=== PATIENT | male | born 1960 | race Caucasian/White ===

== ENCOUNTER 2023-06-02 08:55 | Outpatient (OUT) | payer SELFPAY ==
[2023-06-02 09:45] LABS: Hematocrit 50.1 % (42.0-54.0); Hemoglobin 16.5 g/dL (14.0-18.0)
[2023-06-02 14:01] LABS: Prostate Specific Antigen Scrn 1.27 ng/mL (<=4.00)
[2023-06-03 09:10] LABS: Testosterone 333 ng/dL (264-916)
== END 2023-06-02 08:56 | disposition home or self-care (01) ==
PROVIDERS: PCP Family Medicine; Visit Provider Urology
DX: E29.1 Testicular hypofunction (principal); Z12.5 Encounter for screening for malignant neoplasm of prostate
CPT/HCPCS: 36415; 84403; 85014; 85018; G0103

== ENCOUNTER 2023-08-06 10:27 | Outpatient (OUT) | payer OTHER, SELFPAY ==
[2023-08-06 11:34] LABS: Estimated Average Glucose 243 mg/dL; Glycohemoglobin A1C 10.1 % (4.5-6.2)
== END 2023-08-06 10:28 | disposition home or self-care (01) ==
LOC: LAB 10:29
PROVIDERS: PCP Family Medicine; Visit Provider Family Medicine
DX: E11.65 Type 2 diabetes mellitus with hyperglycemia (principal)
CPT/HCPCS: 36415; 83036

== ENCOUNTER 2023-12-01 06:28 | Outpatient (OUT) | payer OTHER, SELFPAY ==
--- OUTSIDE RECORDS SUMMARY | 2023-12-01 06:32 | XMS_ITS | CCD ---
Author Organization [facility] Care Team Providers Care Softball Coach Name Role Phone UNKNOWN, PROVIDER Unavailable Unavailable DASIA JEFFREY Unavailable Unavailable DASIA JEFFREY Primary Care Physician Unavailable Unavailable Dasia Jeffrey Unavailable Dasia Jeffrey Unavailable DR DASIA JEFFREY Admitting Unavailable JEFFREY, DR DASIA Yost Attending Unavailable JEFFREY, DR DASIA Yost Consulting Unavailable WOJCIECH, DR DASIA Yost Primary Care Unavailable JEFFREY, DR DASIA Yost Admitting Unavailable JEFFREY, DR DASIA Yost Attending Unavailable JEFFREY, DR DASIA Yost Consulting Unavailable JEFFREY, DR DASIA Yost Primary Care Unavailable JEFFREY, DR DASIA Yost Primary Care Unavailable LUE .LETY Admitting Unavailable LUE .LETY Attending Unavailable LUE .LETY Consulting Unavailable WOJCIECH, DR DASIA Yost Primary Care Unavailable LUE .LETY Admitting Unavailable LUE .LETY Attending Unavailable LUE .LETY Consulting Unavailable WOJCIECH, DR DASIA Yost Admitting Unavailable JEFFREY, DR DASIA Yost Attending Unavailable JEFFREY, DR DASIA Yost Consulting Unavailable WOJCIECH, DR DASIA Yost Primary Care Unavailable MARKER ., DR EDDY Admitting Unavailable MARKER ., DR EDDY Attending Unavailable MARKER ., DR EDDY Consulting Unavailable WOJCIECH, DR DASIA Yost Primary Care Unavailable CARLY PRESCOTT Consulting Unavailable GILDARDO .DR WILLIAMSON Consulting Unavailable WOJCIECH, DR DASIA Yost Primary Care Unavailable SHAIKH Aden BRICEÑO Admitting Unavailable SHAIKH Aden BRICEÑO Attending Unavailable CORINNE .QUENTIN Consulting UnavailTEVIN Vigil Consulting Unavailable SHAIKH Aden BRICEÑO Consulting Unavailable NAM CANO Admitting Unavailable WOJCIECH, DR DASIA Yost Primary Care Unavailable NAM CANO Attending Unavailable Gabino Deluca Attending Unavailable Gabino Deluca Attending Unavailable Gabino Deluca Referring Unavailable Dr. Dasia Jeffrey Primary Care Unav ailable Lue, Lety M. Attending Unavailable JIMMY, HARRY E Attending Unavailable JIMMY, HARRY E Attending Unavailable Lue, Lety M. Attending Unavailable Lue, Lety M. Attending Unavailable Lue, Lety M. Attending Unavailable Lue, Lety M. Attending Unavailable Lue, Lety M. Attending Unavailable Lue, Lety M. Attending Unavailable Lue, Lety M. Attending Unavailable Lue, Lety M. Attending Unavailable Lue, Lety M. Attending Unavailable Lue, Lety M. Attending Unavailable Lue, Lety M. Attending Unavailable Lue, Lety M. Attending Unavailable Lue, Lety M. Attending Unavailable Lue, Lety M. Attending Unavailable Lue, Lety M. Attending Unavailable Lue, Lety M. Attending Unavailable Lue, Lety M. Attending Unavailable Lue, Lety M. Admitting Unavailable Lue, Lety M. Attending Unavailable Lue, Lety M. Admitting Unavailable Lue, Lety M. Attending Unavailable Lue, Lety M. Attending Unavailable Lue, Lety M. Attending Unavailable Lue, Lety M. Attending Unavailable Lue, Lety M. Attending Unavailable JIMMY, HARRY E Attending Unavailable Lue, Lety M. Attending Unavailable Lue, Lety M. Attending Unavailable JIMMY, HARRY E Attending Unavailable Lue, Lety M. Attending Unavailable Lue, Lety M. Attending Unavailable Allergies Allergy Classification Reported Allergen(s) Allergy Type Date of Onset Reaction(s) Facility (20 sources) metFORMIN; Translations: [metformin] Drug Allergy 5 Stomach cramps (finding), Diarrhea (finding) [facility] (9 sources) Vancomycin Drug Allergy 4 Unknown, Unknown Reaction [facility] (1 source) metFORMIN Drug Allergy [facility] (1 source) Vancomycin Drug Allergy 8 [facility] (5 sources) Allergies Reconciled Propensity to adverse reactions 1 Unknown [facility] Other (5 sources) patient allergy list reviewed by nurse or physicia Propensity to adverse reactions 9 Comment:Done [facility] Other Medications Current Medications Medication Drug Class(es) Dates Sig (Normalized) Sig (Original) amLODIPine 5 mg oral tablet (20 sources) Dihydropyridine Calcium Channel Donovan Start: 05-15-2019 take 1 mg by mouth once daily amLODIPine 5 mg Tab mg tab(s), Oral, Daily, Refills(s) 0 Start Date: 07/03/21 Status: Ordered ascorbic acid 250 mg oral tablet (3 sources) Vitamin C Start: 07-03-2021 take 1 mg by mouth once daily Vitamin C 250 mg oral tablet mg tab(s), Oral, Daily, Refills(s) 0 Start Date: 07/03/21 Status: Ordered aspirin 162 mg oral tablet (10 sources) Platelet Aggregation Inhibitor, Nonsteroidal Anti-inflammatory Drug Start: 05-13-2019 take 162 mg by mouth once daily Aspirin Active 162 MG PO Daily May 13, 2019 12:00am take 2 tablets by [facility] every twenty-four hours Aspirin 81 MG 2 tablets Orally Once a day Active take 2 tablets by mouth once louise ly Aspirin EC Low Dose 81 MG Oral Tablet Delayed Release TAKE 2 TABLET Daily Quantity: 90 Refills: 3 Ordered: 22-Dec-2022 Gabino Deluca DO Active atorvastatin 10 mg oral tablet (20 sources) HMG-CoA Reductase Inhibitor Start: 07-03-2021 take 1 mg by mouth once daily atorvastatin 10 mg Tab mg tab(s), Oral, Daily, Refills(s) 0 Start Date: 07/03/21 Status: Ordered biotin 1 mg oral tablet (20 sources) Start: 07-03-2021 take 1 tablet by mouth once daily biotin 1000 mcg oral tablet 1,000 mcg = 1 tab(s), Oral, Daily, # 30 tab(s), Refills(s) 0 Start Date: 07/03/21 Status: Ordered carvedilol 12.5 mg oral tablet (20 sources) alpha-Adrenergic Donovan, beta-Adrenergic Donovan Start: 05-13-2019 take 1 mg by mouth twice daily carvedilol 12.5 mg Tab mg tab(s), Oral, BID, Refills(s) 0 Start Date: 07/03/21 Status: Ordered Citalopram (20 sources) Serotonin Reuptake Inhibitor Start: 07-03-2021 citalopram Oral, Daily, Refills(s) 0 Start Date: 07/03/21 Status: Ordered Start: 05-13-2019 take 1 tablet by jazmín th at bedtime Citalopram Active 1 TAB PO Bedtime May 13, 2019 12:00am take 1 tablet by jazmín th once daily Citalopram Hydrobromide 40 MG TAKE 1 TABLET BY MOUTH EVERY DAY for 90 Active empagliflozin 25 mg oral tablet (18 sources) Sodium-Glucose Cotransporter 2 Inhibitor Start: 04-01-2023 Jardiance 25 mg oral tablet Refills(s) 0 Start Date: 06/09/23 Status: Ordered ertugliflozin 15 mg oral tablet (20 sources) Start: 07-03-2021 take 1 mg by mouth once daily in the morning Steglatro 15 mg oral tablet mg tab(s), Oral, qAM, Refills(s) 0 Start Date: 07/03/21 Status: Ordered glipiZIDE (20 sources) Sulfonylurea Start: 11-05-2023 take 1 tablet by mouth once daily Glipizide Active 0 .ROUTE .COMPLEX 90 November 05, 2023 4:00pm TAKE 1 TABLET BY MOUTH EVERY DAY Start: 07-03-2021 take 1 mg by mouth once daily glipiZIDE 5 mg Tab mg tab(s), Oral, Daily, Refills(s) 0 Start Date: 07/03/21 Status: Ordered Start: 05-13-2019 End: 11-05-2023 take 1 tablet by mouth once daily Glipizide Discontinued 1 TAB PO Daily May 13, 2019 12:00am November 05, 2023 4:00pm take 1 tablet by jazmín th once daily glipiZIDE ER 10 MG TAKE 1 TABLET BY MOUTH EVERY DAY for 90 Active 12 hr hyoscyamine sulfate 0.375 mg extended release oral tablet (9 sources) Start: 12-03-2020 take 1 tablet by mouth every twelve hours Hyoscyamine Sulfate ER 0.375 MG 1 tablet Orally every 12 hrs for 30 day(s) Nov, Active lisinopril 5 mg oral tablet (20 sources) Angiotensin Converting Enzyme Inhibitor Start: 07-03-2021 take 1 mg by mouth once daily lisinopril 5 mg Tab mg tab(s), Oral, Daily, Refills(s) 0 Start Date: 07/03/21 Status: Ordered Start: 05-13-2019 End: 10-20-2023 take 5 mg by mouth twice daily Lisinopril Active 5 MG PO Twice daily 180 October 20, 2023 10:49am omeprazole 40 mg delayed release oral capsule (20 sources) Proton Pump Inhibitor Start: 11-26-2023 End: 11-30-2023 take 1 capsule by mouth once daily before mealtime Omeprazole Active 0 .ROUTE .COMPLEX 30 November 30, 2023 9:17am TAKE 1 CAPSULE BY MOUTH EVERY DAY BEFORE A MEAL Start: 07-03-2021 End: 11-26-2023 take 40 mg by mouth once daily Omeprazole Discontinued 40 MG PO Daily November 25, 2023 12:00am November 26, 2023 12:09pm omeprazole 40 mg Cap-DR (3 sources) Start: 07-03-2021 take 1 mg by mouth once daily omeprazole 40 mg Cap-DR mg cap(s), Oral, Daily, Refills(s) 0 Start Date: 07/03/21 Status: Ordered One Touch Glucometer (8 sources) Start: 11-25-2022 One Touch Glucometer use as directed Nov, Active pioglitazone 15 mg oral tablet (9 sources) Peroxisome Proliferator Receptor alpha Agonist, Peroxisome Proliferator Receptor gamma Agonist, Thiazolidinedione Start: 12-09-2022 take 1 tablet by mouth every twenty-four hours Actos 15 MG 1 tablet Orally Once a day for 30 days Dec, Active take 1 tablet by jazmín th every twenty-four hours Pioglitazone HCl 30 MG 1 tablet Orally Once a day for 30 days Active testosterone cypionate 200 mg/ml injectable solution (13 sources) Androgen Start: 06-09-2023 inject 200 mg by intramuscular injection every other week Depo-Testosterone 200 mg/mL intramuscular solution 200 mg, IntraMuscular, q2wk, # 10 mL, Refills(s) 5, Pharmacy: [facility]/pharmacy #[id number], 174, cm, 06/09/23 7:58:00 EDT, Height/Length Dosing, 143, kg, 06/09/23 7:58:00 EDT, Weight Dosing Start Date: 06/09/23 Status: Ordered testosterone cypionate 200 mg/mL IM Erin (15 sources) Start: 03-30-2023 inject 150 mg by intramuscular injection every other week testosterone cypionate 200 mg/mL IM Erin 150 mg, IntraMuscular, q2wk, # 10 mL, Refills(s) 0, Pharmacy: [facility]/pharmacy #[id number], 175, cm, 03/03/23 9:34:00 EDT, Height/Length Dosing, 144.7, kg, 03/03/23 9:34:00 EDT, Weight Dosing Start Date: 03/30/23 Status: Ordered Start: 11-25-2022 inject 150 mg by int ramuscular injection every other week testosterone cypionate 200 mg/mL IM Erin 150 mg, IntraMuscular, q2wk, # 10 mL, Refills(s) 0 Start Date: 11/25/22 Status: Ordered testosterone cypionate 200 mg/mL intramuscular solution (11 sources) Start: 05-27-2022 inject 200 mg by intramuscular injection every other week testosterone cypionate 200 mg/mL intramuscular solution 200 mg = 1 mL, IntraMuscular, q2wk, # 1 mL, Refills(s) 5, Pharmacy: [facility]/pharmacy #[id number], 175, cm, 05/27/22 8:55:00 EDT, Height/Length Dosing, 142.9, kg, 05/27/22 8:55:00 EDT, Weight Dosing Start Date: 05/27/22 Status: Ordered Start: 01-05-2022 testosterone c ypionate 200 mg/mL intramuscular solution 200 mg = 1 mL, IntraMuscular, q4wk, # 1 mL, Refills(s) 5, Pharmacy: [facility]/pharmacy #[id number], 175, cm, 11/11/21 8:23:00 EST, Height/Length Dosing, 142.9, kg, 11/11/21 8:23:00 EST, Weight Dosing Start Date: 01/05/22 Status: Ordered Start: 07-07-2021 testosterone c ypionate 200 mg/mL intramuscular solution 200 mg = 1 mL, IntraMuscular, q4wk, # 1 mL, Refills(s) 5, Pharmacy: [facility]/pharmacy #[id number], 175, cm, 07/03/21 9:23:00 EDT, Height/Length Dosing, 136.5, kg, 07/03/21 9:23:00 EDT, Weight Dosing Start Date: 07/07/21 Status: Ordered Testosterone Cypionate 200 mg/mL intramuscular solution (8 sources) Start: 09-23-2022 inject 100 mg by intramuscular injection every other week Testosterone Cypionate 200 mg/mL intramuscular solution 100 mg, IntraMuscular, q2wk, # 10 mL, Refills(s) 0, Pharmacy: [facility]/pharmacy #[id number], 175, megan, 09/09/22 10:01:00 EST, Height/Length Dosing, 139, kg, 09/09/22 10:01:00 EST, Weight Dosing Start Date: 09/23/22 Status: Ordered Vitamin B12 1000 mcg Tab (20 sources) Start: 07-03-2021 take 1 ug by mouth once daily Vitamin B12 1000 mcg Tab mcg tab(s), Oral, Daily, Refills(s) 0 Start Date: 07/03/21 Status: Ordered Vitamin C 250 mg oral tablet (20 sources) Start: 07-03-2021 take 1 mg by mouth once daily Vitamin C 250 mg oral tablet mg tab(s), Oral, Daily, Refills(s) 0 Start Date: 07/03/21 Status: Ordered Completed/Discontinued Medications Medication Drug Class(es) Dates Sig (Normalized) Sig (Original) sildenafil 100 mg oral tablet (7 sources) Phosphodiesterase 5 Inhibitor Start: 03-17-2023 take 1 tablet by mouth every twenty-four hours as needed Viagra 100 mg Tab 100 mg = 1 tab(s), Oral, As Directed, PRN for erectile dysfunction, 1 hour before sexual activity. Start with 1/2 tablet. Not to exceed 1 tab (100 mg) in 24 hours, # 30 tab(s), Refills(s) 5, Pharmacy: [facility] #[id number], 175, cm, 03/03/23 9:34... Start Date: 03/17/23 Status: Ordered Start: 03-03-2023 take 1 tablet by jazmín th every twenty-four hours as needed Viagra 100 mg Tab 100 mg = 1 tab(s), Oral, As Directed, PRN for erectile dysfunction, 1 hour before sexual activity. Start with 1/2 tablet. Not to exceed 1 tab (100 mg) in 24 hours, # 30 tab(s), Refills(s) 5, Pharmacy: [facility]/pharmacy #[id number], 175, cm, 03/03/23 9:34:00 EDT,... Start Date: 03/03/23 Status: Ordered tadalafil 20 mg oral tablet (13 sources) Phosphodiesterase 5 Inhibitor Start: 09-15-2023 take 1 tablet by mouth every hour as needed, then take 1 tablet by mouth every twenty-four hours as needed Cialis 20 mg Tab 20 mg = 1 tab(s), Oral, As Directed, PRN for erectile dysfunction, Take 1 tab 1 hour prior to intercourse. Do not exceed 20mg within 24 hours., # 30 tab(s), Refills(s) 3, Pharmacy: [facility] #[id number], 174, cm, 09/15/23 8:08:00 EST, Height/Length Dosing, 143, kg, 09/15/23 8:08:00 EST, Weight Dosing Start Date: 09/15/23 Status: Ordered Start: 06-09-2023 Cialis 20 mg T ab 20 mg = 1 tab(s), Oral, As Directed, PRN for erectile dysfunction, Do not exceed 20mg within 24 hours., # 30 tab(s), Refills(s) 3, Pharmacy: [facility]/pharmacy #[id number], 174, cm, 06/09/23 7:58:00 EDT, Height/Length Dosing, 143, kg, 06/09/23 7:58:00 EDT, Weight Dosing Start Date: 06/09/23 Status: Ordered Problems Active Problems Problem Classification Problem Date Documented Date Episodic/Chronic Abdominal pain (20 sources) Lower abdominal pain; Translations: [Lower abdominal pain, unspecified] Onset: 08-04-2022 Episodic Acquired foot deformities (5 sources) Acquired deformity of toe of right foot; Translations: [Other deformities of toe(s) (acquired), right foot] Episodic Cardiac dysrhythmias (5 sources) Cardiac arrhythmia; Translations: [Cardiac arrhythmia, unspecified] Chronic Chronic kidney disease (5 sources) Chronic kidney disease stage 3; Translations: [Chronic kidney disease, stage 3 unspecified] Onset: 04-20-2018 Chronic Chronic obstructive pulmonary disease and bronchiectasis (5 sources) Bronchitis; Translations: [Bronchitis, not specified as acute or chronic] Episodic Chronic ulcer of skin (20 sources) Chronic ulcer of foot; Translations: [Non-pressure chronic ulcer of other part of unspecified foot with unspecified severity] Onset: 03-08-2018 Chronic Congestive heart failure; nonhypertensive (9 sources) Heart failure, unspecified; Translations: [Heart failure] Onset: 04-15-2022 Chronic Coronary atherosclerosis and other heart disease (20 sources) Atherosclerotic heart disease of grayling coronary artery without angina pectoris; Translations: [Double coronary vessel disease] Onset: 12-12-2014 05-13-2019 Chronic Coronary atherosclerosis and other heart disease (1 source) Coronary atherosclerosis and other heart disease Onset: 07-14-2018 Diabetes mellitus with complications (20 sources) Type 2 diabetes mellitus with ulcer; Translations: [Type 2 diabetes mellitus with foot ulcer] Onset: 04-20-2018 Chronic Diabetes mellitus without complication (20 sources) Diabetes mellitus; Translations: [Diabetes mellitus without mention of complication, type II or unspecified type, not stated as uncontrolled] Onset: 03-08-2018 05-13-2019 Chronic Disorders of lipid metabolism (15 sources) Hyperlipidemia; Translations: [Other and unspecified hyperlipidemia] Onset: 01-26-2022 Chronic Esophageal disorders (7 sources) Gastroesophageal reflux disease without esophagitis; Translations: [Gastro-esophageal reflux disease without esophagitis] 11-30-2023 Chronic Essential hypertension (20 sources) Essential hypertension; Translations: [Unspecified essential hypertension] Onset: 07-13-2014 Chronic Essential hypertension (1 source) Essential hypertension Onset: 07-14-2018 Genitourinary symptoms and ill-defined conditions (20 sources) Nocturia; Translations: [Asymptomatic microscopic hematuria] Onset: 08-03-2022 07-03-2021 Episodic Hyperplasia of prostate (20 sources) Benign prostatic hypertrophy with outflow obstruction; Translations: [Benign prostatic hyperplasia with lower urinary tract symptoms] Onset: 08-19-2022 Chronic Malaise and fatigue (10 sources) Fatigue; Translations: [Other fatigue] Onset: 09-15-2018 Episodic Mood disorders (14 sources) Depression; Translations: [Major depressive disorder, single episode, unspecified] Onset: 05-01-2022 Chronic Nonspecific chest pain (1 source) Chest discomfort; Translations: [Other chest pain] 05-13-2019 Episodic Osteoarthritis (5 sources) Localized, primary osteoarthritis of the ankle and/or foot; Translations: [Primary osteoarthritis, right ankle and foot] Chronic Other circulatory disease (5 sources) Elevated blood-pressure reading without diagnosis of hypertension; Translations: [Elevated blood-pressure reading, without diagnosis of hypertension] Episodic Other connective tissue disease (5 sources) Disorder of musculoskeletal system; Translations: [Other symptoms and signs involving the musculoskeletal system] Episodic Other connective tissue disease (5 sources) Pain in left arm; Translations: [Pain in left arm] Episodic Other connective tissue disease (5 sources) Pain in right foot; Translations: [Pain in right foot] Episodic Other diseases of veins and lymphatics (1 source) Lymphedema, not elsewhere classified; Translations: [LYMPHEDEMA NOT ELSEWHERE CLASSIFIED] Onset: 01-26-2022 Chronic Other diseases of veins and lymphatics (13 sources) Peripheral venous insufficiency; Translations: [Venous insufficiency (chronic) (peripheral)] Onset: 04-20-2018 Episodic Other diseases of veins and lymphatics (2 sources) Venous insufficiency (chronic) (peripheral); Translations: [VENOUS INSUFF CHRONIC PERIPHERAL] Onset: 05-01-2022 Episodic Other endocrine disorders (20 sources) Testicular hypofunction; Translations: [Testicular hypofunction] Onset: 01-06-2022 Chronic Other endocrine disorders (20 sources) Male hypogonadism 09-02-2022 Chronic Other endocrine disorders (5 sources) Disorder of endocrine system; Translations: [Endocrine disorder, unspecified] Episodic Other injuries and conditions due to external causes (5 sources) History of fall; Translations: [History of falling] Episodic Other male genital disorders (20 sources) Male erectile dysfunction, unspecified; Translations: [Erectile dysfunction] Onset: 08-19-2022 Chronic Other nutritional; endocrine; and metabolic disorders (16 sources) Body mass index 40+ - severely obese; Translations: [Body Mass Index 40.0-44.9, adult] Onset: 04-20-2018 Chronic Other nutritional; endocrine; and metabolic disorders (11 sources) Morbid obesity; Translations: [Morbid obesity] 05-14-2019 Chronic Other nutritional; endocrine; and metabolic disorders (1 source) Morbid (severe) obesity due to excess calories; Translations: [MORBID SEVERE OBES D/T EXCESS DAVID] Onset: 08-07-2022 Chronic Other nutritional; endocrine; and metabolic disorders (1 source) Body mass index (BMI) 45.0-49.9, adult; Translations: [BODY MASS INDEX BMI 45.0-49.9 ADULT] Onset: 08-07-2022 Chronic Other nutritional; endocrine; and metabolic disorders (5 sources) Obesity; Translations: [Obesity, unspecified] Onset: 07-13-2014 Chronic Other screening for suspected conditions (not mental disorders or infectious disease) (20 sources) Decreased testosterone level ; Translations: [Blood chemistry abnormal] Onset: 03-03-2022 07-03-2021 Episodic Other skin disorders (5 sources) Callosity; Translations: [Corns and callosities] Episodic Residual codes; unclassified (5 sources) Obstructive sleep apnea syndrome; Translations: [Obstructive sleep apnea] Onset: 03-08-2018 Chronic Residual codes; unclassified (1 source) Sleep apnea; Translations: [Sleep apnea, unspecified] 05-14-2019 Chronic Residual codes; unclassified (8 sources) Edema; Translations: [Localized edema] Episodic Residual codes; unclassified (6 sources) Localized edema; Translations: [Localized edema] Onset: 02-24-2022 Episodic Residual codes; unclassified (5 sources) Tobacco user; Translations: [Tobacco use] Episodic Screening and history of mental health and substance abuse codes (20 sources) Ex-smoker; Translations: [Personal history of tobacco use] Onset: 04-20-2018 07-03-2021 Episodic Comment on above: quit 2012 1ppd; Spondylosis; intervertebral disc disorders; other back problems (5 sources) Neck pain; Translations: [Cervicalgia] Episodic Superficial injury; contusion (5 sources) Superficial foreign body, right foot, initial encounter; Translations: [Superficial foreign body, right foot, initial encounter] Episodic Unclassified (2 sources) Athscl heart disease of grayling coronary artery w/o ang pctrs / I25.10(ICD-9) Onset: 07-14-2018 Unclassified (20 sources) Asymptomatic microscopic hematuria 11-11-2021 Unclassified (1 source) CONTACT W/AND (SUSP) EXPOS COVID-19; Translations: [CONTACT W/AND (SUSP) EXPOS COVID-19] Onset: 05-01-2022 Varicose veins of lower extremity (5 sources) Pain co-occurrent and due to varicose veins of bilateral legs; Translations: [Varicose veins of bilateral lower extremities with pain] Episodic Viral infection (1 source) COVID-19; Translations: [COVID-19] Onset: 08-07-2022 Past or Other Problems Problem Classification Problem Date Documented Da te Episodic/Chronic Acute and unspecified renal failure (6 sources) Acute kidney failure, unspecified; Translations: [Acute renal failure syndrome] Onset: 03-15-2018 Episodic Bacterial infection; unspecified site (5 sources) Bacterial infectious disease; Translations: [Bacterial infection, unspecified, in conditions classified elsewhere and of unspecified site] Onset: 04-20-2018 Episodic Conditions associated with dizziness or vertigo (5 sources) Dizziness and giddiness; Translations: [Dizziness and giddiness] Onset: 04-24-2019 Episodic Coronary atherosclerosis and other heart disease (1 source) Presence of coronary angioplasty implant and graft; Translations: [PRESENCE COR ANGPLSTY IMPLANT AND GRAFT] Onset: 08-07-2022 Episodic Fluid and electrolyte disorders (1 source) Dehydration; Translations: [DEHYDRATION] Onset: 08-07-2022 Episodic Heart valve disorders (5 sources) O/E - cardiac murmur; Translations: [Cardiac murmur, unspecified] Onset: 09-15-2018 Episodic Nausea and vomiting (1 source) Nausea with vomiting, unspecified; Translations: [NAUSEA WITH VOMITING UNSPECIFIED] Onset: 08-07-2022 Episodic Nonmalignant breast conditions (5 sources) Breast lump; Translations: [Unspecified lump in unspecified breast] Onset: 12-12-2014 Episodic Other aftercare (1 source) alf (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; Translations: [DETENTION CURRENT USE OF ASPIRIN] Onset: 08-07-2022 Episodic Other aftercare (1 source) 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 drugs; Translations: [PARTS ANALYST USE ORAL HYPOGLYCEMIC DX] Onset: 08-07-2022 Episodic Other aftercare (1 source) Other senior living (current) drug therapy; Translations: [OTH DETENTION CURRENT DRUG THERAPY] Onset: 05-01-2022 Episodic Other gastrointestinal disorders (1 source) Diarrhea, unspecified; Translations: [DIARRHEA UNSPECIFIED] Onset: 08-07-2022 Episodic Other gastrointestinal disorders (5 sources) Diarrhea; Translations: [Diarrhea, unspecified] Onset: 01-04-2014 Episodic Other lower respiratory disease (1 source) Personal history of pneumonia (recurrent); Translations: [PERSONAL HX OF PNEUMONIA RECURRENT] Onset: 08-07-2022 Episodic Other skin disorders (1 source) Nail dystrophy; Translations: [NAIL DYSTROPHY] Onset: 01-26-2022 Episodic Other skin disorders (1 source) Corns and callosities; Translations: [CORNS AND CALLOSITIES] Onset: 01-26-2022 Episodic Other skin disorders (1 source) Xerosis cutis; Translations: [XEROSIS CUTIS] Onset: 01-26-2022 Episodic Other skin disorders (5 sources) Hypertrophic condition of skin; Translations: [Other hypertrophic disorders of the skin] Onset: 10-26-2013 Episodic Septicemia (except in labor) (2 sources) Sepsis, unspecified organism; Translations: [Severe sepsis without septic shock] Onset: 05-01-2022 Episodic Skin and subcutaneous tissue infections (14 sources) Cellulitis of right lower limb; Translations: [Cellulitis and abscess of buttock] Onset: 10-02-2014 Episodic Results Test Name Value Interpretation Reference Range Facil ity Ambulatory Visit Summaryon 0 11-30-2023 Ambulatory Visit Summary JOHNATHAN AMBROSIO :1960 Visit Date:11/30/2023 Ambulatory Visit Instructions Your Diagnosis Hypogonadism male Your Care Team Attending Physician - JIMMY GRIFFITH, HARRY Yost Primary Care Physician - DASIA JEFFREY MD This Is Your Medications List amlodipine (amLODIPine 5 mg Tab) ascorbic acid (Vitamin C 250 mg oral tablet) atorvastatin (atorvastatin 10 mg Tab) biotin (biotin 1000 mcg oral tablet) carvedilol (carvedilol 12.5 mg Tab) citalopram cyanocobalamin (Vitamin B12 1000 mcg Tab) empagliflozin (Jardiance 25 mg oral tablet) ertugliflozin (Steglatro 15 mg oral tablet) glipiZIDE (glipiZIDE 5 mg Tab) lisinopril (lisinopril 5 mg Tab) omeprazole (omeprazole 40 mg Cap-DR) tadalafil (Cialis 20 mg Tab) testosterone (Depo-Testosterone 200 mg/mL intramuscular solution) Procedures Performed Aortic stent, Big toe, Tonsillectomy. What to do next Scheduled Follow-Up Appointments Wednesday 8:30 AM EDT With: Where: [facility] [address] [place] [address]- \.br\ Medications\.br\ What How Much When Why Instructions\.br\ Unchanged amlodipine (amLODIPine 5 mg Tab) By Mouth Every day\.br\ Unchanged ascorbic acid (Vitamin C 250 mg oral tablet) By Mouth Every day\.br\ Unchanged atorvastatin (atorvastatin 10 mg Tab) By Mouth Every day\.br\ Unchanged biotin (biotin 1000 mcg oral tablet) 1 Tablets By Mouth Every day\.br\ Unchanged carvedilol (carvedilol 12.5 mg Tab) By Mouth 2 times a day\.br\ Unchanged citalopram By Mouth Every day\.br\ Unchanged cyanocobalamin (Vitamin B12 1000 mcg Tab) By Mouth Every day\.br\ Unchanged empagliflozin (Jardiance 25 mg oral tablet)\.br\ Unchanged ertugliflozin (Steglatro 15 mg oral tablet) By Mouth Once a day (in the morning)\.br\ Unchanged glipiZIDE (glipiZIDE 5 mg Tab) By Mouth Every day\.br\ Unchanged lisinopril (lisinopril 5 mg Tab) By Mouth Every day\.br\ Unchanged omeprazole (omeprazole 40 mg Cap-DR) By Mouth Every day\.br\ Unchanged tadalafil (Cialis 20 mg Tab) 1 Tablets By Mouth As Directed as needed for for erectile dysfunction Take 1 tab 1 hour prior to intercourse. Do not exceed 20mg within 24 hours. \.br\ Unchanged testosterone (Depo-Testosteron e 200 mg/ mL intramuscular solution) 200 Milligram Intramuscular Every other week Hypogonadism male ED (erectile dysfunction)\.br\ Medications and Immunizations Administered\.br\ Given\.br\ Depo-Testosterone 200 mg/mL intramuscular solution, 200 mg, IntraMuscular. For: Hypogonadism male\.br\ Allergies\.br\ metFORMIN (Stomach cramps, Diarrhea)\.br\ Problems\.br\ Ongoing - Any problem that you are currently receiving treatment for.\.br\ Asymptomatic microscopic hematuria\.br\ BPH without urinary obstruction\.br\ ED (erectile dysfunction)\.br\ Former smoker\.br\ Groin pain\.br\ Hypogonadism male\.br\ Low testosterone\.br\ Nocturia\.br\ Patient Survey\.br\ You may receive a survey via text or e-mail asking about your office visit. Please share your experience with us by completing your survey. We appreciate your feedback and thank you for choosing us for your care.\.br\ \.br\ [facility] Ambulatory Visit Summaryon 0 11-16-2023 Ambulatory Visit Summary JOHNATHAN AMBROSIO :1960 Visit Date:11/16/2023 Ambulatory Visit Instructions Your Diagnosis Hypogonadism male Your Care Team Attending Physician - Carlos LIZAMA, Lety Scott Primary Care Physician - WOJCIECH LIZAMA, DASIA This Is Your Medications List amlodipine (amLODIPine 5 mg Tab) ascorbic acid (Vitamin C 250 mg oral tablet) atorvastatin (atorvastatin 10 mg Tab) biotin (biotin 1000 mcg oral tablet) carvedilol (carvedilol 12.5 mg Tab) citalopram cyanocobalamin (Vitamin B12 1000 mcg Tab) empagliflozin (Jardiance 25 mg oral tablet) ertugliflozin (Steglatro 15 mg oral tablet) glipiZIDE (glipiZIDE 5 mg Tab) lisinopril (lisinopril 5 mg Tab) omeprazole (omeprazole 40 mg Cap-DR) tadalafil (Cialis 20 mg Tab) testosterone (Depo-Testosterone 200 mg/mL intramuscular solution) Procedures Performed Aortic stent, Big toe, Tonsillectomy. What to do next Scheduled Follow-Up Appointments Wednesday 8:00 AM EDT With: Where: [facility] [address] [place] [id number] \.br\ Medications\.br\ What How Much When Why Instructions\.br\ Unchanged amlodipine (amLODIPine 5 mg Tab) By Mouth Every day\.br\ Unchanged ascorbic acid (Vitamin C 250 mg oral tablet) By Mouth Every day\.br\ Unchanged atorvastatin (atorvastatin 10 mg Tab) By Mouth Every day\.br\ Unchanged biotin (biotin 1000 mcg oral tablet) 1 Tablets By Mouth Every day\.br\ Unchanged carvedilol (carvedilol 12.5 mg Tab) By Mouth 2 times a day\.br\ Unchanged citalopram By Mouth Every day\.br\ Unchanged cyanocobalamin (Vitamin B12 1000 mcg Tab) By Mouth Every day\.br\ Unchanged empagliflozin (Jardiance 25 mg oral tablet)\.br\ Unchanged ertugliflozin (Steglatro 15 mg oral tablet) By Mouth Once a day (in the morning)\.br\ Unchanged glipiZIDE (glipiZIDE 5 mg Tab) By Mouth Every day\.br\ Unchanged lisinopril (lisinopril 5 mg Tab) By Mouth Every day\.br\ Unchanged omeprazole (omeprazole 40 mg Cap-DR) By Mouth Every day\.br\ Unchanged tadalafil (Cialis 20 mg Tab) 1 Tablets By Mouth As Directed as needed for for erectile dysfunction Take 1 tab 1 hour prior to intercourse. Do not exceed 20mg within 24 hours. \.br\ Unchanged testosterone (Depo-Testosteron e 200 mg/ mL intramuscular solution) 200 Milligram Intramuscular Every other week Hypogonadism male ED (erectile dysfunction)\.br\ Medications and Immunizations Administered\.br\ Given\.br\ Depo-Testosterone 200 mg/mL intramuscular solution, 200 mg, IntraMuscular. For: Hypogonadism male\.br\ Allergies\.br\ metFORMIN (Stomach cramps, Diarrhea)\.br\ Problems\.br\ Ongoing - Any problem that you are currently receiving treatment for.\.br\ Asymptomatic microscopic hematuria\.br\ BPH without urinary obstruction\.br\ ED (erectile dysfunction)\.br\ Former smoker\.br\ Groin pain\.br\ Hypogonadism male\.br\ Low testosterone\.br\ Nocturia\.br\ Patient Survey\.br\ You may receive a survey via text or e-mail asking about your office visit. Please share your experience with us by completing your survey. We appreciate your feedback and thank you for choosing us for your care.\.br\ \.br\ [facility] Ambulatory Visit Summaryon 0 10-20-2023 Ambulatory Visit Summary JOHNATHAN AMBROSIO :1960 Visit Date:10/20/2023 Ambulatory Visit Instructions Your Diagnosis Hypogonadism male Your Care Team Attending Physician - Carlos LIZAMA, Lety Scott Primary Care Physician - DASIA JEFFREY MD This Is Your Medications List amlodipine (amLODIPine 5 mg Tab) ascorbic acid (Vitamin C 250 mg oral tablet) atorvastatin (atorvastatin 10 mg Tab) biotin (biotin 1000 mcg oral tablet) carvedilol (carvedilol 12.5 mg Tab) citalopram cyanocobalamin (Vitamin B12 1000 mcg Tab) empagliflozin (Jardiance 25 mg oral tablet) ertugliflozin (Steglatro 15 mg oral tablet) glipiZIDE (glipiZIDE 5 mg Tab) lisinopril (lisinopril 5 mg Tab) omeprazole (omeprazole 40 mg Cap-DR) tadalafil (Cialis 20 mg Tab) testosterone (Depo-Testosterone 200 mg/mL intramuscular solution) Procedures Performed Aortic stent, Big toe, Tonsillectomy. What to do next Scheduled Follow-Up Appointments Wednesday 8:00 AM EST With: Where: [facility] [address] [facility] [place] [address] \.br\ Medications\.br\ What How Much When Why Instructions\.br\ Unchanged amlodipine (amLODIPine 5 mg Tab) By Mouth Every day\.br\ Unchanged ascorbic acid (Vitamin C 250 mg oral tablet) By Mouth Every day\.br\ Unchanged atorvastatin (atorvastatin 10 mg Tab) By Mouth Every day\.br\ Unchanged biotin (biotin 1000 mcg oral tablet) 1 Tablets By Mouth Every day\.br\ Unchanged carvedilol (carvedilol 12.5 mg Tab) By Mouth 2 times a day\.br\ Unchanged citalopram By Mouth Every day\.br\ Unchanged cyanocobalamin (Vitamin B12 1000 mcg Tab) By Mouth Every day\.br\ Unchanged empagliflozin (Jardiance 25 mg oral tablet)\.br\ Unchanged ertugliflozin (Steglatro 15 mg oral tablet) By Mouth Once a day (in the morning)\.br\ Unchanged glipiZIDE (glipiZIDE 5 mg Tab) By Mouth Every day\.br\ Unchanged lisinopril (lisinopril 5 mg Tab) By Mouth Every day\.br\ Unchanged omeprazole (omeprazole 40 mg Cap-DR) By Mouth Every day\.br\ Unchanged tadalafil (Cialis 20 mg Tab) 1 Tablets By Mouth As Directed as needed for for erectile dysfunction Take 1 tab 1 hour prior to intercourse. Do not exceed 20mg within 24 hours. \.br\ Unchanged testosterone (Depo-Testosteron e 200 mg/ mL intramuscular solution) 200 Milligram Intramuscular Every other week Hypogonadism male ED (erectile dysfunction)\.br\ Medications and Immunizations Administered\.br\ Given\.br\ Depo-Testosterone 200 mg/mL intramuscular solution, 200 mg, IntraMuscular. For: Hypogonadism male\.br\ Allergies\.br\ metFORMIN (Stomach cramps, Diarrhea)\.br\ Problems\.br\ Ongoing - Any problem that you are currently receiving treatment for.\.br\ Asymptomatic microscopic hematuria\.br\ BPH without urinary obstruction\.br\ ED (erectile dysfunction)\.br\ Former smoker\.br\ Groin pain\.br\ Hypogonadism male\.br\ Low testosterone\.br\ Nocturia\.br\ Patient Survey\.br\ You may receive a survey via text or e-mail asking about your office visit. Please share your experience with us by completing your survey. We appreciate your feedback and thank you for choosing us for your care.\.br\ \.br\ [facility] Ambulatory Visit Summaryon 0 09-29-2023 Ambulatory Visit Summary HEBERT JOHNATHAN Valentino :1960 Visit Date:09/29/2023 Ambulatory Visit Instructions Your Diagnosis ED (erectile dysfunction) Your Care Team Attending Physician - Carlos LIZAMA, Lety Scott Primary Care Physician - WOJCIECH LIZAMA, DASIA This Is Your Medications List amlodipine (amLODIPine 5 mg Tab) ascorbic acid (Vitamin C 250 mg oral tablet) atorvastatin (atorvastatin 10 mg Tab) biotin (biotin 1000 mcg oral tablet) carvedilol (carvedilol 12.5 mg Tab) citalopram cyanocobalamin (Vitamin B12 1000 mcg Tab) empagliflozin (Jardiance 25 mg oral tablet) ertugliflozin (Steglatro 15 mg oral tablet) glipiZIDE (glipiZIDE 5 mg Tab) lisinopril (lisinopril 5 mg Tab) omeprazole (omeprazole 40 mg Cap-DR) tadalafil (Cialis 20 mg Tab) testosterone (Depo-Testosterone 200 mg/mL intramuscular solution) Procedures Performed Aortic stent, Big toe, Tonsillectomy. What to do next Scheduled Follow-Up Appointments Wednesday 10:00 AM EDT With: Lety Gonzalez MD Where: [facility] Ambulatory Visit Summaryon 0 09-15-2023 Ambulatory Visit Summary JOHNATHAN AMBROSIO :1960 Visit Date:09/15/2023 Ambulatory Visit Instructions Your Diagnosis Hypogonadism male ED (erectile dysfunction) BPH without urinary obstruction Tests Performed Urnls Dip Stick Auto w/o Microscopy POC 94844 Your Care Team Attending Physician - Lety Gonzalez MD Primary Care Physician - DASIA JEFFREY MD This Is Your Medications List tadalafil (Cialis 20 mg Tab) Contact prescribing physician if questions or concerns amlodipine (amLODIPine 5 mg Tab) ascorbic acid (Vitamin C 250 mg oral tablet) atorvastatin (atorvastatin 10 mg Tab) biotin (biotin 1000 mcg oral tablet) carvedilol (carvedilol 12.5 mg Tab) citalopram cyanocobalamin (Vitamin B12 1000 mcg Tab) empagliflozin (Jardiance 25 mg oral tablet) ertugliflozin (Steglatro 15 mg oral tablet) glipiZIDE (glipiZIDE 5 mg Tab) lisinopril (lisinopril 5 mg Tab) omeprazole (omeprazole 40 mg Cap-DR) testosterone (Depo-Testosterone 200 mg/mL intramuscular solution) Procedures Performed Aortic stent, Big toe, Tonsillectomy. Discharge Vitals Heart Rate (Peripheral) 75 Blood Pressure 118/77 Height 174 cm Height 69 in Weight 143 kg Weight 314.6 lb BMI 47.23 What to do next Scheduled Follow-Up Appointments Wednesday 8:00 AM EST With: Where: [facility] [address] [place] [address] [place] [address]- \.br\ You Need to Schedule the Following Appointments\.br\ Follow Up with Carlos LIZAMA, Lety Scott, URL, URO When: \.br\ Comments:\.br\ 3 mos w/ PSA, T level, and HCT\.br\ Where:\.br\ [address]br\ [place] [address]-\.br\ [id number]\.br\ You Need to Complete the Following\.br\ Hematocrit, Blood, Routine collect, 09/15/23, Order for future visit, Lab Collect, Hypogonadism male, Print Label By Order Location\.br\ PSA Screen, Total, Blood, Routine collect, *Est. 12/15/23 +/- 21 day(s), Order for future visit, Lab Collect, BPH without urinary obstruction, Print Label By Order Location\.br\ Testosterone Level Total, Blood, Routine collect, *Est. 12/15/23 +/- 21 day(s), Order for future visit, Lab Collect, Hypogonadism male, Print Label By Order Location\.br\ Medications\.br\ What How Much When Why Instructions\.br\ Changed tadalafil (Cialis 20 mg Tab) 1 Tablets By Mouth As Directed as needed for for erectile dysfunction Take 1 tab 1 hour prior to intercourse. Do not exceed 20mg within 24 hours. Pickup at [facility]\.br\ Unchanged amlodipine (amLODIPine 5 mg Tab) By Mouth Every day Contact prescribing physician if questions or concerns \.br\ Unchanged ascorbic acid (Vitamin C 250 mg oral tablet) By Mouth Every day Contact prescribing physician if questions or concerns \.br\ Unchanged atorvastatin (atorvastatin 10 mg Tab) By Mouth Every day Contact prescribing physician if questions or concerns \.br\ Unchanged biotin (biotin 1000 mcg oral tablet) 1 Tablets By Mouth Every day Contact prescribing physician if questions or concerns \.br\ Unchanged carvedilol (carvedilol 12.5 mg Tab) By Mouth 2 times a day Contact prescribing physician if questions or concerns \.br\ Unchanged citalopram By Mouth Every day Contact prescribing physician if questions or concerns \.br\ Unchanged cyanocobalamin (Vitamin B12 1000 mcg Tab) By Mouth Every day Contact prescribing physician if questions or concerns \.br\ Unchanged empagliflozin (Jardiance 25 mg oral tablet) Contact prescribing physician if questions or concerns \.br\ Unchanged ertugliflozin (Steglatro 15 mg oral tablet) By Mouth Once a day (in the morning) Contact prescribing physician if questions or concerns \.br\ Unchanged glipiZIDE (glipiZIDE 5 mg Tab) By Mouth Every day Contact prescribing physician if questions or concerns \.br\ Unchanged lisinopril (lisinopril 5 mg Tab) By Mouth Every day Contact prescribing physician if questions or concerns \.br\ Unchanged omeprazole (omeprazole 40 mg Cap-DR) By Mouth Every day Contact prescribing physician if questions or concerns \.br\ Unchanged testosterone (Depo-Testosteron e 200 mg/ mL intramuscular solution) 200 Milligram Intramuscular Every other week Hypogonadism male ED (erectile dysfunction) Contact prescribing physician if questions or concerns \.br\ Pharmacy Information\.br\ [facility]: [id number], [place] [id number] [phone]\.br\ Test Results\.br\ Urnls Dip Stick Auto w/o Microscopy POC 36352 (09/15/2023)\.br\ Bilirubin Urine Dipstick - Negative\.br\ Blood Urine Dipstick - Trace-intact\.br\ Glucose Urine Dipstick - 3+ 1000 mg/dl\.br\ Ketones Urine Dipstick - Negative\.br\ Leukocytes Urine Dipstick - Negative\.br\ Nitrite Urine Dipstick - Negative\.br\ Protein Urine Dipstick - Negative\.br\ Specific Melbeta Urine Dipstick - 1.015\.br\ Urine Appearance Urine Dipstick - Clear\.br\ Urine Color Urine Dipstick - Yellow\.br\ Urobilinogen Urine Dipstick - Normal 0.2-1 EU/dl\.br\ pH Urine Dipstick - 5.5\.br\ Medications and Immunizations Administered\.br\ Given\.br\ Depo-Testosterone 200 mg/mL intramuscular solution, 200 mg, IntraMuscular. For: Hypogonadism male\.br\ Not Given\.br\ influenza virus vaccine, inactivated, Patient Refuses\.br\ Allergies\.br\ metFORMIN (Stomach cramps, Diarrhea)\.br\ Problems\.br\ Ongoing - Any problem that you are currently receiving treatment for.\.br\ Asymptomatic microscopic hematuria\.br\ BPH without urinary obstruction\.br\ ED (erectile dysfunction)\.br\ Former smoker\.br\ Groin pain\.br\ Hypogonadism male\.br\ Low testosterone\.br\ Nocturia\.br\ Patient Survey\.br\ You may receive a survey via text or e-mail asking about your office visit. Please share your experience with us by completing your survey. We appreciate your feedback and thank you for choosing us for your care.\.br\ Education Materials\.br\ Erectile Dysfunction\.br\ Erectile dysfunction (ED) is the inability to get or keep an erection in order to have sexual intercourse. ED is considered a symptom of an underlying disorder and is not considered a disease. ED may include:\.br\ ? \.br\ Inability to get an erection.\.br\ ? \.br\ Lack of enough hardness of the erection to allow penetration.\.br\ ? \.br\ Loss of erection before sex is finished.\.br\ What are the causes?\.br\ This condition may be caused by:\.br\ ? \.br\ Physical causes, such as:\.br\ ? \.br\ Artery problems. This may include heart disease, high blood pressure, atherosclerosis, and diabetes.\.br\ ? \.br\ Hormonal problems, such as low testosterone.\.br \ ? \.br\ Obesity.\.br\ ? \.br\ Nerve problems. This may include back or pelvic injuries, multiple sclerosis, Parkinson's disease, spinal cord injury, and stroke.\.br\ ? \.br\ Certain medicines, such as:\.br\ ? \.br\ Pain relievers.\.br\ ? \.br\ Antidepressants.\ .br\ ? \.br\ Blood pressure medicines and water pills (diuretics).\.br\ ? \.br\ Cancer medicines.\.br\ ? \.br\ Antihistamines.\. br\ ? \.br\ Muscle relaxants.\.br\ ? \.br\ Lifestyle factors, such as:\.br\ ? \.br\ Use of drugs such as marijuana, cocaine, or opioids.\.br\ ? \.br\ Excessive use of alcohol.\.br\ ? \.br\ Smoking.\.br\ ? \.br\ Lack of physical activity or exercise.\.br\ ? \.br\ Psychological causes, such as:\.br\ ? \.br\ Anxiety or stress.\.br\ ? \.br\ Sadness or depression.\.br\ ? \.br\ Exhaustion.\.br\ ? \.br\ Fear about sexual performance.\.br\ ? \.br\ Guilt.\.br\ What are the signs or symptoms?\.br\ Symptoms of this condition include:\.br\ ? \.br\ Inability to get an erection.\.br\ ? \.br\ Lack of enough hardness of the erection to allow penetration.\.br\ ? \.br\ Loss of the erection before sex is finished.\.br\ ? \.br\ Sometimes having normal erections, but with frequent unsatisfactory episodes.\.br\ ? \.br\ Low sexual satisfaction in either partner due to erection problems.\.br\ ? \.br\ A curved penis occurring with erection. The curve may cause pain, or the penis may be too curved to allow for intercourse.\.br\ ? \.br\ Never having nighttime or morning erections.\.br\ How is this diagnosed?\.br\ This condition is often diagnosed by:\.br\ ? \.br\ Performing a physical exam to find other diseases or specific problems with the penis.\.br\ ? \.br\ Asking you detailed questions about the problem.\.br\ ? \.br\ Doing tests, such as:\.br\ ? \.br\ Blood tests to check for diabetes mellitus or high cholesterol, or to measure hormone levels.\.br\ ? \.br\ Other tests to check for underlying health conditions.\.br\ ? \.br\ An ultrasound exam to check for scarring.\.br\ ? \.br\ A test to check blood flow to the penis.\.br\ ? \.br\ Doing a sleep study at home to [facility] Patient Educationon 09-15-19 24 Patient Education Urology Erectile Dysfunction Erectile dysfunction (ED) is the inability to get or keep an erection in order to have sexual intercourse. ED is considered a symptom of an underlying disorder and is not considered a disease. ED may include: ? Inability to get an erection. ? Lack of enough hardness of the erection to allow penetration. ? Loss of erection before sex is finished. What are the causes? This condition may be caused by: ? Physical causes, such as: ? Artery problems. This may include heart disease, high blood pressure, atherosclerosis, and diabetes. ? Hormonal problems, such as low testosterone. ? Obesity. ? Nerve problems. This may include back or pelvic injuries, multiple sclerosis, Parkinson's disease, spinal cord injury, and stroke. ? Certain medicines, such as: ? Pain relievers. ? Antidepressants. ? Blood pressure medicines and water pills (diuretics). ? Cancer medicines. ? Antihistamines. ? Muscle relaxants. ? Lifestyle factors, such as: ? Use of drugs such as marijuana, cocaine, or opioids. ? Excessive use of alcohol. ? Smoking. ? Lack of physical activity or exercise. ? Psychological causes, such as: ? Anxiety or stress. ? Sadness or depression. ? Exhaustion. ? Fear about sexual performance. ? Guilt. What are the signs or symptoms? Symptoms of this condition include: ? Inability to get an erection. ? Lack of enough hardness of the erection to allow penetration. ? Loss of the erection before sex is finished. ? Sometimes having normal erections, but with frequent unsatisfactory episodes. ? Low sexual satisfaction in either partner due to erection problems. ? A curved penis occurring with erection. The curve may cause pain, or the penis may be too curved to allow for intercourse. ? Never having nighttime or morning erections. How is this diagnosed? This condition is often diagnosed by: ? Performing a physical exam to find other diseases or specific problems with the penis. ? Asking you detailed questions about the problem. ? Doing tests, such as: ? Blood tests to check for diabetes mellitus or high cholesterol, or to measure hormone levels. ? Other tests to check for underlying health conditions. ? An ultrasound exam to check for scarring. ? A test to check blood flow to the penis. ? Doing a sleep study at home to measure nighttime erections. How is this treated? This condition may be treated by: ? Medicines, such as: ? Medicine taken by mouth to help you achieve an erection (oral medicine). ? Hormone replacement therapy to replace low testosterone levels. ? Medicine that is injected into the penis. Your health care provider may instruct you how to give yourself these injections at home. ? Medicine that is delivered with a short applicator tube. The tube is inserted into the opening at the tip of the penis, which is the opening of the urethra. A tiny pellet of medicine is put in the urethra. The pellet dissolves and enhances erectile function. This is also called MUSE (medicated urethral system for erections) therapy. ? Vacuum pump. This is a pump with a ring on it. The pump and ring are placed on the penis and used to create pressure that helps the penis become erect. ? Penile implant surgery. In this procedure, you may receive: ? An inflatable implant. This consists of cylinders, a pump, and a reservoir. The cylinders can be inflated with a fluid that helps to create an erection, and they can be deflated after intercourse. ? A semi-rigid implant. This consists of two silicone rubber rods. The rods provide some rigidity. They are also flexible, so the penis can both curve downward in its normal position and become straight for sexual intercourse. ? Blood vessel surgery to improve blood flow to the penis. During this procedure, a blood vessel from a different part of the body is placed into the penis to allow blood to flow around (bypass) damaged or blocked blood vessels. ? Lifestyle changes, such as exercising more, losing weight, and quitting smoking. Follow these instructions at home: Medicines ? Take [id number] and prescription medicines only as told by your health care provider. Do not increase the dosage without first discussing it with your health care provider. ? If you are using self-injections, do injections as directed by your health care provider. Make sure you avoid any veins that are on the surface of the penis. After giving an injection, apply pressure to the injection site for 5 minutes. ? Talk to your health care provider about how to prevent headaches while taking ED medicines. These medicines may cause a sudden headache due to the increase in blood flow in your body. General instructions ? Exercise regularly, as directed by your health care provider. Work with your health care provider to lose weight, if needed. ? Do not use any products that contain nicotine or tobacco. These products include cig (more content not included)... [facility] Reminderson 09-15-2023 Reminders - From: Amelia Winslow To: PAO Gonzalez; Sent: 09/15/2023 08:41:01 EST Show up: 02/14/2024 09:40:00 EDT Subject: PSA, Hct, and T level Reminder Message Please Remember to:_have pt get PSA, T level, and Hct done prior to appt. Internal lab orders in place. [facility] Urology Office/Clinic Noteon 09-15-2023 Urology Office/Clinic Note Chief Complaint 3 month follow up HPI Staff Due to Linnette Samaniego lab draw error. No HCT drawn. 3m Testosterone. T level 478 09/08/22, previous T level 390 02/24/23 DX: Hypogonadism, BPH & ED Testosterone Injections were increased from 150mg to 200mg IM q2wks at time of last encounter. Pt was also switched from Viagra to Cialis at time of last encounter. Dysuria: denies pain or burning Incomplete bladder emptying: denies Hematuria: denies visible blood Frequency: denies Urgency: denies Nocturia: denies Stream: denies hesitancy, denies weak stream Leaking: denies Post void dripping: denies Wearing pads/ Depends: denies Urge incontinence: denies Stress incontinence: denies Incontinence without Sensory Awareness: denies Abdominal pain: denies Flank pain: denies Sexual complaints: denies History of Present Illness Tests reviewed: reviewed UA, T level I have reviewed the previous health record information and history for this patient from Dr. Gonzalez. I have reviewed and verified the staff HPI to be accurate for this encounter. Review of Systems PHQ Score Initial Depression Screen Score: 0 SCORE ROS - Provider Constitutional: denies weight loss, denies hot flashes. Eyes: denies eye problems. Gastrointestinal: denies nausea, denies vomiting. Cardiovascular: denies chest pain or angina. Integumentary: no dryness Musculoskeletal: denies musculoskeletal symptoms. ENMT: denies otolaryngeal symptoms. Respiratory: no shortness of breath. Heme/Lymph: denies easy bleeding tendency, denies easy bruising tendency. Psychiatric: no confusion, no anxiety. Genitourinary: See HPI. Physical Exam Vitals & Measurements HR: 75(Peripheral) BP: 118/77 HT: 69 in HT: 174 cm WT: 143 kg WT: 314.6 lb BMI: 47.23 General Appearance: alert, no distress, well nourished, well developed male. Genitourinary: Flank Pain: none. Bladder: nonpalpable. Assessment/Plan 62 yo male here for follow up of hypogonadism and ED. 1. Hypogonadism male (E29.1: Testicular hypofunction) Testosterone: 05/13/22 - 323 11/23/22 - 830, on 200mg q2w 11/18/22 - 234, on 100mg q2wk 02/24/23 - 390, on 150mg q2wk 06/02/23 - 333, on 150mg q2wk 09/08/23 - 478, on 200mg q2wks HGB 06/02/23 - 16.5 HCT 06/02/23 - 50.1 Receiving Testosterone IM 200mg q2wks. Most recent given 09/01/23. Discussed labs with pt, normal. States he feels he is doing well on the 200mg q2wks vs 150mg. Would like to continue current dose. Denies side effects -Testosterone 200mg inj given today without issue -Diet and exercise -Nurse visit q2wk for injections at 200 mg IM -HCT, PSA and T level in 6 mos (nurse visit 1 week prior to appt) 2. ED (erectile dysfunction) (N52.9: Male erectile dysfunction, unspecified) Tried Viagra 100mg prn but did not have any effect. Recommended to start Cialis 20mg prn at prior OV. States he never got the pills. Declines other tx options at this time -TRT as above -Start Cialis. Rx sent again to [facility] in [place]. Risks/benefits discussed. -Diet and exercise 3. BPH without urinary obstruction (N40.0: Benign prostatic hyperplasia without lower urinary tract symptoms) PSA 10/21/21 - 0.7 & 41% 02/24/23 - 3.6 06/02/23 - 1.27 IPSS (4). Not currently taking any BPH meds. Denies any bothersome urinary habits. UA today negative for infection. -PSA in 6 mos due to TRT (nurse visit prior to appt) Follow-up With When Contact Information Carlos LIZAMA, Lety Scott, URL, URO [address] [place] [address]- [phone] Additional Instructions: 3 mos w/ PSA, T level, and HCT Patient Education Erectile Dysfunction IAmelia, personally scribed for Dr. Gonzalez on 09/15/2023 08:37:11. . Documentation recorded by the scribeAmelia, accurately reflects the services(s) I performed and decisions made by me. Authenticated by Dr. Gonzalez on 09/15/2023 08:40:39. Problem List/Past Medical History Ongoing Asymptomatic microscopic hematuria BPH without urinary obstruction ED (erectile dysfunction) Former smoker Groin pain Hypogonadism male Low testosterone Nocturia Historical No qualifying data Procedure/Surgical History Aortic stent, Big toe, Tonsillectomy. Medications amLODIPine 5 mg Tab, Oral, Daily atorvastatin 10 mg Tab, Oral, Daily biotin 1000 mcg oral tablet, 1000 mcg= 1 tab(s), Oral, Daily carvedilol 12.5 mg Tab, Oral, BID Cialis 20 mg Tab, 20 mg= 1 tab(s), Oral, As Directed, PRN, 3 refills citalopram, Oral, Daily Depo-Testosterone 200 mg/mL intramuscular solution, 200 mg= 1 mL, IntraMuscular, Once Depo-Testosterone 200 mg/mL intramuscular solution, 200 mg, IntraMuscular, q2wk Depo-Testosterone 200 mg/mL intramuscular solution, 200 mg, IntraMuscular, q2wk, 5 refills glipiZIDE 5 mg Tab, Oral, Daily Jardiance 25 mg oral tablet lisinopril 5 mg Tab, Oral, Daily omeprazole 40 mg Cap-DR, Oral, Daily Steglatro 15 mg oral ta (more content not included)... Normal [facility] Comment on above: Result Comment: Elec tronically Signed By: Lety Gonzalez MD\.br\Date and Time Signed: 09/15/23 08:41 EST\.br\Electronically Co-Signed By: Amelia Winslow\.br\Date and Time Co-Signed: 09/15/23 08:37 EST Testost Totalon 09-10-2023 Testosterone [Mass/Vol] 478 ng/dL Invalid Interpretation Code [id number] [facility] Comment on above: Result Comment: Adul t male reference interval is based on a population of healthy nonobese males (BMI <30) between 19 and 39 years old. irina Lester.al. JCEM 2017,102;[id number]. PMID: [id number]. Performed at: [facility] [id number] PhD Arianne Fonseca Performed By: #### [id number] ####[facility] [address] [place] [address] Ambulatory Visit Summaryon 0 09-09-2023 Ambulatory Visit Summary JOHNATHAN AMBROSIO :1960 Visit Date:09/08/2023 Ambulatory Visit Instructions Your Diagnosis Low testosterone Your Care Team Attending Physician - Carlos LIZAMA, Lety Scott Primary Care Physician - DASIA JEFFREY MD This Is Your Medications List amlodipine (amLODIPine 5 mg Tab) ascorbic acid (Vitamin C 250 mg oral tablet) atorvastatin (atorvastatin 10 mg Tab) biotin (biotin 1000 mcg oral tablet) carvedilol (carvedilol 12.5 mg Tab) citalopram cyanocobalamin (Vitamin B12 1000 mcg Tab) empagliflozin (Jardiance 25 mg oral tablet) ertugliflozin (Steglatro 15 mg oral tablet) glipiZIDE (glipiZIDE 5 mg Tab) lisinopril (lisinopril 5 mg Tab) omeprazole (omeprazole 40 mg Cap-DR) tadalafil (Cialis 20 mg Tab) testosterone (Depo-Testosterone 200 mg/mL intramuscular solution) Procedures Performed Aortic stent, Big toe, Tonsillectomy. What to do next Scheduled Follow-Up Appointments Wednesday 8:00 AM EST With: Lety Gonzalez MD Where: [facility] Ambulatory Visit Summaryon 1 11-02-2022 Ambulatory Visit Summary JOHNATHAN AMBROSIO :1960 Visit Date:09/01/2023 Ambulatory Visit Instructions Your Diagnosis Hypogonadism male Your Care Team Attending Physician - Lety Gonzalez MD Primary Care Physician - DASIA JEFFREY MD This Is Your Medications List amlodipine (amLODIPine 5 mg Tab) ascorbic acid (Vitamin C 250 mg oral tablet) atorvastatin (atorvastatin 10 mg Tab) biotin (biotin 1000 mcg oral tablet) carvedilol (carvedilol 12.5 mg Tab) citalopram cyanocobalamin (Vitamin B12 1000 mcg Tab) empagliflozin (Jardiance 25 mg oral tablet) ertugliflozin (Steglatro 15 mg oral tablet) glipiZIDE (glipiZIDE 5 mg Tab) lisinopril (lisinopril 5 mg Tab) omeprazole (omeprazole 40 mg Cap-DR) tadalafil (Cialis 20 mg Tab) testosterone (Depo-Testosterone 200 mg/mL intramuscular solution) Procedures Performed Aortic stent, Big toe, Tonsillectomy. What to do next Scheduled Follow-Up Appointments Wednesday 8:00 AM EST With: Carlos LIZAMA, Lety Scott Where: [facility] Ambulatory Visit Summaryon 1 10-04-2022 Ambulatory Visit Summary JOHNATHAN AMBROSIO :1960 Visit Date:08/04/2023 Ambulatory Visit Instructions Your Diagnosis Hypogonadism male Your Care Team Attending Physician - Lety Gonzalez MD Primary Care Physician - DASIA JEFFREY MD This Is Your Medications List amlodipine (amLODIPine 5 mg Tab) ascorbic acid (Vitamin C 250 mg oral tablet) atorvastatin (atorvastatin 10 mg Tab) biotin (biotin 1000 mcg oral tablet) carvedilol (carvedilol 12.5 mg Tab) citalopram cyanocobalamin (Vitamin B12 1000 mcg Tab) empagliflozin (Jardiance 25 mg oral tablet) ertugliflozin (Steglatro 15 mg oral tablet) glipiZIDE (glipiZIDE 5 mg Tab) lisinopril (lisinopril 5 mg Tab) omeprazole (omeprazole 40 mg Cap-DR) tadalafil (Cialis 20 mg Tab) testosterone (Depo-Testosterone 200 mg/mL intramuscular solution) Procedures Performed Aortic stent, Big toe, Tonsillectomy. What to do next Scheduled Follow-Up Appointments Wednesday 8:00 AM EST With: Where: [facility] Normal [address] [place] [address]- \.br\ Medications\.br\ What How Much When Why Instructions\.br\ Unchanged amlodipine (amLODIPine 5 mg Tab) By Mouth Every day\.br\ Unchanged ascorbic acid (Vitamin C 250 mg oral tablet) By Mouth Every day\.br\ Unchanged atorvastatin (atorvastatin 10 mg Tab) By Mouth Every day\.br\ Unchanged biotin (biotin 1000 mcg oral tablet) 1 Tablets By Mouth Every day\.br\ Unchanged carvedilol (carvedilol 12.5 mg Tab) By Mouth 2 times a day\.br\ Unchanged citalopram By Mouth Every day\.br\ Unchanged cyanocobalamin (Vitamin B12 1000 mcg Tab) By Mouth Every day\.br\ Unchanged empagliflozin (Jardiance 25 mg oral tablet)\.br\ Unchanged ertugliflozin (Steglatro 15 mg oral tablet) By Mouth Once a day (in the morning)\.br\ Unchanged glipiZIDE (glipiZIDE 5 mg Tab) By Mouth Every day\.br\ Unchanged lisinopril (lisinopril 5 mg Tab) By Mouth Every day\.br\ Unchanged omeprazole (omeprazole 40 mg Cap-DR) By Mouth Every day\.br\ Unchanged tadalafil (Cialis 20 mg Tab) 1 Tablets By Mouth As Directed as needed for for erectile dysfunction Do not exceed 20mg within 24 hours. \.br\ Unchanged testosterone (Depo-Testosteron e 200 mg/ mL intramuscular solution) 200 Milligram Intramuscular Every other week Hypogonadism male ED (erectile dysfunction)\.br\ Allergies\.br\ metFORMIN (Stomach cramps, Diarrhea)\.br\ Problems\.br\ Ongoing - Any problem that you are currently receiving treatment for.\.br\ Asymptomatic microscopic hematuria\.br\ BPH without urinary obstruction\.br\ ED (erectile dysfunction)\.br\ Former smoker\.br\ Groin pain\.br\ Hypogonadism male\.br\ Low testosterone\.br\ Nocturia\.br\ Patient Survey\.br\ You may receive a survey via text or e-mail asking about your office visit. Please share your experience with us by completing your survey. We appreciate your feedback and thank you for choosing us for your care.\.br\ \.br\ [facility] Ambulatory Visit Summaryon 1 09-20-2022 Ambulatory Visit Summary JOHNATHAN AMBROSIO :1960 Visit Date:07/21/2023 Ambulatory Visit Instructions Your Diagnosis ED (erectile dysfunction) Your Care Team Attending Physician - Lety Gonzalez MD Primary Care Physician - DASIA JEFFREY MD This Is Your Medications List amlodipine (amLODIPine 5 mg Tab) ascorbic acid (Vitamin C 250 mg oral tablet) atorvastatin (atorvastatin 10 mg Tab) biotin (biotin 1000 mcg oral tablet) carvedilol (carvedilol 12.5 mg Tab) citalopram cyanocobalamin (Vitamin B12 1000 mcg Tab) empagliflozin (Jardiance 25 mg oral tablet) ertugliflozin (Steglatro 15 mg oral tablet) glipiZIDE (glipiZIDE 5 mg Tab) lisinopril (lisinopril 5 mg Tab) omeprazole (omeprazole 40 mg Cap-DR) tadalafil (Cialis 20 mg Tab) testosterone (Depo-Testosterone 200 mg/mL intramuscular solution) Procedures Performed Aortic stent, Big toe, Tonsillectomy. What to do next Scheduled Follow-Up Appointments Wednesday 8:00 AM EST With: Where: [facility] Invalid Interpretation Code [address] [place] [address]- \.br\ Wednesday 8:00 AM EST \.br\ With: Lety Gonzalez MD\.br\ Where: [facility] Ambulatory Visit Summaryon 1 09-06-2022 Ambulatory Visit Summary JOHNATHAN AMBROSIO :1960 Visit Date:07/07/2023 Ambulatory Visit Instructions Your Diagnosis Hypogonadism male Your Care Team Attending Physician - Lety Gonzalez MD Primary Care Physician - DASIA JEFFREY MD This Is Your Medications List amlodipine (amLODIPine 5 mg Tab) ascorbic acid (Vitamin C 250 mg oral tablet) atorvastatin (atorvastatin 10 mg Tab) biotin (biotin 1000 mcg oral tablet) carvedilol (carvedilol 12.5 mg Tab) citalopram cyanocobalamin (Vitamin B12 1000 mcg Tab) empagliflozin (Jardiance 25 mg oral tablet) ertugliflozin (Steglatro 15 mg oral tablet) glipiZIDE (glipiZIDE 5 mg Tab) lisinopril (lisinopril 5 mg Tab) omeprazole (omeprazole 40 mg Cap-DR) tadalafil (Cialis 20 mg Tab) testosterone (Depo-Testosterone 200 mg/mL intramuscular solution) Procedures Performed Aortic stent, Big toe, Tonsillectomy. What to do next Scheduled Follow-Up Appointments Wednesday 8:00 AM EST With: Where: [facility] Invalid Interpretation Code [address] [place] [address]- \.br\ Wednesday 8:00 AM EST \.br\ With:\.br\ Where: [facility] Ambulatory Visit Summaryon 1 Ambulatory Visit Summary JOHNATHAN AMBROSIO :1960 Visit Date:06/23/2023 Ambulatory Visit Instructions Your Diagnosis ED (erectile dysfunction) Your Care Team Attending Physician - Carlos LIZAMA, Lety Scott Primary Care Physician - WOJCIECH LIZAMA, DASIA This Is Your Medications List amlodipine (amLODIPine 5 mg Tab) ascorbic acid (Vitamin C 250 mg oral tablet) atorvastatin (atorvastatin 10 mg Tab) biotin (biotin 1000 mcg oral tablet) carvedilol (carvedilol 12.5 mg Tab) citalopram cyanocobalamin (Vitamin B12 1000 mcg Tab) empagliflozin (Jardiance 25 mg oral tablet) ertugliflozin (Steglatro 15 mg oral tablet) glipiZIDE (glipiZIDE 5 mg Tab) lisinopril (lisinopril 5 mg Tab) omeprazole (omeprazole 40 mg Cap-DR) tadalafil (Cialis 20 mg Tab) testosterone (Depo-Testosterone 200 mg/mL intramuscular solution) Procedures Performed Aortic stent, Big toe, Tonsillectomy. What to do next Scheduled Follow-Up Appointments Wednesday 8:00 AM EDT With: Where: [facility] Invalid Interpretation Code [address] [place] [address]- \.br\ Wednesday 8:00 AM EST \.br\ With:\.br\ Where: [facility] Ambulatory Visit Summaryon 1 Ambulatory Visit Summary JOHNATHAN AMBROSIO :1960 Visit Date:06/09/2023 Ambulatory Visit Instructions Your Diagnosis Hypogonadism male BPH without urinary obstruction ED (erectile dysfunction) Tests Performed Urnls Dip Stick Auto w/o Microscopy POC 69189 Your Care Team Attending Physician - Carlos LIZAMA, Lety Scott Primary Care Physician - DASIA JEFFREY MD This Is Your Medications List tadalafil (Cialis 20 mg Tab) testosterone (Depo-Testosterone 200 mg/mL intramuscular solution) Contact prescribing physician if questions or concerns amlodipine (amLODIPine 5 mg Tab) ascorbic acid (Vitamin C 250 mg oral tablet) atorvastatin (atorvastatin 10 mg Tab) biotin (biotin 1000 mcg oral tablet) carvedilol (carvedilol 12.5 mg Tab) citalopram cyanocobalamin (Vitamin B12 1000 mcg Tab) empagliflozin (Jardiance 25 mg oral tablet) ertugliflozin (Steglatro 15 mg oral tablet) glipiZIDE (glipiZIDE 5 mg Tab) lisinopril (lisinopril 5 mg Tab) omeprazole (omeprazole 40 mg Cap-DR) [Image Removed: STOP]Stop taking these medications sildenafil (Viagra 100 mg Tab) Procedures Performed Aortic stent, Big toe, Tonsillectomy. Discharge Vitals Heart Rate (Peripheral) 68 Respiratory Rate 16 Blood Pressure 130/74 Height 174 cm Height 69 in Weight 143 kg Weight 314.6 lb BMI 47.23 What to do next Scheduled Follow-Up Appointments Wednesday 8:00 AM EDT With: Where: [facility] Normal [address] [place] [address]- \.br\ You Need to Schedule the Following Appointments\.br\ Follow Up with Carlos LIZAMA, Lety Scott, URL, URO When: In 3 months\.br\ Comments:\.br\ w/ T Level, HCT, and PSA\.br\ Where:\.br\ Medications\.br\ What How Much When Why Instructions\.br\ New tadalafil (Cialis 20 mg Tab) 1 Tablets By Mouth As Directed as needed for for erectile dysfunction Refills: 3 Do not exceed 20mg within 24 hours. Pickup at [facility]/pharmacy #[id number]\.br\ Changed testosterone (Depo-Testosteron e 200 mg/ mL intramuscular solution) 200 Milligram Intramuscular Every other week Hypogonadism male ED (erectile dysfunction) Pickup at [facility]/pharmacy #[id number]\.br\ Unchanged amlodipine (amLODIPine 5 mg Tab) By Mouth Every day Contact prescribing physician if questions or concerns \.br\ Unchanged ascorbic acid (Vitamin C 250 mg oral tablet) By Mouth Every day Contact prescribing physician if questions or concerns \.br\ Unchanged atorvastatin (atorvastatin 10 mg Tab) By Mouth Every day Contact prescribing physician if questions or concerns \.br\ Unchanged biotin (biotin 1000 mcg oral tablet) 1 Tablets By Mouth Every day Contact prescribing physician if questions or concerns \.br\ Unchanged carvedilol (carvedilol 12.5 mg Tab) By Mouth 2 times a day Contact prescribing physician if questions or concerns \.br\ Unchanged citalopram By Mouth Every day Contact prescribing physician if questions or concerns \.br\ Unchanged cyanocobalamin (Vitamin B12 1000 mcg Tab) By Mouth Every day Contact prescribing physician if questions or concerns \.br\ Unchanged empagliflozin (Jardiance 25 mg oral tablet) Contact prescribing physician if questions or concerns \.br\ Unchanged ertugliflozin (Steglatro 15 mg oral tablet) By Mouth Once a day (in the morning) Contact prescribing physician if questions or concerns \.br\ Unchanged glipiZIDE (glipiZIDE 5 mg Tab) By Mouth Every day Contact prescribing physician if questions or concerns \.br\ Unchanged lisinopril (lisinopril 5 mg Tab) By Mouth Every day Contact prescribing physician if questions or concerns \.br\ Unchanged omeprazole (omeprazole 40 mg Cap-DR) By Mouth Every day Contact prescribing physician if questions or concerns \.br\ Pharmacy Information\.br\ [facility]/pharmacy #[id number]: [address], [place] [phone]\.br\ \.br\ What How Much When Comments\.br\ Stop Taking sildenafil (Viagra 100 mg Tab) 1 Tablets By Mouth As Directed as needed for for erectile dysfunction 1 hour before sexual activity. Start with 1/ 2 tablet. Not to exceed 1 tab (100 mg) in 24 hours \.br\ Test Results\.br\ Urnls Dip Stick Auto w/o Microscopy POC 98668 (06/09/2023)\.br\ Bilirubin Urine Dipstick - Negative\.br\ Blood Urine Dipstick - Negative\.br\ Glucose Urine Dipstick - 3+ 1000 mg/dl\.br\ Ketones Urine Dipstick - Negative\.br\ Leukocytes Urine Dipstick - Negative\.br\ Nitrite Urine Dipstick - Negative\.br\ Protein Urine Dipstick - Negative\.br\ Specific Melbeta Urine Dipstick - 1.010\.br\ Urine Appearance Urine Dipstick - Clear\.br\ Urine Color Urine Dipstick - Yellow\.br\ Urobilinogen Urine Dipstick - Normal 0.2-1 EU/dl\.br\ pH Urine Dipstick - 5\.br\ Medications and Immunizations Administered\.br\ Given\.br\ Depo-Testosterone 200 mg/mL intramuscular solution, 50 mg, IntraMuscular. For: Hypogonadism male\.br\ Allergies\.br\ metFORMIN (Stomach cramps, Diarrhea)\.br\ Problems\.br\ Ongoing - Any problem that you are currently receiving treatment for.\.br\ Asymptomatic microscopic hematuria\.br\ BPH without urinary obstruction\.br\ ED (erectile dysfunction)\.br\ Former smoker\.br\ Groin pain\.br\ Hypogonadism male\.br\ Low testosterone\.br\ Nocturia\.br\ Education Materials\.br\ Hypogonadism, Male\.br\ \.br\ Male hypogonadism is a condition of having a level of testosterone that is lower than normal. Testosterone is a chemical, or hormone, that is made mainly in the testicles.\.br\ In boys, testosterone is responsible for the development of male characteristics during puberty. These include:\.br\ ? \.br\ Making the penis bigger.\.br\ ? \.br\ Growing and building the muscles.\.br\ ? \.br\ Growing facial hair.\.br\ ? \.br\ Deepening the voice.\.br\ In adult men, testosterone is responsible for maintaining:\.br\ ? \.br\ An interest in sex and the ability to have sex.\.br\ ? \.br\ Muscle mass.\.br\ ? \.br\ Sperm production.\.br\ ? \.br\ Red blood cell production.\.br\ ? \.br\ Bone strength.\.br\ Testosterone also gives men energy and a sense of well-being.\.br\ Testosterone normally decreases as men age and the testicles make less testosterone. Testosterone levels can vary from man to man. Not all men will have signs and symptoms of low testosterone. Weight, alcohol use, medicines, and certain medical conditions can affect a man's testosterone level.\.br\ What are the causes?\.br\ This condition is caused by:\.br\ ? \.br\ A natural decrease in testosterone that occurs as a man grows older. This is the main cause of this condition.\.br\ ? \.br\ Use of medicines, such as antidepressants, steroids, and opioids.\.br\ ? \.br\ Diseases and conditions that affect the testicles or the making of testosterone. These include:\.br\ ? \.br\ Injury or damage to the testicles from trauma, cancer, cancer treatment, or infection.\.br\ ? \.br\ Diabetes.\.br\ ? \.br\ Sleep apnea.\.br\ ? \.br\ Genetic conditions that men are born with.\.br\ ? \.br\ Disease of the pituitary gland. This gland is in the brain. It produces hormones.\.br\ ? \.br\ Obesity.\.br\ ? \.br\ Metabolic syndrome. This is a group of diseases that affect blood pressure, blood sugar, cholesterol, and belly fat.\.br\ ? \.br\ HIV or AIDS.\.br\ ? \.br\ Alcohol abuse.\.br\ ? \.br\ Kidney failure.\.br\ ? \.br\ Other long-term or chronic diseases.\.br\ What are the signs or symptoms?\.br\ Common symptoms of this condition include:\.br\ ? \.br\ Loss of interest in sex (low sex drive).\.br\ ? \.br\ Inability to have or maintain an erection (erectile dysfunction).\.br \ ? \.br\ Feeling tired (fatigue).\.br\ ? \.br\ Mood changes, like irritability or depression.\.br\ ? \.br\ Loss of muscle and body hair.\.br\ ? \.br\ Infertility.\.br\ ? \.br\ Large breasts.\.br\ ? \.br\ Weight gain (obesity).\.br\ How is this diagnosed?\.br\ Your health care provider can diagnose hypogonadism based on:\.br\ ? \.br\ Your signs and symptoms.\.br\ ? \.br\ A physical exam to check your testosterone levels. This includes blood tests. Testosterone levels can change throughout the day. Levels are highest in the morning. You may need to have repeat blood tests before getting a diagnosis of hypogonadism.\.br \ Depending on your medical history and test results, your health care provider may also do other tests to find the cause of low testosterone.\.br \ How is this treated?\.br\ This condition is treated with testosterone replacement therapy. Testosterone can be given by:\.br\ ? \.br\ Injection or through pellets inserted under the skin.\.br\ ? \.br\ Gels or patches placed on the skin or in the mouth.\.br\ Testosterone therapy is not for everyone. It has risks and side effects. Your health care provider will consider your medical history, your risk for prostate cancer, your age, and your symptoms before putting you on testosterone repla [facility] Patient Educationon 06-09-20 Patient Education Urology Hypogonadism, Male Male hypogonadism is a condition of having a level of testosterone that is lower than normal. Testosterone is a chemical, or hormone, that is made mainly in the testicles. In boys, testosterone is responsible for the development of male characteristics during puberty. These include: ? Making the penis bigger. ? Growing and building the muscles. ? Growing facial hair. ? Deepening the voice. In adult men, testosterone is responsible for maintaining: ? An interest in sex and the ability to have sex. ? Muscle mass. ? Sperm production. ? Red blood cell production. ? Bone strength. Testosterone also gives men energy and a sense of well-being. Testosterone normally decreases as men age and the testicles make less testosterone. Testosterone levels can vary from man to man. Not all men will have signs and symptoms of low testosterone. Weight, alcohol use, medicines, and certain medical conditions can affect a man's testosterone level. What are the causes? This condition is caused by: ? A natural decrease in testosterone that occurs as a man grows older. This is the main cause of this condition. ? Use of medicines, such as antidepressants, steroids, and opioids. ? Diseases and conditions that affect the testicles or the making of testosterone. These include: ? Injury or damage to the testicles from trauma, cancer, cancer treatment, or infection. ? Diabetes. ? Sleep apnea. ? Genetic conditions that men are born with. ? Disease of the pituitary gland. This gland is in the brain. It produces hormones. ? Obesity. ? Metabolic syndrome. This is a group of diseases that affect blood pressure, blood sugar, cholesterol, and belly fat. ? HIV or AIDS. ? Alcohol abuse. ? Kidney failure. ? Other long-term or chronic diseases. What are the signs or symptoms? Common symptoms of this condition include: ? Loss of interest in sex (low sex drive). ? Inability to have or maintain an erection (erectile dysfunction). ? Feeling tired (fatigue). ? Mood changes, like irritability or depression. ? Loss of muscle and body hair. ? Infertility. ? Large breasts. ? Weight gain (obesity). How is this diagnosed? Your health care provider can diagnose hypogonadism based on: ? Your signs and symptoms. ? A physical exam to check your testosterone levels. This includes blood tests. Testosterone levels can change throughout the day. Levels are highest in the morning. You may need to have repeat blood tests before getting a diagnosis of hypogonadism. Depending on your medical history and test results, your health care provider may also do other tests to find the cause of low testosterone. How is this treated? This condition is treated with testosterone replacement therapy. Testosterone can be given by: ? Injection or through pellets inserted under the skin. ? Gels or patches placed on the skin or in the mouth. Testosterone therapy is not for everyone. It has risks and side effects. Your health care provider will consider your medical history, your risk for prostate cancer, your age, and your symptoms before putting you on testosterone replacement therapy. Follow these instructions at home: ? Take [id number] and prescription medicines only as told by your health care provider. ? Eat foods that are high in fiber, such as beans, whole grains, and fresh fruits and vegetables. Limit foods that are high in fat and processed sugars, such as fried or sweet foods. ? If you drink alcohol: ? Limit how much you have to 0?2 drinks a day. ? Know how much alcohol is in your drink. In the [place] one drink equals one 12 oz bottle of beer (355 mL), one 5 oz glass of wine (148 mL), or one 1? oz glass of hard liquor (44 mL). ? Return to your normal activities as told by your health care provider. Ask your health care provider what activities are safe for you. ? Keep all follow-up visits. This is important. Contact a health care provider if: ? You have any of the signs or symptoms of low testosterone. ? You have any side effects from testosterone therapy. Summary ? Male hypogonadism is a condition of having a level of testosterone that is lower than normal. ? The natural drop in testosterone production that occurs with age is the most common cause of this condition. ? Low testosterone can also be caused by many diseases and conditions that affect the testicles and the making of testosterone. ? This condition is treated with testosterone replacement therapy. ? There are risks and side effects of testosterone therapy. Your health care provider will consider your age, medical history, symptoms, and risks for prostate cancer before putting you on testosterone therapy. This information is not intended to replace advice given to you by your health care provider. Make sure you discuss any questions you have with your health care provider. Document Revised: 04/24/2021 Document (more content not included)... Normal [facility] Screenson 06-09-2023 Screens [id number] #1.00CD:127 Normal [facility] Screens [id number] #1.00CD:127 [facility] Urology Office/Clinic Noteon 06-09-2023 Urology Office/Clinic Note Chief Complaint 4m w/labs HPI Staff 6m Testosterone, PSA & HCT & HGB Previous DX; BPH, ED, Hypogonadism male *pt gets Testosterone Inj 150mg IM q2wks. Also taking Viagra 100mg PRN- pt states no longer taking Viagra due to it not helping. Has not tried any other ED meds in the past. Testosterone 06/02/23- 333 HGB 06/02/23- 16.5 HCT 06/02/23- 50.1 PSA 06/02/23- 1.27 Previous PSA 02/24/23- 3.6 Per last encounter pt was to get repeat PSA F/T in April. Possible MRI based on those results. Pt did NOT get a PSA in April. Denies urinary complaints. IPSS 4 SHANTA 0 Denies all concerns at this time. History of Present Illness Tests reviewed: reviewed UA and labs I have reviewed the previous health record information and history for this patient from . I have reviewed and verified the staff HPI to be accurate for this encounter. There have been no associated fever, chills, flank pain, or blood in the urine. Denies any urinary infections since last encounter. Review of Systems PHQ Score Initial Depression Screen Score: 0 ROS - Provider Constitutional: denies weight loss, denies hot flashes. Eyes: denies eye problems. Gastrointestinal: denies nausea, denies vomiting. Cardiovascular: denies chest pain or angina. Integumentary: no dryness Musculoskeletal: denies musculoskeletal symptoms. ENMT: denies otolaryngeal symptoms. Respiratory: no shortness of breath. Heme/Lymph: denies easy bleeding tendency, denies easy bruising tendency. Psychiatric: no confusion, no anxiety. Genitourinary: See HPI. Physical Exam Vitals & Measurements HR: 68(Peripheral) RR: 16 BP: 130/74 HT: 69 in HT: 174 cm WT: 143 kg WT: 314.6 lb BMI: 47.23 General Appearance: alert, no distress, well nourished, well developed male. Assessment/Plan 62 yo male here for follow up of hypogonadism and ED 1. Hypogonadism male (E29.1: Testicular hypofunction) Testosterone: 05/13/22 - 323 07/29/22 - 830, on 200mg q2w 11/18/22 - 234, on 100mg q2wk 02/24/23 - 390, on 150mg q2wk 06/02/23 - 333, on 150mg q2wk HGB 06/02/23- 16.5 HCT 06/02/23- 50.1 Discussed labs with pt, normal. Pt states that the current dose of the T injections does not feel different, cannot tell a difference between the previous doses compared to the current dose. Discussed trying the 200mg injections and will get T level done to monitor levels. Pt states he prefers continuing the injections, 200mg q2wks. Follow up in 3 mos w/ Labs. All questions/concerns were discussed. Pt to call the office if he encounters any issues prior. Pt acknowledges understanding. -Start nurse visit q2wk for injections at 200 mg IM q2w. Risks/benefits discussed. -Diet and exercise -Will order T level and HCT in 3 months 2. BPH without urinary obstruction (N40.0: Benign prostatic hyperplasia without lower urinary tract symptoms) PSA 10/2021 - 0.7, 41% free 02/24/23 - 3.6 06/02/23 - 1.27 UA today shows GLU >=1000 mg/dL. IPSS 4(2). Not taking any BPH meds. No urinary complaints. Discussed PSA results with pt, decreased from previous. Will continue to monitor closely while on TRT -Will order PSA in 6 mths 3. ED (erectile dysfunction) (N52.9: Male erectile dysfunction, unspecified) Viagra 100mg PRN. Pt feels this didn't help, tried half a tab and then a full tab. Pt states that he has tried to do more activity. Discussed risks/benefits of alternative meds, KARELY, ICI, IPP. Pt would like to proceed with alternative meds. -Will send Cialis 20mg PRN. Discussed the medication side effects, and the patient will monitor closely for these, as well as for symptom improvement. If severe side effects occur, the medication should be stopped and the office notified. -D/c Viagra. -TRT as above I spent 30 minutes today with the patient: reviewing tests in preparation to see and discuss them with the patient, documenting clinical information in the electronic health records, and care coordination. Time was spent performing a medical exam and evaluation, counseling and educating the patient and ordering medications, tests in caring for the patient. Follow-up With When Contact Information Carlos LIZAMA, Lety Scott, URL, URO In 3 months Additional Instructions: w/ T Level, HCT, and PSA Patient Education Hypogonadism, Male I, Judith Bell, personally scribed for Dr. Gonzalez on 06/09/2023 08:22:33. . Documentation recorded by the cristhianibJudith yost, accurately reflects the services(s) I performed and decisions made by me. Authenticated by Dr. Gonzalez on 06/09/2023 14:46:51. Problem List/Past Medical History Ongoing Asymptomatic microscopic hematuria BPH without urinary obstruction ED (erectile dysfunction) Former smoker Groin pain Hypogonadism male Low testosterone Nocturia Historical No qualifying data Procedure/Surgical History Aortic stent, Big toe, Tonsillectomy. Medications amLODIPine 5 mg Tab, O (more content not included)... Normal [facility] Comment on above: Result Comment: Elec tronically Signed By: Carlos LIZAMA, Lety Scott\.br\Date and Time Signed: 06/09/23 14:47 EDT\.br\Electronically Co-Signed By: Judith Bell\.br\Date and Time Co-Signed: 06/09/23 08:22 EDT Lab Reportson 06-04-2023 Lab Reports [id number] #1.00CD:127 Normal [facility] Lab Reports [id number]# 1.00CD:127 [facility] Ambulatory Visit Summaryon 0 06-02-2023 Ambulatory Visit Summary JOHNATHAN AMBROSIO :1960 Visit Date:06/02/2023 Ambulatory Visit Instructions Your Care Team Attending Physician - Carlos LIZAMA, Lety Scott Primary Care Physician - DASIA JEFFREY MD This Is Your Medications List amlodipine (amLODIPine 5 mg Tab) ascorbic acid (Vitamin C 250 mg oral tablet) atorvastatin (atorvastatin 10 mg Tab) biotin (biotin 1000 mcg oral tablet) carvedilol (carvedilol 12.5 mg Tab) citalopram cyanocobalamin (Vitamin B12 1000 mcg Tab) ertugliflozin (Steglatro 15 mg oral tablet) glipiZIDE (glipiZIDE 5 mg Tab) lisinopril (lisinopril 5 mg Tab) omeprazole (omeprazole 40 mg Cap-DR) sildenafil (Viagra 100 mg Tab) testosterone (testosterone cypionate 200 mg/mL IM Erin) Procedures Performed Big toe, Tonsillectomy. What to do next Scheduled Follow-Up Appointments Wednesday 8:45 AM EDT With: Lety Gonzalez MD Where: [facility] Normal [facility] Lab Reportson 06-02-2023 Lab Reports [id number] #1.00CD:127 Normal [facility] Ambulatory Visit Summaryon 0 05-12-2023 Ambulatory Visit Summary JOHNATHAN AMBROSIO :1960 Visit Date:05/12/2023 Ambulatory Visit Instructions Your Diagnosis ED (erectile dysfunction) Your Care Team Attending Physician - Lety Gonzalez MD Primary Care Physician - DASIA JEFFREY MD This Is Your Medications List amlodipine (amLODIPine 5 mg Tab) ascorbic acid (Vitamin C 250 mg oral tablet) atorvastatin (atorvastatin 10 mg Tab) biotin (biotin 1000 mcg oral tablet) carvedilol (carvedilol 12.5 mg Tab) citalopram cyanocobalamin (Vitamin B12 1000 mcg Tab) ertugliflozin (Steglatro 15 mg oral tablet) glipiZIDE (glipiZIDE 5 mg Tab) lisinopril (lisinopril 5 mg Tab) omeprazole (omeprazole 40 mg Cap-DR) sildenafil (Viagra 100 mg Tab) testosterone (testosterone cypionate 200 mg/mL IM Erin) Procedures Performed Big toe, Tonsillectomy. What to do next Scheduled Follow-Up Appointments Wednesday 8:00 AM EDT With: Where: [facility] Invalid Interpretation Code [address] [place] [address]- \.br\ Wednesday 8:45 AM EDT \.br\ With: Lety Gonzalez MD\.br\ Where: [facility] Ambulatory Visit Summaryon 0 04-28-2023 Ambulatory Visit Summary JOHNATHAN AMBROSIO :1960 Visit Date:04/28/2023 Ambulatory Visit Instructions Your Diagnosis Hypogonadism male Your Care Team Attending Physician - Carlos LIZAMA, Lety Scott Primary Care Physician - DASIA JEFFREY MD This Is Your Medications List amlodipine (amLODIPine 5 mg Tab) ascorbic acid (Vitamin C 250 mg oral tablet) atorvastatin (atorvastatin 10 mg Tab) biotin (biotin 1000 mcg oral tablet) carvedilol (carvedilol 12.5 mg Tab) citalopram cyanocobalamin (Vitamin B12 1000 mcg Tab) ertugliflozin (Steglatro 15 mg oral tablet) glipiZIDE (glipiZIDE 5 mg Tab) lisinopril (lisinopril 5 mg Tab) omeprazole (omeprazole 40 mg Cap-DR) sildenafil (Viagra 100 mg Tab) testosterone (testosterone cypionate 200 mg/mL IM Erin) Procedures Performed Big toe, Tonsillectomy. What to do next Scheduled Follow-Up Appointments Wednesday 8:00 AM EDT With: Where: [facility] Invalid Interpretation Code [address] [place] [address]- \.br\ Wednesday 8:45 AM EDT \.br\ With: Carlos LIZAMA, Lety Scott\.br\ Where: [facility] Ambulatory Visit Summaryon 0 04-14-2023 Ambulatory Visit Summary JOHNATHAN AMBROSIO :1960 Visit Date:04/14/2023 Ambulatory Visit Instructions Your Diagnosis Hypogonadism male Your Care Team Attending Physician - Carlos LIZAMA, Lety Scott Primary Care Physician - DASIA JEFFREY MD This Is Your Medications List amlodipine (amLODIPine 5 mg Tab) ascorbic acid (Vitamin C 250 mg oral tablet) atorvastatin (atorvastatin 10 mg Tab) biotin (biotin 1000 mcg oral tablet) carvedilol (carvedilol 12.5 mg Tab) citalopram cyanocobalamin (Vitamin B12 1000 mcg Tab) ertugliflozin (Steglatro 15 mg oral tablet) glipiZIDE (glipiZIDE 5 mg Tab) lisinopril (lisinopril 5 mg Tab) omeprazole (omeprazole 40 mg Cap-DR) sildenafil (Viagra 100 mg Tab) testosterone (testosterone cypionate 200 mg/mL IM Erin) Procedures Performed Big toe, Tonsillectomy. What to do next Scheduled Follow-Up Appointments Wednesday 8:30 AM EDT With: Where: [facility] Invalid Interpretation Code [address] [place] [address]- \.br\ Wednesday 8:00 AM EDT \.br\ With:\.br\ Where: [facility] Ambulatory Visit Summaryon 0 03-17-2023 Ambulatory Visit Summary JOHNATHAN AMBROSIO :1960 Visit Date:03/17/2023 Ambulatory Visit Instructions Your Diagnosis Hypogonadism male Your Care Team Attending Physician - Carlos LIZAMA, Lety Scott Primary Care Physician - WOJCIECH LIZAMA, DASIA This Is Your Medications List amlodipine (amLODIPine 5 mg Tab) ascorbic acid (Vitamin C 250 mg oral tablet) atorvastatin (atorvastatin 10 mg Tab) biotin (biotin 1000 mcg oral tablet) carvedilol (carvedilol 12.5 mg Tab) citalopram cyanocobalamin (Vitamin B12 1000 mcg Tab) ertugliflozin (Steglatro 15 mg oral tablet) glipiZIDE (glipiZIDE 5 mg Tab) lisinopril (lisinopril 5 mg Tab) omeprazole (omeprazole 40 mg Cap-DR) sildenafil (Viagra 100 mg Tab) testosterone (testosterone cypionate 200 mg/mL IM Erin) Procedures Performed Big toe, Tonsillectomy. What to do next Scheduled Follow-Up Appointments Wednesday 8:00 AM EDT With: Where: [facility] Normal [address] [place] [address]- \.br\ You Need to Schedule the Following Appointments\.br\ Follow Up with Carlos LIZAMA, SHAYY Hernandes, URO When: In 2 weeks\.br\ Comments:\.br\ Will return in 2wks for next injection.\.br\ Will see Dr Gonzalez end may with PSA T & HCT & HGB.\.br\ Where:\.br\ [address]\.br\ [place] [address]\.br\ Medications\.br\ What How Much When Instructions\.br\ Unchanged amlodipine (amLODIPine 5 mg Tab) By Mouth Every day\.br\ Unchanged ascorbic acid (Vitamin C 250 mg oral tablet) By Mouth Every day\.br\ Unchanged atorvastatin (atorvastatin 10 mg Tab) By Mouth Every day\.br\ Unchanged biotin (biotin 1000 mcg oral tablet) 1 Tablets By Mouth Every day\.br\ Unchanged carvedilol (carvedilol 12.5 mg Tab) By Mouth 2 times a day\.br\ Unchanged citalopram By Mouth Every day\.br\ Unchanged cyanocobalamin (Vitamin B12 1000 mcg Tab) By Mouth Every day\.br\ Unchanged ertugliflozin (Steglatro 15 mg oral tablet) By Mouth Once a day (in the morning)\.br\ Unchanged glipiZIDE (glipiZIDE 5 mg Tab) By Mouth Every day\.br\ Unchanged lisinopril (lisinopril 5 mg Tab) By Mouth Every day\.br\ Unchanged omeprazole (omeprazole 40 mg Cap-DR) By Mouth Every day\.br\ Unchanged sildenafil (Viagra 100 mg Tab) 1 Tablets By Mouth As Directed as needed for for erectile dysfunction 1 hour before sexual activity. Start with 1/ 2 tablet. Not to exceed 1 tab (100 mg) in 24 hours \.br\ Unchanged testosterone (testosterone cypionate 200 mg/ mL IM Erin) 150 Milligram Intramuscular Every other week\.br\ Medications and Immunizations Administered\.br\ Given\.br\ Depo-Testosterone 200 mg/mL intramuscular solution, 150 mg, IntraMuscular. For: Hypogonadism male\.br\ Allergies\.br\ metFORMIN (Stomach cramps, Diarrhea)\.br\ Problems\.br\ Ongoing - Any problem that you are currently receiving treatment for.\.br\ Asymptomatic microscopic hematuria\.br\ BPH without urinary obstruction\.br\ ED (erectile dysfunction)\.br\ Former smoker\.br\ Groin pain\.br\ Hypogonadism male\.br\ Low testosterone\.br\ Nocturia\.br\ \.br\ [facility] Nurse Consultation Noteon Nurse Consultation Note Reason for Visit Testosterone Injection Assessment/Plan 1. Hypogonadism male (E29.1: Testicular hypofunction) 150mg/ 0.75ml Tesosterone IM Injection given in Rt Deltoid. Pt tolerated well. Will return in 2wks for next injection. Will see Dr Gonzalez end may with PSA T & HCT & HGB. Medications amLODIPine 5 mg Tab, Oral, Daily atorvastatin 10 mg Tab, Oral, Daily biotin 1000 mcg oral tablet, 1000 mcg= 1 tab(s), Oral, Daily carvedilol 12.5 mg Tab, Oral, BID citalopram, Oral, Daily glipiZIDE 5 mg Tab, Oral, Daily lisinopril 5 mg Tab, Oral, Daily omeprazole 40 mg Cap-DR, Oral, Daily Steglatro 15 mg oral tablet, Oral, qAM testosterone cypionate 200 mg/mL IM Erin, 150 mg, IntraMuscular, q2wk Viagra 100 mg Tab, 100 mg= 1 tab(s), Oral, As Directed, PRN, 5 refills Vitamin B12 1000 mcg Tab, Oral, Daily Vitamin C 250 mg oral tablet, Oral, Daily Allergies metFORMIN (Stomach cramps, Diarrhea) Normal [facility] Ambulatory Visit Summaryon 0 03-03-2023 Ambulatory Visit Summary JOHNATHAN AMBROSIO :1960 Visit Date:03/03/2023 Ambulatory Visit Instructions Your Diagnosis Hypogonadism male BPH without urinary obstruction ED (erectile dysfunction) Tests Performed Urnls Dip Stick Auto w/o Microscopy POC [id number] Your Care Team Attending Physician - Carlos LIZAMA, Lety Scott Primary Care Physician - DASIA JEFFREY MD This Is Your Medications List sildenafil (Viagra 100 mg Tab) Contact prescribing physician if questions or concerns amlodipine (amLODIPine 5 mg Tab) ascorbic acid (Vitamin C 250 mg oral tablet) atorvastatin (atorvastatin 10 mg Tab) biotin (biotin 1000 mcg oral tablet) carvedilol (carvedilol 12.5 mg Tab) citalopram cyanocobalamin (Vitamin B12 1000 mcg Tab) ertugliflozin (Steglatro 15 mg oral tablet) glipiZIDE (glipiZIDE 5 mg Tab) lisinopril (lisinopril 5 mg Tab) omeprazole (omeprazole 40 mg Cap-DR) testosterone (testosterone cypionate 200 mg/mL IM Erin) Procedures Performed Big toe, Tonsillectomy. Discharge Vitals Heart Rate (Peripheral) 74 Respiratory Rate 16 Blood Pressure 139/96 Height 175 cm Height 69 in Weight 144.69 kg Weight 318.318 lb BMI 47.25 What to do next Scheduled Follow-Up Appointments Wednesday 8:00 AM EDT With: Where: [facility] Normal [address] [place] [address]- \.br\ You Need to Schedule the Following Appointments\.br\ Follow Up with Carlos LIZAMA, Lety Scott, SHAYY, URO When: \.br\ Where:\.br\ Medications\.br\ What How Much When Instructions\.br\ New sildenafil (Viagra 100 mg Tab) 1 Tablets By Mouth As Directed as needed for for erectile dysfunction Refills: 5 1 hour before sexual activity. Start with 1/ 2 tablet. Not to exceed 1 tab (100 mg) in 24 hours Pickup at [facility]/pharmacy #[id number]\.br\ Unchanged amlodipine (amLODIPine 5 mg Tab) By Mouth Every day Contact prescribing physician if questions or concerns \.br\ Unchanged ascorbic acid (Vitamin C 250 mg oral tablet) By Mouth Every day Contact prescribing physician if questions or concerns \.br\ Unchanged atorvastatin (atorvastatin 10 mg Tab) By Mouth Every day Contact prescribing physician if questions or concerns \.br\ Unchanged biotin (biotin 1000 mcg oral tablet) 1 Tablets By Mouth Every day Contact prescribing physician if questions or concerns \.br\ Unchanged carvedilol (carvedilol 12.5 mg Tab) By Mouth 2 times a day Contact prescribing physician if questions or concerns \.br\ Unchanged citalopram By Mouth Every day Contact prescribing physician if questions or concerns \.br\ Unchanged cyanocobalamin (Vitamin B12 1000 mcg Tab) By Mouth Every day Contact prescribing physician if questions or concerns \.br\ Unchanged ertugliflozin (Steglatro 15 mg oral tablet) By Mouth Once a day (in the morning) Contact prescribing physician if questions or concerns \.br\ Unchanged glipiZIDE (glipiZIDE 5 mg Tab) By Mouth Every day Contact prescribing physician if questions or concerns \.br\ Unchanged lisinopril (lisinopril 5 mg Tab) By Mouth Every day Contact prescribing physician if questions or concerns \.br\ Unchanged omeprazole (omeprazole 40 mg Cap-DR) By Mouth Every day Contact prescribing physician if questions or concerns \.br\ Unchanged testosterone (testosterone cypionate 200 mg/ mL IM Erin) 150 Milligram Intramuscular Every other week Contact prescribing physician if questions or concerns \.br\ Pharmacy Information\.br\ [facility]/pharmacy #[id number]: [address], [place] [id number] [phone]\.br\ Test Results\.br\ Urnls Dip Stick Auto w/o Microscopy POC [id number] (03/03/2023)\.br\ Bilirubin Urine Dipstick - Negative\.br\ Blood Urine Dipstick - Negative\.br\ Glucose Urine Dipstick - 3+ 1000 mg/dl\.br\ Ketones Urine Dipstick - Negative\.br\ Leukocytes Urine Dipstick - Negative\.br\ Nitrite Urine Dipstick - Negative\.br\ Protein Urine Dipstick - Negative\.br\ Specific Melbeta Urine Dipstick - 1.010\.br\ Urine Appearance Urine Dipstick - Clear\.br\ Urine Color Urine Dipstick - Yellow\.br\ Urobilinogen Urine Dipstick - Normal 0.2-1 EU/dl\.br\ pH Urine Dipstick - 5.5\.br\ Allergies\.br\ metFORMIN (Stomach cramps, Diarrhea)\.br\ Problems\.br\ Ongoing - Any problem that you are currently receiving treatment for.\.br\ Asymptomatic microscopic hematuria\.br\ BPH without urinary obstruction\.br\ ED (erectile dysfunction)\.br\ Former smoker\.br\ Groin pain\.br\ Hypogonadism male\.br\ Low testosterone\.br\ Nocturia\.br\ Education Materials\.br\ Erectile Dysfunction\.br\ Erectile dysfunction (ED) is the inability to get or keep an erection in order to have sexual intercourse. ED is considered a symptom of an underlying disorder and is not considered a disease. ED may include:\.br\ ? \.br\ Inability to get an erection.\.br\ ? \.br\ Lack of enough hardness of the erection to allow penetration.\.br\ ? \.br\ Loss of erection before sex is finished.\.br\ What are the causes?\.br\ This condition may be caused by:\.br\ ? \.br\ Physical causes, such as:\.br\ ? \.br\ Artery problems. This may include heart disease, high blood pressure, atherosclerosis, and diabetes.\.br\ ? \.br\ Hormonal problems, such as low testosterone.\.br \ ? \.br\ Obesity.\.br\ ? \.br\ Nerve problems. This may include back or pelvic injuries, multiple sclerosis, Parkinson's disease, spinal cord injury, and stroke.\.br\ ? \.br\ Certain medicines, such as:\.br\ ? \.br\ Pain relievers.\.br\ ? \.br\ Antidepressants.\ .br\ ? \.br\ Blood pressure medicines and water pills (diuretics).\.br\ ? \.br\ Cancer medicines.\.br\ ? \.br\ Antihistamines.\. br\ ? \.br\ Muscle relaxants.\.br\ ? \.br\ Lifestyle factors, such as:\.br\ ? \.br\ Use of drugs such as marijuana, cocaine, or opioids.\.br\ ? \.br\ Excessive use of alcohol.\.br\ ? \.br\ Smoking.\.br\ ? \.br\ Lack of physical activity or exercise.\.br\ ? \.br\ Psychological causes, such as:\.br\ ? \.br\ Anxiety or stress.\.br\ ? \.br\ Sadness or depression.\.br\ ? \.br\ Exhaustion.\.br\ ? \.br\ Fear about sexual performance.\.br\ ? \.br\ Guilt.\.br\ What are the signs or symptoms?\.br\ Symptoms of this condition include:\.br\ ? \.br\ Inability to get an erection.\.br\ ? \.br\ Lack of enough hardness of the erection to allow penetration.\.br\ ? \.br\ Loss of the erection before sex is finished.\.br\ ? \.br\ Sometimes having normal erections, but with frequent unsatisfactory episodes.\.br\ ? \.br\ Low sexual satisfaction in either partner due to erection problems.\.br\ ? \.br\ A curved penis occurring with erection. The curve may cause pain, or the penis may be too curved to allow for intercourse.\.br\ ? \.br\ Never having nighttime or morning erections.\.br\ How is this diagnosed?\.br\ This condition is often diagnosed by:\.br\ ? \.br\ Performing a physical exam to find other diseases or specific problems with the penis.\.br\ ? \.br\ Asking you detailed questions about the problem.\.br\ ? \.br\ Doing tests, such as:\.br\ ? \.br\ Blood tests to check for diabetes mellitus or high cholesterol, or to measure hormone levels.\.br\ ? \.br\ Other tests to check for underlying health conditions.\.br\ ? \.br\ An ultrasound exam to check for scarring.\.br\ ? \.br\ A test to check blood flow to the penis.\.br\ ? \.br\ Doing a sleep study at home to measure nighttime erections.\.br\ How is this treated?\.br\ This condition may be treated by:\.br\ ? \.br\ Medicines, such as:\.br\ ? \.br\ Medicine taken by mouth to help you achieve an erection (oral medicine).\.br\ ? \.br\ Hormone replacement therapy to replace low testosterone levels.\.br\ ? \.br\ Medicine that is injected into the penis. Your health care provider may instruct you how to give yourself these injections at home.\.br\ ? \.br\ Medicine that is delivered with a short applicator tube. The tube is inserted into the opening at the tip of the penis, which is the opening of the urethra. A tiny pellet of medicine is put in the urethra. The pellet dissolves and enhances erectile function. This is also called MUSE (medicated urethral system for erections) therapy.\.br\ ? \.br\ Vacuum pump. This is a pump with a ring on it. The pump and ring are placed on the penis and used to create pressure that helps the penis become erect.\.br\ ? \.br\ Penile implant surgery. In this procedure, you may receive:\.br\ ? \.br\ An inflatable implant. This consists of cylinders, a pump, and a reservoir. The cylinders can be inflated with a fluid that helps to create an erection, and they can be deflated after intercourse.\.br\ ? \.br\ A semi-rigid implant [facility] Patient Educationon 03-03-20 23 Patient Education Urology Erectile Dysfunction Erectile dysfunction (ED) is the inability to get or keep an erection in order to have sexual intercourse. ED is considered a symptom of an underlying disorder and is not considered a disease. ED may include: ? Inability to get an erection. ? Lack of enough hardness of the erection to allow penetration. ? Loss of erection before sex is finished. What are the causes? This condition may be caused by: ? Physical causes, such as: ? Artery problems. This may include heart disease, high blood pressure, atherosclerosis, and diabetes. ? Hormonal problems, such as low testosterone. ? Obesity. ? Nerve problems. This may include back or pelvic injuries, multiple sclerosis, Parkinson's disease, spinal cord injury, and stroke. ? Certain medicines, such as: ? Pain relievers. ? Antidepressants. ? Blood pressure medicines and water pills (diuretics). ? Cancer medicines. ? Antihistamines. ? Muscle relaxants. ? Lifestyle factors, such as: ? Use of drugs such as marijuana, cocaine, or opioids. ? Excessive use of alcohol. ? Smoking. ? Lack of physical activity or exercise. ? Psychological causes, such as: ? Anxiety or stress. ? Sadness or depression. ? Exhaustion. ? Fear about sexual performance. ? Guilt. What are the signs or symptoms? Symptoms of this condition include: ? Inability to get an erection. ? Lack of enough hardness of the erection to allow penetration. ? Loss of the erection before sex is finished. ? Sometimes having normal erections, but with frequent unsatisfactory episodes. ? Low sexual satisfaction in either partner due to erection problems. ? A curved penis occurring with erection. The curve may cause pain, or the penis may be too curved to allow for intercourse. ? Never having nighttime or morning erections. How is this diagnosed? This condition is often diagnosed by: ? Performing a physical exam to find other diseases or specific problems with the penis. ? Asking you detailed questions about the problem. ? Doing tests, such as: ? Blood tests to check for diabetes mellitus or high cholesterol, or to measure hormone levels. ? Other tests to check for underlying health conditions. ? An ultrasound exam to check for scarring. ? A test to check blood flow to the penis. ? Doing a sleep study at home to measure nighttime erections. How is this treated? This condition may be treated by: ? Medicines, such as: ? Medicine taken by mouth to help you achieve an erection (oral medicine). ? Hormone replacement therapy to replace low testosterone levels. ? Medicine that is injected into the penis. Your health care provider may instruct you how to give yourself these injections at home. ? Medicine that is delivered with a short applicator tube. The tube is inserted into the opening at the tip of the penis, which is the opening of the urethra. A tiny pellet of medicine is put in the urethra. The pellet dissolves and enhances erectile function. This is also called MUSE (medicated urethral system for erections) therapy. ? Vacuum pump. This is a pump with a ring on it. The pump and ring are placed on the penis and used to create pressure that helps the penis become erect. ? Penile implant surgery. In this procedure, you may receive: ? An inflatable implant. This consists of cylinders, a pump, and a reservoir. The cylinders can be inflated with a fluid that helps to create an erection, and they can be deflated after intercourse. ? A semi-rigid implant. This consists of two silicone rubber rods. The rods provide some rigidity. They are also flexible, so the penis can both curve downward in its normal position and become straight for sexual intercourse. ? Blood vessel surgery to improve blood flow to the penis. During this procedure, a blood vessel from a different part of the body is placed into the penis to allow blood to flow around (bypass) damaged or blocked blood vessels. ? Lifestyle changes, such as exercising more, losing weight, and quitting smoking. Follow these instructions at home: Medicines ? Take rowf-imr-ajmnafw and prescription medicines only as told by your health care provider. Do not increase the dosage without first discussing it with your health care provider. ? If you are using self-injections, do injections as directed by your health care provider. Make sure you avoid any veins that are on the surface of the penis. After giving an injection, apply pressure to the injection site for 5 minutes. ? Talk to your health care provider about how to prevent headaches while taking ED medicines. These medicines may cause a sudden headache due to the increase in blood flow in your body. General instructions ? Exercise regularly, as directed by your health care provider. Work with your health care provider to lose weight, if needed. ? Do not use any products that contain nicotine or tobacco. These products include cig (more content not included)... Normal [facility] Urology Office/Clinic Noteon 03-03-2023 Urology Office/Clinic Note Chief Complaint 3m follow up HPI Staff 3m follow up to review labs. Pt receives 150mg Testosterone Injections q2wks for Tx of Hypogonadism. Dosage was increased at end of November. Additional DX: BPH & Groin Pain *No additional Urology Medications. PSA 02/24/23-- 3.6 HCT 02/24/23- 46.7 HGB 02/24/23- 15.6 T 02/24/23- 390 ([id number]) patient denies any past or current urinary complaints at this time Painful urination: no Blood in urine: no urinary frequency: no urinary urgency: no incomplete emptying: no nocturia: no weak stream: no post void dribbling: no urinary incontinence: no History of Present Illness Tests reviewed: reviewed UA, Labs I have reviewed the previous health record information and history for this patient from Dr. Gonzalez. I have reviewed and verified the staff HPI to be accurate for this encounter. There have been no associated fever, chills, flank pain, or blood in the urine. Denies any urinary infections since last encounter. Review of Systems ROS - Provider Constitutional: denies weight loss, denies hot flashes. Eyes: denies eye problems. Gastrointestinal: denies nausea, denies vomiting. Cardiovascular: denies chest pain or angina. Integumentary: no dryness Musculoskeletal: denies musculoskeletal symptoms. ENMT: denies otolaryngeal symptoms. Respiratory: no shortness of breath. Heme/Lymph: denies easy bleeding tendency, denies easy bruising tendency. Psychiatric: no confusion, no anxiety. Genitourinary: See HPI. Physical Exam Vitals & Measurements HR: 74(Peripheral) RR: 16 BP: 139/96 HT: 69 in HT: 175 cm WT: 144.69 kg WT: 318.318 lb BMI: 47.25 General Appearance: alert, no distress, well nourished, well developed male. Genitourinary: Prostate: mild to moderately enlarged prostate, no hard nodule observed. Assessment/Plan 1. Hypogonadism male (E29.1: Testicular hypofunction) Testosterone: 05/13/22 - 323 07/29/22 - 830, on 200 mg q2w 11/18/22 - 234, on 100 mg q2wk 02/24/23 - 390, on 150 mg q2wk Hct wnl No change in sx with high or low dose, some improvement overall since starting therapy. Discussed starting a testosterone gel if pt was not satisfied with the injections. Pt states he prefers continuing the injections. -Cont nurse visit q2wk for injections at 150 mg IM q2w. Risks/benefits discussed. -Repeat PSA and if still elevated, will discuss d/c TRT and proceeding with malignancy workup given significant increase -Diet and exercise 2. BPH without urinary obstruction (N40.0: Benign prostatic hyperplasia without lower urinary tract symptoms) PSA 10/2021 - 0.7, 41% free 02/24/23 - 3.6 Advised pt to not do any prostate stimulating activity before test. UA today shows GLU >=1000 mg/dL. IPSS (2). Not taking any BPH meds. No urinary complaints. EVERARDO benign Counseled on importance of PSA monitoring, was not obtained when ordered for last visit. -Follow up with PSA F/T in 2 mos. If still elevated, will proceed with MRI prostate +/- biopsy. Pt understands and agrees with plan. 3. ED (erectile dysfunction) (N52.9: Male erectile dysfunction, unspecified) Pt states he is not able to get an erection at all. Discussed etiologies including obesity, DM2, metabolic syndrome, hypogonadism, CAD. Discussed options for ED, including oral medications, erection pumps, MUSE intraurethral pellet, intracorporal injection therapy, and surgical options. -Will start Viagra 100mg PRN to pharmacy on file. Discussed the medication side effects, and the patient will monitor closely for these, as well as for symptom improvement. If severe side effects occur, the medication should be stopped and the office notified. Advised pt to start with half a tab an hour before sexual disfunction and see how he tolerates it. Follow-up With When Contact Information Carlos LIZAMA, Lety Scott, URL, URO Additional Instructions: w/ PSA Patient Education Erectile Dysfunction I, Judith Bell, personally scribed for Dr. Gonzalez on 03/03/2023 10:41:20. . Documentation recorded by the scribe, Judith Bell, accurately reflects the services(s) I performed and decisions made by me. Authenticated by Dr. Gonzalez on 03/03/2023 21:55:58. Problem List/Past Medical History Ongoing Asymptomatic microscopic hematuria BPH without urinary obstruction ED (erectile dysfunction) Former smoker Groin pain Hypogonadism male Low testosterone Nocturia Historical No qualifying data Procedure/Surgical History Big toe, Tonsillectomy. Medications amLODIPine 5 mg Tab, Oral, Daily atorvastatin 10 mg Tab, Oral, Daily biotin 1000 mcg oral tablet, 1000 mcg= 1 tab(s), Oral, Daily carvedilol 12.5 mg Tab, Oral, BID citalopram, Oral, Daily glipiZIDE 5 mg Tab, Oral, Daily lisinopril 5 mg Tab, Oral, Daily omeprazole 40 mg Cap-DR, Oral, Daily Steglatro 15 mg oral tablet, Oral, qAM testosterone cypionate 200 mg/mL IM Erin, 150 mg, (more content not included)... Normal [facility] Comment on above: Result Comment: Elec tronically Signed By: Carlos LIZAMA, Lety Scott\.br\Date and Time Signed: 03/03/23 21:57 EDT\.br\Electronically Co-Signed By: Judith Bell\.br\Date and Time Co-Signed: 03/03/23 10:41 EDT Testost Totalon 02-26-2023 Testosterone [Mass/Vol] 390 ng/dL Invalid Interpretation Code [id number] [facility] Comment on above: Result Comment: Adul t male reference interval is based on a population of healthy nonobese males (BMI <30) between 19 and 39 years old. irina Lester.al. JCEM 2017,102;[id number]. PMID: [id number]. Performed at: [facility] [id number] PhD Arianne Fonseca Performed By: #### 2 [id number] ####[facility] [address] [place] [address] Ambulatory Visit Summaryon 0 02-24-2023 Ambulatory Visit Summary JOHNATHAN AMBROSIO :1960 Visit Date:02/24/2023 Ambulatory Visit Instructions Your Diagnosis Hypogonadism male Your Care Team Attending Physician - Carlos LIZAMA, Lety Scott Primary Care Physician - DASIA JEFFREY MD This Is Your Medications List amlodipine (amLODIPine 5 mg Tab) ascorbic acid (Vitamin C 250 mg oral tablet) atorvastatin (atorvastatin 10 mg Tab) biotin (biotin 1000 mcg oral tablet) carvedilol (carvedilol 12.5 mg Tab) citalopram cyanocobalamin (Vitamin B12 1000 mcg Tab) ertugliflozin (Steglatro 15 mg oral tablet) glipiZIDE (glipiZIDE 5 mg Tab) lisinopril (lisinopril 5 mg Tab) omeprazole (omeprazole 40 mg Cap-DR) testosterone (testosterone cypionate 200 mg/mL IM Erin) Procedures Performed Big toe, Tonsillectomy. What to do next Scheduled Follow-Up Appointments Wednesday 9:45 AM EDT With: Lety Gonzalez MD Where: [facility] [place] Normal [facility] CHEMISTRYOrdered By: SYSTEM SYSTEM on 02-24-2023 Prostate specific Ag [Mass/Vol] 3.6 ng/mL High 0.1 - 3.5 ng/mL FT Remisol HEMATOLOGYOrdered By: Emily Churchill on 02-24-2023 Hematocrit (Bld) [Volume fraction] 46.7 % Normal 37.7 - 49.0 % FT HemeAutoSS Hemoglobin (Bld) [Mass/Vol] 15.6 g/dL Normal 13.5 - 17.5 gm/dL [facility] HemeAutoSS Hematocriton 02-24-2023 Hematocrit (Bld) [Volume fraction] 46.7 % Normal 37.7-49.0 [facility] Comment on above: Performed By: #### 2 [id number] ####[facility] [address] [place] [address] Hemoglobinon 02-24-2023 Hemoglobin (Bld) [Mass/Vol] 15.6 g/dL Normal 13.5-17.5 [facility] Comment on above: Performed By: #### 2 [id number], [id number] ####[facility] [address] [place] [address] PSA Totalon 02-24-2023 Prostate specific Ag [Mass/Vol] 3.6 ng/mL High 0.1-3.5 [facility] Comment on above: Result Comment: The concentration of PSA determined by different manufacturers can vary due to differences in assay methods and reagent specificity. Values obtained from different assay methods cannot be used interchangeably. The methodology used for this result was chemiluminescence using [employer]'s Access Hybritech PSA reagent. Performed By: #### 2 [id number], [id number] ####[facility] [address] [place] [address] Ambulatory Visit Summaryon 0 02-03-2023 Ambulatory Visit Summary JOHNATHAN AMBROSIO :1960 Visit Date:02/03/2023 Ambulatory Visit Instructions Your Diagnosis Hypogonadism male Your Care Team Attending Physician - HARRY MARQUEZ PA-C Primary Care Physician - DASIA JEFFREY MD This Is Your Medications List amlodipine (amLODIPine 5 mg Tab) ascorbic acid (Vitamin C 250 mg oral tablet) atorvastatin (atorvastatin 10 mg Tab) biotin (biotin 1000 mcg oral tablet) carvedilol (carvedilol 12.5 mg Tab) citalopram cyanocobalamin (Vitamin B12 1000 mcg Tab) ertugliflozin (Steglatro 15 mg oral tablet) glipiZIDE (glipiZIDE 5 mg Tab) lisinopril (lisinopril 5 mg Tab) omeprazole (omeprazole 40 mg Cap-DR) testosterone (testosterone cypionate 200 mg/mL IM Erin) Procedures Performed Big toe, Tonsillectomy. What to do next Scheduled Follow-Up Appointments Wednesday 8:00 AM EDT With: Where: [facility] Normal [address] [place] [address] [place] [address]- \.br\ Medications\.br\ What How Much When Instructions\.br\ Unchanged amlodipine (amLODIPine 5 mg Tab) By Mouth Every day\.br\ Unchanged ascorbic acid (Vitamin C 250 mg oral tablet) By Mouth Every day\.br\ Unchanged atorvastatin (atorvastatin 10 mg Tab) By Mouth Every day\.br\ Unchanged biotin (biotin 1000 mcg oral tablet) 1 Tablets By Mouth Every day\.br\ Unchanged carvedilol (carvedilol 12.5 mg Tab) By Mouth 2 times a day\.br\ Unchanged citalopram By Mouth Every day\.br\ Unchanged cyanocobalamin (Vitamin B12 1000 mcg Tab) By Mouth Every day\.br\ Unchanged ertugliflozin (Steglatro 15 mg oral tablet) By Mouth Once a day (in the morning)\.br\ Unchanged glipiZIDE (glipiZIDE 5 mg Tab) By Mouth Every day\.br\ Unchanged lisinopril (lisinopril 5 mg Tab) By Mouth Every day\.br\ Unchanged omeprazole (omeprazole 40 mg Cap-DR) By Mouth Every day\.br\ Unchanged testosterone (testosterone cypionate 200 mg/ mL IM Erin) 150 Milligram Intramuscular Every other week\.br\ Medications and Immunizations Administered\.br\ Given\.br\ Depo-Testosterone 200 mg/mL intramuscular solution, 150 mg, IntraMuscular. For: Hypogonadism male\.br\ Allergies\.br\ metFORMIN (Stomach cramps, Diarrhea)\.br\ Problems\.br\ Ongoing - Any problem that you are currently receiving treatment for.\.br\ Asymptomatic microscopic hematuria\.br\ BPH without urinary obstruction\.br\ ED (erectile dysfunction)\.br\ Former smoker\.br\ Groin pain\.br\ Hypogonadism male\.br\ Low testosterone\.br\ Nocturia\.br\ \.br\ [facility] Ambulatory Visit Summaryon 0 01-19-2023 Ambulatory Visit Summary JOHNATHAN AMBROSIO :1960 Visit Date:01/19/2023 Ambulatory Visit Instructions Your Care Team Attending Physician - Carlos LIZAMA, Lety Scott Primary Care Physician - DASIA JEFFREY MD This Is Your Medications List amlodipine (amLODIPine 5 mg Tab) ascorbic acid (Vitamin C 250 mg oral tablet) atorvastatin (atorvastatin 10 mg Tab) biotin (biotin 1000 mcg oral tablet) carvedilol (carvedilol 12.5 mg Tab) citalopram cyanocobalamin (Vitamin B12 1000 mcg Tab) ertugliflozin (Steglatro 15 mg oral tablet) glipiZIDE (glipiZIDE 5 mg Tab) lisinopril (lisinopril 5 mg Tab) omeprazole (omeprazole 40 mg Cap-DR) testosterone (testosterone cypionate 200 mg/mL IM Erin) Procedures Performed Big toe, Tonsillectomy. What to do next Scheduled Follow-Up Appointments Wednesday 8:00 AM EDT With: Where: [facility] Invalid Interpretation Code [address] [place] [address] [place] [address]- \.br\ Wednesday 9:45 AM EDT \.br\ With: Carlos LIZAMA, Lety Scott\.br\ Where: [facility] Falls Screening (Age 18+)on 12-22-2022 Fall risk assessment c) Not medically indicated [facility] [employer] [place] [address] DO Work Phone: Tobacco use status [facility]PH[facility] b) No [facility] [place] [address] DO Work Phone: Falls Screening (Age 18+) Yes [facility] [employer] [place] [address] DO Work Phone: CBC AUTO DIFFon 04-13-2023 BASO # 0.1 103/ul Normal 0.0-0.1 [facility] Comment on above: Performed By: #### C VDTBH #### [facility] [address] [place] [address] Dr. Talia Plascencia Basophils/100 WBC (Bld) 0.6 % Normal 0.2-2.0 [facility] Comment on above: Performed By: #### C VDTBH #### [facility] [address] [place] [address] Dr. Talia Plascencia EO # 0.5 103/ul Normal 0.0-0.7 [facility] Comment on above: Performed By: #### C VDTBH #### [facility] [address] [place] [address] Dr. Talia Plascencia Eosinophils/100 WBC (Bld) 5.4 % Normal 0.9-7.0 [facility] Comment on above: Performed By: #### C VDTBH #### [facility] [address] [place] [address] Dr. Talia Plascencia Erythrocyte distribution width (RBC) [Ratio] 15.6 % Critically high 11.0-15.0 [facility] Comment on above: Performed By: #### C VDTBH #### [facility] [address] [place] [address] Dr. Talia Plascencia Hematocrit (Bld) [Volume fraction] 45.6 % Normal 42.0-54.0 [facility] Comment on above: Performed By: #### C VDTBH #### [facility] [address] [place] [address] Dr. Talia Plascencia Hemoglobin (Bld) [Mass/Vol] 15.8 g/dL Normal 14.0-18.0 [facility] Comment on above: Performed By: #### C VDTBH #### [facility] [address] [place] [address] Dr. Talia Plascencia IG # 0.02 10e3/ul Normal 0.00-0.03 [facility] Comment on above: Performed By: #### C VDTBH #### [facility] [address] [place] [address] Dr. Talia Plascencia IG % 0.2 % Normal 0.0-0.5 [facility] Comment on above: Performed By: #### C VDTBH #### [facility] [address] [place] [address] Dr. Talia Plascencia LYMPH # 1.8 103/ul Normal 1.2-3.8 [facility] Comment on above: Performed By: #### C VDTBH #### [facility] [address] [place] [address] Dr. Talia Plascencia Lymphocytes/100 WBC (Bld) 22.0 % Normal 20.5-60.0 [facility] Comment on above: Performed By: #### C VDTBH #### [facility] [address] [place] [address] Dr. Talia Plascencia MANUAL DIFF REQ NO Normal [facility] Comment on above: Performed By: #### C VDTBH #### [facility] [address] [place] [address] Dr. Talia Plascencia MCH (RBC) [Entitic mass] 27.4 pg Normal 25.9-34.0 [facility] Comment on above: Performed By: #### C VDTBH #### [facility] [address] [place] [address] Dr. Talia Plascencia MCHC (RBC) [Mass/Vol] 34.6 g/dL Normal 29.9-35.2 [facility] Comment on above: Performed By: #### C VDTBH #### [facility] [address] [place] [address] Dr. Talia Plascencia MCV (RBC) [Entitic vol] 79.2 fL Critically low 80.0-94.0 [facility] Comment on above: Performed By: #### C VDTBH #### [facility] [address] [place] [address] Dr. Talia Plascencia MONO # 0.7 103/ul Normal 0.3-0.8 [facility] Comment on above: Performed By: #### C VDTBH #### [facility] [address] [place] [address] Dr. Talia Plascencia Monocytes/100 WBC (Bld) 7.9 % Normal 1.7-12.0 [facility] Comment on above: Performed By: #### C VDTBH #### [facility] [address] [place] [address] Dr. Talia Plascencia NEUT # 5.3 103/ul Normal 1.4-6.5 [facility] Comment on above: Performed By: #### C VDTBH #### [facility] [address] [place] [address] Dr. Talia Plascencia Neutrophils/100 WBC (Bld) 63.9 % Normal 43.0-75.0 [facility] Comment on above: Performed By: #### C VDTBH #### [facility] [address] [place] [address] Dr. Talia Plascencia Platelet mean volume (Bld) [Entitic vol] 10.8 fL Normal 9.5-13.5 [facility] Comment on above: Performed By: #### C VDTBH #### [facility] [address] [place] [address] Dr. Talia Plascencia PLT 218 103/ul Normal 150-450 [facility] Comment on above: Performed By: #### C VDTBH #### [facility] [address] [place] [address] Dr. Talia Plascencia RBC 5.76 106/ul Normal 4.70-6.10 [facility] Comment on above: Performed By: #### C VDTBH #### [facility] [address] [place] [address] Dr. Talia Plascencia WBC 8.3 103/ul Normal 4.0-11.0 [facility] Comment on above: Performed By: #### C VDTBH #### [facility] [address] [place] [address] Dr. Talia Plascencia GLYCOHEMOGLOBIN A1Con 2022 ADA RECOMMENDATION SEE BELOW Normal [facility] Comment on above: Result Comment: ADA RECOMMENDED LIMIT 4.0 - 6.0 ADA THERAPEUTIC TARGET < 7.0 ACTION SUGGESTED > 7.0 Performed By: #### I NFLUAB #### [facility] [address] [address] [address] Talia Plascencia Glucose [Mass/Vol] 203 mg/dL Normal [facility] Comment on above: Performed By: #### I NFLUAB #### [facility] [address] [address] [address] Talia Plascencia HbA1c (Bld) [Mass fraction] 8.7 % Critically high 4.5-6.2 [facility] Comment on above: Performed By: #### I NFLUAB #### [facility] [address] [address] [address] Talia Plascencia LIPID PROFILEon 12-17-2022 CHOL-HDL RATIO NORM SEE BELOW Normal [facility] Comment on above: Result Comment: 3.3 - 4.4 LOW RISK 4.4 - 7.1 AVERAGE RISK 7.1 - 11.0 MODERATE RISK >11.0 HIGH RISK Performed By: #### P OCGLUC #### [facility] [address] [place] [address] Dr. Talia Plascencia Cholesterol [Mass/Vol] 120 mg/dL Normal <=200 [facility] Comment on above: Performed By: #### P OCGLUC #### [facility] [address] [address] [address] Talia Plascencia Cholesterol in HDL [Mass/Vol] 28 mg/dL Critically low 40-60 [facility] Comment on above: Performed By: #### P OCGLUC #### [facility] [address] [address] [address] Talia Plascencia Cholesterol in LDL [Mass/Vol] 67.6 mg/dL Normal [facility] Comment on above: Performed By: #### P OCGLUC #### [facility] [address] [address] [address] Talia Plascencia Cholesterol.total/Ch olesterol in HDL [Mass ratio] 4.3 {ratio} Normal [facility] Comment on above: Performed By: #### P OCGLUC #### [facility] [address] [address] [address] Talia Plascencia HDL NORMAL > or = 60 mg/dl - LOW CARDIOVASCULAR RISK <40 mg/dl - HIGH CARDIOVASCULAR RISK Normal [facility] Comment on above: Performed By: #### P OCGLUC #### [facility] [address] [address] [address] Tlaia Plascencia LDL CALC NORMAL SEE BELOW Normal [facility] Comment on above: Result Comment: <100 mg/dl OPTIMAL 100 - 129 mg/dl NEAR OR ABOVE OPTIMAL 130 - 159 mg/dl BORDERLINE HIGH 160 - 189 mg/dl HIGH >190 mg/dl VERY HIGH Performed By: #### P OCGLUC #### [facility] [address] [address] [address] Talia Plascencia Triglyceride [Mass/Vol] 122 mg/dL Normal <=150 [facility] Comment on above: Performed By: #### P OCGLUC #### [facility] [address] [address] [address] Talia Plascencia VLDL CALC 24.4 mg/dL Normal [facility] Comment on above: Performed By: #### P OCGLUC #### [facility] [address] [address] [address] Talia Plascencia PROF 14(COMP METB)on 023 Albumin [Mass/Vol] 3.8 g/dL Normal 3.4-5.0 [facility] Comment on above: Performed By: #### P OCGLUC #### [facility] [address] [address] [address] Talia Plascencia Albumin/Globulin [Mass ratio] 1.0 {ratio} Normal [facility] Comment on above: Performed By: #### P OCGLUC #### [facility] [address] [address] [address] Talia Plascencia ALP [Catalytic activity/Vol] 73 U/L Normal 46-116 [facility] Comment on above: Performed By: #### P OCGLUC #### [facility] [address] [address] [address] Talia Plascencia ALT [Catalytic activity/Vol] 22 U/L Normal 16-63 [facility] Comment on above: Performed By: #### P OCGLUC #### [facility] [address] [address] [address] Talia Plascencia Anion gap [Moles/Vol] 10.7 mmol/L Normal [facility] Comment on above: Performed By: #### P OCGLUC #### [facility] [address] [address] [address] Talia Plascencia AST [Catalytic activity/Vol] 31 U/L Normal 15-37 [facility] Comment on above: Performed By: #### P OCGLUC #### [facility] [address] [address] [address] Talia Plascencia Bilirubin [Mass/Vol] 0.6 mg/dL Normal 0.2-1.0 [facility] Comment on above: Performed By: #### P OCGLUC #### [facility] [address] [address] [address] Talia Plascencia Calcium [Mass/Vol] 9.5 mg/dL Normal 8.5-10.1 [facility] Comment on above: Performed By: #### P OCGLUC #### [facility] [address] [address] [address] Talia Plascencia Chloride [Moles/Vol] 102 mmol/L Normal 98-107 [facility] Comment on above: Performed By: #### P OCGLUC #### [facility] [address] [address] [address] Talia Plascencia CO2 [Moles/Vol] 28.9 mmol/L Normal 21.0-32.0 [facility] Comment on above: Performed By: #### P OCGLUC #### [facility] [address] [address] [address] Talia Plascencia Creatinine [Mass/Vol] 1.27 mg/dL Normal 0.70-1.30 [facility] Comment on above: Performed By: #### P OCGLUC #### [facility] [address] [address] [address] Talia Plascencia EGFR-AF BAHRAINI >60 Normal >=60 [facility] Comment on above: Performed By: #### P OCGLUC #### [facility] [address] [address] [address] Talia Plascencia EGFR-NON AF BAHRAINI 57 mL/min/1.73m2 Critically low >=60 [facility] Comment on above: Performed By: #### P OCGLUC #### [facility] [address] [address] [address] Talia Plascencia Globulin (S) [Mass/Vol] 3.9 g/dL Normal [facility] Comment on above: Performed By: #### P OCGLUC #### [facility] [address] [address] [address] Talia Plascencia Glucose [Mass/Vol] 209 mg/dL Critically high 74-106 [facility] Comment on above: Performed By: #### P OCGLUC #### [facility] [address] [address] [address] Talia Plascencia Potassium [Moles/Vol] 4.6 mmol/L Normal 3.5-5.1 [facility] Comment on above: Performed By: #### P OCGLUC #### [facility] [address] [address] [address] Talia Plascencia Protein [Mass/Vol] 7.7 g/dL Normal 6.4-8.2 [facility] Comment on above: Performed By: #### P OCGLUC #### [facility] [address] [address] [address] Talia Plascencia Sodium [Moles/Vol] 137 mmol/L Normal 136-145 [facility] Comment on above: Performed By: #### P OCGLUC #### [facility] [address] [address] [address] Talia Plascencia Urea nitrogen [Mass/Vol] 22.0 mg/dL Critically high 7.0-18.0 [facility] Comment on above: Performed By: #### P OCGLUC #### [facility] [address] [address] [address] Talia Plascencia Urea nitrogen/Creatinine [Mass ratio] 17.3 mg/mg Normal [facility] Comment on above: Performed By: #### P OCGLUC #### [facility] [address] [place] [address] Dr. Talia Plascencia Ambulatory Visit Summaryon 0 12-09-2022 Ambulatory Visit Summary JOHNATHAN AMBROSIO :1960 Visit Date:12/09/2022 Ambulatory Visit Instructions Your Diagnosis Hypogonadism male Your Care Team Attending Physician - Carlos LIZAMA, Lety Scott Primary Care Physician - WOJCIECH LIZAMA, DASIA This Is Your Medications List amlodipine (amLODIPine 5 mg Tab) ascorbic acid (Vitamin C 250 mg oral tablet) atorvastatin (atorvastatin 10 mg Tab) biotin (biotin 1000 mcg oral tablet) carvedilol (carvedilol 12.5 mg Tab) citalopram cyanocobalamin (Vitamin B12 1000 mcg Tab) ertugliflozin (Steglatro 15 mg oral tablet) glipiZIDE (glipiZIDE 5 mg Tab) lisinopril (lisinopril 5 mg Tab) omeprazole (omeprazole 40 mg Cap-DR) testosterone (testosterone cypionate 200 mg/mL IM Erin) Procedures Performed Big toe, Tonsillectomy. What to do next Scheduled Follow-Up Appointments Wednesday 8:00 AM EDT With: Where: [facility] Normal [address] [id number] [phone].br\ Medications\.br\ What How Much When Instructions\.br\ Unchanged amlodipine (amLODIPine 5 mg Tab) By Mouth Every day\.br\ Unchanged ascorbic acid (Vitamin C 250 mg oral tablet) By Mouth Every day\.br\ Unchanged atorvastatin (atorvastatin 10 mg Tab) By Mouth Every day\.br\ Unchanged biotin (biotin 1000 mcg oral tablet) 1 Tablets By Mouth Every day\.br\ Unchanged carvedilol (carvedilol 12.5 mg Tab) By Mouth 2 times a day\.br\ Unchanged citalopram By Mouth Every day\.br\ Unchanged cyanocobalamin (Vitamin B12 1000 mcg Tab) By Mouth Every day\.br\ Unchanged ertugliflozin (Steglatro 15 mg oral tablet) By Mouth Once a day (in the morning)\.br\ Unchanged glipiZIDE (glipiZIDE 5 mg Tab) By Mouth Every day\.br\ Unchanged lisinopril (lisinopril 5 mg Tab) By Mouth Every day\.br\ Unchanged omeprazole (omeprazole 40 mg Cap-DR) By Mouth Every day\.br\ Unchanged testosterone (testosterone cypionate 200 mg/ mL IM Erin) 150 Milligram Intramuscular Every other week\.br\ Medications and Immunizations Administered\.br\ Given\.br\ Depo-Testosterone 200 mg/mL intramuscular solution, 150 mg, IntraMuscular. For: Hypogonadism male\.br\ Allergies\.br\ metFORMIN (Stomach cramps, Diarrhea)\.br\ Problems\.br\ Ongoing - Any problem that you are currently receiving treatment for.\.br\ Asymptomatic microscopic hematuria\.br\ BPH without urinary obstruction\.br\ ED (erectile dysfunction)\.br\ Former smoker\.br\ Groin pain\.br\ Hypogonadism male\.br\ Low testosterone\.br\ Nocturia\.br\ \.br\ [facility] HEMATOLOGYOrdered By: SYSTEM SYSTEM on 11-20-2022 Basophils/100 WBC (Bld) 0.8 % Normal 0.0 - 2.0 % [facility] Basophils/Leukocytes Auto (Bld) [Pure # fraction] 0.1 E9/L Normal 0.0 - 0.2 E9/L [facility] Eosinophils/100 WBC (Bld) 4.9 % Normal 0.0 - 8.0 % [facility] Eosinophils/Leukocyt es Auto (Bld) [Pure # fraction] 0.4 E9/L Normal 0.0 - 0.5 E9/L [facility] Lymphocytes/100 WBC (Bld) 15.6 % Normal 14.0 - 50.0 % [facility] Lymphocytes/Leukocyt es Auto (Bld) [Pure # fraction] 1.4 E9/L Normal 1.0 - 4.0 E9/L [facility] Monocytes/100 WBC (Bld) 7.1 % Normal 4.0 - 14.0 % [facility] Monocytes/Leukocytes Auto (Bld) [Pure # fraction] 0.6 E9/L Normal 0.2 - 1.0 E9/L [facility] Neutrophils/100 WBC (Bld) 71.6 % Normal 36.0 - 75.0 % [facility] Neutrophils/Leukocyt es Auto (Bld) [Pure # fraction] 6.4 E9/L Normal 2.0 - 7.5 E9/L [facility] HEMATOLOGYOrdered By: Lexii Kelly on 11-20-2022 Erythrocyte distribution width (RBC) [Ratio] 16.1 % High 10.9 - 14.2 % [facility] Hematocrit (Bld) [Volume fraction] 48.8 % Normal 37.7 - 49.0 % [facility] Hemoglobin (Bld) [Mass/Vol] 15.9 g/dL Normal 13.5 - 17.5 gm/dL [facility] MCH (RBC) [Entitic mass] 26.6 pg Low 27.0 - 34.0 pg [facility] MCHC (RBC) [Mass/Vol] 32.5 g/dL Normal 31.4 - 36.0 gm/dL [facility] MCV (RBC) [Entitic vol] 81.9 fL Normal 80.0 - 100.0 fL [facility] Platelet mean volume (Bld) [Entitic vol] 9.5 fL Normal 6.4 - 10.8 fL [facility] Platelets (Bld) [#/Vol] 205.0 E9/L Normal 150.0 - 500.0 E9/L [facility] RBC (Bld) [#/Vol] 6.0 E12/L High 4.3 - 5.9 E12/L [facility] WBC corrected for nucl RBC Auto (Bld) [#/Vol] 8.9 E9/L Normal 4.0 - 11.0 E9/L [facility] XR ABD FLAT UP_PA Rahat 08-05 XR ABD FLAT UP_PA CH ACUTE ABDOMINAL SERIES HISTORY: Vomiting and diarrhea for 2 days TECHNIQUE: A single view of the chest and 5 views of the abdomen and pelvis are submitted for review. COMPARISON: 09/21/2020 chest x-ray FINDINGS: Chest x-ray: The lungs are adequately expanded. Mild prominence of interstitial lung markings. There is no acute infiltrate. There is no evidence for effusion. The cardiomediastinal silhouette measures within normal limits. Pulmonary vascularity is upper limits of normal. Osseous structures are within normal limits for age.. Abdomen: There is no evidence of free air.. Air filled bowel with prominent small bowel folds measures outside limits of normal measuring up to 6.8 cm. There are no abnormal calcifications. Osseous structures are within normal limits. IMPRESSION: Chest x-ray: Mild prominence of interstitial markings which can be seen in cases of edema, viral pneumonia, chronic changes and/or combination of the above. Please correlate clinically. Abdomen: 1. Air-filled bowel with prominent small bowel folds measuring outside limits of normal. Please correlate for SBO versus ileus. 2. No significant retention of stool. Electronically authenticated by: CARLY PRESCOTT Date: 2022-08-04 23:39 Normal [facility] ACETONE SERUMon 08-04-2022 ACETONE SMALL Abnormal NEGATIVE [facility] Comment on above: Performed By: #### C BCMAN #### [facility] [address] [place] [address] Dr. Talia Plascencia CBC AUTO DIFFon 08-04-2022 BASO # 0.1 103/ul Normal 0.0-0.1 [facility] Comment on above: Performed By: #### C VDTB #### [facility] [address] [place] [address] Dr. Talia Plascencia Basophils/100 WBC (Bld) 0.5 % Normal 0.2-2.0 [facility] Comment on above: Performed By: #### C VDTB #### [facility] [address] [place] [address] Dr. Talia Plascencia EO # 0.1 103/ul Normal 0.0-0.7 [facility] Comment on above: Performed By: #### C VDTBH #### [facility] [address] [place] [address] Dr. Talia Plascencia Eosinophils/100 WBC (Bld) 1.1 % Normal 0.9-7.0 [facility] Comment on above: Performed By: #### C VDTBH #### [facility] [address] [place] [address] Dr. Talia Plascencia Erythrocyte distribution width (RBC) [Ratio] 15.7 % Critically high 11.0-15.0 [facility] Comment on above: Performed By: #### C VDTBH #### [facility] [address] [place] [address] Dr. Talia Plascencia Hematocrit (Bld) [Volume fraction] 50.2 % Normal 42.0-54.0 [facility] Comment on above: Performed By: #### C VDTBH #### [facility] [address] [place] [address] Dr. Talia Plascencia Hemoglobin (Bld) [Mass/Vol] 17.3 g/dL Normal 14.0-18.0 [facility] Comment on above: Performed By: #### C VDTBH #### [facility] [address] [place] [address] Dr. Talia Plascencia IG # 0.03 10e3/ul Normal 0.00-0.03 [facility] Comment on above: Performed By: #### C VDTBH #### [facility] [address] [place] [address] Dr. Talia Plascencia IG % 0.3 % Normal 0.0-0.5 [facility] Comment on above: Performed By: #### C VDTBH #### [facility] [address] [place] [address] Dr. Talia Plascencia LYMPH # 0.7 103/ul Critically low 1.2-3.8 [facility] Comment on above: Performed By: #### C VDTBH #### [facility] [address] [place] [address] Dr. Talia Plascencia Lymphocytes/100 WBC (Bld) 7.0 % Critically low 20.5-60.0 [facility] Comment on above: Performed By: #### C VDTBH #### [facility] [address] [place] [address] Dr. Talia Plascencia MANUAL DIFF REQ NO Normal [facility] Comment on above: Performed By: #### C VDTBH #### [facility] [address] [place] [address] Dr. Talia Plascencia MCH (RBC) [Entitic mass] 26.3 pg Normal 25.9-34.0 [facility] Comment on above: Performed By: #### C VDTBH #### [facility] [address] [address] [address] Talia Plascencia MCHC (RBC) [Mass/Vol] 34.5 g/dL Normal 29.9-35.2 [facility] Comment on above: Performed By: #### C VDTBH #### [facility] [address] [place] [address] Dr. Talia Plascencia MCV (RBC) [Entitic vol] 76.2 fL Critically low 80.0-94.0 [facility] Comment on above: Performed By: #### C VDTBH #### [facility] [address] [place] [address] Dr. Talia Plascencia MONO # 1.0 103/ul Critically high 0.3-0.8 [facility] Comment on above: Performed By: #### C VDTBH #### [facility] [address] [place] [address] Dr. Talia Plascencia Monocytes/100 WBC (Bld) 9.9 % Normal 1.7-12.0 [facility] Comment on above: Performed By: #### C VDTBH #### [facility] [address] [place] [address] Dr. Talia Plascencia NEUT # 8.5 103/ul Critically high 1.4-6.5 [facility] Comment on above: Performed By: #### C VDTBH #### [facility] [address] [place] [address] Dr. Talia Plascencia Neutrophils/100 WBC (Bld) 81.2 % Critically high 43.0-75.0 [facility] Comment on above: Performed By: #### C VDTBH #### [facility] [address] [place] [address] Dr. Talia Plascencia Platelet mean volume (Bld) [Entitic vol] 10.5 fL Normal 9.5-13.5 [facility] Comment on above: Performed By: #### C VDTBH #### [facility] [address] [place] [address] Dr. Talia Plascencia PLT 212 103/ul Normal 150-450 [facility] Comment on above: Performed By: #### C VDTBH #### [facility] [address] [address] [address] Talia Plascencia RBC 6.59 106/ul Critically high 4.70-6.10 [facility] Comment on above: Performed By: #### C VDTBH #### [facility] [address] [address] [address] Talia Plascencia WBC 10.4 103/ul Normal 4.0-11.0 [facility] Comment on above: Performed By: #### C VDTBH #### [facility] [address] [address] [address] Talia Plascencia Covid-19 PCR ([facility])on 07-08 SARS-CoV-2 (COVID-19) RNA REKHA+probe Ql (Unsp spec) Detected Critically abnormal NOT DETECTED [facility] Comment on above: Result Comment: This test is not yet approved or cleared by the [place] FDA. When there are no FDA-approved or cleared tests available, and other criteria are met, FDA can make tests available under an emergency access mechanism called an Emergency Use Authorization (EUA). The EUA for this test is supported by the [employer] Load[employer] Operator of Health and Human Service's declaration that circumstances exist to justify the emergency use of in vitro diagnostics for the detection and/or diagnosis of the virus that causes COVID-19. This EUA will remain in effect for the duration of the COVID-19 declaration justifying emergency of IVDs, unless it is terminated or revoked by the FDA (after which the test may no longer be used). Performed By: #### C VDTBH #### [facility] [address] [id number] Talia Plascencia INFLUENZA A AND B AGon 08-04 INFLUENZA A AG Negative Normal NEGATIVE SEE COMMENT [facility] Comment on above: Performed By: #### I NFLUAB #### [facility] [address] [address] [address] Talia Plascencia INFLUENZA B AG Negative Normal NEGATIVE SEE COMMENT [facility] Comment on above: Performed By: #### I NFLUAB #### [facility] [address] [place] [address] Dr. Talia Plascencia INTERNAL CONTROLS Within Normal Limits Normal Wi thin Normal Limits [facility] Comment on above: Performed By: #### I NFLUAB #### [facility] [address] [place] [address] Dr. Talia Plascencia LACTATE/LACTIC ACIDon 2021 Lactate [Moles/Vol] 2.1 mmol/L Critically high 0.4-1.9 [facility] Comment on above: Performed By: #### C BCMAN #### [facility] [address] [place] [address] Dr. Talia Plascencia LIPASEon 08-04-2022 Lipase [Catalytic activity/Vol] 135.0 U/L Normal 73.0-393.0 [facility] Comment on above: Performed By: #### I NFLUAB #### [facility] [address] [place] [address] Dr. Talia Plascencia PROF 14(COMP METB)on 022 Albumin [Mass/Vol] 4.3 g/dL Normal 3.4-5.0 [facility] Comment on above: Performed By: #### I NFLUAB #### [facility] [address] [place] [address] Dr. Talia Plascencia Albumin/Globulin [Mass ratio] 1.0 {ratio} Normal [facility] Comment on above: Performed By: #### I NFLUAB #### [facility] [address] [place] [address] Dr. Talia Plascencia ALP [Catalytic activity/Vol] 77 U/L Normal 46-116 [facility] Comment on above: Performed By: #### I NFLUAB #### [facility] [address] [place] [address] Dr. Talia Plascencia ALT [Catalytic activity/Vol] 28 U/L Normal 16-63 [facility] Comment on above: Performed By: #### I NFLUAB #### [facility] [address] [place] [address] Dr. Talia Plascencia Anion gap [Moles/Vol] 20.3 mmol/L Normal [facility] Comment on above: Performed By: #### I NFLUAB #### [facility] [address] [address] [address] Talia Plascencia AST [Catalytic activity/Vol] 35 U/L Normal 15-37 [facility] Comment on above: Performed By: #### I NFLUAB #### [facility] [address] [place] [address] Dr. Talia Plascencia Bilirubin [Mass/Vol] 1.1 mg/dL Critically high 0.2-1.0 [facility] Comment on above: Performed By: #### I NFLUAB #### [facility] [address] [place] [address] Dr. Talia Plascencia Calcium [Mass/Vol] 10.1 mg/dL Normal 8.5-10.1 [facility] Comment on above: Performed By: #### I NFLUAB #### [facility] [address] [place] [address] Dr. Talia Plascencia Chloride [Moles/Vol] 95 mmol/L Critically low 98-107 [facility] Comment on above: Performed By: #### I NFLUAB #### [facility] [address] [place] [address] Dr. Talia Plascencia CO2 [Moles/Vol] 22.5 mmol/L Normal 21.0-32.0 [facility] Comment on above: Performed By: #### I NFLUAB #### [facility] [address] [place] [address] Dr. Talia Plascencia Creatinine [Mass/Vol] 1.36 mg/dL Critically high 0.70-1.30 [facility] Comment on above: Performed By: #### I NFLUAB #### [facility] [address] [place] [address] Dr. Talia Plascencia EGFR-AF BAHRAINI >60 Normal >=60 [facility] Comment on above: Performed By: #### I NFLUAB #### [facility] [address] [place] [address] Dr. Talia Plascencia EGFR-NON AF BAHRAINI 53 mL/min/1.73m2 Critically low >=60 [facility] Comment on above: Performed By: #### I NFLUAB #### [facility] [address] [place] [address] Dr. Talia Plascencia Globulin (S) [Mass/Vol] 4.4 g/dL Normal [facility] Comment on above: Performed By: #### I NFLUAB #### [facility] [address] [place] [address] Dr. Talia Plascencia Glucose [Mass/Vol] 220 mg/dL Critically high 74-106 [facility] Comment on above: Performed By: #### I NFLUAB #### [facility] [address] [place] [address] Dr. Talia Plascencia Potassium [Moles/Vol] 4.8 mmol/L Normal 3.5-5.1 [facility] Comment on above: Performed By: #### I NFLUAB #### [facility] [address] [place] [address] Dr. Talia Plascencia Protein [Mass/Vol] 8.7 g/dL Critically high 6.4-8.2 [facility] Comment on above: Performed By: #### I NFLUAB #### [facility] [address] [place] [address] Dr. Talia Plascencia Sodium [Moles/Vol] 133 mmol/L Critically low 136-145 [facility] Comment on above: Performed By: #### I NFLUAB #### [facility] [address] [place] [address] Dr. Talia Plascencia Urea nitrogen [Mass/Vol] 28.0 mg/dL Critically high 7.0-18.0 [facility] Comment on above: Performed By: #### I NFLUAB #### [facility] [address] [place] [address] Dr. Talia Plascencia Urea nitrogen/Creatinine [Mass ratio] 20.6 mg/mg Normal [facility] Comment on above: Performed By: #### I NFLUAB #### [facility] [address] [place] [address] Dr. Talia Plascencia TESTOSTERONE, TOTALon 2021 Testosterone [Mass/Vol] 830 ng/dL Normal 264-916 [facility] Comment on above: Result Comment: Adul t male reference interval is based on a population of healthy nonobese males (BMI <30) between 19 and 39 years old. irina Lester.al. JCEM 2017,102;5925-4375. PMID: [id number]. Performed By: #### C BC #### [facility] [address] [place] [address] Dr. Talia Plascencia CBC AUTO DIFFon 07-29-2022 BASO # 0.1 103/ul Normal 0.0-0.1 [facility] Comment on above: Performed By: #### P OCGLUC #### [facility] [address] [place] [address] Dr. Talia Plascencia Basophils/100 WBC (Bld) 0.7 % Normal 0.2-2.0 [facility] Comment on above: Performed By: #### P OCGLUC #### [facility] [address] [place] [address] Dr. Talia Plascencia EO # 0.5 103/ul Normal 0.0-0.7 [facility] Comment on above: Performed By: #### P OCGLUC #### [facility] [address] [place] [address] Dr. Talia Plascencia Eosinophils/100 WBC (Bld) 5.8 % Normal 0.9-7.0 [facility] Comment on above: Performed By: #### P OCGLUC #### [facility] [address] [place] [address] Dr. Talia Plascencia Erythrocyte distribution width (RBC) [Ratio] 15.0 % Normal 11.0-15.0 [facility] Comment on above: Performed By: #### P OCGLUC #### [facility] [address] [place] [address] Dr. Talia Plascencia Hematocrit (Bld) [Volume fraction] 45.9 % Normal 42.0-54.0 [facility] Comment on above: Performed By: #### P OCGLUC #### [facility] [address] [address] [address] Talia Plascencia Hemoglobin (Bld) [Mass/Vol] 15.8 g/dL Normal 14.0-18.0 [facility] Comment on above: Performed By: #### P OCGLUC #### [facility] [address] [place] [address] Dr. Talia Plascencia IG # 0.03 10e3/ul Normal 0.00-0.03 [facility] Comment on above: Performed By: #### P OCGLUC #### [facility] [address] [place] [address] Dr. Talia Plascencia IG % 0.4 % Normal 0.0-0.5 [facility] Comment on above: Performed By: #### P OCGLUC #### [facility] [address] [place] [address] Dr. Talia Plascencia LYMPH # 1.4 103/ul Normal 1.2-3.8 [facility] Comment on above: Performed By: #### P OCGLUC #### [facility] [address] [place] [address] Dr. Talia Plascencia Lymphocytes/100 WBC (Bld) 17.3 % Critically low 20.5-60.0 [facility] Comment on above: Performed By: #### P OCGLUC #### [facility] [address] [place] [address] Dr. Talia Plascencia MANUAL DIFF REQ NO Normal [facility] Comment on above: Performed By: #### P OCGLUC #### [facility] [address] [place] [address] Dr. Talia Plascencia MCH (RBC) [Entitic mass] 27.4 pg Normal 25.9-34.0 [facility] Comment on above: Performed By: #### P OCGLUC #### [facility] [address] [place] [address] Dr. Talia Plascencia MCHC (RBC) [Mass/Vol] 34.4 g/dL Normal 29.9-35.2 [facility] Comment on above: Performed By: #### P OCGLUC #### [facility] [address] [place] [address] Dr. Talia Plascencia MCV (RBC) [Entitic vol] 79.5 fL Critically low 80.0-94.0 [facility] Comment on above: Performed By: #### P OCGLUC #### [facility] [address] [place] [address] Dr. Talia Plascencia MONO # 0.5 103/ul Normal 0.3-0.8 [facility] Comment on above: Performed By: #### P OCGLUC #### [facility] [address] [place] [address] Dr. Talia Plascencia Monocytes/100 WBC (Bld) 6.6 % Normal 1.7-12.0 [facility] Comment on above: Performed By: #### P OCGLUC #### [facility] [address] [place] [address] Dr. Talia Plascencia NEUT # 5.6 103/ul Normal 1.4-6.5 [facility] Comment on above: Performed By: #### P OCGLUC #### [facility] [address] [place] [address] Dr. Talia Plascencia Neutrophils/100 WBC (Bld) 69.2 % Normal 43.0-75.0 [facility] Comment on above: Performed By: #### P OCGLUC #### [facility] [address] [place] [address] Dr. Talia Plascencia Platelet mean volume (Bld) [Entitic vol] 10.5 fL Normal 9.5-13.5 [facility] Comment on above: Performed By: #### P OCGLUC #### [facility] [address] [place] [address] Dr. Talia Plascencia PLT 216 103/ul Normal 150-450 [facility] Comment on above: Performed By: #### P OCGLUC #### [facility] [address] [place] [address] Dr. Talia Plascencia RBC 5.77 106/ul Normal 4.70-6.10 [facility] Comment on above: Performed By: #### P OCGLUC #### [facility] [address] [place] [address] Dr. Talia Plascencia WBC 8.2 103/ul Normal 4.0-11.0 [facility] Comment on above: Performed By: #### P OCGLUC #### [facility] [address] [place] [address] Dr. Talia Plascencia TESTOSTERONE, TOTALon 2021 Testosterone [Mass/Vol] 323 ng/dL Normal 264-916 [facility] Comment on above: Result Comment: Adul t male reference interval is based on a population of healthy nonobese males (BMI <30) between 19 and 39 years old. irina Lester.al. JCEM 2017,102;2785-2147. PMID: [id number]. Performed By: #### T ESTTOT #### [facility] [address] [place] [address] Dr. Talia Plascencia CBC AUTO DIFFon 05-13-2022 BASO # 0.1 103/ul Normal 0.0-0.1 [facility] Comment on above: Performed By: #### C BCMAN #### [facility] [address] [place] [address] Dr. Talia Plascencia Basophils/100 WBC (Bld) 0.9 % Normal 0.2-2.0 [facility] Comment on above: Performed By: #### C BCMAN #### [facility] [address] [place] [address] Dr. Talia Plascencia EO # 0.3 103/ul Normal 0.0-0.7 [facility] Comment on above: Performed By: #### C BCMAN #### [facility] [address] [place] [address] Dr. Talia Plascencia Eosinophils/100 WBC (Bld) 4.0 % Normal 0.9-7.0 [facility] Comment on above: Performed By: #### C BCMAN #### [facility] [address] [place] [address] Dr. Talia Plascencia Erythrocyte distribution width (RBC) [Ratio] 15.6 % Critically high 11.0-15.0 [facility] Comment on above: Performed By: #### C BCMAN #### [facility] [address] [place] [address] Dr. Talia Plascencia Hematocrit (Bld) [Volume fraction] 43.9 % Normal 42.0-54.0 [facility] Comment on above: Performed By: #### C SOLITARIO #### [facility] [address] [place] [address] Dr. Talia Plascencia Hemoglobin (Bld) [Mass/Vol] 14.5 g/dL Normal 14.0-18.0 [facility] Comment on above: Performed By: #### C SOLITARIO #### [facility] [address] [place] [address] Dr. Talia Plascencia IG # 0.02 10e3/ul Normal 0.00-0.03 [facility] Comment on above: Performed By: #### C SOLITARIO #### [facility] [address] [place] [address] Dr. Talia Plascencia IG % 0.3 % Normal 0.0-0.5 [facility] Comment on above: Performed By: #### C SOLITARIO #### [facility] [address] [place] [address] Dr. Talia Plascencia LYMPH # 1.6 103/ul Normal 1.2-3.8 [facility] Comment on above: Performed By: #### C SOLITARIO #### [facility] [address] [place] [address] Dr. Talia Plascencia Lymphocytes/100 WBC (Bld) 23.5 % Normal 20.5-60.0 [facility] Comment on above: Performed By: #### C SOLITARIO #### [facility] [address] [place] [address] Dr. Talia Plascencia MANUAL DIFF REQ NO Normal [facility] Comment on above: Performed By: #### Bee JEREZ #### [facility] [address] [place] [address] Dr. Talia Plascencia MCH (RBC) [Entitic mass] 26.1 pg Normal 25.9-34.0 [facility] Comment on above: Performed By: #### Bee JREEZ #### [facility] [address] [place] [address] Dr. Talia Plascencia MCHC (RBC) [Mass/Vol] 33.0 g/dL Normal 29.9-35.2 [facility] Comment on above: Performed By: #### Bee JEREZ #### [facility] [address] [place] [address] Dr. Talia Plascencia MCV (RBC) [Entitic vol] 79.0 fL Critically low 80.0-94.0 [facility] Comment on above: Performed By: #### Bee JEREZ #### [facility] [address] [place] [address] Dr. Talia Plascencia MONO # 0.6 103/ul Normal 0.3-0.8 [facility] Comment on above: Performed By: #### Bee JEREZ #### [facility] [address] [place] [address] Dr. Talia Plascencia Monocytes/100 WBC (Bld) 8.2 % Normal 1.7-12.0 [facility] Comment on above: Performed By: #### Bee JEREZ #### [facility] [address] [place] [address] Dr. Talia Plascencia NEUT # 4.4 103/ul Normal 1.4-6.5 [facility] Comment on above: Performed By: #### Bee JEREZ #### [facility] [address] [place] [address] Dr. Talia Plascencia Neutrophils/100 WBC (Bld) 63.1 % Normal 43.0-75.0 [facility] Comment on above: Performed By: #### Bee JEREZ #### [facility] [address] [place] [address] Dr. Talia Plascencia Platelet mean volume (Bld) [Entitic vol] 11.6 fL Normal 9.5-13.5 [facility] Comment on above: Performed By: #### Bee JEREZ #### [facility] [address] [place] [address] Dr. Talia Plascencia PLT 247 103/ul Normal 150-450 [facility] Comment on above: Performed By: #### Bee JEREZ #### [facility] [address] [place] [address] Dr. Talia Plascencia RBC 5.56 106/ul Normal 4.70-6.10 [facility] Comment on above: Performed By: #### C BCMAN #### [facility] [address] [place] [address] Dr. Talia Plascencia WBC 6.9 103/ul Normal 4.0-11.0 [facility] Comment on above: Performed By: #### C BCMAN #### [facility] [address] [place] [address] Dr. Talia Plascencia CBC AUTO DIFFon 04-26-2022 BASO # 0.0 103/ul Normal 0.0-0.1 [facility] Comment on above: Performed By: #### C BC #### [facility] [address] [place] [address] Dr. Talia Plascencia Basophils/100 WBC (Bld) 0.4 % Normal 0.2-2.0 [facility] Comment on above: Performed By: #### C BC #### [facility] [address] [place] [address] Dr. Talia Plascencia EO # 0.3 103/ul Normal 0.0-0.7 [facility] Comment on above: Performed By: #### C BC #### [facility] [address] [place] [address] Dr. Talia Plascencia Eosinophils/100 WBC (Bld) 4.4 % Normal 0.9-7.0 [facility] Comment on above: Performed By: #### C BC #### [facility] [address] [place] [address] Dr. Talia Plascencia Erythrocyte distribution width (RBC) [Ratio] 15.1 % Critically high 11.0-15.0 [facility] Comment on above: Performed By: #### C BC #### [facility] [address] [place] [address] Dr. Talia Plascencia Hematocrit (Bld) [Volume fraction] 42.0 % Normal 42.0-54.0 [facility] Comment on above: Performed By: #### C BC #### [facility] [address] [place] [address] Dr. Talia Plascencia Hemoglobin (Bld) [Mass/Vol] 14.2 g/dL Normal 14.0-18.0 [facility] Comment on above: Performed By: #### C BC #### [facility] [address] [place] [address] Dr. Talia Plascencia IG # 0.02 10e3/ul Normal 0.00-0.03 [facility] Comment on above: Performed By: #### C BC #### [facility] [address] [place] [address] Dr. Talia Plascencia IG % 0.3 % Normal 0.0-0.5 [facility] Comment on above: Performed By: #### C BC #### [facility] [address] [place] [address] Dr. Talia Plascencia LYMPH # 1.1 103/ul Critically low 1.2-3.8 [facility] Comment on above: Performed By: #### C BC #### [facility] [address] [place] [address] Dr. Talia Plascencia Lymphocytes/100 WBC (Bld) 14.5 % Critically low 20.5-60.0 [facility] Comment on above: Performed By: #### C BC #### [facility] [address] [place] [address] Dr. Talia Plascencia MANUAL DIFF REQ NO Normal [facility] Comment on above: Performed By: #### C BC #### [facility] [address] [place] [address] Dr. Talia Plascencia MCH (RBC) [Entitic mass] 26.4 pg Normal 25.9-34.0 [facility] Comment on above: Performed By: #### C BC #### [facility] [address] [place] [address] Dr. Talia Plascencia MCHC (RBC) [Mass/Vol] 33.8 g/dL Normal 29.9-35.2 [facility] Comment on above: Performed By: #### C BC #### [facility] [address] [place] [address] Dr. Talia Plascencia MCV (RBC) [Entitic vol] 78.2 fL Critically low 80.0-94.0 [facility] Comment on above: Performed By: #### C BC #### [facility] [address] [place] [address] Dr. Talia Plascencia MONO # 0.5 103/ul Normal 0.3-0.8 [facility] Comment on above: Performed By: #### C BC #### [facility] [address] [place] [address] Dr. Talia Plascencia Monocytes/100 WBC (Bld) 6.8 % Normal 1.7-12.0 [facility] Comment on above: Performed By: #### C BC #### [facility] [address] [place] [address] Dr. Talia Plascencia NEUT # 5.6 103/ul Normal 1.4-6.5 [facility] Comment on above: Performed By: #### C BC #### [facility] [address] [place] [address] Dr. Talia Plascencia Neutrophils/100 WBC (Bld) 73.6 % Normal 43.0-75.0 [facility] Comment on above: Performed By: #### C BC #### [facility] [address] [place] [address] Dr. Talia Plascencia Platelet mean volume (Bld) [Entitic vol] 10.7 fL Normal 9.5-13.5 [facility] Comment on above: Performed By: #### C BC #### [facility] [address] [place] [address] Dr. Talia Plascencia PLT 182 103/ul Normal 150-450 [facility] Comment on above: Performed By: #### C BC #### [facility] [address] [place] [address] Dr. Talia Plascencia RBC 5.37 106/ul Normal 4.70-6.10 [facility] Comment on above: Performed By: #### C BC #### [facility] [address] [place] [address] Dr. Talai Plascencia WBC 7.7 103/ul Normal 4.0-11.0 [facility] Comment on above: Performed By: #### C BC #### [facility] [address] [address] [address] Talia Plascencia CRPon 04-26-2022 CRP 11.2 mg/dL Critically high <=1.0 [facility] Comment on above: Performed By: #### C BCMAN #### [facility] [address] [place] [address] Dr. Talia Plascencia POINT OF CARE GLUCOSEon 04-07 Glucose [Mass/Vol] 135 mg/dL Critically high 74-106 [facility] Comment on above: Performed By: #### P OCGLUC #### [facility] [address] [place] [address] Dr. Talia Plascencia PROF 14(COMP METB)on 022 Albumin [Mass/Vol] 3.2 g/dL Critically low 3.4-5.0 [facility] Comment on above: Performed By: #### I NFLUAB #### [facility] [address] [place] [address] Dr. Talia Plascencia Albumin/Globulin [Mass ratio] 0.8 {ratio} Normal [facility] Comment on above: Performed By: #### I NFLUAB #### [facility] [address] [place] [address] Dr. Talia Plascencia ALP [Catalytic activity/Vol] 61 U/L Normal 46-116 [facility] Comment on above: Performed By: #### I NFLUAB #### [facility] [address] [place] [address] Dr. Talia Plascencia ALT [Catalytic activity/Vol] 25 U/L Normal 16-63 [facility] Comment on above: Performed By: #### I NFLUAB #### [facility] [address] [place] [address] Dr. Talia Plascencia Anion gap [Moles/Vol] 15.6 mmol/L Normal [facility] Comment on above: Performed By: #### I NFLUAB #### [facility] [address] [place] [address] Dr. Talia Plascencia AST [Catalytic activity/Vol] 31 U/L Normal 15-37 [facility] Comment on above: Performed By: #### I NFLUAB #### [facility] [address] [place] [address] Dr. Talia Plascencia Bilirubin [Mass/Vol] 0.6 mg/dL Normal 0.2-1.0 [facility] Comment on above: Performed By: #### I NFLUAB #### [facility] [address] [place] [address] Dr. Talia Plascencia Calcium [Mass/Vol] 8.7 mg/dL Normal 8.5-10.1 [facility] Comment on above: Performed By: #### I NFLUAB #### [facility] [address] [place] [address] Dr. Talia Plascencia Chloride [Moles/Vol] 99 mmol/L Normal 98-107 [facility] Comment on above: Performed By: #### I NFLUAB #### [facility] [address] [place] [address] Dr. Talia Plascencia CO2 [Moles/Vol] 22.6 mmol/L Normal 21.0-32.0 [facility] Comment on above: Performed By: #### I NFLUAB #### [facility] [address] [place] [address] Dr. Talia Plascencia Creatinine [Mass/Vol] 1.06 mg/dL Normal 0.70-1.30 [facility] Comment on above: Performed By: #### I NFLUAB #### [facility] [address] [place] [address] Dr. Talia Plascencia EGFR-AF BAHRAINI >60 Normal >=60 [facility] Comment on above: Performed By: #### I NFLUAB #### [facility] [address] [place] [address] Dr. Talia Plascencia EGFR-NON AF BAHRAINI >60 Normal >=60 [facility] Comment on above: Performed By: #### I NFLUAB #### [facility] [address] [place] [address] Dr. Talia Plascencia Globulin (S) [Mass/Vol] 3.8 g/dL Normal [facility] Comment on above: Performed By: #### I NFLUAB #### [facility] [address] [place] [address] Dr. Talia Plascencia Glucose [Mass/Vol] 136 mg/dL Critically high 74-106 T [facility] Comment on above: Performed By: #### I NFLUAB #### [facility] [address] [place] [address] Dr. Talia Plascencia Potassium [Moles/Vol] 4.2 mmol/L Normal 3.5-5.1 [facility] Comment on above: Performed By: #### I NFLUAB #### [facility] [address] [place] [address] Dr. Talia Plascencia Protein [Mass/Vol] 7.0 g/dL Normal 6.4-8.2 [facility] Comment on above: Performed By: #### I NFLUAB #### [facility] [address] [place] [address] Dr. Talia Plascencia Sodium [Moles/Vol] 133 mmol/L Critically low 136-145 Th [facility] Comment on above: Performed By: #### I NFLUAB #### [facility] [address] [place] [address] Dr. Talia Plascencia Urea nitrogen [Mass/Vol] 15.0 mg/dL Normal 7.0-18.0 [facility] Comment on above: Performed By: #### I NFLUAB #### [facility] [address] [place] [address] Dr. Talia Plascencia Urea nitrogen/Creatinine [Mass ratio] 14.2 mg/mg Normal [facility] Comment on above: Performed By: #### I NFLUAB #### [facility] [address] [place] [address] Dr. Talia Plascencia C. DIFF PCRon 04-25-2022 C. DIFFICILE PCR Negative Normal NEGATIVE [facility] Comment on above: Performed By: #### P OCGLUC #### [facility] [address] [place] [address] Dr. Talia Plascencia CBC AUTO DIFFon 04-25-2022 BASO # 0.0 103/ul Normal 0.0-0.1 [facility] Comment on above: Performed By: #### P OCGLUC #### [facility] [address] [address] [address] Talia Plascencia Basophils/100 WBC (Bld) 0.3 % Normal 0.2-2.0 [facility] Comment on above: Performed By: #### P OCGLUC #### [facility] [address] [address] [address] Talia Plascencia EO # 0.2 103/ul Normal 0.0-0.7 [facility] Comment on above: Performed By: #### P OCGLUC #### [facility] [address] [address] [address] Talia Plascencia Eosinophils/100 WBC (Bld) 2.9 % Normal 0.9-7.0 [facility] Comment on above: Performed By: #### P OCGLUC #### [facility] [address] [address] [address] Talia Plascencia Erythrocyte distribution width (RBC) [Ratio] 14.8 % Normal 11.0-15.0 [facility] Comment on above: Performed By: #### P OCGLUC #### [facility] [address] [address] [address] Talia Plascencia Hematocrit (Bld) [Volume fraction] 40.0 % Critically low 42.0-54.0 [facility] Comment on above: Performed By: #### P OCGLUC #### [facility] [address] [address] [address] Talia Plascencia Hemoglobin (Bld) [Mass/Vol] 13.5 g/dL Critically low 14.0-18.0 [facility] Comment on above: Performed By: #### P OCGLUC #### [facility] [address] [address] [address] Talia Plascencia IG # 0.02 10e3/ul Normal 0.00-0.03 [facility] Comment on above: Performed By: #### P OCGLUC #### [facility] [address] [address] [address] Talia Plascencia IG % 0.3 % Normal 0.0-0.5 [facility] Comment on above: Performed By: #### P OCGLUC #### [facility] [address] [address] [address] Talia Plascencia LYMPH # 0.8 103/ul Critically low 1.2-3.8 [facility] Comment on above: Performed By: #### P OCGLUC #### [facility] [address] [address] [address] Talia Plascencia Lymphocytes/100 WBC (Bld) 11.5 % Critically low 20.5-60.0 [facility] Comment on above: Performed By: #### P OCGLUC #### [facility] [address] [place] [address] Dr. Talia Plascencia MANUAL DIFF REQ NO Normal [facility] Comment on above: Performed By: #### P OCGLUC #### [facility] [address] [address] [address] Talia Plascencia MCH (RBC) [Entitic mass] 26.3 pg Normal 25.9-34.0 [facility] Comment on above: Performed By: #### P OCGLUC #### [facility] [address] [place] [address] Dr. Talia Plascencia MCHC (RBC) [Mass/Vol] 33.8 g/dL Normal 29.9-35.2 [facility] Comment on above: Performed By: #### P OCGLUC #### [facility] [address] [place] [address] Dr. Talia Plascencia MCV (RBC) [Entitic vol] 78.0 fL Critically low 80.0-94.0 [facility] Comment on above: Performed By: #### P OCGLUC #### [facility] [address] [place] [address] Dr. Talia Plascencia MONO # 0.6 103/ul Normal 0.3-0.8 [facility] Comment on above: Performed By: #### P OCGLUC #### [facility] [address] [address] [address] Talia Plascencia Monocytes/100 WBC (Bld) 9.1 % Normal 1.7-12.0 [facility] Comment on above: Performed By: #### P OCGLUC #### [facility] [address] [address] [address] Talia Plascencia NEUT # 5.2 103/ul Normal 1.4-6.5 [facility] Comment on above: Performed By: #### P OCGLUC #### [facility] [address] [place] [address] Dr. Talia Plascencia Neutrophils/100 WBC (Bld) 75.9 % Critically high 43.0-75.0 [facility] Comment on above: Performed By: #### P OCGLUC #### [facility] [address] [place] [address] Dr. Talia Plascencia Platelet mean volume (Bld) [Entitic vol] 10.7 fL Normal 9.5-13.5 [facility] Comment on above: Performed By: #### P OCGLUC #### [facility] [address] [address] [address] Talia Plascencia PLT 149 103/ul Critically low 150-450 [facility] Comment on above: Performed By: #### P OCGLUC #### [facility] [address] [place] [address] Dr. Talia Plascencia RBC 5.13 106/ul Normal 4.70-6.10 [facility] Comment on above: Performed By: #### P OCGLUC #### [facility] [address] [place] [address] Dr. Talia Plascencia WBC 6.8 103/ul Normal 4.0-11.0 [facility] Comment on above: Performed By: #### P OCGLUC #### [facility] [address] [place] [address] Dr. Talia Plascencia CRPon 04-25-2022 CRP 28.2 mg/dL Critically high <=1.0 [facility] Comment on above: Performed By: #### I NFLUAB #### [facility] [address] [address] [address] Talia ARREDONDO URINE PROFILEon 2 Bilirubin Ql (U) Negative Normal NEGATIVE [facility] Comment on above: Performed By: #### U MICRO, ERUR #### [facility] [address] [place] [address] Dr. Talia Plascencia Clarity (U) CLEAR Normal CLEAR [facility] Comment on above: Performed By: #### U MICRO, ERUR #### [facility] [address] [place] [address] Dr. Talia Plascencia Color (U) YELLOW Normal YELLOW [facility] Comment on above: Performed By: #### U MICRO, ERUR #### [facility] [address] [place] [address] Dr. Talia AGUIRRE A micrscopic examination will be performed if indicated. Normal [facility] Comment on above: Performed By: #### U MICRO, ERUR #### [facility] [address] [place] [address] Dr. Talia Plascencia Glucose Ql (U) >1000 Abnormal NEGATIVE [facility] Comment on above: Performed By: #### U MICRO, ERUR #### [facility] [address] [place] [address] Dr. Talia Plascencia Hemoglobin Ql (U) TRACE-INTACT Abnormal NEGATIVE [facility] Comment on above: Performed By: #### U MICRO, ERUR #### [facility] [address] [place] [address] Dr. Talia Plascencia Ketones Ql (U) TRACE Abnormal NEGATIVE [facility] Comment on above: Performed By: #### U MICRO, ERUR #### [facility] [address] [place] [address] Dr. Talia Plascencia LEUKOCYTES Negative Normal NEGATIVE [facility] Comment on above: Performed By: #### U MICRO, ERUR #### [facility] [address] [place] [address] Dr. Talia Plascencia Nitrite Ql (U) Negative Normal NEGATIVE [facility] Comment on above: Performed By: #### U MICRO, ERUR #### [facility] [address] [address] [address] Talia Plascencia pH (U) 6.0 [pH] Normal 5-9 [facility] Comment on above: Performed By: #### U MICRO, ERUR #### [facility] [address] [place] [address] Dr. Talia Plascencia SPEC GRAVITY 1.015 Normal 1.005-<=1.025 [facility] Comment on above: Performed By: #### U MICRO, ERUR #### [facility] [address] [place] [address] Dr. Talia Plascencia UA PROTEIN Negative Normal NEGATIVE/ TRACE [facility] Comment on above: Performed By: #### U MICRO, ERUR #### [facility] [address] [place] [address] Dr. Talia Plascencia UR MICRO IND INDICATED Normal [facility] Comment on above: Performed By: #### U MICRO, ERUR #### [facility] [address] [place] [address] Dr. Talia Plascencia Urobilinogen Qn (U) 1.0 {Suellen'U}/dL Normal 0.2 - 1. 0 [facility] Comment on above: Performed By: #### U MICRO, ERUR #### [facility] [address] [place] [address] Dr. Talia Plascencia POINT OF CARE GLUCOSEon 04-07 Glucose [Mass/Vol] 148 mg/dL Critically high 74-106 [facility] Comment on above: Performed By: #### I NFLUAB #### [facility] [address] [place] [address] Dr. Talia Plascencia Glucose [Mass/Vol] 199 mg/dL Critically high 74-106 [facility] Comment on above: Performed By: #### C BC #### [facility] [address] [place] [address] Dr. Talia Plascencia Glucose [Mass/Vol] 176 mg/dL Critically high 74-106 [facility] Comment on above: Performed By: #### I NFLUAB #### [facility] [address] [address] [address] aTlia Plascencia PROF 14(COMP METB)on 022 Albumin [Mass/Vol] 2.9 g/dL Critically low 3.4-5.0 [facility] Comment on above: Performed By: #### I NFLUAB #### [facility] [address] [place] [address] Dr. Talia Plascencia Albumin/Globulin [Mass ratio] 0.8 {ratio} Normal [facility] Comment on above: Performed By: #### I NFLUAB #### [facility] [address] [place] [address] Dr. Talia Plascencia ALP [Catalytic activity/Vol] 58 U/L Normal 46-116 [facility] Comment on above: Performed By: #### I NFLUAB #### [facility] [address] [place] [address] Dr. Talia Plascencia ALT [Catalytic activity/Vol] 20 U/L Normal 16-63 [facility] Comment on above: Performed By: #### I NFLUAB #### [facility] [address] [place] [address] Dr. Talia Plascencia Anion gap [Moles/Vol] 12.7 mmol/L Normal [facility] Comment on above: Performed By: #### I NFLUAB #### [facility] [address] [place] [address] Dr. Talia Plascencia AST [Catalytic activity/Vol] 25 U/L Normal 15-37 [facility] Comment on above: Performed By: #### I NFLUAB #### [facility] [address] [place] [address] Dr. Talia Plascencia Bilirubin [Mass/Vol] 0.7 mg/dL Normal 0.2-1.0 [facility] Comment on above: Performed By: #### I NFLUAB #### [facility] [address] [place] [address] Dr. Talia Plascencia Calcium [Mass/Vol] 8.1 mg/dL Critically low 8.5-10.1 [facility] Comment on above: Performed By: #### I NFLUAB #### [facility] [address] [address] [address] Talia Plascencia Chloride [Moles/Vol] 101 mmol/L Normal 98-107 [facility] Comment on above: Performed By: #### I NFLUAB #### [facility] [address] [address] [address] Talia Plascencia CO2 [Moles/Vol] 22.3 mmol/L Normal 21.0-32.0 [facility] Comment on above: Performed By: #### I NFLUAB #### [facility] [address] [address] [address] Talia Plascencia Creatinine [Mass/Vol] 1.13 mg/dL Normal 0.70-1.30 [facility] Comment on above: Performed By: #### I NFLUAB #### [facility] [address] [place] [address] Dr. Talia Plascencia EGFR-AF BAHRAINI >60 Normal >=60 [facility] Comment on above: Performed By: #### I NFLUAB #### [facility] [address] [address] [address] Talia Plascencia EGFR-NON AF BAHRAINI >60 Normal >=60 [facility] Comment on above: Performed By: #### I NFLUAB #### [facility] [address] [address] [address] Talia Plascencia Globulin (S) [Mass/Vol] 3.6 g/dL Normal [facility] Comment on above: Performed By: #### I NFLUAB #### [facility] [address] [address] [address] Talia Plascencia Glucose [Mass/Vol] 148 mg/dL Critically high 74-106 [facility] Comment on above: Performed By: #### I NFLUAB #### [facility] [address] [address] [address] Talia Plascencia Potassium [Moles/Vol] 4.0 mmol/L Normal 3.5-5.1 [facility] Comment on above: Performed By: #### I NFLUAB #### [facility] [address] [place] [address] Dr. Talia Plascencia Protein [Mass/Vol] 6.5 g/dL Normal 6.4-8.2 [facility] Comment on above: Performed By: #### I NFLUAB #### [facility] [address] [place] [address] Dr. Talia Plascencia Sodium [Moles/Vol] 132 mmol/L Critically low 136-145 Th [facility] Comment on above: Performed By: #### I NFLUAB #### [facility] [address] [place] [address] Dr. Talia Plascencia Urea nitrogen [Mass/Vol] 19.0 mg/dL Critically high 7.0-18.0 [facility] Comment on above: Performed By: #### I NFLUAB #### [facility] [address] [place] [address] Dr. Talia Plascencia Urea nitrogen/Creatinine [Mass ratio] 16.8 mg/mg Normal [facility] Comment on above: Performed By: #### I NFLUAB #### [facility] [address] [place] [address] Dr. Talia Plascencia URINE MICROSCOPIC ONLYon BACTERIA NONE SEEN Normal NONE SEEN [facility] Comment on above: Performed By: #### C VDTBH #### [facility] [address] [place] [address] Dr. Talia Plascencia Bacteria identified Cx Nom (U) NOT INDICATED Normal [facility] Comment on above: Performed By: #### C VDTBH #### [facility] [address] [place] [address] Dr. Talia Plascencia CAST NONE SEEN Normal NONE SEEN [facility] Comment on above: Performed By: #### C VDTBH #### [facility] [address] [place] [address] Dr. Talia Plascencia Crystals LM Nom (Urine sed) SEEN Abnormal NONE SEEN [facility] Comment on above: Performed By: #### C VDTBH #### [facility] [address] [place] [address] Dr. Talia Plascencia Epithelial cells LM Ql (Urine sed) NONE SEEN Normal NONE SEEN /RARE [facility] Comment on above: Performed By: #### C VDTBH #### [facility] [address] [place] [address] Dr. Talia Plascencia MUCOUS NONE SEEN Normal NONE SEEN [facility] Comment on above: Performed By: #### C VDTBH #### [facility] [address] [place] [address] Dr. Talia Plascencia RBC NONE SEEN Abnormal 0-2 [facility] Comment on above: Performed By: #### C VDTBH #### [facility] [address] [place] [address] Dr. Talia Plascencia URIC ACID CRYSTALS FEW Normal [facility] Comment on above: Performed By: #### C VDTBH #### [facility] [address] [place] [address] Dr. Talia Plascencia WBC NONE SEEN Normal NONE SEEN [facility] Comment on above: Performed By: #### C VDTBH #### [facility] [address] [place] [address] Dr. Talia Plascencia CBC W MANUAL DIFFon 04-24-20 22 ATYPICAL LYMPH # Normal [facility] Comment on above: Performed By: #### C VDTBH #### [facility] [address] [place] [address] Dr. Talia Plascencia ATYPICAL LYMPH % Normal [facility] Comment on above: Performed By: #### C VDTBH #### [facility] [address] [place] [address] Dr. Talia Plascencia BAND # 0.2 103/ul Normal 0.0-0.3 [facility] Comment on above: Performed By: #### C VDTBH #### [facility] [address] [place] [address] Dr. Talia Plascencia BAND % 2 % Normal 0-5 [facility] Comment on above: Performed By: #### C VDTBH #### [facility] [address] [place] [address] Dr. Talia Plascencia BASOM # 0.00 103/ul Normal 0.00-0.10 [facility] Comment on above: Performed By: #### C VDTBH #### [facility] [address] [place] [address] Dr. Talia Plascencia BASOM % 0.0 % Critically low 0.2-2.0 [facility] Comment on above: Performed By: #### C VDTBH #### [facility] [address] [place] [address] Dr. Talia Plascencia BLAST # Normal [facility] Comment on above: Performed By: #### C VDTBH #### [facility] [address] [place] [address] Dr. Talia Plascencia BLAST % Normal [facility] Comment on above: Performed By: #### C VDTBH #### [facility] [address] [place] [address] Dr. Talia Plascencia CORRECTED WBC Normal 4.0-11.0 [facility] Comment on above: Performed By: #### C VDTBH #### [facility] [address] [place] [address] Dr. Talia Plascencia EOS # 0.00 103/ul Normal 0.00-0.70 [facility] Comment on above: Performed By: #### C VDTBH #### [facility] [address] [place] [address] Dr. Talia Plascencia EOS% 0.0 % Critically low 0.9-7.0 [facility] Comment on above: Performed By: #### C VDTBH #### [facility] [address] [place] [address] Dr. Talia Plascencia HCT 40.0 % Critically low 42.0-54.0 [facility] Comment on above: Performed By: #### C VDTBH #### [facility] [address] [place] [address] Dr. Talia Plascencia HGB 13.6 g/dl Critically low 14.0-18.0 [facility] Comment on above: Performed By: #### C VDTBH #### [facility] [address] [place] [address] Dr. Talia Plascencia LYMPHM # 0.61 103/ul Critically low 1.20-3.80 [facility] Comment on above: Performed By: #### C VDTBH #### [facility] [address] [place] [address] Dr. Talia Plascencia LYMPHM% 6.0 % Critically low 20.5-60.0 [facility] Comment on above: Performed By: #### C VDTBH #### [facility] [address] [place] [address] Dr. Talia Plascencia MCH 26.5 pg Normal 25.9-34.0 [facility] Comment on above: Performed By: #### C VDTBH #### [facility] [address] [place] [address] Dr. Talia Plascencia MCHC 34.0 g/dl Normal 29.9-35.2 [facility] Comment on above: Performed By: #### C VDTBH #### [facility] [address] [place] [address] Dr. Talia Plascencia MCV 78.0 fL Critically low 80.0-94.0 [facility] Comment on above: Performed By: #### C VDTBH #### [facility] [address] [place] [address] Dr. Talia Plascencia METAMYELOCYTE # Normal [facility] Comment on above: Performed By: #### C VDTBH #### [facility] [address] [place] [address] Dr. Talia Plascencia METAMYELOCYTE % Normal [facility] Comment on above: Performed By: #### C VDTBH #### [facility] [address] [place] [address] Dr. Talia Plascencia MONOM# 0.71 103/ul Normal 0.30-0.80 [facility] Comment on above: Performed By: #### C VDTBH #### [facility] [address] [place] [address] Dr. Talia Plascencia MONOM% 7.0 % Normal 1.7-12.0 [facility] Comment on above: Performed By: #### C VDTBH #### [facility] [address] [address] [address] Talia Plascencia MPV 10.2 fL Normal 9.5-13.5 [facility] Comment on above: Performed By: #### C VDTBH #### [facility] [address] [address] [address] Talia Plascencia MYELOCYTE # Normal [facility] Comment on above: Performed By: #### C VDTBH #### [facility] [address] [address] [address] Talia Plascencia MYELOCYTE % Normal [facility] Comment on above: Performed By: #### C VDTBH #### [facility] [address] [place] [address] Dr. Talia Plascencia NRBC Normal [facility] Comment on above: Performed By: #### C VDTBH #### [facility] [address] [place] [address] Dr. Talia Plascencia PLT 141 103/ul Critically low 150-450 [facility] Comment on above: Performed By: #### C VDTBH #### [facility] [address] [address] [address] Talia Plascencia RBC 5.13 106/ul Normal 4.70-6.10 [facility] Comment on above: Performed By: #### C VDTBH #### [facility] [address] [place] [address] Dr. Talia Plascencia RDW 14.7 % Normal 11.0-15.0 [facility] Comment on above: Performed By: #### C VDTBH #### [facility] [address] [place] [address] Dr. Talia Plascencia SEG # 8.67 103/ul Critically high 1.40-6.50 [facility] Comment on above: Performed By: #### C VDTBH #### [facility] [address] [place] [address] Dr. Talia Plascencia SEG % 85.0 % Critically high 43.0-75.0 [facility] Comment on above: Performed By: #### C VDTBH #### [facility] [address] [address] [address] Talia Plascencia WBC 10.2 103/ul Normal 4.0-11.0 [facility] Comment on above: Performed By: #### C VDTBH #### [facility] [address] [address] [address] Talia Plascencia CRPon 04-24-2022 CRP [Mass/Vol] mg/L Critically high <=1.0 [facility] Comment on above: Performed By: #### C VDTBH #### [facility] [address] [place] [address] Dr. Talia Plascencia POINT OF CARE GLUCOSEon 04-06 Glucose [Mass/Vol] 144 mg/dL Critically high [address] [place] [address] Comment on above: Performed By: #### C BCMAN #### [facility] [address] [place] [address] Dr. Talia Plascencia Glucose [Mass/Vol] 123 mg/dL Critically high [address] [place] [address] Comment on above: Performed By: #### I NFLUAB #### [facility] [address] [place] [address] Dr. Talia Plascencia Glucose [Mass/Vol] 222 mg/dL Critically high [address] [place] [address] Comment on above: Performed By: #### P OCGLUC #### [facility] [address] [place] [address] Dr. Talia Plascencia Glucose [Mass/Vol] 174 mg/dL Critically high [address] [place] [address] Comment on above: Performed By: #### C BC #### [facility] [address] [place] [address] Dr. Talia Plascencia PROF 14(COMP METB)on 022 Albumin [Mass/Vol] 2.9 g/dL Critically low 3.4-5.0 [facility] Comment on above: Performed By: #### C BCMAN #### [facility] [address] [place] [address] Dr. aTlia Plascencia Albumin/Globulin [Mass ratio] 0.9 {ratio} Normal [facility] Comment on above: Performed By: #### C BCANALI #### [facility] [address] [address] [address] Talia Plascencia ALP [Catalytic activity/Vol] 55 U/L Normal 46-116 [facility] Comment on above: Performed By: #### C BCANALI #### [facility] [address] [address] [address] Talia Plascencia ALT [Catalytic activity/Vol] 19 U/L Normal 16-63 [facility] Comment on above: Performed By: #### C SOLITARIO #### [facility] [address] [address] [address] Talia Plascencia Anion gap [Moles/Vol] 16.2 mmol/L Normal [facility] Comment on above: Performed By: #### C SOLITARIO #### [facility] [address] [address] [address] Talia Plascencia AST [Catalytic activity/Vol] 32 U/L Normal 15-37 [facility] Comment on above: Performed By: #### C SOLITARIO #### [facility] [address] [address] [address] Talia Plascencia Bilirubin [Mass/Vol] 1.3 mg/dL Critically high 0.2-1.0 [facility] Comment on above: Performed By: #### C SOLITARIO #### [facility] [address] [address] [address] Talia Plascencia Calcium [Mass/Vol] 7.8 mg/dL Critically low 8.5-10.1 [facility] Comment on above: Performed By: #### C SOLITARIO #### [facility] [address] [address] [address] Talia Plascencia Chloride [Moles/Vol] 99 mmol/L Normal 98-107 [facility] Comment on above: Performed By: #### C SOLITARIO #### [facility] [address] [address] [address] Talia Plascencia CO2 [Moles/Vol] 20.2 mmol/L Critically low 21.0-32.0 [facility] Comment on above: Performed By: #### C BCMAN #### [facility] [address] [address] [address] Talia Plascencia Creatinine [Mass/Vol] 1.34 mg/dL Critically high 0.70-1.30 [facility] Comment on above: Performed By: #### C BCMAN #### [facility] [address] [address] [address] Talia Plascencia EGFR-AF BAHRAINI >60 Normal >=60 [facility] Comment on above: Performed By: #### C BCMAN #### [facility] [address] [address] [address] Talia Plascencia EGFR-NON AF BAHRAINI 54 mL/min/1.73m2 Critically low >=60 [facility] Comment on above: Performed By: #### C BCMAN #### [facility] [address] [address] [address] Talia Plascencia Globulin (S) [Mass/Vol] 3.4 g/dL Normal [facility] Comment on above: Performed By: #### C BCMAN #### [facility] [address] [address] [address] Talia lPascencia Glucose [Mass/Vol] 179 mg/dL Critically high 74-106 T [facility] Comment on above: Performed By: #### C BCMAN #### [facility] [address] [address] [address] Talia Plascencia Potassium [Moles/Vol] 4.4 mmol/L Normal 3.5-5.1 [facility] Comment on above: Performed By: #### C BCMAN #### [facility] [address] [address] [address] Talia Plascencia Protein [Mass/Vol] 6.3 g/dL Critically low 6.4-8.2 Th [facility] Comment on above: Performed By: #### C BCMAN #### [facility] [address] [address] [address] Talia Plascencia Sodium [Moles/Vol] 131 mmol/L Critically low 136-145 Th [facility] Comment on above: Performed By: #### C SOLITARIO #### [facility] [address] [place] [address] Dr. Talia Plascencia Urea nitrogen [Mass/Vol] 25.0 mg/dL Critically high 7.0-18.0 [facility] Comment on above: Performed By: #### C SOLITARIO #### [facility] [address] [place] [address] Dr. Talia Plascencia Urea nitrogen/Creatinine [Mass ratio] 18.7 mg/mg Normal [facility] Comment on above: Performed By: #### C SOLITARIO #### [facility] [address] [place] [address] Dr. Talia Plascencia BNPon 04-23-2022 Natriuretic peptide B (Bld) [Mass/Vol] 346.0 pg/mL Normal <=900.0 [facility] Comment on above: Performed By: #### C SOLITARIO #### [facility] [address] [place] [address] Dr. Talia Plascencia CBC W MANUAL DIFFon 04-23-20 ATYPICAL LYMPH # Normal [facility] Comment on above: Performed By: #### C SOLITARIO #### [facility] [address] [place] [address] Dr. Talia Plascencia ATYPICAL LYMPH % Normal [facility] Comment on above: Performed By: #### C SOLITARIO #### [facility] [address] [place] [address] Dr. Talia Plascencia BAND # Normal 0.0-0.3 [facility] Comment on above: Performed By: #### C SOLITARIO #### [facility] [address] [place] [address] Dr. Talia Plascencia BAND % Normal 0-5 [facility] Comment on above: Performed By: #### C SOLITARIO #### [facility] [address] [place] [address] Dr. Talia Plascencia BASOM # 0.00 103/ul Normal 0.00-0.10 [facility] Comment on above: Performed By: #### C SOLITARIO #### [facility] [address] [address] [address] Talia Plascencia BASOM % 0.0 % Critically low 0.2-2.0 The [facility] Comment on above: Performed By: #### C BCMAN #### [facility] [address] [place] [address] Dr. Talia Plascencia BLAST # Normal [facility] Comment on above: Performed By: #### C BCANALI #### [facility] [address] [place] [address] Dr. Talia Plascencia BLAST % Normal [facility] Comment on above: Performed By: #### C BCANALI #### [facility] [address] [place] [address] Dr. Talia Plascencia CORRECTED WBC Normal 4.0-11.0 [facility] Comment on above: Performed By: #### C BCANALI #### [facility] [address] [place] [address] Dr. Talia Plascencia EOS # 0.00 103/ul Normal 0.00-0.70 [facility] Comment on above: Performed By: #### C SOLITARIO #### [facility] [address] [place] [address] Dr. Talia Plascencia EOS% 0.0 % Critically low 0.9-7.0 [facility] Comment on above: Performed By: #### C SOLITARIO #### [facility] [address] [place] [address] Dr. Talia Plascencia HCT 45.5 % Normal 42.0-54.0 [facility] Comment on above: Performed By: #### C BCANALI #### [facility] [address] [place] [address] Dr. Talia Plascencia HGB 15.5 g/dl Normal 14.0-18.0 [facility] Comment on above: Performed By: #### C BCANALI #### [facility] [address] [place] [address] Dr. Talia Plascencia LYMPHM # 0.33 103/ul Critically low 1.20-3.80 [facility] Comment on above: Performed By: #### C BCANALI #### [facility] [address] [place] [address] Dr. Talia Plascencia LYMPHM% 2.0 % Critically low 20.5-60.0 [facility] Comment on above: Performed By: #### C SOLITARIO #### [facility] [address] [place] [address] Dr. Talia Plascencia MCH 26.3 pg Normal 25.9-34.0 [facility] Comment on above: Performed By: #### C SOLITARIO #### [facility] [address] [place] [address] Dr. Talia Plascencia MCHC 34.1 g/dl Normal 29.9-35.2 [facility] Comment on above: Performed By: #### C SOLITARIO #### [facility] [address] [place] [address] Dr. Talia Plascencia MCV 77.1 fL Critically low 80.0-94.0 [facility] Comment on above: Performed By: #### C SOLITARIO #### [facility] [address] [place] [address] Dr. Talia Plascencia METAMYELOCYTE # Normal [facility] Comment on above: Performed By: #### C SOLITARIO #### [facility] [address] [place] [address] Dr. Talia Plascencia METAMYELOCYTE % Normal [facility] Comment on above: Performed By: #### C SOLITARIO #### [facility] [address] [place] [address] Dr. Talia Plascencia MONOM# 1.00 103/ul Critically high 0.30-0.80 [facility] Comment on above: Performed By: #### C SOLITARIO #### [facility] [address] [place] [address] Dr. Talia Plascencia MONOM% 6.0 % Normal 1.7-12.0 [facility] Comment on above: Performed By: #### C SOLITARIO #### [facility] [address] [place] [address] Dr. Talia Plascencia MPV 10.9 fL Normal 9.5-13.5 [facility] Comment on above: Performed By: #### C BCMAN #### [facility] [address] [address] [address] Talia Plascencia MYELOCYTE # Normal [facility] Comment on above: Performed By: #### C BCMAN #### [facility] [address] [address] [address] Talia Plascencia MYELOCYTE % Normal [facility] Comment on above: Performed By: #### C BCMAN #### [facility] [address] [address] [address] Talia Plascencia NRBC Normal [facility] Comment on above: Performed By: #### C BCANALI #### [facility] [address] [address] [address] Talia Plascencia PLT 177 103/ul Normal 150-450 [facility] Comment on above: Performed By: #### C BCANALI #### [facility] [address] [address] [address] Talia Plascencia RBC 5.90 106/ul Normal 4.70-6.10 [facility] Comment on above: Performed By: #### C BCMAN #### [facility] [address] [address] [address] Talia Plascencia RDW 14.6 % Normal 11.0-15.0 [facility] Comment on above: Performed By: #### C BCANALI #### [facility] [address] [address] [address] Talia Plascencia SEG # 15.27 103/ul Critically high 1.40-6.50 [facility] Comment on above: Performed By: #### C BCMAN #### [facility] [address] [address] [address] Talia Plascencia SEG % 92.0 % Critically high 43.0-75.0 [facility] Comment on above: Performed By: #### C BCMAN #### [facility] [address] [address] [address] Talia Plascencia WBC 16.6 103/ul Critically high 4.0-11.0 [facility] Comment on above: Performed By: #### C BCMAN #### [facility] [address] [place] [address] Dr. Talia Plascencia CULTURE BLOODon 04-23-2022 Microscopic examination of blood, culture Culture Observations: NO GROWTH AT 5 DAYS. Normal [facility] Comment on above: Performed By: #### C VDTBH #### [facility] [address] [place] [address] Dr. Talia Plascencia Covid-19 PCR ([facility])on 04-06 SARS-CoV-2 (COVID-19) RNA REKHA+probe Ql (Unsp spec) Not detected Normal NOT DETECTED [facility] Comment on above: Result Comment: When diagnostic testing is negative, the possibility of a false negative should be considered in the context of a patient's recent exposures and the presence of clinical signs and symptoms consistent with SARS-CoV-2. This test is not yet approved or cleared by the [place] FDA. When there are no FDA-approved or cleared tests available, and other criteria are met, FDA can make tests available under an emergency access mechanism called an Emergency Use Authorization (EUA). The EUA for this test is supported by the [employer] Operator of Health and Human Service's declaration that circumstances exist to justify the emergency use of in vitro diagnostics for the detection and/or diagnosis of the virus that causes COVID-19. This EUA will remain in effect for the duration of the COVID-19 declaration justifying emergency of IVDs, unless it is terminated or revoked by the FDA (after which the test may no longer be used). Performed By: #### C SOLITARIO #### [facility] [address] [place] [address] Dr. Talia Plascencia LACTATE/LACTIC ACIDon 2021 Lactate [Moles/Vol] 1.2 mmol/L Normal 0.4-1.9 [facility] Comment on above: Performed By: #### I NFLUAB #### [facility] [address] [place] [address] Dr. Talia Plascencia Performed By: #### P OCGLUC #### [facility] [address] [place] [address] Dr. Talia Plascencia PH VENOUS BLOODon 04-23-2022 PCO2 VENOUS 35.1 mmHg Critically low 40.0-52.0 [facility] Comment on above: Performed By: #### P OCGLUC #### [facility] [address] [place] [address] Dr. Talia Plascencia pH VENOUS 7.419 Normal 7.330-7.430 [facility] Comment on above: Performed By: #### P OCGLUC #### [facility] [address] [place] [address] Dr. Talia Plascencia POINT OF CARE GLUCOSEon 04-06 Glucose [Mass/Vol] 154 mg/dL Critically high 74-106 [facility] Comment on above: Performed By: #### P OCGLUC #### [facility] [address] [place] [address] Dr. Talia Plascencia PROF 14(COMP METB)on 022 Albumin [Mass/Vol] 3.7 g/dL Normal 3.4-5.0 [facility] Comment on above: Performed By: #### C BCMAN #### [facility] [address] [place] [address] Dr. Talia Plascencia Albumin/Globulin [Mass ratio] 0.9 {ratio} Normal [facility] Comment on above: Performed By: #### C BCMAN #### [facility] [address] [place] [address] Dr. Talia Plascencia ALP [Catalytic activity/Vol] 72 U/L Normal 46-116 [facility] Comment on above: Performed By: #### C BCMAN #### [facility] [address] [place] [address] Dr. Talia Plascencia ALT [Catalytic activity/Vol] 20 U/L Normal 16-63 [facility] Comment on above: Performed By: #### C BCMAN #### [facility] [address] [place] [address] Dr. Talia Plascencia Anion gap [Moles/Vol] 16.0 mmol/L Normal [facility] Comment on above: Performed By: #### C BCMAN #### [facility] [address] [place] [address] Dr. Talia Plascencia AST [Catalytic activity/Vol] 29 U/L Normal 15-37 [facility] Comment on above: Performed By: #### C SOLITARIO #### [facility] [address] [address] [address] Talia Plascencia Bilirubin [Mass/Vol] 1.5 mg/dL Critically high 0.2-1.0 [facility] Comment on above: Performed By: #### C SOLITARIO #### [facility] [address] [address] [address] Talia Plascencia Calcium [Mass/Vol] 8.7 mg/dL Normal 8.5-10.1 [facility] Comment on above: Performed By: #### C SOLITARIO #### [facility] [address] [place] [address] Dr. Talia Plascencia Chloride [Moles/Vol] 93 mmol/L Critically low 98-107 [facility] Comment on above: Performed By: #### C SOLITARIO #### [facility] [address] [place] [address] Dr. Talia Plascencia CO2 [Moles/Vol] 21.4 mmol/L Normal 21.0-32.0 [facility] Comment on above: Performed By: #### C SOLITARIO #### [facility] [address] [place] [address] Dr. Talia Plascencia Creatinine [Mass/Vol] 1.61 mg/dL Critically high 0.70-1.30 [facility] Comment on above: Performed By: #### C SOLITARIO #### [facility] [address] [place] [address] Dr. Talia Plascencia EGFR-AF BAHRAINI 53 mL/min/1.73m2 Critically low >=60 [facility] Comment on above: Performed By: #### C SOLITARIO #### [facility] [address] [place] [address] Dr. Talia Plascencia EGFR-NON AF BAHRAINI 44 mL/min/1.73m2 Critically low >=60 [facility] Comment on above: Performed By: #### C SOLITARIO #### [facility] Laboratory [address] [address] [address] Talia Plascencia Globulin (S) [Mass/Vol] 3.9 g/dL Normal [facility] Comment on above: Performed By: #### C SOLITARIO #### [facility] Laboratory [address] [place] [address] Dr. Talia Plascencia Glucose [Mass/Vol] 182 mg/dL Critically high 74-106 T [facility] Comment on above: Performed By: #### C SOLITARIO #### [facility] Laboratory [address] [place] [address] Dr. Talia Plascencia Potassium [Moles/Vol] 4.4 mmol/L Normal 3.5-5.1 [facility] Comment on above: Performed By: #### C SOLITARIO #### [facility] Laboratory [address] [place] [address] Dr. Talia Plascencia Protein [Mass/Vol] 7.6 g/dL Normal 6.4-8.2 [facility] Comment on above: Performed By: #### C SOLITARIO #### [facility] Laboratory [address] [place] [address] Dr. Talia Plascencia Sodium [Moles/Vol] 126 mmol/L Critically low 136-145 Th [facility] Comment on above: Performed By: #### C SOLITARIO #### [facility] Laboratory [address] [place] [address] Dr. Talia Plascencia Urea nitrogen [Mass/Vol] 30.0 mg/dL Critically high 7.0-18.0 [facility] Comment on above: Performed By: #### C SOLITARIO #### [facility] Laboratory [address] [place] [address] Dr. Talia Plascencia Urea nitrogen/Creatinine [Mass ratio] 18.6 mg/mg Normal [facility] Comment on above: Performed By: #### C SOLITARIO #### [facility] Laboratory [address] [place] [address] Dr. Talia Plascencia PROTIMEon 04-23-2022 INR Coag (PPP) [Relative time] 1.08 {INR} Normal [facility] Comment on above: Performed By: #### C VDTB #### [facility] Laboratory [address] [address] [address] Talia Plascencia INR GUIDELINES SEE BELOW Normal [facility] Comment on above: Result Comment: WENDY RED INR: 2.0 - 3.0 CONDITIONS NOT LISTED BELOW 2.5 - 3.5 FOR PROSTHETIC HEART VALVE REPLACEMENT 2.5 - 3.5 RECURRENT THROMBOSIS Performed By: #### C VDTBH #### [facility] Laboratory [address] [address] [address] Talia Plascencia PT Coag (PPP) [Time] 11.6 s Normal 9.0-11.6 [facility] Comment on above: Performed By: #### C VDTBH #### [facility] Laboratory [address] [place] [address] Dr. Talia Plascencia PTTon 04-23-2022 aPTT Coag (Bld) [Time] 32.2 s Normal 22.3-36.2 [facility] Comment on above: Performed By: #### C VDTB #### [facility] Laboratory [address] [address] [address] Talia Plascencia TROPONIN, HIGH SENSITIVITYon 04-23-2022 HSTROP 9.1 pg/mL Normal 4.0-76.1 [facility] Comment on above: Result Comment: CUT- OFF POINTS HAVE BEEN ESTABLISHED BASED ON THE FOURTH UNIVERSAL DEFINITIONS OF MYOCARDIAL INFARCTION. THE UPPER REFERENCE LIMIT (URL) OF TROPONIN, DEFINED THE 99TH PERCENTILE OF cTnI DISTRIBUTION IN A REFERENCE POPULATION, HAS BEEN CONFIRMED THE DECISION THRESHOLD FOR AK DIAGNOSIS. Performed By: #### C BCTHOMASVILLE #### [facility] Laboratory [address] [place] [address] Dr. Talia Plascencia US SARAH DOP LEG RTon 04-23-20 22 US SARAH DOP LEG RT EXAM: US SARAH DOP LEG RT HISTORY: Deep venous thrombosis COMPARISON: None. TECHNIQUE: Ultrasonography of the right lower extremity is performed from the groin to the calf. FINDINGS: The deep venous structures demonstrate normal compressibility. There is no intraluminal thrombus. Normal color Doppler images with spectral waveforms. There appears to be some subcutaneous edema along the calf. IMPRESSION: No evidence for deep venous thrombosis. Calf edema. Electronically authenticated by: TEVIN NAYAK Date: 2022-04-23 17:00 Normal [facility] ECHOCARDIO M/2D COMPLETEon 0 04-15-2022 ECHOCARDIO M/2D COMPLETE Patient: JOHNATHAN AMBROSIO Exam Date: 04/15/2022 : 1960 Gender:M Ordering : DR DASIA JEFFREY M.D. Admission #: [id number] Family : Order #: [id number] CLICK HERE TO VIEW EXAM ECHOCARDIOGRAM REPORT PROCEDURE: CARDIO PULMONARY ECHOCARDIO M/2D COMP INDICATIONS: Acute CHF COMPARISON: None. DESCRIPTION: COMPLETE ECHOCARDIOGRAM Real-time transthoracic echocardiography with 2D, M-mode, spectral and color flow Doppler performed. QUALITY: Technical quality was good. LEFT VENTRICLE: Normal chamber size. Moderate concentric left ventricular hypertrophy. Global left ventricular systolic function is normal. LV EF: Visual estimation of left ventricular ejection fraction is 60% DIASTOLIC: Normal diastolic function. ATRIAL SEPTUM: LEFT ATRIUM: Mild dilatation. RIGHT ATRIUM: Mild dilatation. RIGHT VENTRICLE: Normal chamber size. Normal right ventricular systolic function. TRICUSPID VALVE: Normal mobility and thickness. No stenosis with trivial regurgitation. No evidence of pulmonary hypertension. RVSP 17mmHg MITRAL VALVE: Normal mobility and thickness. No mitral valve prolapse. No evidence of mitral valve stenosis. There is no mitral annular calcification. Trivial mitral regurgitation. AORTIC VALVE: Normal trileaflet appearance. No visible sclerosis. Normal leaflet mobility. No evidence of aortic valve stenosis. No aortic regurgitation. AORTIC ROOT: Normal diameter and appearance. PULMONIC VALVE: Normal thickness and mobility. No stenosis. No regurgitation. PERICARDIUM: No evidence of pericardial effusion. IVC: Collapses with inspirations. Normal size. PLEURA: CONCLUSION: 1. Normal ventricular systolic function. LVEF is 60%. 2. Normal diastolic function. 3. No significant valvular dysfunction. 4. Normal right-sided pressures. 5. No pericardial effusion. Dictated by: Zhao Galan M.D. on 04/15/2022 at 19:30 Approved by: Zhao Galan M.D. on 04/15/2022 at 19:32 Normal [facility] BNPon 02-20-2022 Natriuretic peptide B (Bld) [Mass/Vol] 43.0 pg/mL Normal <=900.0 [facility] Comment on above: Performed By: #### B BRANCH ASSOCIATE, CMP #### [facility] Laboratory [address] [place] [address] Dr. Talia Plascencia GLYCOHEMOGLOBIN A1Con 2021 ADA RECOMMENDATION SEE BELOW Normal [facility] Comment on above: Result Comment: ADA RECOMMENDED LIMIT 4.0 - 6.0 ADA THERAPEUTIC TARGET < 7.0 ACTION SUGGESTED > 7.0 Performed By: #### A 1C #### [facility] Laboratory [address] [place] [address] Dr. Talia Plascencia Glucose [Mass/Vol] 203 mg/dL Normal [facility] Comment on above: Performed By: #### A 1C #### [facility] Laboratory [address] [place] [address] Dr. Talia Plascencia HbA1c (Bld) [Mass fraction] 8.7 % Critically high 4.5-6.2 [facility] Comment on above: Performed By: #### A 1C #### [facility] Laboratory [address] [place] [address] Dr. Taila Plascencia PROF 14(COMP METB)on 022 Albumin [Mass/Vol] 3.9 g/dL Normal 3.4-5.0 [facility] Comment on above: Performed By: #### B BRANCH ASSOCIATE, CMP #### [facility] Laboratory [address] [place] [address] Dr. Talia Plascencia Albumin/Globulin [Mass ratio] 1.1 {ratio} Normal [facility] Comment on above: Performed By: #### B BRANCH ASSOCIATE, CMP #### [facility] Laboratory [address] [place] [address] Dr. Talia Plascencia ALP [Catalytic activity/Vol] 74 U/L Normal 46-116 [facility] Comment on above: Performed By: #### B BRANCH ASSOCIATE, CMP #### [facility] Laboratory [address] [place] [address] Dr. Talia Plascencia ALT [Catalytic activity/Vol] 30 U/L Normal 16-63 [facility] Comment on above: Performed By: #### B BRANCH ASSOCIATE, CMP #### [facility] Laboratory [address] [place] [address] Dr. Talia Plascencia Anion gap [Moles/Vol] 12.2 mmol/L Normal [facility] Comment on above: Performed By: #### B BRANCH ASSOCIATE, CMP #### [facility] Laboratory [address] [address] [address] Talia Plascencia AST [Catalytic activity/Vol] 32 U/L Normal 15-37 [facility] Comment on above: Performed By: #### B BRANCH ASSOCIATE, CMP #### [facility] Laboratory [address] [address] [address] Talia Plascencia Bilirubin [Mass/Vol] 0.8 mg/dL Normal 0.2-1.0 [facility] Comment on above: Performed By: #### B BRANCH ASSOCIATE, CMP #### [facility] Laboratory [address] [address] [address] Talia Plascencia Calcium [Mass/Vol] 8.7 mg/dL Normal 8.5-10.1 [facility] Comment on above: Performed By: #### B BRANCH ASSOCIATE, CMP #### [facility] Laboratory [address] [address] [address] Talia Plascencia Chloride [Moles/Vol] 98 mmol/L Normal 98-107 [facility] Comment on above: Performed By: #### B BRANCH ASSOCIATE, CMP #### [facility] Laboratory [address] [address] [address] Talia Plascencia CO2 [Moles/Vol] 27.5 mmol/L Normal 21.0-32.0 [facility] Comment on above: Performed By: #### B BRANCH ASSOCIATE, CMP #### [facility] Laboratory [address] [address] [address] Talia Plascencia Creatinine [Mass/Vol] 1.33 mg/dL Critically high 0.70-1.30 [facility] Comment on above: Performed By: #### B BRANCH ASSOCIATE, CMP #### [facility] Laboratory [address] [address] [address] Talia Plascencia EGFR-AF BAHRAINI >60 Normal >=60 [facility] Comment on above: Performed By: #### B BRANCH ASSOCIATE, CMP #### [facility] Laboratory [address] [address] [address] Talia Plascencia EGFR-NON AF BAHRAINI 55 mL/min/1.73m2 Critically low >=60 [facility] Comment on above: Performed By: #### B BRANCH ASSOCIATE, CMP #### [facility] Laboratory [address] [address] [address] Talia Plascencia Globulin (S) [Mass/Vol] 3.6 g/dL Normal [facility] Comment on above: Performed By: #### B BRANCH ASSOCIATE, CMP #### [facility] Laboratory [address] [address] [address] Talia Plascencia Glucose [Mass/Vol] 233 mg/dL Critically high 74-106 T [facility] Comment on above: Performed By: #### B BRANCH ASSOCIATE, CMP #### [facility] Laboratory [address] [address] [address] Talia Plascencia Potassium [Moles/Vol] 4.7 mmol/L Normal 3.5-5.1 [facility] Comment on above: Performed By: #### B BRANCH ASSOCIATE, CMP #### [facility] Laboratory [address] [place] [address] Dr. Talia Plascencia Protein [Mass/Vol] 7.5 g/dL Normal 6.4-8.2 [facility] Comment on above: Performed By: #### B BRANCH ASSOCIATE, CMP #### [facility] Laboratory [address] [place] [address] Dr. Talia Plascencia Sodium [Moles/Vol] 133 mmol/L Critically low 136-145 Th [facility] Comment on above: Performed By: #### B BRANCH ASSOCIATE, CMP #### [facility] Laboratory [address] [place] [address] Dr. Talia Plascencia Urea nitrogen [Mass/Vol] 22.0 mg/dL Critically high 7.0-18.0 [facility] Comment on above: Performed By: #### B BRANCH ASSOCIATE, CMP #### [facility] Laboratory [address] [place] [address] Dr. Talia Plascencia Urea nitrogen/Creatinine [Mass ratio] 16.5 mg/mg Normal [facility] Comment on above: Performed By: #### B BRANCH ASSOCIATE, CMP #### [facility] Laboratory [address] [place] [address] Dr. Talia Plascencia ALT (SGPT)on 07-14-2018 ALT enzyme act/vol 15 U/L Normal 10-52 [facility] Comment on above: Performed By: #### 1 [id number] ####[facility] [address] [place] [address] AST (SGOT)on 07-14-2018 AST enzyme act/vol 23 U/L Normal 13-39 [facility] Comment on above: Performed By: #### 1 [id number] ####[facility] [address] [place] [address] Creatinineon 07-14-2018 Creatinine mass conc 1.07 mg/dL Normal 0.50-1.30 [facility] Comment on above: Performed By: #### 1 [id number] ####[facility] [address] [place] [address] GFR/1.73 sq M.predicted MDRD vol rate/area mL/min/{1.73_m2} Normal [facility] Comment on above: Result Comment: Inte rpretation for Chronic Kidney Disease:Stages 1&2 >60 Healthy or potential kidney damage.Mild decrease of GFR.Stage 3 30-59 Moderate decrease of GFR.Stage 4 15-29 Severe decrease of GFR.Stage 5 <15 Kidney failure or on dialysis. Performed By: #### 1 [id number] ####[facility] [address] [place] [address] Electrolyte Panelon 07-14-20 18 Anion gap 3 molar conc 10 mmol/L Normal 10-20 [facility] Comment on above: Performed By: #### 1 [id number] ####[facility] [address] [place] [address] Chloride molar conc 99 mmol/L Normal 98-107 [facility] Comment on above: Performed By: #### 1 [id number] ####[facility] [address] [place] [address] HCO3 molar conc (Bld) 32 mmol/L Normal 21-32 [facility] Comment on above: Performed By: #### 1 [id number] ####[facility] [address] [place] [address] Potassium molar conc 4.5 mmol/L Normal 3.5-5.1 [facility] Comment on above: Performed By: #### 1 [id number] ####[facility] [address] [facility] [place] [address] Sodium molar conc 136 mmol/L Normal 136-145 [facility] Comment on above: Performed By: #### 1 [id number] ####[facility] [address] [facility] [place] [address] Lipid Panelon 07-14-2018 Cholesterol in HDL mass conc 34 mg/dL Abnormal [facility] Comment on above: Result Comment: Norm al Mod Risk High Risk5-9 >48 42-48 <4210- 14 >45 40-45 <4015-19 >38 34-38 <34Adult >39 Performed By: #### 1 [id number] ####[facility] [address] [place] [address] Cholesterol in LDL mass conc 98 mg/dL Normal <130 [facility] Comment on above: Performed By: #### 1 [id number] ####[facility] [address] [facility] [place] [address] Cholesterol in VLDL mass conc 21 mg/dL Normal <30 [facility] Comment on above: Performed By: #### 1 [id number] ####[facility] [address] [facility] [place] [address] Cholesterol mass conc 153 mg/dL Normal <200 [facility] Comment on above: Performed By: #### 1 [id number] ####[facility] [address] [facility] [place] [address] Cholesterol.total/Ch olesterol in HDL mass ratio 4.5 {ratio} Normal [facility] Comment on above: Performed By: #### 1 [id number] ####[facility] [address] [facility] [place] [address] Triglyceride mass conc 104 mg/dL Normal <150 [facility] Comment on above: Result Comment: 150- 199 Borderline [id number] High>500 Very High Performed By: #### 1 [id number] ####[facility] [address] [place] [address] Urea Nitrogenon 07-14-2018 Urea nitrogen mass conc 16 mg/dL Normal 6-23 [facility] Comment on above: Performed By: #### 1 [id number] ####[facility] [address] [place] [address] Vital Signs Date Time Vital Sign Value Performing Clinician Facility 11-30-2023 08:52-0400 Body height 171.45 cm [facility] 11-30-2023 08:52-0400 Body mass index (BMI) [Ratio] 50.1 kg/m2 [facility] 11-30-2023 08:52-0400 Body weight 147.41 kg [facility] 11-30-2023 08:52-0400 Diastolic blood pressure 74 mm[Hg] [facility] 11-30-2023 08:52-0400 Heart rate 76 /min [facility] 11-30-2023 08:52-0400 Systolic blood pressure 110 mm[Hg] [facility] 09-15-2023 08:05-0500 Blood Pressure Location Lety Lue [facility] 09-15-2023 08:05-0500 Diastolic blood pressure 77 mm[Hg] Lety Lue [facility] 09-15-2023 08:05-0500 Heart rate 75 /min Lety Lue [facility] 09-15-2023 08:05-0500 Systolic blood pressure 118 mm[Hg] Lety Lue [facility] 08-06-2023 09:45-0500 Body height 171.45 cm Dasia Jeffrey Other [facility] Other 08-06-2023 09:45-0500 Body mass index (BMI) [Ratio] 48.51 kg/m2 Dasia Jeffrey Other [facility] Other 08-06-2023 09:45-0500 Body weight 142.61 kg Dasia Jeffrey Other [facility] [employer] Other 08-06-2023 09:45-0500 Diastolic blood pressure 79 mm[Hg] Dasia Jeffrey Other [facility] [employer] Other 08-06-2023 09:45-0500 Systolic blood pressure 112 mm[Hg] Dasia Jeffrey Other [facility] [employer] Other 03-03-2023 09:30-0400 Blood Pressure Location Lety Lue [facility] 03-03-2023 09:30-0400 Diastolic blood pressure 96 mm[Hg] Lety Lue [facility] 03-03-2023 09:30-0400 Heart rate 74 /min Lety Lue [facility] 03-03-2023 09:30-0400 Respiratory rate 16 /min Lety Lue [facility] 03-03-2023 09:30-0400 Systolic blood pressure 139 mm[Hg] Lety Lue [facility] 12-22-2022 09:53-0400 Body height 173.99 cm Dasia Jeffrey Work Phone: [facility] [employer] 250 DO Work Phone: 12-22-2022 09:53-0400 Body mass index (BMI) [Ratio] 46.9 kg/m2 Dasia Jeffrey Work Phone: [facility] [employer] 250 DO Work Phone: 12-22-2022 09:53-0400 Body surface area Derived from formula 2.49 m2 Dasia Jeffrey Work Phone: [facility] [employer] 250 DO Work Phone: 12-22-2022 09:53-0400 Body weight 141.98 kg Dasia Jeffrey Work Phone: [facility] [employer] 250 DO Work Phone: 12-22-2022 09:53-0400 Diastolic blood pressure 64 mm[Hg] Dasia Jeffrey Work Phone: [facility] [employer] 250 DO Work Phone: 12-22-2022 09:53-0400 Heart rate 74 /min Dasia Jeffrey Work Phone: [facility] [employer] 250 DO Work Phone: 12-22-2022 09:53-0400 Systolic blood pressure 120 mm[Hg] Dasia Jeffrey Work Phone: [facility] [employer] DO Work Phone: 12-09-2022 09:45-0400 Body height 171.45 cm Dasia Jeffrey Other [facility] Other 12-09-2022 09:45-0400 Body mass index (BMI) [Ratio] 47.52 kg/m2 Dasia Jeffrey Other [facility] Other 12-09-2022 09:45-0400 Body weight 139.71 kg Dasia Jeffrey Other [facility] Other 12-09-2022 09:45-0400 Diastolic blood pressure 80 mm[Hg] Dasia Jeffrey Other [facility] Other 12-09-2022 09:45-0400 SaO2% (BldA) [Mass fraction] 97 % Dasia Jeffrey Other [employer] Other 12-09-2022 09:45-0400 Systolic blood pressure 122 mm[Hg] Dasia Wojciech Other [facility] Other 11-25-2022 10:15-0400 Blood Pressure Location Lety Lue [facility] 11-25-2022 10:15-0400 Diastolic blood pressure 79 mm[Hg] Lety Lue [facility] 11-25-2022 10:15-0400 Heart rate 76 /min Lety Lue [facility] 11-25-2022 10:15-0400 Respiratory rate 16 /min Lety Lue [facility] 11-25-2022 10:15-0400 Systolic blood pressure 129 mm[Hg] Lety Lue [facility] 08-19-2022 07:54-0500 Blood Pressure Location Lety Lue [facility] 08-19-2022 07:54-0500 Diastolic blood pressure 90 mm[Hg] Lety Lue [facility] 08-19-2022 07:54-0500 Heart rate 82 /min Lety Lue [facility] 08-19-2022 07:54-0500 Systolic blood pressure 128 mm[Hg] [facility] Encounters Encounter Date Encounter Type Care Provider Facility Start: 11-30-2023 End: 12-01-2023 ambulatory HARRY MARQUEZ Facility:[facility] Start: 11-30-2023 End: 11-30-[address] [facility] Work Phone: Start: 11-30-2023 End: 11-30-2023 Patient encounter procedure [facility] Work Phone: Start: 11-25-2023 Non-patient / Non-visit [facility] [employer] Work Phone: Start: 11-16-2023 End: 11-17-2023 ambulatory Lety M. Lue Facility:[facility] Start: 11-16-2023 End: 11-16-2023 Patient encounter [facility] Start: 11-03-2023 End: 11-04-2023 ambulatory Lety M. Lue Facility:[facility] Start: 11-03-2023 End: 11-03-2023 Patient encounter procedure [facility] Start: 10-20-2023 End: 10-21-2023 ambulatory Lety M. Lue Facility:[facility] Start: 10-20-2023 End: 10-20-2023 Patient encounter [facility] Start: 09-29-2023 End: 09-30-2023 ambulatory Lety M. Lue Facility: Start: 09-29-2023 End: 09-29-2023 Patient encounter procedure Lety M. Lue [facility] Start: 09-15-2023 End: 09-16-2023 ambulatory Lety M. Lue Facility:[facility] Start: 09-15-2023 End: 09-15-2023 Patient encounter procedure Lety Vitale [facility] Start: 09-08-2023 End: 09-09-2023 ambulatory Lety M. Lue Facility:[facility] Start: 09-08-2023 End: 09-08-2023 Lab Drop off Lety Borja. Zahraae [facility] Start: 09-08-2023 End: 09-08-2023 Patient encounter procedure Lety Borja. Zahraae [facility] Start: 09-01-2023 End: 09-02-2023 ambulatory Lety M. Lue Facility:[facility] Start: 09-01-2023 End: 09-01-2023 Patient encounter procedure Lety Vitale [facility] Start: 08-26-2023 End: 08-26-2023 ambulatory Dasia Jeffrey Other [facility] Other Start: 08-26-2023 Telephone encounter Dasia Jeffrey [facility] Start: 08-09-2023 End: 08-09-2023 ambulatory Dasia Jeffrey Other [facility] Other Start: 08-09-2023 Telephone encounter [address]asia Jeffrey [facility] Start: 08-06-2023 End: 08-06-2023 ambulatory Dasia Jeffrey Other [facility] Other Start: 08-06-2023 Office outpatient vi sit [address] [facility] Start: 08-04-2023 End: 08-05-2023 ambulatory Lety M. Lue Facility:[email or web address] Start: 08-04-2023 End: 08-04-2023 Patient encounter [facility] Start: 07-21-2023 End: 07-22-2023 ambulatory Lety M. Lue Facility:[email or web address] Start: 07-21-2023 End: 07-21-2023 Patient encounter procedure [facility] Start: 07-07-2023 End: 07-08-2023 ambulatory Lety M. Lue Facility:[email or web address] Start: 07-07-2023 End: 07-07-2023 Patient encounter procedure Lety M. Lue [facility] [employer] Start: 06-23-2023 End: 06-24-2023 ambulatory Lety M. Lue Facility:[email or web address] Start: 06-23-2023 End: 06-23-2023 Patient encounter procedure [facility] Start: 06-09-2023 End: 06-10-2023 ambulatory Lety M. Lue Facility:[email or web address] Start: 06-02-2023 End: 06-03-2023 ambulatory Lety M. Lue Facility:[facility] Start: 05-26-2023 End: 05-27-2023 ambulatory Lety M. Lue Facility:[facility] Start: 05-26-2023 End: 05-26-2023 Patient encounter procedure [facility] Start: 05-12-2023 End: 05-13-2023 ambulatory Lety M. Lue Facility:[facility] Start: 05-12-2023 End: 05-12-2023 Patient encounter procedure Lety M. Lue [facility] Start: 04-28-2023 End: 04-29-2023 ambulatory Lety M. Lue [facility] Start: 04-28-2023 End: 04-28-2023 Patient encounter procedure Lety M. Lue [facility] Start: 04-14-2023 End: 04-15-2023 ambulatory Lety M. Lue Facility:[facility] Start: 04-14-2023 End: 04-14-2023 Patient encounter procedure Lety M. Lue [facility] Start: 03-31-2023 End: 04-01-2023 ambulatory Lety M. Lue [facility] Start: 03-31-2023 End: 03-31-2023 Patient encounter procedure Lety M. Lue [facility] Start: 03-29-2023 End: 03-29-2023 ambulatory Dasia Jeffrey Other [facility] Other Start: 03-29-2023 Telephone [address] Jeffrey [facility] Start: 03-17-2023 Telephone encounter Dasia Jeffrey [facility] Start: 03-17-2023 End: 03-18-2023 ambulatory Lety M. Lue [facility] Other Start: 03-17-2023 End: 03-17-2023 Patient encounter procedure Lety M. Lue [facility] Start: 03-03-2023 End: 03-04-2023 ambulatory Lety Jonh. Lue Facility:[facility] Start: 03-03-2023 End: 03-03-2023 Patient encounter procedure Lety Borja. Zahraae [facility] Start: 02-24-2023 End: 02-25-2023 ambulatory Lety Jonh. Lue Facility:[facility] Start: 02-24-2023 End: 02-24-2023 Lab Drop off Lety Borja. Zahraae [facility] Start: 02-24-2023 End: 02-24-2023 Patient encounter procedure Lety JonhAbhinav Vitalritika [facility] Start: 02-22-2023 End: 02-22-2023 ambulatory Dasia Jeffrey Other [facility] Other Start: 02-22-2023 Telephone encounter Dasia Jeffrey [facility] Start: 02-17-2023 End: 02-18-2023 ambulatory HARRY MARQUEZ Facility:[facility] Start: 02-17-2023 End: 02-17-2023 Patient encounter procedure HARRY Ritika JIMMY [facility] Start: 02-03-2023 End: 02-04-2023 ambulatory HARRY Ritika JIMMY Facility:[facility] Start: 02-03-2023 End: 02-03-2023 Patient encounter procedure HARRY E JIMMY [facility] Start: 01-19-2023 End: 01-20-2023 ambulatory Lety M. Lue Facility:[facility] Start: 01-07-2023 End: 01-07-2023 ambulatory Dasia Jeffrey Other [facility] Other Start: 01-07-2023 Telephone encounter Dasia Jeffrey [facility] Start: 01-06-2023 End: 01-07-2023 ambulatory Lety JnohAbhinav Gonzalez Facility:[facility] Start: 01-06-2023 End: 01-06-2023 Patient encounter procedure Lety MAbhinav Gonzalez [facility] Start: 12-23-2022 End: 12-24-2022 ambulatory Lety JonhAbhinav Gonzalez Facility:[facility] Start: 12-23-2022 End: 12-23-2022 Patient encounter procedure Lety MAbhinav Vitalritika [facility] Start: 12-22-2022 Office outpatient vi sit 15 minutes Dasia Jeffrey Work Phone: [facility] 250 DO Work Phone: Start: 12-22-2022 ambulatory Gabino Mccormick y: Start: 12-17-2022 End: 12-18-[address] DASIA JEFFREY Facility:[facility] Start: 12-09-2022 Office outpatient vi sit [address] [facility] Start: 12-09-2022 End: 12-10-2022 ambulatory Lety Gonzalez [facility] Other Start: 12-09-2022 End: 12-09-2022 Patient encounter procedure Lety M. aZhraae [facility] Start: 11-25-2022 End: 11-25-2022 Patient encounter procedure Lety MAbhinav Vitalritika [facility] Start: 11-20-2022 End: 11-20-2022 Lab Drop off Gurwinder SILVEIRA [facility] Start: 11-20-2022 End: 11-20-2022 Patient encounter procedure Lety JonhAbhinav Gonzalez [facility] Start: 11-18-2022 End: 11-18-2022 Lab Drop off Lety BorjaAbhinav Gonzalez [facility] Start: 11-18-2022 End: 11-18-2022 Patient encounter procedure Lety MAbhinav Vitalritika [facility] Start: 11-11-2022 End: 11-11-2022 Patient encounter procedure Lety MAbhinav Vitalritika [facility] Start: 10-28-2022 End: 10-28-2022 Patient encounter procedure HARRY MARQUEZ [facility] Start: 10-20-2022 [facility] Gabino Mccormick [id number] Start: 10-13-2022 End: 10-13-2022 Patient encounter procedure HARRY MARQUEZ [facility] Start: 09-29-2022 End: 09-29-2022 Patient encounter procedure HRARY MARQUEZ [facility] Start: 09-16-2022 End: 09-16-2022 Patient encounter procedure Lety Gonzalez [facility] Start: 09-09-2022 End: 09-09-2022 Patient encounter procedure Lety Gonzalez [facility] Start: 09-02-2022 End: 09-02-2022 Patient encounter procedure Lety Gonzalez [facility] Start: 08-19-2022 End: 08-19-2022 Patient encounter procedure Lety Gonzalez [facility] Start: 08-11-2022 Rx Renewal Gabino skelton DO Work Phone: [facility] 250 DO Work Phone: Start: 08-04-2022 End: 08-05-[address] SURJIT LOPEZ . Facility:[facility] Start: 08-04-2022 Adult health examination Dasia Jeffrey Other [facility] Other Start: 08-04-2022 Problem, abnormal examination Dasia Jeffrey Other [facility] Other Start: 07-29-2022 End: 07-30-[address] DASIA JEFFREY Facility:[facility] Start: 07-08-2022 End: 07-08-2022 Patient encounter procedure HARRY MARQUEZ [facility] Start: 06-15-2022 Rx Renewal Gabino skelotn DO Work Phone: [facility] 250 DO Work Phone: Start: 06-10-2022 End: 06-10-2022 Patient encounter procedure Lety Gonzalez [facility] Start: 05-22-2022 Rx Renewal Gabino Rosa M n DO Work Phone: [facility] 250 DO Work Phone: Start: 05-13-2022 End: 05-14-[address] DASIA JEFFREY Facility:[facility] Start: 05-12-2022 Rx Renewal Jacqueline Tinoco Smi th [employer] Work Phone: [facility] 250 DO Work Phone: Start: 04-23-2022 End: 04-26-[address] CLAY EWING . Facility:[facility] Start: 04-15-2022 End: 04-16-[address] DASIA JEFFREY Facility:[facility] Start: 03-31-2022 End: 03-31-2022 Patient encounter procedure Venkat Proctor Jr. [facility] Start: 03-03-2022 End: 03-03-2022 Patient encounter procedure Venkat Proctor Jr. [facility] Start: 02-20-2022 End: 02-21-[address] DASIA JEFFREY Facility:[facility] Start: 02-03-2022 End: 02-03-2022 Patient encounter procedure Venkat Proctor Jr. [facility] Start: 01-12-2022 End: 01-13-2022 ambulatory NAM CANO Facility:[facility] Start: 01-06-2022 End: 01-06-2022 Patient encounter procedure Venkat Proctor Jr. [facility] Start: 12-09-2021 End: 12-09-2021 Patient encounter procedure Venkat Proctor Jr. [facility] Start: 07-14-2018 Patient encounter procedure PROVIDER UNKNOWN Facility:[id number] Procedures Date Procedure Procedure Detail Performing Clinician Start: 05-25-2017 Screening for malign ant neoplasm of prostate Dasia Jeffrey Other Start: 08-14-2013 General examination of patient Dasia Jeffrey Other Aortic stent (physic al object) Lety Carlos Colonoscopy Gabino Deluca DO Work Phone: Depression screening Dasia Wojciech Other Great toe structure (body structure) Venkat Proctor Jr. History of percutane ous transluminal coronary angioplasty History of PTCA Gabino Deluca DO Work Phone: Hyperlipidemia screening Ana Rosa Jeffrey Other Incision and drainag e of cyst Gabino Deluca DO Work Phone: Comment on above: of skin abcess hip o n the right; Operative procedure on foot Gabino Deluca DO Work Phone: Tonsillectomy Venkat carranza Tonsillectomy and adenoidectomy Gabino Deluca DO Work Phone: Plan of Treatment Date Care Activity Detail Author Start: 03-01-2024 ambulatory Ambulatory Facility:[facility] Start: 12-22-2023 [facility], Provider: Jacqueline Ku, Status: Pen, Time: 10:00 AM [facility], Provider: Jacqueline Ku, Status: Pen, Time: 10:00 AM [facility] 250 DO Work Phone: Start: 12-14-2023 ambulatory Ambulatory Facility:[facility] Start: 11-30-2023 Patient referral [facility] Work Phone: Start: 10-20-2022 FUV, Provider: Gabino Deluca, Status: Pen, Time: 9:30 AM [facility], Provider: Gabino Deluca, Status: Pen, Time: 9:30 AM [facility] 250 DO Work Phone: Start: 08-05-2022 FUV, Provider: Gabino Deluca, Status: Pen, Time: 10:30 AM [facility], Provider: Gabino Deluca, Status: Pen, Time: 10:30 AM [facility] 250 DO Work Phone: Comprehensive metabo lic 2000 panel - Serum or Plasma [facility] Patient referral [facility] Work Phone: [facility] Immunizations Immunization Date Immunization Notes Care Provider Fa saskia 07-04-2021 Pfizer-BioNTech COVID-19 Vacc 30 MCG/0.3ML Intramuscular Suspension Gabino Deluca DO Work Phone: [facility] Comment on above: Result Comment: 2021: TPV60 12-01-2020 Pfizer-BioNTech COVID-19 Vacc 30 MCG/0.3ML Intramuscular Suspension Gabino Deluca DO Work Phone: [facility] Comment on above: Result Comment: 2021: TPV60 11-12-2020 Pfizer-BioNTech COVID-19 Vacc 30 MCG/0.3ML Intramuscular Suspension Gabino Deluca DO Work Phone: [facility] Comment on above: Result Comment: 2021: TPV60 NEGATED: Highlighted row has not occurred!09-15-2023 influenza virus vaccine, unspecified formulation Lety Gonzalez [facility] Payers Date Payer Category Payer Unknown [id number] 1960 Unknown [id number] 2.16.840.1.188412.3.579.2.355 1960 Unknown [id number] 2.16.840.1.223398.3.579.2.593 1960 Unknown [id number] 2.16.840.1.582473.3.579.2.593 1960 Unknown [id number] 2.16.840.1.572374.3.579.2.593 1960 Unknown [id number] 2.16.840.1.792521.3.579.2.593 1960 Unknown [id number] 2.16.840.1.979089.3.579.2.593 1960 Unknown [id number] 2.16.840.1.352019.3.579.2.593 1960 Unknown [id number] 2.16.840.1.137875.3.579.2.593 1960 Unknown [id number] 2.16.840.1.178423.3.579.2.593 1960 Unknown [id number] 2.16.840.1.574889.3.579.2.356 1960 Unknown [id number] 2.16.840.1.446004.3.579.2.356 1960 Unknown [id number] 2.16.840.1.688379.3.579.2.727 1960 Unknown [id number] 2.16.840.1.253558.3.579.2.727 1960 Unknown [id number] 2.16.840.1.068408.3.579.2.727 1960 Unknown [id number] 2.16.840.1.103478.3.579.2.727 1960 Unknown [id number] 2.16.840.1.698229.3.579.2. 1960 Unknown [id number] 2.16.840.1.420510.3.579.2. 1960 Unknown [id number] 2.16.840.1.515628.3.579.2 1960 Unknown [id number] 2.16.840.1.531907.3.579.2. 1960 Unknown [id number] 2.16.840.1.490139.3.579.2 1960 Unknown [id number] 2.16.840.1.952112.3.579.2 1960 Unknown [id number] 2.16.840.1.262386.3.579.2 1960 Unknown [id number] 2.16.840.1.971565.3.579.2 1960 Unknown [id number] 2.16.840.1.786890.3.579.2 1960 Unknown [id number] 2.16.840.1.631949.3.579.2 1960 Unknown [id number] 2.16.840.1.643120.3.579.2 1960 Unknown [id number] 2.16.840.1.943493.3.579.2 1960 Unknown [id number] 2.16.840.1.259741.3.579.2 1960 Unknown [id number] 2.16.840.1.647803.3.579.2 1960 Unknown [id number] 2.16.840.1.291411.3.579.2 1960 Unknown [id number] 2.16.840.1.225975.3.579.2.727 1960 Unknown [id number] 2.16.840.1.914804.3.579.2.727 1960 Unknown [id number] 2.16.840.1.431822.3.579.2.727 1960 Unknown [id number] 2.16.840.1.648688.3.579.2.727 1960 Unknown [id number] 2.16.840.1.418772.3.579.2.727 1960 Unknown [id number] 2.16.840.1.393961.3.579.2.7 1960 Unknown [id number] 2.16.840.1.482296.3.579.2.727 1960 Unknown [id number] 2.16.840.1.415096.3.579.2.727 1960 Unknown [id number] 2.16.840.1.430970.3.579.2.727 1960 Unknown [id number] 2.16.840.1.732892.3.579.2.727 1960 Unknown [id number] 2.16.840.1.523404.3.579.2.7 1960 Unknown [id number] 2.16.840.1.376586.3.579.2.727 1960 Unknown [id number] 2.16.840.1.800918.3.579.2.727 1959 Unknown [id number] Self-pay Self Pay [id number] Unknown COMMERCIAL Unknown [employer] [id number] Social History Date Type Detail Facility Start: 07-03-2021 End: 09-15-2023 Tobacco smoking status Ex-smoker (finding) [facility] Sex Assigned At Male [facility] Caffeine use Caffeine use [facility] 250 DO Work Phone: Comment on above: coffee all day long; quit 2012 1ppd; Tobacco smoking status Never [facility] Start: 1960 Sex Assigned At Male F [facility] Medical Equipment Procedure Code Equipment Code Equipment Origin al Text Equipment Identifier Dates Start: 11-25-2022 Lancets (Freesty le Lancets) 28 gauge misc Start: 11-16-2023 Lancets (Freesty le Lancets) 28 gauge misc Start: 11-16-2023 End: 11-16-2023 Functional Status Date Assessment Result Facility 09-15-2023 Functional Status N/A [facility] 03-03-2023 Functional Status No [facility] 11-25-2022 Functional Status N/A [facility] 09-09-2022 Functional Status N/A [facility] 08-19-2022 Functional Status N/A [facility] Clinical Notes 05-27-2022 to 09-15-2023 Note Date & Type Note Facility 09-15-2023 Hospital Discharg e instructions Patient Education 09/15/2023 08:36:20 Erectile Dysfunction Erectile Dysfunction Erectile dysfunction (ED) is the inability to get or keep an erection in order to have sexual intercourse. ED is considered a symptom of an underlying disorder and is not considered a disease. ED may include: Inability to get an erection. Lack of enough hardness of the erection to allow penetration. Loss of erection before sex is finished. What are the causes? This condition may be caused by: Physical causes, such as: ?Artery problems. This may include heart disease, high blood pressure, atherosclerosis, and diabetes. ?Hormonal problems, such as low testosterone. ?Obesity. ?Nerve problems. This may include back or pelvic injuries, multiple sclerosis, Parkinson's disease, spinal cord injury, and stroke. Certain medicines, such as: ?Pain relievers. ?Antidepressants. ?Blood pressure medicines and water pills (diuretics). ?Cancer medicines. ?Antihistamines. ?Muscle relaxants. Lifestyle factors, such as: ?Use of drugs such as marijuana, cocaine, or opioids. ?Excessive use of alcohol. ?Smoking. ?Lack of physical activity or exercise. Psychological causes, such as: ?Anxiety or stress. ?Sadness or depression. ?Exhaustion. ?Fear about sexual performance. ?Guilt. What are the signs or symptoms? Symptoms of this condition include: Inability to get an erection. Lack of enough hardness of the erection to allow penetration. Loss of the erection before sex is finished. Sometimes having normal erections, but with frequent unsatisfactory episodes. Low sexual satisfaction in either partner due to erection problems. A curved penis occurring with erection. The curve may cause pain, or the penis may be too curved to allow for intercourse. Never having nighttime or morning erections. How is this diagnosed? This condition is often diagnosed by: Performing a physical exam to find other diseases or specific problems with the penis. Asking you detailed questions about the problem. Doing tests, such as: ?Blood tests to check for diabetes mellitus or high cholesterol, or to measure hormone levels. ?Other tests to check for underlying health conditions. ?An ultrasound exam to check for scarring. ?A test to check blood flow to the penis. Doing a sleep study at home to measure nighttime erections. How is this treated? This condition may be treated by: Medicines, such as: ?Medicine taken by mouth to help you achieve an erection (oral medicine). ?Hormone replacement therapy to replace low testosterone levels. ?Medicine that is injected into the penis. Your health care provider may instruct you how to give yourself these injections at home. ?Medicine that is delivered with a short applicator tube. The tube is inserted into the opening at the tip of the penis, which is the opening of the urethra. A tiny pellet of medicine is put in the urethra. The pellet dissolves and enhances erectile function. This is also called MUSE (medicated urethral system for erections) therapy. Vacuum pump. This is a pump with a ring on it. The pump and ring are placed on the penis and used to create pressure that helps the penis become erect. Penile implant surgery. In this procedure, you may receive: ?An inflatable implant. This consists of cylinders, a pump, and a reservoir. The cylinders can be inflated with a fluid that helps to create an erection, and they can be deflated after intercourse. ?A semi-rigid implant. This consists of two silicone rubber rods. The rods provide some rigidity. They are also flexible, so the penis can both curve downward in its normal position and become straight for sexual intercourse. Blood vessel surgery to improve blood flow to the penis. During this procedure, a blood vessel from a different part of the body is placed into the penis to allow blood to flow around (bypass) damaged or blocked blood vessels. Lifestyle changes, such as exercising more, losing weight, and quitting smoking. Follow these instructions at home: Medicines Take ilyf-pbs-vblhiym and prescription medicines only as told by your health care provider. Do not increase the dosage without first discussing it with your health care provider. If you are using self-injections, do injections as directed by your health care provider. Make sure you avoid any veins that are on the surface of the penis. After giving an injection, apply pressure to the injection site for 5 minutes. Talk to your health care provider about how to prevent headaches while taking ED medicines. These medicines may cause a sudden headache due to the increase in blood flow in your body. General instructions Exercise regularly, as directed by your health care provider. Work with your health care provider to lose weight, if needed. Do not use any products that contain nicotine or tobacco. These products include cigarettes, chewing tobacco, and vaping devices, such as e-cigarettes. If you need help quitting, ask your health care provider. Before using a vacuum pump, read the instructions that come with the pump and discuss any questions with your health care provider. Keep all follow-up visits. This is important. Contact a health care provider if: You feel nauseous. You are vomiting. You get sudden headaches while taking ED medicines. You have any concerns about your sexual health. Get help right away if: You are taking oral or injectable medicines and you have an erection that lasts longer than 4 hours. If your health care provider is unavailable, go to the nearest emergency room for evaluation. An erection that lasts much longer than 4 hours can result in permanent damage to your penis. You have severe pain in your groin or abdomen. You develop redness or severe swelling of your penis. You have redness spreading at your groin or lower abdomen. You are unable to urinate. You experience chest pain or a rapid heartbeat (palpitations) after taking oral medicines. These symptoms may represent a serious problem that is an emergency. Do not wait to see if the symptoms will go away. Get medical help right away. Call your local emergency services (911 in the [place] Do not drive yourself to the hospital. Summary Erectile dysfunction (ED) is the inability to get or keep an erection during sexual intercourse. This condition is diagnosed based on a physical exam, your symptoms, and tests to determine the cause. Treatment varies depending on the cause and may include medicines, hormone therapy, surgery, or a vacuum pump. You may need follow-up visits to make sure that you are using your medicines or devices correctly. Get help right away if you are taking or injecting medicines and you have an erection that lasts longer than 4 hours. This information is not intended to replace advice given to you by your health care provider. Make sure you discuss any questions you have with your health care provider. Document Revised: 11/19/2021 Document Reviewed: 11/19/2021 [employer] Patient Education 2022 [employer]. Follow Up Care 06/09/2023 08:31:20 With:Carlos LIZAMA, SHAYY Hernandes, URO Address: [address] [place] [address] Dannielle, [place] [address]- [phone] When: Unknown Comments:3 mos w/ PSA, T level, and HCT [facility] 08-06-2023 Evaluation note Encounter Date Diagnosis Assessment Notes Aug, Type 2 diabetes mellitus with hyperglycemia, without long-term current use of insulin (ICD-10 - E11.65) Pt will get A1C in next few days. Consider seeing specialist for this problem. He has had issues with formulary with medications. Continue other present meds. Aug, Hyperlipidemia, unspecified (ICD-10 - E78.5) Patient to continue to watch diet and increase exercise routine. Remain active as tolerated and we will continue to monitor with routine blood work. Patient is to continue with above medication as directed. Aug, Essential (primary) hypertension (ICD-10 - I10) Blood pressure remains well controlled at this time. Denies cardiac symptoms. Shows no signs or symptoms or poor control. Patient to continue with above medication and we will continue to monitor. Advised to pay attention to body and symptoms. Any developing patterns. Stay well hydrated. Aug, Chronic venous insufficiency (ICD-10 - I87.2) continue to encourage exercise and elevate legs prn [facility] Other 07-12-2023 Evaluation note* Encounter Date Diagnosis Assessment Notes Treatment Notes Treatment Clinical Notes Mar, Abdominal pain (ICD-10 - R10.9) [facility] Other 06-28-2023 Hospital Discharge instructions Follow Up Care 03/03/2023 10:42:41 With:Carlos LIZAMA, Lety Scott, URMalaika, URO Address: [address] [place] [phone] When:Within 2 Week(s) Comments:Will return in 2wks for next injection.Will see Dr Gonzalez end of May with PSA T & HCT & HGB. [facility] 06-28-2023 Hospital Discharge instructions Patient Education 03/03/2023 10:40:06 Erectile Dysfunction Erectile Dysfunction Erectile dysfunction (ED) is the inability to get or keep an erection in order to have sexual intercourse. ED is considered a symptom of an underlying disorder and is not considered a disease. ED mayinclude: Inability to get an erection. Lack of enough hardness of the erection to allow penetration. Loss of erection before sex is finished. What are the causes? This condition may be caused by: Physical causes, such as: ?Artery problems. This may include heart disease, high blood pressure, atherosclerosis, and diabetes. ?Hormonal problems, such as low testosterone. ?Obesity. ?Nerve problems. This may include back or pelvic injuries, multiple sclerosis, Parkinson's disease,spinal cord injury, and stroke. Certain medicines, such as: ?Pain relievers. ?Antidepressants. ?Blood pressure medicines and water pills (diuretics). ?Cancer medicines. ?Antihistamines. ?Muscle relaxants. Lifestyle factors, such as: ?Use of drugs such as marijuana, cocaine, or opioids. ?Excessive use of alcohol. ?Smoking. ?Lack of physical activity or exercise. Psychological causes, such as: ?Anxiety or stress. ?Sadness or depression. ?Exhaustion. ?Fear about sexual performance. ?Guilt. What are the signs or symptoms? Symptoms of this condition include: Inability to get an erection. Lack of enough hardness of the erection to allow penetration. Loss of the erection before sex is finished. Sometimes having normal erections, but with frequent unsatisfactory episodes. Low sexual satisfaction in either partner due to erection problems. A curved penis occurring with erection. The curve may cause pain, or the penis may be too curved toallow for intercourse. Never having nighttime or morning erections. How is this diagnosed? This condition is often diagnosed by: Performing a physical exam to find other diseases or specific problems with the penis. Asking you detailed questions about the problem. Doing tests, such as: ?Blood tests to check for diabetes mellitus or high cholesterol, or to measure hormone levels. ?Other tests to check for underlying health conditions. ?An ultrasound exam to check for scarring. ?A test to check blood flow to the penis. Doing a sleep study at home to measure nighttime erections. How is this treated? This condition may be treated by: Medicines, such as: ?Medicine taken by mouth to help you achieve an erection (oral medicine). ?Hormone replacement therapy to replace low testosterone levels. ?Medicine that is injected into the penis. Your health care provider may instruct you how to give yourself these injections at home. ?Medicine that is delivered with a short applicator tube. The tube is inserted into the opening at the tip of the penis, which is the opening of the urethra. A tiny pellet of medicine is put in the urethra. The pellet dissolves and enhances erectile function. This is also called MUSE (medicated urethral system for erections) therapy. Vacuum pump. This is a pump with a ring on it. The pump and ring are placed on the penis and used to create pressure that helps the penis become erect. Penile implant surgery. In this procedure, you may receive: ?An inflatable implant. This consists of cylinders, a pump, and a reservoir. The cylinders can be inflated with a fluid that helps to create an erection, and they can be deflated after intercourse. ?A semi-rigid implant. This consists of two silicone rubber rods. The rods provide some rigidity. They are also flexible, so the penis can both curve downward in its normal position and become straight for sexual intercourse. Blood vessel surgery to improve blood flow to the penis. During this procedure, a blood vessel froma different part of the body is placed into the penis to allow blood to flow around (bypass) damaged or blocked blood vessels. Lifestyle changes, such as exercising more, losing weight, and quitting smoking. Follow these instructions at home: Medicines Take urey-orl-pouwwzg and prescription medicines only as told by your health care provider. Do not increase the dosage without first discussing it with your health care provider. If you are using self-injections, do injections as directed by your health care provider. Make sureyou avoid any veins that are on the surface of the penis. After giving an injection, apply pressureto the injection site for 5 minutes. Talk to your health care provider about how to prevent headaches while taking ED medicines. These medicines may cause a sudden headache due to the increase in blood flow in your body. General instructions Exercise regularly, as directed by your health care provider. Work with your health care provider to lose weight, if needed. Do not use any products that contain nicotine or tobacco. These products include cigarettes, chewing tobacco, and vaping devices, such as e-cigarettes. If you need help quitting, ask your health careprovider. Before using a vacuum pump, read the instructions that come with the pump and discuss any questionswith your health care provider. Keep all follow-up visits. This is important. Contact a health care provider if: You feel nauseous. You are vomiting. You get sudden headaches while taking ED medicines. You have any concerns about your sexual health. Get help right away if: You are taking oral or injectable medicines and you have an erection that lasts longer than 4 hours. If your health care provider is unavailable, go to the nearest emergency room for evaluation. An erection that lasts much longer than 4 hours can result in permanent damage to your penis. You have severe pain in your groin or abdomen. You develop redness or severe swelling of your penis. You have redness spreading at your groin or lower abdomen. You are unable to urinate. You experience chest pain or a rapid heartbeat (palpitations) after taking oral medicines. These symptoms may represent a serious problem that is an emergency. Do not wait to see if the symptoms will go away. Get medical help right away. Call your local emergency services (911 in the [place] Do not drive yourself to the hospital. Summary Erectile dysfunction (ED) is the inability to get or keep an erection during sexual intercourse. This condition is diagnosed based on a physical exam, your symptoms, and tests to determine the cause. Treatment varies depending on the cause and may include medicines, hormone therapy, surgery, or a vacuum pump. You may need follow-up visits to make sure that you are using your medicines or devices correctly. Get help right away if you are taking or injecting medicines and you have an erection that lasts longer than 4 hours. This information is not intended to replace advice given to you by your health care provider. Make sure you discuss any questions you have with your health care provider. Document Revised: 11/19/2021 Document Reviewed: 11/19/2021 [employer] Patient Education 2022 [employer]. Follow Up Care 11/25/2022 10:57:18 With:Carlos LIZAMA, SHAYY Hernandes, URO Address: When: Unknown [facility] 04-05-2023 Evaluation note* Encounter Date Diagnosis Assessment Notes Treatment Notes Treatment Clinical Notes Dec, Essential (primary) hypertension (ICD-10 - I10) chronic problem - has followup w cardio in January. Dec, Type 2 diabetes mellitus with hyperglycemia, without long-term current use of insulin (ICD-10 - E11.65) states average glucose is 150-180. will add actose and check cost. [facility] Other 03-22-2023 Hospital Discharge instructions Patient Education 11/25/2022 10:50:26 Testicular Self-Exam Testicular Self-Exam A self-examination of your testicles (testicular self-exam) involves looking at and feeling your testicles for abnormal lumps or swelling. Several things can cause swelling, lumps, or pain in your testicles. Some of these causes are: Injuries. Inflammation. Infection. Buildup of fluids around your testicle (hydrocele). Twisted testicles (testicular torsion). Testicular cancer. Why is it important to do a testicular self-exam? Self-examination of the testicles and the left and right groin areas may be recommended if you are at risk for testicular cancer. Your groin is where your lower abdomen meets your upper thighs. You may be at risk for testicular cancer if you have: An undescended testicle (cryptorchidism). A history of previous testicular cancer. A family history of testicular cancer. How to do a testicular self-exam The testicles are easiest to examine after a warm bath or shower. They are more difficult to examine when you are cold. This is because the muscles attached to the testicles retract and pull them up higher or into the abdomen. A normal testicle is egg-shaped and feels firm. It is smooth and not tender. The spermatic cord canbe felt as a firm, spaghetti-like cord at the back of your testicle. Look and feel for changes Stand and hold your penis away from your body. Look at each testicle to check for lumps or swelling. Roll each testicle between your thumb and forefinger, feeling the entire testicle. Feel for: ?Lumps. ?Swelling. ?Discomfort. Check the groin area between your abdomen and upper thighs on both sides of your body. Look and feel for any swelling or bumps that are tender. These could be enlarged lymph nodes. Contact a health care provider if: You find any bumps or lumps, such as a small, hard, pea-sized lump. You find swelling, pain, or soreness. You see or feel any other changes in your testicles. Summary A self-examination of your testicles (testicular self-exam) involves looking at and feeling your testicles for any changes. Self-examination of the testicles and the left and right groin areas may be recommended if you are at risk for testicular cancer. You should check each of your testicles for lumps, swelling, or discomfort. You should check for swelling or tender bumps in your groin area between your lower abdomen and upper thighs. This information is not intended to replace advice given to you by your health care provider. Make sure you discuss any questions you have with your health care provider. Document Released: 11/29/2001 Document Revised: 12/14/2019 Document Reviewed: 07/19/2017 [employer] Patient Education 2020 [employer]. Follow Up Care 10/13/2022 08:47:51 With:Carlos LIZAMA, SHAYY Hernandes, URO Address: When: Unknown [facility] 01-04-2023 Hospital Discharge instructions Patient Education 09/09/2022 10:39:38 Erectile Dysfunction Erectile Dysfunction Erectile dysfunction (ED) is the inability to get or keep an erection in order to have sexual intercourse. Erectile dysfunction may include: Inability to get an erection. Lack of enough hardness of the erection to allow penetration. Loss of the erection before sex is finished. What are the causes? This condition may be caused by: Certain medicines, such as: ?Pain relievers. ?Antihistamines. ?Antidepressants. ?Blood pressure medicines. ?Water pills (diuretics). ?Ulcer medicines. ?Muscle relaxants. ?Drugs. Excessive drinking. Psychological causes, such as: ?Anxiety. ?Depression. ?Sadness. ?Exhaustion. ?Performance fear. ?Stress. Physical causes, such as: ?Artery problems. This may include diabetes, smoking, liver disease, or atherosclerosis. ?High blood pressure. ?Hormonal problems, such as low testosterone. ?Obesity. ?Nerve problems. This may include back or pelvic injuries, diabetes mellitus, multiple sclerosis, or Parkinson disease. What are the signs or symptoms? Symptoms of this condition include: Inability to get an erection. Lack of enough hardness of the erection to allow penetration. Loss of the erection before sex is finished. Normal erections at some times, but with frequent unsatisfactory episodes. Low sexual satisfaction in either partner due to erection problems. A curved penis occurring with erection. The curve may cause pain or the penis may be too curved to allow for intercourse. Never having nighttime erections. How is this diagnosed? This condition is often diagnosed by: Performing a physical exam to find other diseases or specific problems with the penis. Asking you detailed questions about the problem. Performing blood tests to check for diabetes mellitus or to measure hormone levels. Performing other tests to check for underlying health conditions. Performing an ultrasound exam to check for scarring. Performing a test to check blood flow to the penis. Doing a sleep study at home to measure nighttime erections. How is this treated? This condition may be treated by: Medicine taken by mouth to help you achieve an erection (oral medicine). Hormone replacement therapy to replace low testosterone levels. Medicine that is injected into the penis. Your health care provider may instruct you how to give yourself these injections at home. Vacuum pump. This is a pump with a ring on it. The pump and ring are placed on the penis and used to create pressure that helps the penis become erect. Penile implant surgery. In this procedure, you may receive: ?An inflatable implant. This consists of cylinders, a pump, and a reservoir. The cylinders can be inflated with a fluid that helps to create an erection, and they can be deflated after intercourse. ?A semi-rigid implant. This consists of two silicone rubber rods. The rods provide some rigidity. They are also flexible, so the penis can both curve downward in its normal position and become straight for sexual intercourse. Blood vessel surgery, to improve blood flow to the penis. During this procedure, a blood vessel from a different part of the body is placed into the penis to allow blood to flow around (bypass) damaged or blocked blood vessels. Lifestyle changes, such as exercising more, losing weight, and quitting smoking. Follow these instructions at home: Medicines Take mklm-ofp-axlsehu and prescription medicines only as told by your health care provider. Do not increase the dosage without first discussing it with your health care provider. If you are using self-injections, perform injections as directed by your health care provider. Makesure to avoid any veins that are on the surface of the penis. After giving an injection, apply pressure to the injection site for 5 minutes. General instructions Exercise regularly, as directed by your health care provider. Work with your health care provider to lose weight, if needed. Do not use any products that contain nicotine or tobacco, such as cigarettes and e-cigarettes. If you need help quitting, ask your health care provider. Before using a vacuum pump, read the instructions that come with the pump and discuss any questionswith your health care provider. Keep all follow-up visits as told by your health care provider. This is important. Contact a health care provider if: You feel nauseous. You vomit. Get help right away if: You are taking oral or injectable medicines and you have an erection that lasts longer than 4 hours. If your health care provider is unavailable, go to the nearest emergency room for evaluation. An erection that lasts much longer than 4 hours can result in permanent damage to your penis. You have severe pain in your groin or abdomen. You develop redness or severe swelling of your penis. You have redness spreading up into your groin or lower abdomen. You are unable to urinate. You experience chest pain or a rapid heart beat (palpitations) after taking oral medicines. Summary Erectile dysfunction (ED) is the inability to get or keep an erection during sexual intercourse. This problem can usually be treated successfully. This condition is diagnosed based on a physical exam, your symptoms, and tests to determine the cause. Treatment varies depending on the cause, and may include medicines, hormone therapy, surgery, orvacuum pump. You may need follow-up visits to make sure that you are using your medicines or devices correctly. Get help right away if you are taking or injecting medicines and you have an erection that lasts longer than 4 hours. This information is not intended to replace advice given to you by your health care provider. Make sure you discuss any questions you have with your health care provider. Document Released: 08/20/2001 Document Revised: 08/05/2018 Document Reviewed: 09/08/2017 [employer] Patient Education 2019 [employer]. [facility] 12-14-2022 Hospital Discharge instructions Patient Education 08/19/2022 08:27:16 Erectile Dysfunction Erectile Dysfunction Erectile dysfunction (ED) is the inability to get or keep an erection in order to have sexual intercourse. Erectile dysfunction may include: Inability to get an erection. Lack of enough hardness of the erection to allow penetration. Loss of the erection before sex is finished. What are the causes? This condition may be caused by: Certain medicines, such as: ?Pain relievers. ?Antihistamines. ?Antidepressants. ?Blood pressure medicines. ?Water pills (diuretics). ?Ulcer medicines. ?Muscle relaxants. ?Drugs. Excessive drinking. Psychological causes, such as: ?Anxiety. ?Depression. ?Sadness. ?Exhaustion. ?Performance fear. ?Stress. Physical causes, such as: ?Artery problems. This may include diabetes, smoking, liver disease, or atherosclerosis. ?High blood pressure. ?Hormonal problems, such as low testosterone. ?Obesity. ?Nerve problems. This may include back or pelvic injuries, diabetes mellitus, multiple sclerosis, or Parkinson disease. What are the signs or symptoms? Symptoms of this condition include: Inability to get an erection. Lack of enough hardness of the erection to allow penetration. Loss of the erection before sex is finished. Normal erections at some times, but with frequent unsatisfactory episodes. Low sexual satisfaction in either partner due to erection problems. A curved penis occurring with erection. The curve may cause pain or the penis may be too curved to allow for intercourse. Never having nighttime erections. How is this diagnosed? This condition is often diagnosed by: Performing a physical exam to find other diseases or specific problems with the penis. Asking you detailed questions about the problem. Performing blood tests to check for diabetes mellitus or to measure hormone levels. Performing other tests to check for underlying health conditions. Performing an ultrasound exam to check for scarring. Performing a test to check blood flow to the penis. Doing a sleep study at home to measure nighttime erections. How is this treated? This condition may be treated by: Medicine taken by mouth to help you achieve an erection (oral medicine). Hormone replacement therapy to replace low testosterone levels. Medicine that is injected into the penis. Your health care provider may instruct you how to give yourself these injections at home. Vacuum pump. This is a pump with a ring on it. The pump and ring are placed on the penis and used to create pressure that helps the penis become erect. Penile implant surgery. In this procedure, you may receive: ?An inflatable implant. This consists of cylinders, a pump, and a reservoir. The cylinders can be inflated with a fluid that helps to create an erection, and they can be deflated after intercourse. ?A semi-rigid implant. This consists of two silicone rubber rods. The rods provide some rigidity. They are also flexible, so the penis can both curve downward in its normal position and become straight for sexual intercourse. Blood vessel surgery, to improve blood flow to the penis. During this procedure, a blood vessel from a different part of the body is placed into the penis to allow blood to flow around (bypass) damaged or blocked blood vessels. Lifestyle changes, such as exercising more, losing weight, and quitting smoking. Follow these instructions at home: Medicines Take vjbn-jqd-inbbnzb and prescription medicines only as told by your health care provider. Do not increase the dosage without first discussing it with your health care provider. If you are using self-injections, perform injections as directed by your health care provider. Makesure to avoid any veins that are on the surface of the penis. After giving an injection, apply pressure to the injection site for 5 minutes. General instructions Exercise regularly, as directed by your health care provider. Work with your health care provider to lose weight, if needed. Do not use any products that contain nicotine or tobacco, such as cigarettes and e-cigarettes. If you need help quitting, ask your health care provider. Before using a vacuum pump, read the instructions that come with the pump and discuss any questionswith your health care provider. Keep all follow-up visits as told by your health care provider. This is important. Contact a health care provider if: You feel nauseous. You vomit. Get help right away if: You are taking oral or injectable medicines and you have an erection that lasts longer than 4 hours. If your health care provider is unavailable, go to the nearest emergency room for evaluation. An erection that lasts much longer than 4 hours can result in permanent damage to your penis. You have severe pain in your groin or abdomen. You develop redness or severe swelling of your penis. You have redness spreading up into your groin or lower abdomen. You are unable to urinate. You experience chest pain or a rapid heart beat (palpitations) after taking oral medicines. Summary Erectile dysfunction (ED) is the inability to get or keep an erection during sexual intercourse. This problem can usually be treated successfully. This condition is diagnosed based on a physical exam, your symptoms, and tests to determine the cause. Treatment varies depending on the cause, and may include medicines, hormone therapy, surgery, orvacuum pump. You may need follow-up visits to make sure that you are using your medicines or devices correctly. Get help right away if you are taking or injecting medicines and you have an erection that lasts longer than 4 hours. This information is not intended to replace advice given to you by your health care provider. Make sure you discuss any questions you have with your health care provider. Document Released: 08/20/2001 Document Revised: 08/05/2018 Document Reviewed: 09/08/2017 [employer] Patient Education 2020 [employer]. Follow Up Care 08/10/2022 15:26:30 With:Carlos LIZAMA, Lety Scott URMalaika, URO Address: When:3 months Comments:W/ PSA/testosterone/ & hemaglobin [facility] 09-21-2022 Hospital Discharge instructions Follow Up Care 05/27/2022 09:36:06 With:Carlos LIZAMA, SHAYY Hernandes, URO Address: When: Unknown [facility] evaluation + Plan note Future Appointments Appointment Date:01/06/2022 08:00:00 AM Scheduled Provider: Location:[facility] Appointment Type:URO Nurse Visit Appointment Date:05/12/2022 08:45:00 AM Scheduled Provider:Venkat Proctor Jr., MD Location:[facility] Appointment Type:URO Office Visit [facility] evaluation + Plan note Future Appointments Appointment Date:02/03/2022 08:30:00 AM Scheduled Provider: Location:[facility] Appointment Type:URO Nurse Visit Appointment Date:05/12/2022 08:45:00 AM Scheduled Provider:Venkat Proctor Jr., MD Location:[facility] Appointment Type:URO Office Visit [facility] evaluation + Plan note Future Appointments Appointment Date:03/03/2022 08:00:00 AM Scheduled Provider: Location:[facility] Appointment Type:URO Nurse Visit Appointment Date:05/12/2022 08:45:00 AM Scheduled Provider:Venkat Proctor Jr., MD Location:[facility] Appointment Type:URO Office Visit [facility] evaluation + Plan note Future Appointments Appointment Date:03/31/2022 08:00:00 AM Scheduled Provider: Location:[facility] Appointment Type:URO Nurse Visit Appointment Date:04/28/2022 08:00:00 AM Scheduled Provider: Location:[facility] Appointment Type:URO Nurse Visit Appointment Date:05/26/2022 08:15:00 AM Scheduled Provider:Venkat Proctro Jr., MD Location:[facility] Appointment Type:URO Office Visit [facility] evaluation + Plan note Future Appointments Appointment Date:04/28/2022 08:00:00 AM Scheduled Provider: Location:[facility] Appointment Type:URO Nurse Visit Appointment Date:05/26/2022 08:15:00 AM Scheduled Provider:Venkat Proctor Jr., MD Location:[facility] Appointment Type:URO Office Visit [facility] evaluation + Plan note Future Appointments Appointment Date:06/24/2022 08:00:00 AM Scheduled Provider: Location:[facility] Appointment Type:URO Nurse Visit Appointment Date:07/29/2022 08:00:00 AM Scheduled Provider:Lety Gonzalez MD Location:[facility] Appointment Type:URO Office Visit [facility] evaluation + Plan note Future Appointments Appointment Date:07/22/2022 08:00:00 AM Scheduled Provider: Location:[facility] Appointment Type:URO Nurse Visit Appointment Date:08/05/2022 08:00:00 AM Scheduled Provider:Lety Gonzalez MD Location:[facility] Appointment Type:URO Office Visit [facility] evaluation + Plan note Future Appointments Appointment Date:09/02/2022 08:30:00 AM Scheduled Provider: Location:[facility] Appointment Type:URO Nurse Visit Diagnostic Tests Pending * PSA Total 08/19/22 * Testosterone Level Total 08/19/22 [facility] evaluation + Plan note Future Appointments Appointment Date:09/16/2022 08:15:00 AM Scheduled Provider: Location:[facility] Appointment Type:URO Nurse Visit [facility] evaluation + Plan note Future Appointments Appointment Date:09/30/2022 08:00:00 AM Scheduled Provider: Location:[facility] Appointment Type:URO Nurse Visit [facility] evaluation + Plan note Future Appointments Appointment Date:10/13/2022 08:30:00 AM Scheduled Provider: Location:[facility] Appointment Type:URO Nurse Visit Appointment Date:10/28/2022 08:00:00 AM Scheduled Provider: Location:[facility] Appointment Type:URO Nurse Visit [facility] evaluation + Plan note Future Appointments Appointment Date:10/28/2022 08:00:00 AM Scheduled Provider: Location:[facility] Appointment Type:URO Nurse Visit Appointment Date:11/11/2022 08:00:00 AM Scheduled Provider: Location:[facility] Appointment Type:URO Nurse Visit Appointment Date:11/25/2022 10:15:00 AM Scheduled Provider:Lety Gonzalez MD Location:[facility] Appointment Type:URO Office Visit [facility] evaluation + Plan note Future Appointments Appointment Date:11/11/2022 08:00:00 AM Scheduled Provider: Location:[facility] Appointment Type:URO Nurse Visit Appointment Date:11/25/2022 10:15:00 AM Scheduled Provider:Lety Gonzalez MD Location:[facility] Appointment Type:URO Office Visit [facility] evaluation + Plan note Future Appointments Appointment Date:11/18/2022 08:00:00 AM Scheduled Provider: Location:[facility] Appointment Type:URO Nurse Visit Appointment Date:11/25/2022 10:15:00 AM Scheduled Provider:Lety Gonzalez MD Location:[facility] Appointment Type:URO Office Visit Diagnostic Tests Pending * CBC w/ Auto Diff 11/11/22 * Testosterone Level Total 11/11/22 [facility] evaluation + Plan note Future Appointments Appointment Date:11/25/2022 10:15:00 AM Scheduled Provider:Lety Gonzalez MD Location:[facility] Appointment Type:URO Office Visit [facility] evaluation + Plan note Future Appointments Appointment Date:11/25/2022 10:15:00 AM Scheduled Provider:Lety Gonzalez MD Location:[facility] Appointment Type:URO Office Visit Diagnostic Tests Pending * Testosterone Level Total [facility] Appointment Date:12/09/2022 08:00:00 AM Scheduled Provider: Location:[facility] Appointment Type:URO Nurse Visit Appointment Date:03/03/2023 09:45:00 AM Scheduled Provider:Lety Gonzalez MD Location:[facility] Appointment Type:URO Office Visit Diagnostic Tests Pending * Testosterone Level Total 11/25/22 * PSA Total 11/25/22 * Hemoglobin 11/25/22 [facility] evaluation + Plan note Future Appointments Appointment Date:12/23/2022 08:00:00 AM Scheduled Provider: Location:[facility] Appointment Type:URO Nurse Visit Appointment Date:03/03/2023 09:45:00 AM Scheduled Provider:Lety Gonzalez MD Location:[facility] Appointment Type:URO Office Visit [facility] evaluation + Plan note Future Appointments Appointment Date:01/06/2023 08:00:00 AM Scheduled Provider: Location:[facility] Appointment Type:URO Nurse Visit Appointment Date:03/03/2023 09:45:00 AM Scheduled Provider:Lety Gonzalez MD Location:[facility] Appointment Type:URO Office Visit [facility] Evaluation + Plan note Future Appointments Appointment Date:01/19/2023 08:30:00 AM Scheduled Provider: Location:[facility] Appointment Type:URO Nurse Visit Appointment Date:03/03/2023 09:45:00 AM Scheduled Provider:Lety Gonzalez MD Location:[facility] Appointment Type:URO Office Visit [facility] evaluation + Plan note Future Appointments Appointment Date:02/17/2023 08:00:00 AM Scheduled Provider: Location:[facility] Appointment Type:URO Nurse Visit Appointment Date:03/03/2023 09:45:00 AM Scheduled Provider:Lety Gonzalez MD Location:[facility] Appointment Type:URO Office Visit [facility] evaluation + Plan note Future Appointments Appointment Date:02/24/2023 08:00:00 AM Scheduled Provider: Location:[facility] Appointment Type:URO Nurse Visit Appointment Date:03/03/2023 09:45:00 AM Scheduled Provider:Lety Gonzalez MD Location:[facility] Appointment Type:URO Office Visit [facility] evaluation + Plan note Future Appointments Appointment Date:03/03/2023 09:45:00 AM Scheduled Provider:Lety Gonzalez MD Location:[facility] Appointment Type:URO Office Visit [facility] evaluation + Plan note Future Appointments Appointment Date:03/03/2023 09:45:00 AM Scheduled Provider:Lety Gonzalez MD Location:[facility] Appointment Type:URO Office Visit Diagnostic Tests Pending * Testosterone Level Total 02[facility]24[facility]23 [facility] App[facility]ments Appointment Date:03/17/2023 08:00:00 AM Scheduled Provider: Location:[facility] Appointment Type:URO Nurse Visit Appointment Date:06/09/2023 08:45:00 AM Scheduled Provider:Lety Gonzalez MD Location:[facility] Appointment Type:URO Office Visit Diagnostic Tests Pending * PSA Free & Total 03/03/23 [facility] evaluation + Plan note Future Appointments Appointment Date:03/31/2023 08:00:00 AM Scheduled Provider: Location:[facility] Appointment Type:URO Nurse Visit Appointment Date:06/09/2023 08:45:00 AM Scheduled Provider:Lety Gonzalez MD Location:[facility] Appointment Type:URO Office Visit [facility] evaluation + Plan note Future Appointments Appointment Date:04/14/2023 08:00:00 AM Scheduled Provider: Location:[facility] Appointment Type:URO Nurse Visit Appointment Date:06/09/2023 08:45:00 AM Scheduled Provider:Lety Gonzalez MD Location:[facility] Appointment Type:URO Office Visit [facility] evaluation + Plan note Future Appointments Appointment Date:04/28/2023 08:30:00 AM Scheduled Provider: Location:[facility] Appointment Type:URO Nurse Visit Appointment Date:05/12/2023 08:00:00 AM Scheduled Provider: Location:[facility] Appointment Type:URO Nurse Visit Appointment Date:05/26/2023 08:00:00 AM Scheduled Provider: Location:[facility] Appointment Type:URO Nurse Visit Appointment Date:06/09/2023 08:45:00 AM Scheduled Provider:Lety Gonzalez MD Location:[facility] Appointment Type:URO Office Visit [facility] evaluation + Plan note Future Appointments Appointment Date:05/12/2023 08:00:00 AM Scheduled Provider: Location:[facility] Appointment Type:URO Nurse Visit Appointment Date:05/26/2023 08:00:00 AM Scheduled Provider: Location:[facility] Appointment Type:URO Nurse Visit Appointment Date:06/09/2023 08:45:00 AM Scheduled Provider:Lety Gonzalez MD Location:[facility] Appointment Type:URO Office Visit Diagnostic Tests Pending * Hemoglobin and Hematocrit 04/28/23 * PSA Free & Total 04/28/23 * Testosterone Level Total 04/28/23 [facility] evaluation + Plan note Future Appointments Appointment Date:05/26/2023 08:00:00 AM Scheduled Provider: Location:[facility] Appointment Type:URO Nurse Visit Appointment Date:06/02/2023 08:00:00 AM Scheduled Provider: Location:[facility] Appointment Type:URO Nurse Visit Appointment Date:06/09/2023 08:45:00 AM Scheduled Provider:Lety Gonzalez MD Location:[facility] Appointment Type:URO Office Visit [facility] evaluation + Plan note Future Appointments Appointment Date:06/02/2023 08:00:00 AM Scheduled Provider: Location:[facility] Appointment Type:URO Nurse Visit Appointment Date:06/09/2023 08:45:00 AM Scheduled Provider:Lety Gonzalez MD Location:[facility] Appointment Type:URO Office Visit [facility] evaluation + Plan note Future Appointments Appointment Date:07/07/2023 08:00:00 AM Scheduled Provider: Location:[facility] Appointment Type:URO Nurse Visit Appointment Date:07/21/2023 08:00:00 AM Scheduled Provider: Location:[facility] Appointment Type:URO Nurse Visit Appointment Date:08/04/2023 08:00:00 AM Scheduled Provider: Location:[facility] Appointment Type:URO Nurse Visit Appointment Date:09/01/2023 08:00:00 AM Scheduled Provider: Location:[facility] Appointment Type:URO Nurse Visit Appointment Date:09/15/2023 08:00:00 AM Scheduled Provider:Lety Gonzalez MD Location:[facility] Appointment Type:URO Office Visit [facility] evaluation + Plan note Future Appointments Appointment Date:07/21/2023 08:00:00 AM Scheduled Provider: Location:[facility] Appointment Type:URO Nurse Visit Appointment Date:08/04/2023 08:00:00 AM Scheduled Provider: Location:[facility] Appointment Type:URO Nurse Visit Appointment Date:09/01/2023 08:00:00 AM Scheduled Provider: Location:[facility] Appointment Type:URO Nurse Visit Appointment Date:09/15/2023 08:00:00 AM Scheduled Provider:Lety Gonzalez MD Location:[facility] Appointment Type:URO Office Visit [facility] evaluation + Plan note Future Appointments Appointment Date:08/04/2023 08:00:00 AM Scheduled Provider: Location:[facility] Appointment Type:URO Nurse Visit Appointment Date:09/01/2023 08:00:00 AM Scheduled Provider: Location:[facility] Appointment Type:URO Nurse Visit Appointment Date:09/15/2023 08:00:00 AM Scheduled Provider:Lety Gonzalez MD Location:[facility] Appointment Type:URO Office Visit [facility] evaluation + Plan note Future Appointments Appointment Date:09/01/2023 08:00:00 AM Scheduled Provider: Location:[facility] Appointment Type:URO Nurse Visit Appointment Date:09/15/2023 08:00:00 AM Scheduled Provider:Lety Gonzalez MD Location:[facility] Appointment Type:URO Office Visit [facility] evaluation + Plan note Future Appointments Appointment Date:09/15/2023 08:00:00 AM Scheduled Provider:Lety Gonzalez MD Location:[facility] Appointment Type:URO Office Visit [facility] evaluation + Plan note Future Appointments Appointment Date:09/15/2023 08:00:00 AM Scheduled Provider:Lety Gonzalez MD Location:[facility] Appointment Type:URO Office Visit Diagnostic Tests Pending * Testosterone Level Total 09[facility]08[facility]23 [facility] App[facility]ments Appointment Date:09/29/2023 08:00:00 AM Scheduled Provider: Location:[facility] Appointment Type:URO Nurse Visit Appointment Date:03/01/2024 10:00:00 AM Scheduled Provider:Lety Gonzalez MD Location:[facility] Appointment Type:URO Office Visit Future Scheduled Tests Laboratory* PSA Screen, Total 12/15/23 * Hematocrit 09/15/23 * Testosterone Level Total 12/15/23 [facility] evaluation + Plan note Future Appointments Appointment Date:03/01/2024 10:00:00 AM Scheduled Provider:Lety Gonzalez MD Location:[facility] Appointment Type:URO Office Visit Future Scheduled Tests Laboratory* PSA Screen, Total 12/15/23 * Hematocrit 09/15/23 * Testosterone Level Total 12/15/23 [facility] evaluation + Plan note Future Appointments Appointment Date:11/03/2023 08:00:00 AM Scheduled Provider: Location:[facility] Appointment Type:URO Nurse Visit Appointment Date:03/01/2024 10:00:00 AM Scheduled Provider:Lety Gonzalez MD Location:[facility] Appointment Type:URO Office Visit Future Scheduled Tests Laboratory* PSA Screen, Total 12/15/23 * Hematocrit 09/15/23 * Testosterone Level Total 12/15/23 [facility] evaluation + Plan note Future Appointments Appointment Date:11/16/2023 09:00:00 AM Scheduled Provider: Location:[facility] Appointment Type:URO Nurse Visit Appointment Date:03/01/2024 10:00:00 AM Scheduled Provider:Lety Gonzalez MD Location:[facility] Appointment Type:URO Office Visit Future Scheduled Tests Laboratory* PSA Screen, Total 12/15/23 * Hematocrit 09/15/23 * Testosterone Level Total 12/15/23 [facility] evaluation + Plan note Future Appointments Appointment Date:12/24/2023 08:00:00 AM Scheduled Provider: Location:[facility] Appointment Type:URO Nurse Visit Appointment Date:03/01/2024 10:00:00 AM Scheduled Provider:Lety Gonzalez MD Location:[facility] Appointment Type:URO Office Visit Future Scheduled Tests Laboratory* PSA Screen, Total 12/15/23 * Hematocrit 09/15/23 * Testosterone Level Total 12/15/23 [facility] evaluation + Plan note Future Appointments Appointment Date:12/14/2023 08:30:00 AM Scheduled Provider: Location:[facility] Appointment Type:URO Nurse Visit Appointment Date:03/01/2024 10:00:00 AM Scheduled Provider:Lety Gonzalez MD Location:[facility] Appointment Type:URO Office Visit Future Scheduled Tests Laboratory* PSA Screen, Total 12/15/23 * Hematocrit 09/15/23 * Testosterone Level Total 12/15/23 [facility] evaluation noteNo [facility] Other Evaluation note* Diagnosis Onset Date Resolution Status CAD (coronary artery disease) acute Diabetes acute GERD (gastroesophageal reflux disease) acute Hypertension acute Screening for colon cancer a cute Screening PSA (prostate specific antigen) acute [facility] Work Phone: History general Narrative - Reported* Type Description Date Medical History 2nd opinion for vein surgery Medical History HTN Medical History DM Medical History CAD with prior [place] Medical History CVI Medical History Depression Medical History Edema leg Medical History Diabetic polyneuropa thy associated with other specified diabetes mellitus Surgical History toe surgery/ right foot great t oe Surgical History tonsillectomy Surgical History heart stent 2 Hospitalization History tonsillectomy Hospitalization History pneumonia [facility] Other Hospital course Narrative No data available for this section [facility] Hospital Discharge instructions No data available for this section [facility] Hospital Discharge instructionsAmbulatory Orders* Referral to Gastroenterology Time Frame: 11/30/23, Location: None [facility] Work Phone: Progress note No data available for this section [facility] Summary Purpose Family History No Family History Records FoundUnknown Family Member Name Dates Details Family history of acute myoc ardial infarction: Father(V17.3, Z82.49) Status:Active No pertinent family history: Mother, Sister, Brother(V49.89, Z78.9) Status:Active Unknown Family Member Name Dates Details Family history of acute myoc ardial infarction: Father(V17.3, Z82.49) Status:Active No pertinent family history: Mother, Sister, Brother(V49.89, Z78.9) Status:Active Unknown Family Member Name Dates Details Family history of acute myoc ardial infarction: Father(V17.3, Z82.49) Status:Active No pertinent family history: Mother, Sister, Brother(V49.89, Z78.9) Status:Active Unknown Family Member Name Dates Details No pertinent family history: Mother, Sister, Brother(V49.89, Z78.9) Status:Active Family history of acute myoc ardial infarction: Father(V17.3, Z82.49) Status:Active Unknown Family Member Name Dates Details Family history of acute myoc ardial infarction: Father(V17.3, Z82.49) Status:Active No pertinent family history: Mother, Sister, Brother(V49.89, Z78.9) Status:Active Relationship Condition Age at Onset Recorded Date/T evangelina Not Specified No pertinent family history Unknown father Unknown Heart disease Unknown Advance Directives No Advanced Directives Records Found Advance Directive Response Recorded Date/ Time Advance Directives No May 10:55am Chief Complaint * JOHNATHAN AMBROSIO is being seen for an annual follow-up of overdue. * 62-year-old gentleman who returns for follow-up and is doing well from a cardiovascular standpoint.We have not seen him for approximately year and a half. He has history of known ASHD currently asymptomatic, with remote PCI's of the circumflex and diagonal branch last imaged in [address] Nagy, details of his angiogram are reviewed; with preserved LV function * He has underlying diabetes, hyperlipidemia, morbid obesity and remains on appropriate tolerable guideline directed medical therapies * We counseled him on dietary discretion, weight loss and exercise, abstention from carbohydrates, hecan follow-up again in 1 year with nurse practitioner. Chief Complaint and Reason for Visit Chief Complaint Amb Documentation Check Up Reason for Visit CAD (coronary artery disease) Diabetes GERD (gastroesophageal reflux disease) Hypertension Screening for colon cancer Screening PSA (prostate specific antigen) Additional Source Comments (unrecognized sect ion and content) No Status Records FoundNo Status Records FoundNo Status Records FoundNo Status Records Found INFORMATION SOURCE (unrecogn ized section and content) DATE CREATED AUTHOR 08/14/2018 [facility] DATE CREATED AUTHOR AUTHOR'S ORGANIZ ATION 12/24/2022 [facility] DATE CREATED AUTHOR AUTHOR'S ORGANIZ ATION 06/30/2023 [facility] DATE CREATED AUTHOR AUTHOR'S ORGANIZ ATION 12/01/2023 [facility] Care Team (unrecognized sect ion and content) Team Status: Active Member Role Status Dates Dasia Jeffrey MD Primary Care Provider Active Team Status: Active Member Role Status Dates Dasia Jeffrey MD Primary Care Provider Active Start: November 25, 2023 [facility] [place] Attending Provider Active Start : November 25, 2023 Team Status: Inactive Member Role Status Dates Dasia Jeffrey MD Primary Care Provide r, Attending Provider Active Start: November 30, 2023 End: November 30, 2023 REASON FOR VISIT (unrecogniz ed section and content) medication discussion- insur ance won't covermessagerefillsSteglatro?BS concerns/medication [id number] Goals (unrecognized section and content) Goals may be documented in a n alternate section FOR RECORDS PERTAINING TO PATIENTS WHO ARE OR HAVE BEEN ENROLLED IN A CHEMICAL DEPENDENCY/SUBSTANCEABUSE PROGRAM, SOME INFORMATION MAY BE OMITTED. This clinical summary was aggregated from multiple sources. Caution should be exercised in using it in the provision of clinical care. This summary normalizes information from multiple sources, and as a consequence, information in this document may materially change the coding, format and clinical context of patient data. In addition, data may be omitted in some cases. CLINICAL DECISIONS SHOULD BE BASED ON THE PRIMARY CLINICAL RECORDS. [facility] [employer] [facility]. provides no warranty or guarantee of the accuracy or completeness of information in this document.
[2023-12-01 07:10] LABS: Basophils Absolute Auto 0.1 10^3/uL (0.0-0.1); Basophils Percent Auto 0.8 % (0.2-2.0); Eosinophils Absolute Auto 0.5 10^3/uL (0.0-0.7); Eosinophils Percent Auto 5.6 % (0.9-7.0); Hematocrit 47.7 % (42.0-54.0); Hemoglobin 15.7 g/dL (14.0-18.0); Immature Granulocytes Abs Auto 0.02 10^3/uL (0.00-0.03); Immature Granulocytes Pct Auto 0.2 % (0.0-0.5); Lymphocytes Absolute Auto 1.6 10^3/uL (1.2-3.8); Lymphocytes Percent Auto 19.2 % (20.5-60.0); Mean Corpuscular HGB Conc 32.9 g/dL (29.9-35.2); Mean Corpuscular Hemoglobin 26.2 pg (25.9-34.0); Mean Corpuscular Volume 79.6 fL (80.0-94.0); Mean Platelet Volume 11.1 fL (9.5-13.5); Monocytes Absolute Auto 0.7 10^3/uL (0.3-0.8); Monocytes Percent Auto 7.6 % (1.7-12.0); Neutrophils Absolute Auto 5.7 10^3/uL (1.4-6.5); Neutrophils Percent Auto 66.6 % (43.0-75.0); Platelet Count 216 10^3/uL (150-450); Red Blood Count 5.99 10^6/uL (4.70-6.10); Red Cell Distribution Width 15.8 % (11.0-15.0); White Blood Count 8.5 10^3/uL (4.0-11.0)
[2023-12-01 07:31] LABS: Alanine Aminotransferase 24 U/L (16-63); Albumin Globulin Ratio 1.1; Albumin Level 3.7 g/dL (3.4-5.0); Alkaline Phosphatase 67 U/L (46-116); Anion Gap 12.6; Aspartate Amino Transferase 28 U/L (15-37); BUN Creatinine Ratio 19.3; Bilirubin Total 0.9 mg/dL (0.2-1.0); Calcium 8.7 mg/dL (8.5-10.1); Carbon Dioxide 28.9 mmol/L (21.0-32.0); Chloride 101 mmol/L (98-107); Chol HDL Ratio 3.3; Cholesterol 120 mg/dL (<=200); Estimated GFR (African America >60 (>=60); Estimated GFR (Non-African Ame >60 (>=60); Globulin 3.5 g/dL; Glucose 152 mg/dL (74-106); HDL Cholesterol 36 mg/dL (40-60); Potassium 4.5 mmol/L (3.5-5.1); Sodium 138 mmol/L (136-145); Total Protein 7.2 g/dL (6.4-8.2); Triglycerides 76 mg/dL (<=150); VLDL CHOLESTEROL 15.2 mg/dL
[2023-12-01 09:22] LABS: Prostate Specific Antigen Scrn 1.21 ng/mL (<=4.00)
[2023-12-01 09:27] LABS: Estimated Average Glucose 209 mg/dL; Glycohemoglobin A1C 8.9 % (4.5-6.2)
== END 2023-12-01 06:29 | disposition home or self-care (01) ==
LOC: LAB 06:29
PROVIDERS: PCP Family Medicine; Visit Provider Family Medicine
DX: E11.9 Type 2 diabetes mellitus without complications (principal); I25.10 Atherosclerotic heart disease of native coronary artery without angina pectoris; I10 Essential (primary) hypertension; Z12.5 Encounter for screening for malignant neoplasm of prostate
CPT/HCPCS: 36415; 80053; 80061; 83036; 85025; G0103

== ENCOUNTER 2024-05-17 08:27 | Outpatient (OUT) | payer OTHER, SELFPAY ==
--- NOTE | 2024-05-17 08:32 | VEIN_ITS ---
[facility] [place] [id number] Patient Name: JOHNATHAN AMBROSIO MRN: [id number] date: 1960 Sex: M Assigned Patient Location: Current Patient Location: Accession/Order Number: [id number] Exam Date: 05/17/2024 08:33 Report Date: 05/17/2024 11:02 At the request of: GEORGE CANCINO Procedure: VC SEGMENTAL PRESSURES EXAM: VC SEGMENTAL PRESSURES HISTORY: I73.9 PVD Indication: COMPARISON: None. FINDINGS: Segmental pressures presented as follows (right, left) in mmHg. Brachial: 135, 134 Upper thigh: 160, 200 Lower thigh: 34, 150 Calf: 135, 129 DPA: 97, 107 [employer]CHANT: 102, 115 1st Toe: 113, 123 DUSTIN: 0.76, 0.85 TBI: 0.84, 0.91 The ABIs suggest mild bilateral arterial occlusive disease The TBI's are normal PVR waveforms: Right leg: Thigh: Normal Above knee: Normal Below knee: Normal Right ankle: Mild peripheral arterial disease Metatarsal: Mild peripheral arterial disease Left leg: Thigh: Normal Above knee: Normal Below knee: Normal Right ankle: Mild peripheral arterial disease Metatarsal: Mild peripheral arterial disease VEIN/VC SEGMENTAL PRESSURES IMPRESSION: 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
== END 2024-05-17 08:28 | disposition home or self-care (01) ==
LOC: VC 08:27
PROVIDERS: PCP Family Medicine
DX: I73.9 Peripheral vascular disease, unspecified (principal)
CPT/HCPCS: 93923

== ENCOUNTER 2024-07-23 18:20 | Emergency (ER) | payer OTHER, SELFPAY ==
[2024-07-23] VITALS (48 sets, daily range): BP systolic 141–175; BP diastolic 94–115; PULSE 74–211; TEMP 36.4; O2SAT 83–99; BMI 49.3
--- OUTSIDE RECORDS SUMMARY | 2024-07-23 18:29 | XMS_ITS | CCD ---
Author Organization [facility] Care Team Providers Care Instructional Support Assistant Name Role Phone UNKNOWN, PROVIDER Unavailable Unavailable LUIS JEFFREY Unavailable Unavailable LUIS JEFFREY Primary Care Physician Unavailable Unavailable Luis Jeffrey Unavailable Luis Jeffrey Unavailable DR LUIS JEFFREY Admitting Unavailable WOJCIECH, DR LUSI Blakely Attending Unavailable WOJCIECH, DR LUIS Blakely Consulting Unavailable WOJCIECH, DR LUIS Blakely Primary Care Unavailable JEFFREY, DR LUIS Blakely Admitting Unavailable JEFFREY, DR LUIS Blakely Attending Unavailable JEFFREY, DR LUIS Blakely Consulting Unavailable JEFFREY, DR LUIS Blakely Primary Care Unavailable JEFFREY, DR LUIS Blakely Primary Care Unavailable LUE .LETY Admitting Unavailable LUE ., LETY Borja Attending Unavailable LUE .LETY Consulting Unavailable WOJCIECH, DR LUIS Blakely Primary Care Unavailable LUE ., LETY Borja Admitting Unavailable LUE ., LETY Borja Attending Unavailable LUE .LETY Consulting Unavailable WOJCIECH, DR LUIS Blakely Admitting Unavailable JEFFREY, DR LUIS Blakely Attending Unavailable JEFFREY, DR LUIS Blakely Consulting Unavailable JEFFREY, DR LUIS Blakely Primary Care Unavailable MARKER ., DR EDDY Admitting Unavailable MARKER ., DR EDDY Attending Unavailable MARKER ., DR EDDY Consulting Unavailable WOJCIECH, DR LUIS Blakely Primary Care Unavailable CARLY PRESCOTT Consulting Unavailable GILDARDO .DR WILLIAMSON Consulting Unavailable WOJCIECH, DR LUIS Blakely Primary Care Unavailable SHAIKH Aden BRICEÑO Admitting Unavailable SHAIKH Aden BRICEÑO Attending Unavailable CORINNE .QUENTIN Consulting UnavailTEVIN Vigil Consulting Unavailable SHAIKH Aden BRICEÑO Consulting Unavailable NAM CANO Admitting Unavailable WOJCIECH, DR LUIS Blakely Primary Care Unavailable NAM CANO Attending Unavailable Gabino Deluca Attending Unavailable Gabino Deluca Attending Unavailable Gabino Deluca Referring Unavailable Dr. Luis Jeffrey Primary Care Unav ailable WOJCIECH, LUIS Attending Unavailable LUIS JEFFREY Admitting Unavailable Lue, Lety M. Attending Unavailable Lue, Lety M. Admitting Unavailable JIMMY, GLADIS Blakely Attending Unavailab le Lue, Lety M. Attending Unavailable Lue, Lety M. Attending Unavailable Lue, Lety M. Attending Unavailable Lue, Lety M. Attending Unavailable Lue, Lety M. Attending Unavailable Lue, Lety M. Attending Unavailable Lue, Lety M. Attending Unavailable Lue, Lety M. Attending Unavailable Lue, Lety M. Attending Unavailable Lue, Lety M. Attending Unavailable Lue, Lety M. Attending Unavailable JIMMY, GLADIS Blakely Attending Unavailab le JIMMY, GLADIS Blakely Attending Unavailab le JIMMY, GLADIS Blakely Attending Unavailab le JIMMY, GLADIS Blakely Attending Unavailab le Lue, Lety M. Attending Unavailable Lue, Lety M. Attending Unavailable Lue, Lety M. Attending Unavailable Lue, Lety M. Attending Unavailable Lue, Lety M. Admitting Unavailable LUIS JEFFREY Admitting Unavailable LUIS JEFFREY Attending Unavailable Lue, Lety M. Attending Unavailable Lue, Lety M. Admitting Unavailable Lue, Lety M. Attending Unavailable JIMMY, GLADIS Blakely Attending Unavailab le Lue, Lety M. Attending Unavailable Lue, Lety M. Attending Unavailable Lue, Lety M. Attending Unavailable Lue, Lety M. Attending Unavailable Lue, Lety M. Attending Unavailable Lue, Elty M. Attending Unavailable Lue, Lety M. Attending Unavailable Luis Jeffrey MD Primary Care Provider Lue, Lety M. Attending Unavailable Lue, Lety M. Attending Unavailable Lue, Lety M. Attending Unavailable Lue, Lety M. Attending Unavailable Lue, Lety M. Attending Unavailable Lue, Ltey M. Attending Unavailable Lue, Lety M. Attending Unavailable Lue, Lety M. Attending Unavailable Lue, Lety M. Attending Unavailable Lue, Lety M. Attending Unavailable Lue, Lety M. Attending Unavailable Lue, Lety M. Attending Unavailable Lety Gonzalez Attending Unavailable Lety Gonzalez Attending Unavailable Lety Gonzalez Attending Unavailable RASHID SCHMIDTS Krzysztof Attending Unavailable JANETTE SCHMIDTOLAS Krzysztof Attending Unavailable BROWNJANETTEGRAY A Attending Unavailable BROWN, GRAY A Attending Unavailable BROWN, GRAY A Attending Unavailable BROWN, GRAY A Attending Unavailable BROWN, GRAY A Attending Unavailable BROWN, GRAY A Attending Unavailable BROWN, GRAY A Attending Unavailable BROWN GRAY A Attending Unavailable Allergies Allergy Classification Reported Allergen(s) Allergy Type Date of Onset Reaction(s) Facility [facility] (3 sources) metFORMIN; Translations: [metformin] Drug Allergy Stomach cramps (finding), Diarrhea (finding) [facility] (20 sources) metFORMIN; Translations: [metformin] Drug Allergy 5 Stomach cramps (finding), Diarrhea (finding), Diarrhea, GI intolerance [facility] (20 sources) Vancomycin Drug Allergy 4 [facility] (1 source) metFORMIN Drug Allergy [facility] (1 source) Vancomycin Drug Allergy 8 [facility] (5 sources) Allergies Reconciled Propensity to adverse reactions 1 Unknown [employer] Other (5 sources) patient allergy list reviewed by nurse or physicia Propensity to adverse reactions 9 Comment:Done [employer] Other Medications Current Medications Medication Drug Class(es) Dates Sig (Normalized) Sig (Original) amLODIPine 5 mg oral tablet (20 sources) Dihydropyridine Calcium Channel Donovan Start: 05-15-2019 End: 02-24-2024 amLODIPine (Norvasc) 5 MG tablet Daily 02/24/2024 Active ascorbic acid 250 mg oral tablet (3 sources) Vitamin C Start: 07-03-2021 take 1 mg by mouth once daily Vitamin C 250 mg oral tablet mg tab(s), Oral, Daily, Refills(s) 0 Start Date: 07/03/21 Status: Ordered aspirin 81 mg chewable tablet (20 sources) Platelet Aggregation Inhibitor, Nonsteroidal Anti-inflammatory Drug Start: 02-24-2024 take 162 mg by mouth once daily Aspirin Active 162 MG PO Daily 180 February 24, 2024 4:26pm Start: 02-24-2024 aspirin 81 MG chewable tablet Daily 02/24/2024 Active Start: 05-13-2019 End: 02-24-2024 take 162 mg by mouth once daily Aspirin Discontinued 1 62 MG PO Daily May 13, 2019 12:00am February 24, 2024 4:28pm take 2 tablets by [facility] every twenty-four hours Aspirin 81 MG 2 tablets Orally Once a day Active take 2 tablets by [facility] once daily Aspirin EC Low Dose 81 MG Oral Tablet Delayed Release TAKE 2 TABLET Daily Quantity: 90 Refills: 3 Ordered: 22-Dec-2022 Gbaino Deluca DO Active atorvastatin (20 sources) HMG-CoA Reductase Inhibitor Start: 06-09-2024 take 1 tablet by mouth once daily Atorvastatin Active 0 .ROUTE .COMPLEX 90 June 09, 2024 8:34am TAKE ONE TABLET BY MOUTH DAILY Start: 02-25-2024 End: 06-09-2024 atorvastatin (Lipitor) 20 MG tablet Daily 02/25/2024 Active Start: 07-03-2021 take 1 mg by mouth once daily atorvastatin 10 mg Tab mg tab(s), Oral, Daily, Refills(s) 0 Start Date: 07/03/21 Status: Ordered biotin 1 mg oral tablet (20 sources) Start: 07-03-2021 take 1 tablet by mouth once daily biotin 1000 mcg oral tablet 1,000 mcg = 1 tab(s), Oral, Daily, # 30 tab(s), Refills(s) 0 Start Date: 07/03/21 Status: Ordered Blood Sugar Diagnostic (7 sources) Start: 02-24-2024 Blood Sugar Di agnostic Active 0 .Route 100 February 24, 2024 12:00am to test blood sugar once daily Start: 02-23-2024 Blood Sugar Di agnostic Active 0 .Route February 23, 2024 12:00am As directed carvedilol 12.5 mg oral tablet (20 sources) alpha-Adrenergic Donovan, beta-Adrenergic Donovan Start: 06-09-2024 take 1 tablet by mouth twice daily Carvedilol Active 0 .ROUTE .COMPLEX 180 June 09, 2024 8:34am TAKE ONE TABLET BY MOUTH TWICE A DAY Start: 05-13-2019 End: 06-09-2024 carvedilol (Coreg) 12.5 MG t ablet Twice daily 02/24/2024 Active citalopram 40 mg oral tablet (20 sources) Serotonin Reuptake Inhibitor Start: 02-24-2024 citalopram (CeleXA) 40 MG tablet .COMPLEX 02/24/2024 Active Start: 02-08-2024 End: 02-24-2024 take 1 tablet by mouth once daily Citalopram Active 0 .ROUTE .COMPLEX February 24, 2024 4:27pm TAKE 1 TABLET BY MOUTH EVERY DAY Start: 02-08-2024 End: 02-08-2024 take 40 mg by mouth once daily Citalopram Discontinued 40 MG PO Daily February 08, 2024 12:00am February 08, 2024 3:33pm Start: 07-03-2021 citalopram Ora l, Daily, Refills(s) 0 Start Date: 07/03/21 Status: Ordered Start: 05-13-2019 End: 02-08-2024 take 1 tablet by mouth at bedtime Citalopram Discontinued 1 TAB PO Bedtime May 13, 2019 12:00am February 08, 2024 3:21pm take 1 tablet by jazmín th once daily Citalopram Hydrobromide 40 MG TAKE 1 TABLET BY MOUTH EVERY DAY for 90 Active empagliflozin 25 mg oral tablet (20 sources) Sodium-Glucose Cotransporter 2 Inhibitor Start: 04-01-2023 Jardiance 25 mg oral tablet Refills(s) 0 Start Date: 06/09/23 Status: Ordered ertugliflozin 15 mg oral tablet (20 sources) Start: 07-03-2021 take 1 mg by mouth once daily in the morning Steglatro 15 mg oral tablet mg tab(s), Oral, qAM, Refills(s) 0 Start Date: 07/03/21 Status: Ordered glipiZIDE er 10 mg 24 hr extended release oral tablet (20 sources) Sulfonylurea Start: 02-24-2024 glipiZIDE XL (Glucotrol XL) 10 MG 24 hr tablet .COMPLEX 02/24/2024 Active Start: 02-21-2024 End: 02-24-2024 take 1 tablet by mouth once daily Glipizide Active 0 .ROUTE .COMPLEX February 24, 2024 4:27pm TAKE 1 TABLET BY MOUTH EVERY DAY Start: 11-05-2023 End: 02-21-2024 take 1 tablet by mouth once daily Glipizide Discontinued 0 .ROUTE .COMPLEX November 05, 2023 4:00pm February 21, 2024 8:33am TAKE 1 TABLET BY MOUTH EVERY DAY Start: 11-05-2023 take 1 tablet by jazmín th once daily Glipizide Active 0 .ROUTE .COMPLEX November 05, 2023 4:00pm TAKE 1 TABLET [...] sulfate 0.375 mg extended release oral tablet (20 sources) Start: 04-17-2024 End: 04-17-2024 take 0.375 mg by mouth twice daily Hyoscyamine Sulfate Active 0.375 MG PO Twice daily 60 April 17, 2024 11:34am Start: 03-22-2024 End: 04-17-2024 take 1 tablet by mouth once daily Hyoscyamine Sulfate (Levsin) 0.125 mg tablet Discontinued 0.125 MG PO Daily March 22, 2024 12:00am April 17, 2024 11:02am Start: 02-18-2024 End: 03-22-2024 take 0.375 mg by mouth every twelve hours Hyoscyamine Sulfate Discontinued 0.375 MG PO Every 12 hours February 18, 2024 12:00am March 22, 2024 11:05am Start: 12-03-2020 take 1 tablet by jazmín th every twelve hours Hyoscyamine Sulfate ER 0.375 MG 1 tablet Orally every 12 hrs for 30 day(s) Nov, Active take 1 tablet by jazmín th every twelve hours in the morning hyoscyamine ER (Levbid) 0.375 MG 12 hr tablet Take 375 mcg by mouth in the morning and 375 mcg before bedtime. Active lisinopril 5 mg oral tablet (20 sources) Angiotensin Converting Enzyme Inhibitor Start: 07-03-2021 take 1 mg by mouth once daily lisinopril 5 mg Tab mg tab(s), Oral, Daily, Refills(s) 0 Start Date: 07/03/21 Status: Ordered Start: 05-13-2019 End: 10-20-2023 lisinopril 5 MG tablet Twice daily 10/20/2023 Active omeprazole 40 mg delayed release oral capsule (20 sources) Proton Pump Inhibitor Start: 02-24-2024 omeprazo le (PriLOSEC) [address] capsule .COMPLEX 02/24/2024 Active Start: 11-26-2023 End: 02-24-2024 take 1 capsule by mouth once daily before mealtime Omeprazole Discontinued 0 .ROUTE .COMPLEX November 30, 2023 9:17am February 24, 2024 4:28pm TAKE 1 CAPSULE BY MOUTH EVERY DAY BEFORE A MEAL Start: 07-03-2021 End: 11-26-2023 omeprazole (PriLOSEC) [address] capsule .COMPLEX 02/24/2024 Active omeprazole 40 mg Cap-DR (3 sources) Start: 07-03-2021 take 1 mg by mouth once daily omeprazole 40 mg Cap-DR mg cap(s), Oral, Daily, Refills(s) 0 Start Date: 07/03/21 Status: Ordered One Touch Glucometer (8 sources) Start: 11-25-2022 One Touch Glucometer use as directed Nov, Active pioglitazone 30 mg oral tablet (20 sources) Peroxisome Proliferator Receptor alpha Agonist, Peroxisome Proliferator Receptor gamma Agonist, Thiazolidinedione Start: 03-08-2024 take 1 tablet by mouth once daily pioglitazone 30 mg Tab TAKE 1 TABLET BY MOUTH EVERY DAY FOR 30 DAYS Start Date: 03/08/24 Status: Ordered Start: 12-06-2023 End: 04-17-2024 take 1 tablet by mouth once daily Pioglitazone Discontinued 0 .ROUTE .COMPLEX 90 February 24, 2024 4:27pm April 17, 2024 9:17am TAKE 1 TABLET BY MOUTH EVERY DAY FOR 30 DAYS Start: 12-06-2023 End: 12-06-2023 take 30 mg by mouth once daily Pioglitazone Discontinu ed 30 MG PO Daily December 06, 2023 12:00am December 06, 2023 11:55am Start: 12-09-2022 take 1 tablet by jazmín th every twenty-four hours Actos 15 MG 1 tablet Orally Once a day for 30 days Dec, Active take 1 tablet by jazmín th every twenty-four hours Pioglitazone HCl 30 MG 1 tablet Orally Once a day for 30 days Active Testosterone (20 sources) Androgen Start: 06-14-2024 inject 200 mg by intramuscular injection every other week Testosterone Cypionate Active 200 MG IM EVERY 2 WEEKS June 14, 2024 12:00am Start: 01-25-2024 inject 200 mg by int ramuscular injection every other week Depo-Testosterone 200 mg/mL intramuscular solution 200 mg, IntraMuscular, q2wk, # 10 mL, Refills(s) 5, Pharmacy: [facility]/pharmacy #[id number], 174, cm, 09/15/23 8:08:00 EST, Height/Length Dosing, 143, kg, 09/15/23 8:08:00 EST, Weight Dosing Start Date: 01/25/24 Status: Ordered Start: 06-09-2023 inject 200 mg by int ramuscular injection every other week Depo-Testosterone 200 mg/mL intramuscular solution 200 mg, IntraMuscular, q2wk, # 10 mL, Refills(s) 5, Pharmacy: [facility]/pharmacy #[id number], 174, cm, 06/09/23 7:58:00 EDT, Height/Length Dosing, 143, kg, 06/09/23 7:58:00 EDT, Weight Dosing Start Date: 06/09/23 Status: Ordered testosterone cypionate 200 mg/mL IM Erin (15 sources) Start: 03-30-2023 inject 150 mg by intramuscular injection every other week testosterone cypionate 200 mg/mL IM Erin 150 mg, IntraMuscular, q2wk, # 10 mL, Refills(s) 0, Pharmacy: [facility]/pharmacy #[id number], 175, cm, 03/03/23 9:34:00 EDT, Height/Length [...] q2wk, # 1 mL, Refills(s) 5, Pharmacy: [facility]/pharmacy #[id number], 175, cm, 05/27/22 8:55:00 EDT, Height/Length Dosing, 142.9, kg, 05/27/22 8:55:00 EDT, Weight Dosing Start Date: 05/27/22 Status: Ordered Start: 01-05-2022 testosterone c ypionate 200 mg/mL intramuscular solution 200 mg = 1 mL, IntraMuscular, q4wk, # 1 mL, Refills(s) 5, Pharmacy: [facility]/pharmacy #[id number], 175, cm, 11/11/21 8:23:00 EST, Height/Length Dosing, 142.9, kg, 11/11/21 8:23:00 EST, Weight Dosing Start Date: 01/05/22 Status: Ordered Start: 07-07-2021 testosterone c ypionate 200 mg/mL intramuscular solution 200 mg = 1 mL, IntraMuscular, q4wk, # 1 mL, Refills(s) 5, Pharmacy: [facility]/pharmacy #[id number], 175, cm, 07/03/21 9:23:00 EDT, Height/Length Dosing, 136.5, kg, 07/03/21 9:23:00 EDT, Weight Dosing Start Date: 07/07/21 Status: Ordered Testosterone Cypionate 200 mg/mL intramuscular solution (8 sources) Start: 09-23-2022 inject 100 mg by intramuscular injection every other week Testosterone Cypionate 200 mg/mL intramuscular solution 100 mg, IntraMuscular, q2wk, # 10 mL, Refills(s) 0, Pharmacy: [facility]/pharmacy #[id number], 175, cm, 09/09/22 10:01:00 EST, Height/Length Dosing, 139, kg, 09/09/22 10:01:00 EST, Weight Dosing Start Date: 09/23/22 Status: Ordered Tirzepatide (2 sources) Start: 05-01-2024 Tirzepatide (Jonh marin) 5 mg/0.5 mL pen injector Active 5 MG SUBCUT every week 2 May 01, 2024 12:00am to follow 2.5 mg (voucher) Vitamin B12 1000 mcg Tab (20 sources) [...] hours, # 30 tab(s), Refills(s) 5, Pharmacy: [id number], 175, cm, 03/03/23 9:34... Start Date: [...] hours, # 30 tab(s), Refills(s) 5, Pharmacy: [facility]/pharmacy #[id number], 175, cm, 03/03/23 9:34:00 EDT,... Start Date: 03/03/23 Status: Ordered sulfamethoxazole 800 mg / trimethoprim 160 mg oral tablet (4 sources) Dihydrofolate Reductase Inhibitor Antibacterial, Sulfonamide Antimicrobial Start: 02-23-2024 End: 04-17-2024 take 1 tablet by mouth twice daily Sulfamethoxazole-Trimethoprim Discontinued 1 TAB PO Twice daily February 23, 2024 12:00am April 17, 2024 9:16am tadalafil 20 mg oral tablet (20 sources) Phosphodiesterase 5 Inhibitor Start: 09-15-2023 take 1 tablet by mouth every hour as needed, then take 1 tablet by mouth every twenty- four hours as needed Cialis 20 mg Tab 20 mg = 1 tab(s), Oral, As Directed, PRN for erectile dysfunction, Take 1 tab 1 hour prior to intercourse. Do not exceed 20mg within 24 hours., # 30 tab(s), Refills(s) 3, Pharmacy: [facility] #[id number], 174, cm, 09/15/23 8:08:00 EST, Height/Length Dosing, 143, kg, 09/15/23 8:08:00 EST, Weight Dosing Start Date: 09/15/23 Status: Ordered Start: 06-09-2023 Cialis 20 mg T ab 20 mg = 1 tab(s), Oral, As Directed, PRN for erectile dysfunction, Do not exceed 20mg within 24 hours., # 30 tab(s), Refills(s) 3, Pharmacy: [facility]/pharmacy #[id number], 174, cm, 06/09/23 7:58:00 EDT, Height/Length Dosing, 143, kg, 06/09/23 7:58:00 EDT, Weight Dosing Start Date: 06/09/23 Status: Ordered Tirzepatide (2 sources) Start: 05-01-2024 End: 06-14-2024 Tirzepatide (Mounjaro) 2.5 m g/0.5 mL pen injector Discontinued 2.5 MG SUBCUT every week 2 May 01, 2024 12:00am June 14, 2024 9:33am patient will have voucher Start: 05-01-2024 Tirzepatide (M ounjaro) 2.5 mg/0.5 mL pen injector Active 2.5 MG SUBCUT every week 2 May 01, 2024 12:00am patient will have voucher Problems Active Problems Problem Classification Problem Date [...] unspecified foot with unspecified severity] Onset: 03-08-2018 06-08-2024 Chronic Congestive heart failure; nonhypertensive (9 sources) Heart failure, unspecified; Translations: [Heart failure] Onset: 04-15-2022 Chronic Coronary atherosclerosis and other heart disease (20 sources) Atherosclerotic heart disease of hoopa coronary artery without angina pectoris; Translations: [Double [...] 03-08-2018 05-13-2019 Chronic Disorders of lipid metabolism (20 sources) Hyperlipidemia; Translations: [Other and unspecified hyperlipidemia] Onset: 01-26-2022 Chronic Esophageal disorders (13 sources) Gastroesophageal reflux disease without esophagitis; Translations: [...] symptoms] Onset: 08-19-2022 Chronic Malaise and fatigue (17 sources) Fatigue; Translations: [Other fatigue] Onset: 09-15-2018 02-23-2024 Episodic Mood disorders (14 sources) Depression; Translations: [Major depressive disorder, single episode, unspecified] Onset: 05-01-2022 Chronic Nonspecific chest pain (5 sources) Chest discomfort; Translations: [Other chest pain] 05-13-2019 Episodic Open wounds of extremities (5 sources) Injury of foot; Translations: [Unspecified open wound, unspecified foot, initial encounter] 04-17-2024 Episodic Osteoarthritis (5 sources) Localized, primary osteoarthritis [...] Chronic Other nutritional; endocrine; and metabolic disorders (15 sources) Morbid obesity; Translations: [Morbid obesity] 05-14-2019 Chronic Other nutritional; endocrine; and metabolic disorders (1 source) Morbid (severe) obesity due to excess calories; Translations: [MORBID SEVERE OBES D/T EXCESS DAVID] Onset: 08-07-2022 Chronic Other nutritional; endocrine; and metabolic disorders (1 source) Body mass index (BMI) 45.0-49.9, adult; Translations: [BODY MASS INDEX BMI 45.0-49.9 ADULT] Onset: 08-07-2022 Chronic Other nutritional; endocrine; and metabolic disorders (8 sources) Obesity; Translations: [Obesity, unspecified] Onset: 07-13-2014 04-17-2024 Chronic Other nutritional; endocrine; and metabolic disorders (3 sources) Obesity, unspecified; Translations: [Obesity, unspecified] 04-17-2024 Chronic Other screening for suspected conditions (not mental disorders or infectious disease) (20 sources) Decreased testosterone level ; Translations: [Blood chemistry abnormal] Onset: 03-03-2022 07-03-2021 Episodic Other skin disorders (5 sources) Callosity; Translations: [Corns and callosities] Episodic Other skin disorders (3 sources) Hemosiderin pigmentation of lower limb due to varicose veins of lower limb; Translations: [Other specified disorders of pigmentation] 04-17-2024 Episodic Other skin disorders (3 sources) Other specified disorders of pigmentation; Translations: [Dyschromia, unspecified] 04-17-2024 Episodic Peripheral and visceral atherosclerosis (7 sources) Intermittent claudication; Translations: [Peripheral vascular disease, unspecified] 03-01-2024 Chronic Residual codes; unclassified (5 sources) Obstructive sleep apnea syndrome; Translations: [Obstructive sleep apnea] Onset: 03-08-2018 Chronic Residual codes; unclassified (5 sources) Sleep apnea; Translations: [Sleep apnea, unspecified] 05-14-2019 Chronic Residual codes; unclassified (8 sources) Edema; Translations: [Localized edema] Episodic Residual codes; unclassified (8 sources) Localized edema; Translations: [Localized edema] Onset: 02-24-2022 04-17-2024 Episodic Residual codes; unclassified (5 sources) Tobacco user; Translations: [Tobacco use] Episodic Residual codes; unclassified (3 sources) Bilateral lower limb edema; Translations: [Localized edema] 04-17-2024 Episodic Screening and history of mental health [...] Unclassified (2 sources) Athscl heart disease of hoopa coronary artery w/o ang pctrs / I25.10(ICD-9) Onset: 07-14-2018 Unclassified (20 sources) Asymptomatic microscopic hematuria 11-11-2021 Unclassified (1 source) CONTACT W/AND (SUSP) EXPOS COVID-19; Translations: [CONTACT W/AND (SUSP) EXPOS COVID-19] Onset: 05-01-2022 Varicose veins of lower extremity (10 sources) Pain co-occurrent and due to varicose veins of bilateral legs; Translations: [Varicose veins of bilateral lower extremities with pain] 04-17-2024 Episodic Viral infection (1 source) COVID-19; Translations: [...] Onset: 12-12-2014 Episodic Other aftercare (1 source) assisted (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; Translations: [CURRICULUM DEVELOPMENT MANAGER CURRENT USE OF ASPIRIN] Onset: 08-07-2022 Episodic Other aftercare (1 source) assisted (current) use of oral hypoglycemic drugs; Translations: [CURRICULUM DEVELOPMENT MANAGER USE ORAL HYPOGLYCEMIC DX] Onset: 08-07-2022 Episodic Other aftercare (1 source) Other detention (current) drug therapy; Translations: [OTH CURRICULUM DEVELOPMENT MANAGER CURRENT DRUG THERAPY] Onset: 05-01-2022 Episodic Other [...] Reference Range Facil ity Ambulatory Visit Summaryon 1 Ambulatory Visit Summary Ambulatory Visit Summary JOHNATHAN AMBROSIO :1960 Visit Date:06/14/2024 Ambulatory Visit Instructions Your Diagnosis Hypogonadism male Your Care Team Attending Physician - Carlos LIZAMA, Lety Scott Primary Care Physician - WOJCIECH LIZAMA, LUIS This Is Your Medications List amlodipine (amLODIPine 5 mg Tab) atorvastatin (atorvastatin 10 mg Tab) carvedilol (carvedilol 12.5 mg Tab) citalopram ertugliflozin (Steglatro 15 mg oral tablet) glipiZIDE (glipiZIDE 5 mg Tab) lisinopril (lisinopril 5 mg Tab) omeprazole (omeprazole 40 mg Cap-DR) pioglitazone (pioglitazone 30 mg Tab) tadalafil (Cialis 20 mg Tab) testosterone (Depo-Testosterone 200 mg/mL intramuscular solution) Procedures Performed Aortic stent, Big toe, Tonsillectomy. What to do next Scheduled Follow-Up Appointments Wednesday 8:00 AM EDT With: Where: [facility] [address] [place] [address]- Wednesday 8:00 AM EST With: Where: [facility] [address] [facility] [place] [address]- Wednesday 8:00 AM EST With: Where: [facility] [address] [place] [facility] [place] [address]- Wednesday 8:00 AM EST With: Where: [facility] [address] [place] [facility] [place] [address]- Wednesday 10:00 AM EST With: Lety Gonzalez MD Where: [facility] [address] [place] [address]- Wednesday 9:45 AM EST With: Lety Gonzalez MD Where: [facility] [address] [place] [address]- Medications What How Much When Why Instructions Unchanged amlodipine (amLODIPine 5 mg Tab) By Mouth Every day Unchanged atorvastatin (atorvastatin 10 mg Tab) By Mouth Every day Unchanged carvedilol (carvedilol 12.5 mg Tab) By Mouth 2 times a day Unchanged citalopram By Mouth Every day Unchanged ertugliflozin (Steglatro 15 mg oral tablet) By Mouth Once a day (in the morning) Unchanged glipiZIDE (glipiZIDE 5 mg Tab) By Mouth Every day Unchanged lisinopril (lisinopril 5 mg Tab) By Mouth Every day Unchanged omeprazole (omeprazole 40 mg Cap-DR) By Mouth Every day Unchanged pioglitazone (pioglitazone 30 mg Tab) TAKE 1 TABLET BY MOUTH EVERY DAY FOR 30 DAYS Unchanged tadalafil (Cialis 20 mg Tab) 1 Tablets By Mouth As Directed as needed for for erectile dysfunction Take 1 tab 1 hour prior to intercourse. Do not exceed 20mg within 24 hours. Unchanged testosterone (Depo-Testosterone 200 mg/ mL intramuscular solution) 200 Milligram Intramuscular Every other week Hypogonadism male ED (erectile dysfunction) Medications and Immunizations Administered Given Depo-Testosterone 200 mg/mL intramuscular solution, 200 mg, IntraMuscular. For: Hypogonadism male Allergies metFORMIN (Stomach cramps, Diarrhea) Problems Ongoing - Any problem that you are currently receiving treatment for. Asymptomatic microscopic hematuria BPH without urinary obstruction Diabetes mellitus ED (erectile dysfunction) Essential hypertension Former smoker Groin pain Hyperlipidemia Hypogonadism male Low testosterone Nocturia Patient Survey You may receive a survey via text or e-mail asking about your office visit. Please share your experience with us by completing your survey. We appreciate your feedback and thank you for choosing us for your care. Normal [facility] Ambulatory Visit Summaryon 0 05-31-2024 Ambulatory Visit Summary Ambulatory Visit Summary JOHNATHAN AMBROSIO :1960 Visit Date:05/31/2024 Ambulatory Visit Instructions Your Care Team Attending Physician - Carlos LIZAMA, Lety Scott Primary Care Physician - LUIS JEFFREY MD This Is Your Medications List amlodipine (amLODIPine 5 mg Tab) atorvastatin (atorvastatin 10 mg Tab) carvedilol (carvedilol 12.5 mg Tab) citalopram ertugliflozin (Steglatro 15 mg oral tablet) glipiZIDE (glipiZIDE 5 mg Tab) lisinopril (lisinopril 5 mg Tab) omeprazole (omeprazole 40 mg Cap-DR) pioglitazone (pioglitazone 30 mg Tab) tadalafil (Cialis 20 mg Tab) testosterone (Depo-Testosterone 200 mg/mL intramuscular solution) Procedures Performed Aortic stent, Big toe, Tonsillectomy. What to do next Scheduled Follow-Up Appointments Wednesday 8:00 AM EDT With: Where: [facility] [address] [address]- Wednesday 8:00 AM EDT With: Where: [facility] [address] [address]- Wednesday 8:00 AM EST With: Where: [facility] [address] [address]- Wednesday 10:00 AM EST With: Carlos LIZAMA, Lety Scott Where: [facility] [address] [place] [address]- Medications What How Much When Why Instructions Unchanged amlodipine (amLODIPine 5 mg Tab) By Mouth Every day Unchanged atorvastatin (atorvastatin 10 mg Tab) By Mouth Every day Unchanged carvedilol (carvedilol 12.5 mg Tab) By Mouth 2 times a day Unchanged citalopram By Mouth Every day Unchanged ertugliflozin (Steglatro 15 mg oral tablet) By Mouth Once a day (in the morning) Unchanged glipiZIDE (glipiZIDE 5 mg Tab) By Mouth Every day Unchanged lisinopril (lisinopril 5 mg Tab) By Mouth Every day Unchanged omeprazole (omeprazole 40 mg Cap-DR) By Mouth Every day Unchanged pioglitazone (pioglitazone 30 mg Tab) TAKE 1 TABLET BY MOUTH EVERY DAY FOR 30 DAYS Unchanged tadalafil (Cialis 20 mg Tab) 1 Tablets By Mouth As Directed as needed for for erectile dysfunction Take 1 tab 1 hour prior to intercourse. Do not exceed 20mg within 24 hours. Unchanged testosterone (Depo-Testosterone 200 mg/ mL intramuscular solution) 200 Milligram Intramuscular Every other week Hypogonadism male ED (erectile dysfunction) Allergies metFORMIN (Stomach cramps, Diarrhea) Problems Ongoing - Any problem that you are currently receiving treatment for. Asymptomatic microscopic hematuria BPH without urinary obstruction Diabetes mellitus ED (erectile dysfunction) Essential hypertension Former smoker Groin pain Hyperlipidemia Hypogonadism male Low testosterone Nocturia Patient Survey You may receive a survey via text or e-mail asking about your office visit. Please share your experience with us by completing your survey. We appreciate your feedback and thank you for choosing us for your care. [facility] Ambulatory Visit Summaryon 0 05-02-2024 Ambulatory Visit Summary Ambulatory Visit Summary HEBERTJOHNATHAN :1960 Visit Date:05/02/2024 Ambulatory Visit Instructions Your Diagnosis Low testosterone Your Care Team Attending Physician - Carlos LIZAMA, Lety cSott Primary Care Physician - LUIS JEFFREY MD This Is Your Medications List amlodipine (amLODIPine 5 mg Tab) atorvastatin (atorvastatin 10 mg Tab) carvedilol (carvedilol 12.5 mg Tab) citalopram ertugliflozin (Steglatro 15 mg oral tablet) glipiZIDE (glipiZIDE 5 mg Tab) lisinopril (lisinopril 5 mg Tab) omeprazole (omeprazole 40 mg Cap-DR) pioglitazone (pioglitazone 30 mg Tab) tadalafil (Cialis 20 mg Tab) testosterone (Depo-Testosterone 200 mg/mL intramuscular solution) Procedures Performed Aortic stent, Big toe, Tonsillectomy. What to do next Scheduled Follow-Up Appointments Wednesday 8:00 AM EDT With: Where: [facility] [address] [place] [address]- Wednesday 10:00 AM EST With: Lety Gonzalez MD Where: [facility] [address] [place] [address]- Medications What How Much When Why Instructions Unchanged amlodipine (amLODIPine 5 mg Tab) By Mouth Every day Unchanged atorvastatin (atorvastatin 10 mg Tab) By Mouth Every day Unchanged carvedilol (carvedilol 12.5 mg Tab) By Mouth 2 times a day Unchanged citalopram By Mouth Every day Unchanged ertugliflozin (Steglatro 15 mg oral tablet) By Mouth Once a day (in the morning) Unchanged glipiZIDE (glipiZIDE 5 mg Tab) By Mouth Every day Unchanged lisinopril (lisinopril 5 mg Tab) By Mouth Every day Unchanged omeprazole (omeprazole 40 mg Cap-DR) By Mouth Every day Unchanged pioglitazone (pioglitazone 30 mg Tab) TAKE 1 TABLET BY MOUTH EVERY DAY FOR 30 DAYS Unchanged tadalafil (Cialis 20 mg Tab) 1 Tablets By Mouth As Directed as needed for for erectile dysfunction Take 1 tab 1 hour prior to intercourse. Do not exceed 20mg within 24 hours. Unchanged testosterone (Depo-Testosterone 200 mg/ mL intramuscular solution) 200 Milligram Intramuscular Every other week Hypogonadism male ED (erectile dysfunction) Medications and Immunizations Administered Given Depo-Testosterone 200 mg/mL intramuscular solution, 200 mg, IntraMuscular. For: Low testosterone Allergies metFORMIN (Stomach cramps, Diarrhea) Problems Ongoing - Any problem that you are currently receiving treatment for. Asymptomatic microscopic hematuria BPH without urinary obstruction ED (erectile dysfunction) Former smoker Groin pain Hypogonadism male Low testosterone Nocturia Patient Survey You may receive a survey via text or e-mail asking about your office visit. Please share your experience with us by completing your survey. We appreciate your feedback and thank you for choosing us for your care. Normal [facility] No Panel Informationon 05-01 Bedside Glucose 236 [facility] Ambulatory Visit Summaryon 0 04-05-2024 Ambulatory Visit Summary Ambulatory Visit Summary JOHNATHAN AMBROSIO :1960 Visit Date:04/05/2024 Ambulatory Visit Instructions Your Diagnosis Hypogonadism male Your Care Team Attending Physician - Carlos LIZAMA, Lety Borja. Primary Care Physician - LUIS JEFFREY MD This Is Your Medications List amlodipine (amLODIPine 5 mg Tab) atorvastatin (atorvastatin 10 mg Tab) carvedilol (carvedilol 12.5 mg Tab) citalopram ertugliflozin (Steglatro 15 mg oral tablet) glipiZIDE (glipiZIDE 5 mg Tab) lisinopril (lisinopril 5 mg Tab) omeprazole (omeprazole 40 mg Cap-DR) pioglitazone (pioglitazone 30 mg Tab) tadalafil (Cialis 20 mg Tab) testosterone (Depo-Testosterone 200 mg/mL intramuscular solution) Procedures Performed Aortic stent, Big toe, Tonsillectomy. What to do next Scheduled Follow-Up Appointments Wednesday 8:00 AM EDT With: Where: [facility] [place] [address] [place] [address]- Wednesday 10:00 AM EST With: Carlos LIZAMA, Lety Scott Where: [facility] [address] [place] [address]- Medications What How Much When Why Instructions Unchanged amlodipine (amLODIPine 5 mg Tab) By Mouth Every day Unchanged atorvastatin (atorvastatin 10 mg Tab) By Mouth Every day Unchanged carvedilol (carvedilol 12.5 mg Tab) By Mouth 2 times a day Unchanged citalopram By Mouth Every day Unchanged ertugliflozin (Steglatro 15 mg oral tablet) By Mouth Once a day (in the morning) Unchanged glipiZIDE (glipiZIDE 5 mg Tab) By Mouth Every day Unchanged lisinopril (lisinopril 5 mg Tab) By Mouth Every day Unchanged omeprazole (omeprazole 40 mg Cap-DR) By Mouth Every day Unchanged pioglitazone (pioglitazone 30 mg Tab) TAKE 1 TABLET BY MOUTH EVERY DAY FOR 30 DAYS Unchanged tadalafil (Cialis 20 mg Tab) 1 Tablets By Mouth As Directed as needed for for erectile dysfunction Take 1 tab 1 hour prior to intercourse. Do not exceed 20mg within 24 hours. Unchanged testosterone (Depo-Testosterone 200 mg/ mL intramuscular solution) 200 Milligram Intramuscular Every other week Hypogonadism male ED (erectile dysfunction) Medications and Immunizations Administered Given Depo-Testosterone 200 mg/mL intramuscular solution, 200 mg, IntraMuscular. For: Hypogonadism male Allergies metFORMIN (Stomach cramps, Diarrhea) Problems Ongoing - Any problem that you are currently receiving treatment for. Asymptomatic microscopic hematuria BPH without urinary obstruction ED (erectile dysfunction) Former smoker Groin pain Hypogonadism male Low testosterone Nocturia Patient Survey You may receive a survey via text or e-mail asking about your office visit. Please share your experience with us by completing your survey. We appreciate your feedback and thank you for choosing us for your care. [facility] Ambulatory Visit Summaryon 0 03-08-2024 Ambulatory Visit Summary Ambulatory Visit Summary JOHNATHAN AMBROSIO :1960 Visit Date:03/08/2024 Ambulatory Visit Instructions Your Diagnosis Hypogonadism male ED (erectile dysfunction) BPH without urinary obstruction Your Care Team Attending Physician - Carlos LIZAMA, Lety Scott Primary Care Physician - LUIS JEFFREY MD This Is Your Medications List Contact prescribing physician if questions or concerns amlodipine (amLODIPine 5 mg Tab) atorvastatin (atorvastatin 10 mg Tab) carvedilol (carvedilol 12.5 mg Tab) citalopram ertugliflozin (Steglatro 15 mg oral tablet) glipiZIDE (glipiZIDE 5 mg Tab) lisinopril (lisinopril 5 mg Tab) omeprazole (omeprazole 40 mg Cap-DR) pioglitazone (pioglitazone 30 mg Tab) tadalafil (Cialis 20 mg Tab) testosterone (Depo-Testosterone 200 mg/mL intramuscular solution) Procedures Performed Aortic stent, Big toe, Tonsillectomy. Discharge Vitals Heart Rate (Peripheral) 70 Respiratory Rate 16 Blood Pressure 126/85 Height 174 cm Height 69 in Weight 147 kg Weight 323.4 lb BMI 48.55 What to do next Scheduled Follow-Up Appointments Wednesday 8:30 AM EDT With: Where: [facility] Invalid Interpretation Code [address] [place] [address] [place] [address]- \.br\ Wednesday 10:00 AM EST \.br\ With: Lety Gonzalez MD\.br\ Where: [facility] Ambulatory Visit Summary Ambulatory Visit Summary JOHNATHAN AMBROSIO :1960 Visit Date:03/08/2024 Ambulatory Visit Instructions Your Diagnosis Hypogonadism male ED (erectile dysfunction) BPH without urinary obstruction Your Care Team Attending Physician - Carlos LIZAMA, Lety Scott Primary Care Physician - LUIS JEFFREY MD This Is Your Medications List Contact prescribing physician if questions or concerns amlodipine (amLODIPine 5 mg Tab) atorvastatin (atorvastatin 10 mg Tab) carvedilol (carvedilol 12.5 mg Tab) citalopram ertugliflozin (Steglatro 15 mg oral tablet) glipiZIDE (glipiZIDE 5 mg Tab) lisinopril (lisinopril 5 mg Tab) omeprazole (omeprazole 40 mg Cap-DR) pioglitazone (pioglitazone 30 mg Tab) tadalafil (Cialis 20 mg Tab) testosterone (Depo-Testosterone 200 mg/mL intramuscular solution) Procedures Performed Aortic stent, Big toe, Tonsillectomy. Discharge Vitals Heart Rate (Peripheral) 70 Respiratory Rate 16 Blood Pressure 126/85 Height 174 cm Height 69 in Weight 147 kg Weight 323.4 lb BMI 48.55 What to do next Scheduled Follow-Up Appointments Wednesday 8:30 AM EDT With: Where: [facility] Invalid Interpretation Code [address] [place] [address]- \.br\ Wednesday 10:00 AM EST \.br\ With: Lety Gonzalez MD\.br\ Where: [facility] Reminderson 03-08-2024 Reminders Reminders - From: Amelia Winslow To: [facility] - Recalls Carlos; Sent: 09/15/2023 08:41:01 EST Show up: 02/14/2024 09:40:00 EDT Subject: PSA, Hct, and T level Reminder Message Please Remember to:_have pt get PSA, T level, and Hct done prior to appt. Internal lab orders in place. Pt seen 03/08/24 w/ new labs. Normal [facility] Urology Office/Clinic Noteon 03-08-2024 Urology Office/Clinic Note Urology Office/Clinic Note Chief Complaint 6m T Level HPI Staff 6m w/labs DX: Hypogonadism, ED & BPH *Testosterone 200mg IM q2wk therapy. Started on Cialis at time of last encounter PSA Scrn Tot.: 0.8 ng/mL (03/01/24 12:00:00) Testosterone 03/01/24- 547 HCT 03/01/24- 48.4% Denies all urinary sx. Did try Cialis, didn't work. Does not take anymore. Failed Sildenafil in the past as well. Is interested in other options. History of Present Illness Tests reviewed: reviewed UA, PSA, T level, Hct I have reviewed the previous health record [...] HPI. Physical Exam Vitals & Measurements HR: 70(Peripheral) RR: 16 BP: 126/85 HT: 69 in HT: 174 cm WT: 147 kg WT: 323.4 lb BMI: 48.55 General Appearance: alert, no distress, well nourished, well developed male. Assessment/Plan 63 year old male prior DLS pt here for follow up of hypogonadism 1. Hypogonadism male (E29.1: Testicular hypofunction) Testosterone: 05/13/22 - 323 07/29/22 - 830, on 200mg q2w 11/18/22 - 234, on 100mg q2wk 02/24/23 - 390, on 150mg q2wk 06/02/23 - 333, on 150mg q2wk 09/08/23 - 478, on 200mg q2wks 03/01/24 - 547, on 200mg q2wks Labs: 06/02/23 - HGB 16.5. HCT 50.1. 03/01/24 - HGB 16.1. HCT 48.4. Receiving Testosterone IM 200mg q2wks. Most recent given 02/23/24. Reviewed recent labs, wnl. Feels he is doing well with injections. Discussed alternative treatments. Declines changes at this time -Testosterone 200mg inj given today without issue -Diet and exercise -Nurse visit q2wk for injections at 200 mg IM -T level in 6 mos (nurse visit 1 week prior to appt). If stable, can move to annual monitoring 2. ED (erectile dysfunction) (N52.9: Male erectile dysfunction, unspecified) Tried Viagra 100mg prn but did not have any effect. [1] SHANTA 1 (0). Started pt on Cialis 20mg prn at prior OV. Did not have any sx improvement. Discussed alternative options for ED, including erection pumps in addition to medication, intracorporal injection therapy, and surgical options. Pt declines treatment at this time. -TRT as above -D/c Cialis -Diet and exercise 3. BPH without urinary obstruction (N40.0: Benign prostatic hyperplasia without lower urinary tract symptoms) PSA 10/21/21 - 0.7 & 41% 02/24/23 - 3.6 06/02/23 - 1.27 03/01/24 - 0.8 IPSS 2 (4). UA today negative for blood and infection. Not currently taking any BPH meds. Not voicing any urinary habit complaints. PSA has decreased. -Cont sx monitoring Follow-up With When Contact Information Carlos LIZAMA, Lety Scott, URL, [facility] [address], [place] [address]- [phone] Additional Instructions: 6 mos w/ T level Patient Education Hypogonadism, Male I, Amelia Winslow, personally scribed for Dr. Gonzalez on 03/08/2024 08:46:25. . Documentation recorded by the scribe, Amelia Winslow, accurately reflects the services(s) I performed and decisions made by me. Authenticated by Dr. Gonzalez on 03/08/2024 09:15:09. Problem List/Past Medical History Ongoing Asymptomatic microscopic hematuria BPH without urinary obstruction ED (erectile dysfunction) Former smoker Groin pain Hypogonadism male Low testosterone Nocturia Historical No qualifying data Procedure/Surgical History Aortic stent, Big toe, Tonsillectomy. Medications amLODIPine 5 mg Tab, Oral, Daily atorvastatin 10 mg Tab, Oral, Daily carvedilol 12.5 mg Tab, Oral, BID Cialis 20 mg Tab, 20 mg= 1 tab(s), Oral, As Directed, PRN, 3 refills, Not taking citalopram, Oral, Daily Depo-Testosterone 200 mg/mL intramuscular solution, 200 mg= 1 mL, IntraMuscular, Once Depo-Testosterone 200 mg/mL intramuscular solution, 200 mg, IntraMuscular, q2wk Depo-Testosterone 200 mg/mL intramuscular solution, 200 mg, IntraMuscular, q2wk, 5 refills Depo-Testosterone 200 mg/mL intramuscular solution, 200 mg= 1 mL, IntraMuscular, Once glipiZIDE 5 mg Tab, Oral, Daily lisinopril 5 mg Tab, Oral, Daily omeprazole 40 mg Cap-DR, Oral, Daily pioglitazone 30 mg Tab Steglatro 15 mg oral tablet, Oral, qAM Allergies metFORMIN (Stomach cramps, Diarrhea) Social History Tobacco Former smoker, quit more than 30 days ago Tobacco Use:. Never Smokeless Tobacco Use:. Cigarettes, Household tobacco concerns: No. Yes, (more content not included)... Normal [facility] Comment on above: Result Comment: Elec tronically Signed By: Lety Gonzalez MD\.br\Date and Time Signed: 03/08/24 09:15 EDT\.br\Electronically Co-Signed By: Amelia Winslow.br\Date and Time Co-Signed: 03/08/24 08:46 EDT Testost Totalon 03-03-2024 Testosterone [Mass/Vol] 547 ng/dL Invalid Interpretation Code [id number] [facility] Comment on above: Result Comment: Adul t male reference interval is based on a population of healthy nonobese males (BMI <30) between 19 and 39 years old. irina Lester.al. JCEM 2017,102;6545-9116. PMID: [id number]. Performed at: [facility] [id number] PhD Arianne Fonseca Performed By: #### 2 [id number] #### [facility] [address] [place] [address] [id number] 03-02-2024 HbA1c (Bld) [Mass fraction] 8.5 % High <=5.9 [facility] Comment on above: Performed By: #### 7 [id number] #### [facility] [address] [place] [address] TSH With T4fr Reflexon 03-02 TSH Qn 1.67 m[IU]/L Normal 0.34-5.60 [facility] Comment on above: Performed By: #### 1 [id number] #### [facility] [address] [place] [address] BMPOrdered By: SYSTEM SYSTEM on 03-01-2024 Anion gap [Moles/Vol] 11 mmol/L 6-16 [facility] Comment on above: Performed By: #### 2 [id number] #### [facility] [address] [place] [address] Calcium [Mass/Vol] 9.3 mg/dL 8.9-11.1 [facility] Comment on above: Performed By: #### 2 [id number] #### [facility] [address] [place] [address] Chloride [Moles/Vol] 95 mmol/L Low 101-111 Errol [facility]in [facility] Comment on above: Performed By: #### 2 [id number] #### [facility] [address] [place] [address] CO2 [Moles/Vol] 29 mmol/L 21-31 [facility] Comment on above: Performed By: #### 2 [id number] #### [facility] [address] [place] [address] Creatinine [Mass/Vol] 1.3 mg/dL 0.5-1.3 [facility] Comment on above: Performed By: #### 2 [id number] #### [facility] [address] [place] [address] Glucose [Mass/Vol] 229 mg/dL High 55-199 [facility] Comment on above: Performed By: #### 2 [id number] #### [facility] [address] [place] [address] Potassium [Moles/Vol] 5.3 mmol/L 3.5-5.3 [facility] Comment on above: Performed By: #### 2 [id number] #### [facility] [address] [place] [address] Sodium [Moles/Vol] 130 mmol/L Low 135-145 [facility] Comment on above: Performed By: #### 2 [id number] #### [facility] [address] [place] [address] Urea nitrogen [Mass/Vol] 20 mg/dL 5-21 [facility] Comment on above: Performed By: #### 2 [id number] #### [facility] [address] [place] [address] BMPon 03-01-2024 Urea nitrogen/Creatinine [Mass ratio] 15 No Units Normal 10-20 [facility] Comment on above: Performed By: #### 2 [id number] #### [facility] [address] [place] [address] CBC w/ Auto DiffOrdered By: SYSTEM SYSTEM on 03-01-2024 Basophils/100 WBC (Bld) 0.7 % Normal 0.0-2.0 [facility] Comment on above: Performed By: #### 2 [id number] #### [facility] [address] [place] [address] Basophils/Leukocytes Auto (Bld) [Pure # fraction] 0.1 E9/L Normal 0.0-0.2 [facility] Comment on above: Performed By: #### 2 [id number] #### [facility] [address] [place] [address] Eosinophils (Bld) [#/Vol] 0.3 E9/L Normal 0.0-0.5 [facility] Comment on above: Performed By: #### 2 [id number] #### [facility] [address] [place] [address] Eosinophils/100 WBC (Bld) 3.7 % Normal 0.0-8.0 [facility] Comment on above: Performed By: #### 2 [id number] #### [facility] [address] [place] [address] Erythrocyte distribution width (RBC) [Ratio] 16.7 % High 10.9-14.2 [facility] Comment on above: Performed By: #### 2 [id number] #### [facility] [address] [place] [address] Hematocrit (Bld) [Volume fraction] 48.4 % Normal 37.7-49.0 [facility] Comment on above: Performed By: #### 2 [id number] #### [facility] [address] [place] [address] Hemoglobin (Bld) [Mass/Vol] 16.1 g/dL Normal 13.5-17.5 [facility] Comment on above: Performed By: #### 2 [id number] #### [facility] [address] [place] [address] Lymphocytes (Bld) [#/Vol] 1.3 E9/L Normal 1.0-4.0 [facility] Comment on above: Performed By: #### 2 [id number] #### [facility] [address] [place] [address] Lymphocytes/100 WBC (Bld) 15.4 % Normal 14.0-50.0 [facility] Comment on above: Performed By: #### 2 [id number] #### [facility] [address] [place] [address] MCH (RBC) [Entitic mass] 26.6 pg Low 27.0-34.0 [facility] Comment on above: Performed By: #### 2 329394 #### [facility] [address] [place] [address] MCHC (RBC) [Mass/Vol] 33.3 g/dL Normal 31.4-36.0 [facility] Comment on above: Performed By: #### 2 134653 #### [facility] [address] [place] [address] MCV (RBC) [Entitic vol] 79.9 fL Low 80.0-100.0 [facility] Comment on above: Performed By: #### 2 [id number] #### [facility] [address] [place] [address] Monocytes (Bld) [#/Vol] 0.6 E9/L Normal 0.2-1.0 [facility] Comment on above: Performed By: #### 2 629444 #### [facility] [address] [place] [address] Neutrophils (Bld) [#/Vol] 6.3 E9/L Normal 2.0-7.5 [facility] Comment on above: Performed By: #### 2 455189 #### [facility] [address] [place] [address] Neutrophils/100 WBC (Bld) 73.2 % Normal 36.0-75.0 [facility] Comment on above: Performed By: #### 2 147627 #### [facility] [address] [place] [address] Platelet mean volume (Bld) [Entitic vol] 10.0 fL Normal 6.4-10.8 [facility] Comment on above: Performed By: #### 2 [id number] #### [facility] [address] [place] [address] Platelets (Bld) [#/Vol] 201.0 E9/L Normal 150.0-500.0 [facility] Comment on above: Performed By: #### 2 817164 #### [facility] [address] [place] [address] RBC (Bld) [#/Vol] 6.1 E12/L High 4.3-5.9 [facility] Comment on above: Performed By: #### 2 [id number] #### [facility] [facility] [address] [place] [address] WBC corrected for nucl RBC Auto (Bld) [#/Vol] 8.6 E9/L Normal 4.0-11.0 [facility] Heme Comment on above: Performed By: #### 2 [id number] #### [facility] [address] [place] [address] CHEMISTRYOrdered By: SYSTEM SYSTEM on 03-01-2024 Urea nitrogen/Creatinine [Mass ratio] 15 mg/mg Normal 10 - 20 [facility] Chem Estimated glomerular filtrat ion rate (GFR) non- Americanon 03-01-2024 GFR/1.73 sq M.predicted among non-blacks MDRD (S/P/Bld) [Vol rate/Area] 62 mL/min/1.73 m2 >=59 [facility] HEMATOLOGYOrdered By: SYSTEM SYSTEM on 03-01-2024 Monocytes/100 WBC (Bld) 7.0 % Normal 4.0 - 14.0 % [facility] Laboratory - Chemistry and C hemistry - challengeon 03-01-2024 TSH Qn 1.67 m[IU]/L 0.34-5.60 [facility] - Hematology and Cell countson 03-01-2024 HbA1c (Bld) [Mass fraction] 8.5 % High <=5.9 [facility] No Panel Informationon 03-01 BUN/Creatinine Ratio 15 No Units 10-20 [facility] PSA Screen, TotalOrdered By: SYSTEM SYSTEM on 03-01-2024 Prostate specific Ag [Mass/Vol] 0.8 ng/mL Normal 0.1-3.5 [facility] Chem Comment on above: Interpretive Data: T he concentration of PSA determined by different manufacturers can vary due to differences in assay methods and reagent specificity. Values obtained from different assay methods cannot be used interchangeably. The methodology used for this result was chemiluminescence using [employer] Access Hybritech PSA reagent. Result Comment: The concentration of PSA determined by different manufacturers can vary due to differences in assay methods and reagent specificity. Values obtained from different assay methods cannot be used interchangeably. The methodology used for this result was chemiluminescence using [employer] Access Hybritech PSA reagent. Performed By: #### 1 [id number] #### [facility] [address] [place] [address] Physician Orderon 03-01-2024 Physician Order [id number] 2#1.00TIFF Normal [facility] eGFROrdered By: SYSTEM [employer] on 03-01-2024 eGFR 62 mL/min/1.73 m2 Normal >=59 [facility] Chem Comment on above: Order Comment: Order added by Discern Expert. Performed By: #### 1 [id number] #### [facility] [address] [place] [address] Ambulatory Visit Summaryon 0 02-09-2024 Ambulatory Visit Summary JOHNATHAN AMBROSIO :1960 Visit Date:02/09/2024 Ambulatory Visit Instructions Your Diagnosis Hypogonadism male Your Care Team Attending Physician - HARRY MARQUEZ PA-C Primary Care Physician - LUIS JEFFREY MD This Is Your Medications List [...] AM EDT With: Where: [facility] Normal [address] [place] [address]- \.br\ Medications\.br\ What How Much When Why [...] for choosing us for your care.\.br\ \.br\ [facility] Ambulatory Visit Summaryon 0 01-25-2024 Ambulatory Visit Summary JOHNATHAN AMBROSIO :1960 Visit Date:01/25/2024 Ambulatory Visit Instructions Your Diagnosis ED (erectile dysfunction) Hypogonadism male Your Care Team Attending Physician - HARRY MARQUEZ PA-C Primary Care Physician - LUIS JEFFREY MD This Is Your Medications List [...] AM EDT With: Where: [facility] Normal [address] [place] [address]- \.br\ Medications\.br\ What How Much When Why [...] Hypogonadism male ED (erectile dysfunction) Pickup at [facility]/pharmacy #[id number]\.br\ Pharmacy Information\.br\ [facility]/pharmacy #[id number]: [address], [place] [id number] [phone]\.br\ Medications and Immunizations Administered\.br\ Given\.br\ Depo-Testosterone 200 mg/mL intramuscular solution, 100 mg, IntraMuscular\.br \ Allergies\.br\ metFORMIN (Stomach cramps, Diarrhea)\.br\ Problems\.br\ Ongoing [...] for choosing us for your care.\.br\ \.br\ [facility] Ambulatory Visit Summaryon 0 01-11-2024 Ambulatory Visit Summary JOHNATHAN AMBROSIO :1960 Visit Date:01/11/2024 Ambulatory Visit Instructions Your Diagnosis Hypogonadism male Your Care Team Attending Physician - JIMMY GRIFFITH, HARRY Blakely Primary Care Physician - LUIS JEFFREY MD This Is Your Medications List [...] What to do next Scheduled Follow-Up Appointments Wednesday. 2023 8:45 AM EDT With: Where: [facility] Normal [address] [place] [address] \.br\ Medications\.br\ What How Much When Why [...] for choosing us for your care.\.br\ \.br\ [facility] Ambulatory Visit Summaryon 0 12-28-2023 Ambulatory Visit Summary JOHNATHAN AMBROSIO :1960 Visit Date:12/28/2023 Ambulatory Visit Instructions Your Diagnosis Hypogonadism male Your Care Team Attending Physician - HARRY MARQUEZ PA-C Primary Care Physician - LUIS JEFFREY MD This Is Your Medications List [...] What to do next Scheduled Follow-Up Appointments Wednesday. 2023 8:30 AM EDT With: Where: [facility] Normal [address] [place] [address] [place] [address]- \.br\ Medications\.br\ What How Much When Why [...] for choosing us for your care.\.br\ \.br\ [facility] Ambulatory Visit Summaryon 0 12-14-2023 Ambulatory Visit Summary HOSEA AMBROSIOFRANCISCA Valentino :1960 Visit Date:12/14/2023 Ambulatory Visit Instructions Your Diagnosis Hypogonadism male Your Care Team Attending Physician - HARRY MARQUEZ PA-C Primary Care Physician - LUIS JEFFREY MD This Is Your Medications List [...] Follow-Up Appointments Wednesday 10:00 AM EDT With: Where: [facility] Normal [address] [place] [address]- \.br\ Medications\.br\ What How Much When Why [...] for choosing us for your care.\.br\ \.br\ [facility] Basophils Auto (Bld) [#/Vol] on 12-01-2023 Basophils (Bld) [#/Vol] 0.1 10 3/uL 0.0-0.1 [facility] Basophils/100 WBC Auto (Bld) on 12-01-2023 Basophils/100 WBC (Bld) 0.8 % 0.2-2.0 [facility] Cholesterol in LDL Calc [Mas s/Vol]on 12-01-2023 Cholesterol in LDL [Mass/Vol] 69.0 mg/dL [facility] Comment on above: <100 mg/dl [id number] 0-129 mg/dl NEAR OR ABOVE [id number] mg/dl BORDERLINE [id number] mg/dl HIGH>190 mg/dl VERY HIGH Cholesterol in VLDL Calc [Ma ss/Vol]on 12-01-2023 Cholesterol in VLDL [Mass/Vol] 15.2 mg/dL [facility] Eosinophils/100 WBC Auto (Bl d)on 12-01-2023 Eosinophils/100 WBC (Bld) 5.6 % 0.9-7.0 [facility] Erythrocyte distribution wid th Auto (RBC) [Ratio]on 12-01-2023 Erythrocyte distribution width (RBC) [Ratio] 15.8 % 11.0-15.0 [facility] Estimated glomerular filtrat ion rate (GFR) non- Americanon 12-01-2023 GFR/1.73 sq M.predicted among non-blacks MDRD (S/P/Bld) [Vol rate/Area] mL/min/{1.73_m2} >=60 [facility] Globulin Calc (S) [Mass/Vol] on 12-01-2023 Globulin (S) [Mass/Vol] 3.5 g/dL [facility] Glucose mean value [Mass/vol ume] in Blood Estimated from glycated hemoglobinon 12-01-2023 Average glucose Estimated from glycated hemoglobin (Bld) [Mass/Vol] 209 mg/dL [facility] Hematocrit Auto (Bld) [Volum e fraction]on 12-01-2023 Hematocrit (Bld) [Volume fraction] 47.7 % 42.0-54.0 [facility] Hemoglobin [Mass/volume] in Bloodon 12-01-2023 Hemoglobin (Bld) [Mass/Vol] 15.7 g/dL 14.0-18.0 [facility] Laboratory - Chemistry and C hemistry - challengeon 12-01-2023 Albumin [Mass/Vol] 3.7 g/dL 3.4-5.0 [facility] ALP [Catalytic activity/Vol] 67 U/L 46-116 [facility] ALT [Catalytic activity/Vol] 24 U/L 16-63 [facility] AST [Catalytic activity/Vol] 28 U/L 15-37 [facility] Bilirubin [Mass/Vol] 0.9 mg/dL 0.2-1.0 [facility] Calcium [Mass/Vol] 8.7 mg/dL 8.5-10.1 [facility] Chloride [Moles/Vol] 101 mmol/L 98-107 [facility] Cholesterol [Mass/Vol] 120 mg/dL <=200 [facility] Cholesterol in HDL [Mass/Vol] 36 mg/dL 40-60 [facility] Comment on above: > or =60 mg/dl - LOW CARDIOVASCULAR RISK<40 mg/dl - HIGH CARDIOVASCULAR RISK CO2 [Moles/Vol] 28.9 mmol/L 21.0-32.0 [facility] Creatinine [Mass/Vol] 1.19 mg/dL 0.70-1.30 [facility] GFR/1.73 sq M.predicted MDRD (S/P/Bld) [Vol rate/Area] mL/min/{1.73_m2} >=60 [facility] Glucose [Mass/Vol] 152 mg/dL 74-106 [facility] Potassium [Moles/Vol] 4.5 mmol/L 3.5-5.1 [facility] Protein [Mass/Vol] 7.2 g/dL 6.4-8.2 [facility] Sodium [Moles/Vol] 138 mmol/L 136-145 [facility] Triglyceride [Mass/Vol] 76 mg/dL <=150 [facility] Urea nitrogen [Mass/Vol] 23.0 mg/dL 7.0-18.0 [facility] Urea nitrogen/Creatinine [Mass ratio] 19.3 mg/mg [facility] Laboratory - Hematology and Cell countson 12-01-2023 HbA1c (Bld) [Mass fraction] 8.9 % 4.5-6.2 [facility] Comment on above: ADA RECOMMENDED LIMI T 4.0 - 6.0ADA THERAPEUTIC TARGET < 7.0ACTION SUGGESTED> 7.0 Immature granulocytes/100 WBC (Bld) 0.2 % 0.0-0.5 [facility] Leukocytes [#/volume] correc rosalinda for nucleated erythrocytes in Blood by Automated counon 12-01-2023 WBC corrected for nucl RBC Auto (Bld) [#/Vol] 8.5 10 3/uL 4.0-11.0 [facility] Lymphocytes Auto (Bld) [#/Vo l]on 12-01-2023 Lymphocytes (Bld) [#/Vol] 1.6 10 3/uL 1.2-3.8 [facility] Lymphocytes/100 WBC Auto (Bl d)on 12-01-2023 Lymphocytes/100 WBC (Bld) 19.2 % 20.5-60.0 [facility] MCH Auto (RBC) [Entitic mass ]on 12-01-2023 MCH (RBC) [Entitic mass] 26.2 pg 25.9-34.0 [facility] MCHC Auto (RBC) [Mass/Vol]on 12-01-2023 MCHC (RBC) [Mass/Vol] 32.9 g/dL 29.9-35.2 [facility] MCV Auto (RBC) [Entitic vol] on 12-01-2023 MCV (RBC) [Entitic vol] 79.6 fL 80.0-94.0 [facility] Monocytes Auto (Bld) [#/Vol] on 12-01-2023 Monocytes (Bld) [#/Vol] 0.7 10 3/uL 0.3-0.8 [facility] Monocytes/100 WBC Auto (Bld) on 12-01-2023 Monocytes/100 WBC (Bld) 7.6 % 1.7-12.0 [facility] Neutrophils Auto (Bld) [#/Vo l]on 12-01-2023 Neutrophils (Bld) [#/Vol] 5.7 10 3/uL 1.4-6.5 [facility] Neutrophils/100 WBC Auto (Bl d)on 12-01-2023 Neutrophils/100 WBC (Bld) 66.6 % 43.0-75.0 [facility] No Panel Informationon 11-30 Eosinophils # (Auto) 0.5 10 3/uL 0.0-0.7 [facility] Immature Granulocyte # (Auto) 0.02 10 3/uL 0.00-0.03 [facility] Prostate Specific Antigen Screen 1.21 ng/mL <=4.00 [facility] Platelet mean volume Auto (B ld) [Entitic vol]on 12-01-2023 Platelet mean volume (Bld) [Entitic vol] 11.1 fL 9.5-13.5 [facility] Platelets Auto (Bld) [#/Vol] on 12-01-2023 Platelets (Bld) [#/Vol] 216 10 3/uL 150-450 [facility] RBC Auto (Bld) [#/Vol]on RBC (Bld) [#/Vol] 5.99 10 6/uL 4.70-6.10 [facility] Serum or plasma albumin/glob ulin mass ratioon 12-01-2023 Albumin/Globulin [Mass ratio] 1.1 {ratio} [facility] Serum or plasma anion gap de terminationon 12-01-2023 Anion gap [Moles/Vol] 12.6 mmol/L [facility] Serum or plasma total choles terol/high density lipoprotein (HDL) cholesterol mass aydin 12-01-2023 Cholesterol.total/Ch olesterol in HDL [Mass ratio] 3.3 {ratio} [facility] Comment on above: 3.3 - 4.4 LOW RISK4. 4 - 7.1 AVERAGE RISK7.1 - 11.0 MODERATE RISK>11.0 HIGH RISK Ambulatory Visit Summaryon 0 11-30-2023 Ambulatory Visit Summary JOHNATHAN AMBROSIO :1960 Visit Date:11/30/2023 Ambulatory Visit Instructions Your Diagnosis Hypogonadism male Your Care Team Attending Physician - JIMMY GRIFFITH, HARRY Blakely Primary Care Physician - LUIS JEFFREY MD This Is Your Medications List [...] AM EDT With: Where: [facility] Normal [address] [place] [address]- \.br\ Medications\.br\ What How Much When Why [...] for choosing us for your care.\.br\ \.br\ [facility] Ambulatory Visit Summaryon 0 11-16-2023 Ambulatory Visit Summary JOHNATHAN AMBROSIO :1960 Visit Date:11/16/2023 Ambulatory Visit Instructions Your Diagnosis Hypogonadism male Your Care Team Attending Physician - Carlos LIZAMA, Lety Scott Primary Care Physician - LUIS JEFFREY MD This Is Your Medications List [...] AM EDT With: Where: [facility] Normal [address] [place] [address]- \.br\ Medications\.br\ What How Much When Why [...] for choosing us for your care.\.br\ \.br\ [facility] Ambulatory Visit Summaryon 0 10-20-2023 Ambulatory Visit Summary JOHNATHAN AMBROSIO :1960 Visit Date:10/20/2023 Ambulatory Visit Instructions Your Diagnosis Hypogonadism male Your Care Team Attending Physician - Carlos LIZAMA, Lety Scott Primary Care Physician - WOJCIECH LIZAMA, LUIS This Is Your Medications List amlodipine (amLODIPine [...] AM EST With: Where: [facility] Normal [address] [place] [address]- \.br\ Medications\.br\ What How Much When Why [...] for choosing us for your care.\.br\ \.br\ [facility] Ambulatory Visit Summaryon 0 09-29-2023 Ambulatory Visit Summary JOHNATHAN AMBROSIO :1960 Visit Date:09/29/2023 Ambulatory Visit Instructions Your Diagnosis ED (erectile dysfunction) Your Care Team Attending Physician - Carlos LIZAMA, Lety Scott Primary Care Physician - LUIS JEFFREY MD This Is Your Medications List [...] Follow-Up Appointments Wednesday 10:00 AM EDT With: Carlos LIZAMA, Lety Scott Where: [facility] Ambulatory Visit Summaryon 0 09-15-2023 Ambulatory Visit Summary JOHNATHAN AMBROSIO :1960 Visit Date:09/15/2023 Ambulatory Visit Instructions Your Diagnosis Hypogonadism male ED (erectile dysfunction) BPH without urinary obstruction Tests Performed Urnls Dip Stick Auto w/o Microscopy POC 19088 Your Care Team Attending Physician - Carlos LIZAMA, Lety Scott Primary Care Physician - LUIS JEFFREY MD This Is Your Medications List [...] AM EST With: Where: [facility] Normal [address] [place] [address]- \.br\ You Need to Schedule the Following Appointments\.br\ Follow Up with Carlos LIZAMA, Lety Scott, URL, URO When: \.br\ Comments:\.br\ 3 mos w/ PSA, T level, and HCT\.br\ Where:\.br\ [address]br\ [place] [address].br\ [phone]\.br\ You Need to Complete the Following\.br\ Hematocrit, [...] exceed 20mg within 24 hours. Pickup at [facility]\.br\ Unchanged amlodipine (amLODIPine 5 mg Tab) [...] if questions or concerns \.br\ Pharmacy Information\.br\ [facility]: [address], [place] [id number] [phone]\.br\ Test Results\.br\ Urnls Dip Stick Auto w/o Microscopy POC 88778 (09/15/2023)\.br\ Bilirubin Urine Dipstick - Negative\.br\ Blood Urine Dipstick - Trace-intact\.br\ Glucose Urine Dipstick - 3+ 1000 mg/dl\.br\ Ketones Urine Dipstick - Negative\.br\ Leukocytes Urine Dipstick - Negative\.br\ Nitrite Urine Dipstick - Negative\.br\ Protein Urine Dipstick - Negative\.br\ Specific [place] Urine Dipstick - 1.015\.br\ Urine Appearance Urine [...] Doing a sleep study at home to [facility] Patient Educationon 09-15-19 Patient Education Urology Erectile Dysfunction Erectile dysfunction [...] these instructions at home: Medicines ? Take ejxg-jdl-kthdnpk and prescription medicines only as told by [...] include cig (more content not included)... Normal [facility] Urology Office/Clinic Noteon 09-15-2023 Urology [...] Cialis. Rx sent again to [facility] in [place]. Risks/benefits discussed. -Diet and exercise 3. BPH [...] to appt) Follow-up With When Contact Information Lety Gonzalez MD, URL, URO [address], [place] [phone] Additional Instructions: 3 mos w/ PSA, T level, and HCT Patient Education Erectile Dysfunction I, Amelia Winslow, personally scribed for Dr. Gonzalez on 09/15/2023 08:37:11. . Documentation recorded by the scribe, Amelia Winslow, accurately reflects the services(s) I performed and [...] oral ta (more content not included)... Normal [facility] Comment on above: Result Comment: Elec tronically Signed By: Lety Gonzalez MD\.br\Date and Time Signed: 09/15/23 08:41 EST\.br\Electronically Co-Signed By: Amelia Winslow\.br\Date and Time Co-Signed: 09/15/23 08:37 EST Testost Totalon 09-10-2023 Testosterone [Mass/Vol] 478 ng/dL Invalid Interpretation Code [id number] [facility] Comment on above: Result Comment: Adul t male reference interval is based on a population of healthy nonobese males (BMI <30) between 19 and 39 years old. irina Lester.al. JCEM 2017,102;8754-3186. PMID: [id number]. Performed at: [address] [id number] PhD Arianne Fonseca Performed By: #### [id number] ####[facility] [address] [place] [address] Ambulatory Visit Summaryon 0 09-09-2023 Ambulatory Visit Summary JOHNATHAN AMBROSIO :1960 Visit Date:09/08/2023 Ambulatory Visit Instructions Your Diagnosis Low testosterone Your Care Team Attending Physician - Lety Gonzalez MD Primary Care Physician - LUIS JEFFREY MD This Is Your Medications List [...] Lety Gonzalez MD Where: [facility] [place] Normal [facility] Ambulatory Visit Summaryon 1 11-02-2022 Ambulatory Visit Summary JOHNATHAN AMBROSIO :1960 Visit Date:09/01/2023 Ambulatory Visit Instructions Your Diagnosis Hypogonadism male Your Care Team Attending Physician - Lety Gonzalez MD Primary Care Physician - LUIS JEFFREY MD This Is Your Medications List [...] Lety Gonzalez MD Where: [facility] Ambulatory Visit Summaryon 10-04-2022 Ambulatory Visit Summary JOHNATHAN AMBROSIO :1960 Visit Date:08/04/2023 Ambulatory Visit Instructions Your Diagnosis Hypogonadism male Your Care Team Attending Physician - Lety Gonzalez MD Primary Care Physician - LUIS JEFFREY MD This Is Your Medications List [...] AM EST With: [facility]: [facility] Normal [address] [place] [address] \.br\ Medications\.br\ What How Much When Why [...] for choosing us for your care.\.br\ \.br\ [facility] Ambulatory Visit Summaryon 09-20-2022 Ambulatory Visit Summary JOHNATHAN AMBROSIO :1960 Visit Date:07/21/2023 Ambulatory Visit Instructions Your Diagnosis ED (erectile dysfunction) Your Care Team Attending Physician - Carlos LIZAMA, Lety Scott Primary Care Physician - LUIS JEFFREY MD This Is Your Medications List [...] AM EST With: Where: [facility] Invalid Interpretation Code [address] [place] [address]- \.br\ Wednesday 8:00 AM EST \.br\ With: Carlos LIZAMA, Lety Scott\.br\ Where: [facility] Ambulatory Visit Summaryon 09-06-2022 Ambulatory Visit Summary JOHNATHAN AMBROSIO :1960 Visit Date:07/07/2023 Ambulatory Visit Instructions Your Diagnosis Hypogonadism male Your Care Team Attending Physician - Carlos LIZAMA, Lety Scott Primary Care Physician - LUIS JEFFREY MD This Is Your Medications List [...] AM EST With: Where: [facility] Invalid Interpretation Code [address] [place] [address]- \.br\ Wednesday 8:00 AM EST \.br\ With:\.br\ Where: [facility] Ambulatory Visit Summaryon 1 Ambulatory Visit Summary JOHNATHAN AMBROSIO :1960 Visit Date:06/23/2023 Ambulatory Visit Instructions Your Diagnosis ED (erectile dysfunction) Your Care Team Attending Physician - Carlos LIZAMA, Lety Scott Primary Care Physician - LUIS JEFFREY MD This Is Your Medications List [...] AM EDT With: Where: [facility] Invalid Interpretation Code [address] [place] [address] [place] [address]- \.br\ Wednesday 8:00 AM EST \.br\ With:\.br\ Where: [facility] Ambulatory Visit Summaryon Ambulatory Visit Summary HEBERT, JOHNATHAN Chelsy :1960 Visit Date:06/09/2023 Ambulatory Visit Instructions Your Diagnosis Hypogonadism male BPH without urinary obstruction ED (erectile dysfunction) Tests Performed Urnls Dip Stick Auto w/o Microscopy POC 66106 Your Care Team Attending Physician - Carlos LIZAMA, Lety Scott Primary Care Physician - LUIS JEFFREY MD This Is Your Medications List [...] AM EDT With: Where: [facility] Normal [address] [place] [address] \.br\ You Need to Schedule the Following [...] exceed 20mg within 24 hours. Pickup at [facility]/pharmacy #[id number]\.br\ Changed testosterone (Depo-Testosteron e 200 mg/ mL intramuscular solution) 200 Milligram Intramuscular Every other week Hypogonadism male ED (erectile dysfunction) Pickup at [facility]/pharmacy #[id number]\.br\ Unchanged amlodipine (amLODIPine 5 mg Tab) By [...] if questions or concerns \.br\ Pharmacy Information\.br\ [facility]/pharmacy #[id number]: [address], [place] [phone] [phone]\.br\ \.br\ What How Much When Comments\.br\ Stop Taking sildenafil (Viagra 100 mg Tab) 1 Tablets By Mouth As Directed as needed for for erectile dysfunction 1 hour before sexual activity. Start with 1/ 2 tablet. Not to exceed 1 tab (100 mg) in 24 hours \.br\ Test Results\.br\ Urnls Dip Stick Auto w/o Microscopy POC 28303 (06/09/2023)\.br\ Bilirubin Urine Dipstick - Negative\.br\ Blood Urine Dipstick - Negative\.br\ Glucose Urine Dipstick - 3+ 1000 mg/dl\.br\ Ketones Urine Dipstick - Negative\.br\ Leukocytes Urine Dipstick - Negative\.br\ Nitrite Urine Dipstick - Negative\.br\ Protein Urine Dipstick - Negative\.br\ Specific [place] Urine Dipstick - 1.010\.br\ Urine Appearance Urine [...] symptoms before putting you on testosterone repla [facility] Patient Educationon 06-09-20 Patient Education Urology Hypogonadism, [...] Follow these instructions at home: ? Take dulz-cli-qkdpwbn and prescription medicines only as told by [...] 04/24/2021 Document (more content not included)... Normal [facility] Screenson 06-09-2023 Screens [id number] #1.00CD:127 Normal [facility] Screens [id number] #1.00CD:127 Normal [facility] Urology Office/Clinic Noteon 06-09-2023 Urology Office/Clinic Note [...] 06/09/2023 08:22:33. . Documentation recorded by the scribe, Judith [...] Tab, O (more content not included)... Normal [facility] Comment on above: Result Comment: Elec tronically Signed By: Lety Gonzalez MD\.br\Date and Time Signed: 06/09/23 14:47 EDT\.br\Electronically Co-Signed By: Judith Bell\.br\Date and Time Co-Signed: 06/09/23 08:22 EDT Lab [facility] 06-04-2023 Lab Reports [id number] #1.00CD:127 Normal [facility] Lab Reports [id number]# 1.00CD:127 [facility] Ambulatory Visit Summaryon 0 06-02-2023 Ambulatory Visit Summary JOHNATHAN AMBROSIO :1960 Visit Date:06/02/2023 Ambulatory Visit Instructions Your Care Team Attending Physician - Lety Gonzalez MD Primary Care Physician - LUIS JEFFREY MD This Is Your Medications List [...] Follow-Up Appointments Wednesday 8:45 AM EDT With: Carlos LIZAMA, Lety Scott Where: [facility] Lab Reportson 06-02-2023 Lab Reports [id number] #1.00CD:127 [facility] Ambulatory Visit Summaryon 0 05-12-2023 Ambulatory Visit Summary JOHNATHAN AMBROSIO :1960 Visit Date:05/12/2023 Ambulatory Visit Instructions Your Diagnosis ED (erectile dysfunction) Your Care Team Attending Physician - Lety Gonzalez MD Primary Care Physician - LUIS JEFFREY MD This Is Your Medications List [...] AM EDT With: Where: [facility] Invalid Interpretation Code [address] [place] [address]- \.br\ Wednesday 8:45 AM EDT \.br\ With: Lety Gonzalez MD\.br\ Where: [facility] Ambulatory Visit Summaryon 0 04-28-2023 Ambulatory Visit Summary JOHNATHAN AMBROSIO :1960 Visit Date:04/28/2023 Ambulatory Visit Instructions Your Diagnosis Hypogonadism male Your Care Team Attending Physician - Carlos LIZAMA, Lety Scott Primary Care Physician - LUIS JEFFREY MD This Is Your Medications List [...] 8:00 AM EDT With: Where: [facility] Invalid Interpretation Code [address] [place] [address]- \.br\ Wednesday 8:45 AM EDT \.br\ With: Lety Gonzalez MD\.br\ Where: [facility] Ambulatory Visit Summaryon 0 04-14-2023 Ambulatory Visit Summary JOHNATHAN AMBROSIO :1960 Visit Date:04/14/2023 Ambulatory Visit Instructions Your Diagnosis Hypogonadism male Your Care Team Attending Physician - Carlos LIZAMA, Lety Scott Primary Care Physician - LUIS JEFFREY MD This Is Your Medications List [...] AM EDT With: Where: [facility] Invalid Interpretation Code [address] [place] [address]- \.br\ Wednesday 8:00 AM EDT \.br\ With:\.br\ Where: [facility] Ambulatory Visit Summaryon 0 03-17-2023 Ambulatory Visit Summary JOHNATHAN AMBROSIO :1960 Visit Date:03/17/2023 Ambulatory Visit Instructions Your Diagnosis Hypogonadism male Your Care Team Attending Physician - Carlos LIZAMA, Lety Scott Primary Care Physician - LUIS JEFFREY MD This Is Your Medications List [...] AM EDT With: Where: [facility] Normal [address] [place] [address] [place] [address]- \.br\ You Need to Schedule the Following Appointments\.br\ Follow Up with Carlos LIZAMA, Lety Scott, SHAYY, URO When: In 2 weeks\.br\ Comments:\.br\ Will return in 2wks for next injection.\.br\ Will see Dr Gonzalez end may with PSA T & HCT & HGB.\.br\ Where:\.br\ [address]\.br\ [place] [address]\.br\ Medications\.br\ What How Much When Instructions\.br\ Unchanged [...] pain\.br\ Hypogonadism male\.br\ Low testosterone\.br\ Nocturia\.br\ \.br\ [facility] Nurse Consultation Noteon Nurse Consultation Note Reason for Visit Testosterone Injection Assessment/Plan 1. Hypogonadism male (E29.1: Testicular hypofunction) 150mg/ 0.75ml Tesosterone IM Injection given in Rt Deltoid. Pt tolerated well. Will return in 2wks for next injection. Will see Dr Gonzalez end of May with [...] Daily Allergies metFORMIN (Stomach cramps, Diarrhea) Normal [facility] CHEMISTRYOrdered By: SYSTEM SYSTEM on 02-24-2023 Prostate specific Ag [Mass/Vol] 3.6 ng/mL High 0.1 - 3.5 ng/mL [facility] Remisol HEMATOLOGYOrdered By: Emily Churchill on 02-24-2023 Hematocrit (Bld) [Volume fraction] 46.7 % Normal 37.7 - 49.0 % [facility] HemeAutoSS Hemoglobin (Bld) [Mass/Vol] 15.6 g/dL Normal 13.5 - 17.5 gm/dL [facility] HemeAutoSS Falls Screening (Age 18+)on 12-22-2022 Fall risk assessment c) Not medically indicated -[facility] [address] DO Work Phone: Tobacco use status CPHS b) No -[facility] [address] DO Work Phone: Falls Screening (Age 18+) Yes [facility] [address] DO Work Phone: CBC AUTO DIFFon 12-17-2022 BASO # 0.1 103/ul Normal 0.0-0.1 [facility] Comment on above: Performed By: #### C VDTBH #### [facility] [address] [address] [address] Talia Plascencia Basophils/100 WBC (Bld) 0.6 % Normal 0.2-2.0 [facility] Comment on above: Performed By: #### C VDTBH #### [facility] [address] [place] [address] Dr. Talia Plascencia EO # 0.5 103/ul Normal 0.0-0.7 [facility] Comment on above: Performed By: #### C VDTBH #### [facility] [address] [address] [address] Talia Plascencia Eosinophils/100 WBC (Bld) 5.4 % Normal 0.9-7.0 [facility] Comment on above: Performed By: #### C VDTBH #### [facility] [address] [place] [address] Dr. Talia Plascencia Erythrocyte distribution width (RBC) [Ratio] 15.6 % Critically high 11.0-15.0 [facility] Comment on above: Performed By: #### C VDTBH #### [facility] [address] [address] [address] Talia Plascencia Hematocrit (Bld) [Volume fraction] 45.6 % Normal 42.0-54.0 [facility] Comment on above: Performed By: #### C VDTBH #### [facility] [address] [place] [address] Dr. Talia Plascencia Hemoglobin (Bld) [Mass/Vol] 15.8 g/dL Normal 14.0-18.0 [facility] Comment on above: Performed By: #### C VDTBH #### [facility] [address] [place] [address] Dr. Talia Plascencia IG # 0.02 10e3/ul Normal 0.00-0.03 [facility] Comment on above: Performed By: #### C VDTBH #### [facility] [address] [place] [address] Dr. Talia Plascencia IG % 0.2 % Normal 0.0-0.5 [facility] Comment on above: Performed By: #### C VDTBH #### [facility] [address] [place] [address] Dr. Talia Plascencia LYMPH # 1.8 103/ul Normal 1.2-3.8 [facility] Comment on above: Performed By: #### C VDTBH #### [facility] [address] [place] [address] Dr. Talia Plascencia Lymphocytes/100 WBC (Bld) 22.0 % Normal 20.5-60.0 [facility] Comment on above: Performed By: #### C VDTBH #### [facility] [address] [place] [address] Dr. Talia Plascencia MANUAL DIFF REQ NO Normal [facility] Comment on above: Performed By: #### C VDTBH #### [facility] [address] [place] [address] Dr. Talia Plascencia MCH (RBC) [Entitic mass] 27.4 pg Normal 25.9-34.0 [facility] Comment on above: Performed By: #### C VDTBH #### [facility] [address] [place] [address] Dr. Talia Plascencia MCHC (RBC) [Mass/Vol] 34.6 g/dL Normal 29.9-35.2 [facility] Comment on above: Performed By: #### C VDTBH #### [facility] [address] [place] [address] Dr. Talia Plascencia MCV (RBC) [Entitic vol] 79.2 fL Critically low 80.0-94.0 [facility] Comment on above: Performed By: #### C VDTBH #### [facility] [address] [place] [address] Dr. Talia Plascencia MONO # 0.7 103/ul Normal 0.3-0.8 [facility] Comment on above: Performed By: #### C VDTBH #### [facility] [address] [place] [address] Dr. Talia Plascencia Monocytes/100 WBC (Bld) 7.9 % Normal 1.7-12.0 [facility] Comment on above: Performed By: #### C VDTBH #### [facility] [address] [place] [address] Dr. Talia Plascencia NEUT # 5.3 103/ul Normal 1.4-6.5 [facility] Comment on above: Performed By: #### C VDTBH #### [facility] [address] [place] [address] Dr. Talia Plascencia Neutrophils/100 WBC (Bld) 63.9 % Normal 43.0-75.0 [facility] Comment on above: Performed By: #### C VDTBH #### [facility] [address] [place] [address] Dr. Talia Plascencia Platelet mean volume (Bld) [Entitic vol] 10.8 fL Normal 9.5-13.5 [facility] Comment on above: Performed By: #### C VDTBH #### [facility] [address] [place] [address] Dr. Talia Plascencia PLT 218 103/ul Normal 150-450 [facility] Comment on above: Performed By: #### C VDTBH #### [facility] [address] [address] [address] Talia Plascencia RBC 5.76 106/ul Normal 4.70-6.10 [facility] Comment on above: Performed By: #### C VDTBH #### [facility] [address] [address] [address] Talia Plascencia WBC 8.3 103/ul Normal 4.0-11.0 [facility] Comment on above: Performed By: #### C VDTBH #### [facility] [address] [address] [address] Talia Plascencia GLYCOHEMOGLOBIN A1Con 2022 ADA RECOMMENDATION SEE BELOW Normal [facility] Comment on above: Result Comment: ADA RECOMMENDED LIMIT 4.0 - 6.0 ADA THERAPEUTIC TARGET < 7.0 ACTION SUGGESTED > 7.0 Performed By: #### I NFLUAB #### [facility] [address] [place] [address] Dr. Talia Plascencia Glucose [Mass/Vol] 203 mg/dL Normal [facility] Comment on above: Performed By: #### I NFLUAB #### [facility] [address] [place] [address] Dr. Talia Plascencia HbA1c (Bld) [Mass fraction] 8.7 % Critically high 4.5-6.2 [facility] Comment on above: Performed By: #### I NFLUAB #### [facility] [address] [place] [address] Dr. Talia Plascencia LIPID PROFILEon 12-17-2022 CHOL-HDL RATIO NORM SEE BELOW Normal [facility] Comment on above: Result Comment: 3.3 - 4.4 LOW RISK 4.4 - 7.1 AVERAGE RISK 7.1 - 11.0 MODERATE RISK >11.0 HIGH RISK Performed By: #### P OCGLUC #### [facility] [address] [place] [address] Dr. Talia Plascencia Cholesterol [Mass/Vol] 120 mg/dL Normal <=200 [facility] Comment on above: Performed By: #### P OCGLUC #### [facility] [address] [address] [address] Talia Plascencia Cholesterol in HDL [Mass/Vol] 28 mg/dL Critically low 40-60 [facility] Comment on above: Performed By: #### P OCGLUC #### [facility] [address] [address] [address] Talia Plascencia Cholesterol in LDL [Mass/Vol] 67.6 mg/dL Normal [facility] Comment on above: Performed By: #### P OCGLUC #### [facility] [address] [address] [address] Talia Plascencia Cholesterol.total/Ch olesterol in HDL [Mass ratio] 4.3 {ratio} Normal [facility] Comment on above: Performed By: #### P OCGLUC #### [facility] [address] [address] [address] Talia Plascencia HDL NORMAL > or = 60 mg/dl - LOW CARDIOVASCULAR RISK <40 mg/dl - HIGH CARDIOVASCULAR RISK Normal [facility] Comment on above: Performed By: #### P OCGLUC #### [facility] [address] [address] [address] Talia Plascencia LDL CALC NORMAL SEE BELOW Normal [facility] Comment on above: Result Comment: <100 mg/dl OPTIMAL 100 - 129 mg/dl NEAR OR ABOVE OPTIMAL 130 - 159 mg/dl BORDERLINE HIGH 160 - 189 mg/dl HIGH >190 mg/dl VERY HIGH Performed By: #### P OCGLUC #### [facility] [address] [address] [address] Talia Plascencia Triglyceride [Mass/Vol] 122 mg/dL Normal <=150 [facility] Comment on above: Performed By: #### P OCGLUC #### [facility] [address] [address] [address] Talia Plascencia VLDL CALC 24.4 mg/dL Normal [facility] Comment on above: Performed By: #### P OCGLUC #### [facility] [address] [address] [address] Talia Plascencia PROF 14(COMP METB)on 023 Albumin [Mass/Vol] 3.8 g/dL Normal 3.4-5.0 [facility] Comment on above: Performed By: #### P OCGLUC #### [facility] [address] [place] [address] Dr. Talia Plascencia Albumin/Globulin [Mass ratio] 1.0 {ratio} Normal [facility] Comment on above: Performed By: #### P OCGLUC #### [facility] [address] [address] [address] Talia Plascencia ALP [Catalytic activity/Vol] 73 U/L Normal 46-116 [facility] Comment on above: Performed By: #### P OCGLUC #### [facility] [address] [place] [address] Dr. Talia Plascencia ALT [Catalytic activity/Vol] 22 U/L Normal 16-63 [facility] Comment on above: Performed By: #### P OCGLUC #### [facility] [address] [place] [address] Dr. Talia Plascencia Anion gap [Moles/Vol] 10.7 mmol/L Normal [facility] Comment on above: Performed By: #### P OCGLUC #### [facility] [address] [place] [address] Dr. Talia Plascencia AST [Catalytic activity/Vol] 31 U/L Normal 15-37 [facility] Comment on above: Performed By: #### P OCGLUC #### [facility] [address] [place] [address] Dr. Talia Plascencia Bilirubin [Mass/Vol] 0.6 mg/dL Normal 0.2-1.0 [facility] Comment on above: Performed By: #### P OCGLUC #### [facility] [address] [place] [address] Dr. Talia Plascencia Calcium [Mass/Vol] 9.5 mg/dL Normal 8.5-10.1 [facility] Comment on above: Performed By: #### P OCGLUC #### [facility] [address] [place] [address] Dr. Talia Plascencia Chloride [Moles/Vol] 102 mmol/L Normal 98-107 [facility] Comment on above: Performed By: #### P OCGLUC #### [facility] [address] [address] [address] Talia Plascencia CO2 [Moles/Vol] 28.9 mmol/L Normal 21.0-32.0 [facility] Comment on above: Performed By: #### P OCGLUC #### [facility] [address] [address] [address] Talia Plascencia Creatinine [Mass/Vol] 1.27 mg/dL Normal 0.70-1.30 [facility] Comment on above: Performed By: #### P OCGLUC #### [facility] [address] [address] [address] Talia Plascencia EGFR-AF KOSOVAN >60 Normal >=60 [facility] Comment on above: Performed By: #### P OCGLUC #### [facility] [address] [address] [address] Talia Plascencia EGFR-NON AF KOSOVAN 57 mL/min/1.73m2 Critically low >=60 [facility] Comment on above: Performed By: #### P OCGLUC #### [facility] [address] [address] [address] Talia Plascencia Globulin (S) [Mass/Vol] 3.9 g/dL Normal [facility] Comment on above: Performed By: #### P OCGLUC #### [facility] [address] [address] [address] Talia Plascencia Glucose [Mass/Vol] 209 mg/dL Critically high 74-106 [facility] Comment on above: Performed By: #### P OCGLUC #### [facility] [address] [address] [address] Talia Plascencia Potassium [Moles/Vol] 4.6 mmol/L Normal 3.5-5.1 [facility] Comment on above: Performed By: #### P OCGLUC #### [facility] [address] [address] [address] Talia Plascencia Protein [Mass/Vol] 7.7 g/dL Normal 6.4-8.2 [facility] Comment on above: Performed By: #### P OCGLUC #### [facility] [address] [address] [address] Talia Plascencia Sodium [Moles/Vol] 137 mmol/L Normal 136-145 [facility] Comment on above: Performed By: #### P OCGLUC #### [facility] [address] [address] [address] Talia Plascencia Urea nitrogen [Mass/Vol] 22.0 mg/dL Critically high 7.0-18.0 [facility] Comment on above: Performed By: #### P OCGLUC #### [facility] [address] [address] [address] Talia Plascencia Urea nitrogen/Creatinine [Mass ratio] 17.3 mg/mg Normal [facility] Comment on above: Performed By: #### P OCGLUC #### [facility] [address] [address] [address] Talia Plascencia HEMATOLOGYOrdered By: SYSTEM SYSTEM on 11-20-2022 Basophils/100 [...] 71.6 % Normal 36.0 - 75.0 % [facility] HemeAutoSS Neutrophils/Leukocyt es Auto (Bld) [Pure # fraction] 6.4 E9/L Normal 2.0 - 7.5 E9/L [facility] HemeAutoSS HEMATOLOGYOrdered By: Lexii Kelly on 11-20-2022 Erythrocyte distribution width (RBC) [Ratio] 16.1 % High 10.9 - 14.2 % [facility] HemeAutoSS Hematocrit (Bld) [Volume fraction] 48.8 % Normal 37.7 - 49.0 % [facility] HemeAutoSS Hemoglobin (Bld) [Mass/Vol] 15.9 g/dL Normal 13.5 - 17.5 gm/dL [facility] HemeAutoSS MCH (RBC) [Entitic mass] 26.6 pg Low 27.0 - 34.0 pg [facility] HemeAutoSS MCHC (RBC) [Mass/Vol] 32.5 g/dL Normal 31.4 - 36.0 gm/dL [facility] HemeAutoSS MCV (RBC) [Entitic vol] 81.9 fL Normal 80.0 - 100.0 fL [facility] HemeAutoSS Platelet mean volume (Bld) [Entitic vol] 9.5 fL Normal 6.4 - 10.8 fL [facility] HemeAutoSS Platelets (Bld) [#/Vol] 205.0 E9/L Normal 150.0 - 500.0 E9/L [facility] HemeAutoSS RBC (Bld) [#/Vol] 6.0 E12/L High 4.3 - 5.9 E12/L [facility] HemeAuto[facility] WBC corrected for nucl RBC Auto (Bld) [#/Vol] 8.9 E9/L Normal 4.0 - 11.0 E9/L [facility] HemeAutoSS XR ABD FLAT UP_PA Rahat 08-05 [...] CARLY PRESCOTT Date: 2022-08-04 23:39 Normal [facility] ACETONE SERUMon 08-04-2022 ACETONE SMALL Abnormal NEGATIVE [facility] Comment on above: Performed By: #### C BCMAN #### [facility] [address] [place] [address] Dr. Talia Plascencia CBC AUTO DIFFon 08-04-2022 BASO # 0.1 103/ul Normal 0.0-0.1 [facility] Comment on above: Performed By: #### C VDTBH #### [facility] [address] [address] [address] Talia Plascencia Basophils/100 WBC (Bld) 0.5 % Normal 0.2-2.0 [facility] Comment on above: Performed By: #### C VDTBH #### [facility] [address] [place] [address] Dr. Talia Plascencia EO # 0.1 103/ul Normal 0.0-0.7 [facility] Comment on above: Performed By: #### C VDTBH #### [facility] [address] [address] [address] Talia Plascencia Eosinophils/100 WBC (Bld) 1.1 % Normal 0.9-7.0 [facility] Comment on above: Performed By: #### C VDTBH #### [facility] [address] [place] [address] Dr. Talia Plascencia Erythrocyte distribution width (RBC) [Ratio] 15.7 % Critically high 11.0-15.0 [facility] Comment on above: Performed By: #### C VDTBH #### [facility] [address] [place] [address] Dr. Talia Plascencia Hematocrit (Bld) [Volume fraction] 50.2 % Normal 42.0-54.0 [facility] Comment on above: Performed By: #### C VDTBH #### [facility] [address] [place] [address] Dr. Talia Plascencia Hemoglobin (Bld) [Mass/Vol] 17.3 g/dL Normal 14.0-18.0 [facility] Comment on above: Performed By: #### C VDTBH #### [facility] [address] [place] [address] Dr. Talia Plascencia IG # 0.03 10e3/ul Normal 0.00-0.03 [facility] Comment on above: Performed By: #### C VDTBH #### [facility] [address] [place] [address] Dr. Talia Plascencia IG % 0.3 % Normal 0.0-0.5 [facility] Comment on above: Performed By: #### C VDTBH #### [facility] [address] [place] [address] Dr. Talia Plascencia LYMPH # 0.7 103/ul Critically low 1.2-3.[address] [facility] Comment on above: Performed By: #### C VDTBH #### [facility] [address] [place] [address] Dr. Talia Plascencia Lymphocytes/100 WBC (Bld) 7.0 % Critically low 20.5-60.0 [facility] Comment on above: Performed By: #### C VDTBH #### [facility] [address] [place] [address] Dr. Talia Plascencia MANUAL DIFF REQ NO Normal [facility] Comment on above: Performed By: #### C VDTBH #### [facility] [address] [place] [address] Dr. Talia Plascencia MCH (RBC) [Entitic mass] 26.3 pg Normal 25.9-34.0 [facility] Comment on above: Performed By: #### C VDTBH #### [facility] [address] [place] [address] Dr. Talia Plascencia MCHC (RBC) [Mass/Vol] 34.5 g/dL Normal 29.9-35.2 [facility] Comment on above: Performed By: #### C VDTBH #### [facility] [address] [place] [address] Dr. Talia Plascencia MCV (RBC) [Entitic vol] 76.2 fL Critically low 80.0-94.0 [facility] Comment on above: Performed By: #### C VDTBH #### [facility] [address] [place] [address] Dr. Talia Plascencia MONO # 1.0 103/ul Critically high 0.3-0.8 [facility] Comment on above: Performed By: #### C VDTBH #### [facility] [address] [place] [address] Dr. Talia Plascencia Monocytes/100 WBC (Bld) 9.9 % Normal 1.7-12.0 [facility] Comment on above: Performed By: #### C VDTBH #### [facility] [address] [place] [address] Dr. Talia Plascencia NEUT # 8.5 103/ul Critically high 1.4-6.5 [facility] Comment on above: Performed By: #### C VDTBH #### [facility] [address] [place] [address] Dr. Talia Plascencia Neutrophils/100 WBC (Bld) 81.2 % Critically high 43.0-75.0 [facility] Comment on above: Performed By: #### C VDTBH #### [facility] [address] [place] [address] Dr. Talia Plascencia Platelet mean volume (Bld) [Entitic vol] 10.5 fL Normal 9.5-13.5 [facility] Comment on above: Performed By: #### C VDTBH #### [facility] [address] [place], [place] [id number] Dr. Talia Plascencia PLT 212 103/ul Normal 150-450 [facility] Comment on above: Performed By: #### C VDTBH #### [facility] [address] [place] [address] Dr. Talia Plascencia RBC 6.59 106/ul Critically high 4.70-6.10 [facility] Comment on above: Performed By: #### C VDTBH #### [facility] [address] [place] [address] Dr. Talia Plascencia WBC 10.4 103/ul Normal 4.0-11.0 [facility] Comment on above: Performed By: #### C VDTBH #### [facility] [address] [place] [address] Dr. Talia Plascencia Covid-19 PCR ([facility])on 07-08 SARS-CoV-2 (COVID-19) RNA REKHA+probe Ql (Unsp spec) Detected Critically abnormal NOT DETECTED [facility] Comment on above: Result Comment: This test is not yet approved or cleared by the [place] FDA. When there are no FDA-approved or cleared tests available, and other criteria are met, FDA can make tests available under an emergency access mechanism called an Emergency Use Authorization (EUA). The EUA for this test is supported by the Agent Producer of Health and Human Service's declaration that [...] used). Performed By: #### C VDTBH #### [facility] [address] [place] [address] Dr. Talia Plascencia INFLUENZA A AND B AGon 08-04 INFLUENZA A AG Negative Normal NEGATIVE SEE COMMENT [facility] Comment on above: Performed By: #### I NFLUAB #### [facility] [address] [place] [address] Dr. Talia Plascencia INFLUENZA B AG Negative Normal NEGATIVE SEE COMMENT [facility] Comment on above: Performed By: #### I NFLUAB #### [facility] [address] [place] [address] Dr. Talia Plascencia INTERNAL CONTROLS Within Normal Limits Normal Wi thin Normal Limits [facility] Comment on above: Performed By: #### I NFLUAB #### [facility] [address] [place] [address] Dr. Talia Plascencia LACTATE/LACTIC ACIDon 2021 Lactate [Moles/Vol] 2.1 mmol/L Critically high 0.4-1.9 [facility] Comment on above: Performed By: #### C BCMAN #### [facility] [address] [place] [address] Dr. Talia Plascencia LIPASEon 08-04-2022 Lipase [Catalytic activity/Vol] 135.0 U/L Normal 73.0-393.0 [facility] Comment on above: Performed By: #### I NFLUAB #### [facility] [address] [place] [address] Dr. Talia Plascencia PROF 14(COMP METB)on 022 Albumin [Mass/Vol] 4.3 g/dL Normal 3.4-5.0 [facility] Comment on above: Performed By: #### I NFLUAB #### [facility] [address] [place] [address] Dr. Talia Plascencia Albumin/Globulin [Mass ratio] 1.0 {ratio} Normal [facility] Comment on above: Performed By: #### I NFLUAB #### [facility] [address] [place] [address] Dr. Talia Plascencia ALP [Catalytic activity/Vol] 77 U/L Normal 46-116 [facility] Comment on above: Performed By: #### I NFLUAB #### [facility] [address] [place] [address] Dr. Talia Plascencia ALT [Catalytic activity/Vol] 28 U/L Normal 16-63 [facility] Comment on above: Performed By: #### I NFLUAB #### [facility] [address] [place] [address] Dr. Talia Plascencia Anion gap [Moles/Vol] 20.3 mmol/L Normal [facility] Comment on above: Performed By: #### I NFLUAB #### [facility] [address] [place] [address] Dr. Talia Plascencia AST [Catalytic activity/Vol] 35 U/L Normal 15-37 [facility] Comment on above: Performed By: #### I NFLUAB #### [facility] [address] [place] [address] Dr. Talia Plascencia Bilirubin [Mass/Vol] 1.1 mg/dL Critically high 0.2-1.0 [facility] Comment on above: Performed By: #### I NFLUAB #### [facility] [address] [place] [address] Dr. Talia Plascencia Calcium [Mass/Vol] 10.1 mg/dL Normal 8.5-10.1 [facility] Comment on above: Performed By: #### I NFLUAB #### [facility] [address] [place] [address] Dr. Talia Plascencia Chloride [Moles/Vol] 95 mmol/L Critically low 98-107 [facility] Comment on above: Performed By: #### I NFLUAB #### [facility] [address] [place] [address] Dr. Talia Plascencia CO2 [Moles/Vol] 22.5 mmol/L Normal 21.0-32.0 [facility] Comment on above: Performed By: #### I NFLUAB #### [facility] [address] [place] [address] Dr. Talia Plascencia Creatinine [Mass/Vol] 1.36 mg/dL Critically high 0.70-1.30 [facility] Comment on above: Performed By: #### I NFLUAB #### [facility] [address] [place] [address] Dr. Talia Plascencia EGFR-AF KOSOVAN >60 Normal >=60 [facility] Comment on above: Performed By: #### I NFLUAB #### [facility] [address] [place] [address] Dr. Talia Plascencia EGFR-NON AF KOSOVAN 53 mL/min/1.73m2 Critically low >=60 [facility] Comment on above: Performed By: #### I NFLUAB #### [facility] [address] [address] [address] Talia Plascencia Globulin (S) [Mass/Vol] 4.4 g/dL Normal [facility] Comment on above: Performed By: #### I NFLUAB #### [facility] [address] [address] [address] Talia Plascencia Glucose [Mass/Vol] 220 mg/dL Critically high 74-106 [facility] Comment on above: Performed By: #### I NFLUAB #### [facility] [address] [place] [address] Dr. Talia Plascencia Potassium [Moles/Vol] 4.8 mmol/L Normal 3.5-5.1 [facility] Comment on above: Performed By: #### I NFLUAB #### [facility] [address] [place] [address] Dr. Talia Plascencia Protein [Mass/Vol] 8.7 g/dL Critically high 6.4-8.2 [facility] Comment on above: Performed By: #### I NFLUAB #### [facility] [address] [place] [address] Dr. Talia Plascencia Sodium [Moles/Vol] 133 mmol/L Critically low 136-145 [facility] Comment on above: Performed By: #### I NFLUAB #### [facility] [address] [place] [address] Dr. Talia Plascencia Urea nitrogen [Mass/Vol] 28.0 mg/dL Critically high 7.0-18.0 [facility] Comment on above: Performed By: #### I NFLUAB #### [facility] [address] [place] [address] Dr. Talia Plascencia Urea nitrogen/Creatinine [Mass ratio] 20.6 mg/mg Normal [facility] Comment on above: Performed By: #### I NFLUAB #### [facility] [address] [place] [address] Dr. Talia Plascencia TESTOSTERONE, TOTALon 2021 Testosterone [Mass/Vol] 830 ng/dL Normal 264-916 [facility] Comment on above: Result Comment: Adul t male reference interval is based on a population of healthy nonobese males (BMI <30) between 19 and 39 years old. Tayler et.al. JCEM 2017,102;3019-8321. PMID: [id number]. Performed By: #### C BC #### [facility] [address] [place] [address] Dr. Talia Plascencia CBC AUTO DIFFon 07-29-2022 BASO # 0.1 103/ul Normal 0.0-0.1 [facility] Comment on above: Performed By: #### P OCGLUC #### [facility] [address] [place] [address] Dr. Talia Plascencia Basophils/100 WBC (Bld) 0.7 % Normal 0.2-2.0 [facility] Comment on above: Performed By: #### P OCGLUC #### [facility] [address] [place] [address] Dr. Talia Plascencia EO # 0.5 103/ul Normal 0.0-0.7 [facility] Comment on above: Performed By: #### P OCGLUC #### [facility] [address] [place] [address] Dr. Talia Plascencia Eosinophils/100 WBC (Bld) 5.8 % Normal 0.9-7.0 [facility] Comment on above: Performed By: #### P OCGLUC #### [facility] [address] [place] [address] Dr. Talia Plascencia Erythrocyte distribution width (RBC) [Ratio] 15.0 % Normal 11.0-15.0 [facility] Comment on above: Performed By: #### P OCGLUC #### [facility] [address] [place] [address] Dr. Talia Plascencia Hematocrit (Bld) [Volume fraction] 45.9 % Normal 42.0-54.0 [facility] Comment on above: Performed By: #### P OCGLUC #### [facility] [address] [address] [address] Talia Plascencia Hemoglobin (Bld) [Mass/Vol] 15.8 g/dL Normal 14.0-18.0 [facility] Comment on above: Performed By: #### P OCGLUC #### [facility] [address] [place] [address] Dr. Talia Plascencia IG # 0.03 10e3/ul Normal 0.00-0.03 [facility] Comment on above: Performed By: #### P OCGLUC #### [facility] [address] [place] [address] Dr. Talia Plascencia IG % 0.4 % Normal 0.0-0.5 [facility] Comment on above: Performed By: #### P OCGLUC #### [facility] [address] [place] [address] Dr. Talia Plascencia LYMPH # 1.4 103/ul Normal 1.2-3.8 [facility] Comment on above: Performed By: #### P OCGLUC #### [facility] [address] [place] [address] Dr. Talia Plascencia Lymphocytes/100 WBC (Bld) 17.3 % Critically low 20.5-60.0 [facility] Comment on above: Performed By: #### P OCGLUC #### [facility] [address] [place] [address] Dr. Talia Plascencia MANUAL DIFF REQ NO Normal [facility] Comment on above: Performed By: #### P OCGLUC #### [facility] [address] [place] [address] Dr. Talia Plascencia MCH (RBC) [Entitic mass] 27.4 pg Normal 25.9-34.0 [facility] Comment on above: Performed By: #### P OCGLUC #### [facility] [address] [place] [address] Dr. Talia Plascencia MCHC (RBC) [Mass/Vol] 34.4 g/dL Normal 29.9-35.2 [facility] Comment on above: Performed By: #### P OCGLUC #### [facility] [address] [address] [address] Talia Plascencia MCV (RBC) [Entitic vol] 79.5 fL Critically low 80.0-94.0 [facility] Comment on above: Performed By: #### P OCGLUC #### [facility] [address] [address] [address] Talia Plascencia MONO # 0.5 103/ul Normal 0.3-0.8 [facility] Comment on above: Performed By: #### P OCGLUC #### [facility] [address] [address] [address] Talia Plascencia Monocytes/100 WBC (Bld) 6.6 % Normal 1.7-12.0 [facility] Comment on above: Performed By: #### P OCGLUC #### [facility] [address] [place] [address] Dr. Talia Plascencia NEUT # 5.6 103/ul Normal 1.4-6.5 [facility] Comment on above: Performed By: #### P OCGLUC #### [facility] [address] [place] [address] Dr. Talia Plascencia Neutrophils/100 WBC (Bld) 69.2 % Normal 43.0-75.0 [facility] Comment on above: Performed By: #### P OCGLUC #### [facility] [address] [place] [address] Dr. Talia Plascencia Platelet mean volume (Bld) [Entitic vol] 10.5 fL Normal 9.5-13.5 [facility] Comment on above: Performed By: #### P OCGLUC #### [facility] [address] [place] [address] Dr. Talia Plascencia PLT 216 103/ul Normal 150-450 [facility] Comment on above: Performed By: #### P OCGLUC #### [facility] [address] [place] [address] Dr. Talia Plascencia RBC 5.77 106/ul Normal 4.70-6.10 [facility] Comment on above: Performed By: #### P OCGLUC #### [facility] [address] [place] [address] Dr. Talia Plascencia WBC 8.2 103/ul Normal 4.0-11.0 [facility] Comment on above: Performed By: #### P OCGLUC #### [facility] [address] [place] [address] Dr. Talia Plascencia TESTOSTERONE, TOTALon 2021 Testosterone [Mass/Vol] 323 ng/dL Normal 264-916 [facility] Comment on above: Result Comment: Adul t male reference interval is based on a population of healthy nonobese males (BMI <30) between 19 and 39 years old. Tayler, et.al. JCEM 2017,102;2572-5194. PMID: [id number]. Performed By: #### T ESTTOT #### [facility] [address] [place] [address] Dr. Talia Plascencia CBC AUTO DIFFon 05-13-2022 BASO # 0.1 103/ul Normal 0.0-0.1 [facility] Comment on above: Performed By: #### C BCMAN #### [facility] [address] [place] [address] Dr. Talia Plascencia Basophils/100 WBC (Bld) 0.9 % Normal 0.2-2.0 [facility] Comment on above: Performed By: #### C BCMAN #### [facility] [address] [place] [address] Dr. Talia Plascencia EO # 0.3 103/ul Normal 0.0-0.7 [facility] Comment on above: Performed By: #### C BCMAN #### [facility] [address] [place] [address] Dr. Talia Plascencia Eosinophils/100 WBC (Bld) 4.0 % Normal 0.9-7.0 [facility] Comment on above: Performed By: #### C BCMAN #### [facility] [address] [place] [address] Dr. Talia Plascencia Erythrocyte distribution width (RBC) [Ratio] 15.6 % Critically high 11.0-15.0 [facility] Comment on above: Performed By: #### C SOLITARIO #### [facility] [address] [place] [address] Dr. Talia Plascencia Hematocrit (Bld) [Volume fraction] 43.9 % Normal 42.0-54.0 [facility] Comment on above: Performed By: #### C SOLITARIO #### [facility] [address] [place] [address] Dr. Talia Plascencia Hemoglobin (Bld) [Mass/Vol] 14.5 g/dL Normal 14.0-18.0 [facility] Comment on above: Performed By: #### C SOLITARIO #### [facility] [address] [place] [address] Dr. Talia Plascencia IG # 0.02 10e3/ul Normal 0.00-0.03 [facility] Comment on above: Performed By: #### C SOLITARIO #### [facility] [address] [place] [address] Dr. Talia Plascencia IG % 0.3 % Normal 0.0-0.5 [facility] Comment on above: Performed By: #### C SOLITARIO #### [facility] [address] [place] [address] Dr. Talia Plascencia LYMPH # 1.6 103/ul Normal 1.2-3.8 [facility] Comment on above: Performed By: #### C SOLITARIO #### [facility] [address] [place] [address] Dr. Talia Plascencia Lymphocytes/100 WBC (Bld) 23.5 % Normal 20.5-60.0 [facility] Comment on above: Performed By: #### C SOLITARIO #### [facility] [address] [place] [address] Dr. Talia Plascencia MANUAL DIFF REQ NO Normal [facility] Comment on above: Performed By: #### C SOLITARIO #### [facility] [address] [place] [address] Dr. Talia Plascencia MCH (RBC) [Entitic mass] 26.1 pg Normal 25.9-34.0 [facility] Comment on above: Performed By: #### C SOLITARIO #### [facility] [address] [address] [address] Talia Plascencia MCHC (RBC) [Mass/Vol] 33.0 g/dL Normal 29.9-35.2 [facility] Comment on above: Performed By: #### C SOLITARIO #### [facility] [address] [address] [address] Talia Plascencia MCV (RBC) [Entitic vol] 79.0 fL Critically low 80.0-94.0 [facility] Comment on above: Performed By: #### C SOLITARIO #### [facility] [address] [place] [address] Dr. Talia Plascencia MONO # 0.6 103/ul Normal 0.3-0.8 [facility] Comment on above: Performed By: #### C SOLITARIO #### [facility] [address] [place] [address] Dr. Talia Plascencia Monocytes/100 WBC (Bld) 8.2 % Normal 1.7-12.0 [facility] Comment on above: Performed By: #### C SOLITARIO #### [facility] [address] [place] [address] Dr. Talia Plascencia NEUT # 4.4 103/ul Normal 1.4-6.5 [facility] Comment on above: Performed By: #### C SOLITARIO #### [facility] [address] [place] [address] Dr. Talia Plascencia Neutrophils/100 WBC (Bld) 63.1 % Normal 43.0-75.0 [facility] Comment on above: Performed By: #### C SOLITARIO #### [facility] [address] [place] [address] Dr. Talia Plascencia Platelet mean volume (Bld) [Entitic vol] 11.6 fL Normal 9.5-13.5 [facility] Comment on above: Performed By: #### C SOLITARIO #### [facility] [address] [place] [address] Dr. Talia Plascencia PLT 247 103/ul Normal 150-450 [facility] Comment on above: Performed By: #### C SOLITARIO #### [facility] [address] [place] [address] Dr. Talia Plascencia RBC 5.56 106/ul Normal 4.70-6.10 [facility] Comment on above: Performed By: #### C BCMAN #### [facility] [address] [place] [address] Dr. Talia Plascencia WBC 6.9 103/ul Normal 4.0-11.0 [facility] Comment on above: Performed By: #### C BCMAN #### [facility] [address] [place] [address] Dr. Talia Plascencia CBC AUTO DIFFon 04-26-2022 BASO # 0.0 103/ul Normal 0.0-0.1 [facility] Comment on above: Performed By: #### C BC #### [facility] [address] [place] [address] Dr. Talia Plascencia Basophils/100 WBC (Bld) 0.4 % Normal 0.2-2.0 [facility] Comment on above: Performed By: #### C BC #### [facility] [address] [place] [address] Dr. Talia Plascencia EO # 0.3 103/ul Normal 0.0-0.7 [facility] Comment on above: Performed By: #### C BC #### [facility] [address] [place] [address] Dr. Talia Plascencia Eosinophils/100 WBC (Bld) 4.4 % Normal 0.9-7.0 [facility] Comment on above: Performed By: #### C BC #### [facility] [address] [place] [address] Dr. Talia Plascencia Erythrocyte distribution width (RBC) [Ratio] 15.1 % Critically high 11.0-15.0 [facility] Comment on above: Performed By: #### C BC #### [facility] [address] [place] [address] Dr. Talia Plascencia Hematocrit (Bld) [Volume fraction] 42.0 % Normal 42.0-54.0 [facility] Comment on above: Performed By: #### C BC #### [facility] [address] [place] [address] Dr. Talia Plascencia Hemoglobin (Bld) [Mass/Vol] 14.2 g/dL Normal 14.0-18.0 [facility] Comment on above: Performed By: #### C BC #### [facility] [address] [place] [address] Dr. Talia Plascencia IG # 0.02 10e3/ul Normal 0.00-0.03 [facility] Comment on above: Performed By: #### C BC #### [facility] [address] [place] [address] Dr. Talia Plascencia IG % 0.3 % Normal 0.0-0.5 [facility] Comment on above: Performed By: #### C BC #### [facility] [address] [place] [address] Dr. Talia Plascencia LYMPH # 1.1 103/ul Critically low 1.2-3.[address] [facility] Comment on above: Performed By: #### C BC #### [facility] [address] [place] [address] Dr. Talia Plascencia Lymphocytes/100 WBC (Bld) 14.5 % Critically low 20.5-60.0 [facility] Comment on above: Performed By: #### C BC #### [facility] [address] [place] [address] Dr. Talia Plascencia MANUAL DIFF REQ NO Normal [facility] Comment on above: Performed By: #### C BC #### [facility] [address] [place] [address] Dr. Talia Plascencia MCH (RBC) [Entitic mass] 26.4 pg Normal 25.9-34.0 [facility] Comment on above: Performed By: #### C BC #### [facility] [address] [place] [address] Dr. Talia Plascencia MCHC (RBC) [Mass/Vol] 33.8 g/dL Normal 29.9-35.2 [facility] Comment on above: Performed By: #### C BC #### [facility] [id number] Talia Plascencia MCV (RBC) [Entitic vol] 78.2 fL Critically low 80.0-94.0 [facility] Comment on above: Performed By: #### C BC #### [facility] [address] [address] [address] Talia Plascencia MONO # 0.5 103/ul Normal 0.3-0.8 [facility] Comment on above: Performed By: #### C BC #### [facility] [address] [address] [address] Talia Plascencia Monocytes/100 WBC (Bld) 6.8 % Normal 1.7-12.0 [facility] Comment on above: Performed By: #### C BC #### [facility] [address] [place] [address] Dr. Talia Plascencia NEUT # 5.6 103/ul Normal 1.4-6.5 [facility] Comment on above: Performed By: #### C BC #### [facility] [address] [place] [address] Dr. Talia Plascencia Neutrophils/100 WBC (Bld) 73.6 % Normal 43.0-75.0 [facility] Comment on above: Performed By: #### C BC #### [facility] [address] [place] [address] Dr. Talia Plascencia Platelet mean volume (Bld) [Entitic vol] 10.7 fL Normal 9.5-13.5 [facility] Comment on above: Performed By: #### C BC #### [facility] [address] [place] [address] Dr. Talia Plascencia PLT 182 103/ul Normal 150-450 [facility] Comment on above: Performed By: #### C BC #### [facility] [address] [place] [address] Dr. Talia Plascencia RBC 5.37 106/ul Normal 4.70-6.10 [facility] Comment on above: Performed By: #### C BC #### [facility] [address] [place] [address] Dr. Talia Plascencia WBC 7.7 103/ul Normal 4.0-11.0 [facility] Comment on above: Performed By: #### C BC #### [facility] [address] [address] [address] Talia Plascencia CRPon 04-26-2022 CRP 11.2 mg/dL Critically high <=1.0 [facility] Comment on above: Performed By: #### C BCMAN #### [facility] [address] [address] [address] Talia Plascencia POINT OF CARE GLUCOSEon 04-07 Glucose [Mass/Vol] 135 mg/dL Critically high 74-106 [facility] Comment on above: Performed By: #### P OCGLUC #### [facility] [address] [place] [address] Dr. Talia Plascencia PROF 14(COMP METB)on 022 Albumin [Mass/Vol] 3.2 g/dL Critically low 3.4-5.0 [facility] Comment on above: Performed By: #### I NFLUAB #### [facility] [address] [place] [address] Dr. Talia Plascencia Albumin/Globulin [Mass ratio] 0.8 {ratio} [facility] Comment on above: Performed By: #### I NFLUAB #### [facility] [address] [place] [address] Dr. Talia Plascencia ALP [Catalytic activity/Vol] 61 U/L Normal 46-116 [facility] Comment on above: Performed By: #### I NFLUAB #### [facility] [address] [place] [address] Dr. Talia Plascencia ALT [Catalytic activity/Vol] 25 U/L Normal 16-63 [facility] Comment on above: Performed By: #### I NFLUAB #### [facility] [address] [place] [address] Dr. Talia Plascencia Anion gap [Moles/Vol] 15.6 mmol/L Normal [facility] Comment on above: Performed By: #### I NFLUAB #### [facility] [address] [address] [address] Talia Plascencia AST [Catalytic activity/Vol] 31 U/L Normal 15-37 [facility] Comment on above: Performed By: #### I NFLUAB #### [facility] [address] [address] [address] Talia Plascencia Bilirubin [Mass/Vol] 0.6 mg/dL Normal 0.2-1.0 [facility] Comment on above: Performed By: #### I NFLUAB #### [facility] [address] [address] [address] Talia Plascencia Calcium [Mass/Vol] 8.7 mg/dL Normal 8.5-10.1 [facility] Comment on above: Performed By: #### I NFLUAB #### [facility] [address] [place] [address] Dr. Talia Plascencia Chloride [Moles/Vol] 99 mmol/L Normal 98-107 [facility] Comment on above: Performed By: #### I NFLUAB #### [facility] [address] [address] [address] Talia Plascencia CO2 [Moles/Vol] 22.6 mmol/L Normal 21.0-32.0 [facility] Comment on above: Performed By: #### I NFLUAB #### [facility] [address] [place] [address] Dr. Talia Plascencia Creatinine [Mass/Vol] 1.06 mg/dL Normal 0.70-1.30 [facility] Comment on above: Performed By: #### I NFLUAB #### [facility] [address] [place] [address] Dr. Talia Plascencia EGFR-AF KOSOVAN >60 Normal >=60 [facility] Comment on above: Performed By: #### I NFLUAB #### [facility] [address] [place] [address] Dr. Talia Plascencia EGFR-NON AF KOSOVAN >60 Normal >=60 [facility] Comment on above: Performed By: #### I NFLUAB #### [facility] [address] [address] [address] Talia Plascencia Globulin (S) [Mass/Vol] 3.8 g/dL Normal [facility] Comment on above: Performed By: #### I NFLUAB #### [facility] [address] [address] [address] Talia Plascencia Glucose [Mass/Vol] 136 mg/dL Critically high 74-106 [facility] Comment on above: Performed By: #### I NFLUAB #### [facility] Laboratory [address] [place] [address] Dr. Talia Plascencia Potassium [Moles/Vol] 4.2 mmol/L Normal 3.5-5.1 [facility] Comment on above: Performed By: #### I NFLUAB #### [facility] [address] [place] [address] Dr. Talia Plascencia Protein [Mass/Vol] 7.0 g/dL Normal 6.4-8.2 [facility] Comment on above: Performed By: #### I NFLUAB #### [facility] [address] [place] [address] Dr. Talia Plascencia Sodium [Moles/Vol] 133 mmol/L Critically low 136-145 [facility] Comment on above: Performed By: #### I NFLUAB #### [facility] [address] [place] [address] Dr. Talia Plascencia Urea nitrogen [Mass/Vol] 15.0 mg/dL Normal 7.0-18.0 [facility] Comment on above: Performed By: #### I NFLUAB #### [facility] [address] [place] [address] Dr. Talia Plascencia Urea nitrogen/Creatinine [Mass ratio] 14.2 mg/mg Normal [facility] Comment on above: Performed By: #### I NFLUAB #### [facility] [address] [place] [address] Dr. Talia Plascencia C. DIFF PCRon 04-25-2022 C. DIFFICILE PCR Negative Normal NEGATIVE [facility] Comment on above: Performed By: #### P OCGLUC #### [facility] [address] [address] [address] Talia Plascencia CBC AUTO DIFFon 04-25-2022 BASO # 0.0 103/ul Normal 0.0-0.1 [facility] Comment on above: Performed By: #### P OCGLUC #### [facility] [address] [place] [address] Dr. Talia Plascencia Basophils/100 WBC (Bld) 0.3 % Normal 0.2-2.0 [facility] Comment on above: Performed By: #### P OCGLUC #### [facility] [address] [place] [address] Dr. Talia Plascencia EO # 0.2 103/ul Normal 0.0-0.7 [facility] Comment on above: Performed By: #### P OCGLUC #### [facility] [address] [place] [address] Dr. Talia Plascencia Eosinophils/100 WBC (Bld) 2.9 % Normal 0.9-7.0 [facility] Comment on above: Performed By: #### P OCGLUC #### [facility] [address] [place] [address] Dr. Talia Plascencia Erythrocyte distribution width (RBC) [Ratio] 14.8 % Normal 11.0-15.0 [facility] Comment on above: Performed By: #### P OCGLUC #### [facility] [address] [place] [address] Dr. Talia Plascencia Hematocrit (Bld) [Volume fraction] 40.0 % Critically low 42.0-54.0 [facility] Comment on above: Performed By: #### P OCGLUC #### [facility] [address] [place] [address] Dr. Talia Plascencia Hemoglobin (Bld) [Mass/Vol] 13.5 g/dL Critically low 14.0-18.0 [facility] Comment on above: Performed By: #### P OCGLUC #### [facility] [address] [place] [address] Dr. Talia Plascencia IG # 0.02 10e3/ul Normal 0.00-0.03 [facility] Comment on above: Performed By: #### P OCGLUC #### [facility] [address] [address] [address] Talia Plascencia IG % 0.3 % Normal 0.0-0.5 [facility] Comment on above: Performed By: #### P OCGLUC #### [facility] [address] [address] [address] Talia Plascencia LYMPH # 0.8 103/ul Critically low 1.2-3.[address] [facility] Comment on above: Performed By: #### P OCGLUC #### [facility] [address] [address] [address] Talia Plascencia Lymphocytes/100 WBC (Bld) 11.5 % Critically low 20.5-60.0 [facility] Comment on above: Performed By: #### P OCGLUC #### [facility] [address] [address] [address] Talia Plascencia MANUAL DIFF REQ NO Normal [facility] Comment on above: Performed By: #### P OCGLUC #### [facility] [address] [address] [address] Talia Plascencia MCH (RBC) [Entitic mass] 26.3 pg Normal 25.9-34.0 [facility] Comment on above: Performed By: #### P OCGLUC #### [facility] [address] [address] [address] Talia Plascencia MCHC (RBC) [Mass/Vol] 33.8 g/dL Normal 29.9-35.2 [facility] Comment on above: Performed By: #### P OCGLUC #### [facility] [address] [address] [address] Talia Plascencia MCV (RBC) [Entitic vol] 78.0 fL Critically low 80.0-94.0 [facility] Comment on above: Performed By: #### P OCGLUC #### [facility] [address] [address] [address] Talia Plascencia MONO # 0.6 103/ul Normal 0.3-0.8 [facility] Comment on above: Performed By: #### P OCGLUC #### [facility] [address] [address] [address] Talia Plascencia Monocytes/100 WBC (Bld) 9.1 % Normal 1.7-12.0 [facility] Comment on above: Performed By: #### P OCGLUC #### [facility] [address] [address] [address] Talia Plascencia NEUT # 5.2 103/ul Normal 1.4-6.5 [facility] Comment on above: Performed By: #### P OCGLUC #### [facility] [address] [address] [address] Talia Plascencia Neutrophils/100 WBC (Bld) 75.9 % Critically high 43.0-75.0 [facility] Comment on above: Performed By: #### P OCGLUC #### [facility] [address] [place] [address] Dr. Talia Plascencia Platelet mean volume (Bld) [Entitic vol] 10.7 fL Normal 9.5-13.5 [facility] Comment on above: Performed By: #### P OCGLUC #### [facility] [address] [address] [address] Talia Plascencia PLT 149 103/ul Critically low 150-[address] [facility] Comment on above: Performed By: #### P OCGLUC #### [facility] [address] [address] [address] Talia Plascencia RBC 5.13 106/ul Normal 4.70-6.10 [facility] Comment on above: Performed By: #### P OCGLUC #### [facility] [address] [address] [address] Talia Plascencia WBC 6.8 103/ul Normal 4.0-11.0 [facility] Comment on above: Performed By: #### P OCGLUC #### [facility] [address] [address] [address] Talia Plascencia CRPon 04-25-2022 CRP 28.2 mg/dL Critically high <=1.0 [facility] Comment on above: Performed By: #### I NFLUAB #### [facility] [address] [place] [address] Dr. Talia ARREDONDO URINE PROFILEon 2 Bilirubin Ql (U) Negative Normal NEGATIVE [facility] Comment on above: Performed By: #### U MICRO, ERUR #### [facility] [address] [place] [address] Dr. Talia Plascencia Clarity (U) CLEAR Normal CLEAR [facility] Comment on above: Performed By: #### U MICRO, ERUR #### [facility] [address] [place] [address] Dr. Talia Plascencia Color (U) YELLOW Normal YELLOW [facility] Comment on above: Performed By: #### U MICRO, ERUR #### [facility] [address] [place] [address] Dr. Talia AGUIRRE A micrscopic examination will be performed if indicated. Normal [facility] Comment on above: Performed By: #### U MICRO, ERUR #### [facility] [address] [place] [address] Dr. Talia Plascencia Glucose Ql (U) >[address] [facility] Comment on above: Performed By: #### U MICRO, ERUR #### [facility] [address] [place] [address] Dr. Talia Plascencia Hemoglobin Ql (U) TRACE-INTACT Abnormal NEGATIVE [facility] Comment on above: Performed By: #### U MICRO, ERUR #### [facility] [address] [address] [address] Talia Plascencia Ketones Ql (U) TRACE Abnormal NEGATIVE [facility] Comment on above: Performed By: #### U MICRO, ERUR #### [facility] [address] [place] [address] Dr. Talia Plascencia LEUKOCYTES Negative Normal NEGATIVE [facility] Comment on above: Performed By: #### U MICRO, ERUR #### [facility] [address] [place] [address] Dr. Talia Plascencia Nitrite Ql (U) Negative Normal NEGATIVE [facility] Comment on above: Performed By: #### U MICRO, ERUR #### [facility] [address] [address] [address] Talia Plascencia pH (U) 6.0 [pH] Normal 5-9 [facility] Comment on above: Performed By: #### U MICRO, ERUR #### [facility] [address] [place] [address] Dr. Talia Plascencia SPEC GRAVITY 1.015 Normal 1.005-<=1.025 [facility] Comment on above: Performed By: #### U MICRO, ERUR #### [facility] [address] [place] [address] Dr. Talia Plascencia UA PROTEIN Negative Normal NEGATIVE/ TRACE [facility] Comment on above: Performed By: #### U MICRO, ERUR #### [facility] [address] [place] [address] Dr. Talia Plascencia UR MICRO IND INDICATED Normal [facility] Comment on above: Performed By: #### U MICRO, ERUR #### [facility] [address] [place] [address] Dr. Talia Plascencia Urobilinogen Qn (U) 1.0 {Suellen'U}/dL Normal 0.2 - 1. 0 [facility] Comment on above: Performed By: #### U MICRO, ERUR #### [facility] [address] [place] [address] Dr. Talia Plascencia POINT OF CARE GLUCOSEon 04-07 Glucose [Mass/Vol] 148 mg/dL Critically high 74-106 [facility] Comment on above: Performed By: #### I NFLUAB #### [facility] [address] [place] [address] Dr. Talia Plascencia Glucose [Mass/Vol] 199 mg/dL Critically high -106 [facility] Comment on above: Performed By: #### C BC #### [facility] [address] [place] [address] Dr. Talia Plascencia Glucose [Mass/Vol] 176 mg/dL Critically high -106 [facility] Comment on above: Performed By: #### I NFLUAB #### [facility] [address] [address] [address] Talia Plascencia PROF 14(COMP METB)on 022 Albumin [Mass/Vol] 2.9 g/dL Critically low 3.4-5.0 [facility] Comment on above: Performed By: #### I NFLUAB #### [facility] [address] [address] [address] Talia Plascencia Albumin/Globulin [Mass ratio] 0.8 {ratio} Normal [facility] Comment on above: Performed By: #### I NFLUAB #### [facility] [address] [place] [address] Dr. Talia Plascencia ALP [Catalytic activity/Vol] 58 U/L Normal 46-116 [facility] Comment on above: Performed By: #### I NFLUAB #### [facility] [address] [place] [address] Dr. Talia Plascencia ALT [Catalytic activity/Vol] 20 U/L Normal 16-63 [facility] Comment on above: Performed By: #### I NFLUAB #### [facility] [address] [place] [address] Dr. Talia Plascencia Anion gap [Moles/Vol] 12.7 mmol/L Normal [facility] Comment on above: Performed By: #### I NFLUAB #### [facility] [address] [place] [address] Dr. Talia Plascencia AST [Catalytic activity/Vol] 25 U/L Normal 15-37 [facility] Comment on above: Performed By: #### I NFLUAB #### [facility] [address] [place] [address] Dr. Talia Plascencia Bilirubin [Mass/Vol] 0.7 mg/dL Normal 0.2-1.0 [facility] Comment on above: Performed By: #### I NFLUAB #### [facility] [address] [place] [address] Dr. Talia Plascencia Calcium [Mass/Vol] 8.1 mg/dL Critically low 8.5-10.1 [facility] Comment on above: Performed By: #### I NFLUAB #### [facility] [address] [address] [address] Talia Plascencia Chloride [Moles/Vol] 101 mmol/L Normal 98-107 [facility] Comment on above: Performed By: #### I NFLUAB #### [facility] [address] [address] [address] Talia Plascencia CO2 [Moles/Vol] 22.3 mmol/L Normal 21.0-32.0 [facility] Comment on above: Performed By: #### I NFLUAB #### [facility] [address] [address] [address] Talia Plascencia Creatinine [Mass/Vol] 1.13 mg/dL Normal 0.70-1.30 [facility] Comment on above: Performed By: #### I NFLUAB #### [facility] [address] [address] [address] Talia Plascencia EGFR-AF KOSOVAN >60 Normal >=60 [facility] Comment on above: Performed By: #### I NFLUAB #### [facility] [address] [address] [address] Talia Plascencia EGFR-NON AF KOSOVAN >60 Normal >=60 [facility] Comment on above: Performed By: #### I NFLUAB #### [facility] [address] [address] [address] Talia Plascencia Globulin (S) [Mass/Vol] 3.6 g/dL Normal [facility] Comment on above: Performed By: #### I NFLUAB #### [facility] [address] [address] [address] Talia Plascencia Glucose [Mass/Vol] 148 mg/dL Critically high 74-106 [facility] Comment on above: Performed By: #### I NFLUAB #### [facility] [address] [address] [address] Talia Plascencia Potassium [Moles/Vol] 4.0 mmol/L Normal 3.5-5.1 [facility] Comment on above: Performed By: #### I NFLUAB #### [facility] [address] [place] [address] Dr. Talia Plascencia Protein [Mass/Vol] 6.5 g/dL Normal 6.4-8.2 [facility] Comment on above: Performed By: #### I NFLUAB #### [facility] [address] [place] [address] Dr. Talia Plascencia Sodium [Moles/Vol] 132 mmol/L Critically low 136-145 [facility] Comment on above: Performed By: #### I NFLUAB #### [facility] [address] [place] [address] Dr. Talia Plascencia Urea nitrogen [Mass/Vol] 19.0 mg/dL Critically high 7.0-18.0 [facility] Comment on above: Performed By: #### I NFLUAB #### [facility] [address] [place] [address] Dr. Talia Plascencia Urea nitrogen/Creatinine [Mass ratio] 16.8 mg/mg Normal [facility] Comment on above: Performed By: #### I NFLUAB #### [facility] [address] [place] [address] Dr. Talia Plascencia URINE MICROSCOPIC ONLYon BACTERIA NONE SEEN Normal NONE SEEN [facility] Comment on above: Performed By: #### C VDTBH #### [facility] [address] [place] [address] Dr. Talia Plascencia Bacteria identified Cx Nom (U) NOT INDICATED Normal [facility] Comment on above: Performed By: #### C VDTBH #### [facility] [address] [place] [address] Dr. Talia Plascencia CAST NONE SEEN Normal NONE SEEN [facility] Comment on above: Performed By: #### C VDTBH #### [facility] [address] [place] [address] Dr. Talia Plascencia Crystals LM Nom (Urine sed) SEEN Abnormal NONE SEEN [facility] Comment on above: Performed By: #### C VDTBH #### [facility] [address] [place], [place] [id number] Dr. Talia Plascnecia Epithelial cells LM Ql (Urine sed) NONE SEEN Normal NONE SEEN /RARE [facility] Comment on above: Performed By: #### C VDTBH #### [facility] [address] [place] [address] Dr. Talia Plascencia MUCOUS NONE SEEN Normal NONE SEEN [facility] Comment on above: Performed By: #### C VDTBH #### [facility] [address] [place] [address] Dr. Talia Plascencia RBC NONE SEEN Abnormal 0-2 [facility] Comment on above: Performed By: #### C VDTBH #### [facility] [address] [place] [address] Dr. Talia Plascencia URIC ACID CRYSTALS FEW Normal [facility] Comment on above: Performed By: #### C VDTBH #### [facility] [address] [place] [address] Dr. Talia Plascencia WBC NONE SEEN Normal NONE SEEN [facility] Comment on above: Performed By: #### C VDTBH #### [facility] [address] [place] [address] Dr. Talia Plascencia CBC W MANUAL DIFFon 04-24-20 22 ATYPICAL LYMPH # Normal [facility] Comment on above: Performed By: #### C VDTBH #### [facility] [address] [place] [address] Dr. Talia Plascencia ATYPICAL LYMPH % Normal [facility] Comment on above: Performed By: #### C VDTBH #### [facility] [address] [place] [address] Dr. Talia Plascencia BAND # 0.2 103/ul Normal 0.0-0.3 [facility] Comment on above: Performed By: #### C VDTBH #### [facility] [address] [place] [address] Dr. Talia Plascencia BAND % 2 % Normal 0-5 [facility] Comment on above: Performed By: #### C VDTBH #### [facility] [address] [place] [address] Dr. Talia Plascencia BASOM # 0.00 103/ul Normal 0.00-0.10 [facility] Comment on above: Performed By: #### C VDTBH #### [facility] [address] [place] [address] Dr. Talia Plascencia BASOM % 0.0 % Critically low 0.2-2.[address] [facility] Comment on above: Performed By: #### C VDTBH #### [facility] [address] [place] [address] Dr. Talia Plascencia BLAST # Normal [facility] Comment on above: Performed By: #### C VDTBH #### [facility] [address] [place] [address] Dr. Talia Plascencia BLAST % Normal [facility] Comment on above: Performed By: #### C VDTBH #### [facility] [address] [place] [address] Dr. Talia Plascencia CORRECTED WBC Normal 4.0-11.0 [facility] Comment on above: Performed By: #### C VDTBH #### [facility] [address] [place] [address] Dr. Talia Plascencia EOS # 0.00 103/ul Normal 0.00-0.70 [facility] Comment on above: Performed By: #### C VDTBH #### [facility] [address] [place] [address] Dr. Talia Plascencia EOS% 0.0 % Critically low 0.9-7.[address] [facility] Comment on above: Performed By: #### C VDTBH #### [facility] [address] [place] [address] Dr. Talia Plascencia HCT 40.0 % Critically low 42.0-54.[address] [facility] Comment on above: Performed By: #### C VDTBH #### [facility] [address] [place] [address] Dr. Talia Plascencia HGB 13.6 g/dl Critically low 14.0-18.[address] [facility] Comment on above: Performed By: #### C VDTBH #### [facility] [address] [address] [address] Talia Plascencia LYMPHM # 0.61 103/ul Critically low 1.20-3.80 [facility] Comment on above: Performed By: #### C VDTBH #### [facility] [address] [address] [address] Talia Plascencia LYMPHM% 6.0 % Critically low 20.5-60.[address] [facility] Comment on above: Performed By: #### C VDTBH #### [facility] [address] [place] [address] Dr. Talia Plascencia MCH 26.5 pg Normal 25.9-34.0 [facility] Comment on above: Performed By: #### C VDTBH #### [facility] [address] [place] [address] Dr. Talia Plascencia MCHC 34.0 g/dl Normal 29.9-35.2 [facility] Comment on above: Performed By: #### C VDTBH #### [facility] [address] [place] [address] Dr. Talia Plascencia MCV 78.0 fL Critically low 80.0-94.[address] [facility] Comment on above: Performed By: #### C VDTBH #### [facility] [address] [place] [address] Dr. Talia Plascencia METAMYELOCYTE # Normal [facility] Comment on above: Performed By: #### C VDTBH #### [facility] [address] [place] [address] Dr. Talia Plascencia METAMYELOCYTE % Normal [facility] Comment on above: Performed By: #### C VDTBH #### [facility] [address] [place] [address] Dr. Talia Plascencia MONOM# 0.71 103/ul Normal 0.30-0.80 [facility] Comment on above: Performed By: #### C VDTBH #### [facility] [address] [place] [address] Dr. Talia Plascencia MONOM% 7.0 % Normal 1.7-12.0 [facility] Comment on above: Performed By: #### C VDTBH #### [facility] [address] [address] [address] Talia Plascencia MPV 10.2 fL Normal 9.5-13.5 [facility] Comment on above: Performed By: #### C VDTBH #### [facility] [address] [place] [address] Dr. Talia Plascencia MYELOCYTE # Normal [facility] Comment on above: Performed By: #### C VDTBH #### [facility] [address] [place] [address] Dr. Talia Plascencia MYELOCYTE % Normal [facility] Comment on above: Performed By: #### C VDTBH #### [facility] [address] [place] [address] Dr. Talia Plascencia NRBC Normal [facility] Comment on above: Performed By: #### C VDTBH #### [facility] [address] [place] [address] Dr. Talia Plascencia PLT 141 103/ul Critically low 150-[address] [facility] Comment on above: Performed By: #### C VDTBH #### [facility] [address] [place] [address] Dr. Talia Plascencia RBC 5.13 106/ul Normal 4.70-6.10 [facility] Comment on above: Performed By: #### C VDTBH #### [facility] [address] [place] [address] Dr. Talia Plascencia RDW 14.7 % Normal 11.0-15.0 [facility] Comment on above: Performed By: #### C VDTBH #### [facility] [address] [place] [address] Dr. Talia Plascencia SEG # 8.67 103/ul Critically high 1.40-6.50 [facility] Comment on above: Performed By: #### C VDTBH #### [facility] [address] [place] [address] Dr. Talia Plascencia SEG % 85.0 % Critically high 43.0-75.0 [facility] Comment on above: Performed By: #### C VDTBH #### [facility] [address] [address] [address] Talia Plascencia WBC 10.2 103/ul Normal 4.0-11.0 [facility] Comment on above: Performed By: #### C VDTBH #### [facility] [address] [address] [address] Talia Plascencia CRPon 04-24-2022 CRP [Mass/Vol] mg/L Critically high <=1.0 [facility] Comment on above: Performed By: #### C VDTBH #### [facility] [address] [place] [address] Dr. Talia Plascencia POINT OF CARE GLUCOSEon 04-06 Glucose [Mass/Vol] 144 mg/dL Critically high 74-106 [facility] Comment on above: Performed By: #### C BCMAN #### [facility] [address] [place] [address] Dr. Talia Plascencia Glucose [Mass/Vol] 123 mg/dL Critically high 74-106 [facility] Comment on above: Performed By: #### I NFLUAB #### [facility] [address] [place] [address] Dr. Talia Plascencia Glucose [Mass/Vol] 222 mg/dL Critically high -106 [facility] Comment on above: Performed By: #### P OCGLUC #### [facility] [address] [place] [address] Dr. Talia Plascencia Glucose [Mass/Vol] 174 mg/dL Critically high 74-106 [facility] Comment on above: Performed By: #### C BC #### [facility] [address] [place] [address] Dr. Talia Plascencia PROF 14(COMP METB)on 022 Albumin [Mass/Vol] 2.9 g/dL Critically low 3.4-5.0 [facility] Comment on above: Performed By: #### C BCMAN #### [facility] [address] [place] [address] Dr. Talia Plascencia Albumin/Globulin [Mass ratio] 0.9 {ratio} Normal [facility] Comment on above: Performed By: #### C SOLITARIO #### [facility] [address] [place] [address] Dr. Talia Plascencia ALP [Catalytic activity/Vol] 55 U/L Normal 46-116 [facility] Comment on above: Performed By: #### C SOLITARIO #### [facility] [address] [place] [address] Dr. Talia Plascencia ALT [Catalytic activity/Vol] 19 U/L Normal 16-63 [facility] Comment on above: Performed By: #### C SOLITARIO #### [facility] [address] [place] [address] Dr. Talia Plascencia Anion gap [Moles/Vol] 16.2 mmol/L Normal [facility] Comment on above: Performed By: #### C SOLITARIO #### [facility] [address] [place] [address] Dr. Talia Plascencia AST [Catalytic activity/Vol] 32 U/L Normal 15-37 [facility] Comment on above: Performed By: #### C SOLITARIO #### [facility] [address] [place] [address] Dr. Talia Plascencia Bilirubin [Mass/Vol] 1.3 mg/dL Critically high 0.2-1.0 [facility] Comment on above: Performed By: #### C SOLITARIO #### [facility] [address] [place] [address] Dr. Talia Plascencia Calcium [Mass/Vol] 7.8 mg/dL Critically low 8.5-10.1 [facility] Comment on above: Performed By: #### C SOLITARIO #### [facility] [address] [place] [address] Dr. Talia Plascencia Chloride [Moles/Vol] 99 mmol/L Normal 98-107 [facility] Comment on above: Performed By: #### C SOLITARIO #### [facility] [address] [place] [address] Dr. Talia Plascencia CO2 [Moles/Vol] 20.2 mmol/L Critically low 21.0-32.0 [facility] Comment on above: Performed By: #### C BCANALI #### [facility] [address] [address] [address] Talia Plascencia Creatinine [Mass/Vol] 1.34 mg/dL Critically high 0.70-1.30 [facility] Comment on above: Performed By: #### C BCMAN #### [facility] [address] [address] [address] Talia Plascencia EGFR-AF KOSOVAN >60 Normal >=60 [facility] Comment on above: Performed By: #### C SOLITARIO #### [facility] [address] [place] [address] Dr. Talia Plascencia EGFR-NON AF KOSOVAN 54 mL/min/1.73m2 Critically low >=60 [facility] Comment on above: Performed By: #### C SOLITARIO #### [facility] [address] [address] [address] Talia Plascencia Globulin (S) [Mass/Vol] 3.4 g/dL Normal [facility] Comment on above: Performed By: #### C BCANALI #### [facility] [address] [place] [address] Dr. Talia Plascencia Glucose [Mass/Vol] 179 mg/dL Critically high 74-106 [facility] Comment on above: Performed By: #### C SOLITARIO #### [facility] [address] [place] [address] Dr. Talia Plascencia Potassium [Moles/Vol] 4.4 mmol/L Normal 3.5-5.1 [facility] Comment on above: Performed By: #### C BCANALI #### [facility] [address] [place] [address] Dr. Talia Plascencia Protein [Mass/Vol] 6.3 g/dL Critically low 6.4-8.2 Th [facility] Comment on above: Performed By: #### C BCANALI #### [facility] [address] [place] [address] Dr. Talia Plascencia Sodium [Moles/Vol] 131 mmol/L Critically low 136-145 Th [facility] Comment on above: Performed By: #### C SOLITARIO #### [facility] [address] [place] [address] Dr. Talia Plascencia Urea nitrogen [Mass/Vol] 25.0 mg/dL Critically high 7.0-18.0 [facility] Comment on above: Performed By: #### C SOLITARIO #### [facility] [address] [place] [address] Dr. Talia Plascencia Urea nitrogen/Creatinine [Mass ratio] 18.7 mg/mg Normal [facility] Comment on above: Performed By: #### C SOLITARIO #### [facility] [address] [place] [address] Dr. Talia Plascencia BNPon 04-23-2022 Natriuretic peptide B (Bld) [Mass/Vol] 346.0 pg/mL Normal <=900.0 [facility] Comment on above: Performed By: #### Bee JEREZ #### [facility] [address] [place] [address] Dr. Talia Plascencia CBC W MANUAL DIFFon 04-23-20 ATYPICAL LYMPH # Normal [facility] Comment on above: Performed By: #### Bee JEREZ #### [facility] [address] [place] [address] Dr. Talia Plascencia ATYPICAL LYMPH % Normal [facility] Comment on above: Performed By: #### Bee JEREZ #### [facility] [address] [place] [address] Dr. Talia Plascencia BAND # Normal 0.0-0.3 [facility] Comment on above: Performed By: #### C SOLITARIO #### [facility] [address] [place] [address] Dr. Talia Plascencia BAND % Normal 0-5 [facility] Comment on above: Performed By: #### C SOLITARIO #### [facility] [address] [place] [address] Dr. Talia Plascencia BASOM # 0.00 103/ul Normal 0.00-0.10 [facility] Comment on above: Performed By: #### C CONSTANTNIEANALI #### [facility] [address] [place] [address] Dr. Talia Plascencia BASOM % 0.0 % Critically low 0.2-2.[address] [facility] Comment on above: Performed By: #### C BCMAN #### [facility] [address] [place] [address] Dr. Talia Plascencia BLAST # Normal [facility] Comment on above: Performed By: #### C BCANALI #### [facility] [address] [place] [address] Dr. Talia Plascencia BLAST % Normal [facility] Comment on above: Performed By: #### C BCANALI #### [facility] [address] [place] [address] Dr. Talia Plascencia CORRECTED WBC Normal 4.0-11.0 [facility] Comment on above: Performed By: #### C SOLITARIO #### [facility] [address] [place] [address] Dr. Talia Plascencia EOS # 0.00 103/ul Normal 0.00-0.70 [facility] Comment on above: Performed By: #### C SOLITARIO #### [facility] [address] [place] [address] Dr. Talia Plascencia EOS% 0.0 % Critically low 0.9-7.[address] [facility] Comment on above: Performed By: #### C SOLITARIO #### [facility] [address] [place] [address] Dr. Talia Plascencia HCT 45.5 % Normal 42.0-54.0 [facility] Comment on above: Performed By: #### C BCANALI #### [facility] [address] [place] [address] Dr. Talia Plascencia HGB 15.5 g/dl Normal 14.0-18.0 [facility] Comment on above: Performed By: #### C BCANALI #### [facility] [address] [place] [address] Dr. Talia Plascencia LYMPHM # 0.33 103/ul Critically low 1.20-3.80 [facility] Comment on above: Performed By: #### C SOLITARIO #### [facility] [address] [address] [address] Talia Plascencia LYMPHM% 2.0 % Critically low 20.5-60.[address] [facility] Comment on above: Performed By: #### C SOLITARIO #### [facility] [address] [place] [address] Dr. Talia Plascencia MCH 26.3 pg Normal 25.9-34.0 [facility] Comment on above: Performed By: #### C SOLITARIO #### [facility] [address] [place] [address] Dr. Talia Plascencia MCHC 34.1 g/dl Normal 29.9-35.2 [facility] Comment on above: Performed By: #### C SOLITARIO #### [facility] [address] [place] [address] Dr. Talia Plascencia MCV 77.1 fL Critically low 80.0-94.[address] [facility] Comment on above: Performed By: #### C SOLITARIO #### [facility] [address] [place] [address] Dr. Talia Plascencia METAMYELOCYTE # Normal [facility] Comment on above: Performed By: #### C SOLITARIO #### [facility] [address] [place] [address] Dr. Talia Plascencia METAMYELOCYTE % Normal [facility] Comment on above: Performed By: #### C SOLITARIO #### [facility] [address] [place] [address] Dr. Talia Plascencia MONOM# 1.00 103/ul Critically high 0.30-0.80 [facility] Comment on above: Performed By: #### C SOLITARIO #### [facility] [address] [place] [address] Dr. Talia Plascencia MONOM% 6.0 % Normal 1.7-12.0 [facility] Comment on above: Performed By: #### C SOLITARIO #### [facility] [address] [place] [address] Dr. Talia Plascencia MPV 10.9 fL Normal 9.5-13.5 [facility] Comment on above: Performed By: #### C BCMAN #### [facility] [address] [place] [address] Dr. Talia Plascencia MYELOCYTE # Normal [facility] Comment on above: Performed By: #### C SOLITARIO #### [facility] [address] [address] [address] Talia Plascencia MYELOCYTE % Normal [facility] Comment on above: Performed By: #### C BCANALI #### [facility] [address] [address] [address] Talia Plascencia NRBC Normal [facility] Comment on above: Performed By: #### C SOLITARIO #### [facility] [address] [place] [address] Dr. Talia Plascencia PLT 177 103/ul Normal 150-450 [facility] Comment on above: Performed By: #### C SOLITARIO #### [facility] [address] [place] [address] Dr. Talia Plascencia RBC 5.90 106/ul Normal 4.70-6.10 [facility] Comment on above: Performed By: #### C SOLITARIO #### [facility] [address] [place] [address] Dr. Talia Plascencia RDW 14.6 % Normal 11.0-15.0 [facility] Comment on above: Performed By: #### C SOLITARIO #### [facility] [address] [address] [address] Talia Plascencia SEG # 15.27 103/ul Critically high 1.40-6.50 [facility] Comment on above: Performed By: #### C BCANALI #### [facility] [address] [place] [address] Dr. Talia Plascencia SEG % 92.0 % Critically high 43.0-75.0 [facility] Comment on above: Performed By: #### C SOLITARIO #### [facility] [address] [address] [address] Talia Plascencia WBC 16.6 103/ul Critically high 4.0-11.0 [facility] Comment on above: Performed By: #### C BCMAN #### [facility] [address] [place] [address] Dr. Talia Plascencia CULTURE BLOODon 04-23-2022 Microscopic examination of blood, culture Culture Observations: NO GROWTH AT 5 DAYS. Normal [facility] Comment on above: Performed By: #### C VDTBH #### [facility] [address] [place] [address] Dr. Talia Plascencia Covid-19 PCR ([facility])on 04-06 SARS-CoV-2 (COVID-19) RNA REKHA+probe Ql (Unsp spec) Not detected Normal NOT DETECTED [facility] Comment on above: Result Comment: When diagnostic [...] for this test is supported by the [place] of Health and Human Service's declaration that [...] longer be used). Performed By: #### C BCMAN #### [facility] [address] [place] [address] Dr. Talia Plascencia LACTATE/LACTIC ACIDon 2021 Lactate [Moles/Vol] 1.2 mmol/L Normal 0.4-1.9 [facility] Comment on above: Performed By: #### I NFLUAB #### [facility] [address] [place] [address] Dr. Talia Plascencia Performed By: #### P OCGLUC #### [facility] [address] [address] [address] Talia Plascencia PH VENOUS BLOODon 04-23-2022 PCO2 VENOUS 35.1 mmHg Critically low 40.0-52.0 [facility] Comment on above: Performed By: #### P OCGLUC #### [facility] [address] [place] [address] Dr. Talia Plascencia pH VENOUS 7.419 Normal 7.330-7.430 [facility] Comment on above: Performed By: #### P OCGLUC #### [facility] [address] [place] [address] Dr. Talia Plascencia POINT OF CARE GLUCOSEon 04-06 Glucose [Mass/Vol] 154 mg/dL Critically high 74-106 [facility] Comment on above: Performed By: #### P OCGLUC #### [facility] [address] [place] [address] Dr. Talia Plascencia PROF 14(COMP METB)on 022 Albumin [Mass/Vol] 3.7 g/dL Normal 3.4-5.0 [facility] Comment on above: Performed By: #### C BCMAN #### [facility] [address] [place] [address] Dr. Talia Plascencia Albumin/Globulin [Mass ratio] 0.9 {ratio} [facility] Comment on above: Performed By: #### C BCMAN #### [facility] [address] [place] [address] Dr. Talia Plascencia ALP [Catalytic activity/Vol] 72 U/L Normal 46-116 [facility] Comment on above: Performed By: #### C BCMAN #### [facility] [address] [place] [address] Dr. Talia Plascencia ALT [Catalytic activity/Vol] 20 U/L Normal 16-63 [facility] Comment on above: Performed By: #### C BCMAN #### [facility] [address] [place] [address] Dr. Talia Plascencia Anion gap [Moles/Vol] 16.0 mmol/L Normal [facility] Comment on above: Performed By: #### C BCMAN #### [facility] [address] [address] [address] Talia Plascencia AST [Catalytic activity/Vol] 29 U/L Normal 15-37 [facility] Comment on above: Performed By: #### C BCMAN #### [facility] [address] [address] [address] Talia Plascencia Bilirubin [Mass/Vol] 1.5 mg/dL Critically high 0.2-1.0 [facility] Comment on above: Performed By: #### C BCMAN #### [facility] [address] [address] [address] Talia Plascencia Calcium [Mass/Vol] 8.7 mg/dL Normal 8.5-10.1 [facility] Comment on above: Performed By: #### C BCMAN #### [facility] [address] [address] [address] Talia Plascencia Chloride [Moles/Vol] 93 mmol/L Critically low 98-107 [facility] Comment on above: Performed By: #### C BCMAN #### [facility] [address] [address] [address] Talia Plascencia CO2 [Moles/Vol] 21.4 mmol/L Normal 21.0-32.0 [facility] Comment on above: Performed By: #### C BCANALI #### [facility] [address] [address] [address] Talia Plascencia Creatinine [Mass/Vol] 1.61 mg/dL Critically high 0.70-1.30 [facility] Comment on above: Performed By: #### C BCMAN #### [facility] [address] [address] [address] Talia Plascencia EGFR-AF KOSOVAN 53 mL/min/1.73m2 Critically low >=60 [facility] Comment on above: Performed By: #### C BCMAN #### [facility] [address] [address] [address] Talia Plascencia EGFR-NON AF KOSOVAN 44 mL/min/1.73m2 Critically low >=60 [facility] Comment on above: Performed By: #### C BCANALI #### [facility] [address] [address] [address] Talia Plascencia Globulin (S) [Mass/Vol] 3.9 g/dL Normal [facility] Comment on above: Performed By: #### C SOLITARIO #### [facility] [address] [address] [address] Talia Plascencia Glucose [Mass/Vol] 182 mg/dL Critically high 74-106 [facility] Comment on above: Performed By: #### C SOLITARIO #### [facility] [address] [address] [address] Talia Plascencia Potassium [Moles/Vol] 4.4 mmol/L Normal 3.5-5.1 [facility] Comment on above: Performed By: #### C SOLITARIO #### [facility] [address] [place] [address] Dr. Talia Plascencia Protein [Mass/Vol] 7.6 g/dL Normal 6.4-8.2 [facility] Comment on above: Performed By: #### C SOLITARIO #### [facility] [address] [address] [address] Talia Plascencia Sodium [Moles/Vol] 126 mmol/L Critically low 136-145 [facility] Comment on above: Performed By: #### C SOLITARIO #### [facility] [address] [place] [address] Dr. Talia Plascencia Urea nitrogen [Mass/Vol] 30.0 mg/dL Critically high 7.0-18.0 [facility] Comment on above: Performed By: #### C SOLITARIO #### [facility] [address] [address] [address] Talia Plascencia Urea nitrogen/Creatinine [Mass ratio] 18.6 mg/mg Normal [facility] Comment on above: Performed By: #### C SOLITARIO #### [facility] [address] [address] [address] Talia Plascencia PROTIMEon 04-23-2022 INR Coag (PPP) [Relative time] 1.08 {INR} Normal [facility] Comment on above: Performed By: #### C VDTBH #### [facility] [address] [place] [address] Dr. Talia Plascencia INR GUIDELINES SEE BELOW Normal [facility] Comment on above: Result Comment: WENDY RED INR: 2.0 - 3.0 CONDITIONS NOT LISTED BELOW 2.5 - 3.5 FOR PROSTHETIC HEART VALVE REPLACEMENT 2.5 - 3.5 RECURRENT THROMBOSIS Performed By: #### C VDTBH #### [facility] [address] [place] [address] Dr. Talia Plascencia PT Coag (PPP) [Time] 11.6 s Normal 9.0-11.6 [facility] Comment on above: Performed By: #### C VDTBH #### [facility] [address] [place] [address] Dr. Talia Plascencia PTTon 04-23-2022 aPTT Coag (Bld) [Time] 32.2 s Normal 22.3-36.2 [facility] Comment on above: Performed By: #### C VDTBH #### [facility] [address] [place] [address] Dr. Talia Plascencia TROPONIN, HIGH SENSITIVITYon 04-23-2022 HSTROP 9.1 pg/mL Normal 4.0-76.1 [facility] Comment on above: Result Comment: CUT- OFF POINTS HAVE BEEN ESTABLISHED BASED ON THE FOURTH UNIVERSAL DEFINITIONS OF MYOCARDIAL INFARCTION. THE UPPER REFERENCE LIMIT (URL) OF TROPONIN, DEFINED THE 99TH PERCENTILE OF cTnI DISTRIBUTION IN A REFERENCE POPULATION, HAS BEEN CONFIRMED THE DECISION THRESHOLD FOR SD DIAGNOSIS. Performed By: #### C BCMENDOTA #### [facility] [address] [place] [address] Dr. Talia Plascencia US SARAH DOP LEG RTon 04-23-20 US SARAH DOP LEG RT EXAM: US [...] by: TEVIN NAYAK Date: 2022-04-23 17:00 Normal [facility] ECHOCARDIO M/2D COMPLETEon 0 04-15-2022 ECHOCARDIO M/2D COMPLETE Patient: JOHNATHAN AMBROSIO Exam Date: 04/15/2022 : 1960 Gender:M Ordering : DR LUIS JEFFREY M.D. Admission #: [id number] Family : Order #: [id number] CLICK HERE TO VIEW EXAM ECHOCARDIOGRAM REPORT [...] Galan M.D. on 04/15/2022 at 19:32 Normal [facility] BNPon 02-20-2022 Natriuretic peptide B (Bld) [Mass/Vol] 43.0 pg/mL Normal <=900.0 [facility] Comment on above: Performed By: #### B FACE CLEANER, CMP #### [facility] [address] [place] [address] Dr. Talia Plascencia GLYCOHEMOGLOBIN A1Con 2021 ADA RECOMMENDATION SEE BELOW Normal [facility] Comment on above: Result Comment: ADA RECOMMENDED LIMIT 4.0 - 6.0 ADA THERAPEUTIC TARGET < 7.0 ACTION SUGGESTED > 7.0 Performed By: #### A 1C #### [facility] [address] [place] [address] Dr. Talia Plascencia Glucose [Mass/Vol] 203 mg/dL Normal [facility] Comment on above: Performed By: #### A 1C #### [facility] [address] [place] [address] Dr. Talia Plascencia HbA1c (Bld) [Mass fraction] 8.7 % Critically high 4.5-6.2 [facility] Comment on above: Performed By: #### A 1C #### [facility] [address] [place] [address] Dr. Talia Plascencia PROF 14(COMP METB)on 022 Albumin [Mass/Vol] 3.9 g/dL Normal 3.4-5.0 [facility] Comment on above: Performed By: #### B FACE CLEANER, CMP #### [facility] [address] [place] [address] Dr. Talia Plascencia Albumin/Globulin [Mass ratio] 1.1 {ratio} Normal [facility] Comment on above: Performed By: #### B FACE CLEANER, CMP #### [facility] [address] [place] [address] Dr. Talia Plascencia ALP [Catalytic activity/Vol] 74 U/L Normal 46-116 [facility] Comment on above: Performed By: #### B FACE CLEANER, CMP #### [facility] [address] [place] [address] Dr. Talia Plascencia ALT [Catalytic activity/Vol] 30 U/L Normal 16-63 [facility] Comment on above: Performed By: #### B FACE CLEANER, CMP #### [facility] [address] [place] [address] Dr. Talia Plascencia Anion gap [Moles/Vol] 12.2 mmol/L Normal [facility] Comment on above: Performed By: #### B FACE CLEANER, CMP #### [facility] [address] [place] [address] Dr. Talia Plascencia AST [Catalytic activity/Vol] 32 U/L Normal 15-37 [facility] Comment on above: Performed By: #### B FACE CLEANER, CMP #### [facility] [address] [place] [address] Dr. Talia Plascencia Bilirubin [Mass/Vol] 0.8 mg/dL Normal 0.2-1.0 [facility] Comment on above: Performed By: #### B FACE CLEANER, CMP #### [facility] [address] [place] [address] Dr. Talia Plascencia Calcium [Mass/Vol] 8.7 mg/dL Normal 8.5-10.1 [facility] Comment on above: Performed By: #### B FACE CLEANER, CMP #### [facility] [address] [place] [address] Dr. Talia Plascencia Chloride [Moles/Vol] 98 mmol/L Normal 98-107 [facility] Comment on above: Performed By: #### B FACE CLEANER, CMP #### [facility] [address] [place] [address] Dr. Talia Plascencia CO2 [Moles/Vol] 27.5 mmol/L Normal 21.0-32.0 [facility] Comment on above: Performed By: #### B FACE CLEANER, CMP #### [facility] [address] [place] [address] Dr. Talia Plascencia Creatinine [Mass/Vol] 1.33 mg/dL Critically high 0.70-1.30 [facility] Comment on above: Performed By: #### B FACE CLEANER, CMP #### [facility] [address] [place] [address] Dr. Talia Plascencia EGFR-AF KOSOVAN >60 Normal >=60 [facility] Comment on above: Performed By: #### B FACE CLEANER, CMP #### [facility] [address] [place] [address] Dr. Talia Plascencia EGFR-NON AF KOSOVAN 55 mL/min/1.73m2 Critically low >=60 [facility] Comment on above: Performed By: #### B FACE CLEANER, CMP #### [facility] [address] [place] [address] Dr. Talia Plascencia Globulin (S) [Mass/Vol] 3.6 g/dL Normal [facility] Comment on above: Performed By: #### B FACE CLEANER, CMP #### [facility] [address] [place] [address] Dr. Talia Plascencia Glucose [Mass/Vol] 233 mg/dL Critically high 74-106 [facility] Comment on above: Performed By: #### B FACE CLEANER, CMP #### [facility] [address] [place] [address] Dr. Talia Plascencia Potassium [Moles/Vol] 4.7 mmol/L Normal 3.5-5.1 [facility] Comment on above: Performed By: #### B FACE CLEANER, CMP #### [facility] [address] [place] [address] Dr. Talia Plascencia Protein [Mass/Vol] 7.5 g/dL Normal 6.4-8.2 [facility] Comment on above: Performed By: #### B FACE CLEANER, CMP #### [facility] [address] [place] [address] Dr. Talia Plascencia Sodium [Moles/Vol] 133 mmol/L Critically low 136-145 [facility] Comment on above: Performed By: #### B FACE CLEANER, CMP #### [facility] [address] [place] [address] Dr. Talia Plascencia Urea nitrogen [Mass/Vol] 22.0 mg/dL Critically high 7.0-18.0 [facility] Comment on above: Performed By: #### B FACE CLEANER, CMP #### [facility] [address] [place] [address] Dr. Talia Plascencia Urea nitrogen/Creatinine [Mass ratio] 16.5 mg/mg Normal [facility] Comment on above: Performed By: #### B FACE CLEANER, CMP #### [facility] [address] [place] [address] Dr. Talia Plascencia ALT (SGPT)on 07-14-2018 ALT enzyme act/vol 15 U/L Normal 10-52 [facility] Comment on above: Performed By: #### 1 [id number] ####[facility] [address] [place] [address] AST (SGOT)on 07-14-2018 AST enzyme act/vol 23 U/L Normal 13-39 [facility] Comment on above: Performed By: #### 1 [id number] ####[facility] [address] [place] [address] Creatinineon 07-14-2018 Creatinine mass conc 1.07 mg/dL Normal 0.50-1.30 [facility] Comment on above: Performed By: #### 1 [id number] ####[facility] [address] [place] [address] GFR/1.73 sq M.predicted MDRD vol rate/area mL/min/{1.73_m2} Normal [facility] Comment on above: Result Comment: Inte rpretation for Chronic Kidney Disease:Stages 1&2 >60 Healthy or potential kidney damage.Mild decrease of GFR.Stage 3 30-59 Moderate decrease of GFR.Stage 4 15-29 Severe decrease of GFR.Stage 5 <15 Kidney failure or on dialysis. Performed By: #### 1 [id number] ####[facility] [address] [place] [address] Electrolyte Panelon 07-14-20 18 Anion gap 3 molar conc 10 mmol/L Normal 10-20 [facility] Comment on above: Performed By: #### 1 [id number] ####[facility] [address] [place] [address] Chloride molar conc 99 mmol/L Normal 98-107 [facility] Comment on above: Performed By: #### 1 [id number] ####[facility] [address] [place] [address] HCO3 molar conc (Bld) 32 mmol/L Normal 21-32 [facility] Comment on above: Performed By: #### 1 [id number] ####[facility] [address] [place] [address] Potassium molar conc 4.5 mmol/L Normal 3.5-5.1 [facility] Comment on above: Performed By: #### 1 [id number] ####[facility] [address] [place] [address] Sodium molar conc 136 mmol/L Normal 136-145 [facility] Comment on above: Performed By: #### 1 [id number] ####[facility] [address] [place] [address] Lipid Panelon 07-14-2018 Cholesterol in HDL mass conc 34 mg/dL Abnormal [facility] Comment on above: Result Comment: Norm al Mod Risk High Risk5-9 >48 42-48 <4210- 14 >45 40-45 <4015-19 >38 34-38 <34Adult >39 Performed By: #### 1 [id number] ####[facility] [address] [place] [address] Cholesterol in LDL mass conc 98 mg/dL Normal <130 [facility] Comment on above: Performed By: #### 1 [id number] ####[facility] [address] [place] [address] Cholesterol in VLDL mass conc 21 mg/dL Normal <30 [facility] Comment on above: Performed By: #### 1 [id number] ####[facility] [address] [place] [address] Cholesterol mass conc 153 mg/dL Normal <200 [facility] Comment on above: Performed By: #### 1 [id number] ####[facility] [address] [place] [address] Cholesterol.total/Ch olesterol in HDL mass ratio 4.5 {ratio} Normal [facility] Comment on above: Performed By: #### 1 [id number] ####[facility] [address] [place] [address] Triglyceride mass conc 104 mg/dL Normal <150 [facility] Comment on above: Result Comment: 150- 199 Borderline [id number] High>500 Very High Performed By: #### 1 [id number] ####[facility] [address] [place] [address] Urea Nitrogenon 07-14-2018 Urea nitrogen mass conc 16 mg/dL Normal 6-23 [facility] Comment on above: Performed By: #### 1 [id number] ####[facility] [address] [place] [address] Vital Signs Date Time Vital Sign Value Performing Clinician Facility 07-13-2024 10:59-0500 Body height 170.2 cm Gray Schmidt DPM Work Phone: [facility] 07-13-2024 10:59-0500 Body mass index (BMI) [Ratio] 51.69 kg/m2 Gray Schmidt DPM Work Phone: [facility] 07-13-2024 10:59-0500 Body weight 149.69 kg Gray Schmidt DPM Work Phone: [facility] 07-13-2024 10:59-0500 Diastolic blood pressure 82 mm[Hg] Gray Schmidt DPM Work Phone: [facility] 07-13-2024 10:59-0500 Heart rate 86 /min Gray Schmidt DPM Work Phone: [facility] 07-13-2024 10:59-0500 Systolic blood pressure 133 mm[Hg] Gray Schmidt DPM Work Phone: [facility] 07-06-2024 11:16-0400 Body height 170.2 cm Gray Schmidt DPM Work Phone: [facility] 07-06-2024 11:16-0400 Body mass index (BMI) [Ratio] 51.69 kg/m2 Gray Schmidt DPM Work Phone: [facility] 07-06-2024 11:16-0400 Body weight 149.69 kg Gray Schmidt DPM Work Phone: [facility] 07-06-2024 11:16-0400 Diastolic blood pressure 80 mm[Hg] Gray Schmidt DPM Work Phone: [facility] 07-06-2024 11:16-0400 Heart rate 82 /min Gray Schmidt DPM Work Phone: [facility] 07-06-2024 11:16-0400 Systolic blood pressure 126 mm[Hg] Gray Schmidt DPM Work Phone: [facility] 06-29-2024 10:52-0400 Body height 170.2 cm Gray Schmidt DPM Work Phone: [facility] 06-29-2024 10:52-0400 Body mass index (BMI) [Ratio] 51.69 kg/m2 Gray Brown DPM Work Phone: [facility] 06-29-2024 10:52-0400 Body weight 149.69 kg Gray Brown DPM Work Phone: [facility] 06-29-2024 10:52-0400 Diastolic blood pressure 80 mm[Hg] Gray Schmidt DPM Work Phone: [facility] 06-29-2024 10:52-0400 Heart rate 88 /min Gray Schmidt DPM Work Phone: [facility] 06-29-2024 10:52-0400 Systolic blood pressure 130 mm[Hg] Gray Schmidt DPM Work Phone: [facility] 06-15-2024 13:46-0400 Body height 170.2 cm Graydena Schmidt DPM Work Phone: [facility] 06-15-2024 13:46-0400 Body mass index (BMI) [Ratio] 51.69 kg/m2 Gray Brown DPM Work Phone: [facility] 06-15-2024 13:46-0400 Body weight 149.69 kg Gray Brown DPM Work Phone: [facility] 06-15-2024 13:46-0400 Respiratory rate 18 /min Gray Brown DPM Work Phone: [facility] 06-14-2024 07:52-0400 Body height 171.45 cm [facility] 06-14-2024 07:52-0400 Body mass index (BMI) [Ratio] 49.6 kg/m2 [facility] 06-14-2024 07:52-0400 Body weight 145.77 kg [facility] 06-14-2024 07:52-0400 Diastolic blood pressure 88 mm[Hg] [facility] 06-14-2024 07:52-0400 Heart rate 85 /min [facility] 06-14-2024 07:52-0400 Respiratory rate 18 /min [facility] 06-14-2024 07:52-0400 SaO2% (BldA) [Mass fraction] 96 % [facility] 06-14-2024 07:52-0400 Systolic blood pressure 142 mm[Hg] [facility] 06-08-2024 08:34-0400 Body height 170.2 cm Gray Schmidt DPM Work Phone: [facility] 06-08-2024 08:34-0400 Body mass index (BMI) [Ratio] 51.69 kg/m2 Gray Schmidt DPM Work Phone: [facility] 06-08-2024 08:34-0400 Body weight 149.69 kg Gray Schmidt DPM Work Phone: [facility] 06-08-2024 08:34-0400 Diastolic blood pressure 80 mm[Hg] Gray Schmidt DPM Work Phone: [facility] 06-08-2024 08:34-0400 Heart rate 74 /min Gray Schmidt DPM Work Phone: [facility] 06-08-2024 08:34-0400 Respiratory rate 18 /min Gray Schmidt DPM Work Phone: [facility] 06-08-2024 08:34-0400 Systolic blood pressure 126 mm[Hg] Gray Brown DPM Work Phone: [facility] 05-01-2024 11:15-0400 Body height 171.45 cm [facility] 05-01-2024 11:15-0400 Body mass index (BMI) [Ratio] 51.4 kg/m2 [facility] 05-01-2024 11:15-0400 Body weight 151.07 kg [facility] 05-01-2024 11:15-0400 Diastolic blood pressure 74 mm[Hg] [facility] 05-01-2024 11:15-0400 Heart rate 77 /min [facility] 05-01-2024 11:15-0400 Respiratory rate 18 /min [facility] 05-01-2024 11:15-0400 SaO2% (BldA) [Mass fraction] 95 % [facility] 05-01-2024 11:15-0400 Systolic blood pressure 118 mm[Hg] [facility] 03-08-2024 08:08-0400 Blood Pressure Location Lety Lue [facility] 03-08-2024 08:08-0400 Diastolic blood pressure 85 mm[Hg] Lety Lue [facility] 03-08-2024 08:08-0400 Heart rate 70 /min Lety Lue [facility] 03-08-2024 08:08-0400 Respiratory rate 16 /min Lety Lue [facility] 03-08-2024 08:08-0400 Systolic blood pressure 126 mm[Hg] Lety Lue [facility] 02-23-2024 11:41-0400 Body height 171.45 cm [facility] 02-23-2024 11:41-0400 Body mass index (BMI) [Ratio] 50.1 kg/m2 [facility] 02-23-2024 11:41-0400 Body weight 147.41 kg [facility] 02-23-2024 11:41-0400 Diastolic blood pressure 72 mm[Hg] [facility] 02-23-2024 11:41-0400 Heart rate 75 /min [facility] 02-23-2024 11:41-0400 Systolic blood pressure 116 mm[Hg] [facility] 11-30-2023 08:52-0400 Body height 171.45 cm [facility] 11-30-2023 08:52-0400 Body mass index (BMI) [Ratio] 50.1 kg/m2 [facility] 11-30-2023 08:52-0400 Body weight 147.41 kg [facility] 11-30-2023 08:52-0400 Diastolic blood pressure 74 mm[Hg] [facility] 11-30-2023 08:52-0400 Heart rate 76 /min [facility] 11-30-2023 08:52-0400 Systolic blood pressure 110 mm[Hg] [facility] 09-15-2023 08:05-0500 Blood Pressure Location Lety Lue [facility] 09-15-2023 08:05-0500 Diastolic blood pressure 77 mm[Hg] Lety Lue [facility] 09-15-2023 08:05-0500 Heart rate 75 /min Lety Lue [facility] 09-15-2023 08:05-0500 Systolic blood pressure 118 mm[Hg] Lety Lue [facility] 08-06-2023 09:45-0500 Body height 171.45 cm Luis Jeffrey Other [employer] Other 08-06-2023 09:45-0500 Body mass index (BMI) [Ratio] 48.51 kg/m2 Luis Jeffrey Other [employer] Other 08-06-2023 09:45-0500 Body weight 142.61 kg Luis Jeffrey Other [facility] [employer] Other 08-06-2023 09:45-0500 Diastolic blood pressure 79 mm[Hg] Luis Jeffrey Other [facility] [employer] Other 08-06-2023 09:45-0500 Systolic blood pressure 112 mm[Hg] Luis Jeffrey Other [facility] [employer] Other 03-03-2023 09:30-0400 Blood Pressure Location Lety Lue [facility] 03-03-2023 09:30-0400 Diastolic blood pressure 96 mm[Hg] Lety Lue [facility] 03-03-2023 09:30-0400 Heart rate 74 /min Lety Lue [facility] 03-03-2023 09:30-0400 Respiratory rate 16 /min Lety Lue [facility] 03-03-2023 09:30-0400 Systolic blood pressure 139 mm[Hg] Lety Lue [facility] 12-22-2022 09:53-0400 Body height 173.99 cm Luis Jeffrey Work Phone: [facility] [employer] DO Work Phone: 12-22-2022 09:53-0400 Body mass index (BMI) [Ratio] 46.9 kg/m2 Luis Jeffrey Work Phone: [facility] [employer] DO Work Phone: 12-22-2022 09:53-0400 Body surface area Derived from formula 2.49 m2 Luis Jeffrey Work Phone: [facility] [employer] DO Work Phone: 12-22-2022 09:53-0400 Body weight 141.98 kg Luis Jeffrey Work Phone: [facility] [employer] DO Work Phone: 12-22-2022 09:53-0400 Diastolic blood pressure 64 mm[Hg] Luis Jeffrey Work Phone: [facility] [employer] DO Work Phone: 12-22-2022 09:53-0400 Heart rate 74 /min Luis Jeffrey Work Phone: [facility] [employer] DO Work Phone: 12-22-2022 09:53-0400 Systolic blood pressure 120 mm[Hg] Luis Jeffrey Work Phone: [facility] [employer] DO Work Phone: 12-09-2022 09:45-0400 Body height 171.45 cm Luis Jeffrey Other [employer] Other 12-09-2022 09:45-0400 Body mass index (BMI) [Ratio] 47.52 kg/m2 Luis Jeffrey Other [employer] Other 12-09-2022 09:45-0400 Body weight 139.71 kg Luis Jeffrey Other [employer] Other 12-09-2022 09:45-0400 Diastolic blood pressure 80 mm[Hg] Luis Jeffrey Other [employer] Other 12-09-2022 09:45-0400 SaO2% (BldA) [Mass fraction] 97 % Luis Jeffrey Other [employer] Other 12-09-2022 09:45-0400 Systolic blood pressure 122 mm[Hg] Luis Wojciech Other [employer] Other 11-25-2022 10:15-0400 Blood Pressure Location Lety Lue [facility] 11-25-2022 10:15-0400 Diastolic blood pressure 79 mm[Hg] Lety Lue [facility] 11-25-2022 10:15-0400 Heart rate 76 /min Lety Lue [facility] 11-25-2022 10:15-0400 Respiratory rate 16 /min Lety Lue [facility] 11-25-2022 10:15-0400 Systolic blood pressure 129 mm[Hg] Lety Lue [facility] 08-19-2022 07:54-0500 Blood Pressure Location Lety Lue [facility] 08-19-2022 07:54-0500 Diastolic blood pressure 90 mm[Hg] Lety Lue [facility] 08-19-2022 07:54-0500 Heart rate 82 /min Lety Lue [facility] 08-19-2022 07:54-0500 Systolic blood pressure 128 mm[Hg] Lety Lue [facility] Encounters Encounter Date Encounter Type Care Provider Facility Start: 09-20-2024 ambulatory Lety M. Lue Facility:[facility] Start: 09-13-2024 ambulatory Lety Gonzalez Facility:[facility] Start: 08-29-2024 ambulatory Lety M. Carlos Facility:[facility] Start: 08-23-2024 ambulatory Lety Gonzalez Facility:[facility] Start: 08-09-2024 ambulatory Lety Gonzalez Facility:[facility] Start: 07-26-2024 ambulatory Lety Gonzalez Facility:[facility] Start: 07-13-2024 End: 07-13-2024 Bamboo flowsheet Gray Schmidt DPM Work Phone: [facility] Start: 07-13-2024 End: 07-13-2024 Bamboo flowsheet Gray Schmidt DPM Work Phone: [facility] Start: 07-13-2024 End: 07-13-2024 Postop follow up visit related to original px Gray Schmidt DPM Work Phone: [facility] Comment on above: 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, unspecified whether detention insulin use (CMS/HCC) (Primary Dx); Foot ulcer, right, with fat layer exposed (CMS/HCC); Foot ulcer, left, with fat layer exposed (CMS/HCC) Start: 07-13-2024 End: 07-13-2024 ambulatory GRAY SCHMIDT Not Available Start: 07-12-2024 End: 07-12-2024 ambulatory Lety Gonzalez Facility:[facility] Start: 07-12-2024 End: 07-12-2024 Patient encounter procedure Lety Gonzalez [facility] Start: 07-06-2024 End: 07-06-2024 Bamboo flowsheet Gray Schmidt DPM Work Phone: [facility] Start: 07-06-2024 End: 07-06-2024 Bamboo flowsheet Gray Schmidt DPM Work Phone: [facility] Start: 07-06-2024 End: 07-06-2024 Patient encounter procedure Gray Schmidt DPM Work Phone: [facility] Comment on above: 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, unspecified whether long term care pharmacist insulin use (CMS/HCC) (Primary Dx); Foot ulcer, right, with fat layer exposed (CMS/HCC) Start: 07-06-2024 End: 07-06-2024 ambulatory GRAY SCHMIDT Not Available Start: 06-29-2024 End: 06-29-2024 Bamboo flowsheet Gray Schmidt DPM Work Phone: [facility] Start: 06-29-2024 End: 06-29-2024 Bamboo flowsheet Gray Schmidt DPM Work Phone: [facility] Start: 06-29-2024 End: 06-29-2024 Patient encounter procedure Gray Schmidt DPM Work Phone: [facility] Comment on above: 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, unspecified whether detention insulin use (CMS/HCC) (Primary Dx); Foot ulcer, right, with fat layer exposed (CMS/HCC) Start: 06-29-2024 End: 06-29-2024 ambulatory GRAY SCHMIDT Not Available Start: 06-28-2024 End: 06-28-2024 ambulatory Lety Gonzalez Facility:[facility] Start: 06-28-2024 End: 06-28-2024 Patient encounter procedure Lety Gonzalez [facility] Start: 06-15-2024 End: 06-15-2024 Bamboo flowsheet Gray Schmidt DPM Work Phone: [facility] Start: 06-15-2024 End: 06-15-2024 Bamboo flowsheet Gray Schmidt DPM Work Phone: [facility] Start: 06-15-2024 End: 06-15-2024 Office outpatient visit 25 minutes Gray Schmidt DPM Work Phone: [facility] Comment on above: 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, unspecified whether detention insulin use (CMS/HCC) (Primary Dx); Foot ulcer, right, with fat layer exposed (CMS/HCC); Foot ulcer, left, with fat layer exposed (CMS/HCC); PVD (peripheral vascular disease) (CMS/HCC) Start: 06-15-2024 End: 06-15-2024 ambulatory GRAY SCHMIDT Not Available Start: 06-14-2024 End: 06-14-2024 ambulatory Lety Gonzalez [facility] Work Phone: Start: 06-14-2024 End: 06-14-2024 [facility]: Start: 06-08-2024 End: 06-08-2024 Bamboo flowsheet Gray Schmidt DPM Work Phone: [facility] Start: 06-08-2024 End: 06-08-2024 Bamboo flowsheet Gray Schmidt DPM Work Phone: [facility] Start: 06-08-2024 End: 06-08-2024 Office outpatient visit 15 minutes Gray Schmidt DPM Work Phone: [facility] Comment on above: Foot ulcer, left, wi th fat layer exposed (CMS/HCC) (Primary Dx); Diabetes 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 polyneuropathy, unspecified whether long term care pharmacist insulin use (CMS/HCC); Foot ulcer, right, with fat layer exposed (CMS/HCC) Start: 06-08-2024 End: 06-08-2024 ambulatory GRAY SCHMIDT Not Available Start: 06-01-2024 End: 06-01-2024 ambulatory GRAY A BROWN Not Available Start: 05-31-2024 End: 05-31-2024 ambulatory Lety Tyler Zahraareddy Facility:[facility] Start: 05-31-2024 End: 05-31-2024 Patient encounter procedure Lety Gonzalez [facility] Start: 05-25-2024 End: 05-25-2024 ambulatory GRAY A BROWN Not Available Start: 05-18-2024 End: 05-18-2024 ambulatory GRAY A BROWN Not Available Start: 05-17-2024 End: 05-17-2024 ambulatory Lety Tyler Zahraareddy Facility:[facility] Start: 05-17-2024 End: 05-17-2024 Patient encounter procedure Letychandan Gonzalez [facility] Start: 05-11-2024 End: 05-11-2024 ambulatory GRAY A BROWN Not Available Start: 05-04-2024 End: 05-04-2024 ambulatory GRAY A BROWN Not Available Start: 05-02-2024 End: 05-02-2024 ambulatory Lety JonhAbhinav Carlos Facility:[facility] Start: 05-02-2024 End: 05-02-2024 Patient encounter procedure Lety Gonzalez [facility] Start: 05-01-2024 End: 05-01-2024 ambulatory [facility] Work Phone: Start: 05-01-2024 End: 05-01-2024 Patient encounter procedure [facility] Work Phone: Start: 04-19-2024 End: 04-19-2024 ambulatory Lety JonhAbhinav Vitalreddy Facility:[facility] Start: 04-19-2024 End: 04-19-2024 Patient encounter procedure Letychandan Gonzalez [facility] Start: 04-17-2024 End: 04-17-2024 ambulatory [facility] Work Phone: Start: 04-17-2024 End: 04-17-2024 Patient encounter procedure [facility] Work Phone: Start: 04-05-2024 End: 04-05-2024 ambulatory Lety M. Lue Facility:[facility] Start: 04-05-2024 End: 04-05-2024 Patient encounter procedure [facility] Start: 03-22-2024 End: 03-22-2024 ambulatory Lety M. Lue [facility] Start: 03-22-2024 End: 03-22-2024 Patient encounter procedure [facility] M. Lue [facility] Start: 03-08-2024 End: 03-08-2024 ambulatory Lety M. Lue Facility:[facility] Start: 03-08-2024 End: 03-08-2024 Patient encounter procedure Lety M. Lue [facility] Start: 03-01-2024 End: 03-01-2024 Lab Drop off LUIS JEFFREY [facility] Start: 03-01-2024 Non-patient / Non-visit [facility] Work Phone: Start: 03-01-2024 End: 03-01-2024 Lab Drop off Lety M. Lue [facility] Start: 03-01-2024 End: 03-01-2024 ambulatory LUIS JEFFREY Facility:[facility] Start: 03-01-2024 End: 03-01-2024 Patient encounter procedure Lety Gonzalez [facility] Start: 02-23-2024 End: 02-23-2024 ambulatory [facility] Work Phone: Start: 02-23-2024 End: 02-23-2024 Patient encounter procedure [facility] Work Phone: Start: 02-23-2024 End: 02-23-2024 ambulatory [facility] Start: 02-23-2024 End: 02-23-2024 Patient encounter procedure Lety Gonzalez [facility] Start: 02-09-2024 End: 02-09-2024 ambulatory PA-C HARRY MARQUEZ Facility:[facility] Start: 02-09-2024 End: 02-09-2024 Patient encounter procedure HARRY MARQUEZ [facility] Start: 01-25-2024 End: 01-25-2024 ambulatory PA-C HARRY MARQUEZ Facility:[facility] Start: 01-25-2024 End: 01-25-2024 Patient encounter procedure HARRY MARQUEZ [facility] Start: 01-11-2024 End: 01-11-2024 ambulatory PA-C HARRY Blakely JIMMY Facility:[facility] Start: 01-11-2024 End: 01-11-2024 Patient encounter procedure HARRY MARQUEZ [facility] Start: 12-28-2023 End: 12-28-2023 ambulatory PA-C HARRY MARQUEZ Facility:[facility] Start: 12-28-2023 End: 12-28-2023 Patient encounter procedure HARRY MARQUEZ [facility] Start: 12-14-2023 End: 12-14-2023 ambulatory PA-C HARRY MARQUEZ Facility:[facility] Start: 12-14-2023 End: 12-14-2023 Patient encounter procedure HARRY MARQUEZ [facility] Start: 12-01-2023 Non-patient / Non-visit [facility] Work Phone: Start: 11-30-2023 End: 11-30-2023 ambulatory PA-C HARRY MARQUEZ [facility] Work Phone: Start: 11-30-2023 End: 11-30-2023 Patient encounter procedure [facility] Work Phone: Start: 11-25-2023 Non-patient / Non-visit [facility] Work Phone: Start: 11-16-2023 End: 11-16-2023 ambulatory Lety M. Lue Facility:[facility] Start: 11-16-2023 End: 11-16-2023 Patient encounter procedure Lety MAbhinav Gonzalez [facility] [place] Start: 11-03-2023 End: 11-03-2023 ambulatory Lety M. Lue Facility:[facility] Start: 11-03-2023 End: 11-03-2023 Patient encounter procedure Lety M. Lue [facility] Start: 10-20-2023 End: 10-20-2023 ambulatory Lety M. Lue Facility:[facility] [place] Start: 10-20-2023 End: 10-20-2023 Patient encounter procedure [facility] Lue [facility] Start: 09-29-2023 End: 09-29-2023 ambulatory Lety M. Lue Facility:[employer] Start: 09-29-2023 End: 09-29-2023 Patient encounter procedure Lety M. Lue [facility] Start: 09-15-2023 End: 09-15-2023 ambulatory Lety M. Lue Facility:[employer] Start: 09-15-2023 End: 09-15-2023 Patient encounter procedure [facility] M. Lue [facility] Start: 09-08-2023 End: 09-08-2023 Lab Drop off Lety M. Lue [facility] Start: 09-08-2023 End: 09-08-2023 ambulatory Lety M. Lue Facility:[facility] Start: 09-08-2023 End: 09-08-2023 Patient encounter procedure Lety M. Lue [facility] Start: 09-01-2023 End: 09-01-2023 ambulatory Lety M. Lue Facility:[employer] Start: 09-01-2023 End: 09-01-2023 Patient encounter procedure Lety M. Lue [facility] Start: 08-26-2023 End: 08-26-2023 ambulatory Luis Wojciech Other [employer] Other Start: 08-26-2023 Telephone encounter Luis Jeffrey [facility] Start: 08-09-2023 End: 08-09-2023 ambulatory Luis Wojciech Other [employer] Other Start: 08-09-2023 Telephone encounter Luis Wojciech [facility] Start: 08-06-2023 End: 08-06-2023 ambulatory Luis Wojciech Other [employer] Other Start: 08-06-2023 Office outpatient vi sit 25 minutes Luis Jeffrey [facility] Start: 08-04-2023 End: 08-04-2023 ambulatory Lety M. Lue Facility:[facility] [place] Start: 08-04-2023 End: 08-04-2023 Patient encounter procedure Lety M. Lue [facility] Start: 07-21-2023 End: 07-21-2023 ambulatory Lety M. Lue Facility:[facility] [place] Start: 07-21-2023 End: 07-21-2023 Patient encounter procedure Lety M. Lue [facility] Start: 07-07-2023 End: 07-07-2023 ambulatory Lety M. Lue Facility:[facility] Start: 07-07-2023 End: 07-07-2023 Patient encounter procedure Lety M. Lue [facility] Start: 06-23-2023 End: 06-23-2023 ambulatory Lety M. Lue Facility:[employer] Start: 06-23-2023 End: 06-23-2023 Patient encounter procedure Lety M. Lue [facility] [place] Start: 06-09-2023 End: 06-09-2023 ambulatory Lety M. Lue Facility:[employer] Start: 06-02-2023 End: 06-02-2023 ambulatory Lety M. Lue Facility:[employer] Start: 05-26-2023 End: 05-26-2023 ambulatory Lety M. Lue Facility:[employer] Start: 05-26-2023 End: 05-26-2023 Patient encounter procedure Lety M. Lue [facility] [place] Start: 05-12-2023 End: 05-12-2023 ambulatory Lety M. Lue Facility:[employer] Start: 05-12-2023 End: 05-12-2023 Patient encounter procedure [facility]. Lue [facility] Start: 04-28-2023 End: 04-28-2023 ambulatory Lety M. Lue Facility:[employer] Start: 04-28-2023 End: 04-28-2023 Patient encounter procedure Lety M. Lue [facility] [place] Start: 04-14-2023 End: 04-14-2023 ambulatory Lety M. Lue Facility:[employer] Start: 04-14-2023 End: 04-14-2023 Patient encounter procedure Lety M. Lue [facility] [place] Start: 03-31-2023 End: 03-31-2023 ambulatory Lety Gonzalez [facility] Start: 03-31-2023 End: 03-31-2023 Patient encounter procedure Lety Gonzalez [facility] Start: 03-29-2023 End: 03-29-2023 ambulatory Luis Jeffrey Other [employer] Other Start: 03-29-2023 Telephone encounter Luis Jeffrey [facility] Start: 03-17-2023 Telephone encounter Luis Jeffrey [facility] Start: 03-17-2023 End: 03-17-2023 ambulatory Lety Gonzalez [facility] [employer] Other Start: 03-17-2023 End: 03-17-2023 Patient encounter procedure Lety Gonzalez [facility] Start: 03-03-2023 End: 03-03-2023 Patient encounter procedure Lety Gonzalez [facility] Start: 02-24-2023 End: 02-24-2023 Lab Drop off Lety Borja. Zahraae [facility] Start: 02-24-2023 End: 02-24-2023 Patient encounter procedure Lety Borja. Zahraae [facility] Start: 02-22-2023 End: 02-22-2023 ambulatory Luis Jeffrey Other [employer] Other Start: 02-22-2023 Telephone encounter Luis Jeffrey [facility] Start: 02-17-2023 End: 02-17-2023 Patient encounter procedure HARRY MARQUEZ [facility] Start: 02-03-2023 End: 02-03-2023 Patient encounter procedure HARRY MARQUEZ [facility] Start: 01-07-2023 End: 01-07-2023 ambulatory Luis Jeffrey Other [employer] Other Start: 01-07-2023 Telephone encounter Luis Jeffrey [facility] Start: 01-06-2023 End: 01-06-2023 Patient encounter procedure Lety Gonzalez [facility] Start: 12-23-2022 End: 12-23-2022 Patient encounter procedure Lety Gonzalez [facility] Start: 12-22-2022 Office outpatient vi sit 15 minutes Luis Jeffrey Work Phone: [facility] 250 DO Work Phone: Start: 12-22-2022 ambulatory Gabino Mccormick y: Start: 12-17-2022 End: 12-18-[address] LUIS JEFFREY Facility:[facility] Start: 12-09-2022 End: 12-09-2022 ambulatory Luis Jeffrey Other [employer] Other Start: 12-09-2022 Office outpatient vi sit 15 minutes Luis Jeffrey [facility] Start: 12-09-2022 End: 12-09-2022 Patient encounter procedure Leyt Gonzalez [facility] Start: 11-25-2022 End: 11-25-2022 Patient encounter procedure Lety Gonzalez [facility] Start: 11-20-2022 End: 11-20-2022 Lab Drop off Gurwinder Sanchez SILVEIRA [facility] Start: 11-20-2022 End: 11-20-2022 Patient encounter procedure Lety Scott Zahraareddy [facility] Start: 11-18-2022 End: 11-18-2022 Lab Drop off Lety Gonzalez [facility] Start: 11-18-2022 End: 11-18-2022 Patient encounter procedure Lety Gonzalez [facility] Start: 11-11-2022 End: 11-11-2022 Patient encounter procedure Lety Gonzalez [facility] Start: 10-28-2022 End: 10-28-2022 Patient encounter procedure HARRY MARQUEZ [facility] Start: 10-20-2022 migel Mccormick y: Start: 10-13-2022 End: 10-13-2022 Patient encounter procedure HARRY MARQUEZ [facility] Start: 09-29-2022 End: 09-29-2022 Patient encounter procedure HARRY MARQUEZ [facility] Start: 09-16-2022 End: 09-16-2022 Patient encounter procedure Lety Gonzalez [facility] Start: 09-09-2022 End: 09-09-2022 Patient encounter procedure Lety Gonzalez [facility] [place] Start: 09-02-2022 End: 09-02-2022 Patient encounter procedure Lety Gonzalez [facility] Start: 08-19-2022 End: 08-19-2022 Patient encounter procedure Lety Gonzalez [facility] [place] Start: 08-11-2022 Rx Renewal Gabino Mederos n DO Work Phone: [facility] 250 DO Work Phone: Start: 08-04-2022 End: 08-05-[address] SURJIT LOPEZ . Facility:[facility] Start: 08-04-2022 Adult health examination Luis Jeffrey Other [employer] Other Start: 08-04-2022 Problem, abnormal examination Luis Jeffrey Other [employer] Other Start: 07-29-2022 End: 07-30-[address] LUIS JEFFREY Facility:[facility] Start: 07-08-2022 End: 07-08-2022 Patient encounter procedure HARRY MARQUEZ [facility] Start: 06-15-2022 Rx Renewal Gabino Mederos n DO Work Phone: [facility] 250 DO Work Phone: Start: 06-10-2022 End: 06-10-2022 Patient encounter procedure Lety Gonzalez [facility] Start: 05-22-2022 Rx Renewal Gabino Mederos n DO Work Phone: [facility] 250 DO Work Phone: Start: 05-13-2022 End: 05-14-[address] LUIS JEFFREY Facility:[facility] Start: 05-12-2022 Rx Renewal Jacqueline Tin[facility] [employer] Work Phone: [facility] 250 DO Work Phone: Start: 04-23-2022 End: 04-26-[address] CLAY EWING . Facility:[facility] Start: 04-15-2022 End: 04-16-[address] LUIS JEFFREY Facility:[facility] Start: 03-31-2022 End: 03-31-2022 Patient encounter procedure Venkat Proctor Jr. [facility] Start: 03-03-2022 End: 03-03-2022 Patient encounter procedure Venkat Proctor Jr. [facility] Start: 02-20-2022 End: 02-21-[address] LUIS JEFFREY Facility:[facility] Start: 02-03-2022 End: 02-03-2022 Patient encounter procedure Venkat Proctor Jr. [facility] Start: 01-12-2022 End: 01-13-2022 ambulatory NAM CANO Facility:[facility] Start: 01-06-2022 End: 01-06-2022 Patient encounter procedure Venkat Proctor Jr. [facility] Start: 12-09-2021 End: 12-09-2021 Patient encounter procedure Venkat Proctor Jr. [facility] Start: 07-14-2018 Patient encounter procedure PROVIDER UNKNOWN Facility:[id number] Procedures Date Procedure Procedure Detail Performing Clinician Start: 05-25-2017 Screening for malign ant neoplasm of prostate Luis Wojciech Other Start: 08-14-2013 General examination of patient Luis Wojciech Other Aortic stent (physic al object) Lety Carlos Colonoscopy Gabino Deluca DO Work Phone: Depression screening Luis Wojciech Other Great toe structure (body structure) [...] Treatment Date Care Activity Detail Author Start: 07-13-2024 End: 07-13-2024 Patient encounter procedure [facility] Comment on above: 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, unspecified whether long term care pharmacist insulin use (CMS/HCC) (Primary Dx); Foot ulcer, right, with fat layer exposed (CMS/HCC); Foot ulcer, left, with fat layer exposed (CMS/HCC) Start: 07-06-2024 End: 07-06-2024 Patient encounter procedure [facility] Comment on above: 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, unspecified whether long term care pharmacist insulin use (CMS/HCC) (Primary Dx); Foot ulcer, right, with fat layer exposed (CMS/HCC) Start: 06-29-2024 End: 06-29-2024 Patient encounter procedure 06/29/2024 11:20 AM EDT Office Visit [facility] [address] [facility] [address] [place] [phone] Gray Schmidt DPM [address] [address] Diabetes 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 polyneuropathy, unspecified whether long term care pharmacist insulin use (CMS/HCC) (Primary Dx); Foot ulcer, right, with fat layer exposed (CMS/HCC); Foot ulcer, left, with fat layer exposed (CMS/HCC) [facility] Comment on above: 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, unspecified whether long term care pharmacist insulin use (CMS/HCC) (Primary Dx); Foot ulcer, right, with fat layer exposed (CMS/HCC); Foot ulcer, left, with fat layer exposed (CMS/HCC) Start: 06-15-2024 End: 06-15-2024 Patient encounter procedure 06/15/2024 1:50 PM EDT Office Visit [facility] [address] [facility] [address] [place] [phone] Gray Schmidt DPM [address] [address] Diabetes 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 polyneuropathy, unspecified whether long term care pharmacist insulin use (CMS/HCC) (Primary Dx); Foot ulcer, right, with fat layer exposed (CMS/HCC); Foot ulcer, left, with fat layer exposed ([facility]/HCC); PVD (peripheral vascular disease) ([facility]) [facility] Comment on above: 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, unspecified whether detention insulin use ([facility]) (Primary Dx); Foot ulcer, right, with fat layer exposed ([facility]/HCC); Foot ulcer, left, with fat layer exposed ([facility]/HCC); PVD (peripheral vascular disease) ([facility]) Start: 06-15-2024 End: 06-15-2024 Patient encounter procedure 06/15/2024 8:50 AM EDT Office Visit [facility] [address] [phone] Gray Schmidt, JAIME [address] [address] [facility] Start: 06-08-2024 End: 06-08-2024 Patient encounter procedure 06/08/2024 8:50 AM EDT Office Visit [facility] [address] [phone] Gray Schmidt DPM [address] [address] Diabetes 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 polyneuropathy, unspecified whether detention insulin use ([facility]) (Primary Dx); Foot ulcer, right, with fat layer exposed ([facility]) [facility] Comment on above: 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, unspecified whether long term care pharmacist insulin use ([facility]) (Primary Dx); Foot ulcer, right, with fat layer exposed ([facility]) Start: 05-07-2024 Influenza vaccination Influenza Vacc ine (#1) [facility] Start: 04-17-2024 Patient referral [facility] Work Phone: Start: 03-01-2024 Patient referral [facility] Work Phone: Start: 12-22-2023 FUV, Provider: Jacqueline Ku, Status: Pen, Time: 10:00 AM [facility]UV, Provider: Jacqueline Ku, Status: Pen, Time: 10:00 AM [facility] 250 DO Work Phone: Start: 11-30-2023 Patient referral [facility] Work Phone: Start: 10-20-2022 FUV, Provider: Gabino Deluca, Status: Pen, Time: 9:30 AM [facility]UV, Provider: Gabino Deluca, Status: Pen, Time: 9:30 AM [facility] 250 DO Work Phone: Start: 08-05-2022 FUV, Provider: Gabino Deluca, Status: Pen, Time: 10:30 AM [facility], Provider: Gabino Deluca, Status: Pen, Time: 10:30 AM [facility] 250 DO Work Phone: Start: 1960 Screening for malign ant neoplasm of colon [facility] Ankle brachial press ure index [facility] Comprehensive metabo lic 2000 panel - Serum or Plasma [facility] Patient referral [facility] Work Phone: Lower extremity v ein - bilateral [facility] Immunizations Immunization Date Immunization Notes Care Provider Kari kruger 07-04-2021 Pfizer-BioNTech COVID-19 Vacc 30 MCG/0.3ML Intramuscular Suspension Gabino Deluca DO Work Phone: [facility] Comment on above: Result Comment: 2021: TPV60 12-01-2020 Pfizer-BioNTech COVID-19 Vacc 30 MCG/0.3ML Intramuscular Suspension Gabino Deluca DO Work Phone: [facility] Comment on above: Result Comment: 2021: TPV60 11-12-2020 Pfizer-BioNTech COVID-19 Vacc 30 MCG/0.3ML Intramuscular Suspension Gabino Deluca Work Phone: [facility] Comment on above: Result Comment: 2021: TPV60 NEGATED: Highlighted row has not occurred!09-15-2023 influenza virus vaccine, unspecified formulation Lety Gonzalez [facility] Payers Date Payer Category Payer Private Health Insurance [id number] 2024 Private Health Insurance [id number] 2023 Self-pay [id number] 2022 Unknown [id number] 1960 Unknown [id number] 2.16.840.1.784816.3.579.2.3 55 1960 Unknown [id number] 2.16.840.1.234816.3.579.2.5 93 1960 Unknown [id number] 2.16.840.1.356138.3.579.2.5 93 1960 Unknown [id number] 2.16.840.1.200307.3.579.2.5 93 1960 Unknown [id number] 2.16.840.1.457576.3.579.2.5 93 1960 Unknown [id number] 2.16.840.1.524927.3.579.2.5 93 1960 Unknown [id number] 2.16.840.1.292881.3.579.2.5 93 1960 Unknown [id number] 2.16.840.1.620494.3.579.2.5 93 1960 Unknown [id number] 2.16.840.1.571503.3.579.2.5 93 1960 Unknown [id number] 2.16.840.1.825012.3.579.2.3 56 1960 Unknown [id number] 2.16.840.1.445871.3.579.2.3 56 1960 Unknown [id number] 2.16.840.1.665069.3.579.2.7 27 1960 Unknown [id number] 2.16.840.1.640044.3.579.2.7 27 1960 Unknown [id number] 2.16.840.1.990381.3.579.2.7 27 1960 Unknown [id number] 2.16.840.1.982688.3.579.2.7 27 1960 Unknown [id number] 2.16.840.1.296656.3.579.2.7 27 1960 Unknown [id number] 2.16.840.1.846752.3.579.2.7 27 1960 Unknown [id number] 2.16.840.1.069561.3.579.2.7 27 1960 Unknown [id number] 2.16.840.1.456463.3.579.2.7 27 1960 Unknown [id number] 2.16.840.1.752140.3.579.2.7 27 1960 Unknown [id number] 2.16.840.1.693908.3.579.2.7 27 1960 Unknown [id number] 2.16.840.1.175644.3.579.2.7 27 1960 Unknown [id number] 2.16.840.1.591171.3.579.2.7 27 1960 Unknown [id number] 2.16.840.1.956166.3.579.2.7 27 1960 Unknown [id number] 2.16.840.1.055454.3.579.2.7 27 1960 Unknown [id number] 2.16.840.1.245257.3.579.2.7 27 1960 Unknown [id number] 2.16.840.1.637770.3.579.2.7 27 1960 Unknown [id number] 2.16.840.1.923886.3.579.2.7 27 1960 Unknown [id number] 2.16.840.1.753107.3.579.2.7 27 1960 Unknown [id number] 2.16.840.1.167383.3.579.2.7 27 1960 Unknown [id number] 2.16.840.1.988020.3.579.2.7 27 1960 Unknown [id number] 2.16.840.1.129043.3.579.2.7 27 1960 Unknown [id number] 2.16.840.1.623328.3.579.2.7 27 1960 Unknown [id number] 2.16.840.1.449003.3.579.2.7 27 1960 Unknown [id number] 2.16.840.1.038842.3.579.2.7 27 1960 Unknown [id number] 2.16.840.1.626647.3.579.2.7 27 1960 Unknown [id number] 2.16.840.1.420428.3.579.2.7 27 1960 Unknown [id number] 2.16.840.1.657459.3.579.2.7 27 1960 Unknown [id number] 2.16.840.1.078113.3.579.2.7 27 1960 Unknown [id number] 2.16.840.1.032261.3.579.2.7 27 1960 Unknown [id number] 2.16.840.1.030526.3.579.2.7 27 1960 Unknown [id number] 2.16.840.1.173306.3.579.2.7 27 1960 Unknown [id number] 2.16.840.1.988425.3.579.2.7 27 1960 Unknown [id number] 2.16.840.1.528214.3.579.2.7 27 1960 Unknown [id number] 2.16.840.1.857279.3.579.2.7 27 1960 Unknown [id number] 2.16.840.1.047506.3.579.2.7 27 1960 Unknown [id number] 2.16.840.1.565208.3.579.2.7 27 1960 Unknown [id number] 2.16.840.1.701996.3.579.2.7 1960 Unknown [id number] 2.16.840.1.377665.3.579.2.7 27 1960 Unknown [id number] 2.16.840.1.014921.3.579.2.7 1960 Unknown [id number] 2.16.840.1.815304.3.579.2.7 27 1960 Unknown [id number] 2.16.840.1.195320.3.579.2.7 27 1960 Unknown [id number] 2.16.840.1.247121.3.579.2.7 27 1960 Unknown [id number] 2.16.840.1.024281.3.579.2.7 27 1960 Unknown [id number] 2.16.840.1.626277.3.579.2.7 27 1960 Unknown [id number] 2.16.840.1.582709.3.579.2.7 27 1960 Unknown [id number] 2.16.840.1.393968.3.579.2.7 27 1960 Unknown [id number] 2.16.840.1.304559.3.579.2.1 259 1960 Unknown [id number] 2.16.840.1.642912.3.579.2.1 259 1960 Unknown [id number] 2.16.840.1.629656.3.579.2.1 259 1960 Unknown [id number] 2.16.840.1.971974.3.579.2.1 259 1960 Unknown [id number] 2.16.840.1.904626.3.579.2.1 259 1960 Unknown [id number] 2.16.840.1.329715.3.579.2.1 259 1960 Unknown [id number] 2.16.840.1.005782.3.579.2.1 259 1960 Unknown [id number] 2.16.840.1.808100.3.579.2.1 259 1960 Unknown [id number] 2.16.840.1.948950.3.579.2.1 259 1960 Unknown [id number] 2.16.840.1.958477.3.579.2.1 259 1959 Unknown [id number] Private Health Insurance [facility] BETTY [id number] Unknown COMMERCIAL Unknown [employer] [id number] Social History Date Type Detail Facility Start: 07-03-2021 End: 05-04-2024 Tobacco smoking status Ex-smoker (finding) [facility] Start: 06-01-2024 End: 07-06-2024 Sex Assigned At Male [facility] [place] Start: 05-04-2024 End: 07-06-2024 Caffeine use Caffeine use [facility] 250 DO Work Phone: Comment on above: coffee all day long; quit 2012 1ppd; Tobacco smoking status Never [facility] Start: 1960 Sex Assigned At Male F [facility] Start: 05-04-2004 History of tobacco use Current smoke r [facility] Start: 05-04-2004 History of tobacco use Cigarette Smo ker [facility] Start: 05-04-2024 Tobacco use and exposure Smokeless tobacco non-user [facility] Start: 06-01-2024 End: 07-13-2024 Alcoholic beverage intake Defer [facility] Start: 1960 Sex assigned at Not on file [facility] Medical Equipment Procedure Code Equipment Code Equipment Origin al Text Equipment Identifier Dates Start: 11-25-2022 Lancets (Freesty le Lancets) 28 gauge misc Start: 11-16-2023 Lancets (Freesty le Lancets) 28 gauge misc Start: 11-16-2023 End: 11-16-2023 Lancets ([employer]esty le Lancets) 28 gauge misc Start: 11-16-2023 Lancets ([employer]esty le Lancets) 28 gauge misc Start: 11-16-2023 End: 11-16-2023 Lancets ([employer]esty le Lancets) 28 gauge misc Start: 11-16-2023 Lancets ([employer]esty le Lancets) 28 gauge misc Start: 11-16-2023 End: 11-16-2023 Lancets ([employer]esty le Lancets) 28 gauge misc Start: 11-16-2023 Lancets ([employer]esty le Lancets) 28 gauge misc Start: 11-16-2023 End: 11-16-2023 Lancets (Freesty le Lancets) 28 gauge misc Start: 11-16-2023 Lancets ([employer] Lancets) 28 gauge misc Start: 11-16-2023 End: 11-16-2023 Functional Status Date Assessment Result Facility 03-08-2024 Functional Status N/A [facility] 09-15-2023 Functional Status N/A [facility] 03-03-2023 Functional Status No [facility] 11-25-2022 Functional Status N/A [facility] 09-09-2022 Functional Status N/A [facility] 08-19-2022 Functional Status N/A [facility] Clinical Notes 05-27-2022 to 07-13-2024 Gray Schmidt DPM - 07/13/2024 11:00 AM Kia Schmidt DPM - 07/06/2024 11:10 AM EDRaj Schmidt DPM - 06/29/2024 11:20 AM EDRaj Schmidt DPM - 06/15/2024 8:50 AM EDT Note Date & Type Note Facility 07-13-2024 History of Present illness Narrative Patient: Johnathan Chelsy Ambrosio : 1960 PCP: Luis Jeffrey MD SUBJECTIVE This is a 63 y.o. male that presents today for a follow up of right great toe ulceration with recent epidermal skin graft to right and left foot ulcerations with epidermal skin graft Patient denies n/f/v/c. Patient states he has been keeping dressing dry and intact Patient is 22 days post right and left foot epidermal skin grafts. He present today for follow up of ulceration to right foot. Pt denies any n/f/v/c. Patient states that they have been using the following treatments for the ulcer of mediney every other day. Pt is a DM2. Allergies: Allergies Allergen Reactions Metformin Diarrhea and GI intolerance Other Reaction(s): Abdominal Pain, diarrhea, Stomach cramps Vancomycin Rash Past Medical History: Past Medical History: Diagnosis Date Diabetes ([facility]) Hypertension ([facility]) Medications: Current Outpatient Medications: amLODIPine (Norvasc) 5 MG tablet, Daily, Disp: , Rfl: aspirin 81 MG chewable tablet, Daily, Disp: , Rfl: atorvastatin (Lipitor) 20 MG tablet, Daily, Disp: , Rfl: carvedilol (Coreg) 12.5 MG tablet, Twice daily, Disp: , Rfl: citalopram (CeleXA) 40 MG tablet, .COMPLEX, Disp: , Rfl: glipiZIDE XL (Glucotrol XL) 10 MG 24 hr tablet, .COMPLEX, Disp: , Rfl: hyoscyamine ER (Levbid) 0.375 MG 12 hr tablet, Take 375 mcg by mouth in the morning and 375 mcg before bedtime., Disp: , Rfl: lisinopril 5 MG tablet, Twice daily, Disp: , Rfl: omeprazole (PriLOSEC) [address] capsule, .COMPLEX, Disp: , Rfl: Social History: Social History Socioeconomic History Marital status: Spouse name: Not on file Number of children: Not on file Years of education: Not on file Highest education level: Not on file Occupational History Not on file Tobacco Use Smoking status: Former Current packs/day: 1.00 Average packs/day: 1 pack/day for 20.2 years (20.2 ttl pk-yrs) Types: Cigarettes Start date: 05/04/2004 Smokeless tobacco: Never Vaping Use Vaping status: Unknown Substance and Sexual Activity Alcohol use: Defer Drug use: Defer Sexual activity: Defer Other Topics Concern Not on file Social History Narrative Not on file Social Drivers of Health Financial Resource Strain: Not on file Food Insecurity: Not on file Transportation Needs: Not on file Physical Activity: Not on file Stress: Not on file Social Connections: Not on file Intimate Partner Violence: Unknown (10/28/2023) Received from [facility] Safety & Environment Fear of Current or Ex-Partner: Not on file Emotionally Abused: Not on file Physically Abused: Not on file Sexually Abused: Not on file Physically or Sexually Abused: Not on file Housing Stability: Not on file ROS: General: denies fever, chills, fatigue, malaise GI: denies abdominal pain or ulcerations with anti-inflammatory medication Cardiovascular: denies CP, palpitations, irregular rhythms. Old history of SD and cardiac stents OBJECTIVE LE EXAM: DERM: negative hair growth to b/l feet with thin skin noted Ulceration and graft present to the plantar aspect of the right great toe that has healed with negative erythema or drainage Left medial foot has a healed ulceration with skin present with negative erythema or drainage Plantar right left heel has area of slightly diminished hyperkeratotic tissue with deep fissures with negative drainage and positive dry and scaly skin noted to bilateral feet VASC: Non Palpable pedal pulsed b/l with warm to cool tibia to toes b/l NEURO: 5.[address] monofilament test intact to digits and forefoot bilaterally 125Hz tuning fork diminished to 1st MPJ bilaterally ORTHO: +5/5 DF/PF/IN/EV right, +5/5 DF/PF/IN/EV left. 20 degrees inversion and 10 degrees eversion STJ b/l. Ankle ROM less than 10 degrees b/l. Negative pain on palpation to right hallux ulcer and left foot ulcerations DUSTIN PVR: [place] report reviewed today with findings of mild PVD right-sided DUSTIN TBI of 0.85 0.91 and TBI of right side 0.91 and left 0.84. 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 Diabetes 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 polyneuropathy, unspecified whether long term care pharmacist insulin use ([facility]) 2. Foot ulcer, right, with fat layer exposed ([facility]) 3. Foot ulcer, left, with fat layer exposed ([facility]) PLAN Patient observe for any changes to his foot and if has any issues to contact Podiatry but otherwise he is leaving for 5 weeks to the [facility] and will contact Podiatry if any further issues Advised patient to wear shoe gear that is appropriate for the area Patient educated today on proper diabetic foot care including monitoring feet daily for any signs of infection openings in the skin or irregularities to both feet. Patient had a diabetic neurological exam today to both their feet and discussed proper shoe gear. Gray Schmidt DPM documented in this encounter [facility] 07-06-2024 History of Present illness Narrative Patient: Johnathan Ambrosio : 1960 PCP: Luis Jeffrey MD SUBJECTIVE This is a 63 y.o. male that presents today for a follow up of right great toe ulceration with recent epidermal skin graft to right and left foot ulcerations with epidermal skin graft Patient denies n/f/v/c. Patient states he has been keeping dressing dry and intact Patient is 15 days post right and left foot epidermal skin grafts. He present today for follow up of ulceration to right foot. Pt denies any n/f/v/c. Patient states that they have been using the following treatments for the ulcer of [facility] every other day. Pt is a DM2. Allergies: Allergies Allergen Reactions Metformin Diarrhea and GI intolerance Other Reaction(s): Abdominal Pain, diarrhea, Stomach cramps Vancomycin Rash Past Medical History: Past Medical History: Diagnosis Date Diabetes ([facility]) Hypertension ([facility]) Medications: Current Outpatient Medications: amLODIPine (Norvasc) 5 MG tablet, Daily, Disp: , Rfl: aspirin 81 MG chewable tablet, Daily, Disp: , Rfl: atorvastatin (Lipitor) 20 MG tablet, Daily, Disp: , Rfl: carvedilol (Coreg) 12.5 MG tablet, Twice daily, Disp: , Rfl: citalopram (CeleXA) 40 MG tablet, .COMPLEX, Disp: , Rfl: glipiZIDE XL (Glucotrol XL) 10 MG 24 hr tablet, .COMPLEX, Disp: , Rfl: hyoscyamine ER (Levbid) 0.375 MG 12 hr tablet, Take 375 mcg by mouth in the morning and 375 mcg before bedtime., Disp: , Rfl: lisinopril 5 MG tablet, Twice daily, Disp: , Rfl: omeprazole (PriLOSEC) [address] capsule, .COMPLEX, Disp: , Rfl: Social History: Social History Socioeconomic History Marital status: Spouse name: Not on file Number of children: Not on file Years of education: Not on file Highest education level: Not on file Occupational History Not on file Tobacco Use Smoking status: Former Current packs/day: 1.00 Average packs/day: 1 pack/day for 20.2 years (20.2 ttl pk-yrs) Types: Cigarettes Start date: 05/04/2004 Smokeless tobacco: Never Vaping Use Vaping status: Unknown Substance and Sexual Activity Alcohol use: Defer Drug use: Defer Sexual activity: Defer Other Topics Concern Not on file Social History Narrative Not on file Social Drivers of Health Financial Resource Strain: Not on file Food Insecurity: Not on file Transportation Needs: Not on file Physical Activity: Not on file Stress: Not on file Social Connections: Not on file Intimate Partner Violence: Unknown (10/28/2023) Received from [facility] Safety & Environment Fear of Current or Ex-Partner: Not on file Emotionally Abused: Not on file Physically Abused: Not on file Sexually Abused: Not on file Physically or Sexually Abused: Not on file Housing Stability: Not on file ROS: General: denies fever, chills, fatigue, malaise GI: denies abdominal pain or ulcerations with anti-inflammatory medication Cardiovascular: denies CP, palpitations, irregular rhythms. Old history of SD and cardiac stents OBJECTIVE LE EXAM: DERM: negative hair growth to b/l feet with thin skin noted Ulceration and graft present to the plantar aspect of the right great toe that measures 0.1 cm x 0.1 cm x 0.2 cm subcutaneous thickness depth with negative erythema negative probe to bone and slight fibrous slough with minimal serous drainage Left medial foot has a healed ulceration with skin present with negative erythema or drainage Plantar right left heel has area of slightly diminished hyperkeratotic tissue with deep fissures with negative drainage and positive dry and scaly skin noted to bilateral feet VASC: Non Palpable pedal pulsed b/l with warm to cool tibia to toes b/l NEURO: 5.[address] monofilament test intact to digits and forefoot bilaterally 125Hz tuning fork diminished to 1st MPJ bilaterally ORTHO: +5/5 DF/PF/IN/EV right, +5/5 DF/PF/IN/EV left. 20 degrees inversion and 10 degrees eversion STJ b/l. Ankle ROM less than 10 degrees b/l. Negative pain on palpation to right hallux ulcer and left foot ulcerations DUSTIN PVR: [place] report reviewed today with findings of mild PVD right-sided DUSTIN TBI of 0.85 0.91 and TBI of right side 0.91 and left 0.84. TBI are normal with DUSTIN suggest mild bilateral arterial occlusive disease ASSESSMENT 15 days postop right and left foot epidermal skin graft 2 ulcerations 1. Diabetes 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 polyneuropathy, unspecified whether detention insulin use ([facility]) 2. Foot ulcer, right, with fat layer exposed ([facility]) PLAN Sharp debridement with 15 blade of subcutaneous ulceration to right and foot with active bleeding noted and removal and excision of fibrotic and necrotic tissue to wound and DSD applied with neosporin. Pt to continue with Medihoney every other day. Today's procedure is a staged procedure and patient may need further procedures in the future. Gray Schmidt DPM documented in this encounter [facility] 06-29-2024 History of Present illness Narrative Patient: Johnathan Ambrosio : 1960 PCP: Luis Jeffrey MD SUBJECTIVE This is a 63 y.o. male that presents today for a follow up of right great toe ulceration with recent epidermal skin graft and left foot ulceration with epidermal skin graft Patient denies n/f/v/c. Patient states he has been keeping dressing dry and intact Patient is 8 days post right and left foot epidermal skin grafts. Allergies: Allergies Allergen Reactions Metformin Diarrhea and GI intolerance Other Reaction(s): Abdominal Pain, diarrhea, Stomach cramps Vancomycin Rash Past Medical History: Past Medical History: Diagnosis Date Diabetes ([facility]) Hypertension ([facility]) Medications: Current Outpatient Medications: amLODIPine (Norvasc) 5 MG tablet, Daily, Disp: , Rfl: aspirin 81 MG chewable tablet, Daily, Disp: , Rfl: atorvastatin (Lipitor) 20 MG tablet, Daily, Disp: , Rfl: carvedilol (Coreg) 12.5 MG tablet, Twice daily, Disp: , Rfl: citalopram (CeleXA) 40 MG tablet, .COMPLEX, Disp: , Rfl: glipiZIDE XL (Glucotrol XL) 10 MG 24 hr tablet, .COMPLEX, Disp: , Rfl: hyoscyamine ER (Levbid) 0.375 MG 12 hr tablet, Take 375 mcg by mouth in the morning and 375 mcg before bedtime., Disp: , Rfl: lisinopril 5 MG tablet, Twice daily, Disp: , Rfl: omeprazole (PriLOSEC) 40 MG [facility] [place], Disp: , Rfl: Social History: Social History Socioeconomic History Marital status: Spouse name: Not on file Number of children: Not on file Years of education: Not on file Highest education level: Not on file Occupational History Not on file Tobacco Use Smoking status: Former Current packs/day: 1.00 Average packs/day: 1 pack/day for 20.1 years (20.1 ttl pk-yrs) Types: Cigarettes Start date: 05/04/2004 Smokeless tobacco: Never Vaping Use Vaping status: Unknown Substance and Sexual Activity Alcohol use: Defer Drug use: Defer Sexual activity: Defer Other Topics Concern Not on file Social History Narrative Not on file Social Drivers of Health Financial Resource Strain: Not on file Food Insecurity: Not on file Transportation Needs: Not on file Physical Activity: Not on file Stress: Not on file Social Connections: Not on file Intimate Partner Violence: Unknown (10/28/2023) Received from [facility] [place] Safety & Environment Fear of Current or Ex-Partner: Not on file Emotionally Abused: Not on file Physically Abused: Not on file Sexually Abused: Not on file Physically or Sexually Abused: Not on file Housing Stability: Not on file ROS: General: denies fever, chills, fatigue, malaise GI: denies abdominal pain or ulcerations with anti-inflammatory medication Cardiovascular: denies CP, palpitations, irregular rhythms. Old history of SD and cardiac stents OBJECTIVE LE EXAM: DERM: negative hair growth to b/l feet with thin skin noted Ulceration and graft present to the plantar aspect of the right great toe that measures 0.2 cm x 0.3 cm x 0.2 cm subcutaneous thickness depth with negative erythema negative probe to bone and slight fibrous slough with minimal serous drainage Left medial foot has a healed ulceration with skin present with negative erythema or drainage Plantar right left heel has area of slightly diminished hyperkeratotic tissue with deep fissures with negative drainage and positive dry and scaly skin noted to bilateral feet VASC: Non Palpable pedal pulsed b/l with warm to cool tibia to toes b/l NEURO: 5.[address] monofilament test intact to digits and forefoot bilaterally 125Hz tuning fork diminished to 1st MPJ bilaterally ORTHO: +5/5 DF/PF/IN/EV right, +5/5 DF/PF/IN/EV left. 20 degrees inversion and 10 degrees eversion STJ b/l. Ankle ROM less than 10 degrees b/l. Negative pain on palpation to right hallux ulcer and left foot ulcerations DUSTIN PVR: [place] report reviewed today with findings of mild PVD right-sided DUSTIN TBI of 0.85 0.91 and TBI of right side 0.91 and left 0.84. TBI are normal with DUSTIN suggest mild bilateral arterial occlusive disease ASSESSMENT Eight days postop right and left foot epidermal skin graft 2 ulcerations 1. Diabetes 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 polyneuropathy, unspecified whether long term care pharmacist insulin use ([facility]) 2. Foot ulcer, right, with fat layer exposed ([facility]) PLAN Sharp debridement with 15 blade of subcutaneous ulceration to right and foot with active bleeding noted and removal and excision of fibrotic and necrotic tissue to wound and DSD applied with neosporin. Pt to continue with Medihoney every other day. Today's procedure is a staged procedure and patient may need further procedures in the future. Gray Schmidt DPM documented in this encounter [facility] 06-15-2024 History of Present illness Narrative Patient: Johnathan Ambrosio : 1960 PCP: Luis Jeffrey MD SUBJECTIVE This is a 63 y.o. male that presents today for a chief complaint of ulceration of the right great toe which he has been applying Betadine to. Patient states ulceration present for the past 8 weeks . Denies nausea vomiting chills . Pt also presents today with secondary complaints of dry scaly skin to feet. Pt states that they have been using urea cream and states some improvement and relief.. Patient is type 2 diabetic with uncontrolled sugars Patient had DUSTIN PVRs at local hospital With notable mild PVD He presents today for preoperative evaluation for right and left epidermal skin grafts in the near future. Patient also has issues to the left foot with ulceration to the medial aspect and place Betadine daily and denies redness or fevers vomiting chills Allergies: Allergies Allergen Reactions Metformin Diarrhea and GI intolerance Other Reaction(s): Abdominal Pain, diarrhea, Stomach cramps Vancomycin Rash Past Medical History: Past Medical History: Diagnosis Date Diabetes ([facility]) Hypertension ([facility]) Medications: Current Outpatient Medications: amLODIPine (Norvasc) 5 MG tablet, Daily, Disp: , Rfl: aspirin 81 MG chewable tablet, Daily, Disp: , Rfl: atorvastatin (Lipitor) 20 MG tablet, Daily, Disp: , Rfl: carvedilol (Coreg) 12.5 MG tablet, Twice daily, Disp: , Rfl: citalopram (CeleXA) 40 MG tablet, .COMPLEX, Disp: , Rfl: glipiZIDE XL (Glucotrol XL) 10 MG 24 hr tablet, .COMPLEX, Disp: , Rfl: hyoscyamine ER (Levbid) 0.375 MG 12 hr tablet, Take 375 mcg by mouth in the morning and 375 mcg before bedtime., Disp: , Rfl: lisinopril 5 MG tablet, Twice daily, Disp: , Rfl: omeprazole (PriLOSEC) [address] capsule, .COMPLEX, Disp: , Rfl: Social History: Social History Socioeconomic History Marital status: Spouse name: Not on file Number of children: Not on file Years of education: Not on file Highest education level: Not on file Occupational History Not on file Tobacco Use Smoking status: Former Current packs/day: 1.00 Average packs/day: 1 pack/day for 20.1 years (20.1 ttl pk-yrs) Types: Cigarettes Start date: 05/04/2004 Smokeless tobacco: Never Vaping Use Vaping status: Unknown Substance and Sexual Activity Alcohol use: Defer Drug use: Defer Sexual activity: Defer Other Topics Concern Not on file Social History Narrative Not on file Social Determinants of Health Financial Resource Strain: Not on file Food Insecurity: Not on file Transportation Needs: Not on file Physical Activity: Not on file Stress: Not on file Social Connections: Not on file Intimate Partner Violence: Unknown (10/28/2023) Received from [facility] [place] Safety & Environment Fear of Current or Ex-Partner: Not on file Emotionally Abused: Not on file Physically Abused: Not on file Sexually Abused: Not on file Physically or Sexually Abused: Not on file Housing Stability: Not on file ROS: General: denies fever, chills, fatigue, malaise GI: denies abdominal pain or ulcerations with anti-inflammatory medication Cardiovascular: denies CP, palpitations, irregular rhythms. Old history of SD and cardiac stents OBJECTIVE LE EXAM: DERM: negative hair growth to b/l feet with thin skin noted Ulceration present to the plantar aspect of the right great toe that measures 0.4 cm x 0.3 cm x 0.2 cm subcutaneous thickness depth with negative erythema negative probe to bone and positive fibrous slough with slight serous drainage Left medial foot has 1.5 x 0.5 x 0.2 subcutaneous thickness depth ulceration with slight fibrous slough with negative erythema and slight maceration of the tissue with negative probe to bone Plantar right left heel has area of slightly diminished hyperkeratotic tissue with deep fissures with negative drainage and positive dry and scaly skin noted to bilateral feet VASC: Non Palpable pedal pulsed b/l with warm to cool tibia to toes b/l NEURO: 5.[address] monofilament test intact to digits and forefoot bilaterally 125Hz tuning fork diminished to 1st MPJ bilaterally ORTHO: +5/5 DF/PF/IN/EV right, +5/5 DF/PF/IN/EV left. 20 degrees inversion and 10 degrees eversion STJ b/l. Ankle ROM less than 10 degrees b/l. Negative pain on palpation to right hallux ulcer DUSTIN PVR: [place] report reviewed today with findings of mild PVD right-sided DUSTIN TBI of 0.85 0.91 and TBI of right side 0.91 and left 0.84. TBI are normal with DUSTIN suggest mild bilateral arterial occlusive disease ASSESSMENT 1. Diabetes 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 polyneuropathy, unspecified whether detention insulin use ([facility]) 2. Foot ulcer, right, with fat layer exposed ([facility]) 3. Foot ulcer, left, with fat layer exposed ([facility]) 4. PVD (peripheral vascular disease) ([facility]) PLAN Decision for surgery today and patient medically cleared from a podiatric standpoint for surgery and to proceed with surgery. Pt scheduled for right and left foot preparation of ulcerations for skin grafting with application of EDSG from thigh to b/l ulcerations. Discussed with the patient the nature of condition and operative vs nonoperative care. The surgical plans, risks, alternatives, benefits, post op complications and long term care pharmacist expectations were discussed including but not limited to: infection,bone infection,wound dehiscence hardware failure and irritation,wound dehiscence,delay union/mal union/non union of bone. RSDS,neuroma,duty limitations,DVT/PE, SD,nerve damage, scar, loss of sensation, swelling. Pt understands the proposed sx in detail and has agreed with proposed surgery. No guarantees were given or implied. Pt willingly consents to procedure and to have surgical procedure. Pt also understands risks including COVID-19 current risk in a surgical setting. Pt is a low acceptable risk for outpatient surgery from a podiatric standpoint with an ASA of a 2. Gray Schmidt DPM, FACFAS June 15, 2024 H&P up to date and current (date) Gray Schmidt DPM documented in this encounter [facility] 06-08-2024 History of Present illness Narrative Patient: Johnathan Ambrosio : 1960 PCP: Luis Jeffrey MD SUBJECTIVE This is a 63 y.o. male that presents today for a chief complaint of ulceration of the right great toe which he has been applying Amerigel to. Patient states ulceration present for the past 7 weeks . Denies nausea vomiting chills . Pt also presents today with secondary complaints of dry scaly skin to feet. Pt states that they have been using urea cream and states some improvement and relief.. Patient is type 2 diabetic with uncontrolled sugars Patient had [place]USTIN PVRs at local hospital With notable mild PVD Patient also has issues to the right foot with ulceration to the medial aspect and place Betadine daily and denies redness or fevers vomiting chills Allergies: Allergies Allergen Reactions Metformin Diarrhea and GI intolerance Other Reaction(s): Abdominal Pain, diarrhea, Stomach cramps Vancomycin Rash Past Medical History: Past Medical History: Diagnosis Date Diabetes ([facility]) Hypertension ([facility]) Medications: Current Outpatient Medications: amLODIPine (Norvasc) 5 MG tablet, Daily, Disp: , Rfl: aspirin 81 MG chewable tablet, Daily, Disp: , Rfl: atorvastatin (Lipitor) 20 MG tablet, Daily, Disp: , Rfl: carvedilol (Coreg) 12.5 MG tablet, Twice daily, Disp: , Rfl: citalopram (CeleXA) 40 MG tablet, .COMPLEX, Disp: , Rfl: glipiZIDE XL (Glucotrol XL) 10 MG 24 hr tablet, .COMPLEX, Disp: , Rfl: hyoscyamine ER (Levbid) 0.375 MG 12 hr tablet, Take 375 mcg by mouth in the morning and 375 mcg before bedtime., Disp: , Rfl: lisinopril 5 MG tablet, Twice daily, Disp: , Rfl: omeprazole (PriLOSEC) [address] capsule, .COMPLEX, Disp: , Rfl: Social History: Social History Socioeconomic History Marital status: Spouse name: Not on file Number of children: Not on file Years of education: Not on file Highest education level: Not on file Occupational History Not on file Tobacco Use Smoking status: Former Current packs/day: 1.00 Average packs/day: 1 pack/day for 20.1 years (20.1 ttl pk-yrs) Types: Cigarettes Start date: 05/04/2004 Smokeless tobacco: Never Vaping Use Vaping status: Unknown Substance and Sexual Activity Alcohol use: Defer Drug use: Defer Sexual activity: Defer Other Topics Concern Not on file Social History Narrative Not on file Social Determinants of Health Financial Resource Strain: Not on file Food Insecurity: Not on file Transportation Needs: Not on file Physical Activity: Not on file Stress: Not on file Social Connections: Not on file Intimate Partner Violence: Unknown (10/28/2023) Received from [facility] [place] Safety & Environment Fear of Current or Ex-Partner: Not on file Emotionally Abused: Not on file Physically Abused: Not on file Sexually Abused: Not on file Physically or Sexually Abused: Not on file Housing Stability: Not on file ROS: General: denies fever, chills, fatigue, malaise GI: denies abdominal pain or ulcerations with anti-inflammatory medication Cardiovascular: denies CP, palpitations, irregular rhythms. Old history of SD and cardiac stents OBJECTIVE LE EXAM: DERM: negative hair growth to b/l feet with thin skin noted Ulceration present to the plantar aspect of the right great toe that measures 0.4 cm x 0.3 cm x 0.2 cm subcutaneous thickness depth with negative erythema negative probe to bone and positive fibrous slough with slight serous drainage Left medial foot has 1.5 x 0.5 x 0.2 subcutaneous thickness depth ulceration with slight fibrous slough with negative erythema and slight maceration of the tissue with negative probe to bone Plantar right left heel has area of slightly diminished hyperkeratotic tissue with deep fissures with negative drainage and positive dry and scaly skin noted to bilateral feet VASC: Non Palpable pedal pulsed b/l with warm to cool tibia to toes b/l NEURO: 5.[address] monofilament test intact to digits and forefoot bilaterally 125Hz tuning fork diminished to 1st MPJ bilaterally ORTHO: +5/5 DF/PF/IN/EV right, +5/5 DF/PF/IN/EV left. 20 degrees inversion and 10 degrees eversion STJ b/l. Ankle ROM less than 10 degrees b/l. Negative pain on palpation to right hallux ulcer DUSTIN PVR: [place] report reviewed today with findings of mild PVD right-sided DUSTIN TBI of 0.85 0.91 and TBI of right side 0.91 and left 0.84. TBI are normal with DUSTIN suggest mild bilateral arterial occlusive disease ASSESSMENT 1. Diabetes 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 polyneuropathy, unspecified whether long term care pharmacist insulin use ([facility]) 2. Foot ulcer, right, with fat layer exposed ([facility]/HCC) 3. Foot ulcer, left, with fat layer exposed ([facility]/HCC) PLAN Patient education on condition and treatment of condition. Continues urea cream daily to the right heel fissure and dry skin to feet bilaterally. Reviewed DUSTIN PVRs from [facility] with findings of mild PVD and most likely no intervention at this time Sharp debridement with 15 blade of subcutaneous ulceration to right foot with active bleeding noted and removal and excision of fibrotic and necrotic tissue to wound and DSD applied with neosporin. Pt to continue with Betadine daily Patient also apply Betadine daily with dry sterile dressing to left foot ulcer Patient most likely have epidermal skin graft near future follow up in 1 week for most likely preop Gray Schmidt DPM documented in this encounter [facility] 03-08-2024 Hospital Discharge instructions Patient Education 03/08/2024 08:44:04 Hypogonadism, Male Hypogonadism, Male Male hypogonadism is a condition of having a level of testosterone that is lower than normal. Testosterone is a chemical, or hormone, that is made mainly in the testicles. In boys, testosterone is responsible for the development of male characteristics during puberty. These include: Making the penis bigger. Growing and building the muscles. Growing facial hair. Deepening the voice. In adult men, testosterone is responsible for maintaining: An interest in sex and the ability to have sex. Muscle mass. Sperm production. Red blood cell production. Bone strength. Testosterone also gives men energy [...] the causes? This condition is caused by: A natural decrease in testosterone that occurs as a man grows older. This is the main cause of this condition. Use of medicines, such as antidepressants, steroids, and opioids. Diseases and conditions that affect the testicles or the making of testosterone. These include: ?Injury or damage to the testicles from trauma, cancer, cancer treatment, or infection. ?Diabetes. ?Sleep apnea. ?Genetic conditions that men are born with. ?Disease of the pituitary gland. This gland is in the brain. It produces hormones. ?Obesity. ?Metabolic syndrome. This is a group of diseases that affect blood pressure, blood sugar, cholesterol, and belly fat. ?HIV or AIDS. ?Alcohol abuse. ?Kidney failure. ?Other long-term or chronic diseases. What are the signs or symptoms? Common symptoms of this condition include: Loss of interest in sex (low sex drive). Inability to have or maintain an erection (erectile dysfunction). Feeling tired (fatigue). Mood changes, like irritability or depression. Loss of muscle and body hair. Infertility. Large breasts. Weight gain (obesity). How is this diagnosed? Your health care provider can diagnose hypogonadism based on: Your signs and symptoms. A physical exam to check your testosterone [...] replacement therapy. Testosterone can be given by: Injection or through pellets inserted under the skin. Gels or patches placed on the skin or in the mouth. Testosterone therapy is not for everyone. It has risks and side effects. Your health care provider will consider your medical history, your risk for prostate cancer, your age, and your symptoms before putting you on testosterone replacement therapy. Follow these instructions at home: Take dohx-xgx-unaapzq and prescription medicines only as told by your health care provider. Eat foods that are high in fiber, such as beans, whole grains, and fresh fruits and vegetables. Limit foods that are high in fat and processed sugars, such as fried or sweet foods. If you drink alcohol: ?Limit how much you have to 0 2 drinks a day. ?Know how much alcohol is in your drink. In the [place] one drink equals one 12 oz bottle of beer (355 mL), one 5 oz glass of wine (148 mL), or one 1 oz glass of hard liquor (44 mL). Return to your normal activities as told by your health care provider. Ask your health care provider what activities are safe for you. Keep all follow-up visits. This is important. Contact a health care provider if: You have any of the signs or symptoms of low testosterone. You have any side effects from testosterone therapy. Summary Male hypogonadism is a condition of having a level of testosterone that is lower than normal. The natural drop in testosterone production that occurs with age is the most common cause of this condition. Low testosterone can also be caused by many diseases and conditions that affect the testicles and the making of testosterone. This condition is treated with testosterone replacement therapy. There are risks and side effects of [...] health care provider. Document Revised: 04/24/2021 Document Reviewed: 04/24/2021 Elsevier Patient Education 2022 [email or web address]. Follow Up Care 09/15/2023 08:45:51 With:Carlos LIZAMA, SHAYY Hernandes, URO Address: [address] [place] [address]- [phone] When: Unknown [facility] 03-08-2024 Note Patient Education Urology Hypogonadism, Male Male hypogonadism [...] Follow these instructions at home: ? Take ayzb-yys-daihuwo and prescription medicines only as told by [...] with your health care provider. Document Revised: (more content not included)... [facility] 09-15-2023 Hospital Discharge instructions Patient Education 09/15/2023 08:36:20 Erectile Dysfunction [...] Follow these instructions at home: Medicines Take untk-dpz-bgphgig and prescription medicines only as told by [...] provider. Document Revised: 11/19/2021 Document Reviewed: 11/19/2021 [employer] Patient Education 2022 [email or web address]. Follow Up Care 06/09/2023 08:31:20 With:Carlos LIZAMA, SHAYY Hernandes, URO Address: [address], [place] [phone] When: Unknown Comments:3 mos w/ PSA, T level, and HCT [facility] 08-06-2023 Evaluation note Encounter Date Diagnosis Assessment [...] to encourage exercise and elevate legs prn [employer] Other 07-12-2023 Evaluation note* Encounter Date Diagnosis Assessment Notes Treatment Notes Treatment Clinical Notes Mar, Abdominal pain (ICD-10 - R10.9) [employer] Other 06-28-2023 Hospital Discharge instructions Follow Up Care 03/03/2023 10:42:41 With:Carlos LIZAMA, Lety Scott, SHAYY, URO Address: [address] [place] [phone] When:Within 2 Week(s) Comments:Will return in 2wks for next injection.Will see Dr Gonzalez end of May with PSA T & HCT & HGB. [facility] 06-28-2023 Hospital Discharge instructions Patient Education 03/03/2023 [...] Follow these instructions at home: Medicines Take mtvy-awa-qpuicbc and prescription medicines only as told by [...] provider. Document Revised: 11/19/2021 Document Reviewed: 11/19/2021 [employer] Patient Education 2022 [email or web address]. Follow Up Care 11/25/2022 10:57:18 With:Carlos LIZAMA, SHAYY Hernandes, URO Address: When: Unknown [facility] 04-05-2023 Evaluation note* Encounter Date Diagnosis Assessment Notes Treatment Notes Treatment Clinical Notes Dec, Essential (primary) hypertension (ICD-10 - I10) chronic problem - has followup w cardio in January. Dec, Type 2 diabetes mellitus with hyperglycemia, without long-term current use of insulin (ICD-10 - E11.65) states average glucose is 150-180. will add actose and check cost. [employer] Other 03-22-2023 Hospital Discharge instructions Patient Education [...] 11/29/2001 Document Revised: 12/14/2019 Document Reviewed: 07/19/2017 [employer] Patient Education 2020 [email or web address]. Follow Up Care 10/13/2022 08:47:51 With:Carlos LIZAMA, SHAYY Hernandes, URO Address: When: Unknown [facility] 01-04-2023 Hospital Discharge instructions Patient Education 09/09/2022 [...] Follow these instructions at home: Medicines Take uxjg-uzv-ikkgfkk and prescription medicines only as told by [...] 08/20/2001 Document Revised: 08/05/2018 Document Reviewed: 09/08/2017 [employer] Patient Education 2019 [email or web address]. [facility] 12-14-2022 Hospital Discharge instructions Patient Education 08/19/2022 [...] Follow these instructions at home: Medicines Take xmxl-xtp-ajhdqpv and prescription medicines only as told by [...] 08/20/2001 Document Revised: 08/05/2018 Document Reviewed: 09/08/2017 [employer] Patient Education 2020 [email or web address] Follow Up Care 08/10/2022 15:26:30 With:Lety Gonzalez MD, SHAYY, URO Address: When:3 months Comments:W/ PSA/testosterone/ & hemaglobin [facility] 09-21-2022 Hospital Discharge instructions Follow Up Care 05/27/2022 09:36:06 With:Lety Gonzalez MD, SHAYY, URO Address: When: Unknown [facility] chinc complaint+Reason for visit Narrative* Chief Complaint follow up Referred by Dr. Jeffrey for PVD Referral Dr. Jeffrey / no meter Reason for Visit Claudication Fatigue Hypertension Type II diabetes mellitus Bilateral lower extremity edema Hemosiderin pigmentation of lower extremity due to varicose veins Obesity Symptomatic varicose veins of both lower extremities Wound of foot [facility] Work Phone: Chief complaint+Reason for visit Narrative* Chief Complaint Referred by Dr. Abigail skelton for PVD Referral Dr. Jeffrey / no meter Check Up Reason for Visit Bilateral lower extr emity edema Hemosiderin pigmentation of lower extremity due to varicose veins Obesity Symptomatic varicose veins of both lower extremities Wound of foot CAD (coronary artery disease) Diabetic foot ulcer GERD (gastroesophageal reflux disease) Hemosiderin pigmentation of lower extremity due to varicose veins Hypertension Obesity Type II diabetes mellitus [facility] Work Phone: Evaluation + Plan note Future Appointments Appointment Date:01/06/2022 08:00:00 AM Scheduled Provider: Location:[facility] Appointment Type:URO Nurse Visit Appointment Date:05/12/2022 08:45:00 AM Scheduled Provider:Venkat Proctor Jr., MD Location:[facility] Appointment Type:URO Office Visit [facility] evaluation + Plan note Future Appointments Appointment Date:02/03/2022 08:30:00 AM Scheduled Provider: Location:[facility] Appointment Type:URO Nurse Visit Appointment Date:05/12/2022 08:45:00 AM Scheduled Provider:Venkat Proctor Jr., MD Location:[facility] Appointment Type:URO Office Visit [facility] evaluation + Plan note Future Appointments Appointment Date:03/03/2022 08:00:00 AM Scheduled Provider: Location:[facility] Appointment Type:URO Nurse Visit Appointment Date:05/12/2022 08:45:00 AM Scheduled Provider:Venkat Proctor Jr., MD Location:[facility] Appointment Type:URO Office Visit [facility] evaluation + Plan note Future Appointments Appointment Date:03/31/2022 08:00:00 AM Scheduled Provider: Location:[facility] [place] Appointment Type:URO Nurse Visit Appointment Date:04/28/2022 08:00:00 AM Scheduled Provider: Location:[facility] Appointment Type:URO Nurse Visit Appointment Date:05/26/2022 08:15:00 AM Scheduled Provider:Venkat Proctor Jr., MD Location:[facility] Appointment Type:URO Office Visit [facility] evaluation + Plan note Future Appointments Appointment Date:04/28/2022 08:00:00 AM Scheduled Provider: Location:[facility] [place] Appointment Type:URO Nurse Visit Appointment Date:05/26/2022 08:15:00 AM Scheduled Provider:Venkat Proctor Jr., MD [facility] Type[facility] Office Visit [facility] evaluation + Plan note Future Appointments Appointment Date:06/24/2022 08:00:00 AM Scheduled Provider: Location:[facility] Appointment Type:URO Nurse Visit Appointment Date:07/29/2022 08:00:00 AM Scheduled Provider:Lety Gonzalez MD Location:[facility] Appointment Type:URO Office Visit [facility] evaluation + Plan note Future Appointments Appointment Date:07/22/2022 08:00:00 AM Scheduled Provider: Location:[facility] Appointment Type:URO Nurse Visit Appointment Date:08/05/2022 08:00:00 AM Scheduled Provider:Lety Gonzalez MD Location:[facility] Appointment Type:URO Office Visit [facility] evaluation + Plan note Future Appointments Appointment Date:09/02/2022 08:30:00 AM Scheduled Provider: Location:[facility] Appointment Type:URO Nurse Visit Diagnostic Tests Pending * PSA Total 08/19/22 * Testosterone Level Total 08/19/22 [facility] evaluation + Plan note Future Appointments Appointment Date:09/16/2022 08:15:00 AM Scheduled Provider: Location:[facility] Appointment Type:URO Nurse Visit [facility] evaluation + Plan note Future Appointments Appointment Date:09/30/2022 08:00:00 AM Scheduled Provider: Location:[facility] Appointment Type:URO Nurse Visit [facility] evaluation + Plan note Future Appointments Appointment Date:10/13/2022 08:30:00 AM Scheduled Provider: Location:[facility] Appointment Type:URO Nurse Visit Appointment Date:10/28/2022 08:00:00 AM Scheduled Provider: Location:[facility] Appointment Type:URO Nurse Visit [facility] evaluation + Plan note Future Appointments Appointment Date:10/28/2022 08:00:00 AM Scheduled Provider: Location:[facility] Appointment Type:URO Nurse Visit Appointment Date:11/11/2022 08:00:00 AM Scheduled Provider: Location:[facility] Appointment Type:URO Nurse Visit Appointment Date:11/25/2022 10:15:00 AM Scheduled Provider:Lety Gonzalez MD Location:[facility] Appointment Type:URO Office Visit [facility] evaluation + Plan note Future Appointments Appointment Date:11/11/2022 08:00:00 AM Scheduled Provider: Location:[facility] Appointment Type:URO Nurse Visit Appointment Date:11/25/2022 10:15:00 AM Scheduled Provider:Lety Gonzalez MD Location:[facility] Appointment Type:URO Office Visit [facility] evaluation + Plan note Future Appointments Appointment Date:11/18/2022 08:00:00 AM Scheduled Provider: Location:[facility] Appointment Type:URO Nurse Visit Appointment Date:11/25/2022 10:15:00 AM Scheduled Provider:Lety Gonzalez MD Location:[facility] Appointment Type:URO Office Visit Diagnostic Tests Pending * CBC w/ Auto Diff 11/11/22 * Testosterone Level Total 11/11/22 [facility] evaluation + Plan note Future Appointments Appointment Date:11/25/2022 10:15:00 AM Scheduled Provider:Lety Gonzalez MD Location:[facility] Appointment Type:URO Office Visit [facility] evaluation + Plan note Future Appointments Appointment Date:11/25/2022 10:15:00 AM Scheduled Provider:Lety Gonzalez MD Location:[facility] Appointment Type:URO Office Visit Diagnostic Tests Pending * [facility] Appointment Date:12/09/2022 08:00:00 AM Scheduled Provider: Location:[facility] Appointment Type:URO Nurse Visit Appointment Date:03/03/2023 09:45:00 AM Scheduled Provider:[facility] Office Visit Diagnostic Tests Pending * Testosterone Level Total 11/25/22 * PSA Total 11/25/22 * Hemoglobin 11/25/22 [facility] evaluation + Plan note Future Appointments Appointment Date:12/23/2022 08:00:00 AM Scheduled Provider: Location:[facility] Appointment Type:URO Nurse Visit Appointment Date:03/03/2023 09:45:00 AM Scheduled Provider:Leyt Gonzalez MD Location:[facility] Appointment Type:URO Office Visit [facility] evaluation + Plan note Future Appointments Appointment Date:01/06/2023 08:00:00 AM Scheduled Provider: Location:[facility] Appointment Type:URO Nurse Visit Appointment Date:03/03/2023 09:45:00 AM Scheduled Provider:Lety Gonzalez MD Location:[facility] Appointment Type:URO Office Visit [facility] evaluation + Plan note Future Appointments Appointment Date:01/19/2023 08:30:00 AM Scheduled Provider: Location:[facility] Appointment Type:URO Nurse Visit Appointment Date:03/03/2023 09:45:00 AM Scheduled Provider:Lety Gonzalez MD Location:[facility] Appointment Type:URO Office Visit [facility] evaluation + Plan note Future Appointments Appointment Date:02/17/2023 08:00:00 AM Scheduled [facility] Nurse Visit Appointment Date:03/03/2023 09:45:00 AM Scheduled Provider:Lety Gonzalez MD Location:[facility] Appointment Type:URO Office Visit [facility] evaluation + Plan note Future Appointments Appointment Date:02/24/2023 08:00:00 AM Scheduled Provider: Location:[facility] Appointment Type:URO Nurse Visit Appointment Date:03/03/2023 09:45:00 AM Scheduled Provider:Lety Gonzalez MD Location:[facility] Appointment Type:URO Office Visit [facility] evaluation + Plan note Future Appointments Appointment Date:03/03/2023 09:45:00 AM Scheduled Provider:Lety Gonzalez MD Location:[facility] Appointment Type:URO Office Visit [facility] evaluation + Plan note Future Appointments Appointment Date:03/03/2023 09:45:00 AM Scheduled Provider:Lety Gonzalez MD Location:[facility] Appointment Type:URO Office Visit Diagnostic Tests Pending * Testosterone Level Total [facility] App[facility]ments Appointment Date:03/17/2023 08:00:00 AM Scheduled Provider: Location:[facility] Appointment Type:URO Nurse Visit Appointment Date:06/09/2023 08:45:00 AM Scheduled Provider:Lety Gonzalez MD Location:[facility] Appointment Type:URO Office Visit Diagnostic Tests Pending * PSA Free & Total 03/03/23 [facility] evaluation + Plan note Future Appointments Appointment Date:03/31/2023 08:00:00 AM Scheduled Provider: Location:[facility] Appointment Type:URO Nurse Visit Appointment Date:06/09/2023 08:45:00 AM Scheduled Provider:Lety Gonzalez MD Location:[facility] Appointment Type:URO Office Visit [facility] evaluation + Plan note Future Appointments Appointment Date:04/14/2023 08:00:00 AM Scheduled Provider: Location:[facility] [place] Appointment Type:URO Nurse Visit Appointment Date:06/09/2023 08:45:00 AM Scheduled Provider:Let[facility] Gonzalez MD [facility] Office Visit [facility] evaluation + Plan note Future Appointments Appointment Date:04/28/2023 08:30:00 AM Scheduled Provider: Location:[facility] [place] Appointment Type:URO Nurse Visit Appointment Date:05/12/2023 08:00:00 AM Scheduled Provider: [facility] Type:[facility] Nurse Visit Appointment Date:05/26/2023 08:00:00 AM Scheduled Provider: Location:[facility] [place] Appointment Type:URO Nurse Visit Appointment Date:06/09/2023 08:45:00 AM Scheduled Provider:Lety Gonzalez MD [facility] Type:[facility] Office Visit [facility] evaluation + Plan note Future Appointments Appointment Date:05/12/2023 08:00:00 AM Scheduled Provider: Location:[facility] [place] Appointment Type:URO Nurse Visit Appointment Date:05/26/2023 08:00:00 AM Scheduled Provider: [facility] Type:[facility] Nurse Visit Appointment Date:06/09/2023 08:45:00 AM Scheduled Provider:Lety Gonzalez MD [facility] Type:[facility] Office Visit Diagnostic Tests Pending * Hemoglobin and Hematocrit 04/28/23 * PSA Free & Total 04/28/23 * Testosterone Level Total 04/28/23 [facility] evaluation + Plan note Future Appointments Appointment Date:05/26/2023 08:00:00 AM Scheduled Provider: [facility] Type:[facility] Nurse Visit Appointment Date:06/02/2023 08:00:00 AM Scheduled Provider: Location:[facility] [place] Appointment Type:URO Nurse Visit Appointment Date:06/09/2023 08:45:00 AM Scheduled Provider:Lety Gonzalez [facility] App[facility] Type:URO Office Visit [facility] evaluation + Plan note Future Appointments Appointment Date:06/02/2023 08:00:00 AM Scheduled Provider: Location:[facility] Appointment Type:URO Nurse Visit Appointment Date:06/09/2023 08:45:00 AM Scheduled Provider:Lety Gonzalez MD [facility] Type:URO Office Visit [facility] evaluation + Plan note Future Appointments Appointment Date:07/07/2023 08:00:00 AM Scheduled Provider: Location:[facility] Appointment Type:URO Nurse Visit Appointment Date:07/21/2023 08:00:00 AM Scheduled Provider: Location:[facility] Appointment Type:URO Nurse Visit Appointment Date:08/04/2023 08:00:00 AM Scheduled Provider: Location:[facility] Appointment Type:URO Nurse Visit Appointment Date:09/01/2023 08:00:00 AM Scheduled Provider: Location:[facility] Appointment Type:URO Nurse Visit Appointment Date:09/15/2023 08:00:00 AM Scheduled Provider:[facility] evaluation + Plan note Future Appointments Appointment Date:07/21/2023 08:00:00 AM Scheduled Provider: Location:[facility] Appointment Type:URO Nurse Visit Appointment Date:08/04/2023 08:00:00 AM Scheduled Provider: Location:[facility] Appointment Type:URO Nurse Visit Appointment Date:09/01/2023 08:00:00 AM Scheduled Provider: Location:[facility] Appointment Type:URO Nurse Visit Appointment Date:09/15/2023 08:00:00 AM Scheduled Provider:Lety Gonzalez MD Location:[facility] Appointment Type:URO Office Visit [facility] evaluation + Plan note Future Appointments Appointment Date:08/04/2023 08:00:00 AM Scheduled Provider: Location:[facility] Appointment Type:URO Nurse Visit Appointment Date:09/01/2023 08:00:00 AM Scheduled Provider: Location:[facility] Appointment Type:URO Nurse Visit Appointment Date:09/15/2023 08:00:00 AM Scheduled Provider:Lety Gonzalez MD Location:[facility] Appointment Type:URO Office Visit [facility] evaluation + Plan note Future Appointments Appointment Date:09/01/2023 08:00:00 AM Scheduled Provider: Location:[facility] Appointment Type:URO Nurse Visit Appointment Date:09/15/2023 08:00:00 AM Scheduled Provider:Lety Gonzalez MD Location:[facility] Appointment Type:URO Office Visit [facility] evaluation + Plan note Future Appointments Appointment Date:09/15/2023 08:00:00 AM Scheduled Provider:Lety Gonzalez MD Location:[facility] Appointment Type:URO Office Visit [facility] evaluation + Plan note Future Appointments Appointment Date:09/15/2023 08:00:00 AM Scheduled Provider:Lety Gonzalez MD Location:[facility] Appointment Type:URO Office Visit Diagnostic Tests Pending * [facility] Appointment Date:09/29/2023 08:00:00 AM Scheduled Provider: Location:[facility] Appointment Type:URO Nurse Visit Appointment Date:03/01/2024 10:00:00 AM Scheduled Provider:Lety Gonzalez MD Location:[facility] Appointment Type:URO Office Visit Future Scheduled Tests Laboratory* PSA Screen, Total 12/15/23 * Hematocrit 09/15/23 * Testosterone Level Total 12/15/23 [facility] evaluation + Plan note Future Appointments Appointment Date:03/01/2024 10:00:00 AM Scheduled Provider:Lety Gonzalez MD Location:[facility] Appointment Type:URO Office Visit Future Scheduled Tests Laboratory* PSA Screen, Total 12/15/23 * Hematocrit 09/15/23 * Testosterone Level Total 12/15/23 [facility] evaluation + Plan note Future Appointments Appointment Date:11/03/2023 08:00:00 AM Scheduled Provider: Location:[facility] Appointment Type:URO Nurse Visit Appointment Date:03/01/2024 10:00:00 AM Scheduled Provider:Lety Gonzalez MD Location:[facility] Appointment Type:URO Office Visit Future Scheduled Tests Laboratory* PSA Screen, Total 12/15/23 * Hematocrit 09/15/23 * Testosterone Level Total 12/15/23 [facility] evaluation + Plan note Future Appointments Appointment Date:11/16/2023 09:00:00 AM Scheduled Provider: Location:[facility] Appointment Type:URO Nurse Visit Appointment Date:03/01/2024 10:00:00 AM Scheduled Provider:Lety Gonzalez MD Location:[facility] Appointment Type:URO Office Visit Future Scheduled Tests Laboratory* PSA Screen, Total 12/15/23 * Hematocrit 09/15/23 * Testosterone Level Total 12/15/23 [facility] evaluation + Plan note Future Appointments Appointment Date:12/24/2023 08:00:00 AM Scheduled Provider: Location:[facility] Appointment Type:URO Nurse Visit Appointment Date:03/01/2024 10:00:00 AM Scheduled Provider:Lety Gonzalez MD Location:[facility] Appointment Type:URO Office Visit Future Scheduled Tests Laboratory* PSA Screen, Total 12/15/23 * Hematocrit 09/15/23 * Testosterone Level Total 12/15/23 [facility] evaluation + Plan note Future Appointments Appointment Date:12/14/2023 08:30:00 AM Scheduled Provider: Location:[facility] Appointment Type:URO Nurse Visit Appointment Date:03/01/2024 10:00:00 AM Scheduled Provider:Lety Gonzalez MD Location:[facility] Appointment Type:URO Office Visit Future Scheduled Tests Laboratory* PSA Screen, Total 12/15/23 * Hematocrit 09/15/23 * Testosterone Level Total 12/15/23 [facility] evaluation + Plan note Future Appointments Appointment Date:12/28/2023 10:00:00 AM Scheduled Provider: Location:[facility] Appointment Type:URO Nurse Visit Appointment Date:03/01/2024 10:00:00 AM Scheduled Provider:Lety Gonzalez MD Location:[facility] Appointment Type:URO Office Visit Future Scheduled Tests Laboratory* PSA Screen, Total 12/15/23 * Hematocrit 09/15/23 * Testosterone Level Total 12/15/23 [facility] evaluation + Plan note Future Appointments Appointment Date:01/11/2024 08:30:00 AM Scheduled Provider: Location:[facility] Appointment Type:URO Nurse Visit Appointment Date:03/01/2024 10:00:00 AM Scheduled Provider:Lety Gonzalez MD Location:[facility] Appointment Type:URO Office Visit Future Scheduled Tests Laboratory* PSA Screen, Total 12/15/23 * Hematocrit 09/15/23 * Testosterone Level Total 12/15/23 [facility] evaluation + Plan note Future Appointments Appointment Date:01/25/2024 08:45:00 AM Scheduled Provider: Location:[facility] Appointment Type:URO Nurse Visit Appointment Date:03/01/2024 10:00:00 AM Scheduled Provider:Lety Gonzalez MD Location:[facility] Appointment Type:URO Office Visit Future Scheduled Tests Laboratory* PSA Screen, Total 12/15/23 * Hematocrit 09/15/23 * Testosterone Level Total 12/15/23 [facility] evalSymvato + Plan note Future Appointments Appointment Date:02/09/2024 08:00:00 AM Scheduled Provider: Location:[facility] Appointment Type:URO Nurse Visit Appointment Date:03/01/2024 10:00:00 AM Scheduled Provider:Lety Gonzalez MD Location:[facility] Appointment Type:URO Office Visit Future Scheduled Tests Laboratory* PSA Screen, Total 12/15/23 * Hematocrit 09/15/23 * Testosterone Level Total 12/15/23 [facility] evaluation + Plan note Future Appointments Appointment Date:02/23/2024 08:00:00 AM Scheduled Provider: Location:[facility] Appointment Type:URO Nurse Visit Appointment Date:03/08/2024 08:15:00 AM Scheduled Provider:Lety Gonzalez MD Location:[facility] Appointment Type:URO Office Visit Future Scheduled Tests Laboratory* PSA Screen, Total 12/15/23 * Hematocrit 09/15/23 * Testosterone Level Total 12/15/23 [facility] evalSymvato + Plan note Future Appointments Appointment Date:03/01/2024 08:00:00 AM Scheduled Provider: Location:[facility] Appointment Type:URO Nurse Visit Appointment Date:03/08/2024 08:15:00 AM Scheduled Provider:Lety Gonzalez MD Location:[facility] Appointment Type:URO Office Visit Future Scheduled Tests Laboratory* PSA Screen, Total 12/15/23 * Hematocrit 09/15/23 * Testosterone Level Total 12/15/23 [facility] evaluation + Plan note Future Appointments Appointment Date:03/08/2024 08:15:00 AM Scheduled Provider:Lety Gonzalez MD Location:[facility] Appointment Type:URO Office Visit [facility] evaluation + Plan note Future Appointments Appointment Date:03/08/2024 08:15:00 AM Scheduled Provider:Lety Gonzalez MD Location:[facility] Appointment Type:URO Office Visit Diagnostic Tests Pending * Testosterone Level Total [facility]01/[facility] Future App[facility]ments Appointment Date:03/08/2024 08:15:00 AM Scheduled Provider:Lety Gonzalez MD Location:[facility] Appointment Type:URO Office Visit Diagnostic Tests Pending * HgbA1c 03[facility]01/[facility] Future Appointments Appointment Date:03/22/2024 08:30:00 AM Scheduled Provider: Location:[facility] Appointment Type:URO Nurse Visit Appointment Date:04/05/2024 08:00:00 AM Scheduled Provider: Location:[facility] Appointment Type:URO Nurse Visit Appointment Date:08/23/2024 10:00:00 AM Scheduled Provider:Lety Gonzalez MD Location:[facility] Appointment Type:URO Office Visit Future Scheduled Tests Laboratory* Testosterone Level Total 09/08/24 [facility] evaluation + Plan note Future Appointments Appointment Date:04/05/2024 08:00:00 AM Scheduled Provider: Location:[facility] Appointment Type:URO Nurse Visit Appointment Date:08/23/2024 10:00:00 AM Scheduled Provider:Lety Gonzalez MD Location:[facility] Appointment Type:URO Office Visit Future Scheduled Tests Laboratory* Testosterone Level Total 09/08/24 [facility] evaluation + Plan note Future Appointments Appointment Date:04/19/2024 08:00:00 AM Scheduled Provider: Location:[facility] Appointment Type:URO Nurse Visit Appointment Date:08/23/2024 10:00:00 AM Scheduled Provider:Lety Gonzalez MD Location:[facility] Appointment Type:URO Office Visit Future Scheduled Tests Laboratory* Testosterone Level Total 09/08/24 [facility] evaluation + Plan note Future Appointments Appointment Date:05/03/2024 09:00:00 AM Scheduled Provider: Location:[facility] Appointment Type:URO Nurse Visit Appointment Date:08/23/2024 10:00:00 AM Scheduled Provider:Lety Gonzalez MD Location:[facility] Appointment Type:URO Office Visit Future Scheduled Tests Laboratory* Testosterone Level Total 09/08/24 [facility] evaluation + Plan note Future Appointments Appointment Date:05/17/2024 08:00:00 AM Scheduled Provider: Location:[facility] Appointment Type:URO Nurse Visit Appointment Date:08/23/2024 10:00:00 AM Scheduled Provider:Lety Gonzalez MD Location:[facility] Appointment Type:URO Office Visit Future Scheduled Tests Laboratory* Testosterone Level Total 09/08/24 [facility] evaluation + Plan note Future Appointments Appointment Date:05/31/2024 08:00:00 AM Scheduled Provider: Location:[facility] Appointment Type:URO Nurse Visit Appointment Date:08/23/2024 10:00:00 AM Scheduled Provider:Lety Gonzalez MD Location:[facility] Appointment Type:URO Office Visit Future Scheduled Tests Laboratory* Testosterone Level Total 09/08/24 [facility] evaluation + Plan note Future Appointments Appointment Date:06/14/2024 08:00:00 AM Scheduled Provider: Location:[facility] Appointment Type:URO Nurse Visit Appointment Date:06/28/2024 08:00:00 AM Scheduled Provider: Location:[facility] Appointment Type:URO Nurse Visit Appointment Date:07/12/2024 08:00:00 AM Scheduled Provider: Location:[facility] Appointment Type:URO Nurse Visit Appointment Date:07/26/2024 08:00:00 AM Scheduled Provider: Location:[facility] Appointment Type:URO Nurse Visit Appointment Date:08/09/2024 08:00:00 AM Scheduled Provider: Location:[facility] Appointment Type:URO Nurse Visit Appointment Date:08/23/2024 10:00:00 AM Scheduled Provider:Lety Gonzalez MD Location:[facility] Appointment Type:URO Office Visit Future Scheduled Tests Laboratory* Testosterone Level Total 09/08/24 [facility] evaluation + Plan note Future Appointments Appointment Date:06/28/2024 08:00:00 AM Scheduled Provider: Location:[facility] Appointment Type:URO Nurse Visit Appointment Date:07/12/2024 08:00:00 AM Scheduled Provider: Location:[facility] Appointment Type:URO Nurse Visit Appointment Date:07/26/2024 08:00:00 AM Scheduled Provider: Location:[facility] Appointment Type:URO Nurse Visit Appointment Date:08/09/2024 08:00:00 AM Scheduled Provider: Location:[facility] Appointment Type:URO Nurse Visit Appointment Date:08/23/2024 10:00:00 AM Scheduled Provider:Lety Gonzalez MD Location:[facility] Appointment Type:URO Office Visit Appointment Date:08/29/2024 09:00:00 AM Scheduled Provider: Location:[facility] Appointment Type:URO Nurse Visit Appointment Date:09/20/2024 09:45:00 AM Scheduled Provider:Lety Gonzalez MD Location:[facility] Appointment Type:URO Office Visit Future Scheduled Tests Laboratory* Testosterone Level Total 09/08/24 [facility] evaluation + Plan note Future Appointments Appointment Date:07/12/2024 08:00:00 AM Scheduled Provider: Location:[facility] Appointment Type:URO Nurse Visit Appointment Date:07/26/2024 08:00:00 AM Scheduled Provider: Location:[facility] Appointment Type:URO Nurse Visit Appointment Date:08/09/2024 08:00:00 AM Scheduled Provider: Location:[facility] Appointment Type:URO Nurse Visit Appointment Date:08/23/2024 10:00:00 AM Scheduled Provider:Lety Gonzalez MD Location:[facility] Appointment Type:URO Office Visit Appointment Date:08/29/2024 09:00:00 AM Scheduled Provider: Location:[facility] Appointment Type:URO Nurse Visit Appointment Date:09/20/2024 09:45:00 AM Scheduled Provider:Lety Gonzalez MD Location:[facility] Appointment Type:URO Office Visit Future Scheduled Tests Laboratory* Testosterone Level Total 09/08/24 [facility] evaluation + Plan note Future Appointments Appointment Date:08/29/2024 09:00:00 AM Scheduled Provider: Location:[facility] Appointment Type:URO Nurse Visit Appointment Date:09/20/2024 09:45:00 AM Scheduled Provider:Lety Gonzalez MD Location:[facility] Appointment Type:URO Office Visit Future Scheduled Tests Laboratory* Testosterone Level Total 09/08/24 [facility] evaluation noteNo [facility] [employer] Other evaluation note* Diagnosis Onset Date Resolution Status CAD (coronary artery disease) acute Diabetes acute GERD (gastroesophageal reflux disease) acute Hypertension acute Screening for colon cancer a cute Screening PSA (prostate specific antigen) acute [facility] Work Phone: evaluation note* Diagnosis Onset Date Resolution Status CAD (coronary artery disease) acute Diabetes acute GERD (gastroesophageal reflux disease) acute Hypertension acute Screening for colon cancer a cute Screening PSA (prostate specific antigen) acute Fatigue acute Hypertension acute Type II diabetes mellitus [facility] Work Phone: evaluation note* Diagnosis Onset Date Resolution Status Claudication acute Fatigue acute Hypertension acute Type II diabetes mellitus [facility] Work Phone: evaluation note* Diagnosis Onset Date Resolution Status Claudication acute Fatigue acute Hypertension acute Type II diabetes mellitus [facility] [place] Bilateral lower extremity edema acute Hemosiderin pigmentation of lower extremity due to varicose veins acute Obesity acute Symptomatic varicose veins of both lower extremities acute Wound of foot acute [facility] Work Phone: Evaluation note* Diagnosis Foot ulcer, left, with fat layer exposed (CMS/HCC)- Primary Diabetes 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 polyneuropathy, unspecified whether detention insulin use (CMS/HCC) Foot ulcer, right, with fat layer exposed (CMS/HCC) documented in this encounter [facility] HealthcareEvaluation note* Diagnosis Onset Date Resolution Status Bilateral lower extremity edema acute Hemosiderin pigmentation of lower extremity due to varicose veins acute Obesity acute Symptomatic varicose veins of both lower extremities acute Wound of foot acute CAD (coronary artery disease) acute Diabetic foot ulcer acute GERD (gastroesophageal reflux disease) acute Hemosiderin pigmentation of lower extremity due to varicose veins acute Hypertension acute Obesity acute Type II diabetes mellitus [facility] Work Phone: Evaluation note* Diagnosis Diabetes 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 polyneuropathy, unspecified whether detention insulin use (CMS/HCC)- Primary Foot ulcer, right, with fat layer exposed (CMS/HCC) Foot ulcer, left, with fat layer exposed (CMS/HCC) PVD (peripheral vascular disease) (CMS/HCC) Unspecified peripheral vascular disease documented in this encounter [facility] HealthcareEvaluation note* Diagnosis Diabetes 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 polyneuropathy, unspecified whether detention insulin use (CMS/HCC)- Primary Foot ulcer, right, with fat layer exposed (CMS/HCC) documented in this encounter [facility] HealthcareEvaluation note* Diagnosis Diabetes 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 polyneuropathy, unspecified whether long term care pharmacist insulin use (CMS/HCC)- Primary Foot ulcer, right, with fat layer exposed (CMS/HCC) Foot ulcer, left, with fat layer exposed (CMS/HCC) documented in this encounter [facility] HealthcareHistory general Narrative - Reported* Type Description Date Medical History 2nd opinion for vein surgery Medical History HTN Medical History DM Medical History CAD with prior SD Medical History CVI Medical History Depression Medical History Edema leg Medical History Diabetic polyneuropa thy associated with other specified diabetes mellitus Surgical History toe surgery/ right foot great t oe Surgical History tonsillectomy Surgical History heart stent 2 Hospitalization History tonsillectomy Hospitalization History pneumonia [employer] Other Hospital course Narrative No data available for this section [facility] Discharge instructions No data available for this section [facility] Discharge instructionsAmbulatory Orders* Referral to Gastroenterology Time Frame: 11/30/23, Location: None [facility] Work Phone: Progress note No data available for this section [facility] Summary Purpose Family History No Family History [...] colon cancer Screening PSA (prostate specific antigen) Chief Complaint Amb Documentation Check Up follow up Reason for Visit CAD (coronary artery disease) Diabetes GERD (gastroesophageal reflux disease) Hypertension Screening for colon cancer Screening PSA (prostate specific antigen) Fatigue Hypertension Type II diabetes mellitus Chief Complaint follow up Referred by Dr. Jeffrey for PVD Reason for Visit Claudication Fatigue Hypertension Type II diabetes mellitus Additional Source Comments (unrecognized sect ion and content) No Status Records FoundNo Status Records FoundNo Status Records FoundNo Status Records FoundNo Status Records FoundNo Status Records FoundNo Status Records FoundNo Status Records FoundNo Status Records FoundNo Status Records FoundNo Status Records FoundNo Status Records Found INFORMATION SOURCE (unrecogn ized section and content) DATE CREATED AUTHOR 08/14/2018 [facility] DATE CREATED AUTHOR AUTHOR'S ORGANIZ ATION 12/24/2022 [facility] DATE CREATED AUTHOR AUTHOR'S ORGANIZ ATION 06/30/2023 [facility] DATE CREATED AUTHOR AUTHOR'S ORGANIZ ATION 03/03/2024 [facility] DATE CREATED AUTHOR AUTHOR'S ORGANIZ ATION 03/04/2024 [facility] DATE CREATED AUTHOR AUTHOR'S ORGANIZ ATION 03/09/2024 [facility] DATE CREATED AUTHOR AUTHOR'S ORGANIZ ATION 03/10/2024 [facility] DATE CREATED AUTHOR AUTHOR'S ORGANIZ ATION 07/14/2024 [facility] DATE CREATED AUTHOR AUTHOR'S ORGANIZ ATION 07/15/2024 [facility] Care Team (unrecognized sect ion and content) Team Status: Active Member Role Status Dates Luis Jeffrey MD Primary Care Provider Active Team Status: Inactive Member Role Status Dates Luis Jeffrey MD Primary Care Provide r, Attending Provider Active Start: February 23, 2024 End: February 23, 2024 Team Status: Active Member Role Status Dates Luis Jeffrey MD Primary Care Provide r, Attending Provider Active Start: March 01, 2024 Team Status: Inactive Member Role Status Dates Luis Jeffrey MD Primary Care Provide r, Referring Provider Active Start: April 17, 2024 End: April 17, 2024 Nathaniel Ryan MD Attending Provider Active S tart: April 17, 2024 End: April 17, 2024 Team Status: Active Member Role Status Dates Luis Jeffrey MD Primary Care Provider Active Start: November 25, 2023 [facility] Attending Provider Active Start : November 25, 2023 Team Status: Inactive Member Role Status Dates Luis Jeffrey MD Primary Care Provide r, Attending Provider Active Start: November 30, 2023 End: November 30, 2023 Team Status: Active Member Role Status Dates Luis Jeffrey MD Primary Care Provide r, Attending Provider Active Start: December 01, 2023 Team Status: Inactive Member Role Status Dates Luis Jeffrey MD Primary Care Provider Active Start: May 01, 2024 End: May 01, 2024 Ayala Diaz APRN Attending Provider Active Start: May 01, 2024 End: May 01, 2024 Instructional Support Assistant Relationship Specialty Start Date End Date Luis Jeffrey MD [address] [place] [id number] PCP - General Family Medicine 05/04/24 Instructional Support Assistant Relationship Specialty Start Date End Date Luis Jeffrey MD [address] [place] [address] PCP - General Family Medicine 05/04/24 Team Status: Inactive Member Role Status Dates Luis Jeffrey MD Primary Care Provide r, Attending Provider Active Start: June 14, 2024 End: June 14, 2024 Instructional Support Assistant Relationship Specialty Start Date End Date Luis Jeffrey MD [address] [place] [phone] PCP - [facility] 05/04/24 Instructional Support Assistant Relationship Specialty Start Date End Date Luis Jeffrey MD [address] [place] [phone] PCP - [facility] 05/04/24 Instructional Support Assistant Relationship Specialty Start Date End Date Luis Jeffrey MD [address] [place] [phone] PCP - General Family Medicine 05/04/24 REASON FOR VISIT (unrecogniz ed section and content) Reason Comments Follow-up Bl ulcer check Reason Comments Follow-up lesions Reason Comments Post-op 1st post op, B/L gra ft Reason Comments Foot Ulcer Rt ft ulcer Reason Comments Foot Ulcer Rt GT toe ulcer Goals (unrecognized section and content) Goals may [...] BE BASED ON THE PRIMARY CLINICAL RECORDS. [facility] [employer] [facility] provides no warranty or guarantee of the accuracy or completeness of information in this document.
--- NOTE | 2024-07-23 18:52 | XR_ITS ---
The [address] [address] Patient Name: JOHNATHAN AMBROSIO MRN: [id number] date: 1960 Sex: M Assigned Patient Location: ER Current Patient Location: ER Accession/Order Number: [id number] Exam Date: 07/23/2024 19:06 Report Date: 07/23/2024 20:51 At the request of: RU LAWTON Procedure: XR chest 1V EXAM: XR chest 1V , 07/23/2024 HISTORY: cp COMPARISON: Previous chest x-ray from 2020. TECHNIQUE: X-ray of the chest, portable upright AP view. FINDINGS: Low lung volumes. Cardiac silhouette within normal limits. No hilar or mediastinal enlargement. The lungs and costophrenic angles are clear. No acute osseous findings. No significant interval change. XR/XR chest 1V IMPRESSION: No acute cardiopulmonary findings. Electronically authenticated by: JAYME REED Date: 07/23/2024 20:51
--- NOTE | 2024-07-23 18:52 | ECG_ITS ---
The [facility] Test Date: 2024-07-23 Pat Name: JOHNATHAN AMBROSIO Department: Room: - Gender: Male Student Counselor: : 1960 Requested By: LUIS JEFFREY Order Number: [id number] Reading MD: WINNIE MCKINNEY Measurements Intervals [place] Rate: 74 P: 30 [place]: 198 QRS: -21 QRSD: 100 T: 77 QT: 378 QTc: 405 Interpretive Statements 1100 Sinus rhythm 3234 Anteroseptal myocardial infarction, age undetermined 8102 Low QRS voltage in chest leads 9150 abnormal ECG Electronically Signed On 07-24-2024 6:52:13 EST by WINNIE MCKINNEY
[2024-07-23 19:07] LABS: Glucometer 172 mg/dL (74-106)
--- NOTE | 2024-07-23 19:16 | ECG_ITS ---
The [facility] Test Date: 2024-07-23 Pat Name: JOHNATHAN AMBROSIO Department: Room: - Gender: Male Skoog Operator: : 1960 Requested By: LUIS JEFFREY Order Number: [id number] Reading MD: WINNIE MCKINNEY Measurements Intervals [place] Rate: 92 P: 43 [place]: 200 QRS: -51 QRSD: 110 T: 43 QT: 372 QTc: 422 Interpretive Statements 1100 Sinus rhythm 2630 Left anterior fascicular block 3234 Anteroseptal myocardial infarction, age undetermined 9150 abnormal ECG Compared to ECG 07/23/2024 19:16:36 Left anterior fascicular block now present Myocardial infarct finding still present Electronically Signed On 07-24-2024 6:52:58 EST by WINNIE MCKINNEY
--- NOTE | 2024-07-23 19:20 | CT_ITS ---
The [address] [address] Patient Name: JOHNATHAN AMBROSIO MRN: [id number] date: 1960 Sex: M Assigned Patient Location: ER Current Patient Location: ER Accession/Order Number: [id number] Exam Date: 07/23/2024 20:31 Report Date: 07/23/2024 22:14 At the request of: EVERETT DIANE Procedure: CT abdomen pelvis w con EXAM: CT abdomen pelvis w con HISTORY: Mid abdominal pain with diarrhea. History of hypertension. COMPARISON: CT abdomen pelvis, 08/21/2020. TECHNIQUE: IV contrast enhanced CT imaging the abdomen and pelvis was performed using 100 mL of Omnipaque 350 intravenous contrast. Sagittal and coronal reconstructions are provided. Dose reduction techniques were achieved by using automated exposure control and/or adjustment of mA and/or kV according to patient size and/or use of iterative reconstruction technique. FINDINGS: CT ABDOMEN: The lung bases are clear. The heart is top-normal in size. Moderate coronary arterial calcifications are noted. There is a trace pericardial effusion. There is a nonspecific 3 cm slightly hypodense lesion near the dome of the right hepatic lobe measuring 58 Hounsfield units on image 21 of series 3. This does not meet CT criteria for cyst. It is nonspecific but unchanged and was previously described as a stable hemangioma. The liver is otherwise unremarkable. Punctate stones are seen in the dependent gallbladder. There is no cholecystitis or biliary ductal dilatation. The pancreas, spleen, and left adrenal gland are unremarkable. There is a 3.3 cm right adrenal myelolipoma on image 36 of series 3, unchanged. There is a 1.1 cm cortical cyst in the medial right kidney on image 60. The kidneys are otherwise unremarkable. There is moderate distention of the stomach with multiple prominently distended fluid and gas-filled small bowel loops measuring over 5 cm in diameter on image 68. The appear to show gradual tapering to normal caliber distally, with normal caliber distal loops and no transition point identified. Mild adjacent mesenteric edema is noted. There is no free air. There are moderate aortic and iliac arterial calcifications without aneurysm. The IVC appears normal. CT PELVIS: The appendix and urinary bladder are unremarkable. The prostate is enlarged. There is a normal volume of stool and gas in the colon. There is a large wide-neck fat-containing umbilical hernia, unchanged. Moderate degenerative disc disease is seen at L4-L5 with mild to moderate bilateral neural foraminal stenosis. No acute osseous abnormality or suspicious bony lesion is seen. CT/CT abdomen pelvis w con IMPRESSION: 1. Prominent gas and fluid-filled distended small bowel loops appear to show gradual tapering to normal caliber distally, with no transition point identified, favoring severe small bowel ileus over partial distal small bowel obstruction. However, the degree of small bowel distention is concerning for potential partial distal bowel obstruction at an age-indeterminate level. Follow-up is recommended as clinically indicated. Mild free fluid is reactive. No free air is seen. No additional acute findings are seen in the abdomen or pelvis. 2. Stable right hepatic lobe hypodense lesion previously described as a benign hemangioma. 3. Cholelithiasis. 4. Benign right adrenal myelolipoma, unchanged. 5. Large wide-necked fat-containing umbilical hernia, unchanged. 6. Mild prostatomegaly. Electronically authenticated by: CATIA ALVARENGA Date: 07/23/2024 22:14
--- NOTE | 2024-07-23 19:21 | ED_ITS ---
HPI - Abdominal Pain General Chief Complaint: Abdominal Pain Stated Complaint: ABD PAIN Time Seen by Provider: 07/23/24 18:51 Source: patient Mode of arrival: walk-in History of Present Illness HPI narrative: past history of diabetes and CAD. Presents complaining of abdominal pain and nausea that started around 3PM and has worsened. has not vomited yet but admits to dry heaving. No chest pain or dyspnea. no diarrhea. Denies past abdominal surgery Related Data Allergies Allergy/AdvReac Type Severity Reaction Status Date / Time metformin Allergy Severe Diarrhea Verified 07/23/24 18:44 Review of Systems ROS Status of ROS 10 or more systems reviewed and unremark able except as noted in history and below Exam Constitutional Vital Signs, click to edit/add: Last Vital Signs Temp 97.5 F L 07/23/24 18:37 Pulse 107 H 07/24/24 01:10 Resp 20 07/24/24 01:10 BP 147/114 H 07/24/24 01:01 Pulse Ox 94 L 07/24/24 01:10 O2 Del Method Room Air 07/23/24 18:37 Common normals: oriented x3, healthy appearing, alert and well nourished General appearance: in distress (sweaty) Respiratory Common normals: normal respiratory effort, no retractions, no use of accessory muscles and clear to auscultation bilaterally Cardio Common normals: regular rate, regular rhythm, S1 normal heart sound and S2 normal heart sound GI Other: distended with gen. nonspecific tenderness. No guarding Extremity Common normals: normal to inspection and full ROM Neuro Common normals: oriented x3, CN's II-XII intact bilaterally, moves all extremities and no focal motor deficits Psych Appearance: grossly normal Course Vital Signs Vital signs: Vital Signs Temperature 97.5 F L 07/23/24 18:37 Pulse Rate 78 07/23/24 18:37 Respiratory Rate 26 H 07/23/24 18:37 Blood Pressure 150/96 H 07/23/24 18:37 Pulse Oximetry 98 07/23/24 18:37 Oxygen Delivery Method Room Air 07/23/24 18:37 Temperature 97.5 F L 07/23/24 18:37 Pulse Rate 107 H 07/24/24 01:10 Respiratory Rate 20 07/24/24 01:10 Blood Pressure 147/114 H 07/24/24 01:01 Pulse Oximetry 94 L 07/24/24 01:10 Oxygen Delivery Method Room Air 07/23/24 18:37 MDM - Abdominal Pain MDM Narrative Medical decision making narrative: patient last BM yesterday AM. Presents with acute onset of abdominal pain and dry heaves/nausea that started around 3PM . Pain is generalized and 10/10. No diarrhea or fever. WBC mildly elevated at 13.4. creat 1.38. lipase and lactic acid are normal. CT with findings of likely SBO . Patient informed we do not have surgery collision technician at this hospital and he will need to be transferred. He is requesting to go to [facility] in [place]. Surgeon paged . Dr Dukes at [facility] called back and states he will not be able to accept the patient at this time. Patient informed and [facility] paged spoke to Surgeon Dr Ferrara at [facility]. Unfortunately they have no beds at this time . They state that [facility] does have beds. Hospitalist paged at [facility] Lab Data Labs: Lab Results 07/23/24 07/23/24 Range/Units 18:50 19:03 WBC 13.4 H (4.0-11.0) 10^3/uL RBC 6.55 H (4.70-6.10) 10^6/uL Hgb 17.6 (14.0-18.0) g/dL Hct 50.4 (42.0-54.0) % MCV 76.9 L (80.0-94.0) fL MCH 26.9 (25.9-34.0) pg MCHC 34.9 (29.9-35.2) g/dL RDW 17.2 H (11.0-15.0) % Plt Count 190 (150-450) 10^3/uL MPV 12.0 (9.5-13.5) fL Neut % (Auto) 80.0 H (43.0-75.0) % Lymph % (Auto) 10.0 L (20.5-60.0) % Gregory % (Auto) 6.6 (1.7-12.0) % Eos % (Auto) 2.6 (0.9-7.0) % Baso % (Auto) 0.4 (0.2-2.0) % Neut # (Auto) 10.7 H (1.4-6.5) 10^3/uL Lymph # (Auto) 1.3 (1.2-3.8) 10^3/uL Gregory # (Auto) 0.9 H (0.3-0.8) 10^3/uL Eos # (Auto) 0.4 (0.0-0.7) 10^3/uL Baso # (Auto) 0.1 (0.0-0.1) 10^3/uL Abs Immat Gran (auto) 0.06 H (0.00-0.03) 10^3/uL Imm/Tot Granulo (auto) 0.4 (0.0-0.5) % PT 10.7 (9.0-11.6) sec INR 1.01 Sodium 137 (136-145) mmol/L Potassium 4.0 (3.5-5.1) mmol/L Chloride 102 (98-107) mmol/L Carbon Dioxide 20.1 L (21.0-32.0) mmol/L Anion Gap 18.9 BUN 20.0 H (7.0-18.0) mg/dL Creatinine 1.38 H (0.70-1.30) mg/dL Est GFR ( Amer) >60 (>=60 mL/min/1.73m^2) Est GFR (Non-Af Amer) 52 L (>=60 mL/min/1.73m^2) BUN/Creatinine Ratio 14.5 Glucose 170 H (74-106) mg/dL Lactate 1.4 (0.4-2.0) mmol/L Calcium 9.5 (8.5-10.1) mg/dL Total Bilirubin 1.4 H (0.2-1.0) mg/dL AST 32 (15-37) U/L ALT 21 (16-63) U/L Alkaline Phosphatase 68 (46-116) U/L Troponin I High Sens 9.2 (4.0-76.1) pg/mL Total Protein 7.7 (6.4-8.2) g/dL Albumin 3.8 (3.4-5.0) g/dL Globulin 3.9 g/dL Albumin/Globulin Ratio 1.0 Lipase 37.0 (16.0-77.0) U/L POC Glucose 172 H (74-106) mg/dL Imaging Data Abdominal x-ray: Radiologist's impression: ITS Impressions Chest X-Ray 07/23/24 18:52 IMPRESSION: No acute cardiopulmonary findings. Electronically authenticated by: JAYME REED Date: 07/23/2024 20:51 Abdomen/Pelvis CT 07/23/24 19:20 IMPRESSION: 1. Prominent gas and fluid-filled distended small bowel loops appear to show gradual tapering to normal caliber distally, with no transition point identified, favoring severe small bowel ileus over partial distal small bowel obstruction. However, the degree of small bowel distention is concerning for potential partial distal bowel obstruction at an age-indeterminate level. Follow-up is recommended as clinically indicated. Mild free fluid is reactive. No free air is seen. No additional acute findings are seen in the abdomen or pelvis. 2. Stable right hepatic lobe hypodense lesion previously described as a benign hemangioma. 3. Cholelithiasis. 4. Benign right adrenal myelolipoma, unchanged. 5. Large wide-necked fat-containing umbilical hernia, unchanged. 6. Mild prostatomegaly. Electronically authenticated by: CATIA ALVARENGA Date: 07/23/2024 22:14 Chest X-Ray 07/24/24 00:19 IMPRESSION: Nasogastric tube is seen in place with distal tip projecting over the expected location of the gastric fundus and side port projecting over the expected location of the gastric body. No obvious pneumothorax is seen. Electronically authenticated by: THEO MARTINO Date: 07/24/2024 01:01 Discharge Plan Discharge Chief Complaint: Abdominal Pain Clinical Impression: Partial small bowel obstruction Patient Disposition: [facility]
[2024-07-23] MEDS: FENTANYL CITRATE/PF 100 MCG/2 ML VIAL IV (19:32)
[2024-07-23] MEDS: ONDANSETRON PF 4 MG/2 ML VIAL IV (19:32)
[2024-07-23 20:00] LABS: Basophils Absolute Auto 0.1 10^3/uL (0.0-0.1); Basophils Percent Auto 0.4 % (0.2-2.0); Eosinophils Absolute Auto 0.4 10^3/uL (0.0-0.7); Eosinophils Percent Auto 2.6 % (0.9-7.0); Hematocrit 50.4 % (42.0-54.0); Hemoglobin 17.6 g/dL (14.0-18.0); Immature Granulocytes Abs Auto 0.06 10^3/uL (0.00-0.03); Immature Granulocytes Pct Auto 0.4 % (0.0-0.5); Lymphocytes Absolute Auto 1.3 10^3/uL (1.2-3.8); Mean Corpuscular HGB Conc 34.9 g/dL (29.9-35.2); Mean Corpuscular Hemoglobin 26.9 pg (25.9-34.0); Mean Corpuscular Volume 76.9 fL (80.0-94.0); Monocytes Absolute Auto 0.9 10^3/uL (0.3-0.8); Monocytes Percent Auto 6.6 % (1.7-12.0); Neutrophils Absolute Auto 10.7 10^3/uL (1.4-6.5); Platelet Count 190 10^3/uL (150-450); Red Blood Count 6.55 10^6/uL (4.70-6.10); Red Cell Distribution Width 17.2 % (11.0-15.0); White Blood Count 13.4 10^3/uL (4.0-11.0)
[2024-07-23 20:09] LABS: INR 1.01; Prothrombin Time 10.7 sec (9.0-11.6)
[2024-07-23 20:15] LABS: Alanine Aminotransferase 21 U/L (16-63); Albumin Level 3.8 g/dL (3.4-5.0); Alkaline Phosphatase 68 U/L (46-116); Anion Gap 18.9; Aspartate Amino Transferase 32 U/L (15-37); BUN Creatinine Ratio 14.5; Bilirubin Total 1.4 mg/dL (0.2-1.0); Calcium 9.5 mg/dL (8.5-10.1); Carbon Dioxide 20.1 mmol/L (21.0-32.0); Chloride 102 mmol/L (98-107); Estimated GFR (African America >60 (>=60 mL/min/1.73m^2); Estimated GFR (Non-African Ame 52 (>=60 mL/min/1.73m^2); Globulin 3.9 g/dL; Glucose 170 mg/dL (74-106); Sodium 137 mmol/L (136-145); Total Protein 7.7 g/dL (6.4-8.2); Troponin I High Sensitivity 9.2 pg/mL (4.0-76.1)
[2024-07-23] MEDS: PROMETHAZINE HCL 25 MG in 0.9 % SODIUM CHLORIDE 50 ML 204 MG IV ×2 (20:50→23:03)
[2024-07-23] MEDS: HYDROMORPHONE HCL 1 MG/ML CARTRIDGE IV (20:50)
--- NOTE | 2024-07-23 21:12 | ECG_ITS ---
The [facility] Test Date: 2024-07-23 Pat Name: JOHNATHAN AMBROSIO Department: Room: - Gender: Male Oreman: : 1960 Requested By: LUIS JEFFREY Order Number: [id number] Reading MD: WINNIE MCKINNEY Measurements Intervals [place] Rate: 75 P: 34 [place]: 208 QRS: 45 QRSD: 98 T: 61 QT: 372 QTc: 401 Interpretive Statements 1100 Sinus rhythm 3434 Septal myocardial infarction, age undetermined 9150 abnormal ECG Compared to ECG 07/23/2024 18:49:28 No significant changes Electronically Signed On 07-24-2024 6:52:40 EST by WINNIE MCKINNEY
[2024-07-23] MEDS: 0.9 % SODIUM CHLORIDE 1,000 ML 999 ML IV (21:29)
[2024-07-23 21:36] LABS: Lactate/Lactic Acid 1.4 mmol/L (0.4-2.0)
[2024-07-24] VITALS (13 sets, daily range): BP systolic 147–173; BP diastolic 109–117; PULSE 102–107; O2SAT 82–96
--- NOTE | 2024-07-24 00:19 | XR_ITS ---
The [address] [address] Patient Name: JOHNATHAN AMBROSIO MRN: [id number] date: 1960 Sex: M Assigned Patient Location: ER Current Patient Location: ER Accession/Order Number: [id number] Exam Date: 07/24/2024 00:30 Report Date: 07/24/2024 01:01 At the request of: EVERETT DIANE Procedure: XR chest 1V EXAMINATION: XR chest 1V, , 07/24/2024 12:30 AM EST INDICATION: NG tube placement HISTORY: Ordering Provider Reason for Exam: NG tube placement Technologist Note: Additional: COMPARISON: None. TECHNIQUE: Chest x-ray: One view. FINDINGS: Nasogastric tube is seen in place with distal tip projecting over the expected location of the gastric fundus and side port projecting over the expected location of the gastric body. No obvious pneumothorax is seen. However, the right lung apex is obscured by patient's flexed neck. The heart size is normal. Mild bibasilar atelectasis is likely seen. XR/XR chest 1V IMPRESSION: Nasogastric tube is seen in place with distal tip projecting over the expected location of the gastric fundus and side port projecting over the expected location of the gastric body. No obvious pneumothorax is seen. Electronically authenticated by: THEO MARTINO Date: 07/24/2024 01:01
[2024-07-24] MEDS: LIDOCAINE 2% JELLY 10 ML UR (00:25)
[2024-07-24] MEDS: BENZOCAINE 20% SPRAY 57 GM SPRAY CAN TOPICAL (00:51)
--- NOTE | 2024-07-24 00:53 | PC.NURSE ---
NG repositioned to 64 at right nare
--- NOTE | 2024-07-24 02:22 | PC.NURSE ---
Report to Dasia at [facility]
== END 2024-07-24 01:45 | disposition short-term general hospital (02) ==
PROVIDERS: Emergency Medicine; Emergency Provider Internal Medicine; PCP Family Medicine
DX: K56.600 Partial intestinal obstruction, unspecified as to cause (principal); E11.9 Type 2 diabetes mellitus without complications; I25.10 Atherosclerotic heart disease of native coronary artery without angina pectoris
CPT/HCPCS: 36415; 71045; 74177; 80053; 83605; 83690; 84484; 85025; 85610; 93005; 96365; 96375; 99285; J1171; J2250; J2405; J3010; Q9967

== ENCOUNTER 2024-12-13 06:54 | Outpatient (OUT) | payer BC, SELFPAY ==
--- OUTSIDE RECORDS SUMMARY | 2024-12-13 07:03 | XMS_ITS | CCD ---
Author Organization [facility] CliniSyvt Care Team Providers Care Cannery Worker Name Role Phone UNKNOWN, PROVIDER Unavailable Unavailable LUIS JEFFREY Unavailable Unavailable LUIS JEFFREY Primary Care Physician Unavailable Unavailable Luis Jeffrey Unavailable Luis Jeffrey Unavailable DR LUIS JEFFREY Admitting Unavailable JEFFREY, DR LUIS Blakely Attending Unavailable WOJCIECH, DR LUIS Blakely Consulting Unavailable WOJCIECH, DR LUIS Blakely Primary Care Unavailable JEFFREY, DR LUIS Blakely Admitting Unavailable JEFFREY, DR LUIS Blakely Attending Unavailable JEFFREY, DR LUIS Blakely Consulting Unavailable JEFFREY, DR LUIS Blakely Primary Care Unavailable JEFFREY, DR LUIS Blakely Primary Care Unavailable LUReddy .LETY Admitting Unavailable LUE ., LETY Borja Attending Unavailable LUE .LETY Consulting Unavailable JEFFREY, DR LUIS Blakely Primary Care Unavailable LUE ., LETY Borja Admitting Unavailable LUE ., LETY Borja Attending Unavailable LUE ., LETY Borja Consulting Unavailable JEFFREY, DR LUIS Blakely Admitting Unavailable JEFFREY, DR LUIS Blakely Attending Unavailable JEFFREY, DR LUIS Blakely Consulting Unavailable JEFFREY, DR LUIS Blakely Primary Care Unavailable MARKER ., DR EDDY Admitting Unavailable MARKER ., DR EDDY Attending Unavailable MARKER ., DR EDDY Consulting Unavailable JEFFREY, DR LUIS Blakely Primary Care Unavailable CARLY PRESCOTT Consulting Unavailable EUGENIEY ., DR WILLIAMSON Consulting Unavailable WOJCIECH, DR LUIS Blakely Primary Care Unavailable SHAIKH Aden BRICEÑO Admitting Unavailable SHAIKH Aden BRICEÑO Attending Unavailable CORINNE .QUENTIN Consulting UnavailTEVIN Vigil Consulting Unavailable SHAIKH Aden BRICEÑO Consulting Unavailable NAM CANO Admitting Unavailable WOJCIECH, DR LUIS Blakely Primary Care Unavailable NAM CANO Attending Unavailable Gabino Deluca Attending Unavailable Gabino Deluca Attending Unavailable Gabino Deluca Referring Unavailable Jeffrey, Dr. Luis Madrid Primary Care Unav ailable LUIS JEFFREY Attending Unavailable WOJCIECH, LUIS Admitting Unavailable Lue, Lety M. Attending Unavailable [...] GLADIS Blakely Attending Unavailab le JIMMY, GLADIS MCDONALD E Attending Unavailab le JIMMY, GLADIS JEMIMA E Attending Unavailab le JIMMY, GLADIS JEMIMA E Attending Unavailab le Lue, Lety M. Attending Unavailable Lue, Lety M. Attending Unavailable Lue, Lety M. Attending Unavailable Lue, Lety M. Attending Unavailable Lue, Lety M. Admitting Unavailable JEFFREY, LUIS Admitting Unavailable JEFFREY, LUIS Attending Unavailable Lue, Lety M. Attending Unavailable Lue, Lety M. Admitting Unavailable Lue, Lety M. Attending Unavailable JIMMY, GLADIS Blakely Attending Unavailab le Lue, Lety M. Attending Unavailable Lue, Lety M. Attending Unavailable Lue, Lety M. Attending Unavailable Lue, Lety M. Attending Unavailable Lue, Lety M. Attending Unavailable Lue, Lety M. Attending Unavailable Lue, Lety M. Attending Unavailable Jeffrey Luis LIZAMA Primary Care Provider GRAY CANCINO Attending Unavailable GRAY CANCINO Attending Unavailable GRAY CANCINO Attending Unavailable GRAY CANCINO Attending Unavailable GRAY CANCINO Attending Unavailable GRAY CANCINO Attending Unavailable GRAY CANCINO Attending Unavailable GRAY CANCINO Attending Unavailable GRAY CANCINO Attending Unavailable GRAY CANCINO Attending Unavailable LUIS JEFFREY Referring Unavailable LUIS JEFFREY Primary Care Unavailable JEFFREY, LUIS E Referring Unavailable JEFFREY, LUIS E Primary Care Unavailable JEFFREY, LUIS E Referring Unavailable JEFFREY, LUIS E Primary Care Unavailable JEFFREY, LUIS E Referring Unavailable JEFFREY, LUIS E Primary Care Unavailable Lue, Lety M. Attending Unavailable Lue, [...] Attending Unavailable Lue, Lety M. Attending Unavailable Unavailable Primary Care Provider Unavailabl e Lue, Lety M. Attending Unavailable Lue, Lety M. Attending Unavailable Lue, Lety M. Attending Unavailable Lue, Lety M. Admitting Unavailable Lue, Lety M. Attending Unavailable Lue, Lety M. Attending Unavailable Lue, Lety M. Attending Unavailable Lue, Lety M. Attending Unavailable Lue, Lety M. Attending Unavailable Lue, Lety M. Attending Unavailable MarleeDo Attending Unavailable Lue, Lety M. Attending Unavailable Lue, Lety M. Attending Unavailable Allergies Allergy Classification Reported Allergen(s) Allergy Type Date of Onset Reaction(s) Facility metFOR[facility] (3 sources) metFORMIN; Translations: [metformin] Drug Allergy Stomach cramps (finding), Diarrhea (finding) [facility] (20 sources) metFORMIN; Translations: [metformin] Drug Allergy 5 Stomach cramps (finding), Diarrhea (finding), Diarrhea, GI intolerance, Anaphylaxis [facility] (20 sources) Vancomycin Drug Allergy 4 [facility] (1 source) metFORMIN Drug Allergy [facility] (1 source) Vancomycin Drug Allergy 8 [facility] (5 sources) Allergies Reconciled Propensity to adverse reactions 1 Unknown [facility] Other (5 sources) patient allergy list reviewed by nurse or physicia Propensity to adverse reactions 9 Comment:Done [employer] Other Medications Current Medications Medication Drug Class(es) Dates Sig (Normalized) Sig (Original) amLODIPine 5 mg oral tablet (20 sources) Dihydropyridine Calcium Channel Donovan Start: 05-15-2019 End: 08-28-2024 take 1 tablet by mouth once daily Amlodipine 5 mg tablet Active 5 MG PO Daily 90 90 August 28, 2024 10:38pm ascorbic acid 250 mg oral tablet (3 sources) Vitamin C Start: 07-03-2021 take 1 mg by mouth once daily Vitamin C 250 mg oral tablet mg tab(s), Oral, Daily, Refills(s) 0 Start Date: 07/03/21 Status: Ordered aspirin 81 mg chewable tablet (20 sources) Platelet Aggregation Inhibitor, Nonsteroidal Anti-inflammatory Drug Start: 02-24-2024 take 2 tablets by mouth once daily Aspirin 81 mg tablet,chewable Active 162 MG PO Daily 180 February 24, 2024 4:26pm Start: 02-24-2024 take 162 mg by mouth once frankie y Aspirin Active 162 MG PO Daily 180 February 24, 2024 4:26pm Start: 02-24-2024 aspirin 81 MG chewable tablet Daily 02/24/2024 Active Start: 05-13-2019 End: 02-24-2024 take 2 tablets by mouth once daily Aspirin 81 mg Tablet,Chewable Discontinued 162 MG PO Daily May 13, 2019 12:00am February 24, 2024 4:28pm Start: 05-13-2019 End: 02-24-2024 take 162 mg by mouth once daily Aspirin Discontinued 1 62 MG PO Daily May 13, 2019 12:00am February 24, 2024 4:28pm take 2 tablets by [facility] every twenty-four hours Aspirin 81 MG 2 tablets Orally Once a day Active take 2 tablets by [facility] once daily Aspirin EC Low Dose 81 MG Oral Tablet Delayed Release TAKE 2 TABLET Daily Quantity: 90 Refills: 3 Ordered: 22-Dec-2022 Gabino Deluca DO Active biotin 1 mg oral tablet (20 sources) [...] 1 tablet by mouth twice daily Carvedilol 12.5 mg tablet Active 0 .ROUTE .COMPLEX 180 June 09, 2024 8:34am TAKE ONE TABLET BY MOUTH TWICE A DAY Start: 05-13-2019 End: 07-28-2024 take 1 tablet by mouth twice daily Carvedilol 12.5 mg tablet Discontinued 12.5 MG PO Twice daily 180 February 24, 2024 4:27pm June 09, 2024 8:34am citalopram 40 mg oral tablet (20 sources) Serotonin Reuptake Inhibitor Start: 07-26-2024 End: 07-28-2024 take 40 mg by mouth once daily 40 mg, oral, Daily, First dose on Wed07/26/24 at 0930, Look-alike/sound-alike medication - verify indication for use. Start: 02-24-2024 citalopram (Ce Mir) 40 MG tablet .COMPLEX 02/24/2024 Active Start: 02-08-2024 End: 08-28-2024 take 1 tablet by mouth once daily Citalopram 40 mg tablet Active 0 .ROUTE .COMPLEX 90 August 28, 2024 10:38pm TAKE 1 TABLET BY MOUTH EVERY DAY Start: 02-08-2024 End: 02-08-2024 take 1 tablet by mouth once daily Citalopram 40 mg tablet Discontinued 40 MG PO Daily February 08, 2024 12:00am February 08, 2024 3:33pm Start: 07-03-2021 citalopram Ora l, Daily, Refills(s) 0 Start Date: 07/03/21 Status: Ordered Start: 05-13-2019 End: 02-08-2024 take 1 tablet by mouth at bedtime Citalopram 10 mg tablet Discontinued 1 TAB PO Bedtime May 13, 2019 12:00am February 08, 2024 3:21pm Start: 05-13-2019 End: 02-08-2024 take 1 tablet by mouth at bedtime Citalopram Discontinued 1 TAB PO Bedtime May 13, 2019 12:00am February 08, 2024 3:21pm empagliflozin 25 mg oral tablet (20 sources) [...] 24 hr tablet .COMPLEX 02/24/2024 Active Start: 11-05-2023 End: 10-12-2024 take 1 tablet by mouth once daily Glipizide 10 mg tablet extended release 24hr Active 0 .ROUTE .COMPLEX October 12, 2024 1:44pm TAKE 1 TABLET BY MOUTH EVERY DAY [...] 1 tablet by mouth once daily Glipizide 10 mg tablet Discontinued 1 TAB PO Daily May 13, 2019 12:00am November 05, 2023 4:00pm take 1 tablet by jazmín th once daily glipiZIDE ER 10 MG TAKE 1 TABLET BY MOUTH EVERY DAY for 90 Active 12 hr hyoscyamine sulfate 0.375 mg extended release oral tablet (20 sources) Start: 06-23-2024 End: 10-12-2024 take 1 tablet by mouth twice daily Hyoscyamine Sulfate 0.375 mg tablet extended release 12 hr Active 0 .ROUTE .COMPLEX October 12, 2024 1:44pm TAKE ONE TABLET BY MOUTH TWICE A DAY Start: 04-17-2024 End: 06-23-2024 take 1 tablet by mouth twice daily Hyoscyamine Sulfate 0.375 mg tablet extended release 12 hr Discontinued 0.375 MG PO Twice daily 60 April 17, 2024 11:34am June 23, 2024 8:19am Start: 03-22-2024 End: 04-17-2024 take 1 tablet by mouth once daily as needed Hyoscyamine Sulfate (Levsin) 0.125 mg tablet Discontinued 0.125 MG PO Daily as needed for dyspepsia March 22, 2024 12:00am April 17, 2024 11:02am Start: 12-03-2020 End: 03-22-2024 take 1 tablet by mouth every twelve hours Hyoscyamine Sulfate 0.375 mg tablet extended release 12 hr Discontinued 0.375 MG PO Every 12 hours February 18, 2024 12:00am March 22, 2024 11:05am take 1 tablet by jazmín th every twelve hours in the morning hyoscyamine ER (Levbid) 0.375 MG 12 hr tablet Take 375 mcg by mouth in the morning and 375 mcg before bedtime. Active lisinopril 5 mg oral tablet (20 sources) Angiotensin Converting Enzyme Inhibitor Start: 07-03-2021 End: 07-28-2024 take 1 mg by mouth once daily lisinopril 5 mg Tab mg tab(s), Oral, Daily, Refills(s) 0 Start Date: 07/03/21 Status: Ordered Start: 05-13-2019 End: 07-18-2024 take 1 tablet by mouth twice daily Lisinopril 5 mg tablet Active 5 MG PO Twice daily 180 July 18, 2024 2:57pm omeprazole 40 mg delayed release oral capsule (20 sources) Proton Pump Inhibitor Start: 11-26-2023 End: 08-28-2024 take 1 capsule by mouth once daily before mealtime Omeprazole 40 mg capsule,delayed release(DR/EC) Active 0 .ROUTE .COMPLEX 90 August 28, 2024 10:38pm TAKE 1 CAPSULE BY MOUTH EVERY DAY BEFORE A MEAL Start: 07-03-2021 End: 11-26-2023 take 1 capsule by mouth once daily Omeprazole 40 mg capsule,delayed release(DR/EC) Discontinued 40 MG PO Daily November 25, 2023 12:00am November 26, 2023 12:09pm omeprazole 40 mg Cap-DR (3 sources) Start: 07-03-2021 take 1 mg by mouth once daily omeprazole 40 mg Cap-DR mg cap(s), Oral, Daily, Refills(s) 0 Start Date: 07/03/21 Status: Ordered One Touch Glucometer (8 sources) Start: 11-25-2022 One Touch Glucometer use as directed Nov, Active Testosterone (20 sources) Androgen Start: 06-14-2024 inject 200 mg by intramuscular injection every other week Testosterone Cypionate Active 200 MG IM EVERY 2 WEEKS June 14, 2024 12:00am Start: 01-25-2024 inject 200 mg by int ramuscular injection every other week Depo-Testosterone 200 mg/mL intramuscular solution 200 mg, IntraMuscular, q2wk, # 10 mL, Refills(s) 5, Pharmacy: [facility]/pharmacy #[id number], 174, cm, 09/15/23 8:08:00 EST, Height/Length Dosing, 143, kg, 09/15/23 8:08:00 EST, Weight Dosing Start Date: 01/25/24 Status: Ordered Start: 06-09-2023 inject 200 mg by int ramuscular injection every other week Depo-Testosterone 200 mg/mL intramuscular solution 200 mg, IntraMuscular, q2wk, # 10 mL, Refills(s) 5, Pharmacy: [facility]/pharmacy #[id number], 174, cm, 06/09/23 7:58:00 EDT, Height/Length Dosing, 143, kg, 06/09/23 7:58:00 EDT, Weight Dosing Start Date: 06/09/23 Status: Ordered testosterone cypionate 200 mg/mL IM Erin (18 sources) Start: 11-08-2024 inject 150 mg by intramuscular injection every other week testosterone cypionate 200 mg/mL IM Erin 150 mg, IntraMuscular, q2wk, # 10 mL, Refills(s) 3, Pharmacy: [facility]/pharmacy #[id number], 174, cm, 10/26/24 9:18:00 EST, Height/Length Dosing, 147, kg, 10/26/24 9:18:00 EST, Weight Dosing Start Date: 11/08/24 Status: Ordered Start: 10-26-2024 inject 150 mg by int ramuscular injection every other week testosterone cypionate 200 mg/mL IM Erin 150 mg, IntraMuscular, q2wk, # 10 mL, Refills(s) 3, other reason (Rx) Start Date: 10/26/24 Status: Ordered Start: 03-30-2023 inject 150 mg by int ramuscular injection every other week testosterone cypionate 200 mg/mL IM Erin 150 mg, IntraMuscular, q2wk, # 10 mL, Refills(s) 0, Pharmacy: [facility]/pharmacy #[id number], 175, cm, 03/03/23 9:34:00 EDT, Height/Length [...] q2wk, # 1 mL, Refills(s) 5, Pharmacy: [facility]/pharmacy #[id number], 175, cm, 05/27/22 8:55:00 EDT, Height/Length Dosing, 142.9, kg, 05/27/22 8:55:00 EDT, Weight Dosing Start Date: 05/27/22 Status: Ordered Start: 01-05-2022 testosterone c ypionate 200 mg/mL intramuscular solution 200 mg = 1 mL, IntraMuscular, q4wk, # 1 mL, Refills(s) 5, Pharmacy: [facility]/pharmacy #[id number], 175, cm, 11/11/21 8:23:00 EST, Height/Length Dosing, 142.9, kg, 11/11/21 8:23:00 EST, Weight Dosing Start Date: 01/05/22 Status: Ordered Start: 07-07-2021 testosterone c ypionate 200 mg/mL intramuscular solution 200 mg = 1 mL, IntraMuscular, q4wk, # 1 mL, Refills(s) 5, Pharmacy: [facility]/pharmacy #[id number], 175, cm, 07/03/21 9:23:00 EDT, Height/Length Dosing, 136.5, kg, 07/03/21 9:23:00 EDT, Weight Dosing Start Date: 07/07/21 Status: Ordered Testosterone Cypionate 200 mg/mL intramuscular solution (8 sources) Start: 09-23-2022 inject 100 mg by intramuscular injection every other week Testosterone Cypionate 200 mg/mL intramuscular solution 100 mg, IntraMuscular, q2wk, # 10 mL, Refills(s) 0, [id number], cm, 09/09/22 10:01:00 EST, Height/Length Dosing, 139, kg, 09/09/22 10:01:00 EST, Weight Dosing Start Date: 09/23/22 Status: Ordered Testosterone Cypionate 200 mg/mL oil (1 source) Start: 06-14-2024 inject 200 mg by intramuscular injection every other week Testosterone Cypionate 200 mg/mL oil Active 200 MG IM EVERY 2 WEEKS June 14, 2024 12:00am urea 400 mg/ml topical cream (12 sources) Start: 05-04-2024 End: 06-03-2024 urea (Carmol) 40 % cream Indications: Xerosis cutis Apply 1 application topically in the morning and 1 application before bedtime. 85 g 1 05/04/2024 06/03/2024 Active Vitamin B12 1000 mcg Tab (20 sources) [...] Drug Class(es) Dates Sig (Normalized) Sig (Original) acetaminophen 500 mg oral tablet (1 source) Start: 07-24-2024 End: 07-28-2024 take 1 tablet by mouth every six hours as needed for pain and headache and fever 500 mg, oral, Every 6 hours PRN, mild pain - pain scale 1-3, headaches, temperature greater than 38 C, Starting on Wed07/24/24 at 0407, [Warning: Total Acetaminophen not to exceed more than 4 grams (4000 mg) in 24 hours] atorvastatin 20 mg oral tablet (20 sources) HMG-CoA Reductase Inhibitor Start: 07-26-2024 End: 07-28-2024 take 20 mg by mouth once daily 20 mg, oral, Daily, First dose on Wed07/26/24 at 0930, Look-alike/sound-al cee medication - verify indication for use. Start: 06-09-2024 take 1 tablet by jazmín th once daily Atorvastatin 20 mg tablet Active 0 .ROUTE .COMPLEX June 09, 2024 8:34am TAKE ONE TABLET BY MOUTH DAILY Start: 06-09-2024 take 1 tablet by jazmín once daily Atorvastatin Active 0 .ROUTE .COMPLEX June 09, 2024 8:34am TAKE ONE TABLET BY MOUTH DAILY Start: 02-25-2024 End: 06-09-2024 take 1 tablet by mouth once daily Atorvastatin 20 mg tablet Discontinued 20 MG PO Daily February 25, 2024 12:00am June 09, 2024 8:34am Start: 07-03-2021 take 1 mg by mouth once daily atorvastatin 10 mg Tab mg tab(s), Oral, Daily, Refills(s) 0 Start Date: 07/03/21 Status: Ordered calcium chloride 0.0014 meq/ ml / potassium chloride 0.004 meq/ml / sodium chloride 0.103 meq/ml / sodium lactate 0.028 meq/ml injectable solution (3 sources) Start: 07-25-2024 End: 07-25-2024 500 mL, intravenous, at 492 mL/hr, Administer over 61 Minutes, Once, On Wed07/25/24 at 0930, For 1 dose Start: 07-24-2024 End: 07-26-2024 take 125 mL intravenously every hour 125 mL/hr, intravenous, Continuous, Starting on Wed07/25/24 at 0845, For 1 day glucagon (rdna) 1 mg injection (1 source) Antihypoglycemic Agent Start: 07-24-2024 End: 07-28-2024 1 mg, intramuscular, As needed, low blood sugar, blood glucose less than 70 mg/dL and unconscious or NPO without IV access., Starting on Wed07/24/24 at 0407, If conscious and not NPO, immediately follow with meal tray or high protein (7Grams) snack if tray not available. If NPO, initiate IV 5% Dextrose/Water at 100 mL/hr and contact prescriber for additional orders. If blood glucose is not greater than 70 mg/dL after initial treatment, repeat treatment. 150 ml glucose 50 mg/ml injection (3 sources) Start: 07-24-2024 End: 07-28-2024 take 70 mg intravenously every hour 100 mL/hr, intravenous, Continuous PRN, blood glucose less than 70 mg/dL, Starting on Wed07/24/24 at 0407, Use immediately following dextrose 50% or glucagon treatment for patients who are unconscious or NPO. Contact prescriber for additional orders. If blood glucose is not greater than 70 mg/dL after initial treatment, repeat treatment. Start: 07-24-2024 End: 07-28-2024 25 mL, intravenous, As neede d, low blood sugar, blood glucose less than 70 mg/dL and unconscious or NPO with IV access, Starting on Wed07/24/24 at 0407, Push over 1-3 minutes STAT. If conscious and not NPO, immediately follow with meal tray or high protein (7 grams) snack if tray not available. If NPO, initiate 5% dextrose in water at 100 mL/hr and contact prescriber for additional orders. If blood glucose is not greater than 70 mg/dL after initial treatment, repeat treatment. VESICANT (RED) Warning: HYPERTONIC solution. Start: 07-24-2024 End: 07-28-2024 15 g, oral, As needed, low b lood sugar, blood glucose less than 70 mg/dL, Starting on Wed07/24/24 at 0407, If patient conscious and taking PO. If blood glucose is not greater than 70 mg/dL after initial treatment, repeat treatment. 3 ml insulin lispro 100 unt/ml pen injector (2 sources) Insulin Analog Start: 07-26-2024 End: 07-28-2024 inject 400 mg by subcutaneous injection four times daily at mealtime, then inject 2 [IU] by subcutaneous injection 15 minutes after mealtime 2-10 Units, subcutaneous, 4 times daily with meals and nightly, First dose (after last modification) on Wed07/26/24 at 1700, For blood glucose 151-200 mg/dL, give 2 units. For blood glucose 201-250 mg/dL, give 4 units. For blood glucose 251-300 mg/dL, give 6 units. For blood glucose 301-350 mg/dL, give 8 units. For blood glucose 351-400 mg/dL, give 10 units. Notify prescriber if blood glucose greater than 400 mg/dL. Look-alike/sound-alike medication - verify indication for use. Prime with 2 units of insulin prior to administration. Prandial/supplemental Insulin. Pre-filled pens stable 28 days at room temperature. Insulin lispro should be administered within 15 minutes before or immediately after a meal. Start: 07-24-2024 End: 07-26-2024 inject 2-10 [IU] by subcutaneous injection every six hours 2-10 Units, subcutaneous, Every 6 hours, First dose on Wed07/24/24 at 1000, For blood glucose 151-200 mg/dL, give 2 units. For blood glucose 201-250 mg/dL, give 4 units. For blood glucose 251-300 mg/dL, give 6 units. For blood glucose 301-350 mg/dL, give 8 units. For blood glucose 351-400 mg/dL, give 10 units. Notify prescriber if blood glucose greater than 400 mg/dL. Look-alike/sound-alike medication - verify indication for use. Prime with 2 units of insulin prior to administration. Prandial/supplemental Insulin. Pre-filled pens stable 28 days at room temperature. Insulin lispro should be administered within 15 minutes before or immediately after a meal. 50 ml magnesium sulfate 40 mg/ml injection (2 sources) Start: 07-24-2024 End: 11-22-2024 2,000 mg, intravenous, at 25 mL/hr, Administer over 120 Minutes, As needed, Magnesium level 1.7 to 1.9 mg/dL, or Ionized Magnesium level 0.45 to 0.5 mmol/L., Starting on Wed07/24/24 at 1016, Recheck magnesium level 4 hours after infusion complete. With each magnesium result continue the replacement orders as needed. Start: 07-24-2024 End: 07-28-2024 4,000 mg, intravenous, at 25 mL/hr, Administer over 240 Minutes, As needed, Magnesium level 1.6 mg/dL or less, or Ionized Magnesium level 0.44 mmol/L or less, Starting on Wed07/24/24 at 1016, Recheck magnesium level 4 hours after infusion complete. With each magnesium result continue the replacement orders as needed. 5 ml metoprolol tartrate 1 mg/ml injection (1 source) beta-Adrenergic Donovan Start: 07-25-2024 End: 07-26-2024 5 mg, intravenous, Every 6 hours scheduled, First dose (after last modification) on Wed07/25/24 at 0900, Hold for HR pantoprazole 40 mg delayed release oral tablet (2 sources) Proton Pump Inhibitor Start: 07-28-2024 End: 07-28-2024 40 mg, oral, Every morning before breakfast, First dose on Wed07/28/24 at 0700, Look-alike/sound-juvenal e medication - verify indication for use. If patient is receiving enteral feeding, consider alternative PPI or continue IV pantoprazole until the delayed-release tablet can be taken orally, Indication: GERD Start: 07-25-2024 End: 07-27-2024 40 mg, intravenous, Every 24 hours scheduled, First dose on Wed07/25/24 at 1515, GERD Look-alike/sound-alike medication - verify indication for use., Indication: Other (JEFFERSON) pioglitazone 30 mg oral tablet (20 sources) Peroxisome Proliferator Receptor alpha Agonist, Peroxisome Proliferator Receptor gamma Agonist, Thiazolidinedione Start: 03-08-2024 End: 09-04-2024 take 1 tablet by mouth once daily Pioglitazone 30 mg tablet Discontinued 30 MG PO Daily September 04, 2024 1:00am September 04, 2024 1:37pm Start: 12-06-2023 End: 04-17-2024 take 1 tablet by mouth once daily Pioglitazone 30 mg tablet Discontinued 0 .ROUTE .COMPLEX 90 February 24, 2024 4:27pm April 17, 2024 9:17am TAKE 1 TABLET BY MOUTH EVERY DAY FOR 30 DAYS Start: 12-06-2023 End: 12-06-2023 take 1 tablet by mouth once daily Pioglitazone 30 mg tablet Discontinued 30 MG PO Daily December 06, 2023 12:00am December 06, 2023 11:55am Start: 12-09-2022 take 1 tablet by jazmín th every twenty-four hours Actos 15 MG 1 tablet Orally Once a day for 30 days Dec, Active Potassium Chloride (1 source) Start: 07-24-2024 End: 07-28-2024 potassium chloride (K-TAB,KLOR-CON) CR tablet 30-40 mEq prochlorperazine 5 mg/ml injectable solution (1 source) Phenothiazine Start: 07-24-2024 End: 07-28-2024 take 5 mg intravenously every six hours as needed for nausea and vomiting 5 mg, intravenous, Every 6 hours PRN, nausea, vomiting, Starting on Wed07/24/24 at 0355, When administered via IV Push, do not exceed 5 mg per minute sildenafil 100 mg oral tablet (7 sources) Phosphodiesterase 5 Inhibitor Start: 03-17-2023 take 1 tablet by mouth every twenty-four hours as needed Viagra 100 mg Tab 100 mg = 1 tab(s), Oral, As Directed, PRN for erectile dysfunction, 1 hour before sexual activity. Start with 1/2 tablet. Not to exceed 1 tab (100 mg) in 24 hours, # 30 tab(s), Refills(s) 5, Pharmacy: [id number], 175, cm, 03/03/23 9:34... Start Date: [...] hours, # 30 tab(s), Refills(s) 5, Pharmacy: [facility]/pharmacy #[id number], 175, cm, 03/03/23 9:34:00 EDT,... Start Date: 03/03/23 Status: Ordered 125 ml sodium chloride 9 mg/ ml prefilled syringe (2 sources) Start: 07-24-2024 End: 07-28-2024 3 mL, intravenous, Every 12 hours scheduled, First dose on Wed07/24/24 at 0900 Start: 07-24-2024 End: 07-28-2024 3 mL, intravenous, As needed , line care, before and after each intermittent use, Starting on Wed07/24/24 at 0407 sulfamethoxazole 800 mg / trimethoprim 160 mg oral tablet (5 sources) Dihydrofolate Reductase Inhibitor Antibacterial, Sulfonamide Antimicrobial Start: 02-23-2024 End: 04-17-2024 take 1 tablet by mouth twice daily Sulfamethoxazole-Trimethoprim 800-160 mg tablet Discontinued 1 TAB PO Twice daily February [...] hours., # 30 tab(s), Refills(s) 3, Pharmacy: [id number], 174, cm, 09/15/23 8:08:00 EST, Height/Length Dosing, 143, kg, 09/15/23 8:08:00 EST, Weight Dosing Start Date: 09/15/23 Status: Ordered Start: 06-09-2023 Cialis 20 mg T ab 20 mg = 1 tab(s), Oral, As Directed, PRN for erectile dysfunction, Do not exceed 20mg within 24 hours., # 30 tab(s), Refills(s) 3, Pharmacy: [facility]/pharmacy #[id number], 174, cm, 06/09/23 7:58:00 EDT, Height/Length Dosing, 143, kg, 06/09/23 7:58:00 EDT, Weight Dosing Start Date: 06/09/23 Status: Ordered Tirzepatide (3 sources) Start: 05-01-2024 End: 06-14-2024 Tirzepatide (Mounjaro) 2.5 m g/0.5 mL pen injector Discontinued 2.5 MG SUBCUT every week 11 03May 01, 2024 12:00am June 14, 2024 9:33am patient will have voucher Start: 05-01-2024 Tirzepatide (M ounjaro) 2.5 mg/0.5 mL pen injector Active 2.5 MG SUBCUT every week 11 03May 01, 2024 12:00am patient will have voucher Tirzepatide (3 sources) Start: 05-01-2024 End: 08-07-2024 Tirzepatide (Mounjaro) 5 mg/ 0.5 mL pen injector Discontinued 5 MG SUBCUT every week May 01, 2024 12:00am August 07, 2024 10:18am to follow 2.5 mg (voucher) Start: 05-01-2024 Tirzepatide (M ounjaro) 5 mg/0.5 mL pen injector Active 5 MG SUBCUT every week May 01, 2024 12:00am to follow 2.5 mg (voucher) tirzepatide (MOUNJARO) 5 mg/ 0.5 mL pen injector (1 source) End: 07-28-2024 tirzepatide (MOUNJARO) 5 mg/ 0.5 mL pen injector Inject 5 mg under the skin every 7 days. 07/28/2024 Discontinued (Stop Taking at Discharge) Problems Active Problems Problem Classification Problem Date [...] disease (20 sources) Atherosclerotic heart disease of [place] coronary artery without angina pectoris; Translations: [Double [...] unspecified hyperlipidemia] Onset: 01-26-2022 Chronic Esophageal disorders (14 sources) Gastroesophageal reflux disease without esophagitis; Translations: [...] lower urinary tract symptoms] Onset: 08-19-2022 Chronic Intestinal obstruction without hernia (6 sources) Small bowel obstruction; Translations: [Unspecified intestinal obstruction, unspecified as to partial versus complete obstruction] Onset: 07-24-2024 07-24-2024 Episodic Malaise and fatigue (18 sources) Fatigue; Translations: [Other fatigue] Onset: 09-15-2018 02-23-2024 Episodic Mood disorders (14 sources) Depression; Translations: [Major depressive disorder, single episode, unspecified] Onset: 05-01-2022 Chronic Nonspecific chest pain (6 sources) Chest discomfort; Translations: [Other chest pain] 05-13-2019 Episodic Open wounds of extremities (6 sources) Injury of foot; Translations: [Unspecified open wound, unspecified foot, initial encounter] 04-17-2024 Episodic Comment on above: Bilateral foot wound s Osteoarthritis (5 sources) Localized, primary osteoarthritis of [...] Chronic Other endocrine disorders (20 sources) Male hypogonadism; Translations: [Testicular hypofunction] 09-02-2022 Chronic Other endocrine disorders (5 sources) [...] nutritional; endocrine; and metabolic disorders (16 sources) Morbid obesity; Translations: [Morbid obesity] 05-14-2019 Chronic Other nutritional; endocrine; and metabolic disorders (1 source) Morbid (severe) obesity due to excess calories; Translations: [MORBID SEVERE OBES D/T EXCESS DAVID] Onset: 08-07-2022 Chronic Other nutritional; endocrine; and metabolic disorders (1 source) Body mass index (BMI) 45.0-49.9, adult; Translations: [BODY MASS INDEX BMI 45.0-49.9 ADULT] Onset: 08-07-2022 Chronic Other nutritional; endocrine; and metabolic disorders (9 sources) Obesity; Translations: [Obesity, unspecified] Onset: 07-13-2014 04-17-2024 Chronic Other nutritional; endocrine; and metabolic disorders (3 sources) Obesity, unspecified; Translations: [Obesity, unspecified] 04-17-2024 Chronic Other screening for suspected conditions (not mental disorders or infectious disease) (20 sources) Decreased testosterone level ; Translations: [Blood chemistry abnormal] Onset: 03-03-2022 07-03-2021 Episodic Other skin disorders (5 sources) Callosity; Translations: [Corns and callosities] Episodic Other skin disorders (4 sources) Hemosiderin pigmentation of lower limb due to varicose veins of lower limb; Translations: [Other specified disorders of pigmentation] 04-17-2024 Episodic Other skin disorders (3 sources) Other specified disorders of pigmentation; Translations: [Dyschromia, unspecified] 04-17-2024 Episodic Other skin disorders (8 sources) Asteatosis cutis; Translations: [Xerosis cutis] 05-14-2024 Episodic Other skin disorders (6 sources) Fissure in skin; Translations: [Changes in skin texture] 05-14-2024 Episodic Peripheral and visceral atherosclerosis (18 sources) Intermittent claudication; Translations: [Peripheral vascular disease, unspecified] 03-01-2024 Chronic Residual codes; unclassified (10 sources) Obstructive sleep apnea syndrome; Translations: [Obstructive sleep apnea] Onset: 03-08-2018 07-28-2024 Chronic Residual codes; unclassified (6 sources) Sleep apnea; Translations: [Sleep apnea, unspecified] 05-14-2019 Chronic Residual codes; unclassified (8 sources) Edema; Translations: [Localized edema] Episodic Residual codes; unclassified (8 sources) Localized edema; Translations: [Localized edema] Onset: 02-24-2022 04-17-2024 Episodic Residual codes; unclassified (5 sources) Tobacco user; Translations: [Tobacco use] Episodic Residual codes; unclassified (4 sources) Bilateral lower limb edema; Translations: [Localized edema] 04-17-2024 Episodic Residual codes; unclassified (1 source) Pain, unspecified; Translations: [Pain, unspecified] Onset: 07-23-2024 Episodic Screening and history of mental health [...] Unclassified (2 sources) Athscl heart disease of [place] coronary artery w/o ang pctrs / I25.10(ICD-9) Onset: 07-14-2018 Unclassified (20 sources) Asymptomatic microscopic hematuria 11-11-2021 Unclassified (1 source) CONTACT W/AND (SUSP) EXPOS COVID-19; Translations: [CONTACT W/AND (SUSP) EXPOS COVID-19] Onset: 05-01-2022 Varicose veins of lower extremity (11 sources) Pain co-occurrent and due to varicose [...] Onset: 12-12-2014 Episodic Other aftercare (1 source) jail (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; Translations: [PRISON CURRENT USE OF ASPIRIN] Onset: 08-07-2022 Episodic Other aftercare (1 source) jail (current) use of oral hypoglycemic drugs; Translations: [MANAGER OF SELECTION AND ASSESSMENT USE ORAL HYPOGLYCEMIC DX] Onset: 08-07-2022 Episodic Other aftercare (1 source) Other jail (current) drug therapy; Translations: [OTH MANAGER OF SELECTION AND ASSESSMENT CURRENT DRUG THERAPY] Onset: 05-01-2022 Episodic Other [...] source) Xerosis cutis; Translations: [XEROSIS CUTIS] Onset: 05-23-2022 Episodic Other skin disorders (5 sources) Hypertrophic [...] Range Facil ity Ambulatory Visit Summaryon 0 10-26-2024 Ambulatory Visit Summary Ambulatory Visit Summary JOHNATHAN CORREA :1960 Visit Date:10/26/2024 Ambulatory Visit Instructions Your Diagnosis Hypogonadism male BPH without urinary obstruction ED (erectile dysfunction) Your Care Team Attending [...] mg Cap-DR) pioglitazone (pioglitazone 30 mg Tab) Procedures Performed Aortic stent, Big toe, Tonsillectomy. Discharge Vitals Heart Rate (Peripheral) 74 Blood Pressure 127/73 Height 174 cm Height 69 in Weight 147 kg Weight 324.079 lb BMI 48.55 What to do next Scheduled Follow-Up Appointments Wednesday 8:30 AM EST With: Where: [facility] [address] [place] [address]- Wednesday 8:00 AM EDT With: Where: [facility] [address] [facility] [place] [place] [address]- Wednesday 8:45 AM EDT With: Carlos LIZAMA, Lety Scott Where: [facility] [address] [place] [address]- You Need to Schedule the Following Appointments Follow Up with Carlos LIZAMA, Lety Scott, URL, URO When: Where: You Need to Complete the Following Testosterone Level Total, Blood, Routine collect, 04/06/25, Order for future visit, Lab Collect, Hypogonadism male, Print Label By Order Location Medications What How Much When Why Instructions Unchanged tadalafil (Cialis 20 mg Tab) 1 Tablets By Mouth As Directed as needed for for erectile dysfunction Take 1 tab 1 hour prior to intercourse. Do not exceed 20mg within 24 hours. Unchanged testosterone (Depo-Testosterone 200 mg/ mL intramuscular solution) 200 Milligram Intramuscular Every other week Hypogonadism male ED (erectile dysfunction) Unchanged amlodipine (amLODIPine 5 mg Tab) By Mouth Every day Contact prescribing physician if questions or concerns Unchanged atorvastatin (atorvastatin 10 mg Tab) By Mouth Every day Contact prescribing physician if questions or concerns Unchanged carvedilol (carvedilol 12.5 mg Tab) By Mouth 2 times a day Contact prescribing physician if questions or concerns Unchanged citalopram By Mouth Every day Contact prescribing physician if questions or concerns Unchanged ertugliflozin (Steglatro 15 mg oral tablet) By Mouth Once a day (in the morning) Contact prescribing physician if questions or concerns Unchanged glipiZIDE (glipiZIDE 5 mg Tab) By Mouth Every day Contact prescribing physician if questions or concerns Unchanged lisinopril (lisinopril 5 mg Tab) By Mouth Every day Contact prescribing physician if questions or concerns Unchanged omeprazole (omeprazole 40 mg Cap-DR) By Mouth Every day Contact prescribing physician if questions or concerns Unchanged pioglitazone (pioglitazone 30 mg Tab) TAKE 1 TABLET BY MOUTH EVERY DAY FOR 30 DAYS Contact prescribing physician if questions or concerns Medications and Immunizations Administered Given Depo-Testosterone 200 mg/mL intramuscular solution, 150 mg, IntraMuscular. For: Hypogonadism male Allergies metFORMIN [...] you for choosing us for your care. Education Materials Hypogonadism, Male Male hypogonadism is a condition of having a level of testosterone that is lower than normal. Testosterone is a chemical, or hormone, that is made mainly in the testicles. In boys, testosterone is responsible for the development of male characteristics during puberty. These include: ??? Making the penis bigger. ??? Growing and building the muscles. ??? Growing facial hair. ??? Deepening the voice. In adult men, testosterone is responsible for maintaining: ??? An interest in sex and the ability to have sex. ??? Muscle mass. ??? Sperm production. ??? Red blood cell production. ??? Bone strength. Testosterone also gives men (more content not included)... [facility] Urology Office/Clinic Noteon 10-26-2024 Urology Office/Clinic Note Urology Office/Clinic Note Chief Complaint follow up HPI Staff 64 year old male here for 6 month follow up with testosterone level Previous Dx: hypogonadism, ED, bph with luts *testosterone 200mg/1ml q2wks* Last injection 10/11 Testosterone 10/18/23- 732 Patient denies any dysuria or gross hematuria. Nocturia 1x. Denies any flank or abdomen pain. History of Present Illness Tests reviewed: reviewed UA, testosterone, A1c. I have reviewed the previous health record information and history for this patient from Dr. Gonzalez I have reviewed and verified the staff [...] Physical Exam Vitals & Measurements HR: 74(Peripheral) BP: 127/73 HT: 69 in HT: 174 cm WT: 147 kg WT: 324.079 lb BMI: 48.55 General Appearance: alert, no distress, well nourished, well developed male. Assessment/Plan 64 yo male here for TRT f/up. Most recent hgbA1c 03/01/24 - 8.5. Encouraged dm control. 1. Hypogonadism male (E29.1: Testicular hypofunction) Testosterone 05/13/22 - 323 07/29/22 - 830, on 200mg q2w 11/18/22 - 234, on 100mg q2wk 02/24/23 - 390, on 150mg q2wk 06/02/23 - 333, on 150mg q2wk 09/08/23 - 478, on 200mg q2wks 03/01/24 - 547, on 200mg q2wks 09/13/24 - 630 10/18/24 - 732 Other labs 06/02/23 - HGB 16.5. HCT 50.1. 03/01/24 - HGB 16.1. HCT 48.4. Receiving Testosterone IM 200mg q2wks. Last injection administered 10/11/24. Discussed decreasing to 150mg q2wks due to rising testosterone level. Pt agrees. Pt states he is very pleased since starting TRT a few years ago, I got my strength back . Overall no huge sx changes from 400s to 700s -Decrease testosterone IM to 150mg q2wks -Repeat testosterone level, Hct, PSA in 6 months -If pt having sx, can recheck T earlier to see if adjustment needed Follow up in 6 months with testosterone level. 2. BPH without urinary obstruction (N40.0: Benign prostatic hyperplasia without lower urinary tract symptoms) PSA 10/21/21 - 0.7 & 41% 02/24/23 - 3.6 06/02/23 - 1.27 03/01/24 - 0.8 UA today negative for blood and infection. IPSS 3 (4) Not currently taking any BPH meds. Not voicing any urinary habit complaints. PSA has decreased. -Cont symptomatic monitoring -Cont prostate cancer screening 3. ED (erectile dysfunction) (N52.9: Male erectile dysfunction, unspecified) Tried Viagra 100mg prn but did not have any effect. [1] SHANTA 1 (1) Failed Cialis 20mg prn. Discussed options. Not interested in other treatment options. -Consider alternative treatment options Follow-up With When Contact Information Carlos LIZAMA, Lety Scott, URL, URO Additional Instructions: 6 mos w/ testosterone level Patient Education Hypogonadism, Male I, Felicia Elmore, personally scribed for Dr. Gonzalez on 10/26/2024 09:59:48. . Documentation recorded by the scribe, Felicia Elmore, accurately reflects the services(s) I performed and decisions made by me. Authenticated by Dr. Gonzalez on 10/26/2024 15:14:53. Problem List/Past Medical History Ongoing Asymptomatic microscopic hematuria BPH without urinary obstruction Diabetes mellitus ED (erectile dysfunction) Essential hypertension Former smoker Groin pain Hyperlipidemia Hypogonadism male Low testosterone Nocturia Historical No qualifying data Procedure/Surgical History Aortic stent, Big toe, Tonsillectomy. Medications amLODIPine 5 mg Tab, Oral, Daily atorvastatin 10 mg Tab, Oral, Daily carvedilol 12.5 mg Tab, Oral, BID Cialis 20 mg Tab, 20 mg= 1 tab(s), Oral, As Directed, PRN, 3 refills, Not taking citalopram, Oral, Daily Depo-Testosterone 200 mg/mL intramuscular solution, 200 mg, IntraMuscular, q2wk, 5 refills Depo-Testosterone 200 mg/mL intramuscular solution, 200 mg, IntraMuscular, q2wk Depo-Testosterone 200 mg/mL intramuscular solution, 200 mg= [...] Use:. Never Smokeless Tobacco Use:. Cigarettes, Household tob (more content not included)... [facility] Comment on above: Result Comment: Elec tronically Signed By: Lue MD, Lety M.\.br\Date and Time Signed: 10/26/24 15:15 EST\.br\Electronically Co-Signed By: Felicia Elmore\.br\Date and Time Co-Signed: 10/26/24 09:59 EST Testost Totalon 10-20-2024 Testosterone [Mass/Vol] 732 ng/dL Invalid Interpretation Code [id number] [facility] Comment on above: Result Comment: Adul t male reference interval is based on a population of healthy nonobese males (BMI <30) between 19 and 39 years old. Tayler, et.al. JCEM 2017,102;1846-3882. PMID: 85335008. Performed at: [address] [id number] PhD Arianne Fonseca Performed By: #### [id number] #### [facility] [address] [place] [id number] Testost Totalon 09-15-2024 Testosterone [Mass/Vol] 630 ng/dL Invalid Interpretation Code [id number] [facility] Comment on above: Result Comment: Adul t male reference interval is based on a population of healthy nonobese males (BMI <30) between 19 and 39 years old. Travestephania, et.al. EM 2017,102;8932-7137. PMID: 07009099. Performed at: [address] [id number] PhD Arianne Fonseca Performed By: #### [id number] #### [facility] [address] [id number] CBC auto differentialon 07-08 Basophils (Bld) [#/Vol] 0 10*3/uL [facility] Basophils/100 WBC (Bld) 0.5 % [facility] Eosinophils (Bld) [#/Vol] 0.3 10*3/uL [facility] Eosinophils/100 WBC (Bld) 3.4 % [facility] Erythrocyte distribution width (RBC) [Ratio] 16.2 % High 11.5 - 15.0 % [facility] Hematocrit (Bld) [Volume fraction] 43.7 % 39 - 49 % [facility] Hemoglobin (Bld) [Mass/Vol] 15 g/dL 13.0 - 17.0 g/dL [facility] Interpretation and review of laboratory results Abnormal [facility] Lymphocytes (Bld) [#/Vol] 1.3 10*3/uL [facility] Lymphocytes/100 WBC (Bld) 14.2 % [facility] MCH (RBC) [Entitic mass] 26.7 pg Low 27 - 34 pg [facility] MCHC (RBC) [Mass/Vol] 34.3 g/dL 32 - 36 g/dL [facility] MCV (RBC) [Entitic vol] 78 fL Low 80 - 100 fL [facility] Monocytes (Bld) [#/Vol] 0.6 10*3/uL [facility] Monocytes/100 WBC (Bld) 6.6 % [facility] Neutrophils (Bld) [#/Vol] 7 10*3/uL High [facility] Neutrophils/100 WBC (Bld) 75.3 % [facility] Platelet mean volume (Bld) [Entitic vol] 9 fL 7 - 12 fL [facility] Platelets (Bld) [#/Vol] 161 10*3/uL [facility] RBC (Bld) [#/Vol] 5.61 10*6/uL [facility] WBC corrected for nucl RBC Auto (Bld) [#/Vol] 9.2 [facility] Comprehensive metabolic pane rhoda 07-28-2024 Albumin [Mass/Vol] 3.3 g/dL 3.2 - 5.3 g/dL Pr [facility] ALP [Catalytic activity/Vol] 64 U/L 39 - 130 U/L [facility] ALT No additional P-5'-P [Catalytic activity/Vol] 15 U/L 0 - 40 U/L [facility] Anion gap [Moles/Vol] 8 mmol/L 5 - 15 mmol/L [facility] AST [Catalytic activity/Vol] 21 U/L 0 - 41 U/L [facility] Bilirubin [Mass/Vol] 1.1 mg/dL 0.3 - 1.2 mg/dL [facility] Calcium [Mass/Vol] 8.2 mg/dL Low 8.5 - 10.5 mg/dL [facility] Chloride [Moles/Vol] 101 mmol/L 98 - 109 mmol/L [facility] CO2 [Moles/Vol] 26 mmol/L 22 - 32 mmol/L [facility] Creatinine [Mass/Vol] 0.82 mg/dL 0.60 - 1.30 mg/dL [facility] Comment on above: METHOD TRACEABLE TO [facility] STANDARD eGFR (CKD-EPI)non-race dependent - PINF [facility] Comment on above: Reported eGFR is based on the CKD-EPI 2020 equation that does not use a race coefficient. Glucose [Mass/Vol] 132 mg/dL High 65 - 99 mg/dL [facility] Interpretation and review of laboratory results Abnormal [facility] Potassium [Moles/Vol] 3.4 mmol/L Low 3.5 - 5.0 mmol/L [facility] Protein [Mass/Vol] 5.9 g/dL Low 6.0 - 8.0 g/dL [facility] Sodium [Moles/Vol] 135 mmol/L 134 - 146 mmol/L [facility] Urea nitrogen [Mass/Vol] 10 mg/dL 5 - 27 mg/dL [facility] Glucose Glucometer (BldC) [M ass/Vol]on 07-28-2024 Glucose [Mass/Vol] 149 mg/dL High 65 - 99 mg/dL [facility] Interpretation and review of laboratory results Abnormal [facility] Glucose [Mass/Vol] 231 mg/dL High 65 - 99 mg/dL [facility] Interpretation and review of laboratory results Abnormal [facility] Magnesiumon 07-28-2024 Magnesium [Mass/Vol] 1.9 mg/dL 1.8 - 2.6 mg/dL [facility] Magnesium [Mass/Vol] 2 mg/dL 1.8 - 2.6 mg/dL [facility] Magnesium [Mass/Vol]on 07-28 [facility] No Panel Informationon 07-28 [facility] CBC auto differentialon 07-08 Basophils (Bld) [#/Vol] 0.1 10*3/uL [facility] Basophils/100 WBC (Bld) 0.6 % [facility] Eosinophils (Bld) [#/Vol] 0.2 10*3/uL [facility] Eosinophils/100 WBC (Bld) 2.5 % [facility] Erythrocyte distribution width (RBC) [Ratio] 16.4 % High 11.5 - 15.0 % [facility] Hematocrit (Bld) [Volume fraction] 45.6 % 39 - 49 % [facility] Hemoglobin (Bld) [Mass/Vol] 15.6 g/dL 13.0 - 17.0 g/dL [facility] Interpretation and review of laboratory results Abnormal [facility] Lymphocytes (Bld) [#/Vol] 1.1 10*3/uL [facility] Lymphocytes/100 WBC (Bld) 10.8 % [facility] MCH (RBC) [Entitic mass] 26.8 pg Low 27 - [address] [facility] MCHC (RBC) [Mass/Vol] 34.3 g/dL 32 - 36 g/dL [facility] MCV (RBC) [Entitic vol] 78 fL Low 80 - [address] [facility] Monocytes (Bld) [#/Vol] 0.6 10*3/uL [facility] Monocytes/100 WBC (Bld) 6.5 % [facility] Neutrophils (Bld) [#/Vol] 7.9 10*3/uL [facility] Neutrophils/100 WBC (Bld) 79.6 % [facility] Platelet mean volume (Bld) [Entitic vol] 8.7 fL 7 - [address] [facility] Platelets (Bld) [#/Vol] 162 10*3/uL [facility] RBC (Bld) [#/Vol] 5.83 10*6/uL High [facility] WBC corrected for nucl RBC Auto (Bld) [#/Vol] 9.9 [facility] Cobalamin (Vitamin B12) [Mas s/Vol]on 07-27-2024 [facility] Comprehensive metabolic pane rhoda 07-27-2024 Albumin [Mass/Vol] 3.6 g/dL 3.2 - 5.3 g/dL Pr [facility] ALP [Catalytic activity/Vol] 66 U/L 39 - 130 U/L [facility] ALT No additional P-5'-P [Catalytic activity/Vol] 15 U/L 0 - 40 U/L [facility] Anion gap [Moles/Vol] 8 mmol/L 5 - 15 mmol/L [facility] AST [Catalytic activity/Vol] 22 U/L 0 - 41 U/L [facility] Bilirubin [Mass/Vol] 1.3 mg/dL High 0.3 - 1.2 mg/dL [facility] Calcium [Mass/Vol] 8.6 mg/dL 8.5 - 10.5 mg/dL [facility] Chloride [Moles/Vol] 99 mmol/L 98 - 109 mmol/L [facility] CO2 [Moles/Vol] 30 mmol/L 22 - 32 mmol/L [facility] Creatinine [Mass/Vol] 0.91 mg/dL 0.60 - 1.30 mg/dL [facility] Comment on above: METHOD TRACEABLE TO [facility] STANDARD eGFR (CKD-EPI)non-race dependent - PINF [facility] Comment on above: Reported eGFR is based on the CKD-EPI 2020 equation that does not use a race coefficient. Glucose [Mass/Vol] 136 mg/dL High 65 - 99 mg/dL [facility] Potassium [Moles/Vol] 3.9 mmol/L 3.5 - 5.0 mmol/L [facility] Protein [Mass/Vol] 6.7 g/dL 6.0 - 8.0 g/dL Pr [facility] Sodium [Moles/Vol] 137 mmol/L 134 - 146 mmol/L [facility] Urea nitrogen [Mass/Vol] 11 mg/dL 5 - 27 mg/dL [facility] Ferritinon 07-27-2024 Ferritin [Mass/Vol] 96 ng/mL 24 - 336 ng/mL [facility] Ferritin [Mass/Vol]on 2023 [facility] Folateon 07-27-2024 Folate [Mass/Vol] 8.4 ng/mL 5.8 - PINF ng/mL [facility] Comment on above: NEW REFERENCE RANGE Folate [Mass/Vol]on 07-27-20 [facility] Glucose Glucometer (BldC) [M ass/Vol]on 07-27-2024 Glucose [Mass/Vol] 203 mg/dL High 65 - 99 mg/dL [facility] Interpretation and review of laboratory results Abnormal [facility] Glucose [Mass/Vol] 190 mg/dL High 65 - 99 mg/dL [facility] Interpretation and review of laboratory results Abnormal [facility] Glucose [Mass/Vol] 130 mg/dL High 65 - 99 mg/dL [facility] Interpretation and review of laboratory results Abnormal [facility] Iron and TIBCon 07-27-2024 Interpretation and review of laboratory results Abnormal [facility] Iron [Mass/Vol] 34 ug/dL Low 50 - 212 ug/dL [facility] Iron binding capacity [Mass/Vol] 283 ug/dL 250 - 425 ug/dL [facility] Iron saturation [Mass fraction] 12 Low [facility] Magnesiumon 07-27-2024 Magnesium [Mass/Vol] 1.7 mg/dL Low 1.8 - 2.6 mg/dL [facility] No Panel Informationon 07-27 Interpretation and review of laboratory results Abnormal [facility] Vitamin B12on 07-27-2024 Cobalamin (Vitamin B12) [Mass/Vol] 268 pg/mL 180 - 914 pg/mL [facility] CBC auto differentialon 07-08 Basophils (Bld) [#/Vol] 0.1 10*3/uL [facility] Basophils/100 WBC (Bld) 0.5 % [facility] Eosinophils (Bld) [#/Vol] 0.1 10*3/uL [facility] Eosinophils/100 WBC (Bld) 0.9 % [facility] Erythrocyte distribution width (RBC) [Ratio] 16.8 % High 11.5 - 15.0 % [facility] Hematocrit (Bld) [Volume fraction] 46 % 39 - 49 % [facility] Hemoglobin (Bld) [Mass/Vol] 15.5 g/dL 13.0 - 17.0 g/dL [facility] Interpretation and review of laboratory results Abnormal [facility] Lymphocytes (Bld) [#/Vol] 1.3 10*3/uL [facility] Lymphocytes/100 WBC (Bld) 8 % [facility] MCH (RBC) [Entitic mass] 26.5 pg Low 27 - [address] [facility] MCHC (RBC) [Mass/Vol] 33.8 g/dL 32 - 36 g/dL [facility] MCV (RBC) [Entitic vol] 78 fL Low 80 - [address] [facility] Monocytes (Bld) [#/Vol] 1.2 10*3/uL High [facility] Monocytes/100 WBC (Bld) 7.5 % [facility] Neutrophils (Bld) [#/Vol] 13.3 10*3/uL High [facility] Neutrophils/100 WBC (Bld) 83.1 % [facility] Platelet mean volume (Bld) [Entitic vol] 9.3 fL 7 - [address] [facility] Platelets (Bld) [#/Vol] 130 10*3/uL Low [facility] RBC (Bld) [#/Vol] 5.87 10*6/uL High [facility] WBC corrected for nucl RBC Auto (Bld) [#/Vol] 15.9 High [facility] Comprehensive metabolic pane rhoda 07-26-2024 Albumin [Mass/Vol] 3.5 g/dL 3.2 - 5.3 g/dL Pr [facility] ALP [Catalytic activity/Vol] 69 U/L 39 - 130 U/L [facility] ALT No additional P-5'-P [Catalytic activity/Vol] 11 U/L 0 - 40 U/L [facility] Anion gap [Moles/Vol] 9 mmol/L 5 - 15 mmol/L [facility] AST [Catalytic activity/Vol] 17 U/L 0 - 41 U/L [facility] Bilirubin [Mass/Vol] 1.3 mg/dL High 0.3 - 1.2 mg/dL [facility] Calcium [Mass/Vol] 8.4 mg/dL Low 8.5 - 10.5 mg/dL [facility] Chloride [Moles/Vol] 101 mmol/L 98 - 109 mmol/L [facility] CO2 [Moles/Vol] 30 mmol/L 22 - 32 mmol/L [facility] Creatinine [Mass/Vol] 0.93 mg/dL 0.60 - 1.30 mg/dL [facility] Comment on above: METHOD TRACEABLE TO [facility] STANDARD eGFR (CKD-EPI)non-race dependent - PINF [facility] Comment on above: Reported eGFR is based on the CKD-EPI 2020 equation that does not use a race coefficient. Glucose [Mass/Vol] 134 mg/dL High 65 - 99 mg/dL [facility] Interpretation and review of laboratory results Abnormal [facility] Potassium [Moles/Vol] 3.9 mmol/L 3.5 - 5.0 mmol/L [facility] Protein [Mass/Vol] 6.3 g/dL 6.0 - 8.0 g/dL Pr [facility] Sodium [Moles/Vol] 140 mmol/L 134 - 146 mmol/L [facility] Urea nitrogen [Mass/Vol] 16 mg/dL 5 - 27 mg/dL [facility] Glucose Glucometer (BldC) [M ass/Vol]on 07-26-2024 Glucose [Mass/Vol] 143 mg/dL High 65 - 99 mg/dL [facility] Interpretation and review of laboratory results Abnormal [facility] Glucose [Mass/Vol] 143 mg/dL High 65 - 99 mg/dL [facility] Interpretation and review of laboratory results Abnormal [facility] Glucose [Mass/Vol] 177 mg/dL High 65 - 99 mg/dL [facility] Interpretation and review of laboratory results Abnormal [facility] Glucose [Mass/Vol] 141 mg/dL High 65 - 99 mg/dL [facility] Interpretation and review of laboratory results Abnormal [facility] Glucose [Mass/Vol] 143 mg/dL High 65 - 99 mg/dL [facility] Interpretation and review of laboratory results Abnormal [facility] Lactate (P yoan) [Moles/Vol]o n 07-26-2024 [facility] Lactate w/ Reflexon 07-26-20 Lactate (P yoan) [Moles/Vol] 1.4 mmol/L 0.4 - 2.0 mmol/L [facility] Comment on above: Result did not trigger repeat Lactate, re-order if needed. Magnesiumon 07-26-2024 Magnesium [Mass/Vol] 2 mg/dL 1.8 - 2.6 mg/dL [facility] No Panel Informationon 07-26 [facility] Urinalysison 07-26-2024 Bilirubin Ql (U) SMALL Abnormal Negative^Ne gativ e [facility] Comment on above: Not confirmed, inter pret positive results with caution. Color (U) YELLOW YELLOW^YELLOW [facility] Glucose (U) [Mass/Vol] 100 mg/dL Abnormal Negative^Negativ e [facility] Hemoglobin Auto test strip Ql (U) Negative Negative^Negativ e [facility] Interpretation and review of laboratory results Abnormal [facility] Ketones (U) [Mass/Vol] Negative Negative^Negativ e mg/dL [facility] Leukocyte esterase Auto test strip Ql (U) Negative Negative^Negativ e [facility] Nitrite Auto test strip Ql (U) Negative Negative^Negativ e [facility] pH (U) 6.5 [pH] 5.0 - 8.5 [facility] Protein (U) [Mass/Vol] Trace Abnormal Negative^Negativ e mg/dL [facility] RBC Auto (Urine sed) [#/Area] 2 [facility] Specific gravity Refractometry automated (U) [Rel density] 1.025 1.003 - 1.035 [facility] Turbidity Ql (U) CLEAR CLEAR^CLEAR [facility] Urobilinogen Qn (U) 4 High NINF [facility] WBC Auto (Urine sed) [#/Area] 2 [facility] CBC auto differentialon 07-07 Basophils (Bld) [#/Vol] 0 10*3/uL [facility] Basophils/100 WBC (Bld) 0.3 % [facility] Eosinophils (Bld) [#/Vol] 0 10*3/uL [facility] Eosinophils/100 WBC (Bld) 0.2 % [facility] Erythrocyte distribution width (RBC) [Ratio] 16.9 % High 11.5 - 15.0 % [facility] Hematocrit (Bld) [Volume fraction] 51.3 % High 39 - 49 % [facility] Hemoglobin (Bld) [Mass/Vol] 17.2 g/dL High 13.0 - 17.0 g/dL [facility] Interpretation and review of laboratory results Abnormal [facility] Lymphocytes (Bld) [#/Vol] 1 10*3/uL [facility] Lymphocytes/100 WBC (Bld) 5.8 % [facility] MCH (RBC) [Entitic mass] 26.4 pg Low 27 - [address] [facility] MCHC (RBC) [Mass/Vol] 33.5 g/dL 32 - 36 g/dL [facility] MCV (RBC) [Entitic vol] 79 fL Low 80 - [address] [facility] Monocytes (Bld) [#/Vol] 1.2 10*3/uL High [facility] Monocytes/100 WBC (Bld) 6.6 % [facility] Neutrophils (Bld) [#/Vol] 15.2 10*3/uL High [facility] Neutrophils/100 WBC (Bld) 87.1 % [facility] Platelet mean volume (Bld) [Entitic vol] 9.4 fL 7 - [address] [facility] Platelets (Bld) [#/Vol] 153 10*3/uL [facility] RBC (Bld) [#/Vol] 6.51 10*6/uL High [facility] WBC corrected for nucl RBC Auto (Bld) [#/Vol] 17.5 High [facility] Comprehensive metabolic pane rhoda 07-25-2024 Albumin [Mass/Vol] 3.8 g/dL 3.2 - 5.3 g/dL Pr [facility] ALP [Catalytic activity/Vol] 57 U/L 39 - 130 U/L [facility] ALT No additional P-5'-P [Catalytic activity/Vol] 12 U/L 0 - 40 U/L [facility] Anion gap [Moles/Vol] 9 mmol/L 5 - 15 mmol/L [facility] AST [Catalytic activity/Vol] 20 U/L 0 - 41 U/L [facility] Bilirubin [Mass/Vol] 1.3 mg/dL High 0.3 - 1.2 mg/dL [facility] Calcium [Mass/Vol] 8.4 mg/dL Low 8.5 - 10.5 mg/dL [facility] Chloride [Moles/Vol] 102 mmol/L 98 - 109 mmol/L [facility] CO2 [Moles/Vol] 28 mmol/L 22 - 32 mmol/L [facility] Creatinine [Mass/Vol] 0.98 mg/dL 0.60 - 1.30 mg/dL [facility] Comment on above: METHOD TRACEABLE TO [facility] STANDARD eGFR (CKD-EPI)non-race dependent 87 - PINF [facility] Comment on above: Reported eGFR is based on the CKD-EPI 2020 equation that does not use a race coefficient. Glucose [Mass/Vol] 179 mg/dL High 65 - 99 mg/dL [facility] Interpretation and review of laboratory results Abnormal [facility] Potassium [Moles/Vol] 4.1 mmol/L 3.5 - 5.0 mmol/L [facility] Protein [Mass/Vol] 6.7 g/dL 6.0 - 8.0 g/dL Pr [facility] Sodium [Moles/Vol] 139 mmol/L 134 - 146 mmol/L [facility] Urea nitrogen [Mass/Vol] 21 mg/dL 5 - 27 mg/dL [facility] Glucose Glucometer (BldC) [M ass/Vol]on 07-25-2024 Glucose [Mass/Vol] 178 mg/dL High 65 - 99 mg/dL [facility] Interpretation and review of laboratory results Abnormal [facility] Glucose [Mass/Vol] 167 mg/dL High 65 - 99 mg/dL [facility] Interpretation and review of laboratory results Abnormal [facility] Magnesiumon 07-25-2024 Magnesium [Mass/Vol] 2.2 mg/dL 1.8 - 2.6 mg/dL [facility] No Panel Informationon 07-25 [facility] XR Abdomen APon 07-25-2024 EXAM: XR ABDOMEN AP 1 VW CLINICAL INFORMATION: follow up small bowel distension. COMPARISON: 07/24/2024 FINDINGS: There remains air-filled dilated small bowel loops, though improved since 07/24/2024. There is no evidence of pneumatosis or free air. The tip of the gastric tube is in the stomach. IMPRESSION: 1. Persistent air-filled dilated small bowel loops, though improved since 07/24/2024. There is no evidence of pneumatosis or free air. 2. The tip of the gastric tube is in the stomach. 6 Finalized by Segundo Fontanez MD on 07/25/2024 3:27 PM Segundo Ramon MD - 07/25/2024 EXAM: XR ABDOMEN AP 1 VW CLINICAL INFORMATION: follow up small bowel distension. COMPARISON: 07/24/2024 FINDINGS: There remains air-filled dilated small bowel loops, though improved since 07/24/2024. There is no evidence of pneumatosis or free air. The tip of the gastric tube is in the stomach. IMPRESSION: 1. Persistent air-filled dilated small bowel loops, though improved since 07/24/2024. There is no evidence of pneumatosis or free air. 2. The tip of the gastric tube is in the stomach. 6 Finalized by Segundo Fontanez MD on 07/25/2024 3:27 PM [facility] Radiology Study observation (narrative) [facility] XR Abdomen APOrdered By: Segundo Fontanez on 07-25-2024 [facility] Work Phone: Basic Metabolic Panelon 07-07 Anion gap [Moles/Vol] 9 mmol/L 5 - 15 mmol/L [facility] Calcium [Mass/Vol] 8.4 mg/dL Low 8.5 - 10.5 mg/dL [facility] Chloride [Moles/Vol] 104 mmol/L 98 - 109 mmol/L [facility] CO2 [Moles/Vol] 22 mmol/L 22 - 32 mmol/L [facility] Creatinine [Mass/Vol] 0.9 mg/dL 0.60 - 1.30 mg/dL [facility] Comment on above: METHOD TRACEABLE TO [facility] STANDARD eGFR (CKD-EPI)non-race dependent - PINF [facility] Comment on above: Reported eGFR is based on the CKD-EPI 2020 equation that does not use a race coefficient. Glucose [Mass/Vol] 218 mg/dL High 65 - 99 mg/dL [facility] Potassium [Moles/Vol] 4.2 mmol/L 3.5 - 5.0 mmol/L [facility] Sodium [Moles/Vol] 135 mmol/L 134 - 146 mmol/L [facility] Urea nitrogen [Mass/Vol] 24 mg/dL 5 - 27 mg/dL [facility] CBC without diffon Erythrocyte distribution width (RBC) [Ratio] 16.9 % High 11.5 - 15.0 % [facility] Hematocrit (Bld) [Volume fraction] 52.1 % High 39 - 49 % [facility] Hemoglobin (Bld) [Mass/Vol] 17.5 g/dL High 13.0 - 17.0 g/dL [facility] Interpretation and review of laboratory results Abnormal [facility] MCH (RBC) [Entitic mass] 26.4 pg Low 27 - 34 pg [facility] MCHC (RBC) [Mass/Vol] 33.6 g/dL 32 - 36 g/dL [facility] MCV (RBC) [Entitic vol] 79 fL Low 80 - 100 fL [facility] Platelet mean volume (Bld) [Entitic vol] 8.9 fL 7 - 12 fL [facility] Platelets (Bld) [#/Vol] 158 10*3/uL [facility] RBC (Bld) [#/Vol] 6.62 10*6/uL High [facility] WBC corrected for nucl RBC Auto (Bld) [#/Vol] 16.3 High [facility] ECG 12 leadon 07-24-2024 TRACEMASTERVUE [facility] Glucose Glucometer (BldC) [M ass/Vol]on 07-24-2024 Glucose [Mass/Vol] 151 mg/dL High 65 - 99 mg/dL [facility] Interpretation and review of laboratory results Abnormal [facility] Glucose [Mass/Vol] 202 mg/dL High 65 - 99 mg/dL [facility] Interpretation and review of laboratory results Abnormal [facility] Lipaseon 07-24-2024 Lipase [Catalytic activity/Vol] 10 U/L Low 11 - 82 U/L [facility] Liver panelon 07-24-2024 Albumin [Mass/Vol] 3.8 g/dL 3.2 - 5.3 g/dL Pr [facility] ALP [Catalytic activity/Vol] 51 U/L 39 - 130 U/L [facility] ALT No additional P-5'-P [Catalytic activity/Vol] 14 U/L 0 - 40 U/L [facility] AST [Catalytic activity/Vol] 26 U/L 0 - 41 U/L [facility] Bilirubin [Mass/Vol] 1.2 mg/dL 0.3 - 1.2 mg/dL [facility] Bilirubin.direct [Mass/Vol] 0.2 mg/dL 0.0 - 0.4 mg/dL [facility] Protein [Mass/Vol] 6.6 g/dL 6.0 - 8.0 g/dL Pr [facility] Magnesiumon 07-24-2024 Magnesium [Mass/Vol] 2.3 mg/dL 1.8 - 2.6 mg/dL [facility] Magnesium [Mass/Vol] 1.6 mg/dL Low 1.8 - 2.6 mg/dL [facility] Magnesium [Mass/Vol]on 07-24 [facility] No Panel Informationon 07-24 Interpretation and review of laboratory results Abnormal [facility] Phosphoruson 07-24-2024 Phosphate [Mass/Vol] 3 mg/dL 2.4 - 4.9 mg/dL [facility] XR Abdomen APon 07-24-2024 Abdomen single view Clinical history:SBO abdominal pain bowel obstruction Comparison: None. Findings: AP supine view of the abdomen. Gas-filled dilated bowel loops are seen suggestive of evolving small bowel obstruction. Enteric catheter tip in the region of the gastric fundus. Residual contrast in the urinary bladder. Impression: Gas-filled dilated small bowel loops concerning for evolving small bowel obstruction. 7 Finalized by Mayito Gonzalez MD on 07/24/2024 2:21 PM Mayito Morgan MD - 07/24/2024 Abdomen single view Clinical history:SBO abdominal pain bowel obstruction Comparison: None. Findings: AP supine view of the abdomen. Gas-filled dilated bowel loops are seen suggestive of evolving small bowel obstruction. Enteric catheter tip in the region of the gastric fundus. Residual contrast in the urinary bladder. Impression: Gas-filled dilated small bowel loops concerning for evolving small bowel obstruction. 7 Finalized by Mayito Gonzalez MD on 07/24/2024 2:21 PM [facility] Radiology Study observation (narrative) [facility] XR Abdomen APOrdered By: Nadir Gonzalez on 07-24-2024 [employer] Work Phone: Ambulatory Visit Summaryon 1 Ambulatory Visit Summary Ambulatory Visit Summary SUNNYJOHNATHAN CLAY Chelsy :1960 Visit Date:06/14/2024 Ambulatory Visit Instructions Your [...] AM EDT With: Where: [facility] [place] [id number]- Wednesday 8:00 AM EST With: Where: [facility] [address] [place] [address]- Wednesday 8:00 AM EST With: Where: [facility] [address] [place] [address]- Wednesday 8:00 AM EST With: Where: [facility] [address] [place] [address]- Wednesday 10:00 AM EST With: Lety Gonzalez MD Where: [facility] [address] [place] [address]- Wednesday 9:45 AM EST With: Lety Gonzalez MD Where: [facility] [address] [place] [address]- Medications What How Much When Why Instructions [...] for choosing us for your care. Normal [facility] Ambulatory Visit Summaryon 0 05-31-2024 Ambulatory Visit Summary Ambulatory Visit Summary JOHNATHAN CORREA :1960 Visit Date:05/31/2024 Ambulatory Visit Instructions Your [...] AM EDT With: Where: [facility] [address] [place] [address]- Wednesday 8:00 AM EDT With: Where: [facility] [address] [place] [address]- Wednesday 8:00 AM EST With: Where: [facility] [address] [address]- Wednesday 10:00 AM EST With: Carlos LIZAMA, Lety Scott Where: [facility] [address] [address]- Medications What How Much When Why Instructions [...] for choosing us for your care. Normal [facility] Ambulatory Visit Summaryon 0 05-02-2024 Ambulatory Visit Summary Ambulatory Visit Summary JOHNATHAN CORREA :1960 Visit Date:05/02/2024 Ambulatory Visit Instructions Your [...] AM EDT With: Where: [facility] [address] [place] [address]- Wednesday 10:00 AM EST With: Carlos LIZAMA, Lety Scott Where: [facility] [address] [place] [address]- Medications What How Much When Why Instructions [...] for choosing us for your care. Normal [facility] No Panel Informationon 05-01 Bedside Glucose 236 [facility] Ambulatory Visit Summaryon 0 04-05-2024 Ambulatory Visit Summary Ambulatory Visit Summary JOHNATHAN CORREA :1960 Visit Date:04/05/2024 Ambulatory Visit Instructions Your [...] AM EDT With: Where: [facility] [address] [address]- Wednesday 10:00 AM EST With: Lety Gonzalez MD Where: [facility] [address] [address]- Medications What How Much When Why Instructions [...] you for choosing us for your care. [facility] Ambulatory Visit Summaryon 0 03-08-2024 Ambulatory Visit Summary Ambulatory Visit Summary JOHNATHAN CORREA :1960 Visit Date:03/08/2024 Ambulatory Visit Instructions Your [...] AM EDT With: Where: [facility] Invalid Interpretation Code [address] [place] [address]- \.br\ Wednesday 10:00 AM EST \.br\ With: Carlos LIZAMA, Lety Scott\.br\ Where: [facility] Ambulatory Visit Summary Ambulatory Visit Summary JOHNATHAN CORREA :1960 Visit Date:03/08/2024 Ambulatory Visit Instructions Your [...] AM EDT With: Where: [facility] Invalid Interpretation Code [address] [place] [address]- \.br\ Wednesday 10:00 AM EST \.br\ With: Lety Gonzalez MD\.br\ Where: [facility] Reminderson 03-08-2024 Reminders Reminders -- From: Amelia Winslow To: PAO - Juan Gonzalez; Sent: 09/15/2023 08:41:01 EST Show up: 02/14/2024 09:40:00 EDT Subject: PSA, Hct, and T level Reminder Message Please Remember to:_have pt get PSA, T level, and Hct done prior to appt. Internal lab orders in place. Pt seen 03/08/24 w/ new labs. Normal [facility] Urology Office/Clinic Noteon 03-08-2024 Urology Office/Clinic [...] Information Carlos LIZAMA, Lety Scott, URL, [facility] [address], [place] [address]- [phone] Additional Instructions: 6 mos w/ T level [...] No. Yes, (more content not included)... [facility] Comment on above: Result Comment: Elec tronically Signed By: Carlos ILZAMA, Lety Scott\.br\Date and Time Signed: 03/08/24 09:15 EDT\.br\Electronically Co-Signed By: Amelia Winslow\.br\Date and Time Co-Signed: 03/08/24 08:46 EDT Testost Totalon 03-03-2024 Testosterone [Mass/Vol] 547 ng/dL Invalid Interpretation Code [id number] [facility] Comment on above: Result Comment: Adul t male reference interval is based on a population of healthy nonobese males (BMI <30) between 19 and 39 years old. irina Lester.al. JCEM 2017,102;7187-2815. PMID: [id number]. Performed at: [facility] [address] [id number] PhD Arianne Fonseca Performed By: #### 2 [id number] #### [facility] [address] [place] [address] [id number] 03-02-2024 HbA1c (Bld) [Mass fraction] 8.5 % High <=5.9 [facility] Comment on above: Performed By: #### 7 [id number] #### [facility] [address] [place] [id number] TSH With T4fr Reflexon 03-02 TSH Qn 1.67 m[IU]/L Normal 0.34-5.60 [facility] Comment on above: Performed By: #### 1 [id number] #### [facility] [address] [place] [address] BMPOrdered By: SYSTEM SYSTEM on 03-01-2024 Anion gap [Moles/Vol] 11 mmol/L 6-16 [facility] Comment on above: Performed By: #### 2 [id number] #### [facility] [address] [place] [address] Calcium [Mass/Vol] 9.3 mg/dL 8.9-11.1 [facility] Comment on above: Performed By: #### 2 [id number] #### [facility] [address] [place] [address] Chloride [Moles/Vol] 95 mmol/L Low 101-111 [facility] Comment on above: Performed By: #### 2 [id number] #### [facility] [address] [place] [address] CO2 [Moles/Vol] 29 mmol/L 21-31 [facility] Comment on above: Performed By: #### 2 [id number] #### [facility] [address] [place] [address] Creatinine [Mass/Vol] 1.3 mg/dL 0.5-1.3 [facility] Comment on above: Performed By: #### 2 [id number] #### [facility] [address] [place] [address] Glucose [Mass/Vol] 229 mg/dL High 55-199 [facility] Comment on above: Performed By: #### 2 [id number] #### [facility] [address] [place] [address] Potassium [Moles/Vol] 5.3 mmol/L 3.5-5.3 [facility] Comment on above: Performed By: #### 2 [id number] #### [facility] [address] [place] [address] Sodium [Moles/Vol] 130 mmol/L Low 135-145 [facility] Comment on above: Performed By: #### 2 [id number] #### [facility] [address] [place] [address] Urea nitrogen [Mass/Vol] 20 mg/dL 5-21 [facility] Comment on above: Performed By: #### 2 [id number] #### [facility] [address] [place] [address] BMPon 03-01-2024 Urea nitrogen/Creatinine [Mass ratio] 15 No Units Normal 10-20 [facility] Comment on above: Performed By: #### 2 [id number] #### [facility] [address] [place] [address] CBC w/ Auto DiffOrdered By: SYSTEM SYSTEM on 03-01-2024 Basophils/100 WBC (Bld) 0.7 % Normal 0.0-2.0 [facility] Comment on above: Performed By: #### 2 [id number] #### [facility] [address] [place] [address] Basophils/Leukocyte s Auto (Bld) [Pure # fraction] 0.1 E9/L Normal 0.0-0.2 [facility] Comment on above: Performed By: #### 2 [id number] #### [facility] [address] [place] [address] Eosinophils (Bld) [#/Vol] 0.3 E9/L Normal 0.0-0.5 [facility] Comment on above: Performed By: #### 2 [id number] #### [facility] [address] [place] [address] Eosinophils/100 WBC (Bld) 3.7 % Normal 0.0-8.0 [facility] Comment on above: Performed By: #### 2 [id number] #### [facility] [address] [place] [address] Erythrocyte distribution width (RBC) [Ratio] 16.7 % High 10.9-14.2 [facility] Comment on above: Performed By: #### 2 [id number] #### [facility] [address] [place] [address] Hematocrit (Bld) [Volume fraction] 48.4 % Normal 37.7-49.0 [facility] Comment on above: Performed By: #### 2 [id number] #### [facility] [address] [place] [address] Hemoglobin (Bld) [Mass/Vol] 16.1 g/dL Normal 13.5-17.5 [facility] Comment on above: Performed By: #### 2 [id number] #### [facility] [address] [place] [address] Lymphocytes (Bld) [#/Vol] 1.3 E9/L Normal 1.0-4.0 [facility] Comment on above: Performed By: #### 2 [id number] #### [facility] [address] [place] [address] Lymphocytes/100 WBC (Bld) 15.4 % Normal 14.0-50.0 [facility] Comment on above: Performed By: #### 2 [id number] #### [facility] [address] [place] [address] MCH (RBC) [Entitic mass] 26.6 pg Low 27.0-34.0 [facility] Comment on above: Performed By: #### 2 [id number] #### [facility] [address] [place] [address] MCHC (RBC) [Mass/Vol] 33.3 g/dL Normal 31.4-36.0 [facility] Comment on above: Performed By: #### 2 [id number] #### [facility] [address] [place] [address] MCV (RBC) [Entitic vol] 79.9 fL Low 80.0-100.0 [facility] Comment on above: Performed By: #### 2 [id number] #### [facility] [address] [place] [address] Monocytes (Bld) [#/Vol] 0.6 E9/L Normal 0.2-1.0 [facility] Comment on above: Performed By: #### 2 [id number] #### [facility] [address] [place] [address] Neutrophils (Bld) [#/Vol] 6.3 E9/L Normal 2.0-7.5 [facility] Comment on above: Performed By: #### 2 [id number] #### [facility] [address] [place] [address] Neutrophils/100 WBC (Bld) 73.2 % Normal 36.0-75.0 [facility] Comment on above: Performed By: #### 2 [id number] #### [facility] [address] [place] [address] Platelet mean volume (Bld) [Entitic vol] 10.0 fL Normal 6.4-10.8 [facility] Comment on above: Performed By: #### 2 [id number] #### [facility] [address] [place] [address] Platelets (Bld) [#/Vol] 201.0 E9/L Normal 150.0-500.0 [facility] Comment on above: Performed By: #### 2 [id number] #### [facility] [address] [place] [address] RBC (Bld) [#/Vol] 6.1 E12/L High 4.3-5.9 [facility] Comment on above: Performed By: #### 2 [id number] #### [facility] [address] [place] [address] WBC corrected for nucl RBC Auto (Bld) [#/Vol] 8.6 E9/L Normal 4.0-11.0 [facility] Comment on above: Performed By: #### 2 [id number] #### [facility] [address] [place] [address] CHEMISTRYOrdered By: SYSTEM SYSTEM on 03-01-2024 Urea nitrogen/Creatinine [Mass ratio] 15 mg/mg Normal 10 - 20 [facility] Estimated glomerular filtrat ion rate (GFR) non- Americanon 03-01-2024 GFR/1.73 sq M.predicted among non-blacks MDRD (S/P/Bld) [Vol rate/Area] 62 mL/min/1.73 m2 >=59 [facility] HEMATOLOGYOrdered By: SYSTEM SYSTEM on 03-01-2024 Monocytes/100 WBC (Bld) 7.0 % Normal 4.0 - 14.0 % [facility] - Chemistry and C hemistry - challengeon 03-01-2024 TSH Qn 1.67 m[IU]/L 0.34-5.60 [facility] - Hematology and Cell countson 03-01-2024 HbA1c (Bld) [Mass fraction] 8.5 % High <=5.9 [facility] No Panel Informationon 03-01 BUN/Creatinine Ratio 15 No Units 10-20 [facility] PSA Screen, TotalOrdered By: SYSTEM SYSTEM on 03-01-2024 Prostate specific Ag [Mass/Vol] 0.8 ng/mL Normal 0.1-3.5 [facility] Comment on above: Interpretive Data: T he concentration of PSA determined by different manufacturers can vary due to differences in assay methods and reagent specificity. Values obtained from different assay methods cannot be used interchangeably. The methodology used for this result was chemiluminescence using [employer]'s Access Hybritech PSA reagent. Result Comment: The concentration of PSA determined by different manufacturers can vary due to differences in assay methods and reagent specificity. Values obtained from different assay methods cannot be used interchangeably. The methodology used for this result was chemiluminescence using [employer]'s Access Hybritech PSA reagent. Performed By: #### 1 [id number] #### [facility] [address] [place] [address] Physician Orderon 03-01-2024 Physician Order [id number] Normal [facility] eGFROrdered By: SYSTEM Gravie on 03-01-2024 eGFR 62 mL/min/1.73 m2 Normal >=59 [facility] Comment on above: Order Comment: Order added by Discern Expert. Performed By: #### 1 [id number] #### [facility] [address] [place] [address] Ambulatory Visit Summaryon 0 02-09-2024 Ambulatory Visit Summary JOHNATHAN CORREA :1960 Visit Date:02/09/2024 Ambulatory Visit Instructions Your Diagnosis Hypogonadism male Your Care Team Attending Physician - JEMIMA MARQUEZ PA-C Primary Care Physician - LUIS [...] AM EDT With: Where: [facility] Normal [address] [place] [address] [place] [address]- \.br\ Medications\.br\ What How Much When Why Instructions\.br \ Unchanged amlodipine (amLODIPine 5 mg Tab) By [...] 20mg within 24 hours. \.br\ Unchanged testosterone (Depo-Testostero ne 200 mg/ mL intramuscular solution) 200 Milligram Intramuscular Every other week Hypogonadism male ED (erectile dysfunction)\.br \ Medications and Immunizations Administered\.br \ Given\.br\ Depo-Testosteron e 200 mg/mL intramuscular solution, 200 mg, IntraMuscular. For: Hypogonadism male\.br\ Allergies\.br\ metFORMIN (Stomach cramps, Diarrhea)\.br\ Problems\.br\ Ongoing - Any problem that you are currently receiving treatment for.\.br\ Asymptomatic microscopic hematuria\.br\ BPH without urinary obstruction\.br\ ED (erectile dysfunction)\.br \ Former smoker\.br\ Groin pain\.br\ Hypogonadism male\.br\ Low testosterone\.br \ Nocturia\.br\ Patient Survey\.br\ You may receive a survey via text or e-mail asking about your office visit. Please share your experience with us by completing your survey. We appreciate your feedback and thank you for choosing us for your care.\.br\ \.br\ [facility] Ambulatory Visit Summaryon 0 01-25-2024 Ambulatory Visit Summary JOHNATHAN CORREA :1960 Visit Date:01/25/2024 Ambulatory Visit Instructions Your Diagnosis ED (erectile dysfunction) Hypogonadism male Your Care Team Attending Physician - JEMIMA MARQUEZ PA-C Primary Care Physician - LUIS [...] AM EDT With: Where: [facility] Normal [address] [place] [address]- \.br\ Medications\.br\ What How Much When Why Instructions\.br \ Unchanged amlodipine (amLODIPine 5 mg Tab) By [...] 20mg within 24 hours. \.br\ Unchanged testosterone (Depo-Testostero ne 200 mg/ mL intramuscular solution) 200 Milligram Intramuscular Every other week Hypogonadism male ED (erectile dysfunction) Pickup at [facility] #[id number]\.br\ Pharmacy Information\.br\ [facility]/pharmacy #[id number]: [address] [place], [place] [id number] [phone]\.br\ Medications and Immunizations Administered\.br \ Given\.br\ Depo-Testosteron e 200 mg/mL intramuscular solution, 100 mg, IntraMuscular\.b r\ Allergies\.br\ metFORMIN (Stomach cramps, Diarrhea)\.br\ Problems\.br\ Ongoing - Any problem that you are currently receiving treatment for.\.br\ Asymptomatic microscopic hematuria\.br\ BPH without urinary obstruction\.br\ ED (erectile dysfunction)\.br \ Former smoker\.br\ Groin pain\.br\ Hypogonadism male\.br\ Low testosterone\.br \ Nocturia\.br\ Patient Survey\.br\ You may receive a survey via text or e-mail asking about your office visit. Please share your experience with us by completing your survey. We appreciate your feedback and thank you for choosing us for your care.\.br\ \.br\ [facility] Ambulatory Visit Summaryon 0 01-11-2024 Ambulatory Visit Summary JOHNATHAN CORREA :1960 Visit Date:01/11/2024 Ambulatory Visit Instructions Your Diagnosis Hypogonadism male Your Care Team Attending Physician - JIMMY GRIFFITH, JEMIMA Blakely Primary Care Physician - LUIS JEFFREY [...] AM EDT With: Where: [facility] Normal [address] [facility] [place] [address]- \.br\ Medications\.br\ What How Much When Why Instructions\.br \ Unchanged amlodipine (amLODIPine 5 mg Tab) By [...] 20mg within 24 hours. \.br\ Unchanged testosterone (Depo-Testostero ne 200 mg/ mL intramuscular solution) 200 Milligram Intramuscular Every other week Hypogonadism male ED (erectile dysfunction)\.br \ Medications and Immunizations Administered\.br \ Given\.br\ Depo-Testosteron e 200 mg/mL intramuscular solution, 200 mg, IntraMuscular. For: Hypogonadism male\.br\ Allergies\.br\ metFORMIN (Stomach cramps, Diarrhea)\.br\ Problems\.br\ Ongoing - Any problem that you are currently receiving treatment for.\.br\ Asymptomatic microscopic hematuria\.br\ BPH without urinary obstruction\.br\ ED (erectile dysfunction)\.br \ Former smoker\.br\ Groin pain\.br\ Hypogonadism male\.br\ Low testosterone\.br \ Nocturia\.br\ Patient Survey\.br\ You may receive a survey via text or e-mail asking about your office visit. Please share your experience with us by completing your survey. We appreciate your feedback and thank you for choosing us for your care.\.br\ \.br\ [facility] Ambulatory Visit Summaryon 0 12-28-2023 Ambulatory Visit Summary JOHNATHAN CORREA :1960 Visit Date:12/28/2023 Ambulatory Visit Instructions Your Diagnosis Hypogonadism male Your Care Team Attending Physician - JIMMY GRIFFITH, JEMIMA Blakely Primary Care Physician - LUIS JEFFREY [...] AM EDT With: Where: [facility] [address] [place] [id number] \.br\ Medications\.br\ What How Much When Why Instructions\.br \ Unchanged amlodipine (amLODIPine 5 mg Tab) By [...] 20mg within 24 hours. \.br\ Unchanged testosterone (Depo-Testostero ne 200 mg/ mL intramuscular solution) 200 Milligram Intramuscular Every other week Hypogonadism male ED (erectile dysfunction)\.br \ Allergies\.br\ metFORMIN (Stomach cramps, Diarrhea)\.br\ Problems\.br\ Ongoing - Any problem that you are currently receiving treatment for.\.br\ Asymptomatic microscopic hematuria\.br\ BPH without urinary obstruction\.br\ ED (erectile dysfunction)\.br \ Former smoker\.br\ Groin pain\.br\ Hypogonadism male\.br\ Low testosterone\.br \ Nocturia\.br\ Patient Survey\.br\ You may receive a survey via text or e-mail asking about your office visit. Please share your experience with us by completing your survey. We appreciate your feedback and thank you for choosing us for your care.\.br\ \.br\ [facility] Ambulatory Visit Summaryon 0 12-14-2023 Ambulatory Visit Summary JOHNATHAN CORREA :1960 Visit Date:12/14/2023 Ambulatory Visit Instructions Your Diagnosis Hypogonadism male Your Care Team Attending Physician - JEMIMA MARQUEZ PA-C Primary Care Physician - LUIS [...] AM EDT With: Where: [facility] Normal [address] [place] [address] [place] [address]- \.br\ Medications\.br\ What How Much When Why Instructions\.br \ Unchanged amlodipine (amLODIPine 5 mg Tab) By [...] 20mg within 24 hours. \.br\ Unchanged testosterone (Depo-Testostero ne 200 mg/ mL intramuscular solution) 200 Milligram Intramuscular Every other week Hypogonadism male ED (erectile dysfunction)\.br \ Medications and Immunizations Administered\.br \ Given\.br\ Depo-Testosteron e 200 mg/mL intramuscular solution, 200 mg, IntraMuscular. For: Hypogonadism male\.br\ Allergies\.br\ metFORMIN (Stomach cramps, Diarrhea)\.br\ Problems\.br\ Ongoing - Any problem that you are currently receiving treatment for.\.br\ Asymptomatic microscopic hematuria\.br\ BPH without urinary obstruction\.br\ ED (erectile dysfunction)\.br \ Former smoker\.br\ Groin pain\.br\ Hypogonadism male\.br\ Low testosterone\.br \ Nocturia\.br\ Patient Survey\.br\ You may receive a survey via text or e-mail asking about your office visit. Please share your experience with us by completing your survey. We appreciate your feedback and thank you for choosing us for your care.\.br\ \.br\ [facility] Basophils Auto (Bld) [#/Vol] on 12-01-2023 Basophils (Bld) [#/Vol] 0.1 10 3/uL 0.0-0.1 [facility] Basophils/100 WBC Auto (Bld) on 12-01-2023 Basophils/100 WBC (Bld) 0.8 % 0.2-2.0 [facility] Cholesterol in LDL Calc [Mas s/Vol]on 12-01-2023 Cholesterol in LDL [Mass/Vol] 69.0 mg/dL [facility] Comment on above: <100 mg/dl [id number] 0-129 mg/dl NEAR OR ABOVE [id number] mg/dl BORDERLINE [id number] mg/dl HIGH>190 mg/dl VERY HIGH Cholesterol in VLDL Calc [Ma ss/Vol]on 12-01-2023 Cholesterol in VLDL [Mass/Vol] 15.2 mg/dL [facility] Eosinophils/100 WBC Auto (Bl d)on 12-01-2023 Eosinophils/100 WBC (Bld) 5.6 % 0.9-7.0 [facility] Erythrocyte distribution wid th Auto (RBC) [Ratio]on 12-01-2023 Erythrocyte distribution width (RBC) [Ratio] 15.8 % 11.0-15.0 [facility] Estimated glomerular filtrat ion rate (GFR) non- Americanon 12-01-2023 GFR/1.73 sq M.predicted among non-blacks MDRD (S/P/Bld) [Vol rate/Area] mL/min/{1.73_m2} >=60 [facility] Globulin Calc (S) [Mass/Vol] on 12-01-2023 Globulin (S) [Mass/Vol] 3.5 g/dL [facility] Glucose mean value [Mass/vol ume] in Blood Estimated from glycated hemoglobinon 12-01-2023 Average glucose Estimated from glycated hemoglobin (Bld) [Mass/Vol] 209 mg/dL [facility] Hematocrit Auto (Bld) [Volum e fraction]on 12-01-2023 Hematocrit (Bld) [Volume fraction] 47.7 % 42.0-54.0 [facility] Hemoglobin [Mass/volume] in Bloodon 12-01-2023 Hemoglobin (Bld) [Mass/Vol] 15.7 g/dL 14.0-18.0 [facility] Laboratory - Chemistry and C hemistry - challengeon 12-01-2023 Albumin [Mass/Vol] 3.7 g/dL 3.4-5.0 [facility] ALP [Catalytic activity/Vol] 67 U/L 46-116 [facility] ALT [Catalytic activity/Vol] 24 U/L 16-63 [facility] AST [Catalytic activity/Vol] 28 U/L 15-37 [facility] Bilirubin [Mass/Vol] 0.9 mg/dL 0.2-1.0 [facility] Calcium [Mass/Vol] 8.7 mg/dL 8.5-10.1 [facility] Chloride [Moles/Vol] 101 mmol/L 98-107 [facility] Cholesterol [Mass/Vol] 120 mg/dL <=200 [facility] Cholesterol in HDL [Mass/Vol] 36 mg/dL 40-60 [facility] Comment on above: > or =60 mg/dl - LOW CARDIOVASCULAR RISK<40 mg/dl - HIGH CARDIOVASCULAR RISK CO2 [Moles/Vol] 28.9 mmol/L 21.0-32.0 [facility] Creatinine [Mass/Vol] 1.19 mg/dL 0.70-1.30 [facility] GFR/1.73 sq M.predicted MDRD (S/P/Bld) [Vol rate/Area] mL/min/{1.73_m2} >=60 [facility] Glucose [Mass/Vol] 152 mg/dL 74-106 [facility] Potassium [Moles/Vol] 4.5 mmol/L 3.5-5.1 [facility] Protein [Mass/Vol] 7.2 g/dL 6.4-8.2 [facility] Sodium [Moles/Vol] 138 mmol/L 136-145 [facility] Triglyceride [Mass/Vol] 76 mg/dL <=150 [facility] Urea nitrogen [Mass/Vol] 23.0 mg/dL 7.0-18.0 [facility] Urea nitrogen/Creatinine [Mass ratio] 19.3 mg/mg [facility] Laboratory - Hematology and Cell countson 12-01-2023 HbA1c (Bld) [Mass fraction] 8.9 % 4.5-6.2 [facility] Comment on above: ADA RECOMMENDED LIMI T 4.0 - 6.0ADA THERAPEUTIC TARGET < 7.0ACTION SUGGESTED> 7.0 Immature granulocytes/100 WBC (Bld) 0.2 % 0.0-0.5 [facility] Leukocytes [#/volume] correc rosalinda for nucleated erythrocytes in Blood by Automated counon 12-01-2023 WBC corrected for nucl RBC Auto (Bld) [#/Vol] 8.5 10 3/uL 4.0-11.0 [facility] Lymphocytes Auto (Bld) [#/Vo l]on 12-01-2023 Lymphocytes (Bld) [#/Vol] 1.6 10 3/uL 1.2-3.8 [facility] Lymphocytes/100 WBC Auto (Bl d)on 12-01-2023 Lymphocytes/100 WBC (Bld) 19.2 % 20.5-60.0 [facility] MCH Auto (RBC) [Entitic mass ]on 12-01-2023 MCH (RBC) [Entitic mass] 26.2 pg 25.9-34.0 [facility] MCHC Auto (RBC) [Mass/Vol]on 12-01-2023 MCHC (RBC) [Mass/Vol] 32.9 g/dL 29.9-35.2 [facility] MCV Auto (RBC) [Entitic vol] on 12-01-2023 MCV (RBC) [Entitic vol] 79.6 fL 80.0-94.0 [facility] Monocytes Auto (Bld) [#/Vol] on 12-01-2023 Monocytes (Bld) [#/Vol] 0.7 10 3/uL 0.3-0.8 [facility] Monocytes/100 WBC Auto (Bld) on 12-01-2023 Monocytes/100 WBC (Bld) 7.6 % 1.7-12.0 [facility] Neutrophils Auto (Bld) [#/Vo l]on 12-01-2023 Neutrophils (Bld) [#/Vol] 5.7 10 3/uL 1.4-6.5 [facility] Neutrophils/100 WBC Auto (Bl d)on 12-01-2023 Neutrophils/100 WBC (Bld) 66.6 % 43.0-75.0 [facility] No Panel Informationon 11-30 Eosinophils # (Auto) 0.5 10 3/uL 0.0-0.7 [facility] Immature Granulocyte # (Auto) 0.02 10 3/uL 0.00-0.03 [facility] Prostate Specific Antigen Screen 1.21 ng/mL <=4.00 [facility] Platelet mean volume Auto (B ld) [Entitic vol]on 12-01-2023 Platelet mean volume (Bld) [Entitic vol] 11.1 fL 9.5-13.5 [facility] Platelets Auto (Bld) [#/Vol] on 12-01-2023 Platelets (Bld) [#/Vol] 216 10 3/uL 150-450 [facility] RBC Auto (Bld) [#/Vol]on RBC (Bld) [#/Vol] 5.99 10 6/uL 4.70-6.10 [facility] Serum or plasma albumin/glob ulin mass ratioon 12-01-2023 Albumin/Globulin [Mass ratio] 1.1 {ratio} [facility] Serum or plasma anion gap de terminationon 12-01-2023 Anion gap [Moles/Vol] 12.6 mmol/L [facility] Serum or plasma total choles terol/high density lipoprotein (HDL) cholesterol mass aydin 12-01-2023 Cholesterol.total/C holesterol in HDL [Mass ratio] 3.3 {ratio} [facility] Comment on above: 3.3 - 4.4 LOW RISK4. 4 - 7.1 AVERAGE RISK7.1 - 11.0 MODERATE RISK>11.0 HIGH RISK Ambulatory Visit Summaryon 0 11-30-2023 Ambulatory Visit Summary JOHNATHAN CORREA :1960 Visit Date:11/30/2023 Ambulatory Visit Instructions Your Diagnosis Hypogonadism male Your Care Team Attending Physician - JIMMY GRIFFITH, JEMIMA Blakely Primary Care Physician - LUIS JEFFREY [...] AM EDT With: Where: [facility] Normal [address] [place] [address]- \.br\ Medications\.br\ What How Much When Why Instructions\.br \ Unchanged amlodipine (amLODIPine 5 mg Tab) By [...] 20mg within 24 hours. \.br\ Unchanged testosterone (Depo-Testostero ne 200 mg/ mL intramuscular solution) 200 Milligram Intramuscular Every other week Hypogonadism male ED (erectile dysfunction)\.br \ Medications and Immunizations Administered\.br \ Given\.br\ Depo-Testosteron e 200 mg/mL intramuscular solution, 200 mg, IntraMuscular. For: Hypogonadism male\.br\ Allergies\.br\ metFORMIN (Stomach cramps, Diarrhea)\.br\ Problems\.br\ Ongoing - Any problem that you are currently receiving treatment for.\.br\ Asymptomatic microscopic hematuria\.br\ BPH without urinary obstruction\.br\ ED (erectile dysfunction)\.br \ Former smoker\.br\ Groin pain\.br\ Hypogonadism male\.br\ Low testosterone\.br \ Nocturia\.br\ Patient Survey\.br\ You may receive a survey via text or e-mail asking about your office visit. Please share your experience with us by completing your survey. We appreciate your feedback and thank you for choosing us for your care.\.br\ \.br\ [facility] Ambulatory Visit Summaryon 0 11-16-2023 Ambulatory Visit Summary JOHNATHAN CORREA :1960 Visit Date:11/16/2023 Ambulatory Visit Instructions Your [...] AM EDT With: Where: [facility] Normal [address] [place] [address] [place] [address]- \.br\ Medications\.br\ What How Much When Why Instructions\.br \ Unchanged amlodipine (amLODIPine 5 mg Tab) By [...] 20mg within 24 hours. \.br\ Unchanged testosterone (Depo-Testostero ne 200 mg/ mL intramuscular solution) 200 Milligram Intramuscular Every other week Hypogonadism male ED (erectile dysfunction)\.br \ Medications and Immunizations Administered\.br \ Given\.br\ Depo-Testosteron e 200 mg/mL intramuscular solution, 200 mg, IntraMuscular. For: Hypogonadism male\.br\ Allergies\.br\ metFORMIN (Stomach cramps, Diarrhea)\.br\ Problems\.br\ Ongoing - Any problem that you are currently receiving treatment for.\.br\ Asymptomatic microscopic hematuria\.br\ BPH without urinary obstruction\.br\ ED (erectile dysfunction)\.br \ Former smoker\.br\ Groin pain\.br\ Hypogonadism male\.br\ Low testosterone\.br \ Nocturia\.br\ Patient Survey\.br\ You may receive a survey via text or e-mail asking about your office visit. Please share your experience with us by completing your survey. We appreciate your feedback and thank you for choosing us for your care.\.br\ \.br\ [facility] Ambulatory Visit Summaryon 0 10-20-2023 Ambulatory Visit Summary JOHNATHAN CORREA :1960 Visit Date:10/20/2023 Ambulatory Visit Instructions Your [...] AM EST With: Where: [facility] Normal [address] [place] [address] [place] [address]- \.br\ Medications\.br\ What How Much When Why Instructions\.br \ Unchanged amlodipine (amLODIPine 5 mg Tab) By [...] 20mg within 24 hours. \.br\ Unchanged testosterone (Depo-Testostero ne 200 mg/ mL intramuscular solution) 200 Milligram Intramuscular Every other week Hypogonadism male ED (erectile dysfunction)\.br \ Medications and Immunizations Administered\.br \ Given\.br\ Depo-Testosteron e 200 mg/mL intramuscular solution, 200 mg, IntraMuscular. For: Hypogonadism male\.br\ Allergies\.br\ metFORMIN (Stomach cramps, Diarrhea)\.br\ Problems\.br\ Ongoing - Any problem that you are currently receiving treatment for.\.br\ Asymptomatic microscopic hematuria\.br\ BPH without urinary obstruction\.br\ ED (erectile dysfunction)\.br \ Former smoker\.br\ Groin pain\.br\ Hypogonadism male\.br\ Low testosterone\.br \ Nocturia\.br\ Patient Survey\.br\ You may receive a survey via text or e-mail asking about your office visit. Please share your experience with us by completing your survey. We appreciate your feedback and thank you for choosing us for your care.\.br\ \.br\ [facility] Ambulatory Visit Summaryon 0 09-29-2023 Ambulatory Visit Summary JOHNATHAN CORREA :1960 Visit Date:09/29/2023 Ambulatory Visit Instructions Your [...] LIZAMA, Lety Scott Where: [facility] Ambulatory Visit Summaryon 0 09-15-2023 Ambulatory Visit Summary JOHNATHAN CORREA :1960 Visit Date:09/15/2023 Ambulatory Visit Instructions Your Diagnosis Hypogonadism male ED (erectile dysfunction) BPH without urinary obstruction Tests Performed Urnls Dip Stick Auto w/o Microscopy POC [id number] Your Care Team Attending Physician - Carlos [...] AM EST With: Where: [facility] Normal [address] [place] [address] [place] [address]- \.br\ You Need to Schedule the Following Appointments\.br \ Follow Up with Carlos LIZAMA, Lety Scott, URL, URO When: \.br\ Comments:\.br\ 3 mos w/ PSA, T level, and HCT\.br\ Where:\.br\ [address]br\ [place] [address].br\ [phone]\.br\ You Need to Complete the Following\.br\ Hematocrit, [...] Location\.br\ Medications\.br\ What How Much When Why Instructions\.br \ Changed tadalafil (Cialis 20 mg Tab) 1 Tablets By Mouth As Directed as needed for for erectile dysfunction Take 1 tab 1 hour prior to intercourse. Do not exceed 20mg within 24 hours. Pickup at [facility]\.br\ Unchanged amlodipine (amLODIPine 5 mg Tab) [...] if questions or concerns \.br\ Unchanged testosterone (Depo-Testostero ne 200 mg/ mL intramuscular solution) 200 Milligram Intramuscular Every other week Hypogonadism male ED (erectile dysfunction) Contact prescribing physician if questions or concerns \.br\ Pharmacy Information\.br\ [facility]: [address] [place], [place] [id number] [phone]\.br\ Test Results\.br\ Urnls Dip Stick Auto w/o Microscopy POC 34424 (09/15/2023)\.br \ Bilirubin Urine Dipstick - Negative\.br\ Blood Urine Dipstick - Trace-intact\.br \ Glucose Urine Dipstick - 3+ 1000 mg/dl\.br\ Ketones Urine Dipstick - Negative\.br\ Leukocytes Urine Dipstick - Negative\.br\ Nitrite Urine Dipstick - Negative\.br\ Protein Urine Dipstick - Negative\.br\ Specific Elizabeth Urine Dipstick - 1.015\.br\ Urine Appearance Urine Dipstick - Clear\.br\ Urine Color Urine Dipstick - Yellow\.br\ Urobilinogen Urine Dipstick - Normal 0.2-1 EU/dl\.br\ pH Urine Dipstick - 5.5\.br\ Medications and Immunizations Administered\.br \ Given\.br\ Depo-Testosteron e 200 mg/mL intramuscular solution, 200 mg, IntraMuscular. For: Hypogonadism male\.br\ Not Given\.br\ influenza virus vaccine, inactivated, Patient Refuses\.br\ Allergies\.br\ metFORMIN (Stomach cramps, Diarrhea)\.br\ Problems\.br\ Ongoing - Any problem that you are currently receiving treatment for.\.br\ Asymptomatic microscopic hematuria\.br\ BPH without urinary obstruction\.br\ ED (erectile dysfunction)\.br \ Former smoker\.br\ Groin pain\.br\ Hypogonadism male\.br\ Low testosterone\.br \ Nocturia\.br\ Patient Survey\.br\ You may receive a [...] enough hardness of the erection to allow penetration.\.br \ ? \.br\ Loss of erection before sex is finished.\.br\ What are the causes?\.br\ This condition may be caused by:\.br\ ? \.br\ Physical causes, such as:\.br\ ? \.br\ Artery problems. This may include heart disease, high blood pressure, atherosclerosis, and diabetes.\.br\ ? \.br\ Hormonal problems, such as low testosterone.\.b r\ ? \.br\ Obesity.\.br\ ? \.br\ Nerve problems. This may include back or pelvic injuries, multiple sclerosis, Parkinson's disease, spinal cord injury, and stroke.\.br\ ? \.br\ Certain medicines, such as:\.br\ ? \.br\ Pain relievers.\.br\ ? \.br\ Antidepressants. \.br\ ? \.br\ Blood pressure medicines and water pills (diuretics).\.br \ ? \.br\ Cancer medicines.\.br\ ? \.br\ Antihistamines.\ .br\ ? \.br\ Muscle relaxants.\.br\ ? \.br\ Lifestyle factors, such as:\.br\ ? \.br\ Use of drugs such as marijuana, cocaine, or opioids.\.br\ ? \.br\ Excessive use of alcohol.\.br\ ? \.br\ Smoking.\.br\ ? \.br\ Lack of physical activity or exercise.\.br\ ? \.br\ Psychological causes, such as:\.br\ ? \.br\ Anxiety or stress.\.br\ ? \.br\ Sadness or depression.\.br\ ? \.br\ Exhaustion.\.br\ ? \.br\ Fear about sexual performance.\.br \ ? \.br\ Guilt.\.br\ What are the signs or symptoms?\.br\ Symptoms of this condition include:\.br\ ? \.br\ Inability to get an erection.\.br\ ? \.br\ Lack of enough hardness of the erection to allow penetration.\.br \ ? \.br\ Loss of the erection before sex is finished.\.br\ ? \.br\ Sometimes having normal erections, but with frequent unsatisfactory episodes.\.br\ ? \.br\ Low sexual satisfaction in either partner due to erection problems.\.br\ ? \.br\ A curved penis occurring with erection. The curve may cause pain, or the penis may be too curved to allow for intercourse.\.br \ ? \.br\ Never having nighttime or morning [...] Doing a sleep study at home to [facility] Patient Educationon 09-15-19 Patient Education Urology [...] these instructions at home: Medicines ? Take otao-fwa-lkpxwqb and prescription medicines only as told by [...] include cig (more content not included)... Normal [facility] Urology Office/Clinic Noteon 09-15-2023 Urology Office/Clinic Note [...] Cialis. Rx sent again to [facility] in [place]. Risks/benefits discussed. -Diet and exercise 3. BPH [...] Information Carlos LIZAMA, Lety Scott, URL, URO [address] [place] [phone] Additional Instructions: 3 mos w/ PSA, T [...] oral ta (more content not included)... Normal [facility] Comment on above: Result Comment: Elec tronically Signed By: Carlos LIZAMA, Lety Scott\.br\Date and Time Signed: 09/15/23 08:41 EST\.br\Electronically Co-Signed By: Amelia Winslow\.br\Date and Time Co-Signed: 09/15/23 08:37 EST Testost Totalon 09-10-2023 Testosterone [Mass/Vol] 478 ng/dL Invalid Interpretation Code [id number] [facility] Comment on above: Result Comment: Adul t male reference interval is based on a population of healthy nonobese males (BMI <30) between 19 and 39 years old. Talyer et.al. JCEM 2017,102;9720-7096. PMID: 95267039. Performed at: [facility] [id number] PhD Arianne Fonseca Performed By: #### [id number] ####[facility] [address] [place] [address] Ambulatory Visit Summaryon 0 09-09-2023 Ambulatory Visit Summary JOHNATHAN CORREA :1960 Visit Date:09/08/2023 Ambulatory Visit Instructions Your [...] Lety Gonzalez MD Where: [facility] Ambulatory Visit Summaryon 1 11-02-2022 Ambulatory Visit Summary JOHNATHAN CORREA :1960 Visit Date:09/01/2023 Ambulatory Visit Instructions Your [...] Lety Gonzalez MD Where: [facility] Ambulatory Visit Summaryon 10-04-2022 Ambulatory Visit Summary JOHNATHAN CORREA :1960 Visit Date:08/04/2023 Ambulatory Visit Instructions Your Diagnosis Hypogonadism male Your Care Team Attending Physician - Carlos LIZAMA, Lety Scott Primary Care Physician - WOJCIECH LIZAMA, LUSI This Is Your Medications List amlodipine (amLODIPine [...] AM EST With: Where: [facility] Normal [address] [place] [address]- \.br\ Medications\.br\ What How Much When Why Instructions\.br \ Unchanged amlodipine (amLODIPine 5 mg Tab) By [...] 20mg within 24 hours. \.br\ Unchanged testosterone (Depo-Testostero ne 200 mg/ mL intramuscular solution) 200 Milligram Intramuscular Every other week Hypogonadism male ED (erectile dysfunction)\.br \ Allergies\.br\ metFORMIN (Stomach cramps, Diarrhea)\.br\ Problems\.br\ Ongoing - Any problem that you are currently receiving treatment for.\.br\ Asymptomatic microscopic hematuria\.br\ BPH without urinary obstruction\.br\ ED (erectile dysfunction)\.br \ Former smoker\.br\ Groin pain\.br\ Hypogonadism male\.br\ Low testosterone\.br \ Nocturia\.br\ Patient Survey\.br\ You may receive a survey via text or e-mail asking about your office visit. Please share your experience with us by completing your survey. We appreciate your feedback and thank you for choosing us for your care.\.br\ \.br\ [facility] Ambulatory Visit Summaryon 1 09-20-2022 Ambulatory Visit Summary JOHNATHAN CORREA :1960 Visit Date:07/21/2023 Ambulatory Visit Instructions Your [...] AM EST With: Where: [facility] Invalid Interpretation Code [address] [place] [address] \.br\ Wednesday 8:00 AM EST \.br\ With: Carlos LIZAMA, Lety Scott\.br\ Where: [facility] Ambulatory Visit Summaryon 1 09-06-2022 Ambulatory Visit Summary SUNNY, JOHNATHAN Valentino :1960 Visit Date:07/07/2023 Ambulatory Visit Instructions Your [...] 8:00 AM EST With: Where: [facility] Invalid Interpretation Code [address] [place] [address]- \.br\ Wednesday 8:00 AM EST \.br\ With:\.br\ Where: [facility] Ambulatory Visit Summaryon 1 Ambulatory Visit Summary SUNNY JOHNATHAN Valentino :1960 Visit Date:06/23/2023 Ambulatory Visit Instructions Your [...] AM EDT With: Where: [facility] Invalid Interpretation Code [address] [place] [address]- \.br\ Wednesday 8:00 AM EST \.br\ With:\.br\ Where: [facility] Ambulatory Visit Summaryon 1 Ambulatory Visit Summary JOHNAHTAN CORREA :1960 Visit Date:06/09/2023 Ambulatory Visit Instructions Your Diagnosis Hypogonadism male BPH without urinary obstruction ED (erectile dysfunction) Tests Performed Urnls Dip Stick Auto w/o Microscopy POC 39282 Your Care Team Attending Physician - Lety [...] AM EDT With: Where: [facility] Normal [address] [place] [address]- \.br\ You Need to Schedule the Following Appointments\.br \ Follow Up with Carlos LIZAMA, SHAYY Hernandes, URO When: In 3 months\.br\ Comments:\.br\ w/ T Level, HCT, and PSA\.br\ Where:\.br\ Medications\.br\ What How Much When Why Instructions\.br \ New tadalafil (Cialis 20 mg Tab) 1 Tablets By Mouth As Directed as needed for for erectile dysfunction Refills: 3 Do not exceed 20mg within 24 hours. Pickup at [facility]/pharmacy #[id number]\.br\ Changed testosterone (Depo-Testostero ne 200 mg/ mL intramuscular solution) 200 Milligram Intramuscular Every other week Hypogonadism male ED (erectile dysfunction) Pickup at [facility]/pharmacy #[id number]\.br\ Unchanged amlodipine (amLODIPine 5 mg Tab) By [...] if questions or concerns \.br\ Pharmacy Information\.br\ [facility]/pharmacy #[id number]: [address] [place], [place] [id number] [phone]\.br\ \.br\ What How Much When Comments\.br\ Stop Taking sildenafil (Viagra 100 mg Tab) 1 Tablets By Mouth As Directed as needed for for erectile dysfunction 1 hour before sexual activity. Start with 1/ 2 tablet. Not to exceed 1 tab (100 mg) in 24 hours \.br\ Test Results\.br\ Urnls Dip Stick Auto w/o Microscopy POC 87841 (06/09/2023)\.br \ Bilirubin Urine Dipstick - Negative\.br\ Blood Urine Dipstick - Negative\.br\ Glucose Urine Dipstick - 3+ 1000 mg/dl\.br\ Ketones Urine Dipstick - Negative\.br\ Leukocytes Urine Dipstick - Negative\.br\ Nitrite Urine Dipstick - Negative\.br\ Protein Urine Dipstick - Negative\.br\ Specific Elizabeth Urine Dipstick - 1.010\.br\ Urine Appearance Urine Dipstick - Clear\.br\ Urine Color Urine Dipstick - Yellow\.br\ Urobilinogen Urine Dipstick - Normal 0.2-1 EU/dl\.br\ pH Urine Dipstick - 5\.br\ Medications and Immunizations Administered\.br \ Given\.br\ Depo-Testosteron e 200 mg/mL intramuscular solution, 50 mg, IntraMuscular. For: Hypogonadism male\.br\ Allergies\.br\ metFORMIN (Stomach cramps, Diarrhea)\.br\ Problems\.br\ Ongoing - Any problem that you are currently receiving treatment for.\.br\ Asymptomatic microscopic hematuria\.br\ BPH without urinary obstruction\.br\ ED (erectile dysfunction)\.br \ Former smoker\.br\ Groin pain\.br\ Hypogonadism male\.br\ Low testosterone\.br \ Nocturia\.br\ Education Materials\.br\ Hypogonadism, Male\.br\ \.br\ Male [...] In adult men, testosterone is responsible for maintaining:\.br \ ? \.br\ An interest in sex and [...] to have or maintain an erection (erectile dysfunction).\.b r\ ? \.br\ Feeling tired (fatigue).\.br\ ? \.br\ Mood changes, like irritability or depression.\.br\ ? \.br\ Loss of muscle and body hair.\.br\ ? \.br\ Infertility.\.br \ ? \.br\ Large breasts.\.br\ ? \.br\ Weight [...] blood tests before getting a diagnosis of hypogonadism.\.b r\ Depending on your medical history and test results, your health care provider may also do other tests to find the cause of low testosterone.\.b r\ How is this treated?\.br\ This condition is [...] symptoms before putting you on testosterone repla [facility] Patient Educationon 06-09-20 Patient Education Urology [...] Follow these instructions at home: ? Take mrqt-cal-sogjgqx and prescription medicines only as told by [...] 04/24/2021 Document (more content not included)... Normal [facility] Screenson 06-09-2023 Screens [id number] 54#1.00CD:127 [facility] Screens [id number] 5D#1.00CD:127 [facility] Urology Office/Clinic Noteon 06-09-2023 Urology Office/Clinic Note [...] When Contact Information Carlos LIZAMA, Lety Scott, URMalaika, URO In 3 months Additional Instructions: w/ T Level, HCT, and PSA Patient Education Hypogonadism, Male I, Judith Bell, personally scribed for Dr. Gonzalez on 06/09/2023 08:22:33. . Documentation recorded by the scribJudith blakely, accurately reflects the services(s) I performed and [...] Tab, O (more content not included)... Normal [facility] Comment on above: Result Comment: Elec tronically Signed By: Lety Gonzalez MD\.br\Date and Time Signed: 06/09/23 14:47 EDT\.br\Electronically Co-Signed By: Judith Bell\.br\Date and Time Co-Signed: 06/09/23 08:22 EDT [facility] 06-04-2023 Lab Reports [id number] B7#1.00CD:127 [facility] Lab Reports [id number] 8#1.00CD:127 [facility] Ambulatory Visit Summaryon 0 06-02-2023 Ambulatory Visit Summary JOHNATHAN CORREA :1960 Visit Date:06/02/2023 Ambulatory Visit Instructions Your [...] Lety Gonzalez MD Where: [facility] 06-02-2023 Lab Reports [id number] 0B#[id number]:127 Normal [facility] Ambulatory Visit Summaryon 0 05-12-2023 Ambulatory Visit Summary JOHNATHAN CORREA :1960 Visit Date:05/12/2023 Ambulatory Visit Instructions Your [...] AM EDT With: Where: [facility] Invalid Interpretation Code [address] [place] [address]- \.br\ Wednesday 8:45 AM EDT \.br\ With: Lety Gonzalez MD\.br\ Where: [facility] Ambulatory Visit Summaryon 0 04-28-2023 Ambulatory Visit Summary SUNNY JOHNATHAN Valentino :1960 Visit Date:04/28/2023 Ambulatory Visit Instructions Your [...] AM EDT With: Where: [facility] Invalid Interpretation Code [address] [facility] [place] [address] \.br\ Wednesday 8:45 AM EDT \.br\ With: Carlos LIZAMA, Lety Scott\.br\ Where: [facility] Ambulatory Visit Summaryon 0 04-14-2023 Ambulatory Visit Summary JOHNATHAN CORREA :1960 Visit Date:04/14/2023 Ambulatory Visit Instructions Your [...] 8:30 AM EDT With: Where: [facility] Invalid Interpretation Code [address] [facility] [place] [address] \.br\ Wednesday 8:00 AM EDT \.br\ With:\.br\ Where: [facility] Ambulatory Visit Summaryon 0 03-17-2023 Ambulatory Visit Summary JOHNATHAN CORREA :1960 Visit Date:03/17/2023 Ambulatory Visit Instructions Your [...] 5 mg Tab) omeprazole (omeprazole 40 mg Benigno-) sildenafil (Viagra 100 mg Tab) testosterone (testosterone cypionate 200 mg/mL IM Rein) Procedures Performed Big toe, Tonsillectomy. What to do next Scheduled Follow-Up Appointments Wednesday 8:00 AM EDT With: Where: [facility] Normal [address] [address]- \.br\ You Need to Schedule the Following Appointments\.br \ Follow Up with Carlos LIZAMA, Lety Scott, URL, URO When: In 2 weeks\.br\ Comments:\.br\ Will return in 2wks for next injection.\.br\ Will see Dr Gonzalez end may with PSA T & HCT & HGB.\.br\ Where:\.br\ [address]\.br\ [place] [address]\.br\ Medications\.br\ What How Much When Instructions\.br \ Unchanged amlodipine (amLODIPine 5 mg Tab) By [...] Intramuscular Every other week\.br\ Medications and Immunizations Administered\.br \ Given\.br\ Depo-Testosteron e 200 mg/mL intramuscular solution, 150 mg, IntraMuscular. For: Hypogonadism male\.br\ Allergies\.br\ metFORMIN (Stomach cramps, Diarrhea)\.br\ Problems\.br\ Ongoing - Any problem that you are currently receiving treatment for.\.br\ Asymptomatic microscopic hematuria\.br\ BPH without urinary obstruction\.br\ ED (erectile dysfunction)\.br \ Former smoker\.br\ Groin pain\.br\ Hypogonadism male\.br\ Low testosterone\.br \ Nocturia\.br\ \.br\ [facility] Nurse Consultation Noteon Nurse Consultation Note [...] Daily Allergies metFORMIN (Stomach cramps, Diarrhea) Normal [facility] CHEMISTRYOrdered By: SYSTEM SYSTEM on 02-24-2023 Prostate specific Ag [Mass/Vol] 3.6 ng/mL High 0.1 - 3.5 ng/mL [facility] Remisol HEMATOLOGYOrdered By: Emily Churchill on 02-24-2023 Hematocrit (Bld) [Volume fraction] 46.7 % Normal 37.7 - 49.0 % [facility] HemeAutoS S Hemoglobin (Bld) [Mass/Vol] 15.6 g/dL Normal 13.5 - 17.5 gm/dL [facility] HemeAutoSS Falls Screening (Age 18+)on 12-22-2022 Fall risk assessment c) Not medically indicated [facility] [employer] DO Work Phone: Tobacco use status [facility] b) No [facility] [email or web address] 250 DO Work Phone: Falls Screening (Age 18+) Yes [facility] DO Work Phone: CBC AUTO DIFFon 12-17-2022 BASO # 0.1 103/ul Normal 0.0-0.1 [facility] Comment on above: Performed By: #### C [facility] #### [facility] [address] [address] [address] Talia Plascencia Basophils/100 WBC (Bld) 0.6 % Normal 0.2-2.0 [facility] Comment on above: Performed By: #### C VDTBH #### [facility] [address] [place] [address] Dr. Talia Plascencia EO # 0.5 103/ul Normal 0.0-0.7 [facility] Comment on above: Performed By: #### C VDTBH #### [facility] [address] [place] [address] Dr. Talia Plascencia Eosinophils/100 WBC (Bld) 5.4 % Normal 0.9-7.0 [facility] Comment on above: Performed By: #### C VDTBH #### [facility] [address] [place] [address] Dr. Talia Plascencia Erythrocyte distribution width (RBC) [Ratio] 15.6 % Critically high 11.0-15.0 [facility] Comment on above: Performed By: #### C VDTBH #### [facility] [address] [place] [address] Dr. Talia Plascencia Hematocrit (Bld) [Volume fraction] 45.6 % Normal 42.0-54.0 [facility] Comment on above: Performed By: #### C VDTBH #### [facility] [address] [place] [address] Dr. Talia Plascencia Hemoglobin (Bld) [Mass/Vol] 15.8 g/dL Normal 14.0-18.[address] [facility] Comment on above: Performed By: #### C VDTBH #### [facility] [address] [place] [address] Dr. Talia Plascencia IG # 0.02 10e3/ul Normal 0.00-0.[address] [facility] Comment on above: Performed By: #### C VDTBH #### [facility] [address] [place] [address] Dr. Talia Plascencia IG % 0.2 % Normal 0.0-0.[address] [facility] Comment on above: Performed By: #### C VDTBH #### [facility] [address] [place] [address] Dr. Talia Plascencia LYMPH # 1.8 103/ul Normal 1.2-3.8 [facility] Comment on above: Performed By: #### C VDTBH #### [facility] [address] [place] [address] Dr. Talia Plascencia Lymphocytes/100 WBC (Bld) 22.0 % Normal 20.5-60.0 [facility] Comment on above: Performed By: #### C VDTBH #### [facility] [address] [place] [address] Dr. Talia Plascencia MANUAL DIFF REQ NO Normal [facility] Comment on above: Performed By: #### C VDTBH #### [facility] [address] [place] [address] Dr. Talia Plascencia MCH (RBC) [Entitic mass] 27.4 pg Normal 25.9-34.0 [facility] Comment on above: Performed By: #### C VDTBH #### [facility] [address] [place] [address] Dr. Talia Plascencia MCHC (RBC) [Mass/Vol] 34.6 g/dL Normal 29.9-35.2 [facility] Comment on above: Performed By: #### C VDTBH #### [facility] [address] [place] [address] Dr. Talia Plascencia MCV (RBC) [Entitic vol] 79.2 fL Critically low 80.0-94.0 [facility] Comment on above: Performed By: #### C VDTBH #### [facility] [address] [place] [address] Dr. Talia Plascencia MONO # 0.7 103/ul Normal 0.3-0.8 [facility] Comment on above: Performed By: #### C VDTBH #### [facility] [address] [place] [address] Dr. Talia Plascencia Monocytes/100 WBC (Bld) 7.9 % Normal 1.7-12.0 [facility] Comment on above: Performed By: #### C VDTBH #### [facility] [address] [place] [address] Dr. Talia Plascencia NEUT # 5.3 103/ul Normal 1.4-6.5 [facility] Comment on above: Performed By: #### C VDTBH #### [facility] [address] [address] [address] Talia Plascencia Neutrophils/100 WBC (Bld) 63.9 % Normal 43.0-75.0 [facility] Comment on above: Performed By: #### C VDTBH #### [facility] [address] [address] [address] Talia Plascencia Platelet mean volume (Bld) [Entitic vol] 10.8 fL Normal 9.5-13.[address] [facility] Comment on above: Performed By: #### C VDTBH #### [facility] [address] [place] [address] Dr. Talia Plascencia PLT 218 103/ul Normal 150-450 [facility] Comment on above: Performed By: #### C VDTBH #### [facility] [address] [place] [address] Dr. Talia Plascencia RBC 5.76 106/ul Normal 4.70-6.[address] [facility] Comment on above: Performed By: #### C VDTBH #### [facility] [address] [place] [address] Dr. Talia Plascencia WBC 8.3 103/ul Normal 4.0-11.0 [facility] Comment on above: Performed By: #### C VDTBH #### [facility] [address] [place] [address] Dr. Talia Plascencia GLYCOHEMOGLOBIN A1Con 2022 ADA RECOMMENDATION SEE BELOW Normal [facility] Comment on above: Result Comment: ADA RECOMMENDED LIMIT 4.0 - 6.0 ADA THERAPEUTIC TARGET < 7.0 ACTION SUGGESTED > 7.0 Performed By: #### I NFLUAB #### [facility] [address] [place] [address] Dr. Talia Plascencia Glucose [Mass/Vol] 203 mg/dL Normal [facility] Comment on above: Performed By: #### I NFLUAB #### [facility] [address] [address] [address] Talia Plascencia HbA1c (Bld) [Mass fraction] 8.7 % Critically high 4.5-6.2 [facility] Comment on above: Performed By: #### I NFLUAB #### [facility] [address] [address] [address] Talia Plascencia LIPID PROFILEon 12-17-2022 CHOL-HDL RATIO NORM SEE BELOW Normal [facility] Comment on above: Result Comment: 3.3 - 4.4 LOW RISK 4.4 - 7.1 AVERAGE RISK 7.1 - 11.0 MODERATE RISK >11.0 HIGH RISK Performed By: #### P OCGLUC #### [facility] [address] [place] [address] Dr. Talia Plascencia Cholesterol [Mass/Vol] 120 mg/dL Normal <=200 [facility] Comment on above: Performed By: #### P OCGLUC #### [facility] [address] [place] [address] Dr. Talia Plascencia Cholesterol in HDL [Mass/Vol] 28 mg/dL Critically low 40-60 [facility] Comment on above: Performed By: #### P OCGLUC #### [facility] [address] [place] [address] Dr. Talia Plascencia Cholesterol in LDL [Mass/Vol] 67.6 mg/dL Normal [facility] Comment on above: Performed By: #### P OCGLUC #### [facility] [address] [place] [address] Dr. Talia Plascencia Cholesterol.total/C holesterol in HDL [Mass ratio] 4.3 {ratio} Normal [facility] Comment on above: Performed By: #### P OCGLUC #### [facility] [address] [place] [address] Dr. Talia Plascencia HDL NORMAL > or = 60 mg/dl - LOW CARDIOVASCULAR RISK <40 mg/dl - HIGH CARDIOVASCULAR RISK Normal [facility] Comment on above: Performed By: #### P OCGLUC #### [facility] [address] [place] [address] Dr. Talia Plascencia LDL CALC NORMAL SEE BELOW Normal [facility] Comment on above: Result Comment: <100 mg/dl OPTIMAL 100 - 129 mg/dl NEAR OR ABOVE OPTIMAL 130 - 159 mg/dl BORDERLINE HIGH 160 - 189 mg/dl HIGH >190 mg/dl VERY HIGH Performed By: #### P OCGLUC #### [facility] [address] [address] [address] Talia Plascencia Triglyceride [Mass/Vol] 122 mg/dL Normal <=150 [facility] Comment on above: Performed By: #### P OCGLUC #### [facility] [address] [address] [address] Talia Plascencia VLDL CALC 24.4 mg/dL Normal [facility] Comment on above: Performed By: #### P OCGLUC #### [facility] [address] [address] [address] Talia Plascencia PROF 14(COMP METB)on 023 Albumin [Mass/Vol] 3.8 g/dL Normal 3.4-5.0 [facility] Comment on above: Performed By: #### P OCGLUC #### [facility] [address] [address] [address] Talia Plascencia Albumin/Globulin [Mass ratio] 1.0 {ratio} Normal [facility] Comment on above: Performed By: #### P OCGLUC #### [facility] [address] [address] [address] Talia Plascencia ALP [Catalytic activity/Vol] 73 U/L Normal 46-[address] [facility] Comment on above: Performed By: #### P OCGLUC #### [facility] [address] [address] [address] Talia Plascencia ALT [Catalytic activity/Vol] 22 U/L Normal 16-63 [facility] Comment on above: Performed By: #### P OCGLUC #### [facility] [address] [address] [address] Talia Plascencia Anion gap [Moles/Vol] 10.7 mmol/L Normal [facility] Comment on above: Performed By: #### P OCGLUC #### [facility] [address] [address] [address] Talia Plascencia AST [Catalytic activity/Vol] 31 U/L Normal 15-37 [facility] Comment on above: Performed By: #### P OCGLUC #### [facility] [address] [address] [address] Talia Plascencia Bilirubin [Mass/Vol] 0.6 mg/dL Normal 0.2-1.0 [facility] Comment on above: Performed By: #### P OCGLUC #### [facility] [address] [address] [address] Talia Plascencia Calcium [Mass/Vol] 9.5 mg/dL Normal 8.5-10.1 [facility] Comment on above: Performed By: #### P OCGLUC #### [facility] [address] [place] [address] Dr. Talia Plascencia Chloride [Moles/Vol] 102 mmol/L Normal 98-107 [facility] Comment on above: Performed By: #### P OCGLUC #### [facility] [address] [address] [address] Talia Plascencia CO2 [Moles/Vol] 28.9 mmol/L Normal 21.0-32.0 [facility] Comment on above: Performed By: #### P OCGLUC #### [facility] [address] [place] [address] Dr. Talia Plascencia Creatinine [Mass/Vol] 1.27 mg/dL Normal 0.70-1.30 [facility] Comment on above: Performed By: #### P OCGLUC #### [facility] [address] [place] [address] Dr. Talia Plascencia EGFR-AF NEPALESE >60 Normal >=60 [facility] Comment on above: Performed By: #### P OCGLUC #### [facility] [address] [address] [address] Talia Plascencia EGFR-NON AF NEPALESE 57 mL/min/1.73m2 Critically low >=60 [facility] Comment on above: Performed By: #### P OCGLUC #### [facility] [address] [address] [address] Talia Plascencia Globulin (S) [Mass/Vol] 3.9 g/dL Normal [facility] Comment on above: Performed By: #### P OCGLUC #### [facility] [address] [address] [address] Talia Plascencia Glucose [Mass/Vol] 209 mg/dL Critically high 74-106 [facility] Comment on above: Performed By: #### P OCGLUC #### [facility] [address] [address] [address] Talia Plascencia Potassium [Moles/Vol] 4.6 mmol/L Normal 3.5-5.1 [facility] Comment on above: Performed By: #### P OCGLUC #### [facility] [address] [place] [address] Dr. Talia Plascencia Protein [Mass/Vol] 7.7 g/dL Normal 6.4-8.2 [facility] Comment on above: Performed By: #### P OCGLUC #### [facility] [address] [place] [address] Dr. Talia Plascencia Sodium [Moles/Vol] 137 mmol/L Normal 136-145 [facility] Comment on above: Performed By: #### P OCGLUC #### [facility] [address] [place] [address] Dr. Talia Plascencia Urea nitrogen [Mass/Vol] 22.0 mg/dL Critically high 7.0-18.0 [facility] Comment on above: Performed By: #### P OCGLUC #### [facility] [address] [place] [address] Dr. Talia Plascencia Urea nitrogen/Creatinine [Mass ratio] 17.3 mg/mg Normal [facility] Comment on above: Performed By: #### P OCGLUC #### [facility] [address] [place] [address] Dr. Talia Plascencia HEMATOLOGYOrdered By: SYSTEM SYSTEM on 11-20-2022 Basophils/100 WBC (Bld) 0.8 % Normal 0.0 - 2.0 % [facility] [place] [facility] Basophils/Leukocyte s Auto (Bld) [Pure # fraction] 0.1 E9/L Normal 0.0 - 0.2 E9/L [facility] Eosinophils/100 WBC (Bld) 4.9 % Normal 0.0 - 8.0 % [facility] Eosinophils/Leukocy jimbo Auto (Bld) [Pure # fraction] 0.4 E9/L Normal 0.0 - 0.5 E9/L [facility]eAutoS S Lymphocytes/100 WBC (Bld) 15.6 % Normal 14.0 - 50.0 % [facility] Lymphocytes/Leukocy jimbo Auto (Bld) [Pure # fraction] 1.4 E9/L Normal 1.0 - 4.0 E9/L [facility]eAuto[facility] S Monocytes/100 WBC (Bld) 7.1 % Normal 4.0 - 14.0 % [facility] Monocytes/Leukocyte s Auto (Bld) [Pure # fraction] 0.6 E9/L Normal 0.2 - 1.0 E9/L [facility] Neutrophils/100 WBC (Bld) 71.6 % Normal 36.0 - 75.0 % [facility] Neutrophils/Leukocy jimbo Auto (Bld) [Pure # fraction] 6.4 E9/L Normal 2.0 - 7.5 E9/L [facility] HemeAutoS S HEMATOLOGYOrdered By: Lexii Kelly on 11-20-2022 Erythrocyte distribution width (RBC) [Ratio] 16.1 % High 10.9 - 14.2 % [facility] Hematocrit (Bld) [Volume fraction] 48.8 % Normal 37.7 - 49.0 % [facility] S Hemoglobin (Bld) [Mass/Vol] 15.9 g/dL Normal 13.5 - 17.5 gm/dL [facility] MCH (RBC) [Entitic mass] 26.6 pg Low 27.0 - 34.0 pg [facility] MCHC (RBC) [Mass/Vol] 32.5 g/dL Normal 31.4 - 36.0 gm/dL [facility] MCV (RBC) [Entitic vol] 81.9 fL Normal 80.0 - 100.0 fL [facility] Platelet mean volume (Bld) [Entitic vol] 9.5 fL Normal 6.4 - 10.8 fL [facility] Platelets (Bld) [#/Vol] 205.0 E9/L Normal 150.0 - 500.0 E9/L [facility] [facility] RBC (Bld) [#/Vol] 6.0 E12/L High 4.3 - 5.9 E12/L [facility] WBC corrected for nucl RBC Auto (Bld) [#/Vol] 8.9 E9/L Normal 4.0 - 11.0 E9/L [facility] [facility] XR ABD FLAT UP_PA Rahat 08-05 [...] CARLY PRESCOTT Date: 2022-08-04 23:[address] [facility] ACETONE SERUMon 08-04-2022 ACETONE SMALL Abnormal NEGATIVE [facility] Comment on above: Performed By: #### C BCMAN #### [facility] [address] [address] [address] Talia Plascencia CBC AUTO DIFFon 08-04-2022 BASO # 0.1 103/ul Normal 0.0-0.1 [facility] Comment on above: Performed By: #### C VDTBH #### [facility] [address] [address] [address] Talia Plascencia Basophils/100 WBC (Bld) 0.5 % Normal 0.2-2.0 [facility] Comment on above: Performed By: #### C VDTBH #### [facility] [address] [place] [address] Dr. Talia Plascencia EO # 0.1 103/ul Normal 0.0-0.[address] [facility] Comment on above: Performed By: #### C VDTBH #### [facility] [address] [place] [address] Dr. Talia Plascencia Eosinophils/100 WBC (Bld) 1.1 % Normal 0.9-7.0 [facility] Comment on above: Performed By: #### C VDTBH #### [facility] [address] [place] [address] Dr. Talia Plascencia Erythrocyte distribution width (RBC) [Ratio] 15.7 % Critically high 11.0-15.0 [facility] Comment on above: Performed By: #### C VDTBH #### [facility] [address] [place] [address] Dr. Talia Plascencia Hematocrit (Bld) [Volume fraction] 50.2 % Normal 42.0-54.0 [facility] Comment on above: Performed By: #### C VDTBH #### [facility] [address] [place] [address] Dr. Talia Placsencia Hemoglobin (Bld) [Mass/Vol] 17.3 g/dL Normal 14.0-18.[address] [facility] Comment on above: Performed By: #### C VDTBH #### [facility] [address] [place] [address] Dr. Talia Plascencia IG # 0.03 10e3/ul Normal 0.00-0.[address] [facility] Comment on above: Performed By: #### C VDTBH #### [facility] [address] [place] [address] Dr. Talia Plascencia IG % 0.3 % Normal 0.0-0.[address] [facility] Comment on above: Performed By: #### C VDTBH #### [facility] [address] [place] [address] Dr. Talia Plascencia LYMPH # 0.7 103/ul Critically low 1.2-3.8 [facility] Comment on above: Performed By: #### C VDTBH #### [facility] [address] [place] [address] Dr. Talia Plascencia Lymphocytes/100 WBC (Bld) 7.0 % Critically low 20.5-60.0 [facility] Comment on above: Performed By: #### C VDTBH #### [facility] [address] [place] [address] Dr. Talia Plascencia MANUAL DIFF REQ NO Normal [facility] Comment on above: Performed By: #### C VDTBH #### [facility] [address] [place] [address] Dr. Talia Plascencia MCH (RBC) [Entitic mass] 26.3 pg Normal 25.9-34.0 [facility] Comment on above: Performed By: #### C VDTBH #### [facility] [address] [place] [address] Dr. Talia Plascencia MCHC (RBC) [Mass/Vol] 34.5 g/dL Normal 29.9-35.[address] [facility] Comment on above: Performed By: #### C VDTBH #### [facility] [address] [place] [address] Dr. Talia Plascencia MCV (RBC) [Entitic vol] 76.2 fL Critically low 80.0-94.[address] [facility] Comment on above: Performed By: #### C VDTBH #### [facility] [address] [place] [address] Dr. Talia Plascencia MONO # 1.0 103/ul Critically high 0.3-0.8 [facility] Comment on above: Performed By: #### C VDTBH #### [facility] [address] [place] [address] Dr. Talia Plascencia Monocytes/100 WBC (Bld) 9.9 % Normal 1.7-12.0 [facility] Comment on above: Performed By: #### C VDTBH #### [facility] [address] [address] [address] Talia Plascencia NEUT # 8.5 103/ul Critically high 1.4-6.5 [facility] Comment on above: Performed By: #### C VDTBH #### [facility] [address] [address] [address] Talia Plascencia Neutrophils/100 WBC (Bld) 81.2 % Critically high 43.0-75.[address] [facility] Comment on above: Performed By: #### C VDTBH #### [facility] [address] [address] [address] Talia Plascencia Platelet mean volume (Bld) [Entitic vol] 10.5 fL Normal 9.5-13.5 [facility] Comment on above: Performed By: #### C VDTBH #### [facility] [address] [place] [address] Dr. Talia Plascencia PLT 212 103/ul Normal 150-[address] [facility] Comment on above: Performed By: #### C VDTBH #### [facility] [address] [address] [address] Talia Plascencia RBC 6.59 106/ul Critically high 4.70-6.10 [facility] Comment on above: Performed By: #### C VDTBH #### [facility] [address] [place] [address] Dr. Talia Plascencia WBC 10.4 103/ul Normal 4.0-11.[address] [facility] Comment on above: Performed By: #### C VDTBH #### [facility] [address] [place] [address] Dr. Talia Plascencia [facility] SARS-CoV-2 (COVID-19) RNA REKHA+probe Ql (Unsp spec) Detected Critically abnormal NOT DETECTED [facility] Comment on above: Result Comment: This test is not yet approved or cleared by the [place] FDA. When there are no FDA-approved or cleared tests available, and other criteria are met, FDA can make tests available under an emergency access mechanism called an Emergency Use Authorization (EUA). The EUA for this test is supported by the Plant Technical Specialist of Health and Human Service's declaration that [...] longer be used). Performed By: #### C VDTB #### [facility] [address] [place] [address] Dr. Talia Plascencia INFLUENZA A AND B AGon 08-04 INFLUENZA A AG Negative Normal NEGATIVE SEE COMMENT [facility] Comment on above: Performed By: #### I NFLUAB #### [facility] [address] [place] [address] Dr. Talia Plascencia INFLUENZA B AG Negative Normal NEGATIVE SEE COMMENT [facility] Comment on above: Performed By: #### I NFLUAB #### [facility] [address] [place] [address] Dr. Talia Plascencia INTERNAL CONTROLS Within Normal Limits Normal Within Normal Limits [facility] Comment on above: Performed By: #### I NFLUAB #### [facility] [address] [place] [address] Dr. Talia Plascencia LACTATE/LACTIC ACIDon 2021 Lactate [Moles/Vol] 2.1 mmol/L Critically high 0.4-1.[address] [facility] Comment on above: Performed By: #### C BCMAN #### [facility] [address] [place] [address] Dr. Talia Plascencia LIPASEon 08-04-2022 Lipase [Catalytic activity/Vol] 135.0 U/L Normal 73.0-393.[address] [facility] Comment on above: Performed By: #### I NFLUAB #### [facility] [address] [place] [address] Dr. Talia Plascencia PROF 14(COMP METB)on 022 Albumin [Mass/Vol] 4.3 g/dL Normal 3.4-5.0 [facility] Comment on above: Performed By: #### I NFLUAB #### [facility] [address] [address] [address] Talia Plascencia Albumin/Globulin [Mass ratio] 1.0 {ratio} Normal [facility] Comment on above: Performed By: #### I NFLUAB #### [facility] [address] [address] [address] Talia Plascencia ALP [Catalytic activity/Vol] 77 U/L Normal 46-116 [facility] Comment on above: Performed By: #### I NFLUAB #### [facility] [address] [address] [address] Talia Plascencia ALT [Catalytic activity/Vol] 28 U/L Normal 16-63 [facility] Comment on above: Performed By: #### I NFLUAB #### [facility] [address] [place] [address] Dr. Talia Plascencia Anion gap [Moles/Vol] 20.3 mmol/L Normal [facility] Comment on above: Performed By: #### I NFLUAB #### [facility] [address] [place] [address] Dr. Talia Plascencia AST [Catalytic activity/Vol] 35 U/L Normal 15-37 [facility] Comment on above: Performed By: #### I NFLUAB #### [facility] [address] [place] [address] Dr. Talia Plascencia Bilirubin [Mass/Vol] 1.1 mg/dL Critically high 0.2-1.0 [facility] Comment on above: Performed By: #### I NFLUAB #### [facility] [address] [address] [address] Talia Plascencia Calcium [Mass/Vol] 10.1 mg/dL Normal 8.5-10.1 [facility] Comment on above: Performed By: #### I NFLUAB #### [facility] [address] [address] [address] Talia Plascencia Chloride [Moles/Vol] 95 mmol/L Critically low 98-107 [facility] Comment on above: Performed By: #### I NFLUAB #### [facility] [address] [address] [address] Talia Plascencia CO2 [Moles/Vol] 22.5 mmol/L Normal 21.0-32.0 [facility] Comment on above: Performed By: #### I NFLUAB #### [facility] [address] [address] [address] Talia Plascencia Creatinine [Mass/Vol] 1.36 mg/dL Critically high 0.70-1.30 [facility] Comment on above: Performed By: #### I NFLUAB #### [facility] [address] [address] [address] Talia Plascencia EGFR-AF NEPALESE >60 Normal >=60 [facility] Comment on above: Performed By: #### I NFLUAB #### [facility] [address] [address] [address] Talia Plascencia EGFR-NON AF NEPALESE 53 mL/min/1.73m2 Critically low >=60 [facility] Comment on above: Performed By: #### I NFLUAB #### [facility] [address] [address] [address] Talia Plascencia Globulin (S) [Mass/Vol] 4.4 g/dL Normal [facility] Comment on above: Performed By: #### I NFLUAB #### [facility] [address] [address] [address] Talia Plascencia Glucose [Mass/Vol] 220 mg/dL Critically high 74-106 [facility] Comment on above: Performed By: #### I NFLUAB #### [facility] [address] [address] [address] Talia Plascencia Potassium [Moles/Vol] 4.8 mmol/L Normal 3.5-5.1 [facility] Comment on above: Performed By: #### I NFLUAB #### [facility] [address] [address] [address] Talia Plascencia Protein [Mass/Vol] 8.7 g/dL Critically high 6.4-8.2 [facility] Comment on above: Performed By: #### I NFLUAB #### [facility] [address] [address] [address] Talia Plascencia Sodium [Moles/Vol] 133 mmol/L Critically low 136-145 [facility] Comment on above: Performed By: #### I NFLUAB #### [facility] [address] [address] [address] Talia Plascencia Urea nitrogen [Mass/Vol] 28.0 mg/dL Critically high 7.0-18.0 [facility] Comment on above: Performed By: #### I NFLUAB #### [facility] [address] [address] [address] Talia Plascencia Urea nitrogen/Creatinine [Mass ratio] 20.6 mg/mg Normal [facility] Comment on above: Performed By: #### I NFLUAB #### [facility] [address] [place] [address] Dr. Talia Plascencia TESTOSTERONE, TOTALon 2021 Testosterone [Mass/Vol] 830 ng/dL Normal 264-916 [facility] Comment on above: Result Comment: Adul t male reference interval is based on a population of healthy nonobese males (BMI <30) between 19 and 39 years old. Tayler et.al. JCEM 2017,102;2569-5734. PMID: [id number]. Performed By: #### C BC #### [facility] [address] [place] [address] Dr. Talia Plascencia CBC AUTO DIFFon 07-29-2022 BASO # 0.1 103/ul Normal 0.0-0.1 [facility] Comment on above: Performed By: #### P OCGLUC #### [facility] [address] [place] [address] Dr. Talia Plascencia Basophils/100 WBC (Bld) 0.7 % Normal 0.2-2.0 [facility] Comment on above: Performed By: #### P OCGLUC #### [facility] [address] [place] [address] Dr. Talia Plascencia EO # 0.5 103/ul Normal 0.0-0.7 [facility] Comment on above: Performed By: #### P OCGLUC #### [facility] [address] [place] [address] Dr. Talia Plascencia Eosinophils/100 WBC (Bld) 5.8 % Normal 0.9-7.0 [facility] Comment on above: Performed By: #### P OCGLUC #### [facility] [address] [place] [address] Dr. Talia Plascencia Erythrocyte distribution width (RBC) [Ratio] 15.0 % Normal 11.0-15.0 [facility] Comment on above: Performed By: #### P OCGLUC #### [facility] [address] [place] [address] Dr. Talia Plascencia Hematocrit (Bld) [Volume fraction] 45.9 % Normal 42.0-54.0 [facility] Comment on above: Performed By: #### P OCGLUC #### [facility] [address] [place] [address] Dr. Talia Plascencia Hemoglobin (Bld) [Mass/Vol] 15.8 g/dL Normal 14.0-18.0 [facility] Comment on above: Performed By: #### P OCGLUC #### [facility] [address] [place] [address] Dr. Talia Plascencia IG # 0.03 10e3/ul Normal 0.00-0.03 [facility] Comment on above: Performed By: #### P OCGLUC #### [facility] [address] [place] [address] Dr. Talia Plascencia IG % 0.4 % Normal 0.0-0.[address] [facility] Comment on above: Performed By: #### P OCGLUC #### [facility] [address] [place] [address] Dr. Talia Plascencia LYMPH # 1.4 103/ul Normal 1.2-3.[address] [facility] Comment on above: Performed By: #### P OCGLUC #### [facility] [address] [place] [address] Dr. Talia Plascencia Lymphocytes/100 WBC (Bld) 17.3 % Critically low 20.5-60.0 [facility] Comment on above: Performed By: #### P OCGLUC #### [facility] [address] [place] [address] Dr. Talia Plascencia MANUAL DIFF REQ NO Normal [facility] Comment on above: Performed By: #### P OCGLUC #### [facility] [address] [place] [address] Dr. Talia Plascencia MCH (RBC) [Entitic mass] 27.4 pg Normal 25.9-34.0 [facility] Comment on above: Performed By: #### P OCGLUC #### [facility] [address] [place] [address] Dr. Talia Plascencia MCHC (RBC) [Mass/Vol] 34.4 g/dL Normal 29.9-35.2 [facility] Comment on above: Performed By: #### P OCGLUC #### [facility] [address] [place] [address] Dr. Talia Plascencia MCV (RBC) [Entitic vol] 79.5 fL Critically low 80.0-94.0 [facility] Comment on above: Performed By: #### P OCGLUC #### [facility] [address] [place] [address] Dr. Talia Plascencia MONO # 0.5 103/ul Normal 0.3-0.8 [facility] Comment on above: Performed By: #### P OCGLUC #### [facility] [address] [place] [address] Dr. Talia lPascencia Monocytes/100 WBC (Bld) 6.6 % Normal 1.7-12.0 [facility] Comment on above: Performed By: #### P OCGLUC #### [facility] [address] [place] [address] Dr. Talia Plascencia NEUT # 5.6 103/ul Normal 1.4-6.5 [facility] Comment on above: Performed By: #### P OCGLUC #### [facility] [address] [place] [address] Dr. Talia Plascencia Neutrophils/100 WBC (Bld) 69.2 % Normal 43.0-75.0 [facility] Comment on above: Performed By: #### P OCGLUC #### [facility] [address] [address] [address] Talia Plascencia Platelet mean volume (Bld) [Entitic vol] 10.5 fL Normal 9.5-13.5 [facility] Comment on above: Performed By: #### P OCGLUC #### [facility] [address] [address] [address] Talia Plascencia PLT 216 103/ul Normal 150-450 [facility] Comment on above: Performed By: #### P OCGLUC #### [facility] [address] [address] [address] Talia Plascencia RBC 5.77 106/ul Normal 4.70-6.10 [facility] Comment on above: Performed By: #### P OCGLUC #### [facility] [address] [place] [address] Dr. Talia Plascencia WBC 8.2 103/ul Normal 4.0-11.0 [facility] Comment on above: Performed By: #### P OCGLUC #### [facility] [address] [place] [address] Dr. Talia Plascencia TESTOSTERONE, TOTALon 2021 Testosterone [Mass/Vol] 323 ng/dL Normal 264-916 [facility] Comment on above: Result Comment: Adul t male reference interval is based on a population of healthy nonobese males (BMI <30) between 19 and 39 years old. Tayler et.al. JCEM 2017,102;[id number]. PMID: [id number]. Performed By: #### T ESTTOT #### [facility] [address] [place] [address] Dr. Talia Plascencia CBC AUTO DIFFon 05-13-2022 BASO # 0.1 103/ul Normal 0.0-0.1 [facility] Comment on above: Performed By: #### C BCMAN #### [facility] [address] [place] [address] Dr. Talia Plascencia Basophils/100 WBC (Bld) 0.9 % Normal 0.2-2.0 [facility] Comment on above: Performed By: #### C SOLITARIO #### [facility] [address] [place] [address] Dr. Talia Plascencia EO # 0.3 103/ul Normal 0.0-0.7 [facility] Comment on above: Performed By: #### C SOLITARIO #### [facility] [address] [place] [address] Dr. Talia Plascencia Eosinophils/100 WBC (Bld) 4.0 % Normal 0.9-7.0 [facility] Comment on above: Performed By: #### C SOLITARIO #### [facility] [address] [place] [address] Dr. Talia Plascencia Erythrocyte distribution width (RBC) [Ratio] 15.6 % Critically high 11.0-15.0 [facility] Comment on above: Performed By: #### Bee JEREZ #### [facility] [address] [place] [address] Dr. Talia Plascencia Hematocrit (Bld) [Volume fraction] 43.9 % Normal 42.0-54.0 [facility] Comment on above: Performed By: #### C SOLITARIO #### [facility] [address] [place] [address] Dr. Talia Plascencia Hemoglobin (Bld) [Mass/Vol] 14.5 g/dL Normal 14.0-18.0 [facility] Comment on above: Performed By: #### Bee JEREZ #### [facility] [address] [place] [address] Dr. Talia Plascencia IG # 0.02 10e3/ul Normal 0.00-0.[address] [facility] Comment on above: Performed By: #### C SOLITARIO #### [facility] [address] [place] [address] Dr. Talia Plascencia IG % 0.3 % Normal 0.0-0.[address] [facility] Comment on above: Performed By: #### C SOLITARIO #### [facility] [address] [place] [address] Dr. Talia Plascencia LYMPH # 1.6 103/ul Normal 1.2-3.8 [facility] Comment on above: Performed By: #### C SOLITARIO #### [facility] [address] [place] [address] Dr. Talia Plascencia Lymphocytes/100 WBC (Bld) 23.5 % Normal 20.5-60.0 [facility] Comment on above: Performed By: #### C SOLITARIO #### [facility] [address] [place] [address] Dr. Talia Plascencia MANUAL DIFF REQ NO Normal [facility] Comment on above: Performed By: #### C SOLITARIO #### [facility] [address] [place] [address] Dr. Talia Plascencia MCH (RBC) [Entitic mass] 26.1 pg Normal 25.9-34.0 [facility] Comment on above: Performed By: #### C SOLITARIO #### [facility] [address] [place] [address] Dr. Talia Plascencia MCHC (RBC) [Mass/Vol] 33.0 g/dL Normal 29.9-35.2 [facility] Comment on above: Performed By: #### C SOLITARIO #### [facility] [address] [place] [address] Dr. Talia Plascencia MCV (RBC) [Entitic vol] 79.0 fL Critically low 80.0-94.0 [facility] Comment on above: Performed By: #### C SOLITARIO #### [facility] [address] [place] [address] Dr. Talia Plascencia MONO # 0.6 103/ul Normal 0.3-0.8 [facility] Comment on above: Performed By: #### C SOLITARIO #### [facility] [address] [place] [address] Dr. Talia Plascencia Monocytes/100 WBC (Bld) 8.2 % Normal 1.7-12.0 [facility] Comment on above: Performed By: #### C SOLITARIO #### [facility] [address] [place] [address] Dr. Talia Plascencia NEUT # 4.4 103/ul Normal 1.4-6.5 [facility] Comment on above: Performed By: #### C SOLITARIO #### [facility] [address] [place] [address] Dr. Talia Plascencia Neutrophils/100 WBC (Bld) 63.1 % Normal 43.0-75.0 [facility] Comment on above: Performed By: #### C SOLITARIO #### [facility] [address] [place] [address] Dr. Talia Plascencia Platelet mean volume (Bld) [Entitic vol] 11.6 fL Normal 9.5-13.5 [facility] Comment on above: Performed By: #### C SOLITARIO #### [facility] [address] [place] [address] Dr. Talia Plascencia PLT 247 103/ul Normal 150-450 [facility] Comment on above: Performed By: #### C SOLITARIO #### [facility] [address] [place] [address] Dr. Talia Plascencia RBC 5.56 106/ul Normal 4.70-6.10 [facility] Comment on above: Performed By: #### C SOLITARIO #### [facility] [address] [place] [address] Dr. Talia Plascencia WBC 6.9 103/ul Normal 4.0-11.0 [facility] Comment on above: Performed By: #### C SOLITARIO #### [facility] [address] [place] [address] Dr. Talia Plascencia CBC AUTO DIFFon 04-26-2022 BASO # 0.0 103/ul Normal 0.0-0.1 [facility] Comment on above: Performed By: #### C BC #### [facility] [address] [place] [address] Dr. Talia Plascencia Basophils/100 WBC (Bld) 0.4 % Normal 0.2-2.[address] [facility] Comment on above: Performed By: #### C BC #### [facility] [address] [place] [address] Dr. Talia Plascencia EO # 0.3 103/ul Normal 0.0-0.7 [facility] Comment on above: Performed By: #### C BC #### [facility] [address] [place] [address] Dr. Talia Plascencia Eosinophils/100 WBC (Bld) 4.4 % Normal 0.9-7.0 [facility] Comment on above: Performed By: #### C BC #### [facility] [address] [place] [address] Dr. Talia Plascencia Erythrocyte distribution width (RBC) [Ratio] 15.1 % Critically high 11.0-15.0 [facility] Comment on above: Performed By: #### C BC #### [facility] [address] [place] [address] Dr. Talia Plascencia Hematocrit (Bld) [Volume fraction] 42.0 % Normal 42.0-54.0 [facility] Comment on above: Performed By: #### C BC #### [facility] [address] [place] [address] Dr. Talia Plascencia Hemoglobin (Bld) [Mass/Vol] 14.2 g/dL Normal 14.0-18.0 [facility] Comment on above: Performed By: #### C BC #### [facility] [address] [place] [address] Dr. Talia Plascencia IG # 0.02 10e3/ul Normal 0.00-0.03 [facility] Comment on above: Performed By: #### C BC #### [facility] [address] [place] [address] Dr. Talia Plascencia IG % 0.3 % Normal 0.0-0.5 [facility] Comment on above: Performed By: #### C BC #### [facility] [address] [place] [address] Dr. Talia Plascencia LYMPH # 1.1 103/ul Critically low 1.2-3.8 [facility] Comment on above: Performed By: #### C BC #### [facility] [address] [place] [address] Dr. Talia Plascencia Lymphocytes/100 WBC (Bld) 14.5 % Critically low 20.5-60.0 [facility] Comment on above: Performed By: #### C BC #### [facility] [address] [place] [address] Dr. Talia Plascencia MANUAL DIFF REQ NO Normal [facility] Comment on above: Performed By: #### C BC #### [facility] [address] [place] [address] Dr. Talia Plascencia MCH (RBC) [Entitic mass] 26.4 pg Normal 25.9-34.0 [facility] Comment on above: Performed By: #### C BC #### [facility] [address] [place] [address] Dr. Talia Plascencia MCHC (RBC) [Mass/Vol] 33.8 g/dL Normal 29.9-35.2 [facility] Comment on above: Performed By: #### C BC #### [facility] [address] [place] [address] Dr. Talia Plascencia MCV (RBC) [Entitic vol] 78.2 fL Critically low 80.0-94.0 [facility] Comment on above: Performed By: #### C BC #### [facility] [address] [place] [address] Dr. Talia Plascencia MONO # 0.5 103/ul Normal 0.3-0.8 [facility] Comment on above: Performed By: #### C BC #### [facility] [address] [place] [address] Dr. Talia Plascencia Monocytes/100 WBC (Bld) 6.8 % Normal 1.7-12.0 [facility] Comment on above: Performed By: #### C BC #### [facility] [address] [place] [address] Dr. Talia Plascencia NEUT # 5.6 103/ul Normal 1.4-6.[address] [facility] Comment on above: Performed By: #### C BC #### [facility] [address] [place] [address] Dr. Talia Plascencia Neutrophils/100 WBC (Bld) 73.6 % Normal 43.0-75.[address] [facility] Comment on above: Performed By: #### C BC #### [facility] [address] [address] [address] Talia Plascencia Platelet mean volume (Bld) [Entitic vol] 10.7 fL Normal 9.5-13.5 [facility] Comment on above: Performed By: #### C BC #### [facility] [address] [address] [address] Talia Plascencia PLT 182 103/ul Normal 150-450 [facility] Comment on above: Performed By: #### C BC #### [facility] [address] [address] [address] Talia Plascencia RBC 5.37 106/ul Normal 4.70-6.10 [facility] Comment on above: Performed By: #### C BC #### [facility] [address] [place] [address] Dr. Talia Plascencia WBC 7.7 103/ul Normal 4.0-11.0 [facility] Comment on above: Performed By: #### C BC #### [facility] [address] [address] [address] Talia Plascencia CRPon 04-26-2022 CRP 11.2 mg/dL Critically high <=1.0 [facility] Comment on above: Performed By: #### C BCMAN #### [facility] [address] [place] [address] Dr. Talia Plascencia POINT OF CARE GLUCOSEon 04-07 Glucose [Mass/Vol] 135 mg/dL Critically high 74-106 [facility] Comment on above: Performed By: #### P OCGLUC #### [facility] [address] [address] [address] Talia Plascencia PROF 14(COMP METB)on 022 Albumin [Mass/Vol] 3.2 g/dL Critically low 3.4-5.0 [facility] Comment on above: Performed By: #### I NFLUAB #### [facility] [address] [place] [address] Dr. Talia Plascencia Albumin/Globulin [Mass ratio] 0.8 {ratio} Normal [facility] Comment on above: Performed By: #### I NFLUAB #### [facility] [address] [place] [address] Dr. Talia Plascencia ALP [Catalytic activity/Vol] 61 U/L Normal 46-116 [facility] Comment on above: Performed By: #### I NFLUAB #### [facility] [address] [address] [address] Talia Plascencia ALT [Catalytic activity/Vol] 25 U/L Normal 16-63 [facility] Comment on above: Performed By: #### I NFLUAB #### [facility] [address] [place] [address] Dr. Talia Plascencia Anion gap [Moles/Vol] 15.6 mmol/L Normal [facility] Comment on above: Performed By: #### I NFLUAB #### [facility] [address] [place] [address] Dr. Talia Plascencia AST [Catalytic activity/Vol] 31 U/L Normal 15-37 [facility] Comment on above: Performed By: #### I NFLUAB #### [facility] [address] [place] [address] Dr. Talia Plascencia Bilirubin [Mass/Vol] 0.6 mg/dL Normal 0.2-1.0 [facility] Comment on above: Performed By: #### I NFLUAB #### [facility] [address] [place] [address] Dr. Talia Plascencia Calcium [Mass/Vol] 8.7 mg/dL Normal 8.5-10.1 [facility] Comment on above: Performed By: #### I NFLUAB #### [facility] [address] [place] [address] Dr. Talia Plascencia Chloride [Moles/Vol] 99 mmol/L Normal 98-107 [facility] Comment on above: Performed By: #### I NFLUAB #### [facility] [address] [place] [address] Dr. Tlaia Plascencia CO2 [Moles/Vol] 22.6 mmol/L Normal 21.0-32.0 [facility] Comment on above: Performed By: #### I NFLUAB #### [facility] [address] [address] [address] Talia Plascencia Creatinine [Mass/Vol] 1.06 mg/dL Normal 0.70-1.30 [facility] Comment on above: Performed By: #### I NFLUAB #### [facility] [address] [address] [address] Talia Plascencia EGFR-AF NEPALESE >60 Normal >=60 [facility] Comment on above: Performed By: #### I NFLUAB #### [facility] [address] [address] [address] Talia Plascencia EGFR-NON AF NEPALESE >60 Normal >=60 [facility] Comment on above: Performed By: #### I NFLUAB #### [facility] [address] [address] [address] Talia Plascencia Globulin (S) [Mass/Vol] 3.8 g/dL Normal [facility] Comment on above: Performed By: #### I NFLUAB #### [facility] [address] [address] [address] Talia Plascencia Glucose [Mass/Vol] 136 mg/dL Critically high 74-106 [facility] Comment on above: Performed By: #### I NFLUAB #### [facility] [address] [address] [address] Talia Plascencia Potassium [Moles/Vol] 4.2 mmol/L Normal 3.5-5.1 [facility] Comment on above: Performed By: #### I NFLUAB #### [facility] [address] [address] [address] Talia Plascencia Protein [Mass/Vol] 7.0 g/dL Normal 6.4-8.2 [facility] Comment on above: Performed By: #### I NFLUAB #### [facility] [address] [address] [address] Talia Plascencia Sodium [Moles/Vol] 133 mmol/L Critically low 136-145 [facility] Comment on above: Performed By: #### I NFLUAB #### [facility] [address] [place] [address] Dr. Talia Plascencia Urea nitrogen [Mass/Vol] 15.0 mg/dL Normal 7.0-18.0 [facility] Comment on above: Performed By: #### I NFLUAB #### [facility] [address] [place] [address] Dr. Taila Plascencia Urea nitrogen/Creatinine [Mass ratio] 14.2 mg/mg Normal [facility] Comment on above: Performed By: #### I NFLUAB #### [facility] [address] [place] [address] Dr. Talia Plascencia C. DIFF PCRon 04-25-2022 C. DIFFICILE PCR Negative Normal NEGATIVE [facility] Comment on above: Performed By: #### P OCGLUC #### [facility] [address] [place] [address] Dr. Talia Plascencia CBC AUTO DIFFon 04-25-2022 BASO # 0.0 103/ul Normal 0.0-0.1 [facility] Comment on above: Performed By: #### P OCGLUC #### [facility] [address] [place] [address] Dr. Talia Plascencia Basophils/100 WBC (Bld) 0.3 % Normal 0.2-2.0 [facility] Comment on above: Performed By: #### P OCGLUC #### [facility] [address] [place] [address] Dr. Talia Plascencia EO # 0.2 103/ul Normal 0.0-0.7 [facility] Comment on above: Performed By: #### P OCGLUC #### [facility] [address] [place] [address] Dr. Talia Plascencia Eosinophils/100 WBC (Bld) 2.9 % Normal 0.9-7.0 [facility] Comment on above: Performed By: #### P OCGLUC #### [facility] [address] [place] [address] Dr. Talia Plascencia Erythrocyte distribution width (RBC) [Ratio] 14.8 % Normal 11.0-15.0 [facility] Comment on above: Performed By: #### P OCGLUC #### [facility] [address] [place] [address] Dr. Talia Plascencia Hematocrit (Bld) [Volume fraction] 40.0 % Critically low 42.0-54.0 [facility] Comment on above: Performed By: #### P OCGLUC #### [facility] [address] [place] [address] Dr. Talia Plascencia Hemoglobin (Bld) [Mass/Vol] 13.5 g/dL Critically low 14.0-18.0 [facility] Comment on above: Performed By: #### P OCGLUC #### [facility] [address] [place] [address] Dr. Talia Plascencia IG # 0.02 10e3/ul Normal 0.00-0.03 [facility] Comment on above: Performed By: #### P OCGLUC #### [facility] [address] [place] [address] Dr. Talia Plascencia IG % 0.3 % Normal 0.0-0.5 [facility] Comment on above: Performed By: #### P OCGLUC #### [facility] [address] [place] [address] Dr. Taila Plascencia LYMPH # 0.8 103/ul Critically low 1.2-3.8 [facility] Comment on above: Performed By: #### P OCGLUC #### [facility] [address] [place] [address] Dr. Talia Plascencia Lymphocytes/100 WBC (Bld) 11.5 % Critically low 20.5-60.0 [facility] Comment on above: Performed By: #### P OCGLUC #### [facility] [address] [place] [address] Dr. Talia Plascencia MANUAL DIFF REQ NO Normal [facility] Comment on above: Performed By: #### P OCGLUC #### [facility] [address] [place] [address] Dr. Talia Plascencia MCH (RBC) [Entitic mass] 26.3 pg Normal 25.9-34.0 [facility] Comment on above: Performed By: #### P OCGLUC #### [facility] [address] [place] [address] Dr. Talia Plascencia MCHC (RBC) [Mass/Vol] 33.8 g/dL Normal 29.9-35.2 [facility] Comment on above: Performed By: #### P OCGLUC #### [facility] [address] [place] [address] Dr. Talia Plascencia MCV (RBC) [Entitic vol] 78.0 fL Critically low 80.0-94.0 [facility] Comment on above: Performed By: #### P OCGLUC #### [facility] [address] [place] [address] Dr. Talia Plascencia MONO # 0.6 103/ul Normal 0.3-0.8 [facility] Comment on above: Performed By: #### P OCGLUC #### [facility] [address] [place] [address] Dr. Talia Plascencia Monocytes/100 WBC (Bld) 9.1 % Normal 1.7-12.0 [facility] Comment on above: Performed By: #### P OCGLUC #### [facility] [address] [place] [address] Dr. Talia Plascencia NEUT # 5.2 103/ul Normal 1.4-6.5 [facility] Comment on above: Performed By: #### P OCGLUC #### [facility] [address] [place] [address] Dr. Talia Plascencia Neutrophils/100 WBC (Bld) 75.9 % Critically high 43.0-75.0 [facility] Comment on above: Performed By: #### P OCGLUC #### [facility] [address] [place] [address] Dr. Talia Plascencia Platelet mean volume (Bld) [Entitic vol] 10.7 fL Normal 9.5-13.5 [facility] Comment on above: Performed By: #### P OCGLUC #### [facility] [address] [place] [address] Dr. Talia Plascencia PLT 149 103/ul Critically low 150-450 [facility] Comment on above: Performed By: #### P OCGLUC #### [facility] [address] [place] [address] Dr. Talia Plascencia RBC 5.13 106/ul Normal 4.70-6.10 [facility] Comment on above: Performed By: #### P OCGLUC #### [facility] [address] [place] [address] Dr. Talia Plascencia WBC 6.8 103/ul Normal 4.0-11.0 [facility] Comment on above: Performed By: #### P OCGLUC #### [facility] [address] [place] [address] Dr. Talia Plascencia CRPon 04-25-2022 CRP 28.2 mg/dL Critically high <=1.0 [facility] Comment on above: Performed By: #### I NFLUAB #### [facility] [address] [place] [address] Dr. Talia Plascencia ER URINE PROFILEon Bilirubin Ql (U) Negative Normal NEGATIVE [facility] Comment on above: Performed By: #### U MICRO, ERUR #### [facility] [address] [place] [address] Dr. Talia Plascencia Clarity (U) CLEAR Normal CLEAR [facility] Comment on above: Performed By: #### U MICRO, ERUR #### [facility] [address] [place] [address] Dr. Talia Plascencia Color (U) YELLOW Normal YELLOW [facility] Comment on above: Performed By: #### U MICRO, ERUR #### [facility] [address] [place] [address] Dr. Talia Plascencia ERUAHD A micrscopic examination will be performed if indicated. Normal [facility] Comment on above: Performed By: #### U MICRO, ERUR #### [facility] [address] [place] [address] Dr. Talia Plascencia Glucose Ql (U) >1000 Abnormal NEGATIVE [facility] Comment on above: Performed By: #### U MICRO, ERUR #### [facility] [address] [address] [address] Talia Plascencia Hemoglobin Ql (U) TRACE-INTACT Abnormal NEGATIVE [facility] Comment on above: Performed By: #### U MICRO, ERUR #### [facility] [address] [address] [address] Talia Plascencia Ketones Ql (U) TRACE Abnormal NEGATIVE [facility] Comment on above: Performed By: #### U MICRO, ERUR #### [facility] [address] [place] [address] Dr. Talia Plascencia LEUKOCYTES Negative Normal NEGATIVE [facility] Comment on above: Performed By: #### U MICRO, ERUR #### [facility] [address] [place] [address] Dr. Talia Plascencia Nitrite Ql (U) Negative Normal NEGATIVE [facility] Comment on above: Performed By: #### U MICRO, ERUR #### [facility] [address] [place] [address] Dr. Talia Plascencia pH (U) 6.0 [pH] Normal 5-9 [facility] Comment on above: Performed By: #### U MICRO, ERUR #### [facility] [address] [place] [address] Dr. Talia Plascencia SPEC GRAVITY 1.015 Normal 1.005-<=1.025 [facility] Comment on above: Performed By: #### U MICRO, ERUR #### [facility] [address] [place] [address] Dr. Talia Plascencia UA PROTEIN Negative Normal NEGATIVE/ TRACE [facility] Comment on above: Performed By: #### U MICRO, ERUR #### [facility] [address] [place] [address] Dr. Talia Plascencia UR MICRO IND INDICATED Normal [facility] Comment on above: Performed By: #### U MICRO, ERUR #### [facility] [address] [place] [address] Dr. Talia Plascencia Urobilinogen Qn (U) 1.0 {Suellen'U}/dL Normal 0.2 - 1. 0 [facility] Comment on above: Performed By: #### U MICRO, ERUR #### [facility] [address] [place] [address] Dr. Talia Plascencia POINT OF CARE GLUCOSEon 04-07 Glucose [Mass/Vol] 148 mg/dL Critically high 74-106 [facility] [facility] Comment on above: Performed By: #### I NFLUAB #### [facility] [address] [place] [address] Dr. Talia Plascencia Glucose [Mass/Vol] 199 mg/dL Critically high 74-106 [facility] Comment on above: Performed By: #### C BC #### [facility] [address] [place] [address] Dr. Talia Plascencia Glucose [Mass/Vol] 176 mg/dL Critically high 74-106 [facility] Comment on above: Performed By: #### I NFLUAB #### [facility] [address] [place] [address] Dr. Talia Plascencia PROF 14(COMP METB)on 022 Albumin [Mass/Vol] 2.9 g/dL Critically low 3.4-5.0 [facility] Comment on above: Performed By: #### I NFLUAB #### [facility] [address] [place] [address] Dr. Talia Plascencia Albumin/Globulin [Mass ratio] 0.8 {ratio} Normal [facility] Comment on above: Performed By: #### I NFLUAB #### [facility] [address] [place] [address] Dr. Talia Plascencia ALP [Catalytic activity/Vol] 58 U/L Normal 46-116 [facility] Comment on above: Performed By: #### I NFLUAB #### [facility] [address] [place] [address] Dr. Talia Plascencia ALT [Catalytic activity/Vol] 20 U/L Normal 16-63 [facility] Comment on above: Performed By: #### I NFLUAB #### [facility] [address] [place] [address] Dr. Talia Plascencia Anion gap [Moles/Vol] 12.7 mmol/L Normal [facility] Comment on above: Performed By: #### I NFLUAB #### [facility] [address] [place] [address] Dr. Talia Plascencia AST [Catalytic activity/Vol] 25 U/L Normal 15-37 [facility] Comment on above: Performed By: #### I NFLUAB #### [facility] [address] [place] [address] Dr. Talia Plascencia Bilirubin [Mass/Vol] 0.7 mg/dL Normal 0.2-1.0 [facility] Comment on above: Performed By: #### I NFLUAB #### [facility] [address] [place] [address] Dr. Talia Plascencia Calcium [Mass/Vol] 8.1 mg/dL Critically low 8.5-10.1 [facility] Comment on above: Performed By: #### I NFLUAB #### [facility] [address] [place] [address] Dr. Talia Plascencia Chloride [Moles/Vol] 101 mmol/L Normal 98-107 [facility] Comment on above: Performed By: #### I NFLUAB #### [facility] [address] [place] [address] Dr. Talia Plascencia CO2 [Moles/Vol] 22.3 mmol/L Normal 21.0-32.0 [facility] Comment on above: Performed By: #### I NFLUAB #### [facility] [address] [place] [address] Dr. Talia Plascencia Creatinine [Mass/Vol] 1.13 mg/dL Normal 0.70-1.[address] [facility] Comment on above: Performed By: #### I NFLUAB #### [facility] [address] [place] [address] Dr. Talia Plascencia EGFR-AF NEPALESE >60 Normal >=60 [facility] Comment on above: Performed By: #### I NFLUAB #### [facility] [address] [place] [address] Dr. Talia Plascencia EGFR-NON AF NEPALESE >60 Normal >=60 [facility] Comment on above: Performed By: #### I NFLUAB #### [facility] [address] [place] [address] Dr. Talia Plascencia Globulin (S) [Mass/Vol] 3.6 g/dL Normal [facility] Comment on above: Performed By: #### I NFLUAB #### [facility] [address] [place] [address] Dr. Talia Plascencia Glucose [Mass/Vol] 148 mg/dL Critically high 74-106 [facility] Comment on above: Performed By: #### I NFLUAB #### [facility] [address] [place] [address] Dr. Talia Plascencia Potassium [Moles/Vol] 4.0 mmol/L Normal 3.5-5.1 [facility] Comment on above: Performed By: #### I NFLUAB #### [facility] [address] [place] [address] Dr. Talia Plascencia Protein [Mass/Vol] 6.5 g/dL Normal 6.4-8.2 [facility] Comment on above: Performed By: #### I NFLUAB #### [facility] [address] [place] [address] Dr. Talia Plascencia Sodium [Moles/Vol] 132 mmol/L Critically low 136-145 [facility] Comment on above: Performed By: #### I NFLUAB #### [facility] [address] [place] [address] Dr. Talia Plascencia Urea nitrogen [Mass/Vol] 19.0 mg/dL Critically high 7.0-18.0 [facility] Comment on above: Performed By: #### I NFLUAB #### [facility] [address] [place] [address] Dr. Taila Plascencia Urea nitrogen/Creatinine [Mass ratio] 16.8 mg/mg Normal [facility] Comment on above: Performed By: #### I NFLUAB #### [facility] [address] [place] [address] Dr. Talia Plascencia URINE MICROSCOPIC ONLYon BACTERIA NONE SEEN Normal NONE SEEN [facility] Comment on above: Performed By: #### C VDTBH #### [facility] [address] [place] [address] Dr. Talia Plascencia Bacteria identified Cx Nom (U) NOT INDICATED Normal [facility] Comment on above: Performed By: #### C VDTBH #### [facility] [address] [place] [address] Dr. Talia Plascencia CAST NONE SEEN Normal NONE SEEN [facility] Comment on above: Performed By: #### C VDTBH #### [facility] [address] [place] [address] Dr. Talia Plascencia Crystals LM Nom (Urine sed) SEEN Abnormal NONE SEEN [facility] Comment on above: Performed By: #### C VDTBH #### [facility] [address] [place] [address] Dr. Talia Plascencia Epithelial cells LM Ql (Urine sed) NONE SEEN Normal NONE SEEN /RARE [facility] Comment on above: Performed By: #### C VDTBH #### [facility] [address] [place] [address] Dr. Talia Plascencia MUCOUS NONE SEEN Normal NONE SEEN [facility] Comment on above: Performed By: #### C VDTBH #### [facility] [address] [place] [address] Dr. Talia Plascencia RBC NONE SEEN Abnormal 0-[address] [facility] Comment on above: Performed By: #### C VDTBH #### [facility] [address] [place] [address] Dr. Talia Plascencia URIC ACID CRYSTALS FEW Normal [facility] Comment on above: Performed By: #### C VDTBH #### [facility] [address] [place] [address] Dr. Talia Plascencia WBC NONE SEEN Normal NONE SEEN [facility] Comment on above: Performed By: #### C VDTBH #### [facility] [address] [place] [address] Dr. Talia Plascencia CBC W MANUAL DIFFon 08-19-20 22 ATYPICAL LYMPH # Normal [facility] Comment on above: Performed By: #### C VDTBH #### [facility] [address] [place] [address] Dr. Talia Plascencia ATYPICAL LYMPH % Normal [facility] Comment on above: Performed By: #### C VDTBH #### [facility] [address] [place] [address] Dr. Talia Plascencia BAND # 0.2 103/ul Normal 0.0-0.3 [facility] Comment on above: Performed By: #### C VDTBH #### [facility] [address] [place] [address] Dr. Talia Plascencia BAND % 2 % Normal 0-5 [facility] Comment on above: Performed By: #### C VDTBH #### [facility] [address] [place] [address] Dr. Talia Plascencia BASOM # 0.00 103/ul Normal 0.00-0.10 [facility] Comment on above: Performed By: #### C VDTBH #### [facility] [address] [place] [address] Dr. Talia Plascencia BASOM % 0.0 % Critically low 0.2-2.0 [facility] Comment on above: Performed By: #### C VDTBH #### [facility] [address] [place] [address] Dr. Talia Plascencia BLAST # Normal [facility] Comment on above: Performed By: #### C VDTBH #### [facility] [address] [place] [address] Dr. Talia Plascencia BLAST % Normal [facility] Comment on above: Performed By: #### C VDTBH #### [facility] [address] [place] [address] Dr. Talia Plascencia CORRECTED WBC Normal 4.0-11.0 [facility] Comment on above: Performed By: #### C VDTBH #### [facility] [address] [place] [address] Dr. Talia Plascencia EOS # 0.00 103/ul Normal 0.00-0.70 [facility] Comment on above: Performed By: #### C VDTBH #### [facility] [address] [address] [address] Talia Plascencia EOS% 0.0 % Critically low 0.9-7.0 [facility] Comment on above: Performed By: #### C VDTBH #### [facility] [address] [address] [address] Talia Plascencia HCT 40.0 % Critically low 42.0-54.0 [facility] Comment on above: Performed By: #### C VDTBH #### [facility] [address] [address] [address] Talia Plascencia HGB 13.6 g/dl Critically low 14.0-18.0 [facility] Comment on above: Performed By: #### C VDTBH #### [facility] [address] [place] [address] Dr. Talia Plascencia LYMPHM # 0.61 103/ul Critically low 1.20-3.80 [facility] Comment on above: Performed By: #### C VDTBH #### [facility] [address] [address] [address] Talia Plascencia LYMPHM% 6.0 % Critically low 20.5-60.0 [facility] Comment on above: Performed By: #### C VDTBH #### [facility] [address] [address] [address] Talia Plascencia MCH 26.5 pg Normal 25.9-34.0 [facility] Comment on above: Performed By: #### C VDTBH #### [facility] [address] [address] [address] Talia Plascencia MCHC 34.0 g/dl Normal 29.9-35.2 [facility] Comment on above: Performed By: #### C VDTBH #### [facility] [address] [place] [address] Dr. Talia Plascencia MCV 78.0 fL Critically low 80.0-94.0 [facility] Comment on above: Performed By: #### C VDTBH #### [facility] [address] [address] [address] Talia Plascencia METAMYELOCYTE # Normal [facility] Comment on above: Performed By: #### C VDTBH #### [facility] [address] [address] [address] Talia Plascencia METAMYELOCYTE % Normal [facility] Comment on above: Performed By: #### C VDTBH #### [facility] [address] [place] [address] Dr. Talia Plascencia MONOM# 0.71 103/ul Normal 0.30-0.80 [facility] Comment on above: Performed By: #### C VDTBH #### [facility] [address] [place] [address] Dr. Talia Plascencia MONOM% 7.0 % Normal 1.7-12.0 [facility] Comment on above: Performed By: #### C VDTBH #### [facility] [address] [place] [address] Dr. Talia Plascencia MPV 10.2 fL Normal 9.5-13.5 [facility] Comment on above: Performed By: #### C VDTBH #### [facility] [address] [place] [address] Dr. Talia Plascencia MYELOCYTE # Normal [facility] Comment on above: Performed By: #### C VDTBH #### [facility] [address] [place] [address] Dr. Talia Plascencia MYELOCYTE % Normal [facility] Comment on above: Performed By: #### C VDTBH #### [facility] [address] [place] [address] Dr. Talia Plascencia NRBC Normal [facility] Comment on above: Performed By: #### C VDTBH #### [facility] [address] [place] [address] Dr. Talia Plascencia PLT 141 103/ul Critically low 150-450 [facility] Comment on above: Performed By: #### C VDTBH #### [facility] [address] [address] [address] Talia Plascencia RBC 5.13 106/ul Normal 4.70-6.10 [facility] Comment on above: Performed By: #### C VDTBH #### [facility] [address] [address] [address] Talia Plascencia RDW 14.7 % Normal 11.0-15.0 [facility] Comment on above: Performed By: #### C VDTBH #### [facility] [address] [address] [address] Talia Plascencia SEG # 8.67 103/ul Critically high 1.40-6.50 [facility] Comment on above: Performed By: #### C VDTBH #### [facility] [address] [address] [address] Talia Plascencia SEG % 85.0 % Critically high 43.0-75.0 [facility] Comment on above: Performed By: #### C VDTBH #### [facility] [address] [address] [address] Talia Plascencia WBC 10.2 103/ul Normal 4.0-11.0 [facility] Comment on above: Performed By: #### C VDTBH #### [facility] [address] [address] [address] Talia Plascencia CRPon 04-24-2022 CRP [Mass/Vol] mg/L Critically high <=1.0 [facility] Comment on above: Performed By: #### C VDTBH #### [facility] [address] [address] [address] Talia Plascencia POINT OF CARE GLUCOSEon 04-06 Glucose [Mass/Vol] 144 mg/dL Critically high 74-106 [facility] Comment on above: Performed By: #### C BCANALI #### [facility] [address] [address] [address] Talia Plascencia Glucose [Mass/Vol] 123 mg/dL Critically high 74-106 [facility] Comment on above: Performed By: #### I NFLUAB #### [facility] [address] [address] [address] Talia Plascencia Glucose [Mass/Vol] 222 mg/dL Critically high 74-106 [facility] Comment on above: Performed By: #### P OCGLUC #### [facility] [address] [address] [address] Talia Plascencia Glucose [Mass/Vol] 174 mg/dL Critically high 74-106 [facility] Comment on above: Performed By: #### C BC #### [facility] [address] [place] [address] Dr. Talia Plascencia PROF 14(COMP METB)on 022 Albumin [Mass/Vol] 2.9 g/dL Critically low 3.4-5.0 [facility] Comment on above: Performed By: #### C BCMAN #### [facility] [address] [place] [address] Dr. Talia Plascencia Albumin/Globulin [Mass ratio] 0.9 {ratio} [facility] Comment on above: Performed By: #### C CONSTANTINEMAN #### [facility] [address] [place] [address] Dr. Talia Plascencia ALP [Catalytic activity/Vol] 55 U/L Normal 46-116 [facility] Comment on above: Performed By: #### C CONSTANTINEMAN #### [facility] [address] [place] [address] Dr. Talia Plascencia ALT [Catalytic activity/Vol] 19 U/L Normal 16-63 [facility] Comment on above: Performed By: #### C BCMAN #### [facility] [address] [place] [address] Dr. Talia Plascencia Anion gap [Moles/Vol] 16.2 mmol/L Normal [facility] Comment on above: Performed By: #### C CONSTANTINEMAN #### [facility] [address] [place] [address] Dr. Talia Plascencia AST [Catalytic activity/Vol] 32 U/L Normal 15-37 [facility] Comment on above: Performed By: #### C CONSTANTINEMAN #### [facility] [address] [address] [address] Talia Plascencia Bilirubin [Mass/Vol] 1.3 mg/dL Critically high 0.2-1.0 [facility] Comment on above: Performed By: #### C BCMAN #### [facility] [address] [address] [address] Talia Plascencia Calcium [Mass/Vol] 7.8 mg/dL Critically low 8.5-10.1 [facility] Comment on above: Performed By: #### C BCMAN #### [facility] [address] [address] [address] Talia Plascencia Chloride [Moles/Vol] 99 mmol/L Normal 98-107 [facility] Comment on above: Performed By: #### C SOLITARIO #### [facility] [address] [place] [address] Dr. Talia Plascencia CO2 [Moles/Vol] 20.2 mmol/L Critically low 21.0-32.0 [facility] Comment on above: Performed By: #### C BCANALI #### [facility] [address] [address] [address] Talia Plascencia Creatinine [Mass/Vol] 1.34 mg/dL Critically high 0.70-1.30 [facility] Comment on above: Performed By: #### C SOLITARIO #### [facility] [address] [place] [address] Dr. Talia Plascecnia EGFR-AF NEPALESE >60 Normal >=60 [facility] Comment on above: Performed By: #### C BCMAN #### [facility] [address] [address] [address] Talia Plascencia EGFR-NON AF NEPALESE 54 mL/min/1.73m2 Critically low >=60 [facility] Comment on above: Performed By: #### C BCANALI #### [facility] [address] [address] [address] Talia Plascencia Globulin (S) [Mass/Vol] 3.4 g/dL Normal [facility] Comment on above: Performed By: #### C BCANALI #### [facility] [address] [address] [address] Talia Plascencia Glucose [Mass/Vol] 179 mg/dL Critically high 74-106 [facility] Comment on above: Performed By: #### C SOLITARIO #### [facility] [address] [place] [address] Dr. Talia Plascencia Potassium [Moles/Vol] 4.4 mmol/L Normal 3.5-5.1 [facility] Comment on above: Performed By: #### C SOLITARIO #### [facility] [address] [place] [address] Dr. Talia Plascencia Protein [Mass/Vol] 6.3 g/dL Critically low 6.4-8.2 [facility] Comment on above: Performed By: #### C SOLITARIO #### [facility] [address] [place] [address] Dr. Talia Plascencia Sodium [Moles/Vol] 131 mmol/L Critically low 136-145 [facility] Comment on above: Performed By: #### C SOLITARIO #### [facility] [address] [place] [address] Dr. Talia Plascencia Urea nitrogen [Mass/Vol] 25.0 mg/dL Critically high 7.0-18.0 [facility] Comment on above: Performed By: #### C SOLITARIO #### [facility] [address] [place] [address] Dr. Talia Plascencia Urea nitrogen/Creatinine [Mass ratio] 18.7 mg/mg Normal [facility] Comment on above: Performed By: #### C SOLITARIO #### [facility] [address] [place] [address] Dr. Talia Plascencia BNPon 04-23-2022 Natriuretic peptide B (Bld) [Mass/Vol] 346.0 pg/mL Normal <=900.0 [facility] Comment on above: Performed By: #### C SOLITARIO #### [facility] [address] [place] [address] Dr. Talia Plascencia CBC W MANUAL DIFFon 04-23-20 22 ATYPICAL LYMPH # Normal [facility] Comment on above: Performed By: #### C SOLITARIO #### [facility] [address] [place] [address] Dr. Talia Plascencia ATYPICAL LYMPH % Normal [facility] Comment on above: Performed By: #### C SOLITARIO #### [facility] [address] [place] [address] Dr. Talia Plascencia BAND # Normal 0.0-0.3 [facility] Comment on above: Performed By: #### C SOLITARIO #### [facility] [address] [place] [address] Dr. Talia Plascencia BAND % Normal 0-5 [facility] Comment on above: Performed By: #### C SOLITARIO #### [facility] [address] [place] [address] Dr. Talia Plascencia BASOM # 0.00 103/ul Normal 0.00-0.10 [facility] Comment on above: Performed By: #### C SOLITARIO #### [facility] [address] [place] [address] Dr. Talia Plascencia BASOM % 0.0 % Critically low 0.2-2.0 [facility] Comment on above: Performed By: #### C SOLITARIO #### [facility] [address] [place] [address] Dr. Talia Plascencia BLAST # Normal [facility] Comment on above: Performed By: #### C SOLITARIO #### [facility] [address] [place] [address] Dr. Talia Plascencia BLAST % Normal [facility] Comment on above: Performed By: #### C SOLITARIO #### [facility] [address] [place] [address] Dr. Talia Plascencia CORRECTED WBC Normal 4.0-11.0 [facility] Comment on above: Performed By: #### C SOLITARIO #### [facility] [address] [place] [address] Dr. Talia Plascencia EOS # 0.00 103/ul Normal 0.00-0.70 [facility] Comment on above: Performed By: #### C SOLITARIO #### [facility] [address] [address] [address] Talia Plascencia EOS% 0.0 % Critically low 0.9-7.0 [facility] Comment on above: Performed By: #### C SOLITARIO #### [facility] [address] [place] [address] Dr. Talia Plascencia HCT 45.5 % Normal 42.0-54.0 [facility] Comment on above: Performed By: #### C SOLITARIO #### [facility] [address] [place] [address] Dr. Talia Plascencia HGB 15.5 g/dl Normal 14.0-18.0 [facility] Comment on above: Performed By: #### C SOLITARIO #### [facility] [address] [place] [address] Dr. Talia Plascencia LYMPHM # 0.33 103/ul Critically low 1.20-3.80 [facility] Comment on above: Performed By: #### C SOLITARIO #### [facility] [address] [place] [address] Dr. Talia Plascencia LYMPHM% 2.0 % Critically low 20.5-60.0 [facility] Comment on above: Performed By: #### C SOLITARIO #### [facility] [address] [place] [address] Dr. Talia Plascencia MCH 26.3 pg Normal 25.9-34.0 [facility] Comment on above: Performed By: #### C SOLITARIO #### [facility] [address] [place] [address] Dr. Talia Plascencia MCHC 34.1 g/dl Normal 29.9-35.[address] [facility] Comment on above: Performed By: #### C SOLITARIO #### [facility] [address] [place] [address] Dr. Talia Plascencia MCV 77.1 fL Critically low 80.0-94.0 [facility] Comment on above: Performed By: #### C SOLITARIO #### [facility] [address] [place] [address] Dr. Talia Plascencia METAMYELOCYTE # Normal [facility] Comment on above: Performed By: #### C SOLITARIO #### [facility] [address] [address] [address] Talia Plascencia METAMYELOCYTE % Normal [facility] Comment on above: Performed By: #### C BCANALI #### [facility] [address] [address] [address] Talia Plascencia MONOM# 1.00 103/ul Critically high 0.30-0.80 [facility] Comment on above: Performed By: #### C SOLITARIO #### [facility] [address] [address] [address] Talia Plascencia MONOM% 6.0 % Normal 1.7-12.0 [facility] Comment on above: Performed By: #### C SOLITARIO #### [facility] [address] [place] [address] Dr. Talia Plascencia MPV 10.9 fL Normal 9.5-13.5 [facility] Comment on above: Performed By: #### C SOLITARIO #### [facility] [address] [address] [address] Talia Plascencia MYELOCYTE # Normal [facility] Comment on above: Performed By: #### C SOLITARIO #### [facility] [address] [place] [address] Dr. Talia Plascencia MYELOCYTE % Normal [facility] Comment on above: Performed By: #### C SOLITARIO #### [facility] [address] [place] [address] Dr. Talia Plascencia NRBC Normal [facility] Comment on above: Performed By: #### C SOLITARIO #### [facility] [address] [address] [address] Talia Plascencia PLT 177 103/ul Normal 150-[address] [facility] Comment on above: Performed By: #### C SOLITARIO #### [facility] [address] [address] [address] Talia Plascencia RBC 5.90 106/ul Normal 4.70-6.10 [facility] Comment on above: Performed By: #### C SOLITARIO #### [facility] [address] [place], [place] [address] Dr. Talia Plascencia RDW 14.6 % Normal 11.0-15.0 [facility] Comment on above: Performed By: #### C BCMAN #### [facility] [address] [place], [place] [address] Dr. Talia Plascencia SEG # 15.27 103/ul Critically high 1.40-6.50 [facility] Comment on above: Performed By: #### C BCMAN #### [facility] [address] [place], [place] [address] Dr. Talia Plascencia SEG % 92.0 % Critically high 43.0-75.0 [facility] Comment on above: Performed By: #### C BCMAN #### [facility] [id number] Talia Plascencia WBC 16.6 103/ul Critically high 4.0-11.0 [facility] Comment on above: Performed By: #### C CONSTANTINEMAN #### [facility] [id number] Talia Plascencia CULTURE BLOODon 04-23-2022 Microscopic examination of blood, culture Culture Observations: NO GROWTH AT 5 DAYS. [address] [facility] Comment on above: Performed By: #### C VDTBH #### [facility] [id number] Talia Plascencia Covid-19 PCR (CVDTB)on 04-06 SARS-CoV-2 (COVID-19) RNA REKHA+probe Ql (Unsp spec) Not detected Normal NOT DETECTED [facility] Comment on above: Result Comment: When [...] for this test is supported by the Plant Technical Specialist of Health and Human Service's declaration that [...] used). Performed By: #### C BCMAN #### [facility] [address] [place] [address] Dr. Talia Plascencia LACTATE/LACTIC ACIDon 2021 Lactate [Moles/Vol] 1.2 mmol/L Normal 0.4-1.9 [facility] Comment on above: Performed By: #### I NFLUAB #### [facility] [address] [place] [address] Dr. Talia Plascencia Performed By: #### P OCGLUC #### [facility] [address] [place] [address] Dr. Talia Plascencia PH VENOUS BLOODon 04-23-2022 PCO2 VENOUS 35.1 mmHg Critically low 40.0-52.0 [facility] Comment on above: Performed By: #### P OCGLUC #### [facility] [address] [place] [address] Dr. Talia Plascencia pH VENOUS 7.419 Normal 7.330-7.430 [facility] Comment on above: Performed By: #### P OCGLUC #### [facility] [address] [place] [address] Dr. Talia Plascencia POINT OF CARE GLUCOSEon 04-06 Glucose [Mass/Vol] 154 mg/dL Critically high 74-106 [facility] Comment on above: Performed By: #### P OCGLUC #### [facility] [address] [place] [address] Dr. Talia Plascencia PROF 14(COMP METB)on 022 Albumin [Mass/Vol] 3.7 g/dL Normal 3.4-5.0 [facility] Comment on above: Performed By: #### C BCMAN #### [facility] [address] [place] [address] Dr. Talia Plascencia Albumin/Globulin [Mass ratio] 0.9 {ratio} Normal [facility] Comment on above: Performed By: #### C SOLITARIO #### [facility] [address] [place] [address] Dr. Talia Plascencia ALP [Catalytic activity/Vol] 72 U/L Normal 46-116 [facility] Comment on above: Performed By: #### C SOLITARIO #### [facility] [address] [place] [address] Dr. Talia Plascencia ALT [Catalytic activity/Vol] 20 U/L Normal 16-63 [facility] Comment on above: Performed By: #### C SOLITARIO #### [facility] [address] [place] [address] Dr. Talia Plascencia Anion gap [Moles/Vol] 16.0 mmol/L Normal [facility] Comment on above: Performed By: #### C SOLITARIO #### [facility] [address] [place] [address] Dr. Talia Plascencia AST [Catalytic activity/Vol] 29 U/L Normal 15-37 [facility] Comment on above: Performed By: #### C SOLITARIO #### [facility] [address] [place] [address] Dr. Talia Plascencia Bilirubin [Mass/Vol] 1.5 mg/dL Critically high 0.2-1.0 [facility] Comment on above: Performed By: #### C SOLITARIO #### [facility] [address] [place] [address] Dr. Talia Plascencia Calcium [Mass/Vol] 8.7 mg/dL Normal 8.5-10.1 [facility] Comment on above: Performed By: #### C SOLITARIO #### [facility] [address] [place] [address] Dr. Talia Plascencia Chloride [Moles/Vol] 93 mmol/L Critically low 98-107 [facility] Comment on above: Performed By: #### C SOLITARIO #### [facility] [address] [place] [address] Dr. Talia Plascencia CO2 [Moles/Vol] 21.4 mmol/L Normal 21.0-32.0 [facility] Comment on above: Performed By: #### C BCMAN #### [facility] [address] [address] [address] Talia Plascencia Creatinine [Mass/Vol] 1.61 mg/dL Critically high 0.70-1.30 [facility] Comment on above: Performed By: #### C BCMAN #### [facility] [address] [address] [address] Talia Plascencia EGFR-AF NEPALESE 53 mL/min/1.73m2 Critically low >=60 [facility] Comment on above: Performed By: #### C BCANALI #### [facility] [address] [place] [address] Dr. Talia Plascencia EGFR-NON AF NEPALESE 44 mL/min/1.73m2 Critically low >=60 [facility] Comment on above: Performed By: #### C BCANALI #### [facility] [address] [place] [address] Dr. Talia Plascencia Globulin (S) [Mass/Vol] 3.9 g/dL Normal [facility] Comment on above: Performed By: #### C BCANALI #### [facility] [address] [place] [address] Dr. Talia Plascencia Glucose [Mass/Vol] 182 mg/dL Critically high 74-106 [facility] Comment on above: Performed By: #### C BCANALI #### [facility] [address] [place] [address] Dr. Talia Plascencia Potassium [Moles/Vol] 4.4 mmol/L Normal 3.5-5.1 [facility] Comment on above: Performed By: #### C BCMAN #### [facility] [address] [place] [address] Dr. Talia Plascencia Protein [Mass/Vol] 7.6 g/dL Normal 6.4-8.2 [facility] Comment on above: Performed By: #### C BCMAN #### [facility] [address] [address] [address] Talia Plascencia Sodium [Moles/Vol] 126 mmol/L Critically low 136-[address] [facility] Comment on above: Performed By: #### C SOLITARIO #### [facility] [address] [place] [address] Dr. Talia Plascencia Urea nitrogen [Mass/Vol] 30.0 mg/dL Critically high 7.0-18.0 [facility] Comment on above: Performed By: #### C SOLITARIO #### [facility] [address] [place] [address] Dr. Talia Plascencia Urea nitrogen/Creatinine [Mass ratio] 18.6 mg/mg Normal [facility] Comment on above: Performed By: #### C SOLITARIO #### [facility] [address] [place] [address] Dr. Talia Plascencia PROTIMEon 04-23-2022 INR Coag (PPP) [Relative time] 1.08 {INR} Normal [facility] Comment on above: Performed By: #### C SMILEY #### [facility] [address] [place] [address] Dr. Talia Plascencia INR GUIDELINES SEE BELOW Normal [facility] Comment on above: Result Comment: WENDY RED INR: 2.0 - 3.0 CONDITIONS NOT LISTED BELOW 2.5 - 3.5 FOR PROSTHETIC HEART VALVE REPLACEMENT 2.5 - 3.5 RECURRENT THROMBOSIS Performed By: #### C ERICTBH #### [facility] [address] [place] [address] Dr. Talia Plascencia PT Coag (PPP) [Time] 11.6 s Normal 9.0-11.6 [facility] Comment on above: Performed By: #### C VDTBH #### [facility] [address] [place] [address] Dr. Talia Plascencia PTTon 04-23-2022 aPTT Coag (Bld) [Time] 32.2 s Normal 22.3-36.2 [facility] Comment on above: Performed By: #### C VDTBH #### [facility] [address] [place] [address] Dr. Talia Plascencia TROPONIN, HIGH SENSITIVITYon 04-23-2022 HSTROP 9.1 pg/mL Normal 4.0-76.1 [facility] Comment on above: Result Comment: CUT- OFF POINTS HAVE BEEN ESTABLISHED BASED ON THE FOURTH UNIVERSAL DEFINITIONS OF MYOCARDIAL INFARCTION. THE UPPER REFERENCE LIMIT (URL) OF TROPONIN, DEFINED THE 99TH PERCENTILE OF cTnI DISTRIBUTION IN A REFERENCE POPULATION, HAS BEEN CONFIRMED THE DECISION THRESHOLD FOR [place] DIAGNOSIS. Performed By: #### C [facility] #### [facility] [address] [address] [address] Talia Plascencia US YOAN DOP LEG RTon 04-23-20 22 US YOAN DOP LEG RT EXAM: US YOAN DOP LEG RT HISTORY: Deep venous thrombosis [...] by: TEVIN NAYAK Date: 2022-04-23 17:00 Normal [facility] ECHOCARDIO M/2D COMPLETEon 0 04-15-2022 ECHOCARDIO M/2D COMPLETE Patient: JOHNATHAN CORREA Exam Date: 04/15/2022 : 1960 Gender:M Ordering : DR LUIS JEFFREY M.D. Admission #: [id number] Family : Order #: [id number] CLICK HERE TO VIEW EXAM ECHOCARDIOGRAM REPORT [...] Galan M.D. on 04/15/2022 at 19:32 Normal [facility] BNPon 02-20-2022 Natriuretic peptide B (Bld) [Mass/Vol] 43.0 pg/mL Normal <=900.0 [facility] Comment on above: Performed By: #### B FIRE BATTALION CHIEF, CMP #### [facility] [address] [place] [address] Dr. Talia Plascencia GLYCOHEMOGLOBIN A1Con 2021 ADA RECOMMENDATION SEE BELOW Normal [facility] Comment on above: Result Comment: ADA RECOMMENDED LIMIT 4.0 - 6.0 ADA THERAPEUTIC TARGET < 7.0 ACTION SUGGESTED > 7.0 Performed By: #### A 1C #### [facility] [address] [place] [address] Dr. Talia Plascencia Glucose [Mass/Vol] 203 mg/dL Normal [facility] Comment on above: Performed By: #### A 1C #### [facility] [address] [place] [address] Dr. Talia Plascencia HbA1c (Bld) [Mass fraction] 8.7 % Critically high 4.5-6.2 [facility] Comment on above: Performed By: #### A 1C #### [facility] [address] [place] [address] Dr. Talia Plascencia PROF 14(COMP METB)on 022 Albumin [Mass/Vol] 3.9 g/dL Normal 3.4-5.0 [facility] Comment on above: Performed By: #### B FIRE BATTALION CHIEF, CMP #### [facility] [address] [address] [address] Talia Plascencia Albumin/Globulin [Mass ratio] 1.1 {ratio} Normal [facility] Comment on above: Performed By: #### B FIRE BATTALION CHIEF, CMP #### [facility] [address] [address] [address] Talia Plascencia ALP [Catalytic activity/Vol] 74 U/L Normal 46-116 [facility] Comment on above: Performed By: #### B FIRE BATTALION CHIEF, CMP #### [facility] [address] [address] [address] Talia Plascencia ALT [Catalytic activity/Vol] 30 U/L Normal 16-63 [facility] Comment on above: Performed By: #### B FIRE BATTALION CHIEF, CMP #### [facility] [address] [place] [address] Dr. Talia Plascencia Anion gap [Moles/Vol] 12.2 mmol/L Normal [facility] Comment on above: Performed By: #### B FIRE BATTALION CHIEF, CMP #### [facility] [address] [place] [address] Dr. Talia Plascencia AST [Catalytic activity/Vol] 32 U/L Normal 15-37 [facility] Comment on above: Performed By: #### B FIRE BATTALION CHIEF, CMP #### [facility] [address] [place] [address] Dr. Talia Plascencia Bilirubin [Mass/Vol] 0.8 mg/dL Normal 0.2-1.0 [facility] Comment on above: Performed By: #### B FIRE BATTALION CHIEF, CMP #### [facility] [address] [place] [address] Dr. Talia Plascencia Calcium [Mass/Vol] 8.7 mg/dL Normal 8.5-10.1 [facility] Comment on above: Performed By: #### B FIRE BATTALION CHIEF, CMP #### [facility] [address] [address] [address] Talia Plascencia Chloride [Moles/Vol] 98 mmol/L Normal 98-107 [facility] Comment on above: Performed By: #### B FIRE BATTALION CHIEF, CMP #### [facility] [address] [address] [address] Talia Plascencia CO2 [Moles/Vol] 27.5 mmol/L Normal 21.0-32.0 [facility] Comment on above: Performed By: #### B FIRE BATTALION CHIEF, CMP #### [facility] [address] [address] [address] Talia Plascencia Creatinine [Mass/Vol] 1.33 mg/dL Critically high 0.70-1.30 [facility] Comment on above: Performed By: #### B FIRE BATTALION CHIEF, CMP #### [facility] [address] [address] [address] Talia Plascencia EGFR-AF NEPALESE >60 Normal >=60 [facility] Comment on above: Performed By: #### B FIRE BATTALION CHIEF, CMP #### [facility] [address] [address] [address] Talia Palscencia EGFR-NON AF NEPALESE 55 mL/min/1.73m2 Critically low >=60 [facility] Comment on above: Performed By: #### B FIRE BATTALION CHIEF, CMP #### [facility] [address] [address] [address] Talia Plascencia Globulin (S) [Mass/Vol] 3.6 g/dL Normal [facility] Comment on above: Performed By: #### B FIRE BATTALION CHIEF, CMP #### [facility] [address] [address] [address] Talia Plascencia Glucose [Mass/Vol] 233 mg/dL Critically high 74-106 [facility] Comment on above: Performed By: #### B FIRE BATTALION CHIEF, CMP #### [facility] [address] [address] [address] Talia Plascencia Potassium [Moles/Vol] 4.7 mmol/L Normal 3.5-5.1 [facility] Comment on above: Performed By: #### B FIRE BATTALION CHIEF, CMP #### [facility] [address] [address] [address] Talia Plascencia Protein [Mass/Vol] 7.5 g/dL Normal 6.4-8.2 [facility] Comment on above: Performed By: #### B FIRE BATTALION CHIEF, CMP #### [facility] [address] [address] [address] Talia Plascencia Sodium [Moles/Vol] 133 mmol/L Critically low 136-145 [facility] Comment on above: Performed By: #### B FIRE BATTALION CHIEF, CMP #### [facility] [address] [address] [address] Talia Plascencia Urea nitrogen [Mass/Vol] 22.0 mg/dL Critically high 7.0-18.0 [facility] Comment on above: Performed By: #### B FIRE BATTALION CHIEF, CMP #### [facility] [address] [address] [address] Talia Plascencia Urea nitrogen/Creatinine [Mass ratio] 16.5 mg/mg Normal [facility] Comment on above: Performed By: #### B FIRE BATTALION CHIEF, CMP #### [facility] [address] [address] [address] Talia Plascencia ALT (SGPT)on 07-14-2018 ALT enzyme act/vol 15 U/L Normal 10-52 [facility] Comment on above: Performed By: #### 1 [id number] ####[facility] [address] [place] [address] AST (SGOT)on 07-14-2018 AST enzyme act/vol 23 U/L Normal 13-39 [facility] Comment on above: Performed By: #### 1 [id number] ####[facility] [address] [place] [address] Creatinineon 07-14-2018 Creatinine mass conc 1.07 mg/dL Normal 0.50-1.30 [facility] Comment on above: Performed By: #### 1 [id number] ####[facility] [address] [place] [address] GFR/1.73 sq M.predicted MDRD vol rate/area mL/min/{1.73_m2} Normal [facility] Comment on above: Result Comment: Inte rpretation for Chronic Kidney Disease:Stages 1&2 >60 Healthy or potential kidney damage.Mild decrease of GFR.Stage 3 30-59 Moderate decrease of GFR.Stage 4 15-29 Severe decrease of GFR.Stage 5 <15 Kidney failure or on dialysis. Performed By: #### 1 [id number] ####[facility] [address] [place] [address] Electrolyte Panelon 07-14-20 18 Anion gap 3 molar conc 10 mmol/L Normal 10-20 [facility] Comment on above: Performed By: #### 1 [id number] ####[facility] [address] [place] [address] Chloride molar conc 99 mmol/L Normal 98-107 [facility] Comment on above: Performed By: #### 1 [id number] ####[facility] [address] [place] [address] HCO3 molar conc (Bld) 32 mmol/L Normal 21-32 [facility] Comment on above: Performed By: #### 1 [id number] ####[facility] [address] [facility] [place] [address] Potassium molar conc 4.5 mmol/L Normal 3.5-5.1 [facility] Comment on above: Performed By: #### 1 [id number] ####[facility] [address] [facility] [place] [address] Sodium molar conc 136 mmol/L Normal 136-145 [facility] Comment on above: Performed By: #### 1 [id number] ####[facility] [address] [employer] [place] [address] Lipid Panelon 07-14-2018 Cholesterol in HDL mass conc 34 mg/dL Abnormal [facility] Comment on above: Result Comment: Norm al Mod Risk High Risk5-9 >48 42-48 <4210- 14 >45 40-45 <4015-19 >38 34-38 <34Adult >39 Performed By: #### 1 [id number] ####[facility] [address] [place] [address] Cholesterol in LDL mass conc 98 mg/dL Normal <130 [facility] Comment on above: Performed By: #### 1 [id number] ####[facility] [address] [place] [address] Cholesterol in VLDL mass conc 21 mg/dL Normal <30 [facility] Comment on above: Performed By: #### 1 [id number] ####[facility] [address] [place] [address] Cholesterol mass conc 153 mg/dL Normal <200 [facility] Comment on above: Performed By: #### 1 [id number] ####[facility] [address] [place] [address] Cholesterol.total/C holesterol in HDL mass ratio 4.5 {ratio} Normal [facility] Comment on above: Performed By: #### 1 [id number] ####[facility] [address] [place] [address] Triglyceride mass conc 104 mg/dL Normal <150 [facility] Comment on above: Result Comment: 150- 199 Borderline [id number] High>500 Very High Performed By: #### 1 [id number] ####[facility] [address] [place] [address] Urea Nitrogenon 07-14-2018 Urea nitrogen mass conc 16 mg/dL Normal 6-23 [facility] Comment on above: Performed By: #### 1 [id number] ####[facility] [address] [place] [address] Vital Signs Date Time Vital Sign Value Performing Clinician Facility 11-20-2024 09:040 Body height 171.45 cm [facility] 11-20-2024 09:190400 Body mass index (BMI) [Ratio] 49.7 kg/m2 [facility] 11-20-2024 09:040 Body weight 146.17 kg [facility] 11-20-2024 09:19-0400 Diastolic blood pressure 86 mm[Hg] [facility] 11-20-2024 09:19-0400 Heart rate 69 /min [facility] 11-20-2024 09:0400 Respiratory rate 12 /min [facility] 11-20-2024 09:19-0400 SaO2% (BldA) [Mass fraction] 96 % [facility] 11-20-2024 09:19-0400 Systolic blood pressure 137 mm[Hg] [facility] 10-26-2024 09:15-0500 Blood Pressure Location Lety Lue [facility] 10-26-2024 09:15-0500 Diastolic blood pressure 73 mm[Hg] Lety Lue [facility] 10-26-2024 09:15-0500 Heart rate 74 /min Lety Lue [facility] 10-26-2024 09:15-0500 Systolic blood pressure 127 mm[Hg] Lety Lue [facility] 07-28-2024 11:26-0500 Body temperature 97.7 [degF] Vaibhav Slater MD Work Phone: [facility] 07-28-2024 11:26-0500 Diastolic blood pressure 74 mm[Hg] Vaibhav Slater MD Work Phone: [facility] [employer] [facility] 07-28-2024 11:26-0500 Heart rate 76 /min Vaibhav Slater MD Work Phone: [facility] [employer] [facility] 07-28-2024 11:26-0500 Respiratory rate 18 /min Vaibhav Slater MD Work Phone: [facility] 07-28-2024 11:26-0500 SaO2% (BldA) [Mass fraction] 94 % Vaibhav Slater MD Work Phone: [facility] 07-28-2024 11:26-0500 Systolic blood pressure 141 mm[Hg] Vaibhav Slater MD Work Phone: [facility] 07-26-2024 05:00-0500 Body mass index (BMI) [Ratio] 49.74 kg/m2 Vaibhav Slater MD Work Phone: [facility] 07-26-2024 05:00-0500 Body weight 144.06 kg Vaibhav Slater MD Work Phone: [facility] 07-24-2024 03:20-0500 Body height 170.2 cm Vaibhav Slater MD Work Phone: [facility] 07-13-2024 10:59-0500 Body height 170.2 cm Gray Brown DPM Work Phone: [facility] 07-13-2024 10:59-0500 Body mass index (BMI) [Ratio] 51.69 kg/m2 Gray Brown DPM Work Phone: [facility] 07-13-2024 10:59-0500 Body weight 149.69 kg Gray Brown DPM Work Phone: [facility] 07-13-2024 10:59-0500 Diastolic blood pressure 82 mm[Hg] Gray Brown DPM Work Phone: [facility] 07-13-2024 10:59-0500 Heart rate 86 /min Gray Brown DPM Work Phone: [facility] 07-13-2024 10:59-0500 Systolic blood pressure 133 mm[Hg] Gray Brown DPM Work Phone: [facility] 07-06-2024 11:16-0400 Body height 170.2 cm Gray Brown DPM Work Phone: [facility] 07-06-2024 11:16-0400 Body mass index (BMI) [Ratio] 51.69 kg/m2 Gray Brown DPM Work Phone: [facility] 07-06-2024 11:16-0400 Body weight 149.69 kg Gray Brown DPM Work Phone: [facility] 07-06-2024 11:16-0400 Diastolic blood pressure 80 mm[Hg] Gray Brown DPM Work Phone: [facility] 07-06-2024 11:16-0400 Heart rate 82 /min Gray Cancino DPM Work Phone: [facility] 07-06-2024 11:16-0400 Systolic blood pressure 126 mm[Hg] Gray Cancino DPM Work Phone: [facility] 06-29-2024 10:52-0400 Body height 170.2 cm Gray Cancino DPM Work Phone: [facility] 06-29-2024 10:52-0400 Body mass index (BMI) [Ratio] 51.69 kg/m2 Gray Cancino DPM Work Phone: [facility] 06-29-2024 10:52-0400 Body weight 149.69 kg Gray Cancino DPM Work Phone: [facility] 06-29-2024 10:52-0400 Diastolic blood pressure 80 mm[Hg] Gray Cancino DPM Work Phone: [facility] 06-29-2024 10:52-0400 Heart rate 88 /min Gray Cancino DPM Work Phone: [facility] 06-29-2024 10:52-0400 Systolic blood pressure 130 mm[Hg] Gray Brown DPM Work Phone: [facility] 06-15-2024 13:46-0400 Body height 170.2 cm Gray Cancino DPM Work Phone: [facility] 06-15-2024 13:46-0400 Body mass index (BMI) [Ratio] 51.69 kg/m2 Gray Brown DPM Work Phone: [facility] 06-15-2024 13:46-0400 Body weight 149.69 kg Gray Brown DPM Work Phone: [facility] 06-15-2024 13:46-0400 Respiratory rate 18 /min Gray Cancino DPM Work Phone: [facility] 06-14-2024 07:52-0400 Body height 171.45 cm [facility] 06-14-2024 07:52-0400 Body mass index (BMI) [Ratio] 49.6 kg/m2 [facility] 06-14-2024 07:52-0400 Body weight 145.77 kg [facility] 06-14-2024 07:52-0400 Diastolic blood pressure 88 mm[Hg] [facility] 06-14-2024 07:52-0400 Heart rate 85 /min [facility] 06-14-2024 07:52-0400 Respiratory rate 18 /min [facility] 06-14-2024 07:52-0400 SaO2% (BldA) [Mass fraction] 96 % [facility] 06-14-2024 07:52-0400 Systolic blood pressure 142 mm[Hg] [facility] 06-08-2024 08:34-0400 Body height 170.2 cm Gray Cancino DPM Work Phone: [facility] 06-08-2024 08:34-0400 Body mass index (BMI) [Ratio] 51.69 kg/m2 Gray Cancino DPM Work Phone: [facility] 06-08-2024 08:34-0400 Body weight 149.69 kg Gray Cancino DPM Work Phone: [facility] 06-08-2024 08:34-0400 Diastolic blood pressure 80 mm[Hg] Gray Cancino DPM Work Phone: [facility] 06-08-2024 08:34-0400 Heart rate 74 /min Gray Cancino DPM Work Phone: [facility] 06-08-2024 08:34-0400 Respiratory rate 18 /min Gray Cancino DPM Work Phone: [facility] 06-08-2024 08:34-0400 Systolic blood pressure 126 mm[Hg] Gray Cancino DPM Work Phone: [facility] 06-01-2024 08:44-0400 Body height 170.2 cm Gray Cancino DPM Work Phone: [facility] 06-01-2024 08:44-0400 Body mass index (BMI) [Ratio] 51.69 kg/m2 Gray Brown DPM Work Phone: [facility] 06-01-2024 08:44-0400 Body weight 149.69 kg Gray Brown DPM Work Phone: [facility] 06-01-2024 08:44-0400 Diastolic blood pressure 80 mm[Hg] Gray Brown DPM Work Phone: [facility] 06-01-2024 08:44-0400 Heart rate 75 /min Gray Brown DPM Work Phone: [facility] 06-01-2024 08:44-0400 Respiratory rate 18 /min Gray Brown DPM Work Phone: [facility] 06-01-2024 08:44-0400 Systolic blood pressure 126 mm[Hg] Gray Brown DPM Work Phone: [facility] 05-25-2024 11:05-0400 Body height 170.2 cm Gray Brown DPM Work Phone: [facility] 05-25-2024 11:05-0400 Body mass index (BMI) [Ratio] 51.69 kg/m2 Gray Brown DPM Work Phone: [facility] 05-25-2024 11:05-0400 Body weight 149.69 kg Gray Brown DPM Work Phone: [facility] 05-25-2024 11:05-0400 Diastolic blood pressure 80 mm[Hg] Gray Brown DPM Work Phone: [facility] 05-25-2024 11:05-0400 Heart rate 75 /min Gray Brown DPM Work Phone: [facility] 05-25-2024 11:05-0400 Respiratory rate 17 /min Gray Brown DPM Work Phone: [facility] 05-25-2024 11:05-0400 Systolic blood pressure 126 mm[Hg] Gray Brayan DPM Work Phone: [facility] 05-18-2024 10:03-0400 Body height 170.2 cm Gray Cancino DPM Work Phone: [facility] 05-18-2024 10:03-0400 Body mass index (BMI) [Ratio] 51.69 kg/m2 Gray Cancino DPM Work Phone: [facility] 05-18-2024 10:03-0400 Body weight 149.69 kg Gray Cancino DPM Work Phone: [facility] 05-18-2024 10:03-0400 Diastolic blood pressure 80 mm[Hg] Gray Brayan DPM Work Phone: [facility] 05-18-2024 10:03-0400 Heart rate 77 /min Gray Cancino DPM Work Phone: [facility] 05-18-2024 10:03-0400 Systolic blood pressure 126 mm[Hg] Gray Cancino DPM Work Phone: [facility] 05-11-2024 10:16-0400 Body height 170.2 cm Gray Cancino DPM Work Phone: [facility] 05-11-2024 10:16-0400 Body mass index (BMI) [Ratio] 51.69 kg/m2 Gray Cancino DPM Work Phone: [facility] 05-11-2024 10:16-0400 Body weight 149.69 kg Gray Cancino DPM Work Phone: [facility] 05-11-2024 10:16-0400 Diastolic blood pressure 85 mm[Hg] Gray Brown DPM Work Phone: [facility] 05-11-2024 10:16-0400 Heart rate 78 /min Gray Brown DPM Work Phone: [facility] 05-11-2024 10:16-0400 Respiratory rate 19 /min Gray Brayan DPM Work Phone: [facility] 05-11-2024 10:16-0400 Systolic blood pressure 130 mm[Hg] Gray Brayan DPM Work Phone: [facility] 05-04-2024 10:29-0400 Body height 170.2 cm Gray Cancino DPM Work Phone: [facility] 05-04-2024 10:29-0400 Body mass index (BMI) [Ratio] 51.69 kg/m2 Gray Brown DPM Work Phone: [facility] 05-04-2024 10:29-0400 Body weight 149.69 kg Gray Cancino DPM Work Phone: [facility] 05-04-2024 10:29-0400 Diastolic blood pressure 82 mm[Hg] Gray Brayan DPM Work Phone: [facility] 05-04-2024 10:29-0400 Heart rate 85 /min Gray Cancino DPM Work Phone: [facility] 05-04-2024 10:29-0400 Systolic blood pressure 130 mm[Hg] Gray Cancino DPM Work Phone: [facility] 05-01-2024 11:15-0400 Body height 171.45 cm [facility] 05-01-2024 11:15-0400 Body mass index (BMI) [Ratio] 51.4 kg/m2 [facility] 05-01-2024 11:15-0400 Body weight 151.07 kg [facility] 05-01-2024 11:15-0400 Diastolic blood pressure 74 mm[Hg] [facility] 05-01-2024 11:15-0400 Heart rate 77 /min [facility] 05-01-2024 11:15-0400 Respiratory rate 18 /min [facility] 05-01-2024 11:15-0400 SaO2% (BldA) [Mass fraction] 95 % [facility] 05-01-2024 11:15-0400 Systolic blood pressure 118 mm[Hg] [facility] 03-08-2024 08:08-0400 Blood Pressure Location Lety Lue [facility] 03-08-2024 08:08-0400 Diastolic blood pressure 85 mm[Hg] Lety Lue [facility] 03-08-2024 08:08-0400 Heart rate 70 /min Lety Lue [facility] 03-08-2024 08:08-0400 Respiratory rate 16 /min Lety Lue [facility] 03-08-2024 08:08-0400 Systolic blood pressure 126 mm[Hg] Lety Lue [facility] 02-23-2024 11:41-0400 Body height 171.45 cm [facility] 02-23-2024 11:41-0400 Body mass index (BMI) [Ratio] 50.1 kg/m2 [facility] 02-23-2024 11:41-0400 Body weight 147.41 kg [facility] 02-23-2024 11:41-0400 Diastolic blood pressure 72 mm[Hg] [facility] 02-23-2024 11:41-0400 Heart rate 75 /min [facility] 02-23-2024 11:41-0400 Systolic blood pressure 116 mm[Hg] [facility] 11-30-2023 08:52-0400 Body height 171.45 cm [facility] 11-30-2023 08:52-0400 Body mass index (BMI) [Ratio] 50.1 kg/m2 [facility] 11-30-2023 08:52-0400 Body weight 147.41 kg [facility] 11-30-2023 08:52-0400 Diastolic blood pressure 74 mm[Hg] [facility] 11-30-2023 08:52-0400 Heart rate 76 /min [facility] 11-30-2023 08:52-0400 Systolic blood pressure 110 mm[Hg] [facility] 09-15-2023 08:05-0500 Blood Pressure Location Lety Lue [facility] 09-15-2023 08:05-0500 Diastolic blood pressure 77 mm[Hg] Lety Lue [facility] 09-15-2023 08:05-0500 Heart rate 75 /min Lety Lue [facility] 09-15-2023 08:05-0500 Systolic blood pressure 118 mm[Hg] Lety Lue [facility] 08-06-2023 09:45-0500 Body height 171.45 cm Luis Jeffrey Other [facility] [employer] Other 08-06-2023 09:45-0500 Body mass index (BMI) [Ratio] 48.51 kg/m2 Luis Jeffrey Other [facility] [employer] Other 08-06-2023 09:45-0500 Body weight 142.61 kg Luis Jeffrey Other [facility] [employer] Other 08-06-2023 09:45-0500 Diastolic blood pressure 79 mm[Hg] Luis Jeffrey Other [facility] [employer] Other 08-06-2023 09:45-0500 Systolic blood pressure 112 mm[Hg] Luis Jeffrey Other [employer] Other 03-03-2023 09:30-0400 Blood Pressure Location Lety Lue [facility] 03-03-2023 09:30-0400 Diastolic blood pressure 96 mm[Hg] Lety Lue [facility] 03-03-2023 09:30-0400 Heart rate 74 /min Lety Lue [facility] 03-03-2023 09:30-0400 Respiratory rate 16 /min Lety Lue [facility] 03-03-2023 09:30-0400 Systolic blood pressure 139 mm[Hg] [facility]ue [facility] 12-22-2022 09:53-0400 Body height 173.99 cm Luis Jeffrey Work Phone: [facility] 250 DO Work Phone: 12-22-2022 09:53-0400 Body mass index (BMI) [Ratio] 46.9 kg/m2 Luis Jeffrey Work Phone: [facility] 250 DO Work Phone: 12-22-2022 09:53-0400 Body surface area Derived from formula 2.49 m2 Luis Jeffrey Work Phone: [facility] 250 DO Work Phone: 12-22-2022 09:53-0400 Body weight 141.98 kg Luis Jeffrey Work Phone: [facility] 250 DO Work Phone: 12-22-2022 09:53-0400 Diastolic blood pressure 64 mm[Hg] Luis Jeffrey Work Phone: [facility] 250 DO Work Phone: 12-22-2022 09:53-0400 Heart rate 74 /min Luis Jeffrey Work Phone: [facility] [employer] 250 DO Work Phone: 12-22-2022 09:53-0400 Systolic blood pressure 120 mm[Hg] Luis Jeffrey Work Phone: [facility] [employer] 250 DO Work Phone: 12-09-2022 09:45-0400 Body height 171.45 cm Luis Jeffrey Other [email or web address] [email or web address] Other 12-09-2022 09:45-0400 Body mass index (BMI) [Ratio] 47.52 kg/m2 Luis Jeffrey Other [email or web address] Other 12-09-2022 09:45-0400 Body weight 139.71 kg Luis Jeffrey Other [employer] Other 12-09-2022 09:45-0400 Diastolic blood pressure 80 mm[Hg] Luis Jeffrey Other [employer] Other 12-09-2022 09:45-0400 SaO2% (BldA) [Mass fraction] 97 % Luis Jeffrey Other [employer] Other 12-09-2022 09:45-0400 Systolic blood pressure 122 mm[Hg] Luis Jeffrey Other [email or web address] [email or web address] Other 11-25-2022 10:15-0400 Blood Pressure Location Lety Gonzalez [facility] 11-25-2022 10:15-0400 Diastolic blood pressure 79 mm[Hg] Lety Vitale [facility] 11-25-2022 10:15-0400 Heart rate 76 /min Lety Lue [facility] 11-25-2022 10:15-0400 Respiratory rate 16 /min Lety Lue [facility] 11-25-2022 10:15-0400 Systolic blood pressure 129 mm[Hg] Lety Lue [facility] 08-19-2022 07:54-0500 Blood Pressure Location Lety Lue [facility] 08-19-2022 07:54-0500 Diastolic blood pressure 90 mm[Hg] Lety Lue [facility] 08-19-2022 07:54-0500 Heart rate 82 /min Lety Lue [facility] 08-19-2022 07:54-0500 Systolic blood pressure 128 mm[Hg] Lety Lue [facility] Encounters Encounter Date Encounter Type Care Provider Facility Start: 05-02-2025 ambulatory Lety M. Lue Facility:[facility] [place] Start: 04-25-2025 ambulatory Lety M. Lue Facility:[facility] [place] Start: 12-21-2024 ambulatory Lety M. Lue Facility:[facility] [place] Start: 12-06-2024 End: 12-06-2024 ambulatory Do Marlee Facility:[facility] [place] Start: 11-22-2024 End: 11-22-2024 ambulatory Lety M. Lue Facility:[facility] [place] Start: 11-20-2024 End: 11-20-2024 ambulatory [place] Work Phone: Start: 11-20-2024 End: 11-20-2024 Patient encounter procedure [facility] Work Phone: Start: 11-08-2024 End: 11-08-2024 ambulatory Lety M. Lue Facility:[facility] Start: 11-08-2024 End: 11-08-2024 Patient encounter procedure Lety M. Lue [facility] [place] Start: 10-27-2024 End: 10-27-2024 ambulatory Elty M. Lue Facility:[facility] Start: 10-27-2024 End: 10-27-2024 Patient encounter procedure Lety M. Lue [facility] [place] Start: 10-26-2024 End: 10-26-2024 ambulatory Lety M. Lue Facility: [place] Start: 10-26-2024 End: 10-26-2024 Patient encounter procedure Lety M. Lue [facility] [place] Start: 10-18-2024 End: 10-18-2024 ambulatory Lety M. Lue [facility] Start: 10-18-2024 End: 10-18-2024 Lab Drop off Lety M. Lue [facility] Start: 10-18-2024 End: 10-18-2024 ambulatory Lety M. Lue Facility: [place] Start: 10-18-2024 End: 10-18-2024 Patient encounter procedure [facility] Start: 10-11-2024 End: 10-11-2024 ambulatory Lety M. Lue Facility:[facility] [place] Start: 10-11-2024 End: 10-11-2024 Patient encounter procedure Lety M. Lue [facility] [place] Start: 09-20-2024 End: 09-20-2024 ambulatory Lety M. Lue Facility:[facility] [place] Start: 09-20-2024 End: 09-20-2024 Patient encounter procedure [facility] M. Lue [facility] Start: 09-13-2024 End: 09-13-2024 Lab Drop off Lety M. Lue [facility] Start: 09-13-2024 End: 09-13-2024 ambulatory Lety M. Lue [facility] Start: 09-13-2024 End: 09-13-2024 Patient encounter procedure [facility] M. [facility]ue [facility] Start: 09-07-2024 End: 09-07-2024 ambulatory Lety M. Lue Facility:[facility] [place] Start: 09-07-2024 End: 09-07-2024 Patient encounter procedure [facility] M. Lue [facility] Start: 08-23-2024 End: 08-23-2024 ambulatory Lety M. Lue Facility:[facility] [place] Start: 08-23-2024 End: 08-23-2024 Patient encounter procedure [facility] M. Lue [facility] Start: 08-09-2024 ambulatory Lety M. Lue Facility:[facility] [place] Start: 07-26-2024 ambulatory Lety M. Lue Facility:[facility] [place] Start: 07-25-2024 ambulatory LUIS JEFFREY [facility] Start: 07-24-2024 End: 07-24-2024 Telephone encounter Junie Constance [facility] Call Johnny sanchez Comment on above: Consult (Small bowel obstruction) Start: 07-24-2024 End: 07-28-2024 Evaluation and management of inpatient Adrienne Rodriguez MD Work Phone: [facility] - 6 CARD Tele/Intermediate Comment on above: JAM (obstructive sle ep apnea) (Primary Dx); Small bowel obstruction (CMS-HCC); Primary hypertension Start: 07-24-2024 ambulatory LUIS Blakely JEFFREY [facility] Start: 07-23-2024 ambulatory LUIS Blakely JEFFREY [facility] Start: 07-13-2024 End: 07-13-2024 Bamboo flowsheet Gray Cancino DPM Work Phone: [facility] Start: 07-13-2024 End: 07-13-2024 Bamboo flowsheet Gray Cancino DPM Work Phone: [facility] Start: 07-13-2024 End: 07-13-2024 Postop follow up visit related to original px Gray Cancino DPM Work Phone: [facility] Comment on above: 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, unspecified whether jail insulin use (CMS/HCC) (Primary Dx); Foot ulcer, right, with fat layer exposed (CMS/HCC); Foot ulcer, left, with fat layer exposed (CMS/HCC) Start: 07-13-2024 End: 07-13-2024 ambulatory GRAY CANCINO Not Available Start: 07-12-2024 End: 07-12-2024 ambulatory Lety Gonzalez Facility:[facility] [place] Start: 07-12-2024 End: 07-12-2024 Patient encounter procedure Lety Gonzalez [facility] Start: 07-06-2024 End: 07-06-2024 Bamboo flowsheet Gray Cancino DPM Work Phone: [facility] Start: 07-06-2024 End: 07-06-2024 Bamboo flowsheet Gray Blankenship Brown DPM Work Phone: [facility] Start: 07-06-2024 End: 07-06-2024 Patient encounter procedure Gray Cancino DPM Work Phone: [facility] Comment on above: 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, unspecified whether intermission coordinator insulin use (CMS/HCC) (Primary Dx); Foot ulcer, right, with fat layer exposed (CMS/HCC) Start: 07-06-2024 End: 07-06-2024 ambulatory GRAY CANCINO Not Available Start: 06-29-2024 End: 06-29-2024 Bamboo flowsheet Gray Blankenship Brown DPM Work Phone: [facility] Start: 06-29-2024 End: 06-29-2024 Bamboo flowsheet Gray Krzysztof Brown DPM Work Phone: [facility] Start: 06-29-2024 End: 06-29-2024 Patient encounter procedure Gray Cancino DPM Work Phone: [facility] Comment on above: 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, unspecified whether jail insulin use (CMS/HCC) (Primary Dx); Foot ulcer, right, with fat layer exposed (CMS/HCC) Start: 06-29-2024 End: 06-29-2024 ambulatory GRAY CANCINO Not Available Start: 06-28-2024 End: 06-28-2024 ambulatory Lety Gonzalez Facility:[facility] Start: 06-28-2024 End: 06-28-2024 Patient encounter procedure Lety Gonzalez [facility] Start: 06-15-2024 End: 06-15-2024 Bamboo flowsheet Gray Cancino DPM Work Phone: [facility] Start: 06-15-2024 End: 06-15-2024 Bamboo flowsheet Gray Cancino DPM Work Phone: [facility] Start: 06-15-2024 End: 06-15-2024 Office outpatient visit 25 minutes Gray Cancino DPM Work Phone: [facility] Comment on above: 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, unspecified whether jail insulin use (CMS/HCC) (Primary Dx); Foot ulcer, right, with fat layer exposed (CMS/HCC); Foot ulcer, left, with fat layer exposed (CMS/HCC); PVD (peripheral vascular disease) (CMS/HCC) Start: 06-15-2024 End: 06-15-2024 ambulatory GRAY CANCINO Not Available Start: 06-14-2024 End: 06-14-2024 ambulatory Lety Gonzalez [place] Work Phone: Start: 06-14-2024 End: 06-14-2024 Patient encounter procedure [facility] Work Phone: Start: 06-08-2024 End: 06-08-2024 Bamboo flowsanderson Cancino DPM Work Phone: [facility] Start: 06-08-2024 End: 06-08-2024 Bamboo flowsheet Gray Cancino DPM Work Phone: [facility] Start: 06-08-2024 End: 06-08-2024 Office outpatient visit 15 minutes Gray Cancino DPM Work Phone: [facility] Comment on above: Foot ulcer, left, wi th fat layer exposed (CMS/HCC) (Primary Dx); Diabetes 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 polyneuropathy, unspecified whether jail insulin use (CMS/[facility]); Foot ulcer, right, with fat layer exposed ([facility]/HCC) Start: 06-08-2024 End: 06-08-2024 ambulatory GRAY CANCINO Not Available Start: 06-01-2024 End: 06-01-2024 Bamboo flowsheet Gray Cancino DPM Work Phone: [facility] Start: 06-01-2024 End: 06-01-2024 Bamboo flowsheet Gray Cancino DPM Work Phone: [facility] Start: 06-01-2024 End: 06-01-2024 Office outpatient visit 10 minutes Gray Cancino DPM Work Phone: [facility] Comment on above: 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, unspecified whether jail insulin use (CMS/[facility]) (Primary Dx); Foot ulcer, right, with fat layer exposed ([facility]); PVD (peripheral vascular disease) ([facility]); Xerosis cutis Start: 06-01-2024 End: 06-01-2024 ambulatory GRAY CANCINO Not Available Start: 05-31-2024 End: 05-31-2024 ambulatory Lety Gonzalez Facility:[facility] Start: 05-31-2024 End: 05-31-2024 Patient encounter procedure Lety Gonzalez [facility] Start: 05-25-2024 End: 05-25-2024 Bamboo flowsheet Gray Cancino DPM Work Phone: [facility] Start: 05-25-2024 End: 05-25-2024 Bamboo flowsheet Gray Cancino DPM Work Phone: [facility] Start: 05-25-2024 End: 05-25-2024 Patient encounter procedure Gray Cancino DPM Work Phone: 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 Comment on above: Xerosis cutis (Prima ry Dx); Skin fissure; Diabetes 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 polyneuropathy, unspecified whether intermission coordinator insulin use (CMS/HCC); Foot ulcer, right, with fat layer exposed (CMS/HCC); PVD (peripheral vascular disease) (CMS/HCC) Start: 05-18-2024 End: 05-18-2024 ambulatory GRAY CANCINO Not Available Start: 05-17-2024 End: 05-17-2024 ambulatory Lety Gonzalez Facility:[facility] Start: 05-17-2024 End: 05-17-2024 Patient encounter procedure Lety Gonzalez [facility] Start: 05-11-2024 End: 05-11-2024 Office outpatient visit 15 minutes Gray Cancino DPM Work Phone: [facility] Comment on above: Xerosis cutis (Prima ry Dx); Skin fissure; PVD (peripheral vascular disease) (CMS/HCC); Diabetes 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 polyneuropathy, unspecified whether jail insulin use (CMS/HCC); Foot ulcer, right, with fat layer exposed (CMS/HCC) Start: 05-11-2024 End: 05-11-2024 ambulatory GRAY CANCINO Not Available Start: 05-04-2024 End: 05-04-2024 Bamboo flowsheet Gray Cancino DPM Work Phone: [facility] Start: 05-04-2024 End: 05-04-2024 Bamboo flowsheet Gray Cancino DPM Work Phone: [facility] Start: 05-04-2024 End: 05-04-2024 Office outpatient new 30 minutes Gray Cancino DPM Work Phone: [facility] Comment on above: Foot ulcer, right, w ith fat layer exposed ([facility]) (Primary Dx); Xerosis cutis; Skin fissure; Diabetes 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 polyneuropathy, unspecified whether intermission coordinator insulin use ([facility]); PVD (peripheral vascular disease) ([facility]) Start: 05-04-2024 End: 05-04-2024 ambulatory GRAY CANCINO Not Available Start: 05-02-2024 End: 05-02-2024 ambulatory Lety Gonzalez Facility:[facility] Start: 05-02-2024 End: 05-02-2024 Patient encounter procedure Lety Gonzalez [facility] Start: 05-01-2024 End: 05-01-2024 ambulatory [place] Work Phone: Start: 05-01-2024 End: 05-01-2024 Patient encounter procedure [facility] Work Phone: Start: 04-19-2024 End: 04-19-2024 ambulatory Lety Gonzalez Facility:[facility] Start: 04-19-2024 End: 04-19-2024 Patient encounter procedure Lety Gonzalez [facility] Start: 04-17-2024 End: 04-17-2024 ambulatory [place] Work Phone: Start: 04-17-2024 End: 04-17-2024 Patient encounter procedure [facility] Work Phone: Start: 04-05-2024 End: 04-05-2024 ambulatory Lety M. Lue Facility:[facility] Start: 04-05-2024 End: 04-05-2024 Patient encounter procedure Lety M. Lue [facility] Start: 03-22-2024 End: 03-22-2024 ambulatory Lety M. Lue Facility:[facility] Start: 03-22-2024 End: 03-22-2024 Patient encounter procedure Leyt M. Lue [facility] Start: 03-08-2024 End: 03-08-2024 ambulatory Lety M. Lue Facility:[facility] Start: 03-08-2024 End: 03-08-2024 Patient encounter procedure Lety M. Lue [facility] Start: 03-01-2024 End: 03-01-2024 Lab Drop off LUIS JEFFREY [facility] Start: 03-01-2024 Non-patient / Non-visit [facility] Work Phone: Start: 03-01-2024 End: 03-01-2024 Lab Drop off Lety Borja. Lue [facility] Start: 03-01-2024 End: 03-01-2024 ambulatory LUIS JEFFREY [facility] Start: 03-01-2024 End: 03-01-2024 Patient encounter procedure Lety M. Lue [facility] [place] Start: 02-23-2024 End: 02-23-2024 ambulatory [place] Work Phone: Start: 02-23-2024 End: 02-23-2024 Patient encounter procedure [facility] Work Phone: Start: 02-23-2024 End: 02-23-2024 ambulatory Elty M. Lue Facility:[facility] [place] Start: 02-23-2024 End: 02-23-2024 Patient encounter procedure Lety MAbhinav Vitalreddy [facility] Start: 02-09-2024 End: 02-09-2024 ambulatory PA-C JEMIMA MARQUEZ Facility:[facility] [place] Start: 02-09-2024 End: 02-09-2024 Patient encounter procedure JEMIMA MARQUEZ [facility] [place] Start: 01-25-2024 End: 01-25-2024 ambulatory PA-C JEMIMA Blakely JIMMY Facility:[facility] [place] Start: 01-25-2024 End: 01-25-2024 Patient encounter procedure [facility]EMIMA MARQUEZ [facility] Start: 01-11-2024 End: 01-11-2024 ambulatory PA-C JEMIMA E JIMMY Facility:[facility] [place] Start: 01-11-2024 End: 01-11-2024 Patient encounter procedure JEMIMA MARQUEZ [facility] Start: 12-28-2023 End: 12-28-2023 ambulatory PA-C JEMIMA Reddy JIMMY Facility:[facility] [place] Start: 12-28-2023 End: 12-28-2023 Patient encounter procedure JEMIMA CALDERÓNRY [facility] [place] Start: 12-14-2023 End: 12-14-2023 ambulatory PA-C JEMIMA MARQUEZ Facility:[facility] [place] Start: 12-14-2023 End: 12-14-2023 Patient encounter procedure JEMIMA MARQUEZ [facility] Start: 12-01-2023 Non-patient / Non-visit [facility] Work Phone: Start: 11-30-2023 End: 11-30-2023 ambulatory PA-C JEMIMA MARQUEZ [facility] Work Phone: Start: 11-30-2023 End: 11-30-2023 Patient encounter procedure [facility] Work Phone: Start: 11-25-2023 Non-patient / Non-visit [facility] Work Phone: Start: 11-16-2023 End: 11-16-2023 ambulatory Lety M. Lue Facility:[facility] [place] Start: 11-16-2023 End: 11-16-2023 Patient encounter procedure Lety M. Lue [facility] Start: 11-03-2023 End: 11-03-2023 ambulatory Lety M. Lue Facility:[facility] [place] Start: 11-03-2023 End: 11-03-2023 Patient encounter procedure Lety M. Lue [facility] Start: 10-20-2023 End: 10-20-2023 ambulatory Lety M. Lue Facility:[facility] [place] Start: 10-20-2023 End: 10-20-2023 Patient encounter procedure Lety M. Lue [facility] Start: 09-29-2023 End: 09-29-2023 ambulatory Lety M. Lue [facility] Start: 09-29-2023 End: 09-29-2023 Patient encounter procedure Lety M. Lue [facility] Start: 09-15-2023 End: 09-15-2023 ambulatory [facility] Start: 09-15-2023 End: 09-15-2023 Patient encounter procedure Lety M. Lue [facility] Start: 09-08-2023 End: 09-08-2023 Lab Drop off Lety M. Lue [facility] Start: 09-08-2023 End: 09-08-2023 ambulatory Lety M. Lue [facility] Start: 09-08-2023 End: 09-08-2023 Patient encounter procedure Lety M. Lue [facility] Start: 09-01-2023 End: 09-01-2023 ambulatory [facility] Lue [facility] Start: 09-01-2023 End: 09-01-2023 Patient encounter procedure Lety M. Lue [facility] Start: 08-26-2023 End: 08-26-2023 ambulatory Luis Valladares [employer] Other Start: 08-26-2023 Telephone encounter Luis Jeffrey [facility] Start: 08-09-2023 End: 08-09-2023 ambulatory Luis Wojciech Other [employer] Other Start: 08-09-2023 Telephone encounter Luis Wojciech [facility] Start: 08-06-2023 End: 08-06-2023 ambulatory Luis Wojciech Other [employer] Other Start: 08-06-2023 Office outpatient vi sit 25 minutes Luis Jeffrey [facility] Start: 08-04-2023 End: 08-04-2023 ambulatory [facility] M. Lue [facility] Start: 08-04-2023 End: 08-04-2023 Patient encounter procedure Lety M. Lue [facility] [employer] Start: 07-21-2023 End: 07-21-2023 ambulatory Lety M. Lue Facility:[employer] Start: 07-21-2023 End: 07-21-2023 Patient encounter procedure Lety M. Lue [facility] [employer] Start: 07-07-2023 End: 07-07-2023 ambulatory Lety M. Lue Facility:[employer] Start: 07-07-2023 End: 07-07-2023 Patient encounter procedure Lety M. Lue [facility] [employer] Start: 06-23-2023 End: 06-23-2023 ambulatory Lety M. Lue Facility:[employer] Start: 06-23-2023 End: 06-23-2023 Patient encounter procedure [facility] M. Lue [facility] [employer] Start: 06-09-2023 End: 06-09-2023 ambulatory Lety M. Lue Facility:[facility] [place] Start: 06-02-2023 End: 06-02-2023 ambulatory Lety M. Lue Facility:[facility] [place] Start: 05-26-2023 End: 05-26-2023 ambulatory Lety M. Lue Facility:[employer] Start: 05-26-2023 End: 05-26-2023 Patient encounter procedure Lety M. Lue [facility] [employer] Start: 05-12-2023 End: 05-12-2023 ambulatory Lety M. Lue Facility:[employer] Start: 05-12-2023 End: 05-12-2023 Patient encounter procedure [facility] M. Lue [facility] Start: 04-28-2023 End: 04-28-2023 ambulatory Lety M. Lue Facility:[employer] Start: 04-28-2023 End: 04-28-2023 Patient encounter procedure Lety M. Lue [facility] [employer] Start: 04-14-2023 End: 04-14-2023 ambulatory Lety M. Lue Facility:[employer] Start: 04-14-2023 End: 04-14-2023 Patient encounter procedure [facility]. [facility]ue [facility] Start: 03-31-2023 End: 03-31-2023 ambulatory Lety M. Lue Facility:[employer] Start: 03-31-2023 End: 03-31-2023 Patient encounter procedure Lety M. Lue [facility] [employer] Start: 03-29-2023 End: 03-29-2023 ambulatory Luisgibson Jeffrey Other [employer] Other Start: 03-29-2023 Telephone encounter Luis Jeffrey [facility] Start: 03-17-2023 Telephone encounter Luis Jeffrey [facility] Start: 03-17-2023 End: 03-17-2023 ambulatory Lety JonhAbhinav Gonzalez [place] [email or web address] Other Start: 03-17-2023 End: 03-17-2023 Patient encounter procedure Lety BorjaAbhinav Vitalreddy [facility] [employer] Start: 03-03-2023 End: 03-03-2023 Patient encounter procedure Lety MAbhinav Vitalreddy [facility] [employer] Start: 02-24-2023 End: 02-24-2023 Lab Drop off Lety MAbhinav Vitalreddy [facility] Start: 02-24-2023 End: 02-24-2023 Patient encounter procedure Lety BorjaAbhinav Vitalreddy [facility] [employer] Start: 02-22-2023 End: 02-22-2023 ambulatory Luis Wojciech Other [employer] Other Start: 02-22-2023 Telephone encounter Luis Jeffrey [facility] Start: 02-17-2023 End: 02-17-2023 Patient encounter procedure JEMIMA MARQUEZ [facility] Start: 02-03-2023 End: 02-03-2023 Patient encounter procedure JEMIMA MARQUEZ [facility] [place] Start: 01-07-2023 End: 01-07-2023 ambulatory Luis Jeffrey Other [employer] Other Start: 01-07-2023 Telephone encounter Luis Jeffrey [facility] Start: 01-06-2023 End: 01-06-2023 Patient encounter procedure Lety Gonzalez [facility] Start: 12-23-2022 End: 12-23-2022 Patient encounter procedure Lety Gonzalez [facility] Start: 12-22-2022 Office outpatient vi sit 15 minutes Luis Jeffrey Work Phone: [facility] DO Work Phone: Start: 12-22-2022 ambulatory Gabino Mccormick y: Start: 12-17-2022 End: 12-18-[address] LUIS JEFFREY Facility: Start: 12-09-2022 End: 12-09-2022 ambulatory Luis Jeffrey Other [facility] [employer] Other Start: 12-09-2022 Office outpatient vi sit 15 minutes Luis Jeffrey [facility] Start: 12-09-2022 End: 12-09-2022 Patient encounter procedure Lety Gonzalez [facility] Start: 11-25-2022 End: 11-25-2022 Patient encounter procedure Lety Gonzalez [facility] Start: 11-20-2022 End: 11-20-2022 Lab Drop off Gurwinder Sanchez JORDA[facility] Start: 11-20-2022 End: 11-20-2022 Patient encounter procedure Lety Gonzalez [facility] [place] Start: 11-18-2022 End: 11-18-2022 Lab Drop off Lety Gonzalez [facility] Start: 11-18-2022 End: 11-18-2022 Patient encounter procedure Lety Gonzalez [facility] [place] Start: 11-11-2022 End: 11-11-2022 Patient encounter procedure Lety Gonzalez [facility] [place] Start: 10-28-2022 End: 10-28-2022 Patient encounter procedure JEMIMA MARQUEZ [facility] Start: 10-20-2022 [facility] Gabino Mccormick y: Start: 10-13-2022 End: 10-13-2022 Patient encounter procedure JEMIMA MARQUEZ [facility] [place] Start: 09-29-2022 End: 09-29-2022 Patient encounter procedure JEMIMA MARQUEZ [facility] [place] Start: 09-16-2022 End: 09-16-2022 Patient encounter procedure Lety Gonzalez [facility] [employer] Start: 09-09-2022 End: 09-09-2022 Patient encounter procedure Lety Gonzalez [facility] [place] [employer] Start: 09-02-2022 End: 09-02-2022 Patient encounter procedure Lety Gonzalez [facility] [employer] Start: 08-19-2022 End: 08-19-2022 Patient encounter procedure Lety Gonzalez [facility] [employer] Start: 08-11-2022 Rx Renewal Gabino Mederos n DO Work Phone: [facility] DO Work Phone: Start: 08-04-2022 End: 08-05-[address] SURJIT LOPEZ . Facility:[facility] Start: 08-04-2022 Adult health examination Luis Jeffrey Other [employer] Other Start: 08-04-2022 Problem, abnormal examination Luis Jeffrey Other [employer] Other Start: 07-29-2022 End: 07-30-[address] LUIS JEFFREY Facility:[facility] Start: 07-08-2022 End: 07-08-2022 Patient encounter procedure JEMIMA MARQUEZ [facility] Start: 06-15-2022 Rx Renewal Gabino Mederos n DO Work Phone: [facility] DO Work Phone: Start: 06-10-2022 End: 06-10-2022 Patient encounter procedure Lety BorjaAbhinav Vitalreddy [facility] Start: 05-22-2022 Rx Renewal Gabino Mederos n DO Work Phone: [facility] 250 DO Work Phone: Start: 05-13-2022 End: 05-14-[address] LUIS JEFFREY Facility:[facility] Start: 05-12-2022 Rx Renewal Jacqueline Tinoco [employer] Work Phone: [facility] 250 DO Work Phone: Start: 04-23-2022 End: 04-26-[address] CLAY EWING . Facility:[facility] Start: 04-15-2022 End: 04-16-[address] LUIS JEFFREY Facility:[facility] Start: 03-31-2022 End: 03-31-2022 Patient encounter procedure Venkat Proctor Jr. [facility] Start: 03-03-2022 End: 03-03-2022 Patient encounter procedure Venkat Proctor Jr. [facility] Start: 02-20-2022 End: 02-21-[address] LUIS JEFFREY Facility:[facility] Start: 02-03-2022 End: 02-03-2022 Patient encounter procedure Venkat Proctor Jr. [facility] Start: 01-12-2022 End: 01-13-2022 ambulatory NAM CANO Facility:[facility] Start: 01-06-2022 End: 01-06-2022 Patient encounter procedure Venkat Proctor Jr. [facility] Start: 12-09-2021 End: 12-09-2021 Patient encounter procedure Venkat Proctor Jr. [facility] Start: 07-14-2018 Patient encounter procedure PROVIDER UNKNOWN Facility:[id number] Procedures Date Procedure Procedure Detail Performing Clinician Start: 07-28-2024 Gluc bld gluc mntr d ev cleared fda spec home use Adrienne Rodriguez MD Work Phone: Start: 07-28-2024 End: 07-28-2024 Assay of magnesium Adrienne Rodriguez MD Work Phone: Start: 07-28-2024 Comprehensive metabo lic panel Emmett Sauer PA-C Work Phone: Start: 07-27-2024 Gluc bld gluc mntr d ev cleared fda spec home use Adrienne Rodriguez MD Work Phone: Start: 07-27-2024 Comprehensive metabo lic panel Emmett Sauer PA-C Work Phone: Start: 07-27-2024 Gluc bld gluc mntr d ev cleared fda spec home use Adrienne Rodriguez MD Work Phone: Start: 07-27-2024 Gluc bld gluc mntr d ev cleared fda spec home use Adrienne Rodriguez MD Work Phone: Start: 07-26-2024 Gluc bld gluc mntr d ev cleared fda spec home use Adrienne Rodriguez MD Work Phone: Start: 07-26-2024 Assay of lactate Adrienne Rodriguez MD Work Phone: Start: 07-26-2024 Gluc bld gluc mntr d ev cleared fda spec home use Adrienne Rodriguez MD Work Phone: Start: 07-26-2024 Urnls dip stick/tabl et rgnt auto w/o microscopy Stephanie Mayfield [employer] Work Phone: Start: 07-26-2024 Gluc bld gluc mntr d ev cleared fda spec home use Adrienne Rodriguez MD Work Phone: Start: 07-26-2024 End: 07-26-2024 Comprehensive metabolic panel Emmett Sauer PA-C Work Phone: Start: 07-26-2024 Gluc bld gluc mntr d ev cleared fda spec home use Adrienne Rodriguez MD Work Phone: Start: 07-25-2024 Radiologic exam abdo men 1 view Rona Gage MD Work Phone: Start: 07-25-2024 End: 07-25-2024 Comprehensive metabolic panel Emmett Sauer PA-C Work Phone: Start: 07-25-2024 Gluc bld gluc mntr d ev cleared fda spec home use Adrienne Rodriguez MD Work Phone: Start: 07-24-2024 Assay of magnesium Caity Rodriguez MD Work Phone: Start: 07-24-2024 Gluc bld gluc mntr d ev cleared fda spec home use Adrienne Rodriguez MD Work Phone: Start: 07-24-2024 Ecg routine ecg w/le ast 12 lds trcg only w/o i&r Stephanie [place] [employer] Work Phone: Start: 07-24-2024 Radiologic exam abdo men 1 view Analisa Ward DO Work Phone: Start: 07-24-2024 Gluc bld gluc mntr d ev cleared fda spec home use Adrienne Rodriguez MD Work Phone: Start: 07-24-2024 Basic metabolic pane l calcium total Analisa Ward DO Work Phone: Start: 07-24-2024 Hepatic function panel Analisa Ward DO Work Phone: Start: 05-25-2017 Screening for malign ant neoplasm of prostate Luis Jeffrey Other Start: 08-14-2013 General examination of patient Luis Jeffrey Other Aortic stent (physic al object) Lety Gonzalez Colonoscopy Gabino Deluca DO Work Phone: Depression screening Luis Jeffrey Other Great toe structure (body structure) Venkat [...] Treatment Date Care Activity Detail Author Start: 12-20-2024 ambulatory Ambulatory Facility:[facility] Start: 07-13-2024 End: 07-13-2024 Patient encounter procedure [facility] Comment on above: 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, unspecified whether jail insulin use (CMS/HCC) (Primary Dx); Foot ulcer, right, with fat layer exposed (CMS/HCC); Foot ulcer, left, with fat layer exposed (CMS/HCC) Start: 07-06-2024 End: 07-06-2024 Patient encounter procedure [facility] Comment on above: 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, unspecified whether jail insulin use (CMS/HCC) (Primary Dx); Foot ulcer, right, with fat layer exposed (CMS/HCC) Start: 06-29-2024 End: 06-29-2024 Patient encounter procedure 06/29/2024 11:20 AM EDT Office Visit [facility] [address] [phone] Gray Cancino, JAIME [address] [address] Diabetes 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 polyneuropathy, unspecified whether jail insulin use (CMS/HCC) (Primary Dx); Foot ulcer, right, with fat layer exposed (CMS/HCC); Foot ulcer, left, with fat layer exposed (CMS/HCC) [facility] Comment on above: 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, unspecified whether intermission coordinator insulin use (CMS/HCC) (Primary Dx); Foot ulcer, right, with fat layer exposed (CMS/HCC); Foot ulcer, left, with fat layer exposed (CMS/HCC) Start: 06-15-2024 End: 06-15-2024 Patient encounter procedure 06/15/2024 1:50 PM EDT Office Visit [facility] [address] [phone] Gray Cancino, JAIME [address] [address] Diabetes 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 polyneuropathy, unspecified whether jail insulin use (CMS/HCC) (Primary Dx); Foot ulcer, right, with fat layer exposed (CMS/HCC); Foot ulcer, left, with fat layer exposed (CMS/HCC); PVD (peripheral vascular disease) (CMS/HCC) [facility] Comment on above: 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, unspecified whether intermission coordinator insulin use (CMS/HCC) (Primary Dx); Foot ulcer, right, with fat layer exposed (CMS/HCC); Foot ulcer, left, with fat layer exposed (CMS/HCC); PVD (peripheral vascular disease) (CMS/HCC) Start: 06-15-2024 End: 06-15-2024 Patient encounter procedure 06/15/2024 8:50 AM EDT Office Visit [facility] [address] [phone] Gray Cancino DPM [address] [address] [facility] Start: 06-08-2024 End: 06-08-2024 Patient encounter procedure [facility] Comment on above: 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, unspecified whether intermission coordinator insulin use (CMS/HCC) (Primary Dx); Foot ulcer, right, with fat layer exposed (CMS/HCC) Start: 06-01-2024 End: 06-01-2024 Patient encounter procedure 06/01/2024 9:00 AM EDT Office Visit [facility] [address] [phone] Gray Cancino DPM [address] [address] Diabetes 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 polyneuropathy, unspecified whether jail insulin use (CMS/HCC) (Primary Dx); Foot ulcer, right, with fat layer exposed (CMS/HCC); PVD (peripheral vascular disease) (CMS/HCC) [facility] Comment on above: 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, unspecified whether jail insulin use (CMS/HCC) (Primary Dx); Foot ulcer, right, with fat layer exposed (CMS/HCC); PVD (peripheral vascular disease) (CMS/HCC) Start: 05-25-2024 End: 05-25-2024 Patient encounter procedure [facility] Comment on above: 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, unspecified whether intermission coordinator insulin use (CMS/HCC) (Primary Dx); Foot ulcer, right, with fat layer exposed (CMS/HCC); PVD (peripheral vascular disease) (CMS/HCC) Start: 05-18-2024 End: 05-18-2024 Patient encounter procedure 05/18/2024 10:00 AM EDT Office Visit [facility] [address] [facility] [address] [place] [address] Gray Cancino, DPM [address] [address] [facility] Start: 05-11-2024 End: 05-11-2024 Patient encounter procedure 05/11/2024 10:10 AM EDT Office Visit [facility] [address] [facility] [address] [place] [address] Gray Cancino DPM [address] [address] [facility] Start: 05-07-2024 Influenza vaccination Influenza Vacc ine (#1) [facility] Start: 05-04-2024 End: 05-04-2024 Patient encounter procedure 05/04/2024 10:20 AM EDT Office Visit [facility] [address] [phone] Gray Cancino, DPM [address] [address] Arrived [facility] Comment on above: Arrived Start: 04-17-2024 Patient referral [facility] Work Phone: Start: 03-01-2024 Patient referral [facility] Work Phone: Start: 12-22-2023 FUV, Provider: Jacqueline Ku, Status: Pen, Time: 10:00 AM [facility], Provider: Jacqueline Ku, Status: Pen, Time: 10:00 AM [facility] 250 DO Work Phone: Start: 11-30-2023 Patient referral [facility] Work Phone: Start: 10-20-2022 FUV, Provider: Gabino Deluca, Status: Pen, Time: 9:30 AM [facility], Provider: Gabino Deluca, Status: Pen, Time: 9:30 AM [facility] 250 DO Work Phone: Start: 08-05-2022 FUV, Provider: Gabino Deluca, Status: Pen, Time: 10:30 AM [facility]UV, Provider: Gabino Deluca, Status: Pen, Time: 10:30 AM [facility] DO Work Phone: Start: 1960 Screening for malign ant neoplasm of colon [facility] Ankle brachial press ure index [facility] Comprehensive metabo lic 1999 panel - Serum or Plasma [facility] Comprehensive metabo lic 1999 panel - Serum or Plasma [facility] Patient referral [facility] Work Phone: US Lower extremity v ein - bilateral [facility] US.doppler Lower extremity artery Vascular US lower extremity arterial Doppler complete Vascular Ultrasound Routine PVD (peripheral vascular disease) (CMS/HCC) Ordered: 05/04/2024 [facility] Work Phone: Comment on above: Ordered: 05/04/2024 [facility] Immunizations Immunization Date Immunization Notes Care Provider Fa saskia 07-04-2021 Pfizer-BioNTech COVID-19 Vacc 30 MCG/0.3ML Intramuscular Suspension Gabino Deluca DO Work Phone: [facility] Comment on above: Result Comment: 2021: [id number] 12-01-2020 Pfizer-BioNTech COVID-19 Vacc 30 MCG/0.3ML Intramuscular Suspension Gabino Deluca DO Work Phone: [facility] Comment on above: Result Comment: 2021: TPV60 11-12-2020 Pfizer-BioNTech COVID-19 Vacc 30 MCG/0.3ML Intramuscular Suspension Gabino Munozdon Work Phone: [facility] Comment on above: Result Comment: 2021: [id number] NEGATED: Highlighted row has not occurred!09-15-2023 influenza virus vaccine, unspecified formulation Lety Gonzalez [facility] Payers Date Payer Category Payer Unknown [id number] 2024 Private Health Insurance [id number] 2024 Private Health Insurance [id number] 2023 Self-pay [id number] 2022 Unknown [id number] 1960 Unknown [id number] 1960 Unknown [id number] 1960 Unknown [id number] 1960 Unknown [id number] 2.16.840.1.541683.3.579.2.5 93 1960 Unknown [id number] 2.16.840.1.107007.3.579.2.5 93 1960 Unknown [id number] 2.16.840.1.604425.3.579.2.5 93 1960 Unknown [id number] 2.16.840.1.594029.3.579.2.5 93 1960 Unknown [id number] 2.16.840.1.001903.3.579.2.5 93 1960 Unknown [id number] 2.16.840.1.696484.3.579.2.5 93 1960 Unknown [id number] 2.16.840.1.380571.3.579.2.3 56 1960 Unknown [id number] 2.16.840.1.187436.3.579.2.3 56 1960 Unknown [id number] 2.16.840.1.005146.3.579.2.7 27 1960 Unknown [id number] 2.16.840.1.138167.3.579.2.7 27 1960 Unknown [id number] 2.16.840.1.711522.3.579.2.7 27 1960 Unknown [id number] 2.16.840.1.508897.3.579.2.7 27 1960 Unknown [id number] 2.16.840.1.035601.3.579.2.7 27 1960 Unknown [id number] 2.16.840.1.129703.3.579.2.7 27 1960 Unknown [id number] 2.16.840.1.505952.3.579.2.7 27 1960 Unknown [id number] 2.16.840.1.745049.3.579.2.7 27 1960 Unknown [id number] 2.16.840.1.150422.3.579.2.7 27 1960 Unknown [id number] 2.16.840.1.477396.3.579.2.7 27 1960 Unknown [id number] 2.16.840.1.494153.3.579.2.7 27 1960 Unknown [id number] 2.16.840.1.526458.3.579.2.7 27 1960 Unknown [id number] 2.16.840.1.870445.3.579.2.7 27 1960 Unknown [id number] 2.16.840.1.376666.3.579.2.7 27 1960 Unknown [id number] 2.16.840.1.956072.3.579.2.7 27 1960 Unknown [id number] 2.16.840.1.388442.3.579.2.7 27 1960 Unknown [id number] 2.16.840.1.660469.3.579.2.7 27 1960 Unknown [id number] 2.16.840.1.254806.3.579.2.7 27 1960 Unknown [id number] 2.16.840.1.052683.3.579.2.7 27 1960 Unknown [id number] 2.16.840.1.080278.3.579.2.7 27 1960 Unknown [id number] 2.16.840.1.634696.3.579.2.7 27 1960 Unknown [id number] 2.16.840.1.405534.3.579.2.7 27 1960 Unknown [id number] 2.16.840.1.247721.3.579.2.7 27 1960 Unknown [id number] 2.16.840.1.059418.3.579.2.7 27 1960 Unknown [id number] 2.16.840.1.942969.3.579.2.7 27 1960 Unknown [id number] 2.16.840.1.786315.3.579.2.7 27 1960 Unknown [id number] 2.16.840.1.956551.3.579.2.7 27 1960 Unknown [id number] 2.16.840.1.136725.3.579.2.7 27 1960 Unknown [id number] 2.16.840.1.951073.3.579.2.7 27 1960 Unknown [id number] 2.16.840.1.091045.3.579.2.7 27 1960 Unknown [id number] 2.16.840.1.709962.3.579.2.7 27 1960 Unknown [id number] 2.16.840.1.056737.3.579.2.1 259 1960 Unknown [id number] 2.16.840.1.953046.3.579.2.1 259 1960 Unknown [id number] 2.16.840.1.096139.3.579.2.1 259 1960 Unknown [id number] 2.16.840.1.873049.3.579.2.1 259 1960 Unknown [id number] 2.16.840.1.216728.3.579.2.1 259 1960 Unknown [id number] 2.16.840.1.795830.3.579.2.1 259 1960 Unknown [id number] 2.16.840.1.084763.3.579.2.1 259 1960 Unknown [id number] 2.16.840.1.717948.3.579.2.1 259 1960 Unknown [id number] 2.16.840.1.293242.3.579.2.1 259 1960 Unknown [id number] 2.16.840.1.136752.3.579.2.1 259 1960 Unknown [id number] 2.16.840.1.860236.3.579.2.1 286 1960 Unknown [id number] 2.16.840.1.225707.3.579.2.1 286 1960 Unknown [id number] 2.16.840.1.227735.3.579.2.1 286 1960 Unknown [id number] 2.16.840.1.821783.3.579.2.1 286 1960 Unknown [id number] 2.16.840.1.733905.3.579.2.7 27 1960 Unknown [id number] 2.16.840.1.829140.3.579.2.7 27 1960 Unknown [id number] 2.16.840.1.036729.3.579.2.7 27 1960 Unknown [id number] 2.16.840.1.137881.3.579.2.7 27 1960 Unknown [id number] 2.16.840.1.404072.3.579.2.7 27 1960 Unknown [id number] 2.16.840.1.671123.3.579.2.7 27 1960 Unknown [id number] 2.16.840.1.283055.3.579.2.7 27 1960 Unknown [id number] 2.16.840.1.810432.3.579.2.7 27 1960 Unknown [id number] 2.16.840.1.274079.3.579.2.7 27 1960 Unknown [id number] 2.16.840.1.919326.3.579.2.7 27 1960 Unknown [id number] 2.16.840.1.908144.3.579.2.7 27 1960 Unknown [id number] 2.16.840.1.952142.3.579.2.7 27 1960 Unknown [id number] 2.16.840.1.566508.3.579.2.7 27 1960 Unknown [id number] 2.16.840.1.159444.3.579.2.7 27 1960 Unknown [id number] 2.16.840.1.465149.3.579.2.7 27 1960 Unknown [id number] 2.16.840.1.612822.3.579.2.7 27 1960 Unknown [id number] 2.16.840.1.619927.3.579.2.7 27 1960 Unknown [id number] 2.16.840.1.461285.3.579.2.7 27 1960 Unknown [id number] 2.16.840.1.662847.3.579.2.7 27 1960 Unknown [id number] 2.16.840.1.663197.3.579.2.7 1960 Unknown [id number] 2.16.840.1.803945.3.579.2.7 27 1960 Unknown [id number] 2.16.840.1.874616.3.579.2.7 1960 Unknown [id number] 2.16.840.1.698349.3.579.2.7 1960 Unknown [id number] 2.16.840.1.878946.3.579.2.7 1960 Unknown [id number] 2.16.840.1.469362.3.579.2.7 27 1960 Unknown [id number] 2.16.840.1.820418.3.579.2.7 27 1960 Unknown [id number] 2.16.840.1.080478.3.579.2.7 27 1960 Unknown [id number] 2.16.840.1.262553.3.579.2.7 27 1960 Unknown [id number] 2.16.840.1.806678.3.579.2.7 27 1960 Unknown [id number] 2.16.840.1.225965.3.579.2.7 1959 Unknown [id number] Private Health Insurance [facility] [id number] Unknown COMMERCIAL Unknown [employer] [id number] Unknown Ronda BC/BS [id number] Social History Date Type Detail Facility Start: 07-03-2021 End: 05-01-2024 Tobacco smoking status Ex-smoker (finding) [facility] Start: 06-01-2024 End: 07-24-2024 Sex Assigned At Male [facility] Start: 05-04-2024 End: 07-24-2024 Caffeine use Caffeine use -[facility] [employer] DO Work Phone: Comment on above: coffee all day long; quit 2012 1ppd; Tobacco smoking status Never [facility] Start: 1960 Sex Assigned At Male F [facility] Start: 05-04-2004 History of tobacco use Current smoke r [facility] Start: 05-04-2004 History of tobacco use Cigarette Smo ker [facility] Start: 05-04-2024 Tobacco use and exposure Smokeless tobacco non-user [facility] Start: 05-25-2024 End: 06-01-2024 Alcoholic beverage intake Def[facility] Start: 1960 Sex assigned at Not on file [facility] consumption unknown [facility] Has the [employer], [employer], [employer], or water company threatened to shut off services in your home in past 12Mo No [facility] Start: 07-23-2024 End: 11-20-2024 Sex Male (finding) [facility] Medical Equipment Procedure Code Equipment Code Equipment [...] 28 gauge misc Start: 11-16-2023 End: 11-16-2023 Blood Sugar Diagnostic strip Start: 02-24-2024 Blood Sugar Diagnostic strip Start: 02-23-2024 Lancets (Freesty le Lancets) 28 gauge misc Start: 11-16-2023 Lancets (Freesty le Lancets) 28 gauge misc Start: 11-16-2023 End: 11-16-2023 Functional Status Date Assessment Result Facility 10-26-2024 Functional Status N/A [facility] 03-08-2024 Functional Status N/A [facility] 09-15-2023 Functional Status N/A [facility] 03-03-2023 Functional Status No [facility] 11-25-2022 Functional Status N/A [facility] 09-09-2022 Functional Status N/A [facility] 08-19-2022 Functional Status N/A [facility] Clinical Notes 05-27-2022 to 10-26-2024 [facility] Francisca Mcfadden, ANTOINETTE - 07/28/2024 2:45 PM [facility] Francisca Coleapp, ANTOINETTE - 07/28/2024 2:45 PM [facility] - Erwin MarieSHARONDA tobin - 07/28/2024 12:02 AM EST Note Date & Type Note Facility 10-26-2024 Hospital Discharge instructions Patient Education 10/26/2024 09:58:58 Hypogonadism, Male Hypogonadism, Male Male hypogonadism is [...] therapy. Follow these instructions at home: Take ybsl-hdf-szyxsny and prescription medicines only as told by [...] provider. Document Revised: 04/24/2021 Document Reviewed: 04/24/2021 [employer] Patient Education 2023 [employer]. Follow Up Care 10/25/2024 12:29:07 With:Carlos LIZAMA, SHAYY Hernandes, URO Address: When: Unknown [facility] 10-26-2024 Note Patient Education Urology Hypogonadism, Male Male hypogonadism is a condition of having a level of testosterone that is lower than normal. Testosterone is a chemical, or hormone, that is made mainly in the testicles. In boys, testosterone is responsible for the development of male characteristics during puberty. These include: ??? Making the penis bigger. ??? Growing and building the muscles. ??? Growing facial hair. ??? Deepening the voice. In adult men, testosterone is responsible for maintaining: ??? An interest in sex and the ability to have sex. ??? Muscle mass. ??? Sperm production. ??? Red blood cell production. ??? Bone strength. Testosterone also gives men energy [...] the causes? This condition is caused by: ??? A natural decrease in testosterone that occurs as a man grows older. This is the main cause of this condition. ??? Use of medicines, such as antidepressants, steroids, and opioids. ??? Diseases and conditions that affect the testicles [...] symptoms? Common symptoms of this condition include: ??? Loss of interest in sex (low sex drive). ??? Inability to have or maintain an erection (erectile dysfunction). ??? Feeling tired (fatigue). ??? Mood changes, like irritability or depression. ??? Loss of muscle and body hair. ??? Infertility. ??? Large breasts. ??? Weight gain (obesity). How is this diagnosed? Your health care provider can diagnose hypogonadism based on: ??? Your signs and symptoms. ??? A physical exam to check your testosterone [...] replacement therapy. Testosterone can be given by: ??? Injection or through pellets inserted under the skin. ??? Gels or patches placed on the skin or in the mouth. Testosterone therapy is not for everyone. It has risks and side effects. Your health care provider will consider your medical history, your risk for prostate cancer, your age, and your symptoms before putting you on testosterone replacement therapy. Follow these instructions at home: ??? Take hxjd-ugy-vgnjncd and prescription medicines only as told by your health care provider. ??? Eat foods that are high in fiber, such as beans, whole grains, and fresh fruits and vegetables. Limit foods that are high in fat and processed sugars, such as fried or sweet foods. ??? If you drink alcohol: ? Limit how much you have to 0?2 drinks a day. ? Know how much alcohol is in your drink. In the [place] one drink equals one 12 oz bottle of beer (355 mL), one 5 oz glass of wine (148 mL), or one 1? oz glass of hard liquor (44 mL). ??? Return to your normal activities as told by your health care provider. Ask your health care provider what activities are safe for you. ??? Keep all follow-up visits. This is important. Contact a health care provider if: ??? You have any of the signs or symptoms of low testosterone. ??? You have any side effects from testosterone therapy. Summary ??? Male hypogonadism is a condition of having a level of testosterone that is lower than normal. ??? The natural drop in testosterone production that occurs with age is the most common cause of this condition. ??? Low testosterone can also be caused by many diseases and conditions that affect the testicles and the making of testosterone. ??? This condition is treated with testosterone replacement therapy. ??? There are risks and side effects of testosterone therapy. Your health care provider will consider your age, medical history, symptoms, and risks for prostate cancer before putting you on testosterone therapy. This information is not intended to replace advice given to you by your health care provider. Make sure you discuss any (more content not included)... [facility] 09-08-2024 Evaluation + Plan note Future Scheduled TestsTestosterone Level Total 09/08/24 [facility] 07-28-2024 Plan of care note Problem: Pain Goal: Patient goal is pain score less than 4, able to rest, and participant in treatment plan as appropriate Description: INTERVENTIONS: 1. Encourage patient or legal rental representative to report early pain and ask for pain medicine when needed 2. Assess pain using appropriate pain scale and include the scale used when documenting 3. Administer analgesics based on type and severity of pain and evaluate response within appropriate time frame 4. Implement non-pharmacological measures as appropriate and evaluate response 5. Consider cultural and social influences on pain and pain management 6. Notify LIP if interventions ineffective or patient reports new pain 7. Monitor vital signs including pulse ox, end-tidal CO2 based on pain intervention 8. Reassess pain per policy 9. Teach patient or legal rental representative interventions for comforting Outcome: Adequate for Discharge Problem: Safety Goal: Patient will be injury free during hospitalization Description: INTERVENTIONS: 1. Assess patient's risk for falls and implement fall prevention plan of care per policy 2. Provide and maintain a safe environment 3. Proper use of double Identifiers 4. Medication administration using the 5 rights 5. Hand hygiene 6. Specimens are labeled at the bedside 7. Instruct patient/ patient rental representative about use of safety devices 8. Include patient/ patient rental representative in decisions related to safety Outcome: Adequate for Discharge Problem: Infection Goal: Absence of infection during hospitalization Description: Interventions: 1. Assess and monitor for signs and symptoms of infection 2. Monitor lab/diagnostic results 3. Monitor all insertion sites i.e., indwelling lines, tubes and drains 4. Monitor endotracheal (as able) and nasal secretions for changes in amount and color 5. Administer medications as ordered 6. Instruct and encourage patient and family to use good hand hygiene technique 7. Identify and instruct patient/patient rental representative in use of appropriate isolation precautions for identified infection/symptoms 8. Provide and discuss with patient/patient rental representative on educational MDRO sheet 9. Encourage and monitor nutritional status daily and consult model maker scale if indicated 10. Implement neutropenic guidelines as needed 11. Review exposure to history of communicable disease and recent travel history on admission 12. Encourage annual influenza vaccine 13. Encourage pneumonia vaccine Outcome: Adequate for Discharge Problem: Knowledge Deficit Goal: Patient/patient rental representative demonstrates understanding of disease process, treatment plan, medications, and discharge instructions Description: INTERVENTIONS 1. Complete learning assessment and assess knowledge base 2. Provide teaching at level of understanding 3. Provide teaching via preferred learning method(s) Outcome: Adequate for Discharge Problem: Discharge Planning Goal: Discharge to post-acute care, other facility, or home with appropriate resources Description: Patient's goal is: INTERVENTIONS 1. Conduct assessment to determine patient/family and health care team treatment goals, and need for post-acute services based on payer coverage, community resources, and patient preferences, and barriers to discharge 2. Coordinate with Social work, Care Navigation, and Utilization Review to arrange appropriate level of services according to patient's needs based on patient preference and payer coverage in collaboration with the physician and health care team 3. Address psychosocial, clinical, and financial barriers to discharge as identified in assessment in conjunction with the patient/family and health care team 4. Consult appropriate ancillary services (i.e.. PT/OT/ST, etc) as needed 5. Communicate with and update the patient/family, physician, and health care team regarding progress on the discharge plan 6. Identify discharge learning needs (meds, wound care, etc). 7. Arrange for needed discharge transportation as appropriate Outcome: Adequate for Discharge Problem: Low Risk Fall Score Description: Pacheco Fall Score of 0 - 24 or indicated by [facility] Assessment Goal: Patient should be free from fall Description: Interventions: 1. [place] to environment 2. Hourly rounds addressing the 4 P's (Pain, Positioning, Possessions, Potty) 3. Clear area of hazards (spills, clutter, electrical cords, unnecessary equipment) 4. Place equipment (bed & TV controls, call light, phone, urinal) within reach 5. Encourage patient to wear glasses and hearing aides as appropriate 6. Maintain bed in lowest position 7. Lock wheels on bed/wheelchair 8. Provide adequate lighting, including night light 9. Assess need for additional bedding, food/fluids, pain med's prior to sleep/routinely 10. Provide gripper slippers or personal non-skid footwear 11. Teach patient and patient rental representative to maintain environment for safety and engage in all aspects of fall prevention program Outcome: Adequate for Discharge Problem: Potential for Compromised Skin Integrity Goal: Skin integrity is maintained or improved Description: Patient's goal is: INTERVENTIONS 1. Perform initial skin assessment on admission and as needed 2. Turn patient every 2 hours and PRN 3. Relieve pressure to bony prominences 4. Avoid shearing 5. Keep skin clean and dry 6. Alternate a full bath with partial baths for elderly 7. Apply lotion/moisturizer on skin 8. Monitor patient's hygiene practices 9. Float heels 10. Collaborate with interdisciplinary team and initiate plans and interventions as needed Outcome: Adequate for Discharge Goal: Patient's nutritional intake is adequate Description: Patient's goal is: INTERVENTIONS 1. Assess and monitor food intake and supplements, patient food preferences, nausea, vomiting, labs, oral cavity (gums, teeth, tongue, mucosa), proper denture fit, and cultural beliefs 2. Monitor for signs of hypoglycemia and hyperglycemia 3. Collaborate with interdisciplinary team and initiate plan and interventions as ordered 4. Monitor patient's weight 5. Assist patient with meals/food selection 6. Assist patient with eating 7. Allow adequate time for meals 8. Provide pleasant environment during mealtime 9. Increase social contact during mealtimes 10. Plan activities to conserve energy 11. Encourage/perform oral hygiene as appropriate 12. Encourage patient to take dietary supplement as ordered 13. Collaborate with clinical model maker scale 14. Include patient/ patient's rental representative in decisions related to nutrition Outcome: Adequate for Discharge Problem: Urinary Incontinence Goal: Perineal skin integrity is maintained or improved Description: INTERVENTIONS 1. Assess genitourinary system, perineal skin, labs (urinalysis), and history of incontinence to include past management, aggravating, and alleviating factors 2. Keep skin clean and dry 3. Apply skin protectant 4. Develop skin care regimen 5. Provide privacy when changing patients incontinence device to maintain their dignity 6. Consider placing an indwelling catheter 7. Collaborate with interdisciplinary team and initiate plans and interventions as needed Outcome: Adequate for Discharge Problem: Moderate - High Risk Fall Score Description: Pacheco Fall Score of =/> 25 or indicated by [facility] Assessment Goal: Patient should be free from fall Description: Interventions: 1. [place] to environment 2. Hourly rounds addressing the 4 P's (Pain, Positioning, Possessions, Potty) 3. Clear area of hazards (spills, clutter, electrical cords, unnecessary equipment) 4. Place equipment (bed & TV controls, call light, phone, urinal) within reach 5. Encourage patient to wear glasses and hearing aides as appropriate 6. Maintain bed in lowest position 7. Lock wheels on bed/wheelchair 8. Provide adequate lighting, including night light 9. Assess need for additional bedding, food/fluids, pain med's prior to sleep/routinely 10. Provide gripper slippers or personal non-skid footwear 11. Teach patient and patient rental representative to maintain environment for safety and engage in all aspects of fall prevention program 12. Remind patient to call for help before getting out of bed 13. Initiate bed/chair/exit alarms supportive devices as appropriate, (chair wedge, no-skid floor mat, raised edge mattress, hip protectors) 14. Locate patient bed assignment for optimal visualization 15. Evaluate and identify Safe Patient Handling Equipment needs 16. Provide supervision when out of bed or chair 17. Utilize gait belt as needed to assist with ambulation 18. Place adaptive equipment (cane, walker) within reach 19. Request patient rental representative bring adaptive equipment/mobility aids from home or obtain and provide as needed 20. Consult pharmacy regarding effects of med's affecting mobility, cognition, and alternatives 21. Obtain physician order for PT if risk factors associated with mobility are present 22. Obtain physician order for OT as appropriate 23. Utilize diversional activities 24. Educate patient and patient rental representative how to maintain a safe environment during visitation times (notify nurse prior to leaving bedside) 25. Consider appropriateness of medical or non-medical reimbursement manager 26. Set up voiding schedule as appropriate (every 2 hours) Outcome: Adequate for Discharge Problem: Glucose Imbalance Goal: Clinical indication of glucose balance is achieved Description: Patient's goal is: INTERVENTIONS 1. Monitor blood glucose levels as ordered 2. Administer medications as ordered 3. Notify physician of ineffective treatment plan Outcome: Adequate for Discharge Goal: Patient's discharge needs are met Description: Patient's goal is: INTERVENTIONS 1. Assess patient for self-management skills 2. Encourage participation in diabetes management 3. Identify potential discharge barriers on admission and throughout hospital stay 4. Involve patient/S.O. in discharge planning process 5. Communicate referral to agricultural extension educator as appropriate 6. Communicate referral to model maker scale as appropriate 7. Collaborate with case management/web content & social media manager for discharge needs Outcome: Adequate for Discharge [facility] 07-28-2024 Miscellaneous Notes Problem: Pain Goal: Patient goal is pain score less than 4, able to rest, and participant in treatment plan as appropriate Description: INTERVENTIONS: 1. Encourage patient or legal rental representative to report early pain and ask for pain medicine when needed 2. Assess pain using appropriate pain scale and include the scale used when documenting 3. Administer analgesics based on type and severity of pain and evaluate response within appropriate time frame 4. Implement non-pharmacological measures as appropriate and evaluate response 5. Consider cultural and social influences on pain and pain management 6. Notify LIP if interventions ineffective or patient reports new pain 7. Monitor vital signs including pulse ox, end-tidal CO2 based on pain intervention 8. Reassess pain per policy 9. Teach patient or legal rental representative interventions for comforting Outcome: Adequate for Discharge Problem: Safety Goal: Patient will be injury free during hospitalization Description: INTERVENTIONS: 1. Assess patient's risk for falls and implement fall prevention plan of care per policy 2. Provide and maintain a safe environment 3. Proper use of double Identifiers 4. Medication administration using the 5 rights 5. Hand hygiene 6. Specimens are labeled at the bedside 7. Instruct patient/ patient rental representative about use of safety devices 8. Include patient/ patient rental representative in decisions related to safety Outcome: Adequate for Discharge Problem: Infection Goal: Absence of infection during hospitalization Description: Interventions: 1. Assess and monitor for signs and symptoms of infection 2. Monitor lab/diagnostic results 3. Monitor all insertion sites i.e., indwelling lines, tubes and drains 4. Monitor endotracheal (as able) and nasal secretions for changes in amount and color 5. Administer medications as ordered 6. Instruct and encourage patient and family to use good hand hygiene technique 7. Identify and instruct patient/patient rental representative in use of appropriate isolation precautions for identified infection/symptoms 8. Provide and discuss with patient/patient rental representative on educational MDRO sheet 9. Encourage and monitor nutritional status daily and consult model maker scale if indicated 10. Implement neutropenic guidelines as needed 11. Review exposure to history of communicable disease and recent travel history on admission 12. Encourage annual influenza vaccine 13. Encourage pneumonia vaccine Outcome: Adequate for Discharge Problem: Knowledge Deficit Goal: Patient/patient rental representative demonstrates understanding of disease process, treatment plan, medications, and discharge instructions Description: INTERVENTIONS 1. Complete learning assessment and assess knowledge base 2. Provide teaching at level of understanding 3. Provide teaching via preferred learning method(s) Outcome: Adequate for Discharge Problem: Discharge Planning Goal: Discharge to post-acute care, other facility, or home with appropriate resources Description: Patient's goal is: INTERVENTIONS 1. Conduct assessment to determine patient/family and health care team treatment goals, and need for post-acute services based on payer coverage, community resources, and patient preferences, and barriers to discharge 2. Coordinate with Social work, Care Navigation, and Utilization Review to arrange appropriate level of services according to patient's needs based on patient preference and payer coverage in collaboration with the physician and health care team 3. Address psychosocial, clinical, and financial barriers to discharge as identified in assessment in conjunction with the patient/family and health care team 4. Consult appropriate ancillary services (i.e.. PT/OT/ST, etc) as needed 5. Communicate with and update the patient/family, physician, and health care team regarding progress on the discharge plan 6. Identify discharge learning needs (meds, wound care, etc). 7. Arrange for needed discharge transportation as appropriate Outcome: Adequate for Discharge Problem: Low Risk Fall Score Description: Pacheco Fall Score of 0 - 24 or indicated by [facility] Assessment Goal: Patient should be free from fall Description: Interventions: 1. [place] to environment 2. Hourly rounds addressing the 4 P's (Pain, Positioning, Possessions, Potty) 3. Clear area of hazards (spills, clutter, electrical cords, unnecessary equipment) 4. Place equipment (bed & TV controls, call light, phone, urinal) within reach 5. Encourage patient to wear glasses and hearing aides as appropriate 6. Maintain bed in lowest position 7. Lock wheels on bed/wheelchair 8. Provide adequate lighting, including night light 9. Assess need for additional bedding, food/fluids, pain med's prior to sleep/routinely 10. Provide gripper slippers or personal non-skid footwear 11. Teach patient and patient rental representative to maintain environment for safety and engage in all aspects of fall prevention program Outcome: Adequate for Discharge Problem: Potential for Compromised Skin Integrity Goal: Skin integrity is maintained or improved Description: Patient's goal is: INTERVENTIONS 1. Perform initial skin assessment on admission and as needed 2. Turn patient every 2 hours and PRN 3. Relieve pressure to bony prominences 4. Avoid shearing 5. Keep skin clean and dry 6. Alternate a full bath with partial baths for elderly 7. Apply lotion/moisturizer on skin 8. Monitor patient's hygiene practices 9. Float heels 10. Collaborate with interdisciplinary team and initiate plans and interventions as needed Outcome: Adequate for Discharge Goal: Patient's nutritional intake is adequate Description: Patient's goal is: INTERVENTIONS 1. Assess and monitor food intake and supplements, patient food preferences, nausea, vomiting, labs, oral cavity (gums, teeth, tongue, mucosa), proper denture fit, and cultural beliefs 2. Monitor for signs of hypoglycemia and hyperglycemia 3. Collaborate with interdisciplinary team and initiate plan and interventions as ordered 4. Monitor patient's weight 5. Assist patient with meals/food selection 6. Assist patient with eating 7. Allow adequate time for meals 8. Provide pleasant environment during mealtime 9. Increase social contact during mealtimes 10. Plan activities to conserve energy 11. Encourage/perform oral hygiene as appropriate 12. Encourage patient to take dietary supplement as ordered 13. Collaborate with clinical model maker scale 14. Include patient/ patient's rental representative in decisions related to nutrition Outcome: Adequate for Discharge Problem: Urinary Incontinence Goal: Perineal skin integrity is maintained or improved Description: INTERVENTIONS 1. Assess genitourinary system, perineal skin, labs (urinalysis), and history of incontinence to include past management, aggravating, and alleviating factors 2. Keep skin clean and dry 3. Apply skin protectant 4. Develop skin care regimen 5. Provide privacy when changing patients incontinence device to maintain their dignity 6. Consider placing an indwelling catheter 7. Collaborate with interdisciplinary team and initiate plans and interventions as needed Outcome: Adequate for Discharge Problem: Moderate - High Risk Fall Score Description: Pacheco Fall Score of =/> 25 [facility] Goal: Patient should be free from fall Description: Interventions: 1. [place] to environment 2. Hourly rounds addressing the 4 P's (Pain, Positioning, Possessions, Potty) 3. Clear area of hazards (spills, clutter, electrical cords, unnecessary equipment) 4. Place equipment (bed & TV controls, call light, phone, urinal) within reach 5. Encourage patient to wear glasses and hearing aides as appropriate 6. Maintain bed in lowest position 7. Lock wheels on bed/wheelchair 8. Provide adequate lighting, including night light 9. Assess need for additional bedding, food/fluids, pain med's prior to sleep/routinely 10. Provide gripper slippers or personal non-skid footwear 11. Teach patient and patient rental representative to maintain environment for safety and engage in all aspects of fall prevention program 12. Remind patient to call for help before getting out of bed 13. Initiate bed/chair/exit alarms supportive devices as appropriate, (chair wedge, no-skid floor mat, raised edge mattress, hip protectors) 14. Locate patient bed assignment for optimal visualization 15. Evaluate and identify Safe Patient Handling Equipment needs 16. Provide supervision when out of bed or chair 17. Utilize gait belt as needed to assist with ambulation 18. Place adaptive equipment (cane, walker) within reach 19. Request patient rental representative bring adaptive equipment/mobility aids from home or obtain and provide as needed 20. Consult pharmacy regarding effects of med's affecting mobility, cognition, and alternatives 21. Obtain physician order for PT if risk factors associated with mobility are present 22. Obtain physician order for OT as appropriate 23. Utilize diversional activities 24. Educate patient and patient rental representative how to maintain a safe environment during visitation times (notify nurse prior to leaving bedside) 25. Consider appropriateness of medical or non-medical reimbursement manager 26. Set up voiding schedule as appropriate (every 2 hours) Outcome: Adequate for Discharge Problem: Glucose Imbalance Goal: Clinical indication of glucose balance is achieved Description: Patient's goal is: INTERVENTIONS 1. Monitor blood glucose levels as ordered 2. Administer medications as ordered 3. Notify physician of ineffective treatment plan Outcome: Adequate for Discharge Goal: Patient's discharge needs are met Description: Patient's goal is: INTERVENTIONS 1. Assess patient for self-management skills 2. Encourage participation in diabetes management 3. Identify potential discharge barriers on admission and throughout hospital stay 4. Involve patient/S.O. in discharge planning process 5. Communicate referral to agricultural extension educator as appropriate 6. Communicate referral to model maker scale as appropriate 7. Collaborate with case management/web content & social media manager for discharge needs Outcome: Adequate for Discharge DISCHARGE PLANNING NOTE Sw reviewed pts chart and discharge is written. No needs for discharge. - SEMAJ Moss 07/28/24 2:23 PM Problem: Pain Goal: Patient goal is pain score less than 4, able to rest, and participant in treatment plan as appropriate Description: INTERVENTIONS: 1. Encourage patient or legal rental representative to report early pain and ask for pain medicine when needed 2. Assess pain using appropriate pain scale and include the scale used when documenting 3. Administer analgesics based on type and severity of pain and evaluate response within appropriate time frame 4. Implement non-pharmacological measures as appropriate and evaluate response 5. Consider cultural and social influences on pain and pain management 6. Notify LIP if interventions ineffective or patient reports new pain 7. Monitor vital signs including pulse ox, end-tidal CO2 based on pain intervention 8. Reassess pain per policy 9. Teach patient or legal rental representative interventions for comforting Outcome: Progressing Note: Evaluation of progress towards goal: Patient encouraged to report pain early. Problem: Safety Goal: Patient will be injury free during hospitalization Description: INTERVENTIONS: 1. Assess patient's risk for falls and implement fall prevention plan of care per policy 2. Provide and maintain a safe environment 3. Proper use of double Identifiers 4. Medication administration using the 5 rights 5. Hand hygiene 6. Specimens are labeled at the bedside 7. Instruct patient/ patient rental representative about use of safety devices 8. Include patient/ patient rental representative in decisions related to safety Outcome: Progressing Note: Evaluation of progress towards goal: call light within reach and bed in lowest position Query Response Note AUTOMATED QUERY TEXT: Type of Depression: Please provide further specificity, if known. Clinical indicators include: sleep disturbance, depression Options provided: -- Anxiety depression -- Major depression -- Bipolar disorder -- Situational depression -- Other - I will add my own diagnosis -- Dismiss - Not applicable / Not valid AUTOMATED QUERY RESPONSE TEXT: The patient has major depression. Electronically signed by: Stephanie FRANCISCO 07/27/2024 6:57 AM Problem: Pain Goal: Patient goal is pain score less than 4, able to rest, and participant in treatment plan as appropriate Description: INTERVENTIONS: 1. Encourage patient or legal rental representative to report early pain and ask for pain medicine when needed 2. Assess pain using appropriate pain scale and include the scale used when documenting 3. Administer analgesics based on type and severity of pain and evaluate response within appropriate time frame 4. Implement non-pharmacological measures as appropriate and evaluate response 5. Consider cultural and social influences on pain and pain management 6. Notify LIP if interventions ineffective or patient reports new pain 7. Monitor vital signs including pulse ox, end-tidal CO2 based on pain intervention 8. Reassess pain per policy 9. Teach patient or legal rental representative interventions for comforting Outcome: Progressing Note: Evaluation of progress towards goal: Patient denies pain at this time and is sleeping comfortably in bed. DISCHARGE PLANNING NOTE Chart reviewed and case discussed in daily transition rounds this AM. Pt currently holds a 11.4% readmission risk.Per RN, NG tube out and pt tolerating clear liq diet. Ant possible d/c tomorrow. No needs anticipated. CN will continue to follow and is available should any further needs arise. Problem: Infection Goal: Absence of infection during hospitalization Description: Interventions: 1. Assess and monitor for signs and symptoms of infection 2. Monitor lab/diagnostic results 3. Monitor all insertion sites i.e., indwelling lines, tubes and drains 4. Monitor endotracheal (as able) and nasal secretions for changes in amount and color 5. Administer medications as ordered 6. Instruct and encourage patient and family to use good hand hygiene technique 7. Identify and instruct patient/patient rental representative in use of appropriate isolation precautions for identified infection/symptoms 8. Provide and discuss with patient/patient rental representative on educational MDRO sheet 9. Encourage and monitor nutritional status daily and consult model maker scale if indicated 10. Implement neutropenic guidelines as needed 11. Review exposure to history of communicable disease and recent travel history on admission 12. Encourage annual influenza vaccine 13. Encourage pneumonia vaccine Outcome: Progressing Note: Evaluation of progress towards goal: vital signs and labs are monitored each shift Problem: Pain Goal: Patient goal is pain score less than 4, able to rest, and participant in treatment plan as appropriate Description: INTERVENTIONS: 1. Encourage patient or legal rental representative to report early pain and ask for pain medicine when needed 2. Assess pain using appropriate pain scale and include the scale used when documenting 3. Administer analgesics based on type and severity of pain and evaluate response within appropriate time frame 4. Implement non-pharmacological measures as appropriate and evaluate response 5. Consider cultural and social influences on pain and pain management 6. Notify LIP if interventions ineffective or patient reports new pain 7. Monitor vital signs including pulse ox, end-tidal CO2 based on pain intervention 8. Reassess pain per policy 9. Teach patient or legal rental representative interventions for comforting Outcome: Progressing Note: Evaluation of progress towards goal: Patient denies pain at this time. Problem: Safety Goal: Patient will be injury free during hospitalization Description: INTERVENTIONS: 1. Assess patient's risk for falls and implement fall prevention plan of care per policy 2. Provide and maintain a safe environment 3. Proper use of double Identifiers 4. Medication administration using the 5 rights 5. Hand hygiene 6. Specimens are labeled at the bedside 7. Instruct patient/ patient rental representative about use of safety devices 8. Include patient/ patient rental representative in decisions related to safety Outcome: Progressing Note: Evaluation of progress towards goal: Patient is independent and up with a steady gait. Problem: Discharge Planning Goal: Discharge to post-acute care, other facility, or home with appropriate resources Description: Patient's goal is: INTERVENTIONS 1. Conduct assessment to determine patient/family and health care team treatment goals, and need for post-acute services based on payer coverage, community resources, and patient preferences, and barriers to discharge 2. Coordinate with Social work, Care Navigation, and Utilization Review to arrange appropriate level of services according to patient's needs based on patient preference and payer coverage in collaboration with the physician and health care team 3. Address psychosocial, clinical, and financial barriers to discharge as identified in assessment in conjunction with the patient/family and health care team 4. Consult appropriate ancillary services (i.e.. PT/OT/ST, etc) as needed 5. Communicate with and update the patient/family, physician, and health care team regarding progress on the discharge plan 6. Identify discharge learning needs (meds, wound care, etc). 7. Arrange for needed discharge transportation as appropriate Outcome: Progressing Note: Evaluation of progress towards goal: Plan is for patient to go home with her . Problem: Discharge Planning Goal: Discharge to post-acute care, other facility, or home with appropriate resources Description: Patient's goal is: INTERVENTIONS 1. Conduct assessment to determine patient/family and health care team treatment goals, and need for post-acute services based on payer coverage, community resources, and patient preferences, and barriers to discharge 2. Coordinate with Social work, Care Navigation, and Utilization Review to arrange appropriate level of services according to patient's needs based on patient preference and payer coverage in collaboration with the physician and health care team 3. Address psychosocial, clinical, and financial barriers to discharge as identified in assessment in conjunction with the patient/family and health care team 4. Consult appropriate ancillary services (i.e.. PT/OT/ST, etc) as needed 5. Communicate with and update the patient/family, physician, and health care team regarding progress on the discharge plan 6. Identify discharge learning needs (meds, wound care, etc). 7. Arrange for needed discharge transportation as appropriate Outcome: Progressing Note: Evaluation of progress towards goal: pt will be d/c to SNF Problem: Pain Goal: Patient goal is pain score less than 4, able to rest, and participant in treatment plan as appropriate Description: INTERVENTIONS: 1. Encourage patient or legal rental representative to report early pain and ask for pain medicine when needed 2. Assess pain using appropriate pain scale and include the scale used when documenting 3. Administer analgesics based on type and severity of pain and evaluate response within appropriate time frame 4. Implement non-pharmacological measures as appropriate and evaluate response 5. Consider cultural and social influences on pain and pain management 6. Notify LIP if interventions ineffective or patient reports new pain 7. Monitor vital signs including pulse ox, end-tidal CO2 based on pain intervention 8. Reassess pain per policy 9. Teach patient or legal rental representative interventions for comforting Outcome: Progressing Note: Evaluation of progress towards goal: Patient denies pain at this time and NG hooked up to LIWS. Problem: Pain Goal: Patient goal is pain score less than 4, able to rest, and participant in treatment plan as appropriate Description: INTERVENTIONS: 1. Encourage patient or legal rental representative to report early pain and ask for pain medicine when needed 2. Assess pain using appropriate pain scale and include the scale used when documenting 3. Administer analgesics based on type and severity of pain and evaluate response within appropriate time frame 4. Implement non-pharmacological measures as appropriate and evaluate response 5. Consider cultural and social influences on pain and pain management 6. Notify LIP if interventions ineffective or patient reports new pain 7. Monitor vital signs including pulse ox, end-tidal CO2 based on pain intervention 8. Reassess pain per policy 9. Teach patient or legal rental representative interventions for comforting Outcome: Progressing Note: Evaluation of progress towards goal: Pain well managed with [facility]audid[facility]tist to [facility]. Problem: Safety Goal: Patient will be injury free during hospitalization Description: INTERVENTIONS: 1. Assess patient's risk for falls and implement fall prevention plan of care per policy 2. Provide and maintain a safe environment 3. Proper use of double Identifiers 4. Medication administration using the 5 rights 5. Hand hygiene 6. Specimens are labeled at the bedside 7. Instruct patient/ patient rental representative about use of safety devices 8. Include patient/ patient rental representative in decisions related to safety Outcome: Progressing Note: Evaluation of progress towards goal: No falls or injuries this shift. Problem: Infection Goal: Absence of infection during hospitalization Description: Interventions: 1. Assess and monitor for signs and symptoms of infection 2. Monitor lab/diagnostic results 3. Monitor all insertion sites i.e., indwelling lines, tubes and drains 4. Monitor endotracheal (as able) and nasal secretions for changes in amount and color 5. Administer medications as ordered 6. Instruct and encourage patient and family to use good hand hygiene technique 7. Identify and instruct patient/patient rental representative in use of appropriate isolation precautions for identified infection/symptoms 8. Provide and discuss with patient/patient rental representative on educational MDRO sheet 9. Encourage and monitor nutritional status daily and consult model maker scale if indicated 10. Implement neutropenic guidelines as needed 11. Review exposure to history of communicable disease and recent travel history on admission 12. Encourage annual influenza vaccine 13. Encourage pneumonia vaccine Outcome: Progressing Note: Evaluation of progress towards goal: WBC count elevated on admission. Afebrile this shift. Will continue to monitor. Problem: Knowledge Deficit Goal: Patient/patient rental representative demonstrates understanding of disease process, treatment plan, medications, and discharge instructions Description: INTERVENTIONS 1. Complete learning assessment and assess knowledge base 2. Provide teaching at level of understanding 3. Provide teaching via preferred learning method(s) Outcome: Progressing Note: Evaluation of progress towards goal: Plan for treatment continues to be in question. NGT continues. Problem: Discharge Planning Goal: Discharge to post-acute care, other facility, or home with appropriate resources Description: Patient's goal is: INTERVENTIONS 1. Conduct assessment to determine patient/family and health care team treatment goals, and need for post-acute services based on payer coverage, community resources, and patient preferences, and barriers to discharge 2. Coordinate with Social work, Care Navigation, and Utilization Review to arrange appropriate level of services according to patient's needs based on patient preference and payer coverage in collaboration with the physician and health care team 3. Address psychosocial, clinical, and financial barriers to discharge as identified in assessment in conjunction with the patient/family and health care team 4. Consult appropriate ancillary services (i.e.. PT/OT/ST, etc) as needed 5. Communicate with and update the patient/family, physician, and health care team regarding progress on the discharge plan 6. Identify discharge learning needs (meds, wound care, etc). 7. Arrange for needed discharge transportation as appropriate Outcome: Progressing Note: Evaluation of progress towards goal: Plan to return home at discharge with spouse. Physical Therapy PT Type of Visit: (Per RN, pt is independent with mobility & has no PT needs. Will discontinue PT order at this time.) Occupational Therapy OT Type of Visit: Discharge from Therapy (Per RN report, pt is indep with ADLs and functional mobility. No acute OT needs identified. Will discontinue OT order at this time.) DISCHARGE PLANNING NOTE Heddler met with patient, introduced self, and explained role. Patient educated on safe discharge plan. Pt admitted 07/24/2024 with Small bowel obstruction (CMS-HCC) [K56.609] Small bowel obstruction (CMS-HCC) [K56.609] per chart review. Pt is listed in [facility] as a 5% risk for re-admission. Pt reports that he is from the [facility]. Confirms that he does have health insurance. Consults: Surgery Discharge Barriers per Daily Transition Rounds and chart review: pt currently has NG, surgery consulted, pain and nausea control. Past Medical History: Diagnosis Date Former cigarette smoker 2012 quit 12 years ago Prior to admission patient was living with spouse/significant other and self care. Medical equipment patient used prior to admission includes: None. Patient denies need for transportation/ food/ prescription medication assistance resources. PCP: No primary care provider on file. [facility]acy: [facility] and pharmacy confirmed with patient. CN offered to assist with follow up appointment arrangements; patient declines. No primary care provider on file. added to Follow Up Providers for Summary of Care communication. Current discharge plan is: Pt to discharge home with self-care. Services Requested: Services Requested Patient expects to be discharged to:: Home Discharge Disposition: Home with self care Does the patient need discharge transportation arranged?: No Mobility issues discussed with transportation provider: No Financial Disclosure Provided for In-Network Referral: No Initial DC Assessment Completed: Yes DC Planning Complete Discharge Milestones: Yes Goals: Goals None Will continue to follow as plan of care develops. CN discussed benefits and importance of medication compliance and follow ups. Please feel free to reach out for any discharge planning questions. - Alaina Slaughter LCSW 07/24/24 9:19 AM Problem: Pain Goal: Patient goal is pain score less than 4, able to rest, and participant in treatment plan as appropriate Description: INTERVENTIONS: 1. Encourage patient or legal rental representative to report early pain and ask for pain medicine when needed 2. Assess pain using appropriate pain scale and include the scale used when documenting 3. Administer analgesics based on type and severity of pain and evaluate response within appropriate time frame 4. Implement non-pharmacological measures as appropriate and evaluate response 5. Consider cultural and social influences on pain and pain management 6. Notify LIP if interventions ineffective or patient reports new pain 7. Monitor vital signs including pulse ox, end-tidal CO2 based on pain intervention 8. Reassess pain per policy 9. Teach patient or legal rental representative interventions for comforting Outcome: Progressing Note: Evaluation of progress towards goal: Patient rates pain a 10/10. 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 Assess patient's risk for falls and implement fall prevention plan of care per policy 2. Provide and maintain a safe environment 3. Proper use of double Identifiers 4. Medication administration using the 5 rights 5. Hand hygiene 6. Specimens are labeled at the bedside 7. Instruct patient/ patient rental representative about use of safety devices 8. Include patient/ patient rental representative in decisions related to safety Outcome: Progressing Note: Evaluation of progress towards goal: Patient is independent, bed in low position, bed locked, call light within reach and patient educated on importance of calling for help to prevent falls Problem: Infection Goal: Absence of infection during hospitalization Description: Interventions: 1. Assess and monitor for signs and symptoms of infection 2. Monitor lab/diagnostic results 3. Monitor all insertion sites i.e., indwelling lines, tubes and drains 4. Monitor endotracheal (as able) and nasal secretions for changes in amount and color 5. Administer medications as ordered 6. Instruct and encourage patient and family to use good hand hygiene technique 7. Identify and instruct patient/patient rental representative in use of appropriate isolation precautions for identified infection/symptoms 8. Provide and discuss with patient/patient rental representative on educational MDRO sheet 9. Encourage and monitor nutritional status daily and consult model maker scale if indicated 10. Implement neutropenic guidelines as needed 11. Review exposure to history of communicable disease and recent travel history on admission 12. Encourage annual influenza vaccine 13. Encourage pneumonia vaccine Outcome: Progressing Note: Evaluation of progress towards goal: No signs or symptoms of infection at this time Problem: Discharge Planning Goal: Discharge to post-acute care, other facility, or home with appropriate resources Description: Patient's goal is: INTERVENTIONS 1. Conduct assessment to determine patient/family and health care team treatment goals, and need for post-acute services based on payer coverage, community resources, and patient preferences, and barriers to discharge 2. Coordinate with Social work, Care Navigation, and Utilization Review to arrange appropriate level of services according to patient's needs based on patient preference and payer coverage in collaboration with the physician and health care team 3. Address psychosocial, clinical, and financial barriers to discharge as identified in assessment in conjunction with the patient/family and health care team 4. Consult appropriate ancillary services (i.e.. PT/OT/ST, etc) as needed 5. Communicate with and update the patient/family, physician, and health care team regarding progress on the discharge plan 6. Identify discharge learning needs (meds, wound care, etc). 7. Arrange for needed discharge transportation as appropriate Outcome: Progressing Note: Evaluation of progress towards goal: Patient plans on being discharged home with his Problem: Low Risk Fall Score Description: Pacheco Fall Score of 0 - 24 or indicated by [facility] Assessment Goal: Patient should be free from fall Description: Interventions: 1. [place] to environment 2. Hourly rounds addressing the 4 P's (Pain, Positioning, Possessions, Potty) 3. Clear area of hazards (spills, clutter, electrical cords, unnecessary equipment) 4. Place equipment (bed & TV controls, call light, phone, urinal) within reach 5. Encourage patient to wear glasses and hearing aides as appropriate 6. Maintain bed in lowest position 7. Lock wheels on bed/wheelchair 8. Provide adequate lighting, including night light 9. Assess need for additional bedding, food/fluids, pain med's prior to sleep/routinely 10. Provide gripper slippers or personal non-skid footwear 11. Teach patient and patient rental representative to maintain environment for safety and engage in all aspects of fall prevention program Outcome: Progressing Note: Evaluation of progress towards goal: Patient is independent from home, steady gait with good balance. Low risk for falls, but still educated on importance of calling out for help to prevent falls. documented in this encounter [facility] 07-28-2024 Progress note Formatting of t his note might be different from the original. DISCHARGE PLANNING NOTE Sw reviewed pts chart and discharge is written. No needs for discharge. - SEMAJ Moss 07/28/24 2:23 PM [facility] 07-28-2024 Hospital course Narrative Images from the original note were not included. [facility] - 6 CARD TELE/INTERMEDIATE [address] [place] [address] Hospital Medicine Discharge Summary Patient: Johnathan Correa Date of : 1960 Room: 607/ Encounter date: 07/28/24 DATE OF ADMISSION: 07/24/2024 DATE OF DISCHARGE:07/28/2024 DISCHARGE DIAGNOSES Principal Problem: Small bowel obstruction (CMS-HCC) Active Problems: JAM (obstructive sleep apnea) Hypertension DM2 (diabetes mellitus, type 2) ([facility]) CAD (coronary artery disease) [facility] General Surgery PCP: No primary care provider on file. PROCEDURES None HOSPITAL COURSE SUMMARY Johnathan Stewart is a 63 y.o. male who presents with abdominal pain and nausea that started at 3:00 PM this afternoon. He reported a normal bowel movement the day prior and denied any history of abdominal surgery. He was seen at [place] ED, and work up was completed with labs overall unremarkable but creatinine 1.[address] abd/pelvis showed prominent gas and fluid filled distended small bowel loops appear to show gradual tapering to normal caliber distally, with no transition point identified, favoring severe small bowel ileus over partial distal small bowel obstruction. ED attending spoke with Dr. Ferrara regarding the patient who recommended patient be admitted to [facility] to see the surgery team here. An NG tube was placed after discussion with general surgery prior to transfer. On arrival to [facility], he is having 10/10 abdominal pain and nausea. Small Bowel Obstruction General Surgery consulted. No history of abdominal surgeries. Was taking Mounjaro. Afebrile. WBC peaked at 17.5, down to 9.2 at discharge. Reactive. NGT pulled 07/26. Diet advanced - tolerated. No N/V. Having BMs. Diabetes mellitus, type 2 ACHS checks + Sliding Scale Insulin while inpatient. PO antidiabetics resumed at discharge. Hold Mounjaro given admission for SBO. HgbA1C to be checked outpatient and need for additional diabetic therapy in place of Mounjaro to be determined by PCP. Hypertension / HLD / CAD - remote history of stents Carvedilol, lisinopril, amlodipine Obstructive sleep apnea Noncompliant with CPAP GERD Protonix Depression Celexa Discharge Day Progress Note 07/28/24 Patient was seen and examined at bedside today. No events reported overnight. Hemodynamically stable. Review of Systems Constitutional: Positive for appetite change (good appetite). Negative for activity change, chills, diaphoresis, fatigue and fever. Respiratory: Negative for cough, chest tightness, shortness of breath and wheezing. Cardiovascular: Negative for chest pain and palpitations. Gastrointestinal: Positive for diarrhea (loose BMs). Negative for abdominal distention, abdominal pain, constipation, nausea and vomiting. Passing gas, small loose BM Genitourinary: Negative for difficulty urinating. Musculoskeletal: Negative for arthralgias, gait problem and myalgias. Skin: Negative for color change, pallor, rash and wound. Neurological: Negative for dizziness, weakness, light-headedness and headaches. Psychiatric/Behavioral: Negative for dysphoric mood and sleep disturbance. The patient is not nervous/anxious. BP 141/74 Pulse 76 Temp 36.5 C (97.7 F) (Temporal) Resp 18 Ht 170.2 cm (5' 7 ) Wt (!) 144.1 kg (317 lb 9.6 oz) SpO2 94% BMI 49.74 kg/m Temp: [36.2 C (97.1 F)-36.7 C (98 F)] 36.5 C (97.7 F) Pulse: [75-81] 76 Resp: [14-21] 18 BP: (122-178)/(74-89) 141/74 SpO2: [94 %-96 %] 94 % O2 Device: None (Room air) No intake or output data in the 24 hours ending 07/28/24 1606 Physical Exam Vitals reviewed. Constitutional: General: He is not in acute distress. Appearance: He is morbidly obese. HENT: Head: Normocephalic and atraumatic. Mouth/Throat: Mouth: Mucous membranes are moist. Eyes: General: No scleral icterus. Extraocular Movements: Extraocular movements intact. Conjunctiva/sclera: Conjunctivae normal. Pupils: Pupils are equal, round, and reactive to light. Cardiovascular: Rate and Rhythm: Normal rate and regular rhythm. Pulses: Normal pulses. Pulmonary: Effort: Pulmonary effort is normal. No respiratory distress. Breath sounds: Normal breath sounds. Abdominal: General: Abdomen is protuberant. Bowel sounds are normal. There is no distension. Tenderness: There is no abdominal tenderness. There is no guarding or rebound. Musculoskeletal: General: No signs of injury. Cervical back: Normal range of motion and neck supple. No tenderness. Right lower leg: Edema present. Left lower leg: Edema present. Skin: General: Skin is warm and dry. Capillary Refill: Capillary refill takes less than 2 seconds. Coloration: Skin is not jaundiced. Neurological: General: No focal deficit present. Mental Status: He is alert and oriented to person, place, and time. Cranial Nerves: No cranial nerve deficit. Psychiatric: Mood and Affect: Mood normal. Behavior: Behavior normal. Thought Content: Thought content normal. Code Status: Full Code Labs Recent Results (from the past 48 hours) Urinalysis Collection Time: 07/26/24 4:10 PM Result Value Ref Range Color YELLOW YELLOW^YELLOW Turbidity CLEAR CLEAR^CLEAR Specific gravity 1.025 1.003 - 1.035 Nitrite Negative Negative^Negative Ph urine 6.5 5.0 - 8.5 Leukocyte esterase Negative Negative^Negative Protein Trace (A) Negative^Negative mg/dL Glucose, Ur 100 (A) Negative^Negative mg/dL Ketones urine Negative Negative^Negative mg/dL Urobilinogen 4.0 (H) <1.1 eu/dL Bilirubin, urine SMALL (A) Negative^Negative Hemoglobin Negative Negative^Negative WBC 2 0 - 5 /hpf RBC 2 0 - 5 /hpf Bedside Glucose *Place/Obtain serum glucose if >500(>600 MRH) per glucometer. Collection Time: 07/26/24 5:32 PM Result Value Ref Range Bedside glucose 143 (H) 65 - 99 mg/dL Lactate w/ Reflex Collection Time: 07/26/24 7:08 PM Result Value Ref Range Lactate w/ Reflex 1.4 0.4 - 2.0 mmol/L Bedside Glucose *Place/Obtain serum glucose if >500(>600 MRH) per glucometer. Collection Time: 07/26/24 8:53 PM Result Value Ref Range Bedside glucose 143 (H) 65 - 99 mg/dL Bedside Glucose *Place/Obtain serum glucose if >500(>600 MRH) per glucometer. Collection Time: 07/27/24 8:12 AM Result Value Ref Range Bedside glucose 130 (H) 65 - 99 mg/dL Bedside Glucose *Place/Obtain serum glucose if >500(>600 MRH) per glucometer. Collection Time: 07/27/24 1:03 PM Result Value Ref Range Bedside glucose 190 (H) 65 - 99 mg/dL Comprehensive metabolic panel Collection Time: 07/27/24 6:59 PM Result Value Ref Range Sodium 137 134 - 146 mmol/L Potassium, Bld 3.9 3.5 - 5.0 mmol/L Chloride 99 98 - 109 mmol/L CO2 30 22 - 32 mmol/L Anion gap 8 5 - 15 mmol/L BUN 11 5 - 27 mg/dL Creatinine 0.91 0.60 - 1.30 mg/dL Glucose 136 (H) 65 - 99 mg/dL Calcium 8.6 8.5 - 10.5 mg/dL Total Protein 6.7 6.0 - 8.0 g/dL Albumin 3.6 3.2 - 5.3 g/dL Alkaline Phosphatase 66 39 - 130 U/L AST 22 0 - 41 U/L ALT 15 0 - 40 U/L Total bilirubin 1.3 (H) 0.3 - 1.2 mg/dL eGFR (CKD-EPI)non-race dependent >90 >59 ml/min/1.73sq.m Magnesium Collection Time: 07/27/24 6:59 PM Result Value Ref Range Magnesium 1.7 (L) 1.8 - 2.6 mg/dL CBC auto differential Collection Time: 07/27/24 6:59 PM Result Value Ref Range White Blood Cells 9.9 4.0 - 11.0 X10E9/L RBC count 5.83 (H) 4.10 - 5.70 X10E12/L Hemoglobin 15.6 13.0 - 17.0 g/dL Hematocrit 45.6 39 - 49 % MCV 78 (L) 80 - 100 fL MCH 26.8 (L) 27 - 34 pg MCHC 34.3 32 - 36 g/dL RDW 16.4 (H) 11.5 - 15.0 % Platelets 162 150 - 450 X10E9/L MPV 8.7 7 - 12 fL % neutrophils 79.6 % % lymphocytes 10.8 % % monocytes 6.5 % % eosinophils 2.5 % % Basophils 0.6 % Neutrophils Absolute (A) 7.9 (H) 1.5 - 6.6 X10E9/L Lymphocytes Absolute 1.1 1.0 - 3.5 X10E9/L Monocytes Absolute 0.6 0 - 0.9 X10E9/L Eosinophils Absolute 0.2 0.0 - 0.4 X10E9/L Basophils Absolute 0.1 0.0 - 0.2 X10E9/L Vitamin B12 Collection Time: 07/27/24 6:59 PM Result Value Ref Range Vitamin B-12 268 180 - 914 pg/mL Iron and TIBC Collection Time: 07/27/24 6:59 PM Result Value Ref Range Iron 34 (L) 50 - 212 ug/dL Tibc-calc only do not order 283 250 - 425 ug/dL Iron Saturation 12 (L) 20 - 50 % SATURATION Ferritin Collection Time: 07/27/24 6:59 PM Result Value Ref Range Ferritin 96 24 - 336 ng/mL Folate Collection Time: 07/27/24 6:59 PM Result Value Ref Range Folate 8.4 >5.8 ng/mL Bedside Glucose *Place/Obtain serum glucose if >500(>600 MRH) per glucometer. Collection Time: 07/27/24 9:27 PM Result Value Ref Range Bedside glucose 203 (H) 65 - 99 mg/dL Comprehensive metabolic panel Collection Time: 07/28/24 5:04 AM Result Value Ref Range Sodium 135 134 - 146 mmol/L Potassium, Bld 3.4 (L) 3.5 - 5.0 mmol/L Chloride 101 98 - 109 mmol/L CO2 26 22 - 32 mmol/L Anion gap 8 5 - 15 mmol/L BUN 10 5 - 27 mg/dL Creatinine 0.82 0.60 - 1.30 mg/dL Glucose 132 (H) 65 - 99 mg/dL Calcium 8.2 (L) 8.5 - 10.5 mg/dL Total Protein 5.9 (L) 6.0 - 8.0 g/dL Albumin 3.3 3.2 - 5.3 g/dL Alkaline Phosphatase 64 39 - 130 U/L AST 21 0 - 41 U/L ALT 15 0 - 40 U/L Total bilirubin 1.1 0.3 - 1.2 mg/dL eGFR (CKD-EPI)non-race dependent >90 >59 ml/min/1.73sq.m Magnesium Collection Time: 07/28/24 5:04 AM Result Value Ref Range Magnesium 2.0 1.8 - 2.6 mg/dL CBC auto differential Collection Time: 07/28/24 5:04 AM Result Value Ref Range White Blood Cells 9.2 4.0 - 11.0 X10E9/L RBC count 5.61 4.10 - 5.70 X10E12/L Hemoglobin 15.0 13.0 - 17.0 g/dL Hematocrit 43.7 39 - 49 % MCV 78 (L) 80 - 100 fL MCH 26.7 (L) 27 - 34 pg MCHC 34.3 32 - 36 g/dL RDW 16.2 (H) 11.5 - 15.0 % Platelets 161 150 - 450 X10E9/L MPV 9.0 7 - 12 fL % neutrophils 75.3 % % lymphocytes 14.2 % % monocytes 6.6 % % eosinophils 3.4 % % Basophils 0.5 % Neutrophils Absolute (A) 7.0 (H) 1.5 - 6.6 X10E9/L Lymphocytes Absolute 1.3 1.0 - 3.5 X10E9/L Monocytes Absolute 0.6 0 - 0.9 X10E9/L Eosinophils Absolute 0.3 0.0 - 0.4 X10E9/L Basophils Absolute 0.0 0.0 - 0.2 X10E9/L Magnesium Collection Time: 07/28/24 8:44 AM Result Value Ref Range Magnesium 1.9 1.8 - 2.6 mg/dL Bedside Glucose *Place/Obtain serum glucose if >500(>600 MRH) per glucometer. Collection Time: 07/28/24 11:24 AM Result Value Ref Range Bedside glucose 231 (H) 65 - 99 mg/dL Radiology X-ray abdomen ap 1 view Result Date: 07/25/2024 Narrative: EXAM: XR ABDOMEN AP 1 VW CLINICAL INFORMATION: follow up small bowel distension. COMPARISON: 07/24/2024 FINDINGS: There remains air-filled dilated small bowel loops, though improved since 07/24/2024. There is no evidence of pneumatosis or free air. The tip of the gastric tube is in the stomach. IMPRESSION: 1. Persistent air-filled dilated small bowel loops, though improved since 07/24/2024. There is no evidence of pneumatosis or free air. 2. The tip of the gastric tube is in the stomach. Finalized by Segundo Fontanez MD on 07/25/2024 3:27 PM X-ray abdomen ap 1 view Result Date: 07/24/2024 Narrative: Abdomen single view Clinical history:SBO abdominal pain bowel obstruction Comparison: None. Findings: AP supine view of the abdomen. Gas-filled dilated bowel loops are seen suggestive of evolving small bowel obstruction. Enteric catheter tip in the region of the gastric fundus. Residual contrast in the urinary bladder. Impression: Gas-filled dilated small bowel loops concerning for evolving small bowel obstruction. Finalized by Mayito Gonzalez MD on 07/24/2024 2:21 PM DISCHARGE INSTRUCTION Discharge disposition: Home Condition:Stable Activity: activity as tolerated Diet: Adult diet Regular Texture Adult diet Follow up: PCP within 7-14 days. Discharge Medications: Medication List CONTINUE taking these medications Instructions Last Dose Given Next Dose Due amLODIPine 5 mg tablet Commonly known as: NORVASC Notes to patient: Blood pressure Take 1 tablet (5 mg total) by mouth in the morning. atorvastatin 20 mg tablet Commonly known as: LIPITOR Notes to patient: cholesterol Take 1 tablet (20 mg total) by mouth in the morning. carvediloL 12.5 mg tablet Commonly known as: COREG Notes to patient: Blood pressure and HR Take 1 tablet (12.5 mg total) by mouth in the morning and 1 tablet (12.5 mg total) in the evening. Take with meals. citalopram 40 mg tablet Commonly known as: CeleXA Notes to patient: anxiety Take 1 tablet (40 mg total) by mouth in the morning. glipiZIDE 10 mg 24 hr tablet Commonly known as: GLUCOTROL XL Notes to patient: Blood sugar Take 1 tablet (10 mg total) by mouth in the morning. hyoscyamine 0.375 mg 12 hr tablet Commonly known as: LEVBID Notes to patient: IBS Take 1 tablet (0.375 mg total) by mouth in the morning and at bedtime. lisinopriL 5 mg tablet Commonly known as: PRINIVIL,ZESTRIL Notes to patient: Blood pressure Take 1 tablet (5 mg total) by mouth in the morning. omeprazole 40 mg capsule Commonly known as: PriLOSEC Notes to patient: gerd Take 1 capsule (40 mg total) by mouth in the morning. pioglitazone 30 mg tablet Commonly known as: ACTOS Notes to patient: diabetes Take 1 tablet (30 mg total) by mouth in the morning. STOP taking these medications MOUNJARO 5 mg/0.5 mL pen injector Generic drug: tirzepatide >30 minutes were spent on discharging this patient. Stephanie Mayfield, DARCY-MICHAELLE, 07/28/2024 4:06 PM [facility] 7AM-7PM (all facilities): Miguelito or sean through [facility]. 7PM-7AM ([facility], [facility]): Miguelito or sean, [phone]. 7PM-7AM ([place], [place], [place], [place] and [facility]): EpicChat or page through [employer]. NOLAN Araiza 07/28/24 1606 Patient seen and examined Interviewed and any questions answered All labs , xrays reviewed Clinical assessment and decisions made by myself in entirety Discussed case with team Agree with above assessment and plan Electronically signed by: VAIBHAV SLATER MD, 07/28/2024 4:12 PM [facility] [address] [facility] [place] [address] (P): [phone] (F): [phone] documented in this encounter [employer] 07-28-2024 History of Present illness Narrative [facility] General Surgery Daily Progress Note Patient Name: Johnathan Correa Admit Date: 07/24/2024 Length of Stay: 4 Days Admitting Physician: Adrienne Rodriguez MD Subjective: The patient met resting in the chair this morning. No acute overnight events. Patient reports his abdominal pain and distention has continued to improved since yesterday. He tolerates a regular diet without difficulty or issues. He denies nausea, vomiting, fever, and chills. He continues to pass flatus and have regular bowel movements. Objective: Vitals: 07/28/24 0346 BP: 153/81 Pulse: 75 Resp: 14 Temp: 36.2 C (97.1 F) SpO2: 94% Temp: [36.2 C (97.1 F)-36.5 C (97.7 F)] 36.2 C (97.1 F) Pulse: [75-81] 75 Resp: [14-21] 14 BP: (152-178)/(81-89) 153/81 SpO2: [94 %-100 %] 94 % O2 Device: None (Room air) Allergies Allergen Reactions Metformin Anaphylaxis Intake/Output last 3 shifts: No intake/output data recorded. Intake/Output this shift: No intake/output data recorded. Dietary Orders (From admission, onward) Start Ordered 07/27/24 0756 Adult diet Regular Texture Diet effective now Question: Diet Type: Answer: Regular Texture 07/27/24 0755 Physical Exam General: Awake, alert, in no acute distress HENT: Head atraumatic, normocephalic Pulmonary: Regular, non-labored respirations, without use of accessory muscles Cardiovascular: Regular rate and rhythm Abdomen: Soft, non-tender, less distended, tympanic to percussion improved Neurological: Motor and sensation grossly intact Skin: Warm, dry, without jaundice Laboratory Data: Lab Results Component Value Date WBC 9.2 07/28/2024 HGB 15.0 07/28/2024 HCT 43.7 07/28/2024 MCV 78 (L) 07/28/2024 PLT 161 07/28/2024 Lab Results Component Value Date GLU 132 (H) 07/28/2024 CALCIUM 8.2 (L) 07/28/2024 K 3.4 (L) 07/28/2024 CO2 26 07/28/2024 CL 101 07/28/2024 BUN 10 07/28/2024 CREATININE 0.82 07/28/2024 No results found for: AMYLASE Lab Results Component Value Date LIPASE 10 (L) 07/24/2024 Lab Results Component Value Date ALT 15 07/28/2024 AST 21 07/28/2024 ALKPHOS 64 07/28/2024 No results found for: INR , PROTIME amLODIPine, 5 mg, oral, Daily atorvastatin, 20 mg, oral, Daily carvediloL, 12.5 mg, oral, BID with meals citalopram, 40 mg, oral, Daily insulin lispro, 2-10 Units, subcutaneous, With meals and nightly lisinopriL, 5 mg, oral, Daily pantoprazole, 40 mg, oral, QAM AC sodium chloride, 3 mL, intravenous, Q12H DONALD acetaminophen dextrose dextrose 5 % in water dextrose 50 % in water (D50W) glucagon (human recombinant) magnesium sulfate magnesium sulfate potassium chloride OR potassium chloride OR potassium chloride IV (Adult) prochlorperazine sodium chloride Imaging: X-ray abdomen ap 1 view EXAM: XR ABDOMEN AP 1 VW CLINICAL INFORMATION: follow up small bowel distension. COMPARISON: 07/24/2024 FINDINGS: There remains air-filled dilated small bowel loops, though improved since 07/24/2024. There is no evidence of pneumatosis or free air. The tip of the gastric tube is in the stomach. IMPRESSION: 1. Persistent air-filled dilated small bowel loops, though improved since 07/24/2024. There is no evidence of pneumatosis or free air. 2. The tip of the gastric tube is in the stomach. Finalized by Segundo Fontanez MD on 07/25/2024 3:27 PM Assessment: Johnathan Correa is a 63 y.o. male admitted due to abdominal pain with concerns for ileus vs SBO. He continues to have improving distention, tympany, and pain. He continues to have bowel function. Plan: Regular diet; potential discharge this afternoon Fluid and electrolyte replacement PRN Pain and nausea control PRN Rest of care per primary Analisa Ward DO General Surgery, PGY-1 07/28/24 8:45 AM 6a - 6p Pager: [phone] Cosigned by Francois Pate MD at 07/28/2024 4:13 PM EST Associated attestation - Francois Pate MD - 07/28/2024 4:13 PM EST I reviewed the resident's note and discussed the case with the resident. This specific service will not be billed. Images from the original note were not included. [facility] General Surgery Daily Progress Note Patient Name: Johnathan Correa Admit Date: 07/24/2024 Length of Stay: 3 Days Admitting Physician: Adrienne Rodriguez MD Subjective: No acute overnight events. Patient reports his abdominal pain has continued to improved since yesterday. He tolerated full liquid diet well and is eager to move to a regular diet. He denies nausea, vomiting, fever, and chills. He continues to pass flatus and have regular bowel movements. Objective: Vitals: 07/27/24 0358 BP: 147/88 Pulse: 71 Resp: 17 Temp: 36.4 C (97.5 F) SpO2: 96% Temp: [36.3 C (97.3 F)-36.8 C (98.3 F)] 36.4 C (97.5 F) Pulse: [71-82] 71 Resp: [11-22] 17 BP: (132-164)/(64-93) 147/88 SpO2: [95 %-96 %] 96 % O2 Device: None (Room air) Allergies Allergen Reactions Metformin Anaphylaxis Intake/Output last 3 shifts: I/O last 3 completed shifts: In: 1879. [I.V.:1879.] Out: - Intake/Output this shift: No intake/output data recorded. Dietary Orders (From admission, onward) Start Ordered 07/27/24 075 Adult diet Regular Texture Diet effective now Question: Diet Type: Answer: Regular Texture 07/27/24 0755 Physical Exam General: Awake, alert, in no acute distress HENT: Head atraumatic, normocephalic Pulmonary: Regular, non-labored respirations, without use of accessory muscles Cardiovascular: Regular rate and rhythm Abdomen: Soft, non-tender, distended, tympanic to percussion improved Neurological: Motor and sensation grossly intact Skin: Warm, dry, without jaundice Laboratory Data: Lab Results Component Value Date WBC 15.9 (H) 07/26/2024 HGB 15.5 07/26/2024 HCT 46.0 07/26/2024 MCV 78 (L) 07/26/2024 PLT 130 (L) 07/26/2024 Lab Results Component Value Date GLU 130 (H) 07/27/2024 CALCIUM 8.4 (L) 07/26/2024 K 3.9 07/26/2024 CO2 30 07/26/2024 CL 101 07/26/2024 BUN 16 07/26/2024 CREATININE 0.93 07/26/2024 No results found for: AMYLASE Lab Results Component Value Date LIPASE 10 (L) 07/24/2024 Lab Results Component Value Date ALT 11 07/26/2024 AST 17 07/26/2024 ALKPHOS 69 07/26/2024 No results found for: INR , PROTIME amLODIPine, 5 mg, oral, Daily atorvastatin, 20 mg, oral, Daily carvediloL, 12.5 mg, oral, BID with meals citalopram, 40 mg, oral, Daily insulin lispro, 2-10 Units, subcutaneous, With meals and nightly lisinopriL, 5 mg, oral, Daily pantoprazole, 40 mg, intravenous, Q24H DONALD sodium chloride, 3 mL, intravenous, Q12H DONALD acetaminophen dextrose dextrose 5 % in water dextrose 50 % in water (D50W) glucagon (human recombinant) HYDROcodone-acetaminophen magnesium sulfate magnesium sulfate potassium chloride OR potassium chloride OR potassium chloride IV (Adult) prochlorperazine sodium chloride Imaging: X-ray abdomen ap 1 view EXAM: XR ABDOMEN AP 1 VW CLINICAL INFORMATION: follow up small bowel distension. COMPARISON: 07/24/2024 FINDINGS: There remains air-filled dilated small bowel loops, though improved since 07/24/2024. There is no evidence of pneumatosis or free air. The tip of the gastric tube is in the stomach. IMPRESSION: 1. Persistent air-filled dilated small bowel loops, though improved since 07/24/2024. There is no evidence of pneumatosis or free air. 2. The tip of the gastric tube is in the stomach. Finalized by Segundo Fontanez MD on 07/25/2024 3:27 PM Assessment: Johnathan Correa is a 63 y.o. male admitted due to abdominal pain with concerns for ileus vs SBO. He is still distended and tympanic, though improved, and has significantly improved pain. He continues to have bowel function. Plan: Regular diet; potential discharge today or tomorrow depending on how diet goes Fluid and electrolyte replacement PRN Pain and nausea control PRN Rest of care per primary Dinorah Lundy, MS3 Rona Gage MD General Surgery Resident PGY-5 07/27/24 Cosigned by Francois Pate MD at 07/28/2024 9:56 AM EST Associated attestation - Francois Pate MD - 07/28/2024 9:56 AM EST I reviewed the resident's note and discussed the case with the resident. This specific service will not be billed. Images from the original note were not included. [facility] - 6 CARD TELE/INTERMEDIATE [address] [place] [address] Hospital Medicine Progress Note Patient: Johnathan Correa Date of : 1960 Room: [facility]/ PCP: No primary care provider on file. Admission date: 07/24/2024 3:05 AM Encounter date: 07/27/24 Hospital Day: 4 SUBJECTIVE Chief complaints: No chief complaint on file. Interval History: Status: stable. Patient seen and examined at bedside. Diet advanced to GI soft. No nausea or vomiting. Good bowel sounds. Phlebotomy unable to get blood - will recheck in AM. Review of Systems Constitutional: Positive for activity change, appetite change (good appetite) and fatigue. Negative for chills, diaphoresis and fever. Respiratory: Negative for cough, chest tightness, shortness of breath and wheezing. Cardiovascular: Positive for leg swelling. Negative for chest pain and palpitations. Gastrointestinal: Positive for abdominal pain (upper quadrant, mild, improving) and diarrhea (a few small loose BMs). Negative for abdominal distention, constipation, nausea and vomiting. Passing gas, small loose BM Genitourinary: Negative for difficulty urinating. Musculoskeletal: Negative for arthralgias, gait problem and myalgias. Skin: Negative for color change, pallor, rash and wound. Neurological: Negative for dizziness, weakness, light-headedness and headaches. Psychiatric/Behavioral: Negative for dysphoric mood and sleep disturbance. The patient is not nervous/anxious. OBJECTIVE BP 147/88 Pulse 71 Temp 36.4 C (97.5 F) (Temporal) Resp 17 Ht 170.2 cm (5' 7 ) Wt (!) 144.1 kg (317 lb 9.6 oz) SpO2 96% BMI 49.74 kg/m Temp: [36.3 C (97.3 F)-36.8 C (98.3 F)] 36.4 C (97.5 F) Pulse: [71-82] 71 Resp: [11-22] 17 BP: (132-164)/(64-93) 147/88 SpO2: [95 %-96 %] 96 % O2 Device: None (Room air) Intake/Output Summary (Last 24 hours) at 07/27/2024 0821 Last data filed at 07/26/2024 1050 Gross per 24 hour Intake 1880.54 ml Output -- Net 1880.54 ml Physical Exam Vitals reviewed. Constitutional: General: He is not in acute distress. Appearance: He is morbidly obese. HENT: Head: Normocephalic and atraumatic. Mouth/Throat: Mouth: Mucous membranes are moist. Eyes: General: No scleral icterus. Extraocular Movements: Extraocular movements intact. Conjunctiva/sclera: Conjunctivae normal. Pupils: Pupils are equal, round, and reactive to light. Cardiovascular: Rate and Rhythm: Normal rate and regular rhythm. Pulses: Normal pulses. Pulmonary: Effort: Pulmonary effort is normal. No respiratory distress. Breath sounds: Normal breath sounds. Abdominal: General: Abdomen is protuberant. Bowel sounds are normal. There is distension (less than day prior). Tenderness: There is generalized abdominal tenderness (upper quadrant, mild, less than day prior). There is no guarding or rebound. Musculoskeletal: General: No signs of injury. Cervical back: Normal range of motion and neck supple. No tenderness. Right lower leg: Edema present. Left lower leg: Edema present. Skin: General: Skin is warm and dry. Capillary Refill: Capillary refill takes less than 2 seconds. Coloration: Skin is not jaundiced. Neurological: General: No focal deficit present. Mental Status: He is alert and oriented to person, place, and time. Cranial Nerves: No cranial nerve deficit. Psychiatric: Mood and Affect: Mood normal. Behavior: Behavior normal. Thought Content: Thought content normal. Medications Scheduled: amLODIPine, 5 mg, oral, Daily atorvastatin, 20 mg, oral, Daily carvediloL, 12.5 mg, oral, BID with meals citalopram, 40 mg, oral, Daily insulin lispro, 2-10 Units, subcutaneous, With meals and nightly lisinopriL, 5 mg, oral, Daily pantoprazole, 40 mg, intravenous, Q24H DONALD sodium chloride, 3 mL, intravenous, Q12H DONALD Infusions: dextrose 5 % in water, 100 mL/hr As Needed: acetaminophen dextrose dextrose 5 % in water dextrose 50 % in water (D50W) glucagon (human recombinant) HYDROcodone-acetaminophen magnesium sulfate magnesium sulfate potassium chloride OR potassium chloride OR potassium chloride IV (Adult) prochlorperazine sodium chloride Allergies: Metformin Labs Recent Results (from the past 24 hours) Bedside Glucose *Place/Obtain serum glucose if >500(>600 MRH) per glucometer. Collection Time: 07/26/24 12:39 PM Result Value Ref Range Bedside glucose 177 (H) 65 - 99 mg/dL Urinalysis Collection Time: 07/26/24 4:10 PM Result Value Ref Range Color YELLOW YELLOW^YELLOW Turbidity CLEAR CLEAR^CLEAR Specific gravity 1.025 1.003 - 1.035 Nitrite Negative Negative^Negative Ph urine 6.5 5.0 - 8.5 Leukocyte esterase Negative Negative^Negative Protein Trace (A) Negative^Negative mg/dL Glucose, Ur 100 (A) Negative^Negative mg/dL Ketones urine Negative Negative^Negative mg/dL Urobilinogen 4.0 (H) <1.1 eu/dL Bilirubin, urine SMALL (A) Negative^Negative Hemoglobin Negative Negative^Negative WBC 2 0 - 5 /hpf RBC 2 0 - 5 /hpf Bedside Glucose *Place/Obtain serum glucose if >500(>600 MRH) per glucometer. Collection Time: 07/26/24 5:32 PM Result Value Ref Range Bedside glucose 143 (H) 65 - 99 mg/dL Lactate w/ Reflex Collection Time: 07/26/24 7:08 PM Result Value Ref Range Lactate w/ Reflex 1.4 0.4 - 2.0 mmol/L Bedside Glucose *Place/Obtain serum glucose if >500(>600 MRH) per glucometer. Collection Time: 07/26/24 8:53 PM Result Value Ref Range Bedside glucose 143 (H) 65 - 99 mg/dL Radiology X-ray abdomen ap 1 view Result Date: 07/24/2024 Narrative: Abdomen single view Clinical history:SBO abdominal pain bowel obstruction Comparison: None. Findings: AP supine view of the abdomen. Gas-filled dilated bowel loops are seen suggestive of evolving small bowel obstruction. Enteric catheter tip in the region of the gastric fundus. Residual contrast in the urinary bladder. Impression: Gas-filled dilated small bowel loops concerning for evolving small bowel obstruction. Finalized by Mayito Gonzalez MD on 07/24/2024 2:21 PM HOSPITAL PROBLEM LIST Principal Problem: Small bowel obstruction ([facility]) Active Problems: JAM (obstructive sleep apnea) Hypertension DM2 (diabetes mellitus, type 2) ([facility]) CAD (coronary artery disease) ASSESSMENT & PLAN Small Bowel Obstruction General Surgery consulted. Afebrile. WBC 16.3 > 17.5 > 15.9. Unable to get labs today. NGT pulled 07/26. Diet advanced to GI soft. No N/V. Minimal abdominal discomfort. Having BMs. Compazine PRN for nausea Diabetes mellitus, type 2 Takes a once weekly injection, cannot remember the name ACHS checks + Sliding Scale Insulin Hypertension / HLD / CAD - remote history of stents Carvedilol, lisinopril, amlodipine Obstructive sleep apnea Noncompliant with CPAP GERD Protonix Depression Celexa DC planning: Pending Clinical Course. Home tomorrow if WBC count improved and tolerating diet. NOLAN Araiza, 07/27/2024 8:21 AM [facility] Internal Medicine 7AM-7PM (all facilities): EpicChat or page through Dotflux. 7PM-7AM ([facility], [facility]): EpicChat or page, [phone]. 7PM-7AM ([place], [place], [place], [place] and [facility] Rehab): EpicChat or page through Dotflux. NOLAN Araiza 07/27/241850 NOLAN Araiza 07/27/241850 Physician Attestation I personally performed a face to face diagnostic evaluation on this patient on 07/27/24 I have repeated the ghosh portions of the history, review of systems,physical exam, reviewed relevant laboratory findings and imaging reports/films. I agree with the JENN findings and the plan . Adrienne Rodriguez MD Images from the original note were not included. [facility] - 6 CARD TELE/INTERMEDIATE [address] [place] [address] Hospital Medicine Progress Note Patient: Johnathan Correa Date of : 1960 Room: [facility]/ PCP: No primary care provider on file. Admission date: 07/24/2024 3:05 AM Encounter date: 07/26/24 Hospital Day: 3 SUBJECTIVE Chief complaints: No chief complaint on file. Interval History: Status: stable. Patient seen and examined at bedside. NGT pulled this morning. Denies N/V, but does admit to mild abdominal pain in bilateral upper quadrants. Otherwise tolerating CLD. WBC 16.3 > 17.5 > 15.9. Review of Systems Constitutional: Positive for activity change, appetite change (very thirsty) and fatigue. Negative for chills, diaphoresis and fever. Respiratory: Negative for cough, chest tightness, shortness of breath and wheezing. Cardiovascular: Positive for leg swelling. Negative for chest pain and palpitations. Gastrointestinal: Positive for abdominal distention, abdominal pain (upper quadrant, mild) and diarrhea (a few small loose BMs). Negative for constipation, nausea and vomiting. Passing gas, small loose BM Genitourinary: Negative for difficulty urinating. Musculoskeletal: Negative for arthralgias, gait problem and myalgias. Skin: Negative for color change, pallor, rash and wound. Neurological: Negative for dizziness, weakness, light-headedness and headaches. Psychiatric/Behavioral: Negative for dysphoric mood and sleep disturbance. The patient is not nervous/anxious. OBJECTIVE BP (!) 159/95 Pulse 86 Temp 36.5 C (97.7 F) (Oral) Resp 15 Ht 170.2 cm (5' 7 ) Wt (!) 144.1 kg (317 lb 9.6 oz) SpO2 98% BMI 49.74 kg/m Temp: [36.5 C (97.7 F)-36.7 C (98.1 F)] 36.5 C (97.7 F) Pulse: [86-96] 86 Resp: [12-21] 15 BP: (149-164)/(91-104) 159/95 SpO2: [95 %-98 %] 98 % O2 Device: None (Room air) O2 Flow Rate (L/min): [2 L/min] 2 L/min Intake/Output Summary (Last 24 hours) at 07/26/2024 0907 Last data filed at 07/25/2024 1430 Gross per 24 hour Intake -- Output 500 ml Net -500 ml Physical Exam Vitals reviewed. Constitutional: General: He is not in acute distress. Appearance: He is morbidly obese. HENT: Head: Normocephalic and atraumatic. Mouth/Throat: Mouth: Mucous membranes are moist. Eyes: General: No scleral icterus. Extraocular Movements: Extraocular movements intact. Conjunctiva/sclera: Conjunctivae normal. Pupils: Pupils are equal, round, and reactive to light. Cardiovascular: Rate and Rhythm: Normal rate and regular rhythm. Pulses: Normal pulses. Pulmonary: Effort: Pulmonary effort is normal. No respiratory distress. Breath sounds: Normal breath sounds. Abdominal: General: Abdomen is protuberant. Bowel sounds are decreased. There is distension (less than day prior). Tenderness: There is generalized abdominal tenderness (upper quadrant, mild). There is no guarding or rebound. Musculoskeletal: General: No signs of injury. Cervical back: Normal range of motion and neck supple. No tenderness. Right lower leg: Edema present. Left lower leg: Edema present. Skin: General: Skin is warm and dry. Capillary Refill: Capillary refill takes less than 2 seconds. Coloration: Skin is not jaundiced. Neurological: General: No focal deficit present. Mental Status: He is alert and oriented to person, place, and time. Cranial Nerves: No cranial nerve deficit. Psychiatric: Mood and Affect: Mood normal. Behavior: Behavior normal. Thought Content: Thought content normal. Medications Scheduled: insulin lispro, 2-10 Units, subcutaneous, Q6H metoprolol (LOPRESSOR) IV, 5 mg, intravenous, Q6H DONALD pantoprazole, 40 mg, intravenous, Q24H DONALD sodium chloride, 3 mL, intravenous, Q12H DONALD Infusions: dextrose 5 % in water, 100 mL/hr lactated ringer's, 125 mL/hr, Last Rate: 125 mL/hr (07/26/24 0320) As Needed: acetaminophen dextrose dextrose 5 % in water dextrose 50 % in water (D50W) glucagon (human recombinant) HYDROmorphone AND HYDROmorphone magnesium sulfate magnesium sulfate potassium chloride OR potassium chloride OR potassium chloride IV (Adult) prochlorperazine sodium chloride Allergies: Metformin Labs Recent Results (from the past 24 hours) Bedside Glucose *Place/Obtain serum glucose if >500(>600 MRH) per glucometer. Collection Time: 07/26/24 12:29 AM Result Value Ref Range Bedside glucose 143 (H) 65 - 99 mg/dL Comprehensive metabolic panel Collection Time: 07/26/24 5:14 AM Result Value Ref Range Sodium 140 134 - 146 mmol/L Potassium, Bld 3.9 3.5 - 5.0 mmol/L Chloride 101 98 - 109 mmol/L CO2 30 22 - 32 mmol/L Anion gap 9 5 - 15 mmol/L BUN 16 5 - 27 mg/dL Creatinine 0.93 0.60 - 1.30 mg/dL Glucose 134 (H) 65 - 99 mg/dL Calcium 8.4 (L) 8.5 - 10.5 mg/dL Total Protein 6.3 6.0 - 8.0 g/dL Albumin 3.5 3.2 - 5.3 g/dL Alkaline Phosphatase 69 39 - 130 U/L AST 17 0 - 41 U/L ALT 11 0 - 40 U/L Total bilirubin 1.3 (H) 0.3 - 1.2 mg/dL eGFR (CKD-EPI)non-race dependent >90 >59 ml/min/1.73sq.m Magnesium Collection Time: 07/26/24 5:14 AM Result Value Ref Range Magnesium 2.0 1.8 - 2.6 mg/dL CBC auto differential Collection Time: 07/26/24 5:14 AM Result Value Ref Range White Blood Cells 15.9 (H) 4.0 - 11.0 X10E9/L RBC count 5.87 (H) 4.10 - 5.70 X10E12/L Hemoglobin 15.5 13.0 - 17.0 g/dL Hematocrit 46.0 39 - 49 % MCV 78 (L) 80 - 100 fL MCH 26.5 (L) 27 - 34 pg MCHC 33.8 32 - 36 g/dL RDW 16.8 (H) 11.5 - 15.0 % Platelets 130 (L) 150 - 450 X10E9/L MPV 9.3 7 - 12 fL % neutrophils 83.1 % % lymphocytes 8.0 % % monocytes 7.5 % % eosinophils 0.9 % % Basophils 0.5 % Neutrophils Absolute (A) 13.3 (H) 1.5 - 6.6 X10E9/L Lymphocytes Absolute 1.3 1.0 - 3.5 X10E9/L Monocytes Absolute 1.2 (H) 0 - 0.9 X10E9/L Eosinophils Absolute 0.1 0.0 - 0.4 X10E9/L Basophils Absolute 0.1 0.0 - 0.2 X10E9/L Radiology X-ray abdomen ap 1 view Result Date: 07/24/2024 Narrative: Abdomen single view Clinical history:SBO abdominal pain bowel obstruction Comparison: None. Findings: AP supine view of the abdomen. Gas-filled dilated bowel loops are seen suggestive of evolving small bowel obstruction. Enteric catheter tip in the region of the gastric fundus. Residual contrast in the urinary bladder. Impression: Gas-filled dilated small bowel loops concerning for evolving small bowel obstruction. Finalized by Mayito Gonzalez MD on 07/24/2024 2:21 PM HOSPITAL PROBLEM LIST Principal Problem: Small bowel obstruction [place] Active Problems: JAM (obstructive sleep apnea) Hypertension DM2 (diabetes mellitus, type 2) ([facility]) CAD (coronary artery disease) ASSESSMENT & PLAN Small Bowel Obstruction General Surgery consulted. Passing gas and had small loose BM. Afebrile. WBC 16.3 > 17.5 > 15.9. NGT pulled this morning. Denies N/V, but does admit to mild abdominal pain in bilateral upper quadrants. Tolerating CLD. [place] PRN for pain and compazine PRN for nausea Diabetes mellitus, type 2 Takes a once weekly injection, cannot remember the name [facility] checks + Sliding Scale Insulin Hypertension / HLD / CAD - remote history of stents Carvedilol, lisinopril, amlodipine Obstructive sleep apnea Noncompliant with CPAP GERD Protonix Depression Celexa DC planning: Pending Clinical Course. NOLAN Araiza, 07/26/2024 9:07 AM [facility] 7AM-7PM (all facilities): EpicChat or page through Vocera. 7PM-7AM ([facility], [facility]): EpicChat or page, [phone]. 7PM-7AM ([place], [place], [place], [place] and [facility] Re[facility]): EpicChat or page through Vocera. NOLAN Araiza 07/26/24 1450 Physician Attestation I personally performed a face to face diagnostic evaluation on this patient on 07/26/24 I have repeated the ghosh portions of the history, review of systems,physical exam, reviewed relevant laboratory findings and imaging reports/films. I agree with the JENN findings and the plan . Adrienne Rodriguez MD Images from the original note were not included. [facility] General Surgery Daily Progress Note Patient Name: Johnathan Correa Admit Date: 07/24/2024 Length of Stay: 2 Days Admitting Physician: Adrienne Rodriguez MD Subjective: No acute events overnight. Patient reports abdominal pain is better than yesterday. He is less distended and less tympanic, but is eager to drink fluids. He denies nausea, vomiting, fever and chills. He reports passing gas and had a bowel movement this morning. WBC 15.9 (17.5), Hgb stable NGT clamped Objective: Vitals: 07/26/24 0700 BP: (!) 159/95 Pulse: Resp: Temp: 36.5 C (97.7 F) SpO2: Temp: [36.5 C (97.7 F)-36.7 C (98.1 F)] 36.5 C (97.7 F) Pulse: [86-96] 86 Resp: [12-21] 15 BP: (149-164)/(91-104) 159/95 SpO2: [95 %-98 %] 98 % O2 Device: None (Room air) O2 Flow Rate (L/min): [2 L/min] 2 L/min Allergies Allergen Reactions Metformin Anaphylaxis Intake/Output last 3 shifts: I/O last 3 completed shifts: In: 2852.9 [I.V.:2756.4; IV Piggyback:96.6] Out: 500 [Emesis/NG output:500] Intake/Output this shift: No intake/output data recorded. Dietary Orders (From admission, onward) Start Ordered 07/26/24632 Adult diet Clear Liquid Diet effective now Question: Diet Type: Answer: Clear Liquid 07/26/24631 Physical Exam General: Awake, alert, in no acute distress HENT: Head atraumatic, normocephalic, NGT in place Pulmonary: Regular, non-labored respirations, without use of accessory muscles Cardiovascular: Regular rate and rhythm Abdomen: nontender, soft, distended, tympanic to percussion Skin: Warm, dry, without jaundice Laboratory Data: Lab Results Component Value Date WBC 15.9 (H) 07/26/2024 HGB 15.5 07/26/2024 HCT 46.0 07/26/2024 MCV 78 (L) 07/26/2024 PLT 130 (L) 07/26/2024 Lab Results Component Value Date GLU 134 (H) 07/26/2024 CALCIUM 8.4 (L) 07/26/2024 K 3.9 07/26/2024 CO2 30 07/26/2024 CL 101 07/26/2024 BUN 16 07/26/2024 CREATININE 0.93 07/26/2024 No results found for: AMYLASE Lab Results Component Value Date LIPASE 10 (L) 07/24/2024 Lab Results Component Value Date ALT 11 07/26/2024 AST 17 07/26/2024 ALKPHOS 69 07/26/2024 No results found for: INR , PROTIME insulin lispro, 2-10 Units, subcutaneous, Q6H metoprolol (LOPRESSOR) IV, 5 mg, intravenous, Q6H DONALD pantoprazole, 40 mg, intravenous, Q24H DONALD sodium chloride, 3 mL, intravenous, Q12H DONALD acetaminophen dextrose dextrose 5 % in water dextrose 50 % in water (D50W) glucagon (human recombinant) HYDROmorphone AND HYDROmorphone magnesium sulfate magnesium sulfate potassium chloride OR potassium chloride OR potassium chloride IV (Adult) prochlorperazine sodium chloride Imaging: X-ray abdomen ap 1 view EXAM: XR ABDOMEN AP 1 VW CLINICAL INFORMATION: follow up small bowel distension. COMPARISON: 07/24/2024 FINDINGS: There remains air-filled dilated small bowel loops, though improved since 07/24/2024. There is no evidence of pneumatosis or free air. The tip of the gastric tube is in the stomach. IMPRESSION: 1. Persistent air-filled dilated small bowel loops, though improved since 07/24/2024. There is no evidence of pneumatosis or free air. 2. The tip of the gastric tube is in the stomach. Finalized by Segundo Fontanez MD on 07/25/2024 3:27 PM Assessment: Johnathan Correa is a 63 y.o. male admitted due to abdominal pain with concerns for ileus vs SBO. He is less distended and tympanic. He is having bowel function and no nausea with clamped NGT Plan: Ok for clears Remove NGT Fluid and electrolyte replacement PRN Pain and nausea control PRN Rest of care per primary Analisa Ward DO General Surgery, PGY-1 07/26/24 8:30 AM Cosigned by Álvaro Davis MD at 07/26/2024 5:36 PM EST Associated attestation - Álvaro Davis MD - 07/26/2024 5:36 PM EST Attending Attestation: I saw the patient. I performed the critical/ghosh portions of the service. I was directly involved in the management and treatment plan of the patient. I reviewed the resident's note. Additional Notes/Findings: Start CLD. Álvaro Davis MD, FACS General Surgery and Minimally Invasive Surgery [address], [address] [place], [place] [address] Office: Images from the original note were not included. [facility] [facility] - 6 CARD TELE/INTERMEDIATE [address] [facility] [id number] Hospital Medicine Progress Note Patient: Johnathan Correa Date of : 1960 Room: [facility] PCP: No primary care provider on file. Admission date: 07/24/2024 3:05 AM Encounter date: 07/25/24 Hospital Day: 2 SUBJECTIVE Chief complaints: No chief complaint on file. Interval History: Status: stable. Patient seen and examined at bedside. Passing gas and had small loose BM. WBC 16.3 > 17.5. NGT clamped. Abdominal pain and mild nausea persist. Remains NPO. Dry on exam. Bolus followed by continuous fluids. Review of Systems Constitutional: Positive for activity change, appetite change (very thirsty) and fatigue. Negative for chills, diaphoresis and fever. Respiratory: Negative for cough, chest tightness, shortness of breath and wheezing. Cardiovascular: Positive for leg swelling. Negative for chest pain and palpitations. Gastrointestinal: Positive for abdominal distention, abdominal pain and nausea. Negative for constipation, diarrhea and vomiting. Passing gas, small loose BM Genitourinary: Negative for difficulty urinating. Musculoskeletal: Negative for arthralgias, gait problem and myalgias. Skin: Negative for color change, pallor, rash and wound. Neurological: Negative for dizziness, weakness, light-headedness and headaches. Psychiatric/Behavioral: Negative for dysphoric mood and sleep disturbance. The patient is not nervous/anxious. OBJECTIVE BP (!) 149/93 Pulse 103 Temp 36.5 C (97.7 F) (Oral) Resp 19 Ht 170.2 cm (5' 7 ) Wt (!) 144.9 kg (319 lb 7.1 oz) Comment: actual weight on scale SpO2 92% BMI 50.03 kg/m Temp: [36 C (96.8 F)-36.8 C (98.2 F)] 36.5 C (97.7 F) Pulse: [99-108] 103 Resp: [17-22] 19 BP: (122-161)/(91-105) 149/93 FiO2 (%): [21 %] 21 % SpO2: [91 %-93 %] 92 % O2 Device: Nasal cannula O2 Flow Rate (L/min): [0 L/min-2 L/min] 2 L/min Intake/Output Summary (Last 24 hours) at 07/25/2024 0858 Last data filed at 07/25/2024 0609 Gross per 24 hour Intake 2852.94 ml Output -- Net 2852.94 ml Physical Exam Vitals reviewed. Constitutional: General: He is not in acute distress. Appearance: He is morbidly obese. HENT: Head: Normocephalic and atraumatic. Mouth/Throat: Mouth: Mucous membranes are dry. Eyes: General: No scleral icterus. Extraocular Movements: Extraocular movements intact. Conjunctiva/sclera: Conjunctivae normal. Pupils: Pupils are equal, round, and reactive to light. Cardiovascular: Rate and Rhythm: Regular rhythm. Tachycardia present. Pulses: Normal pulses. Pulmonary: Effort: Pulmonary effort is normal. No respiratory distress. Breath sounds: Normal breath sounds. Abdominal: General: Abdomen is protuberant. Bowel sounds are decreased. There is distension. Tenderness: There is generalized abdominal tenderness. There is no guarding or rebound. Musculoskeletal: General: No signs of injury. Cervical back: Normal range of motion and neck supple. No tenderness. Right lower leg: Edema present. Left lower leg: Edema present. Skin: General: Skin is warm and dry. Capillary Refill: Capillary refill takes less than 2 seconds. Coloration: Skin is not jaundiced. Neurological: General: No focal deficit present. Mental Status: He is alert and oriented to person, place, and time. Cranial Nerves: No cranial nerve deficit. Psychiatric: Mood and Affect: Mood normal. Behavior: Behavior normal. Thought Content: Thought content normal. Medications Scheduled: insulin lispro, 2-10 Units, subcutaneous, Q6H metoprolol (LOPRESSOR) IV, 5 mg, intravenous, Q6H DONALD pantoprazole, 40 mg, intravenous, Q24H DONALD sodium chloride, 3 mL, intravenous, Q12H DONALD Infusions: dextrose 5 % in water, 100 mL/hr lactated ringer's, 125 mL/hr As Needed: acetaminophen dextrose dextrose 5 % in water dextrose 50 % in water (D50W) glucagon (human recombinant) HYDROmorphone AND HYDROmorphone magnesium sulfate magnesium sulfate potassium chloride OR potassium chloride OR potassium chloride IV (Adult) prochlorperazine sodium chloride Allergies: Metformin Labs Recent Results (from the past 24 hours) CBC without diff Collection Time: 07/24/24 9:31 AM Result Value Ref Range White Blood Cells 16.3 (H) 4.0 - 11.0 X10E9/L RBC count 6.62 (H) 4.10 - 5.70 X10E12/L Hemoglobin 17.5 (H) 13.0 - 17.0 g/dL Hematocrit 52.1 (H) 39 - 49 % MCV 79 (L) 80 - 100 fL MCH 26.4 (L) 27 - 34 pg MCHC 33.6 32 - 36 g/dL RDW 16.9 (H) 11.5 - 15.0 % Platelets 158 150 - 450 X10E9/L MPV 8.9 7 - 12 fL Basic Metabolic Panel Collection Time: 07/24/24 9:31 AM Result Value Ref Range Sodium 135 134 - 146 mmol/L Potassium, Bld 4.2 3.5 - 5.0 mmol/L Chloride 104 98 - 109 mmol/L CO2 22 22 - 32 mmol/L Anion gap 9 5 - 15 mmol/L BUN 24 5 - 27 mg/dL Creatinine 0.90 0.60 - 1.30 mg/dL Glucose 218 (H) 65 - 99 mg/dL Calcium 8.4 (L) 8.5 - 10.5 mg/dL eGFR (CKD-EPI)non-race dependent >90 >59 ml/min/1.73sq.m Magnesium Collection Time: 07/24/24 9:31 AM Result Value Ref Range Magnesium 1.6 (L) 1.8 - 2.6 mg/dL Phosphorus Collection Time: 07/24/24 9:31 AM Result Value Ref Range Phosphorus 3.0 2.4 - 4.9 mg/dL Lipase Collection Time: 07/24/24 9:31 AM Result Value Ref Range Lipase 10 (L) 11 - 82 U/L Liver panel Collection Time: 07/24/24 9:31 AM Result Value Ref Range Alkaline phosphatase 51 39 - 130 U/L AST 26 0 - 41 U/L ALT 14 0 - 40 U/L Total Bilirubin 1.2 0.3 - 1.2 mg/dL Bilirubin, direct 0.2 0.0 - 0.4 mg/dL Albumin 3.8 3.2 - 5.3 g/dL Total Protein 6.6 6.0 - 8.0 g/dL Bedside Glucose *Place/Obtain serum glucose if >500(>600 MRH) per glucometer. Collection Time: 07/24/24 12:10 PM Result Value Ref Range Bedside glucose 202 (H) 65 - 99 mg/dL Bedside Glucose *Place/Obtain serum glucose if >500(>600 MRH) per glucometer. Collection Time: 07/24/24 6:31 PM Result Value Ref Range Bedside glucose 151 (H) 65 - 99 mg/dL Magnesium Collection Time: 07/24/24 8:47 PM Result Value Ref Range Magnesium 2.3 1.8 - 2.6 mg/dL Bedside Glucose *Place/Obtain serum glucose if >500(>600 MRH) per glucometer. Collection Time: 07/25/24 12:10 AM Result Value Ref Range Bedside glucose 167 (H) 65 - 99 mg/dL Comprehensive metabolic panel Collection Time: 07/25/24 5:23 AM Result Value Ref Range Sodium 139 134 - 146 mmol/L Potassium, Bld 4.1 3.5 - 5.0 mmol/L Chloride 102 98 - 109 mmol/L CO2 28 22 - 32 mmol/L Anion gap 9 5 - 15 mmol/L BUN 21 5 - 27 mg/dL Creatinine 0.98 0.60 - 1.30 mg/dL Glucose 179 (H) 65 - 99 mg/dL Calcium 8.4 (L) 8.5 - 10.5 mg/dL Total Protein 6.7 6.0 - 8.0 g/dL Albumin 3.8 3.2 - 5.3 g/dL Alkaline Phosphatase 57 39 - 130 U/L AST 20 0 - 41 U/L ALT 12 0 - 40 U/L Total bilirubin 1.3 (H) 0.3 - 1.2 mg/dL eGFR (CKD-EPI)non-race dependent 87 >59 ml/min/1.73sq.m Magnesium Collection Time: 07/25/24 5:23 AM Result Value Ref Range Magnesium 2.2 1.8 - 2.6 mg/dL CBC auto differential Collection Time: 07/25/24 5:23 AM Result Value Ref Range White Blood Cells 17.5 (H) 4.0 - 11.0 X10E9/L RBC count 6.51 (H) 4.10 - 5.70 X10E12/L Hemoglobin 17.2 (H) 13.0 - 17.0 g/dL Hematocrit 51.3 (H) 39 - 49 % MCV 79 (L) 80 - 100 fL MCH 26.4 (L) 27 - 34 pg MCHC 33.5 32 - 36 g/dL RDW 16.9 (H) 11.5 - 15.0 % Platelets 153 150 - 450 X10E9/L MPV 9.4 7 - 12 fL % neutrophils 87.1 % % lymphocytes 5.8 % % monocytes 6.6 % % eosinophils 0.2 % % Basophils 0.3 % Neutrophils Absolute (A) 15.2 (H) 1.5 - 6.6 X10E9/L Lymphocytes Absolute 1.0 1.0 - 3.5 X10E9/L Monocytes Absolute 1.2 (H) 0 - 0.9 X10E9/L Eosinophils Absolute 0.0 0.0 - 0.4 X10E9/L Basophils Absolute 0.0 0.0 - 0.2 X10E9/L Bedside Glucose *Place/Obtain serum glucose if >500(>600 MRH) per glucometer. Collection Time: 07/25/24 5:52 AM Result Value Ref Range Bedside glucose 178 (H) 65 - 99 mg/dL Radiology X-ray abdomen ap 1 view Result Date: 07/24/2024 Narrative: Abdomen single view Clinical history:SBO abdominal pain bowel obstruction Comparison: None. Findings: AP supine view of the abdomen. Gas-filled dilated bowel loops are seen suggestive of evolving small bowel obstruction. Enteric catheter tip in the region of the gastric fundus. Residual contrast in the urinary bladder. Impression: Gas-filled dilated small bowel loops concerning for evolving small bowel obstruction. Finalized by Mayito Gonzalez MD on 07/24/2024 2:21 PM HOSPITAL PROBLEM LIST Principal Problem: Small bowel obstruction (CMS-HCC) Active Problems: JAM (obstructive sleep apnea) Hypertension DM2 (diabetes mellitus, type 2) ([facility]) CAD (coronary artery disease) ASSESSMENT & PLAN Small Bowel Obstruction General Surgery consulted. Passing gas and had small loose BM. Afebrile. WBC 16.3 > 17.5. NGT clamped. Abdominal pain and mild nausea persist. Remains NPO. Dry on exam. Bolus followed by continuous fluids. Dilaudid PRN for pain and compazine PRN for nausea Diabetes mellitus, type 2 Takes a once weekly injection, cannot remember the name Q6 checks + Sliding Scale Insulin Hypertension Metoprolol IV Q6 Obstructive sleep apnea Noncompliant with CPAP CAD with remote history of stenting Follows with cardiology and takes aspirin GERD Protonix DC planning: Pending Clinical Course. NOLAN Araiza, 07/25/2024 8:58 AM [facility] Internal Medicine 7AM-7PM (all facilities): EpicChat or page through Dotflux. 7PM-7AM ([facility], [facility]): EpicChat or page, [phone]. 7PM-7AM ([place], [place], [place], [place] and [facility] Rehab): EpicChat or page through Dotflux. NOLAN Araiza 07/25/24 1704 Physician Attestation I personally performed a face to face diagnostic evaluation on this patient on 07/25/24 I have repeated the ghosh portions of the history, review of systems,physical exam, reviewed relevant laboratory findings and imaging reports/films. I agree with the JENN findings and the plan . Adrienne Rodriguez MD Images from the original note were not included. [facility] General Surgery Daily Progress Note Patient Name: Johnathan Correa Admit Date: 07/24/2024 Length of Stay: 1 Days Admitting Physician: Adrienne Rodriguez MD Subjective: No acute events overnight. Patient reports abdominal pain is slightly improved. He is still distended He is eager to drink fluids. He denies nausea, vomiting, fever and chills. He reports passing gas and had a bowel movement this morning. WBC 17.5 (16.3), Hgb stable NGT with minimal output Objective: Vitals: 07/25/24404 BP: (!) 161/92 Pulse: 103 Resp: 19 Temp: 36.7 C (98.1 F) SpO2: 92% Temp: [36 C (96.8 F)-36.8 C (98.2 F)] 36.7 C (98.1 F) Pulse: [99-108] 103 Resp: [17-22] 19 BP: (122-161)/(91-105) 161/92 FiO2 (%): [21 %] 21 % SpO2: [91 %-93 %] 92 % O2 Device: None (Room air) O2 Flow Rate (L/min): [0 L/min] 0 L/min Allergies Allergen Reactions Metformin Anaphylaxis Intake/Output last 3 shifts: No intake/output data recorded. Intake/Output this shift: I/O this shift: In: 2852.9 [I.V.:2756.4; IV Piggyback:96.6] Out: - Dietary Orders (From admission, onward) Start Ordered 07/24/24407 Adult diet NPO Diet effective now Question: Diet Type: Answer: NPO 07/24/24408 Physical Exam General: Awake, alert, in no acute distress HENT: Head atraumatic, normocephalic, NGT in place Pulmonary: Regular, non-labored respirations, without use of accessory muscles Cardiovascular: Regular rate and rhythm Abdomen: tenderness to palpation across the upper abdomen, distended, tympanic to percussion Skin: Warm, dry, without jaundice Laboratory Data: Lab Results Component Value Date WBC 17.5 (H) 07/25/2024 HGB 17.2 (H) 07/25/2024 HCT 51.3 (H) 07/25/2024 MCV 79 (L) 07/25/2024 PLT 153 07/25/2024 Lab Results Component Value Date GLU 178 (H) 07/25/2024 CALCIUM 8.4 (L) 07/25/2024 K 4.1 07/25/2024 CO2 28 07/25/2024 CL 102 07/25/2024 BUN 21 07/25/2024 CREATININE 0.98 07/25/2024 No results found for: AMYLASE Lab Results Component Value Date LIPASE 10 (L) 07/24/2024 Lab Results Component Value Date ALT 12 07/25/2024 AST 20 07/25/2024 ALKPHOS 57 07/25/2024 No results found for: INR , PROTIME insulin lispro, 2-10 Units, subcutaneous, Q6H sodium chloride, 3 mL, intravenous, Q12H DONALD acetaminophen dextrose dextrose 5 % in water dextrose 50 % in water (D50W) glucagon (human recombinant) HYDROmorphone AND HYDROmorphone magnesium sulfate magnesium sulfate metoprolol (LOPRESSOR) IV potassium chloride OR potassium chloride OR potassium chloride IV (Adult) prochlorperazine sodium chloride Imaging: X-ray abdomen ap 1 view Abdomen single view Clinical history:SBO abdominal pain bowel obstruction Comparison: None. Findings: AP supine view of the abdomen. Gas-filled dilated bowel loops are seen suggestive of evolving small bowel obstruction. Enteric catheter tip in the region of the gastric fundus. Residual contrast in the urinary bladder. Impression: Gas-filled dilated small bowel loops concerning for evolving small bowel obstruction. Finalized by Mayito Gonzalez MD on 07/24/2024 2:21 PM Assessment: Johnathan Correa is a 63 y.o. male admitted due to abdominal pain with concerns for ileus vs SBO. He remains distended and tympanic with tenderness and had an increase in his WBC, despite having bowel function and slightly improved KUB compared to initial CT. Plan: Repeat KUB today Clamp NGT Fluid and electrolyte replacement PRN Pain and nausea control PRN Rest of care per primary Dinorah Lundy, MS3 Rona Gage MD General Surgery Resident PGY-5 07/25/24 Cosigned by Francois Pate MD at 07/25/2024 9:05 AM EST Associated attestation - Francois Pate MD - 07/25/2024 9:05 AM EST The patient remains distended. He has been getting fluids at 125 mL/hour but this was stopped a few hours ago. He is profoundly thirsty. I believe he is intravascularly depleted. The patient is disabled based on his many health conditions. He is status post coronary artery stenting and takes baby aspirin. The patient is high-risk for surgery based on his coronary disease and morbid obesity and sleep apnea. I reviewed and read interpreted the CT images. They appeared to show small-bowel obstruction. His colon is collapsed. There was distal small bowel that has collapsed. Follow up plain films yesterday showed persistent gas-filled loops of small bowel. He is moving his bowels now. Plan fluid bolus 500 mL and restart intravenous fluids. Repeat abdominal x-rays today. Clamp NG tube. Attending Attestation: I saw the patient. I participated and was physically present during the critical/ghosh portions of the service. I was directly involved in the management and treatment plan of the patient. I reviewed the resident's note. Additional Notes/Findings: I have seen and evaluated the patient, and have reviewed the history above and agree. I have repeated the ghosh portions of the physical exam and concur with the resident's findings. I have reviewed all laboratory findings and imaging reports/films. I agree with the plan as noted above. documented in this encounter [facility] 07-28-2024 Nurse Note Plan of care reviewed with ANTOINETTE Tran. [facility] 07-28-2024 Nurse Note Plan of care reviewed with ANTOINETTE Tran. Plan of care reviewed with insecticide maker Pt tolerated reg diet eating 25% of his breakfast NG tube removed per order, Pt tolerated procedure well. No c/o pain of nausea. Pts diet has advanced to clear liquids Images from the original note were not included. Rapid Response Note While rounding on floor noticed that apnea alarm continues to alarm with sat in the 70's. Pt sleeping with shallow resp. Pt awakens easily and sats return to above 90%. Pt states he has JAM and is supposed to wear CPAP but does not wear his as ordered. Pt does not have a CPAP machine with him. Teresa Nguyen RN [id number] Rapid Response: [facility] Patient arrived at [address] [facility]. The patient arrived with an NG tube at 64 cm and was hooked to suction at the previous facility. Reached out to the FIRE BATTALION CHIEF digital solution architect for suction orders and was advised to reach out to General Surgery for suction orders. I paged Dr. Pate who was digital solution architect for general surgery and told him about the consult and the need for suction orders and he told me that I can not call at [phone] and ask for orders for a new consult he doesn't even know. I told him I was advised to reach out to him for the suction order and he advised me to reach back out to the FIRE BATTALION CHIEF digital solution architect as he was not doing it. Sent another secure messaged to the FIRE B[employer] CHIEF digital solution architect. Waiting for orders. Will continue to monitor. documented in this encounter [facility] 07-28-2024 Plan of care note Problem: Pain Goal: Patient goal is pain score less than 4, able to rest, and participant in treatment plan as appropriate Description: INTERVENTIONS: 1. Encourage patient or legal rental representative to report early pain and ask for pain medicine when needed 2. Assess pain using appropriate pain scale and include the scale used when documenting 3. Administer analgesics based on type and severity of pain and evaluate response within appropriate time frame 4. Implement non-pharmacological measures as appropriate and evaluate response 5. Consider cultural and social influences on pain and pain management 6. Notify LIP if interventions ineffective or patient reports new pain 7. Monitor vital signs including pulse ox, end-tidal CO2 based on pain intervention 8. Reassess pain per policy 9. Teach patient or legal rental representative interventions for comforting Outcome: Progressing Note: Evaluation of progress towards goal: Patient encouraged to report pain early. [facility] 07-27-2024 Plan of care note Problem: Safety Goal: Patient will be injury free during hospitalization Description: INTERVENTIONS: 1. Assess patient's risk for falls and implement fall prevention plan of care per policy 2. Provide and maintain a safe environment 3. Proper use of double Identifiers 4. Medication administration using the 5 rights 5. Hand hygiene 6. Specimens are labeled at the bedside 7. Instruct patient/ patient rental representative about use of safety devices 8. Include patient/ patient rental representative in decisions related to safety Outcome: Progressing Note: Evaluation of progress towards goal: call light within reach and bed in lowest position [facility] 07-27-2024 Nurse Note Plan of care reviewed with insecticide maker [facility] 07-27-2024 Nurse Note Pt tolerated reg diet eating 25% of his breakfast [facility] 07-27-2024 Progress note Formatting of t his note is different from the original. Query Response Note AUTOMATED QUERY TEXT: Type of Depression: Please provide further specificity, if known. Clinical indicators include: sleep disturbance, depression Options provided: -- Anxiety depression -- Major depression -- Bipolar disorder -- Situational depression -- Other - I will add my own diagnosis -- Dismiss - Not applicable / Not valid AUTOMATED QUERY RESPONSE TEXT: The patient has major depression. Electronically signed by: Stephanie FRANCISCO 07/27/2024 6:57 AM [facility] 07-27-2024 Plan of care note Problem: Pain Goal: Patient goal is pain score less than 4, able to rest, and participant in treatment plan as appropriate Description: INTERVENTIONS: 1. Encourage patient or legal rental representative to report early pain and ask for pain medicine when needed 2. Assess pain using appropriate pain scale and include the scale used when documenting 3. Administer analgesics based on type and severity of pain and evaluate response within appropriate time frame 4. Implement non-pharmacological measures as appropriate and evaluate response 5. Consider cultural and social influences on pain and pain management 6. Notify LIP if interventions ineffective or patient reports new pain 7. Monitor vital signs including pulse ox, end-tidal CO2 based on pain intervention 8. Reassess pain per policy 9. Teach patient or legal rental representative interventions for comforting Outcome: Progressing Note: Evaluation of progress towards goal: Patient denies pain at this time and is sleeping comfortably in bed. [facility] 07-26-2024 Progress note Formatting of t his note might be different from the original. DISCHARGE PLANNING NOTE Chart reviewed and case discussed in daily transition rounds this AM. Pt currently holds a 11.4% readmission risk.Per RN, NG tube out and pt tolerating clear liq diet. Ant possible d/c tomorrow. No needs anticipated. CN will continue to follow and is available should any further needs arise. [facility] 07-26-2024 Plan of care note Problem: Infection Goal: Absence of infection during hospitalization Description: Interventions: 1. Assess and monitor for signs and symptoms of infection 2. Monitor lab/diagnostic results 3. Monitor all insertion sites i.e., indwelling lines, tubes and drains 4. Monitor endotracheal (as able) and nasal secretions for changes in amount and color 5. Administer medications as ordered 6. Instruct and encourage patient and family to use good hand hygiene technique 7. Identify and instruct patient/patient rental representative in use of appropriate isolation precautions for identified infection/symptoms 8. Provide and discuss with patient/patient rental representative on educational MDRO sheet 9. Encourage and monitor nutritional status daily and consult model maker scale if indicated 10. Implement neutropenic guidelines as needed 11. Review exposure to history of communicable disease and recent travel history on admission 12. Encourage annual influenza vaccine 13. Encourage pneumonia vaccine Outcome: Progressing Note: Evaluation of progress towards goal: vital signs and labs are monitored each shift [facility] Nurse Note NG tube removed per order, Pt tolerated procedure well. No c/o pain of nausea. Pts diet has advanced to clear liquids [facility] Plan of care note Problem: Pain Goal: Patient goal is pain score less than 4, able to rest, and participant in treatment plan as appropriate Description: INTERVENTIONS: 1. Encourage patient or legal rental representative to report early pain and ask for pain medicine when needed 2. Assess pain using appropriate pain scale and include the scale used when documenting 3. Administer analgesics based on type and severity of pain and evaluate response within appropriate time frame 4. Implement non-pharmacological measures as appropriate and evaluate response 5. Consider cultural and social influences on pain and pain management 6. Notify LIP if interventions ineffective or patient reports new pain 7. Monitor vital signs including pulse ox, end-tidal CO2 based on pain intervention 8. Reassess pain per policy 9. Teach patient or legal rental representative interventions for comforting Outcome: Progressing Note: Evaluation of progress towards goal: Patient denies pain at this time. Problem: Safety Goal: Patient will be injury free during hospitalization Description: INTERVENTIONS: 1. Assess patient's risk for falls and implement fall prevention plan of care per policy 2. Provide and maintain a safe environment 3. Proper use of double Identifiers 4. Medication administration using the 5 rights 5. Hand hygiene 6. Specimens are labeled at the bedside 7. Instruct patient/ patient rental representative about use of safety devices 8. Include patient/ patient rental representative in decisions related to safety Outcome: Progressing Note: Evaluation of progress towards goal: Patient is independent and up with a steady gait. Problem: Discharge Planning Goal: Discharge to post-acute care, other facility, or home with appropriate resources Description: Patient's goal is: INTERVENTIONS 1. Conduct assessment to determine patient/family and health care team treatment goals, and need for post-acute services based on payer coverage, community resources, and patient preferences, and barriers to discharge 2. Coordinate with Social work, Care Navigation, and Utilization Review to arrange appropriate level of services according to patient's needs based on patient preference and payer coverage in collaboration with the physician and health care team 3. Address psychosocial, clinical, and financial barriers to discharge as identified in assessment in conjunction with the patient/family and health care team 4. Consult appropriate ancillary services (i.e.. PT/OT/ST, etc) as needed 5. Communicate with and update the patient/family, physician, and health care team regarding progress on the discharge plan 6. Identify discharge learning needs (meds, wound care, etc). 7. Arrange for needed discharge transportation as appropriate Outcome: Progressing Note: Evaluation of progress towards goal: Plan is for patient to go home with her . [facility] 07-25-2024 Plan of care note Problem: Discharge Planning Goal: Discharge to post-acute care, other facility, or home with appropriate resources Description: Patient's goal is: INTERVENTIONS 1. Conduct assessment to determine patient/family and health care team treatment goals, and need for post-acute services based on payer coverage, community resources, and patient preferences, and barriers to discharge 2. Coordinate with Social work, Care Navigation, and Utilization Review to arrange appropriate level of services according to patient's needs based on patient preference and payer coverage in collaboration with the physician and health care team 3. Address psychosocial, clinical, and financial barriers to discharge as identified in assessment in conjunction with the patient/family and health care team 4. Consult appropriate ancillary services (i.e.. PT/OT/ST, etc) as needed 5. Communicate with and update the patient/family, physician, and health care team regarding progress on the discharge plan 6. Identify discharge learning needs (meds, wound care, etc). 7. Arrange for needed discharge transportation as appropriate Outcome: Progressing Note: Evaluation of progress towards goal: [facility] 07-25-2024 Nurse Note Images from the original note were not included. Rapid Response Note While rounding on floor noticed that apnea alarm continues to alarm with sat in the 70's. Pt sleeping with shallow resp. Pt awakens easily and sats return to above 90%. Pt states he has JAM and is supposed to wear CPAP but does not wear his as ordered. Pt does not have a CPAP machine with him. Teresa Nguyen RN [id number] Rapid Response: [facility] 07-25-2024 Plan of care note Problem: Pain Goal: Patient goal is pain score less than 4, able to rest, and participant in treatment plan as appropriate Description: INTERVENTIONS: 1. Encourage patient or legal rental representative to report early pain and ask for pain medicine when needed 2. Assess pain using appropriate pain scale and include the scale used when documenting 3. Administer analgesics based on type and severity of pain and evaluate response within appropriate time frame 4. Implement non-pharmacological measures as appropriate and evaluate response 5. Consider cultural and social influences on pain and pain management 6. Notify LIP if interventions ineffective or patient reports new pain 7. Monitor vital signs including pulse ox, end-tidal CO2 based on pain intervention 8. Reassess pain per policy 9. Teach patient or legal rental representative interventions for comforting Outcome: Progressing Note: Evaluation of progress towards goal: Patient denies pain at this time and NG hooked up to LIWS. [facility] 07-24-2024 Plan of care note Problem: Pain Goal: Patient goal is pain score less than 4, able to rest, and participant in treatment plan as appropriate Description: INTERVENTIONS: 1. Encourage patient or legal rental representative to report early pain and ask for pain medicine when needed 2. Assess pain using appropriate pain scale and include the scale used when documenting 3. Administer analgesics based on type and severity of pain and evaluate response within appropriate time frame 4. Implement non-pharmacological measures as appropriate and evaluate response 5. Consider cultural and social influences on pain and pain management 6. Notify LIP if interventions ineffective or patient reports new pain 7. Monitor vital signs including pulse ox, end-tidal CO2 based on pain intervention 8. Reassess pain per policy 9. Teach patient or legal rental representative interventions for comforting Outcome: Progressing Note: Evaluation of progress towards goal: Pain well managed with karthikeyan ellison to [facility]. Problem: Safety Goal: Patient will be injury free during hospitalization Description: INTERVENTIONS: 1. Assess patient's risk for falls and implement fall prevention plan of care per policy 2. Provide and maintain a safe environment 3. Proper use of double Identifiers 4. Medication administration using the 5 rights 5. Hand hygiene 6. Specimens are labeled at the bedside 7. Instruct patient/ patient rental representative about use of safety devices 8. Include patient/ patient rental representative in decisions related to safety Outcome: Progressing Note: Evaluation of progress towards goal: No falls or injuries this shift. Problem: Infection Goal: Absence of infection during hospitalization Description: Interventions: 1. Assess and monitor for signs and symptoms of infection 2. Monitor lab/diagnostic results 3. Monitor all insertion sites i.e., indwelling lines, tubes and drains 4. Monitor endotracheal (as able) and nasal secretions for changes in amount and color 5. Administer medications as ordered 6. Instruct and encourage patient and family to use good hand hygiene technique 7. Identify and instruct patient/patient rental representative in use of appropriate isolation precautions for identified infection/symptoms 8. Provide and discuss with patient/patient rental representative on educational MDRO sheet 9. Encourage and monitor nutritional status daily and consult model maker scale if indicated 10. Implement neutropenic guidelines as needed 11. Review exposure to history of communicable disease and recent travel history on admission 12. Encourage annual influenza vaccine 13. Encourage pneumonia vaccine Outcome: Progressing Note: Evaluation of progress towards goal: WBC count elevated on admission. Afebrile this shift. Will continue to monitor. Problem: Knowledge Deficit Goal: Patient/patient rental representative demonstrates understanding of disease process, treatment plan, medications, and discharge instructions Description: INTERVENTIONS 1. Complete learning assessment and assess knowledge base 2. Provide teaching at level of understanding 3. Provide teaching via preferred learning method(s) Outcome: Progressing Note: Evaluation of progress towards goal: Plan for treatment continues to be in question. NGT continues. Problem: Discharge Planning Goal: Discharge to post-acute care, other facility, or home with appropriate resources Description: Patient's goal is: INTERVENTIONS 1. Conduct assessment to determine patient/family and health care team treatment goals, and need for post-acute services based on payer coverage, community resources, and patient preferences, and barriers to discharge 2. Coordinate with Social work, Care Navigation, and Utilization Review to arrange appropriate level of services according to patient's needs based on patient preference and payer coverage in collaboration with the physician and health care team 3. Address psychosocial, clinical, and financial barriers to discharge as identified in assessment in conjunction with the patient/family and health care team 4. Consult appropriate ancillary services (i.e.. PT/OT/ST, etc) as needed 5. Communicate with and update the patient/family, physician, and health care team regarding progress on the discharge plan 6. Identify discharge learning needs (meds, wound care, etc). 7. Arrange for needed discharge transportation as appropriate Outcome: Progressing Note: Evaluation of progress towards goal: Plan to return home at discharge with spouse. [facility] [employer] Work Phone: 07-24-2024 Progress note Formatting of t his note is different from the original. Physical Therapy PT Type of Visit: (Per RN, pt is independent with mobility & has no PT needs. Will discontinue PT order at this time.) [facility] [employer] 07-24-2024 Progress note Formatting of t his note is different from the original. Occupational Therapy OT Type of Visit: Discharge from Therapy (Per RN report, pt is indep with ADLs and functional mobility. No acute OT needs identified. Will discontinue OT order at this time.) [facility] [employer] 07-24-2024 Progress note Formatting of t his note is different from the original. DISCHARGE PLANNING NOTE Heddler met with patient, introduced self, and explained role. Patient educated on safe discharge plan. Pt admitted 07/24/2024 with Small bowel obstruction (CMS-HCC) [K56.609] Small bowel obstruction (CMS-HCC) [K56.609] per chart review. Pt is listed in [facility] as a 5% risk for re-admission. Pt reports that he is from the [facility]. Confirms that he does have health insurance. Consults: Surgery Discharge Barriers per Daily Transition Rounds and chart review: pt currently has NG, surgery consulted, pain and nausea control. Past Medical History: Diagnosis Date Former cigarette smoker 2012 quit 12 years ago Prior to admission patient was living with spouse/significant other and self care. Medical equipment patient used prior to admission includes: None. Patient denies need for transportation/ food/ prescription medication assistance resources. PCP: No primary care provider on file. Pharmacy: [facility] PCP and pharmacy confirmed with patient. CN offered to assist with follow up appointment arrangements; patient declines. No primary care provider on file. added to Follow Up Providers for Summary of Care communication. Current discharge plan is: Pt to discharge home with self-care. Services Requested: Services Requested Patient expects to be discharged to:: Home Discharge Disposition: Home with self care Does the patient need discharge transportation arranged?: No Mobility issues discussed with transportation provider: No Financial Disclosure Provided for In-Network Referral: No Initial DC Assessment Completed: Yes DC Planning Complete Discharge Milestones: Yes Goals: Goals None Will continue to follow as plan of care develops. CN discussed benefits and importance of medication compliance and follow ups. Please feel free to reach out for any discharge planning questions. - Alaina Slaughter LCSW 07/24/24 9:19 AM [facility] [employer] 07-24-2024 History and physical note Images from the original note were not included. [facility] - 6 CARD TELE/INTERMEDIATE [address] [place] [address] [facility] Medicine History & Physical Patient: Johnathan Stewart Date of : 1960 Room: [facility]/ PCP: No primary care provider on file. Admission date: 07/24/2024 3:05 AM Encounter date: 07/24/24 Hospital Day: 1 SUBJECTIVE Johnathan Stewart is a 63 y.o. male who presents with abdominal pain and nausea that started at 3:00 PM this afternoon. He reported a normal bowel movement the day prior and denied any history of abdominal surgery. He was seen at [place] ED, and work up was completed with labs overall unremarkable but creatinine 1.[address] abd/pelvis showed prominent gas and fluid filled distended small bowel loops appear to show gradual tapering to normal caliber distally, with no transition point identified, favoring severe small bowel ileus over partial distal small bowel obstruction. ED attending spoke with Dr. Ferrara regarding the patient who recommended patient be admitted to [facility] to see the surgery team here. An NG tube was placed after discussion with general surgery prior to transfer. On arrival to [facility], he is having 10/10 abdominal pain and nausea. Allergies: Metformin Prior to Admission medications Not on File Past Medical History: Patient has a past medical history of Former cigarette smoker (2011). Past Surgical History: Patient has no past surgical history on file. Family History: Patient's family history is not on file. Social History: Patient Review of Systems Constitutional: Negative for activity change, appetite change, chills, fatigue, fever and unexpected weight change. HENT: Negative for congestion, dental problem, hearing loss, rhinorrhea, sore throat, trouble swallowing and voice change. Eyes: Negative for visual disturbance. Respiratory: Negative for cough, sputum production, shortness of breath and wheezing. Cardiovascular: Negative for chest pain, palpitations and leg swelling. Gastrointestinal: Abdominal pain, nausea and vomiting. Genitourinary: Negative for difficulty urinating, dysuria, enuresis, frequency and hematuria. Musculoskeletal: Negative for arthralgias, joint swelling and myalgias. Skin: Negative for color change, rash and wound. Neurological: Negative for dizziness, seizures, syncope, speech difficulty, weakness, numbness and headaches. Psychiatric/Behavioral: Negative for dysphoric mood and sleep disturbance. The patient is not nervous/anxious. OBJECTIVE BP (!) 154/109 Pulse 99 Temp 36.9 C (98.4 F) (Oral) Resp 18 Ht 170.2 cm (5' 7 ) Wt (!) 144.9 kg (319 lb 7.1 oz) Comment: actual weight on scale BMI 50.03 kg/m Temp: [36.9 C (98.4 F)] 36.9 C (98.4 F) Pulse: [99] 99 Resp: [18] 18 BP: (154)/(109) 154/109 O2 Device: None (Room air) No intake or output data in the 24 hours ending 07/24/24 0411 Physical Exam Constitutional: General: Not in acute distress. Appearance: Normal appearance and is well-developed. HENT: Head: Normocephalic and atraumatic. Right Ear: External ear normal. Left Ear: External ear normal. Nose: Nose normal. Mouth/Throat: Lips: [place]. Mouth: Mucous membranes are dry. Pharynx: Oropharynx is clear. Eyes: General: No scleral icterus. Extraocular Movements: Extraocular movements intact. Pupils: Pupils are equal, round, and reactive to light. Cardiovascular: Rate and Rhythm: Normal rate and regular rhythm. Heart sounds: Normal heart sounds, S1 normal and S2 normal. No murmur heard. No friction rub. No gallop. Pulmonary: Effort: Pulmonary effort is normal. Breath sounds: Normal breath sounds. No decreased breath sounds, wheezing, rhonchi or rales. Abdominal: General: Bowel sounds are hypoactive. Tenderness: Abdominal tenderness, epigastric region. Distention. Musculoskeletal: Right lower leg: No edema. Left lower leg: No edema. Skin: General: Skin is warm and dry. Findings: BLE with dry flaking and discolored. Neurological: General: No focal deficit present. Mental Status: Alert and oriented to person, place, and time. Psychiatric: Attention and Perception: Attention normal. Mood and Affect: Mood and affect normal. Behavior: Behavior normal. Behavior is cooperative. Medications As Needed: acetaminophen dextrose dextrose 5 % in water dextrose 50 % in water (D50W) glucagon (human recombinant) HYDROmorphone AND HYDROmorphone prochlorperazine sodium chloride Allergies: Metformin Labs No results found for this or any previous visit (from the past 24 hours). Radiology No results found. HOSPITAL PROBLEM LIST Principal Problem: Small bowel obstruction (CMS-HCC) ASSESSMENT & PLAN Small bowel obstruction versus ileus CT abd/pelvis showed prominent gas and fluid filled distended small bowel loops appear to show gradual tapering to normal caliber distally, with no transition point identified, favoring severe small bowel ileus over partial distal small bowel obstruction. NPO ED physician spoke with Dr. Ferrara for surgery consult and placed NG tube - recommended transfer to [facility] to see surgery NG tube to low sunction Dilaudid PRN for pain and compazine PRN for nausea Diabetes mellitus, type 2 Takes a once weekly injection, cannot remember the name Cover with SSI while inpatient Obstructive sleep apnea Does not wear a CPAP at home CAD with remote history of stenting Follows with cardiology and takes aspirin Admission orders placed and home medications reconciled. DVT/VTE prophylaxis: SCD DC planning: pending clinical course. EMMETT SUAER PA-C 07/24/2024 4:11 AM [facility] Internal Medicine 7AM-7PM (all facilities): [employer] or page through [employer]. 7PM-7AM ([facility], [facility] Psychiatry and Inpatient Rehab): [employer] or page, [phone]. 7PM-7AM ([facility], [place], [place] and [facility] Rehab): [employer]Chat or page through [employer]. Emmett Sauer PA-C 07/24/24 0649 Physician Attestation I personally performed a face to face diagnostic evaluation on this patient on 07/24/24 I have repeated the ghosh portions of the history, review of systems,physical exam, reviewed relevant laboratory findings and imaging reports/films. I agree with the JENN findings and the plan . Patient indicates improved abdominal pain , NG in place. CT A/P done at outlying unavailable, being loaded into imaging per staff. G[facility]x consulted, pending eval . Discussed plan of care with patient. Adrienne Rodriguez MD [facility] [employer] 07-24-2024 History and physical note Images from the original note were not included. [facility] - 6 CARD TELE/INTERMEDIATE [address] [place] [address] Hospital Medicine History & Physical Patient: Johnathan Stewart Date of : 1960 Room: [facility] PCP: No primary care provider on file. Admission date: 07/24/2024 3:05 AM Encounter date: 07/24/24 Hospital Day: 1 SUBJECTIVE Johnathan Stewart is a 63 y.o. male who presents with abdominal pain and nausea that started at 3:00 PM this afternoon. He reported a normal bowel movement the day prior and denied any history of abdominal surgery. He was seen at [place] ED, and work up was completed with labs overall unremarkable but creatinine 1.[address] abd/pelvis showed prominent gas and fluid filled distended small bowel loops appear to show gradual tapering to normal caliber distally, with no transition point identified, favoring severe small bowel ileus over partial distal small bowel obstruction. ED attending spoke with Dr. Ferrara regarding the patient who recommended patient be admitted to [facility] to see the surgery team here. An NG tube was placed after discussion with general surgery prior to transfer. On arrival to [facility], he is having 10/10 abdominal pain and nausea. Allergies: Metformin Prior to Admission medications Not on File Past Medical History: Patient has a past medical history of Former cigarette smoker (2011). Past Surgical History: Patient has no past surgical history on file. Family History: Patient's family history is not on file. Social History: Patient Review of Systems Constitutional: Negative for activity change, appetite change, chills, fatigue, fever and unexpected weight change. HENT: Negative for congestion, dental problem, hearing loss, rhinorrhea, sore throat, trouble swallowing and voice change. Eyes: Negative for visual disturbance. Respiratory: Negative for cough, sputum production, shortness of breath and wheezing. Cardiovascular: Negative for chest pain, palpitations and leg swelling. Gastrointestinal: Abdominal pain, nausea and vomiting. Genitourinary: Negative for difficulty urinating, dysuria, enuresis, frequency and hematuria. Musculoskeletal: Negative for arthralgias, joint swelling and myalgias. Skin: Negative for color change, rash and wound. Neurological: Negative for dizziness, seizures, syncope, speech difficulty, weakness, numbness and headaches. Psychiatric/Behavioral: Negative for dysphoric mood and sleep disturbance. The patient is not nervous/anxious. OBJECTIVE BP (!) 154/109 Pulse 99 Temp 36.9 C (98.4 F) (Oral) Resp 18 Ht 170.2 cm (5' 7 ) Wt (!) 144.9 kg (319 lb 7.1 oz) Comment: actual weight on scale BMI 50.03 kg/m Temp: [36.9 C (98.4 F)] 36.9 C (98.4 F) Pulse: [99] 99 Resp: [18] 18 BP: (154)/(109) 154/109 O2 Device: None (Room air) No intake or output data in the 24 hours ending 07/24/24 0411 Physical Exam Constitutional: General: Not in acute distress. Appearance: Normal appearance and is well-developed. HENT: Head: Normocephalic and atraumatic. Right Ear: External ear normal. Left Ear: External ear normal. Nose: Nose normal. Mouth/Throat: Lips: [place]. Mouth: Mucous membranes are dry. Pharynx: Oropharynx is clear. Eyes: General: No scleral icterus. Extraocular Movements: Extraocular movements intact. Pupils: Pupils are equal, round, and reactive to light. Cardiovascular: Rate and Rhythm: Normal rate and regular rhythm. Heart sounds: Normal heart sounds, S1 normal and S2 normal. No murmur heard. No friction rub. No gallop. Pulmonary: Effort: Pulmonary effort is normal. Breath sounds: Normal breath sounds. No decreased breath sounds, wheezing, rhonchi or rales. Abdominal: General: Bowel sounds are hypoactive. Tenderness: Abdominal tenderness, epigastric region. Distention. Musculoskeletal: Right lower leg: No edema. Left lower leg: No edema. Skin: General: Skin is warm and dry. Findings: BLE with dry flaking and discolored. Neurological: General: No focal deficit present. Mental Status: Alert and oriented to person, place, and time. Psychiatric: Attention and Perception: Attention normal. Mood and Affect: Mood and affect normal. Behavior: Behavior normal. Behavior is cooperative. Medications As Needed: acetaminophen dextrose dextrose 5 % in water dextrose 50 % in water (D50W) glucagon (human recombinant) HYDROmorphone AND HYDROmorphone prochlorperazine sodium chloride Allergies: Metformin Labs No results found for this or any previous visit (from the past 24 hours). Radiology No results found. HOSPITAL PROBLEM LIST Principal Problem: Small bowel obstruction (CMS-HCC) ASSESSMENT & PLAN Small bowel obstruction versus ileus CT abd/pelvis showed prominent gas and fluid filled distended small bowel loops appear to show gradual tapering to normal caliber distally, with no transition point identified, favoring severe small bowel ileus over partial distal small bowel obstruction. NPO ED physician spoke with Dr. Ferrara for surgery consult and placed NG tube - recommended transfer to [facility] to see surgery NG tube to low sunction Dilaudid PRN for pain and compazine PRN for nausea Diabetes mellitus, type 2 Takes a once weekly injection, cannot remember the name Cover with SSI while inpatient Obstructive sleep apnea Does not wear a CPAP at home CAD with remote history of stenting Follows with cardiology and takes aspirin Admission orders placed and home medications reconciled. DVT/VTE prophylaxis: SCD DC planning: pending clinical course. EMMETT SAUER PA-C 07/24/2024 4:11 AM [facility] Internal Medicine 7AM-7PM (all facilities): [employer] or page through [employer]. 7PM-7AM ([facility], [facility] Psychiatry and Inpatient Rehab): EpicChat or page, [phone]. 7PM-7AM ([place], [place], [place], [place] and [facility] Rehab): EpicChat or page through [employer]. Emmett Sauer PA-C 07/24/24 3651 Physician Attestation I personally performed a face to face diagnostic evaluation on this patient on 07/24/24 I have repeated the ghosh portions of the history, review of systems,physical exam, reviewed relevant laboratory findings and imaging reports/films. I agree with the JENN findings and the plan . Patient indicates improved abdominal pain , NG in place. CT A/P done at outlying unavailable, being loaded into imaging per staff. Gensx consulted, pending eval . Discussed plan of care with patient. Adrienne Rodriguez MD documented in this encounter [facility] 07-24-2024 Nurse Note Patient arrived at [address] [facility]. The patient arrived with an NG tube at 64 cm and was hooked to suction at the previous facility. Reached out to the [employer] digital solution architect for suction orders and was advised to reach out to General Surgery for suction orders. I paged Dr. Pate who was digital solution architect for general surgery and told him about the consult and the need for suction orders and he told me that I can not call at 0400 and ask for orders for a new consult he doesn't even know. I told him I was advised to reach out to him for the suction order and he advised me to reach back out to the [employer] digital solution architect as he was not doing it. Sent another secure messaged to the [employer] digital solution architect. Waiting for orders. Will continue to monitor. [facility] 07-24-2024 Miscellaneous Notes Contract: bella Obrien calling for consult for small bowel obstruction. Room 607. Sent secure chat to Dr Pate. documented in this encounter [facility] 07-24-2024 Telephone encounter Note Contract: bella Obrien calling for consult for small bowel obstruction. Room 607. Sent secure chat to Dr Pate. [facility] 07-24-2024 Plan of care note Problem: Pain Goal: Patient goal is pain score less than 4, able to rest, and participant in treatment plan as appropriate Description: INTERVENTIONS: 1. Encourage patient or legal rental representative to report early pain and ask for pain medicine when needed 2. Assess pain using appropriate pain scale and include the scale used when documenting 3. Administer analgesics based on type and severity of pain and evaluate response within appropriate time frame 4. Implement non-pharmacological measures as appropriate and evaluate response 5. Consider cultural and social influences on pain and pain management 6. Notify LIP if interventions ineffective or patient reports new pain 7. Monitor vital signs including pulse ox, end-tidal CO2 based on pain intervention 8. Reassess pain per policy 9. Teach patient or legal rental representative interventions for comforting Outcome: Progressing Note: Evaluation of progress towards goal: Patient rates pain a 06/15. 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 Assess patient's risk for falls and implement fall prevention plan of care per policy 2. Provide and maintain a safe environment 3. Proper use of double Identifiers 4. Medication administration using the 5 rights 5. Hand hygiene 6. Specimens are labeled at the bedside 7. Instruct patient/ patient rental representative about use of safety devices 8. Include patient/ patient rental representative in decisions related to safety Outcome: Progressing Note: Evaluation of progress towards goal: Patient is independent, bed in low position, bed locked, call light within reach and patient educated on importance of calling for help to prevent falls Problem: Infection Goal: Absence of infection during hospitalization Description: Interventions: 1. Assess and monitor for signs and symptoms of infection 2. Monitor lab/diagnostic results 3. Monitor all insertion sites i.e., indwelling lines, tubes and drains 4. Monitor endotracheal (as able) and nasal secretions for changes in amount and color 5. Administer medications as ordered 6. Instruct and encourage patient and family to use good hand hygiene technique 7. Identify and instruct patient/patient rental representative in use of appropriate isolation precautions for identified infection/symptoms 8. Provide and discuss with patient/patient rental representative on educational MDRO sheet 9. Encourage and monitor nutritional status daily and consult model maker scale if indicated 10. Implement neutropenic guidelines as needed 11. Review exposure to history of communicable disease and recent travel history on admission 12. Encourage annual influenza vaccine 13. Encourage pneumonia vaccine Outcome: Progressing Note: Evaluation of progress towards goal: No signs or symptoms of infection at this time Problem: Discharge Planning Goal: Discharge to post-acute care, other facility, or home with appropriate resources Description: Patient's goal is: INTERVENTIONS 1. Conduct assessment to determine patient/family and health care team treatment goals, and need for post-acute services based on payer coverage, community resources, and patient preferences, and barriers to discharge 2. Coordinate with Social work, Care Navigation, and Utilization Review to arrange appropriate level of services according to patient's needs based on patient preference and payer coverage in collaboration with the physician and health care team 3. Address psychosocial, clinical, and financial barriers to discharge as identified in assessment in conjunction with the patient/family and health care team 4. Consult appropriate ancillary services (i.e.. PT/OT/ST, etc) as needed 5. Communicate with and update the patient/family, physician, and health care team regarding progress on the discharge plan 6. Identify discharge learning needs (meds, wound care, etc). 7. Arrange for needed discharge transportation as appropriate Outcome: Progressing Note: Evaluation of progress towards goal: Patient plans on being discharged home with his Problem: Low Risk Fall Score Description: [place]co Fall Score of 0 - 24 or indicated by [facility] Assessment Goal: Patient should be free from fall Description: Interventions: 1. [place] to environment 2. Hourly rounds addressing the 4 P's (Pain, Positioning, Possessions, Potty) 3. Clear area of hazards (spills, clutter, electrical cords, unnecessary equipment) 4. Place equipment (bed & TV controls, call light, phone, urinal) within reach 5. Encourage patient to wear glasses and hearing aides as appropriate 6. Maintain bed in lowest position 7. Lock wheels on bed/wheelchair 8. Provide adequate lighting, including night light 9. Assess need for additional bedding, food/fluids, pain med's prior to sleep/routinely 10. Provide gripper slippers or personal non-skid footwear 11. Teach patient and patient rental representative to maintain environment for safety and engage in all aspects of fall prevention program Outcome: Progressing Note: Evaluation of progress towards goal: Patient is independent from home, steady gait with good balance. Low risk for falls, but still educated on importance of calling out for help to prevent falls. [facility] [employer] 07-13-2024 History of Present illness Narrative Patient: Johnathan Correa : 1960 PCP: Luis Jeffrey MD SUBJECTIVE [...] History: Past Medical History: Diagnosis Date Diabetes ([facility]) Hypertension ([facility]) Medications: Current Outpatient Medications: amLODIPine (Norvasc) 5 [...] Partner Violence: Unknown (10/28/2023) Received from [facility] Safety & Environment Fear of Current or Ex-Partner: Not on file Emotionally Abused: Not on file Physically Abused: Not on file Sexually Abused: Not on file Physically or Sexually Abused: Not on file Housing Stability: Not on file ROS: General: denies fever, chills, fatigue, malaise GI: denies abdominal pain or ulcerations with anti-inflammatory medication Cardiovascular: denies CP, palpitations, irregular rhythms. Old history of [place] and cardiac stents OBJECTIVE LE EXAM: DERM: [...] cool tibia to toes b/l NEURO: 5.[address] monofilament test intact to digits and [...] underlying condition with diabetic polyneuropathy, unspecified whether intermission coordinator insulin use (CMS/HCC) 2. Foot ulcer, right, with fat layer exposed (CMS/HCC) 3. Foot ulcer, left, with fat layer exposed (CMS/HCC) PLAN Patient observe for any changes to his foot and if has any issues to contact Podiatry but otherwise he is leaving for 5 weeks to the [facility] and will contact Podiatry if [...] feet and discussed proper shoe gear. Gray Cancino DPM documented in this encounter [facility] 07-06-2024 History of Present illness Narrative Patient: Johnathan Correa : 1960 PCP: Luis Jeffrey MD SUBJECTIVE [...] the following treatments for the ulcer of [facility] every other day. Pt is a DM2. Allergies: Allergies Allergen Reactions Metformin Diarrhea and GI intolerance Other Reaction(s): Abdominal Pain, diarrhea, Stomach cramps Vancomycin Rash Past Medical History: Past Medical History: Diagnosis Date Diabetes ([facility]) Hypertension ([facility]) Medications: Current Outpatient Medications: amLODIPine (Norvasc) 5 [...] Partner Violence: Unknown (10/28/2023) Received from [facility] Safety & Environment Fear of Current or Ex-Partner: Not on file Emotionally Abused: Not on file Physically Abused: Not on file Sexually Abused: Not on file Physically or Sexually Abused: Not on file Housing Stability: Not on file ROS: General: denies fever, chills, fatigue, malaise GI: denies abdominal pain or ulcerations with anti-inflammatory medication Cardiovascular: denies CP, palpitations, irregular rhythms. Old history of [place] and cardiac stents OBJECTIVE LE EXAM: DERM: [...] cool tibia to toes b/l NEURO: 5.[address] monofilament test intact to digits and [...] underlying condition with diabetic polyneuropathy, unspecified whether intermission coordinator insulin use ([facility]) 2. Foot ulcer, right, with fat layer exposed ([facility]) PLAN Sharp debridement with 15 blade of subcutaneous ulceration to right and foot with active bleeding noted and removal and excision of fibrotic and necrotic tissue to wound and DSD applied with neosporin. [facility]. Today's procedure is a staged procedure and patient may need further procedures in the future. Gray Cancino DPM documented in this encounter [facility] 06-29-2024 History of Present illness Narrative Patient: Johnathan Correa : 1960 PCP: Luis Jeffrey MD SUBJECTIVE [...] History: Past Medical History: Diagnosis Date Diabetes ([facility]/HCC) Hypertension ([facility]) Medications: Current Outpatient Medications: amLODIPine (Norvasc) 5 [...] Partner Violence: Unknown (10/28/2023) Received from [facility] Safety & Environment Fear of Current [...] CP, palpitations, irregular rhythms. Old history of [place] and cardiac stents OBJECTIVE LE EXAM: DERM: [...] cool tibia to toes b/l NEURO: 5.[address] monofilament test intact to digits and forefoot bilaterally 125Hz tuning fork diminished to 1st MPJ bilaterally ORTHO: +5/5 DF/PF/IN/EV right, +5/5 DF/PF/IN/EV left. 20 degrees inversion and 10 degrees eversion STJ b/l. Ankle ROM less than 10 degrees b/l. Negative pain on palpation to right hallux ulcer and left foot ulcerations DUSTIN PVR: [place] report reviewed today with findings of mild PVD right-sided DUSTIN TBI of 0.85 0.91 and TBI of right side 0.91 and left 0.84. TBI are normal with DUSTIN suggest mild bilateral arterial occlusive disease ASSESSMENT Eight days postop right and left foot epidermal skin graft 2 ulcerations 1. Diabetes 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 polyneuropathy, unspecified whether jail insulin use (CMS/[facility]) 2. Foot ulcer, right, with fat layer exposed (CMS/HCC) PLAN Sharp debridement with 15 blade of subcutaneous ulceration to right and foot with active bleeding noted and removal and excision of fibrotic and necrotic tissue to wound and DSD applied with neosporin. Pt to continue with [facility] every other day. Today's procedure is a staged procedure and patient may need further procedures in the future. Gray Cancino DPM documented in this encounter [facility] 06-15-2024 History of Present illness Narrative Patient: Johnathan Correa : 1960 PCP: Luis Jeffrey MD SUBJECTIVE [...] History: Past Medical History: Diagnosis Date Diabetes ([facility]) Hypertension ([facility]) Medications: Current Outpatient Medications: amLODIPine (Norvasc) 5 [...] Partner Violence: Unknown (10/28/2023) Received from [facility] Safety & Environment Fear of Current or Ex-Partner: Not on file Emotionally Abused: Not on file Physically Abused: Not on file Sexually Abused: Not on file Physically or Sexually Abused: Not on file Housing Stability: Not on file ROS: General: denies fever, chills, fatigue, malaise GI: denies abdominal pain or ulcerations with anti-inflammatory medication Cardiovascular: denies CP, palpitations, irregular rhythms. Old history of [place] and cardiac stents OBJECTIVE LE EXAM: DERM: [...] cool tibia to toes b/l NEURO: 5.[address] monofilament test intact to digits and forefoot bilaterally 125Hz tuning fork diminished to 1st MPJ bilaterally ORTHO: +5/5 DF/PF/IN/EV right, +5/5 DF/PF/IN/EV left. 20 degrees inversion and 10 degrees eversion STJ b/l. Ankle ROM less than 10 degrees b/l. Negative pain on palpation to right hallux ulcer DUSTIN PVR: [place] report reviewed today with findings of mild PVD right-sided DUSTIN TBI of 0.85 0.91 and TBI of right side 0.91 and left 0.84. TBI are normal with DUSTIN suggest mild bilateral arterial occlusive disease ASSESSMENT 1. Diabetes 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 polyneuropathy, unspecified whether intermission coordinator insulin use ([facility]) 2. Foot ulcer, right, with fat layer exposed ([facility]) 3. Foot ulcer, left, with fat layer exposed ([facility]) 4. PVD (peripheral vascular disease) ([facility]) PLAN Decision for surgery today and patient [...] risks, alternatives, benefits, post op complications and jail expectations were discussed including but not limited to: infection,bone infection,wound dehiscence hardware failure and irritation,wound dehiscence,delay union/mal union/non union of bone. RSDS,neuroma,duty limitations,DVT/PE, [place],nerve damage, scar, loss of sensation, swelling. Pt [...] with an ASA of a 2. Gray Cancino DPM, FACFAS June 15, 2024 H&P up to date and current (date) Gray Cancino DPM documented in this encounter [facility] 06-08-2024 History of Present illness Narrative Patient: Johnathan Correa : 1960 PCP: Luis Jeffrey MD SUBJECTIVE [...] 2 diabetic with uncontrolled sugars Patient had DSUTIN PVRs at local hospital With notable mild PVD Patient also has issues to the right foot with ulceration to the medial aspect and place Betadine daily and denies redness or fevers vomiting chills Allergies: Allergies Allergen Reactions Metformin Diarrhea and GI intolerance Other Reaction(s): Abdominal Pain, diarrhea, Stomach cramps Vancomycin Rash Past Medical History: Past Medical History: Diagnosis Date Diabetes ([facility]/HCC) Hypertension ([facility]/HCC) Medications: Current Outpatient Medications: amLODIPine (Norvasc) 5 [...] Partner Violence: Unknown (10/28/2023) Received from [facility] Safety & Environment Fear of Current or Ex-Partner: Not on file Emotionally Abused: Not on file Physically Abused: Not on file Sexually Abused: Not on file Physically or Sexually Abused: Not on file Housing Stability: Not on file ROS: General: denies fever, chills, fatigue, malaise GI: denies abdominal pain or ulcerations with anti-inflammatory medication Cardiovascular: denies CP, palpitations, irregular rhythms. Old history of [place] and cardiac stents OBJECTIVE LE EXAM: DERM: [...] cool tibia to toes b/l NEURO: 5.[address] monofilament test intact to digits and forefoot bilaterally 125Hz tuning fork diminished to 1st MPJ bilaterally ORTHO: +5/5 DF/PF/IN/EV right, +5/5 DF/PF/IN/EV left. 20 degrees inversion and 10 degrees eversion STJ b/l. Ankle ROM less than 10 degrees b/l. Negative pain on palpation to right hallux ulcer DUSTIN PVR: [place] report reviewed today with findings of mild PVD right-sided DUSTIN TBI of 0.85 0.91 and TBI of right side 0.91 and left 0.84. TBI are normal with DUSTIN suggest mild bilateral arterial occlusive disease ASSESSMENT 1. Diabetes 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 polyneuropathy, unspecified whether jail insulin use ([facility]) 2. Foot ulcer, right, with fat layer exposed ([facility]) 3. Foot ulcer, left, with fat layer exposed ([facility]) PLAN Patient education on condition and treatment of condition. Continues urea cream daily to the right heel fissure and dry skin to feet bilaterally. Reviewed DUSTIN PVRs from [facility] with findings of mild PVD and [...] 1 week for most likely preop Gray Cancino DPM documented in this encounter [facility] 06-01-2024 History of Present illness Narrative Patient: Johnathan Correa : 1960 PCP: Luis Jeffrey MD SUBJECTIVE This is a 63 y.o. male that presents today for a chief complaint of ulceration of the right great toe which he has been applying Amerigel to. Patient states ulceration present for the past 6 weeks . Denies nausea vomiting chills . Pt also presents today with secondary complaints of dry scaly skin to feet. Pt states that they have been using urea cream and states some improvement and relief.. Patient is type 2 diabetic with uncontrolled sugars Patient had DUSTIN PVRs at local hospital With notable mild PVD Allergies: Allergies Allergen Reactions Metformin Diarrhea and GI intolerance Other Reaction(s): Abdominal Pain, diarrhea, Stomach cramps Vancomycin Rash Past Medical History: Past Medical History: Diagnosis Date Diabetes ([facility]) Hypertension ([facility]) Medications: Current Outpatient Medications: amLODIPine (Norvasc) 5 [...] MG DR capsule, .COMPLEX, Disp: , Rfl: urea (Carmol) 40 % cream, Apply 1 application topically in the morning and 1 application before bedtime., Disp: 85 g, Rfl: 1 Social History: Social History Socioeconomic History Marital [...] Partner Violence: Unknown (10/28/2023) Received from [facility] Safety & Environment Fear of Current or Ex-Partner: Not on file Emotionally Abused: Not on file Physically Abused: Not on file Sexually Abused: Not on file Physically or Sexually Abused: Not on file Housing Stability: Not on file ROS: General: denies fever, chills, fatigue, malaise GI: denies abdominal pain or ulcerations with anti-inflammatory medication Cardiovascular: denies CP, palpitations, irregular rhythms. Old history of [place] and cardiac stents OBJECTIVE LE EXAM: DERM: negative hair growth to b/l feet with thin skin noted Ulceration present to the plantar aspect of the right great toe that measures 0.5 cm x 0.3 cm x 0.2 cm subcutaneous thickness depth with negative erythema negative probe to bone and positive fibrous slough with slight serous drainage Left medial foot has area of excoriation with negative drainage and negative erythema Plantar right left heel has area of slightly diminished hyperkeratotic tissue with deep fissures with negative drainage and positive dry and scaly skin noted to bilateral feet VASC: Non Palpable pedal pulsed b/l with warm to cool tibia to toes b/l NEURO: 5.[address] monofilament test intact to digits and forefoot bilaterally 125Hz tuning fork diminished to 1st MPJ bilaterally ORTHO: +5/5 DF/PF/IN/EV right, +5/5 DF/PF/IN/EV left. 20 degrees inversion and 10 degrees eversion STJ b/l. Ankle ROM less than 10 degrees b/l. Negative pain on palpation to right hallux ulcer DUSTIN PVR: [place] report reviewed today with findings of mild PVD right-sided DUSTIN TBI of 0.850.91 and TBI of right side 0.91 and left 0.84. TBI are normal with DUSTIN suggest mild bilateral arterial occlusive disease ASSESSMENT 1. Diabetes 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 polyneuropathy, unspecified whether jail insulin use ([facility]) 2. Foot ulcer, right, with fat layer exposed ([facility]) 3. PVD (peripheral vascular disease) ([facility]) 4. Xerosis cutis PLAN Patient education on condition and treatment of condition. Continues urea cream daily to the right heel fissure and dry skin to feet bilaterally. Reviewed DUSTIN PVRs from [facility] with findings of mild PVD and most likely no intervention at this time Sharp debridement with 15 blade of subcutaneous ulceration to right foot with active bleeding noted and removal and excision of fibrotic and necrotic tissue to wound and DSD applied with neosporin. Pt to continue with Amerigel daily rGay Cancino DPM documented in this encounter [facility] 05-25-2024 History of Present illness Narrative Patient: Johnathan Valentino Sunny : 1960 PCP: Luis Jeffrey MD SUBJECTIVE This is a 63 y.o. male that presents today for a chief complaint of ulceration of the right great toe which he has been applying Amerigel to. Patient states ulceration present for the past 5 weeks . Denies nausea vomiting chills . Pt also presents today with secondary complaints of dry scaly skin to feet. Pt states that they have been using urea cream and states some improvement and relief.. Patient is type 2 diabetic with uncontrolled sugars Patient had DUSTIN PVRs at local hospital With notable mild PVD Allergies: Allergies Allergen Reactions Metformin Diarrhea and GI intolerance Other Reaction(s): Abdominal Pain, diarrhea, Stomach cramps Vancomycin Rash Past Medical History: Past Medical History: Diagnosis Date Diabetes ([facility]) Hypertension ([facility]) Medications: Current Outpatient Medications: amLODIPine (Norvasc) 5 [...] MG DR capsule, .COMPLEX, Disp: , Rfl: urea (Carmol) 40 % cream, Apply 1 application topically in the morning and 1 application before bedtime., Disp: 85 g, Rfl: 1 Social History: Social History Socioeconomic History Marital status: Spouse name: Not on file Number of children: Not on file Years of education: Not on file Highest education level: Not on file Occupational History Not on file Tobacco Use Smoking status: Former Current packs/day: 1.00 Average packs/day: 1 pack/day for 20.0 years (20.0 ttl pk-yrs) Types: Cigarettes Start date: 05/04/2004 [...] Partner Violence: Unknown (10/28/2023) Received from [facility] Safety & Environment Fear of Current or Ex-Partner: Not on file Emotionally Abused: Not on file Physically Abused: Not on file Sexually Abused: Not on file Physically or Sexually Abused: Not on file Housing Stability: Not on file ROS: General: denies fever, chills, fatigue, malaise GI: denies abdominal pain or ulcerations with anti-inflammatory medication Cardiovascular: denies CP, palpitations, irregular rhythms. Old history of [place] and cardiac stents OBJECTIVE LE EXAM: DERM: negative hair growth to b/l feet with thin skin noted Ulceration present to the plantar aspect of the right great toe that measures 0.5 cm x 0.8 cm x 0.2 cm subcutaneous thickness depth with negative erythema negative probe to bone and positive fibrous slough with slight serous drainage Left medial foot has area of excoriation with negative drainage and negative erythema Plantar right left heel has area of slightly diminished hyperkeratotic tissue with deep fissures with negative drainage and positive dry and scaly skin noted to bilateral feet VASC: Non Palpable pedal pulsed b/l with warm to cool tibia to toes b/l NEURO: 5.[address] monofilament test intact to digits and forefoot bilaterally 125Hz tuning fork diminished to 1st MPJ bilaterally ORTHO: +5/5 DF/PF/IN/EV right, +5/5 DF/PF/IN/EV left. 20 degrees inversion and 10 degrees eversion STJ b/l. Ankle ROM less than 10 degrees b/l. Negative pain on palpation to right hallux ulcer DUSTIN PVR: [place] report reviewed today with findings of mild PVD right-sided DUSTIN TBI of 0.850.91 and TBI of right side 0.91 and left 0.84. TBI are normal with DUSTIN suggest mild bilateral arterial occlusive disease ASSESSMENT 1. Diabetes 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 polyneuropathy, unspecified whether jail insulin use ([facility]) 2. Foot ulcer, right, with fat layer exposed ([facility]) 3. PVD (peripheral vascular disease) ([facility]) PLAN Patient education on condition and treatment of condition. Continues urea cream daily to the right heel fissure and dry skin to feet bilaterally. Reviewed DUSTIN PVRs from [facility] with findings of mild PVD and most likely no intervention at this time Sharp debridement with 15 blade of subcutaneous ulceration to right foot with active bleeding noted and removal and excision of fibrotic and necrotic tissue to wound and DSD applied with neosporin. Pt to continue with Medihoney daily Gray Cancino DPM documented in this encounter [facility] 05-18-2024 History of Present illness Narrative Patient: Johnathan Correa : 1960 PCP: Luis Jeffrey MD SUBJECTIVE This is a 63 y.o. male that presents today for a chief complaint of ulceration of the right great toe which he has been applying Amerigel to. Patient states ulceration present for the past 4 weeks . Denies nausea vomiting chills . Pt also presents today with secondary complaints of dry scaly skin to feet. Pt states that they have been using urea cream and states some improvement and relief.. Patient is type 2 diabetic with uncontrolled sugars Patient had DUSTIN PVRs at local hospital Allergies: Allergies Allergen Reactions Metformin Diarrhea and GI intolerance Other Reaction(s): Abdominal Pain, diarrhea, Stomach cramps Vancomycin Rash Past Medical History: Past Medical History: Diagnosis Date Diabetes ([facility]) Hypertension ([facility]) Medications: Current Outpatient Medications: amLODIPine (Norvasc) 5 [...] MG DR capsule, .COMPLEX, Disp: , Rfl: urea (Carmol) 40 % cream, Apply 1 application topically in the morning and 1 application before bedtime., Disp: 85 g, Rfl: 1 Social History: Social History Socioeconomic History Marital status: Spouse name: Not on file Number of children: Not on file Years of education: Not on file Highest education level: Not on file Occupational History Not on file Tobacco Use Smoking status: Former Current packs/day: 1.00 Average packs/day: 1 pack/day for 20.0 years (20.0 ttl pk-yrs) Types: Cigarettes Start date: 05/04/2004 [...] Partner Violence: Unknown (10/28/2023) Received from [facility] Safety & Environment Fear of Current or Ex-Partner: Not on file Emotionally Abused: Not on file Physically Abused: Not on file Sexually Abused: Not on file Physically or Sexually Abused: Not on file Housing Stability: Not on file ROS: General: denies fever, chills, fatigue, malaise GI: denies abdominal pain or ulcerations with anti-inflammatory medication Cardiovascular: denies CP, palpitations, irregular rhythms. Old history of [place] and cardiac stents OBJECTIVE LE EXAM: DERM: negative hair growth to b/l feet with thin skin noted Ulceration present to the plantar aspect of the right great toe that measures 0.8 cm x 0.8 cm x 0.2 cm subcutaneous thickness depth with negative erythema negative probe to bone and positive fibrous slough with slight serous drainage Left medial foot has area of excoriation with negative drainage and negative erythema Plantar right left heel has area of slightly diminished hyperkeratotic tissue with deep fissures with negative drainage and positive dry and scaly skin noted to bilateral feet VASC: Non Palpable pedal pulsed b/l with warm to cool tibia to toes b/l NEURO: 5[address] monofilament test intact to digits and forefoot bilaterally 125Hz tuning fork diminished to 1st MPJ bilaterally ORTHO: +5/5 DF/PF/IN/EV right, +5/5 DF/PF/IN/EV left. 20 degrees inversion and 10 degrees eversion STJ b/l. Ankle ROM less than 10 degrees b/l. Negative pain on palpation to right hallux ulcer DUSTIN PVR: [place] report reviewed today with findings of mild PVD right-sided DUSTIN TBI of 0.850.91 and TBI of right side 0.91 and left 0.84. TBI are normal with DUSTIN suggest mild bilateral arterial occlusive disease ASSESSMENT 1. Xerosis cutis 2. Skin fissure 3. Diabetes 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 polyneuropathy, unspecified whether intermission coordinator insulin use ([facility]) 4. Foot ulcer, right, with fat layer exposed ([facility]) 5. PVD (peripheral vascular disease) ([facility]) PLAN Patient education on condition and treatment of condition. Continues urea cream daily to the right heel fissure and dry skin to feet bilaterally. Reviewed DUSTIN PVRs from [facility] with findings of mild PVD and most likely no intervention at this time Sharp debridement with 15 blade of subcutaneous ulceration to right foot with active bleeding noted and removal and excision of fibrotic and necrotic tissue to wound and DSD applied with neosporin. Pt to continue with Medihoney daily Gray Cancino DPM documented in this encounter [facility] 05-11-2024 History of Present illness Narrative Patient: Johnathan Correa : 1960 PCP: Luis Jeffrey MD SUBJECTIVE This is a 63 y.o. male that presents today for a chief complaint of ulceration of the right great toe which he has been applying Amerigel to. Patient states ulceration present for the past 3 weeks and comes in with non-covered toe. Denies nausea vomiting chills and states he also Pt also presents today with secondary complaints of dry scaly skin to feet. Pt states that they have not been using OTC creams and lotions with minimal relief.. Patient is type 2 diabetic with uncontrolled sugars Patient awaits DUSTIN PVRs at local hospital Allergies: Allergies Allergen Reactions Metformin Diarrhea and GI intolerance Other Reaction(s): Abdominal Pain, diarrhea, Stomach cramps Vancomycin Rash Past Medical History: Past Medical History: Diagnosis Date Diabetes ([facility]) Hypertension ([facility]) Medications: Current Outpatient Medications: amLODIPine (Norvasc) 5 [...] MG DR capsule, .COMPLEX, Disp: , Rfl: urea (Carmol) 40 % cream, Apply 1 application topically in the morning and 1 application before bedtime., Disp: 85 g, Rfl: 1 Social History: Social History Socioeconomic History Marital status: Spouse name: Not on file Number of children: Not on file Years of education: Not on file Highest education level: Not on file Occupational History Not on file Tobacco Use Smoking status: Former Current packs/day: 1.00 Average packs/day: 1 pack/day for 20.0 years (20.0 ttl pk-yrs) Types: Cigarettes Start date: 05/04/2004 [...] Partner Violence: Unknown (10/28/2023) Received from [facility] Safety & Environment Fear of Current or Ex-Partner: Not on file Emotionally Abused: Not on file Physically Abused: Not on file Sexually Abused: Not on file Physically or Sexually Abused: Not on file Housing Stability: Not on file ROS: General: denies fever, chills, fatigue, malaise Gastrointestinal: denies abdominal pain, ulcers, or changes in appetite or bowel habits Musculoskeletal: Generalized arthritis, denies loss of strength, pain to hip, knees, back Cardiovascular: denies CP, palpitations, irregular rhythms. Old history of [place] and cardiac stents OBJECTIVE LE EXAM: DERM: negative hair growth to b/l feet with thin skin noted Ulceration present to the plantar aspect of the right great toe that measures 0.8 cm x 0.8 cm x 0.2 cm subcutaneous thickness depth with negative erythema negative probe to bone and positive fibrous slough with slight serous drainage Left medial foot has area of excoriation with negative drainage and negative erythema Plantar right left heel has area of hyperkeratotic tissue with deep fissures with negative drainage and positive dry and scaly skin noted to bilateral feet VASC: Non Palpable pedal pulsed b/l with warm to cool tibia to toes b/l NEURO: 5.[address] monofilament test intact to digits and forefoot bilaterally 125Hz tuning fork diminished to 1st MPJ bilaterally ORTHO: +5/5 DF/PF/IN/EV right, +5/5 DF/PF/IN/EV left. 20 degrees inversion and 10 degrees eversion STJ b/l. Ankle ROM less than 10 degrees b/l. Negative pain on palpation to right hallux ulcer DUSTIN PVR: ASSESSMENT 1. Xerosis cutis 2. Skin fissure 3. PVD (peripheral vascular disease) ([facility]) 4. Diabetes 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 polyneuropathy, unspecified whether jail insulin use ([facility]) 5. Foot ulcer, right, with fat layer exposed ([facility]) PLAN Patient education on condition and treatment of condition. Continues urea cream daily to the right heel fissure and dry skin to feet bilaterally. Pharmacy was unable to get the medication therefore recommend zsnn-ena-oadsyug cream today to apply twice daily Patient awaits DUSTIN PVRs from [facility] Sharp debridement with 15 blade of subcutaneous ulceration to right foot with active bleeding noted and removal and excision of fibrotic and necrotic tissue to wound and DSD applied with neosporin. Pt to continue with Amerigel daily Gray Cancino DPM documented in this encounter [facility] 05-04-2024 History of Present illness Narrative Patient: Johnathan Valentino Sunny : 1960 PCP: Luis Jeffrey MD SUBJECTIVE This is a 63 y.o. male that presents today for a chief complaint of ulceration of the right great toe which he has been applying Amerigel to. Patient states ulceration present for the past 3 weeks and comes in with non-covered toe. Denies nausea vomiting chills and states he also has area of excoriation to the right foot with negative drainage. Pt also presents today with secondary complaints of dry scaly skin to feet. Pt states that they have not been using OTC creams and lotions with minimal relief.. Patient is type 2 diabetic with uncontrolled sugars Allergies: Allergies Allergen Reactions Metformin Diarrhea and GI intolerance Other Reaction(s): Abdominal Pain, diarrhea, Stomach cramps Vancomycin Rash Past Medical History: Past Medical History: Diagnosis Date Diabetes ([facility]) Hypertension ([facility]) Medications: Current Outpatient Medications: amLODIPine (Norvasc) 5 [...] MG DR capsule, .COMPLEX, Disp: , Rfl: urea (Carmol) 40 % cream, Apply 1 application topically in the morning and 1 application before bedtime., Disp: 85 g, Rfl: 1 Social History: Social History Socioeconomic History Marital status: Spouse name: Not on file Number of children: Not on file Years of education: Not on file Highest education level: Not on file Occupational History Not on file Tobacco Use Smoking status: Former Current packs/day: 1.00 Average packs/day: 1 pack/day for 20.0 years (20.0 ttl pk-yrs) Types: Cigarettes Start date: 05/04/2004 [...] Partner Violence: Unknown (10/28/2023) Received from [facility] Safety & Environment Fear of Current or Ex-Partner: Not on file Emotionally Abused: Not on file Physically Abused: Not on file Sexually Abused: Not on file Physically or Sexually Abused: Not on file Housing Stability: Not on file ROS: General: denies fever, chills, fatigue, malaise Gastrointestinal: denies abdominal pain, ulcers, or changes in appetite or bowel habits Musculoskeletal: Generalized arthritis, denies loss of strength, pain to hip, knees, back Cardiovascular: denies CP, palpitations, irregular rhythms. Old history of [place] and cardiac stents OBJECTIVE LE EXAM: DERM: P negative hair growth to b/l feet with thin skin noted Ulceration present to the plantar aspect of the right great toe that measures 1 cm x 1 cm x 0.3 cm subcutaneous thickness depth with negative erythema negative probe to bone and positive fibrous slough with slight serous drainage Left medial foot has area of excoriation with negative drainage and negative erythema Plantar right left heel has area of hyperkeratotic tissue with deep fissures with negative drainage and dry and scaly skin noted to bilateral feet VASC: Non Palpable pedal pulsed b/l with warm to cool tibia to toes b/l NEURO: 5.[address] monofilament test intact to digits and forefoot bilaterally 125Hz tuning fork diminished to 1st MPJ bilaterally ORTHO: +5/5 DF/PF/IN/EV right, +5/5 DF/PF/IN/EV left. 20 degrees inversion and 10 degrees eversion STJ b/l. Ankle ROM less than 10 degrees b/l. Negative pain on palpation to right hallux ulcer ASSESSMENT 1. Foot ulcer, right, with fat layer exposed ([facility]) 2. Xerosis cutis 3. Skin fissure 4. Diabetes 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 polyneuropathy, unspecified whether jail insulin use ([facility]) 5. PVD (peripheral vascular disease) ([facility]) PLAN Patient education on condition and treatment of condition. Discussed application of hydrating cream to feet twice daily and to not place between toes and to apply prior to bed in evenings and to observe for any redness to feet or red streaks or drainage to feet. Patient to consider kwfh-hdq-jptnphx treatments for medication or use of urea cream and prescription today was offered for Lac-Hydrin cream. Patient has prescription for urea 40 percent cream to apply twice daily and discuss different shoe gear choices that may help Patient educated today on proper diabetic foot care including monitoring feet daily for any signs of infection openings in the skin or irregularities to both feet. Patient had a diabetic neurological exam today to both their feet and discussed proper shoe gear. Sharp debridement with 15 blade of subcutaneous ulceration to right foot with active bleeding noted and removal and excision of fibrotic and necrotic tissue to wound and DSD applied with neosporin. Pt to continue with Amerigel daily Patient may applied to left foot excoriation Betadine daily DUSTIN PVRs ordered at [facility] Gray Cancino DPM documented in this encounter [facility] 03-08-2024 Hospital Discharge instructions Patient Education 03/08/2024 [...] therapy. Follow these instructions at home: Take hmye-bev-ovfnhco and prescription medicines only as told by [...] provider. Document Revised: 04/24/2021 Document Reviewed: 04/24/2021 [employer] Patient Education 2022 [employer]. Follow Up Care 09/15/2023 08:45:51 With:Carlos LIZAMA, SHAYY Hernandes, URO Address: [address] [place] [address] [phone] When: Unknown [facility] [place] 03-08-2024 Note Patient Education Urology Hypogonadism, Male [...] Follow these instructions at home: ? Take grai-lvu-gytwwwo and prescription medicines only as told by [...] provider. Document Revised: (more content not included)... [facility] 09-15-2023 Hospital Discharge instructions Patient Education [...] Follow these instructions at home: Medicines Take nnsw-hyk-ziaedka and prescription medicines only as told by [...] provider. Document Revised: 11/19/2021 Document Reviewed: 11/19/2021 [employer] Patient Education 2022 [employer]. Follow Up Care 06/09/2023 08:31:20 With:Carlos LIZAMA, ABRAN HernandesL, URO Address: [address], [facility] [place] [address] [phone] When: Unknown Comments:3 mos w/ PSA, T level, and HCT [facility] 08-06-2023 Evaluation note Encounter Date Diagnosis Assessment [...] to encourage exercise and elevate legs prn [employer] Other 07-12-2023 Evaluation note* Encounter Date Diagnosis Assessment Notes Treatment Notes Treatment Clinical Notes Mar, Abdominal pain (ICD-10 - R10.9) [facility] 06-28-2023 Hospital Discharge instructions Follow Up Care 03/03/2023 10:42:41 With:Carlos LIZAMA, SHAYY Hernandes, URO Address: [address] [place] [address] When:Within 2 Week(s) Comments:Will return in 2wks for next injection.Will see Dr Gonzalez end may with PSA T & HCT & HGB. [facility] 06-28-2023 Hospital Discharge instructions Patient Education 03/03/2023 [...] Follow these instructions at home: Medicines Take byul-ukm-rmdwgjo and prescription medicines only as told by [...] provider. Document Revised: 11/19/2021 Document Reviewed: 11/19/2021 [employer] Patient Education 2022 [employer]. Follow Up Care 11/25/2022 10:57:18 With:Carlos LIZAMA, Lety Scott [employer]alaika, URO Address: When: Unknown [facility] 04-05-2023 Evaluation note* Encounter Date Diagnosis Assessment Notes Treatment Notes Treatment Clinical Notes Dec, Essential (primary) hypertension (ICD-10 - I10) chronic problem - has followup w cardio in January. Dec, Type 2 diabetes mellitus with hyperglycemia, without long-term current use of insulin (ICD-10 - E11.65) states average glucose is 150-180. will add actose and check cost. [employer] Other 03-22-2023 Hospital Discharge instructions Patient Education [...] 11/29/2001 Document Revised: 12/14/2019 Document Reviewed: 07/19/2017 [employer] Patient Education 2019 [employer]. Follow Up Care 10/13/2022 08:47:51 With:Carlos LIZAMA, SHAYY Hernandes, URO Address: When: Unknown [facility] 01-04-2023 Hospital Discharge instructions Patient Education 09/09/2022 [...] Follow these instructions at home: Medicines Take hjse-civ-rxsvrbf and prescription medicines only as told by [...] 08/20/2001 Document Revised: 08/05/2018 Document Reviewed: 09/08/2017 [employer] Patient Education 2020 [employer]. [facility] [place] 12-14-2022 Hospital Discharge instructions Patient Education 08/19/2022 [...] Follow these instructions at home: Medicines Take honp-klv-tgewcdc and prescription medicines only as told by [...] 08/20/2001 Document Revised: 08/05/2018 Document Reviewed: 09/08/2017 [employer] Patient Education To[employer]to. Follow Up Care 08/10/2022 15:26:30 With:Lety Gonzalez MD, URL, URO Address: When:3 months Comments:W/ PSA/testosterone/ & hemaglobin [facility] 09-21-2022 Hospital Discharge instructions Follow Up Care 05/27/2022 09:36:06 With:Lety Gonzalez MD, URL, URO Address: When: Unknown [facility] chiwy complaint+Reason for visit Narrative* Chief Complaint follow up Referred by Dr. Jeffrey for PVD Referral Dr. Jeffrey / no meter Reason for Visit Claudication Fatigue Hypertension Type II diabetes mellitus Bilateral lower extremity edema Hemosiderin pigmentation of lower extremity due to varicose veins Obesity Symptomatic varicose veins of both lower extremities Wound of foot [facility] Work Phone: Chiie complaint+Reason for visit Narrative* Chief Complaint Referred [...] veins Hypertension Obesity Type II diabetes mellitus [facility] Work Phone: Evaluation + Plan note Future Appointments Appointment Date:01/06/2022 08:00:00 AM Scheduled Provider: Location:[facility] Appointment Type:URO Nurse Visit Appointment Date:05/12/2022 08:45:00 AM Scheduled Provider:Venkat Procotr Jr., MD Location:[facility] Appointment Type:URO Office Visit [facility] evaluation + Plan note Future Appointments Appointment Date:02/03/2022 08:30:00 AM Scheduled Provider: Location:[facility] Appointment Type:URO Nurse Visit Appointment Date:05/12/2022 08:45:00 AM Scheduled Provider:Venkat Proctor Jr., MD Location:[facility] Appointment Type:URO Office Visit [facility] evaluation + Plan note Future Appointments Appointment Date:03/03/2022 08:00:00 AM Scheduled Provider: Location:[facility] Appointment Type:URO Nurse Visit Appointment Date:05/12/2022 08:45:00 AM Scheduled Provider:Venkat Proctor Jr., MD Location:[facility] Appointment Type:URO Office Visit [facility] evaluation + Plan note Future Appointments Appointment Date:03/31/2022 08:00:00 AM Scheduled Provider: Location:[facility] Appointment Type:URO Nurse Visit Appointment Date:04/28/2022 08:00:00 AM Scheduled Provider: Location:[facility] Appointment Type:URO Nurse Visit Appointment Date:05/26/2022 08:15:00 AM Scheduled Provider:Venkat Proctor Jr., MD Location:[facility] Appointment Type:URO Office Visit [facility] evaluation + Plan note Future Appointments Appointment Date:04/28/2022 08:00:00 AM Scheduled Provider: Location:[facility] Appointment Type:URO Nurse Visit Appointment Date:05/26/2022 08:15:00 AM Scheduled Provider:Venkat Proctor Jr., MD Location:[facility] Appointment Type:URO Office Visit [facility] evaluation + Plan note Future Appointments Appointment Date:06/24/2022 08:00:00 AM Scheduled Provider: Location:[facility] Appointment Type:URO Nurse Visit Appointment Date:07/29/2022 08:00:00 AM Scheduled Provider:Lety Gonzalez MD Location:[facility] Appointment Type:URO Office Visit [facility] evaluation + Plan note Future Appointments Appointment Date:07/22/2022 08:00:00 AM Scheduled Provider: Location:[facility] Appointment Type:URO Nurse Visit Appointment Date:08/05/2022 08:00:00 AM Scheduled Provider:Lety Gonzalez MD Location:[facility] Appointment Type:URO Office Visit [facility] evaluation + Plan note Future Appointments Appointment Date:09/02/2022 08:30:00 AM Scheduled Provider: Location:[facility] Appointment Type:URO Nurse Visit Diagnostic Tests Pending * PSA Total 08/19/22 * Testosterone Level Total 08/19/22 [facility] evaluation + Plan note Future Appointments Appointment Date:09/16/2022 08:15:00 AM Scheduled Provider: Location:[facility] [place] Appointment Type:URO Nurse Visit [facility] evaluation + Plan note Future Appointments Appointment Date:09/30/2022 08:00:00 AM Scheduled Provider: Location:[facility] [place] Appointment Type:URO Nurse Visit [facility] [facility] evaluation + Plan note Future Appointments Appointment Date:10/13/2022 08:30:00 AM Scheduled Provider: Location:[facility] [place] Appointment Type:URO Nurse Visit Appointment Date:10/28/2022 08:00:00 AM Scheduled Provider: Location:[facility] [place] Appointment Type:URO Nurse Visit [facility] evaluation + Plan note Future Appointments Appointment Date:10/28/2022 08:00:00 AM Scheduled Provider: Location:[facility] [place] Appointment Type:URO Nurse Visit Appointment Date:11/11/2022 08:00:00 AM Scheduled Provider: Location:[facility] [place] Appointment Type:URO Nurse Visit Appointment Date:11/25/2022 10:15:00 AM Scheduled Provider:Lety Gonzalez MD Location:[facility] Appointment Type:URO Office Visit [facility] evaluation + Plan note Future Appointments Appointment Date:11/11/2022 08:00:00 AM Scheduled Provider: Location:[facility] [place] Appointment Type:URO Nurse Visit Appointment Date:11/25/2022 10:15:00 AM Scheduled Provider:Lety Gonzalez MD Location:[facility] Appointment Type:URO Office Visit [facility] evaluation + Plan note Future Appointments Appointment Date:11/18/2022 08:00:00 AM Scheduled Provider: Location:[facility] [place] Appointment Type:URO Nurse Visit Appointment Date:11/25/2022 10:15:00 AM Scheduled Provider:Lety Gonzalez MD Location:[facility] Appointment Type:URO Office Visit Diagnostic Tests Pending * CBC w/ Auto Diff 11/11/22 * Testosterone Level Total 11/11/22 [facility] evaluation + Plan note Future Appointments Appointment Date:11/25/2022 10:15:00 AM Scheduled Provider:Lety Gonzalez MD Location:[facility] Appointment Type:URO Office Visit [facility] evaluation + Plan note Future Appointments Appointment Date:11/25/2022 10:15:00 AM Scheduled Provider:Lety Gonzalez MD Location:[facility] Appointment Type:URO Office Visit Diagnostic Tests Pending * [facility] Appointment Date:12/09/2022 08:00:00 AM Scheduled Provider: Location:[facility] Appointment Type:URO Nurse Visit Appointment Date:03/03/2023 09:45:00 AM Scheduled Provider:Lety Gonzalez MD Location:[facility] Appointment Type:URO Office Visit Diagnostic Tests Pending * Testosterone Level Total 11/25/22 * PSA Total 11/25/22 * Hemoglobin 11/25/22 [facility] evaluation + Plan note Future Appointments Appointment Date:12/23/2022 08:00:00 AM Scheduled Provider: Location:[facility] Appointment Type:URO Nurse Visit Appointment Date:03/03/2023 09:45:00 AM Scheduled Provider:Lety Gonzalez MD Location:[facility] Appointment Type:URO Office Visit [facility] evaluation + Plan note Future Appointments Appointment Date:01/06/2023 08:00:00 AM Scheduled Provider: Location:[facility] Appointment Type:URO Nurse Visit Appointment Date:03/03/2023 09:45:00 AM Scheduled Provider:Lety Gonzalez MD Location:[facility] Appointment Type:URO Office Visit [facility] evaluation + Plan note Future Appointments Appointment Date:01/19/2023 08:30:00 AM Scheduled Provider: Location:[facility] Appointment Type:URO Nurse Visit Appointment Date:03/03/2023 09:45:00 AM Scheduled Provider:Lety Gonzalez MD Location:[facility] Appointment Type:URO Office Visit [facility] evaluation + Plan note Future Appointments Appointment Date:02/17/2023 08:00:00 AM Scheduled Provider: Location:[facility] Appointment Type:URO Nurse Visit Appointment Date:03/03/2023 09:45:00 AM Scheduled Provider:Lety Gonzalez MD Location:[facility] Appointment Type:URO Office Visit [facility] evaluation + Plan note Future Appointments Appointment Date:02/24/2023 08:00:00 AM Scheduled Provider: Location:[facility] Appointment Type:URO Nurse Visit Appointment Date:03/03/2023 09:45:00 AM Scheduled Provider:Lety Gonzalez MD Location:[facility] Appointment Type:URO Office Visit [facility] evaluation + Plan note Future Appointments Appointment Date:03/03/2023 09:45:00 AM Scheduled Provider:Lety Gonzalez MD Location:[facility] Appointment Type:URO Office Visit [facility] evaluation + Plan note Future Appointments Appointment Date:03/03/2023 09:45:00 AM Scheduled Provider:Lety Gonzalez MD Location:[facility] Appointment Type:URO Office Visit Diagnostic Tests Pending * Testosterone [facility] Appointment Date:03/17/2023 08:00:00 AM Scheduled Provider: Location:[facility] Appointment Type:URO Nurse Visit Appointment Date:06/09/2023 08:45:00 AM Scheduled Provider:Lety Gonzalez MD Location[facility] Appointment Type:URO Office Visit Diagnostic Tests Pending * PSA Free & Total 03/03/23 [facility] evaluation + Plan note Future Appointments Appointment Date:03/31/2023 08:00:00 AM Scheduled Provider: Location:[facility] Appointment Type:URO Nurse Visit Appointment Date:06/09/2023 08:45:00 AM Scheduled Provider:Lety Gonzalez MD Location:[facility] Appointment Type:URO Office Visit [facility] evaluation + Plan note Future Appointments Appointment Date:04/14/2023 08:00:00 AM Scheduled Provider: Location:[facility] Appointment Type:URO Nurse Visit Appointment Date:06/09/2023 08:45:00 AM Scheduled Provider:Lety Gonzalez MD Location:[facility] Appointment Type:URO Office Visit [facility] evaluation + Plan note Future Appointments Appointment Date:04/28/2023 08:30:00 AM Scheduled Provider: Location:[facility] Appointment Type:URO Nurse Visit Appointment Date:05/12/2023 08:00:00 AM Scheduled Provider: Location:[facility] Appointment Type:URO Nurse Visit Appointment Date:05/26/2023 08:00:00 AM Scheduled Provider: Location:[facility] Appointment Type:URO Nurse Visit Appointment Date:06/09/2023 08:45:00 AM Scheduled Provider:Lety Gonzalez MD Location:[facility] Appointment Type:URO Office Visit [facility] evaluation + Plan note Future Appointments Appointment Date:05/12/2023 08:00:00 AM Scheduled Provider: Location:[facility] Appointment Type:URO Nurse Visit Appointment Date:05/26/2023 08:00:00 AM Scheduled Provider: Location:[facility] Appointment Type:URO Nurse Visit Appointment Date:06/09/2023 08:45:00 AM Scheduled Provider:Lety Gonzalez MD Location:[facility] Appointment Type:URO Office Visit Diagnostic Tests Pending * Hemoglobin and Hematocrit 04/28/23 * PSA Free & Total 04/28/23 * Testosterone Level Total 04/28/23 [facility] evaluation + Plan note Future Appointments Appointment Date:05/26/2023 08:00:00 AM Scheduled Provider: Location:[facility] Appointment Type:URO Nurse Visit Appointment Date:06/02/2023 08:00:00 AM Scheduled Provider: Location:[facility] Appointment Type:URO Nurse Visit Appointment Date:06/09/2023 08:45:00 AM Scheduled Provider:Lety Gonzalez MD Location:[facility] Appointment Type:URO Office Visit [facility] evaluation + Plan note Future Appointments Appointment Date:06/02/2023 08:00:00 AM Scheduled Provider: Location:[facility] Appointment Type:URO Nurse Visit Appointment Date:06/09/2023 08:45:00 AM Scheduled Provider:Lety Gonzalez MD Location[facility] Appointment Type:URO Office Visit [facility] evaluation + Plan note Future Appointments Appointment Date:07/07/2023 08:00:00 AM Scheduled Provider: Location:[facility] [place] Appointment Type:URO Nurse Visit Appointment Date:07/21/2023 08:00:00 AM Scheduled Provider: Location:[facility] Appointment Type:URO Nurse Visit Appointment Date:08/04/2023 08:00:00 AM Scheduled Provider: Location:[facility] Appointment Type:URO Nurse Visit Appointment Date:09/01/2023 08:00:00 AM Scheduled Provider: Location:[facility] [place] Appointment Type:URO Nurse Visit Appointment Date:09/15/2023 08:00:00 AM Scheduled Provider:Lety Gonzalez MD Location:[facility] Appointment Type:URO Office Visit [facility] evaluation + Plan note Future Appointments Appointment Date:07/21/2023 08:00:00 AM Scheduled Provider: Location:[facility] [place] Appointment Type:URO Nurse Visit Appointment Date:08/04/2023 08:00:00 AM Scheduled Provider: Location:[facility] Appointment Type:URO Nurse Visit Appointment Date:09/01/2023 08:00:00 AM Scheduled Provider: Location:[facility] Appointment Type:URO Nurse Visit Appointment Date:09/15/2023 08:00:00 AM Scheduled Provider:Lety Gonzalez MD Location:[facility] Appointment Type:URO Office Visit [facility] evaluation + Plan note Future Appointments Appointment Date:08/04/2023 08:00:00 AM Scheduled Provider: Location:[facility] [place] Appointment Type:URO Nurse Visit Appointment Date:09/01/2023 08:00:00 AM Scheduled Provider: Location:[facility] [place] Appointment Type:URO Nurse Visit Appointment Date:09/15/2023 08:00:00 AM Scheduled Provider:Lety Gonzalez MD Location:[facility] Appointment Type:URO Office Visit [facility] evaluation + Plan note Future Appointments Appointment Date:09/01/2023 08:00:00 AM Scheduled Provider: Location:[facility] [place] Appointment Type:URO Nurse Visit Appointment Date:09/15/2023 08:00:00 AM Scheduled Provider:Lety Gonzalez MD Location:[facility] Appointment Type:URO Office Visit [facility] evaluation + Plan note Future Appointments Appointment Date:09/15/2023 08:00:00 AM Scheduled Provider:Lety Gonzalez MD Location:[facility] Appointment Type:URO Office Visit [facility] evaluation + Plan note Future Appointments Appointment Date:09/15/2023 08:00:00 AM Scheduled Provider:Lety Gonzalez MD Location:[facility] Appointment Type:URO Office Visit Diagnostic Tests Pending * Testosterone [facility] Appointment Date:09/29/2023 08:00:00 AM Scheduled Provider: Location:[facility] Appointment Type:URO Nurse Visit Appointment Date:03/01/2024 10:00:00 AM Scheduled Provider:Lety Gonzalez MD Location:[facility] Appointment Type:URO Office Visit Future Scheduled Tests Laboratory* PSA Screen, Total 12/15/23 * Hematocrit 09/15/23 * Testosterone Level Total 12/15/23 [facility] evaluation + Plan note Future Appointments Appointment Date:03/01/2024 10:00:00 AM Scheduled Provider:Lety Gonzalez MD Location:[facility] Appointment Type:URO Office Visit Future Scheduled Tests Laboratory* PSA Screen, Total 12/15/23 * Hematocrit 09/15/23 * Testosterone Level Total 12/15/23 [facility] evaluation + Plan note Future Appointments Appointment Date:11/03/2023 08:00:00 AM Scheduled Provider: Location:[facility] Appointment Type:URO Nurse Visit Appointment Date:03/01/2024 10:00:00 AM Scheduled Provider:Lety Gonzalez MD Location:[facility] Appointment Type:URO Office Visit Future Scheduled Tests Laboratory* PSA Screen, Total 12/15/23 * Hematocrit 09/15/23 * Testosterone Level Total 12/15/23 [facility] evaluation + Plan note Future Appointments Appointment Date:11/16/2023 09:00:00 AM Scheduled Provider: Location:[facility] Appointment Type:URO Nurse Visit Appointment Date:03/01/2024 10:00:00 AM Scheduled Provider:Lety Gonzalez MD Location:[facility] Appointment Type:URO Office Visit Future Scheduled Tests Laboratory* PSA Screen, Total 12/15/23 * Hematocrit 09/15/23 * Testosterone Level Total 12/15/23 [facility] evaluation + Plan note Future Appointments Appointment Date:12/24/2023 08:00:00 AM Scheduled Provider: Location:[facility] Appointment Type:URO Nurse Visit Appointment Date:03/01/2024 10:00:00 AM Scheduled Provider:Lety Gonzalez MD Location:[facility] Appointment Type:URO Office Visit Future Scheduled Tests Laboratory* PSA Screen, Total 12/15/23 * Hematocrit 09/15/23 * Testosterone Level Total 12/15/23 [facility] evaluation + Plan note Future Appointments Appointment Date:12/14/2023 08:30:00 AM Scheduled Provider: Location:[facility] Appointment Type:URO Nurse Visit Appointment Date:03/01/2024 10:00:00 AM Scheduled Provider:Lety Gonzalez MD Location:[facility] Appointment Type:URO Office Visit Future Scheduled Tests Laboratory* PSA Screen, Total 12/15/23 * Hematocrit 09/15/23 * Testosterone Level Total 12/15/23 [facility] evaluation + Plan note Future Appointments Appointment Date:12/28/2023 10:00:00 AM Scheduled Provider: Location:[facility] Appointment Type:URO Nurse Visit Appointment Date:03/01/2024 10:00:00 AM Scheduled Provider:Lety Gonzalez MD Location:[facility] Appointment Type:URO Office Visit Future Scheduled Tests Laboratory* PSA Screen, Total 12/15/23 * Hematocrit 09/15/23 * Testosterone Level Total 12/15/23 [facility] evaluation + Plan note Future Appointments Appointment Date:01/11/2024 08:30:00 AM Scheduled Provider: Location:[facility] Appointment Type:URO Nurse Visit Appointment Date:03/01/2024 10:00:00 AM Scheduled Provider:Lety Gonzalez MD Location:[facility] Appointment Type:URO Office Visit Future Scheduled Tests Laboratory* PSA Screen, Total 12/15/23 * Hematocrit 09/15/23 * Testosterone Level Total 12/15/23 [facility] evaluation + Plan note Future Appointments Appointment Date:01/25/2024 08:45:00 AM Scheduled Provider: Location:[facility] Appointment Type:URO Nurse Visit Appointment Date:03/01/2024 10:00:00 AM Scheduled Provider:Lety Gonzalez MD Location:[facility] Appointment Type:URO Office Visit Future Scheduled Tests Laboratory* PSA Screen, Total 12/15/23 * Hematocrit 09/15/23 * Testosterone Level Total 12/15/23 [facility] evaluation + Plan note Future Appointments Appointment Date:02/09/2024 08:00:00 AM Scheduled Provider: Location:[facility] Appointment Type:URO Nurse Visit Appointment Date:03/01/2024 10:00:00 AM Scheduled Provider:Lety Gonzalez MD Location:[facility] Appointment Type:URO Office Visit Future Scheduled Tests Laboratory* PSA Screen, Total 12/15/23 * Hematocrit 09/15/23 * Testosterone Level Total 12/15/23 [facility] evaluation + Plan note Future Appointments Appointment Date:02/23/2024 08:00:00 AM Scheduled Provider: Location:[facility] Appointment Type:URO Nurse Visit Appointment Date:03/08/2024 08:15:00 AM Scheduled Provider:Lety Gonzalez MD Location:[facility] Appointment Type:URO Office Visit Future Scheduled Tests Laboratory* PSA Screen, Total 12/15/23 * Hematocrit 09/15/23 * Testosterone Level Total 12/15/23 [facility] evaluation + Plan note Future Appointments Appointment Date:03/01/2024 08:00:00 AM Scheduled Provider: Location:[facility] Appointment Type:URO Nurse Visit Appointment Date:03/08/2024 08:15:00 AM Scheduled Provider:Leyt Gonzalez MD Location:[facility] Appointment Type:URO Office Visit Future Scheduled Tests Laboratory* PSA Screen, Total 12/15/23 * Hematocrit 09/15/23 * Testosterone Level Total 12/15/23 [facility] evaluation + Plan note Future Appointments Appointment Date:03/08/2024 08:15:00 AM Scheduled Provider:Lety Gonzalez MD Location:[facility] Appointment Type:URO Office Visit [facility] evaluation + Plan note Future Appointments Appointment Date:03/08/2024 08:15:00 AM Scheduled Provider:Lety Gonzalez MD Location:[facility] Appointment Type:URO Office Visit Diagnostic Tests Pending * Testosterone Level Total [facility] Appointment Date:03/08/2024 08:15:00 AM Scheduled Provider:Lety Gonzalez MD Location:[facility] Appointment Type:URO Office Visit Diagnostic Tests Pending * HgbA1c [facility]ments Appointment Date:03/22/2024 08:30:00 AM Scheduled Provider: Location:[facility] Appointment Type:URO Nurse Visit Appointment Date:04/05/2024 08:00:00 AM Scheduled Provider: Location:[facility] Appointment Type:URO Nurse Visit Appointment Date:08/23/2024 10:00:00 AM Scheduled Provider:Lety Gonzalez MD Location:[facility] Appointment Type:URO Office Visit Future Scheduled Tests Laboratory* Testosterone Level Total 09/08/24 [facility] evaluation + Plan note Future Appointments Appointment Date:04/05/2024 08:00:00 AM Scheduled Provider: Location:[facility] Appointment Type:URO Nurse Visit Appointment Date:08/23/2024 10:00:00 AM Scheduled Provider:Lety Gonzalez MD Location:[facility] Appointment Type:URO Office Visit Future Scheduled Tests Laboratory* Testosterone Level Total 09/08/24 [facility] evaluation + Plan note Future Appointments Appointment Date:04/19/2024 08:00:00 AM Scheduled Provider: Location:[facility] Appointment Type:URO Nurse Visit Appointment Date:08/23/2024 10:00:00 AM Scheduled Provider:Lety Gonzalez MD Location:[facility] Appointment Type:URO Office Visit Future Scheduled Tests Laboratory* Testosterone Level Total 09/08/24 [facility] evaluation + Plan note Future Appointments Appointment Date:05/03/2024 09:00:00 AM Scheduled Provider: Location:[facility] Appointment Type:URO Nurse Visit Appointment Date:08/23/2024 10:00:00 AM Scheduled Provider:Lety Gonzalez MD Location:[facility] Appointment Type:URO Office Visit Future Scheduled Tests Laboratory* Testosterone Level Total 09/08/24 [facility] evaluation + Plan note Future Appointments Appointment Date:05/17/2024 08:00:00 AM Scheduled Provider: Location:[facility] Appointment Type:URO Nurse Visit Appointment Date:08/23/2024 10:00:00 AM Scheduled Provider:Lety Gonzalez MD Location:[facility] Appointment Type:URO Office Visit Future Scheduled Tests Laboratory* Testosterone Level Total 09/08/24 [facility] Evaluation + Plan note Future Appointments Appointment Date:05/31/2024 08:00:00 AM Scheduled Provider: Location:[facility] Appointment Type:URO Nurse Visit Appointment Date:08/23/2024 10:00:00 AM Scheduled Provider:Lety Gonzalez MD Location:[facility] Appointment Type:URO Office Visit Future Scheduled Tests Laboratory* Testosterone Level Total 09/08/24 [facility] evaluation + Plan note Future Appointments Appointment Date:06/14/2024 08:00:00 AM Scheduled Provider: Location:[facility] Appointment Type:URO Nurse Visit Appointment Date:06/28/2024 08:00:00 AM Scheduled Provider: Location:[facility] Appointment Type:URO Nurse Visit Appointment Date:07/12/2024 08:00:00 AM Scheduled Provider: Location:[facility] Appointment Type:URO Nurse Visit Appointment Date:07/26/2024 08:00:00 AM Scheduled Provider: Location:[facility] Appointment Type:URO Nurse Visit Appointment Date:08/09/2024 08:00:00 AM Scheduled Provider: Location:[facility] Appointment Type:URO Nurse Visit Appointment Date:08/23/2024 10:00:00 AM Scheduled Provider:Lety Gonzalez MD Location:[facility] Appointment Type:URO Office Visit Future Scheduled Tests Laboratory* Testosterone Level Total 09/08/24 [facility] evaluation + Plan note Future Appointments Appointment Date:06/28/2024 08:00:00 AM Scheduled Provider: Location:[facility] Appointment Type:URO Nurse Visit Appointment Date:07/12/2024 08:00:00 AM Scheduled Provider: Location:[facility] Appointment Type:URO Nurse Visit Appointment Date:07/26/2024 08:00:00 AM Scheduled Provider: Location:[facility] Appointment Type:URO Nurse Visit Appointment Date:08/09/2024 08:00:00 AM Scheduled Provider: Location:[facility] Appointment Type:URO Nurse Visit Appointment Date:08/23/2024 10:00:00 AM Scheduled Provider:Lety Gonzalez MD Location:[facility] Appointment Type:URO Office Visit Appointment Date:08/29/2024 09:00:00 AM Scheduled Provider: Location:[facility] Appointment Type:URO Nurse Visit Appointment Date:09/20/2024 09:45:00 AM Scheduled Provider:Lety Gonzalez MD Location:[facility] Appointment Type:URO Office Visit Future Scheduled Tests Laboratory* Testosterone Level Total 09/08/24 [facility] evaluation + Plan note Future Appointments Appointment Date:07/12/2024 08:00:00 AM Scheduled Provider: Location:[facility] Appointment Type:URO Nurse Visit Appointment Date:07/26/2024 08:00:00 AM Scheduled Provider: Location:[facility] Appointment Type:URO Nurse Visit Appointment Date:08/09/2024 08:00:00 AM Scheduled Provider: Location:[facility] Appointment Type:URO Nurse Visit Appointment Date:08/23/2024 10:00:00 AM Scheduled Provider:Lety Gonzalez MD Location:[facility] Appointment Type:URO Office Visit Appointment Date:08/29/2024 09:00:00 AM Scheduled Provider: Location:[facility] Appointment Type:URO Nurse Visit Appointment Date:09/20/2024 09:45:00 AM Scheduled Provider:Lety Gonzalez MD Location:[facility] Appointment Type:URO Office Visit Future Scheduled Tests Laboratory* Testosterone Level Total 09/08/24 [facility] evaluation + Plan note Future Appointments Appointment Date:08/29/2024 09:00:00 AM Scheduled Provider: [facility] Appointment Type:URO Nurse Visit Appointment Date:09/20/2024 09:45:00 AM Scheduled Provider:Lety Gonzalez MD [facility] App[facility] Type:URO Office Visit Future Scheduled Tests Laboratory* Testosterone Level Total 09/08/24 [facility] [place] evaluation + Plan note Future Appointments Appointment Date:09/07/2024 09:00:00 AM Scheduled Provider: Location:[facility] Appointment Type:URO Nurse Visit Appointment Date:09/13/2024 08:00:00 AM Scheduled Provider: Location:[facility] Appointment Type:URO Nurse Visit Appointment Date:09/20/2024 09:45:00 AM Scheduled Provider:Lety Gonzalez MD Location:[facility] Appointment Type:URO Office Visit Future Scheduled Tests Laboratory* Testosterone Level Total 09/08/24 [facility] evaluation + Plan note Future Appointments Appointment Date:09/13/2024 08:00:00 AM Scheduled Provider: Location:[facility] Appointment Type:URO Nurse Visit Appointment Date:09/20/2024 09:45:00 AM Scheduled Provider:Lety Gonzalez MD Location:[facility] Appointment Type:URO Office Visit Future Scheduled Tests Laboratory* Testosterone Level Total 09/08/24 [facility] evaluation + Plan note Future Appointments Appointment Date:09/20/2024 09:45:00 AM Scheduled Provider:Lety Gonzalez MD Location:[facility] Appointment Type:URO Office Visit Future Scheduled Tests Laboratory* Testosterone Level Total 09/08/24 [facility] evaluation + Plan note Future Appointments Appointment Date:09/20/2024 09:45:00 AM Scheduled Provider:Lety Gonzalez MD Location:[facility] Appointment Type:URO Office Visit Diagnostic Tests Pending * Testosterone Level Total 09/13/24 Future Scheduled Tests Laboratory* Testosterone Level Total 09/08/24 [facility] Evaluation + Plan note Future Appointments Appointment Date:10/18/2024 08:30:00 AM Scheduled Provider: Location:[facility] Appointment Type:URO Nurse Visit Appointment Date:10/27/2024 08:00:00 AM Scheduled Provider:Lety Gonzalez MD Location:[facility] Appointment Type:URO Office Visit Appointment Date:12/20/2024 09:45:00 AM Scheduled Provider:Lety Gonzalez MD Location:[facility] Appointment Type:URO Office Visit Future Scheduled Tests Laboratory* Testosterone Level Total 09/08/24 [facility] evaluation + Plan note Future Appointments Appointment Date:10/27/2024 08:00:00 AM Scheduled Provider:Lety Gonzalez MD Location:[facility] Appointment Type:URO Office Visit Appointment Date:12/20/2024 09:45:00 AM Scheduled Provider:Lety Gonzalez MD Location:[facility] Appointment Type:URO Office Visit Diagnostic Tests Pending * Testosterone Level Total 10/18/24 Future Scheduled Tests Laboratory* Testosterone Level Total 09/08/24 [facility] Evaluation + Plan note Future Appointments Appointment Date:10/27/2024 08:00:00 AM Scheduled Provider:Lety Gonzalez MD Location:[facility] Appointment Type:URO Office Visit Appointment Date:12/20/2024 09:45:00 AM Scheduled Provider:Lety Gonzalez MD Location:[facility] Appointment Type:URO Office Visit Future Scheduled Tests Laboratory* Testosterone Level Total 09/08/24 [facility] evaluation + Plan note Future Appointments Appointment Date:11/08/2024 08:30:00 AM Scheduled Provider: Location:[facility] Appointment Type:URO Nurse Visit Appointment Date:04/18/2025 08:00:00 AM Scheduled Provider: Location:[facility] Appointment Type:URO Nurse Visit Appointment Date:05/02/2025 08:45:00 AM Scheduled Provider:Lety Gonzalez MD Location:[facility] Appointment Type:URO Office Visit Future Scheduled Tests Laboratory* Testosterone Level Total 09/08/24 * Testosterone Level Total 04/06/25 [facility] [place] Evaluation + Plan note Future Appointments Appointment Date:11/22/2024 08:00:00 AM Scheduled Provider: Location:[facility] Appointment Type:URO Nurse Visit Appointment Date:12/06/2024 08:00:00 AM Scheduled Provider: Location:[facility] Appointment Type:URO Nurse Visit Appointment Date:04/25/2025 08:00:00 AM Scheduled Provider: Location:[facility] Appointment Type:URO Nurse Visit Appointment Date:05/02/2025 08:45:00 AM Scheduled Provider:Lety Gonzalez MD Location:[facility] Appointment Type:URO Office Visit Future Scheduled Tests Laboratory* Testosterone Level Total 09/08/24 * Testosterone Level Total 04/06/25 [facility] evaluation noteNo [employer] Other Evaluation note* Diagnosis Onset Date Resolution Status CAD (coronary artery disease) acute Diabetes acute GERD (gastroesophageal reflux disease) acute Hypertension acute Screening for colon cancer a cute Screening PSA (prostate specific antigen) acute [facility] Work Phone: evaluation note* Diagnosis Onset Date Resolution Status CAD (coronary artery disease) acute Diabetes acute GERD (gastroesophageal reflux disease) acute Hypertension acute Screening for colon cancer a cute Screening PSA (prostate specific antigen) acute Fatigue acute Hypertension acute Type II diabetes mellitus ac [facility] Work Phone: Evaluation note* Diagnosis Onset Date Resolution Status Claudication acute Fatigue acute Hypertension acute Type II diabetes mellitus ac [facility] Work Phone: Evaluation note* Diagnosis Onset Date Resolution Status Claudication acute Fatigue acute Hypertension acute Type II diabetes mellitus ac [place] Bilateral lower extremity edema acute Hemosiderin pigmentation of lower extremity due to varicose veins acute Obesity acute Symptomatic varicose veins of both lower extremities acute Wound of foot acute [facility] Work Phone: Evaluation note* Diagnosis Foot ulcer, left, with fat layer exposed (CMS/HCC)- Primary Diabetes 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 polyneuropathy, unspecified whether intermission coordinator insulin use (CMS/HCC) Foot ulcer, right, with fat layer exposed (CMS/HCC) documented in this encounter [facility] HealthcareEvaluation note* Diagnosis Onset Date Resolution Status [...] acute Obesity acute Type II diabetes mellitus [facility] Work Phone: Evaluation note* Diagnosis Diabetes 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 polyneuropathy, unspecified whether intermission coordinator insulin use (CMS/HCC)- Primary Foot ulcer, right, with fat layer exposed (CMS/HCC) Foot ulcer, left, with fat layer exposed (CMS/HCC) PVD (peripheral vascular disease) (CMS/HCC) Unspecified peripheral vascular disease documented in this encounter [facility] HealthcareEvaluation note* Diagnosis Diabetes 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 polyneuropathy, unspecified whether jail insulin use (CMS/HCC)- Primary Foot ulcer, right, with fat layer exposed (CMS/HCC) documented in this encounter [facility] HealthcareEvaluation note* Diagnosis Diabetes 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 polyneuropathy, unspecified whether intermission coordinator insulin use (CMS/HCC)- Primary Foot ulcer, right, with fat layer exposed (CMS/HCC) Foot ulcer, left, with fat layer exposed (CMS/HCC) documented in this encounter [facility] HealthcareEvaluation note* Diagnosis Xerosis cutis- Primary Other specified disease of sebaceous glands Skin fissure Other specified disorder of skin Diabetes 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 polyneuropathy, unspecified whether jail insulin use (CMS/HCC) Foot ulcer, right, with fat layer exposed (CMS/HCC) PVD (peripheral vascular disease) (CMS/HCC) Unspecified peripheral vascular disease documented in this encounter [facility] HealthcareEvaluation note* Diagnosis Foot ulcer, right, with fat layer exposed (CMS/HCC)- Primary Xerosis cutis Other specified disease of sebaceous glands Skin fissure Other specified disorder of skin Diabetes 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 polyneuropathy, unspecified whether intermission coordinator insulin use (CMS/[facility]) PVD (peripheral vascular disease) ([facility]) Unspecified peripheral vascular disease documented in this encounter [facility]* Diagnosis Xerosis cutis- Primary Other specified disease of sebaceous glands Skin fissure Other specified disorder of skin PVD (peripheral vascular disease) ([facility]) Unspecified peripheral vascular disease Diabetes 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 polyneuropathy, unspecified whether jail insulin use ([facility]) Foot ulcer, right, with fat layer exposed ([facility]) documented in this encounter [facility]* Diagnosis Diabetes 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 polyneuropathy, unspecified whether jail insulin use ([facility])- Primary Foot ulcer, right, with fat layer exposed ([facility]) PVD (peripheral vascular disease) [place] Unspecified peripheral vascular disease documented in this encounter [facility]* Diagnosis Diabetes 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 polyneuropathy, unspecified whether jail insulin use ([facility])- Primary Foot ulcer, right, with fat layer exposed ([facility]) PVD (peripheral vascular disease) ([facility]) Unspecified peripheral vascular disease Xerosis cutis Other specified disease of sebaceous glands documented in this encounter [facility]* Diagnosis Small bowel obstruction [place] Primary Unspecified intestinal obstruction JAM (obstructive sleep apnea) Obstructive sleep apnea (adult) (pediatric) Small bowel obstruction [place] Unspecified intestinal obstruction Primary hypertension Unspecified essential hypertension JAM (obstructive sleep apnea) Obstructive sleep apnea (adult) (pediatric) Hypertension Unspecified essential hypertension DM2 (diabetes mellitus, type 2) [place] CAD (coronary artery disease) Coronary atherosclerosis of unspecified type of vessel, [place] or graft [facility]* Diagnosis Onset Date Resolution Status Admit Date CAD (coronary artery disease) acute November 20, 2024 9:18am Hyperlipidemia acute November 9:18am Hypertension acute November 20, 2024 9:18am Type II diabetes mellitus acute November 20, 2024 9:18am [facility] Work Phone: History general Narrative - Reported* Type Description Date Medical History 2nd opinion for vein surgery Medical History HTN Medical History DM Medical History CAD with prior [place] Medical History CVI Medical History Depression Medical History Edema leg Medical History Diabetic polyneuropa thy associated with other specified diabetes mellitus Surgical History toe surgery/ right foot great t oe Surgical History tonsillectomy Surgical History heart stent 2 Hospitalization History tonsillectomy Hospitalization History pneumonia [employer] Other Hospital course Narrative No data available for this section [facility] Hospital Discharge instructions No data available for this section [facility] Hospital Discharge instructionsAmbulatory Orders* Referral to Gastroenterology Time Frame: 11/30/23, Location: None [facility] Work Phone: Hospital Discharge instructionsNot on filedocumented in this encounterProCl[facility] SystemInstructionsNot on filedocumented in this encounterProClinton [facility] SystemProgress note No data available for this section [facility] reason for visit Narrative* Auth/Cert (Routine) Specialty Diagnoses / Procedures Referred By Harmony montalvo Referred To Contact Diagnoses Small bowel obstruction (CMS-HCC) Arrhythmia Small bowel obstruction Adrienne Rodriguez MD [address] [address] Phone: tel: fax: Referral ID Status Reason Start Date Expiration Date Visits Re quested Visits Authorized [id number] [address] [facility] Summary Purpose Family History No Family History [...] Date/ Time Advance Directives No May 10:55am Date Activated Date Inactivated Comments 07/24/2024 4:09 AM 07/28/2024 6:17 PM Chief Complaint * JOHNATHAN CORREA is being seen for an annual follow-up of overdue. * 62-year-old gentleman who returns for follow-up and is doing well from a cardiovascular standpoint.We have not seen him for approximately year and a half. He has history of known ASHD currently asymptomatic, with remote PCI's of the circumflex and diagonal branch last imaged in [address] Nagy, details of his angiogram [...] Claudication Fatigue Hypertension Type II diabetes mellitus Chief Complaint Admit Date 3 month f/u-HIGH RISK November 20, 2024 9 :18am Reason for Visit Admit Date CAD (coronary artery disease) November 9:18am Hyperlipidemia November 20, 2024 9:1 8am Hypertension November 20, 2024 9:1 8am Type II diabetes mellitus November 20 9:18am Reason for Referral Specialty Diagnoses / Procedures Referred By Contac t Referred To Contact Radiology Diagnoses PVD (peripheral vascular disease) ([facility]) Procedures Vascular US lower extremity arterial Doppler complete Gray Cancino DPM [address] [address] Referral ID Status Reason Start Date Expiration Date Visits Requested Visits Authorized [id number] Pending Review Perform Procedure 05/04/2024 10/31/2024 1 1 Additional Source Comments (unrecognized sect ion and [...] section and content) DATE CREATED AUTHOR 08/14/2018 [facility] DATE CREATED AUTHOR AUTHOR'S ORGANIZ ATION 12/24/2022 [facility] [place] [facility] DATE CREATED AUTHOR AUTHOR'S ORGANIZ ATION 06/30/2023 [facility] DATE CREATED AUTHOR AUTHOR'S ORGANIZ ATION 03/03/2024 [place] [facility] DATE CREATED AUTHOR AUTHOR'S ORGANIZ ATION 03/04/2024 [place] [facility] DATE CREATED AUTHOR AUTHOR'S ORGANIZ ATION 03/09/2024 [place] [facility] DATE CREATED AUTHOR AUTHOR'S ORGANIZ ATION 03/10/2024 [facility] DATE CREATED AUTHOR AUTHOR'S ORGANIZ ATION 07/15/2024 [facility] DATE CREATED AUTHOR AUTHOR'S ORGANIZ ATION 08/04/2024 [facility] DATE CREATED AUTHOR AUTHOR'S ORGANIZ ATION 09/29/2024 [place] [facility] DATE CREATED AUTHOR AUTHOR'S ORGANIZ ATION 10/30/2024 [facility] DATE CREATED AUTHOR AUTHOR'S ORGANIZ ATION 12/09/2024 [facility] Care Team (unrecognized sect ion and content) [...] Team Status: Inactive Member Role Status Dates Lius Jeffrey MD Primary Care Provide r, Attending [...] May 01, 2024 End: May 01, 2024 Cannery Worker Relationship Specialty Start Date End Date Luis Jeffrey MD [address] [place] [phone] PCP - General Family Medicine 05/04/24 Cannery Worker Relationship Specialty Start Date End Date Luis Jeffrey MD [address] [place] [phone] PCP - General Family Medicine 05/04/24 Team Status: Inactive Member Role Status Dates Luis Jeffrey MD Primary Care Provide r, Attending Provider Active Start: June 14, 2024 End: June 14, 2024 Cannery Worker Relationship Specialty Start Date End Date Luis Jeffrey MD [address] [facility] [place] [phone] PCP - General Family Medicine 05/04/24 Cannery Worker Relationship Specialty Start Date End Date Luis Jeffrey MD [address] [facility] [place] [phone] PCP - General Family Medicine 05/04/24 Cannery Worker Relationship Specialty Start Date End Date Luis Jeffrey MD [address] [facility] [place] [phone] PCP - General Family Medicine 05/04/24 Cannery Worker Relationship Specialty Start Date End Date Luis Jeffrey MD [address] [facility] [place] [phone] PCP - General Family Medicine 05/04/24 Cannery Worker Relationship Specialty Start Date End Date Luis Jeffrey MD [address] [facility] [place] [phone] PCP - General Family Medicine 05/04/24 Cannery Worker Relationship Specialty Start Date End Date Luis Jeffrey MD [address] [facility] [place] [phone] PCP - General Family Medicine 05/04/24 Cannery Worker Relationship Specialty Start Date End Date Luis Jeffrey MD [address] [facility] [place] [phone] PCP - General Family Medicine 05/04/24 Team Status: Inactive Member Role Status Dates Luis Jfefrey MD Primary Care Provide r, Attending Provider Active Start: November 20, 2024 End: November 20, 2024 REASON FOR VISIT (unrecogniz ed section and content) Reason Comments Follow-up Bl ulcer check Reason Comments Follow-up lesions Reason Comments Post-op 1st post op, B/L gra ft Reason Comments Foot Ulcer Rt ft ulcer Reason Comments Foot Ulcer Rt GT toe ulcer Reason Comments Foot Ulcer 1wk ulcer F/U Reason Comments Foot Pain Reason Comments Follow-up Follow up bl ulcer Reason Comments Follow-up 1WK RT ULCER Reason Comments Follow-up 1wk ulcer Reason Onset Date Comments Consult 07/24/2024 Small bowel obst ruction Goals (unrecognized section and content) Goals may be documented in a n alternate section Scheduled Active and Recently Administ ered Medications (unrecognized section and content) Medication Order 07/26/2024 07/27/2024 07/28/2024 amLODIPine (NORVASC) tablet 5 mg 5 mg, oral, Daily, First dose on Wed07/26/24 at 1415, Look-alike/sound-alike medication - verify indication for use. Avoid grapefruit juice. 1538 (Given - Provider: Blaire Aldana LPN) 0938 (Given - Provider: Blaire Aldana LPN) 0904 (Given - Provider: Francisca Mcfadden LPN) atorvastatin (LIPITOR) tablet 20 mg 20 mg, oral, Daily, First dose on Wed07/26/24 at 0930, Look-alike/sound-alike medication - verify indication for use. 1033 (Given - Provider: Blaire Aldana LPN) 0938 (Given - Provider: Blaire Aldana LPN) 0904 (Given - Provider: Francisca Mcfadden LPN) carvediloL (COREG) tablet 12.5 mg 12.5 mg, oral, 2 times daily with meals, First dose on Wed07/26/24 at 0930, Give with meal or snack. Look-alike/sound-alike medication - verify indication for use. 1033 (Given - Provider: Blaire Aldana LPN)1728 (Given - Provider: Blaire Aldana LPN) 0938 (Given - Provider: Blaire Aldana LPN)1647 (Given - Provider: Blaire Aldana LPN) 0904 (Given - Provider: Francisca Mcfadden LPN) citalopram (CeleXA) tablet 40 mg 40 mg, oral, Daily, First dose on Wed07/26/24 at 0930, Look-alike/sound-alike medication - verify indication for use. 1033 (Given - Provider: Balire Aldana LPN) 0938 (Given - Provider: Blaire Aldana LPN) 0904 (Given - Provider: Francisca Mcfadden LPN) insulin lispro (HumaLOG) injection 2-10 Units (CANCELED) 2-10 Units, subcutaneous, Every 6 hours, First dose on Wed07/24/24 at 1000, For blood glucose 151-200 mg/dL, give 2 units. For blood glucose 201-250 mg/dL, give 4 units. For blood glucose 251-300 mg/dL, give 6 units. For blood glucose 301-350 mg/dL, give 8 units. For blood glucose 351-400 mg/dL, give 10 units. Notify prescriber if blood glucose greater than 400 mg/dL. Look-alike/sound-alike medication - verify indication for use. Prime with 2 units of insulin prior to administration. Prandial/supplemental Insulin. Pre-filled pens stable 28 days at room temperature. Insulin lispro should be administered within 15 minutes before or immediately after a meal. 0000 (Not Given - Provider: Luis Pope RN - Reason: Order parameters not met)0600 (Not Given - Provider: Luis Pope RN - Reason: Order parameters not met)1242 (Given - Provider: Blaire Aldana LPN) insulin lispro (HumaLOG) injection 2-10 Units 2-10 Units, subcutaneous, 4 times daily with meals and nightly, First dose (after last modification) on Wed07/26/24 at 1700, For blood glucose 151-200 mg/dL, give 2 units. For blood glucose 201-250 mg/dL, give 4 units. For blood glucose 251-300 mg/dL, give 6 units. For blood glucose 301-350 mg/dL, give 8 units. For blood glucose 351-400 mg/dL, give 10 units. Notify prescriber if blood glucose greater than 400 mg/dL. Look-alike/sound-alike medication - verify indication for use. Prime with 2 units of insulin prior to administration. Prandial/supplemental Insulin. Pre-filled pens stable 28 days at room temperature. Insulin lispro should be administered within 15 minutes before or immediately after a meal. 1700 (Not Given - Provider: Blaire Aldana LPN - Reason: Order parameters not met - Comment: 143 mg/dl)2200 (Not Given - Provider: Luis Pope RN - Reason: Order parameters not met) 0800 (Not Given - Provider: Blaire Aldana LPN - Reason: Order parameters not met)1306 (Given - Provider: Blaire Aldana LPN)1649 (Given - Provider: Blaire Aldana LPN)2233 (Given - Provider: Erwin Starkey RN) 0800 (Not Given - Provider: Francisca Mcfadden LPN - Reason: Order parameters not met - Comment: bs 149)1230 (Given - Provider: Francisca Mcfadden LPN) lisinopriL (PRINIVIL,ZESTRIL) tablet 5 mg 5 mg, oral, Daily, First dose on Wed07/26/24 at 1415, Look-alike/sound-alike medication - verify indication for use. 1538 (Given - Provider: Blaire Aldana LPN) 0938 (Given - Provider: Blaire Aldana LPN) 0904 (Given - Provider: Francisca Mcfadden LPN) metoprolol (LOPRESSOR) injection 5 mg (CANCELED) 5 mg, intravenous, Every 6 hours scheduled, First dose (after last modification) on Wed07/25/24 at 0900, Hold for HR <60 bpm or SBP <100 mmHg Look-alike/sound-alike medication - verify indication for use. 0052 (Given - Provider: Lius Pope RN)0505 (Given - Provider: Luis Pope RN) pantoprazole (PROTONIX) EC tablet 40 mg 40 mg, oral, Every morning before breakfast, First dose on Wed07/28/24 at 0700, Look-alike/sound-alike medication - verify indication for use. If patient is receiving enteral feeding, consider alternative PPI or continue IV pantoprazole until the delayed-release tablet can be taken orally, Indication: GERD 0600 (Given - Provider: Erwin Starkey RN) pantoprazole (PROTONIX) injection 40 mg (CANCELED) 40 mg, intravenous, Every 24 hours scheduled, First dose on Wed07/25/24 at 1515, GERD Look-alike/sound-alike medication - verify indication for use., Indication: Other ([place]) 0919 (Given - Provider: Arabella Rousseau RN) 0900 (Not Given - Provider: Blaire Aldana LPN - Reason: See Provider Order) sodium chloride 0.9 % flush 3 mL 3 mL, intravenous, Every 12 hours scheduled, First dose on Wed07/24/24 at 0900 0900 (Not Given - Provider: Blaire Aldana LPN - Reason: IV infusing)2053 (Given - Provider: Luis Pope RN) 0938 (Given - Provider: Blaire Aldana LPN)223 (Given - Provider: Erwin Starkey RN) 0908 (Given - Provider: Francisca Mcfadden LPN) Continuous Medication Order 07/26/2024 07/27/2024 07/28/2024 lactated ringers infusion 125 mL/hr, intravenous, Continuous, Starting on Wed07/24/24 at 0415, For 1 day lactated ringers infusion () 125 mL/hr, intravenous, Continuous, Starting on Wed07/25/24 at 0845, For 1 day 0320 (Stop Bag - Provider: Blaire Aldana LPN)0320 (New Bag - Provider: Luis Pope RN)0526 (Paused - Provider: Blaire Aldana LPN)0532 (Restarted - Provider: Blaire Aldana LPN)0801 (Paused - Provider: Blaire Aldana LPN)0808 (Restarted - Provider: Blaire Aldana LPN)0915 (Paused - Provider: Blaire Aldana LPN)0917 (Restarted - Provider: Blaire Aldana LPN)1039 (Stop Bag - Provider: Blaire Aldana LPN) PRN Medication Order 07/26/2024 07/27/2024 07/28/2024 acetaminophen (TYLENOL EXTRA STRENGTH) tablet 500 mg 500 mg, oral, Every 6 hours PRN, mild pain - pain scale 1-3, headaches, temperature greater than 38 C, Starting on Wed07/24/24 at 0407, [Warning: Total Acetaminophen not to exceed more than 4 grams (4000 mg) in 24 hours] 1736 (Given - Provider: Blaire Aldana LPN) dextrose (GLUTOSE) 40 % gel 15 g 15 g, oral, As needed, low blood sugar, blood glucose less than 70 mg/dL, Starting on Wed07/24/24 at 0407, If patient conscious and taking PO. If blood glucose is not greater than 70 mg/dL after initial treatment, repeat treatment. dextrose 5 % (D5W) infusion 100 mL/hr, intravenous, Continuous PRN, blood glucose less than 70 mg/dL, Starting on Wed07/24/24 at 0407, Use immediately following dextrose 50% or glucagon treatment for patients who are unconscious or NPO. Contact prescriber for additional orders. If blood glucose is not greater than 70 mg/dL after initial treatment, repeat treatment. dextrose 50 % in water (D50W) 50% solution 25 mL 25 mL, intravenous, As needed, low blood sugar, blood glucose less than 70 mg/dL and unconscious or NPO with IV access, Starting on Wed07/24/24 at 0407, Push over 1-3 minutes STAT. If conscious and not NPO, immediately follow with meal tray or high protein (7 grams) snack if tray not available. If NPO, initiate 5% dextrose in water at 100 mL/hr and contact prescriber for additional orders. If blood glucose is not greater than 70 mg/dL after initial treatment, repeat treatment. VESICANT (RED) Warning: HYPERTONIC solution. glucagon HCL injection 1 mg 1 mg, intramuscular, As needed, low blood sugar, blood glucose less than 70 mg/dL and unconscious or NPO without IV access., Starting on Wed07/24/24 at 0407, If conscious and not NPO, immediately follow with meal tray or high protein (7Grams) snack if tray not available. If NPO, initiate IV 5% Dextrose/Water at 100 mL/hr and contact prescriber for additional orders. If blood glucose is not greater than 70 mg/dL after initial treatment, repeat treatment. magnesium sulfate IVPB 2000 mg/50 mL in iso-osmotic water (40 mg/mL premix) 2,000 mg, intravenous, at 25 mL/hr, Administer over 120 Minutes, As needed, Magnesium level 1.7 to 1.9 mg/dL, or Ionized Magnesium level 0.45 to 0.5 mmol/L., Starting on Wed07/24/24 at 1016, Recheck magnesium level 4 hours after infusion complete. With each magnesium result continue the replacement orders as needed. 0240 (New Bag - Provider: Erwin Starkey RN)0440 (Stop Bag - Provider: Erwin Starkey RN) magnesium sulfate IVPB 4000 mg/100 mL in iso-osmotic water (40 mg/mL premix) 4,000 mg, intravenous, at 25 mL/hr, Administer over 240 Minutes, As needed, Magnesium level 1.6 mg/dL or less, or Ionized Magnesium level 0.44 mmol/L or less, Starting on Wed07/24/24 at 1016, Recheck magnesium level 4 hours after infusion complete. With each magnesium result continue the replacement orders as needed. potassium chloride (K-TAB,KLOR-CON) CR tablet 30-40 mEq(Linked Group 1) 30-40 mEq, oral, As needed, Potassium Supplementation, Starting on Wed07/24/24 at 1015, Progress to oral potassium replacement when patient tolerating oral intake. If dose administered, recheck potassium level 4 hours after last dose. For potassium level 3.4 to 3.8 mmol/L and GFR 30 mL/min or greater=30 mEq. For potassium level 3.1 to 3.3 mmol/L and GFR 30 mL/min or greater=40 mEq. For potassium level 3 mmol/L or less and GFR 30 mL/min or greater=50 mEq. Do not crush or chew. 0904 (Given - Provid er: Francisca Mcfadden LPN) potassium chloride (KAYCIEL) 20 mEq/15 mL solution 30-40 mEq(Linked Group 1) 30-40 mEq, oral, As needed, Potassium Supplementation, Starting on Wed07/24/24 at 1015, Progress to oral potassium replacement when patient tolerating oral intake. If dose administered, recheck potassium level 4 hours after last dose. For potassium level 3.4 to 3.8 mmol/L and GFR 30 mL/min or greater=30 mEq. For potassium level 3.1 to 3.3 mmol/L and GFR 30 mL/min or greater=40 mEq. For potassium level 3 mmol/L or less and GFR 30 mL/min or greater=50 mEq. Must dilute before use - Mix in 3-8 ounces of water or juice before administration When administering in feeding tube, flush before and after per policy and monitor potassium levels 903 (See Alternativ e - Provider: Francisca Mcfadden LPN) potassium chloride IVPB 10 mEq/100 mL in water (0.1 mEq/mL premix)(Linked Group 1) 10 mEq, intravenous, at 100 mL/hr, Administer over 60 Minutes, As needed, POTASSIUM REPLACEMENT, Starting on Wed07/24/24 at 1015, IV if unable to use oral/enteral with the current dosing strategies Potassium level 3 mmol/L or less administer Potassium Chloride 50 mEq Potassium level 3.1 to 3.3 mmol/L administer Potassium Chloride 40 mEq Potassium level 3.4 to 3.8 mmol/L administer Potassium Chloride 30 mEq Use central line when applicable. Recheck potassium level 1 hour after total IVPB infusion complete, With each potassium result continue the replacement orders as needed VESICANT (YELLOW) Infuse each 10 mEq over a minimum of 1 hour. 0904 (See Alternativ e - Provider: Francisca Mcfadden LPN) prochlorperazine (COMPAZINE) injection 5 mg 5 mg, intravenous, Every 6 hours PRN, nausea, vomiting, Starting on Wed07/24/24 at 0355, When administered via IV Push, do not exceed 5 mg per minute sodium chloride 0.9 % flush 3 mL 3 mL, intravenous, As needed, line care, before and after each intermittent use, Starting on Wed07/24/24 at 0407 Linked Groups Order Group 1: potassium chloride (K-TAB,KLOR-CON) CR tablet 30-40 mEqJump to med 30-40 mEq, oral, As needed, Potassium Supplementation, Starting on Wed07/24/24 at 1015, Progress to oral potassium replacement when patient tolerating oral intake. If dose administered, recheck potassium level 4 hours after last dose. For potassium level 3.4 to 3.8 mmol/L and GFR 30 mL/min or greater=30 mEq. For potassium level 3.1 to 3.3 mmol/L and GFR 30 mL/min or greater=40 mEq. For potassium level 3 mmol/L or less and GFR 30 mL/min or greater=50 mEq. Do not crush or chew. Or potassium chloride (KAYCIEL) 20 mEq/15 mL solution 30-40 mEqJump to med 30-40 mEq, oral, As needed, Potassium Supplementation, Starting on Wed07/24/24 at 1015, Progress to oral potassium replacement when patient tolerating oral intake. If dose administered, recheck potassium level 4 hours after last dose. For potassium level 3.4 to 3.8 mmol/L and GFR 30 mL/min or greater=30 mEq. For potassium level 3.1 to 3.3 mmol/L and GFR 30 mL/min or greater=40 mEq. For potassium level 3 mmol/L or less and GFR 30 mL/min or greater=50 mEq. Must dilute before use - Mix in 3-8 ounces of water or juice before administration When administering in feeding tube, flush before and after per policy and monitor potassium levels Or potassium chloride IVPB 10 mEq/100 mL in water (0.1 mEq/mL premix)Jump to med 10 mEq, intravenous, at 100 mL/hr, Administer over 60 Minutes, As needed, POTASSIUM REPLACEMENT, Starting on Wed07/24/24 at 1015, IV if unable to use oral/enteral with the current dosing strategies Potassium level 3 mmol/L or less administer Potassium Chloride 50 mEq Potassium level 3.1 to 3.3 mmol/L administer Potassium Chloride 40 mEq Potassium level 3.4 to 3.8 mmol/L administer Potassium Chloride 30 mEq Use central line when applicable. Recheck potassium level 1 hour after total IVPB infusion complete, With each potassium result continue the replacement orders as needed VESICANT (YELLOW) Infuse each 10 mEq over a minimum of 1 hour. FOR RECORDS PERTAINING TO PATIENTS WHO ARE [...] BE BASED ON THE PRIMARY CLINICAL RECORDS. [facility]. provides no warranty or guarantee of the accuracy or completeness of information in this document.
[2024-12-14 04:11] LABS: Testosterone 645 ng/dL (264-916)
== END 2024-12-13 06:55 | disposition home or self-care (01) ==
LOC: LAB 06:59
PROVIDERS: PCP Family Medicine; Visit Provider Urology
DX: N52.9 Male erectile dysfunction, unspecified (principal)
CPT/HCPCS: 36415; 84403

== ENCOUNTER 2025-07-04 06:25 | Outpatient (OUT) | payer BC, SELFPAY ==
--- OUTSIDE RECORDS SUMMARY | 2025-06-27 23:59 | XMS_ITS | Continuity of Care Document ---
Author Organization [facility] Address [address] [place] [address] Care Team Providers Care Bicycle Repairer Name Role Phone LUIS JEFFREY Primary Care Physician Encounter FT_AMBFIN [id number] Date(s): 06/27/25 - 06/27/25 [facility] [address] [address]- [place] Discharge Disposition: Home (Routine DC) Attending Physician: Lety Gonzalez MD Encounter Type: Clinic Allergies, Adverse Reactions, Alerts SubstanceCriticalitySeverityReactionReaction SeverityStatusmetFORMINStomach cramps Diarrhea Active Assessment and Plan Future Appointments Appointment Date:07/11/2025 08:00:00 AM Scheduled Provider: Location:[facility] Appointment Type:URO Nurse Visit Appointment Date:07/25/2025 08:00:00 AM Scheduled Provider: Location:[facility] Appointment Type:URO Nurse Visit Appointment Date:05/01/2026 08:00:00 AM Scheduled Provider:Lety Gonzalez MD Location:[facility] Appointment Type:URO Office Visit Future Scheduled Tests Laboratory* Testosterone Level Total 09/08/24 Immunizations Given and Recorded VaccineDateStatusRefusal [id number] (COVID-19) mRNA BNT-162b2 [id number]// [id number]-8 (COVID-19) mRNA BNT-162b2 vax23//52FmnylkqpEESB-IxI-4 (COVID-19) mRNA BNT-162b2 vax311/12/20Recorded Not Given VaccineDateStatusRefusal Reasoninfluenza virus vaccine, inactivated09/15/23Not GivenPatient Refuses 1Result Comment: 2022-05-27: [id number] 2Result Comment: 2022-05-27: TPV60 3Result Comment: 2022-05-27: TPV60 Medications amLODIPine 5 mg Tab mg tab(s), Oral, Daily, Refills(s) 0 Start Date: 07/03/21 Status: Ordered Repeat number: 1 atorvastatin 10 mg Tab mg tab(s), Oral, Daily, Refills(s) 0 Start Date: 07/03/21 Status: Ordered Repeat number: 1 carvedilol 12.5 mg Tab mg tab(s), Oral, BID, Refills(s) 0 Start Date: 07/03/21 Status: Ordered Repeat number: 1 citalopram Oral, Daily, Refills(s) 0 Start Date: 07/03/21 Status: Ordered Repeat number: 1 glipiZIDE 5 mg Tab mg tab(s), Oral, Daily, Refills(s) 0 Start Date: 07/03/21 Status: Ordered Repeat number: 1 lisinopril 5 mg Tab mg tab(s), Oral, Daily, Refills(s) 0 Start Date: 07/03/21 Status: Ordered Repeat number: 1 omeprazole 40 mg Cap-DR mg cap(s), Oral, Daily, Refills(s) 0 Start Date: 07/03/21 Status: Ordered Repeat number: 1 pioglitazone 30 mg Tab TAKE 1 TABLET BY MOUTH EVERY DAY FOR 30 DAYS Start Date: 03/08/24 Status: Ordered Repeat number: 1 Steglatro 15 mg oral tablet mg tab(s), Oral, qAM, Refills(s) 0 Start Date: 07/03/21 Status: Ordered Repeat number: 1 testosterone cypionate 200 mg/mL IM Erin 150 mg, IntraMuscular, q2wk, # 10 mL, Refills(s) 5, Pharmacy: [facility]/pharmacy #[id number], 174, cm, 05/02/2511:10:00 EDT, Height/Length Dosing, 154.4, kg, 05/02/25 11:10:00 EDT, Weight Dosing Start Date: 05/02/25 Status: Ordered Quantity: 10.0 Unit: mL Repeat number: 6 Indications: Testicular hypofunction; Problem List ConditionConfirmationCourseEffective DatesStatusHealth StatusInformantBPH without urinary obstructionConfirmedActiveDiabetes mellitusConfirmed10/14/23Active ED (erectile dysfunction)ConfirmedActiveEssential hypertensionConfirmed10/14/23 ActiveFormer smokerConfirmedActiveHyperlipidemiaConfirmed10/14/23Active Hypogonadism maleConfirmedActiveNocturiaConfirmedActive Procedures ProcedureDateRelated DiagnosisBody SiteStatusAortic stentCompletedBig toe CompletedTonsillectomyCompleted Social History Social History TypeResponseSmoking StatusFormer smoker, quit more than 30 days ago;Never; Type: Cigarettes; Concerns about tobacco use in household: No; Smoking Cessation Yes entered on: 03/08/24Birth SexMaleSex RepresentationMale (finding) Patient Care team information Care Team Personnel Name: LUIS JEFFREY MD Position: FT Physician Member Role: Primary Care Physician Address: [address] [place] [address] Telecom: Name: Eliane Andrade Member Role: [employer]: Claims Followup Rep (Andres) Care Team Related Persons Name: CLAUDIA AMBROSIO Name: CLAUDIA AMBROSIO Insurance Providers Guarantor name: JOHNATHAN AMBROSIO Health Plan Information #: 1 Payer: Ronda Payer Identifier: [id number] Member Number: [id number] Group Number: [id number] Subscriber Identifier: [id number] Relationship to Subscriber: self Coverage Type: NA Coverage Verification Date: 25 Telecom: NA Address: [facility] [address] [place] [address]
--- OUTSIDE RECORDS SUMMARY | 2025-07-03 06:01 | XMS_ITS | Continuity of Care Document ---
Author Organization [facility] Address [address] [place] [address] Phone Care Team Providers Care Shirt Ironer Name Role Phone Dasia Velez MD Primary Care Provider Dasia Velez MD Attending Provider [phone] Care Teams Patient Care Team Team Status: Active Member Role/Relationship Status Dates Dasia Velez MD Primary Care Provider Active Patient Care Team Team Status: Inactive Member Role/Relationship Status Dates Dasia Velez MD Primary Care Provider Active Start: July 03, 2025 End: July 03, 2025Dasia Velez MDAttending ProviderActiveStart: July 03, 2025 End: July 03, 2025 Chief Complaint and Reason for Visit Chief Complaint Admit Date BP Issues-HIGH RISK July 03, 2025 9 :15am Allergies, Adverse Reactions, Alerts Allergen Type Severity Reaction Last Updated Verified Status metformin Allergy Unknown Abdominal Pain, diarrhea July 03, 2025 9:30am Yes Active vancomycin Allergy Unknown Unknown Reaction July 03, 2025 9:30am Yes Active Social History Smoking Status Status Start Date End Date Date of Observa tion Ex-smoker (finding) May 01, 2024 11:25am Observation Status Observation Response Date of Response Legal Sex Male (finding) Sex Assigned At BirthMaleFebruary 1960 Family History Relationship Condition Age at Onset Recorded Date/T evangelina Not Specified No pertinent family history Unknown fatherDeceasedUnknownHeart diseaseUnknown Problems Active Problems Problem Diagnosis/Recorded Date Onset Date Status C omments BPH (benign prostatic hyperplasia) October 11, 2024 11:17am Unknown Active Hemosiderin pigmentation of lower extremity due to varicose veinsAugust 2023 9:50amUnknownActiveWound of footAugust 2023 9:49amUnknownActive Bilateral foot woundsBilateral lower extremity edemaAugust 2023 9:50am UnknownActiveOSA (obstructive sleep apnea)August 07, 2024 11:09amUnknown ActiveScreening PSA (prostate specific antigen)November 30, 2023 9:14amUnknown ActiveScreening for colon cancerMarch 2023 9:11amUnknownActiveSymptomatic varicose veins of both lower extremitiesAugust 2023 9:53amUnknownActive Type 2 diabetes mellitus with diabetic polyneuropathyMarch 2023 1:53pm April 20, 2018ActiveTesticular hypofunctionFebruary 2024 11:17amUnknown ActiveSleep apneaSeptember 2018 3:31pmUnknownActiveDiabetes 1.5, managed as type 2September 2018 4:33pmUnknownActiveFatigueJune 2023 11:57am UnknownActiveDiabetesSeptember 2018 3:32pmUnknownActiveMorbid obesity May 14, 2019 3:31pmUnknownActiveType II diabetes mellitusMarch 2023 1:54pmUnknownActiveCAD (coronary artery disease)May 13, 2019 4:32pm UnknownActiveDiabetic foot ulcerSeptember 2023 4:36pmUnknownActiveErectile disorderFebruary 2024 11:17amUnknownActiveAngina pectoris, crescendo May 14, 2019 3:31pmUnknownActiveClaudicationJune 2023 2:03pmUnknown ActiveHyperlipidemiaSeptember 2018 3:31pmUnknownActiveHypogonadism in male October 11, 2024 11:17amUnknownActiveChest pressureSeptember 2018 4:32pm UnknownActiveSmall bowel obstructionDecember 2023 11:09amUnknownActiveGERD (gastroesophageal reflux disease)November 30, 2023 9:10amUnknownActiveAbdominal painMay 2019 11:06amUnknownActiveHypertensionSeptember 2018 4:32pm UnknownActiveLow testosterone in maleFebruary 2024 11:17amUnknownActive ObesityAugust 2023 9:50amUnknownActive Medications Medication Status Dose Units Route Directions Qty Days Refills S tart Date Stop Date End Date Reason(s) Instructions Adherence Lisinopril 5 mg tablet Discontinued 5 MG PO Twic e daily 180 1February 2023 10:49amNovember 2023 2:57pmDiabetes mellitus Hypertension Type 2 diabetes mellitus without complications Essential (primary) hypertensionGlipizide 10 mg tablet extended release 24hr Discontinued0.ROUTE.PNELMJU141Gjcib 2023 4:00pmJune 2023 8:33amTAKE 1 TABLET BY MOUTH EVERY DAYLancets (Freestyle Lancets) 28 gauge miscDiscontinued0 .Tcrea2101Szhtj 2023 12:00amMarch 2023 12:22pmAs directedLancets (Freestyle Lancets) 28 gauge miscActive0.ROUTE.INCNCGT9058Skaph 2023 12:22pmUSE DIRECTED EVERY DAYOmeprazole 40 mg capsule,delayed release(DR/EC) Discontinued0.ROUTE.XFHISEY216Asthh 2023 12:09pmMarch 2023 9:18am TAKE 1 CAPSULE BY MOUTH EVERY DAY BEFORE A MEALPioglitazone 30 mg tablet Discontinued0.ROUTE.TPGJFNH736Mxwpw 2023 11:55amJune 2023 9:24amTAKE 1 TABLET BY MOUTH EVERY DAY FOR 30 DAYSCitalopram 40 mg tabletDiscontinued0.ROUTE .ZBIIJEW077Shra 4th, 2024 3:33pmJune 2023 4:28pmTAKE 1 TABLET BY MOUTH EVERY DAYPioglitazone 30 mg tabletDiscontinued0.ROUTE.RFJBHJA113Fcio 2023 9:24amJune 2023 4:28pmTAKE 1 TABLET BY MOUTH EVERY DAY FOR 30 DAYS Hyoscyamine Sulfate 0.375 mg tablet extended release 12 hrDiscontinued0.375MGPO Every 12 hoursJune 2023 12:00amJuly 2023 11:05amGlipizide 10 mg tablet extended release 32drFubsxiqbtywb1.ROUTE.DGFGGQQ063Kwbf 2023 8:33am February 24, 2024 4:28pmTAKE 1 TABLET BY MOUTH EVERY DAYBlood Sugar Diagnostic stripActive0.Vhyvl5378Ndct 20th, 2024 12:00amType 2 diabetes mellitus Type 2 diabetes mellitus without complicationsto test blood sugar once daily Atorvastatin 20 mg gprsteOzijebqjzhqn49UZBJGgffo042Jjqk 21st, 2024 12:00am June 09, 2024 8:34amHyoscyamine Sulfate (Levsin) 0.125 mg tabletDiscontinued 0.125MGPODaily as needed for vdrbabeov529Jkof 2023 12:00amAugu2023 11:02amHyoscyamine Sulfate 0.375 mg tablet extended release 12 hr Discontinued0.375MGPOTwice khcfh019Omrnnj2023 11:34amOctober 2023 8:19amAtorvastatin 20 mg tabletActive0.ROUTE.LQSDLTK704Cxlgzam 2023 8:34am TAKE ONE TABLET BY MOUTH DAILYComplies with drug therapyCarvedilol 12.5 mg tabletActive0.ROUTE.ARJNRPM0515Xzrcqsz 2023 8:34amTAKE ONE TABLET BY MOUTH TWICE A DAYComplies with drug therapyHyoscyamine Sulfate 0.375 mg tablet extended release 12 hrDiscontinued0.ROUTE.ZXRHTDK335Iggnrxm 2023 8:19am October 12, 2024 1:45pmTAKE ONE TABLET BY MOUTH TWICE A DAYLisinopril 5 mg cpeepsRqmzzcfumxza2RWJANzfrh avsyv0080Bgispqyh 12th, 2024 2:57pmJuly 2024 3:44pmDiabetes mellitus Hypertension Type 2 diabetes mellitus without complications Essential (primary) hypertensionGlipizide 10 mg tablet extended release 24hr Discontinued0.ROUTE.TBAPMUY024Aodxmcnc 2023 10:38pmFebruary 2024 1:45pmTAKE 1 TABLET BY MOUTH EVERY DAYOmeprazole 40 mg capsule,delayed release(DR/EC)Discontinued0.ROUTE.DKQHDRA09543Dkfgrgyu 2023 10:38pmMay 2024 2:25pmTAKE 1 CAPSULE BY MOUTH EVERY DAY BEFORE A MEALAmlodipine 5 mg ofpnggPhbvgkfrfqxp7ULSXRldvf51812Fshvbjmm 2023 10:38pmMay 2024 2:25pm Citalopram 40 mg tabletDiscontinued0.ROUTE.FUVYOJZ827Dbzflwrr 2023 10:38pm January 09, 2025 2:25pmTAKE 1 TABLET BY MOUTH EVERY DAYPioglitazone 30 mg tablet Mnjqzqprujwa16EPYDFetqo678Stifuwxe 2023 1:00amDecember 2023 1:37pm Pioglitazone 30 mg dgcufiWfdxtzxelymy04TMPAWwapd425Sclfpsjc 2023 1:37pmMay 2024 3:51pmGlipizide 10 mg tablet extended release 04bpJngmntbrskyc8.ROUTE .NRIAJOP072Bidpsgbi 2024 1:44pmMay 2024 3:51pmTAKE 1 TABLET BY MOUTH EVERY DAYHyoscyamine Sulfate 0.375 mg tablet extended release 12 hrDiscontinued0 .ROUTE.GSOWIMJ916Nkakaryy 2024 1:44pmApril 2024 9:01amTAKE ONE TABLET BY MOUTH TWICE A DAYHyoscyamine Sulfate 0.375 mg tablet extended release 12 hr Discontinued0.ROUTE.RVVGDZH319Chxjt 2024 9:01amJuly 2024 4:26pmTAKE ONE TABLET BY MOUTH TWICE A DAYOmeprazole 40 mg capsule,delayed release(DR/EC) Active0.ROUTE.CEPZKRG367Vzr2024 2:25pmTAKE 1 CAPSULE BY MOUTH EVERY DAY BEFORE MEALSComplies with drug therapyAmlodipine 5 mg tabletActive0.ROUTE .OVRUQQP659Pzh 6th, 2025 2:25pmTAKE 1 TABLET BY MOUTH EVERY DAYComplies with drug therapyCitalopram 40 mg tabletDiscontinued0.ROUTE.CBHJZRF940Kvc2024 2:25pmOctober 2024 12:09pmTAKE 1 TABLET BY MOUTH EVERY DAYPioglitazone 30 mg tabletDiscontinued0.ROUTE.ZGIHALA980Onx2024 3:51pmAugust 2024 9:33amTAKE 1 TABLET BY MOUTH EVERY DAYGlipizide 10 mg tablet extended release 79koGbouvkabmxgk3.ROUTE.HOIVGTV830Cwc 2024 3:51pmAugust 2024 9:33am TAKE 1 TABLET BY MOUTH EVERY DAYHyoscyamine Sulfate 0.375 mg tablet extended release 12 hrDiscontinued0.ROUTE.VMEFOZL620Mgee 2024 4:26pmOctober 2024 10:11amTAKE ONE TABLET BY MOUTH TWICE A DAYLisinopril 5 mg tlohavTipigk0RK POTwice bcnga9162Kbwp 2024 3:44pmDiabetes mellitus Hypertension Type 2 diabetes mellitus without complications Essential (primary) hypertensionComplies with drug therapyPioglitazone 30 mg tabletActive0.ROUTE.PILPFQN010Iksypf 11th, 2025 9:33amTAKE 1 TABLET BY MOUTH EVERY DAYComplies with drug therapyGlipizide 10 mg tablet extended release 24hr Active0.ROUTE.KZEBCZF622Zvdzgl 11th, 2025 9:33amTAKE 1 TABLET BY MOUTH EVERY DAY Complies with drug therapyCitalopram 20 mg tabletActive0.ROUTE.ZKNMIHK199Nnmvmsi 2024 12:09pmTAKE 1 TABLET BY MOUTH EVERY DAYComplies with drug therapy Hyoscyamine Sulfate 0.375 mg tablet extended release 12 hrActive0.ROUTE.COMPLEX 602October 2024 10:11amTAKE ONE TABLET BY MOUTH TWICE A DAYComplies with drug therapyCarvedilol 12.5 mg yrxyseNblbdkjexyyd4MFFZWBepkh dailySeptember 2018 12:002023 4:28pmCitalopram 10 mg eojlxoXxrdwdhdrghm3FOOWM BedtimeSept2018 12:00amFebruary 08, 2024 3:21pmGlipizide 10 mg tablet Znqihsgijyiu8MLPTOLkaciWfoutroge 7th, 2019 12:00amMarch 2023 4:00pm Lisinopril 5 mg pguajhSkdtbqffyqnd1OEZNWloox dailySept2018 12:00am October 20, 2023 10:50amAspirin 81 mg Tablet,ObcdladtPcvxzqzgobov643QZYRLkojv May 13, 2019 12:002023 4:28pmAmlodipine 5 mg Tablet Vialbfrdtkrm7HXLMZxjsi268899Engonsmuv 2018 12:00amJune 2023 4:28pm Testosterone Cypionate 200 mg/mL blpInajki548XJWUGPXUE 2 WEEKSOct2023 12:00amComplies with drug therapyOmeprazole 40 mg capsule,delayed release(DR/EC) Ojnmsxanaeya89EDPJVirupKvdqm 2023 12:00amMarch 2023 12:09pm Pioglitazone 30 mg clqesgVjkbrebbgcld09EOIAGcjzjAqrbt 2023 12:00amApril 2023 11:55amOmeprazole 40 mg capsule,delayed release(DR/EC)Discontinued0 .ROUTE.GRFYWDM07490Pbwnp 2023 9:17amJune 2023 4:28pmTAKE 1 CAPSULE BY MOUTH EVERY DAY BEFORE A MEALCitalopram 40 mg cjdkyoThehcgnwuwpg70GBWFWqxpl February 08, 2024 12:00amJun2023 3:33pmHyoscyamine Sulfate 0.375 mg tablet extended release 12 hrDiscontinued0.375MGPOTwice dailyAugust 2023 12:00am April 17, 2024 11:34amBlood Sugar Diagnostic stripActive0.RouteJun2023 12:00amAs directedSulfamethoxazole-Trimethoprim 800-160 mg tablet Qrfjrrocsfxs4LVRLMVcody ejeer888Gaon 2023 12:00amAugust 2023 9:16am Amlodipine 5 mg wtqnnfGdyyrjlgkozy3DFFIKqrvf15082Wgyn 20th, 2024 4:26pmDecember 2023 10:39pmAspirin 81 mg tablet,trskfoaqWkqahk267OKHDOmtid4452Gngu 20th, 2024 4:26pmComplies with drug therapyCarvedilol 12.5 mg jzymvjSurihwamjssv15.5MG POTwice ysfhe5102Fmpw2023 4:27pmOctober 2023 8:34amCitalopram 40 mg tabletDiscontinued0.ROUTE.QJXUVVB313WyuqFebruary 24, 2024 4:27pmDecember 2023 10:39pmTAKE 1 TABLET BY MOUTH EVERY DAYGlipizide 10 mg tablet extended release 94hsHxkhwksviruq8.ROUTE.IPZIZSF468Buxz 2023 4:27pmDecember 2023 10:39pmTAKE 1 TABLET BY MOUTH EVERY DAYOmeprazole 40 mg capsule,delayed release(DR/EC)Discontinued0.ROUTE.RMSKFUQ18346Ujcg 2023 4:27pmDecember 2023 10:39pmTAKE 1 CAPSULE BY MOUTH EVERY DAY BEFORE A MEALPioglitazone 30 mg tabletDiscontinued0.ROUTE.CWAQPVF246Axja 2023 4:27pmAugust 2023 9:17amTAKE 1 TABLET BY MOUTH EVERY DAY FOR 30 DAYSTirzepatide (Mounjaro) 2.5 mg/0.5 mL pen injectorDiscontinued2.5MGSUBCUTevery drbr3867Pxcxpu 26th, 2024 12:00amOctharrison [facility] 2023 9:33ampatient will have voucherTirzepatide (Mounjaro) 5 mg/0.5 mL pen orqqwwooBnfeiabpxdpp9SDWYCWUHuavlb kqoa25Pzmuof 26th, 2024 12:00am August 07, 2024 10:18amto follow 2.5 mg (voucher)Empagliflozin (Jardiance) 25 mg sgxmxxQgmwgn53KDKWDcfzg671Hwpizat 2024 12:00amComplies with drug therapy Immunizations Immunization Event Date Not Given Reason Dose Number Eeler Lot Number Reason(s) Given Vaccine Information Statement (VIS) Detail Administration Location COVID-19 mRNA, Comirnatpaulette ([employer]) November 12 COVID-19 mRNA, Comirnaty ([employer])December 01OVID-19 mRNA, Comirnaty ([employer])July 04, 2021 Vital Signs Vital Reading Result Reference Range Collection Date/Time Height 67.5 [in_i] July 03, 2025 9:35ytAqghtm042.67 kgOcth[facility] 2024 9:26amHeart Rate80 /gmh25-195Poechkl 2024 9:26amBP Ognozrne096 mm[Hg]100-140[facility] 2024 9:26amBP Whggfjbyu60 mm[Hg]60-100[facility] 2024 9:26amBMI (Body Mass Index)52.6 kg/l0Ubhzoxi2024 9:26am Advance Directives Advance Directive Response Recorded Date/ Time Advance Directives No May 10:55am Insurance Providers Guarantor Chu Correa Address [address] [address]Cqopnbb Info.Home Phone: Coverage Status Update:2024 Payer Group Member ID Coverage Type Subscriber Relationship to Subscriber Effective Date Expiration Date Ronda MEJIA [id number] J Salyer Id: [id number] [address] [address] Home Phone: Email: declined 11.4.19[facility] [place]: [id number] J Salyer Id: [id number] [address] [facility] [address] Home Phone: Email: declined 11.4.19Self Encounters Encounter Location(s) Arrival/Admit Date Discharge/Departure Date Discharge/Departure Disposition Provider(s) Departed Physician/ Provider Office Visit -[facility] July 03, 2025 9:15am July 03, 2025 10:00am Discharged to home care or self care (routine discharge) Dasia Velez MD
--- OUTSIDE RECORDS SUMMARY | 2025-07-04 06:33 | XMS_ITS | Clinical Summary ---
Author Organization [facility] Healthcare Address [address] [place] [place] [address] Care Team Providers Care Forensic Ballistics Expert Name Role Phone Dasia Velez MD Primary Care Provider [phone] Allergies Active AllergyReactionsCriticalityNoted DateCommentsMetforminDiarrhea,GI ehbtujqivws88/08/2024 Other Reaction(s): Abdominal Pain, diarrhea, Stomach cramps UpwobnadsrCzllCch78/26/2024 Medications MedicationSigDispense QuantityRefillsLast FilledStart DateEnd DateStatus amLODIPine (Norvasc) 5 MG tablet Daily02/24/2024ctive aspirin 81 MG chewable tablet Daily02/24/2024ctive atorvastatin (Lipitor) 20 MG tablet Daily02/25/2024ctive carvedilol (Coreg) 12.5 MG tablet Twice daily02/24/2024ctive citalopram (CeleXA) 40 MG tablet .VPMXIKC9002/24/2024ctive glipiZIDE XL (Glucotrol XL) 10 MG 24 hr tablet .HAOAJYS5202/24/2024ctive hyoscyamine ER (Levbid) 0.375 MG 12 hr tablet Take 375 mcg by mouth in the morning and 375 mcg before bedtime.Active lisinopril 5 MG tablet Twice daily10/20/2023ctive omeprazole (PriLOSEC) [address] capsule .YYLNFEH4702/24/2024ctive Active Problems No known active problems Social History Tobacco UseTypesPacks/DayYears UsedDateSmoking Tobacco: KmyypfMvknwuplfx969.2 Started: 05/04/2004Smokeless Tobacco: Never Tobacco Cessation:Counseling Given: Yes Alcohol UseStandard Drinks/WeekCommentsDefer0 (1 standard drink = 0.6 oz pure alcohol)Sex and Gender InformationValueDate RecordedSex Assigned at BirthNot on fileLegal RckCrzc1311/18/2022 6:38 PM EDTGender IdentityNot on fileSexual OrientationNot on file Last Filed Vital Signs Vital SignReadingTime TakenCommentsBlood Hzewvxky914/8211 10:59 AM EST Oketb4477 10:59 AM ESTTemperature--Respiratory Yune7145 1:46 PM EDTOxygen Saturation--Inhaled Oxygen Concentration--Ectdgu154 kg (330 lb) 07/13/2024 10:59 AM OQQYwfrnb857.2 cm (5' 7 )07/13/2024 10:59 AM ESTBody Mass Index51.6907/13/2024 10:59 AM EST Plan of Treatment Not on file Insurance Care Teams Team MemberRelationshipSpecialtyStart DateEnd Date Dasia Velez MD PCP - GeneralFamily Medicine05/04/24
--- OUTSIDE RECORDS SUMMARY | 2025-07-04 06:33 | XMS_ITS | Clinical Summary ---
Author Organization [facility] Address [address] [place] [address] Care Team Providers Care Parts Data Writer Name Role Phone Unavailable Primary Care Provider Unavailabl e Social History Tobacco UseTypesPacks/DayYears UsedDateSmoking Tobacco: Never AssessedUT Safety & EnvironmentAnswerDate RecordedFear of Current or Ex-PartnerNot on file 10/28/2023Emotionally AbusedNot on file10/28/2023hysically AbusedNot on file 10/28/2023Sexually AbusedNot on file10/28/2023hysically or Sexually AbusedNot on file10/28/2023Sex and Gender InformationValueDate RecordedSex Assigned at BirthNot on fileLegal MxtQwcw6603/04/2022 10:53 PM EDTGender IdentityNot on file Sexual OrientationNot on file Plan of Treatment Not on file
--- OUTSIDE RECORDS SUMMARY | 2025-07-04 06:33 | XMS_ITS | Clinical Summary ---
Author Organization [facility] Address [address] [place], [place] [address] Care Team Providers Care Detective Bowling Alley Name Role Phone Unavailable Primary Care Provider Unavailabl e Social History Tobacco UseTypesPacks/DayYears UsedDateSmoking Tobacco: Never AssessedSex and Gender InformationValueDate RecordedSex Assigned at BirthNot on fileLegal Sex Male08/07/2012 9:09 AM ESTGender IdentityNot on fileSexual OrientationNot on file Plan of Treatment Not on file
--- OUTSIDE RECORDS SUMMARY | 2025-07-04 06:33 | XMS_ITS | CCD ---
Author Organization [facility] Care Team Providers Care Crm Marketing Executive Name Role Phone UNKNOWN, PROVIDER Unavailable Unavailable LUIS JEFFREY Unavailable Unavailable LUIS JEFFREY Primary Care Physician [phone] Unavailable Unavailable Luis Jeffrey Unavailable Luis Jeffrey Unavailable DR LUIS JEFFREY Admitting Unavailable JEFFREY, DR LUIS Blakely Attending Unavailable JEFFREY, DR LUIS Blakely Consulting Unavailable WOJCIECH, DR [...] Unavailable NAM CANO Admitting Unavailable WOJCIECH, DR LIUS Blakely Primary Care Unavailable NAM CANO Attending Unavailable Gabino Deluca Attending Unavailable Gabino Deluca Attending Unavailable Gabino Deluca Referring Unavailable Jeffrey, Dr. Luis Kirbybeth Primary Care Unav ailable LUIS JEFFREY Attending Unavailable LUIS JEFFREY Admitting Unavailable Lue, Lety M. Attending Unavailable Lue, Lety M. Admitting Unavailable JIMMY, GLADIS MCDONALD E Attending Unavailab le Lue, Lety M. Attending Unavailable Lue, Lety M. Attending Unavailable Lue, Lety M. Attending Unavailable Lue, Lety M. Attending Unavailable Lue, Lety M. Attending Unavailable Lue, Lety M. Attending Unavailable Lue, Lety M. Attending Unavailable Lue, Lety M. Attending Unavailable Lue, Lety M. Attending Unavailable Lue, Lety M. Attending Unavailable Lue, Lety M. Attending Unavailable JIMMY, GLADIS MCDONALD E Attending Unavailab le JIMMY, GLADIS JEMIMA E Attending Unavailab le JIMMY, GLADIS JEMIMA E Attending Unavailab le JIMMY, GLADIS JEMIMA E Attending Unavailab le Lue, Lety M. Attending Unavailable Lue, Lety M. Attending Unavailable Lue, Lety M. Attending Unavailable Lue, Lety M. Attending Unavailable Lue, Lety M. Admitting Unavailable JEFFREY, LUIS Admitting Unavailable LUIS JEFFREY Attending Unavailable Lue, Lety M. Attending Unavailable Lue, Lety M. Admitting Unavailable Lue, Lety M. Attending Unavailable JIMMY, GLADIS MCDONALD E Attending Unavailab le Lue, Lety M. [...] Unavailable GRAY CANCINO Attending Unavailable GRAY CANCINO A Attending Unavailable GRAY CANCINO A Attending Unavailable GRAY CANCINO Attending Unavailable GRAY CANCINO A Attending Unavailable GRAY CANCINO Attending Unavailable LUIS JEFFREY Referring Unavailable LUIS JEFFREY Primary Care Unavailable LUIS JEFFREY Referring Unavailable JEFFREY, LUIS E Primary Care [...] Attending Unavailable Lue, Lety M. Attending Unavailable Marlee, Do Attending Unavailable Lue, Lety M. Attending Unavailable Lue, Lety M. Attending Unavailable Gurwinder SILVEIRA Attending Unavailable Marlee, Do Attending Unavailable Marlee, Do Attending Unavailable Marlee, Do Attending Unavailable Lue, Lety M. Attending Unavailable [...] Attending Unavailable Lue, Elty M. Attending Unavailable Marlee, Do Attending Unavailable Jeffrey MD Luis E Primary Care Provider [phone] Luis Jeffrey MD Attending Provider Allergies Allergy ClassificationReported Allergen(s)Allergy TypeDate of OnsetReaction(s) FacilitymetFORMIN (3 sources)metFORMIN; Translations: [metformin]Drug AllergyStomach cramps (finding), Diarrhea (finding)[facility] (20 sources)metFORMIN; Translations: [metformin]Drug [id number] cramps (finding), Diarrhea (finding), Diarrhea, GI intolerance, Anaphylaxis [facility] (20 sources)VancomycinDrug [id number]cksville [facility] (1 source)metFORMINDrug AllergyThe [facility] (1 source)VancomycinDrug [id number] [facility] (5 sources)Allergies ReconciledPropensity to adverse zruyshumu62-79-3174Qxehmbb [employer] [employer] Other (5 sources)patient allergy list reviewed by nurse or physiciaPropensity to adverse mzgnvqkys53-50-0887Prtmmiu:[facility] Other Medications Current Medications MedicationDrug Class(es)DatesSig (Normalized)Sig (Original)amLODIPine 5 mg oral tablet (20 sources)Dihydropyridine Calcium Channel BlockerStart: 85-77-1019pjvy 1 tablet by mouth once dailyAmlodipine 5 mg tablet Active 0 .ROUTE .COMPLEX 90 January 09, 2025 2:25pm TAKE 1 TABLET BY MOUTH EVERY DAY Complies with drug therapy Start: 05-15-2019 End: 31-81-1413rrjd 1 tablet by mouth once dailyAmlodipine 5 mg tablet Discontinued 5 MG PO Daily 90 90 February 24, 2024 4:26pm August 28, 2024 10:39pmascorbic acid 250 mg oral tablet (3 sources)Vitamin CStart: 53-11-6362gkxe 1 mg by mouth once dailyVitamin C 250 mg oral tablet mg tab(s), Oral, Daily, Refills(s) 0 Start Date: 07/03/21 Status: Orderedaspirin 81 mg chewable tablet (20 sources)Platelet Aggregation Inhibitor, Nonsteroidal Anti-inflammatory Drug Start: 02-09-5037mbma 2 tablets by mouth once dailyAspirin 81 mg tablet,chewable Active 162 MG PO Daily 180 0 February 24, 2024 4:26pm Complies with drug therapy Start: 40-59-1350dohs 162 mg by mouth once dailyAspirin Active 162 MG PO Daily 180 February 24, 2024 4:26pmStart: 99-02-6837crjzqzd 81 MG chewable tablet Daily 02/24/2024 ActiveStart: 05-13-2019 End: 86-98-1371efzh 2 tablets by mouth once dailyAspirin 81 mg Tablet,Chewable Discontinued 162 MG PO Daily May 13, 2019 12:00am February 24, 2024 4:28pm Start: 05-13-2019 End: 82-08-1431qqvq 162 mg by mouth once dailyAspirin Discontinued 162 MG PO Daily May 13, 2019 12:00am February 24, 2024 4:28pmtake 2 tablets by mouth every twenty-four hoursAspirin 81 MG 2 tablets Orally Once a day Activetake 2 tablets by mouth once dailyAspirin EC Low Dose 81 MG Oral Tablet Delayed Release TAKE 2 TABLET Daily Quantity: 90 Refills: 3 Ordered: 22-Dec-2022 Gabino Deluca DO Activebiotin 1 mg oral tablet (20 sources)Start: 09-24-7545byoi 1 tablet by mouth once dailybiotin 1000 mcg oral tablet 1,000 mcg = 1 tab(s), Oral, Daily, # 30 tab(s), Refills(s) 0 Start Date: 07/03/21 Status: OrderedBlood Sugar Diagnostic (7 sources)Start: 06-38-5681Auplp Sugar Diagnostic Active 0 .Route 100 February 24, 2024 12:00am to test blood sugar once dailyStart: 59-15-4811Okhxj Sugar Diagnostic Active 0 .Route February 23, 2024 12:00am As directedcarvedilol 12.5 mg oral tablet (20 sources)alpha-Adrenergic Donovan, beta-Adrenergic BlockerStart: 06-09-2024 take 1 tablet by mouth twice dailyCarvedilol 12.5 mg tablet Active 0 .ROUTE .COMPLEX 180 1 June 09, 2024 8:34am TAKE ONE TABLET BY MOUTH TWICE A DAY Complies with drug therapyStart: 05-13-2019 End: 49-51-2989esrb 1 tablet by mouth twice dailyCarvedilol 12.5 mg tablet Discontinued 12.5 MG PO Twice daily 180 0 February 24, 2024 4:27pm June 09, 2024 8:34amcitalopram 20 mg oral tablet (20 sources)Serotonin Reuptake InhibitorStart: 57-28-0924vxla 1 tablet by mouth once dailyCitalopram 20 mg tablet Active 0 .ROUTE .COMPLEX 90 3 June 06, 2025 12:09pm TAKE 1 TABLET BY MOUTH EVERY DAY Complies with drug therapyStart: 07-26-2024 End: 73-74-1710mpla 40 mg by mouth once daily40 mg, oral, Daily, First dose on Wed07/26/24 at 0930, Look-alike/sound-alike medication - verify indication for use.Start: 88-91-0987zwlzpiuqkg (CeleXA) 40 MG tablet .COMPLEX 02/24/2024 Active Start: 02-08-2024 End: 42-50-2504raow 1 tablet by mouth once dailyCitalopram 40 mg tablet Discontinued 0 .ROUTE .COMPLEX 90 1 February 24, 2024 4:27pm August 28, 2024 10:39pm TAKE 1 TABLET BY MOUTH EVERY DAYStart: 02-08-2024 End: 04-12-1611adzr 1 tablet by mouth once dailyCitalopram 40 mg tablet Discontinued 40 MG PO Daily February 08, 2024 12:00am February 08, 2024 3:33pmStart: 15-37-0822hkqxifiral Oral, Daily, Refills(s) 0 Start Date: 07/03/21 Status: Ordered Repeat number: 1Start: 11-32-3983qhykpigtxi Oral, Daily, Refills(s) 0 Start Date: 07/03/21 Status: OrderedStart: 05-13-2019 End: 23-65-2038usta 1 tablet by mouth at bedtimeCitalopram 10 mg tablet Discontinued 1 TAB PO Bedtime May 13, 2019 12:00am February 08, 2024 3:21pm Start: 05-13-2019 End: 02-87-7787vipl 1 tablet by mouth at bedtimeCitalopram Discontinued 1 TAB PO Bedtime May 13, 2019 12:00am February 08, 2024 3:21pmempagliflozin 25 mg oral tablet (20 sources)Sodium-Glucose Cotransporter 2 InhibitorStart: 91-28-9442mnxz 1 tablet by mouth once dailyEmpagliflozin (Jardiance) 25 mg tablet Active 25 MG PO Daily 30 2 July 03, 2025 12:00am Complies with drug therapyStart: 49-87-1651Gmymshesz 25 mg oral tablet Refills(s) 0 Start Date: 06/09/23 Status: Orderedertugliflozin 15 mg oral tablet (20 sources)Start: 02-97-0651vilz 1 mg by mouth once daily in the morning Steglatro 15 mg oral tablet mg tab(s), Oral, qAM, Refills(s) 0 Start Date: 07/03/21 Status: OrderedRepeat number: 112 hr hyoscyamine sulfate 0.375 mg extended release oral tablet (20 sources)Start: 06-23-2024 End: 22-29-6127aelk 1 tablet by mouth twice dailyHyoscyamine Sulfate 0.375 mg tablet extended release 12 hr Active 0 .ROUTE .COMPLEX 60 2 June 13, 2025 10:11am TAKE ONE TABLET BY MOUTH TWICE A DAY Complies with drug therapyStart: 04-17-2024 End: 72-38-1699nwsl 1 tablet by mouth twice dailyHyoscyamine Sulfate 0.375 mg tablet extended release 12 hr Discontinued 0.375 MG PO Twice daily 60 1 April 17, 2024 11:34am June 23, 2024 8:19amStart: 03-22-2024 End: 91-56-2912wipb 1 tablet by mouth once daily as neededHyoscyamine Sulfate (Levsin) 0.125 mg tablet Discontinued 0.125 MG PO Daily as needed for dyspepsia 30 0 March 22, 2024 12:00am April 17, 2024 11:02amStart: 12-03-2020 End: 50-24-0924oyjm 1 tablet by mouth every twelve hoursHyoscyamine Sulfate 0.375 mg tablet extended release 12 hr Discontinued 0.375 MG PO Every 12 hours [facility] 2023 12:00am March 22, 2024 11:05amtake 1 tablet by mouth every twelve hours in the morninghyoscyamine ER (Levbid) 0.375 MG 12 hr tablet Take 375 mcg by mouth in the morning and 375 mcg before bedtime. Activelisinopril 5 mg oral tablet (20 sources)Angiotensin Converting Enzyme InhibitorStart: 07-03-2021 End: 33-74-5658klxp 1 mg by mouth once dailylisinopril 5 mg Tab mg tab(s), Oral, Daily, Refills(s) 0 Start Date: 07/03/21 Status: Ordered Repeat number: 1Start: 05-13-2019 End: 17-80-8115qpqz 1 tablet by mouth twice dailyLisinopril 5 mg tablet Active 5 MG PO Twice daily 180 1 April 02, 2025 3:44pm Diabetes mellitus Hypertension Type 2 diabetes mellitus without complications Essential (primary) hypertension Complies with drug therapyomeprazole 40 mg Cap-DR (3 sources)Start: 64-17-2290emrq 1 mg by mouth once dailyomeprazole 40 mg Cap-DR mg cap(s), Oral, Daily, Refills(s) 0 Start Date: 07/03/21 Status: OrderedOne Touch Glucometer (8 sources)Start: 23-75-4687Cqe Touch Glucometer use as directed Nov, Activepioglitazone 30 mg oral tablet (20 sources)Peroxisome Proliferator Receptor alpha Agonist, Peroxisome Proliferator Receptor gamma Agonist, ThiazolidinedioneStart: 01-16-2025 End: 99-47-5898zxur 1 tablet by mouth once dailyPioglitazone 30 mg tablet Active 0 .ROUTE .COMPLEX 90 0 April 16, 2025 9:33am TAKE 1 TABLET BY MOUTH EVERY DAY Complies with drug therapyStart: 03-08-2024 End: 07-99-3937kger 1 tablet by mouth once dailyPioglitazone 30 mg tablet Discontinued 30 MG PO Daily 90 0 September 04, 2024 1:37pm January 16, 2025 3:51pmStart: 12-06-2023 End: 81-74-9494jzly 1 tablet by mouth once dailyPioglitazone 30 mg tablet Discontinued 0 .ROUTE .COMPLEX 90 1 February 24, 2024 4:27pm April 17, 2024 9:17am TAKE 1 TABLET BY MOUTH EVERY DAY FOR 30 DAYSStart: 12-06-2023 End: 07-89-2751zbfs 1 tablet by mouth once dailyPioglitazone 30 mg tablet Discontinued 30 MG PO Daily December 06, 2023 12:00am December 06, 2023 11:55am Start: 09-44-4645klkn 1 tablet by mouth every twenty-four hoursActos 15 MG 1 tablet Orally Once a day for 30 days Dec, Active1 ml testosterone cypionate 200 mg/ml injection (20 sources)AndrogenStart: 25-78-5388ozqneh 200 mg by intramuscular injection every other weekTestosterone Cypionate 200 mg/mL oil Active 200 MG IM EVERY 2 WEEKS June 14, 2024 12:00am Complies with drug therapyStart: 06-14-2024 inject 200 mg by intramuscular injection every other weekTestosterone Cypionate Active 200 MG IM EVERY 2 WEEKS June 14, 2024 12:00amStart: 49-91-0958autqri 200 mg by intramuscular injection every other weekDepo-Testosterone 200 mg/mL intramuscular solution 200 mg, IntraMuscular, q2wk, # 10 mL, Refills(s)5, Pharmacy: [facility]/pharmacy #[id number], 174, cm, 09/15/23 8:08:00 EST, Height/Length Dosing, 143, kg, 09/15/23 8:08:00 EST, Weight Dosing Start Date: 01/25/24 Status: OrderedStart: 51-25-1861nzkbwf 200 mg by intramuscular injection every other weekDepo-Testosterone 200 mg/mL intramuscular solution 200 mg, IntraMuscular, q2wk, # 10 mL, Refills(s)5, Pharmacy: [facility]/pharmacy #[id number], 174, cm, 06/09/23 7:58:00 EDT, Height/Length Dosing, 143, kg, 06/09/23 7:58:00 EDT, Weight Dosing Start Date: 06/09/23 Status: Orderedtestosterone cypionate 200 mg/mL IM Erin (20 sources)Start: 71-66-4051zkkaji 150 mg by intramuscular injection every other weektestosterone cypionate 200 mg/mL IM Erin 150 mg, IntraMuscular, q2wk, # 10 mL, Refills(s) 5, Pharmacy: [facility]/pharmacy #[id number], 174, cm, 05/02/25 11:10:00 EDT, Height/Length Dosing, 154.4, kg, 05/02/25 11:10:00 EDT, Weight Dosing Start Date: 05/02/25 Status: Ordered Quantity: 10.0 Unit: mL Repeat number: 6 Indications: Testicular hypofunction;Start: 80-77-7661uaobhv 150 mg by intramuscular injection every other weektestosterone cypionate 200 mg/mL IM Erin 150 mg, IntraMuscular, q2wk, # 10 mL, Refills(s) 3, Pharmacy: [facility]/pharmacy #[id number], 174, cm, 10/26/24 9:18:00 EST, Height/Length Dosing, 147, kg, 10/26/24 9:18:00 EST, Weight Dosing Start Date: 11/08/24 Status: Ordered Quantity: 10.0 Unit: mL Repeat number: 4 Indications: Testicular hypofunction;Start: 11-08-2024 inject 150 mg by intramuscular injection every other weektestosterone cypionate 200 mg/mL IM Erin 150 mg, IntraMuscular, q2wk, # 10 mL, Refills(s) 3, Pharmacy: [facility]/pharmacy #[id number], 174, cm, 10/26/24 9:18:00 EST, Height/Length Dosing, 147, kg, 10/26/24 9:18:00 EST, Weight Dosing Start Date: 11/08/24 Status: Ordered Quantity: 10.0 Unit: mL Repeat number: 4 Indication: Testicular hypofunction Start: 25-80-5529uzdizf 150 mg by intramuscular injection every other week testosterone cypionate 200 mg/mL IM Erin 150 mg, IntraMuscular, q2wk, # 10 mL, Refills(s) 3, Pharmacy: [facility]/pharmacy #[id number], 174, cm, 10/26/24 9:18:00 EST, Height/Length Dosing, 147, kg, 10/26/24 9:18:00 EST, Weight Dosing Start Date: 11/08/24 Status: OrderedStart: 78-02-5419kgsocv 150 mg by intramuscular injection every other weektestosterone cypionate 200 mg/mL IM Erin 150 mg, IntraMuscular, q2wk, # 10 mL, Refills(s) 3, other reason (Rx) Start Date: 10/26/24 Status: OrderedStart: 81-19-1874jsnzvr 150 mg by intramuscular injection every other weektestosterone cypionate 200 mg/mL IM Erin 150 mg, IntraMuscular, q2wk, # 10 mL, Refills(s) 0, Pharmacy: [facility]/pharmacy #[id number], 175, cm, 03/03/23 9:34:00 EDT, Height/Length Dosing, 144.7, kg, 03/03/23 9:34:00 EDT, Weight Dosing Start Date: 03/30/23 Status: OrderedStart: 29-85-7601pcwnla 150 mg by intramuscular injection every other weektestosterone cypionate 200 mg/mL IM Erin 150 mg, IntraMuscular, q2wk, # 10 mL, Refills(s) 0 Start Date: 11/25/22 Status: Ordered testosterone cypionate 200 mg/mL intramuscular solution (11 sources)Start: 39-44-1214cxvefk 200 mg by intramuscular injection every other weektestosterone cypionate 200 mg/mL intramuscular solution 200 mg = 1 mL, IntraMuscular, q2wk, # 1 mL,Refills(s) 5, Pharmacy: [facility]/pharmacy #[id number], 175, cm, 05/27/22 8:55:00 EDT, Height/Length Dosing, 142.9, kg, 05/27/22 8:55:00 EDT, Weight Dosing Start Date: 05/27/22 Status: OrderedStart: 65-27-3231goqozaytphbu cypionate 200 mg/mL intramuscular solution 200 mg = 1 mL, IntraMuscular, q4wk, # 1 mL,Refills(s) 5, Pharmacy: [facility]/pharmacy #[id number], 175, cm, 11/11/21 8:23:00 EST, Height/Length Dosing, 142.9, kg, 11/11/21 8:23:00 EST, Weight Dosing Start Date: 01/05/22 Status: OrderedStart: 91-90-0747rildadvlfkxu cypionate 200 mg/mL intramuscular solution 200 mg = 1 mL, IntraMuscular, q4wk, # 1 mL,Refills(s) 5, Pharmacy: [facility]/pharmacy #[id number], 175, cm, 07/03/21 9:23:00 EDT, Height/Length Dosing, 136.5, kg, 07/03/21 9:23:00 EDT, Weight Dosing Start Date: 07/07/21 Status: OrderedTestosterone Cypionate 200 mg/mL intramuscular solution (8 sources)Start: 55-31-1336xsnyrn 100 mg by intramuscular injection every other weekTestosterone Cypionate 200 mg/mL intramuscular solution 100 mg, IntraMuscular, q2wk, # 10 mL, Refills(s) 0, Pharmacy: [facility]/pharmacy #[id number], 175, cm, 09/09/22 10:01:00 EST, Height/Length Dosing, 139, kg, 09/09/22 10:01:00 EST, Weight Dosing Start Date: 09/23/22 Status: OrderedTestosterone Cypionate 200 mg/mL oil (1 source)Start: 51-45-1699fsxokp 200 mg by intramuscular injection every other weekTestosterone Cypionate 200 mg/mL oil Active 200 MG IM EVERY 2 WEEKS June 14, 2024 12:00amurea 400 mg/ml topical cream (12 sources)Start: 05-04-2024 End: 07-49-6119lpza (Carmol) 40 % cream Indications: Xerosis cutis Apply 1 application topically in the morning and 1 application before bedtime. 85 g 1 05/04/2024 06/03/2024 ActiveVitamin B12 1000 mcg Tab (20 sources)Start: 39-55-2961acvu 1 ug by mouth once dailyVitamin B12 1000 mcg Tab mcg tab(s), Oral, Daily, Refills(s) 0 Start Date: 07/03/21 Status: Ordered Vitamin C 250 mg oral tablet (20 sources)Start: 27-68-7061bbiv 1 mg by mouth once dailyVitamin C 250 mg oral tablet mg tab(s), Oral, Daily, Refills(s) 0 Start Date: 07/03/21 Status: Ordered Completed/Discontinued Medications MedicationDrug Class(es)DatesSig (Normalized)Sig (Original)acetaminophen 500 mg oral tablet (1 source)Start: 07-24-2024 End: 08-84-6096ynog 1 tablet by mouth every six hours as needed for pain and headache and mg, oral, Every 6 hours PRN, mild pain - pain scale 1-3, headaches, temperature greater than 38C, Starting on 07/24/24 at 0407, [Warning: Total Acetaminophen not to exceed more than 4 grams (4000 mg) in 24 hours]atorvastatin 20 mg oral tablet (20 sources)HMG-CoA Reductase InhibitorStart: 07-26-2024 End: 41-69-4895tpzm 20 mg by mouth once daily20 mg, oral, Daily, First dose on Wed07/26/24 at 0930, Look-alike/sound-alike medication - verify indication for use.Start: 08-44-9353ibsf 1 tablet by mouth once dailyAtorvastatin 20 mg tablet Active 0 .ROUTE .COMPLEX 90 June 09, 2024 8:34am TAKE ONE TABLET BYMOUTH DAILY Complies with drug therapyStart: 88-60-5159kqoz 1 tablet by mouth once dailyAtorvastatin Active 0 .ROUTE .COMPLEX June 09, 2024 8:34am TAKE ONE TABLET BY MOUTH DAILYStart: 02-25-2024 End: 35-48-3183tmhp 1 tablet by mouth once dailyAtorvastatin 20 mg tablet Discontinued 20 MG PO Daily 90 February 25, 2024 12:00am June 09, 2024 8:34amStart: 67-87-6450yzdg 1 mg by mouth once dailyatorvastatin 10 mg Tab mg tab(s), Oral, Daily, Refills(s) 0 Start Date: 07/03/21 Status: Ordered Repeat number: 1calcium chloride 0.0014 meq/ml / potassium chloride 0.004 meq/ml / sodium chloride 0.103 meq/ml / sodium lactate 0.028 meq/ml injectable solution (3 sources)Start: 07-25-2024 End: 20-84-0015938 mL, intravenous, at 492 mL/hr, Administer over 61 Minutes, Once, On Wed07/25/24 at 0930, For 1doseStart: 07-24-2024 End: 22-28-2202vmfk 125 mL intravenously every pxfh943 mL/hr, intravenous, Continuous, Starting on Wed07/25/24 at 0845, For 1 dayglipiZIDE er 10 mg 24 hr extended release oral tablet (20 sources)SulfonylureaStart: 66-94-6244dtkvfLXUL XL (Glucotrol XL) 10 MG 24 hr tablet .COMPLEX 02/24/2024 ActiveStart: 11-05-2023 End: 75-29-8705lmqq 1 tablet by mouth once dailyGlipizide 10 mg tablet extended release 24hr Discontinued 0 .ROUTE .COMPLEX 90 0 February 24, 2024 4:27pm August 28, 2024 10:39pm TAKE 1 TABLET BY MOUTH EVERY DAYStart: 11-05-2023 End: 70-48-5357vjey 1 tablet by mouth once dailyGlipizide Discontinued 0 .ROUTE .COMPLEX November 05, 2023 4:00pm February 21, 2024 8:33am TAKE 1 TABLET BY MOUTH EVERY DAYStart: 46-51-6421lmvq 1 tablet by mouth once dailyGlipizide Active 0 .ROUTE .COMPLEX 90 November 05, 2023 4:00pm TAKE 1 TABLET BY MOUTH EVERY DAYStart: 39-76-7146bpsj 1 mg by mouth once dailyglipiZIDE 5 mg Tab mg tab(s), Oral, Daily, Refills(s) 0 Start Date: 07/03/21 Status: Ordered Repeatnumber: 1Start: 05-13-2019 End: 51-92-3756pkgy 1 tablet by mouth once dailyGlipizide 10 mg tablet Discontinued 1 TAB PO Daily May 13, 2019 12:00am November 05, 2023 4:00pm take 1 tablet by mouth once dailyglipiZIDE ER 10 MG TAKE 1 TABLET BY MOUTH EVERY DAY for 90 Activeglucagon (rdna) 1 mg injection (1 source)Antihypoglycemic AgentStart: 07-24-2024 End: mg, intramuscular, As needed, low blood sugar, blood glucose less than 70 mg/dL and unconscious or NPO without IV access., Starting on Wed07/24/24 at 0407, If conscious and not NPO, immediately follow with meal tray or high protein (7Grams) snack if tray not available. If NPO, initiate IV 5% Dext geraldine/Water at 100 mL/hr and contact prescriber for additional orders. If blood glucose is not greater than 70 mg/dL after initial treatment, repeat treatment. 150 ml glucose 50 mg/ml injection (3 sources)Start: 07-24-2024 End: 44-67-7278asen 70 mg intravenously every [id number] mL/hr, intravenous, Continuous PRN, blood glucose less than 70 mg/dL, Starting on Wed07/24/24 at 0407, Use immediately following dextrose 50% or glucagon treatment for patients who are unconscious or NPO. Contact prescriber for additional orders. If blood glucose is not greater than 70 mg/dL after initial treatment, repeat treatment. Start: 07-24-2024 End: mL, intravenous, As needed, low blood sugar, blood glucose less than 70 mg/dL and unconscious orNPO with IV access, Starting on Wed07/24/24 at 0407, Push over 1-3 minutes STAT. If conscious and not NPO, immediately follow with meal tray or high protein (7 grams) snack if tray not available. IfNPO, initiate 5% dextrose in water at 100 mL/hr and contact prescriber for additional orders. If blood glucose is not greater than 70 mg/dL after initial treatment, repeat treatment. VESICANT (RED) Warning: HYPERTONIC solution.Start: 07-24-2024 End: g, oral, As needed, low blood sugar, blood glucose less than 70 mg/dL, Starting on Wed07/24/24 at 0407, If patient conscious and taking PO. If blood glucose is not greater than 70 mg/dL after initial treatment, repeat treatment.3 ml insulin lispro 100 unt/ml pen injector (2 sources)Insulin AnalogStart: 07-26-2024 End: 12-30-7393zoidyh 400 mg by subcutaneous injection four times [...] give 6 units. For blood glucose 301-350 mg/dL,give 8 units. For blood glucose 351-400 mg/dL, give 10 units. Notify prescriber if blood glucose greater than 400 mg/dL. Look-alike/sound-alike medication - verify indication for use. Prime with 2 units of insulin prior to administration. Prandial/supplemental Insulin. Pre-filled pens stable 28 days at room temperature. Insulin lispro should be administered within 15 minutes before or immediatelyafter a meal.Start: 07-24-2024 End: 27-11-4995zpjusr 2-10 [IU] by subcutaneous injection every six hours2-10 Units, subcutaneous, Every 6 hours, First dose on Wed07/24/24 at 1000, For blood glucose 151-200 mg/dL, give 2 units. For blood glucose 201-250 mg/dL, give 4 units. For blood glucose 251-300 mg/dL, give 6 units. For blood glucose 301- 350 mg/dL, give 8 units. For blood glucose 351-400 mg/dL, give 10 units. Notify prescriber if blood glucose greater than 400 mg/dL. Look-alike/sound-alike medic ation - verify indication for use. Prime with 2 units of insulin prior to administration. Prandial/supplemental Insulin. Pre-filled pens stable 28 days at room temperature. Insulin lispro should be administered within 15 minutes before or immediately after a meal.50 ml magnesium sulfate 40 mg/ml injection (2 sources)Start: 07-24-2024 End: ,000 mg, intravenous, at 25 mL/hr, Administer over 120 Minutes, As needed, Magnesium level 1.7 to 1.9 mg/dL, or Ionized Magnesium level 0.45 to 0.5 mmol/L., Starting on Wed07/24/24 at 1016, Recheckmagnesium level 4 hours after infusion complete. With each magnesium result continue the replacement orders as needed.Start: 07-24-2024 End: ,000 mg, intravenous, at 25 mL/hr, Administer over 240 Minutes, As needed, Magnesium level 1.6 mg/dL or less, or Ionized Magnesium level 0.44 mmol/L or less, Starting on Wed07/24/24 at 1016, Recheck magnesium level 4 hours after infusion complete. With each magnesium result continue the replacement orders as needed.5 ml metoprolol tartrate 1 mg/ml injection (1 source)beta-Adrenergic BlockerStart: 07-25-2024 End: mg, intravenous, Every 6 hours scheduled, First dose (after last modification) on Wed07/25/24 [id number], Hold for HRomeprazole 40 mg delayed release oral capsule (20 sources)Proton Pump InhibitorStart: 11-26-2023 End: 14-66-9129fxor 1 capsule by mouth once daily before mealtimeOmeprazole 40 mg capsule,delayed release(DR/EC) Discontinued 0 .ROUTE .COMPLEX 90 30 1 February 24, 2024 4:27pm August 28, 2024 10:39pm TAKE 1 CAPSULE BY MOUTH EVERY DAY BEFORE A MEALStart: 07-03-2021 End: 96-43-9051oskf 1 capsule by mouth once dailyOmeprazole 40 mg capsule,delayed release(DR/EC) Discontinued 40 MG PO Daily November 25, 2023 12:00am November 26, 2023 12:09pmpantoprazole 40 mg delayed release oral tablet (2 sources)Proton Pump InhibitorStart: 07-28-2024 End: 30-88-155359 mg, oral, Every morning before breakfast, First dose on Wed07/28/24 at 0700, Look-alike/sound-alike medication - verify indication for use. If patient is receiving enteral feeding, consider alternative PPI or continue IV pantoprazole until the delayed-release tablet can be taken orally, Indicati on: GERDStart: 07-25-2024 End: 95-98-820037 mg, intravenous, Every 24 hours scheduled, First dose on Wed07/25/24 at 1515, GERD Look-alike/sound-alike medication - verify indication for use., Indication: Other ([place]FFERSON)Potassium Chloride (1 source)Start: 07-24-2024 End: 73-25-3845wgichnsvv chloride (K-TAB,KLOR-CON) CR tablet 30-40 mEq prochlorperazine 5 mg/ml injectable solution (1 source)PhenothiazineStart: 07-24-2024 End: 67-75-7637ptsa 5 mg intravenously every six hours as needed for nausea and vomiting5 mg, intravenous, Every 6 hours PRN, nausea, vomiting, Starting on 07/24/24 at 0355, When administered via IV Push, do not exceed 5 mg per minute sildenafil 100 mg oral tablet (7 sources)Phosphodiesterase 5 InhibitorStart: 86-57-8342zicw 1 tablet by mouth every twenty-four hours as neededViagra 100 mg Tab 100 mg = 1 tab(s), Oral, As Directed, PRN for erectile dysfunction, 1 hour beforesexual activity. Start with 1/2 tablet. Not to exceed 1 tab (100 mg) in 24 hours, # 30 tab(s), Refills(s) 5, Pharmacy: [facility] #[id number], 040, cm, 03/03/23 9:34... Start Date: 03/17/23 Status: OrderedStart: 46-54-9352gjox 1 tablet by mouth every twenty-four hours as neededViagra 100 mg Tab 100 mg = 1 tab(s), Oral, As Directed, PRN for erectile dysfunction, 1 hour beforesexual activity. Start with 1/2 tablet. Not to exceed 1 tab (100 mg) in 24 hours, # 30 tab(s), Refills(s) 5, Pharmacy: [facility]/pharmacy #[id number], 175, cm, 03/03/23 9:34:00 EDT,... Start Date: 03/03/23 Status: Vxzpxms835 ml sodium chloride 9 mg/ml prefilled syringe (2 sources)Start: 07-24-2024 End: mL, intravenous, Every 12 hours scheduled, First dose on Wed07/24/24 at 0900Start: 07-24-2024 End: mL, intravenous, As needed, line care, before and after each intermittent use, Starting on Wed07/24/24 at 0407sulfamethoxazole 800 mg / trimethoprim 160 mg oral tablet (6 sources)Dihydrofolate Reductase Inhibitor Antibacterial, Sulfonamide AntimicrobialStart: 02-23-2024 End: 36-64-8154gsnd 1 tablet by mouth twice dailySulfamethoxazole-Trimethoprim 800-160 mg tablet Discontinued 1 TAB PO Twice daily 14 0 February 23, 2024 12:00am April 17, 2024 9:16amtadalafil 20 mg oral tablet (20 sources)Phosphodiesterase 5 InhibitorStart: 04-02-2883wzup 1 tablet by mouth every hour as needed, then take 1 tablet by mouth every twenty-four hours as neededCialis 20 mg Tab 20 mg = 1 tab(s), Oral, As Directed, PRN for erectile dysfunction, Take 1 tab 1 hour prior to intercourse. Do not exceed 20mg within 24 hours., # 30 tab(s), Refills(s) 3, Pharmacy: [facility] #[id number], 174, cm, 09/15/23 8:08:00 EST, Height/Length Dosing, 143, kg, 09/15/23 8:08:00 EST, Weight Dosing Start Date: 09/15/23 Status: OrderedStart: 00-59-3376Lqozyh 20 mg Tab 20 mg = 1 tab(s), Oral, As Directed, PRN for erectile dysfunction, Do not exceed 20mg within 24 hours., # 30 tab(s), Refills(s) 3, Pharmacy: [facility]/pharmacy #[id number], 174, cm, 06/09/23 7:58:00 EDT, Height/Length Dosing, 143, kg, 06/09/23 7:58:00 EDT, Weight Dosing Start Date: 06/09/23 Status: OrderedTirzepatide (4 sources)Start: 05-01-2024 End: 56-17-6170Udmwdksvyzb (Mounjaro) 2.5 mg/0.5 mL pen injector Discontinued 2.5 MG SUBCUT every week 2 May 01, 2024 12:00am June 14, 2024 9:33am patient will have voucherStart: 05-01-2024 End: 85-75-0338Iraqlgfvbru (Mounjaro) 2.5 mg/0.5 mL pen injector Discontinued 2.5 MG SUBCUT every week 2 2023 12:00am June 14, 2024 9:33am patient will have voucherStart: 37-44-3637Oseqcqmevyf (Mounjaro) 2.5 mg/0.5 mL pen injector Active 2.5 MG SUBCUT every week 2 April 12:00am patient will have voucherTirzepatide (4 sources)Start: 05-01-2024 End: 68-09-8946Bdpenzjlyoa (Mounjaro) 5 mg/0.5 mL pen injector Discontinued 5 MG SUBCUT every week 2 May 01, 2024 12:00am August 07, 2024 10:18am to follow 2.5 mg (voucher)Start: 05-01-2024 End: 97-18-7488Yflpqufclhb (Mounjaro) 5 mg/0.5 mL pen injector Discontinued 5 MG SUBCUT every week May 01, 2024 12:00am August 07, 2024 10:18am to follow 2.5 mg (voucher)Start: 24-12-0127Rjkuytncsrl (Mounjaro) 5 mg/0.5 mL pen injector Active 5 MG SUBCUT every week May 01, 2024 12:00am to follow 2.5 mg (voucher)tirzepatide (MOUNJARO) 5 mg/0.5 mL pen injector (1 source) End: 92-27-0500uwvkbpqkvxc (MOUNJARO) 5 mg/0.5 mL pen injector Inject 5 mg under the skin every 7 days. 4Discontinued (Stop Taking at Discharge) Problems Active Problems Problem ClassificationProblemDateDocumented DateEpisodic/ChronicAbdominal pain (20 sources)Lower abdominal pain; Translations: [Lower abdominal pain, unspecified]Onset: 03-12-3904DokfskhcLpchghmi foot deformities (5 sources)Acquired deformity of toe of right foot; Translations: [Other deformities of toe(s) (acquired), right foot]EpisodicCardiac dysrhythmias (5 sources)Cardiac arrhythmia; Translations: [Cardiac arrhythmia, unspecified] ChronicChronic kidney disease (5 sources)Chronic kidney disease stage 3; Translations: [Chronic kidney disease, stage 3 unspecified]Onset: 37-63-8281YcpdghcZotrujh obstructive pulmonary disease and bronchiectasis (5 sources)Bronchitis; Translations: [Bronchitis, not specified as acute or chronic]EpisodicChronic ulcer of skin (20 sources)Chronic ulcer of foot; Translations: [Non-pressure chronic ulcer of other part of unspecified foot with unspecified severity]Onset: 03-08-2018 39-66-9109WherebfAaugvycwff heart failure; nonhypertensive (9 sources)Heart failure, unspecified; Translations: [Heart failure]Onset: 83-97-9133ThksliuYmkzbtbm atherosclerosis and other heart disease (20 sources)Atherosclerotic heart disease of [place] coronary artery without angina pectoris; Translations: [Double coronary vessel disease]Onset: 12-12-2014 77-46-1028HfxlzliDdlcjmhq atherosclerosis and other heart disease (1 source)Coronary atherosclerosis and other heart diseaseOnset: 07-14-2018 Diabetes mellitus with complications (20 sources)Type 2 diabetes mellitus with ulcer; Translations: [Type 2 diabetes mellitus with foot ulcer]Onset: 51-28-7676QosqnvpYhozzexn mellitus without complication (20 sources)Diabetes mellitus; Translations: [Diabetes mellitus without mention of complication, type II or unspecified type, not stated as uncontrolled]Onset: 453744-87-2671IkwmamhQezkkfkl mellitus without complication (1 source)Glycosuria; Translations: [Glycosuria]Onset: 47-08-9682Tlbidmbi Disorders of lipid metabolism (20 sources)Hyperlipidemia; Translations: [Other and unspecified hyperlipidemia] Onset: 17-61-6658VyksbxvTblitfoofb disorders (15 sources)Gastroesophageal reflux disease without esophagitis; Translations: [Gastro-esophageal reflux disease without esophagitis]58-27-9444FzbjybvHpqoagkcd hypertension (20 sources)Essential hypertension; Translations: [Unspecified essential hypertension]Onset: 86-36-5506FijmxweUhnmphxyl hypertension (1 source)Essential hypertensionOnset: 87-95-7925Lvpfukszmisie symptoms and ill- defined conditions (20 sources)Nocturia; Translations: [Asymptomatic microscopic hematuria]Onset: 948070-04-5132TtzgewxyJxaijoacwky of prostate (20 sources)Benign prostatic hypertrophy with outflow obstruction; Translations: [Benign prostatic hyperplasia with lower urinary tract symptoms]Onset: 15-00-7693BofrjgmIfjngkwbze obstruction without hernia (7 sources)Small bowel obstruction; Translations: [Unspecified intestinal obstruction, unspecified as to partial versus complete obstruction]Onset: 984026-44-0195YlryinuaZjucihb and fatigue (19 sources)Fatigue; Translations: [Other fatigue]Onset: EpisodicMood disorders (14 sources)Depression; Translations: [Major depressive disorder, single episode, unspecified]Onset: 00-59-4868IffdhznUulqrmgsehm chest pain (7 sources)Chest discomfort; Translations: [Other chest pain]67-47-2066Dtwtvjti Open wounds of extremities (7 sources)Injury of foot; Translations: [Unspecified open wound, unspecified foot, initial encounter]31-65-2606XfyimnfjKmukgiq on above:Bilateral foot wounds Osteoarthritis (5 sources)Localized, primary osteoarthritis of the ankle and/or foot; Translations: [Primary osteoarthritis, right ankle and foot]ChronicOther circulatory disease (5 sources)Elevated blood-pressure reading without diagnosis of hypertension; Translations: [Elevated blood-pressure reading, without diagnosis of hypertension]EpisodicOther connective tissue disease (5 sources)Disorder of musculoskeletal system; Translations: [Other symptoms and signs involving the musculoskeletal system]EpisodicOther connective tissue disease (5 sources)Pain in left arm; Translations: [Pain in left arm]EpisodicOther connective tissue disease (5 sources)Pain in right foot; Translations: [Pain in right foot]EpisodicOther diseases of veins and lymphatics (1 source)Lymphedema, not elsewhere classified; Translations: [LYMPHEDEMA NOT ELSEWHERE CLASSIFIED]Onset: 63-93-4531GjvzhuvYezoe diseases of veins and lymphatics (13 sources)Peripheral venous insufficiency; Translations: [Venous insufficiency (chronic) (peripheral)]Onset: 94-23-4763VheidwmrJleya diseases of veins and lymphatics (2 sources)Venous insufficiency (chronic) (peripheral); Translations: [VENOUS INSUFF CHRONIC PERIPHERAL]Onset: 79-77-2837HqfoqkqwEjyxk endocrine disorders (20 sources)Testicular hypofunction; Translations: [Testicular hypofunction] Onset: 74-94-9192PnffznyLtvnu endocrine disorders (20 sources)Male hypogonadism; Translations: [Testicular hypofunction]09-02-2022 ChronicOther endocrine disorders (5 sources)Disorder of endocrine system; Translations: [Endocrine disorder, unspecified]EpisodicOther injuries and conditions due to external causes (5 sources)History of fall; Translations: [History of falling]EpisodicOther male genital disorders (20 sources)Male erectile dysfunction, unspecified; Translations: [Erectile dysfunction]Onset: 16-41-0832BrpdhtiGlpfo nutritional; endocrine; and metabolic disorders (16 sources)Body mass index 40+ - severely obese; Translations: [Body Mass Index 40.0-44.9, adult]Onset: 62-40-2981RjaixthPvfxm nutritional; endocrine; and metabolic disorders (17 sources)Morbid obesity; Translations: [Morbid obesity]93-51-3865PtjmmwqEzknd nutritional; endocrine; and metabolic disorders (1 source)Morbid (severe) obesity due to excess calories; Translations: [MORBID SEVERE OBES D/T EXCESS DAVID]Onset: 73-35-4536NhopqtqIdtzn nutritional; endocrine; and metabolic disorders (1 source)Body mass index (BMI) 45.0-49.9, adult; Translations: [BODY MASS INDEX BMI 45.0-49.9 ADULT]Onset: 95-52-7845YjhrilqPensn nutritional; endocrine; and metabolic disorders (10 sources)Obesity; Translations: [Obesity, unspecified]Onset: 07-13-2014 16-34-6139RqdrfbiEbhxz nutritional; endocrine; and metabolic disorders (3 sources)Obesity, unspecified; Translations: [Obesity, unspecified]04-17-2024 ChronicOther screening for suspected conditions (not mental disorders or infectious disease) (20 sources)Decreased testosterone level ; Translations: [Blood chemistry abnormal]Onset: 643330-43-0864OqfixaqfVldim skin disorders (5 sources)Callosity; Translations: [Corns and callosities]EpisodicOther skin disorders (5 sources)Hemosiderin pigmentation of lower limb due to varicose veins of lower limb; Translations: [Other specified disorders of pigmentation]04-17-2024 EpisodicOther skin disorders (3 sources)Other specified disorders of pigmentation; Translations: [Dyschromia, unspecified]71-36-0122DjrlrpuuWlcgl skin disorders (8 sources)Asteatosis cutis; Translations: [Xerosis cutis]26-36-9992Hrriqshm Other skin disorders (6 sources)Fissure in skin; Translations: [Changes in skin texture]05-14-2024 EpisodicPeripheral and visceral atherosclerosis (19 sources)Intermittent claudication; Translations: [Peripheral vascular disease, unspecified]10-02-2198IzsargySkrsfkcw codes; unclassified (11 sources)Obstructive sleep apnea syndrome; Translations: [Obstructive sleep apnea]Onset: 631129-23-4989XqrfebcLsbktqap codes; unclassified (7 sources)Sleep apnea; Translations: [Sleep apnea, unspecified]05-14-2019 ChronicResidual codes; unclassified (8 sources)Edema; Translations: [Localized edema]EpisodicResidual codes; unclassified (8 sources)Localized edema; Translations: [Localized edema]Onset: 02-24-2022 39-64-1247RdczpeojPyeujxrk codes; unclassified (5 sources)Tobacco user; Translations: [Tobacco use]EpisodicResidual codes; unclassified (5 sources)Bilateral lower limb edema; Translations: [Localized edema]04-17-2024 EpisodicResidual codes; unclassified (1 source)Pain, unspecified; Translations: [Pain, unspecified]Onset: 07-23-2024 EpisodicScreening and history of mental health and substance abuse codes (20 sources)Ex-smoker; Translations: [Personal history of tobacco use]Onset: 268682-54-3333MjvelwmeKculbyn on above:quit 2012 1ppd;Spondylosis; intervertebral disc disorders; other back problems (5 sources)Neck pain; Translations: [Cervicalgia]EpisodicSuperficial injury; contusion (5 sources)Superficial foreign body, right foot, initial encounter; Translations: [Superficial foreign body, right foot, initial encounter]Episodic Unclassified (2 sources)Athscl heart disease of [place] coronary artery w/o ang pctrs / I25.10(ICD-9)Onset: 93-24-3294Kefmtnqgxuso (20 sources)Asymptomatic microscopic gpyazahxt51-08-3427Ofbqfcbbthob (1 source)CONTACT W/AND (SUSP) EXPOS COVID-19; Translations: [CONTACT W/AND (SUSP) EXPOS COVID-19]Onset: 63-63-7746Sfbqdhoa veins of lower extremity (12 sources)Pain co-occurrent and due to varicose veins of bilateral legs; Translations: [Varicose veins of bilateral lower extremities with pain] 17-09-0261FwlvimuxGzcwi infection (1 source)COVID-19; Translations: [COVID-19]Onset: 08-07-2022 Past or Other Problems Problem ClassificationProblemDateDocumented DateEpisodic/ChronicAcute and unspecified renal failure (6 sources)Acute kidney failure, unspecified; Translations: [Acute renal failure syndrome]Onset: 21-30-7935RcojadcyQaqxmqnvx infection; unspecified site (5 sources)Bacterial infectious disease; Translations: [Bacterial infection, unspecified, in conditions classified elsewhere and of unspecified site]Onset: 66-72-6448RdsomkjqQvjlpdhgls associated with dizziness or vertigo (5 sources)Dizziness and giddiness; Translations: [Dizziness and giddiness] Onset: 85-77-1068OctgrowsYcnywnxt atherosclerosis and other heart disease (1 source)Presence of coronary angioplasty implant and graft; Translations: [PRESENCE COR ANGPLSTY IMPLANT AND GRAFT]Onset: 54-54-5331TvivtsgtHjxgj and electrolyte disorders (1 source)Dehydration; Translations: [DEHYDRATION]Onset: 07-31-3188YiapxiinNmowe valve disorders (5 sources)O/E - cardiac murmur; Translations: [Cardiac murmur, unspecified] Onset: 09-04-5394JvlexxviAveoye and vomiting (1 source)Nausea with vomiting, unspecified; Translations: [NAUSEA WITH VOMITING UNSPECIFIED]Onset: 06-44-4729KsjozglvIjbyuvqecosv breast conditions (5 sources)Breast lump; Translations: [Unspecified lump in unspecified breast] Onset: 79-59-4821UthrzpnlWsoor aftercare (1 source)long term care pharmacist (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; Translations: [MANAGER SKILLED CURRENT USE OF ASPIRIN]Onset: 94-15-6906WznjijklCdfbv aftercare (1 source)prison (current) use of oral hypoglycemic drugs; Translations: [[facility] USE ORAL HYPOGLYCEMIC DX]Onset: 83-32-1920LsbuhmzlSeazr aftercare (1 source)Other long-term (current) drug therapy; Translations: [OTH MANAGER SKILLED CURRENT DRUG THERAPY]Onset: 96-79-8556LrncyxvbJjabr gastrointestinal disorders (1 source)Diarrhea, unspecified; Translations: [DIARRHEA UNSPECIFIED]Onset: 97-17-6877SyqkaxriNyuhx gastrointestinal disorders (5 sources)Diarrhea; Translations: [Diarrhea, unspecified]Onset: 01-04-2014 EpisodicOther lower respiratory disease (1 source)Personal history of pneumonia (recurrent); Translations: [PERSONAL HX OF PNEUMONIA RECURRENT]Onset: 83-74-7340WkhrtggoEinrp skin disorders (1 source)Nail dystrophy; Translations: [NAIL DYSTROPHY]Onset: 01-26-2022 EpisodicOther skin disorders (1 source)Corns and callosities; Translations: [CORNS AND CALLOSITIES]Onset: 60-58-0060PxykellrAmget skin disorders (1 source)Xerosis cutis; Translations: [XEROSIS CUTIS]Onset: 25-81-3673Gbzyvaeg Other skin disorders (5 sources)Hypertrophic condition of skin; Translations: [Other hypertrophic disorders of the skin]Onset: 57-61-7592QyaayyqtZqzugapxpd (except in labor) (2 sources)Sepsis, unspecified organism; Translations: [Severe sepsis without septic shock]Onset: 65-63-0930AfwzwfvyJqtx and subcutaneous tissue infections (14 sources)Cellulitis of right lower limb; Translations: [Cellulitis and abscess of buttock]Onset: 24-28-7640Dhmvmgxr Results Test NameValueInterpretationReference RangeFacilityUrology Office/Clinic Noteon 18-83-2841Opizugc Office/Clinic NoteUrology Office/Clinic Note Chief Complaint f/u HPI Staff 64 year old male 6 months w/ T level Previous Dx: hypogonadism male, BPH w/o urinary obstruction, ED 04/25/25: HCT 47.0, PSA 0.8, Testosterone 515 Patient denies any dysuria or gross hematuria. Denies any flank or abdomen pain. no symptoms History of Present Illness Tests reviewed: UA, T level, HCT, PSA I have reviewed the previous health record [...] Physical Exam Vitals & Measurements HR: 70(Peripheral) BP: 133/82 HT: 69 in HT: 174 cm WT: 340.393 lb WT: 154.4 kg BMI: 51 General Appearance: alert, no distress, well nourished, well developed adult. Assessment/Plan 64 yo male here for TRT f/up. 1. Hypogonadism male (E29.1: Testicular hypofunction) Testosterone 05/13/22 - 323 07/29/22 - 830, on 200mg q2wk 11/18/22 - 234, on 100mg q2wk 02/24/23 - 390, on 150mg q2wk 06/02/23 - 333, on 150mg q2wk 09/08/23 - 478, on 200mg q2wk 03/01/24 - 547, on 200mg q2wk 09/13/24 - 630, on 200mg q2wk 10/18/24 - 732, on 200mg q2wk 04/25/25 - 515, on 150mg q2wk Other labs 06/02/23 - HGB 16.5. HCT 50.1. 03/01/24 - HGB 16.1. HCT 48.4. 04/25/25 - HCT 47.0. Decreased Testosterone IM q2wks to 150 mg at prior OV. T level and HCT both acceptable. Pt does notfeel worsening sx with decreased dose. Follow up 1 yr with T level (AM), HCT, and PSA or sooner if needed. Pt understands and agrees with plan. -Cont Testosterone IM 150 mg/0.75ml q2wks (received 0.5 ml today because that was all there was in the vials) -Cont nurse visit q2wks for injections 2. BPH without urinary obstruction (N40.0: Benign prostatic hyperplasia without lower urinary tractsymptoms) PSA: 10/21/21 - 0.7 & 41% 02/24/23 - 3.6 06/02/23 - 1.3 03/01/24 - 0.8 04/25/25 - 0.8 UA shows trace leuks. Asx. IPSS 2 (3). No BPH meds. PSA remains stable. Will cont to monitor. -Cont symptomatic monitoring -Cont PSA monitoring especially while on TRT 3. ED (erectile dysfunction) (N52.9: Male erectile dysfunction, unspecified) Failed Viagra 100 mg and Cialis 20 mg d/t lack of efficacy. SHANTA not completed? (1). Previously declined tx. -Pt to notify office if he desires tx 4. Glucosuria (R81: Glycosuria) UA shows 250 mg/dL. Reports sugar level has been bouncing around recently. He is unsure why. -Tight DM control Follow-up With When Contact Information Carlos LIZAMA, Lety Scott, URL, URO Additional Instructions: 1 yr with T level (AM), HCT, and PSA Patient Education Hypogonadism, Male I, Joycelyn Cardoso, personally scribed for Dr. Gonzalez on 05/02/2025 12:02:49. . Documentation recorded by the scribe, Joycelyn Cardoso, accurately reflects the services(s) I performed and decisions made by me. Authenticated by Dr. Gonzalez on 05/02/2025 12:28:30. Problem List/Past Medical History Ongoing BPH without urinary obstruction Diabetes mellitus ED (erectile dysfunction) Essential hypertension Former smoker Hyperlipidemia Hypogonadism male Morbid obesity with BMI of 50.0-59.9, adult Nocturia Historical No qualifying data Procedure/Surgical History Aortic stent, Big toe, Tonsillectomy. Medications amLODIPine 5 mg Tab, Oral, Daily atorvastatin 10 mg Tab, Oral, Daily carvedilol 12.5 mg Tab, Oral, BID citalopram, Oral, Daily Depo-Testosterone 200 mg/mL intramuscular solution, 150 mg= 0.75 mL, IntraMuscular, q2wk Depo-Testosterone 200 mg/mL intramuscular solution, 150 mg= 0.75 mL, IntraMuscular, q2wk Depo-Testosterone 200 mg/mL intramuscular solution, 150 mg= 0.75 mL, IntraMuscular, q2wk glipiZIDE 5 mg Tab, Oral, Daily lisinopril 5 mg Tab, Oral, Daily omeprazole 40 mg Cap-DR, Oral, Daily pioglitazone 30 mg Tab Steglatro 15 mg oral tablet, Oral, qAM testosterone cypionate 200 mg/mL IM Erin, 150 mg, IntraMuscular, q2wk, 5 refills Allergies metFORMIN (Stomach cramps, Diarrhea) Social History Tobacco Former smoker, quit more than 30 days ago Tobacco Use:. Never Smokeless Tobacco Use:. Cigarettes, Household tobacco concerns: No. Yes, 03/08/2024 Family History Hypertension: Mother. Immunizations Vaccine Date Status Comments influenza virus vaccine, inactivated - Not Given Patient Refuses SARS-CoV-2 (COVID-19) mRNA B (more content not included)...NormalCincinnati Children'S Hospital Medical CenterComment on above:Result Comment: Electronically Signed By: Lety Gonzalez MD\.br\Date and Time Signed: 05/02/25 12:28EDT\.br\Electronically Co- Signed By: Joycelyn Cardoso.br\Date and Time Co-Signed: 05/02/25 12:03 EDT Testost Totalon 05-76-3334Kcyvpthtf Yun280 ng/dLInvalid Interpretation Code 264-287C[facility] Children[facility] Hospital Medical CenterComment on above:Result Comment: Adult male reference interval is based on a population of healthy nonobese males (BMI <30) between 19 and 39 years old. Tayler et.al. JCEM 2017,102;6098-9420. PMID: 00420263. Performed at: [facility] [address] [id number] PhD Arianne FonsecaPerformed By: #### [id number] #### [facility] [address], [place] [address]Zeiqdkehsift 63-64-0002Vuygwwoocf (Bld) [Volume fraction]47.0 % Tpzlbu14.7-49.0C[facility] Hospital Medical CenterComment on above:Performed By: #### [id number] #### [facility] [address], [place] [address]RWM Screen, Totalon 21-47-0090EST Scrn Tot.0.8 ng/mLNormal 0.1-3.5FFayette County Memorial HospitalComment on above:Result Comment: The concentration of PSA determined by different manufacturers can vary due to diffe rences in assay methods and reagent specificity. Values obtained from different assay methods cannot be used interchangeably. The methodology used for this result was chemiluminescence using [employer] PSA reagent.Performed By: #### [id number] #### [facility] [address], [place] [address]Ijrbjlmddj Visit Summaryon 88-36-1267Uavwrdbusv Visit Summary Ambulatory Visit Summary JOHNATHAN CORREA :1960 Visit Date:03/21/2025 Ambulatory Visit Instructions Your Diagnosis Hypogonadism male [...] mg Cap-DR) pioglitazone (pioglitazone 30 mg Tab) testosterone (testosterone cypionate 200 mg/mL IM Erin) Procedures Performed Aortic stent, Big toe, Tonsillectomy. What to do next Scheduled Follow-Up Appointments Wednesday 8:00 AM EDT With: Where: [facility] [address] [address]- Wednesday 8:00 AM EDT With: Where: [facility] [address] [address]- Wednesday 11:00 AM EDT With: Carlos LIZAMA, Lety Scott Where: [facility] [address] [address]- Medications What How Much When Why Instructions [...] MOUTH EVERY DAY FOR 30 DAYS Unchanged testosterone (testosterone cypionate 200 mg/ mL IM Erin) 150 Milligram Intramuscular Everyother week Hypogonadism male Allergies metFORMIN (Stomach cramps, Diarrhea) [...] you for choosing us for your care. Patient Portal You may access all of your results and other medical record information on our secure patient portal. If you are not signed up for this yet, please contact [employer] Management at [phone] to get signed up today. Language Information Language assistance services are available as needed. [facility] CenterAmbulatory Visit Summaryon [id number] Visit SummaryAmbulatory Visit Summary JOHNATHAN CORREA :1960 Visit Date:02/21/2025 Ambulatory Visit Instructions Your Diagnosis Male hypogonadism Your Care Team Attending Physician - Carlos [...] mg Cap-DR) pioglitazone (pioglitazone 30 mg Tab) testosterone (testosterone cypionate 200 mg/mL IM Erin) Procedures Performed Aortic stent, Big toe, Tonsillectomy. What to do next Scheduled Follow-Up Appointments Wednesday 8:00 AM EDT With: Where: [facility] [address] [place] [address]- Wednesday 8:00 AM EDT With: Where: [facility] [address] [id number]- Wednesday 8:45 AM EDT With: Carlos LIZAAM, Lety Scott Where: [facility] [address] [place], [place] [id number]- Medications What How Much When Why Instructions [...] MOUTH EVERY DAY FOR 30 DAYS Unchanged testosterone (testosterone cypionate 200 mg/ mL IM Erin) 150 Milligram Intramuscular Everyother week Hypogonadism male Allergies metFORMIN (Stomach cramps, Diarrhea) [...] you for choosing us for your care. [facility] CenterAmbulatory Visit Summaryon [id number] Visit SummaryAmbulatory Visit Summary SUNNYJOHNATHAN :1960 Visit Date:01/31/2025 Ambulatory Visit Instructions Your Care Team Attending Physician - Do Whalen PA-C Primary Care Physician - LUIS JEFFREY MD This Is Your Medications List amlodipine (amLODIPine 5 mg Tab) atorvastatin (atorvastatin 10 mg Tab) carvedilol (carvedilol 12.5 mg Tab) citalopram ertugliflozin (Steglatro 15 mg oral tablet) glipiZIDE (glipiZIDE 5 mg Tab) lisinopril (lisinopril 5 mg Tab) omeprazole (omeprazole 40 mg Cap-DR) pioglitazone (pioglitazone 30 mg Tab) testosterone (testosterone cypionate 200 mg/mL IM Erin) Procedures Performed Aortic stent, Big toe, Tonsillectomy. What to do next Scheduled Follow-Up Appointments Wednesday 8:00 AM EDT With: Where: [facility] [address] [place] [address]- Wednesday 8:00 AM EDT With: Where: [facility] [address] [place] [address]- Wednesday 8:45 AM EDT With: Carlos LIZAMA, Lety Scott Where: [facility] [address] [place] [address]- Medications What How Much When Why Instructions [...] MOUTH EVERY DAY FOR 30 DAYS Unchanged testosterone (testosterone cypionate 200 mg/ mL IM Erin) 150 Milligram Intramuscular Everyother week Hypogonadism male Allergies metFORMIN (Stomach cramps, Diarrhea) [...] you for choosing us for your care. [facility] CenterAmbulatory Visit Summaryon [id number] Visit SummaryAmbulatory Visit Summary JOHNATHAN CORREA :1960 Visit Date:01/17/2025 Ambulatory Visit Instructions Your Care Team Attending Physician - Do Whalen PA-C Primary Care Physician - LUIS JEFFREY MD This Is Your Medications List amlodipine (amLODIPine 5 mg Tab) atorvastatin (atorvastatin 10 mg Tab) carvedilol (carvedilol 12.5 mg Tab) citalopram ertugliflozin (Steglatro 15 mg oral tablet) glipiZIDE (glipiZIDE 5 mg Tab) lisinopril (lisinopril 5 mg Tab) omeprazole (omeprazole 40 mg Cap-DR) pioglitazone (pioglitazone 30 mg Tab) testosterone (testosterone cypionate 200 mg/mL IM Erin) Procedures Performed Aortic stent, Big toe, Tonsillectomy. What to do next Scheduled Follow-Up Appointments Wednesday 8:30 AM EDT With: Where: [facility] [address] [address]- Wednesday 8:00 AM EDT With: Where: [facility] [address] [address]- Wednesday 8:45 AM EDT With: Carlos LIZAMA, Lety Scott Where: [facility] [address] [address]- Medications What How Much When Why Instructions [...] MOUTH EVERY DAY FOR 30 DAYS Unchanged testosterone (testosterone cypionate 200 mg/ mL IM Erin) 150 Milligram Intramuscular Everyother week Hypogonadism male Allergies metFORMIN (Stomach cramps, Diarrhea) [...] you for choosing us for your care. [facility] CenterAmbulatory Visit Summaryon [id number] Visit SummaryAmbulatory Visit Summary JOHNATHAN CORREA :1960 Visit Date:12/21/2024 Ambulatory Visit Instructions Your Diagnosis Hypogonadism male [...] mg Cap-DR) pioglitazone (pioglitazone 30 mg Tab) testosterone (testosterone cypionate 200 mg/mL IM Erin) Procedures Performed Aortic stent, Big toe, Tonsillectomy. What to do next Scheduled Follow-Up Appointments Wednesday 8:00 AM EDT With: Where: [facility] [address] [address]- Wednesday 8:45 AM EDT With: Carlos LIZAMA, Lety Scott Where: [facility] [address] [address]- Medications What How Much When Why Instructions [...] MOUTH EVERY DAY FOR 30 DAYS Unchanged testosterone (testosterone cypionate 200 mg/ mL IM Erin) 150 Milligram Intramuscular Everyother week Hypogonadism male Allergies metFORMIN (Stomach cramps, Diarrhea) [...] you for choosing us for your care. [facility] CenterAmbulatory Visit Summaryon [id number] Visit SummaryAmbulatory Visit Summary JOHNATHAN CORREA :1960 Visit Date:10/26/2024 [...] AM EST With: Where: [facility] [address] [place] [address]- Wednesday 8:00 AM EDT With: Where: [facility] [address] [place] [address]- Wednesday 8:45 AM EDT With: Carlos LIZAMA, Lety Scott Where: [facility] [address] [place] [address]- You Need to Schedule the Following Appointments [...] By Mouth Every day Contact prescribing physician ifquestions or concerns Unchanged carvedilol (carvedilol 12.5 mg [...] Testosterone also gives men (more content not included)...[facility] CenterUrology Office/Clinic Noteon [id number] Office/Clinic Note Urology Office/Clinic Note Chief Complaint [...] (N40.0: Benign prostatic hyperplasia without lower urinary tractsymptoms) PSA 10/21/21 - 0.7 & 41% 02/24/23 [...] Use:. Cigarettes, Household tob (more content not included)...[facility] CenterComment on above:Result Comment: Electronically Signed By: Lety Gonzalez MD\.br\Date and Time Signed: 10/26/24 15:15EST\.br\Electronically Co- Signed By: Felicia Elmore\.br\Date and Time Co-Signed: 10/26/24 09:59 EST Testost Totalon 92-75-0451Sbjduuwbctht [Mass/Vol]732 ng/dLInvalid Interpretation [id number] Children'S Hospital Medical CenterComment on above:Result Comment: Adult male reference interval is based on a population of healthy nonobese males (BMI <30) between 19 and 39 years old. Tayler et.al. JCEM 2017,102;6370-4637. PMID: [id number]. Performed at: [address] [id number] PhD Hernandezhigilbert Thorntonformed By: #### [id number] #### [facility] [address] [place], [place] [address]Vxailun Totalon 36-99-6500Gikwdcsklutv [Mass/Vol]630 ng/dL Invalid Interpretation [id number] Children'S Hospital Medical CenterComment on above: Result Comment: Adult male reference interval is based on a population of healthy nonobese males (BMI <30) between 19 and 39 years old. Tayler, et.al. [facility] 2017,102;9568-5266. PMID: [id number]. Performed at: [address] [id number] PhD Arianne Thorntonformed By: #### [id number] #### [facility] [address] [place], [place] [id number] auto differentialon 48-43-5379Fpyeymlnk (Bld) [#/Vol]0 10*3/[facility] HospitalBasophils/100 WBC (Bld)0.5 %[facility] CenterEosinophils (Bld) [#/Vol]0.3 10*3/uLOhioHealth Southeastern Medical CenterEosinophils/100 WBC (Bld)3.4 %[facility] CenterErythrocyte distribution width (RBC) [Ratio]16.2 %High11.5 - 15.0 %[facility] Medical CenterHematocrit (Bld) [Volume fraction]43.7 %39 - 49 %[facility] CenterHemoglobin (Bld) [Mass/Vol]15 g/dL13.0 - 17.0 g/dLOhioHealth Southeastern Medical CenterInterpretation and review of laboratory resultsAbnormWyandot Memorial HospitalLymphocytes (Bld) [#/Vol]1.3 10*3/[facility] HospitalLymphocytes/100 WBC (Bld)14.2 %[facility] Medical CenterMCH (RBC) [Entitic mass]26.7 pgLow27 - 34 [facility] HospitalMCHC (RBC) [Mass/Vol]34.3 g/dL32 - 36 g/dLOhioHealth Southeastern Medical CenterMCV (RBC) [Entitic vol]78 fLLow80 - 100 [facility] HealthcareMonocytes (Bld) [#/Vol]0.6 10*3/uL [facility] CenterMonocytes/100 WBC (Bld)6.6 %[facility] Neutrophils (Bld) [#/Vol]7 10*3/uLHighOhioHealth Southeastern Medical CenterNeutrophils/100 WBC (Bld)75.3 %[facility] CenterPlatelet mean volume (Bld) [Entitic vol]9 fL7 - 12 [facility] HealthcarePlatelets (Bld) [#/Vol]161 10*3/[facility] HospitalRBC (Bld) [#/Vol]5.61 10*6/[facility] HospitalWBC corrected for nucl RBC Auto (Bld) [#/Vol]9.2PJefferson Health Northeast Comprehensive metabolic panelon 36-75-5853Xqexxpy [Mass/Vol]3.3 g/dL3.2 - 5.3 g/dLOhioHealth Southeastern Medical CenterALP [Catalytic activity/Vol]64 U/L39 - 130 U/L [facility] CenterALT No additional P-5'-P [Catalytic activity/Vol]15 U/L0 - 40 U/LPrSt. John of God HospitalAnion gap [Moles/Vol]8 mmol/L5 - 15 mmol/L [facility] CenterAST [Catalytic activity/Vol]21 U/L0 - 41 U/[facility] CenterBilirubin [Mass/Vol]1.1 mg/dL0.3 - 1.2 mg/dLOhioHealth [facility] Calcium [Mass/Vol]8.2 mg/dLLow8.5 - 10.5 mg/dLOhioHealth Southeastern Medical CenterChloride [Moles/Vol]101 mmol/L98 - 109 mmol/[facility] SystemCO2 [Moles/Vol]26 mmol/L22 - 32 mmol/[facility] CenterCreatinine [Mass/Vol]0.82 mg/dL0.60 - 1.30 mg/dLOhioHealth Southeastern Medical CenterComment on above:METHOD TRACEABLE TO [facility] STANDARDeGFR (CKD-EPI)non-race dependent- [facility] University HospitalComment on above: Reported eGFR is based on the CKD-EPI 2020 equation that does not use a race coefficient. Glucose [Mass/Vol]132 mg/xGYabx62 - 99 mg/dLOhioHealth Southeastern Medical Center Interpretation and review of laboratory resultsAbnormalOhioHealth [facility]heastern Medical Center Potassium [Moles/Vol]3.4 mmol/LLow3.5 - 5.0 mmol/[facility] SystemProtein [Mass/Vol]5.9 g/dLLow6.0 - 8.0 g/dLAtrium Health Harrisburgodium [Moles/Vol]135 mmol/L134 - 146 mmol/[facility] CenterUrea nitrogen [Mass/Vol]10 mg/dL5 - 27 mg/dLOhioHealth Southeastern Medical CenterGlucose Glucometer (BldC) [Mass/Vol]on 13-87-8278Iilzytx [Mass/Vol]149 mg/eGUcuj36 - 99 mg/dLOhioHealth Southeastern Medical Center Interpretation and review of laboratory resultsAbnoMayo Clinic Health System– Chippewa ValleyGlucose [Mass/Vol]231 mg/gXHacl16 - 99 mg/dLOhioHealth Southeastern Medical CenterInterpretation and review of laboratory resultsAbnormWayne Memorial HospitalMagnesiumon 22-44-5988Ybnqfgzff [Mass/Vol] 1.9 mg/dL1.8 - 2.6 mg/dLOhioHealth Southeastern Medical CenterMagnesium [Mass/Vol]2 mg/dL1.8 - 2.6 mg/dLOhioHealth Southeastern Medical CenterMagnesium [Mass/Vol]on 09-90-5044AofSuazyzTriHealthNo Panel Informationon 81-12-4210AsoHpozpzTriHealthCBC auto differentialon 43-28-5465Xmfhgejlk (Bld) [#/Vol]0.1 10*3/[facility] HospitalBasophils/100 WBC (Bld)0.6 %[facility] Medical CenterEosinophils (Bld) [#/Vol]0.2 10*3/[facility] HospitalEosinophils/100 WBC (Bld)2.5 %[facility] Medical CenterErythrocyte distribution width (RBC) [Ratio]16.4 %High11.5 - 15.0 %[facility] Medical CenterHematocrit (Bld) [Volume fraction]45.6 %39 - 49 % [facility] Medical CenterHemoglobin (Bld) [Mass/Vol]15.6 g/dL13.0 - 17.0 g/dL [facility] CenterInterpretation and review of laboratory resultsAbnormal [facility] Medical CenterLymphocytes (Bld) [#/Vol]1.1 10*3/[facility] HospitalLymphocytes/100 WBC (Bld)10.8 %[facility] Medical CenterMCH (RBC) [Entitic mass]26.8 pgLow27 - 34 [facility] HospitalMCHC (RBC) [Mass/Vol]34.3 g/dL32 - 36 g/dLOhioHealth Southeastern Medical CenterMCV (RBC) [Entitic vol]78 fLLow80 - 100 fL [facility] CenterMonocytes (Bld) [#/Vol]0.6 10*3/[facility] Monocytes/100 WBC (Bld)6.5 %[facility] Medical CenterNeutrophils (Bld) [#/Vol]7.9 10*3/uLNaval Medical Center PortsmouthNeutrophils/100 WBC (Bld)79.6 %[facility] Medical CenterPlatelet mean volume (Bld) [Entitic vol]8.7 fL7 - 12 [facility] HealthcarePlatelets (Bld) [#/Vol]162 10*3/[facility] SystemRBC (Bld) [#/Vol]5.83 10*6/[facility] HospitalWBC corrected for nucl RBC Auto (Bld) [#/Vol]9.9Physicians Care Surgical HospitalCobalamin (Vitamin B12) [Mass/Vol]on 97-36-7035PnwFpvxfoTriHealthComprehensive metabolic panelon 58-41-9764Iwzdnnr [Mass/Vol]3.6 g/dL3.2 - 5.3 g/dLMercy Health SystemALP [Catalytic activity/Vol]66 U/L39 - 130 U/[facility] SystemALT No additional P-5'-P [Catalytic activity/Vol]15 U/L0 - 40 U/[facility] SystemAnion gap [Moles/Vol]8 mmol/L5 - 15 mmol/[facility] SystemAST [Catalytic activity/Vol]22 U/L0 - 41 U/[facility] SystemBilirubin [Mass/Vol]1.3 mg/dLHigh0.3 - 1.2 mg/dLMercy Health SystemCalcium [Mass/Vol] 8.6 mg/dL8.5 - 10.5 mg/dLOhioHealth Southeastern Medical CenterChloride [Moles/Vol]99 mmol/L98 - 109 mmol/[facility] SystemCO2 [Moles/Vol]30 mmol/L22 - 32 mmol/L [facility] CenterCreatinine [Mass/Vol]0.91 mg/dL0.60 - 1.30 mg/dLOhioHealth Southeastern Medical CenterComment on above:METHOD TRACEABLE TO IDMS STANDARDeGFR (CKD-EPI)non-race dependent- [facility] University HospitalComment on above: Reported eGFR is based on the CKD-EPI 2020 equation that does not use a race coefficient. Glucose [Mass/Vol]136 mg/jBGdgn70 - 99 mg/dLOhioHealth Southeastern Medical CenterPotassium [Moles/Vol]3.9 mmol/L3.5 - 5.0 mmol/LPrMelissa Memorial Hospital Health SystemProtein [Mass/Vol] 6.7 g/dL6.0 - 8.0 g/dLMercy Health SystemSodium [Moles/Vol]137 mmol/L134 - 146 mmol/[facility] SystemUrea nitrogen [Mass/Vol]11 mg/dL5 - 27 mg/dL [facility] Medical CenterFerritinon 77-83-6018Rijoalzs [Mass/Vol]96 ng/mL24 - 336 ng/mLOhioHealth Southeastern Medical CenterFerritin [Mass/Vol]on 29-01-0219OiuHuqxeyTriHealthFolateon 70-03-0311Jnvgoc [Mass/Vol]8.4 ng/mL5.8 - PINF ng/mLOhioHealth Southeastern Medical CenterComment on above:NEW REFERENCE RANGEFolate [Mass/Vol]on 07-27-2024 [facility] CenterGlucose Glucometer (BldC) [Mass/Vol]on 73-35-9958Eqaucms [Mass/Vol]203 mg/rSYctw02 - 99 mg/dLOhioHealth Southeastern Medical CenterInterpretation and review of laboratory resultsAbRoxbury Treatment CenterGlucose [Mass/Vol]190 mg/zECwnz85 - 99 mg/dLOhioHealth Southeastern Medical Center Interpretation and review of laboratory resultsAbnoMayo Clinic Health System– Chippewa ValleyGlucose [Mass/Vol]130 mg/wOKfwu81 - 99 mg/dLOhioHealth Southeastern Medical CenterInterpretation and review of laboratory resultsAbnormalPhysicians Care Surgical HospitalIron and TIBCon 57-86-0392Qrghqqdhphvwqn and review of laboratory resultsAbnormWyandot Memorial HospitalIron [Mass/Vol]34 ug/dLLow50 - 212 ug/dLOhioHealth Southeastern Medical CenterIron binding capacity [Mass/Vol]283 ug/dL250 - 425 ug/dLOhioHealth Southeastern Medical CenterIron saturation [Mass fraction]12Low [facility] Care Surgical HospitalMagnesiumon 31-13-1793Mvfxxtidx [Mass/Vol]1.7 mg/dLLow1.8 - 2.6 mg/dLOhioHealth Southeastern Medical CenterNo Panel Information on 09-21-7596Igueifjjvteouj and review of laboratory resultsAbnoConemaugh Meyersdale Medical CenterVitamin B12on 09-92-3647Fqsjmchnj (Vitamin B12) [Mass/Vol]268 pg/mL180 - 914 pg/mLOhioHealth Southeastern Medical CenterCBC auto differentialon 60-59-6846Lhnqqdwgg (Bld) [#/Vol]0.1 10*3/uLOhioHealth Southeastern Medical CenterBasophils/100 WBC (Bld)0.5 %[facility] Medical CenterEosinophils (Bld) [#/Vol]0.1 10*3/uLOhioHealth Southeastern Medical CenterEosinophils/100 WBC (Bld)0.9 %[facility] Medical CenterErythrocyte distribution width (RBC) [Ratio]16.8 %High11.5 - 15.0 %[facility] Medical CenterHematocrit (Bld) [Volume fraction]46 %39 - 49 %[facility] Medical CenterHemoglobin (Bld) [Mass/Vol]15.5 g/dL13.0 - 17.0 g/dLOhioHealth Southeastern Medical CenterInterpretation and review of laboratory resultsAbnoUNC Health RexLymphocytes (Bld) [#/Vol]1.3 10*3/[facility] Lymphocytes/100 WBC (Bld)8 %[facility] HospitalH (RBC) [Entitic mass]26.5 pgLow27 - 34 pgPTriHealthMCHC (RBC) [Mass/Vol]33.8 g/dL32 - 36 g/dL [facility] CenterMCV (RBC) [Entitic vol]78 fLLow80 - 100 [facility] HealthcareMonocytes (Bld) [#/Vol]1.2 10*3/uLNaval Medical Center Portsmouth Monocytes/100 WBC (Bld)7.5 %[facility] Medical CenterNeutrophils (Bld) [#/Vol]13.3 10*3/uLNaval Medical Center PortsmouthNeutrophils/100 WBC (Bld)83.1 %[facility] SystemPlatelet mean volume (Bld) [Entitic vol]9.3 fL7 - 12 [facility] SystemPlatelets (Bld) [#/Vol]130 10*3/uLLowMercy Health SystemRBC (Bld) [#/Vol]5.87 10*6/uLNaval Medical Center PortsmouthWBC corrected for nucl RBC Auto (Bld) [#/Vol]15.9HighPhysicians Care Surgical Hospital Comprehensive metabolic panelon 13-92-0035Lnoiafx [Mass/Vol]3.5 g/dL3.2 - 5.3 g/dLOhioHealth Southeastern Medical CenterALP [Catalytic activity/Vol]69 U/L39 - 130 U/L [facility] CenterALT No additional P-5'-P [Catalytic activity/Vol]11 U/L0 - 40 U/[facility] CenterAnion gap [Moles/Vol]9 mmol/L5 - 15 mmol/L [facility] CenterAST [Catalytic activity/Vol]17 U/L0 - 41 U/[facility] CenterBilirubin [Mass/Vol]1.3 mg/dLHigh0.3 - 1.2 mg/dLOhioHealth Southeastern Medical CenterCalcium [Mass/Vol]8.4 mg/dLLow8.5 - 10.5 mg/dLOhioHealth [facility]heastern Medical Center Chloride [Moles/Vol]101 mmol/L98 - 109 mmol/[facility] SystemCO2 [Moles/Vol]30 mmol/L22 - 32 mmol/[facility] CenterCreatinine [Mass/Vol] 0.93 mg/dL0.60 - 1.30 mg/dLOhioHealth Southeastern Medical CenterComment on above:METHOD TRACEABLE TO IDDE STANDARDeGFR (CKD-EPI)non-race dependent- [facility] HospitalComment on above: Reported eGFR is based on the CKD-EPI 2020 equation that does not use a race coefficient. Glucose [Mass/Vol]134 mg/nURyjw64 - 99 mg/dLOhioHealth Southeastern Medical Center Interpretation and review of laboratory resultsAbnoUNC Health Rex Potassium [Moles/Vol]3.9 mmol/L3.5 - 5.0 mmol/LProMedica Health SystemProtein [Mass/Vol]6.3 g/dL6.0 - 8.0 g/dLMercy Health SystemSodium [Moles/Vol]140 mmol/L134 - 146 mmol/LProMedica Health SystemUrea nitrogen [Mass/Vol]16 mg/dL5 - 27 mg/dLOhioHealth Southeastern Medical CenterGlucose Glucometer (BldC) [Mass/Vol]on 16-19-0484Weaxhfr [Mass/Vol]143 mg/vLNbnt34 - 99 mg/dLOhioHealth Southeastern Medical Center Interpretation and review of laboratory resultsAbnormalPenn State Health Holy Spirit Medical CenterGlucose [Mass/Vol]143 mg/hENaux09 - 99 mg/dLMercy Health SystemInterpretation and review of laboratory resultsAbnormalPhysicians Care Surgical HospitalGlucose [Mass/Vol]177 mg/vOEirr96 - 99 mg/dL [facility] CenterInterpretation and review of laboratory resultsAbnormal [facility] Surgical HospitalGlucose [Mass/Vol]141 mg/gFNsmt54 - 99 mg/dLOhioHealth Southeastern Medical CenterInterpretation and review of laboratory results AbnormalProBryn Mawr Rehabilitation HospitalGlucose [Mass/Vol]143 mg/dYIxcz48 - 99 mg/dLMercy Health SystemInterpretation and review of laboratory resultsAbnormalPhysicians Care Surgical HospitalLactate (P yoan) [Moles/Vol]on 11-26-7316CrhImgudtTriHealthLactate w/ Reflexon 18-70-2870Bstxuoa (P yona) [Moles/Vol]1.4 mmol/L0.4 - 2.0 mmol/[facility] SystemComment on above: Result did not trigger repeat Lactate, re-order if needed. Magnesiumon 42-10-1951Gqrnizjkq [Mass/Vol]2 mg/dL1.8 - 2.6 mg/dLOhioHealth Southeastern Medical CenterNo Panel Informationon 13-57-6180WfbTgdzxt Health SystemUrinalysison 13-19-5692Xuvwyuurc Ql (U)SMALLAbnormalNegative^NegativeOhioHealth Southeastern Medical Center Comment on above:Not confirmed, interpret positive results with caution.Color (U)YELLOWYELLOW^YELLOWOhioHealth Southeastern Medical CenterGlucose (U) [Mass/Vol]100 mg/dL AbnormalNegative^NegativeOhioHealth Southeastern Medical CenterHemoglobin Auto test strip Ql (U)NegativeNegative^NegativeOhioHealth Southeastern Medical CenterInterpretation and review of laboratory resultsAbnormWyandot Memorial HospitalKetones (U) [Mass/Vol]Negative Negative^Negative mg/dLOhioHealth Southeastern Medical CenterLeukocyte esterase Auto test strip Ql (U)NegativeNegative^NegativeOhioHealth Southeastern Medical CenterNitrite Auto test strip Ql (U)NegativeNegative^NegativeOhioHealth Southeastern Medical CenterpH (U)6.5 [pH]5.0 - 8.5 [facility] CenterProtein (U) [Mass/Vol]TraceAbnormalNegative^Negative mg/dLOhioHealth Southeastern Medical CenterRBC Auto (Urine sed) [#/Area]2PFormerly Albemarle Hospitalpecific gravity Refractometry automated (U) [Rel density]1.0251.003 - 1.035Ohio[facility] Medical CenterTurbidity Ql (U)CLEARCLEAR^CLEAROhioHealth Southeastern Medical CenterUrobilinogen Qn (U)4HighNINFOhioHealth Southeastern Medical CenterWBC Auto (Urine sed) [#/Area]2PJefferson Health NortheastCBC auto differentialon 77-31-2123Qyhwoxybl (Bld) [#/Vol]0 10*3/[facility] HospitalBasophils/100 WBC (Bld)0.3 %[facility] CenterEosinophils (Bld) [#/Vol]0 10*3/uLOhioHealth Southeastern Medical CenterEosinophils/100 WBC (Bld)0.2 %[facility] CenterErythrocyte distribution width (RBC) [Ratio]16.9 %High11.5 - 15.0 %[facility] Hematocrit (Bld) [Volume fraction]51.3 %High39 - 49 %[facility] Hemoglobin (Bld) [Mass/Vol]17.2 g/xXAlgn50.0 - 17.0 g/dLOhioHealth Southeastern Medical Center Interpretation and review of laboratory resultsAbCreedmoor Psychiatric Center Lymphocytes (Bld) [#/Vol]1 10*3/[facility] HospitalLymphocytes/100 WBC (Bld)5.8 %[facility] City HospitalH (RBC) [Entitic mass]26.4 pgLow27 - 34 pg [facility] CenterMCHC (RBC) [Mass/Vol]33.5 g/dL32 - 36 g/dLOhioHealth Southeastern Medical CenterMCV (RBC) [Entitic vol]79 fLLow80 - 100 [facility] Monocytes (Bld) [#/Vol]1.2 10*3/uLNaval Medical Center PortsmouthMonocytes/100 WBC (Bld)6.6 %[facility] Medical CenterNeutrophils (Bld) [#/Vol]15.2 10*3/uLHigh [facility] CenterNeutrophils/100 WBC (Bld)87.1 %[facility] Platelet mean volume (Bld) [Entitic vol]9.4 fL7 - 12 [facility] Platelets (Bld) [#/Vol]153 10*3/uLOhioHealth Southeastern Medical CenterRBC (Bld) [#/Vol]6.51 10*6/uLNaval Medical Center PortsmouthWBC corrected for nucl RBC Auto (Bld) [#/Vol] 17.5HLower Bucks HospitalComprehensive metabolic panelon 03-15-8585Pzilvyw [Mass/Vol]3.8 g/dL3.2 - 5.3 g/dLOhioHealth Southeastern Medical CenterALP [Catalytic activity/Vol]57 U/L39 - 130 U/[facility] Health SystemALT No additional P-5'-P [Catalytic activity/Vol]12 U/L0 - 40 U/[facility]evilleica Health SystemAnion gap [Moles/Vol]9 mmol/L5 - 15 mmol/[facility] UnionoMedica Health SystemAST [Catalytic activity/Vol]20 U/L0 - 41 U/[facility]evilleica Health SystemBilirubin [Mass/Vol]1.3 mg/dLHigh0.3 - 1.2 mg/dLOhioHealth Southeastern Medical CenterCalcium [Mass/Vol] 8.4 mg/dLLow8.5 - 10.5 mg/dLOhioHealth Southeastern Medical CenterChloride [Moles/Vol]102 mmol/L98 - 109 mmol/[facility]eville[facility] Health SystemCO2 [Moles/Vol]28 mmol/L22 - 32 mmol/[facility] CenterCreatinine [Mass/Vol]0.98 mg/dL0.60 - 1.30 mg/dL [facility] Medical CenterComment on above:METHOD TRACEABLE TO IDDE STANDARDeGFR (CKD-EPI)non-race jojptjhbz66- UV[facility] Health University HospitalComment on above: Reported eGFR is based on the CKD-EPI 2020 equation that does not use a race coefficient. Glucose [Mass/Vol]179 mg/iLPlml77 - 99 mg/dLOhioHealth Southeastern Medical Center Interpretation and review of laboratory resultsAbCreedmoor Psychiatric Center Potassium [Moles/Vol]4.1 mmol/L3.5 - 5.0 mmol/[facility] SystemProtein [Mass/Vol]6.7 g/dL6.0 - 8.0 g/dLAtrium Health Harrisburgodium [Moles/Vol]139 mmol/L134 - 146 mmol/[facility] Medical CenterUrea nitrogen [Mass/Vol]21 mg/dL5 - 27 mg/dLOhioHealth Southeastern Medical CenterGlucose Glucometer (BldC) [Mass/Vol]on 53-80-4716Ocjurlz [Mass/Vol]178 mg/sWUdrl14 - 99 mg/dLOhioHealth Southeastern Medical Center Interpretation and review of laboratory resultsAbMilwaukee Regional Medical Center - Wauwatosa[note 3]Glucose [Mass/Vol]167 mg/fGCxft27 - 99 mg/dLOhioHealth Southeastern Medical CenterInterpretation and review of laboratory resultsAbRoxbury Treatment CenterMagnesiumon 63-77-5087Nwkxvwhxc [Mass/Vol] 2.2 mg/dL1.8 - 2.6 mg/dLOhioHealth Southeastern Medical CenterNo Panel Informationon 07-25-2024 [facility] CenterXR Abdomen APon 01-52-9617PAWX: XR ABDOMEN AP 1 VW CLINICAL INFORMATION: [...] by Segundo Fontanez MD on 07/25/2024 3:27 PMSATRIUM HEALTH CABARRUSSegundo Moore MD - 07/25/2024 EXAM: XR ABDOMEN AP [...] Segundo Fontanez MD on 07/25/2024 3:27 PM [facility] Medical CenterRadiology Study observation (narrative)[facility] Medical CenterXR Abdomen APOrdered By: Segundo Fontanez on 87-40-7305QkzUcpostTriHealth Work Phone: basic Metabolic Panelon 47-43-5965Zcstq gap [Moles/Vol]9 mmol/L5 - 15 mmol/[facility]evilleica Health SystemCalcium [Mass/Vol]8.4 mg/dLLow8.5 - 10.5 mg/dLMercy Health SystemChloride [Moles/Vol]104 mmol/L98 - 109 mmol/LProMedica Health SystemCO2 [Moles/Vol]22 mmol/L22 - 32 mmol/L [facility] CenterCreatinine [Mass/Vol]0.9 mg/dL0.60 - 1.30 mg/dLOhioHealth Southeastern Medical CenterComment on above:METHOD TRACEABLE TO IDDE STANDARDeGFR (CKD-EPI)non-race dependent- [facility] University HospitalComment on above: Reported eGFR is based on the CKD-EPI 2020 equation that does not use a race coefficient. Glucose [Mass/Vol]218 mg/jOHxnn22 - 99 mg/dLMercy Health SystemPotassium [Moles/Vol]4.2 mmol/L3.5 - 5.0 mmol/LProMedica Health SystemSodium [Moles/Vol] 135 mmol/L134 - 146 mmol/LPrSt. John of God HospitalUrea nitrogen [Mass/Vol]24 mg/dL5 - 27 mg/dLOhioHealth Southeastern Medical CenterCBC without diffon 43-92-3299Jwlijdangki distribution width (RBC) [Ratio]16.9 %High11.5 - 15.0 %[facility] Hematocrit (Bld) [Volume fraction]52.1 %High39 - 49 %[facility] Hemoglobin (Bld) [Mass/Vol]17.5 g/oLSpmf82.0 - 17.0 g/dLOhioHealth Southeastern Medical Center Interpretation and review of laboratory resultsAbnoUNC Health Rex MCH (RBC) [Entitic mass]26.4 pgLow27 - 34 [facility] HospitalMCHC (RBC) [Mass/Vol]33.6 g/dL32 - 36 g/dLOhioHealth Southeastern Medical CenterMCV (RBC) [Entitic vol]79 fLLow80 - 100 [facility] HealthcarePlatelet mean volume (Bld) [Entitic vol] 8.9 fL7 - 12 [facility] HealthcarePlatelets (Bld) [#/Vol]158 10*3/uL [facility] Medical CenterRBC (Bld) [#/Vol]6.62 10*6/uLNaval Medical Center Portsmouth WBC corrected for nucl RBC Auto (Bld) [#/Vol]16.3HTomah Memorial HospitalECG 12 leadon 66-23-6077VDNPIXVIQQUESDIjqPwcvfb Health SystemGlucose Glucometer (BldC) [Mass/Vol]on 05-69-5166Txhaxfy [Mass/Vol]151 mg/lQIuak74 - 99 mg/dLOhioHealth Southeastern Medical CenterInterpretation and review of laboratory resultsAbnoConemaugh Meyersdale Medical CenterGlucose [Mass/Vol]202 mg/yWQays38 - 99 mg/dLOhioHealth Southeastern Medical CenterInterpretation and review of laboratory resultsAbRoxbury Treatment CenterLipaseon 39-92-4597Pveejv [Catalytic activity/Vol]10 U/LLow11 - 82 U/L [facility] CenterLiver panelon 57-05-1452Tegaqil [Mass/Vol]3.8 g/dL3.2 - 5.3 g/dLProGrant Hospital SystemALP [Catalytic activity/Vol]51 U/L39 - 130 U/L [facility] CenterALT No additional P-5'-P [Catalytic activity/Vol]14 U/L0 - 40 U/LProMedParkwood Hospital SystemAST [Catalytic activity/Vol]26 U/L0 - 41 U/L [facility] Medical CenterBilirubin [Mass/Vol]1.2 mg/dL0.3 - 1.2 mg/dLOhioHealth Southeastern Medical CenterBilirubin.direct [Mass/Vol]0.2 mg/dL0.0 - 0.4 mg/dLOhioHealth Southeastern Medical CenterProtein [Mass/Vol]6.6 g/dL6.0 - 8.0 g/dLOhioHealth Southeastern Medical CenterProGrant Hospital SystemMagnesiumon 14-76-7049Zqwipxpxh [Mass/Vol]2.3 mg/dL1.8 - 2.6 mg/dL [facility] Medical CenterMagnesium [Mass/Vol]1.6 mg/dLLow1.8 - 2.6 mg/dLOhioHealth Southeastern Medical CenterMagnesium [Mass/Vol]on 74-08-5760XmqXbwmfsTriHealthNo Panel Informationon 51-28-2658Qvanbvhonpwcvp and review of laboratory resultsAbnormal [facility] SystemPhosphoruson 65-83-1569Nccwglena [Mass/Vol]3 mg/dL2.4 - 4.9 mg/dLOhioHealth Southeastern Medical CenterXR Abdomen APon 37-16-2863Wfiqiyg single view Clinical history:SBO abdominal pain bowel obstruction Comparison: None. Findings: AP supine view of the abdomen. Gas-filled dilated bowel loops are seen suggestive of evolving smallbowel obstruction. Enteric catheter tip in the region of the gastric fundus. Residual contrast in the urinary bladder. Impression: Gas-filled dilated small bowel loops concerning for evolving small bowel obstruction. Finalized by Mayito Gonzalez MD on 07/24/2024 2:21 PMSMayito Moser MD - 07/24/2024 Abdomen single view Clinical history:SBO abdominal pain bowel obstruction Comparison: None. Findings: AP supine view of the abdomen. Gas-filled dilated bowel loops are seen suggestive of evolving smallbowel obstruction. Enteric catheter tip in the region of the gastric fundus. Residual contrast in the urinary bladder. Impression: Gas-filled dilated small bowel loops concerning for evolving small bowel obstruction. Finalized by Mayito Gonzalez MD on 07/24/2024 2:21 PM [employer] HospitalRadiology Study observation (narrative)OptinuityXR Abdomen APOrdered By: Mayito Gonzalez on 44-57-2850DyjIjeido Health System Work Phone: Ambulatory Visit Summaryon 18-48-6308Bkioqpiysr Visit SummaryAmbulatory Visit Summary JOHNATHAN CORREA :1960 Visit Date:06/14/2024 Ambulatory Visit Instructions Your [...] AM EDT With: Where: [facility] [address] [place] [address] [place] [address]- Wednesday 8:00 AM EST With: Where: [facility] [address] [place] [address] [place] [address]- Wednesday 8:00 AM EST With: Where: [facility] [address] [place] [address]- Wednesday 8:00 AM EST With: Where: [facility] of [address] [place] [address]- Wednesday 10:00 AM EST With: Lety Gonzalez MD Where: [facility] of [address] [place] [address]- Wednesday 9:45 AM EST With: Lety Gonzalez MD Where: [facility] of [address] [place] [address]- Medications What How Much When Why Instructions [...] you for choosing us for your care. [facility] CenterAmbulatory Visit Summaryon 53-45-1512Wvgrwuevcw Visit SummaryAmbulatory Visit Summary JOHNATHAN CORREA :1960 Visit Date:05/31/2024 [...] AM EDT With: Where: [facility] [address] [place] [address]- Wednesday 8:00 AM EDT With: Where: [facility] of [address] [address]- Wednesday 8:00 AM EST With: Where: [facility] of [address] [address]- Wednesday 10:00 AM EST With: Lety Gonzalez MD Where: [facility] [address] [place] [address]- Medications What How Much When Why Instructions [...] you for choosing us for your care. [facility] CenterAmbulatory Visit Summaryon 04-24-7975Nllapshayy Visit SummaryAmbulatory Visit Summary JOHNATHAN CORREA :1960 Visit Date:05/02/2024 [...] AM EDT With: Where: [facility] [address] [address]- Wednesday 10:00 AM EST With: Carlos LIZAMA, Lety Scott Where: [facility] [address] [address]- Medications What How Much When Why Instructions [...] you for choosing us for your care. [facility] CenterNo Panel Informationon 46-91-2889Lgcfmmn Buavwmm079JpkzppieeAdena Health SystemAmbulatory Visit Summaryon 53-92-0813Fqkwhmfcvh Visit SummaryAmbulatory Visit Summary JOHNATHAN CORREA :1960 Visit Date:04/05/2024 [...] AM EDT With: Where: [facility] [address] [id number]- Wednesday 10:00 AM EST With: Carlos LIZAMA, Lety Scott Where: [facility] [address] [address]- Medications What How Much When Why Instructions [...] you for choosing us for your care. [facility] CenterAmbulatory Visit Summaryon 90-25-0910Nlulzbwggy Visit SummaryAmbulatory Visit Summary JOHNATHAN CORREA :1960 Visit Date:03/08/2024 Ambulatory Visit Instructions Your Diagnosis Hypogonadism male ED (erectile dysfunction) BPH without urinary obstruction Your Care Team Attending Physician - Lety [...] 8:30 AM EDT With: Where: [facility] HospitalInvalid Interpretation [id number] [place] [address] [place] [address]- \.br\ Wednesday 10:00 AMEST \.br\ With: Carlos LIZAMA, Lety Scott\.br\ Where[facility]Amb[facility] Visit SummaryAmbulatory Visit Summary SUNNY, JOHNATHAN Valentino :1960 Visit Date:03/08/2024 Ambulatory Visit Instructions Your Diagnosis Hypogonadism male ED (erectile dysfunction) BPH without urinary obstruction Your Care Team Attending Physician - Lety [...] 8:30 AM EDT With: Where: [facility]id Interpretation [address] [place] [address]- \.br\ Wednesday 10:00 AMEST \.br\ With: Lety Gonzalez MD\.br\ Where: [facility] 10-18-7742AbrdchllzWcfprdnqc From: Amelia Winslow To: PAO Gonzalez; Sent: 09/15/2023 08:41:01 EST Show up: 02/14/2024 09:40:00 EDT Subject: PSA, Hct, and T level Reminder Message Please Remember to:_have pt get PSA, T level, and Hct done prior to appt. Internal lab orders in place. Pt seen 03/08/24 w/ new labs.[facility] CenterUrology Office/Clinic Noteon 16-00-2045Sgqhkgr Office/Clinic NoteUrology Office/Clinic Note Chief Complaint 6m T Level [...] (N40.0: Benign prostatic hyperplasia without lower urinary tractsymptoms) PSA 10/21/21 - 0.7 & 41% 02/24/23 - 3.6 09/27/23 - 1.27 03/01/24 - 0.8 IPSS 2 (4). UA today negative for blood and infection. Not currently taking any BPH meds. Not voicing any urinary habit complaints. PSA has decreased. -Cont sx monitoring Follow-up With When Contact Information Carlos LIZAMA, Lety Scott, URL, [facility] [address], [place] [address]- [phone] Additional Instructions: 6 mos w/ T level [...] tobacco concerns: No. Yes, (more content not included)...NormalCincinnati Children'S Hospital Medical CenterComment on above:Result Comment: Electronically Signed By: Lety Gonzalze MD\.br\Date and Time Signed: 03/08/24 09:15EDT\.br\Electronically Co-Signed By: Amelia Winslow\.br\Date and Time Co- Signed: 03/08/24 08:46 EDTTestost Totalon 12-02-5544Rpkiugbudlvu [Mass/Vol]547 ng/dLInvalid Interpretation Rziq308-319DigmrtCincinnati Children'S Hospital Medical CenterComment on above:Result Comment: Adult male reference interval is based on a population of healthy nonobese males (BMI <30) between 19 and 39 years old. irina Lester.al. JCEM 2017,102;0390-9178. PMID: [id number]. Performed at: [facility] [address] [id number] PhD Arianne FonsecaPerformed By: #### [id number] #### [facility] [address], [place] [address]KubM6iux 68-48-3788OvI5w (Bld) [Mass fraction]8.5 %High<=5.9 [facility] Medical CenterComment on above:Performed By: #### [id number] #### [facility] [address], [place] [address]YAE With T4fr Reflexon 83-96-6278BPS Qn1.67 m[IU]/LNormal 0.34-5.60[facility] Medical CenterComment on above:Performed By: #### [id number] #### [facility] [address], [place] [address]XJHLkplbsd By: SYSTEM SYSTEM on 95-17-6590Vsgcg gap [Moles/Vol] 11 mmol/L6-16Remisol ChemComment on above:Performed By: #### [id number] #### [facility] [address], [place] [address]Nztohku [Mass/Vol]9.3 mg/dL8.9-11.1Remisol ChemComment on above:Performed By: #### [id number] #### [facility] [address], [place] [address]Jcujqvqf [Moles/Vol]95 mmol/UZqz441-294Audmpwy ChemComment on above:Performed By: #### [id number] #### [facility] [address], [place] [address]OX0 [Moles/Vol]29 mmol/A78-31Bswfmfw ChemComment on above: Performed By: #### [id number] #### [facility] [address], [place] [address]Sdfgwuwwdu [Mass/Vol]1.3 mg/dL0.5-1.3Remisol ChemComment on above:Performed By: #### [id number] #### [facility] [address] [place] [address]Hxoybfa [Mass/Vol]229 mg/bFEdsm65-397Uoxcrad ChemComment on above:Performed By: #### [id number] #### [facility] [address] [place] [address]Vowmirrfi [Moles/Vol]5.3 mmol/L3.5-5.3Remisol ChemComment on above:Performed By: #### [id number] #### [facility] [address] [place] [address]Fwkqum [Moles/Vol]130 mmol/JXch261-796Qdryjfz ChemComment on above:Performed By: #### [id number] #### [facility] [address], [place] [address]Hcbl nitrogen [Mass/Vol]20 mg/dL5-21Remisol ChemComment on above:Performed By: #### [id number] #### [facility] [address] [place] [address]UEJbk 33-36-9039Qkhc nitrogen/Creatinine [Mass ratio]15 No GtzufFbrfhg90-59HbnkvfWestern Maryland Hospital CenterComment on above:Performed By: #### [id number] #### [facility] [address], [place] [address]RVH w/ Auto DiffOrdered By: SYSTEM SYSTEM on 03-01-2024 Basophils/100 WBC (Bld)0.7 %Normal0.0-2.0Remisol HemeComment on above:Performed By: #### [id number] #### [facility] [address] [place] [address]Blhecddit/Leukocytes Auto (Bld) [Pure # fraction]0.1 E9/LNormal 0.0-0.2Remisol HemeComment on above:Performed By: #### [id number] #### [facility] [address] [place] [address]Lrwkiurpdte (Bld) [#/Vol]0.3 E9/LNormal0.0-0.5Remisol Heme Comment on above:Performed By: #### [id number] #### [facility] [address] [place] [address]Apllgmrtatk/100 WBC (Bld)3.7 %Normal0.0-8.0Remisol HemeComment on above:Performed By: #### [id number] #### [facility] [address] [place] [address]Ktmbmyavwjv distribution width (RBC) [Ratio]16.7 %High10.9-14.2 Remisol HemeComment on above:Performed By: #### [id number] #### [facility] [address] [place] [address]Jujuhmiiyb (Bld) [Volume fraction]48.4 %Ytdhwz85.7-49.0Remisol HemeComment on above:Performed By: #### [id number] #### [facility] [address] [place] [address]Qvhidypsut (Bld) [Mass/Vol]16.1 g/oKPynkjh73.5-17.5Remisol Heme Comment on above:Performed By: #### [id number] #### [facility] [address] [place] [address]Kolckzwecni (Bld) [#/Vol]1.3 E9/LNormal1.0-4.0Remisol Heme Comment on above:Performed By: #### [id number] #### [facility] [address] [place] [address]Zqlhvjlzmbk/100 WBC (Bld)15.4 %Puonoh25.0-50.0Remisol Heme Comment on above:Performed By: #### [id number] #### [facility] [address] [place] [address]WQI (RBC) [Entitic mass]26.6 pgLow27.0-34.0Remisol HemeComment on above:Performed By: #### [id number] #### [facility] [address] [place] [address]ESVX (RBC) [Mass/Vol]33.3 g/eGVulkuj24.4-36.0Remisol Heme Comment on above:Performed By: #### [id number] #### [facility] [address] [place] [address]HBX (RBC) [Entitic vol]79.9 fLLow80.0-100.0Remisol HemeComment on above:Performed By: #### [id number] #### [facility] [address] [place] [address]Zcqcuwicn (Bld) [#/Vol]0.6 E9/LNormal0.2-1.0Remisol HemeComment on above:Performed By: #### [id number] #### [facility] [address], [place] [address]Fjpxblekhjl (Bld) [#/Vol]6.3 E9/LNormal2.0-7.5Remisol Heme Comment on above:Performed By: #### [id number] #### [facility] [address], [place] [address]Qltwahiuaca/100 WBC (Bld)73.2 %Qgnvrl85.0-75.0Remisol Heme Comment on above:Performed By: #### [id number] #### [facility] [address], [place] [address]Rtvuwytn mean volume (Bld) [Entitic vol]10.0 fLNormal6.4-10.8 Remisol HemeComment on above:Performed By: #### [id number] #### [facility] [address], [place] [address]Ltvkxrkvx (Bld) [#/Vol]201.0 E9/GAezkcl166.0-500.0Remisol Heme Comment on above:Performed By: #### [id number] #### [facility] [address], [place] [address]OXU (Bld) [#/Vol]6.1 E12/LHigh4.3-5.9Remisol HemeComment on above:Performed By: #### [id number] #### [facility] [address], [place] [address]XFO corrected for nucl RBC Auto (Bld) [#/Vol]8.6 E9/LNormal 4.0-11.0Remisol HemeComment on above:Performed By: #### [id number] #### [facility] [address], [place] [address]LNUUXONELEyzuqyt By: SYSTEM SYSTEM on 04-54-9917Vnyv nitrogen/Creatinine [Mass ratio]15 mg/dtQuerzh96 - 20Remisol ChemEstimated glomerular filtration rate (GFR) non- Americanon 18-30-5874LKN/1.73 sq M.predicted among non-blacks MDRD (S/P/Bld) [Vol rate/Area]62 mL/min/1.73 m2>=59 [facility] SystemHEMATOLOGYOrdered By: SYSTEM SYSTEM on 27-30-7679Ropmfhoxa/100 WBC (Bld)7.0 %Normal4.0 - 14.0 %Remisol HemeLaboratory - Chemistry and Chemistry - challengeon 06-11-1999FUN Qn1.67 m[IU]/L0.34-5.60 [facility] SystemLaboratory - Hematology and Cell countson 10-14-4845CcQ7x (Bld) [Mass fraction]8.5 %High<=5.9[facility]a Health SystemNo Panel Informationon 76-69-9964IRR/Creatinine Ratio15 No Njhsa65-76 [facility] SystemPSA Screen, TotalOrdered By: SYSTEM SYSTEM on 72-34-3635Diiuhemh specific Ag [Mass/Vol]0.8 ng/mLNormal0.1-3.5Remisol Chem Comment on above:Interpretive Data: The concentration of PSA determined by different manufacturers can vary due to differences in assay methods and reagent specificity. Values obtained from different assay methods cannot be used interchangeably. The methodology used for this result was chemiluminescence using [employer] PSA reagent.Result Comment: The concentration of PSA determined by different manufacturers can vary due to diffe rences in assay methods and reagent specificity. Values obtained from different assay methods cannot be used interchangeably. The methodology used for this result was chemiluminescence using [employer]brite[employer] PSA reagent.Performed By: #### [id number] #### [facility] [address], [place] [address]Alhexzzco Orderon 65-13-3355Kpqunjhvw Order [id number]#1.00TIFFNormalFisher Medstar Harbor HospitaleGFROrdered By: SYSTEM SYSTEM on 46-56-7179gNIC59 mL/min/1.73 b2Egupzw>=59 Remisol ChemComment on above:Order Comment: Order added by Discern Expert. Performed By: #### [id number] #### [facility] [address], [place] [address]Vmipyxkbkh Visit Summaryon 50-18-1953Asebyglcpp Visit Summary JOHNATHAN CORREA :1960 Visit Date:02/09/2024 [...] AM EDT With: Where: [facility] [address] [place] [address]- \.br\ Medications\.br\ What How Much When Why [...] 20mg within 24 hours. \.br\ Unchanged testosterone (Depo-Testosterone 200 mg/ mL intramuscular [...] you for choosing us for your care.\.br\ \.br\[facility] Medical CenterAmbulatory Visit Summaryon 26-98-3555Zabnyllacd Visit Summary JOHNATHAN CORREA :1960 Visit Date:01/25/2024 [...] AM EDT With: Where: [facility] [place] [address] [place] [address]- \.br\ Medications\.br\ What How Much When Why [...] 20mg within 24 hours. \.br\ Unchanged testosterone (Depo-Testosterone 200 mg/ mL intramuscular solution) 200 Milligram Intramuscular Every other week Hypogonadism male ED (erectile dysfunction) Pickup at [facility]/pharmacy #[id number]\.br\ Pharmacy Information\.br\ [facility]/pharmacy #[id number]: [address] [place], [place] [id number] [phone]\.br\ Medications and Immunizations Administered\.br\ Given\.br\ Depo- Testosterone 200 mg/mL intramuscular solution, 100 mg, IntraMuscular\.br\ Allergies\.br\ metFORMIN (Stomach cramps, Diarrhea)\.br\ Problems\.br\ Ongoing - Any problem that you are currently receiving treatment for.\.br\ Asymptomatic microscopic hematuria\.br\ BPH without urinary obstruction\.br\ ED (erectile dysfunction)\.br\ Former smoker\.br\ Groin pain\.br\Hypogonadism male\.br\ Low testosterone\.br\ Nocturia\.br\ Patient Survey\.br\ You may receive a survey via text or e-mail asking about your office visit. Please share your experience with us by completing your survey. We appreciate your feedback and thank you for choosing us for your care.\.br\ \.br\[facility] Ambulatory Visit Summaryon 12-72-8575Mcpxnmssaq Visit Summary JOHNATHAN CORREA :1960 Visit Date:01/11/2024 [...] AM EDT With: Where: [facility] [address] [place] [address]- \.br\ Medications\.br\ What How Much When Why [...] 20mg within 24 hours. \.br\ Unchanged testosterone (Depo-Testosterone 200 mg/ mL intramuscular [...] you for choosing us for your care.\.br\ \.br\[facility] Medical CenterAmbulatory Visit Summaryon 87-46-8187Fraiyzfchd Visit Summary JOHNATHAN CORREA :1960 Visit Date:12/28/2023 [...] AM EDT With: Where: [facility] [address] \.br\ Medications\.br\ What How Much When Why [...] 20mg within 24 hours. \.br\ Unchanged testosterone (Depo-Testosterone 200 mg/ mL intramuscular [...] you for choosing us for your care.\.br\ \.br\[facility] Medical CenterAmbulatory Visit Summaryon 61-52-5118Hroorqxhyv Visit Summary JOHNATHAN CORREA :1960 Visit Date:12/14/2023 [...] AM EDT With: Where: [facility] [place] [address] [place] [address]- \.br\ Medications\.br\ What How Much When Why [...] 20mg within 24 hours. \.br\ Unchanged testosterone (Depo-Testosterone 200 mg/ mL intramuscular [...] you for choosing us for your care.\.br\ \.br\[facility] Medical CenterBasophils Auto (Bld) [#/Vol]on 32-83-3457Qoevfgcqm (Bld) [#/Vol]0.1 10 3/uL0.0-0.1 [facility] SystemBasophils/100 WBC Auto (Bld)on 12-01-2023 Basophils/100 WBC (Bld)0.8 %0.2-2.0[facility] SystemCholesterol in LDL Calc [Mass/Vol]on 66-63-1860Qexssanxovw in LDL [Mass/Vol]69.0 mg/dL [facility] SystemComment on above:<100 mg/dl GTMYHWX275-284 mg/dl NEAR OR ABOVE QMMTCNX246-965 mg/dl BORDERLINE KFBX803-888 mg/dl HIGH>190 mg/dl VERY HIGHCholesterol in VLDL Calc [Mass/Vol]on 11-37-5379Tnlvbnxozrl in VLDL [Mass/Vol]15.2 mg/dLAdena Health SystemEosinophils/100 WBC Auto (Bld)on 35-36-8557Llhrwikhryd/100 WBC (Bld)5.6 %0.9-7.0[facility] SystemErythrocyte distribution width Auto (RBC) [Ratio]on 12-01-2023 Erythrocyte distribution width (RBC) [Ratio]15.8 %11.0-15.0[facility] SystemEstimated glomerular filtration rate (GFR) non- Americanon 89-97-0166DMC/1.73 sq M.predicted among non-blacks MDRD (S/P/Bld) [Vol rate/Area]mL/min/{1.73_m2}>=60[facility] SystemGlobulin Calc (S) [Mass/Vol]on 91-92-5925Rwofxftg (S) [Mass/Vol]3.5 g/dLAdena Health SystemGlucose mean value [Mass/volume] in Blood Estimated from glycated hemoglobinon 69-06-5643Yymzkjz glucose Estimated from glycated hemoglobin (Bld) [Mass/Vol]209 mg/dLAdena Health SystemHematocrit Auto (Bld) [Volume fraction]on 92-61-2957Ogehnsrauh (Bld) [Volume fraction]47.7 %42.0-54.0 [facility] SystemHemoglobin [Mass/volume] in Bloodon 12-01-2023 Hemoglobin (Bld) [Mass/Vol]15.7 g/dL14.0-18.0[facility] Laboratory - Chemistry and Chemistry - challengeon 05-09-8701Gjixeln [Mass/Vol] 3.7 g/dL3.4-5.0[facility] SystemALP [Catalytic activity/Vol]67 U/X14-530HqqzyraaxAdena Health SystemALT [Catalytic activity/Vol]24 U/L 16-63[facility] SystemAST [Catalytic activity/Vol]28 U/L15-37 [facility] SystemBilirubin [Mass/Vol]0.9 mg/dL0.2-1.0[facility] SystemCalcium [Mass/Vol]8.7 mg/dL8.5-10.1FFort Hamilton HospitalChloride [Moles/Vol]101 mmol/X81-972AkanquujfAdena Health SystemCholesterol [Mass/Vol]120 mg/dL<=200[facility] Cholesterol in HDL [Mass/Vol]36 mg/aJ27-08WnhprdfblAdena Health System Comment on above:> or =60 mg/dl - LOW CARDIOVASCULAR RISK<40 mg/dl - HIGH CARDIOVASCULAR RISKCO2 [Moles/Vol]28.9 mmol/L21.0-32.0[facility] SystemCreatinine [Mass/Vol]1.19 mg/dL0.70-1.30[facility] GFR/1.73 sq M.predicted MDRD (S/P/Bld) [Vol rate/Area]mL/min/{1.73_m2}>=60 [facility] SystemGlucose [Mass/Vol]152 mg/sB69-306RlcocquooAdena Health SystemPotassium [Moles/Vol]4.5 mmol/L3.5-5.1FFort Hamilton HospitalProtein [Mass/Vol]7.2 g/dL6.4-8.2FFort Hamilton Hospital Sodium [Moles/Vol]138 mmol/M231-182FhmlcjrtmAdena Health SystemTriglyceride [Mass/Vol]76 mg/dL<=150[facility] SystemUrea nitrogen [Mass/Vol]23.0 mg/dL7.0-18.0[facility] SystemUrea nitrogen/Creatinine [Mass ratio]19.3 mg/mgAdena Health System Laboratory - Hematology and Cell countson 25-01-1477BtJ3a (Bld) [Mass fraction] 8.9 %4.5-6.2FFort Hamilton HospitalComment on above:ADA RECOMMENDED LIMIT 4.0 - 6.0ADA THERAPEUTIC TARGET < 7.0ACTION SUGGESTED> 7.0Immature granulocytes/100 WBC (Bld)0.2 %0.0-0.5FFort Hamilton Hospital Leukocytes [#/volume] corrected for nucleated erythrocytes in Blood by Automated counon 98-32-7513ATJ corrected for nucl RBC Auto (Bld) [#/Vol]8.5 10 3/uL 4.0-11.0[facility] SystemLymphocytes Auto (Bld) [#/Vol]on 33-62-7864Rquzlmycotp (Bld) [#/Vol]1.6 10 3/uL1.2-3.8[facility] SystemLymphocytes/100 WBC Auto (Bld)on 90-95-9098Iovemwtmvdd/100 WBC (Bld)19.2 % 20.5-60.0[facility] SystemMCH Auto (RBC) [Entitic mass]on 58-28-7723JJR (RBC) [Entitic mass]26.2 pg25.9-34.0[facility] SystemMCHC Auto (RBC) [Mass/Vol]on 90-15-6781BFNG (RBC) [Mass/Vol]32.9 g/dL 29.9-35.2FFort Hamilton HospitalMCV Auto (RBC) [Entitic vol]on 01-22-8541CKL (RBC) [Entitic vol]79.6 fL80.0-94.0[facility] SystemMonocytes Auto (Bld) [#/Vol]on 70-62-7690Hagjamdmp (Bld) [#/Vol]0.7 10 3/uL0.3-0.8[facility] SystemMonocytes/100 WBC Auto (Bld)on 46-94-9402Tituvevpw/100 WBC (Bld)7.6 %1.7-12.0[facility] Neutrophils Auto (Bld) [#/Vol]on 22-93-1488Kyzyzybjvqm (Bld) [#/Vol]5.7 10 3/uL 1.4-6.5FFort Hamilton HospitalNeutrophils/100 WBC Auto (Bld)on 63-95-0590Burpxvwzena/100 WBC (Bld)66.6 %43.0-75.0[facility] SystemNo Panel Informationon 43-16-6420Nmedzqmuuor # (Auto)0.5 10 3/uL0.0-0.7 [facility] SystemImmature Granulocyte # (Auto)0.02 10 3/uL 0.00-0.03[facility] SystemProstate Specific Antigen Screen1.21 ng/mL<=4.00[facility] SystemPlatelet mean volume Auto (Bld) [Entitic vol]on 54-29-8173Vazxwyvt mean volume (Bld) [Entitic vol]11.1 fL 9.5-13.5FFort Hamilton HospitalPlatelets Auto (Bld) [#/Vol]on 34-62-3008Iiltrugux (Bld) [#/Vol]216 10 3/mB736-807LemvadktdAdena Health SystemRBC Auto (Bld) [#/Vol]on 71-05-0846FTY (Bld) [#/Vol]5.99 10 6/uL4.70-6.10 [facility] Medical Centererum or plasma albumin/globulin mass ratioon 74-89-4592Eschvyi/Globulin [Mass ratio]1.1 {ratio}[facility] Medical Centererum or plasma anion gap determinationon 87-62-9793Vhbyf gap [Moles/Vol] 12.6 mmol/LFParkwood Hospitalerum or plasma total cholesterol/high density lipoprotein (HDL) cholesterol mass aydin 12-01-2023 Cholesterol.total/Cholesterol in HDL [Mass ratio]3.3 {ratio}[facility] SystemComment on above:3.3 - 4.4 LOW RISK4.4 - 7.1 AVERAGE RISK7.1 - 11.0 MODERATE RISK>11.0 HIGH RISKAmbulatory Visit Summaryon 17-12-2491Byypntbfpp Visit Summary JOHNATHAN CORREA :1960 Visit Date:11/30/2023 [...] AM EDT With: Where: [facility] [place] [address] [place] [address]- \.br\ Medications\.br\ What How Much When Why [...] 20mg within 24 hours. \.br\ Unchanged testosterone (Depo-Testosterone 200 mg/ mL intramuscular [...] you for choosing us for your care.\.br\ \.br\[facility] CenterAmbulatory Visit Summaryon 55-57-2746Xykqxeanwi Visit Summary JOHNATHAN CORREA :1960 Visit Date:11/16/2023 [...] AM EDT With: Where: [facility] [place] [id number] \.br\ Medications\.br\ What How Much When Why [...] 20mg within 24 hours. \.br\ Unchanged testosterone (Depo-Testosterone 200 mg/ mL intramuscular [...] you for choosing us for your care.\.br\ \.br\[facility] CenterAmbulatory Visit Summaryon 21-11-6425Iwjuupeegt Visit Summary JOHNATHAN CORREA :1960 Visit Date:10/20/2023 [...] AM EST With: Where: [facility] [address] [place] [id number]- \.br\ Medications\.br\ What How Much When Why [...] 20mg within 24 hours. \.br\ Unchanged testosterone (Depo-Testosterone 200 mg/ mL intramuscular [...] you for choosing us for your care.\.br\ \.br\[facility] CenterAmbulatory Visit Summaryon 71-61-1910Cjptxkkqrg Visit Summary JOHNATHAN CORREA :1960 Visit Date:09/29/2023 [...] Lety Gonzalez MD [facility]Amb[facility] Visit Summaryon 44-89-7487Llfwdbarcn Visit Summary JOHNATHAN CORREA :1960 Visit Date:09/15/2023 Ambulatory Visit Instructions Your Diagnosis Hypogonadism male ED (erectile dysfunction) BPH without urinary obstruction Tests Performed Urnls Dip Stick Auto w/o Microscopy POC 00984 Your Care Team Attending Physician - Lety [...] AM EST With: Where: [facility] [address] [place] [address]- \.br\ You Need to Schedule the Following Appointments\.br\ Follow Up with Lety Gonzalez MD, URL, URO When: \.br\ Comments:\.br\ 3 mos w/ PSA, T level, and HCT\.br\ Where:\.br\ [address]br\ [place] [address].br\ [phone]\.br\ You Need to Complete the Following\.br\ Hematocrit, [...] exceed 20mg within 24 hours. Pickup at [facility]\.br\ Unchanged amlodipine (amLODIPine 5 mg Tab) By Mouth Every day Contact prescribing physician if questions or concerns \.br\ Unchanged ascorbic acid (Vitamin C 250 mg oral tablet) By Mouth Every day Contact prescribing physician if questions or concerns \.br\ Unchanged atorvastatin (esperanza rvastatin 10 mg Tab) By Mouth Every day [...] if questions or concerns \.br\ Unchanged testosterone (Depo-Testosterone 200 mg/ mL intramus cular solution) 200 Milligram Intramuscular Every other week Hypogonadism male ED (erectile dysfunction) Contact prescribing physician if questions or concerns \.br\ Pharmacy Information\.br\ [facility]: [address], [place] [id number] [phone]\.br\ Test Results\.br\ Urnls Dip Stick Auto w/o Microscopy POC 59682 (09/15/2023)\.br\ Bilirubin Urine Dipstick - Negative\.br\ Blood Urine Dipstick - Trace-intact\.br\ Glucose Urine Dipstick - 3+ 1000 mg/dl\.br\ Ketones Urine Dipstick - Negative\.br\ Leukocytes Urine Dipstick - Negative\.br\ Nitrite Urine Dipstick - Negative\.br\ Protein Urine Dipstick - Negative\.br\ Specific Tyro Urine Dipstick - 1.015\.br\ Urine Pino earance Urine Dipstick - Clear\.br\ Urine Color Urine Dipstick - Yellow\.br\ Urobilinogen Urine Dipstick - Normal 0.2-1 EU/dl\.br\ pH Urine Dipstick - 5.5\.br\ Medications and Immunizations Administered\.br\ Given\.br\ Depo- Testosterone 200 mg/mL intramuscular solution, 200 mg, IntraMuscular. For: H ypogonadism male\.br\ Not Given\.br\ influenza virus vaccine, inactivated, [...] a symptom of an underlying disorder and isnot considered a disease. ED may include:\.br\ ? \.br\ Inability to get an erection.\.br\ ? \.br\ Lack of enough hardness of the erection to allow penetration.\.br\ ? \.br\ Loss of erection before sex is finished.\.br\ What are the causes?\.br\ This condition may be caused by:\.br\ ? \.br\ Physicalcauses, such as:\.br\ ? \.br\ Artery problems. This may include heart disease, high blood pressure, atherosclerosis, and diabetes.\.br\ ? \.br\ Hormonal problems, such as low testosterone.\.br\ ? \.br\ Obesity.\.br\ ? \.br\ Nerve problems. This may include back or pelvic injuries, multiple sclerosis, Parkinson's disease, spinal cord injury, and stroke.\.br\ ? \.br\ Certain medicines, such as:\.br\ ? \.br\ Pain relievers.\.br\ ? \.br\ Antidepressants.\.br\ ? \.br\ Blood pressure medicines and water pills (diuretics).\.br\ ? \.br\ Cancer medicines.\.br\ ? \.br\ Antihistamines.\.br\ ? \.br\ Muscle relaxants.\.br\ ? \.br\ Lifestyle [...] physical exam to find other diseases or specificproblems with the penis.\.br\ ? \.br\ Asking you detailed questions about the problem.\.br\ ? \.br\Doing tests, such as:\.br\ ? \.br\ Blood tests to check for diabetes mellitus or high cholesterol, or to measure hormone levels.\.br\ ? \.br\ Other tests to check for underlying health conditions.\.br\ ? \.br\ An ultrasound exam to check for scarring.\.br\ ? \.br\ A test to check blood flow to the penis.\.br\ ? \.br\ Doing a sleep study at home [facility] Educationon 56-67-3056Koxndyz EducationUrology Erectile Dysfunction Erectile dysfunction (ED) is the inability to get or keep an erection in order to have sexual intercourse. ED is considered a symptom of an underlying disorder and is not considered a disease. ED mayinclude: ? Inability to get an erection. ? [...] The tube is inserted into the opening atthe tip of the penis, which is the opening of the urethra. A tiny pellet of medicine is put in the urethra. The pellet dissolves and enhances erectile function. This is also called MUSE (medicated urethral system for erections) therapy. ? Vacuum pump. This is a pump with a ring on it. The pump and ring are placed on the penis and usedto create pressure that helps the penis become [...] these instructions at home: Medicines ? Take rmit-wiy-kukutab and prescription medicines only as told by [...] to prevent headaches while taking ED medicines. Thesemedicines may cause a sudden headache due to the increase in blood flow in your body. General instructions ? Exercise regularly, as directed by your health care provider. Work with your health care providerto lose weight, if needed. ? Do not use any products that contain nicotine or tobacco. These products include cig (more content not included)...[facility] Urology Office/Clinic Noteon 29-79-7604Dhnovns Office/Clinic NoteChief Complaint 3 month follow up HPI Staff [...] well on the 200mg q2wks vs 150mg. Wouldlike to continue current dose. Denies side effects [...] Cialis. Rx sent again to [facility] in [place]. Risks/benefits discussed. -Diet and exercise 3. BPH without urinary obstruction (N40.0: Benign prostatic hyperplasia without lower urinary tractsymptoms) PSA 10/21/21 - 0.7 & 41% 02/24/23 - 3.6 06/02/23 - 1.27 IPSS (4). Not currently taking any BPH meds. Denies any bothersome urinary habits. UA today negative for infection. -PSA in 6 mos due to TRT (nurse visit prior to appt) Follow-up With When Contact Information Carlos LIZAMA, Lety Scott, URL, URO [address] [phone] Additional Instructions: 3 mos w/ PSA, T [...] 15 mg oral ta (more content not included)...NormalCincinnati Children'S Hospital Medical CenterComment on above:Result Comment: Electronically Signed By: Lety Gonzalez MD\.br\Date and Time Signed: 09/15/23 08:41EST\.br\Electronically Co-Signed By: Amelia Winslow\.br\Date and Time Co-Signed: 09/15/23 08:37 ESTTestost Totalon 71-96-5765Sueaycjqcpwk [Mass/Vol]478 ng/dLInvalid Interpretation [id number] [facility] Medical CenterComment on above:Result Comment: Adult male reference interval is based on a population of healthy nonobese males (BMI <30) between 19 and 39 years old. irina Lester.al. JCEM 2017,102;2070-8431. PMID: [id number]. Performed at: [facility] [address] [id number] PhD Arianne FonsecaPerformed By: #### [id number] ####[facility] [address] [place], [place] [address]Phmxurqnov Visit Summaryon 02-03-9630Qlrnftninr Visit Summary JOHNATHAN CORREA :1960 Visit Date:09/08/2023 [...] Lety Gonzalez MD [facility]Ambulatory Visit Summaryon 22-96-2261Rwfqxthscz Visit Summary SUNNY, JOHNATHAN Valentino :1960 Visit Date:09/01/2023 Ambulatory Visit Instructions Your Diagnosis Hypogonadism male Your Care Team Attending Physician - Lety Goznalez MD Primary Care Physician - LUIS JEFFREY [...] LIZAMA, Lety Scott [facility] CenterAmbulatory Visit Summaryon 15-15-7559Glkcrtudqy Visit Summary JOHNATHAN CORREA :1960 Visit Date:08/04/2023 [...] AM EST With: Where: [facility] [address] [place] [address]- \.br\ Medications\.br\ What How Much When Why [...] needed for for erectile dysfunction Do not cdtfol60ik within 24 hours. \.br\ Unchanged testosterone (Depo-Testosterone 200 mg/ mL intramuscular [...] you for choosing us for your care.\.br\ \.br\[facility] CenterAmbulatory Visit Summaryon 35-39-3914Mcrzhnasel Visit Summary JOHNATHAN CORREA :1960 Visit Date:07/21/2023 [...] AM EST With: Where: [facility] Interpretation [address] [facility] [place] [address] \.br\ Wednesday 8:00 AM EST \.br\ With: Carlos LIZAMA, Lety Scott\.br\ [facility] Visit Summaryon 14-71-1448Xxybdehrsy Visit Summary JOHNATHAN CORREA :1960 Visit Date:07/07/2023 Ambulatory Visit Instructions Your [...] 8:00 AM EST With: [facility] [address] [facility] [place] [address]- [phone]\.br\ Wednesday 8:00 AM EST \.br\ With:\.br\ Where: [facility] Ambulatory Visit Summaryon 46-56-6953Wjhrcfuezi Visit Summary JOHNATHAN CORREA :1960 Visit Date:06/23/2023 Ambulatory Visit Instructions Your [...] 8:00 AM EDT With: [facility] [address] [facility] [place] [address] \.br\ Wednesday 8:00 AM EST \.br\ With:\.br\ Where: [facility] Ambulatory Visit Summaryon 91-18-0169Tnoxqlmydv Visit Summary JOHNATHAN CORREA :1960 Visit Date:06/09/2023 Ambulatory Visit Instructions Your Diagnosis Hypogonadism male BPH without urinary obstruction ED (erectile dysfunction) Tests Performed Urnls Dip Stick Auto w/o Microscopy POC 45562 Your Care Team Attending Physician - Carlos [...] AM EDT With: Where: [facility] [place] [id number] \.br\ You Need to Schedule the Following Appointments\.br\ Follow Up with Carlos LIZAMA, Lety Scott, URL, URO When: In 3 months\.br\ Comments:\.br\w/ T Level, HCT, and PSA\.br\ Where:\.br\ Medications\.br\ What How Much When Why Instructions\.br\New tadalafil (Cialis 20 mg Tab) 1 Tablets By Mouth As Directed as needed for for erectile dysfunction Refills: 3 Do not exceed 20mg within 24 hours. Pickup at [facility]/pharmacy #[id number]\.br\ Changed testosterone (Depo-Testosterone 200 mg/ mL intramuscular solution) 200 Milligram Intramuscular Every other week Hypogonadism male ED (erectile dysfunction) Pickup at [facility]/pharmacy #[id number]\.br\ Unchanged amlodipine (amLODIPine 5 mg Tab) [...] physician if questions or concerns \.br\ Unchanged omeprazole(omeprazole 40 mg Cap-DR) By Mouth Every day Contact prescribing physician if questions or concerns\.br\ Pharmacy Information\.br\ [facility]/pharmacy #[id number]: [address] [place], [place] [phone] [phone]\.br\ \.br\ What How Much When Comments\.br\ Stop Taking sildenafil (Viagra 100 mg Tab) 1 Tablets By Mouth As Directed as needed for for erectile dysfunction 1 hour before sexual activity. Startwith 1/ 2 tablet. Not to exceed 1 tab (100 mg) in 24 hours \.br\ Test Results\.br\ Urnls Dip Stick Auto w/o Microscopy POC 41362 (06/09/2023)\.br\ Bilirubin Urine Dipstick - Negative\.br\ Blood Urine Dipstick - Negative\.br\ Glucose Urine Dipstick - 3+ 1000 mg/dl\.br\ Ketones Urine Dipstick - Negative\.br\ Leukocytes Urine Dipstick - Negative\.br\ Nitrite Urine Dipstick - Negative\.br\ Protein Urine Dipstick - Negative\.br\ Specific Tyro Urine Dipstick - 1.010\.br\ Urine Appearance Urine [...] having a level of testosterone that is lowerthan normal. Testosterone is a chemical, or hormone, [...] gives men energy and a sense of well- being.\.br\ Testosterone normally decreases as men age and the testicles make less testosterone. Testosterone levels can vary from man to man. Not all men will have signs and symptoms of low testosterone. Weight, alcohol use, med icines, and certain medical conditions can affect a [...] with.\.br\ ? \.br\ Disease of the pituitary gland.This gland is in the brain. It produces [...] sex (low sex drive).\.br\ ? \.br\ Inability tohave or maintain an erection (erectile dysfunction).\.br\ ? \.br\ Feeling tired (fatigue).\.br\ ? \.br\ [...] blood tests before getting a diagnosis of hypogonadism.\.br\ Depending on your medical history and test results, your health care provider may also do other tests to find the cause of low testosterone.\.br\ How is this treated?\.br\ This condition is treated with testosterone replacement therapy. Testosterone can be given by:\.br\ ? \.br\ Injection or through pellets inserted under the skin.\.br\ ? \.br\ Gels or patches placed on the skin or in the mouth.\.br\ Testosteronetherapy is not for everyone. It has risks and side effects. Your health care provider will consider your medical history, your risk for prostate cancer, your age, and your symptoms before putting youon testosterone replaFishWestern Maryland Hospital CenterPatient Educationon 68-20-8511Igmseuw EducationUrology Hypogonadism, Male Male hypogonadism is a condition [...] testosterone levels. This includes blood tests. Testosterone levelscan change throughout the day. Levels are highest in the morning. You may need to have repeat bloodtests before getting a diagnosis of hypogonadism. Depending [...] Follow these instructions at home: ? Take gjif-rfm-ifdedcp and prescription medicines only as told by [...] age is the most common cause of thiscondition. ? Low testosterone can also be caused by many diseases and conditions that affect the testicles andthe making of testosterone. ? This condition is treated with testosterone replacement therapy. ? There are risks and side effects of testosterone therapy. Your health care provider will consideryour age, medical history, symptoms, and risks for prostate cancer before putting you on testosterone therapy. This information is not intended to replace advice given to you by your health care provider. Make sure you discuss any questions you have with your health care provider. Document Revised: 04/24/2021 Document (more content not included)...NormalHugh Chatham Memorial Hospitaler [facility] and Hospitalcreenson 08-82-7212Dxswpck [id number]:127NormalHighland District [id number]#1.00CD:127NormSelect Medical Specialty Hospital - YoungstownUrology Office/Clinic Noteon 09-59-0509Zpnmzch Office/Clinic NoteChief Complaint 4m w/labs HPI Staff 6m Testosterone, [...] (N40.0: Benign prostatic hyperplasia without lower urinary tractsymptoms) PSA 10/2021 - 0.7, 41% free 02/24/23 [...] exam and evaluation, counseling and educating the patientand ordering medications, tests in caring for the patient. Follow-up With When Contact Information Carlos LIZAMA, Lety Scott URL, URO In 3 months Additional Instructions: w/ T Level, HCT, and PSA Patient Education Hypogonadism, Male I, Judith Bell, personally scribed for Dr. Gonzalez on 06/09/2023 08:22:33. . Documentation recorded by the scribeJudith, accurately reflects the services(s) I performed and decisions made by me. Authenticated by Dr. Gonzalez on 06/09/2023 14:46:51. Problem List/Past Medical History Ongoing Asymptomatic microscopic hematuria BPH without urinary obstruction ED (erectile dysfunction) Former smoker Groin pain Hypogonadism male Low testosterone Nocturia Historical No qualifying data Procedure/Surgical History Aortic stent, Big toe, Tonsillectomy. Medications amLODIPine 5 mg Tab, O (more content not included)...[facility] CenterComment on above:Result Comment: Electronically Signed By: Carlos LIZAMA, Lety Scott\.br\Date and Time Signed: 06/09/23 14:47EDT\.br\Electronically Co-Signed By: Judith Bell\.br\Date and Time Co-Signed: 06/09/23 08:22 EDTLab Reportson 08-96-1492Jnj [id number]:127NoBlanchard Valley Health System Bluffton HospitalLab Reports [id number]#1.00CD:127[facility] CenterAmbulatory Visit Summaryon 67-18-8161Voqlkrnizv Visit Summary JOHNATHAN CORREA :1960 Visit Date:06/02/2023 [...] Lety Gonzalez MD [facility] CenterLab Reportson 80-89-3331Ape Reports [id number]:127[facility] CenterAmbulatory Visit Summaryon 82-18-5238Cevvuesdjw Visit Summary JOHNATHAN CORREA :1960 Visit Date:05/12/2023 Ambulatory Visit Instructions Your Diagnosis ED (erectile dysfunction) Your Care Team Attending Physician - Lety Gonzalez MD Primary Care Physician - ULIS JEFFREY MD This Is Your Medications List [...] [facility] CincinnatiInvalid Interpretation [address] [place] [address] [phone]\.br\ Wednesday 8:45 AM EDT \.br\ With: Lety Gonzalez MD\.br\ [facility] Summaryon 83-28-0010Dsrwlcrcdj Visit Summary JOHNATHAN CORREA :1960 Visit Date:04/28/2023 Ambulatory Visit Instructions Your [...] AM EDT With: Where: [facility] Interpretation [address] [place] [address]- \.br\ Wednesday 8:45 AM EDT \.br\ With: Carlos LIZAMA, Lety Scott\.br\ Where: [facility] Visit Summaryon 89-39-2805Rpkqragfmy Visit Summary JOHNATHAN CORREA :1960 Visit Date:04/14/2023 [...] [facility] CincinnatiInvalid Interpretation [address] [place] [address]- \.br\ Wednesday 8:00 AM EDT \.br\ With:\.br\ Where: [facility] Ambulatory Visit Summaryon [id number] Visit Summary JOHNATHAN CORREA :1960 Visit Date:03/17/2023 [...] 8:00 AM EDT With: Where[facility] [place] [address]- \.br\ You Need to Schedule the Following Appointments\.br\ Follow Up with Carlos LIZAMA, SHAYY Hernandes, URO When: In 2 weeks\.br\ Comments:\.br\ Will return in 2wks for next injection.\.br\ Will see Dr Gonzalez end of May with PSA T & HCT & HGB.\.br\ Where:\.br\ [address] [facility]\.br\ [place] [address]\.br\ Medications\.br\ What How Much When Instructions\.br\ Unchanged [...] before sexual activity. Start with 1/ 2 tablet.Not to exceed 1 tab (100 mg) in 24 hours \.br\ Unchanged testosterone (testosterone cypionate 200 mg/ mL IM Erin) 150 Milligram Intramuscular Every other week\.br\ Medications and Immunizations Adminis tered\.br\ Given\.br\ Depo-Testosterone 200 mg/mL intramuscular solution, 150 mg, IntraMuscular. For: Hypogonadism male\.br\ Allergies\.br\ metFORMIN (Stomach cramps, Diarrhea)\.br\ Problems\.br\ Ongoing - Any problem that you are currently receiving treatment for.\.br\ Asymptomatic microscopic hematuria\.br\ BPH without urinary obstruction\.br\ ED (erectile dysfunction)\.br\ Former smoker\.br\ Groin pain\.br\ Hypogonadism male\.br\ Low testosterone\.br\ Nocturia\.br\ \.br\[facility] HospitalNurse Consultation Noteon [id number] Consultation NoteReason for Visit Testosterone Injection Assessment/Plan 1. Hypogonadism [...] tablet, Oral, Daily Allergies metFORMIN (Stomach cramps, Diarrhea)NormalFisher Medstar Harbor HospitalCHEMISTRY Ordered By: SYSTEM SYSTEM on 66-48-5850Pqyjampc specific Ag [Mass/Vol]3.6 ng/mL High0.1 - 3.5 ng/mLINSPIRE [facility] RemisolHEMATOLOGYOrdered By: Emily Churchill on 02-24-2023 Hematocrit (Bld) [Volume fraction]46.7 %Kuqscy89.7 - 49.0 %[facility] HemeAutoSS Hemoglobin (Bld) [Mass/Vol]15.6 g/dXChdyza54.5 - 17.5 gm/dLINSPIRE SPECIALTY HOSPITAL [facility] HemeAutoSSFalls Screening (Age 18+)on [id number] risk assessmentc) Not medically indicated [facility] [address] DO Work Phone: Tobacco use status CPHSb) NoMP-[facility] [place] 250 DO Work Phone: Falls Screening (Age 18+)YesMP-[facility] [place] 250 DO Work Phone: CBC AUTO DIFFon [id number] #0.1 103/ulNormal 0.0-0.1The [facility] HospitalComment on above:Performed By: #### CVDTBH #### [facility] [address] [place] [address] Dr. Talia PlascenciaBasophils/100 WBC (Bld)0.6 %Normal0.2-2.0The [facility] Comment on above:Performed By: #### CVDTBH #### [facility] [address] [place] [address] Dr. Talia Oliver #0.5 103/ulNormal0.0-0.7The [facility] HospitalComment on above: Performed By: #### CVDTBH #### [facility] [address] [place] [address] Dr. Talia Schwabosinophils/100 WBC (Bld)5.4 %Normal0.9-7.0[facility] Comment on above:Performed By: #### CVDTBH #### [facility] [address] [place] [address] Dr. Talia Schwabrythrocyte distribution width (RBC) [Ratio]15.6 %Critically high 11.0-15.0The [facility] HospitalComment on above:Performed By: #### CVDTBH #### [facility] [address] [place] [address] Dr. Talia Abdullahiatonat (Bld) [Volume fraction]45.6 %Nchbsf15.0-54.0The [facility] HospitalComment on above:Performed By: #### CVDTBH #### [facility] [address] [place] [address] Dr. Yilan ChangHemoglobin (Bld) [Mass/Vol]15.8 g/eQAzwcjr80.0-18.0The [facility] HospitalComment on above:Performed By: #### CVDTBH #### [facility] [address] [place] [address] Dr. Talia Capone #0.02 10e3/ulNormal0.00-0.03The [facility] HospitalComment on above:Performed By: #### CVDTBH #### [facility] [address] [place] [address] Dr. Talia Capone %0.2 %Normal0.0-0.5The [facility] HospitalComment on above: Performed By: #### CVDTBH #### [facility] [address] [place] [address] Dr. Talia Carbajal #1.8 103/ulNormal1.2-3.8The [facility] HospitalComment on above:Performed By: #### CVDTBH #### [facility] [address] [place] [address] Dr. Talia Morelhocytes/100 WBC (Bld)22.0 %Gfiprw30.5-60.0The [facility] HospitalComment on above:Performed By: #### CVDTBH #### [facility] [address] [place] [address] Dr. Talia DelucaUAL DIFF REQNONormalThe [facility] HospitalComment on above: Performed By: #### CVDTBH #### [facility] [address] [place] [address] Dr. Talia German (RBC) [Entitic mass]27.4 usQsmclt37.9-34.0The [facility] HospitalComment on above:Performed By: #### CVDTBH #### [facility] [address] [place] [address] Dr. Talia German (RBC) [Mass/Vol]34.6 g/pGRdzpgu27.9-35.2The [facility] HospitalComment on above:Performed By: #### CVDTBH #### [facility] [address] [place] [address] Dr. Talia GermanV (RBC) [Entitic vol]79.2 fLCritically low80.0-94.0The [facility] Daytonment on above:Performed By: #### CVDTBH #### [facility] [address] [place] [address] Dr. Talia Echols #0.7 103/ulNormal0.3-0.8The [facility] HospitalComment on above:Performed By: #### CVDTBH #### [facility] [address] [place] [address] Dr. Talia Moranocytes/100 WBC (Bld)7.9 %Normal1.7-12.0The [facility] on above:Performed By: #### CVDTBH #### [facility] [address] [place] [address] Dr. Talia Malagon #5.3 103/ulNormal1.4-6.5The [facility] HospitalComment on above:Performed By: #### CVDTBH #### [facility] [address] [place] [address] Dr. Talia Maddenutrophils/100 WBC (Bld)63.9 %Qdtdvl14.0-75.0The [facility] Daytonment on above:Performed By: #### CVDTBH #### [facility] [address] [place] [address] Dr. Talia Swartzlet mean volume (Bld) [Entitic vol]10.8 fLNormal9.5-13.5The [facility] HospitalComment on above:Performed By: #### CVDTBH #### [facility] [address] [place] [address] Dr. Talia PlascenciaPLT218 103/wqQtmjec212-560Gco [facility] HospitalComment on above: Performed By: #### CVDTBH #### [facility] [address] [place] [address] Dr. Talia PlascenciaRBC5.76 106/ulNormal4.70-6.10The [facility] HospitalComment on above:Performed By: #### CVDTBH #### [facility] [address] [address] [address] Talia PlascenciaWBC8.3 103/ulNormal4.0-11.0The [facility] HospitalCommclaren oakland on above: Performed By: #### CVDTBH #### [facility] [address] [address] [address] Talia PlascenciaGLYCOHEMOGLOBIN A1Con 72-30-7122TLU RECOMMENDATIONSEE BELOWNoSalem Regional Medical CenterComment on above:Result Comment: ADA RECOMMENDED LIMIT 4.0 - 6.0 ADA THERAPEUTIC TARGET < 7.0 ACTION SUGGESTED > 7.0Performed By: #### INFLUAB #### [facility] [address] [place] [address] Dr. Talia PlascenciaGlucose [Mass/Vol]203 mg/dLNormParkview Health Montpelier HospitalComment on above:Performed By: #### INFLUAB #### [facility] [address] [place] [address] Dr. Talia PlascenciaHbA1c (Bld) [Mass fraction]8.7 %Critically high4.5-6.2The [facility] HospitalComment on above:Performed By: #### INFLUAB #### [facility] [address] [place] [address] Dr. Talia PlascenciaLIPID PROFILEon 43-12-2113CTFI-HDL RATIO NORMSEE Corey HospitalComment on above:Result Comment: 3.3 - 4.4 LOW RISK 4.4 - 7.1 AVERAGE RISK 7.1 - 11.0 MODERATE RISK >11.0 HIGH RISKPerformed By: #### POCGLUC #### [facility] [address] [address] [address] Talia PlascenciaCholesterol [Mass/Vol]120 mg/dLNormal<=200[facility] Comment on above:Performed By: #### POCGLUC #### [facility] [address] [place] [address] Dr. Talia PlascenciaCholesterol in HDL [Mass/Vol]28 mg/dLCritically had17-83KftThe Christ HospitalComment on above:Performed By: #### POCGLUC #### [facility] [address] [address] [address] Talia Juarezesterol in LDL [Mass/Vol]67.6 mg/dLCleveland Clinic Lutheran HospitalComment on above:Performed By: #### POCGLUC #### [facility] [address] [address] [address] Talia Doyle.total/Cholesterol in HDL [Mass ratio]4.3 {ratio} NormalThe Christ HospitalComment on above:Performed By: #### POCGLUC #### [facility] [address] [place] [address] Dr. Talia Santana NORMAL> or = 60 mg/dl - LOW CARDIOVASCULAR RISK <40 mg/dl - HIGH CARDIOVASCULAR RISKCleveland Clinic Lutheran HospitalComment on above:Performed By: #### POCGLUC #### [facility] [address] [place] [address] Dr. Talia Thayer CALC NORMALSEE BELOWNoOhio State Health SystemComment on above:Result Comment: <100 mg/dl OPTIMAL 100 - 129 mg/dl NEAR OR ABOVE OPTIMAL 130 - 159 mg/dl BORDERLINE HIGH 160 - 189 mg/dl HIGH >190 mg/dl VERY HIGH Performed By: #### POCGLUC #### [facility] [address] [place] [address] Dr. Talia PlascenciaTriglyceride [Mass/Vol]122 mg/dLNormal<=150The [facility] Comment on above:Performed By: #### POCGLUC #### [facility] [address] [place] [address] Dr. Talia BhatiaLDL CALC24.4 mg/dLNoOhio State Health SystemComment on above: Performed By: #### POCGLUC #### [facility] [address] [place] [address] Dr. Talia PlascenciaPROIvan 14(COMP METB)on 49-94-2071Dedqhui [Mass/Vol]3.8 g/dLNormal 3.4-5.0The [facility] HospitalComment on above:Performed By: #### POCGLUC #### [facility] [address] [address] [address] Talia PlascenciaAlbumin/Globulin [Mass ratio]1.0 {ratio}NormalThe [facility] HospitalComment on above:Performed By: #### POCGLUC #### [facility] [address] [address] [address] Talia BenitezP [Catalytic activity/Vol]73 U/ABktyil08-427Xki [facility] HospitalComment on above:Performed By: #### POCGLUC #### [facility] [address] [address] [address] Talia BenitezT [Catalytic activity/Vol]22 U/SLdpimv14-61Nis [facility] HospitalComment on above:Performed By: #### POCGLUC #### [facility] [address] [address] [address] Talia Huizaron gap [Moles/Vol]10.7 mmol/LNormalThe [facility] Comment on above:Performed By: #### POCGLUC #### [facility] [address] [address] [address] Talia PlascenciaAST [Catalytic activity/Vol]31 U/LNdpvwz15-53Zvz [facility] on above:Performed By: #### POCGLUC #### [facility] [address] [address] [address] Talia PlascenciaBilirubin [Mass/Vol]0.6 mg/dLNormal0.2-1.0The [facility] Comment on above:Performed By: #### POCGLUC #### [facility] [address] [address] [address] Talia PlascenciaCalcium [Mass/Vol]9.5 mg/dLNormal8.5-10.1The [facility] Comment on above:Performed By: #### POCGLUC #### [facility] [address] [address] [address] Talia PlascenciaChloride [Moles/Vol]102 mmol/AMtpcdn42-912Fpx [facility] Comment on above:Performed By: #### POCGLUC #### [facility] [address] [address] [address] Talia PlascenciaCO2 [Moles/Vol]28.9 mmol/OAtdsgf99.0-32.0The [facility] Comment on above:Performed By: #### POCGLUC #### [facility] [address] [address] [address] Talia PlascenciaCreatinine [Mass/Vol]1.27 mg/dLNormal0.70-1.30The [facility] HospitalComment on above:Performed By: #### POCGLUC #### [facility] [address] [address] [address] Melgar ChangEGFR-AF [place]I>60Normal>=60The [facility] HospitalComment on above:Performed By: #### POCGLUC #### [facility] [address] [address] [address] Talia SchwabGFR-NON AF MGNTIRHD88 mL/min/1.46i6Vjaonetqak low>=60The [facility] HospitalComment on above:Performed By: #### POCGLUC #### [facility] [address] [address] [address] Talia PlascenciaGlobulin (S) [Mass/Vol]3.9 g/dLNormalThe [facility] HospitalComment on above:Performed By: #### POCGLUC #### [facility] [address] [address] [address] Talia PlascenciaGlucose [Mass/Vol]209 mg/dLCritically jhvl35-497Cin [facility] HospitalComment on above:Performed By: #### POCGLUC #### [facility] [address] [address] [address] Talia PlascenciaPotassium [Moles/Vol]4.6 mmol/LNormal3.5-5.1The [facility] Comment on above:Performed By: #### POCGLUC #### [facility] [address] [address] [address] Talia PlascenciaProtein [Mass/Vol]7.7 g/dLNormal6.4-8.2The [facility] Comment on above:Performed By: #### POCGLUC #### [facility] [address] [place], [place] [address] Dr. Talia PlascenciaSodium [Moles/Vol]137 mmol/QYjxqka565-926Vfl [facility] Comment on above:Performed By: #### POCGLUC #### [facility] [address] [place], [place] [address] Dr. Talia PlascenciaUrea nitrogen [Mass/Vol]22.0 mg/dLCritically high7.0-18.0The [facility] HospitalComment on above:Performed By: #### POCGLUC #### [facility] [address] [place], [place] [address] Dr. Talia PlascenciaUrea nitrogen/Creatinine [Mass ratio]17.3 mg/mgNormalThe [facility] HospitalComment on above:Performed By: #### POCGLUC #### [facility] [address] [address] [address] Talia PlascenciaHEMATOLOGYOrdered By: SYSTEM SYSTEM on 89-08-1518Ptrtamyhv/100 WBC (Bld)0.8 %Normal0.0 - 2.0 %[facility] HemeAutoSSBasophils/Leukocytes Auto (Bld) [Pure # fraction]0.1 E9/LNormal0.0 - 0.2 E9/LFTMC HemeAutoSSEosinophils/100 WBC (Bld)4.9 %Normal0.0 - 8.0 %[facility] HemeAutoSSEosinophils/Leukocytes Auto (Bld) [Pure # fraction]0.4 E9/LNormal0.0 - 0.5 E9/LFTMC HemeAutoSSLymphocytes/100 WBC (Bld)15.6 %Ptojkf49.0 - 50.0 %[facility] HemeAutoSSLymphocytes/Leukocytes Auto (Bld) [Pure # fraction]1.4 E9/LNormal1.0 - 4.0 E9/LFTMC HemeAutoSSMonocytes/100 WBC (Bld)7.1 %Normal4.0 - 14.0 %[facility] HemeAutoSSMonocytes/Leukocytes Auto (Bld) [Pure # fraction]0.6 E9/LNormal0.2 - 1.0 E9/LFTMC HemeAutoSSNeutrophils/100 WBC (Bld) 71.6 %Porghq52.0 - 75.0 %[facility] HemeAutoSSNeutrophils/Leukocytes Auto (Bld) [Pure # fraction]6.4 E9/LNormal2.0 - 7.5 E9/LFTMC HemeAutoSSHEMATOLOGYOrdered By: Lexii Kelly on 05-03-5665Gslnrtbrzav distribution width (RBC) [Ratio]16.1 % High10.9 - 14.2 %[facility] HemeAutoSSHematocrit (Bld) [Volume fraction]48.8 %Normal 37.7 - 49.0 %[facility] HemeAutoSSHemoglobin (Bld) [Mass/Vol]15.9 g/zZJhlgqj73.5 - 17.5 gm/dLFTMC HemeAutoSSMCH (RBC) [Entitic mass]26.6 pgLow27.0 - 34.0 pgFTMC HemeAutoSSMCHC (RBC) [Mass/Vol]32.5 g/sCIyrsjs35.4 - 36.0 gm/dLFTMC HemeAutoSS MCV (RBC) [Entitic vol]81.9 wGZxctjv10.0 - 100.0 fLFTMC HemeAutoSSPlatelet mean volume (Bld) [Entitic vol]9.5 fLNormal6.4 - 10.8 fLFTMC HemeAutoSSPlatelets (Bld) [#/Vol]205.0 E9/JEbvdrh137.0 - 500.0 E9/LFTMC HemeAutoSSRBC (Bld) [#/Vol] 6.0 E12/LHigh4.3 - 5.9 E12/LFTMC HemeAutoSSWBC corrected for nucl RBC Auto (Bld) [#/Vol]8.9 E9/LNormal4.0 - 11.0 E9/LFTMC HemeAutoSSXR ABD FLAT UP_PA Rahat 28-15-3978UB ABD FLAT UP_PA CHACUTE ABDOMINAL SERIES HISTORY: Vomiting and diarrhea for [...] Electronically authenticated by: CARLY PRESCOTT Date: 2022-08-04 23:39NormParkview Health Montpelier HospitalACETONE SERUMon [id number]RLPTNxk [facility] HospitalComment on above:Performed By: #### CBCMAN #### [facility] [address] [place] [address] Dr. Talia Cedillo AUTO DIFFon 92-09-1098FOKK #0.1 103/ulNormal0.0-0.1The [facility] HospitalComment on above:Performed By: #### CVDTBH #### [facility] [address] [place] [address] Dr. Talia PlascenciaBasophils/100 WBC (Bld)0.5 %Normal0.2-2.0[facility] Comment on above:Performed By: #### CVDTBH #### [facility] [address] [place] [address] Dr. Talia Oliver #0.1 103/ulNormal0.0-0.7The [facility] HospitalComment on above: Performed By: #### CVDTBH #### [facility] [address] [place] [address] Dr. Talia Schwabosinophils/100 WBC (Bld)1.1 %Normal0.9-7.0[facility] Comment on above:Performed By: #### CVDTBH #### [facility] [address] [address] [address] Talia Schwabrythrocyte distribution width (RBC) [Ratio]15.7 %Critically high 11.0-15.0The [facility] HospitalComment on above:Performed By: #### CVDTBH #### [facility] [address] [place] [address] Dr. Talia PlascenciaHematocrit (Bld) [Volume fraction]50.2 %Gcefab53.0-54.0The [facility] HospitalComment on above:Performed By: #### CVDTBH #### [facility] [address] [place] [address] Dr. Talia PlascenciaHemoglobin (Bld) [Mass/Vol]17.3 g/yQVzvqxj41.0-18.0The [facility] HospitalComment on above:Performed By: #### CVDTBH #### [facility] [address] [place] [address] Dr. Talia Capone #0.03 10e3/ulNormal0.00-0.03The [facility] HospitalComment on above:Performed By: #### CVDTBH #### [facility] [address] [place] [address] Dr. Talia Capone %0.3 %Normal0.0-0.5The [facility] HospitalComment on above: Performed By: #### CVDTBH #### [facility] [address] [place] [address] Dr. Talia MorelH #0.7 103/ulCritically low1.2-3.8The [facility] Comment on above:Performed By: #### CVDTBH #### [facility] [address] [place] [address] Dr. Talia Morelhocytes/100 WBC (Bld)7.0 %Critically low20.5-60.0The [facility] HospitalComment on above:Performed By: #### CVDTBH #### [facility] [address] [place] [address] Dr. Talia DelucaUAL DIFF REQNONormalThe [facility] HospitalComment on above: Performed By: #### CVDTBH #### [facility] [address] [place] [address] Dr. Talia GermanH (RBC) [Entitic mass]26.3 mjGuddpu12.9-34.0The [facility] HospitalComment on above:Performed By: #### CVDTBH #### [facility] [address] [place] [address] Dr. Talia German (RBC) [Mass/Vol]34.5 g/nRHzxezy66.9-35.2The [facility] HospitalComment on above:Performed By: #### CVDTBH #### [facility] [address] [place] [address] Dr. Talia Raymond (RBC) [Entitic vol]76.2 fLCritically low80.0-94.0The [facility] HospitalComment on above:Performed By: #### CVDTBH #### [facility] [address] [place] [address] Dr. Talia Echols #1.0 103/ulCritically high0.3-0.8ThMemorial Health [facility] Comment on above:Performed By: #### CVDTBH #### [facility] [address] [place] [address] Dr. Talia Moranocytes/100 WBC (Bld)9.9 %Normal1.7-12.0[facility] Comment on above:Performed By: #### CVDTBH #### [facility] [address] [place] [address] Dr. Talia Malagon #8.5 103/ulCritically high1.4-6.5ThMemorial Health System [facility] Comment on above:Performed By: #### CVDTBH #### [facility] [address] [place] [address] Dr. Talia Ricardoophils/100 WBC (Bld)81.2 %Critically high43.0-75.0The [facility] HospitalComment on above:Performed By: #### CVDTBH #### [facility] [address] [place] [address] Dr. Talia PlascenciaPlatelet mean volume (Bld) [Entitic vol]10.5 fLNormal9.5-13.5The [facility] HospitalComment on above:Performed By: #### CVDTBH #### [facility] [address] [address] [address] Talia PlascenciaPLT212 103/wsDkoxkg765-633Fbp [facility] HospitalComment on above: Performed By: #### CVDTBH #### [facility] [address] [address] [address] Talia PlascenciaRBC6.59 106/ulCritically high4.70-6.10The [facility] Comment on above:Performed By: #### CVDTBH #### [facility] [address] [place] [address] Dr. Talia PlascenciaWBC10.4 103/ulNormal4.0-11.0The [facility] HospitalComment on above:Performed By: #### CVDTBH #### [facility] [address] [place] [address] Dr. Talia PlascenciaCovid-19 PCR ([facility])on 10-83-7972WTOA-CoV-2 (COVID-19) RNA REKHA+probe Ql (Unsp spec)DetectedCritically abnormalNOT DETECTEDThe [facility] HospitalComment on above:Result Comment: This test is not yet approved or cleared by the [place] FDA. When there are no FDA-approved or cleared tests available, and other criteria are met, FDA can make tests available under an emergency access mechanism called an Emergency Use Authorization (EUA). The EUA for this test is supported by the [place] of Health and Human Service's declaration that circumstances exist to justify the emergency use of in vitro diagnostics for the detection and/or diagnosis of the virusthat causes COVID-19. This EUA will remain in effect for the duration of the COVID-19 declaration ju stifying emergency of IVDs, unless it is terminated or revoked by the FDA (after which the test mayno longer be used).Performed By: #### CVDTBH #### [facility] [address] [place] [address] Dr. Talia PlascenciaINFLUENZA A AND B AGon 61-31-2869YKKZUHMTE A AGNegativeNormal NEGATIVE SEE COMMENTThe [facility] HospitalComment on above:Performed By: #### INFLUAB #### [facility] [address] [place] [address] Dr. Talia Jacobo B AGNegativeNormalNEGATIVE SEE COMMENTThe [facility] HospitalComment on above:Performed By: #### INFLUAB #### [facility] [address] [place] [address] Dr. Talia PlascenciaINTERNAL CONTROLSWithin Normal LimitsNormalWithin Normal Limits The [facility] HospitalComment on above:Performed By: #### INFLUAB #### [facility] [address] [place] [address] Dr. Talia PlascenciaLACTATE/LACTIC ACIDon 28-33-2613Uyirpub [Moles/Vol]2.1 mmol/L Critically high0.4-1.9The [facility] HospitalComment on above:Performed By: #### CBCMAN #### [facility] [address] [place] [address] Dr. Talia PlascenciaLIPASEon 33-63-9833Nqyesr [Catalytic activity/Vol]135.0 U/LNormal 73.0-393.0The [facility] HospitalComment on above:Performed By: #### INFLUAB #### [facility] [address] [place] [address] Dr. Talia PlascenciaPROF 14(COMP METB)on 88-80-7697Jfakidn [Mass/Vol]4.3 g/dLNormal 3.4-5.0The [facility] HospitalComment on above:Performed By: #### INFLUAB #### [facility] [address] [place] [address] Dr. Talia PlascenciaAlbumin/Globulin [Mass ratio]1.0 {ratio}NormalThe [facility] HospitalComment on above:Performed By: #### INFLUAB #### Clinton [facility] [address] [place] [address] Dr. Talia PlascenciaALP [Catalytic activity/Vol]77 U/USkpvdt85-457Itg [facility] HospitalComment on above:Performed By: #### INFLUAB #### [facility] [address] [address] [address] Talia Cody [Catalytic activity/Vol]28 U/ARhyhau39-27Djq [facility]Comm[facility] [place] on above:Performed By: #### INFLUAB #### [facility] [address] [address] [address] Talia Huizaron gap [Moles/Vol]20.3 mmol/LNormalThe [facility] Comment on above:Performed By: #### INFLUAB #### [facility] [address] [address] [address] Talia PlascenciaAST [Catalytic activity/Vol]35 U/OVgtblw55-92Zlx [facility] on above:Performed By: #### INFLUAB #### [facility] [address] [place] [address] Dr. Talia PlascenciaBilirubin [Mass/Vol]1.1 mg/dLCritically high0.2-1.0The [facility] HospitalComment on above:Performed By: #### INFLUAB #### [facility] [address] [place] [address] Dr. Talia PlascenciaCalcium [Mass/Vol]10.1 mg/dLNormal8.5-10.1[facility] Comment on above:Performed By: #### INFLUAB #### [facility] [address] [place] [address] Dr. Talia PlascenciaChloride [Moles/Vol]95 mmol/LCritically znc72-388Aaj [facility] HospitalComment on above:Performed By: #### INFLUAB #### [facility] [address] [place] [address] Dr. Talia PlascenciaCO2 [Moles/Vol]22.5 mmol/XSmlsqt14.0-32.0The [facility] Comment on above:Performed By: #### INFLUAB #### [facility] [address] [place] [address] Dr. Talia PlascenciaCreatinine [Mass/Vol]1.36 mg/dLCritically high0.70-1.30The [facility] HospitalComment on above:Performed By: #### INFLUAB #### [facility] [address] [place] [address] Dr. Talia SchwabGFR-AF KUWAITI>60Normal>=60The [facility] HospitalComment on above:Performed By: #### INFLUAB #### [facility] [address] [address] [address] Talia SchwabGFR-NON AF [id number] mL/min/1.53m4Qmijxolmoz low>=60The [facility] HospitalComment on above:Performed By: #### INFLUAB #### [facility] [address] [place] [address] Dr. Talia PlascenciaGlobulin (S) [Mass/Vol]4.4 g/dLNormalThe [facility] HospitalComment on above:Performed By: #### INFLUAB #### [facility] [address] [place] [address] Dr. Talia PlascenciaGlucose [Mass/Vol]220 mg/dLCritically echr50-704Abb [facility] HospitalComment on above:Performed By: #### INFLUAB #### [facility] [address] [place] [address] Dr. Talia PlascenciaPotassium [Moles/Vol]4.8 mmol/LNormal3.5-5.1The [facility] Comment on above:Performed By: #### INFLUAB #### [facility] [address] [place] [address] Dr. Talia PlascenciaProtein [Mass/Vol]8.7 g/dLCritically high6.4-8.2The [facility] HospitalComment on above:Performed By: #### INFLUAB #### [facility] [address] [place] [address] Dr. Talia PlascenciaSodium [Moles/Vol]133 mmol/LCritically mwb772-448Czm [facility] HospitalComment on above:Performed By: #### INFLUAB #### [facility] [address] [place] [address] Dr. Talia PlascenciaUrea nitrogen [Mass/Vol]28.0 mg/dLCritically high7.0-18.0The [facility] HospitalComment on above:Performed By: #### INFLUAB #### [facility] [address] [place] [address] Dr. Talia Chambers nitrogen/Creatinine [Mass ratio]20.6 mg/mgNormalThMemorial Health System Selby [facility] HospitalComment on above:Performed By: #### INFLUAB #### [facility] [address] [place] [address] Dr. Talia PlascenciaTESTOSTERONE, TOTALon 83-43-7768Nmufrytivgmm [Mass/Vol]830 ng/dL Mrpoge654-711Tpi [facility] HospitalComment on above:Result Comment: Adult male reference interval is based on a population of healthy nonobese males (BMI <30) between 19 and 39 years old. irina Lester.al. JCEM 2017,102;9186-1847. PMID: [id number].Performed By: #### CBC #### [facility] [address] [place] [address] Dr. Talia AngelesC AUTO DIFFon [id number] #0.1 103/ulNormal0.0-0.1The [facility] HospitalComment on above:Performed By: #### POCGLUC #### [facility] [address] [place] [address] Dr. Talia PlascenciaBasophils/100 WBC (Bld)0.7 %Normal0.2-2.0The [facility] Comment on above:Performed By: #### POCGLUC #### [facility] [address] [place] [address] Dr. Talia SchwabO #0.5 103/ulNormal0.0-0.7The [facility] HospitalComment on above: Performed By: #### POCGLUC #### [facility] [address] [place] [address] Dr. Talia Schwabosinophils/100 WBC (Bld)5.8 %Normal0.9-7.0The [facility] Comment on above:Performed By: #### POCGLUC #### [facility] [address] [place] [address] Dr. Talia Schwabrythrocyte distribution width (RBC) [Ratio]15.0 %Sldnvy50.0-15.0 The [facility] HospitalComment on above:Performed By: #### POCGLUC #### [facility] [address] [place] [address] Dr. Talia PlascenciaHematocrit (Bld) [Volume fraction]45.9 %Gfwluu57.0-54.0The [facility] HospitalComment on above:Performed By: #### POCGLUC #### [facility] [address] [place] [address] Dr. Talia PlascenciaHemoglobin (Bld) [Mass/Vol]15.8 g/tRIbwnpg46.0-18.0The [facility] HospitalComment on above:Performed By: #### POCGLUC #### [facility] [address] [place] [address] Dr. Talia Capone #0.03 10e3/ulNormal0.00-0.03The [facility] HospitalComment on above:Performed By: #### POCGLUC #### [facility] [address] [place] [address] Dr. Talia Capone %0.4 %Normal0.0-0.5The [facility] HospitalComment on above: Performed By: #### POCGLUC #### [facility] [address] [place] [address] Dr. Talia MorelH #1.4 103/ulNormal1.2-3.8The [facility] HospitalComment on above:Performed By: #### POCGLUC #### [facility] [address] [place] [address] Dr. Talia Manleymphocytes/100 WBC (Bld)17.3 %Critically low20.5-60.0The [facility] HospitalComment on above:Performed By: #### POCGLUC #### [facility] [address] [place] [address] Dr. Talia PlascenciaMANUAL DIFF REQNONormalThe [facility] HospitalComment on above: Performed By: #### POCGLUC #### [facility] [address] [address] [address] Talia German (RBC) [Entitic mass]27.4 yrHmrzts34.9-34.0The [facility] HospitalComment on above:Performed By: #### POCGLUC #### [facility] [address] [address] [address] Talia German (RBC) [Mass/Vol]34.4 g/fUHhmvav64.9-35.2The [facility] HospitalComment on above:Performed By: #### POCGLUC #### [facility] [address] [address] [address] Talia German (RBC) [Entitic vol]79.5 fLCritically low80.0-94.0The [facility] HospitalComment on above:Performed By: #### POCGLUC #### [facility] [address] [place] [address] Dr. Talia Echols #0.5 103/ulNormal0.3-0.8The [facility] HospitalComment on above:Performed By: #### POCGLUC #### [facility] [address] [address] [address] Talia Moranocytes/100 WBC (Bld)6.6 %Normal1.7-12.0The [facility] Comment on above:Performed By: #### POCGLUC #### [facility] [address] [address] [address] Talia Malagon #5.6 103/ulNormal1.4-6.5The [facility] HospitalComment on above:Performed By: #### POCGLUC #### [facility] [address] [address] [address] Talia aMddenutrophils/100 WBC (Bld)69.2 %Jiooth02.0-75.0The [facility] HospitalComment on above:Performed By: #### POCGLUC #### [facility] [address] [address] [address] Talia Nobles mean volume (Bld) [Entitic vol]10.5 fLNormal9.5-13.5The [facility] HospitalComment on above:Performed By: #### POCGLUC #### [facility] [address] [place] [address] Dr. Talia PlascenciaPLT216 103/fhTfgtpw950-923Cge [facility] HospitalComment on above: Performed By: #### POCGLUC #### [facility] [address] [place] [address] Dr. Talia PlascenciaRBC5.77 106/ulNormal4.70-6.10The [facility] HospitalComment on above:Performed By: #### POCGLUC #### [facility] [address] [place] [address] Dr. Talia PlascenciaWBC8.2 103/ulNormal4.0-11.0The [facility] HospitalComment on above: Performed By: #### POCGLUC #### [facility] [address] [place] [address] Dr. Talia PlascenciaTESTOSTERONE, TOTALon 17-22-1272Hwfpumcvacti [Mass/Vol]323 ng/dL Ufmgff026-237Ayu [facility] HospitalComment on above:Result Comment: Adult male reference interval is based on a population of healthy nonobese males (BMI <30) between 19 and 39 years old. irina Lester.al. JCEM 2017,102;1225-4173. PMID: [id number].Performed By: #### TESTTOT #### [facility] [address] [place] [address] Dr. Talia Cedilol AUTO DIFFon 41-55-2387KDHM #0.1 103/ulNormal0.0-0.1The [facility] HospitalComment on above:Performed By: #### CBCMAN #### [facility] [address] [place] [address] Dr. Talia Beltransophils/100 WBC (Bld)0.9 %Normal0.2-2.0[facility] Comment on above:Performed By: #### CBCMAN #### [facility] [address] [place] [address] Dr. Talia Oliver #0.3 103/ulNormal0.0-0.7The [facility] HospitalComment on above: Performed By: #### LILIAM #### [facility] [address] [place] [address] Dr. Talia Schwabosinophils/100 WBC (Bld)4.0 %Normal0.9-7.0The [facility] Comment on above:Performed By: #### LILIAM #### [facility] [address] [place] [address] Dr. Talia Schwabrythrocyte distribution width (RBC) [Ratio]15.6 %Critically high 11.0-15.0The [facility] HospitalComment on above:Performed By: #### LILIAM #### [facility] [address] [place] [address] Dr. Talia PlascenciaHematocrit (Bld) [Volume fraction]43.9 %Rudhil09.0-54.0The [facility] HospitalComment on above:Performed By: #### LILIAM #### [facility] [address] [place] [address] Dr. Talia PlascenciaHemoglobin (Bld) [Mass/Vol]14.5 g/xKQpepje95.0-18.0The [facility] HospitalComment on above:Performed By: #### LILIAM #### [facility] [address] [place] [address] Dr. Talia Capone #0.02 10e3/ulNormal0.00-0.03The [facility] HospitalComment on above:Performed By: #### LILIAM #### [facility] [address] [place] [address] Dr. Talia Capone %0.3 %Normal0.0-0.5The [facility] HospitalComment on above: Performed By: #### LILIAM #### [facility] [address] [place] [address] Dr. Talia Carbajal #1.6 103/ulNormal1.2-3.8The [facility] HospitalComment on above:Performed By: #### LILIAM #### [facility] [address] [address] [address] Talia Manleymphocytes/100 WBC (Bld)23.5 %Uymtme83.5-60.0The [facility] HospitalComment on above:Performed By: #### LILIAM #### [facility] [address] [address] [address] Talia DelucaUAL DIFF REQNONormalThe [facility] HospitalComment on above: Performed By: #### LILIAM #### [facility] [address] [place] [address] Dr. Talia German (RBC) [Entitic mass]26.1 itVpsdbj75.9-34.0The [facility] HospitalComment on above:Performed By: #### LILIAM #### [facility] [address] [place] [address] Dr. Talia German (RBC) [Mass/Vol]33.0 g/jZToyuds48.9-35.2The [facility] HospitalComment on above:Performed By: #### LILIAM #### [facility] [address] [place] [address] Dr. Talia German (RBC) [Entitic vol]79.0 fLCritically low80.0-94.0The [facility] HospitalComment on above:Performed By: #### LILIAM #### [facility] [address] [place] [address] Dr. Talia Echols #0.6 103/ulNormal0.3-0.8The [facility] HospitalComment on above:Performed By: #### LILIAM #### [facility] [address] [place] [address] Dr. Talia Moranocytes/100 WBC (Bld)8.2 %Normal1.7-12.0The [facility] Comment on above:Performed By: #### LILIAM #### [facility] [address] [place] [address] Dr. Talia Malagon #4.4 103/ulNormal1.4-6.5The [facility] HospitalComment on above:Performed By: #### CBCMAN #### [facility] [address] [address] [address] Talia Maddenutrophils/100 WBC (Bld)63.1 %Uxizyw63.0-75.0The [facility] HospitalComment on above:Performed By: #### CBCMAN #### [facility] [address] [place] [address] Dr. Talia Swartzlet mean volume (Bld) [Entitic vol]11.6 fLNormal9.5-13.5The [facility] HospitalComment on above:Performed By: #### CBCMAN #### [facility] [address] [place] [address] Dr. Talia QuachT247 103/ofFijqes871-230Pfn [facility] HospitalComment on above: Performed By: #### CBCMAN #### [facility] [address] [place] [address] Dr. Talia PlascenciaRBC5.56 106/ulNormal4.70-6.10The [facility] HospitalComment on above:Performed By: #### CBCMAN #### [facility] [address] [place] [address] Dr. Talia PlascenciaWBC6.9 103/ulNormal4.0-11.0The [facility] Daytonment on above: Performed By: #### CBCMAN #### [facility] [address] [place] [address] Dr. Talia Cedillo AUTO DIFFon 64-45-3806HRNU #0.0 103/ulNormal0.0-0.1The [facility] HospitalComment on above:Performed By: #### CBC #### [facility] [address] [place] [address] Dr. Talai PlascenciaBasophils/100 WBC (Bld)0.4 %Normal0.2-2.0The [facility] on above:Performed By: #### CBC #### [facility] [address] [place] [address] Dr. Melgar ChangEBernabe #0.3 103/ulNormal0.0-0.7The [facility] HospitalComment on above: Performed By: #### CBC #### [facility] [address] [place] [address] Dr. Talia Schwabosinophils/100 WBC (Bld)4.4 %Normal0.9-7.0The [facility] Comment on above:Performed By: #### CBC #### [facility] [address] [place] [address] Dr. Talia Schwabrythrocyte distribution width (RBC) [Ratio]15.1 %Critically high 11.0-15.0The [facility] HospitalComment on above:Performed By: #### CBC #### [facility] [address] [place] [address] Dr. Talia PlascenciaHematocrit (Bld) [Volume fraction]42.0 %Pjkhoi49.0-54.0The [facility] HospitalComment on above:Performed By: #### CBC #### [facility] [address] [place] [address] Dr. Talia PlascenciaHemoglobin (Bld) [Mass/Vol]14.2 g/rSKtdknl35.0-18.0The [facility] HospitalComment on above:Performed By: #### CBC #### [facility] [address] [place] [address] Dr. Talia Capone #0.02 10e3/ulNormal0.00-0.03The [facility] HospitalComment on above:Performed By: #### CBC #### [facility] [address] [place] [address] Dr. Talia Capone %0.3 %Normal0.0-0.5The [facility] HospitalComment on above: Performed By: #### CBC #### [facility] [address] [place] [address] Dr. Talia Carbajal #1.1 103/ulCritically low1.2-3.8The [facility] Comment on above:Performed By: #### CBC #### [facility] [address] [place] [address] Dr. Yilan ChangLymphocytes/100 WBC (Bld)14.5 %Critically low20.5-60.0The [facility] HospitalComment on above:Performed By: #### CBC #### [facility] [address] [place] [address] Dr. Talia DelucaUAL DIFF REQNONormalThe [facility] HospitalComment on above: Performed By: #### CBC #### [facility] [address] [place] [address] Dr. Talia German (RBC) [Entitic mass]26.4 voLvpyeh40.9-34.0The [facility] HospitalComment on above:Performed By: #### CBC #### [facility] [address] [place] [address] Dr. Talia German (RBC) [Mass/Vol]33.8 g/xRZitcfq01.9-35.2The [facility] HospitalComment on above:Performed By: #### CBC #### [facility] [address] [place] [address] Dr. Talia German (RBC) [Entitic vol]78.2 fLCritically low80.0-94.0The [facility] HospitalComment on above:Performed By: #### CBC #### [facility] [address] [place] [address] Dr. Talia Echols #0.5 103/ulNormal0.3-0.8The [facility] HospitalComment on above:Performed By: #### CBC #### [facility] [address] [place] [address] Dr. Talia Moranocytes/100 WBC (Bld)6.8 %Normal1.7-12.0The [facility] Comment on above:Performed By: #### CBC #### [facility] [address] [place] [address] Dr. Talia Malagon #5.6 103/ulNormal1.4-6.5The [facility] HospitalComment on above:Performed By: #### CBC #### [facility] [address] [place] [address] Dr. Talia Maddenutrophils/100 WBC (Bld)73.6 %Oalnbw00.0-75.0The [facility] HospitalComment on above:Performed By: #### CBC #### [facility] [address] [place] [address] Dr. Talia Nobles mean volume (Bld) [Entitic vol]10.7 fLNormal9.5-13.5The [facility] HospitalComment on above:Performed By: #### CBC #### [facility] [address] [place] [address] Dr. Talia PlascenciaPLT182 103/zsXaskuz023-527Qeo [facility] HospitalComment on above: Performed By: #### CBC #### [facility] [address] [place] [address] Dr. Talia PlascenciaRBC5.37 106/ulNormal4.70-6.10The [facility] HospitalComment on above:Performed By: #### CBC #### [facility] [address] [place] [address] Dr. Talia PlascenciaWBC7.7 103/ulNormal4.0-11.0The [facility] HospitalComment on above: Performed By: #### CBC #### [facility] [address] [place] [address] Dr. Talia Win 33-22-1364HVL06.2 mg/dLCritically high<=1.0The [facility] HospitalComment on above:Performed By: #### CBCMAN #### [facility] [address] [place] [address] Dr. Talia PlascenciaPOINT OF CARE GLUCOSEon 15-67-8535Ohonmhv [Mass/Vol]135 mg/dL Critically wsmc05-573Uky [facility] HospitalComment on above:Performed By: #### POCGLUC #### [facility] [address] [place] [address] Dr. Talia PlascenciaPROIvan 14(COMP METB)on 35-87-1286Flzurct [Mass/Vol]3.2 g/dL Critically low3.4-5.0The [facility] HospitalComment on above:Performed By: #### INFLUAB #### [facility] [address] [address] [address] Talia PlascenciaAlbumin/Globulin [Mass ratio]0.8 {ratio}NormalThe [facility] HospitalComment on above:Performed By: #### INFLUAB #### [facility] [address] [address] [address] Talia BenitezP [Catalytic activity/Vol]61 U/ZQgnegs94-066Uvf [facility] HospitalComment on above:Performed By: #### INFLUAB #### [facility] [address] [place] [address] Dr. Talia BenitezT [Catalytic activity/Vol]25 U/OHmkvsw71-65Fev [facility] HospitalComment on above:Performed By: #### INFLUAB #### [facility] [address] [place] [address] Dr. Talia Huizaron gap [Moles/Vol]15.6 mmol/LNormalThe [facility] Comment on above:Performed By: #### INFLUAB #### [facility] [address] [place] [address] Dr. Talia PlascenciaAST [Catalytic activity/Vol]31 U/ZUkubeg31-26Hiy [facility] on above:Performed By: #### INFLUAB #### [facility] [address] [place] [address] Dr. Talia PlascenciaBilirubin [Mass/Vol]0.6 mg/dLNormal0.2-1.0The [facility] Comment on above:Performed By: #### INFLUAB #### [facility] [address] [place] [address] Dr. Talia PlascenciaCalcium [Mass/Vol]8.7 mg/dLNormal8.5-10.1The [facility] Comment on above:Performed By: #### INFLUAB #### [facility] [address] [place] [address] Dr. Talia PlascenciaChloride [Moles/Vol]99 mmol/RJaadqf59-289Mhe [facility] Comment on above:Performed By: #### INFLUAB #### [facility] [address] [address] [address] Talia PlascenciaCO2 [Moles/Vol]22.6 mmol/TTyscke96.0-32.0The [facility] Comment on above:Performed By: #### INFLUAB #### [facility] [address] [address] [address] Talia PlascenciaCreatinine [Mass/Vol]1.06 mg/dLNormal0.70-1.30The [facility] HospitalComment on above:Performed By: #### INFLUAB #### [facility] [address] [address] [address] Melgar ChangEGFR-AF KUWAITI>60Normal>=60The [facility] HospitalComment on above:Performed By: #### INFLUAB #### [facility] [address] [place] [address] Dr. Talia SchwabGFR-NON AF [place]I>60Normal>=60The [facility] HospitalComment on above:Performed By: #### INFLUAB #### [facility] [address] [address] [address] Talia PlascenciaGlobulin (S) [Mass/Vol]3.8 g/dLNormalThe [facility] HospitalComment on above:Performed By: #### INFLUAB #### [facility] [address] [place] [address] Dr. Talia PlascenciaGlucose [Mass/Vol]136 mg/dLCritically xtef64-171Reu [facility] HospitalComment on above:Performed By: #### INFLUAB #### [facility] [address] [address] [address] Talia PlascenciaPotassium [Moles/Vol]4.2 mmol/LNormal3.5-5.1The [facility] Comment on above:Performed By: #### INFLUAB #### [facility] [address] [address] [address] Talia PlasecnciaProtein [Mass/Vol]7.0 g/dLNormal6.4-8.2The [facility] Comment on above:Performed By: #### INFLUAB #### [facility] [address] [address] [address] Tlaia PlascenciaSodium [Moles/Vol]133 mmol/LCritically rwa823-819Kpo [facility] HospitalComment on above:Performed By: #### INFLUAB #### [facility] [address] [place] [address] Dr. Talia Chambers nitrogen [Mass/Vol]15.0 mg/dLNormal7.0-18.0The [facility] HospitalComment on above:Performed By: #### INFLUAB #### [facility] [address] [place] [address] Dr. Talia PlascenciaUrea nitrogen/Creatinine [Mass ratio]14.2 mg/mgNormalThe [facility] HospitalComment on above:Performed By: #### INFLUAB #### [facility] [address] [place] [address] Dr. Talia Marinelli. DIFF PCRon 2C. DIFFICILE PCRNegativeNormalNEGATIVEThe [facility] HospitalComment on above:Performed By: #### POCGLUC #### [facility] [address] [place] [address] Dr. Talia Cedillo AUTO DIFFon [id number] #0.0 103/ulNormal0.0-0.1The [facility] HospitalComment on above:Performed By: #### POCGLUC #### [facility] [address] [place] [address] Dr. Talia PlascenciaBasophils/100 WBC (Bld)0.3 %Normal0.2-2.0[facility] Comment on above:Performed By: #### POCGLUC #### [facility] [address] [place] [address] Dr. Talia Oliver #0.2 103/ulNormal0.0-0.7The [facility] HospitalComment on above: Performed By: #### POCGLUC #### [facility] [address] [place] [address] Dr. Talia Schwabosinophils/100 WBC (Bld)2.9 %Normal0.9-7.0[facility] Comment on above:Performed By: #### POCGLUC #### [facility] [address] [place] [address] Dr. Talia Schwabrythrocyte distribution width (RBC) [Ratio]14.8 %Ndnpfa69.0-15.0 The [facility] HospitalComment on above:Performed By: #### POCGLUC #### [facility] [address] [place] [address] Dr. Talia PlascenciaHematocrit (Bld) [Volume fraction]40.0 %Critically low42.0-54.0 The [facility] HospitalComment on above:Performed By: #### POCGLUC #### [facility] [address] [place] [address] Dr. Talia PlascenciaHemoglobin (Bld) [Mass/Vol]13.5 g/dLCritically low14.0-18.0The [facility] HospitalComment on above:Performed By: #### POCGLUC #### [facility] [address] [place] [address] Dr. Talia Capone #0.02 10e3/ulNormal0.00-0.03The [facility] HospitalComment on above:Performed By: #### POCGLUC #### [facility] [address] [place] [address] Dr. Talia Capone %0.3 %Normal0.0-0.5ThMemorial Health System Selby General HospitalComment on above: Performed By: #### POCGLUC #### [facility] [address] [place] [address] Dr. Talia MorelH #0.8 103/ulCritically low1.2-3.8The [facility] Comment on above:Performed By: #### POCGLUC #### [facility] [address] [place] [address] Dr. Talia Manleymphocytes/100 WBC (Bld)11.5 %Critically low20.5-60.0The [facility] HospitalComment on above:Performed By: #### POCGLUC #### [facility] [address] [place] [address] Dr. Talia Pascal DIFF REQNONormalThe [facility] HospitalComment on above: Performed By: #### POCGLUC #### [facility] [address] [place] [address] Dr. Talia German (RBC) [Entitic mass]26.3 iyYkoziy41.9-34.0The [facility] HospitalComment on above:Performed By: #### POCGLUC #### [facility] [address] [place] [address] Dr. Talia German (RBC) [Mass/Vol]33.8 g/xLTyqraa26.9-35.2The [facility] HospitalComment on above:Performed By: #### POCGLUC #### [facility] [address] [place] [address] Dr. Talia German (RBC) [Entitic vol]78.0 fLCritically low80.0-94.0The [facility] HospitalComment on above:Performed By: #### POCGLUC #### [facility] [address] [place] [address] Dr. Talia Echols #0.6 103/ulNormal0.3-0.8The [facility] HospitalComment on above:Performed By: #### POCGLUC #### [facility] [address] [place] [address] Dr. Talia Moranocytes/100 WBC (Bld)9.1 %Normal1.7-12.0The [facility] Comment on above:Performed By: #### POCGLUC #### [facility] [address] [place] [address] Dr. Talia Malagon #5.2 103/ulNormal1.4-6.5The [facility] HospitalComment on above:Performed By: #### POCGLUC #### [facility] [address] [place] [address] Dr. Talia Maddenutrophils/100 WBC (Bld)75.9 %Critically high43.0-75.0The [facility] HospitalComment on above:Performed By: #### POCGLUC #### [facility] [address] [address] [address] Talia Nobles mean volume (Bld) [Entitic vol]10.7 fLNormal9.5-13.5The [facility] on above:Performed By: #### POCGLUC #### [facility] [address] [place] [address] Dr. Talia QuachT149 103/ulCritically sbu295-700Joy [facility]Comm[facility] on above:Performed By: #### POCGLUC #### [facility] [address] [place] [address] Dr. Talia PlascenciaRBC5.13 106/ulNormal4.70-6.10The [facility]Commcl[facility] on above:Performed By: #### POCGLUC #### [facility] [address] [place] [address] Dr. Talia PlascenciaWBC6.8 103/ulNormal4.0-11.0The [facility] on above: Performed By: #### POCGLUC #### [facility] [address] [place] [address] Dr. Talia Win 47-75-1444UDS74.2 mg/dLCritically high<=1.0The [facility] on above:Performed By: #### INFLUAB #### [facility] [address] [place] [address] Dr. Talia Cordero URINE PROFILEon 23-08-9981Rduidgmhm Ql (U)NegativeNormal NEGATIVEThe [facility] HospitalCommclaren [facility] on above:Performed By: #### JACKLYN LOGANR #### [facility] [address] [place] [address] Dr. Talia Abraham (U)CLEARNormalCLEARThe [facility] HospitalCommclaren [place] on above: Performed By: #### DESMOND ERUR #### [facility] [address] [place] [address] Dr. Talia Go (U)YELLOWNormalYELLOWThe [facility] HospitalComment on above: Performed By: #### JACKLYN LOGANR #### [facility] [address] [address] [address] Talia Rosales micrscopic examination will be performed if indicated. NormalThe [facility] HospitalComment on above:Performed By: #### DESMOND ERUR #### [facility] [address] [address] [address] Talia PlascenciaGlucose Ql (U)>1000AbnormalNEGATIVEThe [facility] HospitalComment on above:Performed By: #### DESMOND ERUR #### [facility] [address] [address] [address] Talia PlascenciaHemoglobin Ql (U)TRACE-INTACTAbnormalNEGATIVEThe [facility] HospitalComment on above:Performed By: #### DESMOND ERUR #### [facility] [address] [place] [address] Dr. Talia PlascenciaKetones Ql (U)TRACEAbnormalNEGATIVEThe [facility] HospitalComment on above:Performed By: #### DESMOND ERUR #### [facility] [address] [place] [address] Dr. Talia PlascenciaLEUKOCYTESNegativeNormalNEGATIVEThe [facility] HospitalComment on above:Performed By: #### DESMOND ERUR #### [facility] [address] [place] [address] Dr. Talia PlascenciaNitrite Ql (U)NegativeNormalNEGATIVEThe [facility] HospitalComment on above:Performed By: #### DESMOND ERUR #### [facility] [address] [place] [address] Dr. Talia PlascenciapH (U)6.0 [pH]Normal5-9The [facility] HospitalComment on above: Performed By: #### DESMOND ERUR #### [facility] [address] [place] [address] Dr. Talia PlascenciaSPEC GRAVITY1.012Vvggka7.005-<=1.025The [facility] HospitalComment on above:Performed By: #### DESMOND ERUR #### [facility] [address] [address] [address] Talia Emmanuel PROTEINNegativeNormalNEGATIVE/ TRACEThe [facility] Comment on above:Performed By: #### CRESCENCIO LOGAN #### [facility] [address] [place] [address] Dr. Talia Jefferson MICRO INDINDICATEDNormalThe [facility] HospitalComment on above: Performed By: #### JACKLYN LOGANR #### [facility] [address] [address] [address] Talia Kelleybilinogen Qn (U)1.0 {Suellen'U}/dLNormal0.2 - 1.0The [facility] HospitalComment on above:Performed By: #### JACKLYN LOGANR #### [facility] [address] [place] [address] Dr. Talia PlascenciaMARK OF [facility] GLUCOSEon 04-13-0655Ccqkgso [Mass/Vol]148 mg/dL Critically xtbh81-562Ryd [facility] HospitalComment on above:Performed By: #### INFLUAB #### [facility] [address] [place] [address] Dr. Talia PlascenciaGlucose [Mass/Vol]199 mg/dLCritically rleo66-616WuaThe Christ HospitalComment on above:Performed By: #### CBC #### [facility] [address] [place] [address] Dr. Talia PlascenciaGlucose [Mass/Vol]176 mg/dLCritically obgc39-069Sdv [facility] HospitalComment on above:Performed By: #### INFLUAB #### [facility] [address] [place] [address] Dr. Talia PlascenciaPROF 14(COMP METB)on 63-93-2015Abqzwzh [Mass/Vol]2.9 g/dL Critically low3.4-5.0The [facility] HospitalComment on above:Performed By: #### INFLUAB #### [facility] [address] [place] [address] Dr. Talia PlascenciaAlbumin/Globulin [Mass ratio]0.8 {ratio}NormalThe [facility] HospitalComment on above:Performed By: #### INFLUAB #### [facility] [address] [address] [address] Talia Myers [Catalytic activity/Vol]58 U/HXlsvee28-593Zbb [facility] HospitalComment on above:Performed By: #### INFLUAB #### [facility] [address] [address] [address] Talia Cody [Catalytic activity/Vol]20 U/NCamnnk64-48Efl [facility] HospitalComment on above:Performed By: #### INFLUAB #### [facility] [address] [address] [address] Talia Pérez gap [Moles/Vol]12.7 mmol/LNormalThe [facility] Comment on above:Performed By: #### INFLUAB #### [facility] [address] [address] [address] Talia PlascenciaAST [Catalytic activity/Vol]25 U/MWzrtnw68-47Fan [facility] HospitalComment on above:Performed By: #### INFLUAB #### [facility] [address] [address] [address] Talia PlascenciaBilirubin [Mass/Vol]0.7 mg/dLNormal0.2-1.0The [facility] Comment on above:Performed By: #### INFLUAB #### [facility] [address] [address] [address] Talia PlascenciaCalcium [Mass/Vol]8.1 mg/dLCritically low8.5-10.1The [facility] HospitalComment on above:Performed By: #### INFLUAB #### [facility] [address] [address] [address] Talia PlascenciaChloride [Moles/Vol]101 mmol/GQucugu24-439Drx [facility] Comment on above:Performed By: #### INFLUAB #### [facility] [address] [address] [address] Talia PlascenciaCO2 [Moles/Vol]22.3 mmol/SKadxco04.0-32.0The [facility] Comment on above:Performed By: #### INFLUAB #### [facility] [address] [address] [address] Talia PlascenciaCreatinine [Mass/Vol]1.13 mg/dLNormal0.70-1.30The [facility] HospitalComment on above:Performed By: #### INFLUAB #### [facility] [address] [address] [address] Talia SchwabGFR-AF KUWAITI>60Normal>=60The [facility] HospitalComment on above:Performed By: #### INFLUAB #### [facility] [address] [address] [address] Talia SchwabGFR-NON AF [place]I>60Normal>=60The [facility] HospitalComment on above:Performed By: #### INFLUAB #### [facility] [address] [place] [address] Dr. Talia PlascenciaGlobulin (S) [Mass/Vol]3.6 g/dLNormalThe [facility] HospitalComment on above:Performed By: #### INFLUAB #### [facility] [address] [place] [address] Dr. Talia PlascenciaGlucose [Mass/Vol]148 mg/dLCritically cbys87-250Xwa [facility] Daytonment on above:Performed By: #### INFLUAB #### [facility] [address] [place] [address] Dr. Talia PlascenciaPotassium [Moles/Vol]4.0 mmol/LNormal3.5-5.1The [facility] Comment on above:Performed By: #### INFLUAB #### [facility] [address] [place] [address] Dr. Talia PlascenciaProtein [Mass/Vol]6.5 g/dLNormal6.4-8.2The [facility] Comment on above:Performed By: #### INFLUAB #### [facility] [address] [place] [address] Dr. Talia PlascenciaSodium [Moles/Vol]132 mmol/LCritically lda541-299Pvf [facility] HospitalComment on above:Performed By: #### INFLUAB #### [facility] [address] [address] [address] Talia Chambers nitrogen [Mass/Vol]19.0 mg/dLCritically high7.0-18.0[facility] on above:Performed By: #### INFLUAB #### [facility] [address] [address] [address] Talia Chambers nitrogen/Creatinine [Mass ratio]16.8 mg/mgNoACMC Healthcare System Glenbe[facility] on above:Performed By: #### INFLUAB #### [facility] [address] [address] [address] Talia Hearn MICROSCOPIC ONLYon 97-76-0176QMYGQOWNAMZR SEENNormalNONE [facility]ENUC [facility] on above:Performed By: #### CVDTBH #### [facility] [address] [place] [address] Dr. Talia Abel identified Cx Nom (U)NOT INDICATEDCommunity [facility] on above:Performed By: #### CVDTBH #### [facility] [address] [address] [address] Talia Rodarte SEENNormalNONE [facility]EN[facility] on above:Performed By: #### CVDTBH #### [facility] [address] [address] [address] Talia De La Torre LM Nom (Urine sed)SEENAbnormalNONE [facility]ENUC [facility] on above:Performed By: #### CVDTBH #### [facility] [address] [address] [address] Melgar ChangEpithelial cells LM Ql (Urine sed)NONE SEENNormalNONE SEEN /RARE [facility] on above:Performed By: #### CVDTBH #### [facility] [address] [address] [address] Talia Tay SEENNokindred hospital - [place]NONE SEENUC [facility] on above:Performed By: #### CVDTBH #### [facility] [address] [address] [address] Talia PlascenciaRBCNONE SEENAbnormal0-2The [facility] HospitalComment on above: Performed By: #### CVDTBH #### [facility] [address] [place] [address] Dr. Talia Linn ACID CRYSTALSFEWCleveland Clinic Lutheran HospitalComment on above: Performed By: #### CVDTBH #### [facility] [address] [place] [address] Dr. Talia PlascenciaWBCNONE SEENNoalNONE SEENThe Christ HospitalComment on above: Performed By: #### CVDTBH #### [facility] [address] [place] [address] Dr. Talia Cedillo W MANUAL DIFFon 40-23-7238AURVGSBN LYMPH #NormalThe Christ HospitalComment on above:Performed By: #### CVDTBH #### [facility] [address] [place] [address] Dr. Talia PickardYPICAL LYMPH %NormalThe Christ HospitalComment on above: Performed By: #### CVDTBH #### [facility] [address] [place] [address] Dr. Talia John #0.2 103/ulNormal0.0-0.3The [facility]Commcl[facility] on above:Performed By: #### CVDTBH #### [facility] [address] [place] [address] Dr. Talia John %2 %Normal0-5The [facility] HospitalComment on above:Performed By: #### CVDTBH #### [facility] [address] [place] [address] Dr. aTlia Wesley #0.00 103/ulNormal0.00-0.10The [facility]Commcl[facility] on above:Performed By: #### CVDTBH #### [facility] [address] [place] [address] Dr. Talia Wesley %0.0 %Critically low0.2-2.0The [facility] HospitalComment on above:Performed By: #### CVDTBH #### [facility] [address] [address] [address] Talia Hough #NormalThe [facility] HospitalComment on above:Performed By: #### CVDTBH #### [facility] [address] [address] [address] Talia Hough %NormalThe [facility] HospitalComment on above:Performed By: #### CVDTBH #### [facility] [address] [place] [address] Dr. Talia PlascenciaCORRECTED WBCNormal4.0-11.0The [facility] HospitalComment on above: Performed By: #### CVDTBH #### [facility] [address] [place] [address] Dr. Talia Bunch #0.00 103/ulNormal0.00-0.70The [facility] HospitalComment on above:Performed By: #### CVDTBH #### [facility] [address] [place] [address] Dr. Talia Bunch%0.0 %Critically low0.9-7.0The [facility] HospitalComment on above:Performed By: #### CVDTBH #### [facility] [address] [place] [address] Dr. Talia PlascenciaHCT40.0 %Critically low42.0-54.0The [facility] HospitalComment on above:Performed By: #### CVDTBH #### [facility] [address] [place] [address] Dr. Talia PlascenciaHGB13.6 g/dlCritically low14.0-18.0The [facility] HospitalComment on above:Performed By: #### CVDTBH #### [facility] [address] [place] [address] Dr. Talia Chaparro #0.61 103/ulCritically low1.20-3.80The [facility] Comment on above:Performed By: #### CVDTBH #### [facility] [address] [place] [address] Dr. Talia Chaparro%6.0 %Critically low20.5-60.0The [facility] HospitalComment on above:Performed By: #### CVDTBH #### [facility] [address] [place] [address] Dr. Talia GermanH26.5 rzNqkbcu34.9-34.0The [facility] HospitalComment on above: Performed By: #### CVDTBH #### [facility] [address] [place] [address] Dr. Talia GermanHC34.0 g/nnXxfkgw20.9-35.2The [facility] HospitalComment on above:Performed By: #### CVDTBH #### [facility] [address] [place] [address] Dr. Talia GermanV78.0 fLCritically low80.0-94.0The [facility] HospitalComment on above:Performed By: #### CVDTBH #### [facility] [address] [place] [address] Dr. Talia TaAMYELOCYTE #NormalThe [facility] HospitalComment on above: Performed By: #### CVDTBH #### [facility] [address] [place] [address] Dr. Talia TaAMYELOCYTE %NormalThe [facility] HospitalComment on above: Performed By: #### CVDTBH #### [facility] [address] [place] [address] Dr. Talia Pascual#0.71 103/ulNormal0.30-0.80The [facility] HospitalComment on above:Performed By: #### CVDTBH #### [facility] [address] [place] [address] Dr. Talia Pascual%7.0 %Normal1.7-12.0The [facility] HospitalComment on above: Performed By: #### CVDTBH #### [facility] [address] [place] [address] Dr. Talia JonV10.2 fLNormal9.5-13.5The [facility] HospitalComment on above: Performed By: #### CVDTBH #### [facility] [address] [address] [address] Talia CrossOCYTE #NormalThe [facility] HospitalComment on above:Performed By: #### CVDTBH #### [facility] [address] [address] [address] Talia CrossOCYTE %NormalThe [facility] HospitalComment on above:Performed By: #### CVDTBH #### [facility] [address] [place] [address] Dr. Talia MarinNormalThMemorial Health System Selby General HospitalComment on above:Performed By: #### CVDTBH #### [facility] [address] [address] [address] Talia QuachT141 103/ulCritically klq579-974Meh [facility] HospitalComment on above:Performed By: #### CVDTBH #### [facility] [address] [place] [address] Dr. Talia PortilloC5.13 106/ulNormal4.70-6.10The [facility] HospitalComment on above:Performed By: #### CVDTBH #### [facility] [address] [place] [address] Dr. Talia PlascenciaRDW14.7 %Qtkmdf17.0-15.0The [facility] HospitalComment on above: Performed By: #### CVDTBH #### [facility] [address] [place] [address] Dr. Talia Alejandro #8.67 103/ulCritically high1.40-6.50The [facility] on above:Performed By: #### CVDTBH #### [facility] [address] [place] [address] Dr. Talia Alejandro %85.0 %Critically high43.0-75.0The [facility] HospitalComment on above:Performed By: #### CVDTBH #### [facility] [address] [place] [address] Dr. Talia OlveraBC10.2 103/ulNormal4.0-11.0The [facility] HospitalComment on above:Performed By: #### CVDTBH #### [facility] [address] [place] [address] Dr. Talia PlascenciaCRPon 61-39-5545ZDH [Mass/Vol]mg/LCritically high<=1.0The [facility] HospitalComment on above:Performed By: #### CVDTBH #### [facility] [address] [place] [address] Dr. Talia PlascenciaPOINT OF CARE GLUCOSEon 15-27-7499Fgavnxx [Mass/Vol]144 mg/dL Critically zren00-082Vwa [facility] HospitalComment on above:Performed By: #### CBCMAN #### [facility] [address] [place] [address] Dr. Talia PlascenciaGlucose [Mass/Vol]123 mg/dLCritically nkad79-246Nua [facility] HospitalComment on above:Performed By: #### INFLUAB #### [facility] [address] [place] [address] Dr. Talia PlascenciaGlucose [Mass/Vol]222 mg/dLCritically apxk35-288Ics [facility] HospitalComment on above:Performed By: #### POCGLUC #### [facility] [address] [place] [address] Dr. Talia PlascenciaGlucose [Mass/Vol]174 mg/dLCritically vkjx64-418Pnl [facility] HospitalComment on above:Performed By: #### CBC #### [facility] [address] [place] [address] Dr. Talia PlascenciaPROF 14(COMP METB)on 19-96-7244Yfebjft [Mass/Vol]2.9 g/dL Critically low3.4-5.0The [facility] HospitalComment on above:Performed By: #### CBCMAN #### [facility] [address] [place] [address] Dr. Talia PlascenciaAlbumin/Globulin [Mass ratio]0.9 {ratio}NormalThe [facility] HospitalComment on above:Performed By: #### CBCMAN #### [facility] [address] [address] [address] Talia Myers [Catalytic activity/Vol]55 U/RKycdpo54-130Hpu [facility] HospitalComment on above:Performed By: #### LILIAM #### [facility] [address] [address] [address] Talia BenitezT [Catalytic activity/Vol]19 U/LUvrlry56-73Lif [facility] HospitalComment on above:Performed By: #### LILIAM #### [facility] [address] [address] [address] Talia Pérez gap [Moles/Vol]16.2 mmol/LNormalThe [facility] Comment on above:Performed By: #### LILIAM #### [facility] [address] [place] [address] Dr. Talia PlascenciaAST [Catalytic activity/Vol]32 U/HXxctch19-86Dsl [facility] HospitalComment on above:Performed By: #### LILIAM #### [facility] [address] [address] [address] Talia PlascenciaBilirubin [Mass/Vol]1.3 mg/dLCritically high0.2-1.0The [facility] HospitalComment on above:Performed By: #### LILIAM #### [facility] [address] [place] [address] Dr. Talia PlascenciaCalcium [Mass/Vol]7.8 mg/dLCritically low8.5-10.1The [facility] HospitalComment on above:Performed By: #### LILIAM #### [facility] [address] [address] [address] Talia PlascenciaChloride [Moles/Vol]99 mmol/NRgonjy51-910Dsq [facility] Comment on above:Performed By: #### LILIAM #### [facility] [address] [address] [address] Talia PlascenciaCO2 [Moles/Vol]20.2 mmol/LCritically low21.0-32.0The [facility] HospitalComment on above:Performed By: #### LILIAM #### [facility] [address] [address] [address] Talia PlascenciaCreatinine [Mass/Vol]1.34 mg/dLCritically high0.70-1.30The [facility] HospitalComment on above:Performed By: #### CBCANALI #### [facility] [facility] [address] [address] [address] Melgar ChangEGFR-AF KUWAITI>60Normal>=60The [facility] HospitalComment on above:Performed By: #### CBCANALI #### [facility] [address] [address] [address] Talia SchwabGFR-NON AF PLYTVBQU56 mL/min/1.93o4Fcvwkgtzig low>=60The [facility] HospitalComment on above:Performed By: #### CBCANALI #### [facility] [address] [address] [address] Talia PlascenciaGlobulin (S) [Mass/Vol]3.4 g/dLNormalThe [facility] HospitalComment on above:Performed By: #### CBCANALI #### [facility] [address] [address] [address] Talia PlascenciaGlucose [Mass/Vol]179 mg/dLCritically umzz10-904Kns [facility] HospitalComment on above:Performed By: #### CBCANALI #### [facility] [address] [address] [address] Talia PlascenciaPotassium [Moles/Vol]4.4 mmol/LNormal3.5-5.1The [facility] Comment on above:Performed By: #### CBCANALI #### [facility] [address] [address] [address] Talia PlascenciaProtein [Mass/Vol]6.3 g/dLCritically low6.4-8.2The [facility] HospitalComment on above:Performed By: #### CBCANALI #### [facility] [address] [address] [address] Talia PlascenciaSodium [Moles/Vol]131 mmol/LCritically qba815-101Uiz [facility] HospitalComment on above:Performed By: #### CBCANALI #### [facility] [address] [address] [address] Talia Chambers nitrogen [Mass/Vol]25.0 mg/dLCritically high7.0-18.0The [facility] on above:Performed By: #### LILIAM #### [facility] [address] [address] [address] Talia Chambers nitrogen/Creatinine [Mass ratio]18.7 mg/mgNormalThe [facility] HospitalComment on above:Performed By: #### LILIAM #### [facility] [address] [place] [address] Dr. Talia Ny 88-26-7219Eegwjmhferh peptide B (Bld) [Mass/Vol]346.0 pg/mL Normal<=900.0The [facility]Comm[facility] [place] on above:Performed By: #### LILIAM #### [facility] [address] [place] [address] Dr. Talia Cedillo W MANUAL DIFFon 91-07-6813IZMGPGRN LYMPH #NormalThe [facility]Commcl[facility] [place] on above:Performed By: #### LILIAM #### [facility] [address] [place] [address] Dr. Talia PickardYPICAL LYMPH %NormalThe [facility]Comm[facility] on above: Performed By: #### LILIAM #### [facility] [address] [place] [address] Dr. Talia John #Normal0.0-0.3The [facility] HospitalComment on above: Performed By: #### LILIAM #### [facility] [address] [place] [address] Dr. Talia John %Normal0-5The [facility] HospitalComment on above:Performed By: #### LILIAM #### [facility] [address] [place] [address] Dr. Talia Wesley #0.00 103/ulNormal0.00-0.10The [facility] on above:Performed By: #### LILIAM #### [facility] [address] [place] [address] Dr. Talia Wesley %0.0 %Critically low0.2-2.0The [facility] HospitalComment on above:Performed By: #### LILIAM #### [facility] [address] [place] [address] Dr. Talia Hough #NormalThe [facility] HospitalComment on above:Performed By: #### LILIAM #### [facility] [address] [place] [address] Dr. Talia PlascenciaBLAST %NormalThe [facility] HospitalComment on above:Performed By: #### LILIAM #### [facility] [address] [place] [address] Dr. Talia PlascenciaCORRECTED WBCNormal4.0-11.0The [facility] HospitalComment on above: Performed By: #### LILIAM #### [facility] [address] [place] [address] Dr. Talia Bunch #0.00 103/ulNormal0.00-0.70The [facility] HospitalComment on above:Performed By: #### LILIAM #### [facility] [address] [place] [address] Dr. Talia Bunch%0.0 %Critically low0.9-7.0The [facility] HospitalComment on above:Performed By: #### LILIAM #### [facility] [address] [place] [address] Dr. Talia PlascenciaHCT45.5 %Rnfbkk49.0-54.0The [facility] HospitalComment on above: Performed By: #### LILIAM #### [facility] [address] [place] [address] Dr. Talia PlascenciaHGB15.5 g/noNbnyne61.0-18.0The [facility] HospitalComment on above: Performed By: #### LILIAM #### [facility] [address] [place] [address] Dr. Talia Chaparro #0.33 103/ulCritically low1.20-3.80The [facility] on above:Performed By: #### LILIAM #### [facility] [address] [address] [address] Talia Chaparro%2.0 %Critically low20.5-60.0The [facility] HospitalComment on above:Performed By: #### CBCANALI #### [facility] [address] [address] [address] Talia GermanH26.3 deVinglk80.9-34.0The [facility] HospitalComment on above: Performed By: #### CBCANALI #### [facility] [address] [address] [address] Talia GermanHC34.1 g/hwXdspae75.9-35.2The [facility] HospitalComment on above:Performed By: #### LILIAM #### [facility] [address] [place] [address] Dr. Talia GermanV77.1 fLCritically low80.0-94.0The [facility] HospitalComment on above:Performed By: #### CBCANALI #### [facility] [address] [place] [address] Dr. Talia RosarioELOCYTE #NormalThe [facility] HospitalComment on above: Performed By: #### LILIAM #### [facility] [address] [place] [address] Dr. Talia RosarioELOCYTE %NormalThe [facility] HospitalComment on above: Performed By: #### LILIAM #### [facility] [address] [place] [address] Dr. Talia Pascual#1.00 103/ulCritically high0.30-0.80The [facility] Comment on above:Performed By: #### LILIAM #### [facility] [address] [place] [address] Dr. Talia Pascual%6.0 %Normal1.7-12.0The [facility] HospitalComment on above: Performed By: #### CBCANALI #### [facility] [address] [place] [address] Dr. Talia JonV10.9 fLNormal9.5-13.5The [facility] HospitalComment on above: Performed By: #### LILIAM #### [facility] [address] [address] [address] Talia Medina #NormalThe [facility] HospitalComment on above:Performed By: #### LILIAM #### [facility] [address] [address] [address] Talia CrossOCYTE %NormalThe [facility] HospitalComment on above:Performed By: #### LILIAM #### [facility] [address] [address] [address] Talia SalinasBCNormalThMemorial Health System Selby General HospitalComment on above:Performed By: #### LILIAM #### [facility] [address] [place] [address] Dr. Talia QuachT177 103/mjRleqip572-741Ogv [facility] HospitalComment on above: Performed By: #### LILIAM #### [facility] [address] [place] [address] Dr. Talia PortilloC5.90 106/ulNormal4.70-6.10The [facility] HospitalComment on above:Performed By: #### LILIAM #### [facility] [address] [place] [address] Dr. Talia PlascenciaRDW14.6 %Zqrpmw37.0-15.0The [facility] HospitalComment on above: Performed By: #### LILIAM #### [facility] [address] [place] [address] Dr. Talia Alejandro #15.27 103/ulCritically high1.40-6.50The [facility] on above:Performed By: #### LILIAM #### [facility] [address] [place] [address] Dr. Talia Alejandro %92.0 %Critically high43.0-75.0The [facility] HospitalComment on above:Performed By: #### LILIAM #### [facility] [address] [place] [address] Dr. Talia OlveraBC16.6 103/ulCritically high4.0-11.0The [facility] HospitalComment on above:Performed By: #### CBCMAN #### [facility] [address] [place] [address] Dr. Talia Torres BLOODon 18-05-3138Uaouzdnahrn examination of blood, cultureCulture Observations: NO GROWTH AT 5 DAYS.NormalThe [facility] HospitalComment on above:Performed By: #### CVDTBH #### [facility] [address] [place] [address] Dr. Talia PlascenciaCovid-19 PCR ([facility])on 72-55-7925RMKM-CoV-2 (COVID-19) RNA REKHA+probe Ql (Unsp spec)Not detectedNormalNOT DETECTEDThe [facility] Comment on above:Result Comment: When diagnostic testing is negative, the [...] for this test is supported by the [place] of Health and Human Service's declaration that circumstances exist to justify the emergency use of in vitro diagnostics for the detection and/or diagnosis of the virus that causes COVID-19. This EUA will remain in effect for the duration of the COVID-19 declaration justifying emergency of IVDs, unless it is terminated or revoked by the FDA (after which the test may no longer be used).Performed By: #### CBCMAN #### [facility] [address] [place] [address] Dr. Talia PlascenciaLACTATE/LACTIC ACIDon 08-67-7439Bwruvuu [Moles/Vol]1.2 mmol/L Normal0.4-1.9The [facility] HospitalComment on above:Performed By: #### INFLUAB #### [facility] [address] [place] [address] Dr. Talia PlascenciaPerformed By: #### POCGLUC #### [facility] [address] [address] [address] Talia Franco VENOUS BLOODon 95-47-7596TPT4 BWHMMQ09.1 mmHgCritically low 40.0-52.0The [facility] HospitalComment on above:Performed By: #### POCGLUC #### [facility] [address] [place] [address] Dr. Talia Franco VENOUS7.707Ylybna0.330-7.430The [facility] HospitalComment on above:Performed By: #### POCGLUC #### [facility] [address] [place] [address] Dr. Talia PlascenciaPHOEBE [facility] GLUCOSEon 94-04-9219Czfaxmw [Mass/Vol]154 mg/dL Critically rans62-970Zfl [facility] HospitalCommclaren [place] on above:Performed By: #### POCGLUC #### [facility] [address] [place] [address] Dr. Talia PlascenciaPROF 14(COMP METB)on 46-03-5457Pubgubl [Mass/Vol]3.7 g/dLNormal 3.4-5.0The [facility] HospitalComment on above:Performed By: #### CBCMAN #### [facility] [address] [place] [address] Dr. Talia PlascenciaAlbumin/Globulin [Mass ratio]0.9 {ratio}NormalThe [facility] HospitalCommclaren [place] on above:Performed By: #### CBCMAN #### [facility] [address] [place] [address] Dr. Talia Myers [Catalytic activity/Vol]72 U/QBxezcc82-406Plo [facility] HospitalComment on above:Performed By: #### CBCMAN #### [facility] [address] [place] [address] Dr. Talia Cody [Catalytic activity/Vol]20 U/WJtdfjk54-59Zkb [facility] HospitalComment on above:Performed By: #### CBCMAN #### [facility] [address] [place] [address] Dr. Talia Pérez gap [Moles/Vol]16.0 mmol/LNormalThe [facility] Comment on above:Performed By: #### CBCMAN #### [facility] [address] [address] [address] Talia PlascenciaAST [Catalytic activity/Vol]29 U/HOiboed27-91Ugo [facility] HospitalComment on above:Performed By: #### CBCANALI #### [facility] [address] [address] [address] Talia PlascenciaBilirubin [Mass/Vol]1.5 mg/dLCritically high0.2-1.0The [facility] HospitalComment on above:Performed By: #### CBCANALI #### [facility] [address] [place] [address] Dr. Talia PlascenciaCalcium [Mass/Vol]8.7 mg/dLNormal8.5-10.1[facility] Comment on above:Performed By: #### CBCANALI #### [facility] [address] [place] [address] Dr. Talia PlascenciaChloride [Moles/Vol]93 mmol/LCritically bqc15-546Pzv [facility] HospitalComment on above:Performed By: #### CBCANALI #### [facility] [address] [place] [address] Dr. Talia PlascenciaCO2 [Moles/Vol]21.4 mmol/EDrysfw19.0-32.0The [facility] Comment on above:Performed By: #### CBCANALI #### [facility] [address] [place] [address] Dr. Talia PlascenciaCreatinine [Mass/Vol]1.61 mg/dLCritically high0.70-1.30The [facility] HospitalComment on above:Performed By: #### CBCANALI #### [facility] [address] [place] [address] Dr. Talia SchwabGFR-AF TSIOXMQD75 mL/min/1.76b0Ultbxvhlza low>=60The [facility] HospitalComment on above:Performed By: #### CBCANALI #### [facility] [address] [place] [address] Dr. Talia SchwabGFR-NON AF ZISPGHJB11 mL/min/1.82v3Umkkgwjvhu low>=60The [facility] HospitalComment on above:Performed By: #### CBCANALI #### [facility] [address] [place] [address] Dr. Talia PlascenciaGlobulin (S) [Mass/Vol]3.9 g/dLNormalThMemorial Health System Selby General HospitalComment on above:Performed By: #### CBCANALI #### [facility] [address] [address] [address] Talia PlascenciaGlucose [Mass/Vol]182 mg/dLCritically witw89-325Pbl [facility] HospitalComment on above:Performed By: #### CBCANALI #### [facility] [address] [place] [address] Dr. Talia PlascenciaPotassium [Moles/Vol]4.4 mmol/LNormal3.5-5.1The [facility] Comment on above:Performed By: #### LILIAM #### [facility] [address] [place] [address] Dr. Talia PlascenciaProtein [Mass/Vol]7.6 g/dLNormal6.4-8.2The [facility] Comment on above:Performed By: #### CBCANALI #### [facility] [address] [place] [address] Dr. Talia PlascenciaSodium [Moles/Vol]126 mmol/LCritically uco592-766Ndo [facility] HospitalComment on above:Performed By: #### CBCANALI #### [facility] [address] [place] [address] Dr. Talia PlascenciaUrea nitrogen [Mass/Vol]30.0 mg/dLCritically high7.0-18.0The [facility] HospitalComment on above:Performed By: #### CBCANALI #### [facility] [address] [place] [address] Dr. Talia Chambers nitrogen/Creatinine [Mass ratio]18.6 mg/mgNormalThMemorial Health System Selby General HospitalComment on above:Performed By: #### CBCANALI #### [facility] [address] [place] [address] Dr. Talia PlascenciaPROTIMEon 48-21-7137ACL Coag (PPP) [Relative time]1.08 {INR} NormalThe Christ HospitalComment on above:Performed By: #### CVDTBH #### [facility] [address] [place] [address] Dr. Talia Morgan GUIDELINESSEE BELOWNormalThMemorial Health System Selby General HospitalComment on above:Result Comment: DESIRED INR: 2.0 - 3.0 CONDITIONS NOT LISTED BELOW 2.5 - 3.5 FOR PROSTHETIC HEART VALVE REPLACEMENT 2.5 - 3.5 RECURRENT THROMBOSIS Performed By: #### CVDTBH #### [facility] [address] [place] [address] Dr. Talia PlascenciaPT Coag (PPP) [Time]11.6 sNormal9.0-11.6The [facility] Comment on above:Performed By: #### CVDTBH #### [facility] [address] [place] [address] Dr. Talia Plata 42-73-9716yZTW Coag (Bld) [Time]32.2 mYehdvc57.3-36.2The [facility] HospitalComment on above:Performed By: #### CVDTBH #### [facility] [address] [place] [address] Dr. Talia Fraser, HIGH SENSITIVITYon 50-89-5427TBFBVT0.1 pg/mLNormal 4.0-76.1The [facility] HospitalComment on above:Result Comment: CUT-OFF POINTS HAVE BEEN ESTABLISHED BASED ON THE FOURTH UNIVERSAL DEFINITIONS OF MYOCARDIAL INFARCTION. THE UPPER REFERENCE LIMIT (URL) OF TROPONIN, DEFINED THE 99TH PERCENTILE OF cTnI DISTRIBUTION IN A REFERENCE POPULATION, HAS BEEN CONFIRMED THE DECISION THRESHOLD FOR WI DIAGNOSIS.Performed By: #### CBCMAN #### [facility] [address] [place] [address] Dr. Talia Fang YOAN DOP LEG RTon 34-09-1103PG YOAN DOP LEG RTEXAM: [place] YOAN DOP LEG RT HISTORY: Deep [...] Electronically authenticated by: TEVIN NAYAK Date: 2022-04-23 17:00[facility] HospitalECHOCARDIO M/2D COMPLETEon 82-70-7364VVJHWHUKVP M/2D COMPLETE Patient: JOHNATHAN CORREA Exam Date: 04/15/2022 : 1960 Gender:M Ordering : DR LUIS JEFFREY M.D. Admission #: [id number] Family : Order #: [id number] CLICK HERE TO VIEW EXAM ECHOCARDIOGRAM REPORT [...] by: Zhao Galan M.D. on 04/15/2022 at 19:32[facility] HospitalBNPon 44-13-6290Eoptmyrtrwt peptide B (Bld) [Mass/Vol]43.0 pg/mLNormal <=900.0The [facility] Daytonment on above:Performed By: #### BNP, CMP #### [facility] [address] [place] [address] Dr. Talia PlascenciaGLYCOHEMOGLOBIN A1Con 91-01-0424IEI RECOMMENDATIONSEE BELOWNormal The [facility] HospitalComment on above:Result Comment: ADA RECOMMENDED LIMIT 4.0 - 6.0 ADA THERAPEUTIC TARGET < 7.0 ACTION SUGGESTED > 7.0Performed By: #### A1C #### [facility] [address] [place] [address] Dr. Talia PlascenciaGlucose [Mass/Vol]203 mg/dLNoOhio State Health SystemCommclaren oakland on above:Performed By: #### A1C #### [facility] [address] [place] [address] Dr. Talia PlascenciaHbA1c (Bld) [Mass fraction]8.7 %Critically high4.5-6.2The [facility] HospitalCommclaren oakland on above:Performed By: #### A1C #### [facility] [address] [place] [address] Dr. Talia Ramirez 14(COMP METB)on 63-10-3739Qkcbnnh [Mass/Vol]3.9 g/dLNormal 3.4-5.0The [facility] HospitalComment on above:Performed By: #### BNP, CMP #### [facility] [address] [place] [address] Dr. Talia PlascenciaAlbumin/Globulin [Mass ratio]1.1 {ratio}NormalThe [facility] HospitalCommclaren [facility] on above:Performed By: #### BNP, CMP #### [facility] [address] [place] [address] Dr. Talia Myers [Catalytic activity/Vol]74 U/PCldrwq35-690Fem [facility] on above:Performed By: #### BNP, CMP #### [facility] [address] [place] [address] Dr. Yilan ChangALT [Catalytic activity/Vol]30 U/ZHyfkva27-61Dvd [facility] HospitalComment on above:Performed By: #### BNP, CMP #### [facility] [address] [place] [address] Dr. Talia Huizaron gap [Moles/Vol]12.2 mmol/LNormalThe [facility] Comment on above:Performed By: #### BNP, CMP #### [facility] [address] [place] [address] Dr. Talia PlascenciaAST [Catalytic activity/Vol]32 U/POzjbnq53-36Duk [facility] HospitalComment on above:Performed By: #### BNP, CMP #### [facility] [address] [place] [address] Dr. Talia PlascenciaBilirubin [Mass/Vol]0.8 mg/dLNormal0.2-1.0[facility] Comment on above:Performed By: #### BNP, CMP #### [facility] [address] [place] [address] Dr. Talia PlascenciaCalcium [Mass/Vol]8.7 mg/dLNormal8.5-10.1[facility] Comment on above:Performed By: #### BNP, CMP #### [facility] [address] [place] [address] Dr. Talia PlascenciaChloride [Moles/Vol]98 mmol/YKnzfuv63-885TyxThe [facility] Comment on above:Performed By: #### BNP, CMP #### [facility] [address] [place] [address] Dr. Talia PlascenciaCO2 [Moles/Vol]27.5 mmol/IAscimg97.0-32.0[facility] Comment on above:Performed By: #### BNP, CMP #### [facility] [address] [place] [address] Dr. Talia PlascenciaCreatinine [Mass/Vol]1.33 mg/dLCritically high0.70-1.30The [facility] HospitalComment on above:Performed By: #### BNP, CMP #### [facility] [address] [place] [address] Dr. Talia SchwabGFR-AF [place]>60Normal>=60The [facility] HospitalComment on above:Performed By: #### BNP, CMP #### [facility] [address] [place] [address] Dr. Talia SchwabGFR-NON AF QYDCMGNV15 mL/min/1.02o8Ndylkcknzt low>=60The [facility] HospitalComment on above:Performed By: #### BNP, CMP #### [facility] [address] [place] [address] Dr. Talia PlascenciaGlobulin (S) [Mass/Vol]3.6 g/dLNormalThe [facility] HospitalComment on above:Performed By: #### BNP, CMP #### [facility] [address] [place] [address] Dr. Talia PlascenciaGlucose [Mass/Vol]233 mg/dLCritically iuno99-619Ili [facility] HospitalComment on above:Performed By: #### BNP, CMP #### [facility] [address] [place] [address] Dr. Talia PlascenciaPotassium [Moles/Vol]4.7 mmol/LNormal3.5-5.1The [facility] Comment on above:Performed By: #### BNP, CMP #### [facility] [address] [place] [address] Dr. Talia PlascenciaProtein [Mass/Vol]7.5 g/dLNormal6.4-8.2The [facility] Comment on above:Performed By: #### BNP, CMP #### [facility] [address] [place] [address] Dr. Talia PlascenciaSodium [Moles/Vol]133 mmol/LCritically inq361-150Fll [facility] HospitalComment on above:Performed By: #### BNP, CMP #### [facility] [address] [place] [address] Dr. Talia PlascenciaUrea nitrogen [Mass/Vol]22.0 mg/dLCritically high7.0-18.0The [facility] HospitalComment on above:Performed By: #### BNP, CMP #### [facility] [address] [address] [address] Talia PlascenciaUrea nitrogen/Creatinine [Mass ratio]16.5 mg/mgNoBerger Hospital HospitalComment on above:Performed By: #### BNP, CMP #### [facility] [address] [address] [address] Talia PlascenciaALT (SGPT)on 74-20-3101TXD enzyme act/vol15 U/YDvpxly96-04NQO HealthcareComment on above:Performed By: #### [id number] ####[facility] [address] [facility], [place] [address]BCY (SGOT)on 07-14-2018 AST enzyme act/vol23 U/GVgaexn61-28WVW HealthcareComment on above:Performed By: #### [id number] ####[facility] [address] [facility] [place], [place] [address]Jlkvsgirhivd 12-86-2535Rrmruomnwo mass conc1.07 mg/dLNormal 0.50-1.30EMH HealthcareComment on above:Performed By: #### [id number] ####[facility] [address] [place] [address] GFR/1.73 sq M.predicted MDRD vol rate/areamL/min/{1.73_m2}NormalEMH Healthcare Comment on above:Result Comment: Interpretation for Chronic Kidney Disease:Stages 1&2 >60 Healthy or potential kidney damage.Mild decrease of GFR.Stage 3 30-59 Moderate decrease of GFR.Stage 4 15-29 Severe decrease of GFR.Stage 5 <15 Kidney failure or on dialysis.Performed By: #### [id number] ####[facility] [address] [place] [address] Electrolyte Panelon 24-32-4287Gpnsr gap 3 molar conc10 mmol/MNqylrh76-69RLH HealthcareComment on above:Performed By: #### [id number] ####[facility] [address] [facility] [place] [place] [address]Gqpqlubj molar conc99 mmol/EOhqmoo72-061FZC HealthcareComment on above:Performed By: #### [id number] ####[facility] [address] [place] [address] HCO3 molar conc (Bld)32 mmol/CYjyste06-91PTE HealthcareComment on above: Performed By: #### [id number] ####[facility] [address] [place], [place] [address]Nkkbavroc molar conc4.5 mmol/LNormal3.5-5.1EMH HealthcareComment on above:Performed By: #### [id number] ####[facility] [address] [place], [place] [address]Qiccrv molar ogst824 mmol/OZcljnp117-060IHU HealthcareComment on above:Performed By: #### [id number] ####[facility] [address] [place] [address] Lipid Panelon 16-04-8157Loeplverkcp in HDL mass conc34 mg/dLAbnormalEMH HealthcareComment on above:Result Comment: Normal Mod Risk High Risk5-9 >48 42- 48 <4210-14 >45 40-45 <4015-19 >38 34-38 <34Adult >39Performed By: #### [id number] ####[facility] [address] [place] [address] Cholesterol in LDL mass conc98 mg/dLNormal<130EMH HealthcareComment on above: Performed By: #### [id number] ####[facility] [address] [place], [place] [address]Jogsbjnrnrz in VLDL mass conc21 mg/dLNormal<30EMH HealthcareComment on above:Performed By: #### [id number] ####[facility] [address] [place], [place] [address]Rvfvqotuopj mass tkxr312 mg/dLNormal<200EMH HealthcareComment on above:Performed By: #### [id number] ####[facility] [address] [place] [address] Cholesterol.total/Cholesterol in HDL mass ratio4.5 {ratio}NormalEMH Healthcare Comment on above:Performed By: #### [id number] ####[facility] [address] [place], [place] [address]Sysjwofkvjgf mass yskm547 mg/dL Normal<150EMH HealthcareComment on above:Result Comment: 150-199 Borderline Iqgw735-864 High>500 Very HighPerformed By: #### [id number] ####[facility] [address] [place], [place] [address]Vknd Nitrogenon 36-79-2301Ustl nitrogen mass conc16 mg/dLNormal6-23EMH HealthcareComment on above:Performed By: #### [id number] ####[facility] [address] [place] [address] Vital Signs Date TimeVital SignValuePerforming FketbuijpAtqhigqm62-79-7200 09:260400Body phojjf831.45 cmLuis Jeffrey MD Work Phone: [phone])[address]10-28-2025 09:26-0400 Body mass index (BMI) [Ratio]52.6 kg/o6MivrfcLuis Jeffrey MD Work Phone: [phone])[address]10-28-2025 09:26-0400 Body pqwpby823.67 kgLuis Jeffrey MD Work Phone: 1(306)[address] [place], [place] [address]378410-28-2025 09:26-0400 Diastolic blood mm[Hg]Luis Jeffrey MD Work Phone: [phone])[address]10-28-2025 09:26-0400 Heart rate80 /minLuis Jeffrey MD Work Phone: [phone])[address]10-28-2025 09:26-0400 Systolic blood mfqpzahu085 mm[Hg]Luis Jeffrey MD Work Phone: 1(477)[address]03-17-2025 09:190400 Body kyefgj762.45 cmA[facility]03-17-2025 09:19-0400Body mass index (BMI) [Ratio]49.7 kg/q2AttnfffveAdena Health System03-17-2025 09:19-0400Body .17 kgA[facility]a Health System03-17-2025 09:19-0400Diastolic blood mm[Hg][facility] 11-20-2024 09:19-0400Heart rate69 /[facility] 11-20-2024 09:19-0400Respiratory rate12 /[facility] 11-20-2024 09:19-0927AoJ0% (BldA) [Mass fraction]96 %[facility]03-17-2025 09:19-0400Systolic blood loguchkm646 mm[Hg][facility]02-20-2025 09:15-0500Blood Pressure LocationKathy Lue [facility]02-20-2025 09:15-0500Diastolic blood qlypedpc71 mm[Hg]Lety Lue [facility]02-20-2025 09:15-0500Heart rate74 /minKathy Lue [facility]02-20-2025 09:15-0500Systolic blood yccwntht788 mm[Hg]Lety Lue [facility] [place] 123981-22-2024 11:26-0500Body opyvnxmbipv65.7 [degF]Vaibhav Slater MD Work Phone: [facility]11-22-2024 11:26-0500Diastolic blood tvbbuhmy97 mm[Hg]Vaibhav Slater MD Work Phone: [facility]11-22-2024 11:26-0500Heart rate 76 /Celestina Slater MD Work Phone: [facility]11-22-2024 11:26-0500 Respiratory rate18 /Celestina Slater MD Work Phone: [facility]11-22-2024 11:26-7057OnB6% (BldA) [Mass fraction]94 %Vaibhav Slater MD Work Phone: [facility]11-22-2024 11:26-0500Systolic blood motkkeav334 mm[Hg]Vaibhav Slater MD Work Phone: [facility]11-20-2024 05:00-0500Body mass index (BMI) [Ratio]49.74 kg/z8DwztybaVaibhav Slater MD Work Phone: 1(942)357-[address] [place], [place] 1861711-20-2024 05:00-0500Body wzyzbb137.06 kgVaibhav Slater MD Work Phone: [facility]11-18-2024 03:20-0500Body utqixv223.2 cmVaibhav Slater MD Work Phone: 1(763)256-[facility]11-07-2024 10:59-0500Body .2 cmGray Cancino DPM Work Phone: 1(093)323-[address] [place], [place] [address]Nyoofiptye65-63-5210 10:59-0500Body mass index (BMI) [Ratio]51.69 kg/f6MthjkacmGray Cancino DPM Work Phone: 1(780)048-[address] [place], [place] [address]Hnrywoqkwo78-55-0802 10:59-0500Body nhwibb920.69 kgGray Cancino DPM Work Phone: 1(525)3-[address] [place], [place] [address]Btbikrrzdo27-06-8494 10:59-0500Diastolic blood pqahyqqv84 mm[Hg]Gray Cancino DPM Work Phone: 1(275)034-[address] [place] [address]-07-2024 10:59-0500Heart rate86 /min Gray Cancino DPM Work Phone: 1([phone] [place], [place] [address]Nkymbvexsz02-50-0814 10:59-0500Systolic blood mm[Hg]Gray Cancino DPM Work Phone: 1(274)[address] [place], [place] [address]5110-31-2024 11:16-0400Body xrawvb873.2 cmGray Brayan DPM Work Phone: 1(206)[address] [place], [place] [address]5110-31-2024 11:16-0400Body mass index (BMI) [Ratio]51.69 kg/g0Snfvnlqx Brayan DPM Work Phone: 1(979)[address] [place] [address]-31-2024 11:16-0400Body .69 kgMercedesdonis Cancino DPM Work Phone: 1(302)[address] [place] [address]-31-2024 11:16-0400Diastolic blood magyimmi20 mm[Hg]Gray Cancino DPM Work Phone: 1(153)[address] [place] [address]-31-2024 11:16-0400Heart rate82 /min Gray Cancino DPM Work Phone: 1(525)[address] [place] [address]-31-2024 11:16-0400Systolic blood mm[Hg]Gray Cancino DPM Work Phone: 1(748)[address] [place] [address]-24-2024 10:52-0400Body .2 cmGray Brayan DPM Work Phone: 1(309)[address] [place] [address]-24-2024 10:52-0400Body mass index (BMI) [Ratio]51.69 kg/u8Gjkdfemw Brayan DPM Work Phone: 1(682)[address] [place] [address]-24-2024 10:52-0400Body etnspk708.69 kgGray Brayan DPM Work Phone: 1(672)[address] [place] [address]-24-2024 10:52-0400Diastolic blood pozqoixt57 mm[Hg]Gray Cancino DPM Work Phone: 1(834)[address] [place] [address]-24-2024 10:52-0400Heart rate88 /min Gray Cancino DPM Work Phone: 1(504)[address] [place] [address]-24-2024 10:52-0400Systolic blood oqosflmz670 mm[Hg]Gray Cancino DPM Work Phone: 1(179)[address] [place], [place] [address]10[address]24 13:46-0400Body ogtqyl871.2 cmGray Cancino DPM Work Phone: [facility] HospitalAwytlbwvkf59-46-1000 13:46-0400Body mass index (BMI) [Ratio]51.69 kg/n6HeycfypjGray Cancino DPM Work Phone: [facility] HospitalThhenbysjh64-80-0318 13:46-0400Body .69 kgGray Cancino DPM Work Phone: [facility] HospitalFlzadktgbm54-71-3216 13:46-0400Respiratory rate18 /Dejan Cancino DPM Work Phone: [facility] HospitalKyrvdzusdv22-30-3076 07:52-0400Body .45 cm[facility]10-09-2024 07:52-0400Body mass index (BMI) [Ratio]49.6 kg/s1KmpegaqswAdena Health System10-09-2024 07:52-0400Body judphm516.77 kgA[facility] Health System10-09-2024 07:52-0400Diastolic blood mm[Hg][facility]10-09-2024 07:52-0400 Heart rate85 /[facility]10-09-2024 07:52-0400 Respiratory rate18 /[facility]10-09-2024 07:52-0400 SaO2% (BldA) [Mass fraction]96 %[facility]10-09-2024 07:52-0400Systolic blood iqvgphsn808 mm[Hg][facility] 06-08-2024 08:34-0400Body .2 cmGray Cancino DPM Work Phone: [facility] HospitalLnryovdyqo89-73-5199 08:34-0400Body mass index (BMI) [Ratio]51.69 kg/y7MnxgarpgGray Cancino DPM Work Phone: [facility] HospitalManfulcqqp89-87-5578 08:34-0400Body asqqkr147.69 kgGray Cancino DPM Work Phone: 1(419)626-[address] [place] [address]-03-2024 08:34-0400Diastolic blood oqvoonre40 mm[Hg]Gray Cancino DPM Work Phone: [place] [address]Tnmjwmuyyg80-96-6454 08:34-0400Heart rate74 /min Gray Cancino DPM Work Phone: [place] [address]Wkqlwsbsrf14-14-4227 08:34-0400Respiratory rate18 /minGray Cancino DPM Work Phone: 1(184)804-[address] [place], [place] [address]Ucousxsqlr74-81-2056 08:34-0400Systolic blood ipuasiga250 mm[Hg]Gray Cancino DPM Work Phone: 1(806)444-[address] [place], [place] [address]Zyslhidbax62-20-3948 08:44-0400Body .2 cmGray Cancino DPM Work Phone: [facility] HospitalPbtqchrwub21-38-5801 08:44-0400Body mass index (BMI) [Ratio]51.69 kg/h4TckmaygaGray Cancino DPM Work Phone: 1(182)351-[address] [place] [address]-26-2024 08:44-0400Body baqrox222.69 kgGray Cancino DPM Work Phone: 1(085)029-[address] [place], [place] [address]Hronodynba78-16-7658 08:44-0400Diastolic blood mm[Hg]Gray Cancino DPM Work Phone: [place] [address]Rrsgvpnuqr70-87-0487 08:44-0400Heart rate75 /min Gray Cancino DPM Work Phone: 1(340)659-[address] [place] [address]-26-2024 08:44-0400Respiratory rate18 /minGray Cancino DPM Work Phone: [place] [address]Ivdbkatxzv57-23-5643 08:44-0400Systolic blood pfafyjrx470 mm[Hg]Gray Cancino DPM Work Phone: 1(667)587-[address] [place], [place] [address]Ingznkgfou71-35-0236 11:05-0400Body zpegjs971.2 cmGray Cancino DPM Work Phone: 1(291)306-[address] [place] [address]-19-2024 11:05-0400Body mass index (BMI) [Ratio]51.69 kg/h3WyrwsjxyGray Cancino DPM Work Phone: [place] [address]Nnxhnxvmdv95-03-6320 11:05-0400Body yigqph943.69 kgGray Cancino DPM Work Phone: [place] [address]Hjfpkloirw41-10-9795 11:05-0400Diastolic blood doknsjft81 mm[Hg]Gray Cancino DPM Work Phone: 1(958)031-[address] [place] [address]-19-2024 11:05-0400Heart rate75 /min Gray Cancino DPM Work Phone: 1(331)178-[address] [place] [address]-19-2024 11:05-0400Respiratory rate17 /minGray Cancino DPM Work Phone: 1(730)624-[address] [place], [place] [address]Njjlbhctno86-29-1936 11:05-0400Systolic blood oludsbwl546 mm[Hg]Gray Cancino DPM Work Phone: 1(398)949-[address] [place] [address]-12-2024 10:03-0400Body ngfuho111.2 cmGray Brayan DPM Work Phone: 1(815)818-[address] [place] [address]-12-2024 10:03-0400Body mass index (BMI) [Ratio]51.69 kg/s3TzhnwvfxGray Cancino DPM Work Phone: 1(364)148-[address] [place] [address]-12-2024 10:03-0400Body esugaw955.69 kgGray Cancino DPM Work Phone: 1(897)001-[address] [place] [address]-12-2024 10:03-0400Diastolic blood bxgmegfo64 mm[Hg]Gray Cancino DPM Work Phone: 1(585)147-[address] [place] [address]-12-2024 10:03-0400Heart rate77 /min Gray Cancino DPM Work Phone: 1(882)793-[address] [place], [place] [address]Tusphizmcj43-52-5484 10:03-0400Systolic blood hexhehoo389 mm[Hg]Gray Cancino DPM Work Phone: 1(506)398-[address] [place] [address]-05-2024 10:16-0400Body aatscx303.2 cmMercedesdonis Cancino DPM Work Phone: [facility] HospitalAhhawpvura61-07-9775 10:16-0400Body mass index (BMI) [Ratio]51.69 kg/n2Mgsxpdle Brayan DPM Work Phone: [facility] HospitalShzfazgrmi20-81-6070 10:16-0400Body gceykh397.69 kgMercedesdonis Cancino DPM Work Phone: 1(298)481-[address] [place], [place] [address]Vlpehcyomm35-51-0352 10:16-0400Diastolic blood mm[Hg]Gray Cancino DPM Work Phone: [place] [address]Ykrzuvgnpl82-72-3322 10:16-0400Heart rate78 /min Gray Cancino DPM Work Phone: [facility] HospitalVfyrprtqyd33-35-5559 10:16-0400Respiratory rate19 /minGray Brayan DPM Work Phone: 1(094)142-[address] [place], [place] [address]Jrtvtpgzey06-90-6783 10:16-0400Systolic blood lcbittvo025 mm[Hg]Gray Cancino DPM Work Phone: [place] [address]Yjwxiddfkc21-38-4878 10:29-0400Body bhhyjg458.2 cmMercedesdonis Cancino DPM Work Phone: [facility] HospitalMcnaccxhrx66-35-7692 10:29-0400Body mass index (BMI) [Ratio]51.69 kg/h9Rexgezmn Brayan DPM Work Phone: 1(260)233-[address] [place], [place] [address]Hizmshwbjf95-93-1073 10:29-0400Body udiedc616.69 kgGray Brayan DPM Work Phone: [place] [address]Sxqpblfuix70-27-8086 10:29-0400Diastolic blood xzeanyjt14 mm[Hg]Gray Cancino DPM Work Phone: [place] [address]Vtypgpbuuf65-30-2181 10:29-0400Heart rate85 /min Gray Cancino DPM Work Phone: 1(117)023-[address] [place], [place] [address]Umpylvybef18-86-2169 10:29-0400Systolic blood xindcpxl681 mm[Hg]Gray Cancino DPM Work Phone: [facility] HospitalLnsfzfwmcl45-45-7163 11:15-0400Body usqjfp464.45 cmA[facility]08-26-2024 11:15-0400Body mass index (BMI) [Ratio]51.4 kg/d4QlksjemimAdena Health System08-26-2024 11:15-0400Body desakp576.07 kgA[facility]a Health System08-26-2024 11:15-0400Diastolic blood biqqwvql82 mm[Hg][facility]08-26-2024 11:15-0400 Heart rate77 /[facility]08-26-2024 11:15-0400 Respiratory rate18 /[facility]08-26-2024 11:15-0400 SaO2% (BldA) [Mass fraction]95 %[facility]08-26-2024 11:15-0400Systolic blood fywuginz343 mm[Hg][facility] 03-08-2024 08:08-0400Blood Pressure LocationKathy Lue [facility]07-03-2024 08:08-0400Diastolic blood mm[Hg]Lety Lue [facility]07-03-2024 08:08-0400Heart rate70 /minKathy Lue [facility]07-03-2024 08:08-0400Respiratory rate16 /minKathy Lue [facility]07-03-2024 08:08-0400Systolic blood mm[Hg]Lety Lue [facility]06-19-2024 11:41-0400Body ekrgxd539.45 cmA[facility]06-19-2024 11:41-0400Body mass index (BMI) [Ratio]50.1 kg/g9OerfjpvwyAdena Health System06-19-2024 11:41-0400Body udtgij719.41 [facility]06-19-2024 11:41-0400Diastolic blood kfudmxzw48 mm[Hg] [facility]06-19-2024 11:41-0400Heart rate75 /[facility]06-19-2024 11:41-0400Systolic blood mm[Hg] [facility]03-26-2024 08:52-0400Body syxdeu638.45 cm [facility]03-26-2024 08:52-0400Body mass index (BMI) [Ratio]50.1 kg/k6HuvtetnbqAdena Health System03-26-2024 08:52-0400Body ivhqle332.41 [facility]03-26-2024 08:52-0400Diastolic blood ubgdmrcz83 mm[Hg][facility]03-26-2024 08:52-0400 Heart rate76 /[facility]03-26-2024 08:52-0400Systolic blood ymoyoycg786 mm[Hg][facility]01-10-2024 08:05-0500 Blood Pressure LocationKathy Lue [facility]01-10-2024 08:05-0500Diastolic blood zuplmxul12 mm[Hg]Lety Lue [facility]01-10-2024 08:05-0500Heart rate75 /minKathy Lue [facility]01-10-2024 08:05-0500Systolic blood wmnpnney771 mm[Hg]Lety Lue [facility]12-01-2023 09:45-0500Body bbkiss059.45 cmLuis Wojciech [facility] [employer] Other 573453-08-1129 09:45-0500Body mass index (BMI) [Ratio] 48.51 kg/t9Nzvkhz Wojciech Other [facility] [employer] Other 12-01-2023 09:45-0500Body .61 kgLuis Wojciech Other [facility] [employer] Other 12-01-2023 09:45-0500Diastolic blood qiooqdqc23 mm[Hg] Luis Jeffrey Other [employer] Other 12-01-2023 09:45-0500Systolic blood zvfakkfq299 mm[Hg] Luis Jeffrey Other [employer] Other 06-28-2023 09:30-0400Blood Pressure LocationKathy Lue [facility]06-28-2023 09:30-0400Diastolic blood mm[Hg]Lety Lue [facility]06-28-2023 09:30-0400Heart rate74 /minKathy Lue [facility]06-28-2023 09:30-0400Respiratory rate16 /minKathy Lue [facility]06-28-2023 09:30-0400Systolic blood aeyqlwgv855 mm[Hg]Lety Lue [facility]04-18-2023 09:53-0400Body baxtzi925.99 cmLuis Jeffrey Work Phone: [phone]-Lslfd [place] [employer]athy 250 DO Work Phone: 1(245) 189-914804-18-2023 09:53-0400Body mass index (BMI) [Ratio]46.9 kg/j0XnutxmLius Jeffrey Work Phone: [phone]-Bshfv [place] [employer]-[place] 250 DO Work Phone: 1(769) 456-466704-18-2023 09:53-0400Body surface area Derived from formula2.49 d4AwqpdsLuis Jeffrey Work Phone: [phone]-Hqsxb [place] [employer] 250 DO Work Phone: 1(126) 701-153304-18-2023 09:53-0400Body .98 kgLuis Jeffrey Work Phone: 1(710) 362-2292040-2285PA-Vswzg [place] [employer] 250 DO Work Phone: 1(269) 423-924104-18-2023 09:53-0400Diastolic blood mm[Hg] Luis Jeffrey Work Phone: 1(857) 199-1920792-3142GT-Oynhr [place] [facility] 250 DO Work Phone: 1(931) 556-284104-18-2023 09:53-0400Heart rate74 /minLuis Jeffrey Work Phone: [phone]-Wmnmd [place] [employer] 250 DO Work Phone: 1(279) 917-831404-18-2023 09:53-0400Systolic blood fajndyam359 mm[Hg] Luis Jeffrey Work Phone: [phone]-Kpwrd [place] [employer] 250 DO Work Phone: 1(520) 946-229004-05-2023 09:45-0400Body vaegzi852.45 cmLuis Jeffrey Other [employer] Other 04-05-2023 09:45-0400Body mass index (BMI) [Ratio] 47.52 kg/v8XxygiiLuis Jeffrey Other [employer] Other 04-05-2023 09:45-0400Body hkzoeo877.71 kgAna Rosacorwin Jeffrey Other [employer] Other 04-05-2023 09:45-0400Diastolic blood otuzlpxl46 mm[Hg] Luis Jeffrey Other [employer] Other 04-05-2023 09:45-6638JkC9% (BldA) [Mass fraction]97 % Luisyo Jeffrey Other [employer] Other 04-05-2023 09:45-0400Systolic blood aghabwly490 mm[Hg] Luis Jeffrey Other [employer] Other 03-22-2023 10:15-0400Blood Pressure LocationKathy Lue [facility]03-22-2023 10:15-0400Diastolic blood foyutfzc43 mm[Hg]Lety Lue [facility]03-22-2023 10:15-0400Heart rate76 /minKathy Lue [facility]03-22-2023 10:15-0400Respiratory rate16 /minKathy Lue [facility]03-22-2023 10:15-0400Systolic blood omxzscth706 mm[Hg]Lety Lue [facility]12-14-2022 07:54-0500Blood Pressure LocationKathy Lue [facility]12-14-2022 07:54-0500Diastolic blood mm[Hg]Lety Gonzalez [facility]12-14-2022 07:54-0500Heart rate82 /minLety Zahraae [facility]12-14-2022 07:54-0500Systolic blood hkjfojns237 mm[Hg]Lety Lureddy [facility] Encounters Encounter DateEncounter TypeCare ProviderFacilityStart: 74-36-4445ejscjgttym Lety Borja. LueFacility:EU tart: 07-10-4453jzxkmjmpvdMxfnq M. Lue [facility]: 59-37-0568glcpngzrmvDqgfz M. LueFacility: [place] Start: 07-03-2025 End: 19-96-0868nrvrnblhgmXmxdin E Braun MD Work Phone: [facility]: 07-03-2025 End: 97-41-8405Zcuikxt encounter procedureLuis Jeffrey MD-[facility] Work Phone: Start: 06-27-2025 End: 44-68-6415vmngxwospoWfgma M. LueFacility: tart: 06-27-2025 End: 86-27-7195Lpompce encounter procedureLety Gonzalez [facility] start: 06-13-2025 End: 06-41-6019lyvsxularjChcty M. LueFacility:EU tart: 06-13-2025 End: 31-93-0568Lzvwymf encounter procedureLety Vitale [facility] start: 05-30-2025 End: 06-79-3961ovwfsbwtnkKplty Flora. LueFacility:[place]: 05-30-2025 End: 32-10-7357Yjxtkpb encounter procedureLety Gonzalez [facility] [employer] start: 05-16-2025 End: 37-27-3841qrlakibikwUbhzeiv R WATERSFacility:EU [place]Start: 05-16-2025 End: 91-99-6558Oqvrcyk encounter procedureGurwinder SILVEIRA [facility] [employer] start: 05-02-2025 End: 29-07-5600ywzeeyqgaoLfani M. LueFacility:EU [place]Start: 05-02-2025 End: 05-04-8482Mmwpqfq encounter procedureLety Gonzalez [facility] [employer] start: 04-25-2025 End: 51-75-7614hftelquedaXewnb M. LueFacility:FTMCStart: 04-25-2025 End: 13-33-2596Tbekjzn encounter procedureLety Gonzalez [facility] [employer] start: 04-18-2025 End: 64-26-4166qlpbbcfjxdXozsy M. LueFacility:EU [place]Start: 04-18-2025 End: 96-72-5495Tpckgvr encounter procedureLety Gonzalez [facility] [employer] start: 04-04-2025 End: 17-70-4648afubemoqpqEoish M. LueFacility:EU [place]Start: 04-04-2025 End: 92-44-6275Jpepaus encounter procedureSammiechandan Gonzalez [facility] [employer] start: 03-21-2025 End: 44-89-1200vrlgkldyjsJgotx MAbhinav LueFacility:EU [place]Start: 03-21-2025 End: 28-14-7351Oqugips encounter procedureSammiechandan Gonzalez [facility] [employer] start: 03-07-2025 End: 24-23-4113juspwosuhdClkcv MAbhinav LueFacility:EU [place]Start: 03-07-2025 End: 26-98-3262Wrmccvw encounter procedureLety FloraAbhinav Carlos [facility] [employer] start: 02-21-2025 End: 13-25-4278yebsidzpazYlllh MAbhinav LueFacility:EU evueStart: 02-21-2025 End: 75-72-4397Awupelc encounter procedureSammiechandan Gonzalez [facility] [employer] start: 02-14-2025 End: 41-49-0001hhlsllrcsyWsoceu TannaFacility:EU [place]vueStart: 02-14-2025 End: 14-18-3037Lfyamdi encounter procedureLauren Marlee [facility] [employer] start: 01-31-2025 End: 65-01-6212gztxhxheomPohvzb TannaFacility:EU [place]Start: 01-31-2025 End: 93-86-2712Sbsuevi encounter procedureLauren Marlee [facility] start: 01-17-2025 End: 76-34-6634ambmlllqfnLmpril TannaFacility:EU [place]Start: 01-17-2025 End: 34-44-0591Cuoosqc encounter procedureLalima Marlee [facility] start: 01-03-2025 End: 44-29-3629tcolygybfbHslmzo TannaFacility:EU [place]Start: 12-21-2024 End: 53-57-5887tuqvcsgoppJgonl M. LueFacility:EU [place]Start: 12-20-2024 End: 20-69-7334tyjchuvkyeAmudg M. LueFacility:[facility] [place]Start: 12-06-2024 End: 58-89-8433wydfcqzhqpCvtzkx TannaFacility:EU [place]Start: 11-22-2024 End: 24-60-9235kytvrwubfmWnyny M. LueFacility:[facility] [place]Start: 11-20-2024 End: 37-03-9941zqoqieiayzMircluxaaUC Health Work Phone: Start: 11-20-2024 End: 91-70-3090Bbqamcz encounter procedureUnc [facility]Do[facility] Work Phone: Start: 11-08-2024 End: 15-90-2524gfgsyzxrqtCwvff M. LueFacility:[facility] [place]Start: 11-08-2024 End: 30-17-6327Rsnecww encounter procedureLety Gonzalez [facility] start: 10-27-2024 End: 97-63-6293kngeinusqsXfbcl M. LueFacility:EU [place]Start: 10-27-2024 End: 26-27-1677Rjmycrj encounter procedureKathy M. Lue [facility] Kathy Start: 10-26-2024 End: 08-30-1859uvoojkccciPglzp M. LueFacility:[facility] [place]Start: 10-26-2024 End: 23-10-2257Wgepcfb encounter procedureKathy M. Lue [facility] [place] Start: 10-18-2024 End: 35-23-2271dwbnjldsauJwxnp M. LueFacility:FTMCStart: 10-18-2024 End: 12-23-8921Gpx Drop offKathy M. Lue [facility] Start: 10-18-2024 End: 49-45-1299abblctsyfcGphxf M. LueFacility:[facility] [place]vueStart: 10-18-2024 End: 06-91-6636Nhoyumt encounter procedureKathy M. Lue [facility] of [facility] start: 10-11-2024 End: 70-22-0676cowaesukxxCmjpi M. LueFacility:EU BellevueStart: 10-11-2024 End: 39-65-4716Wfbpkqk encounter procedureKathy M. Lue [facility] start: 09-20-2024 End: 01-34-3128gkeclosumyHcxdp M. LueFacility:EU BellevueStart: 09-20-2024 End: 52-69-3668Sjjcsfn encounter procedureKathy M. Lue [facility] start: 09-13-2024 End: 12-87-4880Pbf Drop offSammiechandan BorjaAbhinav Carlos [facility] Start: 09-13-2024 End: 43-16-5475jeflueqlgpPvgnr FloraAbhinav LueFacility:FTMCStart: 09-13-2024 End: 64-37-2361Mvmnhrg encounter procedureLety FloraAbhinav Vitalreddy [facility] start: 09-07-2024 End: 62-60-5676ylmevsvflrJhzsg FloraAbhinav LueFacility:EU BellevueStart: 09-07-2024 End: 53-62-9619Buwjkin encounter procedureLety Vitalreddy [facility] start: 08-23-2024 End: 39-50-3079kxqmrnkhpzPrmco MAbhinav LueFacility:EU BellevueStart: 08-23-2024 End: 26-72-4566Sppqrdq encounter procedureSammiechandan BorjaAbhinav Vitalreddy [facility] start: 93-36-5251fstnfpbgnyJhnen M. LueFacility:EU BellevueStart: 50-50-3705ttnihtdkjeTjdbr M. LueFacility:EU BellevueStart: 35-60-1733elcjtixgpxEFVWBTSaint Alphons[facility] Ambulatory PPGStart: 07-24-2024 End: 66-04-1051Jrtjghwdx encounterSharon [facility] Call CenterComment on above:Consult (Small bowel obstruction)Start: 07-24-2024 End: 43-54-6923Kvmsqhlhiz and management of inpatientSiris Rodriguez MD Work Phone: [facility] Division of [facility] - 6 CARD Tele/IntermediateComment on above:JAM (obstructive sleep apnea) (Primary Dx); Small bowel obstruction (CMS-HCC); Primary hypertensionStart: 76-77-2551iksuclayazEKAPTCOdessa Memorial Healthcare Center Ambulatory PPGStart: 77-63-7450htfyfotucrZEVPGLOdessa Memorial Healthcare Center Ambulatory PPGStart: 07-13-2024 End: 94-86-7698Lcxmsx Pako Cancino DPM Work Phone: noms CI PODIATRYStart: 07-13-2024 End: 26-27-4789Wqvvwd Pako Cancino DPM Work Phone: noms CI PODIATRYStart: 07-13-2024 End: 60-38-4986Stqsoc follow up visit related to original Peyton Cancino DPM Work Phone: noms CI PODIATRYComment on above:Diabetes 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 polyneuropathy, unspecified whether terminal operations manager insulin use (CMS/HCC) (Primary Dx); Foot ulcer, right, with fat layer exposed (CMS/HCC); Foot ulcer, left, with fat layer exposed (CMS/HCC)Start: 07-13-2024 End: 01-46-5534fxffsvetriPMYSWOFJ A BROWNNot AvailableStart: 07-12-2024 End: 32-44-0099gaoqcbpdmuIemzg M. LueFacility:PAO BellevueStart: 07-12-2024 End: 81-67-0305Rlgqtiu encounter Christopher Gonzalez [facility] start: 07-06-2024 End: 14-27-8941Weywlp Pako Cancino DPM Work Phone: noms CI PODIATRYStart: 07-06-2024 End: 09-89-9830Bzxcsp Pako Cancino DPM Work Phone: noms CI PODIATRYStart: 07-06-2024 End: 40-46-2568Jzsvihi encounter procedureNicmartha Blankenship Brown DPM Work Phone: noms CI PODIATRYComment on above:Diabetes 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 polyneuropathy, unspecified whether long-term insulin use (CMS/HCC) (Primary Dx); Foot ulcer, right, with fat layer exposed (CMS/HCC)Start: 07-06-2024 End: 03-81-5591purgatqqyuVZIOIQWT A BROWNNot AvailableStart: 06-29-2024 End: 71-05-3382Bwxlvn flowsheetNicholas A Brown DPM Work Phone: noms CI PODIATRYStart: 06-29-2024 End: 94-96-0973Esnkcb flowsheetNicholas A Brown DPM Work Phone: noms CI PODIATRYStart: 06-29-2024 End: 70-44-0545Lbalykb encounter procedureNicholas A Brown DPM Work Phone: noMS CI PODIATRYComment on above:Diabetes 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 polyneuropathy, unspecified whether terminal operations manager insulin use (CMS/HCC) (Primary Dx); Foot ulcer, right, with fat layer exposed (CMS/HCC)Start: 06-29-2024 End: 69-86-8266muuzcnggjsTSQEPGYG A BROWNNot AvailableStart: 06-28-2024 End: 62-38-6032ovdxjwxtteWvfsq M. LueFacility:PAO BellevueStart: 06-28-2024 End: 35-62-0376Etacsis encounter Christopher Gonzalez [facility] start: 06-15-2024 End: 62-56-1862Qcgvde flowsheetNicannitaas A Brown DPM Work Phone: noms CI PODIATRYStart: 06-15-2024 End: 88-63-0967Xjsjiu flowsheetNicholas A Brown DPM Work Phone: noMS CI PODIATRYStart: 06-15-2024 End: 94-35-8689Srbyzg outpatient visit 25 minutesGray Cancino DPM Work Phone: noms CI PODIATRYComment on above:Diabetes 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 polyneuropathy, unspecified whether long-term insulin use (CMS/HCC) (Primary Dx); Foot ulcer, right, with fat layer exposed (CMS/HCC); Foot ulcer, left, with fat layer exposed (CMS/HCC); PVD (peripheral vascular disease) (CMS/HCC)Start: 06-15-2024 End: 39-67-5088uynowmdkfdLNLUBCPN A BROWNNot AvailableStart: 06-14-2024 End: 44-61-9604aingbzpmmvXydkrAultman Orr[facility] Work Phone: Start: 06-14-2024 End: 32-86-6089Jiqbkfs encounter procedureUnc Health [facility] Work Phone: Start: 06-08-2024 End: 77-87-5473Jqelyh flowsandersonNicannitaas A Brown DPM Work Phone: noms CI PODIATRYStart: 06-08-2024 End: 47-80-2492Zguyuo flowsheetNicholas A Brown DPM Work Phone: noms CI PODIATRYStart: 06-08-2024 End: 95-35-7898Ooqmkj outpatient visit 15 minutesGray Blankenship Brown DPM Work Phone: noms CI PODIATRYComment on above:Foot ulcer, left, with fat layer exposed (CMS/HCC) (Primary Dx); Diabetes 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 polyneuropathy, unspecified whether terminal operations manager insulin use (CMS/HCC); Foot ulcer, right, with fat layer exposed (CMS/HCC)Start: 06-08-2024 End: 57-19-1260skklpslcyxRBIQSSEQ A BROWNNot AvailableStart: 06-01-2024 End: 01-56-7235Olffin flowsheetNicholas A Brown DPM Work Phone: noms CI PODIATRYStart: 06-01-2024 End: 56-96-8202Vhdpwzedgardo Cancino DPM Work Phone: noms CI PODIATRYStart: 06-01-2024 End: 95-02-4289Wnzhdl outpatient visit 10 minutesGray Cancino DPM Work Phone: noms CI PODIATRYComment on above:Diabetes 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 polyneuropathy, unspecified whether terminal operations manager insulin use (CMS/HCC) (Primary Dx); Foot ulcer, right, with fat layer exposed (CMS/HCC); PVD (peripheral vascular disease) (CMS/[facility]); Xerosis cutisStart: 06-01-2024 End: 95-74-7429lfrisjouokCIBPEJWO A BROWNNot AvailableStart: 05-31-2024 End: 31-81-0736awlykyujeyMizqw M. LueFacility:EU BellevueStart: 05-31-2024 End: 63-24-4519Yogfnqq encounter Christopher Gonzalez [facility] start: 05-25-2024 End: 21-19-4795Xzrefuedgardo Cancino DPM Work Phone: noms CI PODIATRYStart: 05-25-2024 End: 98-79-3207Xgwbebkali Cancino DPM Work Phone: noms CI PODIATRYStart: 05-25-2024 End: 09-32-9478Shjrfzk encounter procedureGray Cancino DPM Work Phone: noms CI PODIATRYComment on above:Diabetes 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 polyneuropathy, unspecified whether terminal operations manager insulin use (CMS/HCC) (Primary Dx); Foot ulcer, right, with fat layer exposed (CMS/HCC); PVD (peripheral vascular disease) (CMS/HCC)Start: 05-25-2024 End: 85-01-1811emvrtjbqvyRHOIHLSC A BROWNNot AvailableStart: 05-18-2024 End: 04-24-6278Vtquht outpatient visit 15 minutesGray Cancino DPM Work Phone: noms CI PODIATRYComment on above:Xerosis cutis (Primary Dx); Skin fissure; Diabetes 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 polyneuropathy, unspecified whether terminal operations manager insulin use ([facility]); Foot ulcer, right, with fat layer exposed ([facility]); PVD (peripheral vascular disease) ([facility]/HCC)Start: 05-18-2024 End: 76-16-4814wdqzhfdkcpAKXYCAFP A BROWNNot AvailableStart: 05-17-2024 End: 02-79-0934teexdaboziXmxcz M. LueFacility:PAO BellueStart: 05-17-2024 End: 93-33-3497Iepsvay encounter Christopher Gonzalez [facility] start: 05-11-2024 End: 85-63-2373Vbbpsw outpatient visit 15 minutesGray Cancino DPM Work Phone: noms CI PODIATRYComment on above:Xerosis cutis (Primary Dx); Skin fissure; PVD (peripheral vascular disease) ([facility]); Diabetes 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 polyneuropathy, unspecified whether long-term insulin use ([facility]); Foot ulcer, right, with fat layer exposed ([facility])Start: 05-11-2024 End: 26-00-1409oncalnbsxdDLUKANFM A BROWNNot AvailableStart: 05-04-2024 End: 05-44-1883Zcpwqt flowsheetGray Cancino DPM Work Phone: noms CI PODIATRYStart: 05-04-2024 End: 57-82-3490Vsxjrm ysabelheetGray Cancino DPM Work Phone: noms CI PODIATRYStart: 05-04-2024 End: 64-96-7786Pptceu outpatient new 30 minutesGray Krzysztof Brayan DPM Work Phone: noms PODIATRYComment on above:Foot ulcer, right, with fat layer exposed ([facility]) (Primary Dx); Xerosis cutis; Skin fissure; Diabetes 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 polyneuropathy, unspecified whether long-term insulin use ([facility]); PVD (peripheral vascular disease) ([facility])Start: 05-04-2024 End: 47-53-2324xzhmruwtveQGWRLVGX A BROWNNot AvailableStart: 05-02-2024 End: 95-84-6918grzcubuaujYxnxa M. LueFacility:EU tart: 05-02-2024 End: 60-29-7843Anyukpp encounter Christopher Gonzalez [facility] start: 05-01-2024 End: 71-40-0657jgrkeccfbqBhbierqegUC Health Work Phone: Start: 05-01-2024 End: 30-34-0042Yhduuns encounter procedureAugustus Physician GroupHACKENSACK [facility] Work Phone: Start: 04-19-2024 End: 12-90-9697tqdlzysolqOfjst M. LueFacility:PAO PerezueStart: 04-19-2024 End: 61-97-4830Ixkrfqn encounter Christopher Gonzalez [facility] start: 04-17-2024 End: 10-20-3858wasmnrcdjgVeucuxyliUC Health Work Phone: Start: 04-17-2024 End: 31-53-6388Uaknztx encounter [facility] Vascular Surgery Work Phone: Start: 04-05-2024 End: 11-35-6075kgbkpbkyyrJkmub M. LueFacility:EU BellevueStart: 04-05-2024 End: 83-77-6355Csqqdsz encounter procedureLety FloraAbhinav Carlos [facility] start: 03-22-2024 End: 82-43-2284biwvqmkilcUugnc M. LueFacility:EU BellevueStart: 03-22-2024 End: 74-35-4137Kdmsnha encounter procedureLety FloraAbhinav Vitalreddy [facility] start: 03-08-2024 End: 33-03-6148vzesjpokxiZlqem M. LueFacility:EU BellevueStart: 03-08-2024 End: 68-36-2714Wmrhbse encounter procedureLety Vitalreddy [facility] start: 03-01-2024 End: 38-00-7532Wgg Drop offLUIS JEFFREY [facility] Start: 02-74-6484Bgi-patient / Non-visitUnc Health Rockingham Phys[facility] GroupE[facility] Work Phone: Start: 03-01-2024 End: 44-36-9455Unm Drop offLety Vitalreddy [facility] Start: 03-01-2024 End: 68-16-5141raaxzbiohjNJWPCS BRAUNFacility:FTMCStart: 03-01-2024 End: 15-13-0792Brsbcnd encounter procedureLety FloraAbhinav Vitalreddy [facility] start: 02-23-2024 End: 67-43-2177spudeozzflJryzkkcimUC Health Work Phone: Start: 02-23-2024 End: 81-66-3000Gkbruiw encounter procedureUnc Health [facility] Phys[facility] GroupDoctors Hospital Work Phone: Start: 02-23-2024 End: 48-91-7642ffzbkgyllrKshhz M. LueFacility:EU BellevueStart: 02-23-2024 End: 52-86-9653Qogzlkf encounter procedureLety Gonzalez [facility] start: 02-09-2024 End: 30-40-2541lgwdhtromnXVRosaC JEMIMA Blakely PERRYFacility:EU BellevueStart: 02-09-2024 End: 81-12-7208Shfwkit encounter procedureJENNIFER E JIMMY [facility] start: 01-25-2024 End: 19-14-0386zyxxuyovjdHFRosaC JEMIMA Blakely PERRYFacility:EU BellevueStart: 01-25-2024 End: 96-70-1647Donawei encounter procedureJENNIFER E JIMMY [facility] start: 01-11-2024 End: 05-31-2462fifuqpxovxVB-C JEMIMA Blakely PERRYFacility:EU BellevueStart: 01-11-2024 End: 31-90-4068Wqaldbq encounter procedureJENNIFER E JIMMY [facility] start: 12-28-2023 End: 89-94-0281pyamyfmyjuGZRosaC JEMIMA Blakely PERRYFacility:EU BellevueStart: 12-28-2023 End: 94-56-5350Lcbwxma encounter procedureJENNIFER E JIMMY [facility] start: 12-14-2023 End: 28-84-3416snsqtmtddoQN- JEMIMA Blakely PERRYFacility:EU BellevueStart: 12-14-2023 End: 09-73-7811Tgodhzs encounter procedureJENNIFER Reddy JIMMY [facility] start: 66-02-3057Ozh-patient / Non-visitUnc Health Rockingham Physician GroupE[facility] Work Phone: Start: 11-30-2023 End: 39-19-5727ysbfpxabcwSO JEMIMA Blakely [facility] Work Phone: Start: 11-30-2023 End: 37-95-3006Mvsjcur encounter procedureUnc Health Rock[facility] Physician GroupDoctors Hospital Work Phone: Start: 79-32-1146Ovw-patient / Non-visitUnc Health [facility] Work Phone: Start: 11-16-2023 End: 94-46-7805cjaygwzisvBfrxj M. LueFacility:EU BellevueStart: 11-16-2023 End: 20-22-8016Rpkztpj encounter procedureLety Gonzalez [facility] start: 11-03-2023 End: 06-39-1574mdozeqycmlHiahg M. LueFacility:EU BellevueStart: 11-03-2023 End: 75-39-4901Lrhqppt encounter procedureLety Gonzalez [facility] start: 10-20-2023 End: 69-12-5464swcjoonjflBlvrb M. LueFacility:EU BellevueStart: 10-20-2023 End: 25-27-9448Bwklxzc encounter procedureKathy M. Lue [facility] start: 09-29-2023 End: 59-61-4200zotwhyuwseXzeik M. LueFacility:EU BellevueStart: 09-29-2023 End: 64-26-7777Vuifsyy encounter procedureKathy M. Lue [facility] start: 09-15-2023 End: 55-70-2067himlrxflznDjeik M. LueFacility:EU BellevueStart: 09-15-2023 End: 64-89-4923Nqovjut encounter procedureKathy M. Lue [facility] start: 09-08-2023 End: 93-04-9062Aiq Drop offKathy M. Lue [facility] Start: 09-08-2023 End: 68-30-2104lxpimrodilBzcxa M. LueFacility:FTMCStart: 09-08-2023 End: 60-61-4136Ymwypsf encounter procedureKathy M. Lue [facility] start: 09-01-2023 End: 87-43-6459rsxxkbdxoiDyjmi M. LueFacility:EU BellevueStart: 09-01-2023 End: 84-89-5725Ucfnmzu encounter procedureLety FloraAbhinav Vitalreddy [facility] start: 08-26-2023 End: 80-88-4728lvlggidziaLtxjvc Braun Other [employer] Other Start: 50-96-0871Sbwzgscyz encounterLuis Jeffrey [facility] ClinicStart: 08-09-2023 End: 75-25-6685taerhtvyhwSjpzrw Braun Other [employer]Tw[employer] Other Start: 88-30-5006Ltobpgnmu encounterLuis BonnerMiguel Angel Corrales [facility] ClinicStart: 08-06-2023 End: 87-07-7627pymmiqraykMgmffn Braun Other [facility] [employer] Other Start: 32-86-7916Bgrejv outpatient visit 25 minutes Luis JeffreyZanesville City Hospital ClinicStart: 08-04-2023 End: 33-98-2150gqoywbhsuaCtefz M. LueFacility:EU evueStart: 08-04-2023 End: 64-84-5168Sowjovh encounter procedureLety FloraAbhinav Vitalreddy [facility] start: 07-21-2023 End: 23-12-8023ekhdnixnrzCbcee M. LueFacility:EU BellevueStart: 07-21-2023 End: 92-06-5763Kaypmtu encounter procedureKathy M. Lue [facility] start: 07-07-2023 End: 80-18-6167rmtssbtwkwUxxnh M. LueFacility:EU BellevueStart: 07-07-2023 End: 54-84-1550Tomxrcw encounter procedureKathy FloraAbhinav Vitale [facility] start: 06-23-2023 End: 37-40-3376tfqxhfzpxmBqooi M. LueFacility:EU BellevueStart: 06-23-2023 End: 02-60-6016Neizoug encounter procedureKathy Flora. Lue [facility] start: 06-09-2023 End: 79-26-5480vgzlthkqnlQpcjg M. LueFacility:EU BellevueStart: 06-02-2023 End: 51-90-6988veqjwoduomToeft M. LueFacility:EU BellevueStart: 05-26-2023 End: 83-54-3549yoqyfrqqbfCktlt M. LueFacility:EU BellevueStart: 05-26-2023 End: 05-02-3907Fiziwmj encounter procedureKathy Flora. Lue [facility] [employer] start: 05-12-2023 End: 21-22-5617wlqcklqglqGkxsp M. LueFacility:EU BellevueStart: 05-12-2023 End: 53-65-1265Cuynazn encounter procedureKathy M. Lue [facility] start: 04-28-2023 End: 52-55-5336fenbrsuzsxIwbuz M. LueFacility:EU BellevueStart: 04-28-2023 End: 57-77-3287Qtxwaya encounter procedureKathy M. Lue [facility] start: 04-14-2023 End: 02-17-1312ayaasqpjesTzvws M. LueFacility:EU tart: 04-14-2023 End: 22-15-4434Xotkrqx encounter procedureKatchandan Borja. Carlos [facility] start: 03-31-2023 End: 46-71-2621jspzfuaerrWpedj M. LueFacility:EU BellevueStart: 03-31-2023 End: 97-04-0532Sfecldn encounter procedureKatchandan Gonzalez [facility] start: 03-29-2023 End: 24-61-2903xvbkjmfndvYwnjdn Braun Other [employer] Other Start: 90-35-1370Nvuldvmrx encounterMarcia WojciechOhio Valley Surgical Hospitaltart: 54-74-5042Bkodwmkyt encounterMarcia WojciechOhio Valley Surgical Hospitaltart: 03-17-2023 End: 26-56-2784dszgbrwcldNslxk MAbhinav VitalAshwintwo rivers psychiatric hospital [employer] Other Start: 03-17-2023 End: 42-74-9606Yebclww encounter procedureLety Gonzalez [facility] start: 03-03-2023 End: 07-33-0107Czswaeh encounter procedureKatchandan Borja. Carlos [facility] start: 02-24-2023 End: 80-45-8868Mcj Drop offKatchandan Borja. Carlos [facility] Start: 02-24-2023 End: 46-30-5048Numedlq encounter procedureLety Gonzalez [facility] [employer] start: 02-22-2023 End: 08-40-9649fenewlkyafFfhetr Braun Other [facility] [employer] Other Start: 37-32-5723Xcwksdjnm encounterLuis WojciechOhio Valley Surgical Hospitaltart: 02-17-2023 End: 77-78-1394Cjdapcb encounter procedureJENNIFER E JIMMY [facility] [employer] start: 02-03-2023 End: 53-33-3255Suoksod encounter procedureJENNSHABNAM E JIMMY [facility] [employer] start: 01-07-2023 End: 83-22-7988vakpyjfvybOerihd Braun Other [facility] [employer] Other Start: 46-28-1931Deawvglsv encounterLuis WojciechMiguel Angel [facility] Centertart: 01-06-2023 End: 50-83-7833Zrzifbd encounter procedureLety Gonzalez [facility] [employer] start: 12-23-2022 End: 02-42-7524Brxpjiz encounter procedureLety Gonzalez [facility] [employer] start: 40-50-3862Evnboi outpatient visit 15 minutes Luis Jeffrey Work Phone: [phone]-XtkwzPhillips [facility]-[place] 250 DO Work Phone: Start: 68-79-4580gwoohkagdjIocdpdm Yosi Facility:[id number]: 12-17-2022 End: 81-72-9280zgyxfpjifnDU LUIS Reddy JEFFREYcility:S0Gcufp: 12-09-2022 End: 92-45-8263skbperjjneFxyaoe Braun Other [employer] Other Start: 98-37-2680Hfbjky outpatient visit 15 minutes Luis Mukherjee [facility] Centertart: 12-09-2022 End: 57-38-6411Zqnuoxu encounter procedureLety Gonzalez [facility] start: 11-25-2022 End: 17-47-8258Czleyze encounter procedureLety Gonzalez [facility] start: 11-20-2022 End: 92-09-4852Une Drop offPajonny SILVEIRA [facility] Start: 11-20-2022 End: 15-53-7631Njwwuft encounter procedureLety Gonzalez [facility] start: 11-18-2022 End: 63-06-5969Stu Drop offKatchandan Vitale [facility] Start: 11-18-2022 End: 42-69-4269Jrxtrkg encounter procedureKatchandan MAbhinav Vitale [facility] start: 11-11-2022 End: 51-17-9154Funtwyv encounter procedureLety Gonzalez [facility] [employer] start: 10-28-2022 End: 69-82-3643Ldjpaje encounter procedureJENNIFER E JIMMY [facility] [employer] start: 57-83-4523xcrsayypomFkunfrj Yosi Facility:[id number]: 10-13-2022 End: 74-13-8153Joftkjr encounter procedureJENNIFER E JIMMY [facility] [employer] start: 09-29-2022 End: 60-28-8271Gjavflr encounter procedureJENNIFER E JIMMY [facility] [employer] start: 09-16-2022 End: 68-41-1490Nfcosok encounter procedureLety Gonzalez [facility] [employer] start: 09-09-2022 End: 47-06-9825Ozyvmeg encounter procedureLety Gonzalez [facility] [employer] start: 09-02-2022 End: 88-87-6458Pjrqpwv encounter procedureLety Gonzalez [facility] [employer] start: 08-19-2022 End: 57-74-5935Nykunup encounter procedureLety Gonzalez [facility] [employer] start: 26-70-4118Sf RenewalWilliam Yosi DO Work Phone: [phone]-Kcruk [facility] 250 DO Work Phone: Start: 08-04-2022 End: 78-38-7271tmkihomkmlKH SURJIT MARKER .Facility:E5Egpgk: 08-68-1060Hlljw health examinationMarcorwin Jeffrey Other [facility] [employer] Other Start: 38-57-5029Rdwjjzk, abnormal examinationMarcorwin Jeffrey Other [facility] [employer] Other Start: 07-29-2022 End: 89-02-3988jnuzcxwpfmZF LUIS JEFFREYFacility:D4Mxnjp: 07-08-2022 End: 44-55-5440Lxxukjq encounter procedureJENNIFER E JIMMY [facility] start: 38-40-1953Yf RenewalWilliam Yosi DO Work Phone: [phone]-Ybeec [facility] 250 DO Work Phone: Start: 06-10-2022 End: 35-00-1882Zccjipd encounter procedureLety Gonzalez [facility] start: 50-17-2893Xq RenewalWilliam Yosi DO Work Phone: [phone]-Nkxsu [facility] 250 DO Work Phone: Start: 05-13-2022 End: 05-36-5192nxjqmhtxtnMG MARCIA E BRAUNFacility:F0Fbgmc: 09-36-8483Ly Renewal Jacqueline Proctor PROFILE SAW SETUP OPERATOR-SOLAR PROJECT ENGINEER Work Phone: [phone]-Zbwkn [facility] 250 DO Work Phone: Start: 04-23-2022 End: 20-77-2285qkxyrqwiylAT CLAY EWING .Facility:V7Nmnxf: 04-15-2022 End: 39-07-6728khrjonhvwzJD MARCIA E BRAUNFacility:M3Ezzwa: 03-31-2022 End: 10-62-5365Cbnlnge encounter procedureVenkat Proctor Jr. [facility] start: 03-03-2022 End: 26-45-0513Sniqvwm encounter procedureVenkat Proctor Jr. [facility] start: 02-20-2022 End: 68-76-0043zzwfzvqxxkAJDougie JEFFREYFacility:R9Wbsik: 02-03-2022 End: 03-27-3211Psimitk encounter procedureVenkat Proctor Jr. [facility] start: 01-12-2022 End: 79-17-8748oeosxoigcaFTSWA D [facility]LEFacility:J9Eyffx: 01-06-2022 End: 08-62-7081Wuesqnh encounter Andre Proctor Jr. [facility] start: 12-09-2021 End: 07-04-5470Wtjdbys encounter procedureVenkat Proctor Jr. [facility] start: 95-84-6167Lioypvl encounter procedurePROVIDER UNKNOWNFacility:1532 Procedures DateProcedureProcedure DetailPerforming ClinicianStart: 56-06-4332Bhyc bld gluc mntr dev cleared fda spec home Rosalina Rodriguez MD Work Phone: Start: 07-28-2024 End: 09-79-5545Uyvgt of magnesiumAdrienne Rodriguez MD Work Phone: Start: 09-45-2822Nhsicurbhwrif metabolic panelEmmett SAAVEDRA-C Work Phone: Start: 48-39-4732Abjq bld gluc mntr dev cleared fda spec home useSiris Rodriguez MD Work Phone: Start: 79-53-6968Wpezsdgogxvdd metabolic panelEmmett SAAVEDRA-C Work Phone: Start: 93-43-2413Wstk bld gluc mntr dev cleared fda spec home Rosalina Rodriguez MD Work Phone: Start: 95-81-2698Ztlf bld gluc mntr dev cleared fda spec home Rosalina Rodriguez MD Work Phone: Start: 44-37-4277Ilhv bld gluc mntr dev cleared fda spec home Rosalina Rodriguez MD Work Phone: Start: 16-60-1603Touke of Tj Rodriguez MD Work Phone: Start: 53-64-3030Aktp bld gluc mntr dev cleared fda spec home Rosalina Rodriguez MD Work Phone: Start: 62-60-0642Abhxp dip stick/tablet rgnt auto w/o microscopyMadison Niko Mayfield PROFILE SAW SETUP OPERATOR-SOLAR PROJECT ENGINEER Work Phone: Start: 52-47-7858Ckpr bld gluc mntr dev cleared fda spec home Rosalina Rodriguez MD Work Phone: Start: 07-26-2024 End: 46-32-5835Tbkqxawohthst metabolic panelMepam SAAVEDRA-C Work Phone: Start: 29-03-0315Mjel bld gluc mntr dev cleared fda spec home Rosalina Rodriguez MD Work Phone: Start: 66-33-7803Safaoyiylf exam abdomen 1 Benita Gage MD Work Phone: Start: 07-25-2024 End: 18-06-7641Epkqlngezfgcg metabolic panelEmmett Sauer PA-C Work Phone: Start: 63-92-2759Khcs bld gluc mntr dev cleared fda spec home Rosalina Rodriguez MD Work Phone: Start: 50-39-6617Axosb of magnesiumSiris Rodriguez MD Work Phone: Start: 81-19-4321Yiwp bld gluc mntr dev cleared fda spec home Rosalina Rodriguez MD Work Phone: Start: 24-50-5139Fnd routine ecg w/least 12 lds trcg only w/o i&rMadison Niko Mayfield PROFILE SAW SETUP OPERATOR-SOLAR PROJECT ENGINEER Work Phone: Start: 27-28-4384Xnpwykczoa exam abdomen 1 Sepideh Ward DO Work Phone: Start: 37-44-7187Dxlk bld gluc mntr dev cleared fda spec home Rosalina Rodriguez MD Work Phone: Start: 01-04-5111Gvfqp metabolic panel calcium total Analisayo Ward DO Work Phone: Start: 21-34-5700Pazpygp function panelAnalisa Ward DO Work Phone: Start: 69-58-6164Pxnfubhjn for malignant neoplasm of prostateAna Rosacia Wojciech Other Start: 22-42-5205Xeqnuae examination of patientAna Rosacia Jeffrey Other Aortic stent (physical object)Lety Carlos ColonoscopyWidouglas Deluca DO Work Phone: Depression screeningLuis Jeffrey Other Great toe structure (body structure)Venkat Proctor Jr. History of percutaneous transluminal coronary angioplastyHistory of PTCAWilljoe Deluca DO Work Phone: Hyperlipidemia screeningAna Rosacia Wojciech Other Incision and drainage of cystWilliaflora Deluca DO Work Phone: Comment on above:of skin abcess hip on the right; Operative procedure on footGabino Deluca DO Work Phone: TonsillectomyVenkat Proctor Jr. Tonsillectomy and adenoidectomyGabino Deluca DO Work Phone: Plan of Treatment DateCare ActivityDetailAuthorStart: 07-13-2024 End: 58-45-4055Lakxdzb encounter procedureNOMS CI PODIATRYComment on above: Diabetes 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 polyneuropathy, unspecified whether terminal operations manager insulin use (CMS/HCC) (Primary Dx); Foot ulcer, right, with fat layer exposed (CMS/HCC); Foot ulcer, left, with fat layer exposed (CMS/HCC)Start: 07-06-2024 End: 90-55-7999Tnxncgs encounter procedureNOMS CI PODIATRYComment on above: Diabetes 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 polyneuropathy, unspecified whether long-term insulin use (CMS/HCC) (Primary Dx); Foot ulcer, right, with fat layer exposed (CMS/HCC)Start: 06-29-2024 End: 14-60-8401Ctvjuzb encounter gmzxrfaot44/24/2024 11:20 AM EDT Office Visit [facility] [address] [facility] [address] [place] [address] Gray Cancino DPM 04[address] [facility] [address] [place] [address] Diabetes 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 polyneuropathy, unspecified whether long-term insulin use (CMS/HCC) (Primary Dx); Foot ulcer, right, with fat layer exposed (CMS/HCC); Foot ulcer, left, with fat layer exposed (CMS/HCC)N[facility] CI PODIATRYComment on above:Diabetes 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 polyneuropathy, unspecified whether terminal operations manager insulin use (CMS/HCC) (Primary Dx); Foot ulcer, right, with fat layer exposed (CMS/HCC); Foot ulcer, left, with fat layer exposed (CMS/HCC)Start: 06-15-2024 End: 53-36-0759Pyxpakd encounter zgcquhbyp21/10/2024 1:50 PM EDT Office Visit [facility] 112 [facility] [address] [place] [id number] Gray Cancino DPM [address] [address] Diabetes 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 polyneuropathy, unspecified whether long-term insulin use (CMS/HCC) (Primary Dx); Foot ulcer, right, with fat layer exposed (CMS/HCC); Foot ulcer, left, with fat layer exposed (CMS/HCC); PVD (peripheral vascular disease) (CMS/HCC)N[facility] CI PODIATRYComment on above:Diabetes 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 polyneuropathy, unspecified whether long-term insulin use (CMS/HCC) (Primary Dx); Foot ulcer, right, with fat layer exposed (CMS/HCC); Foot ulcer, left, with fat layer exposed (CMS/HCC); PVD (peripheral vascular disease) (CMS/HCC)Start: 06-15-2024 End: 92-46-6852Beooifn encounter xaccfnifd78/10/2024 8:50 AM EDT Office Visit [facility] 112 [facility] [address] [place] [phone] Gray Cancino DPM [address] [address] [facility] PODIATRYStart: 06-08-2024 End: 55-61-1188Xcxsltt encounter procedureNOMS CI PODIATRYComment on above: Diabetes 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 polyneuropathy, unspecified whether long-term insulin use (CMS/HCC) (Primary Dx); Foot ulcer, right, with fat layer exposed (CMS/HCC)Start: 06-01-2024 End: 03-92-8400Smzlrkw encounter zcqygsrsw83/26/2024 9:00 AM EDT Office Visit [facility] [address] [address] Gray Cancino, TAYLERM [address] [address] Diabetes 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 polyneuropathy, unspecified whether terminal operations manager insulin use (CMS/HCC) (Primary Dx); Foot ulcer, right, with fat layer exposed (CMS/HCC); PVD (peripheral vascular disease) (CMS/HCC)[facility] CI PODIATRYComment on above:Diabetes 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 polyneuropathy, unspecified whether terminal operations manager insulin use (CMS/HCC) (Primary Dx); Foot ulcer, right, with fat layer exposed (CMS/HCC); PVD (peripheral vascular disease) (CMS/HCC)Start: 05-25-2024 End: 26-87-4514Eflihql encounter procedureNOMS CI PODIATRYComment on above: Diabetes 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 polyneuropathy, unspecified whether long-term insulin use (CMS/HCC) (Primary Dx); Foot ulcer, right, with fat layer exposed (CMS/HCC); PVD (peripheral vascular disease) (CMS/HCC)Start: 05-18-2024 End: 16-88-3530Zxbycvp encounter hronnjyyk43/12/2024 10:00 AM EDT [facility] Visit [facility] [address] [phone] Gray Cancino, JAIME [address] [address] [facility] CI PODIATRYStart: 05-11-2024 End: 49-09-1778Xhjsqlg encounter vpsnpkwib49/05/2024 10:10 AM EDT Office Visit [facility] 112 [facility] [address] [place] [address] Gray Cancino, DPM [address] [address] [facility] CI PODIATRYStart: 56-93-9663Uwvnohygj vaccination Influenza Vaccine (#1)[facility] HealthcareStart: 05-04-2024 End: 39-20-0110Daivflk encounter joumoeasy08/29/2024 10:20 AM EDT Office Visit [facility] [address] [facility] [address] [place] [address] Gray Cancino, DPM [address] [address] ArrivedNOMS CI PODIATRYComment on above:ArrivedStart: 64-77-9173Oinuyir [facility] Work Phone: Start: 64-42-1563Paryhad [facility] Work Phone: Start: 48-72-5049WDJ, Provider: Jacqueline Ku, Status: Pen, Time: 10:00 AMFUV, Provider: Jacqueline Ku, Status: Pen, Time: 10:00 AMSh[facility] 250 DO Work Phone: Start: 39-46-8379Lzkylgf [facility] Work Phone: Start: 42-95-8280SEI, Provider: Gabino Deluca, Status: Mckinley, Time: 9:30 AMFUV, Provider: Gabino Deluca, Status: Pen, Time: 9:30 AMSh[facility] 250 DO Work Phone: Start: 63-37-1250OEL, Provider: Gabino Deluca, Status: Pen, Time: 10:30 AMFUV, Provider: Gabino Deluca, Status: Mckinley, Time: 10:30 AMMP-[facility] 250 DO Work Phone: Start: 46-84-9377Qwgzygsou for malignant neoplasm of [facility] (HulmboldtAnkle brachial pressure indexAdena Health SystemComprehenve metabolic 1999 panel - Serum or PlasmaAdena Health SystemComprehenve metabolic 1999 panel - Serum or PlasmaAdena Health SystemPatient referralChildren'S Hospital For Rehabilitation Work Phone: us Lower extremity vein - bilateralAdena Health SystemUS.doppler Lower extremity arteryVascular US lower extremity arterial Doppler complete Vascular Ultrasound Routine PVD (peripheral vascular disease) (CMS/HCC) Ordered: 05/04/2024[facility] Work Phone: Comment on above:Ordered: 05/04/2024[facility] Immunizations Immunization DateImmunizationNotesCare RkaureekAsrjuvhd48-79-7969Sjtzhi-FnzUHgrz COVID-19 Vacc 30 MCG/0.3ML Intramuscular SuspensionWilliam Yosi DO Work Phone: [facility] on above:Result Comment: 2022-05-27: BKM2203-60-8669Siycpq- [employer] COVID-19 Vacc 30 MCG/0.3ML Intramuscular SuspensionWilliam Yosi DO Work Phone: [facility] on above:Result Comment: 2022-05-27: BDR3738-75-4643Jglssm- [employer] COVID-19 Vacc 30 MCG/0.3ML Intramuscular SuspensionWilliam Yosi DO Work Phone: [facility] on above:Result Comment: 2022-05-27: SWI43PZWNGLV: Highlighted row has not occurred!66-51-4932mfahxzbau virus vaccine, unspecified formulation Lety Gonzalez [facility] Payers DatePayer CategoryPayerPolicy [id number] [id number] Health Insurance [id number] Health Insurance [id number]-ndc [id number]74030866052-43-0806 Qrxmzct05745663 2.0.1.434333.3.579.2.97164-40-5332Vukfhfl8591662 2.0.1.983648.3.579.2.78581-85-4860Mpxewoo9042194 2.0.1.635538.3.579.2.48326-80-9110Hlhetuq3035805 2.0.1.798034.3.579.2.62881-70-0848Bhrbjmf4669616 2.0.1.443883.3.579.2.24053-55-6992Mtifpwg5143023 2.840.1.197347.3.579.2.07772-31-9624Kecjuna4422701 2.840.1.712535.3.579.2.99087-85-8303Hqnekla7400218 2.840.1.422998.3.579.2.93258-33-8277Xgddfxy4486805 2.16.840.1.338880.3.579.2.84084-10-9999Liwykvn170536746 2.16.840.1.245365.3.579.2.64249-70-1044Zzvbqlv944229183 2.16.840.1.157121.3.579.2.00970-84-5508Vtjilhw42869486 2.16.840.1.493501.3.579.2.08577-26-9912Uxiuonf74987136 2.16.840.1.052659.3.579.2.33992-92-3500Oqudrfw24330375 2.16.840.1.932357.3.579.2.17305-54-3657Cqeklbe35837479 2.16.840.1.065857.3.579.2.13745-84-6726Izfsvxe96188850 2.16.840.1.521966.3.579.2.51710-11-0699Vhtdbil72409950 2.16.840.1.619001.3.579.2.82190-39-2757Jqamaqz09060046 2.16.840.1.048763.3.579.2.69869-01-5889Npjfnpr31372160 2.16.840.1.509911.3.579.2.58252-05-7681Acugocg59555885 2.16.840.1.020239.3.579.2.43430-80-1296Gmmhddb97121587 2.16.840.1.634470.3.579.2.59639-77-1884Fxvcbig75976862 2.16.840.1.511365.3.579.2.36722-58-6504Bopelky81718117 2.16.840.1.860392.3.579.2.46215-40-8880Fbvulzb00700705 2.16.840.1.869399.3.579.2.74921-62-4606Hpptwnv36394097 2.16.840.1.932315.3.579.2.46166-12-2829Xeahicg95130506 2.16.840.1.365499.3.579.2.26179-26-9471Kvrpggu60715848 2.16.840.1.934079.3.579.2.58416-04-6146Fuftlds73941263 2..840.1.250313.3.579.2.88860-82-8010Nmrsdlj52690658 2.840.1.292930.3.579.2.27604-34-7564Vkciaeg44544198 2.840.1.433570.3.579.2.88801-33-6745Bbjotxb61295943 2.840.1.424209.3.579.2.14128-81-1450Fvfxfba67264053 2..840.1.672026.3.579.2.71595-12-7156Unbklby55423006 2.840.1.035506.3.579.2.66216-14-6102Ehacbct54615638 2..840.1.799737.3.579.2.08682-21-8514Kdjqqdz52116288 2..840.1.767736.3.579.2.54646-28-8444Gndtcgl64354805 2.16.840.1.467627.3.579.2.07686-50-2730Mbjsidz46793740 2.840.1.886073.3.579.2.38781-63-7497Xkmgaup57698104 2.16.840.1.932315.3.579.2.82445-30-5961Zuemzft89348999 2.16.840.1.582866.3.579.2.22050-64-9388Qduosuf38288136 2.16.840.1.529228.3.579.2.12882-77-3595Gjuisnk29112194 2.16.840.1.441766.3.579.2.12953-93-4627Leuwinb08484439 2.16.840.1.951958.3.579.2.29382-59-2091Sylnqcb3329060 2.16840.1.574363.3.579.2.292006-34-3010Itwoxrn3161681 2.840.1.339733.3.579.2.006955-46-7109Tpnjxtq8838642 2..840.1.744765.3.579.2.739591-07-7557Lkapojp4217321 2..840.1.883874.3.579.2.367221-84-1630Fbbwqof2133978 2.840.1.685265.3.579.2.692566-00-5128Entlhem1612839 2..840.1.910577.3.579.2.970167-71-6223Zuhqvgz0811403 2.16.840.1.720857.3.579.2.483465-71-8592Tkjjwfd5070341 2.16.840.1.643064.3.579.2.707839-88-8757Mlgzpaa1038054 2.16840.1.523985.3.579.2.466264-30-4447Azsczcn6541745 2.16.840.1.195291.3.579.2.096322-83-0072Buvjlir10708142 2.16.840.1.903560.3.579.2.904646-20-8021Ammhlgb74692463 2.16.840.1.512763.3.579.2.418854-54-3087Ibyqzra87701579 2.16.840.1.160517.3.579.2.972499-80-8885Jhojorv40053661 2.16.840.1.738162.3.579.2.679955-02-7233Aracgwq49994201 2.16.840.1.847530.3.579.2.40308-49-6202Nqydqgt62194267 2..840.1.706983.3.579.2.54443-16-3915Lxitiuz94777773 2.16.840.1.891931.3.579.2.87707-33-9616Gnczrxi12192085 2.16.840.1.532129.3.579.2.21518-22-9056Eduxkth72671616 2.16.840.1.182269.3.579.2.14972-37-3801Hmtfgpj93896043 2.16.840.1.001686.3.579.2.24840-01-8059Hmvxomh13475394 2.16.840.1.691988.3.579.2.68631-53-8371Kjeebkj93476400 2.16.840.1.139090.3.579.2.75962-13-6120Bdptmgv05617759 2.16.840.1.955482.3.579.2.76274-69-0126Yqgfoxd68288560 2.16.840.1.940444.3.579.2.08390-12-8169Nzuyxjz26841410 2.16.840.1.045134.3.579.2.29107-77-4405Zasddpe18618948 2.16.840.1.566298.3.579.2.07806-41-9162Unmbdjp34523106 2.16.840.1.233152.3.579.2.36190-79-8557Vabkujj30559633 2.16.840.1.968335.3.579.2.53091-36-7752Cvvfmry56964910 2.16.840.1.115975.3.579.2.87088-86-7221Llwwiau80774828 2..840.1.956052.3.579.2.30593-77-5740Rpispkg50218956 2.16.840.1.022844.3.579.2.48038-69-6717Rjflfuf76901721 2.16.840.1.556688.3.579.2.28791-81-7212Khuhmjt71608199 2.16.840.1.535519.3.579.2.38179-09-7464Apiiptj32012830 2.16.840.1.804187.3.579.2.00250-71-3007Jdrortl83093694 2.16.840.1.284915.3.579.2.85294-66-9864Mhbvmfj47660357 2.16.840.1.792987.3.579.2.59812-54-5098Ddnkcvl46900720 2.16.840.1.870863.3.579.2.27086-92-6687Iroelbu79690353 2.16.840.1.995567.3.579.2.15316-23-7017Gzzitjx50092195 2.16.840.1.053478.3.579.2.39877-27-5907Cxeakqy98295768 2.16.840.1.401896.3.579.2.99127-49-0188Cvaqlho25136910 2.16.840.1.617008.3.579.2.52101-45-7155Cxxcuis00489119 2.16.840.1.908300.3.579.2.02440-34-3999Zsefuwf32119039 2.16.840.1.721275.3.579.2.26761-98-7487Araozub94868039 2.16.840.1.472524.3.579.2.07629-57-1667Ztvqtve51430133 2.16.840.1.013873.3.579.2.69621-19-5599Pzuucfo47140631 2.16.840.1.574700.3.579.2.28149-21-6556Dowztxc35710524 2.16.840.1.684042.3.579.2.05953-13-2394Yvgfduk57841938 2.16.840.1.810298.3.579.2.08702-23-5712Nbzpnzs30444535 2.16.840.1.186622.3.579.2.24846-25-9184Jshfiib80357008 2.16.840.1.141745.3.579.2.21315-95-1663Vyxhtkf02081606 2.16.840.1.392460.3.579.2.35542-39-9009Cqvhbjo63180785 2.16.840.1.496580.3.579.2.32434-45-2959Evuowpy67241227 2.16.840.1.628886.3.579.2.53734-76-8239Ktvvxab80535915 2.16.840.1.726214.3.579.2.05415-48-3953Rcsrhnd37910488 2.16.840.1.748156.3.579.2.81631-22-2655Uzvvhjr93853258 2.16.840.1.419390.3.579.2.96907-68-9383Lzjohuw78153203 2.16.840.1.200414.3.579.2.88405-35-9817Gvuxoeb89172072 2.16.840.1.509831.3.579.2.12035-25-7963Xjyaidp44015593 2.16.840.1.067847.3.579.2.81688-48-2433Xwamfsy46684521 2..840.1.512489.3.579.2.35745-94-1883Cbsrtnh43004814 2..840.1.969762.3.579.2.04784-95-0810Tyxrvja697899147Owkjsvf Health Insurance [facility] [id number] [facility] [id number] [id number]-wq33-3k7b-d187-yiks3hq414ha Social History DateTypeDetailFacilityStart: 07-03-2021 End: 97-21-2840Dashguu smoking statusEx-smoker (finding)[facility] start: 06-01-2024 End: 45-35-1892Ymm [facility] start: 05-04-2024 End: 53-44-4360Qeywphsg useCaffeine useSt. [facility] 250 DO Work Phone: Comment on above:coffee all day long;quit 2012 1ppd; Tobacco smoking statusNeverExecutive Urology of [facility] Centertart: 01-67-4135Hhg Assigned At [facility] Hospitaltart: 61-03-4526Iwfpkpe of tobacco useCurrent smokerNOMS HealthcareStart: 08-14-3424Fdrqdlw of tobacco useCigarette SmokerNOMS HealthcareStart: 82-35-7125Xhlnndr use and exposureSmokeless tobacco non-userNOMS Healthcare Start: 05-25-2024 End: 03-66-3712Vhqyndxoa beverage intakeDeferNOMS HealthcareStart: 23-25-2660Pzs assigned at birthNot on fileNOMS HealthcareTobacco smoking status NHISTobacco smoking consumption unknownNOMS HealthcareHas the electric, gas, oil, or water company threatened to shut off services in your home in past 12[facility] Yozio SystemStart: 09-20-2017 End: 31-66-8194EljAmdk (finding)[facility] Yozio SystemSexual Orientation [facility] Medical Equipment Procedure CodeEquipment CodeEquipment Original TextEquipment IdentifierDates Start: 02-62-2132Nyzvvjg (Freestyle Lancets) 28 gauge miscStart: 11-16-2023 Lancets (Freestyle Lancets) 28 gauge miscStart: 11-16-2023 End: 11-98-5148Cclzqwp (Freestyle Lancets) 28 gauge miscStart: 16-37-8266Bvdhavf (Freestyle Lancets) 28 gauge miscStart: 11-16-2023 End: 32-19-3749Olrfauj (Freestyle Lancets) 28 gauge miscStart: 03-17-4738Mhhztpr (Freestyle Lancets) 28 gauge miscStart: 11-16-2023 End: 88-06-4383Gqosmwu (Freestyle Lancets) 28 gauge miscStart: 43-64-9900Mtzyegi (Freestyle Lancets) 28 gauge miscStart: 11-16-2023 End: 49-95-4594Gwdnaxp (Freestyle Lancets) 28 gauge miscStart: 72-24-5084Hbfitym (Freestyle Lancets) 28 gauge miscStart: 11-16-2023 End: 36-57-3311Rspnm Sugar Diagnostic stripStart: 68-95-3761Ylals Sugar Diagnostic stripStart: 61-82-5072Rhhpkuw (Freestyle Lancets) 28 gauge miscStart: 08-66-0746Uocjvle (Freestyle Lancets) 28 gauge miscStart: 11-16-2023 End: 52-05-7844Vtbok Sugar Diagnostic stripStart: 44-39-7096Yrhga Sugar Diagnostic stripStart: 89-74-0584Mlnoeuq (Freestyle Lancets) 28 gauge miscStart: 72-13-1536Sswossr (Freestyle Lancets) 28 gauge miscStart: 11-16-2023 End: 11-16-2023 Functional Status BpkuRnyvqlrpijOvtgpdVdtdkxnk65-74-7318Qeqzrtnsfo StatusN/AExec[facility]07-03-2024Functional StatusN/A[facility]01-10-2024Functional StatusN/A [facility]06-28-2023Functional StatusNo[facility]03-22-2023 Functional StatusN/A[facility] [id number] StatusN/A[facility]12-14-2022Functional StatusN/A[facility] Clinical Notes 05-27-2022 to 05-02-2025 Note Date & [id number] Hospital Discharge instructions Patient Education 05/02/2025 11:59:48 Hypogonadism, Male Hypogonadism, Male Male hypogonadism is [...] older. This is the main cause of thiscondition. Use of medicines, such as antidepressants, steroids, [...] therapy. Follow these instructions at home: Take jpkt-sbn-uisuqlh and prescription medicines only as told by [...] for prostate cancer before putting you on testosteronetherapy. This information is not intended to replace advice given to you by your health care provider. Make sure you discuss any questions you have with your health care provider. Document Revised: 04/24/2021 Document Reviewed: 04/24/2021 [employer] Patient Education 2023 [employer]. Follow Up Care 10/26/2024 10:10:57 With:Carlos LIZAMA, SHAYY Hernandes, URO Address: When: Unknown [facility] 08-27-2025 NotePatient Education Urology Hypogonadism, Male Male hypogonadism is [...] Follow these instructions at home: ??? Take srhj-uno-xixyfuc and prescription medicines only as told by your health care provider. ??? Eat foods that are high in fiber, such as beans, whole grains, and fresh fruits and vegetables.Limit foods that are high in fat and [...] sure you discuss any (more content not included)...[facility]02-20-2025 Hospital Discharge instructions Patient Education 10/26/2024 09:58:58 [...] older. This is the main cause of thiscondition. Use of medicines, such as antidepressants, steroids, [...] therapy. Follow these instructions at home: Take bpwj-bno-wnmstih and prescription medicines only as told by [...] for prostate cancer before putting you on testosteronetherapy. This information is not intended to replace advice given to you by your health care provider. Make sure you discuss any questions you have with your health care provider. Document Revised: 04/24/2021 Document Reviewed: 04/24/2021 [employer] Patient Education 2023 [employer]. Follow Up Care 10/25/2024 12:29:07 With:Carlos LIZAMA, SHAYY Hernandes, URO Address: When: Unknown [facility] 02-20-2025 NotePatient Education Urology Hypogonadism, Male Male hypogonadism is [...] Follow these instructions at home: ??? Take lxgt-irk-argdvrd and prescription medicines only as told by your health care provider. ??? Eat foods that are high in fiber, such as beans, whole grains, and fresh fruits and vegetables.Limit foods that are high in fat and [...] sure you discuss any (more content not included)...[facility]01-03-2025 Evaluation + Plan note Future Scheduled Tests Laboratory* Testosterone Level Total 09/08/24 [facility] 11-22-2024 Plan of care note* Plan of Care - Francisca Mcfadden LPN - 07/28/2024 2:45 PM EST Problem: Pain Goal: Patient goal is pain score less than 4, able to rest, and participant in treatment plan as appropriate Description: INTERVENTIONS: 1. Encourage patient or legal sales representative trainee to report early pain and ask for [...] per policy 9. Teach patient or legal sales representative trainee interventions for comforting Outcome: Adequate for Discharge [...] at the bedside 7. Instruct patient/ patient sales representative trainee about use of safety devices 8. Include patient/ patient sales representative trainee in decisions related to safety Outcome: Adequate [...] hygiene technique 7. Identify and instruct patient/patient sales representative trainee in use of appropriate isolation precautionsfor identified infection/symptoms 8. Provide and discuss with patient/patient sales representative trainee on educational MDRO sheet 9. Encourage and monitor nutritional status daily and consult rag collector if indicated 10. Implement neutropenic guidelines as needed 11. Review exposure to history of communicable disease and recent travel history on admission 12. Encourage annual influenza vaccine 13. Encourage pneumonia vaccine Outcome: Adequate for Discharge Problem: Knowledge Deficit Goal: Patient/patient sales representative trainee demonstrates understanding of disease process, treatment plan,medications, and discharge instructions Description: INTERVENTIONS 1. Complete [...] of 0 - 24 or indicated by [facility] Assessment Goal: Patient should be free from fall Description: Interventions: 1. [place] to environment 2. Hourly rounds addressing the [...] non-skid footwear 11. Teach patient and patient sales representative trainee to maintain environment for safety and engage [...] supplement as ordered 13. Collaborate with clinical rag collector 14. Include patient/ patient's sales representative trainee in decisions related to nutrition Outcome: Adequate [...] Score of =/> 25 or indicated by [facility] Assessment Goal: Patient should be free from fall Description: Interventions: 1. [place] to environment 2. Hourly rounds addressing the [...] non-skid footwear 11. Teach patient and patient sales representative trainee to maintain environment for safety and engage [...] (cane, walker) within reach 19. Request patient sales representative trainee bring adaptive equipment/mobility aids from home or obtain and provide as needed 20. Consult pharmacy regarding effects of med's affecting mobility, cognition, and alternatives 21. Obtain physician order for PT if risk factors associated with mobility are present 22. Obtain physician order for OT as appropriate 23. Utilize diversional activities 24. Educate patient and patient sales representative trainee how to maintain a safe environment during visitationtimes (notify nurse prior to leaving bedside) 25. Consider appropriateness of medical or non-medical librarian 26. Set up voiding schedule as appropriate [...] discharge planning process 5. Communicate referral to art educator as appropriate 6. Communicate referral to rag collector as appropriate 7. Collaborate with case management/drug abuse social worker for discharge needs Outcome: Adequate for Discharge [facility]11-22-2024 Miscellaneous Notes* Plan of Care - Francisca Mcfadden LPN - 07/28/2024 2:45 PM EST Problem: Pain Goal: Patient goal is pain score less than 4, able to rest, and participant in treatment plan as appropriate Description: INTERVENTIONS: 1. Encourage patient or legal sales representative trainee to report early pain and ask for [...] per policy 9. Teach patient or legal sales representative trainee interventions for comforting Outcome: Adequate for Discharge [...] at the bedside 7. Instruct patient/ patient sales representative trainee about use of safety devices 8. Include patient/ patient sales representative trainee in decisions related to safety Outcome: Adequate [...] hygiene technique 7. Identify and instruct patient/patient sales representative trainee in use of appropriate isolation precautionsfor identified infection/symptoms 8. Provide and discuss with patient/patient sales representative trainee on educational MDRO sheet 9. Encourage and monitor nutritional status daily and consult rag collector if indicated 10. Implement neutropenic guidelines as needed 11. Review exposure to history of communicable disease and recent travel history on admission 12. Encourage annual influenza vaccine 13. Encourage pneumonia vaccine Outcome: Adequate for Discharge Problem: Knowledge Deficit Goal: Patient/patient sales representative trainee demonstrates understanding of disease process, treatment plan,medications, and discharge instructions Description: INTERVENTIONS 1. Complete [...] of 0 - 24 or indicated by [facility] Assessment Goal: Patient should be free from fall Description: Interventions: 1. [place] to environment 2. Hourly rounds addressing the [...] non-skid footwear 11. Teach patient and patient sales representative trainee to maintain environment for safety and engage [...] supplement as ordered 13. Collaborate with clinical rag collector 14. Include patient/ patient's sales representative trainee in decisions related to nutrition Outcome: Adequate [...] Moderate - High Risk Fall Score Description: [place] Fall Score of =/> 25 or indicated by [facility] Assessment Goal: Patient should be free from fall Description: Interventions: 1. [place] to environment 2. Hourly rounds addressing the [...] non-skid footwear 11. Teach patient and patient sales representative trainee to maintain environment for safety and engage [...] (cane, walker) within reach 19. Request patient sales representative trainee bring adaptive equipment/mobility aids from home or obtain and provide as needed 20. Consult pharmacy regarding effects of med's affecting mobility, cognition, and alternatives 21. Obtain physician order for PT if risk factors associated with mobility are present 22. Obtain physician order for OT as appropriate 23. Utilize diversional activities 24. Educate patient and patient sales representative trainee how to maintain a safe environment during visitationtimes (notify nurse prior to leaving bedside) 25. Consider appropriateness of medical or non-medical librarian 26. Set up voiding schedule as appropriate [...] discharge planning process 5. Communicate referral to art educator as appropriate 6. Communicate referral to rag collector as appropriate 7. Collaborate with case management/drug abuse social worker for discharge needs Outcome: Adequate for Discharge * Discharge Planning Note - SEMAJ Moss - 07/28/2024 2:23 PM EST DISCHARGE PLANNING NOTE Sw reviewed pts chart and discharge is written. No needs for discharge. - SEMAJ Moss 07/28/24 2:23 PM * Plan of Care - Erwin Starkey RN - 07/28/2024 12:02 AM EST Problem: Pain Goal: Patient goal is pain score less than 4, able to rest, and participant in treatment plan as appropriate Description: INTERVENTIONS: 1. Encourage patient or legal sales representative trainee to report early pain and ask for [...] per policy 9. Teach patient or legal sales representative trainee interventions for comforting Outcome: Progressing Note: Evaluation of progress towards goal: Patient encouraged to report pain early. * Plan of Care - Blaire Aldana LPN - 07/27/2024 6:23 PM EST Problem: Safety Goal: Patient will be injury free during hospitalization Description: INTERVENTIONS: 1. Assess patient's risk for falls and implement fall prevention plan of care per policy 2. Provide and maintain a safe environment 3. Proper use of double Identifiers 4. Medication administration using the 5 rights 5. Hand hygiene 6. Specimens are labeled at the bedside 7. Instruct patient/ patient sales representative trainee about use of safety devices 8. Include patient/ patient sales representative trainee in decisions related to safety Outcome: Progressing Note: Evaluation of progress towards goal: call light within reach and bed in lowest position * Query Response - NOLAN Araiza - 07/27/2024 7:00 AM EST Query Response Note AUTOMATED QUERY TEXT: Type [...] signed by: Stephanie FRANCISCO 07/27/2024 6:57 AM * Plan of Care - Luis Pope RN - 07/27/2024 4:44 AM EST Problem: Pain Goal: Patient goal is pain score less than 4, able to rest, and participant in treatment plan as appropriate Description: INTERVENTIONS: 1. Encourage patient or legal sales representative trainee to report early pain and ask for [...] per policy 9. Teach patient or legal sales representative trainee interventions for comforting Outcome: Progressing Note: Evaluation of progress towards goal: Patient denies pain at this time and is sleeping comfortably in bed. * Discharge Planning Note - Beatrice Montoya RN - 07/26/2024 4:24 PM EST DISCHARGE PLANNING NOTE Chart reviewed and case discussed in daily transition rounds this AM. Pt currently holds a 11.4% readmission risk.Per RN, NG tube out and pt tolerating clear liq diet. Ant possible d/c tomorrow. No needs anticipated. CN will continue to follow and is available should any further needs arise. * Plan of Care - Blaire Aldana LPN - 07/26/2024 10:53 AM EST Problem: Infection Goal: Absence of infection during [...] hygiene technique 7. Identify and instruct patient/patient sales representative trainee in use of appropriate isolation precautionsfor identified infection/symptoms 8. Provide and discuss with patient/patient sales representative trainee on educational MDRO sheet 9. Encourage and monitor nutritional status daily and consult rag collector if indicated 10. Implement neutropenic guidelines as needed 11. Review exposure to history of communicable disease and recent travel history on admission 12. Encourage annual influenza vaccine 13. Encourage pneumonia vaccine Outcome: Progressing Note: Evaluation of progress towards goal: vital signs and labs are monitored each shift * Plan of Care - Luis Pope RN - 07/26/2024 3:26 AM EST Problem: Pain Goal: Patient goal is pain score less than 4, able to rest, and participant in treatment plan as appropriate Description: INTERVENTIONS: 1. Encourage patient or legal sales representative trainee to report early pain and ask for [...] per policy 9. Teach patient or legal sales representative trainee interventions for comforting Outcome: Progressing Note: Evaluation [...] at the bedside 7. Instruct patient/ patient sales representative trainee about use of safety devices 8. Include patient/ patient sales representative trainee in decisions related to safety Outcome: Progressing [...] patient to go home with her . * Plan of Care - Blaire Aldana LPN - 07/25/2024 6:24 PM EST Problem: Discharge Planning Goal: Discharge to post-acute [...] goal: pt will be d/c to SNF * Ramiro of Care - Luis Pope RN - 07/25/2024 2:21 AM EST Problem: Pain Goal: Patient goal is pain score less than 4, able to rest, and participant in treatment plan as appropriate Description: INTERVENTIONS: 1. Encourage patient or legal sales representative trainee to report early pain and ask for [...] per policy 9. Teach patient or legal sales representative trainee interventions for comforting Outcome: Progressing Note: Evaluation of progress towards goal: Patient denies pain at this time and NG hooked up to [facility]. * Plan of Care - Alka Bird RN - 07/24/2024 5:25 PM EST Problem: Pain Goal: Patient goal is pain score less than 4, able to rest, and participant in treatment plan as appropriate Description: INTERVENTIONS: 1. Encourage patient or legal sales representative trainee to report early pain and ask for [...] per policy 9. Teach patient or legal sales representative trainee interventions for comforting Outcome: Progressing Note: Evaluation of progress towards goal: Pain well managed with dilaudidcurtist to [facility]. Problem: Safety Goal: Patient will be injury free during hospitalization Description: INTERVENTIONS: 1. Assess patient's risk for falls and implement fall prevention plan of care per policy 2. Provide and maintain a safe environment 3. Proper use of double Identifiers 4. Medication administration using the 5 rights 5. Hand hygiene 6. Specimens are labeled at the bedside 7. Instruct patient/ patient sales representative trainee about use of safety devices 8. Include patient/ patient sales representative trainee in decisions related to safety Outcome: Progressing [...] hygiene technique 7. Identify and instruct patient/patient sales representative trainee in use of appropriate isolation precautionsfor identified infection/symptoms 8. Provide and discuss with patient/patient sales representative trainee on educational MDRO sheet 9. Encourage and monitor nutritional status daily and consult rag collector if indicated 10. Implement neutropenic guidelines as needed 11. Review exposure to history of communicable disease and recent travel history on admission 12. Encourage annual influenza vaccine 13. Encourage pneumonia vaccine Outcome: Progressing Note: Evaluation of progress towards goal: WBC count elevated on admission. Afebrile this shift. Will continue to monitor. Problem: Knowledge Deficit Goal: Patient/patient sales representative trainee demonstrates understanding of disease process, treatment plan,medications, and discharge instructions Description: INTERVENTIONS 1. Complete [...] to return home at discharge with spouse. * PT/OT/CARGO SERVICES COORDINATOR - Jemima Proctor PT - 07/24/2024 9:32 AM EST Physical Therapy PT Type of Visit: (Per RN, pt is independent with mobility & has no PT needs. Will discontinue PT order at this time.) * PT/OT/CARGO SERVICES COORDINATOR - Emily Vidales OTR/L - 07/24/2024 9:28 AM EST Occupational Therapy OT Type of Visit: Discharge from Therapy (Per RN report, pt is indep with ADLs and functional mobility. No acute OT needs identified. Will discontinue OT order at this time.) * Discharge Planning Note - Alaina Slaughter LCSW - 07/24/2024 9:18 AM EST DISCHARGE PLANNING NOTE Sales Marketing met with patient, introduced self, and explained role. Patient educated on safe discharge plan. Pt admitted 07/24/2024 with Small bowel obstruction (CMS-HCC) [K56.609] Small bowel obstruction (CMS-HCC) [K56.609] per chart review. Pt is listed in [facility] as a 5% risk forre-admission. Pt reports that he is from the [facility]. Confirms that he does have health insurance. [...] primary care provider on file. Pharmacy: [facility] [place] PCP and pharmacy confirmed with patient. CN [...] - Alaina Slaughter LCSW 07/24/24 9:19 AM * Plan of Care - Luis Pope RN - 07/24/2024 3:31 AM EST Problem: Pain Goal: Patient goal is pain score less than 4, able to rest, and participant in treatment plan as appropriate Description: INTERVENTIONS: 1. Encourage patient or legal sales representative trainee to report early pain and ask for [...] per policy 9. Teach patient or legal sales representative trainee interventions for comforting Outcome: Progressing Note: Evaluation of progress towards goal: Patient rates pain a 10/10. PRN pain medications requested from CAN CLOSING MACHINE OPERATOR food concession manager Problem: Safety Goal: Patient will be injury free during hospitalization Description: INTERVENTIONS: 1. Assess patient's risk for falls and implement fall prevention plan of care per policy 2. Provide and maintain a safe environment 3. Proper use of double Identifiers 4. Medication administration using the 5 rights 5. Hand hygiene 6. Specimens are labeled at the bedside 7. Instruct patient/ patient sales representative trainee about use of safety devices 8. Include patient/ patient sales representative trainee in decisions related to safety Outcome: Progressing Note: Evaluation of progress towards goal: Patient is independent, bed in low position, bed locked,call light within reach and patient educated on [...] hygiene technique 7. Identify and instruct patient/patient sales representative trainee in use of appropriate isolation precautionsfor identified infection/symptoms 8. Provide and discuss with patient/patient sales representative trainee on educational MDRO sheet 9. Encourage and monitor nutritional status daily and consult rag collector if indicated 10. Implement neutropenic guidelines as [...] of 0 - 24 or indicated by [facility] Assessment Goal: Patient should be free from fall Description: Interventions: 1. [place] to environment 2. Hourly rounds addressing the [...] non-skid footwear 11. Teach patient and patient sales representative trainee to maintain environment for safety and engage in all aspects of fall prevention program Outcome: Progressing Note: Evaluation of progress towards goal: Patient is independent from home, steady gait with good balance. Low risk for falls, but still educated on importance of calling out for help to prevent falls. documented in this [facility] Progress note* Discharge Planning Note - SEMAJ Moss - 07/28/2024 2:23 PM EST DISCHARGE PLANNING NOTE Sw reviewed pts chart and discharge is written. No needs for discharge. - SEMAJ Moss 07/28/24 2:23 PM [facility]11-22-2024 Hospital course Narrative* Vaibhav Slater MD - 07/28/2024 12:07 PM EST Images from the original note were not included. [facility] INTER[facility] - 6 CARD TELE/INTERMEDIATE [address] [facility] [id number] Hospital Medicine Discharge Summary Patient: Johnathan Correa Date of : 1960 Room: [facility] Encounter date: 07/28/24 DATE OF ADMISSION: 07/24/2024 DATE OF DISCHARGE:07/28/2024 DISCHARGE DIAGNOSES Principal Problem: Small bowel obstruction (CMS-HCC) Active Problems: JAM (obstructive sleep apnea) Hypertension DM2 (diabetes mellitus, type 2) ([facility]) CAD (coronary artery disease) [facility] General Surgery PCP: No primary care provider on file. PROCEDURES None HOSPITAL COURSE SUMMARY Johnathan Stewart is a 63 y.o. male who presents with abdominal pain and nausea that started at 3:00 PMthis afternoon. He reported a normal bowel movement the day prior and denied any history of abdominal surgery. He was seen at [facility] ED, and work up was completed with labs overall unremarkable butcreatinine 1.[address] abd/pelvis showed prominent gas and fluid filled distended small willam wel loops appear to show gradual tapering to normal caliber distally, with no transition point identified, favoring severe small bowel ileus over partial distal small bowel obstruction. ED attending spoke with Dr. Ferrara regarding the patient who recommended patient be admitted to [facility] tosee the surgery team here. An NG tube was placed after discussion with general surgery prior to transfer. On arrival to [facility], he is having 10/10 abdominal pain and [...] diabetic therapy in place of Mounjaro to bedetermined by PCP. Hypertension / HLD / CAD - remote history of stents Carvedilol, lisinopril, amlodipine Obstructive sleep apnea Noncompliant with CPAP GERD Protonix Depression Celexa Discharge Day Progress Note 07/28/24 Patient was seen and examined at bedside today. No events reported overnight. Hemodynamically stable. Review of Systems Constitutional: Positive for appetite change (good appetite). Negative for activity change, chills,diaphoresis, fatigue and fever. Respiratory: Negative for cough, [...] Findings: AP supine view of the abdomen. Gas- filled dilated bowel loops are seen suggestive of [...] 7AM-7PM (all facilities): Miguelito or sean through [facility]. 7PM-7AM ([facility], [facility] Psychiatry and Inpatient Rehab): Miguelito or sean, [phone]. 7PM-7AM ([facility] [place], [place], [place] and [place] Rehab): EpicChat or page through [employer]. NOLAN Araiza 07/28/24 1606 Patient seen and examined Interviewed and any questions answered All labs , xrays reviewed Clinical assessment and decisions made by myself in entirety Discussed case with team Agree with above assessment and plan Electronically signed by: VAIBHAV SLATER MD, 07/28/2024 4:12 PM [facility] [address] [facility] [place] [address] (P): [phone] (F): [phone] documented in this encounterOhioHealth [facility]11-22-2024 History of Present illness Narrative* Analisa Ward DO - 07/28/2024 8:40 AM EST [facility] General Surgery Daily Progress Note Patient Name: [...] Question: Diet Type: Answer: Regular Texture 07/27/24 0751 Physical Exam General: Awake, alert, in no [...] 07/28/24 8:45 AM 6a - 6p Pager: [phone] Cosigned by Francois Pate MD at 07/28/2024 4:13 PM EST Associated attestation - Francois Pate MD - 07/28/2024 4:13 PM EST I reviewed the resident's note and discussed the case with the resident. This specific service willnot be billed. * Rona Gage MD - 07/27/2024 8:31 AM EST Images from the original note were not included. [facility] General Surgery Daily Progress Note Patient Name: [...] C (97.5 F) Pulse: [71-82] 71 Resp: [07-28] 17 BP: (132-164)/(64-93) 147/88 SpO2: [95 %-96 %] 96 % O2 Device: None (Room air) Allergies Allergen Reactions Metformin Anaphylaxis Intake/Output last 3 shifts: I/O last 3 completed shifts: In: 1879.5 [I.V.:1879.5] Out: - Intake/Output this shift: No intake/output [...] case with the resident. This specific service willnot be billed. * Adrienne Rodriguez MD - 07/27/2024 8:21 AM EST Images from the original note were not included. [facility] INTERNAL MEDICINE [facility] - 6 CARD TELE/INTERMEDIATE [address] [place] [address] [facility] Medicine Progress Note Patient: Johnathan Correa Date of : 1960 Room: [facility] PCP: No primary care provider on file. [...] change, appetite change (good appetite) and fatigue. Negativefor chills, diaphoresis and fever. Respiratory: Negative for cough, chest tightness, shortness of breath and wheezing. Cardiovascular: Positive for leg swelling. Negative for chest pain and palpitations. Gastrointestinal: Positive for abdominal pain (upper quadrant, mild, improving) and diarrhea (a fewsmall loose BMs). Negative for abdominal distention, constipation, [...] Findings: AP supine view of the abdomen. Gas- filled dilated bowel loops are seen suggestive of evolving small bowel obstruction. Enteric catheter tip in the region of the gastric fundus. Residual contrast in the urinary bladder. Impression: Gas-filled dilated small bowel loops concerning for evolving small bowel obstruction. Finalized by Mayito Gonzalez MD on 07/24/2024 2:21 PM HOSPITAL PROBLEM LIST Principal Problem: Small bowel obstruction ([facility]) Active Problems: JAM (obstructive sleep apnea) Hypertension DM2 (diabetes mellitus, type 2) ([facility]) CAD (coronary artery disease) ASSESSMENT & PLAN [...] diet. NOLAN Araiza, 07/27/2024 8:21 AM [facility] Internal Medicine 7AM-7PM (all facilities): EpicPatriciat or page through [employer]. 7PM-7AM ([facility], [facility] Psychiatry and Inpatient Rehab): [employer] or sean, [phone]. 7PM-7AM ([place], [place], [place], [place] and [facility] Rehab): EpicChat or page through [employer]. NOLAN Araiza 07/27/241850 NOLAN Araiza 07/27/241850 Physician Attestation I personally performed a face to face diagnostic evaluation on this patient on 07/27/24 I have repeated the ghosh portions of the history, review of systems,physical exam, reviewed relevantlaboratory findings and imaging reports/films. I agree with the PINO findings and the plan . Adrienne Rodriguez MD * Adrienne Rodriguez MD - 07/26/2024 9:07 AM EST Images from the original note were not included. [facility] INTERNAL MEDICINE [facility] - 6 CARD TELE/INTERMEDIATE [address] [place] [address] Hospital Medicine Progress Note Patient: Johnathan Correa Date of : 1960 Room: [facility] PCP: No primary care provider on file. [...] Findings: AP supine view of the abdomen. Gas- filled dilated bowel loops are seen suggestive of [...] apnea) Hypertension DM2 (diabetes mellitus, type 2) (CMS-HCC) CAD (coronary artery disease) ASSESSMENT & PLAN Small Bowel Obstruction General Surgery consulted. Passing gas and had small loose BM. Afebrile. WBC 16.3 > 17.5 > 15.9. NGT pulled this morning. Denies N/V, but does admit to mild abdominal pain in bilateral upper quadrants. Tolerating CLD. [place] PRN for pain and compazine PRN for nausea Diabetes mellitus, type 2 Takes a once weekly injection, cannot remember the name ACHS checks + Sliding Scale Insulin Hypertension / HLD / CAD - remote history of stents Carvedilol, lisinopril, amlodipine Obstructive sleep apnea Noncompliant with CPAP GERD Protonix Depression Celexa DC planning: Pending Clinical Course. NOLAN Araiza, 07/26/2024 9:07 AM [facility] Internal Medicine 7AM-7PM (all facilities): [employer] or page through CommercialTribe. 7PM-7AM ([facility], [facility] Psychiatry and Inpatient Rehab): EpicChat or page, [phone]. 7PM-7AM ([place], [place], [place], [place] and [facility] Rehab): EpicChat or page through CommercialT[employer]. NOLAN Araiza 07/26/24 2430 Physician Attestation I personally performed a face to face diagnostic evaluation on this patient on 07/26/24 I have repeated the ghosh portions of the history, review of systems,physical exam, reviewed relevantlaboratory findings and imaging reports/films. I agree with the PINO findings and the plan . Adrienne Rodriguez MD * Analisa Ward DO - 07/26/2024 8:27 AM EST Images from the original note were not included. [facility] General Surgery Daily Progress Note Patient Name: Johnathan Correa Admit Date: 07/24/2024 Length of Stay: 2 Days Admitting Physician: Adrienne Rodriguez MD Subjective: No acute events overnight. Patient reports abdominal pain is better than yesterday. He is less distended and less tympanic, but is eager to drink fluids. He denies nausea, vomiting, fever and chills.He reports passing gas and had a bowel [...] Dietary Orders (From admission, onward) Start Ordered 07/26/24 0633 Adult diet Clear Liquid Diet effective now Question: Diet Type: Answer: Clear Liquid 07/26/24 0632 Physical Exam General: Awake, alert, in no [...] of the service. I was directly involved inthe management and treatment plan of the patient. I reviewed the resident's note. Additional Notes/Findings: Start CLD. Álvaro Davis MD, FACS General Surgery and Minimally Invasive Surgery [address] [place] [address], [address] [place], [place] [address] Office: * Adrienne Rodriguez MD - 07/25/2024 8:58 AM EST Images from the original note were not included. [facility] INTERNAL MEDICINE [facility] - 6 CARD TELE/INTERMEDIATE [address] [facility] [id number] Hospital Medicine Progress Note Patient: Johnathan Correa Date of : 1960 Room: [facility]/ PCP: No primary care provider on file. [...] Findings: AP supine view of the abdomen. Gas- filled dilated bowel loops are seen suggestive of evolving small bowel obstruction. Enteric catheter tip in the region of the gastric fundus. Residual contrast in the urinary bladder. Impression: Gas-filled dilated small bowel loops concerning for evolving small bowel obstruction. Finalized by Mayito Gonzalez MD on 07/24/2024 2:21 PM HOSPITAL PROBLEM LIST Principal Problem: Small bowel obstruction ([facility]) Active Problems: JAM (obstructive sleep apnea) Hypertension DM2 (diabetes mellitus, type 2) ([facility]) CAD (coronary artery disease) ASSESSMENT & PLAN [...] Course. NOLAN Araiza, 07/25/2024 8:58 AM [facility] Internal Medicine 7AM-7PM (all facilities): [employer] or page through [employer]. 7PM-7AM ([facility], [facility] Psychiatry and Inpatient Rehab): EpicChat or page, [phone]. 7PM-7AM ([place], [place], [place], [place] and [facility] Rehab): EpicChat or page through [employer]. NOLAN Araiza 07/25/24 1704 Physician Attestation I personally performed a face to face diagnostic evaluation on this patient on 07/25/24 I have repeated the ghosh portions of the history, review of systems,physical exam, reviewed relevantlaboratory findings and imaging reports/films. I agree with the PINO findings and the plan . Adrienne Rodriguez MD * Rona Gage MD - 07/25/2024 6:54 AM EST Images from the original note were not included. [facility] General Surgery Daily Progress Note Patient Name: Johnathan Correa Admit Date: 07/24/2024 Length of Stay: 1 Days Admitting Physician: Adrienne Rordiguez MD Subjective: No acute events overnight. Patient reports abdominal pain is slightly improved. He is still distended He is eager to drink fluids. He denies nausea, vomiting, fever and chills. He reports passing gasand had a bowel movement this morning. WBC [...] bowel loops are seen suggestive of evolving smallbowel obstruction. Enteric catheter tip in the region [...] 125 mL/hour but this was stopped a fewhours ago. He is profoundly thirsty. I believe [...] plan as noted above. documented in [facility]* Mono Weinberg RN - 07/28/2024 7:17 AM EST Plan of care reviewed with ANTOINETTE Tran. [facility]11-[facility] Nurse Note* Mono Weinberg RN - 07/28/2024 7:17 AM EST Plan of care reviewed with ANTOINETTE Tran. * Josiane Aguilar RN - 07/27/2024 6:00 PM EST Plan of care reviewed with car barn laborer * Blaire Aldana LPN - 07/27/2024 9:49 AM EST Pt tolerated reg diet eating 25% of his breakfast * Blaire Aldana LPN - 07/26/2024 8:38 AM EST NG tube removed per order, Pt tolerated procedure well. No c/o pain of nausea. Pts diet has advanced to clear liquids * Teresa Nguyen RN - 07/25/2024 10:27 AM EST Images from the original note were not [...] CPAP machine with him. Teresa Nguyen RN [id number] Rapid Response: [facility] * Luis Pope RN - 07/24/2024 4:03 AM EST Patient arrived at 0315 from [facility]. The patient arrived with an NG tube at 64 cm and was hooked to suction at the previous facility. Reached out to the CAN CLOSING MACHINE OPERATOR food concession manager for suction orders and was advised to reach out to General Surgery for suction orders. I paged Dr. Pate who was food concession manager for general surgery and told him about the consult and the need for suction orders and he told me thatI can not call at 0400 and ask for orders for a new consult he doesn't even know. I told him I was advised to reach out to him for the suction order and he advised me to reach back out to the CAN CLOSING MACHINE OPERATOR food concession manager as he was not doing it. Sent another secure messaged to the CAN CLOSING MACHINE OPERATOR food concession manager. Waiting for orders. Will continue to monitor. documented in this encounterOhio[facility]11-22-2024 Plan of care note * Plan of Care - Erwin Starkey RN - 07/28/2024 12:02 AM EST Problem: Pain Goal: Patient goal is pain score less than 4, able to rest, and participant in treatment plan as appropriate Description: INTERVENTIONS: 1. Encourage patient or legal sales representative trainee to report early pain and ask for [...] per policy 9. Teach patient or legal sales representative trainee interventions for comforting Outcome: Progressing Note: Evaluation of progress towards goal: Patient encouraged to report pain early. [facility] Plan of care note* Plan of Care - Blaire Aldana LPN - 07/27/2024 6:23 PM EST Problem: Safety Goal: Patient will be injury free during hospitalization Description: INTERVENTIONS: 1. Assess patient's risk for falls and implement fall prevention plan of care per policy 2. Provide and maintain a safe environment 3. Proper use of double Identifiers 4. Medication administration using the 5 rights 5. Hand hygiene 6. Specimens are labeled at the bedside 7. Instruct patient/ patient sales representative trainee about use of safety devices 8. Include patient/ patient sales representative trainee in decisions related to safety Outcome: Progressing Note: Evaluation of progress towards goal: call light within reach and bed in lowest position [facility]11-[facility] Nurse Note* Josiane Aguilar RN - 07/27/2024 6:00 PM EST Plan of care reviewed with antoinette [facility]11-[facility] Nurse Note* Blaire Aldana LPN - 07/27/2024 9:49 AM EST Pt tolerated reg diet eating 25% of his breakfast [facility]11-21-2024 Progress note* Query Response - NOLAN Araiza - 07/27/2024 7:00 AM EST Query Response Note AUTOMATED QUERY TEXT: Type [...] signed by: Stephanie FRANCISCO 07/27/2024 6:57 AM [facility]11-21-2024 Plan of care note* Plan of Care - Luis Pope RN - 07/27/2024 4:44 AM EST Problem: Pain Goal: Patient goal is pain score less than 4, able to rest, and participant in treatment plan as appropriate Description: INTERVENTIONS: 1. Encourage patient or legal sales representative trainee to report early pain and ask for [...] per policy 9. Teach patient or legal sales representative trainee interventions for comforting Outcome: Progressing Note: Evaluation of progress towards goal: Patient denies pain at this time and is sleeping comfortably in bed. [facility] Yozio [id number] Progress note* Discharge Planning Note - Beatrice Montoya RN - 07/26/2024 4:24 PM EST DISCHARGE PLANNING NOTE Chart reviewed and case discussed in daily transition rounds this AM. Pt currently holds a 11.4% readmission risk.Per RN, NG tube out and pt tolerating clear liq diet. Ant possible d/c tomorrow. No needs anticipated. CN will continue to follow and is available should any further needs arise. [facility]11-20-2024 Plan of care note* Plan of Care - Blaire Aldana LPN - 07/26/2024 10:53 AM EST Problem: Infection Goal: Absence of infection during [...] hygiene technique 7. Identify and instruct patient/patient sales representative trainee in use of appropriate isolation precautionsfor identified infection/symptoms 8. Provide and discuss with patient/patient sales representative trainee on educational MDRO sheet 9. Encourage and monitor nutritional status daily and consult rag collector if indicated 10. Implement neutropenic guidelines as needed 11. Review exposure to history of communicable disease and recent travel history on admission 12. Encourage annual influenza vaccine 13. Encourage pneumonia vaccine Outcome: Progressing Note: Evaluation of progress towards goal: vital signs and labs are monitored each shift [facility]11-20-2024 Nurse Note* Blaire Aldana LPN - 07/26/2024 8:38 AM EST NG tube removed per order, Pt tolerated procedure well. No c/o pain of nausea. Pts diet has advanced to clear liquids [facility] Federspiel Cor[facility] centerkatena [id number] Plan of care note* Plan of Care - Luis Pope RN - 07/26/2024 3:26 AM EST Problem: Pain Goal: Patient goal is pain score less than 4, able to rest, and participant in treatment plan as appropriate Description: INTERVENTIONS: 1. Encourage patient or legal sales representative trainee to report early pain and ask for [...] per policy 9. Teach patient or legal sales representative trainee interventions for comforting Outcome: Progressing Note: Evaluation [...] at the bedside 7. Instruct patient/ patient sales representative trainee about use of safety devices 8. Include patient/ patient sales representative trainee in decisions related to safety Outcome: Progressing [...] patient to go home with her . [facility]11-[facility] Plan of care note* Plan of Care - Blaire Aldana LPN - 07/25/2024 6:24 PM EST Problem: Discharge Planning Goal: Discharge to post-acute [...] goal: pt [facility] be d[facility]11-19-[facility] Nurse Note* Teresa Nguyen RN - 07/25/2024 10:27 AM EST Images from the original note were not [...] CPAP machine with him. Teresa Nguyen RN [id number] Rapid Response: [facility]11-19-20[facility] Plan of care note* Plan of Care - Luis Pope RN - 07/25/2024 2:21 AM EST Problem: Pain Goal: Patient goal is pain score less than 4, able to rest, and participant in treatment plan as appropriate Description: INTERVENTIONS: 1. Encourage patient or legal sales representative trainee to report early pain and ask for [...] per policy 9. Teach patient or legal sales representative trainee interventions for comforting Outcome: Progressing Note: Evaluation of progress towards goal: Patient denies pain at this time and NG hooked up to LIWS. [facility]11-18-[facility] Plan of care note* Plan of Care - Alka Bird RN - 07/24/2024 5:25 PM EST Problem: Pain Goal: Patient goal is pain score less than 4, able to rest, and participant in treatment plan as appropriate Description: INTERVENTIONS: 1. Encourage patient or legal sales representative trainee to report early pain and ask for [...] per policy 9. Teach patient or legal sales representative trainee interventions for comforting Outcome: Progressing Note: Evaluation of progress towards goal: Pain well managed with dilaudid, ngt to wc. Problem: Safety Goal: Patient will be injury free during hospitalization Description: INTERVENTIONS: 1. Assess patient's risk for falls and implement fall prevention plan of care per policy 2. Provide and maintain a safe environment 3. Proper use of double Identifiers 4. Medication administration using the 5 rights 5. Hand hygiene 6. Specimens are labeled at the bedside 7. Instruct patient/ patient sales representative trainee about use of safety devices 8. Include patient/ patient sales representative trainee in decisions related to safety Outcome: Progressing [...] hygiene technique 7. Identify and instruct patient/patient sales representative trainee in use of appropriate isolation precautionsfor identified infection/symptoms 8. Provide and discuss with patient/patient sales representative trainee on educational MDRO sheet 9. Encourage and monitor nutritional status daily and consult rag collector if indicated 10. Implement neutropenic guidelines as needed 11. Review exposure to history of communicable disease and recent travel history on admission 12. Encourage annual influenza vaccine 13. Encourage pneumonia vaccine Outcome: Progressing Note: Evaluation of progress towards goal: WBC count elevated on admission. Afebrile this shift. Will continue to monitor. Problem: Knowledge Deficit Goal: Patient/patient sales representative trainee demonstrates understanding of disease process, treatment plan,medications, and discharge instructions Description: INTERVENTIONS 1. Complete [...] to return home at discharge with spouse. [facility] [employer] Work Phone: [phone] 407-859111-18-2024 Progress note* PT/OT/CARGO SERVICES COORDINATOR - Jemima Proctor, PT - 07/24/2024 9:32 AM EST Physical Therapy PT Type of Visit: (Per RN, pt is independent with mobility & has no PT needs. Will discontinue PT order at this time.) [employer] [id number] Progress note* PT/OT/CARGO SERVICES COORDINATOR - Emily Vidales OTR/L - 07/24/2024 9:28 AM EST Occupational Therapy OT Type of Visit: Discharge from Therapy (Per RN report, pt is indep with ADLs and functional mobility. No acute OT needs identified. Will discontinue OT order at this time.) [employer] [id number] Progress note* Discharge Planning Note - Alaina Slaughter LCSW - 07/24/2024 9:18 AM EST DISCHARGE PLANNING NOTE Sales Marketing met with patient, introduced self, and explained role. Patient educated on safe discharge plan. Pt admitted 07/24/2024 with Small bowel obstruction (CMS-HCC) [K56.609] Small bowel obstruction (CMS-HCC) [K56.609] per chart review. Pt is listed in [facility] as a 5% risk forre-admission. Pt reports that he is from the [facility]. Confirms that he does have health insurance. [...] primary care provider on file. Pharmacy: [facility] [place] PCP and pharmacy confirmed with patient. CN [...] - Alaina Slaughter LCSW 07/24/24 9:19 AM [facility]11-[facility] History and physical note* Adrienne Rodriguez MD - 07/24/2024 4:11 AM EST Images from the original note were not included. [facility] INTERNAL MEDICINE [facility] - 6 CARD TELE/INTERMEDIATE [address] [facility] [place] [address] Hospital Medicine History & Physical Patient: Johnathan Stewart Date of : 1960 Room: [facility]/ PCP: No primary care provider on file. Admission date: 07/24/2024 3:05 AM Encounter date: 07/24/24 Hospital Day: 1 SUBJECTIVE Johnathan Stewart is a 63 y.o. male who presents with abdominal pain and nausea that started at 3:00 PMthis afternoon. He reported a normal bowel movement the day prior and denied any history of abdominal surgery. He was seen at [place] ED, and work up was completed with labs overall unremarkable butcreatinine 1.[address] abd/pelvis showed prominent gas and fluid filled distended small willam wel loops appear to show gradual tapering to normal caliber distally, with no transition point identified, favoring severe small bowel ileus over partial distal small bowel obstruction. ED attending spoke with Dr. Ferrara regarding the patient who recommended patient be admitted to [facility] tosee the surgery team here. An NG tube was placed after discussion with general surgery prior to transfer. On arrival to [facility], he is having 10/10 abdominal pain and [...] ear normal. Nose: Nose normal. Mouth/Throat: Lips: Aptos. Mouth: Mucous membranes are dry. Pharynx: Oropharynx [...] placed NG tube - recommended transfer to [facility] to see surgery NG tube [...] course. EMMETT SAUER PA-C 07/24/2024 4:11 AM [facility] Internal Medicine 7AM-7PM (all facilities): [employer] or page through [employer]. 7PM-7AM ([facility], [facility] Psychiatry and Inpatient Rehab): EpicChat or page, [phone]. 7PM-7AM ([place], [place], [place], [place] and [facility] Rehab): EpicChat or page through [employer]. Emmett Sauer PA-C 07/24/24 0649 Physician Attestation I personally performed a face to face diagnostic evaluation on this patient on 07/24/24 I have repeated the ghosh portions of the history, review of systems,physical exam, reviewed relevantlaboratory findings and imaging reports/films. I agree with the PINO findings and the plan . Patient indicates improved abdominal pain , NG in place. CT A/P done at outlying unavailable, beingloaded into imaging per staff. [employer] consulted, pending eval . Discussed plan of care with patient. Adrienne Rodriguez MD [facility]11-18-2024 History and physical note* Adrienne Rodriguez MD - 07/24/2024 4:11 AM EST Images from the original note were not included. [facility] INTERNAL MEDICINE [facility] - 6 CARD TELE/INTERMEDIATE [address] [facility] [id number] Hospital Medicine History & Physical Patient: Johnathan Stewart Date of : 1960 Room: [facility] PCP: No primary care provider on file. Admission date: 07/24/2024 3:05 AM Encounter date: 07/24/24 Hospital Day: 1 SUBJECTIVE Johnathan Stewart is a 63 y.o. male who presents with abdominal pain and nausea that started at 3:00 PMthis afternoon. He reported a normal bowel movement the day prior and denied any history of abdominal surgery. He was seen at [place] ED, and work up was completed with labs overall unremarkable butcreatinine 1.[address] abd/pelvis showed prominent gas and fluid filled distended small willam wel loops appear to show gradual tapering to normal caliber distally, with no transition point identified, favoring severe small bowel ileus over partial distal small bowel obstruction. ED attending spoke with Dr. Ferrara regarding the patient who recommended patient be admitted to [facility] tosee the surgery team here. An NG tube was placed after discussion with general surgery prior to transfer. On arrival to [facility], he is having 10/10 abdominal pain and [...] ear normal. Nose: Nose normal. Mouth/Throat: Lips: Aptos. Mouth: Mucous membranes are dry. Pharynx: Oropharynx [...] placed NG tube - recommended transfer to [facility] to see surgery NG tube [...] EMMETT SAUER PA-C 07/24/2024 4:11 AM [facility] Internal Medicine 7AM-7PM (all facilities): EpicChat or page through Vocera. 7PM-7AM ([facility], [facility] Psychiatry and Inpatient Rehab): EpicChat or page, [phone]. 7PM-7AM ([place], [place], [place], [place] and [facility] Rehab): EpicChat or page through Vocera. Emmett Sauer PA-C 07/24/24 0649 Physician Attestation I personally performed a face to face diagnostic evaluation on this patient on 07/24/24 I have repeated the ghosh portions of the history, review of systems,physical exam, reviewed relevantlaboratory findings and imaging reports/films. I agree with the PINO findings and the plan . Patient indicates improved abdominal pain , NG in place. CT A/P done at outlying unavailable, beingloaded into imaging per staff. Gensx consulted, pending eval . Discussed plan of care with patient. Adrienne Rodriguez MD documented in this encounterOhioHealth [facility]11-18-2024 Nurse Note* Luis Pope RN - 07/24/2024 4:03 AM EST Patient arrived at 0315 from [facility]. The patient arrived with an NG tube at 64 cm and was hooked to suction at the previous facility. Reached out to the CAN CLOSING MACHINE OPERATOR food concession manager for suction orders and was advised to reach out to General Surgery for suction orders. I paged Dr. Pate who was food concession manager for general surgery and told him about the consult and the need for suction orders and he told me thatI can not call at 0400 and ask for orders for a new consult he doesn't even know. I told him I was advised to reach out to him for the suction order and he advised me to reach back out to the CAN CLOSING MACHINE OPERATOR food concession manager as he was not doing it. Sent another secure messaged to the CAN CLOSING MACHINE OPERATOR food concession manager. Waiting for orders. Will continue to monitor. [facility]11-18-2024 Miscellaneous Notes* Telephone Encounter - Junie Constance - 07/24/2024 3:54 AM EST Contract: bella Obrien calling for consult for small bowel obstruction. Room 607. Sent secure chat to Dr Pate. documented in this encounterOhioHealth [facility] Center11-18-2024 Telephone encounter Note* Telephone Encounter - Juniecorina Nolasco - 07/24/2024 3:54 AM EST Contract: bella Obrien calling for consult for small bowel obstruction. Room 607. Sent secure chat to Dr Pate. [facility]11-18-2024 Plan of care note* Plan of Care - Luis Pope RN - 07/24/2024 3:31 AM EST Problem: Pain Goal: Patient goal is pain score less than 4, able to rest, and participant in treatment plan as appropriate Description: INTERVENTIONS: 1. Encourage patient or legal sales representative trainee to report early pain and ask for [...] per policy 9. Teach patient or legal sales representative trainee interventions for comforting Outcome: Progressing Note: Evaluation of progress towards goal: Patient rates pain a 10/10. PRN pain medications requested from CAN CLOSING MACHINE OPERATOR food concession manager Problem: Safety Goal: Patient will be injury free during hospitalization Description: INTERVENTIONS: 1. Assess patient's risk for falls and implement fall prevention plan of care per policy 2. Provide and maintain a safe environment 3. Proper use of double Identifiers 4. Medication administration using the 5 rights 5. Hand hygiene 6. Specimens are labeled at the bedside 7. Instruct patient/ patient sales representative trainee about use of safety devices 8. Include patient/ patient sales representative trainee in decisions related to safety Outcome: Progressing Note: Evaluation of progress towards goal: Patient is independent, bed in low position, bed locked,call light within reach and patient educated on [...] hygiene technique 7. Identify and instruct patient/patient sales representative trainee in use of appropriate isolation precautionsfor identified infection/symptoms 8. Provide and discuss with patient/patient sales representative trainee on educational MDRO sheet 9. Encourage and monitor nutritional status daily and consult rag collector if indicated 10. Implement neutropenic guidelines as [...] of 0 - 24 or indicated by [facility] Assessment Goal: Patient should be free from fall Description: Interventions: 1. [place] to environment 2. Hourly rounds addressing the [...] non-skid footwear 11. Teach patient and patient sales representative trainee to maintain environment for safety and engage in all aspects of fall prevention program Outcome: Progressing Note: Evaluation of progress towards goal: Patient is independent from home, steady gait with good balance. Low risk for falls, but still educated on importance of calling out for help to prevent falls. [facility]11-07-2024 History of Present illness Narrative* Gray Cancino DPM - 07/13/2024 11:00 AM EST Patient: Johnathan Valentino Sunny : 1960 PCP: [...] the following treatments for the ulcer of medihoney every other day. Pt is a DM2. Allergies: Allergies Allergen Reactions Metformin Diarrhea and GI intolerance Other Reaction(s): Abdominal Pain, diarrhea, Stomach cramps Vancomycin Rash Past Medical History: Past Medical History: Diagnosis Date Diabetes ([facility]/HCC) Hypertension ([facility]/HCC) Medications: Current Outpatient Medications: amLODIPine (Norvasc) 5 [...] Partner Violence: Unknown (10/28/2023) Received from [facility] [place] Safety & Environment Fear of [...] CP, palpitations, irregular rhythms. Old history of WI and cardiac stents OBJECTIVE LE EXAM: DERM: [...] cool tibia to toes b/l NEURO: 5.[address] [place] [address] monofilament test intact to digits and forefoot bilaterally 125Hz tuning fork diminished to 1st MPJ bilaterally ORTHO: +5/5 DF/PF/IN/EV right, +5/5 DF/PF/IN/EV left. 20 degrees inversion and 10 degrees eversion STJ b/l. Ankle ROM less than 10 degrees b/l. Negative pain on palpation to right hallux ulcer and left foot ulcerations DUSTIN PVR: [place] report reviewed today with findings of mild PVD right-sided DUSTIN TBI of 0.85 0.91 and TBI of right side 0.91 and left 0.84. 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) 2. Foot ulcer, right, with fat layer exposed ([facility]) 3. Foot ulcer, left, with fat layer exposed ([facility]) PLAN Patient observe for any changes to his foot and if has any issues to contact Podiatry but otherwisehe is leaving for 5 weeks to the [facility] and will contact Podiatry if any further issues Advised patient to wear shoe gear that is appropriate for the area Patient educated today on proper diabetic foot care including monitoring feet daily for any signs of infection openings in the skin or irregularities to both feet. Patient had a diabetic neurologicalexam today to both their feet and discussed proper shoe gear. Gray Cancino DPM documented in this encounterHannibal Regional [id number] History of Present illness Narrative* Gray Cancino DPM - 07/06/2024 11:10 AM EDT Patient: Johnathan Correa : 1960 PCP: Luis [...] the following treatments for the ulcer of [facility] every other day. Pt is a DM2. Allergies: Allergies Allergen Reactions Metformin Diarrhea and GI intolerance Other Reaction(s): Abdominal Pain, diarrhea, Stomach cramps Vancomycin Rash Past Medical History: Past Medical History: Diagnosis Date Diabetes ([facility]) Hypertension ([facility]) Medications: Current Outpatient Medications: amLODIPine (Norvasc) 5 [...] Partner Violence: Unknown (10/28/2023) Received from [facility] Safety & Environment Fear of Current [...] CP, palpitations, irregular rhythms. Old history of WI and cardiac stents OBJECTIVE LE EXAM: DERM: [...] cool tibia to toes b/l NEURO: 5.[address] monofilament test intact to digits and forefoot bilaterally 125Hz tuning fork diminished to 1st MPJ bilaterally ORTHO: +5/5 DF/PF/IN/EV right, +5/5 DF/PF/IN/EV left. 20 degrees inversion and 10 degrees eversion STJ b/l. Ankle ROM less than 10 degrees b/l. Negative pain on palpation to right hallux ulcer and left foot ulcerations DUSTIN PVR: [place] report reviewed today with findings of mild PVD right-sided DUSTIN TBI of 0.85 0.91 and TBI of right side 0.91 and left 0.84. TBI are normal with DUSTIN suggest mild bilateral arterial occlusive disease ASSESSMENT 15 days postop right and left foot epidermal skin graft 2 ulcerations 1. Diabetes 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 polyneuropathy, unspecified whether long-term insulin use ([facility]) 2. Foot ulcer, right, with fat layer exposed ([facility]) PLAN Sharp debridement with 15 blade of subcutaneous ulceration to right and foot with active bleeding noted and removal and excision of fibrotic and necrotic tissue to wound and DSD applied with neosporin. Pt to continue with Medihoney every other day. Today's procedure is a staged procedure and patient may need further procedures in the future. Gray Cancino DPM documented in this encounterHannibal Regional [id number] History of Present illness Narrative* Gray Cancino DPM - 06/29/2024 11:20 AM EDT Patient: Johnathan Correa : 1960 PCP: Luis [...] History: Past Medical History: Diagnosis Date Diabetes ([facility]) Hypertension ([facility]) Medications: Current Outpatient Medications: amLODIPine (Norvasc) 5 [...] Partner Violence: Unknown (10/28/2023) Received from [facility] Safety & Environment Fear of Current [...] CP, palpitations, irregular rhythms. Old history of WI and cardiac stents OBJECTIVE LE EXAM: DERM: [...] cool tibia to toes b/l NEURO: 5.[address] monofilament test intact to digits and forefoot bilaterally 125Hz tuning fork diminished to 1st MPJ bilaterally ORTHO: +5/5 DF/PF/IN/EV right, +5/5 DF/PF/IN/EV left. 20 degrees inversion and 10 degrees eversion STJ b/l. Ankle ROM less than 10 degrees b/l. Negative pain on palpation to right hallux ulcer and left foot ulcerations DUSTIN PVR: [place] report reviewed today with findings of mild PVD right-sided DUSTIN TBI of 0.85 0.91 and TBI of right side 0.91 and left 0.84. TBI are normal with DUSTIN suggest mild bilateral arterial occlusive disease ASSESSMENT Eight days postop right and left foot epidermal skin graft 2 ulcerations 1. 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) 2. Foot ulcer, right, with fat layer exposed ([facility]) PLAN Sharp debridement with 15 blade of subcutaneous ulceration to right and foot with active bleeding noted and removal and excision of fibrotic and necrotic tissue to wound and DSD applied with neosporin. Pt to continue with [facility] every other day. Today's procedure is a staged procedure and patient may need further procedures in the future. Gray Cancino DPM documented in this encounterHannibal Regional [id number] History of Present illness Narrative* Gray Cancino DPM - 06/15/2024 8:50 AM EDT Patient: Johnathan Correa : 1960 PCP: Luis [...] History: Past Medical History: Diagnosis Date Diabetes (CMS/HCC) Hypertension ([facility]/HCC) Medications: Current Outpatient Medications: amLODIPine (Norvasc) 5 [...] Partner Violence: Unknown (10/28/2023) Received from [facility] Safety & Environment Fear of Current [...] CP, palpitations, irregular rhythms. Old history of WI and cardiac stents OBJECTIVE LE EXAM: DERM: negative hair growth to b/l feet with thin skin noted Ulceration present to the plantar aspect of the right great toe that measures 0.4 cm x 0.3 cm x 0.2cm subcutaneous thickness depth with negative erythema negative [...] cool tibia to toes b/l NEURO: 5.[address] monofilament test intact to digits and forefoot bilaterally 125Hz tuning fork diminished to 1st MPJ bilaterally ORTHO: +5/5 DF/PF/IN/EV right, +5/5 DF/PF/IN/EV left. 20 degrees inversion and 10 degrees eversion STJ b/l. Ankle ROM less than 10 degrees b/l. Negative pain on palpation to right hallux ulcer DUSTIN PVR: [place] report reviewed today with findings of mild PVD right-sided DUSTIN TBI of 0.85 0.91 and TBI of right side 0.91 and left 0.84. TBI are normal with DUSTIN suggest mild bilateral arterial occlusive disease ASSESSMENT 1. Diabetes 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 polyneuropathy, unspecified whether long-term insulin use ([facility]) 2. Foot ulcer, right, with fat layer exposed ([facility]) 3. Foot ulcer, left, with fat layer exposed ([facility]) 4. PVD (peripheral vascular disease) ([facility]) PLAN Decision for surgery today and patient medically cleared from a podiatric standpoint for surgery and to proceed with surgery. Pt scheduled for right and left foot preparation of ulcerations for skin grafting with application of EDSG from thigh to b/l ulcerations. Discussed with the patient the nature of condition and operative vs nonoperative care. The surgicalplans, risks, alternatives, benefits, post op complications and terminal operations manager expectations were discussed including but not limited to: infection,bone infection,wound dehiscence hardware failure and irritation,wound dehiscence,delay union/mal union/non union of bone. RSDS,neuroma,duty limitations,DVT/PE, WI,nerve damage, scar, loss of sensation, swelling. Pt [...] (date) Gray Cancino DPM documented in this encounterHannibal Regional [id number] History of Present illness Narrative* Gray Cancino DPM - 06/08/2024 8:50 AM EDT Patient: Johnathan Correa : 1960 PCP: Luis [...] History: Past Medical History: Diagnosis Date Diabetes (CMS/HCC) Hypertension ([facility]) Medications: Current Outpatient Medications: amLODIPine (Norvasc) 5 [...] Partner Violence: Unknown (10/28/2023) Received from [facility] Safety & Environment Fear of Current [...] CP, palpitations, irregular rhythms. Old history of WI and cardiac stents OBJECTIVE LE EXAM: DERM: negative hair growth to b/l feet with thin skin noted Ulceration present to the plantar aspect of the right great toe that measures 0.4 cm x 0.3 cm x 0.2cm subcutaneous thickness depth with negative erythema negative [...] cool tibia to toes b/l NEURO: 5.[address] monofilament test intact to digits and forefoot bilaterally 125Hz tuning fork diminished to 1st MPJ bilaterally ORTHO: +5/5 DF/PF/IN/EV right, +5/5 DF/PF/IN/EV left. 20 degrees inversion and 10 degrees eversion STJ b/l. Ankle ROM less than 10 degrees b/l. Negative pain on palpation to right hallux ulcer DUSTIN PVR: [place] report reviewed today with findings of mild PVD right-sided DUSTIN TBI of 0.85 0.91 and TBI of right side 0.91 and left 0.84. TBI are normal with DUSTIN suggest mild bilateral arterial occlusive disease ASSESSMENT 1. Diabetes 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 polyneuropathy, unspecified whether long-term insulin use ([facility]) 2. Foot ulcer, right, with fat layer exposed ([facility]) 3. Foot ulcer, left, with fat layer exposed ([facility]) PLAN Patient education on condition and treatment of condition. Continues urea cream daily to the right heel fissure and dry skin to feet bilaterally. Reviewed DUSTIN PVRs from [facility] with findings of mild PVD and most likely no intervention at this time Sharp debridement with 15 blade of subcutaneous ulceration to right foot with active bleeding notedand removal and excision of fibrotic and necrotic tissue to wound and DSD applied with neosporin. Pt to continue with Betadine daily Patient also apply Betadine daily with dry sterile dressing to left foot ulcer Patient most likely have epidermal skin graft near future follow up in 1 week for most likely preop Gray Cancino DPM documented in this encounterHannibal Regional [id number] History of Present illness Narrative* Gray Cancino DPM - 06/01/2024 9:00 AM EDT Patient: Johnathan Correa : 1960 PCP: Luis [...] History: Past Medical History: Diagnosis Date Diabetes (CMS/HCC) Hypertension ([facility]) Medications: Current Outpatient Medications: amLODIPine (Norvasc) 5 [...] Partner Violence: Unknown (10/28/2023) Received from [facility] [place] [facility] Environment Fear of [...] CP, palpitations, irregular rhythms. Old history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 Gonzalez MD Location:[facility] Appointment Type:URO Office Visit [facility] evaluation + Plan note Future Appointments Appointment Date:03/03/2023 09:45:00 AM Scheduled Provider:Lety Gonzalez MD Location:[facility] Appointment Type:URO Office Visit Diagnostic Tests Pending * Testosterone [facility] Appointment Date:03/17/2023 08:00:00 AM Scheduled Provider: Location:[facility] Appointment Type:URO Nurse Visit Appointment Date:06/09/2023 08:45:00 AM Scheduled Provider:Lety Gonzalez MD Location:[facility] Appointment Type:URO Office Visit Diagnostic Tests Pending * PSA Free & Total 03/03/23 [facility] evaluation + Plan note Future Appointments Appointment Date:03/31/2023 08:00:00 AM Scheduled Provider: Location:[facility] Appointment Type:URO Nurse Visit Appointment Date:06/09/2023 08:45:00 AM Scheduled Provider:Lety Gonzalez MD Location:[facility] Appointment Type:URO Office Visit [facility] evaluation + Plan note Future Appointments Appointment Date:04/14/2023 08:00:00 AM Scheduled Provider: Location:[facility] Appointment Type:URO Nurse Visit Appointment Date:06/09/2023 08:45:00 AM Scheduled Provider:Lety Gonzalez MD Location:[facility] Appointment Type:URO Office Visit [facility] evaluation + Plan note Future Appointments Appointment Date:04/28/2023 08:30:00 AM Scheduled Provider: Location:[facility] Appointment Type:URO Nurse Visit Appointment Date:05/12/2023 08:00:00 AM Scheduled Provider: Location:[facility] Appointment Type:URO Nurse Visit Appointment Date:05/26/2023 08:00:00 AM Scheduled Provider: Location:[facility] Appointment Type:URO Nurse Visit Appointment Date:06/09/2023 08:45:00 AM Scheduled Provider:Lety Gonzalez MD Location:[facility] Appointment Type:URO Office Visit [facility] evaluation + Plan note Future Appointments Appointment Date:05/12/2023 08:00:00 AM Scheduled Provider: Location:[facility] Appointment Type:URO Nurse Visit Appointment Date:05/26/2023 08:00:00 AM Scheduled Provider: Location:[facility] Appointment Type:URO Nurse Visit Appointment Date:06/09/2023 08:45:00 AM Scheduled Provider:Lety Gonzalez MD Location:[facility] Appointment Type:URO Office Visit Diagnostic Tests Pending * Hemoglobin and Hematocrit 04/28/23 * PSA Free & Total 04/28/23 * Testosterone Level Total 04/28/23 [facility] evaluation + Plan note Future Appointments Appointment Date:05/26/2023 08:00:00 AM Scheduled Provider: Location:[facility] Appointment Type:URO Nurse Visit Appointment Date:06/02/2023 08:00:00 AM Scheduled Provider: Location:[facility] Appointment Type:URO Nurse Visit Appointment Date:06/09/2023 08:45:00 AM Scheduled Provider:Lety Gonzalez MD Location:[facility] Appointment Type:URO Office Visit [facility] evaluation + Plan note Future Appointments Appointment Date:06/02/2023 08:00:00 AM Scheduled Provider: [facility] App[facility] Type:URO Nurse Visit Appointment Date:06/09/2023 08:45:00 AM Scheduled Provider:Lety Gonzalez MD [facility] Type:[facility]O Office Visit [facility] evaluation + Plan note Future Appointments Appointment Date:07/07/2023 08:00:00 AM Scheduled Provider: Location:[facility] Appointment Type:URO Nurse Visit Appointment Date:07/21/2023 08:00:00 AM Scheduled Provider: Location:[facility] Appointment Type:URO Nurse Visit Appointment Date:08/04/2023 08:00:00 AM Scheduled Provider: Location:[facility] Appointment Type:URO Nurse Visit Appointment Date:09/01/2023 08:00:00 AM Scheduled Provider: Location:[facility] Appointment Type:URO Nurse Visit Appointment Date:09/15/2023 08:00:00 AM Scheduled Provider:Lety Gonzalez MD [facility] App[facility] Type[facility] Office Visit [facility] evaluation + Plan note Future Appointments Appointment Date:07/21/2023 08:00:00 AM Scheduled Provider: Location:[facility] Appointment Type:URO Nurse Visit Appointment Date:08/04/2023 08:00:00 AM Scheduled Provider: Location:[facility] Appointment Type:URO Nurse Visit Appointment Date:09/01/2023 08:00:00 AM Scheduled Provider: Location:[facility] Appointment Type:URO Nurse Visit Appointment Date:09/15/2023 08:00:00 AM Scheduled Provider:Lety Gonzalez MD [facility] Appointment Type:URO Office Visit [facility] evaluation + Plan note Future Appointments Appointment Date:08/04/2023 08:00:00 AM Scheduled Provider: Location:[facility] Appointment Type:URO Nurse Visit Appointment Date:09/01/2023 08:00:00 AM Scheduled Provider: Location:[facility] [place] Appointment Type:URO Nurse Visit Appointment Date:09/15/2023 08:00:00 AM Scheduled Provider:Lety Gonzalez MD Location:[facility] [place] Appointment Type:URO Office Visit [facility] evaluation + Plan note Future Appointments Appointment Date:09/01/2023 08:00:00 AM Scheduled Provider: Location:[facility] Appointment Type:URO Nurse Visit Appointment Date:09/15/2023 08:00:00 AM Scheduled Provider:Lety Gonzalez MD Location:[facility] Appointment Type:URO Office Visit [facility] evaluation + Plan note Future Appointments Appointment Date:09/15/2023 08:00:00 AM Scheduled Provider:Lety Gonzalez MD Location:[facility] Appointment Type:URO Office Visit [facility] evaluation + Plan note Future Appointments Appointment Date:09/15/2023 08:00:00 AM Scheduled Provider:Lety Gonzalez MD Location:[facility] Appointment Type:URO Office Visit Diagnostic Tests Pending * [facility] Appointment Date:09/29/2023 08:00:00 AM Scheduled Provider: Location:[facility] Appointment Type:URO Nurse Visit Appointment Date:03/01/2024 10:00:00 AM Scheduled Provider:Lety Gonzalez MD Location:[facility] Appointment Type:URO Office Visit Future Scheduled Tests Laboratory* PSA Screen, Total 12/15/23 * Hematocrit 09/15/23 * Testosterone Level Total 12/15/23 [facility] evaluation + Plan note Future Appointments Appointment Date:03/01/2024 10:00:00 AM Scheduled Provider:Lety Gonzalez MD Location:[facility] Appointment Type:URO Office Visit Future Scheduled Tests Laboratory* PSA Screen, Total 12/15/23 * Hematocrit 09/15/23 * Testosterone Level Total 12/15/23 [facility] evaluation + Plan note Future Appointments Appointment Date:11/03/2023 08:00:00 AM Scheduled Provider: Location:[facility] Appointment Type:URO Nurse Visit Appointment Date:03/01/2024 10:00:00 AM Scheduled Provider:Lety Gonzalez MD Location:[facility] Appointment Type:URO Office Visit Future Scheduled Tests Laboratory* PSA Screen, Total 12/15/23 * Hematocrit 09/15/23 * Testosterone Level Total 12/15/23 [facility] evaluation + Plan note Future Appointments Appointment Date:11/16/2023 09:00:00 AM Scheduled Provider: Location:[facility] Appointment Type:URO Nurse Visit Appointment Date:03/01/2024 10:00:00 AM Scheduled Provider:Lety Gonzalez MD Location:[facility] Appointment Type:URO Office Visit Future Scheduled Tests Laboratory* PSA Screen, Total 12/15/23 * Hematocrit 09/15/23 * Testosterone Level Total 12/15/23 [facility] evaluation + Plan note Future Appointments Appointment Date:12/24/2023 08:00:00 AM Scheduled Provider: Location:[facility] Appointment Type:URO Nurse Visit Appointment Date:03/01/2024 10:00:00 AM Scheduled Provider:Lety Gonzalez MD Location:[facility] Appointment Type:URO Office Visit Future Scheduled Tests Laboratory* PSA Screen, Total 12/15/23 * Hematocrit 09/15/23 * Testosterone Level Total 12/15/23 [facility] evaluation + Plan note Future Appointments Appointment Date:12/14/2023 08:30:00 AM Scheduled Provider: Location:[facility] Appointment Type:URO Nurse Visit Appointment Date:03/01/2024 10:00:00 AM Scheduled Provider:Lety Gonzalez MD Location:[facility] Appointment Type:URO Office Visit Future Scheduled Tests Laboratory* PSA Screen, Total 12/15/23 * Hematocrit 09/15/23 * Testosterone Level Total 12/15/23 [facility] evaluation + Plan note Future Appointments Appointment Date:12/28/2023 10:00:00 AM Scheduled Provider: Location:[facility] Appointment Type:URO Nurse Visit Appointment Date:03/01/2024 10:00:00 AM Scheduled Provider:Lety Gonzalez MD Location:[facility] Appointment Type:URO Office Visit Future Scheduled Tests Laboratory* PSA Screen, Total 12/15/23 * Hematocrit 09/15/23 * Testosterone Level Total 12/15/23 [facility] evaluation + Plan note Future Appointments Appointment Date:01/11/2024 08:30:00 AM Scheduled Provider: Location:[facility] Appointment Type:URO Nurse Visit Appointment Date:03/01/2024 10:00:00 AM Scheduled Provider:Lety Gonzalez MD Location:[facility] Appointment Type:URO Office Visit Future Scheduled Tests Laboratory* PSA Screen, Total 12/15/23 * Hematocrit 09/15/23 * Testosterone Level Total 12/15/23 [facility] evaluation + Plan note Future Appointments Appointment Date:01/25/2024 08:45:00 AM Scheduled Provider: Location:[facility] Appointment Type:URO Nurse Visit Appointment Date:03/01/2024 10:00:00 AM Scheduled Provider:Lety Gonzalez MD Location:[facility] Appointment Type:URO Office Visit Future Scheduled Tests Laboratory* PSA Screen, Total 12/15/23 * Hematocrit 09/15/23 * Testosterone Level Total 12/15/23 [facility] evaluation + Plan note Future Appointments Appointment Date:02/09/2024 08:00:00 AM Scheduled Provider: Location:[facility] Appointment Type:URO Nurse Visit Appointment Date:03/01/2024 10:00:00 AM Scheduled Provider:Lety Gonzalez MD Location:[facility] Appointment Type:URO Office Visit Future Scheduled Tests Laboratory* PSA Screen, Total 12/15/23 * Hematocrit 09/15/23 * Testosterone Level Total 12/15/23 [facility] evaluation + Plan note Future Appointments Appointment Date:02/23/2024 08:00:00 AM Scheduled Provider: Location:[facility] Appointment Type:URO Nurse Visit Appointment Date:03/08/2024 08:15:00 AM Scheduled Provider:Lety Gonzalez MD Location:[facility] Appointment Type:URO Office Visit Future Scheduled Tests Laboratory* PSA Screen, Total 12/15/23 * Hematocrit 09/15/23 * Testosterone Level Total 12/15/23 [facility] evaluation + Plan note Future Appointments Appointment Date:03/01/2024 08:00:00 AM Scheduled Provider: Location:[facility] Appointment Type:URO Nurse Visit Appointment Date:03/08/2024 08:15:00 AM Scheduled Provider:Lety Gonzalez MD Location:[facility] Appointment Type:URO Office Visit Future Scheduled Tests Laboratory* PSA Screen, Total 12/15/23 * Hematocrit 09/15/23 * Testosterone Level Total 12/15/23 [facility] evaluation + Plan note Future Appointments Appointment Date:03/08/2024 08:15:00 AM Scheduled Provider:Lety Gonzalez MD Location:[facility] Appointment Type:URO Office Visit [facility] evaluation + Plan note Future Appointments Appointment Date:03/08/2024 08:15:00 AM Scheduled Provider:Lety Gonzalez MD Location:[facility] Appointment Type:URO Office Visit Diagnostic Tests Pending * Testosterone [facility] Appointment Date:03/08/2024 08:15:00 AM Scheduled Provider:Lety Gonzalez MD Location:[facility] Appointment Type:URO Office Visit Diagnostic Tests Pending * HgbA1c 03/01/24 [facility] Appointment Date:03/22/2024 08:30:00 AM Scheduled Provider: Location:[facility] Appointment Type:URO Nurse Visit Appointment Date:04/05/2024 08:00:00 AM Scheduled Provider: Location:[facility] Appointment Type:URO Nurse Visit Appointment Date:08/23/2024 10:00:00 AM Scheduled Provider:Lety Gonzalez MD Location:[facility] Appointment Type:URO Office Visit Future Scheduled Tests Laboratory* Testosterone Level Total 09/08/24 [facility] evaluation + Plan note Future Appointments Appointment Date:04/05/2024 08:00:00 AM Scheduled Provider: Location:[facility] Appointment Type:URO Nurse Visit Appointment Date:08/23/2024 10:00:00 AM Scheduled Provider:Lety Gonzalez MD Location:[facility] Appointment Type:URO Office Visit Future Scheduled Tests Laboratory* Testosterone Level Total 09/08/24 [facility] evaluation + Plan note Future Appointments Appointment Date:04/19/2024 08:00:00 AM Scheduled Provider: Location:[facility] Appointment Type:URO Nurse Visit Appointment Date:08/23/2024 10:00:00 AM Scheduled Provider:Lety Gonzalez MD Location:[facility] Appointment Type:URO Office Visit Future Scheduled Tests Laboratory* Testosterone Level Total 09/08/24 [facility] evaluation + Plan note Future Appointments Appointment Date:05/03/2024 09:00:00 AM Scheduled Provider: Location:[facility] Appointment Type:URO Nurse Visit Appointment Date:08/23/2024 10:00:00 AM Scheduled Provider:Lety Gonzalez MD Location:[facility] Appointment Type:URO Office Visit Future Scheduled Tests Laboratory* Testosterone Level Total 09/08/24 [facility] evaluation + Plan note Future Appointments Appointment Date:05/17/2024 08:00:00 AM Scheduled Provider: Location:[facility] Appointment Type:URO Nurse Visit Appointment Date:08/23/2024 10:00:00 AM Scheduled Provider:Lety Gonzalez MD [facility] Appointment Type:URO Office Visit Future Scheduled Tests Laboratory* Testosterone Level Total 09/08/24 [facility] evaluation + Plan note Future Appointments Appointment Date:05/31/2024 08:00:00 AM Scheduled Provider: [facility] Appointment Type:URO Nurse Visit Appointment Date:08/23/2024 10:00:00 AM Scheduled Provider:Lety Gonzalez MD [facility] Appointment Type:URO Office Visit Future Scheduled Tests Laboratory* Testosterone Level Total 09/08/24 [facility] evaluation + Plan note Future Appointments Appointment Date:06/14/2024 08:00:00 AM Scheduled Provider: [facility] Appointment Type:URO Nurse Visit Appointment Date:06/28/2024 08:00:00 AM Scheduled Provider: Location:[facility] [place] Appointment Type:URO Nurse Visit Appointment Date:07/12/2024 08:00:00 AM Scheduled Provider: [facility] Appoint[facility] Type:URO Nurse Visit Appointment Date:07/26/2024 08:00:00 AM Scheduled Provider: [place] [place] Appointment Type:URO Nurse Visit Appointment Date:08/09/2024 08:00:00 AM Scheduled Provider: Location[place] [place] Appointment Type:URO Nurse Visit Appointment Date:08/23/2024 10:00:00 AM Scheduled Provider:Lety Gonzalez MD Location:[facility] [place] Appointment Type:URO Office Visit Future Scheduled Tests Laboratory* Testosterone Level Total 09/08/24 [facility] evaluation + Plan note Future Appointments Appointment Date:06/28/2024 08:00:00 AM Scheduled Provider: Location:[facility] [place] Appointment Type:URO Nurse Visit Appointment Date:07/12/2024 08:00:00 AM Scheduled Provider: Location:[facility] [place] Appointment Type:URO Nurse Visit Appointment Date:07/26/2024 08:00:00 AM Scheduled Provider: Location:[facility] [place] Appointment Type:URO Nurse Visit Appointment Date:08/09/2024 08:00:00 AM Scheduled Provider: Location:[facility] [place] Appointment Type:URO Nurse Visit Appointment Date:08/23/2024 10:00:00 AM Scheduled Provider:Lety Gonzalez MD Location:[facility] [place] Appointment Type:URO Office Visit Appointment Date:08/29/2024 09:00:00 AM Scheduled Provider: Location:[facility] [place] Appointment Type:URO Nurse Visit Appointment Date:09/20/2024 09:45:00 AM Scheduled Provider:Lety Gonzalez MD Location:[facility] [place] Appointment Type:URO Office Visit Future Scheduled Tests Laboratory* Testosterone Level Total 09/08/24 [facility] evaluation + Plan note Future Appointments Appointment Date:07/12/2024 08:00:00 AM Scheduled Provider: Location:[facility] [place] Appointment Type:URO Nurse Visit Appointment Date:07/26/2024 08:00:00 AM Scheduled Provider: Location:[facility] [place] Appointment Type:URO Nurse Visit Appointment Date:08/09/2024 08:00:00 AM Scheduled Provider: Location:[facility] [place] Appointment Type:URO Nurse Visit Appointment Date:08/23/2024 10:00:00 AM Scheduled Provider:Lety Gonzalez MD Location:[facility] [place] Appointment Type:URO Office Visit Appointment Date:08/29/2024 09:00:00 AM Scheduled Provider: Location:[facility] [place] Appointment Type:URO Nurse Visit Appointment Date:09/20/2024 09:45:00 AM Scheduled Provider:Lety Gonzalez MD Location:[facility] [place] Appointment Type:URO Office Visit Future Scheduled Tests Laboratory* Testosterone Level Total 09/08/24 [facility] evaluation + Plan note Future Appointments Appointment Date:08/29/2024 09:00:00 AM Scheduled Provider: Location:[facility] Appointment Type:URO Nurse Visit Appointment Date:09/20/2024 09:45:00 AM Scheduled Provider:Lety Gonzalez MD Location:[facility] Appointment Type:URO Office Visit Future Scheduled Tests Laboratory* Testosterone Level Total 09/08/24 [facility] evaluation + Plan note Future Appointments Appointment Date:09/07/2024 09:00:00 AM Scheduled Provider: Location:[facility] Appointment Type:URO Nurse Visit Appointment Date:09/13/2024 08:00:00 AM Scheduled Provider: Location:[facility] Appointment Type:URO Nurse Visit Appointment Date:09/20/2024 09:45:00 AM Scheduled Provider:Lety Gonzalez MD Location:[facility] Appointment Type:URO Office Visit Future Scheduled Tests Laboratory* Testosterone Level Total 09/08/24 [facility] evaluation + Plan note Future Appointments Appointment Date:09/13/2024 08:00:00 AM Scheduled Provider: Location:[facility] Appointment Type:URO Nurse Visit Appointment Date:09/20/2024 09:45:00 AM Scheduled Provider:Lety Gonzalez MD Location:[facility] Appointment Type:URO Office Visit Future Scheduled Tests Laboratory* Testosterone Level Total 09/08/24 [facility] evaluation + Plan note Future Appointments Appointment Date:09/20/2024 09:45:00 AM Scheduled Provider:Lety Gonzalez MD Location:[facility] Appointment Type:URO Office Visit Future Scheduled Tests Laboratory* Testosterone Level Total 09/08/24 [facility] evaluation + Plan note Future Appointments Appointment Date:09/20/2024 09:45:00 AM Scheduled Provider:Lety Gonzalez MD Location:[facility] Appointment Type:URO Office Visit Diagnostic Tests Pending * Testosterone Level Total 09/13/24 Future Scheduled Tests Laboratory* Testosterone Level Total 09/08/24 [facility] Evaluation + Plan note Future Appointments Appointment Date:10/18/2024 08:30:00 AM Scheduled Provider: Location:[facility] Appointment Type:URO Nurse Visit Appointment Date:10/27/2024 08:00:00 AM Scheduled Provider:Lety Gonzalez MD Location:[facility] Appointment Type:URO Office Visit Appointment Date:12/20/2024 09:45:00 AM Scheduled Provider:Lety Gonzalez MD Location:[facility] Appointment Type:URO Office Visit Future Scheduled Tests Laboratory* Testosterone Level Total 09/08/24 [facility] evaluation + Plan note Future Appointments Appointment Date:10/27/2024 08:00:00 AM Scheduled Provider:Lety Gonzalez MD Location:[facility] Appointment Type:URO Office Visit Appointment Date:12/20/2024 09:45:00 AM Scheduled Provider:Lety Gonzalez MD Location:[facility] Appointment Type:URO Office Visit Diagnostic Tests Pending * Testosterone Level Total 10/18/24 Future Scheduled Tests Laboratory* Testosterone Level Total 09/08/24 [facility] Evaluation + Plan note Future Appointments Appointment Date:10/27/2024 08:00:00 AM Scheduled Provider:Lety Gonzalez MD Location:[facility] Appointment Type:URO Office Visit Appointment Date:12/20/2024 09:45:00 AM Scheduled Provider:Lety Gonzalez MD Location:[facility] Appointment Type:URO Office Visit Future Scheduled Tests Laboratory* Testosterone Level Total 09/08/24 [facility] evaluation + Plan note Future Appointments Appointment Date:11/08/2024 08:30:00 AM Scheduled Provider: Location:[facility] Appointment Type:URO Nurse Visit Appointment Date:04/18/2025 08:00:00 AM Scheduled Provider: [facility] Appointment Type:URO Nurse Visit Appointment Date:05/02/2025 08:45:00 AM Scheduled Provider:Lety Gonzalez MD Location:[facility] Appointment Type:URO Office Visit Future Scheduled Tests Laboratory* Testosterone Level Total 09/08/24 * Testosterone Level Total 04/06/25 [facility] Evaluation + Plan note Future Appointments Appointment Date:11/22/2024 08:00:00 AM Scheduled Provider: [facility] Appointment Type:URO Nurse Visit Appointment Date:12/06/2024 08:00:00 AM Scheduled Provider: [facility] Appointment Type:URO Nurse Visit Appointment Date:04/25/2025 08:00:00 AM Scheduled Provider: [facility] Appointment Type:URO Nurse Visit Appointment Date:05/02/2025 08:45:00 AM Scheduled Provider:Lety Gonzalez MD Location:[facility] Appointment Type:URO Office Visit Future Scheduled Tests Laboratory* Testosterone Level Total 09/08/24 * Testosterone Level Total 04/06/25 [facility] evaluation + Plan note Future Appointments Appointment Date:01/31/2025 08:30:00 AM Scheduled Provider: [facility] Appointment Type:URO Nurse Visit Appointment Date:04/25/2025 08:00:00 AM Scheduled Provider: [facility] Appointment Type:URO Nurse Visit Appointment Date:05/02/2025 08:45:00 AM Scheduled Provider:Lety Gonzalez MD Location[facility] Appointment Type:URO Office Visit Future Scheduled Tests Laboratory* Testosterone Level Total 09/08/24 * Testosterone Level Total 04/06/25 [facility] evaluation + Plan note Future Appointments Appointment Date:02/14/2025 08:00:00 AM Scheduled Provider: Location:[facility] Appointment Type:URO Nurse Visit Appointment Date:04/25/2025 08:00:00 AM Scheduled Provider: Location:[facility] Appointment Type:URO Nurse Visit Appointment Date:05/02/2025 08:45:00 AM Scheduled Provider:Lety Gonzalez MD Location:[facility] Appointment Type:URO Office Visit Future Scheduled Tests Laboratory* Testosterone Level Total 09/08/24 * Testosterone Level Total 04/06/25 [facility] evaluation + Plan note Future Appointments Appointment Date:04/25/2025 08:00:00 AM Scheduled Provider: Location:[facility] Appointment Type:URO Nurse Visit Appointment Date:05/02/2025 08:45:00 AM Scheduled Provider:Lety Gonzalez MD Location:[facility] Appointment Type:URO Office Visit Future Scheduled Tests Laboratory* Testosterone Level Total 09/08/24 * Testosterone Level Total 04/06/25 [facility] evaluation + Plan note Future Appointments Appointment Date:03/07/2025 08:00:00 AM Scheduled Provider: [facility] Appointment Type:URO Nurse Visit Appointment Date:03/21/2025 08:00:00 AM Scheduled Provider: [facility] Appointment Type:URO Nurse Visit Appointment Date:04/04/2025 08:00:00 AM Scheduled Provider: [facility] Appointment Type:URO Nurse Visit Appointment Date:04/25/2025 08:00:00 AM Scheduled Provider: Location:[facility] Appointment Type:URO Nurse Visit Appointment Date:05/02/2025 08:45:00 AM Scheduled Provider:Lety Gonzalez MD [facility] Appointment Type:URO Office Visit Future Scheduled Tests Laboratory* Testosterone Level Total 09/08/24 * Testosterone Level Total 04/06/25 [facility] evaluation + Plan note Future Appointments Appointment Date:03/21/2025 08:00:00 AM Scheduled Provider: Location:[facility] Appointment Type:URO Nurse Visit Appointment Date:04/04/2025 08:00:00 AM Scheduled Provider: Location:[facility] Appointment Type:URO Nurse Visit Appointment Date:04/25/2025 08:00:00 AM Scheduled Provider: Location:[facility] Appointment Type:URO Nurse Visit Appointment Date:05/02/2025 11:00:00 AM Scheduled Provider:Lety Gonzalez MD Location:[facility] Appointment Type:URO Office Visit Future Scheduled Tests Laboratory* PSA Screen, Total 04/15/25 * Hematocrit 04/15/25 * Testosterone Level Total 09/08/24 * Testosterone Level Total 04/06/25 [facility] evaluation + Plan note Future Appointments Appointment Date:04/04/2025 08:00:00 AM Scheduled Provider: Location:[facility] Appointment Type:URO Nurse Visit Appointment Date:04/25/2025 08:00:00 AM Scheduled Provider: Location:[facility] Appointment Type:URO Nurse Visit Appointment Date:05/02/2025 11:00:00 AM Scheduled Provider:Lety Gonzalez MD Location:[facility] Appointment Type:URO Office Visit Future Scheduled Tests Laboratory* PSA Screen, Total 04/15/25 * Hematocrit 04/15/25 * Testosterone Level Total 09/08/24 * Testosterone Level Total 04/06/25 [facility] Future Appointments Appointment Date:04/18/2025 08:00:00 AM Scheduled Provider: Location:[facility] Appointment Type:URO Nurse Visit Appointment Date:04/25/2025 08:00:00 AM Scheduled Provider: Location:[facility] Appointment Type:URO Nurse Visit Appointment Date:05/02/2025 11:00:00 AM Scheduled Provider:Lety Gonzalez MD Location:[facility] Appointment Type:URO Office Visit Future Scheduled Tests Laboratory* PSA Screen, Total 04/15/25 * Hematocrit 04/15/25 * Testosterone Level Total 09/08/24 * Testosterone Level Total 04/06/25 [facility] evaluation + Plan note Future Appointments Appointment Date:04/25/2025 08:00:00 AM Scheduled Provider: Location:[facility] Appointment Type:URO Nurse Visit Appointment Date:05/02/2025 11:00:00 AM Scheduled Provider:Lety Gonzalez MD Location:[facility] [place] Appointment Type:URO Office Visit Appointment Date:05/16/2025 08:00:00 AM Scheduled Provider: Location[place] [place] Appointment Type:URO Nurse Visit Appointment Date:05/30/2025 08:00:00 AM Scheduled Provider: Location:[facility] [place] Appointment Type:URO Nurse Visit Appointment Date:06/13/2025 08:00:00 AM Scheduled Provider: Location:[facility] [place] Appointment Type:URO Nurse Visit Appointment Date:06/27/2025 08:30:00 AM Scheduled Provider: Location:[facility] [place] Appointment Type:URO Nurse Visit Future Scheduled Tests Laboratory* PSA Screen, Total 04/15/25 * Hematocrit 04/15/25 * Testosterone Level Total 09/08/24 * Testosterone Level Total 04/06/25 [facility] evaluation + Plan note Future Appointments Appointment Date:05/02/2025 11:00:00 AM Scheduled Provider:Lety Gonzalez MD Location:[facility] [place] Appointment Type:URO Office Visit Appointment Date:05/16/2025 08:00:00 AM Scheduled Provider: Location:[facility] [place] Appointment Type:URO Nurse Visit Appointment Date:05/30/2025 08:00:00 AM Scheduled Provider: Location:[facility] [place] Appointment Type:URO Nurse Visit Appointment Date:06/13/2025 08:00:00 AM Scheduled Provider: Location:[facility] [place] Appointment Type:URO Nurse Visit Appointment Date:06/27/2025 08:30:00 AM Scheduled Provider: Location:[facility] [place] Appointment Type:URO Nurse Visit Future Scheduled Tests Laboratory* Testosterone Level Total 09/08/24 [facility] evaluation + Plan note Future Appointments Appointment Date:05/16/2025 08:00:00 AM Scheduled Provider[facility] Type[facility] Nurse Visit Appointment Date:05/30/2025 08:00:00 AM Scheduled Provider: Location:[facility] Appointment Type:URO Nurse Visit Appointment Date:06/13/2025 08:00:00 AM Scheduled Provider[facility] Type:URO Nurse Visit Appointment Date:06/27/2025 08:30:00 AM Scheduled Provider: Location:[facility] Appointment Type:URO Nurse Visit Appointment Date:05/01/2026 08:00:00 AM Scheduled Provider:Lety Gonzalez MD Location:[facility] Appointment Type:URO Office Visit Diagnostic Tests Pending * Testosterone Level Total 05/02/25 * Hematocrit 05/02/25 * PSA Total 05/02/25 Future Scheduled Tests Laboratory* Testosterone Level Total 09/08/24 [facility] evaluation + Plan note Future Appointments Appointment Date:05/30/2025 08:00:00 AM Scheduled Provider: [facility] Type:URO Nurse Visit Appointment Date:06/13/2025 08:00:00 AM Scheduled Provider: [facility] App[facility] Type:URO Nurse Visit Appointment Date:06/27/2025 08:30:00 AM Scheduled Provider: [facility] App[facility] Type:URO Nurse Visit Appointment Date:05/01/2026 08:00:00 AM Scheduled Provider:Lety Gonzalez MD [facility] Type:URO Office Visit Future Scheduled Tests Laboratory* Testosterone Level Total 09/08/24 [facility] evaluation + Plan note Future Appointments Appointment Date:06/13/2025 08:00:00 AM Scheduled Provider: Location:[facility] [place] Appointment Type:URO Nurse Visit Appointment Date:06/27/2025 08:30:00 AM Scheduled Provider: Location:[facility] Appointment Type:URO Nurse Visit Appointment Date:05/01/2026 08:00:00 AM Scheduled Provider:Lety Gonzalez MD Location:[facility] Appointment Type:URO Office Visit Future Scheduled Tests Laboratory* Testosterone Level Total 09/08/24 [facility] evaluation + Plan note Future Appointments Appointment Date:06/27/2025 08:30:00 AM Scheduled Provider: Location:[facility] Appointment Type:URO Nurse Visit Appointment Date:07/11/2025 08:00:00 AM Scheduled Provider: Location:[facility] Appointment Type:URO Nurse Visit Appointment Date:07/25/2025 08:00:00 AM Scheduled Provider: Location:[facility] Appointment Type:URO Nurse Visit Appointment Date:05/01/2026 08:00:00 AM Scheduled Provider:Lety Gonzalez MD Location:[facility] Appointment Type:URO Office Visit Future Scheduled Tests Laboratory* Testosterone Level Total 09/08/24 [facility] evaluation + Plan note Future Appointments Appointment Date:07/11/2025 08:00:00 AM Scheduled Provider: Location:[facility] Appointment Type:URO Nurse Visit Appointment Date:07/25/2025 08:00:00 AM Scheduled Provider: Location:[facility] Appointment Type:URO Nurse Visit Appointment Date:05/01/2026 08:00:00 AM Scheduled Provider:Lety Gonzalez MD Location:[facility] Appointment Type:URO Office Visit Future Scheduled Tests Laboratory* Testosterone Level Total 09/08/24 [facility] evaluation noteNo [employer] Other Evaluation note* Diagnosis Onset Date Resolution Status CAD (coronary artery disease) acuteDiabetesacuteGERD (gastroesophageal reflux disease)acuteHypertensionacute Screening for colon canceracuteScreening PSA (prostate specific antigen)acute [facility] Work Phone: Evaluation note* Diagnosis Onset Date Resolution Status CAD (coronary artery disease) acuteDiabetesacuteGERD (gastroesophageal reflux disease)acuteHypertensionacute Screening for colon canceracuteScreening PSA (prostate specific antigen)acute FatigueacuteHypertensionacuteType II diabetes mellitusacute [facility] Work Phone: Evaluation note* Diagnosis Onset Date Resolution Status Claudication acuteFatigueacuteHypertensionacuteType II diabetes mellitusacute [facility] Work Phone: Evaluation note* Diagnosis Onset Date Resolution Status Claudication acuteFatigueacuteHypertensionacuteType II diabetes mellitusacuteBilateral lower extremity edemaacuteHemosiderin pigmentation of lower extremity due to varicose veinsacuteObesityacuteSymptomatic varicose veins of both lower extremitiesacute Wound of footacute [facility] Work Phone: Evaluation note* Diagnosis Foot ulcer, left, with fat layer exposed ([facility])- Primary Diabetes 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 polyneuropathy, unspecified whether terminal operations manager insulin use ([facility]) Foot ulcer, right, with fat layer exposed ([facility]) documented in this encounter [facility] HealthcareEvaluation note* Diagnosis Onset Date Resolution Status Bilateral lower extremity edema acuteHemosiderin pigmentation of lower extremity due to varicose veinsacute ObesityacuteSymptomatic varicose veins of both lower extremitiesacuteWound of footacuteCAD (coronary artery disease)acuteDiabetic foot ulceracuteGERD (gastroesophageal reflux disease)acuteHemosiderin pigmentation of lower extremity due to varicose veinsacuteHypertensionacuteObesityacuteType II diabetes mellitusacute [facility] Work Phone: Evaluation note* Diagnosis Diabetes 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 polyneuropathy, unspecified whether long-term insulin use ([facility])- Primary Foot ulcer, right, with fat layer exposed ([facility]/HCC) Foot ulcer, left, with fat layer exposed ([facility]/HCC) PVD (peripheral vascular disease) ([facility]) Unspecified peripheral vascular disease documented in this encounter [facility] HealthcareEvaluation note* Diagnosis Diabetes 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 polyneuropathy, unspecified whether terminal operations manager insulin use ([facility])- Primary Foot ulcer, right, with fat layer exposed ([facility]/HCC) documented in this encounter [facility] HealthcareEvaluation note* Diagnosis Diabetes 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 polyneuropathy, unspecified whether long-term insulin use (CMS/HCC)- Primary Foot ulcer, right, with fat layer exposed (CMS/HCC) Foot ulcer, left, with fat layer exposed ([facility]/HCC) documented in this encounter [facility] HealthcareEvaluation note* Diagnosis Xerosis cutis- Primary Other specified disease of sebaceous glands Skin fissure Other specified disorder of skin Diabetes 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 polyneuropathy, unspecified whether terminal operations manager insulin use ([facility]) Foot ulcer, right, with fat layer exposed ([facility]) PVD (peripheral vascular disease) ([facility]) Unspecified peripheral vascular disease documented in this encounter [facility] HealthcareEvaluation note* Diagnosis Foot ulcer, right, with fat layer exposed ([facility])- Primary Xerosis cutis Other specified disease of sebaceous glands Skin fissure Other specified disorder of skin Diabetes 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 polyneuropathy, unspecified whether long-term insulin use ([facility]) PVD (peripheral vascular disease) ([facility]) Unspecified peripheral vascular disease documented in this encounter [facility] HealthcareEvaluation note* Diagnosis Xerosis cutis- Primary Other specified disease of sebaceous glands Skin fissure Other specified disorder of skin PVD (peripheral vascular disease) ([facility]) Unspecified peripheral vascular disease Diabetes 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 polyneuropathy, unspecified whether long-term insulin use ([facility]) Foot ulcer, right, with fat layer exposed ([facility]) documented in this encounter [facility] HealthcareEvaluation note* Diagnosis Diabetes 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 polyneuropathy, unspecified whether long-term insulin use ([facility]/HCC)- Primary Foot ulcer, right, with fat layer exposed ([facility]) PVD (peripheral vascular disease) ([facility]) Unspecified peripheral vascular disease documented in this encounter [facility]* Diagnosis Diabetes 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 polyneuropathy, unspecified whether terminal operations manager insulin use ([facility])- Primary Foot ulcer, right, with fat layer exposed ([facility]/HCC) PVD (peripheral vascular disease) (CMS/HCC) Unspecified peripheral vascular disease Xerosis cutis Other specified disease of sebaceous glands documented in this encounter [facility] HealthcareEvaluation note* Diagnosis Small bowel obstruction (CMS-HCC)- Primary Unspecified intestinal obstruction JAM (obstructive sleep apnea) Obstructive sleep apnea (adult) (pediatric) Small bowel obstruction (CMS-HCC) Unspecified intestinal obstruction Primary hypertension Unspecified essential hypertension JAM (obstructive sleep apnea) Obstructive sleep apnea (adult) (pediatric) Hypertension Unspecified essential hypertension DM2 (diabetes mellitus, type 2) ([facility]) CAD (coronary artery disease) Coronary atherosclerosis of unspecified type of vessel, [place] or graft [facility]* Diagnosis Onset Date Resolution Status Admit Date CAD (coronary artery disease) acuteMarch 2024 9:18amHyperlipidemiaacuteMarch 2024 9:18am HypertensionacuteMarch 2024 9:18amType II diabetes mellitusacuteMarch 2024 9:18am [facility] Work Phone: Evaluation noteNo assessment information available [facility] Work Phone: History general Narrative - Reported* Type Description Date Medical History 2nd opinion for vein surgery Medical HistoryHTNMedical HistoryDMMedical HistoryCAD with prior MIMedical HistoryCVIMedical HistoryDepressionMedical HistoryEdema legMedical History Diabetic polyneuropathy associated with other specified diabetes mellitus Surgical Historytoe surgery/ right foot great toeSurgical Historytonsillectomy Surgical Historyheart stent 2Hospitalization HistorytonsillectomyHospitalization Historypneumonia Qu[facility] Other Hospital course Narrative No data available for this section [facility] Hospital Discharge instructions No data available for this section [facility] Discharge instructionsAmbulatory Orders* Referral to Gastroenterology Time Frame: 11/30/23, Location: None Selected [facility] Work Phone: Hospital Discharge instructionsNot on filedocumented in this encounterProGrant Hospital SystemInstructionsNot on filedocumented in this encounterProGrant Hospital SystemProgress note No data available for this section [facility] reason for referral (narrative)No reason for referral information available[facility] Work [facility]: Reason for visit Narrative* Auth/Cert (Routine) SpecialtyDiagnoses / ProceduresReferred By ContactReferred To Contact Diagnoses Small bowel obstruction (CMS-HCC) Arrhythmia Small bowel obstruction Adrienne Rodriguez MD [address] [place] [address] Phone: tel: fax: Referral IDStatusReasonStart DateExpiration DateVisits RequestedVisits [id number] [facility] Summary Purpose Family History Unknown Family Member Name Dates Details Family history of acute myoc ardial infarction: Father(V17.3, Z82.49) Status:ActiveNo pertinent family history: Mother, Sister, Brother(V49.89, Z78.9) Status:Active Unknown Family Member Name Dates Details Family history of acute myoc ardial infarction: Father(V17.3, Z82.49) Status:ActiveNo pertinent family history: Mother, Sister, Brother(V49.89, Z78.9) Status:Active Unknown Family Member Name Dates Details Family history of acute myoc ardial infarction: Father(V17.3, Z82.49) Status:ActiveNo pertinent family history: Mother, Sister, Brother(V49.89, Z78.9) Status:Active Unknown Family Member Name Dates Details No pertinent family history: Mother, Sister, Brother(V49.89, Z78.9) Status:ActiveFamily history of acute myocardial infarction: Father(V17.3, Z82.49) Status:Active Unknown Family Member Name Dates Details Family history of acute myoc ardial infarction: Father(V17.3, Z82.49) Status:ActiveNo pertinent family history: Mother, Sister, Brother(V49.89, Z78.9) Status:Active Relationship Condition Age at Onset Recorded Date/T evangelina Not Specified No pertinent family history Unknown fatherDeceasedUnknownHeart diseaseUnknown Advance Directives Advance Directive Response Recorded Date/ Time Advance Directives No May 10:55am Date ActivatedDate UeydiivanogFlttlxel04/18/2024 4:09 AM07/28/2024 6:17 PM Chief Complaint * JOHNATHAN CORREA [...] for Visit Chief Complaint Amb Documentation Check UpReason for VisitCAD (coronary artery disease) Diabetes GERD (gastroesophageal reflux disease) Hypertension Screening for colon cancer Screening PSA (prostate specific antigen) Chief Complaint Amb Documentation Check Up follow upReason for VisitCAD (coronary artery disease) Diabetes GERD (gastroesophageal reflux disease) Hypertension Screening for colon cancer Screening PSA (prostate specific antigen) Fatigue Hypertension Type II diabetes mellitus Chief Complaint follow up Referred by Dr. Jeffrey for PVDReason for VisitClaudication Fatigue Hypertension Type II diabetes mellitus Chief Complaint Admit Date 3 month f/u-HIGH RISK November 20, 2024 9 :18am Reason for Visit Admit Date CAD (coronary artery disease) November 9:18am Hyperlipidemia November 20, 2024 9:1 8am Hypertension November 20, 2024 9:1 8am Type II diabetes mellitus November 20 9:18am Chief Complaint Admit Date BP Issues-HIGH RISK July 03, 2025 9 :15am Reason for Referral SpecialtyDiagnoses / ProceduresReferred By ContactReferred To ContactRadiology Diagnoses PVD (peripheral vascular disease) ([facility]) Procedures Vascular US lower extremity arterial Doppler complete Gray Cancino DPM [address] [address] Referral IDStatusReasonStart DateExpiration DateVisits RequestedVisits [id number] Review Perform Procedure Additional Source Comments (unrecognized sect ion and [...] section and content) DATE CREATED AUTHOR 08/14/2018 [facility] DATE CREATED AUTHOR AUTHOR'S ORGANIZ ATION 12/24/2022 [facility] DATE CREATED AUTHOR AUTHOR'S ORGANIZ ATION 06/30/2023 [facility] DATE CREATED AUTHOR AUTHOR'S ORGANIZ ATION 03/03/2024 [facility] DATE CREATED AUTHOR AUTHOR'S ORGANIZ ATION 03/04/2024 [facility] DATE CREATED AUTHOR AUTHOR'S ORGANIZ ATION 03/09/2024 [facility] DATE CREATED AUTHOR AUTHOR'S ORGANIZ ATION 03/10/2024 [facility] DATE CREATED AUTHOR AUTHOR'S ORGANIZ ATION 07/15/2024 [facility] DATE CREATED AUTHOR AUTHOR'S ORGANIZ ATION 08/04/2024 [facility] DATE CREATED AUTHOR AUTHOR'S ORGANIZ ATION 09/29/2024 [facility] DATE CREATED AUTHOR AUTHOR'S ORGANIZ ATION 12/23/2024 [facility] DATE CREATED AUTHOR AUTHOR'S ORGANIZ ATION 04/27/2025 [facility] DATE CREATED AUTHOR AUTHOR'S ORGANIZ ATION 06/15/2025 [facility] DATE CREATED AUTHOR AUTHOR'S ORGANIZ ATION 06/28/2025 [facility] Care Team (unrecognized sect ion and content) [...] Start: April 17, 2024 End: April 17, 2024Janna Borja ProviderActiveStart: April 17, 2024 End: April 17, 2024 Team Status: Active Member Role Status Dates Luis Jeffrey MD Primary Care Provider Active Start: November 25, 2023 Katheryn Alegria ProviderActiveStart: November 25, 2023 Team Status: Inactive Member [...] Active Start: May 01, 2024 End: May 01Aicha Valencia ProviderActiveStart: May 01, 2024 End: May 01, 2024Team MemberRelationshipSpecialtyStart DateEnd Date Luis Jeffrey MD [address] [place] [id number] PCP - [facility]05/04/24Team MemberRelationshipSpecialtyStart DateEnd Date Luis Jeffrey MD [address] [place] [address] [facility]05/04/24 Team Status: Inactive Member Role Status Dates Luis Jeffrey MD Primary Care Provide r, Attending Provider Active Start: June 14, 2024 End: June 14, 2024Team MemberRelationshipSpecialtyStart DateEnd Date Luis Jeffrey MD [address] [facility] [place] [address] PCP - GeneralFamily Medicine05/04/24Team MemberRelationshipSpecialtyStart DateEnd Date Luis Jeffrey MD [address] [place] [address] PCP - GeneralFamily Medicine05/04/24Team MemberRelationshipSpecialtyStart DateEnd Date Luis Jeffrey MD [address] [place] [address] PCP - GeneralFamily Medicine05/04/24Team MemberRelationshipSpecialtyStart DateEnd Date Luis Jeffrey MD [address] [place] [address] PCP - GeneralFamily Medicine05/04/24Team MemberRelationshipSpecialtyStart DateEnd Date Luis Jeffrey MD [address] [facility] [place] [address] PCP - GeneralFamily Medicine05/04/24Team MemberRelationshipSpecialtyStart DateEnd Date Luis Jeffrey MD [address] [facility] [place] [address] PCP - GeneralFamily Medicine05/04/24Team MemberRelationshipSpecialtyStart DateEnd Date Luis Jeffrey MD [address] [place] [address] PCP - GeneralFamily Medicine05/04/24 Team Status: Inactive Member Role Status Dates Luis Jeffrey MD Primary Care Provide r, Attending Provider Active Start: November 20, 2024 End: November 20, 2024 Team Status: Active Member Role/Relationship Status Dates Luis Jeffrey MD Primary Care Provider Active Team Status: Inactive Member Role/Relationship Status Dates Luis Jeffrey MD Primary Care Provider Active Start: July 03, 2025 End: July 03, 2025Luis Jeffrey MDAttending ProviderActiveStart: July 03, 2025 End: July 03, 2025 REASON FOR VISIT (unrecogniz ed section and content) ReasonCommentsFollow-upBl ulcer checkReasonCommentsFollow-uplesionsReason CommentsPost-op1st post op, B/L graftReasonCommentsFoot UlcerRt ft ulcerReason CommentsFoot UlcerRt GT toe ulcerReasonCommentsFoot [id number] ulcer F/UReason CommentsFoot PainReasonCommentsFollow-upFollow up bl ulcerReasonComments Follow-up1WK RT ULCERReasonCommentsFollow-up1wk ulcerReasonOnset DateComments Nbiklhw6107/24/2024Small bowel obstruction Goals (unrecognized section and content) Goals may be documented in a n alternate section Scheduled Active and Recently Administ ered Medications (unrecognized section and content) Medication Order// amLODIPine (NORVASC) tablet 5 mg 5 mg, oral, Daily, First dose on Wed07/26/24 at 1415, Look-alike/sound-alike medication - verify indication for use. Avoid grapefruit juice. * 1538 (Given - Provider: Blaire Aldana LPN) * 0938 (Given - Provider: Blaire Aldana LPN) * 0904 (Given - Provider: Francisca Mcfadden LPN) atorvastatin (LIPITOR) tablet 20 mg 20 mg, oral, Daily, First dose on Wed07/26/24 at 0930, Look-alike/sound-alike medication - verify indication for use. * 1033 (Given - Provider: Blaire Aldana LPN) * 0938 (Given - Provider: Blaire Aldana LPN) * 0904 (Given - Provider: Francisca Mcfadden LPN) carvediloL (COREG) tablet 12.5 mg 12.5 mg, oral, 2 times daily with meals, First dose on Wed07/26/24 at 0930, Give with meal or snack. Look-alike/sound-alike medication - verify indication for use. * 1033 (Given - Provider: Blaire Aldana LPN) * 1728 (Given - Provider: Blaire Aldana LPN) * 0938 (Given - Provider: Blaire Aldana LPN) * 1647 (Given - Provider: Blaire Aldana LPN) * 0904 (Given - Provider: Francisca Mcfadden LPN) citalopram (CeleXA) tablet 40 mg 40 mg, oral, Daily, First dose on Wed07/26/24 at 0930, Look-alike/sound-alike medication - verify indication for use. * 1033 (Given - Provider: Blaire Aldana LPN) * 0938 (Given - Provider: Blaire Aldana LPN) * 0904 (Given - Provider: Francisca Mcfadden LPN) [...] of insulin prior to administration. Prandial/supplemental Insulin. Pre- filled pens stable 28 days at room temperature. Insulin lispro should be ad ministered within 15 minutes before or immediately after a meal. * 0000 (Not Given - Provider: Luis Pope RN - Reason: Order parameters not met) * 0600 (Not Given - Provider: Luis Pope RN - Reason: Order parameters not met) * 1242 (Given - Provider: Blaire Aldana LPN) insulin lispro (HumaLOG) injection 2-10 Units 2-10 Units, subcutaneous, 4 times daily with meals and nightly, First dose (after last modification) on Wed07/26/24 at 1700, For blood glucose 151-200 mg/dL, give 2 units. For blood glucose 201-250 mg/dL, give 4 units. For blood glucose 251-300 mg/dL, give 6 units. For blood glucose 301-350 mg/dL,give 8 units. For blood glucose 351-400 mg/dL, give 10 units. Notify prescriber if blood glucose greater than 400 mg/dL. Look-alike/sound-alike medication - verify indication for use. Prime with 2 units of insulin prior to administration. Prandial/supplemental Insulin. Pre-filled pens stable 28 days at room temperature. Insulin lispro should be administered within 15 minutes before or immediatelyafter a meal. * 1700 (Not Given - Provider: Blaire Aldana LPN - Reason: Order parameters not met - Comment: 143 mg/dl) * 2200 (Not Given - Provider: Luis Pope RN - Reason: Order parameters not met) * 0800 (Not Given - Provider: Blaire Aldana LPN - Reason: Order parameters not met) * 1306 (Given - Provider: Blaire Aldana LPN) * 1649 (Given - Provider: Blaire Aldana LPN) * 2233 (Given - Provider: Erwin Starkey RN) * 0800 (Not Given - Provider: Francisca Mcfadden LPN - Reason: Order parameters not met - Comment: bs 149) * 1230 (Given - Provider: Francisca Mcfadden LPN) lisinopriL (PRINIVIL,ZESTRIL) tablet 5 mg 5 mg, oral, Daily, First dose on Wed07/26/24 at 1415, Look-alike/sound-alike medication - verify indication for use. * 1538 (Given - Provider: Blaire Aldana LPN) * 0938 (Given - Provider: Blaire Aldana LPN) * 0904 (Given - Provider: Francisca Mcfadden LPN) metoprolol (LOPRESSOR) injection 5 mg (CANCELED) 5 mg, intravenous, Every 6 hours scheduled, First dose (after last modification) on Wed07/25/24 nd2477, Hold for HR <60 bpm or SBP <100 mmHg Look-alike/sound-alike medication - verify indication for use. * 0052 (Given - Provider: Luis Pope RN) * 0505 (Given - Provider: Luis Pope RN) pantoprazole (PROTONIX) EC tablet 40 mg 40 mg, oral, Every morning before breakfast, First dose on Wed07/28/24 at 0700, Look-alike/sound-alike medication - verify indication for use. If patient is receiving enteral feeding, consider alternative PPI or continue IV pantoprazole until the delayed-release tablet can be taken orally, Indication: GERD * 0600 (Given - Provider: Erwin Starkey RN) pantoprazole (PROTONIX) injection 40 mg (CANCELED) 40 mg, intravenous, Every 24 hours scheduled, First dose on Wed07/25/24 at 1515, GERD Look-alike/sound-alike medication - verify indication for use., Indication: Other (JEFFERSON) * 0919 (Given - Provider: Arabella Rousseau RN) * 0900 (Not Given - Provider: Blaire Aldana LPN - Reason: See Provider Order) sodium chloride 0.9 % flush 3 mL 3 mL, intravenous, Every 12 hours scheduled, First dose on Wed07/24/24 at 0900 * 0900 (Not Given - Provider: Blaire Aldana LPN - Reason: IV infusing) * 2053 (Given - Provider: Luis Pope RN) * 0938 (Given - Provider: Blaire Aldana LPN) * 2234 (Given - Provider: Erwin Starkey RN) * 0908 (Given - Provider: Francisca Mcfadden LPN) Medication Order lactated ringers infusion 125 mL/hr, intravenous, Continuous, Starting on Wed07/24/24 at 0415, For 1 day lactated ringers infusion () 125 mL/hr, intravenous, Continuous, Starting on Wed07/25/24 at 0845, For 1 day * 0320 (Stop Bag - Provider: Blaire Aldana LPN) * 0320 (New Bag - Provider: Luis Pope RN) * 0526 (Paused - Provider: Blaire Aldana LPN) * 0532 (Restarted - Provider: Blaire Aldana LPN) * 0801 (Paused - Provider: Blaire Aldana LPN) * 0808 (Restarted - Provider: Blaire Aldana LPN) * 0915 (Paused - Provider: Blaire Aldana LPN) * 0917 (Restarted - Provider: Blaire Aldana LPN) * 1039 (Stop Bag - Provider: Blaire Aldana LPN) Medication Order07/26/20230906// acetaminophen (TYLENOL EXTRA STRENGTH) tablet 500 mg 500 mg, oral, Every 6 hours PRN, mild pain - pain scale 1-3, headaches, temperature greater than 38C, Starting on Wed07/24/24 at 0407, [Warning: Total Acetaminophen not to exceed more than 4 grams (4000 mg) in 24 hours] * 1738 (Given - Provider: Blaire Aldana LPN) dextrose [...] glucose less than 70 mg/dL and unconscious orNPO with IV access, Starting on Wed07/24/24 at 0407, Push over 1-3 minutes STAT. If conscious and not NPO, immediately follow with meal tray or high protein (7 grams) snack if tray not available. IfNPO, initiate 5% dextrose in water at 100 [...] not available. If NPO, initiate IV 5% Dext geraldine/Water at 100 mL/hr and contact prescriber for [...] 0.5 mmol/L., Starting on Wed07/24/24 at 1016, Recheckmagnesium level 4 hours after infusion complete. With each magnesium result continue the replacement orders as needed. * 0240 (New Bag - Provider: Erwin Starkey RN) * 0440 (Stop Bag - Provider: Erwin Starkey, SHARONDA) magnesium sulfate IVPB 4000 mg/100 mL in [...] GFR 30 mL/min or greater=40 mEq. For potassiumlevel 3 mmol/L or less and GFR 30 mL/min or greater=50 mEq. Do not crush or chew. * 0904 (Given - Provider: Francisca Mcfadden LPN) potassium chloride (KAYCIEL) 20 [...] GFR 30 mL/min or greater=40 mEq. For potassiumlevel 3 mmol/L or less and GFR 30 mL/min or greater=50 mEq. Must dilute before use - Mix in 3-8 ounces of water or juice before administration When administering in feeding tube, flush before and after per policy and monitor potassium levels * 0904 (See Alternative - Provider: Francisca Mcfadden LPN) potassium chloride [...] mEq over a minimum of 1 hour. * 0904 (See Alternative - Provider: Francisca Mcfadden LPN) prochlorperazine (COMPAZINE) injection 5 mg 5 mg, intravenous, Every 6 hours PRN, nausea, vomiting, Starting on Wed07/24/24 at 0355, When administered via IV Push, do not exceed 5 mg per minute sodium chloride 0.9 % flush 3 mL 3 mL, intravenous, As needed, line care, before and after each intermittent use, Starting on Wed07/24/24 at 0407 Order Group 1: potassium chloride (K-TAB,KLOR-CON) CR [...] GFR 30 mL/min or greater=40 mEq. For potassiumlevel 3 mmol/L or less and GFR 30 [...] GFR 30 mL/min or greater=40 mEq. For potassiumlevel 3 mmol/L or less and GFR 30 [...] BE BASED ON THE PRIMARY CLINICAL RECORDS. [facility] [employer] [facility]. provides no warranty or guarantee of the accuracy or completeness of information in this document.
--- OUTSIDE RECORDS SUMMARY | 2025-07-04 06:33 | XMS_ITS | Clinical Summary ---
Author Organization [facility] Address [address] [place] [address] Phone Care Team Providers Care Butter Printer Name Role Phone Dasia Velez MD Primary Care Provider [phone] Allergies Active AllergyReactionsCriticalityNoted WnhhBdxfdnsrUcjyszuksTxsxbapc96/08/2024 Medications MedicationSigDispense QuantityRefillsLast FilledStart DateEnd DateStatus atorvastatin (Lipitor) 10 mg tablet Take 1 tablet (10 mg) by mouth once daily at bedtime.Active amLODIPine (Norvasc) 5 mg tablet Take 1 tablet (5 mg) by mouth once daily.06/15/2022ctive pioglitazone (Actos) 15 mg tablet Take 1 tablet (15 mg) by mouth once daily.Active citalopram (CeleXA) 40 mg tablet Take 1 tablet (40 mg) by mouth once daily.Active glipiZIDE XL (Glucotrol XL) 10 mg 24 hr tablet Take 1 tablet (10 mg) by mouth once daily. Do not crush, chew, or split.Active hyoscyamine ER (Levbid) 0.375 mg 12 hr tablet Take 1 tablet (0.375 mg) by mouth every 12 hours if needed for cramping. Do not crush or chew.Active carvedilol (Coreg) 12.5 mg tablet Indications:Acute combined systolic and diastolic heart failure (Multi)TAKE 1 TABLET BY MOUTH TWICE A DAY 180 tablet 5Active Active Problems ProblemNoted DateDiagnosed DateDiabetes adjpdwfs92/08/2024Essential hypertension 10/14/2023History of PTCA10/14/20237697Bhlcakryvlsjxp86/08/2024Two-vessel coronary artery ktkexdb3910/14/2023 Encounters DateTypeDepartmentCare AyqwCffshiyptzi76/20/2025Refill [address] [address] Gabino Deluca, Acute combined systolic and diastolic heart failure (Multi)04/09/2025Telephone [address] [address] Generic Provider, No Assigned Pcp, Error (VOID this visit)04/08/2025Refill [address] [address] Gabino Deluca, Acute combined systolic and diastolic heart failure (Multi)from Last 3 Months Family History Medical HistoryRelationNameCommentsNo Known ProblemsBrothermyocardialinfarction FatherNo Known ProblemsMotherNo Known ProblemsSisterRelationNameStatusComments BrotherFatherMotherSister Social History Tobacco UseTypesPacks/DayYears UsedDateSmoking Tobacco: FormerCigarettes Tobacco Cessation:Counseling Given: Not Answered Alcohol UseStandard Drinks/WeekCommentsNot Currently0 (1 standard drink = 0.6 oz pure alcohol)Sex and Gender InformationValueDate RecordedSex Assigned at Not on fileLegal CbbFkmv10/26/2022 12:58 PM ESTGender IdentityNot on fileSexual OrientationNot on file Last Filed Vital Signs Vital SignReadingTime TakenCommentsBlood Vwrfuppk029/6404 9:53 AM EDT Ljsfc3852 9:53 AM EDTTemperature--Respiratory Rate--Oxygen Saturation-- Inhaled Oxygen Concentration--Rrynyh796 kg (313 lb)12/22/2022 9:53 AM EDTHeight 174 cm (5' 8.5 )12/22/2022 9:53 AM EDTBody Mass Index46.9012/22/2022 9:53 AM EDT Plan of Treatment Health MaintenanceDue DateLast DoneCommentsCT Sggynuoafbsv46/10/1961Colonoscopy 1Colorectal Cancer Yugpymsqg08/10/1961reatinine Level1960 Diabetes: Hemoglobin A1C1Diabetes: Urine Protein Uqgynptwo94/10/1961 Rgqqcotlgnsoga22/10/1961FIT-DNA (Cologuard)1960FIT1960HIV Screening 1Lipid Panel1960otassium Level1960 3241Xjxpmsjqoomhk94/10/1961 Yearly Adult Kbjpfxql88/10/1961MMR Vaccines (1 of 1 - Standard series)1961 Diabetes: Retinopathy Eocltqtel45/10/1971Hepatitis C Kaclxjyyi24/10/1979 Pneumococcal Vaccine (1 of 2 - PCV)1979DTaP/Tdap/Td Vaccines (1 - Tdap) 1982PSA Prostate Cancer Ldkbnwxku29/10/2011RSV High Risk: (Elderly (60+) or Population) (1 - Risk 50-74 years 1-dose series)2010Zoster Vaccines (1 of 2)2010Influenza Vaccine (#1)5COVID-19 Vaccine (2 - season)HIB VaccinesAged OutNo longer eligible based on patient's age to complete this topicHPV VaccinesAged OutNo longer eligible based on patient's age to complete this topicHepatitis A VaccinesAged OutNo longer eligible based on patient's age to complete this topicHepatitis B VaccinesAged OutNo longer eligible based on patient's age to complete this topic IPV VaccinesAged OutNo longer eligible based on patient's age to complete this topicMeningococcal VaccineAged OutNo longer eligible based on patient's age to complete this topicRotavirus VaccinesAged OutNo longer eligible based on patient's age to complete this topic Care Teams Team MemberRelationshipSpecialtyStart DateEnd Date Dasia Velez MD [address] [place] [address] [address] [place] [address] [facility]12/22/22
--- OUTSIDE RECORDS SUMMARY | 2025-07-04 06:33 | XMS_ITS | Clinical Summary ---
Author Organization [facility] Address [id number] [address] [place] [address] Care Team Providers Care Skin Former Name Role Phone Dasia Velez MD Primary Care Provider [phone] Allergies Active AllergyReactionsCriticalityNoted DateCommentsMetforminAnaphylaxisHigh 07/24/2024 Medications MedicationSigDispense QuantityRefillsLast FilledStart DateEnd DateStatus amLODIPine (NORVASC) 5 mg tablet Take 1 tablet (5 mg total) by mouth in the morning.Active atorvastatin (LIPITOR) 20 mg tablet Take 1 tablet (20 mg total) by mouth in the morning.Active carvediloL (COREG) 12.5 mg tablet Take 1 tablet (12.5 mg total) by mouth in the morning and 1 tablet (12.5 mg total) in the evening. Take with meals.Active citalopram (CeleXA) 40 mg tablet Take 1 tablet (40 mg total) by mouth in the morning.Active glipiZIDE (GLUCOTROL XL) 10 mg 24 hr tablet Take 1 tablet (10 mg total) by mouth in the morning.Active hyoscyamine (LEVBID) 0.375 mg 12 hr tablet Take 1 tablet (0.375 mg total) by mouth in the morning and at bedtime.Active lisinopriL (PRINIVIL,ZESTRIL) 5 mg tablet Take 1 tablet (5 mg total) by mouth in the morning.Active omeprazole (PriLOSEC) 40 mg capsule Take 1 capsule (40 mg total) by mouth in the morning.Active pioglitazone (ACTOS) 30 mg tablet Take 1 tablet (30 mg total) by mouth in the morning.Active Active Problems ProblemNoted DateDiagnosed DateOSA (obstructive sleep apnea)07/25/2024 Jdovbkutubva71/19/6206KN1 (diabetes mellitus, type 2)07/25/2024AD (coronary artery disease)07/25/2024Small bowel /18/2024 Social History Tobacco UseTypesPacks/DayYears UsedDateSmoking Tobacco: Never [facility]essed[facility] UtilitiesAnswerDate RecordedIn the past 12 months has the electric, gas, oil, or water company threatened to shut off services in your home?No07/24/2024RAPARE - TransportationAnswerDate RecordedIn the past 12 months, has lack of transportation kept you from medical appointments or from getting medications?No 07/24/2024In the past 12 months, has lack of transportation kept you from meetings, work, or from getting things needed for daily living?No07/24/2024 Housing InstabilityAnswerDate RecordedAre you worried or concerned that in the next two months you may not have stable housing that you own, rent or stay in as a part of a household?No07/24/2024hildcareAnswerDate RecordedChildcareUnknown 02/15/2019EmploymentAnswerDate FdlerbbyEgqfsbalwpToqtxip91/12/2019Hunger ScreeningAnswerDate RecordedWithin the past 12 months we worried whether our food would run out before we got money to buy more.Never True07/24/2024Within the past 12 months the food we bought just didn't last and we didn't have money to get more.Never True07/24/2024Sex and Gender InformationValueDate RecordedSex Assigned at BirthNot on fileLegal AwdFpvs6404/11/2015 11:46 AM EDTGender Identity Not on fileSexual OrientationNot on file Last Filed Vital Signs Vital SignReadingTime TakenCommentsBlood Lqsdxhee625/7407/28/2024 11:26 AM EST Wgmsn273107/28/2024 11:26 AM SAXVmjjdwrxybp23.5 ??C (97.7 ??F)07/28/2024 11:26 AM ESTRespiratory Lrpl855309/27/2023 11:26 AM ESTOxygen Uxtxdsldax74%07/28/2024 11:26 AM ESTInhaled Oxygen Concentration--Cugyxr966.1 kg (317 lb 9.6 oz)07/26/2024 5:00 AM JJJLbfusg235.2 cm (5' 7 )07/24/2024 3:20 AM ESTBody Mass Index49.74 07/24/2024 3:20 AM EST Plan of Treatment Health MaintenanceDue DateLast DoneCommentsDiabetic Ophthalmology Exam1960 Depression Ylqbyfalr16/10/1973Tobacco Vxvesvcwk82/10/1973Adult BMI Follow Up Plan1978Diabetic Foot Exam1978DTaP,Tdap and Td Vaccines (1 - Tdap) 1979Zoster (Shingles) Vaccine (1 of 2)2010COVID-19 Vaccine ( season), 12/01/2020, 11/12/2020Influenza Vaccine 05/07/2025Statin Use: Mzemvsmkgmjmze73Statin Use: Diabetic dult BMI Hauhfihmn81 Medical Devices Not on file Insurance Advance Directives * Full Code (Latest Code Status on File) Date ActivatedDate DctdccjswqpHiomakcs90/18/2024 4:09 AM07/28/2024 6:17 PM Care Teams Team MemberRelationshipSpecialtyStart DateEnd Date Dasia Velez MD [address] [place] [id number] [facility] - [facility]05/06/21
[2025-07-04 07:20] LABS: Hematocrit 48.1 % (42.0-54.0); Hemoglobin 16.2 g/dL (14.0-18.0); Immature Granulocytes Abs Auto 0.03 10^3/uL (0.00-0.03); Immature Granulocytes Pct Auto 0.4 % (0.0-0.5); Lymphocytes Absolute Auto 1.8 10^3/uL (1.2-3.8); Mean Corpuscular HGB Conc 33.7 g/dL (29.9-35.2); Mean Corpuscular Hemoglobin 27.0 pg (25.9-34.0); Mean Corpuscular Volume 80.3 fL (80.0-94.0); Platelet Count 212 10^3/uL (150-450); Red Blood Count 5.99 10^6/uL (4.70-6.10); White Blood Count 8.0 10^3/uL (4.0-11.0)
[2025-07-04 08:04] LABS: Alanine Aminotransferase 27 U/L (16-63); Albumin Globulin Ratio 1.0; Albumin Level 3.6 g/dL (3.4-5.0); Alkaline Phosphatase 77 U/L (46-116); Anion Gap 11.3; Aspartate Amino Transferase 30 U/L (15-37); Blood Urea Nitrogen 17.0 mg/dL (7.0-18.0); Calcium 8.9 mg/dL (8.5-10.1); Carbon Dioxide 29.6 mmol/L (21.0-32.0); Chloride 99 mmol/L (98-107); Cholesterol 101 mg/dL (<=200); Estimated GFR (African America >60 (>=60 mL/min/1.73m^2); Estimated GFR (Non-African Ame >60 (>=60 mL/min/1.73m^2); Globulin 3.7 g/dL; Glucose 212 mg/dL (74-106); HDL Cholesterol 30 mg/dL (40-60); Potassium 4.9 mmol/L (3.5-5.1); Sodium 135 mmol/L (136-145); Total Protein 7.3 g/dL (6.4-8.2); Triglycerides 71 mg/dL (<=150); VLDL CHOLESTEROL 14.2 mg/dL
[2025-07-04 12:00] LABS: Microalbum Creatinine Ratio Ur 11.3 mg/g (0.0-29.9)
== END 2025-07-04 06:26 | disposition home or self-care (01) ==
LOC: LAB 06:29
PROVIDERS: PCP Family Medicine; Visit Provider Family Medicine
DX: I25.10 Atherosclerotic heart disease of native coronary artery without angina pectoris (principal); E11.9 Type 2 diabetes mellitus without complications; I10 Essential (primary) hypertension; Z12.5 Encounter for screening for malignant neoplasm of prostate; E11.621 Type 2 diabetes mellitus with foot ulcer; L97.509 Non-pressure chronic ulcer of other part of unspecified foot with unspecified severity; E78.5 Hyperlipidemia, unspecified
CPT/HCPCS: 36415; 80053; 80061; 82043; 82570; 83036; 85025; G0103

== ENCOUNTER 2025-09-01 11:56 | Inpatient (IN) | payer BC, SELFPAY ==
--- OUTSIDE RECORDS SUMMARY | 2025-08-22 23:59 | XMS_ITS | Continuity of Care Document ---
Author Organization [facility] Address [address] [place] [address] Care Team Providers Care Aprn Name Role Phone LUIS JEFFREY Primary Care Physician Encounter FT_JUANA [id number] Date(s): 08/22/25 - 08/22/25 [facility] [address] [place] [address] Discharge Disposition: Home (Routine DC) Attending Physician: Lety Gonzalez MD Encounter Type: Clinic Allergies, Adverse Reactions, Alerts SubstanceCriticalitySeverityReactionReaction SeverityStatusmetFORMINStomach cramps Diarrhea Active Treatment Plan Future Appointments Appointment Date:09/05/2025 09:30:00 AM Scheduled Provider: Location:[facility] Appointment Type:URO Nurse Visit Appointment Date:05/01/2026 08:00:00 AM Scheduled Provider:Lety Gonzalez MD Location:[facility] Appointment Type:URO Office Visit Future Scheduled Tests Laboratory* Testosterone Level Total 09/08/24 Immunizations Given and Recorded VaccineDateStatusRefusal BhgmfaUMEQ-DkS-3 (COVID-19) mRNA BNT-162b2 ldw196// RyfyuvunRLUL-MqM-6 (COVID-19) mRNA BNT-162b2 vax23//38BpkvijeiMHHC-DzV-3 (COVID-19) mRNA BNT-162b2 vax3/05/27Recorded Not Given VaccineDateStatusRefusal Reasoninfluenza virus vaccine, inactivated09/15/23Not GivenPatient Refuses 1Result Comment: 2022-05-27: TPV60 2Result Comment: 2022-05-27: TPV60 3Result Comment: 2022-05-27: TPV60 Medications amLODIPine 5 mg Tab mg tab(s), Oral, Daily, Refills(s) 0 Start Date: 07/03/21 Status: Ordered Medication Dispense Status: Completed Total Allowed Fills: 1 Fills Dispensed: 0 atorvastatin 10 mg Tab mg tab(s), Oral, Daily, Refills(s) 0 Start Date: 07/03/21 Status: Ordered Medication Dispense Status: Completed Total Allowed Fills: 1 Fills Dispensed: 0 carvedilol 12.5 mg Tab mg tab(s), Oral, BID, Refills(s) 0 Start Date: 07/03/21 Status: Ordered Medication Dispense Status: Completed Total Allowed Fills: 1 Fills Dispensed: 0 citalopram Oral, Daily, Refills(s) 0 Start Date: 07/03/21 Status: Ordered Medication Dispense Status: Completed Total Allowed Fills: 1 Fills Dispensed: 0 glipiZIDE 5 mg Tab mg tab(s), Oral, Daily, Refills(s) 0 Start Date: 07/03/21 Status: Ordered Medication Dispense Status: Completed Total Allowed Fills: 1 Fills Dispensed: 0 lisinopril 5 mg Tab mg tab(s), Oral, Daily, Refills(s) 0 Start Date: 07/03/21 Status: Ordered Medication Dispense Status: Completed Total Allowed Fills: 1 Fills Dispensed: 0 omeprazole 40 mg Cap-DR mg cap(s), Oral, Daily, Refills(s) 0 Start Date: 07/03/21 Status: Ordered Medication Dispense Status: Completed Total Allowed Fills: 1 Fills Dispensed: 0 pioglitazone 30 mg Tab TAKE 1 TABLET BY MOUTH EVERY DAY FOR 30 DAYS Start Date: 03/08/24 Status: Ordered Medication Dispense Status: Completed Total Allowed Fills: 1 Fills Dispensed: 0 Steglatro 15 mg oral tablet mg tab(s), Oral, qAM, Refills(s) 0 Start Date: 07/03/21 Status: Ordered Medication Dispense Status: Completed Total Allowed Fills: 1 Fills Dispensed: 0 testosterone cypionate 200 mg/mL IM Erin 150 mg, IntraMuscular, q2wk, # 10 mL, Refills(s) 5, Pharmacy: [id number], 174, cm, 05/02/2511:10:00 EDT, Height/Length Dosing, 154.4, kg, 05/02/25 11:10:00 EDT, Weight Dosing Start Date: 05/02/25 Status: Ordered Medication Dispense Status: Completed Quantity: 10.0 Unit: mL Total Allowed Fills: 6 Fills Dispensed: 0 Indications: Testicular hypofunction; Problem List ConditionConfirmationCourseEffective DatesStatusHealth [...] Physician Member Role: Primary Care Physician Address: [address] [place] [address] Telecom: Name: Eliane Andrade Member Role: [employer]: Claims Followup Rep (Escrow Agent) Care Team Related Persons Name: CLAUDIA AMBROSIO Name: CLAUDIA AMBROSIO Insurance Providers Guarantor name: JOHNATHAN AMBROSIO Health Plan Information #: 1 Payer: Ronda Payer Identifier: [id number] Member Number: [id number] Group Number: [id number] Subscriber Identifier: [id number] Relationship to Subscriber: self Coverage Type: NA Coverage Verification Date: 25 Telecom: NA Address: [address] [facility] [address] [place] [address]
[2025-09-01] VITALS (10 sets, daily range): BP systolic 114–137; BP diastolic 75–85; PULSE 90–108; TEMP 36.6–36.9; O2SAT 90–96; BMI 51.7; BMI 52.3
--- NOTE | 2025-09-01 12:38 | XR_ITS ---
[address] [address] Patient Name: JOHNATHAN AMBROSIO MRN: [id number] date: 1960 Sex: M Assigned Patient Location: ER Current Patient Location: ED.MAIN Accession/Order Number: [id number] Exam Date: 09/01/2025 13:12 Report Date: 09/01/2025 14:07 At the request of: ALLA LOVE DO Procedure: XR chest 1V Plain film chest Single view HISTORY: Shortness of breath. Right foot swelling COMPARISON: None FINDINGS: SUPPORT DEVICES: None POSTSURGICAL CHANGES: None HEART: Within normal limits PULMONARY JESUS: Within normal limits MEDIASTINUM: Unremarkable LUNGS AND PLEURA: No acute lung process, pleural effusion or pneumothorax identified. Mild atelectasis BONY STRUCTURES: Intact ADDITIONAL FINDINGS None XR/XR chest 1V IMPRESSION: No acute process. Impression dictated by: Nathaniel Mendosa M.D. 09/01/2025 2:07 PM Dictation Location: [facility] Electronically authenticated by: [id number] Y Date: 09/01/2025 14:07
--- OUTSIDE RECORDS SUMMARY | 2025-09-01 12:47 | XMS_ITS | Clinical Summary ---
Author Organization [facility] Address [address] [place] [address] Care Team Providers Care Director Medical Name Role Phone Unavailable Primary Care Provider Unavailabl e Social History Tobacco UseTypesPacks/DayYears UsedDateSmoking Tobacco: Never AssessedUT Safety & EnvironmentAnswerDate RecordedFear of Current or Ex-PartnerNot on file 10/28/2023Emotionally AbusedNot on file10/28/2023hysically AbusedNot on file 10/28/2023Sexually AbusedNot on file10/28/2023hysically or Sexually AbusedNot on file10/28/2023Sex and Gender InformationValueDate RecordedSex Assigned at BirthNot on fileLegal YfcKlax4303/04/2022 10:53 PM EDTGender IdentityNot on file Sexual OrientationNot on file Plan of Treatment Not on file
--- OUTSIDE RECORDS SUMMARY | 2025-09-01 12:47 | XMS_ITS | Clinical Summary ---
Author Organization [facility] Address [address] [place] [address] Phone Care Team Providers Care Financial Advisor Trainee Name Role Phone Dasia Velez MD Primary Care Provider [phone] Allergies Active AllergyReactionsCriticalityNoted FaiqFxyoobnhDlkvqepuxMhpgryst64/08/2024 Medications MedicationSigDispense QuantityRefillsLast FilledStart DateEnd DateStatus pioglitazone (Actos) 15 mg tablet Take 1 tablet (15 mg) by mouth once daily.Active glipiZIDE XL (Glucotrol XL) 10 mg 24 hr tablet Take 1 tablet (10 mg) by mouth once daily. Do not crush, chew, or split.Active hyoscyamine ER (Levbid) 0.375 mg 12 hr tablet Take 1 tablet (0.375 mg) by mouth every 12 hours if needed for cramping. Do not crush or chew.Active testosterone cypionate (Depo-Testosterone) 200 mg/mL injection INJECT 150MG INTRAMUSCULARLY EVERY 2 WEEKS5Active Jardiance 25 mg tablet 5Active lisinopril 5 mg tablet Take 1 tablet (5 mg) by mouth once daily.4Active aspirin 81 mg chewable tablet 2 times a day.4Active omeprazole (PriLOSEC) [address] capsule TAKE 1 CAPSULE BY MOUTH EVERY DAY BEFORE MEALSActive citalopram (CeleXA) 20 mg tablet Take 1 tablet (20 mg) by mouth early in the morning..5Active atorvastatin (Lipitor) 20 mg tablet Take 1 tablet (20 mg) by mouth once daily.Active carvedilol (Coreg) 12.5 mg tablet Indications:Acute combined systolic and diastolic heart failure (Multi)Take 1 tablet (12.5 mg) by mouth every 12 hours. 180 tablet 5Active amLODIPine (Norvasc) 5 mg tablet Indications:Atherosclerosis of caddo coronary artery of caddo heart without angina pectoris,Essential hypertensionTake 1 tablet (5 mg) by mouth once daily. 90 tablet 516Active nitroglycerin (Nitrostat) 0.4 mg SL tablet Indications:Atherosclerosis of caddo coronary artery of caddo heart without angina pectoris,Essential hypertensionPlace 1 tablet (0.4 mg) under the tongue every 5 minutes if needed for chest pain. May repeat dose every 5 minutes for up to 3 doses total. 25 tablet 5Active Active Problems ProblemNoted DateDiagnosed DateObstructive sleep apnea07/16/2025 Assessment & Plan (07/16/2025 2:43 PM EST): Intolerant to CPAP BMI 50.0-59.9, adult07/16/2025 Assessment & Plan (07/17/2025 8:53 AM EST): Reviewed the merits of healthy lifestyle choices on overall cardiovascular health. 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 10/14/2023 Assessment & Plan (07/17/2025 8:53 AM EST): 2013 diagonal and circumflex PCI/stenting Last ischemic evaluation: May 2019 cardiac cath Ostial diagonal 60% with mid/distal stent 40% ISR Mid circumflex patent stent LAD mild/moderate diffuse disease RCA 30% EF 70% Current daily activity greater than 4 METS without concerning symptoms Encounters DateTypeDepartmentCare EpihNhgsdhzhjyb29/10/2025 2:30 PM ESTOffice Visit at [facility] [address] [phone] Jacqueline Proctor, BLASTING COAL MINER-LEARNING TECHNOLOGIST Atherosclerosis of caddo coronary artery of caddo heart without angina pectoris (Primary Dx); Essential hypertension; Mixed hyperlipidemia; Type 2 diabetes mellitus without complication, without long-term current use of insulin (Multi); Obstructive sleep apnea; Acute combined systolic and diastolic heart failure (Multi); BMI 50.0-59.9, adult (Multi) Discharge Disposition: Home07/16/20252194Nwzakj09/04/2025Telephone at [facility] [address] [phone] Azeb Sapp RN 07/04/2025Scanned Document [facility] [address] [place] [phone] Scanning, Generic Provider from Last 3 Months Family History Medical HistoryRelationNameCommentsNo Known ProblemsBrothermyocardialinfarction FatherNo Known ProblemsMotherNo Known ProblemsSisterRelationNameStatusComments BrotherFatherMotherSister Social History Tobacco UseTypesPacks/DayYears UsedDateSmoking Tobacco: FormerCigarettes Smokeless Tobacco: Never Tobacco Cessation:Counseling Given: Yes Alcohol UseStandard Drinks/WeekCommentsNot Currently0 (1 standard drink = 0.6 oz pure alcohol)Sex and Gender InformationValueDate RecordedSex Assigned at Not on fileLegal XraZfav99/26/2022 12:58 PM ESTGender IdentityNot on fileSexual OrientationNot on file Last Filed Vital Signs Vital SignReadingTime TakenCommentsBlood Fbzodsqe613/80109/15/2024 2:28 PM EST Qkrqt307107/16/2025 2:28 PM ESTTemperature--Respiratory Rate--Oxygen Saturation-- Inhaled Oxygen Concentration--Lqusns179 kg (341 lb)07/16/2025 2:28 PM ESTHeight 174 cm (5' 8.5 )07/16/2025 2:28 PM ESTBody Mass Index51.0907/16/2025 2:28 PM EST Plan of Treatment DateTypeDepartmentCare Team (Latest Contact Info)Mwfigwtisqh74/12/2026 10:30 AM EDTOffice Visit at [facility] [address] [facility] [address] [place] [phone] Gabino Deluca, [address] [facility] [address] [place] [address] Health MaintenanceDue DateLast DoneCommentsCT Ifecsuorruuj46/10/1961Colonoscopy 1Colorectal Cancer Gmzxcpqbh78/10/1961reatinine Level1960 Diabetes: Hemoglobin A1C1960iabetes: Urine Protein Hwiwasiyu13/10/1961 Watcdnsfvjokac25/10/1961FIT-DNA (Cologuard)1960FIT1960HIV Screening 1Lipid Panel1Potassium Level1960 4475Omhewebayeheu85/10/1961 Yearly Adult Srlbckmq39/10/1961MMR Vaccines (1 of 1 - Standard series)1961 Diabetes: Retinopathy Jfzeqotnx60/10/1971Hepatitis C Aykoqusrx22/10/1979 Pneumococcal Vaccine (1 of 2 - PCV)1979DTaP/Tdap/Td Vaccines (1 - Tdap) 1982PSA Prostate Cancer Dbfvkztzq60/10/2011RSV High Risk: (Elderly (60+) or Population) (1 - Risk 50-74 years 1-dose series)2010Zoster Vaccines (1 of 2)2010COVID-19 Vaccine (1 - season)2025 Influenza Vaccine (#1)2025bdominal Aortic Aneurysm (AAA) Screening 2025HIB VaccinesAged OutNo longer eligible based on patient's age to complete this topicHPV VaccinesAged OutNo longer eligible based on patient's age to complete this topicHepatitis A VaccinesAged OutNo longer eligible based on patient's age to complete this topicHepatitis B VaccinesAged OutNo longer eligible based on patient's age to complete this topicIPV VaccinesAged OutNo longer eligible based on patient's age to complete this topicMeningococcal VaccineAged OutNo longer eligible based on patient's age to complete this topic Rotavirus VaccinesAged OutNo longer eligible based on patient's age to complete this topic Insurance Care Teams Team MemberRelationshipSpecialtyStart DateEnd Date Dasia Velez MD [facility] [place] [address] [place] [address] [facility]12/22/22
--- OUTSIDE RECORDS SUMMARY | 2025-09-01 12:47 | XMS_ITS | Clinical Summary ---
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 Name Role Phone Dasia Velez MD Primary Care Provider [phone] Allergies Active AllergyReactionsCriticalityNoted DateCommentsMetforminAnaphylaxisHigh 07/24/2024 Medications MedicationSigDispense [...] Problems ProblemNoted DateDiagnosed DateOSA (obstructive sleep apnea)07/25/2024 Uidmnlaxnvyd67/19/8465OH9 (diabetes mellitus, type 2)07/25/2024AD (coronary artery disease)07/25/2024Small bowel tlbdguvkbpg66/18/2024 Social History Tobacco UseTypesPacks/DayYears UsedDateSmoking Tobacco: Never [facility] UtilitiesAnswerDate RecordedIn the past 12 months [...] a part of a household?No07/24/2024hildcareAnswerDate RecordedChildcareUnknown 02/15/2019EmploymentAnswerDate MtgvgcbrNmxscztgwrJkeslld63/12/2019Hunger ScreeningAnswerDate RecordedWithin the past 12 months we worried whether our food would run out before we got money to buy more.Never True07/24/2024Within the past 12 months the food we bought just didn't last and we didn't have money to get more.Never True07/24/2024Sex and Gender InformationValueDate RecordedSex Assigned at BirthNot on fileLegal OsqTfma4704/11/2015 11:46 AM EDTGender Identity Not on fileSexual OrientationNot on file Last Filed Vital Signs Vital SignReadingTime TakenCommentsBlood Oulkyaqr112/7407/28/2024 11:26 AM EST Tydoy877107/28/2024 11:26 AM YQZLpcgroaymxy28.5 ??C (97.7 ??F)07/28/2024 11:26 AM ESTRespiratory Vlru278509/27/2023 11:26 AM ESTOxygen Ktnysktmlw27%07/28/2024 11:26 AM ESTInhaled Oxygen Concentration--Xmuxyo075.1 kg (317 lb 9.6 oz)07/26/2024 5:00 AM ACWCvxjii565.2 cm (5' 7 )07/24/2024 3:20 AM ESTBody Mass Index49.74 07/24/2024 3:20 AM EST Plan of Treatment Health MaintenanceDue DateLast DoneCommentsDiabetic Ophthalmology Exam1960 Statin Use: Yxavntedxvgtqh95/10/1961tatin Use: Gryxfdmm29/10/1961epression Avuspyuxa01/10/1973Tobacco Imilfxmqt01/10/1973Diabetic Foot Exam1978 DTaP,Tdap and Td Vaccines (1 - Tdap)1979RSV ( or age 60+ yrs) (1 - Risk 50-74 years 1-dose series)2010Zoster (Shingles) Vaccine (1 of 2) 2010COVID-19 Vaccine ( season), 12/01/2020, 11/12/2020Influenza Abzunwq3205/07/2025dult BMI Cywsimido82 [employer] Devices Not on file Insurance Advance Directives * Full Code (Latest Code Status on File) Date ActivatedDate BtgfonuaocgWgymiwge16/18/2024 4:09 AM07/28/2024 6:17 PM Care Teams Team MemberRelationshipSpecialtyStart DateEnd Date Dasia Velez MD [address] [place] [phone] PCP - GeneralFamily Medicine05/06/21
--- OUTSIDE RECORDS SUMMARY | 2025-09-01 12:47 | XMS_ITS | Clinical Summary ---
Author Organization [facility] Address [address] [place], [place] [address] Care Team Providers Care Locomotive Switch Operator Name Role Phone Unavailable Primary Care Provider Unavailabl e Social History Tobacco UseTypesPacks/DayYears UsedDateSmoking Tobacco: Never AssessedSex and Gender InformationValueDate RecordedSex Assigned at BirthNot on fileLegal Sex Male08/07/2012 9:09 AM ESTGender IdentityNot on fileSexual OrientationNot on file Plan of Treatment Not on file
--- OUTSIDE RECORDS SUMMARY | 2025-09-01 12:47 | XMS_ITS | Clinical Summary ---
Author Organization [facility] Address [address] [facility] [place] [address] Care Team Providers Care Alum Plant Operator Name Role Phone Dasia Velez MD Primary Care Provider [phone] Allergies Active AllergyReactionsCriticalityNoted DateCommentsMetforminDiarrhea,GI rhwizpkaazc60/08/2024 Other Reaction(s): Abdominal Pain, diarrhea, Stomach cramps NkwwrhhjlbJsymAit99/26/2024 Medications MedicationSigDispense QuantityRefillsLast FilledStart DateEnd DateStatus amLODIPine (Norvasc) 5 MG tablet Daily02/24/2024ctive aspirin 81 MG chewable tablet Daily02/24/2024ctive atorvastatin (Lipitor) 20 MG tablet Daily02/25/2024ctive carvedilol (Coreg) 12.5 MG tablet Twice daily02/24/2024ctive citalopram (CeleXA) 40 MG tablet .HIHQIKN2902/24/2024ctive glipiZIDE XL (Glucotrol XL) 10 MG 24 hr tablet .EWFWTNT7002/24/2024ctive hyoscyamine ER (Levbid) 0.375 MG 12 hr tablet Take 375 mcg by mouth in the morning and 375 mcg before bedtime.Active lisinopril 5 MG tablet Twice daily10/20/2023ctive omeprazole (PriLOSEC) [address] capsule .FFNDSBW5302/24/2024ctive Active Problems No known active problems Social History Tobacco UseTypesPacks/DayYears UsedDateSmoking Tobacco: JposnfKozaujjtgq213.3 Started: 05/04/2004Smokeless Tobacco: Never Tobacco Cessation:Counseling Given: Yes Alcohol UseStandard Drinks/WeekCommentsDefer0 (1 standard drink = 0.6 oz pure alcohol)Sex and Gender InformationValueDate RecordedSex Assigned at BirthNot on fileLegal RjsUidf8611/18/2022 6:38 PM EDTGender IdentityNot on fileSexual OrientationNot on file Last Filed Vital Signs Vital SignReadingTime TakenCommentsBlood Jtaipmee561/8211 10:59 AM EST Gsjsv6948 10:59 AM ESTTemperature--Respiratory Bhmh2387 1:46 PM EDTOxygen Saturation--Inhaled Oxygen Concentration--Sfrmzh060 kg (330 lb) 07/13/2024 10:59 AM UWFLchzjz437.2 cm (5' 7 )07/13/2024 10:59 AM ESTBody Mass Index51.6907/13/2024 10:59 AM EST Plan of Treatment DateTypeDepartmentCare Team (Latest Contact Info)Jbjkqxtqjeg22/10/2026 2:00 PM ESTOffice Visit [facility] [address] [place] [phone] Antonio Jeffery, [address] [place] [address] Health MaintenanceDue DateLast DoneCommentsCT Qvtabzlsiifn61/10/1961Colonoscopy 1960olorectal Cancer Dfxxccbyd55/10/1961FIT-DNA1960FIT1960 FOBT1960 2461Nauffrztszzkg06/10/1961Influenza Vaccine (#1)2025 Pneumococcal Vaccine: Pediatrics (0 to 5 Years) and At-Risk Patients (6 to 64 Years)Aged OutNo longer eligible based on patient's age to complete this topic Insurance Care Teams Team MemberRelationshipSpecialtyStart DateEnd Date Dasia Velez MD [address] [place] [address] PCP - GeneralFamily Medicine05/04/24
--- OUTSIDE RECORDS SUMMARY | 2025-09-01 12:48 | XMS_ITS | CCD ---
Author Organization [facility] Care Team Providers Care Leather Tanner Name Role Phone UNKNOWN, PROVIDER Unavailable Unavailable LUIS JEFFREY Unavailable Unavailable LUIS JEFFREY Primary Care Physician [phone] Unavailable Unavailable Luis Jeffrey Unavailable Luis Jeffrey [...] .LETY Consulting Unavailable JEFFREY, DR LUIS Blakely Admitting [...] Dr. Luis Jeffrey Primary Care Unav ailable LUIS JEFFREY Attending [...] GLADIS Blakely Attending Unavailab le JIMMY, GLADIS JEMIMA E Attending Unavailab le JIMMY, GLADIS JEMIMA E Attending Unavailab le JIMMY, GLADIS JEMIMA E Attending Unavailab le Lue, Lety M. Attending Unavailable Lue, Lety M. Attending Unavailable Lue, Lety M. Attending Unavailable Lue, Lety M. Attending Unavailable Lue, Lety M. Admitting Unavailable LUIS JEFFREY Admitting Unavailable LUIS JFEFREY Attending Unavailable Lue, Lety M. Attending Unavailable [...] Unavailable LUIS JEFFREY Referring Unavailable LUIS JEFFREY E Primary Care Unavailable LUIS JEFFREY Referring Unavailable [...] Attending Unavailable Lue, Lety M. Admitting Unavailable Marlee, Do Attending Unavailable Lue, Lety M. Attending Unavailable Lue, Lety M. Attending Unavailable SILVEIRA, Gurwinder R Attending Unavailable Marlee, Do Attending Unavailable Marlee, Do Attending Unavailable Marlee, Do Attending Unavailable Lue, Lety M. Attending Unavailable Lue, Lety M. Attending Unavailable Lue, Lety M. Attending Unavailable Lue, Lety M. Attending Unavailable Lue, Lety M. Attending Unavailable Lue, Leyt M. Attending Unavailable Lue, Lety M. Admitting Unavailable Lue, Lety M. Attending Unavailable Lue, Lety M. Attending Unavailable Lue, Lety M. Attending Unavailable Lue, Lety M. Attending Unavailable Lue, Lety M. Attending Unavailable Lue, Lety M. Attending Unavailable Lue, Lety M. Attending Unavailable Marlee, Do Attending Unavailable Luis Jeffrey MD Primary Care Provider Luis Jeffrey MD Attending Provider Lety Gonzalez Attending Unavailable Lety Gonzalez Attending Unavailable Lety Gonzalez Attending Unavailable VINOD PROCTOR Attending Unavailable LUIS JEFFREY Primary Care Unavailable Luis Jeffrey MD Primary Care Provider Allergies Allergy ClassificationReported Allergen(s)Allergy TypeDate of OnsetReaction(s) FacilitymetFORMIN (3 sources)metFORMIN; Translations: [metformin]Drug AllergyStomach cramps (finding), Diarrhea (finding)[facility] (20 sources)metFORMIN; Translations: [metformin]Drug Evdzpkp37-96-3376Grkguqk cramps (finding), Diarrhea (finding), Diarrhea, GI intolerance, Anaphylaxis [facility] (20 sources)VancomycinDrug Iyanqsg09-62-1802PzgkNpnohgqpdC[facility] (1 source)metFORMINDrug AllergyPrem[facility] (1 source)VancomycinDrug Afhrrkk37-21-8257[facility] Rep[facility] (5 sources)Allergies ReconciledPropensity to adverse zvygowpvw70-01-0075[facility] [place] [employer] [facility] Other (5 sources)patient allergy list reviewed by nurse or physiciaPropensity to adverse fabqovcjn72-12-5686Qrqdppp:[place] Other Medications Current Medications MedicationDrug Class(es)DatesSig (Normalized)Sig (Original)amLODIPine 5 mg oral tablet (20 sources)Dihydropyridine Calcium Channel BlockerStart: 98-12-7222mxiq 1 tablet by mouth once dailyAmlodipine 5 mg tablet Active 0 .ROUTE .COMPLEX 90 3 January 09, 2025 2:25pm TAKE 1 TABLET BY MOUTH EVERY DAY Complies with drug therapy Start: 05-15-2019 End: 49-57-2391mqhc 1 tablet by mouth once dailyamLODIPine (Norvasc) 5 mg tablet Indications: Atherosclerosis 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 90 tablet 3 07/16/2025 07/16/2026 Activeascorbic acid 250 mg oral tablet (3 sources)Vitamin CStart: 13-00-1079pmjh 1 mg by mouth once dailyVitamin C 250 mg oral tablet mg tab(s), Oral, Daily, Refills(s) 0 Start Date: 07/03/21 Status: Orderedaspirin 81 mg chewable tablet (20 sources)Platelet Aggregation Inhibitor, Nonsteroidal Anti-inflammatory Drug Start: 85-49-1017iemn 2 tablets by mouth once dailyAspirin 81 mg tablet,chewable Active 162 MG PO Daily 180 0 February 24, 2024 4:26pm Complies with drug therapy Start: 23-25-6325kuwc 162 mg by mouth once dailyAspirin Active 162 MG PO Daily 180 February 24, 2024 4:26pmStart: 21-29-8917wmcnisu 81 mg chewable tablet 2 times a day. 02/24/2024 ActiveStart: 15-45-9492uzrouto 81 MG chewable tablet Daily 02/24/2024 ActiveStart: 05-13-2019 End: 57-45-7013rlnp 2 tablets by mouth once dailyAspirin 81 mg Tablet,Chewable Discontinued 162 MG PO Daily May 13, 2019 12:00am February 24, 2024 4:28pm Start: 05-13-2019 End: 00-81-0885lzoz 162 mg by mouth once dailyAspirin Discontinued [...] Activebiotin 1 mg oral tablet (20 sources)Start: 05-54-3218zmdx 1 tablet by mouth once dailybiotin 1000 mcg oral tablet 1,000 mcg = 1 tab(s), Oral, Daily, # 30 tab(s), Refills(s) 0 Start Date: 07/03/21 Status: OrderedBlood Sugar Diagnostic (7 sources)Start: 86-15-7655Knele Sugar Diagnostic Active 0 .Route 100 February 24, 2024 12:00am to test blood sugar once dailyStart: 72-75-2790Asjad Sugar Diagnostic Active 0 .Route February 23, 2024 12:00am As directedcarvedilol 12.5 mg oral tablet (20 sources)alpha-Adrenergic Donovan, beta-Adrenergic BlockerStart: 07-16-2025 take 1 tablet by mouth every twelve hourscarvedilol (Coreg) 12.5 mg tablet Indications: Acute combined systolic and diastolic heart failure (Multi) Take 1 tablet (12.5 mg) by mouth every 12 hours. 180 tablet 3 07/16/2025 ActiveStart: 04-27-2025 End: 94-67-2499mwkk 1 tablet by mouth twice dailycarvedilol (Coreg) 12.5 mg tablet Indications: Acute combined systolic and diastolic heart failure (Multi) TAKE 1 TABLET BY MOUTH TWICE A DAY 180 tablet 3 04/27/2025 07/16/2025 Discontinued (Reorder)Start: 46-66-2450xvbm 1 tablet by mouth twice daily Carvedilol 12.5 mg tablet Active 0 .ROUTE .COMPLEX 180 June 09, 2024 8:34am TAKE ONE TABLET BY MOUTH TWICE A DAY Complies with drug therapyStart: 05-13-2019 End: 00-18-0655qcls 1 mg by mouth twice dailycarvedilol 12.5 mg Tab mg tab(s), Oral, BID, Refills(s) 0 Start Date: 07/03/21 Status: Ordered Medication Dispense Status: Completed Total Allowed Fills: 1 Fills Dispensed: 0citalopram 20 mg oral tablet (20 sources)Serotonin Reuptake InhibitorStart: 97-09-2879lvky 1 tablet by mouth in the morningcitalopram (CeleXA) 20 mg tablet Take 1 tablet (20 mg) by mouth early in the morning.. 06/06/2025 ActiveStart: 10-56-0647budl 1 tablet by mouth once dailyCitalopram 20 mg tablet Active 0 .ROUTE .COMPLEX 90 June 06, 2025 12:09pm TAKE 1 TABLET BY MOUTH EVERY DAY Complies with drug therapyStart: 07-26-2024 End: 23-25-5350cyds 40 mg by mouth once daily40 mg, oral, Daily, First dose on Wed07/26/24 at 0930, Look-alike/sound-alike medication - verify indication for use.Start: 49-65-2801lptsrvaese (CeleXA) 40 MG tablet .COMPLEX 02/24/2024 Active Start: 02-08-2024 End: 92-37-4691hqtw 1 tablet by mouth once dailyCitalopram 40 mg tablet Discontinued 0 .ROUTE .COMPLEX 90 1 February 24, 2024 4:27pm August 28, 2024 10:39pm TAKE 1 TABLET BY MOUTH EVERY DAYStart: 02-08-2024 End: 38-19-6060ldag 1 tablet by mouth once dailyCitalopram 40 mg tablet Discontinued 40 MG PO Daily February 08, 2024 12:00am February 08, 2024 3:33pmStart: 70-53-8713zccl 1 dose by mouth once dailycitalopram Oral, Daily, Refills(s) 0 Start Date: 07/03/21 Status: Ordered Medication Dispense Status: Completed Total Allowed Fills: 1 Fills Dispensed: 0Start: 45-17-4454yzjmeniwxl Oral, Daily, Refills(s) 0 Start Date: 07/03/21 Status: Ordered Repeat number: 1Start: 51-80-8683sdxeggpasx Oral, Daily, Refills(s) 0 Start Date: 07/03/21 Status: OrderedStart: 05-13-2019 End: 86-95-4144jegi 1 tablet by mouth at bedtimeCitalopram 10 mg tablet Discontinued 1 TAB PO Bedtime May 13, 2019 12:00am February 08, 2024 3:21pm Start: 05-13-2019 End: 63-37-6979nuxm 1 tablet by mouth at bedtimeCitalopram Discontinued 1 TAB PO Bedtime May 13, 2019 12:00am February 08, 2024 3:21pmempagliflozin 25 mg oral tablet (20 sources)Sodium-Glucose Cotransporter 2 InhibitorStart: 74-37-7076Nshxgptpj 25 mg tablet 07/09/2025 ActiveStart: 02-83-2876gshg 1 tablet by mouth once daily Empagliflozin (Jardiance) 25 mg tablet Active 25 MG PO Daily July 03, 2025 12:00am Complies with drug therapyStart: 62-18-4254Pxijrkpzm 25 mg oral tablet Refills(s) 0 Start Date: 06/09/23 Status: Orderedertugliflozin 15 mg oral tablet (20 sources)Start: 12-40-6950menx 1 mg by mouth once daily in the morning Steglatro 15 mg oral tablet mg tab(s), Oral, qAM, Refills(s) 0 Start Date: 07/03/21 Status: OrderedMedication Dispense Status: Completed Total Allowed Fills: 1 Fills Dispensed: 012 hr hyoscyamine sulfate 0.375 mg extended release oral tablet (20 sources)Start: 06-23-2024 End: 71-59-9643dzod 1 tablet by mouth twice dailyHyoscyamine Sulfate 0.375 mg tablet extended release 12 hr Active 0 .ROUTE .COMPLEX 60 2 June 13, 2025 10:11am TAKE ONE TABLET BY MOUTH TWICE A DAY Complies with drug therapyStart: 04-17-2024 End: 87-19-3040urhz 1 tablet by mouth twice dailyHyoscyamine Sulfate 0.375 mg tablet extended release 12 hr Discontinued 0.375 MG PO Twice daily 60 1 April 17, 2024 11:34am June 23, 2024 8:19amStart: 03-22-2024 End: 89-33-3201pnxc 1 tablet by mouth once daily as neededHyoscyamine Sulfate (Levsin) 0.125 mg tablet Discontinued 0.125 MG PO Daily as needed for dyspepsia 30 0 March 22, 2024 12:00am April 17, 2024 11:02amStart: 12-03-2020 End: 02-10-9060lblv 1 tablet by mouth every twelve hoursHyoscyamine Sulfate 0.375 mg tablet extended release 12 hr Discontinued 0.375 MG PO Every 12 hours [facility] 2023 12:00am March 22, 2024 11:05amtake 1 tablet by mouth every twelve hours in the morninghyoscyamine ER (Levbid) 0.375 MG 12 hr tablet Take 375 mcg by mouth in the morning and 375 mcg before bedtime. Activelisinopril 5 mg oral tablet (20 sources)Angiotensin Converting Enzyme InhibitorStart: 07-03-2021 End: 14-37-0377qygc 1 tablet by mouth once dailylisinopril 5 mg tablet Take 1 tablet (5 mg) by mouth once daily. 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 May repeat dose every 5 minutes for up to 3 doses total. 25 tablet 3 07/16/2025 08/15/2025 Activeomeprazole 40 mg Cap-DR (3 sources)Start: 23-60-4462uyyd 1 mg by mouth once dailyomeprazole 40 mg Cap-DR mg cap(s), Oral, Daily, Refills(s) 0 Start Date: 07/03/21 Status: OrderedOne Touch Glucometer (8 sources)Start: 27-66-1353Bgw Touch Glucometer use as directed Nov, Activepioglitazone 30 mg oral tablet (20 sources)Peroxisome Proliferator Receptor alpha Agonist, Peroxisome Proliferator Receptor gamma Agonist, ThiazolidinedioneStart: 01-16-2025 End: 25-59-5352lszo 1 tablet by mouth once dailyPioglitazone 30 mg tablet Active 0 .ROUTE .COMPLEX 90 0 April 16, 2025 9:33am TAKE 1 TABLET BY MOUTH EVERY DAY Complies with drug therapyStart: 03-08-2024 End: 20-24-4389raps 1 tablet by mouth once dailypioglitazone 30 mg Tab TAKE 1 TABLET BY MOUTH EVERY DAY FOR 30 DAYS Start Date: 03/08/24 Status: Ordered Medication Dispense Status: Completed Total Allowed Fills: 1 Fills Dispensed: 0 Start: 12-06-2023 End: 79-76-8691dcjj 1 tablet by mouth once dailyPioglitazone 30 mg tablet Discontinued 0 .ROUTE .COMPLEX 90 1 February 24, 2024 4:27pm April 17, 2024 9:17am TAKE 1 TABLET BY MOUTH EVERY DAY FOR 30 DAYSStart: 12-06-2023 End: 07-64-7144zach 1 tablet by mouth once dailyPioglitazone 30 mg tablet Discontinued 30 MG PO Daily December 06, 2023 12:00am December 06, 2023 11:55am Start: 46-54-8244okmg 1 tablet by mouth every twenty-four hoursActos 15 MG 1 tablet Orally Once a day for 30 days Dec, Active1 ml testosterone cypionate 200 mg/ml injection (20 sources)AndrogenStart: 15-95-3913thqxzi 150 mg by intramuscular injection every other weektestosterone cypionate (Depo-Testosterone) 200 mg/mL injection INJECT 150MG INTRAMUSCULARLY EVERY 2WEEKS 05/08/2025 ActiveStart: 06-14-2024 inject 200 mg by intramuscular injection every other weekTestosterone Cypionate 200 mg/mL oil Active 200 MG IM EVERY 2 WEEKS June 14, 2024 12:00am Complies with drug therapyStart: 13-34-0515nymezy 200 mg by intramuscular injection every other weekTestosterone Cypionate Active 200 MG IM EVERY 2 WEEKS June 14, 2024 12:00amStart: 08-35-8399ibqgyx 200 mg by intramuscular injection every other weekDepo-Testosterone 200 mg/mL intramuscular solution 200 mg, IntraMuscular, q2wk, # 10 mL, Refills(s)5, Pharmacy: [facility]/pharmacy #[id number], 174, cm, 09/15/23 8:08:00 EST, Height/Length Dosing, 143, kg, 09/15/23 8:08:00 EST, Weight Dosing Start Date: 01/25/24 Status: OrderedStart: 83-45-7356cghmno 200 mg by intramuscular injection every other weekDepo-Testosterone 200 mg/mL intramuscular solution 200 mg, IntraMuscular, q2wk, # 10 mL, Refills(s)5, Pharmacy: [facility]/pharmacy #[id number], 174, cm, 06/09/23 7:58:00 EDT, Height/Length Dosing, 143, kg, 06/09/23 7:58:00 EDT, Weight Dosing Start Date: 06/09/23 Status: Orderedtestosterone cypionate 200 mg/mL IM Erin (20 sources)Start: 39-81-5269lxmgxo 150 mg by intramuscular injection every other weektestosterone cypionate 200 mg/mL IM Erin 150 mg, IntraMuscular, q2wk, # 10 mL, Refills(s) 5, Pharmacy: [facility]/pharmacy #[id number], 174, cm, 05/02/25 11:10:00 EDT, Height/Length Dosing, 154.4, kg, 05/02/25 11:10:00 EDT, Weight Dosing Start Date: 05/02/25 Status: Ordered Medication Dispense Status: Completed Quantity: 10.0 Unit: mL Total Allowed Fills: 6 Fills Dispensed: 0 Indications: Testicular hypofunction;Start: 37-50-1186azqhox 150 mg by intramuscular injection every other weektestosterone cypionate 200 mg/mL IM Erin 150 mg, IntraMuscular, q2wk, # 10 mL, Refills(s) 5, Pharmacy: [facility]/pharmacy #[id number], 174, cm, 05/02/25 11:10:00 EDT, Height/Length Dosing, 154.4, kg, 05/02/25 11:10:00 EDT, Weight Dosing Start Date: 05/02/25 Status: Ordered Quantity: 10.0 Unit: mL Repeat number: 6 Indications: Testicular hypofunction;Start: 71-92-4691dzfolt 150 mg by intramuscular injection every other weektestosterone cypionate 200 mg/mL IM Erin 150 mg, IntraMuscular, q2wk, # 10 mL, Refills(s) 3, Pharmacy: [facility]/pharmacy #[id number], 174, cm, 10/26/24 9:18:00 EST, Height/Length Dosing, 147, kg, 10/26/24 9:18:00 EST, Weight Dosing Start Date: 11/08/24 Status: Ordered Quantity: 10.0 Unit: mL Repeat number: 4 Indications: Testicular hypofunction;Start: 11-08-2024 inject 150 mg by intramuscular injection every other weektestosterone cypionate 200 mg/mL IM Erin 150 mg, IntraMuscular, q2wk, # 10 mL, Refills(s) 3, Pharmacy: [facility]/pharmacy #[id number], 174, cm, 10/26/24 9:18:00 EST, Height/Length Dosing, 147, kg, 10/26/24 9:18:00 EST, Weight Dosing Start Date: 11/08/24 Status: Ordered Quantity: 10.0 Unit: mL Repeat number: 4 Indication: Testicular hypofunction Start: 47-49-8589pqucqf 150 mg by intramuscular injection every other week testosterone cypionate 200 mg/mL IM Erin 150 mg, IntraMuscular, q2wk, # 10 mL, Refills(s) 3, Pharmacy: [facility]/pharmacy #[id number], 174, cm, 10/26/24 9:18:00 EST, Height/Length Dosing, 147, kg, 10/26/24 9:18:00 EST, Weight Dosing Start Date: 11/08/24 Status: OrderedStart: 96-55-3798ztzpur 150 mg by intramuscular injection every other weektestosterone cypionate 200 mg/mL IM Erin 150 mg, IntraMuscular, q2wk, # 10 mL, Refills(s) 3, other reason (Rx) Start Date: 10/26/24 Status: OrderedStart: 71-92-0589xqqrne 150 mg by intramuscular injection every other weektestosterone cypionate 200 mg/mL IM Erin 150 mg, IntraMuscular, q2wk, # 10 mL, Refills(s) 0, [id number], [facility], 03/03/23 9:34:00 EDT, Height/Length Dosing, 144.7, kg, 03/03/23 9:34:00 EDT, Weight Dosing Start Date: 03/30/23 Status: OrderedStart: 52-73-7401rggnyc 150 mg by intramuscular injection every other weektestosterone cypionate 200 mg/mL IM Erin 150 mg, IntraMuscular, q2wk, # 10 mL, Refills(s) 0 Start Date: 11/25/22 Status: Ordered testosterone cypionate 200 mg/mL intramuscular solution (11 sources)Start: 73-50-6682itldbs 200 mg by intramuscular injection every other weektestosterone cypionate 200 mg/mL intramuscular solution 200 mg = 1 mL, IntraMuscular, q2wk, # 1 mL,Refills(s) 5, [id number], cm, 05/27/22 8:55:00 EDT, Height/Length Dosing, 142.9, kg, 05/27/22 8:55:00 EDT, Weight Dosing Start Date: 05/27/22 Status: OrderedStart: 56-01-9394rfkhifubpkre cypionate 200 mg/mL intramuscular solution 200 mg = 1 mL, IntraMuscular, q4wk, # 1 mL,Refills(s) 5, Pharmacy: [facility]/pharmacy #[id number], 175, cm, 11/11/21 8:23:00 EST, Height/Length Dosing, 142.9, kg, 11/11/21 8:23:00 EST, Weight Dosing Start Date: 01/05/22 Status: OrderedStart: 46-60-0358apxshnholmse cypionate 200 mg/mL intramuscular solution 200 mg = 1 mL, IntraMuscular, q4wk, # 1 mL,Refills(s) 5, Pharmacy: [facility]/pharmacy #[id number], 175, cm, 07/03/21 9:23:00 EDT, Height/Length Dosing, 136.5, kg, 07/03/21 9:23:00 EDT, Weight Dosing Start Date: 07/07/21 Status: OrderedTestosterone Cypionate 200 mg/mL intramuscular solution (8 sources)Start: 10-88-3187vqfhvm 100 mg by intramuscular injection every other weekTestosterone Cypionate 200 mg/mL intramuscular solution 100 mg, IntraMuscular, q2wk, # 10 mL, Refills(s) 0, Pharmacy: [facility]/pharmacy #[id number], 175, cm, 09/09/22 10:01:00 EST, Height/Length Dosing, 139, kg, 09/09/22 10:01:00 EST, Weight Dosing Start Date: 09/23/22 Status: OrderedTestosterone Cypionate 200 mg/mL oil (1 source)Start: 89-08-0244huncej 200 mg by intramuscular injection every other weekTestosterone Cypionate 200 mg/mL oil Active 200 MG IM EVERY 2 WEEKS June 14, 2024 12:00amurea 400 mg/ml topical cream (12 sources)Start: 05-04-2024 End: 60-25-8186fwpn (Carmol) 40 % cream Indications: Xerosis cutis Apply 1 application topically in the morning and 1 application before bedtime. 85 g 1 05/04/2024 06/03/2024 ActiveVitamin B12 1000 mcg Tab (20 sources)Start: 18-32-1255gmqq 1 ug by mouth once dailyVitamin B12 1000 mcg Tab mcg tab(s), Oral, Daily, Refills(s) 0 Start Date: 07/03/21 Status: Ordered Vitamin C 250 mg oral tablet (20 sources)Start: 71-00-6203fedr 1 mg by mouth once dailyVitamin C 250 mg oral tablet mg tab(s), Oral, Daily, Refills(s) 0 Start Date: 07/03/21 Status: Ordered Completed/Discontinued Medications MedicationDrug Class(es)DatesSig (Normalized)Sig (Original)acetaminophen 500 mg oral tablet (1 source)Start: 07-24-2024 End: 99-80-2391ewdt 1 tablet by mouth every six hours as needed for pain and headache and mg, oral, Every 6 hours PRN, mild pain - pain scale 1-3, headaches, temperature greater than 38C, Starting on Wed07/24/24 at 0407, [Warning: Total Acetaminophen not to exceed more than 4 grams (4000 mg) in 24 hours]atorvastatin 20 mg oral tablet (20 sources)HMG-CoA Reductase InhibitorStart: 07-26-2024 End: 72-92-0446oifn 20 mg by mouth once daily20 mg, oral, Daily, First dose on Wed07/26/24 at 0930, Look-alike/sound-alike medication - verify indication for use.Start: 69-17-1523skpl 1 tablet by mouth once dailyAtorvastatin 20 mg tablet Active 0 .ROUTE .COMPLEX 90 June 09, 2024 8:34am TAKE ONE TABLET BYMOUTH DAILY Complies with drug therapyStart: 17-25-0399tpmx 1 tablet by mouth once dailyAtorvastatin Active 0 .ROUTE .COMPLEX June 09, 2024 8:34am TAKE ONE TABLET BY MOUTH DAILYStart: 02-25-2024 End: 66-91-9750aqyk 1 tablet by mouth once dailyAtorvastatin 20 mg tablet Discontinued 20 MG PO Daily 90 0 February 25, 2024 12:00am June 09, 2024 8:34amStart: 07-03-2021 End: 02-12-5419zhue 1 mg by mouth once dailyatorvastatin 10 mg Tab mg tab(s), Oral, Daily, Refills(s) 0 Start Date: 07/03/21 Status: Ordered Medication Dispense Status: Completed Total Allowed Fills: 1 Fills Dispensed: 0calcium chloride 0.0014 meq/ml / potassium chloride 0.004 meq/ml / sodium chloride 0.103 meq/ml / sodium lactate 0.028 meq/ml injectable solution (3 sources)Start: 07-25-2024 End: 50-75-2343330 mL, intravenous, at 492 mL/hr, Administer over 61 Minutes, Once, On Wed07/25/24 at 0930, For 1doseStart: 07-24-2024 End: 67-21-0577wvrb 125 mL intravenously every ypxj674 mL/hr, intravenous, Continuous, Starting on Wed07/25/24 at 0845, For 1 dayglipiZIDE er 10 mg 24 hr extended release oral tablet (20 sources)SulfonylureaStart: 07-14-5570qqeprDTRC XL (Glucotrol XL) 10 MG 24 hr tablet .COMPLEX 02/24/2024 ActiveStart: 11-05-2023 End: 83-78-2504zazs 1 tablet by mouth once dailyGlipizide 10 mg tablet extended release 24hr Discontinued 0 .ROUTE .COMPLEX 90 0 February 24, 2024 4:27pm August 28, 2024 10:39pm TAKE 1 TABLET BY MOUTH EVERY DAYStart: 11-05-2023 End: 36-20-9234tajn 1 tablet by mouth once dailyGlipizide Discontinued 0 .ROUTE .COMPLEX November 05, 2023 4:00pm February 21, 2024 8:33am TAKE 1 TABLET BY MOUTH EVERY DAYStart: 06-66-2652sowi 1 tablet by mouth once dailyGlipizide Active 0 .ROUTE .COMPLEX November 05, 2023 4:00pm TAKE 1 TABLET BY MOUTH EVERY DAYStart: 71-27-3207vvtq 1 mg by mouth once dailyglipiZIDE 5 mg Tab mg tab(s), Oral, Daily, Refills(s) 0 Start Date: 07/03/21 Status: Ordered Medication Dispense Status: Completed Total Allowed Fills: 1 Fills Dispensed: 0Start: 05-13-2019 End: 32-80-5803isqo 1 tablet by mouth once dailyGlipizide 10 mg tablet Discontinued 1 TAB PO Daily May 13, 2019 12:00am November 05, 2023 4:00pm take 1 tablet by mouth once dailyglipiZIDE XL (Glucotrol XL) 10 mg 24 hr tablet Take 1 tablet (10 mg) by mouth once daily. Do not crush, chew, or split. Active glucagon (rdna) 1 mg injection (1 source)Antihypoglycemic AgentStart: [...] 50 mg/ml injection (3 sources)Start: 07-24-2024 End: 68-74-2342ggkq 70 mg intravenously every viqn218 mL/hr, intravenous, Continuous PRN, blood glucose less [...] pen injector (2 sources)Insulin AnalogStart: 07-26-2024 End: 91-70-5054msmgfq 400 mg by subcutaneous injection four times [...] before or immediatelyafter a meal.Start: 07-24-2024 End: 20-41-1894etcjlo 2-10 [IU] by subcutaneous injection every six [...] First dose (after last modification) on Wed07/25/24 [id number], Hold for HRomeprazole 40 mg delayed release oral capsule (20 sources)Proton Pump InhibitorStart: 11-26-2023 End: 80-50-5542yotp 1 capsule by mouth once daily before mealtimeOmeprazole 40 mg capsule,delayed release(DR/EC) Discontinued 0 .ROUTE .COMPLEX 90 30 1 February 24, 2024 4:27pm August 28, 2024 10:39pm TAKE 1 CAPSULE BY MOUTH EVERY DAY BEFORE A MEALStart: 07-03-2021 End: 25-75-5324kzkr 1 mg by mouth once dailyomeprazole 40 mg Cap-DR mg cap(s), Oral, Daily, Refills(s) 0 Start Date: 07/03/21 Status: Ordered Medication Dispense Status: Completed Total Allowed Fills: 1 Fills Dispensed: 0pantoprazole 40 mg delayed release oral tablet (2 sources)Proton Pump InhibitorStart: 07-28-2024 End: 74-49-996742 mg, oral, Every morning before breakfast, First dose on Wed07/28/24 at 0700, Look-alike/sound-alike medication - verify indication for use. If patient is receiving enteral feeding, consider alternative PPI or continue IV pantoprazole until the delayed-release tablet can be taken orally, Indicati on: GERDStart: 07-25-2024 End: 31-82-942383 mg, intravenous, Every 24 hours scheduled, First dose on Wed07/25/24 at 1515, GERD Look-alike/sound-alike medication - verify indication for use., Indication: Other ([place])Potassium Chloride (1 source)Start: 07-24-2024 End: 63-37-9727lyqfzanhs chloride (K-TAB,KLOR-CON) CR tablet 30-40 mEq prochlorperazine 5 mg/ml injectable solution (1 source)PhenothiazineStart: 07-24-2024 End: 55-43-7574mpcg 5 mg intravenously every six hours as needed for nausea and vomiting5 mg, intravenous, Every 6 hours PRN, nausea, vomiting, Starting on Wed07/24/24 at 0355, When administered via IV Push, do not exceed 5 mg per minute sildenafil 100 mg oral tablet (7 sources)Phosphodiesterase 5 InhibitorStart: 91-52-7119fjie 1 tablet by mouth every twenty-four hours as neededViagra 100 mg Tab 100 mg = 1 tab(s), Oral, As Directed, PRN for erectile dysfunction, 1 hour beforesexual activity. Start with 1/2 tablet. Not to exceed 1 tab (100 mg) in 24 hours, # 30 tab(s), Refills(s) 5, Pharmacy: [facility], 175, cm, 03/03/23 9:34... Start Date: 03/17/23 Status: OrderedStart: 89-25-6908wntx 1 tablet by mouth every twenty-four hours as neededViagra 100 mg Tab 100 mg = 1 tab(s), Oral, As Directed, PRN for erectile dysfunction, 1 hour beforesexual activity. Start with 1/2 tablet. Not to exceed 1 tab (100 mg) in 24 hours, # 30 tab(s), Refills(s) 5, Pharmacy: [facility]/pharmacy #[id number], 175, cm, 03/03/23 9:34:00 EDT,... Start Date: 03/03/23 Status: Onxkrgt299 ml sodium chloride 9 mg/ml prefilled syringe (2 sources)Start: 07-24-2024 End: mL, intravenous, Every 12 hours scheduled, First dose on Wed07/24/24 at 0900Start: 07-24-2024 End: mL, intravenous, As needed, line care, before and after each intermittent use, Starting on Wed07/24/24 at 0407sulfamethoxazole 800 mg / trimethoprim 160 mg oral tablet (6 sources)Dihydrofolate Reductase Inhibitor Antibacterial, Sulfonamide AntimicrobialStart: 02-23-2024 End: 87-95-8274omzc 1 tablet by mouth twice dailySulfamethoxazole-Trimethoprim 800-160 mg tablet Discontinued 1 TAB PO Twice daily 14 February 23, 2024 12:00am April 17, 2024 9:16amtadalafil 20 mg oral tablet (20 sources)Phosphodiesterase 5 InhibitorStart: 14-35-7099cnye 1 tablet by mouth every hour as needed, then take 1 tablet by mouth every twenty-four hours as neededCialis 20 mg Tab 20 mg = 1 tab(s), Oral, As Directed, PRN for erectile dysfunction, Take 1 tab 1 hour prior to intercourse. Do not exceed 20mg within 24 hours., # 30 tab(s), Refills(s) 3, Pharmacy: [facility], 174, cm, 09/15/23 8:08:00 EST, Height/Length Dosing, 143, kg, 09/15/23 8:08:00 EST, Weight Dosing Start Date: 09/15/23 Status: OrderedStart: 07-30-0512Mtnhtf 20 mg Tab 20 mg = 1 tab(s), Oral, As Directed, PRN for erectile dysfunction, Do not exceed 20mg within 24 hours., # 30 tab(s), Refills(s) 3, Pharmacy: [facility]/pharmacy #[id number], 174, cm, 06/09/23 7:58:00 EDT, Height/Length Dosing, 143, kg, 06/09/23 7:58:00 EDT, Weight Dosing Start Date: 06/09/23 Status: OrderedTirzepatide (4 sources)Start: 05-01-2024 End: 97-39-8540Qecalqkseso (Mounjaro) 2.5 mg/0.5 mL pen injector Discontinued 2.5 MG SUBCUT every week 2 May 01, 2024 12:00am June 14, 2024 9:33am patient will have voucherStart: 05-01-2024 End: 71-33-9391Wsispsfywjs (Mounjaro) 2.5 mg/0.5 mL pen injector Discontinued 2.5 MG SUBCUT every week 2023 12:00am June 14, 2024 9:33am patient will have voucherStart: 89-10-5387Feyxnbabolb (Mounjaro) 2.5 mg/0.5 mL pen injector Active 2.5 MG SUBCUT every week 2 April 12:00am patient will have voucherTirzepatide (4 sources)Start: 05-01-2024 End: 49-93-7298Hfliekdnxlg (Mounjaro) 5 mg/0.5 mL pen injector Discontinued 5 MG SUBCUT every week 2 May 01, 2024 12:00am August 07, 2024 10:18am to follow 2.5 mg (voucher)Start: 05-01-2024 End: 31-58-1720Gxvlqzzytgq (Mounjaro) 5 mg/0.5 mL pen injector Discontinued 5 MG SUBCUT every week May 01, 2024 12:00am August 07, 2024 10:18am to follow 2.5 mg (voucher)Start: 74-98-7834Lgzkfxylvqa (Mounjaro) 5 mg/0.5 mL pen injector Active 5 MG SUBCUT every week May 01, 2024 12:00am to follow 2.5 mg (voucher)tirzepatide (MOUNJARO) 5 mg/0.5 mL pen injector (1 source) End: 23-36-0045jrzbfonejuz (MOUNJARO) 5 mg/0.5 mL pen injector Inject 5 mg under the skin every 7 days. 4Discontinued (Stop Taking at Discharge) Problems Active Problems Problem ClassificationProblemDateDocumented DateEpisodic/ChronicAbdominal pain (20 sources)Lower abdominal pain; Translations: [Lower abdominal pain, unspecified]Onset: 88-60-2474QgptnoilCwgnafir foot deformities (5 sources)Acquired deformity of toe of right foot; Translations: [Other deformities of toe(s) (acquired), right foot]EpisodicCardiac dysrhythmias (5 sources)Cardiac arrhythmia; Translations: [Cardiac arrhythmia, unspecified] ChronicChronic kidney disease (5 sources)Chronic kidney disease stage 3; Translations: [Chronic kidney disease, stage 3 unspecified]Onset: 16-19-6623ThoytdgNzdhobi obstructive pulmonary disease and bronchiectasis (5 sources)Bronchitis; Translations: [Bronchitis, not specified as acute or chronic]EpisodicChronic ulcer of skin (20 sources)Chronic ulcer of foot; Translations: [Non-pressure chronic ulcer of other part of unspecified foot with unspecified severity]Onset: 03-08-2018 31-13-6596JkfwzdfKnqvjitsqs heart failure; nonhypertensive (12 sources)Heart failure, unspecified; Translations: [Heart failure]Onset: 06-06-6107AnpaeebGedttajt atherosclerosis and other heart disease (20 sources)Atherosclerotic heart disease of platinum coronary artery without angina pectoris; Translations: [Double coronary vessel disease]Onset: 12-12-2014 64-11-4347IironbbWlyzhpmy atherosclerosis and other heart disease (1 source)Coronary atherosclerosis and other heart diseaseOnset: 07-14-2018 Diabetes mellitus with complications (20 sources)Type 2 diabetes mellitus with ulcer; Translations: [Type 2 diabetes mellitus with foot ulcer]Onset: 43-98-2684RnicgpzCkkvfaxb mellitus without complication (20 sources)Diabetes mellitus; Translations: [Diabetes mellitus without mention of complication, type II or unspecified type, not stated as uncontrolled]Onset: 142122-72-7903UgrqkpyNztsckkl mellitus without complication (1 source)Glycosuria; Translations: [Glycosuria]Onset: 80-48-7342Kkkpvdaf Disorders of lipid metabolism (20 sources)Hyperlipidemia; Translations: [Other and unspecified hyperlipidemia] Onset: 89-04-0355XwhtrzgMhkbmzvfxd disorders (15 sources)Gastroesophageal reflux disease without esophagitis; Translations: [Gastro-esophageal reflux disease without esophagitis]61-12-8690PfwlnvuFlkymrhgt hypertension (20 sources)Essential hypertension; Translations: [Unspecified essential hypertension]Onset: 99-13-8833UyntddgScqoctodq hypertension (1 source)Essential hypertensionOnset: 10-62-0181Kxtqcpemiorqw symptoms and ill- defined conditions (20 sources)Nocturia; Translations: [Asymptomatic microscopic hematuria]Onset: 270428-33-1901VqxneprlPzksryflotn of prostate (20 sources)Benign prostatic hypertrophy with outflow obstruction; Translations: [Benign prostatic hyperplasia with lower urinary tract symptoms]Onset: 68-50-0684LfnixcfXuctyyqqnq obstruction without hernia (7 sources)Small bowel obstruction; Translations: [Unspecified intestinal obstruction, unspecified as to partial versus complete obstruction]Onset: 364192-90-4060VytgthyaZfkqbdb and fatigue (19 sources)Fatigue; Translations: [Other fatigue]Onset: EpisodicMood disorders (14 sources)Depression; Translations: [Major depressive disorder, single episode, unspecified]Onset: 75-75-8979FpekahzYjwjlrliigo chest pain (7 sources)Chest discomfort; Translations: [Other chest pain]15-85-6331Blmucgyb Open wounds of extremities (7 sources)Injury of foot; Translations: [Unspecified open wound, unspecified foot, initial encounter]13-95-3997YbgyaznbLhubyvq on above:Bilateral foot wounds Osteoarthritis (5 sources)Localized, [...] elsewhere classified; Translations: [LYMPHEDEMA NOT ELSEWHERE CLASSIFIED]Onset: 78-70-1789PdfmisfWbqok diseases of veins and lymphatics (13 sources)Peripheral venous insufficiency; Translations: [Venous insufficiency (chronic) (peripheral)]Onset: 37-84-0025YjtauzenFbmoj diseases of veins and lymphatics (2 sources)Venous insufficiency (chronic) (peripheral); Translations: [VENOUS INSUFF CHRONIC PERIPHERAL]Onset: 10-30-1465IyekyzbmYidjg endocrine disorders (20 sources)Testicular hypofunction; Translations: [Testicular hypofunction] Onset: 39-82-3115MzbamfcDurqd endocrine disorders (20 sources)Male hypogonadism; Translations: [Testicular hypofunction]09-02-2022 ChronicOther endocrine disorders (5 sources)Disorder of endocrine system; Translations: [Endocrine disorder, unspecified]EpisodicOther injuries and conditions due to external causes (5 sources)History of fall; Translations: [History of falling]EpisodicOther male genital disorders (20 sources)Male erectile dysfunction, unspecified; Translations: [Erectile dysfunction]Onset: 07-31-7470OdvzrneLohxb nutritional; endocrine; and metabolic disorders (18 sources)Body mass index 40+ - severely obese; Translations: [Body Mass Index 40.0-44.9, adult]Onset: 923066-47-2146ZbvoojcSrcda nutritional; endocrine; and metabolic disorders (17 sources)Morbid obesity; Translations: [Morbid obesity]55-64-1330DaordriUrsru nutritional; endocrine; and metabolic disorders (1 source)Morbid (severe) obesity due to excess calories; Translations: [MORBID SEVERE OBES D/T EXCESS DAVID]Onset: 12-56-6441WbdoeusHwfus nutritional; endocrine; and metabolic disorders (1 source)Body mass index (BMI) 45.0-49.9, adult; Translations: [BODY MASS INDEX BMI 45.0-49.9 ADULT]Onset: 27-82-9758ObxwbjzSgaii nutritional; endocrine; and metabolic disorders (10 sources)Obesity; Translations: [Obesity, unspecified]Onset: 07-13-2014 00-87-8862HporqxbNrrse nutritional; endocrine; and metabolic disorders (3 sources)Obesity, unspecified; Translations: [Obesity, unspecified]04-17-2024 ChronicOther screening for suspected conditions (not mental disorders or infectious disease) (20 sources)Decreased testosterone level ; Translations: [Blood chemistry abnormal]Onset: 764357-22-3315JgdpsbqfUazfd skin disorders (5 sources)Callosity; Translations: [Corns and callosities]EpisodicOther skin disorders (5 sources)Hemosiderin pigmentation of lower limb due to varicose veins of lower limb; Translations: [Other specified disorders of pigmentation]04-17-2024 EpisodicOther skin disorders (3 sources)Other specified disorders of pigmentation; Translations: [Dyschromia, unspecified]55-49-8478RbydvlbpUqobv skin disorders (8 sources)Asteatosis cutis; Translations: [Xerosis cutis]64-13-0216Zsrstupr Other skin disorders (6 sources)Fissure in skin; Translations: [Changes in skin texture]05-14-2024 EpisodicPeripheral and visceral atherosclerosis (19 sources)Intermittent claudication; Translations: [Peripheral vascular disease, unspecified]89-97-1244EhvjrdrLznlggph codes; unclassified (13 sources)Obstructive sleep apnea syndrome; Translations: [Obstructive sleep apnea]Onset: 153342-10-1172DyscwoqCqmxqekx codes; unclassified (7 sources)Sleep apnea; Translations: [Sleep apnea, unspecified]05-14-2019 ChronicResidual codes; unclassified (2 sources)Obstructive sleep apnea (adult) (pediatric); Translations: [Obstructive sleep apnea (adult) (pediatric)]Onset: 59-14-9408TctwnczXpnzptzm codes; unclassified (8 sources)Edema; Translations: [Localized edema]EpisodicResidual codes; unclassified (8 sources)Localized edema; Translations: [Localized edema]Onset: 02-24-2022 89-08-1866VncbwgjwXumjxfha codes; unclassified (5 sources)Tobacco user; Translations: [Tobacco use]EpisodicResidual codes; unclassified (5 sources)Bilateral lower limb edema; Translations: [Localized edema]04-17-2024 EpisodicResidual codes; unclassified (1 source)Pain, unspecified; Translations: [Pain, unspecified]Onset: 07-23-2024 EpisodicScreening and history of mental health and substance abuse codes (20 sources)Ex-smoker; Translations: [Personal history of tobacco use]Onset: 482755-82-6215SqgenlyxGjtpozh on above:quit 2012 1ppd;Spondylosis; intervertebral disc disorders; other back problems (5 sources)Neck pain; Translations: [Cervicalgia]EpisodicSuperficial injury; contusion (5 sources)Superficial foreign body, right foot, initial encounter; Translations: [Superficial foreign body, right foot, initial encounter]Episodic Unclassified (2 sources)Athscl heart disease of platinum coronary artery w/o ang pctrs / I25.10(ICD-9)Onset: 04-98-0974Olphnuofadrx (20 sources)Asymptomatic microscopic ecixtzibj80-58-1133Npbnzujkklgw (1 source)CONTACT W/AND (SUSP) EXPOS COVID-19; Translations: [CONTACT W/AND (SUSP) EXPOS COVID-19]Onset: 04-23-7213Ifbocelw veins of lower extremity (12 sources)Pain co-occurrent and due to varicose veins of bilateral legs; Translations: [Varicose veins of bilateral lower extremities with pain] 41-51-0263VrmxiuwlEfysp infection (1 source)COVID-19; Translations: [COVID-19]Onset: 08-07-2022 Past or Other Problems Problem ClassificationProblemDateDocumented DateEpisodic/ChronicAcute and unspecified renal failure (6 sources)Acute kidney failure, unspecified; Translations: [Acute renal failure syndrome]Onset: 60-48-6584TvmsthxjQaueefuxx infection; unspecified site (5 sources)Bacterial infectious disease; Translations: [Bacterial infection, unspecified, in conditions classified elsewhere and of unspecified site]Onset: 03-87-6045DecwmfknGndafysvmq associated with dizziness or vertigo (5 sources)Dizziness and giddiness; Translations: [Dizziness and giddiness] Onset: 08-59-7299XnbunporNzflmzzf atherosclerosis and other heart disease (1 source)Presence of coronary angioplasty implant and graft; Translations: [PRESENCE COR ANGPLSTY IMPLANT AND GRAFT]Onset: 60-10-1316BcrzyghbXtxzh and electrolyte disorders (1 source)Dehydration; Translations: [DEHYDRATION]Onset: 62-33-0881OwpgzjvbIqiss valve disorders (5 sources)O/E - cardiac murmur; Translations: [Cardiac murmur, unspecified] Onset: 60-12-8964GigkxqhtFoodio and vomiting (1 source)Nausea with vomiting, unspecified; Translations: [NAUSEA WITH VOMITING UNSPECIFIED]Onset: 94-42-9583UfomcgppPqqcwgdlgnjq breast conditions (5 sources)Breast lump; Translations: [Unspecified lump in unspecified breast] Onset: 91-33-0539YridyezqByowh aftercare (1 source)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; Translations: [COLLECTION ADVISOR CURRENT USE OF ASPIRIN]Onset: 90-89-5526YxjwwaqgYqfzw aftercare (1 source)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; Translations: [HALFWAY USE ORAL HYPOGLYCEMIC DX]Onset: 87-47-7277FhktoddxHduba aftercare (1 source)Other fpc (current) drug therapy; Translations: [OTH COLLECTION ADVISOR CURRENT DRUG THERAPY]Onset: 64-12-1491MhhqswsaFsyyh gastrointestinal disorders (1 source)Diarrhea, unspecified; Translations: [DIARRHEA UNSPECIFIED]Onset: 61-75-2243TytztdpoXqapf gastrointestinal disorders (5 sources)Diarrhea; Translations: [Diarrhea, unspecified]Onset: 01-04-2014 EpisodicOther lower respiratory disease (1 source)Personal history of pneumonia (recurrent); Translations: [PERSONAL HX OF PNEUMONIA RECURRENT]Onset: 67-50-0623ShjvyqevQutid skin disorders (1 source)Nail dystrophy; Translations: [NAIL DYSTROPHY]Onset: 01-26-2022 EpisodicOther skin disorders (1 source)Corns and callosities; Translations: [CORNS AND CALLOSITIES]Onset: 62-74-7659HlbwpnoaDzsww skin disorders (1 source)Xerosis cutis; Translations: [XEROSIS CUTIS]Onset: 87-68-7846Soynklij Other skin disorders (5 sources)Hypertrophic condition of skin; Translations: [Other hypertrophic disorders of the skin]Onset: 95-27-7643YrpvxvvhFkrythdgwu (except in labor) (2 sources)Sepsis, unspecified organism; Translations: [Severe sepsis without septic shock]Onset: 71-49-5320VrocqdtsXhpl and subcutaneous tissue infections (14 sources)Cellulitis of right lower limb; Translations: [Cellulitis and abscess of buttock]Onset: 87-65-1434Gxvkyhce Results Test NameValueInterpretationReference RangeFacilityUrology Office/Clinic Noteon 25-03-4862Rmticim Office/Clinic NoteUrology Office/Clinic Note Chief Complaint f/u [...] SARS-CoV-2 (COVID-19) mRNA B (more content not included)...[facility] HospitalComment on above:Result Comment: Electronically Signed By: Lety Gonzalez MD\.br\Date and Time Signed: 05/02/25 12:28EDT\.br\Electronically Co- Signed By: Joycelyn Cardoso\.br\Date and Time Co-Signed: 05/02/25 12:03 EDT Testost Totalon 52-73-7844Nhbuqpqcs Dbw596 ng/dLInvalid Interpretation Code [id number] HospitalComment on above:Result Comment: Adult male reference interval is based on a population of healthy nonobese males (BMI <30) between 19 and 39 years old. irina Lester.al. JCEM 2017,102;7022-2526. PMID: [id number]. Performed at: [facility] [address] [place], [place] [id number] PhD Arianne FonsecaPerformed By: #### [id number] #### [facility] [address] [place] [address]Kouyqocpxrxz 74-22-5134Tqptdayrms (Bld) [Volume fraction]47.0 % Slhsic36.7-49.0[facility] HospitalComment on above:Performed By: #### [id number] #### [facility] [address] [place], [place] [address]LSA Screen, Totalon 78-81-4520IYA Scrn Tot.0.8 ng/mLNormal 0.1-3.5Fbrittaney [facility] CenterComment on above:Result Comment: The concentration of PSA determined by different manufacturers can vary due to diffe rences in assay methods and reagent specificity. Values obtained from different assay methods cannot be used interchangeably. The methodology used for this result was chemiluminescence using [employer]'s Access Hybritech PSA reagent.Performed By: #### [id number] #### [facility] [address] [place] [address]Prpovybvdw Visit Summaryon 66-05-0246Oreikefprv Visit Summary Ambulatory Visit Summary SUNNYHOSEA CLAYFRANCISCA Valentino :1960 Visit Date:03/21/2025 Ambulatory Visit Instructions Your [...] [facility] [address] [facility] [place] [address]- Wednesday 8:00 AM EDT With: Where: [facility] [address] [facility] [address] [facility] [place] [address]- Wednesday 11:00 AM EDT With: Carlos LIZAMA, Lety Scott Where: [facility] [address] [place] [address]- Medications What How Much When Why Instructions [...] signed up for this yet, please contact [employer] at [phone] to get signed up today. Language Information Language assistance services are available as needed. [facility] HospitalAmbulatory Visit Summaryon 87-91-5365Qaxvfmztog Visit SummaryAmbulatory Visit Summary JOHNATHAN CORREA :1960 Visit Date:02/21/2025 Ambulatory Visit Instructions Your Diagnosis Male hypogonadism Your Care Team Attending Physician - Lety [...] AM EDT With: Where: [facility] [address] [address]- Wednesday 8:00 AM EDT With: Where: [facility] [address] [address]- Wednesday 8:45 AM EDT With: Carlos LIZAMA, Lety Scott Where: [facility] [address] [address]- Medications What How Much When Why Instructions [...] you for choosing us for your care. [facility] HospitalAmbulatory Visit Summaryon 32-49-6988Bzdpytjfeo Visit SummaryAmbulatory Visit Summary JOHNATHAN CORREA :1960 Visit Date:01/31/2025 Ambulatory Visit Instructions Your Care Team Attending Physician - Marlee GRIFFITH, Do Primary Care Physician - WOJCIECH LIZAMA, LUIS [...] AM EDT With: Where: [facility] [address] [id number]- Wednesday 8:00 AM EDT With: Where: [facility] [address] [id number]- Wednesday 8:45 AM EDT With: Lety Gonzalez MD Where: [facility] [address] [address]- Medications What How Much When Why Instructions [...] you for choosing us for your care. [facility] HospitalAmbulatory Visit Summaryon 44-57-5081Vhajnqtxwh Visit SummaryAmbulatory Visit Summary SUNNY JOHNATHAN Valentino :1960 Visit Date:01/17/2025 Ambulatory Visit Instructions Your Care Team Attending Physician - Marlee GRIFFITH, Do Primary Care Physician - LUIS JEFFREY MD [...] to do next Scheduled Follow-Up Appointments Wednesday. 2024 8:30 AM EDT With: Where: [facility] [address] [place] [address]- Wednesday 8:00 AM EDT With: Where: [facility] [address] [facility] [place] [address]- Wednesday 8:45 AM EDT With: Carlos LIZAMA, Lety Scott Where: [facility] [address] [place] [address]- Medications What How Much When Why Instructions [...] you for choosing us for your care. [facility] HospitalAmbulatory Visit Summaryon 66-52-0038Eljqtroeyp Visit SummaryAmbulatory Visit Summary JOHNATHAN CORREA :1960 [...] [facility] [address] [place] [address]- Wednesday 8:45 AM EDT With: Carlos LIZAMA, Lety Scott Where: [facility] [address] [place] [address]- Medications What How Much When Why Instructions [...] you for choosing us for your care. [facility] HospitalAmbulatory Visit Summaryon 49-11-7858Gkqcaldtxr Visit SummaryAmbulatory Visit Summary JOHNATHAN CORREA :1960 [...] AM EST With: Where: [facility] [address] [address]- Wednesday 8:00 AM EDT With: Where: [facility] [address] [id number]- Wednesday 8:45 AM EDT With: Lety Gonzalez MD Where: [facility] [address] [address]- You Need to Schedule the Following Appointments [...] Testosterone also gives men (more content not included)...[facility] HospitalUrology Office/Clinic Noteon 21-52-4597Tvziqax Office/Clinic Note Urology Office/Clinic Note Chief Complaint follow up HPI Staff 64 year old male here for 6 month follow up with testosterone level Previous Dx: hypogonadism, ED, bph with luts *testosterone 200mg/1ml q2wks* Last injection 10/11 Testosterone 10/18/23- Patient denies any dysuria or gross hematuria. [...] treatment options Follow-up With When Contact Information Lety Gonzalez MD, URL, URO Additional Instructions: 6 mos w/ [...] Use:. Cigarettes, Household tob (more content not included)...[facility] HospitalComment on above:Result Comment: Electronically Signed By: Lety Gonzalez MD\.br\Date and Time Signed: 10/26/24 15:15EST\.br\Electronically Co- Signed By: Felicia Elmore.br\Date and Time Co-Signed: 10/26/24 09:59 EST Testost Totalon 96-73-5546Isdhzvvcucft [Mass/Vol]732 ng/dLInvalid Interpretation Azqf629-864RzkymxTrihealth Bethesda North HospitalComment on above:Result Comment: Adult male reference interval is based on a population of healthy nonobese males (BMI <30) between 19 and 39 years old. Tayler et.al. [facility] 2017,102;3663-6856. PMID: [id number]. Performed at: [address] [id number] PhD Arianne Thorntonformed By: #### [id number] #### [facility] [address] [place], [place] [address]Zhgxnvg Totalon 56-70-2518Rahbpoeshhzz [Mass/Vol]630 ng/dL Invalid Interpretation Isea729-977IkbsypTrihealth Bethesda North HospitalComment on above: Result Comment: Adult male reference interval is based on a population of healthy nonobese males (BMI <30) between 19 and 39 years old. Tayler et.cj. [facility] 2017,102;2486-7939. PMID: [id number]. Performed at: [address] [id number] PhD Arianne Thorntonformed By: #### [id number] #### [facility] [address] [place], [place] [address]YFA auto differentialon 05-12-6244Srtqjkvdx (Bld) [#/Vol]0 10*3/uLProMedica Health SystemBasophils/100 WBC (Bld)0.5 %[facility] Health SystemEosinophils (Bld) [#/Vol]0.3 10*3/uLProMedica Health SystemEosinophils/100 WBC (Bld)3.4 %[facility] Health SystemErythrocyte distribution width (RBC) [Ratio]16.2 %High11.5 - 15.0 %[facility]ica Health SystemHematocrit (Bld) [Volume fraction]43.7 %39 - 49 %[facility]ica Health SystemHemoglobin (Bld) [Mass/Vol]15 g/dL13.0 - 17.0 g/dLOhioHealth Nelsonville Health CenterInterpretation and review of laboratory resultsAbnormalOhioHealth Nelsonville Health CenterLymphocytes (Bld) [#/Vol]1.3 10*3/uLOhioHealth Nelsonville Health CenterLymphocytes/100 WBC (Bld)14.2 %[facility] CampusH (RBC) [Entitic mass]26.7 pgLow27 - 34 pgPProvidence HospitalMCHC (RBC) [Mass/Vol]34.3 g/dL32 - 36 g/dLOhioHealth Nelsonville Health CenterMCV (RBC) [Entitic vol]78 fLLow80 - 100 [facility] HospitalMonocytes (Bld) [#/Vol]0.6 10*3/uL [facility] CenterMonocytes/100 WBC (Bld)6.6 %[facility] Neutrophils (Bld) [#/Vol]7 10*3/uLHighOhioHealth Nelsonville Health CenterNeutrophils/100 WBC (Bld)75.3 %[facility] CenterPlatelet mean volume (Bld) [Entitic vol]9 fL7 - 12 [facility] HospitalPlatelets (Bld) [#/Vol]161 10*3/uLOhioHealth Nelsonville Health CenterRBC (Bld) [#/Vol]5.61 10*6/uLOhioHealth Nelsonville Health CenterWBC corrected for nucl RBC Auto (Bld) [#/Vol]9.2PMount Nittany Medical Center Comprehensive metabolic panelon 50-00-5089Sbzhfdb [Mass/Vol]3.3 g/dL3.2 - 5.3 g/dLOhioHealth Nelsonville Health CenterALP [Catalytic activity/Vol]64 U/L39 - 130 U/L [facility] CenterALT No additional P-5'-P [Catalytic activity/Vol]15 U/L0 - 40 U/[facility] ClinicAnion gap [Moles/Vol]8 mmol/L5 - 15 mmol/L [facility] CenterAST [Catalytic activity/Vol]21 U/L0 - 41 U/[facility] ClinicBilirubin [Mass/Vol]1.1 mg/dL0.3 - 1.2 mg/dLOhioHealth Nelsonville Health Center Calcium [Mass/Vol]8.2 mg/dLLow8.5 - 10.5 mg/dLCleveland Clinic Marymount Hospital SystemChloride [Moles/Vol]101 mmol/L98 - 109 mmol/[facility] SystemCO2 [Moles/Vol]26 mmol/L22 - 32 mmol/[facility] SystemCreatinine [Mass/Vol]0.82 mg/dL0.60 - 1.30 mg/dLOhioHealth Nelsonville Health CenterComment on above:[facility] STANDARDeGFR (CKD-EPI)non-race dependent- [facility] HospitalComment on above: Reported eGFR is based on the CKD-EPI 2020 equation that does not use a race coefficient. Glucose [Mass/Vol]132 mg/rWFtzu84 - 99 mg/dLOhioHealth Nelsonville Health Center Interpretation and review of laboratory resultsAbHarlem Hospital Center Potassium [Moles/Vol]3.4 mmol/LLow3.5 - 5.0 mmol/[facility] SystemProtein [Mass/Vol]5.9 g/dLLow6.0 - 8.0 g/dLWakeMed Cary Hospitalodium [Moles/Vol]135 mmol/L134 - 146 mmol/[facility] ClinicUrea nitrogen [Mass/Vol]10 mg/dL5 - 27 mg/dLOhioHealth Nelsonville Health CenterGlucose Glucometer (BldC) [Mass/Vol]on 35-66-1218Lnsmbxd [Mass/Vol]149 mg/aCInaa23 - 99 mg/dLOhioHealth Nelsonville Health Center Interpretation and review of laboratory resultsAbHarlem Hospital Center ProMedicThe Jewish HospitalGlucose [Mass/Vol]231 mg/xMNvnq50 - 99 mg/dLOhioHealth Nelsonville Health CenterInterpretation and review of laboratory resultsAbDepartment of Veterans Affairs [facility] SystemMagnesiumon 62-89-9985Gwnzyhixm [Mass/Vol] 1.9 mg/dL1.8 - 2.6 mg/dLOhioHealth Nelsonville Health CenterMagnesium [Mass/Vol]2 mg/dL1.8 - 2.6 mg/dLOhioHealth Nelsonville Health CenterMagnesium [Mass/Vol]on 66-26-9942ShnQyikpoProvidence HospitalNo Panel Informationon 99-04-4488JvsKotgjhProvidence HospitalCBC auto differentialon 80-98-8888Uwuinvoal (Bld) [#/Vol]0.1 10*3/[facility] CenterBasophils/100 WBC (Bld)0.6 %[facility] CenterEosinophils (Bld) [#/Vol]0.2 10*3/[facility]o CenterEosinophils/100 WBC (Bld)2.5 %[facility] CenterErythrocyte distribution width (RBC) [Ratio]16.4 %High11.5 - 15.0 %[facility] CenterHematocrit (Bld) [Volume fraction]45.6 %39 - 49 % [facility] CenterHemoglobin (Bld) [Mass/Vol]15.6 g/dL13.0 - 17.0 g/dL [facility] CenterInterpretation and review of laboratory resultsAbnormal [facility] CenterLymphocytes (Bld) [#/Vol]1.1 10*3/Caro CenterLymphocytes/100 WBC (Bld)10.8 %[facility] CenterMCH (RBC) [Entitic mass]26.8 pgLow27 - 34 [facility] HospitalMCHC (RBC) [Mass/Vol]34.3 g/dL32 - 36 g/dLOhioHealth Nelsonville Health CenterMCV (RBC) [Entitic vol]78 fLLow80 - 100 fL [facility] CenterMonocytes (Bld) [#/Vol]0.6 10*3/[facility] Monocytes/100 WBC (Bld)6.5 %[facility] CenterNeutrophils (Bld) [#/Vol]7.9 10*3/[facility]aks HospitalNeutrophils/100 WBC (Bld)79.6 %[facility] CenterPlatelet mean volume (Bld) [Entitic vol]8.7 fL7 - 12 [facility] HospitalPlatelets (Bld) [#/Vol]162 10*3/[facility]o CenterRBC (Bld) [#/Vol]5.83 10*6/[facility]aks HospitalWBC corrected for nucl RBC Auto (Bld) [#/Vol]9.9Einstein Medical Center MontgomeryCobalamin (Vitamin B12) [Mass/Vol]on 25-72-6068MtlOhhqptProvidence HospitalComprehensive metabolic panelon 03-93-6289Xdjxmzt [Mass/Vol]3.6 g/dL3.2 - 5.3 g/dLProOhio Valley Hospital SystemALP [Catalytic activity/Vol]66 U/L39 - 130 U/[facility] SystemALT No additional P-5'-P [Catalytic activity/Vol]15 U/L0 - 40 U/[facility] SystemAnion gap [Moles/Vol]8 mmol/L5 - 15 mmol/[facility] SystemAST [Catalytic activity/Vol]22 U/L0 - 41 U/[facility] SystemBilirubin [Mass/Vol]1.3 mg/dLHigh0.3 - 1.2 mg/dLCleveland Clinic Marymount Hospital SystemCalcium [Mass/Vol] 8.6 mg/dL8.5 - 10.5 mg/dLProFairfield Medical CenterChloride [Moles/Vol]99 mmol/L98 - 109 mmol/[facility] SystemCO2 [Moles/Vol]30 mmol/L22 - 32 mmol/L [facility] CenterCreatinine [Mass/Vol]0.91 mg/dL0.60 - 1.30 mg/dLOhioHealth Nelsonville Health CenterComment on above:METHOD [facility] STANDARDeGFR (CKD-EPI)non-race dependent- [facility] HospitalComment on above: Reported eGFR is based on the CKD-EPI 2020 equation that does not use a race coefficient. Glucose [Mass/Vol]136 mg/bUNapo16 - 99 mg/dLCleveland Clinic Marymount Hospital SystemPotassium [Moles/Vol]3.9 mmol/L3.5 - 5.0 mmol/LPrPioneers Medical Center Health SystemProtein [Mass/Vol] 6.7 g/dL6.0 - 8.0 g/dLCleveland Clinic Marymount Hospital SystemSodium [Moles/Vol]137 mmol/L134 - 146 mmol/[facility] SystemUrea nitrogen [Mass/Vol]11 mg/dL5 - 27 mg/dL [facility] CenterFerritinon 71-17-5419Kurxrzbd [Mass/Vol]96 ng/mL24 - 336 ng/mLOhioHealth Nelsonville Health CenterFerritin [Mass/Vol]on 39-69-5241CfjZtifiv Health SystemFolateon 70-98-5312Qtcogx [Mass/Vol]8.4 ng/mL5.8 - PINF ng/mLOhioHealth Nelsonville Health CenterComment on above:NEW REFERENCE RANGEFolate [Mass/Vol]on 07-27-2024 [facility] CenterGlucose Glucometer (BldC) [Mass/Vol]on 80-92-3802Xjvpyti [Mass/Vol]203 mg/aAAoao38 - 99 mg/dLOhioHealth Nelsonville Health CenterInterpretation and review of laboratory resultsAbnoLehigh Valley Hospital - Schuylkill South Jackson StreetGlucose [Mass/Vol]190 mg/wWGwyg19 - 99 mg/dLOhioHealth Nelsonville Health Center Interpretation and review of laboratory resultsAbnoSouthwest Health CenterGlucose [Mass/Vol]130 mg/hDHvcm89 - 99 mg/dLOhioHealth Nelsonville Health CenterInterpretation and review of laboratory resultsAbnormUniversity of Pennsylvania Health SystemIron and TIBCon 98-64-5341Urrcqkbowtnkkg and review of laboratory resultsAbnoCape Fear Valley Medical CenterIron [Mass/Vol]34 ug/dLLow50 - 212 ug/dLMetroHealth Parma Medical Centern binding capacity [Mass/Vol]283 ug/dL250 - 425 ug/dLMetroHealth Parma Medical Centern saturation [Mass fraction]12Low [facility] MontgomeryMagnesiumon 64-39-3077Gwfonkxsk [Mass/Vol]1.7 mg/dLLow1.8 - 2.6 mg/dLOhioHealth Nelsonville Health CenterNo Panel Information on 27-55-9485Crjqbgjrpeddee and review of laboratory resultsAbPenn State Health Milton S. Hershey Medical CenterVitamin B12on 44-61-2336Slvexerou (Vitamin B12) [Mass/Vol]268 pg/mL180 - 914 pg/mLOhioHealth Nelsonville Health CenterCBC auto differentialon 78-82-1776Czndsirrc (Bld) [#/Vol]0.1 10*3/uLOhioHealth Nelsonville Health CenterBasophils/100 WBC (Bld)0.5 %[facility] CenterEosinophils (Bld) [#/Vol]0.1 10*3/[facility] CenterEosinophils/100 WBC (Bld)0.9 %[facility] CenterErythrocyte distribution width (RBC) [Ratio]16.8 %High11.5 - 15.0 %[facility] CenterHematocrit (Bld) [Volume fraction]46 %39 - 49 %[facility] CenterHemoglobin (Bld) [Mass/Vol]15.5 g/dL13.0 - 17.0 g/dLOhioHealth Nelsonville Health CenterInterpretation and review of laboratory resultsAbnoCape Fear Valley Medical CenterLymphocytes (Bld) [#/Vol]1.3 10*3/[facility] Lymphocytes/100 WBC (Bld)8 %[facility] CenterMCH (RBC) [Entitic mass]26.5 pgLow27 - 34 [facility] HospitalMCHC (RBC) [Mass/Vol]33.8 g/dL32 - 36 g/dL [facility] CenterMCV (RBC) [Entitic vol]78 fLLow80 - 100 [facility] HospitalMonocytes (Bld) [#/Vol]1.2 10*3/[facility] Monocytes/100 WBC (Bld)7.5 %[facility] CenterNeutrophils (Bld) [#/Vol]13.3 10*3/[facility]aks HospitalNeutrophils/100 WBC (Bld)83.1 %[facility] CenterPlatelet mean volume (Bld) [Entitic vol]9.3 fL7 - 12 [facility] HospitalPlatelets (Bld) [#/Vol]130 10*3/[facility] HospitalRBC (Bld) [#/Vol]5.87 10*6/[facility]aks HospitalWBC corrected for nucl RBC Auto (Bld) [#/Vol]15.9HGuthrie Clinic Comprehensive metabolic panelon 59-85-7364Ijasoet [Mass/Vol]3.5 g/dL3.2 - 5.3 g/dLOhioHealth Nelsonville Health CenterALP [Catalytic activity/Vol]69 U/L39 - 130 U/L [facility] CenterALT No additional P-5'-P [Catalytic activity/Vol]11 U/L0 - 40 U/[facility] ClinicAnion gap [Moles/Vol]9 mmol/L5 - 15 mmol/L [facility] CenterAST [Catalytic activity/Vol]17 U/L0 - 41 U/[facility] ClinicBilirubin [Mass/Vol]1.3 mg/dLHigh0.3 - 1.2 mg/dLOhioHealth Nelsonville Health CenterCalcium [Mass/Vol]8.4 mg/dLLow8.5 - 10.5 mg/dLOhioHealth Nelsonville [facility] Center Chloride [Moles/Vol]101 mmol/L98 - 109 mmol/[facility] SystemCO2 [Moles/Vol]30 mmol/L22 - 32 mmol/[facility] ClinicCreatinine [Mass/Vol] 0.93 mg/dL0.60 - 1.30 mg/dLOhioHealth Nelsonville Health CenterComment on above:METHOD TRACEABLE TO IDOR STANDARDeGFR (CKD-EPI)non-race dependent- [facility] HospitalComment on above: Reported eGFR is based on the CKD-EPI 2020 equation that does not use a race coefficient. Glucose [Mass/Vol]134 mg/eDMuzk14 - 99 mg/dLOhioHealth Nelsonville Health Center Interpretation and review of laboratory resultsAbHarlem Hospital Center Potassium [Moles/Vol]3.9 mmol/L3.5 - 5.0 mmol/[facility] ClinicProtein [Mass/Vol]6.3 g/dL6.0 - 8.0 g/dLWakeMed Cary Hospitalodium [Moles/Vol]140 mmol/L134 - 146 mmol/[facility] ClinicUrea nitrogen [Mass/Vol]16 mg/dL5 - 27 mg/dLOhioHealth Nelsonville Health CenterGlucose Glucometer (BldC) [Mass/Vol]on 82-15-7707Qgvbasg [Mass/Vol]143 mg/kVPyps67 - 99 mg/dLOhioHealth Nelsonville Health Center Interpretation and review of laboratory resultsAbAscension All Saints HospitalGlucose [Mass/Vol]143 mg/xFBxrn75 - 99 mg/dLOhioHealth Nelsonville Health CenterInterpretation and review of laboratory resultsAbPenn State Health Milton S. Hershey Medical CenterGlucose [Mass/Vol]177 mg/yXDuuy22 - 99 mg/dL [facility] SystemInterpretation and review of laboratory resultsAbnormal ProMbryce hospitala [facility] SystemProOhio Valley Hospital SystemGlucose [Mass/Vol]141 mg/uZWlsn42 - 99 mg/dLProOhio Valley Hospital SystemInterpretation and review of laboratory results AbnormalProFairfield Medical CenterProOhio Valley Hospital SystemGlucose [Mass/Vol]143 mg/mORjxd93 - 99 mg/dLCleveland Clinic Marymount Hospital SystemInterpretation and review of laboratory resultsAbnormalOhioHealth Nelsonville Health CenterProOhio Valley Hospital SystemLactate (P yoan) [Moles/Vol]on 68-22-7924MrqAotbqeProvidence HospitalLactate w/ Reflexon 59-14-0558Ztbnaek (P yoan) [Moles/Vol]1.4 mmol/L0.4 - 2.0 mmol/LPrTrinity Health System West CampusComment on above: Result did not trigger repeat Lactate, re-order if needed. Magnesiumon 97-09-5259Eidesimhn [Mass/Vol]2 mg/dL1.8 - 2.6 mg/dLOhioHealth Nelsonville Health CenterNo Panel Informationon 91-79-2501WpoGtqcei Health SystemUrinalysison 34-00-7371Gvbnohvuz Ql (U)SMALLAbnormalNegative^NegativeOhioHealth Nelsonville Health Center Comment on above:Not confirmed, interpret positive results with caution.Color (U)YELLOWYELLOW^YELLOWOhioHealth Nelsonville Health CenterGlucose (U) [Mass/Vol]100 mg/dL AbnormalNegative^NegativeOhioHealth Nelsonville Health CenterHemoglobin Auto test strip Ql (U)NegativeNegative^NegativeOhioHealth Nelsonville Health CenterInterpretation and review of laboratory resultsAbnormalCleveland Clinic Marymount Hospital SystemKetones (U) [Mass/Vol]Negative Negative^Negative mg/dLOhioHealth Nelsonville Health CenterLeukocyte esterase Auto test strip Ql (U)NegativeNegative^NegativeOhioHealth Nelsonville Health CenterNitrite Auto test strip Ql (U)NegativeNegative^NegativeOhioHealth Nelsonville Health CenterpH (U)6.5 [pH]5.0 - 8.5 [facility] SystemProtein (U) [Mass/Vol]TraceAbnormalNegative^Negative mg/dLOhioHealth Nelsonville Health CenterRBC Auto (Urine sed) [#/Area]2PFirstHealth Moore Regional Hospital - Richmondpecific gravity Refractometry automated (U) [Rel density]1.0251.003 - 1.035OhioHealth Nelson[facility] Health CenterTurbidity Ql (U)CLEARCLEAR^CLEAROhioHealth Nelsonville Health CenterUrobilinogen Qn (U)4HighNITenet St. LouisWBC Auto (Urine sed) [#/Area][address] [place], [place] [address]CBC auto differentialon 63-05-1610Pkjnguzhv (Bld) [#/Vol]0 10*3/uLOhioHealth Nelsonville Health CenterBasophils/100 WBC (Bld)0.3 %[facility] CenterEosinophils (Bld) [#/Vol]0 10*3/uLOhioHealth Nelsonville Health CenterEosinophils/100 WBC (Bld)0.2 %[facility] CenterErythrocyte distribution width (RBC) [Ratio]16.9 %High11.5 - 15.0 %[facility] Hematocrit (Bld) [Volume fraction]51.3 %High39 - 49 %[facility] Hemoglobin (Bld) [Mass/Vol]17.2 g/zWGvzk85.0 - 17.0 g/dLOhioHealth Nelsonville Health Center Interpretation and review of laboratory resultsAbnormChildren's Hospital of Columbus Lymphocytes (Bld) [#/Vol]1 10*3/uLOhioHealth Nelsonville Health CenterLymphocytes/100 WBC (Bld)5.8 %[facility] CenterMCH (RBC) [Entitic mass]26.4 pgLow27 - 34 pg [facility] CenterMCHC (RBC) [Mass/Vol]33.5 g/dL32 - 36 g/dLOhioHealth Nelsonville Health CenterMCV (RBC) [Entitic vol]79 fLLow80 - 100 [facility] Monocytes (Bld) [#/Vol]1.2 10*3/uLHighOhioHealth Nelsonville Health CenterMonocytes/100 WBC (Bld)6.6 %[facility] CenterNeutrophils (Bld) [#/Vol]15.2 10*3/uLHigh [facility] CenterNeutrophils/100 WBC (Bld)87.1 %[facility] Platelet mean volume (Bld) [Entitic vol]9.4 fL7 - 12 [facility] Platelets (Bld) [#/Vol]153 10*3/uLCleveland Clinic Marymount Hospital SystemRBC (Bld) [#/Vol]6.51 10*6/uLChesapeake Regional Medical CenterWBC corrected for nucl RBC Auto (Bld) [#/Vol] 17.5HighEinstein Medical Center MontgomeryComprehensive metabolic panelon 69-02-2947Fzkumiw [Mass/Vol]3.8 g/dL3.2 - 5.3 g/dLOhioHealth Nelsonville Health CenterALP [Catalytic activity/Vol]57 U/L39 - 130 U/[facility] SystemALT No additional P-5'-P [Catalytic activity/Vol]12 U/L0 - 40 U/[facility] ClinicAnion gap [Moles/Vol]9 mmol/L5 - 15 mmol/[facility] ClinicAST [Catalytic activity/Vol]20 U/L0 - 41 U/[facility] ClinicBilirubin [Mass/Vol]1.3 mg/dLHigh0.3 - 1.2 mg/dLOhioHealth Nelsonville Health CenterCalcium [Mass/Vol] 8.4 mg/dLLow8.5 - 10.5 mg/dLOhioHealth Nelsonville Health CenterChloride [Moles/Vol]102 mmol/L98 - 109 mmol/[facility] SystemCO2 [Moles/Vol]28 mmol/L22 - 32 mmol/[facility] ClinicCreatinine [Mass/Vol]0.98 mg/dL0.60 - 1.30 mg/dL [facility] CenterComment on above:METHOD [facility] STANDARDeGFR (CKD-EPI)non-race vqllgryvf31- [facility] HospitalComment on above: Reported eGFR is based on the CKD-EPI 2020 equation that does not use a race coefficient. Glucose [Mass/Vol]179 mg/hUSoxz16 - 99 mg/dLOhioHealth Nelsonville Health Center Interpretation and review of laboratory resultsAbnormChildren's Hospital of Columbus Potassium [Moles/Vol]4.1 mmol/L3.5 - 5.0 mmol/[facility] SystemProtein [Mass/Vol]6.7 g/dL6.0 - 8.0 g/dLWakeMed Cary Hospitalodium [Moles/Vol]139 mmol/L134 - 146 mmol/LProMedica Ohiohealth [facility] Hospital SystemUrea nitrogen [Mass/Vol]21 mg/dL5 - 27 mg/dLOhioHealth Nelsonville Health CenterGlucose Glucometer (BldC) [Mass/Vol]on 83-47-6391Lklvfis [Mass/Vol]178 mg/dISoub95 - 99 mg/dLOhioHealth Nelsonville Health Center Interpretation and review of laboratory resultsAbnormWarren General HospitalGlucose [Mass/Vol]167 mg/wLRoux58 - 99 mg/dLOhioHealth Nelsonville Health CenterInterpretation and review of laboratory resultsAbnormChildren's Hospital of ColumbusProOhio Valley Hospital SystemMagnesiumon 99-46-8176Ymzxclhyp [Mass/Vol] 2.2 mg/dL1.8 - 2.6 mg/dLOhioHealth Nelsonville Health CenterNo Panel Informationon 07-25-2024 [facility] CenterXR Abdomen APon 02-15-0495DBMK: XR ABDOMEN AP 1 VW CLINICAL INFORMATION: [...] by Segundo Fontanez MD on 07/25/2024 3:27 [facility], Segundo Bedolla MD - 07/25/2024 EXAM: XR ABDOMEN AP [...] Fontanez MD on 07/25/2024 3:27 PM [facility] CenterRadiology Study observation (narrative)[facility] CenterXR Abdomen APOrdered By: Segundo Fontanez on 43-10-1641FsuSsraaeProvidence Hospital Work Phone: basic Metabolic Panelon 89-96-8026Wmucj gap [Moles/Vol]9 mmol/L5 - 15 mmol/[facility] SystemCalcium [Mass/Vol]8.4 mg/dLLow8.5 - 10.5 mg/dLOhioHealth Nelsonville Health CenterChloride [Moles/Vol]104 mmol/L98 - 109 mmol/[facility] SystemCO2 [Moles/Vol]22 mmol/L22 - 32 mmol/L [facility] CenterCreatinine [Mass/Vol]0.9 mg/dL0.60 - 1.30 mg/dLOhioHealth Nelsonville Health CenterComment on above:METHOD TRACEABLE TO IDOR STANDARDeGFR (CKD-EPI)non-race dependent- PINMid Missouri Mental Health CenterComment on above: Reported eGFR is based on the CKD-EPI 2020 equation that does not use a race coefficient. Glucose [Mass/Vol]218 mg/zLIdxn79 - 99 mg/dLOhioHealth Nelsonville Health CenterPotassium [Moles/Vol]4.2 mmol/L3.5 - 5.0 mmol/Mission Hospitalodium [Moles/Vol] 135 mmol/L134 - 146 mmol/[facility] SystemUrea nitrogen [Mass/Vol]24 mg/dL5 - 27 mg/dLOhioHealth Nelsonville Health CenterCBC without diffon 03-08-3215Wqjgjtrqujd distribution width (RBC) [Ratio]16.9 %High11.5 - 15.0 %[facility] Hematocrit (Bld) [Volume fraction]52.1 %High39 - 49 %[facility] Hemoglobin (Bld) [Mass/Vol]17.5 g/iBYvuy05.0 - 17.0 g/dLOhioHealth Nelsonville Health Center Interpretation and review of laboratory resultsAbnormalOhioHealth Nelsonville Health Center MCH (RBC) [Entitic mass]26.4 pgLow27 - 34 Holzer HospitalMCHC (RBC) [Mass/Vol]33.6 g/dL32 - 36 g/dLOhioHealth Nelsonville Health CenterMCV (RBC) [Entitic vol]79 fLLow80 - 100 [facility] HospitalPlatelet mean volume (Bld) [Entitic vol] 8.9 fL7 - 12 [facility] SystemPlatelets (Bld) [#/Vol]158 10*3/uL [facility] CenterRBC (Bld) [#/Vol]6.62 10*6/uLChesapeake Regional Medical Center WBC corrected for nucl RBC Auto (Bld) [#/Vol]16.3HMayo Clinic Health System– ArcadiaECG 12 leadon 43-50-1650PUWWDPYENDOAJZNkhDfzbwg Health SystemGlucose Glucometer (BldC) [Mass/Vol]on 52-86-5419Pexiwmw [Mass/Vol]151 mg/yRUddj14 - 99 mg/dLOhioHealth Nelsonville Health CenterInterpretation and review of laboratory resultsAbnoLehigh Valley Hospital - Schuylkill South Jackson StreetGlucose [Mass/Vol]202 mg/zIVngp50 - 99 mg/dLOhioHealth Nelsonville Health CenterInterpretation and review of laboratory resultsAbnoLehigh Valley Hospital - Schuylkill South Jackson StreetLipaseon 39-32-8828Sxdbfc [Catalytic activity/Vol]10 U/LLow11 - 82 U/L [facility] CenterLiver panelon 20-68-0272Qaebqcd [Mass/Vol]3.8 g/dL3.2 - 5.3 g/dLOhioHealth Nelsonville Health CenterALP [Catalytic activity/Vol]51 U/L39 - 130 U/L [facility] CenterALT No additional P-5'-P [Catalytic activity/Vol]14 U/L0 - 40 U/LPrTrinity Health System West CampusAST [Catalytic activity/Vol]26 U/L0 - 41 U/L [facility] CenterBilirubin [Mass/Vol]1.2 mg/dL0.3 - 1.2 mg/dLOhioHealth Nelsonville Health CenterBilirubin.direct [Mass/Vol]0.2 mg/dL0.0 - 0.4 mg/dLOhioHealth Nelsonville Health CenterProtein [Mass/Vol]6.6 g/dL6.0 - 8.0 g/dLEinstein Medical Center MontgomeryMagnesiumon 94-07-2200Epzfpmgpy [Mass/Vol]2.3 mg/dL1.8 - 2.6 mg/dL [facility] CenterMagnesium [Mass/Vol]1.6 mg/dLLow1.8 - 2.6 mg/dLOhioHealth Nelsonville Health CenterMagnesium [Mass/Vol]on 16-26-9668CxhDeexvbProvidence HospitalNo Panel Informationon 11-76-3608Zsgzjpigcyfnjn and review of laboratory resultsAbnormal [facility] MontgomeryPhosphoruson 97-67-2565Rotfogijd [Mass/Vol]3 mg/dL2.4 - 4.9 mg/dLOhioHealth Nelsonville Health CenterXR Abdomen APon 94-24-5073Ltinoyc single view Clinical history:SBO abdominal pain bowel [...] by Mayito Gonzalez MD on 07/24/2024 2:21 PMSECTRAMultiCare Valley HospitalMayito olivier MD - 07/24/2024 Abdomen single view Clinical [...] Mayito Gonzalez MD on 07/24/2024 2:21 PM [facility] CenterRadiology Study observation (narrative)[facility] CenterXR Abdomen APOrdered By: Mayito Gonzalez on 89-93-2723WszUrrgppProvidence Hospital Work Phone: Ambulatory Visit Summaryon 98-43-2380Zmfvhishlb Visit SummaryAmbulatory Visit Summary JOHNATHAN CORREA :1960 [...] AM EDT With: Where: [facility] [address] [place] [address]- Wednesday 8:00 AM EST With: Where: [facility] [address] [facility] [place] [address]- Wednesday 8:00 AM EST With: Where: [facility] [address] [place] [address]- Wednesday 8:00 AM EST With: Where: [facility] [address] [place] [address]- Wednesday 10:00 AM EST With: Lety Gonzalez MD Where: [facility] [address] [facility] [place] [address]- Wednesday 9:45 AM EST With: Lety Gonzalez MD Where: [facility] [address] [place] [address]- Medications What How Much When Why Instructions [...] you for choosing us for your care. [facility] HospitalAmbulatory Visit Summaryon [phone] Visit SummaryAmbulatory Visit Summary JOHNATHAN CORREA :1960 [...] AM EDT With: Where: [facility] [address] [place] [address]- Wednesday 8:00 AM EDT With: Where: [facility] [address] [facility] [place] [address]- Wednesday 8:00 AM EST With: Where: [facility] [address] [address]- Wednesday 10:00 AM EST With: Carlos LIZAMA, Lety Scott Where: [facility] [address] [place] [address]- Medications What How Much When Why Instructions [...] you for choosing us for your care. [facility] HospitalAmbulatory Visit Summaryon 37-10-5640Lsiijmumjd Visit SummaryAmbulatory Visit Summary SUNNY JOHNATHAN Valentino :1960 Visit Date:05/02/2024 Ambulatory Visit Instructions Your [...] AM EDT With: Where: [facility] [address] [address]- Wednesday 10:00 AM EST With: Lety Gonzalez MD Where: [facility] [address] [address]- Medications What How Much When Why Instructions [...] you for choosing us for your care. [facility] HospitalNo Panel Informationon 73-06-3888Hqfjzvr Gcijnre738OrafzggibMartins Ferry HospitalAmbulatory Visit Summaryon 95-84-0991Quinexjvby Visit SummaryAmbulatory Visit Summary JOHNATHAN CORREA :1960 [...] [facility] [address] [place] [address]- Wednesday 10:00 AM EST With: Carlos LIZAMA, Lety Scott Where: [facility] [facility] [address] [place] [address]- Medications What How Much When Why Instructions [...] you for choosing us for your care. [facility] HospitalAmb[facility] Visit Summaryon 37-41-4683Ebkfwvophe Visit SummaryAmbulatory Visit Summary JOHNATHAN CORREA Chelsy :1960 Visit Date:03/08/2024 Ambulatory Visit Instructions Your [...] [facility] of [facility] OhioInvalid Interpretation [address] [place] [address]- [phone]\.br\ Wednesday 10:00 AMEST \.br\ With: Carlos LIZAMA, Lety Scott\.br\ [facility]Amb[facility] SummaryAmbulatory Visit Summary JOHNATHAN CORREA :1960 Visit Date:03/08/2024 Ambulatory Visit Instructions Your Diagnosis Hypogonadism male ED (erectile dysfunction) BPH without urinary obstruction Your Care Team Attending Physician - Carlos LIZAMA, Lety Scott Primary Care Physician - WOJCIECH LIZAMA, LUIS This Is Your Medications List Contact prescribing [...] AM EDT With: Where: [facility] Interpretation [address] [place] [address]- \.br\ Wednesday 10:00 AMEST \.br\ With: Carlos LIZAMA, Lety Scott\.br\ Where: [facility] 42-67-6647YzxbwwtkwAbsrhtpng From: Amelia Winslow To: PAO - Recalls Carlos; Sent: 09/15/2023 08:41:01 EST Show up: 02/14/2024 09:40:00 EDT Subject: PSA, Hct, and T level Reminder Message Please Remember to:_have pt get PSA, T level, and Hct done prior to appt. Internal lab orders in place. Pt seen 03/08/24 w/ new labs.[facility] HospitalUrology Office/Clinic Noteon 05-66-9799Gtuctgq Office/Clinic NoteUrology Office/Clinic Note Chief Complaint 6m [...] Information Carlos LIZAMA, Lety Scott, URL, URO [address] [place] [phone] Additional Instructions: 6 mos w/ T level [...] tobacco concerns: No. Yes, (more content not included)...NormalTrihealth Bethesda North HospitalComment on above:Result Comment: Electronically Signed By: Lety Gonzalez MD\.br\Date and Time Signed: 03/08/24 09:15EDT\.br\Electronically Co-Signed By: Amelia Winslow\.br\Date and Time Co- Signed: 03/08/24 08:46 EDTTestost Totalon 75-34-9252Naahupzruron [Mass/Vol]547 ng/dLInvalid Interpretation Klrg705-127DswlofTrihealth Bethesda North HospitalComment on above:Result Comment: Adult male reference interval is based on a population of healthy nonobese males (BMI <30) between 19 and 39 years old. Tayler et.al. JCEM 2017,102;1752-1261. PMID: 98599376. Performed at: [facility] [address] [id number] PhD Arianne Thorntonformed By: #### [id number] #### [facility] [address] [place], [place] [address]AafX9njk 80-12-4238JnR0e (Bld) [Mass fraction]8.5 %High<=5.9 [facility] North HospitalComment on above:Performed By: #### [id number] #### [facility] [address] [place], [place] [address]IHO With T4fr Reflexon 90-43-1518RRY Qn1.67 m[IU]/LNormal 0.34-5.60[facility] North HospitalComment on above:Performed By: #### [id number] #### [facility] [address] [place], [place] [address]VCSBkkcmty By: SYSTEM SYSTEM on 77-46-7394Dbpcz gap [Moles/Vol] 11 mmol/L6-16Remisol ChemComment on above:Performed By: #### [id number] #### [facility] [address] [place], [place] [address]Bwhbopa [Mass/Vol]9.3 mg/dL8.9-11.1Remisol ChemComment on above:Performed By: #### [id number] #### [facility] [address] [place], [place] [address]Gxygnxex [Moles/Vol]95 mmol/NHcb594-302Ndpjhsg ChemComment on above:Performed By: #### [id number] #### [facility] [address] [place], [place] [address]DA4 [Moles/Vol]29 mmol/U50-78Xakverr ChemComment on above: Performed By: #### [id number] #### [facility] [address] [place], [place] [address]Byftxgkhdn [Mass/Vol]1.3 mg/dL0.5-1.3Remisol ChemComment on above:Performed By: #### [id number] #### [facility] [address] [place], [place] [address]Gewrmuk [Mass/Vol]229 mg/qITahr30-928Bwzvivp ChemComment on above:Performed By: #### [id number] #### [facility] [address] [place] [address]Sseegsicj [Moles/Vol]5.3 mmol/L3.5-5.3Remisol ChemComment on above:Performed By: #### [id number] #### [facility] [address] [place] [address]Wajxvq [Moles/Vol]130 mmol/SIob762-703Dtktyvy ChemComment on above:Performed By: #### [id number] #### [facility] [address] [place] [address]Iajq nitrogen [Mass/Vol]20 mg/dL5-21Remisol ChemComment on above:Performed By: #### [id number] #### [facility] [address] [place] [address]CRHop 99-26-7332Eqky nitrogen/Creatinine [Mass ratio]15 No UbxhxKenzga39-26Jcshyk [facility] CenterComment on above:Performed By: #### [id number] #### [facility] [address] [place] [address]ANG w/ Auto DiffOrdered By: SYSTEM SYSTEM on 03-01-2024 Basophils/100 WBC (Bld)0.7 %Normal0.0-2.0Remisol HemeComment on above:Performed By: #### [id number] #### [facility] [address] [place] [address]Abfduwykn/Leukocytes Auto (Bld) [Pure # fraction]0.1 E9/LNormal 0.0-0.2Remisol HemeComment on above:Performed By: #### [id number] #### [facility] [address] [place] [address]Djfhuhrsebh (Bld) [#/Vol]0.3 E9/LNormal0.0-0.5Remisol Heme Comment on above:Performed By: #### [id number] #### [facility] [address] [place] [address]Wssuobfovjo/100 WBC (Bld)3.7 %Normal0.0-8.0Remisol HemeComment on above:Performed By: #### [id number] #### [facility] [address] [place] [address]Eyygbrrgini distribution width (RBC) [Ratio]16.7 %High10.9-14.2 Remisol HemeComment on above:Performed By: #### [id number] #### [facility] [address] [place] [address]86[address]Xuwnkoaviy (Bld) [Volume fraction]48.4 %Nekufz42.7-49.0Remisol HemeComment on above:Performed By: #### [id number] #### [facility] [address] [place] [address]Nnbekpbvue (Bld) [Mass/Vol]16.1 g/oYZtcuxg64.5-17.5Remisol Heme Comment on above:Performed By: #### [id number] #### [facility] [address] [place] [address]Ksdgjpatlkl (Bld) [#/Vol]1.3 E9/LNormal1.0-4.0Remisol Heme Comment on above:Performed By: #### [id number] #### [facility] [address] [place] [address]Jdpsbptyfqw/100 WBC (Bld)15.4 %Rvpkzw17.0-50.0Remisol Heme Comment on above:Performed By: #### [id number] #### [facility] [address] [place] [address]WHN (RBC) [Entitic mass]26.6 pgLow27.0-34.0Remisol HemeComment on above:Performed By: #### [id number] #### [facility] [address] [place], [place] [address]YTIO (RBC) [Mass/Vol]33.3 g/eSVipowf87.4-36.0Remisol Heme Comment on above:Performed By: #### [id number] #### [facility] [address] [place], [place] [address]AAF (RBC) [Entitic vol]79.9 fLLow80.0-100.0Remisol HemeComment on above:Performed By: #### [id number] #### [facility] [address] [place], [place] [address]Nqozrxans (Bld) [#/Vol]0.6 E9/LNormal0.2-1.0Remisol HemeComment on above:Performed By: #### [id number] #### [facility] [address] [place] [address]Ftnqwdqdffc (Bld) [#/Vol]6.3 E9/LNormal2.0-7.5Remisol Heme Comment on above:Performed By: #### [id number] #### [facility] [address] [place], [place] [address]Ufamqsnnmtd/100 WBC (Bld)73.2 %Rhpzcn11.0-75.0Remisol Heme Comment on above:Performed By: #### [id number] #### [facility] [address] [place], [place] [address]Jodanzho mean volume (Bld) [Entitic vol]10.0 fLNormal6.4-10.8 Remisol HemeComment on above:Performed By: #### [id number] #### [facility] [address] [place], [place] [address]Sjmpojxhr (Bld) [#/Vol]201.0 E9/XXjbqhv825.0-500.0Remisol Heme Comment on above:Performed By: #### [id number] #### [facility] [address] [place], [place] [address]BIA (Bld) [#/Vol]6.1 E12/LHigh4.3-5.9Remisol HemeComment on above:Performed By: #### [id number] #### [facility] [address] [place], [place] [address]SXE corrected for nucl RBC Auto (Bld) [#/Vol]8.6 E9/LNormal 4.0-11.0Remisol HemeComment on above:Performed By: #### [id number] #### [facility] [address] [place], [place] [address]CNZLBIEJBVyxukdt By: SYSTEM SYSTEM on 97-57-9877Xjrs nitrogen/Creatinine [Mass ratio]15 mg/brHwtkwg70 - 20Remisol ChemEstimated glomerular filtration rate (GFR) non- Americanon 30-73-6294RCV/1.73 sq M.predicted among non-blacks MDRD (S/P/Bld) [Vol rate/Area]62 mL/min/1.73 m2>=59 [facility] HospitalHEMATOLOGYOrdered By: SYSTEM SYSTEM on 59-75-0828Hpbrgoldg/100 WBC (Bld)7.0 %Normal4.0 - 14.0 %Remisol HemeLaboratory - Chemistry and Chemistry - challengeon 43-45-8944OWD Qn1.67 m[IU]/L0.34-5.60 [facility] HospitalLaboratory - Hematology and Cell countson 29-83-3968QbK8s (Bld) [Mass fraction]8.5 %High<=5.9[facility] HospitalNo Panel Informationon 63-26-1019SCW/Creatinine Ratio15 No Putev36-50 [facility] HospitalPSA Screen, TotalOrdered By: SYSTEM SYSTEM on 88-58-2468Gswjzbgv specific Ag [Mass/Vol]0.8 ng/mLNormal0.1-3.5Remisol Chem Comment on above:Interpretive Data: The concentration of PSA determined by different manufacturers can vary due to differences in assay methods and reagent specificity. Values obtained from different assay methods cannot be used interchangeably. The methodology used for this result was chemiluminescence using [employer]'s Access Hybritech PSA reagent.Result Comment: The concentration of PSA determined by different manufacturers can vary due to diffe rences in assay methods and reagent specificity. Values obtained from different assay methods cannot be used interchangeably. The methodology used for this result was chemiluminescence using [employer]'s Access Hybritech PSA reagent.Performed By: #### [id number] #### [facility] [address] [place], [place] [address]Ylarohswi Orderon 10-66-5443Pgfygeapv Order [id number]#1.00TIFFNormalFisher [facility] Medical CentereGFROrdered By: SYSTEM SYSTEM on 75-63-8154hYFK68 mL/min/1.73 b9Btzzpy>=59 Remisol ChemComment on above:Order Comment: Order added by Discern Expert. Performed By: #### [id number] #### [facility] [address] [place], [place] [address]Jglxuqpzle Visit Summaryon 96-51-0788Xqmpfjpvev Visit Summary JOHNATHAN CORREA :1960 Visit Date:02/09/2024 [...] AM EDT With: Where: [facility] [place] [address] [place] [address]- \.br\ Medications\.br\ What How Much When Why [...] you for choosing us for your care.\.br\ \.br\[facility] HospitalAmbulatory Visit Summaryon 98-47-2207Xqmeuywygh Visit Summary JOHNATHAN CORREA :1960 Visit Date:01/25/2024 [...] AM EDT With: Where: [facility] [place] [id number] \.br\ Medications\.br\ What How Much When Why [...] Hypogonadism male ED (erectile dysfunction) Pickup at [id number]\.br\ Pharmacy Information\.br\ [id number]: [address], [place] [id number] [phone]\.br\ Medications and Immunizations Administered\.br\ Given\.br\ Depo- Testosterone [...] you for choosing us for your care.\.br\ \.br\[facility] Ambulatory Visit Summaryon 60-46-1851Jtjrgaktwv Visit Summary JOHNATHAN CORREA :1960 Visit Date:01/11/2024 [...] EDT With: Where: [facility] [address] [place] [id number] \.br\ Medications\.br\ What How Much When Why [...] you for choosing us for your care.\.br\ \.br\[facility] HospitalAmbulatory Visit Summaryon 81-30-8197Gsqpbyxpzw Visit Summary JOHNATHAN CORREA :1960 Visit Date:12/28/2023 [...] AM EDT With: Where: [facility] [place] [address] [place] [address]- \.br\ Medications\.br\ What How Much When Why [...] you for choosing us for your care.\.br\ \.br\[facility] HospitalAmbulatory Visit Summaryon 39-68-8061Nqerbburle Visit Summary SUNNYJOHNATHAN :1960 Visit Date:12/14/2023 Ambulatory Visit Instructions Your [...] EDT With: Where: [facility] [address] [place] [address]- \.br\ Medications\.br\ What How Much When Why [...] you for choosing us for your care.\.br\ \.br\[facility] CenterBasophils Auto (Bld) [#/Vol]on 07-59-6850Ckprmtmvo (Bld) [#/Vol]0.1 10 3/uL0.0-0.1 [facility] HospitalBasophils/100 WBC Auto (Bld)on 12-01-2023 Basophils/100 WBC (Bld)0.8 %0.2-2.0[facility] HospitalCholesterol in LDL Calc [Mass/Vol]on 24-43-6473Pebvvvfqvhf in LDL [Mass/Vol]69.0 mg/dL [facility] HospitalComment on above:<100 mg/dl LJEXDHF176-167 mg/dl NEAR OR ABOVE RUYMISG629-158 mg/dl BORDERLINE CFKC642-784 mg/dl HIGH>190 mg/dl VERY HIGHCholesterol in VLDL Calc [Mass/Vol]on 98-59-4734Nwysyfnecww in VLDL [Mass/Vol]15.2 mg/dLMartins Ferry HospitalEosinophils/100 WBC Auto (Bld)on 13-50-7046Fzstzuddspf/100 WBC (Bld)5.6 %0.9-7.0[facility] HospitalErythrocyte distribution width Auto (RBC) [Ratio]on 12-01-2023 Erythrocyte distribution width (RBC) [Ratio]15.8 %11.0-15.0[facility] HospitalEstimated glomerular filtration rate (GFR) non- Americanon 92-47-0826TKT/1.73 sq M.predicted among non-blacks MDRD (S/P/Bld) [Vol rate/Area]mL/min/{1.73_m2}>=60[facility] HospitalGlobulin Calc (S) [Mass/Vol]on 57-86-8197Zmtjumyk (S) [Mass/Vol]3.5 g/dLMartins Ferry HospitalGlucose mean value [Mass/volume] in Blood Estimated from glycated hemoglobinon 70-65-1582Sqxtgbk glucose Estimated from glycated hemoglobin (Bld) [Mass/Vol]209 mg/dLMartins Ferry HospitalHematocrit Auto (Bld) [Volume fraction]on 92-62-1967Fzjhslmlcj (Bld) [Volume fraction]47.7 %42.0-54.0 [facility] HospitalHemoglobin [Mass/volume] in Bloodon 12-01-2023 Hemoglobin (Bld) [Mass/Vol]15.7 g/dL14.0-18.0[facility] - Chemistry and Chemistry - challengeon 11-88-8175Pjvycvl [Mass/Vol] 3.7 g/dL3.4-5.0[facility] HospitalALP [Catalytic activity/Vol]67 U/H59-474OwgjkiykuMartins Ferry HospitalALT [Catalytic activity/Vol]24 U/L 16-63[facility] HospitalAST [Catalytic activity/Vol]28 U/L15-37 [facility] HospitalBilirubin [Mass/Vol]0.9 mg/dL0.2-1.0[facility] HospitalCalcium [Mass/Vol]8.7 mg/dL8.5-10.1FTriHealth Bethesda North HospitalChloride [Moles/Vol]101 mmol/Y42-623WvaqrdzntMartins Ferry HospitalCholesterol [Mass/Vol]120 mg/dL<=200[facility] Cholesterol in HDL [Mass/Vol]36 mg/vU75-23QwmtplljdMartins Ferry Hospital Comment on above:> or =60 mg/dl - LOW CARDIOVASCULAR RISK<40 mg/dl - HIGH CARDIOVASCULAR RISKCO2 [Moles/Vol]28.9 mmol/L21.0-32.0[facility] HospitalCreatinine [Mass/Vol]1.19 mg/dL0.70-1.30[facility] GFR/1.73 sq M.predicted MDRD (S/P/Bld) [Vol rate/Area]mL/min/{1.73_m2}>=60 [facility] HospitalGlucose [Mass/Vol]152 mg/nN90-143ZisujkufkMartins Ferry HospitalPotassium [Moles/Vol]4.5 mmol/L3.5-5.1FTriHealth Bethesda North HospitalProtein [Mass/Vol]7.2 g/dL6.4-8.2FTriHealth [facility] Sodium [Moles/Vol]138 mmol/B914-527JmljbaefoMartins Ferry HospitalTriglyceride [Mass/Vol]76 mg/dL<=150[facility] HospitalUrea nitrogen [Mass/Vol]23.0 mg/dL7.0-18.0[facility] HospitalUrea nitrogen/Creatinine [Mass ratio]19.3 mg/mgMartins Ferry Hospital Laboratory - Hematology and Cell countson 53-52-5082SsF4g (Bld) [Mass fraction] 8.9 %4.5-6.2FTriHealth Bethesda North HospitalComment on above:ADA RECOMMENDED LIMIT 4.0 - 6.0ADA THERAPEUTIC TARGET < 7.0ACTION SUGGESTED> 7.0Immature granulocytes/100 WBC (Bld)0.2 %0.0-0.5FTriHealth Bethes[facility] North Hospital Leukocytes [#/volume] corrected for nucleated erythrocytes in Blood by Automated counon 41-82-2160IQA corrected for nucl RBC Auto (Bld) [#/Vol]8.5 10 3/uL 4.0-11.0[facility] HospitalLymphocytes Auto (Bld) [#/Vol]on 63-43-1947Nobbbjykhyj (Bld) [#/Vol]1.6 10 3/uL1.2-3.8[facility] HospitalLymphocytes/100 WBC Auto (Bld)on 18-63-5196Ircxgkvnwuj/100 WBC (Bld)19.2 % 20.5-60.0[facility] Auto (RBC) [Entitic mass]on 76-98-6836JHT (RBC) [Entitic mass]26.2 pg25.9-34.0[facility] HospitalMCHC Auto (RBC) [Mass/Vol]on 20-61-5536NRCT (RBC) [Mass/Vol]32.9 g/dL 29.9-35.2FTriHealth Bethesda North HospitalMCV Auto (RBC) [Entitic vol]on 00-78-8615GWP (RBC) [Entitic vol]79.6 fL80.0-94.0[facility] HospitalMonocytes Auto (Bld) [#/Vol]on 30-82-0618Alhtuwodf (Bld) [#/Vol]0.7 10 3/uL0.3-0.8[facility] HospitalMonocytes/100 WBC Auto (Bld)on 42-17-5654Ogdedflni/100 WBC (Bld)7.6 %1.7-12.0[facility] Neutrophils Auto (Bld) [#/Vol]on 34-85-8036Wtzwmkdvlbu (Bld) [#/Vol]5.7 10 3/uL 1.4-6.5FTriHealth Bethesda North HospitalNeutrophils/100 WBC Auto (Bld)on 54-16-4972Tutjjmdaiit/100 WBC (Bld)66.6 %43.0-75.0[facility] HospitalNo Panel Informationon 35-62-2023Whekqgdwbls # (Auto)0.5 10 3/uL0.0-0.7 [facility] HospitalImmature Granulocyte # (Auto)0.02 10 3/uL 0.00-0.03[facility] HospitalProstate Specific Antigen Screen1.21 ng/mL<=4.00[facility] HospitalPlatelet mean volume Auto (Bld) [Entitic vol]on 57-52-3241Vaazndlw mean volume (Bld) [Entitic vol]11.1 fL 9.5-13.5FTriHealth Bethesda North HospitalPlatelets Auto (Bld) [#/Vol]on 56-69-8765Vzvbaabfx (Bld) [#/Vol]216 10 3/hO706-068XdefmqdxhMartins Ferry HospitalRBC Auto (Bld) [#/Vol]on 11-38-3024EWJ (Bld) [#/Vol]5.99 10 6/uL4.70-6.10 [facility] Andersonerum or plasma albumin/globulin mass ratioon 44-03-1279Skreqxy/Globulin [Mass ratio]1.1 {ratio}[facility] Andersonerum or plasma anion gap determinationon 45-51-9931Ekhfy gap [Moles/Vol] 12.6 mmol/LFUC West Chester Hospitalerum or plasma total cholesterol/high density lipoprotein (HDL) cholesterol mass aydin 12-01-2023 Cholesterol.total/Cholesterol in HDL [Mass ratio]3.3 {ratio}[facility] HospitalComment on above:3.3 - 4.4 LOW RISK4.4 - 7.1 AVERAGE RISK7.1 - 11.0 MODERATE RISK>11.0 HIGH RISKAmbulatory Visit Summaryon 03-04-5940Ynxffbgyen Visit Summary JOHNATHAN CORREA :1960 Visit Date:11/30/2023 [...] AM EDT With: Where: [facility] [place] [id number] \.br\ Medications\.br\ What How Much When Why [...] you for choosing us for your care.\.br\ \.br\[facility] HospitalAmbulatory Visit Summaryon 22-45-9300Renjvmlfgm Visit Summary JOHNATHAN CORREA :1960 Visit Date:11/16/2023 [...] EDT With: Where: [facility] [address] [place] [id number]- \.br\ Medications\.br\ What How Much When Why [...] you for choosing us for your care.\.br\ \.br\[facility] HospitalAmbulatory Visit Summaryon 74-34-9648Qmciyyxmyk Visit Summary SUNNYJOHNATHAN :1960 Visit Date:10/20/2023 Ambulatory Visit Instructions Your [...] AM EST With: Where: [facility] [address] [place] [address]- \.br\ Medications\.br\ What How Much When Why [...] you for choosing us for your care.\.br\ \.br\[facility] HospitalAmbulatory Visit Summaryon 89-58-2859Nazdzkeesa Visit Summary SUNNY JOHNATHAN Valentino :1960 Visit Date:09/29/2023 Ambulatory Visit [...] Lety Gonzalez MD [facility] Summaryon 12-66-1191Baawdgeenk Visit Summary JOHNATHAN CORREA :1960 Visit Date:09/15/2023 Ambulatory Visit Instructions Your Diagnosis Hypogonadism male ED (erectile dysfunction) BPH without urinary obstruction Tests Performed Urnls Dip Stick Auto w/o Microscopy POC 65563 Your Care Team Attending Physician - Lety [...] EST With: Where: [facility] [address] [place] [address] [place] [address]- \.br\ You Need to Schedule the Following Appointments\.br\ Follow Up with Carlos LIZAMA, Lety Scott, URL, URO When: \.br\ Comments:\.br\ 3 mos w/ PSA, T level, and HCT\.br\ Where:\.br\ [address]br\ [place] [address].br\ [phone]\.br\ You Need to Complete the Following\.br\ Hematocrit, [...] exceed 20mg within 24 hours. Pickup at [facility]\.br\ Unchanged amlodipine (amLODIPine 5 mg Tab) [...] if questions or concerns \.br\ Pharmacy Information\.br\ [facility]: [address] [place], [place] [id number] [phone]\.br\ Test Results\.br\ Urnls Dip Stick Auto w/o Microscopy POC 61668 (09/15/2023)\.br\ Bilirubin Urine Dipstick - Negative\.br\ Blood Urine Dipstick - Trace-intact\.br\ Glucose Urine Dipstick - 3+ 1000 mg/dl\.br\ Ketones Urine Dipstick - Negative\.br\ Leukocytes Urine Dipstick - Negative\.br\ Nitrite Urine Dipstick - Negative\.br\ Protein Urine Dipstick - Negative\.br\ Specific [place] Urine Dipstick - 1.015\.br\ Urine Pino earance [...] \.br\ Doing a sleep study at home [facility] Educationon 90-95-9788Izsbuup EducationUrology Erectile Dysfunction Erectile dysfunction (ED) is [...] these instructions at home: Medicines ? Take yemy-avu-tdihkgc and prescription medicines only as told by [...] These products include cig (more content not included)...[facility] Urology Office/Clinic Noteon 63-48-4475Zeltbzq Office/Clinic NoteChief Complaint 3 month follow up [...] Cialis. Rx sent again to [facility] in [place]. Risks/benefits discussed. -Diet and exercise 3. BPH [...] Information Carlos LIZAMA, Lety Scott, URL, URO [address] [place] [phone] Additional Instructions: 3 mos w/ PSA, T [...] 15 mg oral ta (more content not included)...NormalFishAdventist HealthCare White Oak Medical CenterComment on above:Result Comment: Electronically Signed By: Carlos LIZAMA, Lety Scott\.br\Date and Time Signed: 09/15/23 08:41EST\.br\Electronically Co-Signed By: Amelia Winslow\.br\Date and Time Co-Signed: 09/15/23 08:37 ESTTestost Totalon 89-18-4505Rxappbzvnsvy [Mass/Vol]478 ng/dLInvalid Interpretation Ahyo053-300 [facility] HospitalComment on above:Result Comment: Adult male reference interval is based on a population of healthy nonobese males (BMI <30) between 19 and 39 years old. Tayler et.al. JCEM 2017,102;9995-4328. PMID: 23650383. Performed at: [facility] [address] [id number] PhD Arianne FonsecaPerformed By: #### [id number] ####[facility] [address] [place], [place] [address]Bnmuvacdij Visit Summaryon 75-81-5908Tltvcikgit Visit Summary JOHNATHAN CORREA :1960 Visit Date:09/08/2023 [...] Lety Gonzalez MD [facility]Amb[facility] Visit Summaryon 20-16-0611Dlzawxtslx Visit Summary JOHNATHAN CORREA :1960 Visit Date:09/01/2023 [...] With: Lety Gonzalez MD [facility] Summaryon 09-07-9917Gkbkdwnojj Visit Summary JOHNATHAN CORREA :1960 Visit Date:08/04/2023 [...] EST With: Where: [facility] [address] [place] [id number]- \.br\ Medications\.br\ What How Much When Why [...] needed for for erectile dysfunction Do not jiogsz03pf within 24 hours. \.br\ Unchanged testosterone (Depo-Testosterone [...] you for choosing us for your care.\.br\ \.br\[facility] HospitalAmbulatory Visit Summaryon 19-68-5343Tycapzlavd Visit Summary JOHNATHAN CORREA :1960 Visit Date:07/21/2023 [...] AM EST With: [facility] [address] [place] [address] [place] [address]- [phone]\.br\ Wednesday 8:00 AM EST \.br\ With: Carlos LIZAMA, Lety Scott\.br\ [facility]Amb[facility] Summaryon 16-69-9647Zyjeotlzav Visit Summary JOHNATHAN CORREA :1960 Visit Date:07/07/2023 [...] AM EST With: Where: [facility] Interpretation [address] [place] [address] [place] [address] \.br\ Wednesday 8:00 AM EST \.br\ With:\.br\ Where: [facility] Ambulatory Visit Summaryon [id number] Visit Summary JOHNATHAN CORREA :1960 Visit Date:06/23/2023 [...] AM EDT With: [facility] [address] [place] [address]- \.br\ Wednesday 8:00 AM EST \.br\ With:\.br\ Where: [facility] Ambulatory Visit Summaryon 83-59-3574Gpzqwdndxe Visit Summary JOHNATHAN CORREA :1960 Visit Date:06/09/2023 Ambulatory Visit Instructions Your Diagnosis Hypogonadism male BPH without urinary obstruction ED (erectile dysfunction) Tests Performed Urnls Dip Stick Auto w/o Microscopy POC 83377 Your Care Team Attending Physician - Lety [...] AM EDT With: Where: [facility] [address] \.br\ You Need to Schedule the Following Appointments\.br\ Follow Up with Carlos LIZAMA, Lety Scott, SHAYY, URO When: In 3 months\.br\ Comments:\.br\w/ T Level, HCT, and PSA\.br\ Where:\.br\ Medications\.br\ What How Much When Why Instructions\.br\New tadalafil (Cialis 20 mg Tab) 1 Tablets By Mouth As Directed as needed for for erectile dysfunction Refills: 3 Do not exceed 20mg within 24 hours. Pickup at [facility]/pharmacy #[id number]\.br\ Changed testosterone (Depo-Testosterone 200 mg/ mL intramuscular solution) 200 Milligram Intramuscular Every other week Hypogonadism male ED (erectile dysfunction) Pickup at [facility]/pharmacy #[id number]\.br\ Unchanged amlodipine (amLODIPine 5 mg Tab) By [...] physician if questions or concerns\.br\ Pharmacy Information\.br\ [facility]/pharmacy #[id number]: [address], [place] [phone]\.br\ \.br\ What How Much When Comments\.br\ Stop Taking sildenafil (Viagra 100 mg Tab) 1 Tablets By Mouth As Directed as needed for for erectile dysfunction 1 hour before sexual activity. Startwith 1/ 2 tablet. Not to exceed 1 tab (100 mg) in 24 hours \.br\ Test Results\.br\ Urnls Dip Stick Auto w/o Microscopy POC 54613 (06/09/2023)\.br\ Bilirubin Urine Dipstick - Negative\.br\ Blood Urine Dipstick - Negative\.br\ Glucose Urine Dipstick - 3+ 1000 mg/dl\.br\ Ketones Urine Dipstick - Negative\.br\ Leukocytes Urine Dipstick - Negative\.br\ Nitrite Urine Dipstick - Negative\.br\ Protein Urine Dipstick - Negative\.br\ Specific [place] Urine Dipstick - 1.010\.br\ Urine Appearance Urine [...] and your symptoms before putting youon testosterone replaFishAdventist HealthCare White Oak Medical CenterPatient Educationon 43-83-4431Rqakjqj EducationUrology Hypogonadism, Male Male hypogonadism is a [...] Follow these instructions at home: ? Take glsx-che-vnwmjcy and prescription medicines only as told by [...] Document Revised: 04/24/2021 Document (more content not included)...[facility] Hospitalcreenson 95-27-4277Runefpi [id number]#1.00CD:127rmProMedica Fostoria Community [id number]#1.00CD:127[facility] HospitalUrology Office/Clinic Noteon 46-07-1621Kwewhhp Office/Clinic NoteChief Complaint 4m w/labs HPI Staff [...] the patient. Follow-up With When Contact Information Lety Gonzalez MD, URL, URO In 3 months Additional Instructions: [...] 5 mg Tab, O (more content not included)...[facility] HospitalComment on above:Result Comment: Electronically Signed By: Lue MD, Lety M.\.br\Date and Time Signed: 06/09/23 14:47EDT\.br\Electronically Co-Signed By: Judith Bell\.br\Date and Time Co-Signed: 06/09/23 08:22 EDTLab Reportson 20-98-3374Xgq [id number]#1.00CD:127[facility] SystemLab Reports [id number]#1.00CD:127[facility] HospitalAmbulatory Visit Summaryon 09-48-7034Wwcqanvubg Visit Summary JOHNATHAN CORREA :1960 Visit Date:06/02/2023 [...] LIZAMA, Lety Scott [facility] Reportson 09-77-8983Kpj Reports [id number]#1.00CD:127[facility] HospitalAmbulatory Visit Summaryon 40-07-3139Tbprtxfqnn Visit Summary JOHNATHAN CORREA :1960 Visit Date:05/12/2023 [...] AM EDT With: Where: [facility] Interpretation [address] [place] [address]- \.br\ Wednesday 8:45 AM EDT \.br\ With: Carlos LIZAMA, Lety Scott\.br\ [facility] Summaryon 97-73-8201Zkfqhwnysp Visit Summary JOHNATHAN CORREA :1960 Visit Date:04/28/2023 [...] AM EDT With: Where: [facility] Interpretation [address] [facility] [place] [address]- \.br\ Wednesday 8:45 AM EDT \.br\ With: Carlos LIZAMA, Lety Scott\.br\ [facility] Summaryon 40-21-7180Skvpiblgco Visit Summary JOHNATHAN CORREA :1960 Visit Date:04/14/2023 Ambulatory Visit Instructions Your Diagnosis Hypogonadism male Your Care Team Attending Physician - Carlos LIZAMA, Lety Scott Primary Care Physician - LUIS JEFFRYE MD This Is Your Medications List amlodipine [...] 8:30 AM EDT With: Where: [facility] Interpretation [address] [place] [address]- \.br\ Wednesday 8:00 AM EDT \.br\ With:\.br\ Where: [facility] Ambulatory Visit Summaryon 14-74-2211Wiqastbtdj Visit Summary JOHNATHAN CORREA :1960 Visit Date:03/17/2023 [...] [facility] OhioNormal[address] [employer] [facility] [place] [address]- \.br\ You Need to Schedule the Following Appointments\.br\ Follow Up with Carlos LIZAMA, Lety Scott, URL, URO When: In 2 weeks\.br\ Comments:\.br\ Will return in 2wks for next injection.\.br\ Will see Dr Gonzalez end may with PSA T & HCT & HGB.\.br\ Where:\.br\ [address] [facility] [address]\.br\ [place] [address]\.br\ Medications\.br\ What How Much When Instructions\.br\ Unchanged [...] Groin pain\.br\ Hypogonadism male\.br\ Low testosterone\.br\ Nocturia\.br\ \.br\[facility] CenterNurse Consultation Noteon 19-53-1483Qbxdt Consultation NoteReason for Visit Testosterone Injection Assessment/Plan [...] tablet, Oral, Daily Allergies metFORMIN (Stomach cramps, Diarrhea)[facility] HospitalCHEMISTRY Ordered By: SYSTEM SYSTEM on 31-34-8408Ioxgqjog specific Ag [Mass/Vol]3.6 ng/mL High0.1 - 3.5 ng/mLCURAHE[facility] [place] [facility] [place] RemisolHEMATOLOGYOrdered By: Emily Churchill on 02-24-2023 Hematocrit (Bld) [Volume fraction]46.7 %Ffvpff22.7 - 49.0 %[facility] [place] [place] HemeAutoSS Hemoglobin (Bld) [Mass/Vol]15.6 g/mIAigpcd76.5 - 17.5 gm/dLCURAHEALTH [facility] [place] [facility] [place] HemeAutoSSFalls Screening (Age 18+)on 83-98-5996Pvyu risk assessmentc) Not medically indicated -[facility] [address] DO Work Phone: Tobacco use status CPHSb) NoMP-[facility] [address] DO Work Phone: Falls Screening (Age 18+)YesMP-[facility] [address] DO Work Phone: CBC AUTO DIFFon 12-48-1085ILBV #0.1 103/ulNormal 0.0-0.1The [facility] CenterComment on above:Performed By: #### CVDTBH #### [facility] [address] [place] [address] Dr. Talia Ugaldephils/100 WBC (Bld)0.6 %Normal0.2-2.0The [facility] Comment on above:Performed By: #### CVDTBH #### [facility] [address] [place] [address] Dr. Talia Oliver #0.5 103/ulNormal0.0-0.7The [facility] CenterComment on above: Performed By: #### CVDTBH #### [facility] [address] [place] [address] Dr. Talia Schwabosinophils/100 WBC (Bld)5.4 %Normal0.9-7.0The [facility] Comment on above:Performed By: #### CVDTBH #### [facility] [address] [place] [address] Dr. Talia Schwabrythrocyte distribution width (RBC) [Ratio]15.6 %Critically high 11.0-15.0The [facility] CenterComment on above:Performed By: #### CVDTBH #### [facility] [address] [place] [address] Dr. Talia PlascenciaHematocrit (Bld) [Volume fraction]45.6 %Rhdsva25.0-54.0The [facility] CenterComment on above:Performed By: #### AXELTBH #### [facility] [address] [place] [address] Dr. Talia PlascenciaHemoglobin (Bld) [Mass/Vol]15.8 g/wHEwgmty90.0-18.0The [facility] CenterComment on above:Performed By: #### CVDTBH #### [facility] [address] [place] [address] Dr. Talia Capone #0.02 10e3/ulNormal0.00-0.03The [facility] Health CenterComment on above:Performed By: #### CVDTBH #### [facility] [address] [place] [address] Dr. Talia Capone %0.2 %Normal0.0-0.5The [facility] Health CenterComment on above: Performed By: #### CVDTB #### [facility] [address] [place] [address] Dr. Talia Carbajal #1.8 103/ulNormal1.2-3.8The [facility] CenterComment on above:Performed By: #### CVDTBH #### [facility] [address] [place] [address] Dr. Talia Manleymphocytes/100 WBC (Bld)22.0 %Suopni08.5-60.0The [facility] CenterComment on above:Performed By: #### CVDTBH #### [facility] [address] [place] [address] Dr. Talia Pascal DIFF REQNONormalThe [facility] Health CenterComment on above: Performed By: #### CVDTBH #### [facility] [address] [place] [address] Dr. Talia Sanders (RBC) [Entitic mass]27.4 okYiqtjb80.9-34.0The [facility] CenterComment on above:Performed By: #### CVDTBH #### [facility] [address] [place] [address] Dr. Talia German (RBC) [Mass/Vol]34.6 g/lVXoflxh81.9-35.2The [facility] CenterComascension [facility] on above:Performed By: #### CVDTBH #### [facility] [address] [place] [address] Dr. Talia German (RBC) [Entitic vol]79.2 fLCritically low80.0-94.0The [facility] CenterComment on above:Performed By: #### CVDTBH #### [facility] [address] [place] [address] Dr. Talia Echols #0.7 103/ulNormal0.3-0.8The [facility] CenterComascension macomb-[facility] hospital on above:Performed By: #### CVDTBH #### [facility] [address] [place] [address] Dr. Talia Moranocytes/100 WBC (Bld)7.9 %Normal1.7-12.0The [facility] Comment on above:Performed By: #### CVDTBH #### [facility] [address] [place] [address] Dr. Talia Malagon #5.3 103/ulNormal1.4-6.5The [facility] CenterComment on above:Performed By: #### CVDTBH #### [facility] [address] [place] [address] Dr. Talia Maddenutrophils/100 WBC (Bld)63.9 %Lozgdn90.0-75.0The [facility] CenterComment on above:Performed By: #### CVDTBH #### [facility] [address] [place] [address] Dr. Talia Nobles mean volume (Bld) [Entitic vol]10.8 fLNormal9.5-13.5The [facility] CenterComment on above:Performed By: #### CVDTBH #### [facility] [address] [place] [address] Dr. Talia PlascenciaPLT218 103/paVudygv622-050Gvt [facility] CenterComment on above: Performed By: #### CVDTBH #### [facility] [address] [place] [address] Dr. Talia PlascenciaRBC5.76 106/ulNormal4.70-6.10The [facility] CenterComment on above:Performed By: #### CVDTBH #### [facility] [address] [place] [address] Dr. Talia PlascenciaWBC8.3 103/ulNormal4.0-11.0The [facility] CenterComment on above: Performed By: #### CVDTBH #### [facility] [address] [place] [address] Dr. Talia PlascenciaGLYCOHEMOGLOBIN A1Con 71-57-3953JMW RECOMMENDATIONSEE BELOWNormal [facility] SouthComment on above:Result Comment: ADA RECOMMENDED LIMIT 4.0 - 6.0 ADA THERAPEUTIC TARGET < 7.0 ACTION SUGGESTED > 7.0Performed By: #### INFLUAB #### [facility] [address] [address] [address] Talia PlascenciaGlucose [Mass/Vol]203 mg/dLNoMercer County Community HospitalComment on above:Performed By: #### INFLUAB #### [facility] [address] [place] [address] Dr. Talia PlascenciaHbA1c (Bld) [Mass fraction]8.7 %Critically high4.5-6.2The [facility] CenterComment on above:Performed By: #### INFLUAB #### [facility] [address] [place] [address] Dr. Talia PlascenciaLIPID PROFILEon 17-91-0951WUQG-HDL RATIO NORMSEE [facility] Medical CenterComment on above:Result Comment: 3.3 - 4.4 LOW RISK 4.4 - 7.1 AVERAGE RISK 7.1 - 11.0 MODERATE RISK >11.0 HIGH RISKPerformed By: #### POCGLUC #### [facility] [address] [place] [address] Dr. Talia Juarezesterol [Mass/Vol]120 mg/dLNormal<=200The [facility] Comment on above:Performed By: #### POCGLUC #### [facility] [address] [place] [address] Dr. Talia Juarezesterol in HDL [Mass/Vol]28 mg/dLCritically oim31-58Ydn [facility] CenterComment on above:Performed By: #### POCGLUC #### [facility] [address] [place] [address] Dr. Talia Juarezesterol in LDL [Mass/Vol]67.6 mg/dLMemorial Health System Marietta Memorial HospitalComment on above:Performed By: #### POCGLUC #### [facility] [address] [place] [address] Dr. Talia Juarezesterej.total/Cholesterol in HDL [Mass ratio]4.3 {ratio} NormalThe [facility] Health CenterComment on above:Performed By: #### POCGLUC #### [facility] [address] [place] [address] Dr. Talia GarciaL NORMAL> or = 60 mg/dl - LOW CARDIOVASCULAR RISK <40 mg/dl - HIGH CARDIOVASCULAR RISKMemorial Health System Marietta Memorial HospitalComment on above:Performed By: #### POCGLUC #### [facility] [address] [place] [address] Dr. Talia PlascenciaLDL CALC NORMALSEE BELOWNoMercer County Community HospitalComment on above:Result Comment: <100 mg/dl OPTIMAL 100 - 129 mg/dl NEAR OR ABOVE OPTIMAL 130 - 159 mg/dl BORDERLINE HIGH 160 - 189 mg/dl HIGH >190 mg/dl VERY HIGH Performed By: #### POCGLUC #### [facility] [address] [place] [address] Dr. Talia PlascenciaTriglyceride [Mass/Vol]122 mg/dLNormal<=150The [facility] Comment on above:Performed By: #### POCGLUC #### [facility] [address] [place] [address] Dr. Talia BhatiaLDL CALC24.4 mg/dLNoMercer County Community HospitalComment on above: Performed By: #### POCGLUC #### [facility] [address] [place] [address] Dr. Talia PlascenciaPROF 14(COMP METB)on 35-05-5312Lcnnylj [Mass/Vol]3.8 g/dLNormal 3.4-5.0[facility] SouthComment on above:Performed By: #### POCGLUC #### [facility] [address] [place] [address] Dr. Talia PlascenciaAlbumin/Globulin [Mass ratio]1.0 {ratio}NormalThe [facility] Health CenterComment on above:Performed By: #### POCGLUC #### [facility] [address] [place] [address] Dr. Talia Myers [Catalytic activity/Vol]73 U/DZdxgpz71-412Vae [facility] CenterComascension [facility]omb[facility] hospital on above:Performed By: #### POCGLUC #### [facility] [address] [place] [address] Dr. Talia Cody [Catalytic activity/Vol]22 U/UEobjbt81-17Vfw [place] HospitalComment on above:Performed By: #### POCGLUC #### [facility] [address] [address] [address] Talia Pérez gap [Moles/Vol]10.7 mmol/LNormalThe [facility] Comment on above:Performed By: #### POCGLUC #### [facility] [address] [address] [address] Talia PlascenciaAST [Catalytic activity/Vol]31 U/AFjupdk34-63Dmu [facility] CenterComment on above:Performed By: #### POCGLUC #### [facility] [address] [address] [address] Talia PlascenciaBilirubin [Mass/Vol]0.6 mg/dLNormal0.2-1.0The [facility] Comment on above:Performed By: #### POCGLUC #### [facility] [address] [address] [address] Talia PlascenciaCalcium [Mass/Vol]9.5 mg/dLNormal8.5-10.1[facility] Comment on above:Performed By: #### POCGLUC #### [facility] [address] [address] [address] Talia PlascenciaChloride [Moles/Vol]102 mmol/BDwvozd10-048Uco [facility] Comment on above:Performed By: #### POCGLUC #### [facility] [address] [address] [address] Talia PlascenciaCO2 [Moles/Vol]28.9 mmol/URuivvf09.0-32.0The [facility] Comment on above:Performed By: #### POCGLUC #### [facility] [address] [address] [address] Talia PlascenciaCreatinine [Mass/Vol]1.27 mg/dLNormal0.70-1.30The [facility] CenterComment on above:Performed By: #### POCGLUC #### [facility] [address] [address] [address] Melgar ChangEGFR-AF BOTSWANAN>60Normal>=60The [facility] CenterComment on above:Performed By: #### POCGLUC #### [facility] [address] [address] [address] Talia SchwabGFR-NON AF ECCKWQCU95 mL/min/1.19t8Gfqudpecwd low>=60The [facility] CenterComment on above:Performed By: #### POCGLUC #### [facility] [address] [address] [address] Talia PlascencaiGlobulin (S) [Mass/Vol]3.9 g/dLNormUniversity Hospitals Geneva Medical CenterComment on above:Performed By: #### POCGLUC #### [facility] [address] [address] [address] Talia PlascenciaGlucose [Mass/Vol]209 mg/dLCritically skiq98-016Aqq [facility] CenterComment on above:Performed By: #### POCGLUC #### [facility] [address] [address] [address] Talia PlascenciaPotassium [Moles/Vol]4.6 mmol/LNormal3.5-5.1The [facility] Comment on above:Performed By: #### POCGLUC #### [facility] [address] [address] [address] Talia PlascenciaProtein [Mass/Vol]7.7 g/dLNormal6.4-8.2[facility] Comment on above:Performed By: #### POCGLUC #### [facility] [address] [address] [address] Talia PlascenciaSodium [Moles/Vol]137 mmol/QShipfw788-825Hyw [facility] Comment on above:Performed By: #### POCGLUC #### [facility] [address] [address] [address] Talia PlascenciaUrea nitrogen [Mass/Vol]22.0 mg/dLCritically high7.0-18.0The [facility] CenterComment on above:Performed By: #### POCGLUC #### [facility] [address] [address] [address] Talia PlascenciaUrea nitrogen/Creatinine [Mass ratio]17.3 mg/mgNormalThe [place] HospitalComment on above:Performed By: #### POCGLUC #### [facility] [address] [place] [address] Dr. Talia PlascenciaHEMATOLOGYOrdered By: SYSTEM SYSTEM on 36-44-0258Nftwpgadi/100 WBC (Bld)0.8 %Normal0.0 - 2.0 %[facility] HemeAutoSSBasophils/Leukocytes Auto (Bld) [Pure # fraction]0.1 E9/LNormal0.0 - 0.2 E9/LFTMC HemeAutoSSEosinophils/100 WBC (Bld)4.9 %Normal0.0 - 8.0 %[facility] HemeAutoSSEosinophils/Leukocytes Auto (Bld) [Pure # fraction]0.4 E9/LNormal0.0 - 0.5 E9/LFTMC HemeAutoSSLymphocytes/100 WBC (Bld)15.6 %Wcqxri44.0 - 50.0 %[facility] HemeAutoSSLymphocytes/Leukocytes Auto (Bld) [Pure # fraction]1.4 E9/LNormal1.0 - 4.0 E9/LFTMC HemeAutoSSMonocytes/100 WBC (Bld)7.1 %Normal4.0 - 14.0 %[facility] HemeAutoSSMonocytes/Leukocytes Auto (Bld) [Pure # fraction]0.6 E9/LNormal0.2 - 1.0 E9/LFTMC HemeAutoSSNeutrophils/100 WBC (Bld) 71.6 %Tgijvj07.0 - 75.0 %[facility] HemeAutoSSNeutrophils/Leukocytes Auto (Bld) [Pure # fraction]6.4 E9/LNormal2.0 - 7.5 E9/LFTMC HemeAutoSSHEMATOLOGYOrdered By: Lexii Kelly on 03-42-3091Sqfdoggzrry distribution width (RBC) [Ratio]16.1 % High10.9 - 14.2 %[facility] HemeAutoSSHematocrit (Bld) [Volume fraction]48.8 %Normal 37.7 - 49.0 %[facility] HemeAutoSSHemoglobin (Bld) [Mass/Vol]15.9 g/kKIoisuk62.5 - 17.5 gm/dLFTMC HemeAutoSSMCH (RBC) [Entitic mass]26.6 pgLow27.0 - 34.0 pgFALLIANCEHE[facility] HemeAutoSSMCHC (RBC) [Mass/Vol]32.5 g/qTOvfqan26.4 - 36.0 gm/dLFT HemeAutoSS MCV (RBC) [Entitic vol]81.9 hAXmlggf42.0 - 100.0 fLCURAHEALTH [facility] [place] [facility] [place] HemeAutoSSPlatelet mean volume (Bld) [Entitic vol]9.5 fLNormal6.4 - 10.8 fLFT HemeAutoSSPlatelets (Bld) [#/Vol]205.0 E9/XLtokvr979.0 - 500.0 E9/LFTMC HemeAutoSSRBC (Bld) [#/Vol] 6.0 E12/LHigh4.3 - 5.9 E12/LFC HemeAutoSSWBC corrected for nucl RBC Auto (Bld) [#/Vol]8.9 E9/LNormal4.0 - 11.0 E9/LFTMC HemeAutoSSXR ABD FLAT UP_PA Rahat 48-41-9460OL ABD FLAT UP_PA CHACUTE ABDOMINAL SERIES HISTORY: [...] Electronically authenticated by: CARLY PRESCOTT Date: 2022-08-04 23:39NormUniversity Hospitals Geneva Medical CenterACETONE SERUMon 76-65-5927NBDBVQSAUOYUEtojfpjlBHCCEQZPKio [facility] CenterComment on above:Performed By: #### CBCMAN #### [facility] [address] [place] [address] Dr. Talia Cedillo AUTO DIFFon 01-28-5336CGVB #0.1 103/ulNormal0.0-0.1The [facility] CenterComment on above:Performed By: #### CVDTBH #### [facility] [address] [place] [address] Dr. Talia PlascencaiBasophils/100 WBC (Bld)0.5 %Normal0.2-2.0The [facility] Comment on above:Performed By: #### CVDTBH #### [facility] [address] [place] [address] Dr. Talia Oliver #0.1 103/ulNormal0.0-0.7The [facility] CenterComment on above: Performed By: #### CVDTBH #### [facility] [address] [place] [address] Dr. Talia Schwabosinophils/100 WBC (Bld)1.1 %Normal0.9-7.0The [facility] Comment on above:Performed By: #### CVDTBH #### [facility] [address] [place] [address] Dr. Talia Schwabrythrocyte distribution width (RBC) [Ratio]15.7 %Critically high 11.0-15.0The [facility] CenterComment on above:Performed By: #### CVDTBH #### [facility] [address] [place] [address] Dr. Talia PlascenciaHematocrit (Bld) [Volume fraction]50.2 %Gurosk04.0-54.0The [facility] CenterComment on above:Performed By: #### CVDTBH #### [facility] [address] [place] [address] Dr. Talia PlascenciaHemoglobin (Bld) [Mass/Vol]17.3 g/cVEeyxmk82.0-18.0The [facility] CenterComment on above:Performed By: #### CVDTBH #### [facility] [address] [place] [address] Dr. Talia Capone #0.03 10e3/ulNormal0.00-0.03The [facility] CenterComment on above:Performed By: #### CVDTBH #### [facility] [address] [place] [address] Dr. Talia Capone %0.3 %Normal0.0-0.5The [facility] CenterComment on above: Performed By: #### CVDTBH #### [facility] [address] [place] [address] Dr. Talia Carbajal #0.7 103/ulCritically low1.2-3.8The [facility] Comment on above:Performed By: #### CVDTBH #### [facility] [address] [place] [address] Dr. Talia Bartonhocytes/100 WBC (Bld)7.0 %Critically low20.5-60.0The [facility] CenterComment on above:Performed By: #### CVDTBH #### [facility] [address] [place] [address] Dr. Talia Pascal DIFF REQNONormalThe [facility] CenterComment on above: Performed By: #### CVDTBH #### [facility] [address] [place] [address] Dr. Talia Sanders (RBC) [Entitic mass]26.3 gaNuijoa35.9-34.0The [facility] CenterComment on above:Performed By: #### CVDTBH #### [facility] [address] [place] [address] Dr. Talia Carr (RBC) [Mass/Vol]34.5 g/mBCdanpw29.9-35.2The [facility] CenterComment on above:Performed By: #### CVDTBH #### [facility] [address] [place] [address] Dr. Talia Raymond (RBC) [Entitic vol]76.2 fLCritically low80.0-94.0The [facility] CenterComment on above:Performed By: #### CVDTBH #### [facility] [address] [address] [address] Talia Echols #1.0 103/ulCritically high0.3-0.8The [facility] Comment on above:Performed By: #### CVDTBH #### [facility] [address] [place] [address] Dr. Talia Moranocytes/100 WBC (Bld)9.9 %Normal1.7-12.0[facility] Comment on above:Performed By: #### CVDTBH #### [facility] [address] [place] [address] Dr. Talia Malagon #8.5 103/ulCritically high1.4-6.5The [facility] Comment on above:Performed By: #### CVDTBH #### [facility] [address] [place] [address] Dr. Talia Maddenutrophils/100 WBC (Bld)81.2 %Critically high43.0-75.0The [facility] CenterComment on above:Performed By: #### CVDTBH #### [facility] [address] [place] [address] Dr. Talia Swartzlet mean volume (Bld) [Entitic vol]10.5 fLNormal9.5-13.5The [facility] CenterComment on above:Performed By: #### CVDTBH #### [facility] [address] [place] [address] Dr. Talia PlascenciaPLT212 103/uhWfosem477-876Xdk [facility] CenterComment on above: Performed By: #### CVDTBH #### [facility] [address] [place] [address] Dr. Talia PlascenciaRBC6.59 106/ulCritically high4.70-6.10ThMer[facility] Comment on above:Performed By: #### CVDTB #### [facility] [address] [address] [address] Talia PlascenciaWBC10.4 103/ulNormal4.0-11.0The [facility] CenterComment on above:Performed By: #### CVDTBH #### [facility] [address] [place] [address] Dr. Talia PlascenciaCovid-19 PCR ([facility])on 21-92-7065RPEW-CoV-2 (COVID-19) RNA REKHA+probe Ql (Unsp spec)DetectedCritically abnormalNOT DETECTEDThe [facility] Daytonment on above:Result Comment: This test is not yet approved or cleared by the [place] FDA. When there are no FDA-approved or cleared tests available, and other criteria are met, FDA can make tests available under an emergency access mechanism called an Emergency Use Authorization (EUA). The EUA for this test is supported by the Land Conservation Specialist of Health and Human Service's declaration [...] test mayno longer be used).Performed By: #### CVDTB #### [facility] [address] [place] [address] Dr. Talia PlascenciaINFLBENTLEY A AND B AGon 90-46-5303SSYRQVKLX A AGNegativeNormal NEGATIVE SEE COMMENTThe [facility] CenterComment on above:Performed By: #### INFLUAB #### [facility] [address] [place] [address] Dr. Talia PlascenciaINFLBENTLEY B AGNegativeNormalNEGATIVE SEE COMMENTThe [facility] CenterComment on above:Performed By: #### INFLUAB #### [facility] [address] [place] [address] Dr. Talia PlascenciaINTERNAL CONTROLSWithin Normal LimitsNormalWithin Normal Limits The [facility] CenterComment on above:Performed By: #### INFLUAB #### [facility] [address] [place] [address] Dr. Talia PlascenciaLACTATE/LACTIC ACIDon 73-06-3979Ogngcxs [Moles/Vol]2.1 mmol/L Critically high0.4-1.9The [facility] CenterComment on above:Performed By: #### CBCMAN #### [facility] [address] [place] [address] Dr. Talia PlascenciaLIPASEon 78-74-5464Bjdhxg [Catalytic activity/Vol]135.0 U/LNormal 73.0-393.0The [facility] CenterComment on above:Performed By: #### INFLUAB #### [facility] [address] [place] [address] Dr. Talia PlascenciaPROF 14(COMP METB)on 03-34-3574Xtyhwuj [Mass/Vol]4.3 g/dLNormal 3.4-5.0The [facility] CenterComment on above:Performed By: #### INFLUAB #### [facility] [address] [place] [address] Dr. Talia PlascenciaAlbumin/Globulin [Mass ratio]1.0 {ratio}NormalThe [facility] CenterComment on above:Performed By: #### INFLUAB #### [facility] [address] [place] [address] Dr. Talia Myers [Catalytic activity/Vol]77 U/HXikxmz81-036Ehm [facility] CenterComment on above:Performed By: #### INFLUAB #### [facility] [address] [place] [address] Dr. Talia Cody [Catalytic activity/Vol]28 U/JWydfyt90-78Jiq [facility] CenterComment on above:Performed By: #### INFLUAB #### [facility] [address] [place] [address] Dr. Talia Pérez gap [Moles/Vol]20.3 mmol/LNormalThe [facility] on above:Performed By: #### INFLUAB #### [facility] [address] [place] [address] Dr. Talia Mireles [Catalytic activity/Vol]35 U/PPigxoe73-97Ini [facility] CenterComment on above:Performed By: #### INFLUAB #### [facility] [address] [place] [address] Dr. Talia PlascenciaBilirubin [Mass/Vol]1.1 mg/dLCritically high0.2-1.0The [facility] CenterComment on above:Performed By: #### INFLUAB #### [facility] [address] [place] [address] Dr. Talia PlascenciaCalcium [Mass/Vol]10.1 mg/dLNormal8.5-10.1The [facility] Comment on above:Performed By: #### INFLUAB #### [facility] [address] [place] [address] Dr. Talia PlascenciaChloride [Moles/Vol]95 mmol/LCritically yfu92-473Jnc [facility] CenterComment on above:Performed By: #### INFLUAB #### [facility] [address] [place] [address] Dr. Talia PlascenciaCO2 [Moles/Vol]22.5 mmol/EFxzwzb56.0-32.0The [facility] Comment on above:Performed By: #### INFLUAB #### [facility] [address] [place] [address] Dr. Talia PlascenciaCreatinine [Mass/Vol]1.36 mg/dLCritically high0.70-1.30The [facility] CenterComment on above:Performed By: #### INFLUAB #### [facility] [address] [place] [address] Dr. Talia SchwabGFR-AF BOTSWANAN>60Normal>=60The [facility] CenterComment on above:Performed By: #### INFLUAB #### [facility] [address] [place] [address] Dr. Talia SchwabGFR-NON AF ZDXYCXDV09 mL/min/1.52e8Fzjcpguxjr low>=60The [facility] CenterComment on above:Performed By: #### INFLUAB #### [facility] [address] [place] [address] Dr. Talia PlascenciaGlobulin (S) [Mass/Vol]4.4 g/dLNoMercer County Community HospitalComment on above:Performed By: #### INFLUAB #### [facility] [address] [place] [address] Dr. Talia PlascenciaGlucose [Mass/Vol]220 mg/dLCritically llij79-458Vcg [facility] CenterComment on above:Performed By: #### INFLUAB #### [facility] [address] [place] [address] Dr. Talia PlascenciaPotassium [Moles/Vol]4.8 mmol/LNormal3.5-5.1The [facility] Comment on above:Performed By: #### INFLUAB #### [facility] [address] [place] [address] Dr. Talia PlascenciaProtein [Mass/Vol]8.7 g/dLCritically high6.4-8.2The [facility] CenterComment on above:Performed By: #### INFLUAB #### [facility] [address] [place] [address] Dr. Talia PlascenciaSodium [Moles/Vol]133 mmol/LCritically hbp119-385Xda [facility] CenterComment on above:Performed By: #### INFLUAB #### [facility] [address] [place] [address] Dr. Talia PlascenciaUrea nitrogen [Mass/Vol]28.0 mg/dLCritically high7.0-18.0The [facility] CenterComment on above:Performed By: #### INFLUAB #### [facility] [address] [place] [address] Dr. Talia PlascenciaUrea nitrogen/Creatinine [Mass ratio]20.6 mg/mgNoMercer County Community HospitalComment on above:Performed By: #### INFLUAB #### [facility] [address] [place] [address] Dr. Talia PlascenciaTESTOSTERONE, TOTALon 80-66-8603Xbyziwmewpwd [Mass/Vol]830 ng/dL Eckuej100-710Pki [facility] CenterComment on above:Result Comment: Adult male reference interval is based on a population of healthy nonobese males (BMI <30) between 19 and 39 years old. irina Lester.cj. JCEM 2017,102;1104-2441. PMID: [id number].Performed By: #### CBC #### [facility] [address] [place] [address] Dr. Talia Cedillo AUTO DIFFon 86-99-7834NYJW #0.1 103/ulNormal0.0-0.1The [facility] CenterComment on above:Performed By: #### POCGLUC #### [facility] [address] [place] [address] Dr. Talia PlascenciaBasophils/100 WBC (Bld)0.7 %Normal0.2-2.0The [facility] Comment on above:Performed By: #### POCGLUC #### [facility] [address] [place] [address] Dr. Melgar ChangEO #0.5 103/ulNormal0.0-0.7The [facility] CenterComment on above: Performed By: #### POCGLUC #### [facility] [address] [place] [address] Dr. Talia Schwabosinophils/100 WBC (Bld)5.8 %Normal0.9-7.0The [facility] Comment on above:Performed By: #### POCGLUC #### [facility] [address] [place] [address] Dr. Talia Schwabrythrocyte distribution width (RBC) [Ratio]15.0 %Huhtfm98.0-15.0 The [facility] CenterComment on above:Performed By: #### POCGLUC #### [facility] [address] [place] [address] Dr. Talia PlascenciaHematocrit (Bld) [Volume fraction]45.9 %Bpnkvb91.0-54.0The [facility] CenterComment on above:Performed By: #### POCGLUC #### [facility] [address] [place] [address] Dr. Talia PlascenciaHemoglobin (Bld) [Mass/Vol]15.8 g/wFRigsww76.0-18.0The [facility] HospitalComment on above:Performed By: #### POCGLUC #### [facility] [address] [address] [address] Talia Capone #0.03 10e3/ulNormal0.00-0.03The [facility] CenterComment on above:Performed By: #### POCGLUC #### [facility] [address] [address] [address] Talia Capone %0.4 %Normal0.0-0.5The [facility] CenterComment on above: Performed By: #### POCGLUC #### [facility] [address] [address] [address] Talia Carbajal #1.4 103/ulNormal1.2-3.8The [facility] CenterComment on above:Performed By: #### POCGLUC #### [facility] [address] [place] [address] Dr. Talia Bartonhocytes/100 WBC (Bld)17.3 %Critically low20.5-60.0The [facility] CenterComment on above:Performed By: #### POCGLUC #### [facility] [address] [address] [address] Talia DelucaUAL DIFF REQNONormalThe [facility] CenterComment on above: Performed By: #### POCGLUC #### [facility] [address] [address] [address] Talia German (RBC) [Entitic mass]27.4 fyLjnggw65.9-34.0The [facility] CenterComment on above:Performed By: #### POCGLUC #### [facility] [address] [address] [address] Talia German (RBC) [Mass/Vol]34.4 g/kQLxtrgx45.9-35.2The [facility] CenterComment on above:Performed By: #### POCGLUC #### [facility] [address] [place] [address] Dr. Talia German (RBC) [Entitic vol]79.5 fLCritically low80.0-94.0The [facility] CenterComment on above:Performed By: #### POCGLUC #### [facility] [address] [place] [address] Dr. Talia Echols #0.5 103/ulNormal0.3-0.8The [facility] CenterComment on above:Performed By: #### POCGLUC #### [facility] [address] [place] [address] Dr. Talia Moranocytes/100 WBC (Bld)6.6 %Normal1.7-12.0The [facility] Comment on above:Performed By: #### POCGLUC #### [facility] [address] [place] [address] Dr. Talia Malagon #5.6 103/ulNormal1.4-6.5The [facility] CenterComment on above:Performed By: #### POCGLUC #### [facility] [address] [place] [address] Dr. Talia Maddenutrophils/100 WBC (Bld)69.2 %Debqka03.0-75.0The [facility] CenterComment on above:Performed By: #### POCGLUC #### [facility] [address] [place] [address] Dr. Talia Nobles mean volume (Bld) [Entitic vol]10.5 fLNormal9.5-13.5The [facility] CenterComment on above:Performed By: #### POCGLUC #### [facility] [address] [place] [address] Dr. Talia QuachT216 103/qdLsiojt676-125Thx [facility] HospitalComment on above: Performed By: #### POCGLUC #### [facility] [address] [place] [address] Dr. Talia PlascenciaRBC5.77 106/ulNormal4.70-6.10The [facility] CenterComment on above:Performed By: #### POCGLUC #### [facility] [address] [place] [address] Dr. Talia PlascenciaWBC8.2 103/ulNormal4.0-11.0The [facility] CenterComment on above: Performed By: #### POCGLUC #### [facility] [address] [place] [address] Dr. Talia PlascenciaTESTOSTERONE, TOTALon 19-09-8320Iyyuebeeixsy [Mass/Vol]323 ng/dL Ntmjsn006-152Jff [facility] CenterComment on above:Result Comment: Adult male reference interval is based on a population of healthy nonobese males (BMI <30) between 19 and 39 years old. irina Lester.al. JCEM 2017,102;4209-9664. PMID: [id number].Performed By: #### TESTTOT #### [facility] [address] [place] [address] Dr. Talia AngelesC AUTO DIFFon 67-52-9572ZMMU #0.1 103/ulNormal0.0-0.1The [facility] CenterComment on above:Performed By: #### CBCMAN #### [facility] [address] [place] [address] Dr. Talia PlascenciaBasophils/100 WBC (Bld)0.9 %Normal0.2-2.0[facility] Comment on above:Performed By: #### CBCMAN #### [facility] [address] [place] [address] Dr. Talia Oliver #0.3 103/ulNormal0.0-0.7The [facility] CenterComment on above: Performed By: #### CBCMAN #### [facility] [address] [place] [address] Dr. Talia Schwabosinophils/100 WBC (Bld)4.0 %Normal0.9-7.0The [facility] Comment on above:Performed By: #### CBCMAN #### [facility] [address] [place] [address] Dr. Talia Schwabrythrocyte distribution width (RBC) [Ratio]15.6 %Critically high 11.0-15.0The [facility] CenterComment on above:Performed By: #### CBCMAN #### [facility] [address] [place] [address] Dr. Talia PlascenciaHematocrit (Bld) [Volume fraction]43.9 %Ctitbz41.0-54.0The [facility] Daytonment on above:Performed By: #### CBCANALI #### [facility] [address] [place] [address] Dr. Talia PlascenciaHemoglobin (Bld) [Mass/Vol]14.5 g/kKDvemqj43.0-18.0The [facility] CenterComment on above:Performed By: #### LILIAM #### [facility] [address] [place] [address] Dr. Talia Capone #0.02 10e3/ulNormal0.00-0.03The [facility] CenterComment on above:Performed By: #### LILIAM #### [facility] [address] [place] [address] Dr. Talia Capone %0.3 %Normal0.0-0.5The [facility] CenterComment on above: Performed By: #### LILIAM #### [facility] [address] [place] [address] Dr. Talia Carbajal #1.6 103/ulNormal1.2-3.8The [facility] CenterComment on above:Performed By: #### LILIAM #### [facility] [address] [place] [address] Dr. Talia Manleymphocytes/100 WBC (Bld)23.5 %Cwhlhn31.5-60.0The [facility] CenterComment on above:Performed By: #### CBCANALI #### [facility] [address] [place] [address] Dr. Talia DelucaUAL DIFF REQNONormalThe [facility] CenterComment on above: Performed By: #### CBCANALI #### [facility] [address] [place] [address] Dr. Talia Sanders (RBC) [Entitic mass]26.1 naApwcko72.9-34.0The [facility] CenterComment on above:Performed By: #### CBCANALI #### [facility] [address] [place] [address] Dr. Talia German (RBC) [Mass/Vol]33.0 g/mJEylqdu21.9-35.2The [facility] CenterComment on above:Performed By: #### CBCANALI #### [facility] [address] [place] [address] Dr. Talia German (RBC) [Entitic vol]79.0 fLCritically low80.0-94.0The [facility] CenterComment on above:Performed By: #### CBCANALI #### [facility] [address] [place] [address] Dr. Talia Echols #0.6 103/ulNormal0.3-0.8The [facility] CenterComment on above:Performed By: #### CBCANALI #### [facility] [address] [place] [address] Dr. Talia Moranocytes/100 WBC (Bld)8.2 %Normal1.7-12.0The [facility] Comment on above:Performed By: #### CBCANALI #### [facility] [address] [place] [address] Dr. Talia Malagon #4.4 103/ulNormal1.4-6.5The [facility] CenterComment on above:Performed By: #### CBCANALI #### [facility] [address] [place] [address] Dr. Talia Maddenutrophils/100 WBC (Bld)63.1 %Zamtpo74.0-75.0The [facility] CenterComment on above:Performed By: #### CBCANALI #### [facility] [address] [place] [address] Dr. Talia Swartzlet mean volume (Bld) [Entitic vol]11.6 fLNormal9.5-13.5The [facility] CenterComment on above:Performed By: #### CBCANALI #### [facility] [address] [place] [address] Dr. Talia QuachT247 103/kiMrswda637-763Bzg [facility] CenterComment on above: Performed By: #### CBCMAN #### [facility] [address] [place] [address] Dr. Talia PlascenciaRBC5.56 106/ulNormal4.70-6.10The [facility] CenterComment on above:Performed By: #### CBCMAN #### [facility] [address] [place] [address] Dr. Talia PlascenciaWBC6.9 103/ulNormal4.0-11.0The [facility] CenterComment on above: Performed By: #### CBCMAN #### [facility] [address] [place] [address] Dr. Talia Cedillo AUTO DIFFon 43-06-0610DZCF #0.0 103/ulNormal0.0-0.1The [facility] CenterComment on above:Performed By: #### CBC #### [facility] [address] [place] [address] Dr. Talia PlascenciaBasophils/100 WBC (Bld)0.4 %Normal0.2-2.0[facility] Comment on above:Performed By: #### CBC #### [facility] [address] [place] [address] Dr. Talia Oliver #0.3 103/ulNormal0.0-0.7The [facility] CenterComment on above: Performed By: #### CBC #### [facility] [address] [place] [address] Dr. Talia Schwabosinophils/100 WBC (Bld)4.4 %Normal0.9-7.0The [facility] Comment on above:Performed By: #### CBC #### [facility] [address] [place] [address] Dr. Talia Schwabrythrocyte distribution width (RBC) [Ratio]15.1 %Critically high 11.0-15.0The [facility] CenterComment on above:Performed By: #### CBC #### [facility] [address] [place] [address] Dr. Talia PlascenciaHematocrit (Bld) [Volume fraction]42.0 %Ftkbao05.0-54.0The [facility] CenterComment on above:Performed By: #### CBC #### [facility] [address] [address] [address] Talia PlascenciaHemoglobin (Bld) [Mass/Vol]14.2 g/hIEhbtcl26.0-18.0The [facility] HospitalComment on above:Performed By: #### CBC #### [facility] [address] [place] [address] Dr. Talia PlascenciaIG #0.02 10e3/ulNormal0.00-0.03The [facility] CenterComment on above:Performed By: #### CBC #### [facility] [address] [place] [address] Dr. Talia PlascenciaIG %0.3 %Normal0.0-0.5The [facility] CenterComment on above: Performed By: #### CBC #### [facility] [address] [place] [address] Dr. Talia Carbajal #1.1 103/ulCritically low1.2-3.8The [facility] Comment on above:Performed By: #### CBC #### [facility] [address] [place] [address] Dr. Talia Manleymphocytes/100 WBC (Bld)14.5 %Critically low20.5-60.0The [facility] CenterComment on above:Performed By: #### CBC #### [facility] [address] [place] [address] Dr. Talia PlascenciaMANUAL DIFF REQNONormalThe [facility] CenterComment on above: Performed By: #### CBC #### [facility] [address] [place] [address] Dr. Talia Sanders (RBC) [Entitic mass]26.4 pfRtyfts68.9-34.0The [facility] CenterComment on above:Performed By: #### CBC #### [facility] [address] [place] [address] Dr. Talia GermanHC (RBC) [Mass/Vol]33.8 g/pQGdupsh18.9-35.2The [facility] CenterComment on above:Performed By: #### CBC #### [facility] [address] [address] [address] Talia GermanV (RBC) [Entitic vol]78.2 fLCritically low80.0-94.0The [facility] CenterComment on above:Performed By: #### CBC #### [facility] [address] [address] [address] Talia Echols #0.5 103/ulNormal0.3-0.8The [facility] CenterComment on above:Performed By: #### CBC #### [facility] [address] [place] [address] Dr. Talia Moranocytes/100 WBC (Bld)6.8 %Normal1.7-12.0The [facility] Comment on above:Performed By: #### CBC #### [facility] [address] [place] [address] Dr. Talia Malagon #5.6 103/ulNormal1.4-6.5The [facility] CenterComment on above:Performed By: #### CBC #### [facility] [address] [place] [address] Dr. Talia Maddenutrophils/100 WBC (Bld)73.6 %Ltpixa56.0-75.0The [facility] CenterComment on above:Performed By: #### CBC #### [facility] [address] [address] [address] Talia Swartzlet mean volume (Bld) [Entitic vol]10.7 fLNormal9.5-13.5The [facility] CenterComment on above:Performed By: #### CBC #### [facility] [address] [place] [address] Dr. Talia PlascenciaPLT182 103/roFawpub615-905Kbn [facility] CenterComment on above: Performed By: #### CBC #### [facility] [address] [place] [address] Dr. Talia PlascenciaRBC5.37 106/ulNormal4.70-6.10The [facility] on above:Performed By: #### CBC #### [facility] [address] [place] [address] Dr. Talia PlascenciaWBC7.7 103/ulNormal4.0-11.0The [facility] Daytonment on above: Performed By: #### CBC #### [facility] [address] [place] [address] Dr. Talia PlascenciaCRRenard 48-80-4190XUO23.2 mg/dLCritically high<=1.0The [facility] on above:Performed By: #### CBCMAN #### [facility] [address] [place] [address] Dr. Talia PlascenciaLA CRESCENTA OF CARE GLUCOSEon [id number] [Mass/Vol]135 mg/dL Critically pxam90-566Gbv [facility] on above:Performed By: #### POCGLUC #### [facility] [address] [place] [address] Dr. Talia PlascenciaPROF 14(COMP METB)on 65-98-8934Dfmclut [Mass/Vol]3.2 g/dL Critically low3.4-5.0The [facility] on above:Performed By: #### INFLUAB #### [facility] [address] [place] [address] Dr. Talia PlascenciaAlbumin/Globulin [Mass ratio]0.8 {ratio}NormalThe [facility] on above:Performed By: #### INFLUAB #### [facility] [address] [place] [address] Dr. Talia Myers [Catalytic activity/Vol]61 U/ZMyyjbs30-076Okn [facility] on above:Performed By: #### INFLUAB #### [facility] [address] [place] [address] Dr. Talia Cody [Catalytic activity/Vol]25 U/UOkkrvk46-53Zlj [facility] HospitalComment on above:Performed By: #### INFLUAB #### [facility] [address] [address] [address] Talia Pérez gap [Moles/Vol]15.6 mmol/LNormalPremier Health [facility] Comment on above:Performed By: #### INFLUAB #### [facility] [address] [address] [address] Talia PlascenciaAST [Catalytic activity/Vol]31 U/NCwlqix75-17Lai [facility] CenterComment on above:Performed By: #### INFLUAB #### [facility] [address] [address] [address] Talia PlascenciaBilirubin [Mass/Vol]0.6 mg/dLNormal0.2-1.0[facility] Comment on above:Performed By: #### INFLUAB #### [facility] [address] [address] [address] Talia PlascenciaCalcium [Mass/Vol]8.7 mg/dLNormal8.5-10.1[facility] Comment on above:Performed By: #### INFLUAB #### [facility] [address] [address] [address] Talia PlascenciaChloride [Moles/Vol]99 mmol/LIozkli47-096Cpe [facility] Comment on above:Performed By: #### INFLUAB #### [facility] [address] [address] [address] Talia PlascenciaCO2 [Moles/Vol]22.6 mmol/KBddqrt55.0-32.0The [facility] Comment on above:Performed By: #### INFLUAB #### [facility] [address] [address] [address] Talia PlascenciaCreatinine [Mass/Vol]1.06 mg/dLNormal0.70-1.30The [facility] CenterComment on above:Performed By: #### INFLUAB #### [facility] [address] [address] [address] Melgar ChangEGFR-AF BOTSWANAN>60Normal>=60The [facility] CenterComment on above:Performed By: #### INFLUAB #### [facility] [address] [address] [address] Talia SchwabGFR-NON AF BOTSWANAN>60Normal>=60The [facility] CenterComment on above:Performed By: #### INFLUAB #### [facility] [address] [address] [address] Talia PlascenciaGlobulin (S) [Mass/Vol]3.8 g/dLNormalThMercy Health Kings Mills HospitalComment on above:Performed By: #### INFLUAB #### [facility] [address] [address] [address] Talia PlascenciaGlucose [Mass/Vol]136 mg/dLCritically umkt89-508Wdl [facility] CenterComment on above:Performed By: #### INFLUAB #### [facility] [address] [place] [address] Dr. Talia PlascenciaPotassium [Moles/Vol]4.2 mmol/LNormal3.5-5.1The [facility] Comment on above:Performed By: #### INFLUAB #### [facility] [address] [address] [address] Talia PlascenciaProtein [Mass/Vol]7.0 g/dLNormal6.4-8.2The [facility] Comment on above:Performed By: #### INFLUAB #### [facility] [address] [address] [address] Talia PlascenciaSodium [Moles/Vol]133 mmol/LCritically sbu991-117Miq [facility] CenterComment on above:Performed By: #### INFLUAB #### [facility] [address] [address] [address] Talia PlascenciaUrea nitrogen [Mass/Vol]15.0 mg/dLNormal7.0-18.0The [facility] CenterComment on above:Performed By: #### INFLUAB #### [facility] [address] [address] [address] Talia PlascenciaUrea nitrogen/Creatinine [Mass ratio]14.2 mg/mgNormalThe [facility] CenterComment on above:Performed By: #### INFLUAB #### [facility] [address] [place] [address] Dr. Talia Marinelli. DIFF PCRon 2C. DIFFICILE PCRNegativeNormalNEGATIVEThe [facility] CenterComment on above:Performed By: #### POCGLUC #### [facility] [address] [place] [address] Dr. Talia Cedillo AUTO DIFFon [id number] #0.0 103/ulNormal0.0-0.1The [facility] CenterComment on above:Performed By: #### POCGLUC #### [facility] [address] [place] [address] Dr. Talia PlascenciaBasophils/100 WBC (Bld)0.3 %Normal0.2-2.0[facility] Comment on above:Performed By: #### POCGLUC #### [facility] [address] [place] [address] Dr. Talia Oliver #0.2 103/ulNormal0.0-0.7The [facility] CenterComment on above: Performed By: #### POCGLUC #### [facility] [address] [place] [address] Dr. Talia Schwabosinophils/100 WBC (Bld)2.9 %Normal0.9-7.0[facility] Comment on above:Performed By: #### POCGLUC #### [facility] [address] [place] [address] Dr. Talia Schwabrythrocyte distribution width (RBC) [Ratio]14.8 %Kcznou72.0-15.0 [facility] SouthComment on above:Performed By: #### POCGLUC #### [facility] [address] [place] [address] Dr. Talia PlascenciaHematocrit (Bld) [Volume fraction]40.0 %Critically low42.0-54.0 The [facility] CenterComment on above:Performed By: #### POCGLUC #### [facility] [address] [place] [address] Dr. Talia PlascenciaHemoglobin (Bld) [Mass/Vol]13.5 g/dLCritically low14.0-18.0The [facility] CenterComment on above:Performed By: #### POCGLUC #### [facility] [address] [place] [address] Dr. Talia Capone #0.02 10e3/ulNormal0.00-0.03The [facility] CenterComment on above:Performed By: #### POCGLUC #### [facility] [address] [place] [address] Dr. Talia Capone %0.3 %Normal0.0-0.5The [facility] CenterComment on above: Performed By: #### POCGLUC #### [facility] [address] [place] [address] Dr. Talia Carbajal #0.8 103/ulCritically low1.2-3.8The [facility] Comment on above:Performed By: #### POCGLUC #### [facility] [address] [place] [address] Dr. Talia Bartonhocytes/100 WBC (Bld)11.5 %Critically low20.5-60.0The [facility] CenterComment on above:Performed By: #### POCGLUC #### [facility] [address] [place] [address] Dr. Talia DelucaUAL DIFF REQNONormalThe [facility] CenterComment on above: Performed By: #### POCGLUC #### [facility] [address] [place] [address] Dr. Talia German (RBC) [Entitic mass]26.3 chErzqug83.9-34.0The [facility] CenterComment on above:Performed By: #### POCGLUC #### [facility] [address] [place] [address] Dr. Talia German (RBC) [Mass/Vol]33.8 g/dMEknjnu07.9-35.2The [facility] CenterComment on above:Performed By: #### POCGLUC #### [facility] [address] [address] [address] Talia GermanV (RBC) [Entitic vol]78.0 fLCritically low80.0-94.0The [facility] on above:Performed By: #### POCGLUC #### [facility] [address] [place] [address] Dr. Talia Echols #0.6 103/ulNormal0.3-0.8The [facility] CenterComment on above:Performed By: #### POCGLUC #### [facility] [address] [place] [address] Dr. Talia Moranocytes/100 WBC (Bld)9.1 %Normal1.7-12.0The [facility] Comment on above:Performed By: #### POCGLUC #### [facility] [address] [place] [address] Dr. Talia Malagon #5.2 103/ulNormal1.4-6.5The [facility] on above:Performed By: #### POCGLUC #### [facility] [address] [place] [address] Dr. Talia Maddenutrophils/100 WBC (Bld)75.9 %Critically high43.0-75.0The [facility] CenterComment on above:Performed By: #### POCGLUC #### [facility] [address] [place] [address] Dr. Talia Swartzlet mean volume (Bld) [Entitic vol]10.7 fLNormal9.5-13.5The [facility] on above:Performed By: #### POCGLUC #### [facility] [address] [place] [address] Dr. Talia PlascenciaPLT149 103/ulCritically uql720-962Tsr [facility] on above:Performed By: #### POCGLUC #### [facility] [address] [place] [address] Dr. Talia PlascenciaRBC5.13 106/ulNormal4.70-6.10The [facility] CenterComment on above:Performed By: #### POCGLUC #### [facility] [address] [place] [address] Dr. Talia PlascenciaWBC6.8 103/ulNormal4.0-11.0The [facility] on above: Performed By: #### POCGLUC #### [facility] [address] [place] [address] Dr. Talia Win 92-39-2184FEX47.2 mg/dLCritically high<=1.0The [facility] CenterComascension [facility] on above:Performed By: #### INFLUAB #### [facility] [address] [place] [address] Dr. Talia Cordero URINE PROFILEon 83-47-4705Ybccteqog Ql (U)NegativeNormal NEGATIVEThe [facility] CenterComascension [facility] on above:Performed By: #### DESMOND ERUR #### [facility] [address] [place] [address] Dr. Talia PlascenciaClarity (U)CLEARNormalCLEARPremier Health [facility] Hospital SouthComment on above: Performed By: #### DESMOND ERUR #### [facility] [address] [place] [address] Dr. Talia Go (U)YELLOWNormalYELLOWPremier Health [facility] SouthComasc[facility] on above: Performed By: #### DESMOND ERUR #### [facility] [address] [place] [address] Dr. Talia Rosales micrscopic examination will be performed if indicated. NormalThe [facility] CenterComasc[facility] on above:Performed By: #### DESMOND, ERUR #### [facility] [address] [place] [address] Dr. Talia PlascenciaGlucose Ql (U)>1000AbnormalNEGATIVEThe [facility] CenterComasc[facility] on above:Performed By: #### UMICRO, ERUR #### [facility] [address] [place] [address] Dr. Talia PlascenciaHemoglobin Ql (U)TRACE-INTACTAbnormalNEGATIVEPremier Health [facility] SouthComascension [facility] on above:Performed By: #### DESMOND ERUR #### [facility] [address] [address] [address] Talia Fuchs Ql (U)TRACEAbnormalNEGATIVEThe [facility] CenterComment on above:Performed By: #### DESMOND ERUR #### [facility] [address] [place] [address] Dr. Talia PlascenciaLEUKOCYTESNegativeNormalNEGATIVEThe [facility] CenterComment on above:Performed By: #### DESMOND ERUR #### [facility] [address] [address] [address] Talia Goldmantrcolleen Ql (U)NegativeNormalNEGATIVEThe [facility] CenterComment on above:Performed By: #### DESMOND ERUR #### [facility] [address] [place] [address] Dr. Talia PlascenciapH (U)6.0 [pH]Normal5-9The [facility] CenterComment on above: Performed By: #### DESMOND ERUR #### [facility] [address] [place] [address] Dr. Talia PlascenciaSPEC GRAVITY1.724Vuglca3.005-<=1.025The [facility] CenterComment on above:Performed By: #### DESMOND ERUR #### [facility] [address] [place] [address] Dr. Talia PlascenciaUA PROTEINNegativeNormalNEGATIVE/ TRACEThe [facility] on above:Performed By: #### DESMOND ERUR #### [facility] [address] [place] [address] Dr. Talia Jefferson MICRO INDINDICATEDNormalThe [facility] CenterComment on above: Performed By: #### JACKLYN LOGANR #### [facility] [address] [place] [address] Dr. Talia Haleyinogen Qn (U)1.0 {Suellen'U}/dLNormal0.2 - 1.0The [facility] CenterComment on above:Performed By: #### JACKLYN LOGANR #### [facility] [address] [address] [address] Talia PlascenciaPOINT OF CARE GLUCOSEon 52-85-5257Aamigst [Mass/Vol]148 mg/dL Critically trhr91-001Yas [facility] CenterComment on above:Performed By: #### INFLUAB #### [facility] [address] [address] [address] Talia PlascenciaGlucose [Mass/Vol]199 mg/dLCritically mtko45-485Nyl [facility] CenterComment on above:Performed By: #### CBC #### [facility] [address] [address] [address] Talia PlascenciaGlucose [Mass/Vol]176 mg/dLCritically olxv30-155Bhf [facility] CenterComment on above:Performed By: #### INFLUAB #### [facility] [address] [place] [address] Dr. Talia PlascenciaPROF 14(COMP METB)on 08-82-0382Ofknknc [Mass/Vol]2.9 g/dL Critically low3.4-5.0The [facility] CenterComment on above:Performed By: #### INFLUAB #### [facility] [address] [address] [address] Talia PlascenciaAlbumin/Globulin [Mass ratio]0.8 {ratio}NormalThe [facility] CenterComment on above:Performed By: #### INFLUAB #### [facility] [address] [address] [address] Talia Myers [Catalytic activity/Vol]58 U/AZymief94-108Alh [facility] CenterComment on above:Performed By: #### INFLUAB #### [facility] [address] [address] [address] Talia Cody [Catalytic activity/Vol]20 U/JBvdsov50-74Ots [facility] CenterComment on above:Performed By: #### INFLUAB #### [facility] [address] [address] [address] Talia Pérez gap [Moles/Vol]12.7 mmol/LNormalThe [facility] Comment on above:Performed By: #### INFLUAB #### [facility] [address] [address] [address] Talia PlascenciaAST [Catalytic activity/Vol]25 U/MFemgbo49-55Jxc [facility] CenterComment on above:Performed By: #### INFLUAB #### [facility] [address] [address] [address] Talia PlascenciaBilirubin [Mass/Vol]0.7 mg/dLNormal0.2-1.0[facility] Comment on above:Performed By: #### INFLUAB #### [facility] [address] [address] [address] Talia PlascenciaCalcium [Mass/Vol]8.1 mg/dLCritically low8.5-10.1The [facility] CenterComment on above:Performed By: #### INFLUAB #### [facility] [address] [address] [address] Talia PlascenciaChloride [Moles/Vol]101 mmol/ZVrvkcn03-602Xkb [facility] Comment on above:Performed By: #### INFLUAB #### [facility] [address] [address] [address] Talia PlascenciaCO2 [Moles/Vol]22.3 mmol/EGafiep47.0-32.0[facility] Comment on above:Performed By: #### INFLUAB #### [facility] [address] [address] [address] Talia PlascenciaCreatinine [Mass/Vol]1.13 mg/dLNormal0.70-1.30The [facility] CenterComment on above:Performed By: #### INFLUAB #### [facility] [address] [address] [address] Melgar ChangEGFR-AF BOTSWANAN>60Normal>=60The [facility] CenterComment on above:Performed By: #### INFLUAB #### [facility] [address] [address] [address] Melgar ChangEGFR-NON AF BOTSWANAN>60Normal>=60The [facility] CenterComment on above:Performed By: #### INFLUAB #### [facility] [address] [address] [address] Talia PlascenciaGlobulin (S) [Mass/Vol]3.6 g/dLNormalThMercy Health Kings Mills HospitalComment on above:Performed By: #### INFLUAB #### [facility] [address] [address] [address] Talia PlascenciaGlucose [Mass/Vol]148 mg/dLCritically wnml07-175Cip [facility] CenterComment on above:Performed By: #### INFLUAB #### [facility] [address] [address] [address] Talia PlascenciaPotassium [Moles/Vol]4.0 mmol/LNormal3.5-5.1The [facility] Comment on above:Performed By: #### INFLUAB #### [facility] [address] [address] [address] Talia PlascenciaProtein [Mass/Vol]6.5 g/dLNormal6.4-8.2The [facility] Comment on above:Performed By: #### INFLUAB #### [facility] [address] [address] [address] Tlaia PlascenciaSodium [Moles/Vol]132 mmol/LCritically akx644-138Sxb [facility] on above:Performed By: #### INFLUAB #### [facility] [address] [address] [address] Talia PlascenciaUrea nitrogen [Mass/Vol]19.0 mg/dLCritically high7.0-18.0[facility] Hospitalment on above:Performed By: #### INFLUAB #### [facility] [address] [address] [address] Talia Chambers nitrogen/Creatinine [Mass ratio]16.8 mg/mgNoMercer County Community HospitalComascension [facility] on above:Performed By: #### INFLUAB #### [facility] [address] [address] [address] Talia PlascenciaURINE MICROSCOPIC ONLYon 96-01-5343SAENKFHMZLLS SEENNormalNONE SEENMercy Health Tiffin Hospital on above:Performed By: #### CVDTBH #### [facility] [address] [address] [address] Talia Abel identified Cx Nom (U)NOT INDICATEDCincinnati VA Medical Center on above:Performed By: #### CVDTBH #### [facility] [address] [address] [address] Talia PlascenciaCASTNONE SEENNormalNONE SEENMercy Health Tiffin Hospital on above:Performed By: #### CVDTBH #### [facility] [address] [address] [address] Talia Whiteystals LM Nom (Urine sed)SEENAbnormalNONE SEENMercy Health Tiffin Hospital on above:Performed By: #### CVDTBH #### [facility] [address] [address] [address] Melgar ChangEpithelial cells LM Ql (Urine sed)NONE SEENNormalNONE SEEN /RARE [facility] on above:Performed By: #### CVDTBH #### [facility] [address] [address] [address] Talia MayCOUSNONE SEENNormalNONE [facility] on above:Performed By: #### CVDTBH #### [facility] [address] [address] [address] Talia PortilloCNJENNIFER SEENAbrmal0-2[facility] on above: Performed By: #### CVDTBH #### [facility] [address] [address] [address] Talia PlascenciaURIC ACID CRYSTALSFESouthern Ohio Medical CenterComascension [facility] on above: Performed By: #### CVDTBH #### [facility] [address] [address] [address] Talia PlascenciaWBCNONE SEENNormalNONE [facility] on above: Performed By: #### CVDTBH #### [facility] [address] [address] [address] Talia Cedillo W MANUAL DIFFon [id number] LYMPH #NormalThe [facility] HospitalComment on above:Performed By: #### CVDTBH #### [facility] [address] [place] [address] Dr. Talia PlascenciaATYPICAL LYMPH %NormalThe [facility] HospitalComment on above: Performed By: #### CVDTBH #### [facility] [address] [place] [address] Dr. Talia John #0.2 103/ulNormal0.0-0.3The [facility] HospitalComment on above:Performed By: #### CVDTBH #### [facility] [address] [place] [address] Dr. Talia John %2 %Normal0-5The [facility] HospitalComment on above:Performed By: #### AXELTBH #### [facility] [address] [place] [address] Dr. Talia Wesley #0.00 103/ulNormal0.00-0.10The [facility] CenterComment on above:Performed By: #### CVDTBH #### [facility] [address] [place] [address] Dr. Talia Wesley %0.0 %Critically low0.2-2.0The [facility] HospitalComment on above:Performed By: #### CVDTBH #### [facility] [address] [place] [address] Dr. Talia Hough #NormalThe [facility] HospitalComment on above:Performed By: #### CVDTBH #### [facility] [address] [place] [address] Dr. Talia Hough %NormalThe [facility] HospitalComment on above:Performed By: #### CVDTBH #### [facility] [address] [place] [address] Dr. Talia PlascenciaCORRECTED WBCNormal4.0-11.0The [facility] HospitalComment on above: Performed By: #### CVDTBH #### [facility] [address] [address] [address] Talia Bunch #0.00 103/ulNormal0.00-0.70The [facility] CenterComment on above:Performed By: #### CVDTBH #### [facility] [address] [address] [address] Talia Bunch%0.0 %Critically low0.9-7.0The [facility] CenterComment on above:Performed By: #### CVDTBH #### [facility] [address] [address] [address] Talia RojasT40.0 %Critically low42.0-54.0The [facility] CenterComment on above:Performed By: #### CVDTBH #### [facility] [address] [address] [address] Talia PlascenciaHGB13.6 g/dlCritically low14.0-18.0The [facility] CenterComment on above:Performed By: #### CVDTBH #### [facility] [address] [address] [address] Talia Chaparro #0.61 103/ulCritically low1.20-3.80The [facility] Comment on above:Performed By: #### CVDTBH #### [facility] [address] [address] [address] Talia Chaparro%6.0 %Critically low20.5-60.0The [facility] CenterComment on above:Performed By: #### CVDTBH #### [facility] [address] [address] [address] Talia GermanH26.5 xzHjrtaj21.9-34.0The [facility] CenterComment on above: Performed By: #### CVDTBH #### [facility] [address] [address] [address] Talia GermanHC34.0 g/zvDmhbpr88.9-35.2The [facility] CenterComment on above:Performed By: #### CVDTBH #### [facility] [address] [place] [address] Dr. Talia GermanV78.0 fLCritically low80.0-94.0The [facility] CenterComment on above:Performed By: #### CVDTBH #### [facility] [address] [place] [address] Dr. Talia AshfordOCYTE #NormalThe [facility] HospitalComment on above: Performed By: #### CVDTBH #### [facility] [address] [place] [address] Dr. Talia AshfordOCYTE %NormalThe [facility] CenterComment on above: Performed By: #### CVDTBH #### [facility] [address] [place] [address] Dr. Talia Pascual#0.71 103/ulNormal0.30-0.80The [facility] CenterComment on above:Performed By: #### CVDTBH #### [facility] [address] [place] [address] Dr. Talia Pascual%7.0 %Normal1.7-12.0The [facility] CenterComment on above: Performed By: #### CVDTBH #### [facility] [address] [place] [address] Dr. Talia JonV10.2 fLNormal9.5-13.5The [facility] CenterComment on above: Performed By: #### CVDTBH #### [facility] [address] [place] [address] Dr. Talia Medina #NormalPremier Health Miami Valley Hospital SouthComment on above:Performed By: #### CVDTBH #### [facility] [address] [place] [address] Dr. Talia CrossOCYTE %NormalThe [facility] CenterComment on above:Performed By: #### CVDTBH #### [facility] [address] [place] [address] Dr. Talia SalinasBCNormalThe [facility] CenterComment on above:Performed By: #### CVDTBH #### [facility] [address] [address] [address] Talia PlascenciaPLT141 103/ulCritically vzt879-426Dzp [facility] CenterComment on above:Performed By: #### CVDTBH #### [facility] [address] [address] [address] Talia PlascenciaRBC5.13 106/ulNormal4.70-6.10The [facility] CenterComment on above:Performed By: #### CVDTBH #### [facility] [address] [address] [address] Talia PlascenciaRDW14.7 %Lbftdo43.0-15.0The [facility] CenterComment on above: Performed By: #### CVDTBH #### [facility] [address] [address] [address] Talia Alejandro #8.67 103/ulCritically high1.40-6.50The [facility] Comment on above:Performed By: #### CVDTBH #### [facility] [address] [place] [address] Dr. Talia Alejandro %85.0 %Critically high43.0-75.0The [facility] CenterComment on above:Performed By: #### CVDTBH #### [facility] [address] [place] [address] Dr. Talia PlascenciaWBC10.2 103/ulNormal4.0-11.0The [facility] CenterComment on above:Performed By: #### CVDTBH #### [facility] [address] [address] [address] Talia Win 01-67-7111MVI [Mass/Vol]mg/LCritically high<=1.0The [facility] CenterComment on above:Performed By: #### CVDTBH #### [facility] [address] [address] [address] Talia PlascenciaATRIUM HEALTH NAVICENT PEACH GLUCOSEon 63-93-5083Duklhlk [Mass/Vol]144 mg/dL Critically bgji51-710Eny [facility] CenterComment on above:Performed By: #### CBCMAN #### [facility] [address] [address] [address] Talia PlascenciaGlucose [Mass/Vol]123 mg/dLCritically cimb03-425Qpx [facility] CenterComment on above:Performed By: #### INFLUAB #### [facility] [address] [address] [address] Talia PlascenciaGlucose [Mass/Vol]222 mg/dLCritically wlcx92-215Qyk [facility] CenterComment on above:Performed By: #### POCGLUC #### [facility] [address] [address] [address] Talia PlascenciaGlucose [Mass/Vol]174 mg/dLCritically pbor13-039Vjm [facility] CenterComment on above:Performed By: #### CBC #### [facility] [address] [address] [address] Talia PlascenciaPROF 14(COMP METB)on 78-81-0564Syoomih [Mass/Vol]2.9 g/dL Critically low3.4-5.0The [facility] CenterComment on above:Performed By: #### CBCMAN #### [facility] [address] [address] [address] Talia PlascenciaAlbumin/Globulin [Mass ratio]0.9 {ratio}NormalThe [facility] CenterComment on above:Performed By: #### CBCMAN #### [facility] [address] [address] [address] Talia Myers [Catalytic activity/Vol]55 U/WKnxluq86-455Clr [facility] CenterComment on above:Performed By: #### CBCMAN #### [facility] [address] [address] [address] Talia Cody [Catalytic activity/Vol]19 U/CYueprn05-46Qnv [facility] CenterComment on above:Performed By: #### CBCMAN #### [facility] [address] [address] [address] Talia Pérez gap [Moles/Vol]16.2 mmol/LNormalThe [facility] Comment on above:Performed By: #### CBCMAN #### [facility] [address] [address] [address] Talia PlascenciaAST [Catalytic activity/Vol]32 U/HLrkysp65-75Cti [facility] Daytonment on above:Performed By: #### CBCANALI #### [facility] [address] [address] [address] Talia PlascenciaBilirubin [Mass/Vol]1.3 mg/dLCritically high0.2-1.0The [facility] CenterComment on above:Performed By: #### CBCANALI #### [facility] [address] [address] [address] Talia PlascenciaCalcium [Mass/Vol]7.8 mg/dLCritically low8.5-10.1The [facility] CenterComment on above:Performed By: #### LILIAM #### [facility] [address] [place] [address] Dr. Talia PlascenciaChloride [Moles/Vol]99 mmol/VPbkrrw39-083Xlo [facility] Comment on above:Performed By: #### CBCANALI #### [facility] [address] [address] [address] Talia PlascenciaCO2 [Moles/Vol]20.2 mmol/LCritically low21.0-32.0The [facility] CenterComascension [facility] on above:Performed By: #### CBCANALI #### [facility] [address] [place] [address] Dr. Talia PlascenciaCreatinine [Mass/Vol]1.34 mg/dLCritically high0.70-1.30The [facility] CenterComascension [facility] on above:Performed By: #### CBCANALI #### [facility] [address] [place] [address] Dr. Melgar ChangEGFR-AF BOTSWANAN>60Normal>=60The [facility] Daytonment on above:Performed By: #### CBCMAN #### [facility] [address] [place] [address] Dr. Talia SchwabGFR-NON AF CIDKMHUT65 mL/min/1.06b2Fedqdlhfba low>=60The [facility] Daytonment on above:Performed By: #### CBCMAN #### [facility] [address] [address] [address] Talia PlascenciaGlobulin (S) [Mass/Vol]3.4 g/dLNoMercer County Community HospitalComment on above:Performed By: #### CBCANALI #### [facility] [address] [address] [address] Talia PlascenciaGlucose [Mass/Vol]179 mg/dLCritically wwtf01-220Lys [facility] CenterComment on above:Performed By: #### CBCANALI #### [facility] [address] [address] [address] Talia PlascenciaPotassium [Moles/Vol]4.4 mmol/LNormal3.5-5.1The [facility] Comment on above:Performed By: #### CBCANALI #### [facility] [address] [address] [address] Talia PlascenciaProtein [Mass/Vol]6.3 g/dLCritically low6.4-8.2The [facility] CenterComment on above:Performed By: #### CBCANALI #### [facility] [address] [address] [address] Talia PlascenciaSodium [Moles/Vol]131 mmol/LCritically mfj315-933[facility] on above:Performed By: #### CBCANALI #### [facility] [address] [address] [address] Talia PlascenciaUrea nitrogen [Mass/Vol]25.0 mg/dLCritically high7.0-18.0The [facility] CenterComment on above:Performed By: #### CBCANALI #### [facility] [address] [address] [address] Talia Chambers nitrogen/Creatinine [Mass ratio]18.7 mg/mgNoMercer County Community HospitalComascension [facility] on above:Performed By: #### CBCANALI #### [facility] [address] [address] [address] Talia Ny 72-70-8910Dlzjmncvoce peptide B (Bld) [Mass/Vol]346.0 pg/mL Normal<=900.0The [facility] CenterComment on above:Performed By: #### LILIAM #### [facility] [address] [address] [address] Talia Cedillo W MANUAL DIFFon 68-36-4404ZZOPTSAZ LYMPH #NormalThe [facility] CenterComment on above:Performed By: #### LILIAM #### [facility] [address] [address] [address] Talia PickardYPICAL LYMPH %NormalThe Salem HospitalComment on above: Performed By: #### LILIAM #### [facility] [address] [address] [address] Talia John #Normal0.0-0.3The [facility] CenterComment on above: Performed By: #### LILIAM #### [facility] [address] [place] [address] Dr. Talia John %Normal0-5The [facility] CenterComment on above:Performed By: #### LILIAM #### [facility] [address] [place] [address] Dr. Talia Wesley #0.00 103/ulNormal0.00-0.10The [facility] on above:Performed By: #### LILIAM #### [facility] [address] [address] [address] Talia Wesley %0.0 %Critically low0.2-2.0The [facility] CenterComment on above:Performed By: #### LILIAM #### [facility] [address] [place] [address] Dr. Talia Hough #NormalPremier Health Miami Valley Hospital SouthComment on above:Performed By: #### LILIAM #### [facility] [address] [place] [address] Dr. Talia Hough %NormalPremier Health Miami Valley Hospital SouthComment on above:Performed By: #### LILIAM #### [facility] [address] [place] [address] Dr. Talia PlascenciaCORRECTED WBCNormal4.0-11.0The [facility]daleno HospitalComment on above: Performed By: #### CBCANALI #### [facility] [address] [address] [address] Talia Bunch #0.00 103/ulNormal0.00-0.70The [facility] CenterComment on above:Performed By: #### CBCANALI #### [facility] [address] [address] [address] Talia Bunch%0.0 %Critically low0.9-7.0The [facility] CenterComment on above:Performed By: #### CBCANALI #### [facility] [address] [address] [address] Talia PlascenciaHCT45.5 %Anuche47.0-54.0The [facility] CenterComment on above: Performed By: #### CBCANALI #### [facility] [address] [address] [address] Talia PlascenciaHGB15.5 g/ayYgktxs28.0-18.0The [facility] CenterComment on above: Performed By: #### CBCANALI #### [facility] [address] [address] [address] Talia Chaparro #0.33 103/ulCritically low1.20-3.80The [facility] on above:Performed By: #### CBCANALI #### [facility] [address] [address] [address] Talia Chaparro%2.0 %Critically low20.5-60.0The [facility] CenterComment on above:Performed By: #### CBCANALI #### [facility] [address] [address] [address] Talia PlascenciaMCH26.3 ciPznvwv50.9-34.0The [facility] CenterComment on above: Performed By: #### CBCMAN #### [facility] [address] [address] [address] Talia GermanHC34.1 g/upNcpvvq62.9-35.2The [facility] CenterComment on above:Performed By: #### CBCMAN #### [facility] [address] [address] [address] Talia GermanV77.1 fLCritically low80.0-94.0The [facility] CenterComment on above:Performed By: #### LILIAM #### [facility] [address] [address] [address] Talia AshfordOCYTE #NormalThe [facility] HospitalComment on above: Performed By: #### LILIAM #### [facility] [address] [place] [address] Dr. Talia AshfordOCYTE %NormalPremier Health Miami Valley Hospital SouthComment on above: Performed By: #### LILIAM #### [facility] [address] [place] [address] Dr. Talia Pascual#1.00 103/ulCritically high0.30-0.80The [facility] on above:Performed By: #### LILIAM #### [facility] [address] [place] [address] Dr. Talia Pascual%6.0 %Normal1.7-12.0The [facility] CenterComment on above: Performed By: #### LILIAM #### [facility] [address] [place] [address] Dr. Talia JonV10.9 fLNormal9.5-13.5The [facility] CenterComment on above: Performed By: #### LILIAM #### [facility] [address] [place] [address] Dr. Talia Medina #NormalPremier Health Miami Valley Hospital SouthComment on above:Performed By: #### LILIAM #### [facility] [address] [place] [address] Dr. Talia CrossOCYTE %NormalPremier Health Miami Valley Hospital SouthComment on above:Performed By: #### LILIAM #### [facility] [address] [place] [address] Dr. Talia PlascenciaNRBCNormalThe [facility] CenterComment on above:Performed By: #### LILIAM #### [facility] [address] [address] [address] Talia PlascenciaPLT177 103/vySdmgno990-824Nkq [facility] CenterComment on above: Performed By: #### LILIAM #### [facility] [address] [place] [address] Dr. Talia PlascenicaRBC5.90 106/ulNormal4.70-6.10The [facility] CenterComment on above:Performed By: #### LILIAM #### [facility] [address] [place] [address] Dr. Talia PlascenciaRDW14.6 %Sqfanj54.0-15.0The [facility] CenterComment on above: Performed By: #### LILIAM #### [facility] [address] [place] [address] Dr. Talia Alejandro #15.27 103/ulCritically high1.40-6.50[facility] Comment on above:Performed By: #### LILIAM #### [facility] [address] [place] [address] Dr. Talia Alejandro %92.0 %Critically high43.0-75.0The [facility] CenterComment on above:Performed By: #### LILIAM #### [facility] [address] [place] [address] Dr. Talia PlascenciaWBC16.6 103/ulCritically high4.0-11.0The [facility] CenterComment on above:Performed By: #### LILIAM #### [facility] [address] [place] [address] Dr. Talia Torres BLOODon 34-26-3345Tuibehdzkgt examination of blood, cultureCulture Observations: NO GROWTH AT 5 DAYS.NormalThe [facility] CenterComment on above:Performed By: #### CVDTB #### [facility] [address] [place] [address] Dr. Talia Banksd-19 PCR (CVDTB)on 23-67-3814QLOR-CoV-2 (COVID-19) RNA REKHA+probe Ql (Unsp spec)Not detectedNormalNOT DETECTEDThe [facility] Comment on above:Result Comment: When diagnostic testing [...] for this test is supported by the [place] of Health and Human Service's declaration that [...] longer be used).Performed By: #### CBCMAN #### [facility] [address] [place] [address] Dr. Talia PlascenciaLACTATE/LACTIC ACIDon 72-06-1352Yjifxqn [Moles/Vol]1.2 mmol/L Normal0.4-1.9[facility] SouthComment on above:Performed By: #### INFLUAB #### [facility] [address] [place] [address] Dr. Talia PlascenciaPerformed By: #### POCGLUC #### [facility] [address] [place] [address] Dr. Talia Franco VENOUS BLOODon 85-88-9160IUC2 QJNSJH05.1 mmHgCritically low 40.0-52.0The [facility] CenterComment on above:Performed By: #### POCGLUC #### [facility] [address] [place] [address] Dr. Talia Franco VENOUS7.960Rulgfo3.330-7.430The [facility] CenterComment on above:Performed By: #### POCGLUC #### [facility] [address] [place] [address] Dr. Talia PlascenciaPOINT OF CARE GLUCOSEon 69-48-8333Qvgsupl [Mass/Vol]154 mg/dL Critically gqms92-106Qyd [facility] CenterComment on above:Performed By: #### POCGLUC #### [facility] [address] [address] [address] Talia Ramirez 14(COMP METB)on 65-90-9141Zzgzvil [Mass/Vol]3.7 g/dLNormal 3.4-5.0The [facility] CenterComment on above:Performed By: #### CBCMAN #### [facility] [address] [address] [address] Talia PlascenciaAlbumin/Globulin [Mass ratio]0.9 {ratio}NormalThe [facility] CenterComment on above:Performed By: #### CBCMAN #### [facility] [address] [place] [address] Dr. Talia BenitezP [Catalytic activity/Vol]72 U/ZQbmxql96-093Iuf [facility] CenterComment on above:Performed By: #### CBCMAN #### [facility] [address] [place] [address] Dr. Talia Cody [Catalytic activity/Vol]20 U/KWwkcgn77-46Rlj [facility] CenterComment on above:Performed By: #### CBCMAN #### [facility] [address] [place] [address] Dr. Talia Pérez gap [Moles/Vol]16.0 mmol/LNormalThe [facility] on above:Performed By: #### CBCMAN #### [facility] [address] [place] [address] Dr. Talia PlascenciaAST [Catalytic activity/Vol]29 U/HSpzzfp92-59Ucg [facility] CenterComment on above:Performed By: #### CBCMAN #### [facility] [address] [address] [address] Talia PlascenciaBilirubin [Mass/Vol]1.5 mg/dLCritically high0.2-1.0The [facility] CenterComment on above:Performed By: #### CBCMAN #### [facility] [address] [place] [address] Dr. Talia PlascenciaCalcium [Mass/Vol]8.7 mg/dLNormal8.5-10.1The [facility] Comment on above:Performed By: #### CBCANALI #### [facility] [address] [address] [address] Talia PlascenciaChloride [Moles/Vol]93 mmol/LCritically msh15-889Qyn [facility] CenterComment on above:Performed By: #### CBCANALI #### [facility] [address] [address] [address] Talia PlascenciaCO2 [Moles/Vol]21.4 mmol/ENowgbq02.0-32.0The [facility] Comment on above:Performed By: #### LILIAM #### [facility] [address] [place] [address] Dr. Talia PlascenciaCreatinine [Mass/Vol]1.61 mg/dLCritically high0.70-1.30The [facility] CenterComment on above:Performed By: #### LILIAM #### [facility] [address] [place] [address] Dr. Talia SchwabGFR-AF PYBSDBNB68 mL/min/1.98k6Jxdnaxoeyc low>=60The [facility] CenterComment on above:Performed By: #### LILIAM #### [facility] [address] [place] [address] Dr. Talia SchwabGFR-NON AF AANFXCQC16 mL/min/1.11e2Pclwekdaan low>=60The [facility] CenterComment on above:Performed By: #### CBCANALI #### [facility] [address] [place] [address] Dr. Talia PlascenciaGlobulin (S) [Mass/Vol]3.9 g/dLNormalThe [facility] CenterComment on above:Performed By: #### CBCANALI #### [facility] [address] [place] [address] Dr. Talia PlascenciaGlucose [Mass/Vol]182 mg/dLCritically xvis46-168Pkx [facility] CenterComment on above:Performed By: #### CBCANALI #### [facility] [address] [place] [address] Dr. Talia PlascenciaPotassium [Moles/Vol]4.4 mmol/LNormal3.5-5.1The [facility] Comment on above:Performed By: #### LILIAM #### [facility] [address] [address] [address] Talia PlascenciaProtein [Mass/Vol]7.6 g/dLNormal6.4-8.2The [facility] Comment on above:Performed By: #### LILIAM #### [facility] [address] [place] [address] Dr. Talia PlascenciaSodium [Moles/Vol]126 mmol/LCritically hau943-770Xww [facility] CenterComment on above:Performed By: #### LILIAM #### [facility] [address] [place] [address] Dr. Talia PlascenciaUrea nitrogen [Mass/Vol]30.0 mg/dLCritically high7.0-18.0The [facility] CenterComment on above:Performed By: #### LILIAM #### [facility] [address] [place] [address] Dr. Talia Chambers nitrogen/Creatinine [Mass ratio]18.6 mg/mgNoMercer County Community HospitalComment on above:Performed By: #### LILIAM #### [facility] [address] [place] [address] Dr. Talia PlascenciaPROTIMEcorina 40-00-4542WLK Coag (PPP) [Relative time]1.08 {INR} NormalThe [facility] CenterComment on above:Performed By: #### CVDTBH #### [facility] [address] [place] [address] Dr. Talia Morgan GUIDELINESSEE BELOWMemorial Health System Marietta Memorial HospitalComment on above:Result Comment: DESIRED INR: 2.0 - 3.0 CONDITIONS NOT LISTED BELOW 2.5 - 3.5 FOR PROSTHETIC HEART VALVE REPLACEMENT 2.5 - 3.5 RECURRENT THROMBOSIS Performed By: #### CVDTBH #### [facility] [address] [place] [address] Dr. Talia PlascenciaPT Coag (PPP) [Time]11.6 sNormal9.0-11.6The [facility] Comment on above:Performed By: #### CVDTBH #### [facility] [address] [place] [address] Dr. Talia Plata 19-61-4297kIDW Coag (Bld) [Time]32.2 qRgiubv77.3-36.2The [facility] CenterComment on above:Performed By: #### CVDTBH #### [facility] [address] [place] [address] Dr. Talia Fraser, HIGH SENSITIVITYon 10-26-0172GZEPFN8.1 pg/mLNormal 4.0-76.1The [facility] CenterComment on above:Result Comment: CUT-OFF POINTS HAVE BEEN ESTABLISHED BASED ON THE FOURTH UNIVERSAL DEFINITIONS OF MYOCARDIAL INFARCTION. THE UPPER REFERENCE LIMIT (URL) OF TROPONIN, DEFINED THE 99TH PERCENTILE OF cTnI DISTRIBUTION IN A REFERENCE POPULATION, HAS BEEN CONFIRMED THE DECISION THRESHOLD FOR [place] DIAGNOSIS.Performed By: #### CBCMAN #### [facility] [address] [place] [address] Dr. Talia Fang YOAN DOP LEG RTon 44-32-7111CT YOAN DOP LEG RTEXAM: [place] YOAN DOP [...] thrombosis. Calf edema. Electronically authenticated by: TEVIN ANYAK Date: 2022-04-23 17:00[facility] Memorial HospitalECHOCARDIO M/2D COMPLETEon 86-95-4013LAYHLKQDZV M/2D COMPLETE Patient: JOHNATHAN CORREA Exam Date: 04/15/2022 : 1960 Gender:M Ordering : DR LUIS JEFFREY M.D. Admission #: [id number] Family : Order #: [id number] CLICK HERE TO VIEW EXAM ECHOCARDIOGRAM REPORT [...] by: Zhao Galan M.D. on 04/15/2022 at 19:32[facility] HospitalBNPon 39-32-8343Cfoqhlqilzl peptide B (Bld) [Mass/Vol]43.0 pg/mLNormal <=900.0[facility] on above:Performed By: #### BNP, CMP #### [facility] [address] [address] [address] Talia PlascenciaGLYCOHEMOGLOBIN A1Con 79-08-1384AKI RECOMMENDATIONSEE BELOWNormal [facility] on above:Result Comment: ADA RECOMMENDED LIMIT 4.0 - 6.0 ADA THERAPEUTIC TARGET < 7.0 ACTION SUGGESTED > 7.0Performed By: #### A1C #### [facility] [address] [address] [address] Talia PlascenciaGlucose [Mass/Vol]203 mg/dLNormalThe [facility] CenterComment on above:Performed By: #### A1C #### [facility] [address] [place] [address] Dr. Talia OrnelasA1c (Bld) [Mass fraction]8.7 %Critically high4.5-6.2The [facility] CenterComment on above:Performed By: #### A1C #### [facility] [address] [place] [address] Dr. Talia PlascenciaPROF 14(COMP METB)on 10-48-7040Urbzfpf [Mass/Vol]3.9 g/dLNormal 3.4-5.0The [facility] CenterComment on above:Performed By: #### BNP, CMP #### [facility] [address] [place] [address] Dr. Talia PlascenciaAlbumin/Globulin [Mass ratio]1.1 {ratio}NormalThe [facility] CenterComment on above:Performed By: #### BNP, CMP #### [facility] [address] [place] [address] Dr. Talia Myers [Catalytic activity/Vol]74 U/ZBestfq61-183Hzg [facility] CenterComment on above:Performed By: #### BNP, CMP #### [facility] [address] [place] [address] Dr. Talia Cody [Catalytic activity/Vol]30 U/EAolisb26-83Qvc [facility] CenterComment on above:Performed By: #### BNP, CMP #### [facility] [address] [place] [address] Dr. Talia Pérez gap [Moles/Vol]12.2 mmol/LNormalThe [facility] Comment on above:Performed By: #### BNP, CMP #### [facility] [address] [place] [address] Dr. Talia Mireles [Catalytic activity/Vol]32 U/OXepjvw09-67Qpf [facility] CenterComment on above:Performed By: #### BNP, CMP #### [facility] [address] [place] [address] Dr. Yilan ChangBilirubin [Mass/Vol]0.8 mg/dLNormal0.2-1.0The [facility] Comment on above:Performed By: #### BNP, CMP #### [facility] [address] [address] [address] Talia PlascenciaCalcium [Mass/Vol]8.7 mg/dLNormal8.5-10.1[facility] Comment on above:Performed By: #### BNP, CMP #### [facility] [address] [address] [address] Talia PlascenciaChloride [Moles/Vol]98 mmol/ZParcgq05-201End [facility] Comment on above:Performed By: #### BNP, CMP #### [facility] [address] [place] [address] Dr. Talia PlascenciaCO2 [Moles/Vol]27.5 mmol/HYqgoue24.0-32.0[facility] Comment on above:Performed By: #### BNP, CMP #### [facility] [address] [place] [address] Dr. Talia PlascenciaCreatinine [Mass/Vol]1.33 mg/dLCritically high0.70-1.30The [facility] CenterComment on above:Performed By: #### BNP, CMP #### [facility] [address] [place] [address] Dr. Talia SchwabGFR-AF BOTSWANAN>60Normal>=60The [facility] CenterComment on above:Performed By: #### BNP, CMP #### [facility] [address] [place] [address] Dr. Talia SchwabGFR-NON AF AOLNTKQY60 mL/min/1.09g0Otycsnkqjg low>=60The [facility] CenterComment on above:Performed By: #### BNP, CMP #### [facility] [address] [place] [address] Dr. Talia PlascenciaGlobulin (S) [Mass/Vol]3.6 g/dLNormalThe [facility] CenterComment on above:Performed By: #### BNP, CMP #### [facility] [address] [address] [address] Talia PlascenciaGlucose [Mass/Vol]233 mg/dLCritically eexi21-551Ufj [facility] CenterComment on above:Performed By: #### BNP, CMP #### [facility] [address] [address] [address] Talia PlascenciaPotassium [Moles/Vol]4.7 mmol/LNormal3.5-5.1The [facility] Comment on above:Performed By: #### BNP, CMP #### [facility] [address] [place] [address] Dr. Talia PlascenciaProtein [Mass/Vol]7.5 g/dLNormal6.4-8.2The [facility] Comment on above:Performed By: #### BNP, CMP #### [facility] [address] [address] [address] Talia PlascenciaSodium [Moles/Vol]133 mmol/LCritically amb114-863Huy [facility] CenterComment on above:Performed By: #### BNP, CMP #### [facility] [address] [address] [address] Talia PlascenciaUrea nitrogen [Mass/Vol]22.0 mg/dLCritically high7.0-18.0The [facility] CenterComment on above:Performed By: #### BNP, CMP #### [facility] [address] [place] [address] Dr. Talia PlascenciaUrea nitrogen/Creatinine [Mass ratio]16.5 mg/mgNormalThe [facility] CenterComment on above:Performed By: #### BNP, CMP #### [facility] [address] [place] [address] Dr. Talia Cody (SGPT)on 29-12-1785COI enzyme act/vol15 U/MMedpks49-07VHP HealthcareComment on above:Performed By: #### [id number] ####[facility] [address] [place], [place] [address]RRP (SGOT)on 07-14-2018 AST enzyme act/vol23 U/KOjdikl19-19ASX HealthcareComment on above:Performed By: #### [id number] ####[facility] [address] [facility] [place], [place] [address]Firmyylucdex 68-63-8868Zrmpnubdil mass conc1.07 mg/dLNormal 0.50-1.30EMH HealthcareComment on above:Performed By: #### [id number] ####[facility] [address] [place] [address] GFR/1.73 sq M.predicted MDRD vol rate/areamL/min/{1.73_m2}NormalEMH Healthcare Comment on above:Result Comment: Interpretation for Chronic Kidney Disease:Stages 1&2 >60 Healthy or potential kidney damage.Mild decrease of GFR.Stage 3 30-59 Moderate decrease of GFR.Stage 4 15-29 Severe decrease of GFR.Stage 5 <15 Kidney failure or on dialysis.Performed By: #### [id number] ####[facility] [address] [place] [address] Electrolyte Panelon 10-94-7942Uxjbf gap 3 molar conc10 mmol/JZlctbc19-15VLR HealthcareComment on above:Performed By: #### [id number] ####[facility] [address] [place], [place] [address]Gnkgsbme molar conc99 mmol/JRdkwgv61-397HBW HealthcareComment on above:Performed By: #### [id number] ####[facility] [address] [place] [address] HCO3 molar conc (Bld)32 mmol/UFetbbq96-11IGL HealthcareComment on above: Performed By: #### [id number] ####[facility] [address] [facility] [address]Amdlqoucw molar conc4.5 mmol/LNormal3.5-5.1EMH HealthcareComment on above:Performed By: #### [id number] ####[facility] [address] [place], [place] [address]Sfdffl molar auek070 mmol/OOxnlac790-747TAO HealthcareComment on above:Performed By: #### [id number] ####[facility] [address] [place] [address] Lipid Panelon 19-89-7329Mxwxvpjknpw in HDL mass conc34 mg/dLAbnormalEMH HealthcareComment on above:Result Comment: Normal Mod Risk High Risk5-9 >48 42- 48 <4210-14 >45 40-45 <4015-19 >38 34-38 <34Adult >39Performed By: #### [id number] ####[facility] [address] [place] [address] Cholesterol in LDL mass conc98 mg/dLNormal<130EMH HealthcareComment on above: Performed By: #### [id number] ####[facility] [address] [facility], [place] [address]Wpnmlqhdrnd in VLDL mass conc21 mg/dLNormal<30EMH HealthcareComment on above:Performed By: #### [id number] ####[facility] [address] [facility], [place] [address]Nwjtfiiopxc mass qbtu567 mg/dLNormal<200EMH HealthcareComment on above:Performed By: #### [id number] ####[facility] [address] [place] [address] Cholesterol.total/Cholesterol in HDL mass ratio4.5 {ratio}NormalEMH Healthcare Comment on above:Performed By: #### [id number] ####[facility] [address] [facility], [place] [address]Jngdphofxzbv mass kugp578 mg/dL Normal<150EMH HealthcareComment on above:Result Comment: 150-199 Borderline Dyll107-951 High>500 Very HighPerformed By: #### [id number] ####[facility] [address] [facility] [place], [place] [address]Jvns Nitrogenon 20-43-5464Njim nitrogen mass conc16 mg/dLNormal6-23EMH HealthcareComment on above:Performed By: #### [id number] ####[facility] [address] [place] [address] Vital Signs Date TimeVital SignValuePerforming DsgxujjsmQfvdpysq39-29-1406 14:28-0500Body ccorzc716 cmVinod Proctor INFORMATICS SCIENTIST-VISUAL PRESENTATION MANAGER Work Phone: [phone] [place], [place] 6[address]011-10-2025 14:28-0500 Body mass index (BMI) [Ratio]51.09 kg/q9KjvffVinod Proctor INFORMATICS SCIENTIST-VISUAL PRESENTATION MANAGER Work Phone: [phone]11-10-2025 14:28-0500 Body ulzxrr567.68 kgVinod Proctor INFORMATICS SCIENTIST-VISUAL PRESENTATION MANAGER Work Phone: [phone]11-10-2025 14:28-0500 Diastolic blood jpxtlfbu67 mm[Hg]Vinod Proctor INFORMATICS SCIENTIST-VISUAL PRESENTATION MANAGER Work Phone: [phone]11-10-2025 14:28-0500 Heart rate76 /minDernestina Proctor INFORMATICS SCIENTIST-VISUAL PRESENTATION MANAGER Work Phone: [phone] [place], [place] 6[address]011-10-2025 14:28-0500 Systolic blood fhbvzfaq812 mm[Hg]Vinod Proctor INFORMATICS SCIENTIST-VISUAL PRESENTATION MANAGER Work Phone: [phone]10-28-2025 09:26-0400 Body gxeslc084.45 cmLuis Jeffrey MD Work Phone: [phone]10-28-2025 09:26-0400 Body mass index (BMI) [Ratio]52.6 kg/b0TmxzbjLuis Jeffrey MD Work Phone: [phone]10-28-2025 09:26-0400 Body ylxrcq087.67 kgLuis Jeffrey MD Work Phone: [phone]10-28-2025 09:26-0400 Diastolic blood jgeoyegr84 mm[Hg]Luis Jeffrey MD Work Phone: [phone]10-28-2025 09:26-0400 Heart rate80 /minLuis Jeffrey MD Work Phone: [phone]10-28-2025 09:26-0400 Systolic blood tobjsokr224 mm[Hg]Luis Jeffrey MD Work Phone: [facility]03-17-2025 09:19-0400 Body .45 cmMart[facility]erry [facility]03-17-2025 09:19-0400Body mass index (BMI) [Ratio]49.7 kg/h1LkareyekeMartins Ferry Hospital03-17-2025 09:19-0400Body sxivhb825.17 kgMartins Ferry Hospital03-17-2025 09:19-0400Diastolic blood mm[Hg][facility] 11-20-2024 09:19-0400Heart rate69 /[facility] 11-20-2024 09:19-0400Respiratory rate12 /[facility] 11-20-2024 09:19-3002AcK8% (BldA) [Mass fraction]96 %[facility]03-17-2025 09:19-0400Systolic blood mm[Hg][facility]02-20-2025 09:15-0500Blood Pressure LocationKathy Lue [facility]02-20-2025 09:15-0500Diastolic blood htmbjsug04 mm[Hg]Lety Lue [facility]02-20-2025 09:15-0500Heart rate74 /minKathy Lue [facility]02-20-2025 09:15-0500Systolic blood wxlpepti967 mm[Hg]Lety Lue [facility] [address] [address]-22-2024 11:26-0500Body zqrhpyzxpzx27.7 [degF]Vaibhav Slater MD Work Phone: [facility] Center[facility] Owzdct23-40-0413 11:26-0500Diastolic blood mm[Hg]Vaibhav Slater MD Work Phone: [facility]11-22-2024 11:26-0500Heart rate 76 /Celestina Slater MD Work Phone: [phone])354-[facility]11-22-2024 11:26-0500 Respiratory rate18 /Celestina Slater MD Work Phone: [phone]-[facility]11-22-2024 11:26-1324ZqX5% (BldA) [Mass fraction]94 %Vaibhav Slater MD Work Phone: [facility]11-22-2024 11:26-0500Systolic blood szxxisbo956 mm[Hg]Vaibhav Slater MD Work Phone: [facility]11-20-2024 05:00-0500Body mass index (BMI) [Ratio]49.74 kg/m6FdjlvoaVaibhav Slater MD Work Phone: [phone] [place], [place] [address]11-20-2024 05:00-0500Body kdpusk435.06 kgVaibhav Slater MD Work Phone: [phone]-[facility]11-18-2024 03:20-0500Body phiarp074.2 cmVaibhav Slater MD Work Phone: [facility]11-07-2024 10:59-0500Body lmugta396.2 cmGray Cancino DPM Work Phone: [facility] CareHzhgavchff08-62-2914 10:59-0500Body mass index (BMI) [Ratio]51.69 kg/k5QdzvyzujGray Cancino DPM Work Phone: [address] [address]Eftflvdapp06-04-3186 10:59-0500Body kujzxc894.69 kgGray Cancino DPM Work Phone: [facility] CareSnyriidnzk19-01-5464 10:59-0500Diastolic blood hrznuwnb43 mm[Hg]Gray Cancino DPM Work Phone: [address] [address]Mjjknvaqcp69-56-9184 10:59-0500Heart rate86 /min Gray Cancino DPM Work Phone: [phone] [place] [address]-07-2024 10:59-0500Systolic blood qmxnyuga746 mm[Hg]Gray Cancino DPM Work Phone: [phone] [place], [place] [address]10-31-2024 11:16-0400Body yxvbck282.2 cmGray Cancino DPM Work Phone: [phone] [place], [place] [address]10-31-2024 11:16-0400Body mass index (BMI) [Ratio]51.69 kg/l8NicpdgvrGray Cancino DPM Work Phone: [phone])[address] [place] [address]-31-2024 11:16-0400Body .69 kgGray Cancino DPM Work Phone: [phone])[address] [place] [address]-31-2024 11:16-0400Diastolic blood knqbetrr06 mm[Hg]Gray Cancino DPM Work Phone: [phone])[address] [place] [address]-31-2024 11:16-0400Heart rate82 /min Gray Cancino DPM Work Phone: [phone] [place] [address]-31-2024 11:16-0400Systolic blood mpubhuwz805 mm[Hg]Gray Cancino DPM Work Phone: 1(672)[address] [place], [place] [address]10-24-2024 10:52-0400Body fehfcq504.2 cmGray Cancino DPM Work Phone: [phone])[address] [place] [address]-24-2024 10:52-0400Body mass index (BMI) [Ratio]51.69 kg/h9CdpebclmGray Cancino DPM Work Phone: 1(887)[address] [place] [address]-24-2024 10:52-0400Body pumwva117.69 kgGray Cancino DPM Work Phone: 1(771)[facility] [place] [address]-24-2024 10:52-0400Diastolic blood hxrofhak25 mm[Hg]Gray Cancino DPM Work Phone: 1(544)[address] [place], [place] [address]24-2024 10:52-0400Heart rate88 /min Gray Cancino DPM Work Phone: [facility] CareUluqjealmi51-10-6548 10:52-0400Systolic blood nfkdhodq035 mm[Hg]Gray Cancino DPM Work Phone: [facility] CareYfkhbwgpvh91-52-0502 13:46-0400Body .2 cmGray Cancino DPM Work Phone: [phone] [place], [place] [address]Emvgttbwnp08-55-8416 13:46-0400Body mass index (BMI) [Ratio]51.69 kg/h8Lzcnpguhmartha Cancino DPM Work Phone: [phone])[address]10-10-2024 13:46-0400Body pgnbva726.69 kgGray Cancino DPM Work Phone: [facility] CareOnoickkgzn09-59-1942 13:46-0400Respiratory rate18 /minGray Cancino DPM Work Phone: 1(028)7-[address] [place], [place] [address]Dpreaykxbe61-92-2821 07:52-0400Body .45 cm[facility]10-09-2024 07:52-0400Body mass index (BMI) [Ratio]49.6 kg/a9WysdoxzumMartins Ferry Hospital10-09-2024 07:52-0400Body onuwcq977.77 kgMartins Ferry Hospital10-09-2024 07:52-0400Diastolic blood mm[Hg][facility]10-09-2024 07:52-0400 Heart rate85 /[facility]10-09-2024 07:52-0400 Respiratory rate18 /[facility]10-09-2024 07:52-0400 SaO2% (BldA) [Mass fraction]96 %[facility]10-09-2024 07:52-0400Systolic blood sekugizd419 mm[Hg][facility] 06-08-2024 08:34-0400Body .2 cmJefmartha Cancino DPM Work Phone: [phone] [place], [place] [address]Ajryfbcmwq33-44-0462 08:34-0400Body mass index (BMI) [Ratio]51.69 kg/l7VoqkbkicGray Cancino DPM Work Phone: [phone])947-[address] [place] [address]-03-2024 08:34-0400Body kpicwq347.69 kgGray Cancino DPM Work Phone: [facility] CareZjjqlemhod61-54-2385 08:34-0400Diastolic blood mm[Hg]Gray Cancino DPM Work Phone: 1(024)[facility] [place] [address]-03-2024 08:34-0400Heart rate74 /min Gray Cancino DPM Work Phone: 1(124)[facility] [place] [address]-03-2024 08:34-0400Respiratory rate18 /minGray Cancino DPM Work Phone: 1(221)687-[address] [place] [address]-03-2024 08:34-0400Systolic blood itqbebwu426 mm[Hg]Gray Cancino DPM Work Phone: 1(765)2-[address] [place], [place] [address]Kpayvexgrr31-84-9696 08:44-0400Body mhxpjo568.2 cmGray Cancino DPM Work Phone: 1([phone] [place] [address]-26-2024 08:44-0400Body mass index (BMI) [Ratio]51.69 kg/w2TvygpjqnGray Cancino DPM Work Phone: 1(482)1-[address] [place] [address]-26-2024 08:44-0400Body rmygwo546.69 kgGray Cancino DPM Work Phone: 1(929)[facility] [place] [address]-26-2024 08:44-0400Diastolic blood wlqrfasw00 mm[Hg]Gray Cancino DPM Work Phone: 1(731)017-[address] [place] [address]-26-2024 08:44-0400Heart rate75 /min Gray Cancino DPM Work Phone: 1(238)100-[address] [place], [place] [address]Qfvgogwavp22-11-5927 08:44-0400Respiratory rate18 /minGray Cancino DPM Work Phone: 1(956)001-[address] [place] [address]-26-2024 08:44-0400Systolic blood mm[Hg]Gray Cancino DPM Work Phone: [address] [address]Xjvhjthect20-48-5086 11:05-0400Body .2 cmGray Cancino DPM Work Phone: [address] [address]Qoufgozilu66-06-9166 11:05-0400Body mass index (BMI) [Ratio]51.69 kg/u6HrlcrgbkGray Cancino DPM Work Phone: 1(147)374-[address] [place] [address]-19-2024 11:05-0400Body muangf949.69 kgGray Cancino DPM Work Phone: 1(574)466-[address] [place] [address]-19-2024 11:05-0400Diastolic blood qdrhmiqm33 mm[Hg]Gray Cancino DPM Work Phone: 1(289)828-[address] [place] [address]-19-2024 11:05-0400Heart rate75 /min Gray Cancino DPM Work Phone: 1(612)480-[address] [place] [address]-19-2024 11:05-0400Respiratory rate17 /minGray Brayan DPM Work Phone: 1(925)916-[address] [place] [address]-19-2024 11:05-0400Systolic blood vmexyqbf827 mm[Hg]Gray Cnacino DPM Work Phone: 1(700)371-[address] [place] [address]-12-2024 10:03-0400Body oymukl349.2 cmGray Cancino DPM Work Phone: 1(038)410-[address] [place] [address]-12-2024 10:03-0400Body mass index (BMI) [Ratio]51.69 kg/u3TfjzkxcrGray Cancino DPM Work Phone: 1(470)489-[address] [place] [address]-12-2024 10:03-0400Body zarsgl721.69 kgGray Cancino DPM Work Phone: [address] [address]Hhuvnmdlfk03-54-7441 10:03-0400Diastolic blood mm[Hg]Gray Cancino DPM Work Phone: 1(321)021-[address] [place] [address]-12-2024 10:03-0400Heart rate77 /min Gray Cancino DPM Work Phone: [facility] CareYpdlrieeyh29-85-9464 10:03-0400Systolic blood mm[Hg]Gray Cancino DPM Work Phone: [facility] CareWwddhjlngr52-68-7792 10:16-0400Body krluyv323.2 cmMercedesdonis Cancino DPM Work Phone: 1(084)269-[address] [place], [place] [address]Ojcqwzlzan06-02-2647 10:16-0400Body mass index (BMI) [Ratio]51.69 kg/s4Rcgzestv Brown DPM Work Phone: 1(457)097-[address] [place] [address]-05-2024 10:16-0400Body azvbad781.69 kgMercedesdonis Cancino DPM Work Phone: [address] [address]Dvpmvlpbtk63-20-5041 10:16-0400Diastolic blood ufuzyvvg28 mm[Hg]Gray Brayan DPM Work Phone: 1(946)130-[address] [place] [address]-05-2024 10:16-0400Heart rate78 /min Gray Cancino DPM Work Phone: 1(201)192-[address] [place] [address]-05-2024 10:16-0400Respiratory rate19 /minJefmartha Cancino DPM Work Phone: [address] [address]Yrmebsgrty65-58-6258 10:16-0400Systolic blood sezubadt237 mm[Hg]Gray Brayan DPM Work Phone: 1(662)008-[address] [place], [place] [address]Vfdcpwihdm03-37-3294 10:29-0400Body vxgyqe642.2 cmMercedesdonis Cancino DPM Work Phone: 1(585)729-[address] [place] [address]-29-2024 10:29-0400Body mass index (BMI) [Ratio]51.69 kg/e6Oxnmfhze Brown DPM Work Phone: [facility] CareJoxsfnlgcr15-72-1145 10:29-0400Body gjunkh304.69 kgMercedesdonis Cancino DPM Work Phone: 1(988)348-[address] [place] [address]-29-2024 10:29-0400Diastolic blood hwrauhud21 mm[Hg]Graydena Cancino DPM Work Phone: [facility] CareZredvtwfza14-57-9218 10:29-0400Heart rate85 /min Gray Cancino DPM Work Phone: [facility] CareTdswlswhls01-76-4459 10:29-0400Systolic blood twcinnin224 mm[Hg]Gray Cancino DPM Work Phone: [facility] CareVbdlqkatnv64-22-1022 11:15-0400Body hnqvos919.45 cm[facility]08-26-2024 11:15-0400Body mass index (BMI) [Ratio]51.4 kg/s2LcoodngilMartins Ferry Hospital08-26-2024 11:15-0400Body .07 kgMartins Ferry Hospital08-26-2024 11:15-0400Diastolic blood ybrhzdez49 mm[Hg][facility]08-26-2024 11:15-0400 Heart rate77 /[facility]08-26-2024 11:15-0400 Respiratory rate18 /[facility]08-26-2024 11:15-0400 SaO2% (BldA) [Mass fraction]95 %[facility]08-26-2024 11:15-0400Systolic blood sumwayjc436 mm[Hg][facility] 03-08-2024 08:08-0400Blood Pressure LocationKathy Lue [facility]07-03-2024 08:08-0400Diastolic blood mm[Hg]Lety Lue [facility]07-03-2024 08:08-0400Heart rate70 /minKathy Lue [facility]07-03-2024 08:08-0400Respiratory rate16 /minKathy Lue [facility]07-03-2024 08:08-0400Systolic blood hrizceim085 mm[Hg]Lety Lue [facility]06-19-2024 11:41-0400Body .45 cmMart[facility]erry [facility]06-19-2024 11:41-0400Body mass index (BMI) [Ratio]50.1 kg/r1AkagdxkcwMartins Ferry Hospital06-19-2024 11:41-0400Body kxmymh958.41 [facility]06-19-2024 11:41-0400Diastolic blood aqyrhwug39 mm[Hg] [facility]06-19-2024 11:41-0400Heart rate75 /[facility]06-19-2024 11:41-0400Systolic blood arhvcuaa275 mm[Hg] [facility]03-26-2024 08:52-0400Body vwfema375.45 cm [facility]03-26-2024 08:52-0400Body mass index (BMI) [Ratio]50.1 kg/p2LqodasjvgMartins Ferry Hospital03-26-2024 08:52-0400Body slxdse416.41 [facility]03-26-2024 08:52-0400Diastolic blood dehgiouy63 mm[Hg][facility]03-26-2024 08:52-0400 Heart rate76 /[facility]03-26-2024 08:52-0400Systolic blood puqdnhhc885 mm[Hg][facility]01-10-2024 08:05-0500 Blood Pressure LocationKathy Lue [facility]01-10-2024 08:05-0500Diastolic blood mm[Hg]Lety Lue [facility]01-10-2024 08:05-0500Heart rate75 /minKathy Lue [facility]01-10-2024 08:05-0500Systolic blood behcligw272 mm[Hg]Lety Lue [facility]12-01-2023 09:45-0500Body snhgmo211.45 cmLuis Jeffrey Other [employer] Other [id number] 09:45-0500Body mass index (BMI) [Ratio] 48.51 kg/w2NodkpyLuis Jeffrey Other [facility] Other [id number] 09:45-0500Body ooxsvo333.61 kgLuis Jeffrey Other [facility] Other [id number] 09:45-0500Diastolic blood wsjyqrom08 mm[Hg] Luis Jeffrey Other [facility] Other 12-01-2023 09:45-0500Systolic blood nvzbulqb911 mm[Hg] Luis Jeffrey Other [facility] Other 06-28-2023 09:30-0400Blood Pressure LocationKathy Lue [facility] [place]06-28-2023 09:30-0400Diastolic blood zbsodjhp97 mm[Hg]Lety Lue [facility] [place]06-28-2023 09:30-0400Heart rate74 /minKathy Lue [facility] [place]06-28-2023 09:30-0400Respiratory rate16 /minKathy Lue [facility] [place]06-28-2023 09:30-0400Systolic blood hargacxk641 mm[Hg]Lety Gonzalez [facility] [place]04-18-2023 09:53-0400Body grekvo317.99 cmLuis Jeffrey Work Phone: [phone]-Jyrwm [place] [facility] DO Work Phone: 1(533) 281-725504-18-2023 09:53-0400Body mass index (BMI) [Ratio]46.9 kg/m5VgylhcLuis Jeffrey Work Phone: [phone]-Pgkmz [place] [facility] 250 DO Work Phone: [phone] 366-172404-18-2023 09:53-0400Body surface area Derived from formula2.49 n1AhxpnzLuis Jeffrey Work Phone: [phone]-Uwlsb [place] [facility] 250 DO Work Phone: 1(893) 369-906504-18-2023 09:53-0400Body htnihp735.98 kgLuis Jeffrey Work Phone: [phone]-Xmebl [place] [facility] DO Work Phone: 1(456) 751-158704-18-2023 09:53-0400Diastolic blood xjumzzmg04 mm[Hg] Luis Jeffrey Work Phone: [phone]-Hviou [place] [facility] DO Work Phone: 1(621) 383-434404-18-2023 09:53-0400Heart rate74 /minLuis Jeffrey Work Phone: [phone]-Xzrmx [place] [facility] DO Work Phone: 1([phone]) 640-543004-18-2023 09:53-0400Systolic blood pozhtdpe724 mm[Hg] Luis Jeffrey Work Phone: [phone]-Imubq [place] [facility] 250 DO Work Phone: [phone] 09:45-0400Body wqeiaz887.45 cmLuis Wojciech Other [employer] Other 04-05-2023 09:45-0400Body mass index (BMI) [Ratio] 47.52 kg/g7Mmxreo Wojciech Other [employer] Other 04-05-2023 09:45-0400Body jrlkze483.71 kgLuis Wojciech Other [facility] [employer] Other 04-05-2023 09:45-0400Diastolic blood uooxfqzs99 mm[Hg] Luis Jeffrey Other [employer] Other 04-05-2023 09:45-6118DbB3% (BldA) [Mass fraction]97 % Luis Jeffrey Other [employer] Other 04-05-2023 09:45-0400Systolic blood fukoglfd062 mm[Hg] Luis Jeffrey Other [facility] [facility] [employer] Other 03-22-2023 10:15-0400Blood Pressure LocationKathy Lue [facility] [place]03-22-2023 10:15-0400Diastolic blood mm[Hg]Lety Lue [facility] [place]03-22-2023 10:15-0400Heart rate76 /minKathy Lue [facility] [place]03-22-2023 10:15-0400Respiratory rate16 /minKathy Lue [facility] [place]03-22-2023 10:15-0400Systolic blood jwjvxzej372 mm[Hg]Lety Lue [facility] [place]12-14-2022 07:54-0500Blood Pressure LocationKathy Lue [facility] [place]12-14-2022 07:54-0500Diastolic blood xcyjwbuz90 mm[Hg]Lety Lue [facility] [place]12-14-2022 07:54-0500Heart rate82 /minKathy Lue [facility] [place]12-14-2022 07:54-0500Systolic blood mm[Hg]Lety Lue [facility] Encounters Encounter DateEncounter TypeCare ProviderFacilityStart: 88-65-1553zkzylkjuib Lety Scott LueFacility:[facility]art: 88-23-2951aljprejileMcnsf M. 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 LueFacility: BellueStart: 07-11-2025 End: 48-85-5587Ybbealc encounter procedureLety Gonzalez [facility] [place] start: 07-03-2025 End: 53-73-9219lgllwqiobdWcuola E Braun MD Work Phone: -[facility] Campustart: 07-03-2025 End: 18-87-8055Cgyypcr encounter procedureLuis Jeffrey [place] Work Phone: Start: 06-27-2025 End: 20-14-3118knvebrdqilRtpmh M. LueFacility:EU evueStart: 06-27-2025 End: 53-34-4753Bzsxljj encounter procedureKatchandan Gonzalez [facility] [place] start: 06-13-2025 End: 37-80-3209hxggzyqqabDwkud M. LueFacility:EU evueStart: 06-13-2025 End: 60-42-4026Ihainer encounter procedureKatchandan Gonzalez [facility] [place] start: 05-30-2025 End: 41-52-4657cwoahevpivZgvuk M. LueFacility:EU evueStart: 05-30-2025 End: 27-69-3926Wpyysdx encounter procedureKatchandan JonhAbhinav Vitalreddy [facility] [place] start: 05-16-2025 End: 09-46-3137aihirtjukeTnnltgk R WATERSFacility:EU evueStart: 05-16-2025 End: 84-73-9908Hgzrpta encounter procedureGurwinder SILVEIRA [facility] [place] start: 05-02-2025 End: 16-22-2163fxraotderrPvncj M. LueFacility:EU BellevueStart: 05-02-2025 End: 15-16-2665Imlmiej encounter procedureSammiechandan Gonzalez [facility] start: 04-25-2025 End: 87-63-7315qnyzfjmlouRbbfc M. LueFacility:FTMCStart: 04-25-2025 End: 90-23-5012Ntgswlr encounter procedureLety Gonzalez [facility] [place] [facility] start: 04-18-2025 End: 67-37-6551dnftljjdmaBbrqn M. LueFacility:EU BellevueStart: 04-18-2025 End: 43-76-9189Csosgns encounter procedureSammiechandan Gonzalez [facility] [place] [facility] start: 04-04-2025 End: 98-94-9375gidayvroiiDpdsd M. LueFacility:EU BellevueStart: 04-04-2025 End: 36-30-9351Vfmpnwp encounter procedureLety Gonzalez [facility] [place] [facility] start: 03-21-2025 End: 02-77-4164dikjpjhooaKowih M. LueFacility:EU BellevueStart: 03-21-2025 End: 85-24-7796Frfczhw encounter procedureSammiechandan BorjaAbhinav Carlos [facility] [place] [facility] start: 03-07-2025 End: 70-12-0177vzbihstgvxMetqp M. LueFacility:EU BellevueStart: 03-07-2025 End: 95-45-5303Pfskllc encounter procedureSammiechandan Gonzalez [facility] [place] [facility] start: 02-21-2025 End: 00-52-1675qiecjydwhcKygbd M. LueFacility:EU BellevueStart: 02-21-2025 End: 85-32-9109Lsefcuy encounter procedureLety Gonzalez [facility] [place] [facility] start: 02-14-2025 End: 98-95-8379fdswbvvujsYhaccf TannaFacility:EU BellevueStart: 02-14-2025 End: 36-24-4121Ulimtvn encounter procedureDo Whalen [facility] [place] [facility] start: 01-31-2025 End: 97-73-8815zmzknuhhfaAgjtwl TannaFacility:EU BellevueStart: 01-31-2025 End: 20-33-8753Pnjppir encounter procedureDo Whalen [facility] [place] [facility] start: 01-17-2025 End: 58-22-9737jurgyjsbdhWnwuvg TannaFacility:EU BellevueStart: 01-17-2025 End: 84-30-2165Kcgfxwl encounter procedureLalima Whalen [facility] [place] start: 01-03-2025 End: 29-64-4151wgikblzggdVcpict TannaFacility:EU BellevueStart: 12-21-2024 End: 56-43-9928wrisculqevJzsxq M. LueFacility:EU NorwalkStart: 12-20-2024 End: 04-55-9851fdmsnxemakPlnzx M. LueFacility:EU BellevueStart: 12-06-2024 End: 44-24-1843mvyzwhwupuKegzdf TannaFacility:EU BellevueStart: 11-22-2024 End: 99-17-6027gmjwrrcnykQsvuc M. LueFacility:EU BellevueStart: 11-20-2024 End: 03-96-2160zvvcsighmyHmdecgflpProMedica [facility]ostoria [facility] Work Phone: Start: 11-20-2024 End: 50-74-7600Fntbbjh encounter procedureAtrium Health [facility] Physician GroupFayette [facility] Work Phone: Start: 11-08-2024 End: 20-14-6277zxozuoosdiWjfbg M. LueFacility:EU BellevueStart: 11-08-2024 End: 42-69-2729Chuwzjq encounter procedureLety Gonzalez [facility] start: 10-27-2024 End: 55-86-3732wdprixaukoJhscy M. LueFacility:EU [place]kyStart: 10-27-2024 End: 77-00-7663Gvpshrr encounter procedureKatchandan Vitale [facility] Start: 10-26-2024 End: 11-72-1253ixqadpiwyyXqtkk M. LueFacility:EU NorwalkStart: 10-26-2024 End: 54-13-2768Komfnfy encounter procedureKathy Jonh. Zahraae [facility] Start: 10-18-2024 End: 61-94-1006iprdzkfszpAmfyz M. LueFacility:FTMCStart: 10-18-2024 End: 71-93-9341Dsx Drop offLety Borja. Zahraae [facility] Start: 10-18-2024 End: 64-47-3924dspphpafldBbaxj M. LueFacility:EU BellevueStart: 10-18-2024 End: 33-96-8170Fjjentz encounter procedureKatchandan Vitale [facility] [place] start: 10-11-2024 End: 83-24-4136zsosralcfgTqyvq M. LueFacility:EU BellevueStart: 10-11-2024 End: 11-02-9804Ojghzhp encounter procedureKatchandan Vitale [facility] [place] start: 09-20-2024 End: 80-35-8856rmrkrrcwpbBdocd M. LueFacility:EU BellevueStart: 09-20-2024 End: 96-16-3688Ndhziwq encounter procedureKathy Tyler Lue [facility] [place] start: 09-13-2024 End: 25-99-0603Nvt Drop offLety Borja. Zahraae [facility] Start: 09-13-2024 End: 37-92-8803gnwsdlumyeEmack M. LueFacility:FTMCStart: 09-13-2024 End: 52-50-1785Wglfggg encounter procedureKathy M. Lue [facility] [place] start: 09-07-2024 End: 98-74-9343biyegkqovqKwmxy M. LueFacility:EU BellevueStart: 09-07-2024 End: 86-49-8495Gctcwrn encounter procedureKathy M. Lue [facility] [place] start: 08-23-2024 End: 40-75-7550ulghuzdglgKjkkv JonhAbhinav LueFacility:EU BellevueStart: 08-23-2024 End: 73-85-8806Iorfzjn encounter procedureLety JonhAbhinav Vitalreddy [facility] [place] start: 18-84-9861fygdajipmkLpsdp JonhAbhinav LueFacility:EU BellevueStart: 15-75-2239dutdrchrkvFdgti M. LueFacility:EU TrihealthueStart: 59-56-2891hrtajfrixwZVRWHHNaval Hospital Bremerton Ambulatory PPGStart: 07-24-2024 End: 01-04-2459Yqxowxene encounterSharon [facility] Call CenterComment on above:Consult (Small bowel obstruction)Start: 07-24-2024 End: 61-08-3886Hwbzagqvhv and management of inpatientSiris Rodriguez MD Work Phone: [facility] - CARD Tele/IntermediateComment on above:JAM (obstructive sleep apnea) (Primary Dx); Small bowel obstruction (CMS-HCC); Primary hypertensionStart: 33-49-2325olgwgpylzeLFKGQANaval Hospital Bremerton Ambulatory PPGStart: 08-86-2720opdzhjrkfsOSFKNMNaval Hospital Bremerton Ambulatory PPGStart: 07-13-2024 End: 39-09-8798Dkaddz Pako Cancino DPM Work Phone: noMS CI PODIATRYStart: 07-13-2024 End: 20-26-0761Bqzpnq Pako Cancino DPM Work Phone: noms CI PODIATRYStart: 07-13-2024 End: 71-96-5865Agimpd follow up visit related to original pxNicholas A Brown DPM Work Phone: noms CI PODIATRYComment on above:Diabetes 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 polyneuropathy, unspecified whether fpc insulin use (CMS/HCC) (Primary Dx); Foot ulcer, right, with fat layer exposed (CMS/HCC); Foot ulcer, left, with fat layer exposed (CMS/HCC)Start: 07-13-2024 End: 52-09-9637nxilozdxvdXYRQOMJL A BROWNNot AvailableStart: 07-12-2024 End: 09-94-3715wxdsardoyjGgatx M. LueFacility:EU BellevueStart: 07-12-2024 End: 33-73-8879Lnliujt encounter Christopher Gonzalez [facility] [place] start: 07-06-2024 End: 74-79-6753Sydrfm flowsheetNicholas A Brown DPM Work Phone: noms CI PODIATRYStart: 07-06-2024 End: 11-63-9032Vbnuax flowsheetNicholas A Brown DPM Work Phone: noms CI PODIATRYStart: 07-06-2024 End: 39-36-9385Quwsosu encounter procedureNicholas A Brown DPM Work Phone: noms CI PODIATRYComment on above:Diabetes 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 polyneuropathy, unspecified whether fpc insulin use (CMS/HCC) (Primary Dx); Foot ulcer, right, with fat layer exposed (CMS/HCC)Start: 07-06-2024 End: 87-95-9297kmlchbflegXMGTEGSM A BROWNNot AvailableStart: 06-29-2024 End: 63-18-5212Mfprin flowsheetNicholas A Brown DPM Work Phone: noMS CI PODIATRYStart: 06-29-2024 End: 56-69-4768Dpmzrb flowsheetNicholas A Brown DPM Work Phone: NOMS CI PODIATRYStart: 06-29-2024 End: 76-70-0956Cgkdbsb encounter Nash Cancnio DPM Work Phone: noms CI PODIATRYComment on above:Diabetes 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 polyneuropathy, unspecified whether fpc insulin use (CMS/HCC) (Primary Dx); Foot ulcer, right, with fat layer exposed (CMS/HCC)Start: 06-29-2024 End: 84-33-0976yvfalthcfdHEWTLHQO A BROWNNot AvailableStart: 06-28-2024 End: 27-14-0381rxotgjdoedBbthu M. 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 (CMS/HCC) (Primary Dx); Foot ulcer, right, with fat layer exposed (CMS/HCC); Foot ulcer, left, with fat layer exposed (CMS/HCC); PVD (peripheral vascular disease) (CMS/HCC)Start: 06-15-2024 End: 72-21-0903zghuvkevpvZKRZFCKI A BROWNNot AvailableStart: 06-14-2024 End: 64-61-8958fqbflxfeweXymdw [facility] Work Phone: Start: 06-14-2024 End: 90-65-4556Ivlrsbv encounter procedureAtrium Health [facility]-[place] Work Phone: Start: 06-08-2024 End: 36-99-9631Dmbcou flowsandersonNicmartha A Brown DPM Work Phone: noms CI PODIATRYStart: 06-08-2024 End: 34-71-8340Hytvdg flowsheetNicholas A Brown DPM Work Phone: noms CI PODIATRYStart: 06-08-2024 End: 03-20-1070Xlsabl outpatient visit 15 minutesNicmartha Blankenship Brown DPM Work Phone: noms CI PODIATRYComment on above:Foot ulcer, left, with fat layer exposed (CMS/HCC) (Primary Dx); Diabetes 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 polyneuropathy, unspecified whether fpc insulin use (CMS/HCC); Foot ulcer, right, with fat layer exposed (CMS/HCC)Start: 06-08-2024 End: 93-80-5646jakwogkkvqXIADQKOD Krzysztof BROWNNot AvailableStart: 06-01-2024 End: 65-39-2328Crtsur flowsheetNicholas A Brown DPM Work Phone: noms CI PODIATRYStart: 06-01-2024 End: 47-13-5918Vmhhlw flowsheetNicholas A Brown DPM Work Phone: noms CI PODIATRYStart: 06-01-2024 End: 44-56-7535Hwqzmi outpatient visit 10 minutesNicholdonis Blankenship Brown DPM Work Phone: noms CI PODIATRYComment on above:Diabetes 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 polyneuropathy, unspecified whether fpc insulin use (CMS/HCC) (Primary Dx); Foot ulcer, right, with fat layer exposed (CMS/HCC); PVD (peripheral vascular disease) (CMS/HCC); Xerosis cutisStart: 06-01-2024 End: 47-63-1491gktwegzsznIJOBUHPZ A BROWNNot AvailableStart: 05-31-2024 End: 87-68-9427cqsrspwdjhZfpro M. LueFacility:EU BellevueStart: 05-31-2024 End: 00-03-8098Ojjuxuh encounter Christopher Gonzalez [facility] start: 05-25-2024 End: 83-29-7898Bqjipn flowsheetGray Cancino DPM Work Phone: noms CI PODIATRYStart: 05-25-2024 End: 18-42-5758Edqkdn flowsheetNicmartha Cancino DPM Work Phone: noms CI PODIATRYStart: 05-25-2024 End: 82-50-7175Gavpikp encounter procedureGray Cancino DPM Work Phone: noms CI PODIATRYComment on above:Diabetes 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 polyneuropathy, unspecified whether fpc insulin use ([facility]/HCC) (Primary Dx); Foot ulcer, right, with fat layer exposed ([facility]); PVD (peripheral vascular disease) ([facility])Start: 05-25-2024 End: 41-17-6952zhcybznulgQKLJEGMC A BROWNNot AvailableStart: 05-18-2024 End: 95-25-3035Lwadlf outpatient visit 15 minutesNicmartha Cancino DPM Work Phone: noms CI PODIATRYComment on above:Xerosis cutis (Primary Dx); Skin fissure; Diabetes 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 polyneuropathy, 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 ([facility]/HCC); Foot ulcer, right, with fat layer exposed (CMS/HCC); PVD (peripheral vascular disease) ([facility]/HCC)Start: 05-18-2024 End: 60-04-0755kcbhikdfqyRVZLNVBI A BROWNNot AvailableStart: 05-17-2024 End: 93-77-4791sbwmftbnxtDrxpv M. LueFacility:EU BellevueStart: 05-17-2024 End: 52-33-5627Orwxodo encounter procedureLety Gonzalez [facility] start: 05-11-2024 End: 55-87-5456Jkyeoc outpatient visit 15 minutesNicmartha A Brown DPM Work Phone: noms CI PODIATRYComment on above:Xerosis cutis (Primary Dx); Skin fissure; PVD (peripheral vascular disease) (CMS/HCC); Diabetes 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 polyneuropathy, 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 (CMS/HCC); Foot ulcer, right, with fat layer exposed (CMS/HCC)Start: 05-11-2024 End: 97-64-6185hzlnxjqfswIORPRNEZ A BROWNNot AvailableStart: 05-04-2024 End: 01-28-9064Wrmvmr flowsheetNicholas A Brown DPM Work Phone: noms CI PODIATRYStart: 05-04-2024 End: 72-58-3280Xjntkn flowsheetNicholas A Brown DPM Work Phone: noms CI PODIATRYStart: 05-04-2024 End: 63-22-9087Pudunh outpatient new 30 minutesNicholas A Brown DPM Work Phone: noms CI PODIATRYComment on above:Foot ulcer, right, with fat layer exposed ([facility]/HCC) (Primary Dx); Xerosis cutis; Skin fissure; Diabetes 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 polyneuropathy, unspecified whether fpc insulin use (CMS/HCC); PVD (peripheral vascular disease) (CMS/HCC)Start: 05-04-2024 End: 52-37-7056wllcqgjjwrBATGLNPN A BROWNNot AvailableStart: 05-02-2024 End: 20-63-6874rdhfmkvlknVrvkl M. LueFacility:PAO BellevueStart: 05-02-2024 End: 71-55-8089Rlaawed encounter procedureLety Gonzalez [facility] [place] start: 05-01-2024 End: 27-55-1355xghcwtipwiInfcjvbxdProMedica [facility]ostoria Community Hospital Work Phone: Start: 05-01-2024 End: 15-98-7649Qfwugsx encounter procedureAt[facility] Work Phone: Start: 04-19-2024 End: 58-27-2021bzikfwnhngCkivo M. LueFacility:EU BellevueStart: 04-19-2024 End: 32-32-0755Atfkujg encounter procedureLety Gonzalez [facility] [place] start: 04-17-2024 End: 75-58-4781owmjskkqnoPhqianocfLima Memorial Hospital Work Phone: Start: 04-17-2024 End: 88-22-4281Miszntm encounter procedureAtrium Health [facility] Vascular Surgery Work Phone: Start: 04-05-2024 End: 14-68-9772yrgamgqeqxRkeoo M. LueFacility:EU BellevueStart: 04-05-2024 End: 76-47-4797Lfscwck encounter procedureLety Gonzalez [facility] [place] start: 03-22-2024 End: 46-46-5934mszmgtjjeyIrqld Jonh. LueFacility:EU BellevueStart: 03-22-2024 End: 41-55-1419Mlgrwoe encounter procedureKatchandan Vitale [facility] [place] start: 03-08-2024 End: 38-91-7087dlusclrzstZzbjo Jonh. LueFacility:EU BellevueStart: 03-08-2024 End: 06-45-5232Vmprlyq encounter procedureLety Gonzalez [facility] [place] start: 03-01-2024 End: 65-34-6932Nau Drop offLUIS JEFFREY [facility] Start: 36-34-8347Gee-patient / Non-visitAtrium Health [facility] Physician GroupJama[facility] Work Phone: Start: 03-01-2024 End: 79-61-5503Lwy Drop offLety Gonzalez [facility] Start: 03-01-2024 End: 35-65-6115ebrkfzftddJLYFFB BRAUNFacility:FTMCStart: 03-01-2024 End: 87-39-4361Gmwjkss encounter procedureLety Gonzalez [facility] [place] start: 02-23-2024 End: 57-30-1775zywfunljdgSkivknqoaLima Memorial Hospital Work Phone: Start: 02-23-2024 End: 52-55-0897Jokirvw encounter procedureAtrium Health [facility] Physician GroupF[facility] Work Phone: Start: 02-23-2024 End: 08-48-9312tgaurdqahlLzaal M. LueFacility:EU BellevueStart: 02-23-2024 End: 98-44-4256Rscugcf encounter procedureLety Gonzalez [facility] [place] start: 02-09-2024 End: 14-29-8617ddgdlgzzpvGHParis MARQUEZFacility:EU ueStart: 02-09-2024 End: 27-72-9392Haclrad encounter procedureJENNIFER E JIMMY [facility] [place] [facility] start: 01-25-2024 End: 52-40-5901jmzraonnxfXF-C JEMIMA Blakely PERRYFacility:EU ueStart: 01-25-2024 End: 35-35-1375Hnycwrp encounter procedureJENNIFER E JIMMY [facility] [place] [facility] start: 01-11-2024 End: 19-53-9956fjnjiokjufAE-C JEMIMA Blakely PERRYFacility:EU tart: 01-11-2024 End: 36-94-8937Tmvcses encounter procedureJENNIFER E JIMMY [facility] [place] [facility] start: 12-28-2023 End: 42-78-6323hhvtudmxafXZ-C JEMIMA Blakely PERRYFacility:EU tart: 12-28-2023 End: 80-52-2517Bwyiuev encounter procedureJENNIFER E JIMMY [facility] [place] [facility] start: 12-14-2023 End: 52-80-0602ypygxuiwllPW-C JEMIMA Blakely PERRYFacility:EU ueStart: 12-14-2023 End: 94-30-5568Ostcdnv encounter procedureJENNIFER E JIMMY [facility] CenterdocTrackr start: 89-87-0693Lbi-patient / Non-visitAtrium Health [facility] Physician GroupAstria Regional [facility] Center Professional Co Work Phone: Start: 11-30-2023 End: 40-43-7312oyoqajnuqgCG-C JEMIMA Reddy [facility] Work Phone: Start: 11-30-2023 End: 24-10-2875Pxzyfdw encounter procedureAugustus [facility]ician [facility]-[place] Work Phone: Start: 36-36-5653Sqi-patient / Non-visitEverbon secours [facility] Phys[facility] Professional Co Work Phone: Start: 11-16-2023 End: 25-63-5442glwslyyzcbMcvlr M. LueFacility:EU BellevueStart: 11-16-2023 End: 48-27-7127Dhwigod encounter procedureLety Gonzalez [facility] [place] start: 11-03-2023 End: 14-22-7523gjuckoxscyGhfdr M. LueFacility:EU BellevueStart: 11-03-2023 End: 22-20-0203Fbisvyv encounter procedureLety Gonzalez [facility] [place] start: 10-20-2023 End: 12-90-7251jbnxrgnrtpDcubl M. LueFacility:EU BellevueStart: 10-20-2023 End: 86-60-8274Autilac encounter procedureKatchandan Vitale [facility] [place] start: 09-29-2023 End: 33-41-3675zmwtmescbxYkwhv M. LueFacility:EU BellevueStart: 09-29-2023 End: 22-82-2822Yetjpbw encounter procedureKatchandan Gonzalez [facility] [place] start: 09-15-2023 End: 55-73-5055rxjytmmkgsZppuf Jonh. LueFacility:EU BellevueStart: 09-15-2023 End: 12-60-5416Gdqvvpf encounter procedureKathy Jonh. Lureddy [facility] start: 09-08-2023 End: 23-42-3298Lyn Drop offKatchandan Borja. aCrlos [facility] Start: 09-08-2023 End: 91-18-9304kkiewhwdlgVjkjy M. LueFacility:FTMCStart: 09-08-2023 End: 59-24-4691Yfzgxrs encounter procedureKatchandan Borja. Carlos [facility] start: 09-01-2023 End: 44-40-7851jamqqzsfdgUkoqc M. LueFacility:EU ueStart: 09-01-2023 End: 92-51-7073Hicjpfy encounter procedureKatchandan Borja. Lureddy [facility] start: 08-26-2023 End: 04-00-3361kxwoanepegPbjzpp Braun Other [facility] Other Start: 78-05-6848Jfxefphqm encounterLuis Jeffrey [facility] ClinicStart: 08-09-2023 End: 14-61-1210vyzxnfzfniHsaely Braun Other [facility] [employer] Other Start: 21-50-9522Hbzlajqrf encounterLuis JeffreyC[facility] ClinicStart: 08-06-2023 End: 16-31-4923oclyrlctzxBbdlge Braun Other [facility] [employer] Other Start: 32-87-4709Ttqvwi outpatient visit 25 minutes Luis JeffreyMiguel Angel [facility]: 08-04-2023 End: 14-39-8394drnevdzgprRlgdt M. LueFacility:EU BellevueStart: 08-04-2023 End: 90-28-0545Yzdqxqp encounter procedureKathy M. Lue [facility] start: 07-21-2023 End: 08-39-6489aresrreizyPyaxr M. LueFacility:EU BellevueStart: 07-21-2023 End: 86-95-6892Jolnild encounter procedureKathy M. Lue [facility] start: 07-07-2023 End: 20-35-9760syigtuaojfGrnaw M. LueFacility:EU BellevueStart: 07-07-2023 End: 84-64-2533Onfglvl encounter procedureKathy M. Lue [facility] start: 06-23-2023 End: 63-70-6720vpeuqjpxpqAiyhn M. LueFacility:EU BellevueStart: 06-23-2023 End: 81-81-4342Axfxsiw encounter procedureKathy M. Lue [facility] start: 06-09-2023 End: 07-53-8285xitaftyivfYklfi M. LueFacility:EU BellevueStart: 06-02-2023 End: 80-62-9847ooweaxnwbnImvmv M. LueFacility:EU BellevueStart: 05-26-2023 End: 12-62-4175yifhyifaypXgohl M. LueFacility:EU BellevueStart: 05-26-2023 End: 41-34-4927Wmscich encounter procedureKathy M. Lue [facility] start: 05-12-2023 End: 71-78-3207kpshupcxzeDwlsg M. LueFacility:EU BellevueStart: 05-12-2023 End: 48-09-3533Aoorsuj encounter procedureKathy M. Lue [facility] start: 04-28-2023 End: 21-85-8685spwkqrxovpEzfyy M. LueFacility:EU BellevueStart: 04-28-2023 End: 09-68-1735Flvuekm encounter procedureKathy Jonh. Lue [facility] start: 04-14-2023 End: 65-64-6179ktpiyxrdmhFqgak M. LueFacility:EU BellevueStart: 04-14-2023 End: 81-95-5023Dnchrea encounter procedureKathy Jonh. Lue [facility] start: 03-31-2023 End: 91-00-6451yhsjduzbqjUtcbg M. LueFacility:EU BellevueStart: 03-31-2023 End: 92-17-5420Xgoxyyu encounter procedureKathy M. Lue [facility] start: 03-29-2023 End: 32-88-6666ektaplirjwVndonq Braun Other [facility] [employer] Other Start: 32-44-8252Uuyzywtej encounterMarcia Yaz [facility] ClinicStart: 44-44-3169Cmnsbbirl encounterMarcia Yaz [facility] ClinicStart: 03-17-2023 End: 14-30-0248phfjqvxvotHmzvu M. ZahraaAshwinhca [facility] Other Start: 03-17-2023 End: 36-82-2553Upspiib encounter procedureKatchandan Gonzalez [facility] start: 03-03-2023 End: 25-76-0832Etodmxe encounter procedureKatchandan Gonzalez [facility] start: 02-24-2023 End: 20-24-1174Xeo Drop offLety Borja. Carlos [facility] Start: 02-24-2023 End: 24-59-3332Xycluxn encounter procedureLety Gonzalez [facility] start: 02-22-2023 End: 42-78-2762vsfeflslhrJpnnfn Wojciech Other [facility] [employer] Other Start: 38-31-7109Rrruiytrx encounterMarkathleena Yaz [facility] ClinicStart: 02-17-2023 End: 88-52-2979Sawcmsd encounter procedureJENNIFER E JIMMY [facility] start: 02-03-2023 End: 81-92-2039Nyxbnly encounter procedureJENNSHABNAM MARQUEZ [facility] start: 01-07-2023 End: 33-16-1330rirneaklqcNpnklu Braun Other [facility] [employer] Other Start: 03-94-7758Ceobxavez encounterLuis Mukherjee [facility] ClinicStart: 01-06-2023 End: 66-95-3564Zjabjas encounter procedureLety Gonzalez [facility] start: 12-23-2022 End: 57-96-3819Vfdymxe encounter procedureLety Gonzalez [facility] start: 64-39-2385Vawvfe outpatient visit 15 minutes Luis Jeffrey Work Phone: [phone]-VxwrtCass Lake Hospital 250 DO Work Phone: Start: 93-13-3747yxiaqdorvxUlsaeke [place] Facility:[id number]: 12-17-2022 End: 86-08-9603effuwtxsbhRY LUIS JEFFREYFacility:P4Tzmdx: 12-09-2022 End: 61-88-5634wlcmvacdpjDnjefi Braun Other [facility] [employer] Other Start: 45-39-6380Siuyvc outpatient visit 15 minutes Luis Mukherjee [facility] ClinicStart: 12-09-2022 End: 84-60-3785Rdmzszz encounter procedureLety Gonzalez [facility] start: 11-25-2022 End: 79-14-3601Ovbkttl encounter procedureKatchandan Gonzalez [facility] start: 11-20-2022 End: 34-62-9092Euw Drop offGurwinder SILVEIRA [facility] Start: 11-20-2022 End: 74-09-4828Wevdshs encounter procedureKatchandan Gonzalez [facility] start: 11-18-2022 End: 01-62-4632Put Drop offLety Gonzalez [facility] Start: 11-18-2022 End: 54-41-5641Kuxvhup encounter procedureKatchandan Gonzalez [facility] start: 11-11-2022 End: 91-68-4991Mzynxvs encounter procedureLety Gonzalez [facility] start: 10-28-2022 End: 96-87-9317Ywovckl encounter procedureJENNIFER E JIMMY [facility] start: 34-66-7394mzfgsmphtuDpxkkgb [place] Facility:[id number]: 10-13-2022 End: 97-50-3765Uaqtedd encounter procedureJENNIFER E JIMMY [facility] start: 09-29-2022 End: 76-14-4997Shcqvub encounter procedureJECATINA MARQUEZ [facility] start: 09-16-2022 End: 08-48-6141Gxnbeyn encounter procedureLety JonhAbhinav Carlos [facility] start: 09-09-2022 End: 85-78-7191Dllfwsl encounter procedureLety JonhAbhinav Zahraareddy [facility] start: 09-02-2022 End: 77-27-0880Ebnotxx encounter procedureLety Scott Carlos [facility] start: 08-19-2022 End: 65-31-2780Xcwoiel encounter procedureLety Scott Carlos [facility] start: 31-58-2634Qz Derrelljoe Deluca DO Work Phone: [phone]-BadnoCass Lake Hospital 250 DO Work Phone: Start: 08-04-2022 End: 16-02-2860osahffztcfAK SURJIT MARKER .Facility:C2Wkygb: 13-38-2992Qgqqn health examinationMarcorwin Jeffrey Other [facility] [employer] Other Start: 56-33-3991Yfjoigb, abnormal examinationMarcikrzysztof Jeffrey Other [facility] [employer] Other Start: 07-29-2022 End: 69-24-2179pqsqhowbcySW LUIS JEFFREYFacility:K6Awqsp: 07-08-2022 End: 66-24-2158Snnupuu encounter procedureJENNIFER E JIMMY [facility] start: 22-24-7488Zp RenewalWidouglas Yosi DO Work Phone: [phone]-Vgdnj [facility] 250 DO Work Phone: Start: 06-10-2022 End: 71-70-1643Muppfys encounter procedureLety Gonzalez [facility] start: 32-14-8783Zf RenewalGabino Yosi DO Work Phone: [phone]-Xrxub [facility] 250 DO Work Phone: Start: 05-13-2022 End: 68-97-6412votioijaewLX MARCIA E BRAUNFacility:N2Aemmf: 22-27-8484Qi Renewal Vinod Proctor INFORMATICS SCIENTIST-VISUAL PRESENTATION MANAGER Work Phone: [phone]-Wygxg [facility] 250 DO Work Phone: Start: 04-23-2022 End: 76-58-0193gzdrvlodeeFI CLAY EWING .Facility:P4Blzzd: 04-15-2022 End: 34-10-3442ncnlotvtwjLCDougie JEFFREYFacility:I9Angfk: 03-31-2022 End: 25-21-0140Fcjwioi encounter Andre Proctor Jr. [facility] start: 03-03-2022 End: 73-15-8884Ssxqxfn encounter Andre Proctor Jr. [facility] start: 02-20-2022 End: 46-26-7543hptkshxvbnKK LUIS Reddy WOJCIECHFacility:Q4Iaohb: 02-03-2022 End: 96-60-8426Rjltgny encounter procedureVenkat Proctor Jr. [facility] start: 01-12-2022 End: 24-69-6396owtrmmkkquWTTYK D HIGHLANDERFacility:A6Hazix: 01-06-2022 End: 52-88-3787Eacgidd encounter procedureVenkat Proctor Jr. [facility] start: 12-09-2021 End: 38-05-3201Qqelsow encounter procedureVenkat Proctor Jr. [facility] start: 33-62-9428Hbgsjxy encounter procedurePROVIDER UNKNOWNFacility:1532 Procedures DateProcedureProcedure DetailPerforming ClinicianStart: 53-28-1633Fciq bld gluc mntr dev cleared fda spec home Rosalina Rodriguez MD Work Phone: Start: 07-28-2024 End: 85-44-8873Wmwts of magnesiumSiris Rodriguez MD Work Phone: Start: 13-52-1888Lhfjcxcddmjry metabolic panelEmmett Sauer PA-C Work Phone: Start: 64-77-9212Pngt bld gluc mntr dev cleared fda spec home Rosalina Rodriguez MD Work Phone: Start: 54-45-1364Hufoguxosurfr metabolic panelEmmett Sauer PA-C Work Phone: Start: 20-84-2732Rybm bld gluc mntr dev cleared fda spec home Rosalina Rodriguez MD Work Phone: Start: 93-07-8973Peis bld gluc mntr dev cleared fda spec home useSiris Rodriguez MD Work Phone: Start: 23-12-5219Wthb bld gluc mntr dev cleared fda spec home Rosalina Rodriguez MD Work Phone: Start: 28-45-6685Jefrb of lactateAdrienne Rodriguez MD Work Phone: Start: 53-31-6139Gqmo bld gluc mntr dev cleared fda spec home useSiris Rodriguez MD Work Phone: Start: 96-07-8949Fpebd dip stick/tablet rgnt auto w/o microscopyMadison Niko Mayfield INFORMATICS SCIENTIST-VISUAL PRESENTATION MANAGER Work Phone: Start: 83-34-4923Suss bld gluc mntr dev cleared fda spec home useSiris Rodriguez MD Work Phone: Start: 07-26-2024 End: 54-79-0594Gpthqldlucqpw metabolic panelEmmett SAAVEDRA-Bee Work Phone: Start: 45-23-0952Frwz bld gluc mntr dev cleared fda spec home Rosalina Rodriguez MD Work Phone: Start: 64-70-7660Stldinxlvt exam abdomen 1 Benita Gage MD Work Phone: Start: 07-25-2024 End: 77-18-1228Xdaraaibblctd metabolic panelEmmett SAAVEDRA-Bee Work Phone: Start: 47-15-5336Rpoq bld gluc mntr dev cleared fda spec home Rosalina Rodriguez MD Work Phone: Start: 25-38-9860Dfkvg of magnesiumAdrienne Rodriguez MD Work Phone: Start: 64-82-7863Ywwu bld gluc mntr dev cleared fda spec home useSiris Rodriguez MD Work Phone: Start: 20-84-1794Hqv routine ecg w/least 12 lds trcg only w/o i&rMadison Niko Mayfield INFORMATICS SCIENTIST-VISUAL PRESENTATION MANAGER Work Phone: Start: 78-45-8973Sjolhwkbwo exam abdomen 1 viewAnalisa Ward DO Work Phone: Start: 93-84-6849Fhhh bld gluc mntr dev cleared fda spec home useSiris Rodriguez MD Work Phone: Start: 93-65-6447Pknga metabolic panel calcium total Analisa Ward DO Work Phone: Start: 60-69-6590Flfoxtm function panelAnalsia Ward DO Work Phone: Start: 80-86-7820Qmukydi of percutaneous transluminal coronary angioplastyHistory of PTCADomartia Hitesh INFORMATICS SCIENTIST-VISUAL PRESENTATION MANAGER Work Phone: Start: 98-51-3709Jfzgwnyvf for malignant neoplasm of prostateLuis Jeffrey Other Start: 62-72-5226Tzlremc examination of patientLuis Jeffrey Other Aortic stent (physical object)Lety Carlos ColonoscopyWilliam Yosi DO Work Phone: Depression screeningStepha Jeffrey Other Great toe structure (body structure)Venkat Proctor Jr. History of percutaneous transluminal coronary angioplastyHistory of PTCAWilliam Yosi DO Work Phone: Hyperlipidemia screeningAna Rosacia Jeffrey Other Incision and drainage of cystWilliam Yosi DO Work Phone: Comment on above:of skin abcess hip on the right; Operative procedure on footWilliam Yosi DO Work Phone: TonsillectomyVenkat Proctor JrAbhinav Tonsillectomy and adenoidectomyGabino Deluca DO Work Phone: Plan of Treatment DateCare ActivityDetailAuthorStart: 01-15-2026 End: 08-70-4745Jxrugqr encounter /12/2026 10:30 AM EDT Office Visit [facility] [address] [place] [phone] Gabino Deluca DO [address] [place] [address] [facility]: 90-35-3126BTADA-19 Vaccine ( season)COVID-19 Vaccine ( season)[facility]: 07-52-2782Kosbmfwuw vaccinationInfluenza Vaccine (#1)[facility]: 07-13-2024 End: 22-56-5875Chocnac encounter procedureNOMS CI PODIATRYComment on above: Diabetes 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 polyneuropathy, unspecified whether fpc insulin use (CMS/HCC) (Primary Dx); Foot ulcer, right, with fat layer exposed (CMS/HCC); Foot ulcer, left, with fat layer exposed (CMS/HCC)Start: 07-06-2024 End: 04-10-4455Clbwasc encounter procedureNOMS CI PODIATRYComment on above: Diabetes 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 polyneuropathy, 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 (CMS/HCC) (Primary Dx); Foot ulcer, right, with fat layer exposed (CMS/HCC)Start: 06-29-2024 End: 11-69-7602Ppualsb encounter /24/2024 11:20 AM EDT Office Visit [facility] [address] [place] [address] Gray Cancino DPM [address] [facility] [address] [place] [address] Diabetes 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 polyneuropathy, 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 (CMS/HCC) (Primary Dx); Foot ulcer, right, with fat layer exposed (CMS/HCC); Foot ulcer, left, with fat layer exposed (CMS/HCC)NOM[facility] CI PODIATRYComment on above:Diabetes 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 polyneuropathy, unspecified whether fpc insulin use (CMS/HCC) (Primary Dx); Foot ulcer, right, with fat layer exposed (CMS/HCC); Foot ulcer, left, with fat layer exposed (CMS/HCC)Start: 06-15-2024 End: 55-25-1211Gzuwchj encounter ljzuwwxoq02/10/2024 1:50 PM EDT Office Visit [facility] [address] [phone] Gray Cancino DPM [address] [address] Diabetes 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 polyneuropathy, 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 (CMS/HCC) (Primary Dx); Foot ulcer, right, with fat layer exposed (CMS/HCC); Foot ulcer, left, with fat layer exposed (CMS/HCC); PVD (peripheral vascular disease) (CMS/HCC)NOMS CI PODIATRYComment on above:Diabetes 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 polyneuropathy, 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 (CMS/HCC) (Primary Dx); Foot ulcer, right, with fat layer exposed (CMS/HCC); Foot ulcer, left, with fat layer exposed (CMS/HCC); PVD (peripheral vascular disease) (CMS/HCC)Start: 06-15-2024 End: 92-09-1637Kkhnmdq encounter znexjaipa69/10/2024 8:50 AM EDT Office Visit [facility] [address] [phone] Gray Cancino DPM [address] [address] [facility] CI PODIATRYStart: 06-08-2024 End: 69-54-7145Bozalbr encounter procedureNOMS CI PODIATRYComment on above: Diabetes 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 polyneuropathy, 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 (CMS/HCC) (Primary Dx); Foot ulcer, right, with fat layer exposed (CMS/HCC)Start: 06-01-2024 End: 40-82-7910Kzxupef encounter hyxcnwmgi77/26/2024 9:00 AM EDT Office Visit [facility] [address] [facility] [address] [place] [phone] Gray Cancino, JAIME [address] [address] Diabetes 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 polyneuropathy, 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 (CMS/HCC) (Primary Dx); Foot ulcer, right, with fat layer exposed (CMS/HCC); PVD (peripheral vascular disease) (CMS/HCC)N[facility] CI PODIATRYComment on above:Diabetes 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 polyneuropathy, 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 (CMS/HCC) (Primary Dx); Foot ulcer, right, with fat layer exposed (CMS/HCC); PVD (peripheral vascular disease) (CMS/HCC)Start: 05-25-2024 End: 55-89-0258Ovvvkpp encounter procedureNOMS CI PODIATRYComment on above: Diabetes 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 polyneuropathy, 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 (CMS/HCC) (Primary Dx); Foot ulcer, right, with fat layer exposed (CMS/HCC); PVD (peripheral vascular disease) (CMS/HCC)Start: 05-18-2024 End: 07-35-9030Zuiidlm encounter luoqrspnu88/12/2024 10:00 AM EDT Office Visit [facility] [address] [facility] [address] [place] [phone] Gray Cancino DPM [address] [address] [facility] CI PODIATRYStart: 05-11-2024 End: 12-90-7756Cpvtluu encounter ghbudrfku64/05/2024 10:10 AM EDT Office Visit [facility] [address] [facility] [address] [place] [address] Gray Cancino, DPM [address] [address] [facility] CI PODIATRYStart: 87-29-8054Jvtutrzvw vaccination Influenza Vaccine (#1)[facility] HealthcareStart: 05-04-2024 End: 69-66-7804Runwowy encounter bfiqmbyfl94/29/2024 10:20 AM EDT Office Visit [facility] [address] [facility] [address] [place] [address] Gray Cancino, TAYLERM [address] [address] ArrivedNOMS CI PODIATRYComment on above:ArrivedStart: 41-53-8805Oggahqg [facility] Work Phone: Start: 96-01-1287Zgyoilk [facility] Work Phone: Start: 36-60-3183NFU, Provider: Vinod Ku, Status: Pen, Time: 10:00 AMFUV, Provider: Vinod Ku, Status: Pen, Time: 10:00 AMCass [facility] 250 DO Work Phone: Start: 66-48-7902Tbloqpn [facility] Work Phone: Start: 69-99-4300QHX, Provider: Gabino Deluca, Status: Pen, Time: 9:30 AMFUV, Provider: Gabino Deluca, Status: Pen, Time: 9:30 AMCass Lake Hospital 250 DO Work Phone: Start: 85-92-5516VSG, Provider: Gabino Deluca, Status: Mckinley, Time: 10:30 AMFUV, Provider: Gabino Deluca, Status: Mckinley, Time: 10:30 AMSt. Cloud [facility] Health Care SystemKathy 250 DO Work Phone: Start: 83-58-9291Ztvhlmrt specific antigen measurement PSA Prostate Cancer ScreeningUnOhioHealth Mansfield Hospital: 2010 RSV High Risk: (Elderly (60+) or Population) (1 - Risk 50-74 years 1- dose series)RSV High Risk: (Elderly (60+) or Population) (1 - Risk 50- 74 years 1-dose series)[facility]: 29-16-2988Hqihlx Vaccines (1 of 2)Zoster Vaccines (1 of 2)[facility]: 79-23-1929KMlE/Tdap/Td Vaccines (1 - Tdap)DTaP/Tdap/Td Vaccines (1 - Tdap) [facility]: 27-06-2876Yngqfnzucgpv vaccination Pneumococcal Vaccine (1 of 2 - PCV)[facility]: 33-84-4384Jlbakpuav C screeningHepatitis C ScreeningUnOhioHealth Mansfield Hospital: 81-39-9667Egauolvq screeningDiabetes: Retinopathy Screening [facility]: 48-25-4860PLP Vaccines (1 of 1 - Standard series)MMR Vaccines (1 of 1 - Standard series)[facility]: 34-43-1898Dipqyoxtpw measurementCreatinine LevelUnOhioHealth Mansfield Hospital: 47-87-0501EabuuaftwouxqgfbPzunmcbqtedydnOztnetgczs Hospitals [facility] ClevelandStart: 31-08-8395Ojorqofwct A1c measurementDiabetes: Hemoglobin B9KFjfkopqfgbOhioHealth Mansfield Hospital: 82-93-1647HUC screeningHIV ScreeningUnOhioHealth Mansfield Hospital: 49-12-4176Dndci panelLipid PanelUnOhioHealth Mansfield Hospital: 03-05-2839Fhszgoehr measurement Potassium LevelUnOhioHealth Mansfield Hospital: 25-29-6791Zgmmivaiz for malignant neoplasm of colonNOMS [facility] CenterStart: 05-71-9235Fqbkr screening for proteinDiabetes: Urine Protein ScreeningRegency Hospital Cleveland WestStart: 66-87-1274Rgexyr Adult PhysicalYearly Adult PhysicalUnUC HealthAnkle brachial pressure indexMartins Ferry Hospital Comprehensive metabolic 1999 panel - Serum or PlasmaMartins Ferry HospitalComprehensive metabolic 1999 panel - Serum or [facility] CampusPatient referralMain Campus Medical Center Work Phone: us Lower extremity vein - bilateralMartins Ferry HospitalUS.doppler Lower extremity arteryVascular US lower extremity arterial Doppler complete Vascular Ultrasound Routine PVD (peripheral vascular disease) (CMS/HCC) Ordered: 05/04/2024[facility] Work Phone: Comment on above:Ordered: 05/04/2024[facility] RidgeTestosterone Level Total 09/08/24[facility] Immunizations Immunization DateImmunizationNotesCare PurzgvfjVhyqohro52-63-3666Cdllxd-BdbBXwso COVID-19 Vacc 30 MCG/0.3ML Intramuscular SuspensionWilliam Yosi DO Work Phone: [facility] on above:Result Comment: 2022-05-27: [id number]- [employer] COVID-19 Vacc 30 MCG/0.3ML Intramuscular SuspensionWilliam Yosi DO Work Phone: [facility] on above:Result Comment: 2022-05-27: [id number]- [employer] COVID-19 Vacc 30 MCG/0.3ML Intramuscular SuspensionWilliam Yosi DO Work Phone: [facility] on above:Result Comment: 2022-05-27: [id number]: Highlighted row has not occurred!36-98-8320ttllngibb virus vaccine, unspecified formulation Lety Gonzalez [facility] Payers DatePayer CategoryPayerPolicy [id number] HealthCare [id number] [id number] Health [id number] Health [id number]-ojs [id number] [id number] 2..1.508850.3.57[id number] 2..1.718586.3.57[id number] 2..1.143026.3.57[id number] 2.0.1.372148.3.57[id number] 2.0.1.537736.3.57[id number] 2.16.840.1.088616.3.57[id number] 2.16.840.1.029233.3.57[id number] 2.16.840.1.887382.3.57[id number] 2.16.840.1.616921.3.579.[id number] 2.16.840.1.829430.3.57[id number] 2.16.840.1.701174.3.57[id number] 2.16.840.1.693610.3.57[id number] 2.16.840.1.747626.3.57[id number] 2.16.840.1.794825.3.57[id number] 2.16.840.1.560215.3.57[id number] 2.16.840.1.518894.3.57[id number] 2.16.840.1.528228.3.57[id number] 2.16.840.1.100238.3.57[id number] 2.16.840.1.801605.3.579.2.09496-13-1655Txzlqhf20198135 2.16.840.1.100209.3.579.2.89477-52-1774Vriznax04997786 2.16.840.1.137667.3.579.2.31456-76-0932Hheuqel85708489 2.16.840.1.479194.3.579.2.45948-70-9260Usfwkgl75293601 2.16.840.1.094007.3.579.2.81917-68-4907Irmdikg40607528 2..840.1.119055.3.579.2.32873-12-7768Crljmhv24005097 2..840.1.224869.3.579.2.07926-38-7589Sjonsoz38792079 2.840.1.957213.3.579.2.75633-59-2413Afdnkyc28206334 2..840.1.535420.3.579.2.23587-77-1670Vciyyow80971906 2..840.1.821492.3.579.2.45063-00-1906Tgvtvaz71082641 2.840.1.591606.3.579.2.09453-48-2511Fpuforw37216042 2.840.1.719401.3.579.2.20793-08-2559Guorhwm71252495 2..840.1.851469.3.579.2.74495-16-3864Hzbglhv57952432 2..840.1.195957.3.579.2.42502-63-0096Nowegkg57579314 2..840.1.620589.3.579.2.95434-25-9140Whdexyd36647952 2.16840.1.442874.3.579.2.04925-01-4135Oksxzhk30747460 2.0.1.187546.3.579.2.98164-34-6419Bmdvovw53288538 2.0.1.038078.3.579.2.53858-80-4361Xnjmmoc90928505 2.0.1.434062.3.579.2.20712-14-7862Swnugsz98546836 2.0.1.674232.3.579.2.79168-89-5510Zjzowix86052422 2.0.1.667416.3.579.2.44855-24-9262Pdgwdan02769085 2..1.369003.3.579.2.83701-96-3483Boijikv08688150 2.0.1.121199.3.579.2.73576-32-2127Fxxnkdo19352647 2.0.1.903779.3.579.2.60951-69-3185Qvelnzv6780542 2..1.374044.3.579.2.628882-66-1792Fqtmcci7828452 2.0.1.052438.3.579.2.221390-42-1150Xjmixvm4889926 2.0.1.667676.3.579.2.771541-07-7916Usnxipu5632930 2.840.1.087579.3.579.2.373951-45-4700Hjknipa0140508 2.0.1.048266.3.579.2.685902-13-9038Fzrqxrd2927820 2.16.840.1.370962.3.579.2.689234-24-4717Teahdtz0904960 2.16.840.1.760842.3.579.2.826576-65-7441Wafqbeq1664236 2.16.840.1.299089.3.579.2.130600-12-2718Qttukij8170492 2.16.840.1.302418.3.579.2.394258-86-6965Dlnmrgk4801764 2.16.840.1.843299.3.579.2.947699-06-9397Hmejwlz47097434 2.16.840.1.505993.3.579.2.883625-43-8135Qguqtvn30799012 2.840.1.474760.3.579.2.838349-51-4059Hfgscvf47282592 2.16.840.1.148132.3.579.2.831655-73-9115Kafxxvp45124196 2..840.1.895830.3.579.2.253288-59-2363Eutyklj82891607 2.16.840.1.320233.3.579.2.95599-09-4946Hhmjhtf45107777 2..840.1.093872.3.579.2.22417-85-9565Jrlzvms34847364 2.16.840.1.019680.3.579.2.14868-34-4637Uisifps35344044 2.16.840.1.251810.3.579.2.11708-38-8691Jmyldbl29040600 2.16.840.1.026714.3.579.2.38185-72-1006Caovwsu55971973 2.16.840.1.904329.3.579.2.99248-55-7318Jjbezct70379325 2.16.840.1.276999.3.579.2.09805-10-2437Onwnozf03728270 2.16.840.1.345450.3.579.2.85781-08-8838Hnxiejj34389474 2.16.840.1.096961.3.579.2.91022-90-6543Blrmzib80624805 2.16.840.1.239876.3.579.2.31804-64-9879Xqujxdm30529531 2..840.1.043764.3.579.2.37417-71-7882Ydgxmdk48473190 2.840.1.115130.3.579.2.95413-27-9619Wpamnqm21315117 2..840.1.682286.3.579.2.14966-50-2233Dslfwth66044292 2..840.1.374475.3.579.2.77048-04-4035Vovqhgv53558701 2..840.1.352635.3.579.2.26551-68-6334Bpvjfez02607920 2.840.1.595683.3.579.2.50324-67-4534Cnigxti62767985 2.16.840.1.964824.3.579.2.07819-50-6198Laovuyv78841057 2.16.840.1.552706.3.579.2.76202-51-3876Vrrwljc01650005 2.16.840.1.494680.3.579.2.02268-80-1584Bqdrzln13210049 2.16.840.1.163752.3.579.2.37022-89-5470Mxgiewc66383762 2.16.840.1.816294.3.579.2.32249-09-6052Huxlkve37229115 2.16.840.1.134582.3.579.2.65603-41-0090Vtsnwck35382911 2.16.840.1.145536.3.579.2.14980-20-0374Zrajjso05253516 2.16.840.1.910765.3.579.2.61140-43-6544Solepdo85308306 2.16.840.1.258248.3.579.2.79788-20-0182Amvwqth81639750 2.16.840.1.457181.3.579.2.00276-75-3191Szdgjap51743589 2.16.840.1.264226.3.579.2.86192-09-3537Wfhqmad25556333 2.16.840.1.538222.3.579.2.85578-06-4102Szvbfcg86476938 2.16.840.1.249697.3.579.2.42144-95-9747Jenawut52059848 2.16.840.1.424953.3.579.2.40072-50-0840Ljzjmdc91814309 2.16.840.1.281228.3.579.2.58113-79-1865Doplpqw21686287 2.16.840.1.714690.3.579.2.25733-09-4388Ciwxjnv24201124 2.16.840.1.586023.3.579.2.89451-55-3135Zuvxzjl12372948 2.16.840.1.245718.3.579.2.55381-57-2958Aywivsw54487764 2.16.840.1.615724.3.579.2.56643-51-7193Pnlnhtp84065945 2.16.840.1.241076.3.579.2.47456-26-5086Yrqeegu24235986 2.16.840.1.792559.3.579.2.51722-72-3398Kuhhorf27445504 2.16.840.1.474503.3.579.2.12112-92-5753Vzrhtnc36951131 2..840.1.364106.3.579.2.01480-76-3408Tatghyi74584852 2.16.840.1.077673.3.579.2.45068-50-9554Zeygexs79608281 2..840.1.363172.3.579.2.11428-68-2207Xurhepe08723512 2..840.1.365378.3.579.2.72077-25-7415Srdjeyj66691866 2..840.1.404683.3.579.2.84301-87-5550Iewdpad43081752 2..840.1.204372.3.579.2.19012-71-1429Qxqrvwb79108859 2.16.840.1.124609.3.579.2.06977-32-0395Ukfzday47397756 2.16.840.1.242255.3.579.2.17413-53-2979Nfdxovz46175699 2.16.840.1.713035.3.579.2.35571-43-7182Ivtknts818162591 2.16.840.1.060530.3.579.2.822366-34-5760Eamerhx627253313Ycaxsow Health Insurance [facility] [id number] [facility] [id number] [id number] Social History DateTypeDetailFacilityStart: 07-03-2021 End: 82-31-9654Hjlxzxv smoking statusEx-smoker (finding)[facility] [place] start: 06-01-2024 End: 18-04-6673Tjt Assigned At BirthMaleExec[facility] [place] start: 05-04-2024 End: 82-69-1136Obavkcrz useCaffeine useCass [facility] 250 DO Work Phone: Comment on above:coffee all day long;quit 2012 1ppd; Tobacco smoking statusNeverExecutive [facility] of [facility] Centertart: 13-32-4051Qxv [facility]art: 01-36-6295Gubcswr of tobacco useCurrent smokerNOMS HealthcareStart: 07-04-1471Ddcykqa of tobacco useCigarette SmokerNOMS HealthcareStart: 05-04-2024 End: 48-94-9145Oarumdj use and exposureSmokeless tobacco non-userNOMS Healthcare Start: 05-25-2024 End: 35-39-7974Vnndetsro beverage intakeDeferNOMS HealthcareStart: 35-02-2913Gvq assigned at birthNot on fileNOMS HealthcareTobacco smoking status NHISTobacco smoking consumption unknownNOMS HealthcareHas the Navigating Cancer, gas, oil, or water company threatened to shut off services in your home in past 12[facility] SystemStart: 08-01-2022 End: 87-92-8504UpgTqpz (finding)[facility] SystemSexual Orientation [facility] [place] start: 04-14-7284Ugyrimaef beverage intakeEx-drinker (finding)[facility] Work Phone: Medical Equipment Procedure CodeEquipment CodeEquipment Original TextEquipment IdentifierDates Start: 32-45-0001Vzpuusf (Freestyle Lancets) 28 gauge miscStart: 11-16-2023 Lancets (Freestyle Lancets) 28 gauge miscStart: 11-16-2023 End: 34-66-7255Snrdirw (Freestyle Lancets) 28 gauge miscStart: 84-91-2949Fbzyoab (Freestyle Lancets) 28 gauge miscStart: 11-16-2023 End: 72-53-2377Xugtgkp (Freestyle Lancets) 28 gauge miscStart: 91-91-1187Wzdqynq (Freestyle Lancets) 28 gauge miscStart: 11-16-2023 End: 23-43-2107Cgmasiu (Freestyle Lancets) 28 gauge miscStart: 28-06-1880Drxjhpm (Freestyle Lancets) 28 gauge miscStart: 11-16-2023 End: 07-38-3646Nvbpnry (Freestyle Lancets) 28 gauge miscStart: 55-95-7869Sjblxxk (Freestyle Lancets) 28 gauge miscStart: 11-16-2023 End: 31-83-1428Fxpmq Sugar Diagnostic stripStart: 46-34-3492Sbhqb Sugar Diagnostic stripStart: 34-43-1782Hmcmeef (Freestyle Lancets) 28 gauge miscStart: 65-67-4034Fpldihb (Freestyle Lancets) 28 gauge miscStart: 11-16-2023 End: 40-29-2943Fsncf Sugar Diagnostic stripStart: 47-07-9366Errkl Sugar Diagnostic stripStart: 06-68-8383Jmdrktj (Freestyle Lancets) 28 gauge miscStart: 49-57-9118Mvjziau (Freestyle Lancets) 28 gauge miscStart: 11-16-2023 End: 11-16-2023 Functional Status MthrHmqjnqiucoZnsbkhSolngiau12-02-7152Uqtvnnuhpf /80[facility] Work Phone: [phone]) 115-425511824109-53-9914Qkkae signs76 07/16/2025 2:28 PM EST Gabriel Blackmon, [facility] Work Phone: [phone]upcrqtddpRegency Hospital [facility] Work Phone: 1(144) 170-144202982474-60-0364Eiokkxqeta StatusN/AExec[facility]07-03-2024Functional StatusN/A[facility] [place]01-10-2024Functional StatusN/A [facility] [place]06-28-2023Functional StatusNoExec[facility] [place]03-22-2023 Functional StatusN/A[facility] [place] 46-10-9888Fkjejlfydc StatusN/A[facility] [place]12-14-2022Functional StatusN/A[facility] Clinical Notes 05-27-2022 to 07-17-2025 Note Date & PajcRhmrZfjdlics45-33-4221 Evaluation + Plan note* Assessment & Plan Note - NOLAN Proctor - 07/17/2025 8:53 AM ESTAssociated Problem(s): BMI 50.0-59.9, adult (Multi) Reviewed the merits of healthy lifestyle choices on overall cardiovascular health. 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 diagonal and circumflex PCI/stenting Last ischemic evaluation: May 2019 cardiac cath Ostial diagonal 60% with mid/distal stent 40% ISR Mid circumflex patent stent LAD mild/moderate diffuse disease RCA 30% EF 70% Current daily activity greater than 4 METS without concerning symptoms * Assessment & Plan Note - NOLAN Proctor - 07/17/2025 8:52 AM EST Associated Problem(s): Hyperlipidemia Moderate intensity statin June 2025 LDL 57, HDL 30 * Assessment & Plan Note - NOLAN Proctor - 07/17/2025 8:52 AM EST Associated Problem(s): Essential hypertension Optimal in office * Assessment & Plan Note - NOLAN Proctor - 07/16/2025 2:43 PM EST Associated Problem(s): Obstructive sleep apnea Intolerant to CPAP documented in this encounterReg[facility] Work Phone: 1([phone]) 280-334011-11-2025 Evaluation + Plan note* Assessment & Plan Note - NOLAN Proctor - 07/17/2025 8:52 AM ESTAssociated Problem(s): Hyperlipidemia Moderate intensity statin June 2025 LDL 57, HDL 30 [facility] Work Phone: [phone] 489-239211-11-2025 Evaluation + Plan note* Assessment & Plan Note - NOLAN Proctor - 07/17/2025 8:52 AM ESTAssociated Problem(s): Essential hypertension Optimal in office [facility] Work Phone: [phone]) 788-754711-10-2025 Evaluation + Plan note* Assessment & Plan Note - NOLAN Proctor - 07/16/2025 2:43 PM ESTAssociated Problem(s): Obstructive sleep apnea Intolerant to CPAP [facility] Work Phone: [phone] 310-976611-10-2025 History of Present illness Narrative* NOLAN Proctor - 07/16/2025 2:30 PM EST Chief Complaint I am not doing too bad Reason for Visit Overdue annual follow-up Patient presents to the office today for outpatient follow-up for hypertension, hyperlipidemia, andcoronary artery disease Last evaluated in clinic by Dr. Deluca 2022. Presents today ambulatory with steady gait. Accompanied by spouse Patient denies any hospitalizations or significant changes to interval medical history since last office follow-up. He follows routinely with PCP. Labs June 2025 reviewed. History of Present Illness Patient is a pleasant 64-year-old gentleman who presents for routine cardiology follow-up. 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 He is unable to recall his prior PCI symptoms. He denies any type of exertional chest pain, only reports feeling short winded if he does significant workload. He actually reports improvement in his exercise capacity and functional tolerance. He has chronic dependent edema, does not use compression stockings. Amlodipine is likely contributing. Patient is not interested in treatment changes. No open wounds, blisters. Patient reports that overall has no complaint(s) of chest pain, chest pressure/discomfort, claudication, dyspnea, exertional chest pressure/discomfort, fatigue, irregular heart beat, and near-syncope Daily activity: Greater then 4 METS Reports improvement in exercise capacity or functional tolerance since last office visit. The importance of secondary prevention reviewed: HTN: Optimal HLD: Optimally treated DM: Treated Smoker: Denies BMI: Reviewed the merits of healthy lifestyle choices on overall cardiovascular health. Discussed the dynamic nature of coronary artery disease and the importance of seeking medical attention if new symptoms arise. At this time, no concerning symptoms or indication for ischemic evaluation. He would not be able totolerate baseline GXT for functional capacity. Review of Systems Cardiovascular: Negative for chest pain, dyspnea on exertion, irregular heartbeat, leg swelling, near-syncope, orthopnea, palpitations, paroxysmal nocturnal dyspnea and syncope. Visit Vitals BP 126/80 (BP Location: Left arm, Patient Position: Sitting) Pulse 76 Ht 1.74 m (5' 8.5 ) Wt (!) 155 kg (341 lb) BMI 51.09 kg/m Smoking Status Former BSA 2.74 m Physical Exam Vitals and nursing note reviewed. Constitutional: Appearance: Normal appearance. He is obese. Cardiovascular: Rate and Rhythm: Normal rate and regular rhythm. Heart sounds: Normal heart sounds. Pulmonary: Effort: Pulmonary effort is normal. Breath sounds: Normal breath sounds. Musculoskeletal: Cervical back: Full passive range of motion without pain. Right lower leg: No edema. Left lower leg: No edema. Skin: General: Skin is cool. Neurological: Mental Status: He is alert and oriented to person, place, and time. Psychiatric: Attention and Perception: Attention normal. Mood and Affect: Mood normal. Behavior: Behavior is cooperative. ALLERGIES: Metformin Current Outpatient Medications Medication Instructions amLODIPine (NORVASC) 5 mg, oral, Daily aspirin 81 mg chewable tablet 2 times daily atorvastatin (LIPITOR) 20 mg, Daily carvedilol (COREG) 12.5 mg, oral, Every 12 hours scheduled (0630,1830) citalopram (CeleXA) 20 mg tablet 1 tablet, Daily (629) glipiZIDE XL (GLUCOTROL XL) 10 mg, Daily hyoscyamine ER (LEVBID) 0.375 mg, Every 12 hours PRN Jardiance 25 mg tablet lisinopril 5 mg, Daily RT nitroglycerin (NITROSTAT) 0.4 mg, sublingual, Every 5 min PRN, May repeat dose every 5 minutes for up to 3 doses total. omeprazole (PriLOSEC) [address] capsule TAKE 1 CAPSULE BY MOUTH EVERY DAY BEFORE MEALS pioglitazone (ACTOS) 15 mg, Daily testosterone cypionate (Depo-Testosterone) 200 mg/mL injection INJECT 150MG INTRAMUSCULARLY EVERY 2WEEKS Assessment: Obstructive sleep apnea Intolerant to CPAP Essential hypertension Optimal in office Hyperlipidemia Moderate intensity statin June 2025 LDL 57, HDL 30 Atherosclerotic heart disease of platinum coronary artery without angina pectoris 2012 diagonal and circumflex PCI/stenting Last ischemic evaluation: May 2019 cardiac cath Ostial diagonal 60% with mid/distal stent 40% ISR Mid circumflex patent stent LAD mild/moderate diffuse disease RCA 30% EF 70% Current daily activity greater than 4 METS without concerning symptoms Diabetes mellitus (Multi) On statin/LAURA Unknown hemoglobin A1c BMI 50.0-59.9, adult (Multi) Reviewed the merits of healthy lifestyle choices on overall cardiovascular health. Plan: Reviewed diet, exercise and weight control. Recommended sodium restriction. Cardiovascular risk and specific lipid/LDL goals reviewed. Reviewed medications and side effects in detail. Use of aspirin to prevent [place] and TIA's discussed. Use and side effects of nitroglycerine reviewed, call 911 if chest pain unrelieved by 3 tablets. Through informed decision making process incorporating patients unique circumstances, the followingtreatment plan will be initiated: 1. Prescription drug management of cardiovascular medication for efficacy, adherence to treatment, side effect assessment and polypharmacy. Current treatment clinically warranted and to continue without modifications. 2. Return for follow-up; in the interim, contact the office if new symptoms arise. Dr. Deluca 6 months Vinod Proctor MSN, INFORMATICS SCIENTIST-VISUAL PRESENTATION MANAGER, PMHNP-[facility] [place], [place] Please excuse any errors in grammar or translation related to this dictation. Voice recognition software was utilized to prepare this document. documented in this [facility] Work Phone: 1(317) 566-356011-10-2025 Instructions* Patient Instructions* NOLAN Proctor - 07/16/2025 2:30 PM EST Please bring all medicines, vitamins, and herbal supplements with you when you come to the office. Prescriptions will not be filled unless you are compliant with your follow up appointments or have a follow up appointment scheduled as per instruction of your physician. Refills should be requested at the time of your visit. PLAN: Through informed decision making process incorporating patients unique circumstances, the followingtreatment plan will be initiated: 1. Prescription drug management of cardiovascular medication for efficacy, adherence to treatment, side effect assessment and polypharmacy. Current treatment clinically warranted and to continue without modifications. 2. Return for follow-up; in the interim, contact the office if new symptoms arise. Dr. Deluca 6 months documented in this [facility] Work Phone: 1(346) 996-434108-27-2025 Hospital Discharge instructions Patient Education 05/02/2025 11:59:48 [...] therapy. Follow these instructions at home: Take oehy-itq-entcppm and prescription medicines only as told by [...] provider. Document Revised: 04/24/2021 Document Reviewed: 04/24/2021 [employer] Patient Education 2023 [email or web address] Follow Up Care 10/26/2024 10:10:57 With:Carlos LIZAMA, SHAYY Hernandes, URO Address: When: Unknown [facility] [place] 08-27-2025 NotePatient Education Urology Hypogonadism, Male Male [...] Follow these instructions at home: ??? Take wlwp-dro-gevxzus and prescription medicines only as told by [...] sure you discuss any (more content not included)...[facility]02-20-2025 Hospital Discharge instructions Patient Education 10/26/2024 09:58:58 [...] therapy. Follow these instructions at home: Take deua-kie-yhpztvj and prescription medicines only as told by [...] provider. Document Revised: 04/24/2021 Document Reviewed: 04/24/2021 [employer] Patient Education 2023 [email or web address] Follow Up Care 10/25/2024 12:29:07 With:Carlos LIZAMA, SHAYY Hernandes, URO Address: When: Unknown [facility] 02-20-2025 NotePatient Education Urology Hypogonadism, Male Male [...] Follow these instructions at home: ??? Take ijlt-ozg-bucuuya and prescription medicines only as told by [...] sure you discuss any (more content not included)...[facility]01-03-2025 Evaluation + Plan note Future Scheduled Tests Laboratory* Testosterone Level Total 09/08/24 [facility] [place] 11-22-2024 Plan of care note* Plan of Care - Francisca Mcfadden LPN - 07/28/2024 2:45 PM EST Problem: Pain Goal: Patient goal is pain score less than 4, able to rest, and participant in treatment plan as appropriate Description: INTERVENTIONS: 1. Encourage patient or legal medical representative to report early pain and ask [...] per policy 9. Teach patient or legal medical representative interventions for comforting Outcome: Adequate for [...] at the bedside 7. Instruct patient/ patient medical representative about use of safety devices 8. Include patient/ patient medical representative in decisions related to safety Outcome: [...] hygiene technique 7. Identify and instruct patient/patient medical representative in use of appropriate isolation precautionsfor identified infection/symptoms 8. Provide and discuss with patient/patient medical representative on educational MDRO sheet 9. Encourage and monitor nutritional status daily and consult case consultant if indicated 10. Implement neutropenic guidelines as needed 11. Review exposure to history of communicable disease and recent travel history on admission 12. Encourage annual influenza vaccine 13. Encourage pneumonia vaccine Outcome: Adequate for Discharge Problem: Knowledge Deficit Goal: Patient/patient medical representative demonstrates understanding of disease process, treatment plan,medications, [...] of 0 - 24 or indicated by [facility] Assessment Goal: Patient should be free from fall Description: Interventions: 1. Watson to environment 2. Hourly rounds addressing the [...] non-skid footwear 11. Teach patient and patient medical representative to maintain environment for safety and [...] supplement as ordered 13. Collaborate with clinical case consultant 14. Include patient/ patient's medical representative in decisions related to nutrition Outcome: [...] Score of =/> 25 or indicated by [facility] Assessment Goal: Patient should be free from fall Description: Interventions: 1. Watson to environment 2. Hourly rounds addressing the [...] non-skid footwear 11. Teach patient and patient medical representative to maintain environment for safety and [...] (cane, walker) within reach 19. Request patient medical representative bring adaptive equipment/mobility aids from home or obtain and provide as needed 20. Consult pharmacy regarding effects of med's affecting mobility, cognition, and alternatives 21. Obtain physician order for PT if risk factors associated with mobility are present 22. Obtain physician order for OT as appropriate 23. Utilize diversional activities 24. Educate patient and patient medical representative how to maintain a safe environment during visitationtimes (notify nurse prior to leaving bedside) 25. Consider appropriateness of medical or non-dental assistant medical assistant 26. Set up voiding schedule as appropriate [...] discharge planning process 5. Communicate referral to elementary educator as appropriate 6. Communicate referral to case consultant as appropriate 7. Collaborate with case management/social research assistant for discharge needs Outcome: Adequate for Discharge [facility] [id number] Miscellaneous Notes* Plan of Care - Francisca Mcfadden LPN - 07/28/2024 2:45 PM EST Problem: Pain Goal: Patient goal is pain score less than 4, able to rest, and participant in treatment plan as appropriate Description: INTERVENTIONS: 1. Encourage patient or legal medical representative to report early pain and ask [...] per policy 9. Teach patient or legal medical representative interventions for comforting Outcome: Adequate for [...] at the bedside 7. Instruct patient/ patient medical representative about use of safety devices 8. Include patient/ patient medical representative in decisions related to safety Outcome: [...] hygiene technique 7. Identify and instruct patient/patient medical representative in use of appropriate isolation precautionsfor identified infection/symptoms 8. Provide and discuss with patient/patient medical representative on educational MDRO sheet 9. Encourage and monitor nutritional status daily and consult case consultant if indicated 10. Implement neutropenic guidelines as needed 11. Review exposure to history of communicable disease and recent travel history on admission 12. Encourage annual influenza vaccine 13. Encourage pneumonia vaccine Outcome: Adequate for Discharge Problem: Knowledge Deficit Goal: Patient/patient medical representative demonstrates understanding of disease process, treatment plan,medications, [...] of 0 - 24 or indicated by [facility] Assessment Goal: Patient should be free from fall Description: Interventions: 1. Watson to environment 2. Hourly rounds addressing the [...] non-skid footwear 11. Teach patient and patient medical representative to maintain environment for safety and [...] supplement as ordered 13. Collaborate with clinical case consultant 14. Include patient/ patient's medical representative in decisions related to nutrition Outcome: [...] Score of =/> 25 or indicated by [facility] Assessment Goal: Patient should be free from fall Description: Interventions: 1. Watson to environment 2. Hourly rounds addressing the [...] non-skid footwear 11. Teach patient and patient medical representative to maintain environment for safety and [...] (cane, walker) within reach 19. Request patient medical representative bring adaptive equipment/mobility aids from home or obtain and provide as needed 20. Consult pharmacy regarding effects of med's affecting mobility, cognition, and alternatives 21. Obtain physician order for PT if risk factors associated with mobility are present 22. Obtain physician order for OT as appropriate 23. Utilize diversional activities 24. Educate patient and patient medical representative how to maintain a safe environment during visitationtimes (notify nurse prior to leaving bedside) 25. Consider appropriateness of medical or non-dental assistant medical assistant 26. Set up voiding schedule as appropriate [...] discharge planning process 5. Communicate referral to elementary educator as appropriate 6. Communicate referral to case consultant as appropriate 7. Collaborate with case management/social research assistant for discharge needs Outcome: Adequate for Discharge [...] Description: INTERVENTIONS: 1. Encourage patient or legal medical representative to report early pain and ask [...] per policy 9. Teach patient or legal medical representative interventions for comforting Outcome: Progressing Note: [...] at the bedside 7. Instruct patient/ patient medical representative about use of safety devices 8. Include patient/ patient medical representative in decisions related to safety Outcome: Progressing Note: Evaluation of progress towards goal: call light within reach and bed in lowest position * Query Response - Stephanie Mayfield APRN-MICHAELLE - 07/27/2024 7:00 AM EST Query Response [...] Description: INTERVENTIONS: 1. Encourage patient or legal medical representative to report early pain and ask [...] per policy 9. Teach patient or legal medical representative interventions for comforting Outcome: Progressing Note: [...] hygiene technique 7. Identify and instruct patient/patient medical representative in use of appropriate isolation precautionsfor identified infection/symptoms 8. Provide and discuss with patient/patient medical representative on educational MDRO sheet 9. Encourage and monitor nutritional status daily and consult case consultant if indicated 10. Implement neutropenic guidelines as [...] Description: INTERVENTIONS: 1. Encourage patient or legal medical representative to report early pain and ask [...] per policy 9. Teach patient or legal medical representative interventions for comforting Outcome: Progressing Note: [...] at the bedside 7. Instruct patient/ patient medical representative about use of safety devices 8. Include patient/ patient medical representative in decisions related to safety Outcome: [...] pt will be d/c to SNF * Plan of Care - Luis Pope RN - 07/25/2024 2:21 AM EST Problem: Pain Goal: Patient goal is pain score less than 4, able to rest, and participant in treatment plan as appropriate Description: INTERVENTIONS: 1. Encourage patient or legal medical representative to report early pain and ask [...] per policy 9. Teach patient or legal medical representative interventions for comforting Outcome: Progressing Note: Evaluation of progress towards goal: Patient denies pain at this time and NG hooked up to LIWS. * Plan of Care - Alka Bird RN - 07/24/2024 5:25 PM EST Problem: Pain Goal: Patient goal is pain score less than 4, able to rest, and participant in treatment plan as appropriate Description: INTERVENTIONS: 1. Encourage patient or legal medical representative to report early pain and ask [...] per policy 9. Teach patient or legal medical representative interventions for comforting Outcome: Progressing Note: Evaluation of progress towards goal: Pain well managed with dilaudid, ngt to [facility]. Problem: Safety Goal: Patient will be injury free during hospitalization Description: INTERVENTIONS: 1. Assess patient's risk for falls and implement fall prevention plan of care per policy 2. Provide and maintain a safe environment 3. Proper use of double Identifiers 4. Medication administration using the 5 rights 5. Hand hygiene 6. Specimens are labeled at the bedside 7. Instruct patient/ patient medical representative about use of safety devices 8. Include patient/ patient medical representative in decisions related to safety Outcome: [...] hygiene technique 7. Identify and instruct patient/patient medical representative in use of appropriate isolation precautionsfor identified infection/symptoms 8. Provide and discuss with patient/patient medical representative on educational MDRO sheet 9. Encourage and monitor nutritional status daily and consult case consultant if indicated 10. Implement neutropenic guidelines as needed 11. Review exposure to history of communicable disease and recent travel history on admission 12. Encourage annual influenza vaccine 13. Encourage pneumonia vaccine Outcome: Progressing Note: Evaluation of progress towards goal: WBC count elevated on admission. Afebrile this shift. Will continue to monitor. Problem: Knowledge Deficit Goal: Patient/patient medical representative demonstrates understanding of disease process, treatment plan,medications, [...] return home at discharge with spouse. * PT/OT/PERFORMING ARTS ROAD MANAGER - Jemima Proctor PT - 07/24/2024 9:32 AM EST Physical Therapy PT Type of Visit: (Per RN, pt is independent with mobility & has no PT needs. Will discontinue PT order at this time.) * PT/OT/PERFORMING ARTS ROAD MANAGER - Emily Vidales OTR/L - 07/24/2024 9:28 AM EST Occupational Therapy OT Type of Visit: Discharge from Therapy (Per RN report, pt is indep with ADLs and functional mobility. No acute OT needs identified. Will discontinue OT order at this time.) * Discharge Planning Note - Alaina Slaughter LCSW - 07/24/2024 9:18 AM EST DISCHARGE PLANNING NOTE Chief Of Hospital Medicine met with patient, introduced self, and explained role. Patient educated on safe discharge plan. Pt admitted 07/24/2024 with Small bowel obstruction (CMS-HCC) [K56.609] Small bowel obstruction (CMS-HCC) [K56.609] per chart review. Pt is listed in [facility] as a 5% risk forre-admission. Pt reports that he is from the [facility]. Confirms that he does have health insurance. [...] primary care provider on file. Pharmacy: [email or web address] [place] PCP and pharmacy confirmed with patient. CN [...] Description: INTERVENTIONS: 1. Encourage patient or legal medical representative to report early pain and ask [...] per policy 9. Teach patient or legal medical representative interventions for comforting Outcome: Progressing Note: Evaluation of progress towards goal: Patient rates pain a 10/10. PRN pain medications requested from [employer] vocational rehabilitation counselor Problem: Safety Goal: Patient will be injury free during hospitalization Description: INTERVENTIONS: 1. Assess patient's risk for falls and implement fall prevention plan of care per policy 2. Provide and maintain a safe environment 3. Proper use of double Identifiers 4. Medication administration using the 5 rights 5. Hand hygiene 6. Specimens are labeled at the bedside 7. Instruct patient/ patient medical representative about use of safety devices 8. Include patient/ patient medical representative in decisions related to safety Outcome: [...] hygiene technique 7. Identify and instruct patient/patient medical representative in use of appropriate isolation precautionsfor identified infection/symptoms 8. Provide and discuss with patient/patient medical representative on educational MDRO sheet 9. Encourage and monitor nutritional status daily and consult case consultant if indicated 10. Implement neutropenic guidelines as [...] of 0 - 24 [facility] Goal: Patient should be free from fall Description: Interventions: 1. Watson to environment 2. Hourly rounds addressing the [...] non-skid footwear 11. Teach patient and patient medical representative to maintain environment for safety and engage in all aspects of fall prevention program Outcome: Progressing Note: Evaluation of progress towards goal: Patient is independent from home, steady gait with good balance. Low risk for falls, but still educated on importance of calling out for help to prevent falls. documented in this encounterOhio[facility]-2024 Progress note* Discharge Planning Note - SEMAJ Moss - 07/28/2024 2:23 PM EST DISCHARGE PLANNING NOTE Sw reviewed pts chart and discharge is written. No needs for discharge. - SEMAJ Moss 07/28/24 2:23 PM [facility] Hospital course Narrative* Vaibhav Slater MD - 07/28/2024 12:07 PM EST Images from the original note were not included. [facility] INTERNAL MEDICINE [facility] - 6 CARD TELE/INTERMEDIATE [address] [place] [id number] Hospital Medicine Discharge Summary Patient: Johnathan Correa Date of : 1960 Room: [facility] Encounter date: 07/28/24 DATE OF ADMISSION: 07/24/2024 DATE OF DISCHARGE:07/28/2024 DISCHARGE DIAGNOSES Principal Problem: Small bowel obstruction ([facility]) Active Problems: JAM (obstructive sleep apnea) Hypertension DM2 (diabetes mellitus, type 2) ([facility]) CAD (coronary artery disease) [facility] General Surgery PCP: No primary care provider on file. PROCEDURES None HOSPITAL COURSE SUMMARY Johnathan Stewart is a 63 y.o. male who presents with abdominal pain and nausea that started at 3:00 PMthis afternoon. He reported a normal bowel movement the day prior and denied any history of abdominal surgery. He was seen at [place] [facility], and work up was completed with [...] patient who recommended patient be admitted to [facility] tosee the surgery team here. An NG tube was placed after discussion with general surgery prior to transfer. On arrival to [facility], he is having 10/10 abdominal pain and [...] minutes were spent on discharging this patient. NOLAN Araiza, 07/28/2024 4:06 PM [facility] Internal Medicine 7AM-7PM (all facilities): EpicChat or page through Vocera. 7PM-7AM ([facility], [facility] Psychiatry and Inpatient Rehab): EpicChat or page, [phone]. 7PM-7AM ([place], [place], [place], [place] and [facility] Rehab): EpicChat or page through Vocera. NOLAN Araiza 07/28/24 1606 Patient seen and examined Interviewed and any questions answered All labs , xrays reviewed Clinical assessment and decisions made by myself in entirety Discussed case with team Agree with above assessment and plan Electronically signed by: VAIBHAV SLATER MD, 07/28/2024 4:12 PM [facility] [employer] [facility] [address] [facility] [employer] [facility] [place] [address] (P): [phone] (F): [phone] documented in this encounterOhioHealth [facility]11-22-2024 History of Present illness Narrative* Analisa Ward, - 07/28/2024 8:40 AM EST [facility] General Surgery Daily Progress Note Patient Name: [...] 07/28/24 8:45 AM 6a - 6p Pager: [phone] Cosigned by Francois Pate MD at 07/28/2024 4:13 PM EST Associated attestation - Francois Pate MD - 07/28/2024 4:13 PM EST I reviewed the resident's note and discussed the case with the resident. This specific service willnot be billed. * Rona Gage MD - 07/27/2024 8:31 AM EST Images from the original note were not included. [facility] Surgery Daily Progress Note Patient Name: Johnathan [...] shifts: I/O last 3 completed shifts: In: 0.5 [I.V.:1880.5] Out: - Intake/Output this shift: No intake/output [...] from the original note were not included. [facility] INTERNAL MEDICINE [facility] - 6 CARD TELE/INTERMEDIATE [address] [place] [id number] Hospital Medicine Progress Note Patient: Johnathan Correa Date of : 1960 Room: [facility] PCP: No primary care provider on file. [...] PROBLEM LIST Principal Problem: Small bowel obstruction ([facility]) Active Problems: JAM (obstructive sleep apnea) Hypertension DM2 (diabetes mellitus, type 2) ([facility]) CAD (coronary artery disease) ASSESSMENT & PLAN [...] apnea Noncompliant with CPAP GERD Protonix Depression [place] DAHLIA planning: Pending Clinical Course. Home tomorrow if WBC count improved and tolerating diet. Stephanie Mayfield, INFORMATICS SCIENTIST-VISUAL PRESENTATION MANAGER, 07/27/2024 8:21 AM [facility] Internal Medicine 7AM-7PM (all facilities): Activate Networks or page through ScanNano. 7PM-7AM ([facility], [facility] Psychiatry and Inpatient Rehab): EpicChat or page, [phone]. 7PM-7AM ([place], [place], [place], [place] and [facility] Rehab): EpicChat or page through ScanNano. NOLAN Araiza 07/27/241850 NOLAN Araiza 07/27/241850 Physician [...] from the original note were not included. [facility] INTERNAL MEDICINE [facility] - 6 CARD TELE/INTERMEDIATE [address] [place] [id number] Hospital Medicine Progress Note Patient: Johanthan Correa Date of : 1960 Room: [facility] PCP: No primary care provider on file. [...] PROBLEM LIST Principal Problem: Small bowel obstruction ([facility]) Active Problems: JAM (obstructive sleep apnea) Hypertension DM2 (diabetes mellitus, type 2) ([facility]) CAD (coronary artery disease) ASSESSMENT & PLAN Small Bowel Obstruction General Surgery consulted. Passing gas and had small loose BM. Afebrile. WBC 16.3 > 17.5 > 15.9. NGT pulled this morning. Denies N/V, but does admit to mild abdominal pain in bilateral upper quadrants. Tolerating CLD. [place] PRN for pain and compazine PRN for nausea Diabetes mellitus, type 2 Takes a once weekly injection, cannot remember the name ACHS checks + Sliding Scale Insulin Hypertension / HLD / CAD - remote history of stents Carvedilol, lisinopril, amlodipine Obstructive sleep apnea Noncompliant with CPAP GERD Protonix Depression Celexa DC planning: Pending Clinical Course. NOLAN Araiza, 07/26/2024 9:07 AM [facility] 7AM-7PM (all facilities): EpicChat or page through ScanNano. 7PM-7AM ([facility], [facility] Psychiatry and Inpatient Rehab): EpicChat or page, [phone]. 7PM-7AM ([place], [place], [place], [place] and [facility] Rehab): EpicChat or page through ScanNano. NOLAN Araiza 07/26/24 5820 Physician Attestation I personally performed a face to face diagnostic evaluation on this patient on 07/26/24 I have repeated the ghosh portions of the history, review of systems,physical exam, reviewed relevantlaboratory findings and imaging reports/films. I agree with the PINO findings and the plan . Adrienne Rodriguez MD * Analisa Ward, DO - 07/26/2024 8:27 AM EST Images from the original note were not included. [facility] Surgery Daily Progress Note Patient Name: Johnathan [...] Orders (From admission, onward) Start Ordered 07/26/24 06 Adult diet Clear Liquid Diet effective now [...] FACS General Surgery and Minimally Invasive Surgery [address] [place] [address], [address] [place] [address] Office: * Adrienne Rodriguez MD - 07/25/2024 8:58 AM EST Images from the original note were not included. [facility] INTERNAL MEDICINE [facility] - 6 CARD TELE/INTERMEDIATE [address] [facility] [id number] Hospital Medicine Progress Note Patient: Johnathan Correa Date of : 1960 Room: 7/ PCP: No primary care provider on file. [...] PROBLEM LIST Principal Problem: Small bowel obstruction ([facility]) Active Problems: JAM (obstructive sleep apnea) Hypertension DM2 (diabetes mellitus, type 2) ([facility]) CAD (coronary artery disease) ASSESSMENT & PLAN [...] GERD Protonix DC planning: Pending Clinical Course. Stephanie Mayfield, INFORMATICS SCIENTIST-VISUAL PRESENTATION MANAGER, 07/25/2024 8:58 AM [facility] Internal Medicine 7AM-7PM (all facilities): [employer] Networks or page through ScanNano. [facility] EpicChat or page, [phone]. 7PM-7AM ([place], [place], [place], [place] and [facility] Rehab): EpicChat or page through ScanNano. NOLAN Araiza 07/25/24 1704 Physician Attestation I [...] from the original note were not included. [facility] General Surgery Daily Progress Note Patient Name: [...] stable NGT with minimal output Objective: Vitals: 07/25/24 0405 BP: (!) 161/92 Pulse: 103 Resp: 19 [...] PRN Rest of care per primary Dinorah Lundy MS3 Rona Gage MD General Surgery Resident [...] as noted above. documented in this encounterOhioHealth [facility]11-22-2024 Nurse Note* Mono Weinberg RN - 07/28/2024 7:17 AM EST Plan of care reviewed with ANTOINETTE Tran. [facility] Nurse Note* Mono Weinberg RN - 07/28/2024 7:17 AM EST Plan of care reviewed with ANTOINETTE Tran. * Josiane Aguilar RN - 07/27/2024 6:00 PM EST Plan of care reviewed with antoinette * Blaire Aldana LPN - 07/27/2024 9:49 [...] CPAP machine with him. Teresa Nguyen RN [id number] Rapid Response: [place] * Luis Pope RN - 07/24/2024 4:03 AM EST Patient arrived at 0315 from [facility]. The patient arrived with an NG tube at 64 cm and was hooked to suction at the previous facility. Reached out to the [employer] vocational rehabilitation counselor for suction orders and was advised to reach out to General Surgery for suction orders. I paged Dr. Pate who was vocational rehabilitation counselor for general surgery and told him about the consult and the need for suction orders and he told me thatI can not call at 0400 and ask for orders for a new consult he doesn't even know. I told him I was advised to reach out to him for the suction order and he advised me to reach back out to the [employer] vocational rehabilitation counselor as he was not doing it. Sent another secure messaged to the [employer] vocational rehabilitation counselor. Waiting for orders. Will continue to monitor. documented in this encounterOhioHealth [facility]11-22-2024 Plan of care note * Plan of Care - Erwin Starkey RN - 07/28/2024 12:02 AM EST Problem: Pain Goal: Patient goal is pain score less than 4, able to rest, and participant in treatment plan as appropriate Description: INTERVENTIONS: 1. Encourage patient or legal medical representative to report early pain and ask [...] per policy 9. Teach patient or legal medical representative interventions for comforting Outcome: Progressing Note: Evaluation of progress towards goal: Patient encouraged to report pain early. [facility]11-21-[facility] Plan of care note* Plan [...] at the bedside 7. Instruct patient/ patient medical representative about use of safety devices 8. Include patient/ patient medical representative in decisions related to safety Outcome: Progressing Note: Evaluation of progress towards goal: call light within reach and bed in lowest position [facility]11-21-2024 Nurse Note* Josiane Aguilar RN - 07/27/2024 6:00 PM EST Plan of care reviewed with antoinette [facility]11-21-2024 Nurse Note* Blaire Aldana LPN - 07/27/2024 9:49 AM EST Pt tolerated reg diet eating 25% of his breakfast [facility]11-21-2024 Progress note* Query Response - [...] signed by: Stephanie FRANCISCO 07/27/2024 6:57 AM [facility]11-21-2024 Plan of care note* Plan of Care - Luis Pope RN - 07/27/2024 4:44 AM EST Problem: Pain Goal: Patient goal is pain score less than 4, able to rest, and participant in treatment plan as appropriate Description: INTERVENTIONS: 1. Encourage patient or legal medical representative to report early pain and ask [...] per policy 9. Teach patient or legal medical representative interventions for comforting Outcome: Progressing Note: Evaluation of progress towards goal: Patient denies pain at this time and is sleeping comfortably in bed. [facility]11-20-2024 Progress note* Discharge Planning Note - Beatrice [...] is available should any further needs arise. [facility]11-20-[facility] Plan of care note* Plan of [...] hygiene technique 7. Identify and instruct patient/patient medical representative in use of appropriate isolation precautionsfor identified infection/symptoms 8. Provide and discuss with patient/patient medical representative on educational MDRO sheet 9. Encourage and monitor nutritional status daily and consult case consultant if indicated 10. Implement neutropenic guidelines as needed 11. Review exposure to history of communicable disease and recent travel history on admission 12. Encourage annual influenza vaccine 13. Encourage pneumonia vaccine Outcome: Progressing Note: Evaluation of progress towards goal: vital signs and labs are monitored each shift [facility]11-20-2024 Nurse Note* Blaire Aldana LPN - 07/26/2024 8:38 AM EST NG tube removed per order, Pt tolerated procedure well. No c/o pain of nausea. Pts diet has advanced to clear liquids [facility]11-20-2024 Plan of care note* Plan of Care - Luis Pope RN - 07/26/2024 3:26 AM EST Problem: Pain Goal: Patient goal is pain score less than 4, able to rest, and participant in treatment plan as appropriate Description: INTERVENTIONS: 1. Encourage patient or legal medical representative to report early pain and ask [...] per policy 9. Teach patient or legal medical representative interventions for comforting Outcome: Progressing Note: [...] at the bedside 7. Instruct patient/ patient medical representative about use of safety devices 8. Include patient/ patient medical representative in decisions related to safety Outcome: [...] patient to go home with her . [facility]11-19-2024 Plan of care note* Plan [...] goal: pt will be d/c to SN[facility]11-19-2024 Nurse Note* Teresa Nguyen RN [...] CPAP machine with him. Teresa Nguyen RN [id number] Rapid Response: [place] [facility]11-19-2024 Plan of care note* Plan of Care - Luis Pope RN - 07/25/2024 2:21 AM EST Problem: Pain Goal: Patient goal is pain score less than 4, able to rest, and participant in treatment plan as appropriate Description: INTERVENTIONS: 1. Encourage patient or legal medical representative to report early pain and ask [...] per policy 9. Teach patient or legal medical representative interventions for comforting Outcome: Progressing Note: Evaluation of progress towards goal: Patient denies pain at this time and NG hooked up to LIWS. [facility]11-18-2024 Plan of care note* Plan of Care - Alka Bird RN - 07/24/2024 5:25 PM EST Problem: Pain Goal: Patient goal is pain score less than 4, able to rest, and participant in treatment plan as appropriate Description: INTERVENTIONS: 1. Encourage patient or legal medical representative to report early pain and ask [...] per policy 9. Teach patient or legal medical representative interventions for comforting Outcome: Progressing Note: Evaluation of progress towards goal: Pain well managed with dilaudid, ngt to liw. Problem: Safety Goal: Patient will be injury free during hospitalization Description: INTERVENTIONS: 1. Assess patient's risk for falls and implement fall prevention plan of care per policy 2. Provide and maintain a safe environment 3. Proper use of double Identifiers 4. Medication administration using the 5 rights 5. Hand hygiene 6. Specimens are labeled at the bedside 7. Instruct patient/ patient medical representative about use of safety devices 8. Include patient/ patient medical representative in decisions related to safety Outcome: [...] hygiene technique 7. Identify and instruct patient/patient medical representative in use of appropriate isolation precautionsfor identified infection/symptoms 8. Provide and discuss with patient/patient medical representative on educational MDRO sheet 9. Encourage and monitor nutritional status daily and consult case consultant if indicated 10. Implement neutropenic guidelines as needed 11. Review exposure to history of communicable disease and recent travel history on admission 12. Encourage annual influenza vaccine 13. Encourage pneumonia vaccine Outcome: Progressing Note: Evaluation of progress towards goal: WBC count elevated on admission. Afebrile this shift. Will continue to monitor. Problem: Knowledge Deficit Goal: Patient/patient medical representative demonstrates understanding of disease process, treatment plan,medications, [...] to return home at discharge with spouse. [employer] Work Phone: [phone] Progress note* PT/OT/PERFORMING ARTS ROAD MANAGER - Jemima Proctor PT - 07/24/2024 9:32 AM EST Physical Therapy PT Type of Visit: (Per RN, pt is independent with mobility & has no PT needs. Will discontinue PT order at this time.) [facility]11-18-2024 Progress note* PT/OT/PERFORMING ARTS ROAD MANAGER - Emily Vidales OTR/L - 07/24/2024 9:28 AM EST Occupational Therapy OT Type of Visit: Discharge from Therapy (Per RN report, pt is indep with ADLs and functional mobility. No acute OT needs identified. Will discontinue OT order at this time.) [facility]11-18-2024 Progress note* Discharge Planning Note - Alaina Slaughter LCSW - 07/24/2024 9:18 AM EST DISCHARGE PLANNING NOTE Chief Of Hospital Medicine met with patient, introduced self, and explained role. Patient educated on safe discharge plan. Pt admitted 07/24/2024 with Small bowel obstruction (CMS-HCC) [K56.609] Small bowel obstruction (CMS-HCC) [K56.609] per chart review. Pt is listed in [facility] as a 5% risk forre-admission. Pt reports that he is from the [facility]. Confirms that he does have health insurance. [...] primary care provider on file. Pharmacy: [email or web address] [place] PCP and pharmacy confirmed with patient. CN [...] Alaina Slaughter LCSW 07/24/24 9:19 AM [facility]11-18-2024 History and physical note* Adrienne Rodriguez MD - 07/24/2024 4:11 AM EST Images from the original note were not included. [facility] INTERNAL MEDICINE [facility] - 6 CARD TELE/INTERMEDIATE [address] [facility] [id number] Hospital Medicine History & Physical Patient: Johnathan Stewart Date of : 1960 Room: [facility]/ PCP: No primary care provider on file. Admission date: 07/24/2024 3:05 AM Encounter date: 07/24/24 Hospital Day: 1 SUBJECTIVE Johnathan Stewart is a 63 y.o. male who presents with abdominal pain and nausea that started at 3:00 PMthis afternoon. He reported a normal bowel movement the day prior and denied any history of abdominal surgery. He was seen at [place] [facility], and work up was completed with [...] patient who recommended patient be admitted to [facility] tosee the surgery team here. An NG tube was placed after discussion with general surgery prior to transfer. On arrival to [facility], he is having 10/10 abdominal pain and [...] ear normal. Nose: Nose normal. Mouth/Throat: Lips: Bieber. Mouth: Mucous membranes are dry. Pharynx: Oropharynx [...] placed NG tube - recommended transfer to [facility] to see surgery NG tube to low [...] course. EMMETT SAUER PA-C 07/24/2024 4:11 AM [facility] 7AM-7PM (all facilities): EpicChat or page through [employer]. 7PM-7AM ([facility], [facility] Psychiatry and Inpatient Rehab): EpicChat or page, [phone]. 7PM-7AM ([facility] and [facility] Rehab): EpicChat or page through [facility] [employer]. Emmett Sauer PA-C 07/24/24 0649 Physician Attestation [...] care with patient. Adrienne Rodriguez MD [facility]11-18-2024 History and physical note* Adrienne Rodriguez MD - 07/24/2024 4:11 AM EST Images from the original note were not included. [facility] INTERNAL MEDICINE [facility] - 6 CARD TELE/INTERMEDIATE [address] [place] [id number] Hospital Medicine History & Physical Patient: Johnathan Stewart Date of : 1960 Room: [facility]/ PCP: No primary care provider on file. Admission date: 07/24/2024 3:05 AM Encounter date: 07/24/24 Hospital Day: 1 SUBJECTIVE Johnathan Stewart is a 63 y.o. male who presents with abdominal pain and nausea that started at 3:00 PMthis afternoon. He reported a normal bowel movement the day prior and denied any history of abdominal surgery. He was seen at [place] [facility], and work up was completed with [...] patient who recommended patient be admitted to [facility] tosee the surgery team here. An NG tube was placed after discussion with general surgery prior to transfer. On arrival to [facility], he is having 10/10 abdominal pain and [...] ear normal. Nose: Nose normal. Mouth/Throat: Lips: Bieber. Mouth: Mucous membranes are dry. Pharynx: Oropharynx [...] PROBLEM LIST Principal Problem: Small bowel obstruction ([facility]-HCC) ASSESSMENT & PLAN Small bowel obstruction versus ileus CT abd/pelvis showed prominent gas and fluid filled distended small bowel loops appear to show gradual tapering to normal caliber distally, with no transition point identified, favoring severe small bowel ileus over partial distal small bowel obstruction. NPO ED physician spoke with Dr. Ferrara for surgery consult and placed NG tube - recommended transfer to [facility] to see surgery NG tube to low [...] SAUER PA-C 07/24/2024 4:11 AM [facility] 7AM-7PM (all facilities): FastConnectt or page through [employer]. 7PM-7AM ([facility], [facility] Psychiatry and Inpatient Rehab): EpicChat or page, [phone]. 7PM-7AM ([place] [place], [place], [place] and [facility] Rehab): EpicChat or page through [employer]. Emmett Sauer PA-C 07/24/24 0649 Physician Attestation [...] Adrienne Rodriguez MD documented in this encounterOhioHealth [facility] Nurse Note* Luis Pope RN - 07/24/2024 4:03 AM EST Patient arrived at 0315 from [facility]. The patient arrived with an NG tube at 64 cm and was hooked to suction at the previous facility. Reached out to the [employer] vocational rehabilitation counselor for suction orders and was advised to reach out to General Surgery for suction orders. I paged Dr. Pate who was vocational rehabilitation counselor for general surgery and told him about the consult and the need for suction orders and he told me thatI can not call at 0400 and ask for orders for a new consult he doesn't even know. I told him I was advised to reach out to him for the suction order and he advised me to reach back out to the [employer] vocational rehabilitation counselor as he was not doing it. Sent another secure messaged to the [employer] vocational rehabilitation counselor. Waiting for orders. Will continue to monitor. [facility]11-18-2024 Miscellaneous Notes* Telephone Encounter - Junie Nolasco - 07/24/2024 3:54 AM EST Contract: bella Obrien calling for consult for small bowel obstruction. Room 607. Sent secure chat to Dr Pate. documented in this encounterOhioHealth [facility] Center11-[facility]-2024 Telephone encounter Note* Telephone Encounter - Junie Nolasco - 07/24/2024 3:54 AM EST Contract: bella Obrien calling for consult for small bowel obstruction. Room 607. Sent secure chat to Dr Pate. [facility]11-18-2024 Plan of care note* Plan of Care - Luis Pope RN - 07/24/2024 3:31 AM EST Problem: Pain Goal: Patient goal is pain score less than 4, able to rest, and participant in treatment plan as appropriate Description: INTERVENTIONS: 1. Encourage patient or legal medical representative to report early pain and ask [...] per policy 9. Teach patient or legal medical representative interventions for comforting Outcome: Progressing Note: Evaluation of progress towards goal: Patient rates pain a 06/15. PRN pain medications requested from [employer] vocational rehabilitation counselor Problem: Safety Goal: Patient will be injury free during hospitalization Description: INTERVENTIONS: 1. Assess patient's risk for falls and implement fall prevention plan of care per policy 2. Provide and maintain a safe environment 3. Proper use of double Identifiers 4. Medication administration using the 5 rights 5. Hand hygiene 6. Specimens are labeled at the bedside 7. Instruct patient/ patient medical representative about use of safety devices 8. Include patient/ patient medical representative in decisions related to safety Outcome: [...] hygiene technique 7. Identify and instruct patient/patient medical representative in use of appropriate isolation precautionsfor identified infection/symptoms 8. Provide and discuss with patient/patient medical representative on educational MDRO sheet 9. Encourage and monitor nutritional status daily and consult case consultant if indicated 10. Implement neutropenic guidelines as [...] of 0 - 24 or indicated by [facility] Rehab Assessment Goal: Patient should be free from fall Description: Interventions: 1. Watson to environment 2. Hourly rounds addressing the [...] non-skid footwear 11. Teach patient and patient medical representative to maintain environment for safety and engage in all aspects of fall prevention program Outcome: Progressing Note: Evaluation of progress towards goal: Patient is independent from home, steady gait with good balance. Low risk for falls, but still educated on importance of calling out for help to prevent falls. [facility]11-07-2024 History of Present illness Narrative* Gray Cancino DPM - 07/13/2024 11:00 AM EST Patient: Johnathan Correa : 1960 PCP: Luis [...] the following treatments for the ulcer of [facility] every other day. Pt is a DM2. Allergies: Allergies Allergen Reactions Metformin Diarrhea and GI intolerance Other Reaction(s): Abdominal Pain, diarrhea, Stomach cramps Vancomycin Rash Past Medical History: Past Medical History: Diagnosis Date Diabetes (CMS/HCC) Hypertension (CMS/[facility]) Medications: Current Outpatient Medications: amLODIPine (Norvasc) 5 [...] Partner Violence: Unknown (10/28/2023) Received from [facility] Safety & Environment Fear of Current [...] CP, palpitations, irregular rhythms. Old history of [place] and cardiac stents OBJECTIVE LE EXAM: DERM: [...] cool tibia to toes b/l NEURO: 5.[address] monofilament test intact to digits and forefoot bilaterally 125Hz tuning fork diminished to 1st MPJ bilaterally ORTHO: +5/5 DF/PF/IN/EV right, +5/5 DF/PF/IN/EV left. 20 degrees inversion and 10 degrees eversion STJ b/l. Ankle ROM less than 10 degrees b/l. Negative pain on palpation to right hallux ulcer and left foot ulcerations DUSTIN PVR: [place] report reviewed today with findings of mild PVD right-sided DUSTIN TBI of 0.85 0.91 and TBI of right side 0.91 and left 0.84. 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 Diabetes 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 polyneuropathy, unspecified whether fpc insulin use ([facility]) 2. Foot ulcer, right, with fat layer exposed ([facility]) 3. Foot ulcer, left, with fat layer exposed ([facility]) PLAN Patient observe for any changes to his foot and if has any issues to contact Podiatry but otherwisehe is leaving for 5 weeks to the [facility] and will contact Podiatry if [...] gear. Gray Cancino DPM documented in this encounterUniversity of Missouri Health [id number] History of Present illness Narrative* Gray Cancino DPM - 07/06/2024 11:10 AM EDT Patient: Johnathan Valentino Sunny : [...] the following treatments for the ulcer of [facility] every other day. Pt is a DM2. Allergies: Allergies Allergen Reactions Metformin Diarrhea and GI intolerance Other Reaction(s): Abdominal Pain, diarrhea, Stomach cramps Vancomycin Rash Past Medical History: Past Medical History: Diagnosis Date Diabetes ([facility]) Hypertension ([facility]) Medications: Current Outpatient Medications: amLODIPine (Norvasc) 5 [...] Partner Violence: Unknown (10/28/2023) Re[facility] from [facility] [place] Safety & Environment Fear of [...] CP, palpitations, irregular rhythms. Old history of [place] and cardiac stents OBJECTIVE LE EXAM: DERM: [...] cool tibia to toes b/l NEURO: 5.[address] monofilament test intact to digits and forefoot bilaterally 125Hz tuning fork diminished to 1st MPJ bilaterally ORTHO: +5/5 DF/PF/IN/EV right, +5/5 DF/PF/IN/EV left. 20 degrees inversion and 10 degrees eversion STJ b/l. Ankle ROM less than 10 degrees b/l. Negative pain on palpation to right hallux ulcer and left foot ulcerations DUSTIN PVR: [place] report reviewed today with findings of mild PVD right-sided DUSTIN TBI of 0.85 0.91 and TBI of right side 0.91 and left 0.84. TBI are normal with DUSTIN suggest mild bilateral arterial occlusive disease ASSESSMENT 15 days postop right and left foot epidermal skin graft 2 ulcerations 1. 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 Foot ulcer, right, with fat layer exposed ([facility]) PLAN Sharp debridement with 15 blade of subcutaneous ulceration to right and foot with active bleeding noted and removal and excision of fibrotic and necrotic tissue to wound and DSD applied with neosporin. Pt to continue with [facility] every other day. Today's procedure is a staged procedure and patient may need further procedures in the future. Gray Cancino DPM documented in this encounterUniversity of Missouri Health [id number] History of Present illness Narrative* Gray Cancino [...] History: Past Medical History: Diagnosis Date Diabetes ([facility]) Hypertension ([facility]) Medications: Current Outpatient Medications: amLODIPine (Norvasc) 5 [...] Partner Violence: Unknown (10/28/2023) Received from [facility] Safety & Environment Fear of Current [...] CP, palpitations, irregular rhythms. Old history of [place] and cardiac stents OBJECTIVE LE EXAM: DERM: [...] cool tibia to toes b/l NEURO: 5.[address] monofilament test intact to digits and [...] condition with diabetic polyneuropathy, 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 ([facility]) 2. Foot ulcer, right, with fat layer exposed ([facility]) PLAN Sharp debridement with 15 blade of subcutaneous ulceration to right and foot with active bleeding noted and removal and excision of fibrotic and necrotic tissue to wound and DSD applied with neosporin. Pt to continue with [facility] every other day. Today's procedure is a staged procedure and patient may need further procedures in the future. Gray Cancino DPM documented in this encounterUniversity of Missouri Health [id number] History of Present illness Narrative* Gray Cancino [...] sugars Patient had DUSTIN PVRs at local [facility] With notable mild PVD He presents [...] History: Past Medical History: Diagnosis Date Diabetes ([facility]) Hypertension ([facility]) Medications: Current Outpatient Medications: amLODIPine (Norvasc) 5 [...] Partner Violence: Unknown (10/28/2023) Received from [facility] Safety & Environment Fear of Current [...] CP, palpitations, irregular rhythms. Old history of [place] and cardiac stents OBJECTIVE LE EXAM: DERM: [...] cool tibia to toes b/l NEURO: 5.[address] monofilament test intact to digits and [...] underlying condition with diabetic polyneuropathy, unspecified whether fpc insulin use ([facility]/HCC) 2. Foot ulcer, right, with fat layer exposed (CMS/HCC) 3. Foot ulcer, left, with fat layer exposed ([facility]/HCC) 4. PVD (peripheral vascular disease) ([facility]) PLAN Decision for surgery today and patient [...] risks, alternatives, benefits, post op complications and fpc expectations were discussed including but not limited to: infection,bone infection,wound dehiscence hardware failure and irritation,wound dehiscence,delay union/mal union/non union of bone. RSDS,neuroma,duty limitations,DVT/PE, [place],nerve damage, scar, loss of sensation, swelling. Pt [...] (date) Gray Cancino DPM documented in this encounterUniversity of Missouri Health [id number] History of Present illness Narrative* Gray Cancino [...] History: Past Medical History: Diagnosis Date Diabetes ([facility]) Hypertension ([facility]) Medications: Current Outpatient Medications: amLODIPine (Norvasc) 5 [...] Partner Violence: Unknown (10/28/2023) Received from [facility] Safety & Environment Fear of Current [...] CP, palpitations, irregular rhythms. Old history of [place] and cardiac stents OBJECTIVE LE EXAM: DERM: [...] cool tibia to toes b/l NEURO: 5.[address] monofilament test intact to digits and forefoot bilaterally 125Hz tuning fork diminished to 1st MPJ bilaterally ORTHO: +5/5 DF/PF/IN/EV right, +5/5 DF/PF/IN/EV left. 20 degrees inversion and 10 degrees eversion STJ b/l. Ankle ROM less than 10 degrees b/l. Negative pain on palpation to right hallux ulcer DUSTIN PVR: [place] report reviewed today with findings of mild PVD right-sided DUSTIN TBI of 0.85 0.91 and TBI of right side 0.91 and left 0.84. TBI are normal with DUSTIN suggest mild bilateral arterial occlusive disease ASSESSMENT 1. 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 Foot ulcer, right, with fat layer exposed ([facility]) 3. Foot ulcer, left, with fat layer exposed ([facility]) PLAN Patient education on condition and treatment of condition. Continues urea cream daily to the right heel fissure and dry skin to feet bilaterally. Reviewed DUSTIN PVRs from [facility] with findings of mild PVD and most [...] preop Gray Cancino DPM documented in this encounterUniversity of Missouri Health [id number] History of Present illness Narrative* Gray Cancino [...] History: Past Medical History: Diagnosis Date Diabetes ([facility]) Hypertension ([facility]) Medications: Current Outpatient Medications: amLODIPine (Norvasc) 5 [...] Partner Violence: Unknown (10/28/2023) Received from [facility] [place] Safety & Environment Fear of [...] CP, palpitations, irregular rhythms. Old history of [place] and cardiac stents OBJECTIVE LE EXAM: DERM: [...] cool tibia to toes b/l NEURO: 5.[address] monofilament test intact to digits and forefoot bilaterally 125Hz tuning fork diminished to 1st MPJ bilaterally ORTHO: +5/5 DF/PF/IN/EV right, +5/5 DF/PF/IN/EV left. 20 degrees inversion and 10 degrees eversion STJ b/l. Ankle ROM less than 10 degrees b/l. Negative pain on palpation to right hallux ulcer DUSTIN PVR: [place] report reviewed today with findings of mild PVD right-sided DUSTIN TBI of 0.850.91 and TBI of right side 0.91 and left 0.84. TBI are normal with DUSTIN suggest mild bilateral arterial occlusive disease ASSESSMENT 1. 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 Foot ulcer, right, with fat layer exposed ([facility]) 3. PVD (peripheral vascular disease) ([facility]) 4. Xerosis cutis PLAN Patient education on condition and treatment of condition. Continues urea cream daily to the right heel fissure and dry skin to feet bilaterally. Reviewed DUSTIN PVRs from [facility] with findings of mild PVD and most likely no intervention at this time Sharp debridement with 15 blade of subcutaneous ulceration to right foot with active bleeding notedand removal and excision of fibrotic and necrotic tissue to wound and DSD applied with neosporin. Pt to continue with [employer] daily Gray Cancino DPM documented in this encounterUniversity of Missouri Health [id number] History of Present illness Narrative* Gray Cancino [...] History: Past Medical History: Diagnosis Date Diabetes ([facility]) Hypertension ([facility]) Medications: Current Outpatient Medications: amLODIPine (Norvasc) 5 [...] Partner Violence: Unknown (10/28/2023) Received from [facility] Fear of Current [...] CP, palpitations, irregular rhythms. Old history of [place] and cardiac stents OBJECTIVE LE EXAM: DERM: [...] cool tibia to toes b/l NEURO: 5.[address] monofilament test intact to digits and [...] condition with diabetic polyneuropathy, 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 ([facility]) 2. Foot ulcer, right, with fat layer exposed ([facility]) 3. PVD (peripheral vascular disease) ([facility]) PLAN Patient education on condition and treatment of condition. Continues urea cream daily to the right heel fissure and dry skin to feet bilaterally. Reviewed DUSTIN PVRs from [facility] with findings of mild PVD and most likely no intervention at this time Sharp debridement with 15 blade of subcutaneous ulceration to right foot with active bleeding notedand removal and excision of fibrotic and necrotic tissue to wound and DSD applied with neosporin. Pt to continue with Medihoney daily Gray Cancino DPM documented in this encounterUniversity of Missouri Health [id number] History of Present illness Narrative* Gray Cancino [...] History: Past Medical History: Diagnosis Date Diabetes ([facility]) Hypertension ([facility]) Medications: Current Outpatient Medications: amLODIPine (Norvasc) 5 [...] Partner Violence: Unknown (10/28/2023) Received from [facility] Fear of Current [...] CP, palpitations, irregular rhythms. Old history of [place] and cardiac stents OBJECTIVE LE EXAM: DERM: [...] cool tibia to toes b/l NEURO: 5.[address] monofilament test intact to digits and forefoot bilaterally 125Hz tuning fork diminished to 1st MPJ bilaterally ORTHO: +5/5 DF/PF/IN/EV right, +5/5 DF/PF/IN/EV left. 20 degrees inversion and 10 degrees eversion STJ b/l. Ankle ROM less than 10 degrees b/l. Negative pain on palpation to right hallux ulcer DUSTIN PVR: [place] report reviewed today with findings of mild PVD right-sided DUSTIN TBI of 0.850.91 and TBI of right side 0.91 and left 0.84. TBI are normal with DUSTIN suggest mild bilateral arterial occlusive disease ASSESSMENT 1. Xerosis cutis 2. Skin fissure 3. Diabetes 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 polyneuropathy, 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 ([facility]) 4. Foot ulcer, right, with fat layer exposed ([facility]) 5. PVD (peripheral vascular disease) ([facility]) PLAN Patient education on condition and treatment of condition. Continues urea cream daily to the right heel fissure and dry skin to feet bilaterally. Reviewed DUSTIN PVRs from [facility] with findings of mild PVD and most likely no intervention at this time Sharp debridement with 15 blade of subcutaneous ulceration to right foot with active bleeding notedand removal and excision of fibrotic and necrotic tissue to wound and DSD applied with neosporin. Pt to continue with Medihoney daily Gray Cancino DPM documented in this encounterUniversity of Missouri Health [id number] History of Present illness Narrative* Gray Cancino [...] History: Past Medical History: Diagnosis Date Diabetes ([facility]) Hypertension ([facility]) Medications: Current Outpatient Medications: amLODIPine (Norvasc) 5 [...] Partner Violence: Unknown (10/28/2023) Received from [facility] Fear of Current [...] CP, palpitations, irregular rhythms. Old history of [place] and cardiac stents OBJECTIVE LE EXAM: DERM: [...] cool tibia to toes b/l NEURO: 5.[address] monofilament test intact to digits and forefoot bilaterally 125Hz tuning fork diminished to 1st MPJ bilaterally ORTHO: +5/5 DF/PF/IN/EV right, +5/5 DF/PF/IN/EV left. 20 degrees inversion and 10 degrees eversion STJ b/l. Ankle ROM less than 10 degrees b/l. Negative pain on palpation to right hallux ulcer DUSTIN PVR: ASSESSMENT 1. Xerosis cutis 2. Skin fissure 3. PVD (peripheral vascular disease) ([facility]) 4. Diabetes 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 polyneuropathy, unspecified whether fpc insulin use ([facility]) 5. Foot ulcer, right, with fat layer exposed ([facility]) PLAN Patient education on condition and treatment of condition. Continues urea cream daily to the right heel fissure and dry skin to feet bilaterally. Pharmacy wasunable to get the medication therefore recommend fyfv-gsa-deqkccs cream today to apply twice daily Patient awaits DUSTIN PVRs from [facility] Sharp debridement with 15 blade of subcutaneous ulceration to right foot with active bleeding notedand removal and excision of fibrotic and necrotic tissue to wound and DSD applied with neosporin. Pt to continue with Amerigel daily Gray Cancino DPM documented in this encounterUniversity of Missouri Health [id number] History of Present illness Narrative* Gray Cancino DPM - 05/04/2024 10:20 AM EDT Patient: Johnathan Correa : 1960 [...] History: Past Medical History: Diagnosis Date Diabetes ([facility]) Hypertension ([facility]) Medications: Current Outpatient Medications: amLODIPine (Norvasc) 5 [...] Partner Violence: Unknown (10/28/2023) Received from [facility] Fear of Current [...] CP, palpitations, irregular rhythms. Old history of [place] and cardiac stents OBJECTIVE LE EXAM: DERM: [...] cool tibia to toes b/l NEURO: 5.[address] monofilament test intact to digits and forefoot bilaterally 125Hz tuning fork diminished to 1st MPJ bilaterally ORTHO: +5/5 DF/PF/IN/EV right, +5/5 DF/PF/IN/EV left. 20 degrees inversion and 10 degrees eversion STJ b/l. Ankle ROM less than 10 degrees b/l. Negative pain on palpation to right hallux ulcer ASSESSMENT 1. Foot ulcer, right, with fat layer exposed ([facility]) 2. Xerosis cutis 3. Skin fissure 4. Diabetes 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 polyneuropathy, unspecified whether fpc insulin use ([facility]) 5. PVD (peripheral vascular disease) ([facility]) PLAN Patient education on condition and treatment of condition. Discussed application of hydrating cream to feet twice daily and to not place between toes and to apply prior to bed in evenings and to observe for any redness to feet or red streaks or drainage to feet. Patient to consider ynhb-caj-sadazsp treatments for medication or use of urea [...] excoriation Betadine daily DUSTIN PVRs ordered at [facility] Gray Cancino DPM documented in this encounterUniversity of Missouri Health [id number] Hospital Discharge instructions Patient Education 03/08/2024 08:44:04 [...] therapy. Follow these instructions at home: Take hksd-xoz-mlhoqki and prescription medicines only as told by [...] provider. Document Revised: 04/24/2021 Document Reviewed: 04/24/2021 [employer] Patient Education 2022 [email or web address] Follow Up Care 09/15/2023 08:45:51 With:Carlos LIZAMA, Lety Scott, URL, URO Address: [address] [phone] When: Unknown [facility] 07-03-2024 NotePatient Education Urology Hypogonadism, Male Male [...] Follow these instructions at home: ? Take cfts-gcu-lhljetu and prescription medicines only as told by [...] care provider. Document Revised: (more content not included)...[facility] 09-15-2023 Hospital Discharge instructions Patient Education [...] Follow these instructions at home: Medicines Take hjec-woh-ccfwrak and prescription medicines only as told by [...] provider. Document Revised: 11/19/2021 Document Reviewed: 11/19/2021 [employer] Patient Education 2022 [email or web address] Follow Up Care 06/09/2023 08:31:20 With:Carlos LIZAMA, SHAYY Hernandes, URO Address: [address] [place] [phone] When: Unknown Comments:3 mos w/ PSA, T level, and HCT [facility] 12-01-2023 Evaluation note* Encounter Date Diagnosis Assessment [...] to encourage exercise and elevate legs prn [facility] Other 07-12-2023 Evaluation note* Encounter Date Diagnosis Assessment Notes Treatment Notes Treatment Clinical Notes Mar, Abdominal pain (ICD-10 - R10.9) [facility] Other 06-28-2023 Hospital Discharge instructions Follow Up Care 03/03/2023 10:42:41 With:Carlos LIZAMA, SHAYY Hernandes, URO Address: [address] [place] [phone] When:Within 2 Week(s) Comments:Will return in 2wks for next injection.Will see Dr Gonzalez end of May with PSA T & HCT & HGB. [facility] 06-28-2023 Hospital Discharge instructions Patient Education 03/03/2023 [...] Follow these instructions at home: Medicines Take yvxa-vpb-dmmgujn and prescription medicines only as told by [...] provider. Document Revised: 11/19/2021 Document Reviewed: 11/19/2021 [employer] Patient Education 2022 [email or web address] Follow Up Care 11/25/2022 10:57:18 With:Carlos LIZAMA, SHAYY Hernandes, URO Address: When: Unknown [facility] 04-05-2023 Evaluation note* Encounter Date Diagnosis Assessment Notes Treatment Notes Treatment Clinical Notes Dec, Essential (primary) hypertension (ICD-10 - I10) chronic problem - has followup w cardio in January. Dec,Type 2 diabetes mellitus with hyperglycemia, without long-term current use of insulin (ICD-10 - E11.65)states average glucose is 150-180. will add actose and check cost. [facility] Other 03-22-2023 Hospital Discharge instructions Patient Education [...] 11/29/2001 Document Revised: 12/14/2019 Document Reviewed: 07/19/2017 [employer] Patient Education 2019 [email or web address] Follow Up Care 10/13/2022 08:47:51 With:Carlos LIZAMA, SHAYY Hernandes, URO Address: When: Unknown [facility] 01-04-2023 Hospital Discharge instructions Patient Education 09/09/2022 [...] Follow these instructions at home: Medicines Take sxxh-gve-bcnwojc and prescription medicines only as told by [...] 08/20/2001 Document Revised: 08/05/2018 Document Reviewed: 09/08/2017 [employer] Patient Education 2019 [email or web address] [facility] 12-14-2022 Hospital Discharge instructions Patient Education 08/19/2022 [...] Follow these instructions at home: Medicines Take hueu-kst-gcbsypz and prescription medicines only as told by [...] 08/20/2001 Document Revised: 08/05/2018 Document Reviewed: 09/08/2017 [employer] Patient Education [facility]. Follow Up Care 08/10/2022 15:26:30 With:Lety Gonzalez MD, SHAYY, URO Address: When:3 months Comments:W/ PSA/testosterone/ & hemaglobin [facility] 09-21-2022 Hospital Discharge instructions Follow Up Care 05/27/2022 09:36:06 With:Lety Gonzalez MD, SHAYY, URO Address: When: Unknown [facility] chiyw complaint+Reason for visit Narrative* Chief Complaint follow up Referred by Dr. Jeffrey for PVD Referral Dr. Jeffrey / no meterReason for VisitClaudication Fatigue Hypertension Type II diabetes mellitus Bilateral lower extremity edema Hemosiderin pigmentation of lower extremity due to varicose veins Obesity Symptomatic varicose veins of both lower extremities Wound of foot [facility] Work Phone: Chief complaint+Reason for [...] veins Hypertension Obesity Type II diabetes mellitus [facility] Work Phone: Evaluation + Plan note Future Appointments Appointment Date:01/06/2022 08:00:00 AM Scheduled Provider: Location:[facility] Appointment Type:URO Nurse Visit Appointment Date:05/12/2022 08:45:00 AM Scheduled Provider:Venkat Proctor Jr., MD Location:[facility] Appointment Type:URO Office Visit [facility] evaluation + Plan note Future Appointments Appointment Date:02/03/2022 08:30:00 AM Scheduled Provider: Location:[facility] Appointment Type:URO Nurse Visit Appointment Date:05/12/2022 08:45:00 AM Scheduled Provider:Venkat Proctor Jr., MD Location:[facility] Appointment Type:URO Office Visit [facility] evaluation + Plan note Future Appointments Appointment Date:03/03/2022 08:00:00 AM Scheduled Provider: Location:[facility] Appointment Type:URO Nurse Visit Appointment Date:05/12/2022 08:45:00 AM Scheduled Provider:Venkat Proctor Jr., MD Location:[facility] Appointment Type:URO Office Visit [facility] evaluation + Plan note Future Appointments Appointment Date:03/31/2022 08:00:00 AM Scheduled Provider: Location:[facility] Appointment Type:URO Nurse Visit Appointment Date:04/28/2022 08:00:00 AM Scheduled Provider: Location:[facility] Appointment Type:URO Nurse Visit Appointment Date:05/26/2022 08:15:00 AM Scheduled Provider:Venkat Proctor Jr., MD Location:[facility] Appointment Type:URO Office Visit [facility] evaluation + Plan note Future Appointments Appointment Date:04/28/2022 08:00:00 AM Scheduled Provider: Location:[facility] Appointment Type:URO Nurse Visit Appointment Date:05/26/2022 08:15:00 AM Scheduled Provider:Venkat Proctor Jr., MD Location:[facility] Appointment Type:URO Office Visit [facility] evaluation + Plan note Future Appointments Appointment Date:06/24/2022 08:00:00 AM Scheduled Provider: Location:[facility] Appointment Type:URO Nurse Visit Appointment Date:07/29/2022 08:00:00 AM Scheduled Provider:Lety Gonzalez MD Location:[facility] Appointment Type:URO Office Visit [facility] evaluation + Plan note Future Appointments Appointment Date:07/22/2022 08:00:00 AM Scheduled Provider: Location:[facility] Appointment Type:URO Nurse Visit Appointment Date:08/05/2022 08:00:00 AM Scheduled Provider:[facility] Type[facility] Office Visit [facility] evaluation + Plan note Future Appointments Appointment Date:09/02/2022 08:30:00 AM Scheduled Provider: Location:[facility] Appointment Type:URO Nurse Visit Diagnostic Tests Pending * PSA Total 08/19/22 * Testosterone Level Total 08/19/22 [facility] evaluation + Plan note Future Appointments Appointment Date:09/16/2022 08:15:00 AM Scheduled Provider: Location:[facility] Appointment Type:URO Nurse Visit [facility] evaluation + Plan note Future Appointments Appointment Date:09/30/2022 08:00:00 AM Scheduled Provider: Location:[facility] Appointment Type:URO Nurse Visit [facility] evaluation + Plan note Future Appointments Appointment Date:10/13/2022 08:30:00 AM Scheduled Provider: Location:[facility] Appointment Type:URO Nurse Visit Appointment Date:10/28/2022 08:00:00 AM Scheduled Provider: [facility] App[facility] Type:URO Nurse Visit [facility] evaluation + Plan note Future Appointments Appointment Date:10/28/2022 08:00:00 AM Scheduled Provider: Location:[facility] Appointment Type:URO Nurse Visit Appointment Date:11/11/2022 08:00:00 AM Scheduled Provider: Location:[facility] Appointment Type:URO Nurse Visit Appointment Date:11/25/2022 10:15:00 AM Scheduled Provider:Lety Gonzalez MD Location:[facility] Appointment Type:URO Office Visit [facility] evaluation + Plan note Future Appointments Appointment Date:11/11/2022 08:00:00 AM Scheduled Provider: Location:[facility] Appointment Type:URO Nurse Visit Appointment Date:11/25/2022 10:15:00 AM Scheduled Provider:Lety Gonzalez MD Location:[facility] Appointment Type:URO Office Visit [facility] evaluation + Plan note Future Appointments Appointment Date:11/18/2022 08:00:00 AM Scheduled Provider: Location:[facility] Appointment Type:URO Nurse Visit Appointment Date:11/25/2022 10:15:00 AM Scheduled Provider:Lety Gonzalez MD Location:[facility] Appointment Type:URO Office Visit Diagnostic Tests Pending * CBC w/ Auto Diff 11/11/22 * Testosterone Level Total 11/11/22 [facility] evaluation + Plan note Future Appointments Appointment Date:11/25/2022 10:15:00 AM Scheduled Provider:Lety Gonzalez MD Location:[facility] Appointment Type:URO Office Visit [facility] evaluation + Plan note Future Appointments Appointment Date:11/25/2022 10:15:00 AM Scheduled Provider:Lety Gonzalez MD Location:[facility] Appointment Type:URO Office Visit Diagnostic Tests Pending * [facility] Appointment Date:12/09/2022 08:00:00 AM Scheduled Provider: Location:[facility] Appointment Type:URO Nurse Visit Appointment Date:03/03/2023 09:45:00 AM Scheduled Provider:Lety Gonzalez MD Location:[facility] Appointment Type:URO Office Visit Diagnostic Tests Pending * Testosterone Level Total 11/25/22 * PSA Total 11/25/22 * Hemoglobin 11/25/22 [facility] evaluation + Plan note Future Appointments Appointment Date:12/23/2022 08:00:00 AM Scheduled Provider: Location:[facility] Appointment Type:URO Nurse Visit Appointment Date:03/03/2023 09:45:00 AM Scheduled Provider:Lety Gonzalez MD Location:[facility] Appointment Type:URO Office Visit [facility] evaluation + Plan note Future Appointments Appointment Date:01/06/2023 08:00:00 AM Scheduled Provider: Location:[facility] Appointment Type:URO Nurse Visit Appointment Date:03/03/2023 09:45:00 AM Scheduled Provider:Lety Gonzalez MD Location:[facility] Appointment Type:URO Office Visit [facility] evaluation + Plan note Future Appointments Appointment Date:01/19/2023 08:30:00 AM Scheduled Provider: Location:[facility] Appointment Type:URO Nurse Visit Appointment Date:03/03/2023 09:45:00 AM Scheduled Provider:Lety Gonzalez MD Location:[facility] Appointment Type:URO Office Visit [facility] evaluation + Plan note Future Appointments Appointment Date:02/17/2023 08:00:00 AM Scheduled Provider: Location:[facility] Appointment Type:URO Nurse Visit Appointment Date:03/03/2023 09:45:00 AM Scheduled Provider:Lety Gonzalez MD Location:[facility] Appointment Type:URO Office Visit [facility] evaluation + Plan note Future Appointments Appointment Date:02/24/2023 08:00:00 AM Scheduled Provider: Location:[facility] Appointment Type:URO Nurse Visit Appointment Date:03/03/2023 09:45:00 AM Scheduled Provider:Lety Gonzalez MD Location:[facility] Appointment Type:URO Office Visit [facility] evaluation + Plan note Future Appointments Appointment Date:03/03/2023 09:45:00 AM Scheduled Provider:Lety Gonzalez MD Location:[facility] Appointment Type:URO Office Visit [facility] evaluation + Plan note Future Appointments Appointment Date:03/03/2023 09:45:00 AM Scheduled Provider:Lety Gonzalez MD Location:[facility] Appointment Type:URO Office Visit Diagnostic Tests Pending * Testosterone Level Total [facility] Appointment Date:03/17/2023 08:00:00 AM Scheduled Provider: Location:[facility] Appointment Type:URO Nurse Visit Appointment Date:06/09/2023 08:45:00 AM Scheduled Provider:Lety Gonzalez MD Location:[facility] Appointment Type:URO Office Visit Diagnostic Tests Pending * PSA Free & Total 03/03/23 [facility] evaluation + Plan note Future Appointments Appointment Date:03/31/2023 08:00:00 AM Scheduled Provider: Location:[facility] Appointment Type:URO Nurse Visit Appointment Date:06/09/2023 08:45:00 AM Scheduled Provider:Lety Gonzalez MD Location:[facility] Appointment Type:URO Office Visit [facility] evaluation + Plan note Future Appointments Appointment Date:04/14/2023 08:00:00 AM Scheduled Provider: Location:[facility] Appointment Type:URO Nurse Visit Appointment Date:06/09/2023 08:45:00 AM Scheduled Provider:Lety Gonzalez MD [facility] App[facility] Type:URO Office Visit [facility] evaluation + Plan note Future Appointments Appointment Date:04/28/2023 08:30:00 AM Scheduled Provider: Location:[facility] Appointment Type:URO Nurse Visit Appointment Date:05/12/2023 08:00:00 AM Scheduled Provider: [facility] Appoint[facility] Type:URO Nurse Visit Appointment Date:05/26/2023 08:00:00 AM Scheduled Provider: Location:[facility] Appointment Type:URO Nurse Visit Appointment Date:06/09/2023 08:45:00 AM Scheduled Provider:Lety Gonzalez MD Location:[facility] Appointment Type:URO Office Visit [facility] evaluation + Plan note Future Appointments Appointment Date:05/12/2023 08:00:00 AM Scheduled Provider: Location:[facility] Appointment Type:URO Nurse Visit Appointment Date:05/26/2023 08:00:00 AM Scheduled Provider: Location:[facility] Appointment Type:URO Nurse Visit Appointment Date:06/09/2023 08:45:00 AM Scheduled Provider:Lety Gonzalez MD Location:[facility] Appointment Type:URO Office Visit Diagnostic Tests Pending * Hemoglobin and Hematocrit 04/28/23 * PSA Free & Total 04/28/23 * Testosterone Level Total 04/28/23 [facility] evaluation + Plan note Future Appointments Appointment Date:05/26/2023 08:00:00 AM Scheduled Provider: [facility] App[facility] Type:URO Nurse Visit Appointment Date:06/02/2023 08:00:00 AM Scheduled Provider: [facility] Type[facility] Nurse Visit Appointment Date:06/09/2023 08:45:00 AM Scheduled Provider:Lety Gonzalez MD [facility] App[facility] Type:URO Office Visit [facility] evaluation + Plan note Future Appointments Appointment Date:06/02/2023 08:00:00 AM Scheduled Provider: Location:[facility] [place] Appointment Type:URO Nurse Visit Appointment Date:06/09/2023 08:45:00 AM Scheduled Provider:Lety Gonzalez MD Location:[facility] [place] Appointment Type:URO Office Visit [facility] evaluation + Plan note Future Appointments Appointment Date:07/07/2023 08:00:00 AM Scheduled Provider: Location:[facility] [place] Appointment Type:URO Nurse Visit Appointment Date:07/21/2023 08:00:00 AM Scheduled Provider: Location:[facility] [place] Appointment Type:URO Nurse Visit Appointment Date:08/04/2023 08:00:00 AM Scheduled Provider: Location:[facility] [place] Appointment Type:URO Nurse Visit Appointment Date:09/01/2023 08:00:00 AM Scheduled Provider: Location:[facility] [place] Appointment Type:URO Nurse Visit Appointment Date:09/15/2023 08:00:00 AM Scheduled Provider:Lety Gonzalez MD Location:[facility] [place] Appointment Type:URO Office Visit [facility] evaluation + Plan note Future Appointments Appointment Date:07/21/2023 08:00:00 AM Scheduled Provider: Location:[facility] [place] Appointment Type:URO Nurse Visit Appointment Date:08/04/2023 08:00:00 AM Scheduled Provider: Location:[facility] [place] Appointment Type:URO Nurse Visit Appointment Date:09/01/2023 08:00:00 AM Scheduled Provider: Location:[facility] [place] Appointment Type:URO Nurse Visit Appointment Date:09/15/2023 08:00:00 AM Scheduled Provider:Lety Gonzalez MD Location:[facility] [place] Appointment Type:URO Office Visit [facility] evaluation + Plan note Future Appointments Appointment Date:08/04/2023 08:00:00 AM Scheduled Provider: Location:[facility] Appointment Type:URO Nurse Visit Appointment Date:09/01/2023 08:00:00 AM Scheduled Provider: Location:[facility] Appointment Type:URO Nurse Visit Appointment Date:09/15/2023 08:00:00 AM Scheduled Provider:Ltey Gonzalez MD Location:[facility] Appointment Type:URO Office Visit [facility] evaluation + Plan note Future Appointments Appointment Date:09/01/2023 08:00:00 AM Scheduled Provider: Location:[facility] Appointment Type:URO Nurse Visit Appointment Date:09/15/2023 08:00:00 AM Scheduled Provider:Lety Gonzalez MD Location:[facility] Appointment Type:URO Office Visit [facility] evaluation + Plan note Future Appointments Appointment Date:09/15/2023 08:00:00 AM Scheduled Provider:Lety Gonzalez MD Location:[facility] Appointment Type:URO Office Visit [facility] evaluation + Plan note Future Appointments Appointment Date:09/15/2023 08:00:00 AM Scheduled Provider:Lety Gonzalez MD Location:[facility] Appointment Type:URO Office Visit Diagnostic Tests Pending * [facility] Appointment Date:09/29/2023 08:00:00 AM Scheduled Provider: Location:[facility] Appointment Type:URO Nurse Visit Appointment Date:03/01/2024 10:00:00 AM Scheduled Provider:Lety Gonzalez MD Location:[facility] Appointment Type:URO Office Visit Future Scheduled Tests Laboratory* PSA Screen, Total 12/15/23 * Hematocrit 09/15/23 * Testosterone Level Total 12/15/23 [facility] evaluation + Plan note Future Appointments Appointment Date:03/01/2024 10:00:00 AM Scheduled Provider:Lety Gonzalez MD Location:[facility] Appointment Type:URO Office Visit Future Scheduled Tests Laboratory* PSA Screen, Total 12/15/23 * Hematocrit 09/15/23 * Testosterone Level Total 12/15/23 [facility] evaluation + Plan note Future Appointments Appointment Date:11/03/2023 08:00:00 AM Scheduled Provider: Location:[facility] Appointment Type:URO Nurse Visit Appointment Date:03/01/2024 10:00:00 AM Scheduled Provider:Lety Gonzalez MD Location:[facility] Appointment Type:URO Office Visit Future Scheduled Tests Laboratory* PSA Screen, Total 12/15/23 * Hematocrit 09/15/23 * Testosterone Level Total 12/15/23 [facility] evaluation + Plan note Future Appointments Appointment Date:11/16/2023 09:00:00 AM Scheduled Provider: Location:[facility] Appointment Type:URO Nurse Visit Appointment Date:03/01/2024 10:00:00 AM Scheduled Provider:Lety Gonzalez MD Location:[facility] Appointment Type:URO Office Visit Future Scheduled Tests Laboratory* PSA Screen, Total 12/15/23 * Hematocrit 09/15/23 * Testosterone Level Total 12/15/23 [facility] evaluation + Plan note Future Appointments Appointment Date:12/24/2023 08:00:00 AM Scheduled Provider: Location:[facility] Appointment Type:URO Nurse Visit Appointment Date:03/01/2024 10:00:00 AM Scheduled Provider:Lety Gonzalez MD Location:[facility] Appointment Type:URO Office Visit Future Scheduled Tests Laboratory* PSA Screen, Total 12/15/23 * Hematocrit 09/15/23 * Testosterone Level Total 12/15/23 [facility] evaluation + Plan note Future Appointments Appointment Date:12/14/2023 08:30:00 AM Scheduled Provider: Location:[facility] Appointment Type:URO Nurse Visit Appointment Date:03/01/2024 10:00:00 AM Scheduled Provider:Lety Gonzalez MD Location:[facility] Appointment Type:URO Office Visit Future Scheduled Tests Laboratory* PSA Screen, Total 12/15/23 * Hematocrit 09/15/23 * Testosterone Level Total 12/15/23 [facility] evaluation + Plan note Future Appointments Appointment Date:12/28/2023 10:00:00 AM Scheduled Provider: Location:[facility] Appointment Type:URO Nurse Visit Appointment Date:03/01/2024 10:00:00 AM Scheduled Provider:Lety Gonzalez MD Location:[facility] Appointment Type:URO Office Visit Future Scheduled Tests Laboratory* PSA Screen, Total 12/15/23 * Hematocrit 09/15/23 * Testosterone Level Total 12/15/23 [facility] evaluation + Plan note Future Appointments Appointment Date:01/11/2024 08:30:00 AM Scheduled Provider: Location:[facility] Appointment Type:URO Nurse Visit Appointment Date:03/01/2024 10:00:00 AM Scheduled Provider:Lety Gonzalez MD Location:[facility] Appointment Type:URO Office Visit Future Scheduled Tests Laboratory* PSA Screen, Total 12/15/23 * Hematocrit 09/15/23 * Testosterone Level Total 12/15/23 [facility] evaluation + Plan note Future Appointments Appointment Date:01/25/2024 08:45:00 AM Scheduled Provider: Location:[facility] Appointment Type:URO Nurse Visit Appointment Date:03/01/2024 10:00:00 AM Scheduled Provider:Lety Gonzalez MD Location:[facility] Appointment Type:URO Office Visit Future Scheduled Tests Laboratory* PSA Screen, Total 12/15/23 * Hematocrit 09/15/23 * Testosterone Level Total 12/15/23 [facility] evaluation + Plan note Future Appointments Appointment Date:02/09/2024 08:00:00 AM Scheduled Provider: Location:[facility] Appointment Type:URO Nurse Visit Appointment Date:03/01/2024 10:00:00 AM Scheduled Provider:Lety Gonzalez MD Location:[facility] Appointment Type:URO Office Visit Future Scheduled Tests Laboratory* PSA Screen, Total 12/15/23 * Hematocrit 09/15/23 * Testosterone Level Total 12/15/23 [facility] evaluation + Plan note Future Appointments Appointment Date:02/23/2024 08:00:00 AM Scheduled Provider: Location:[facility] Appointment Type:URO Nurse Visit Appointment Date:03/08/2024 08:15:00 AM Scheduled Provider:Lety Gonzalez MD Location:[facility] Appointment Type:URO Office Visit Future Scheduled Tests Laboratory* PSA Screen, Total 12/15/23 * Hematocrit 09/15/23 * Testosterone Level Total 12/15/23 [facility] evaluation + Plan note Future Appointments Appointment Date:03/01/2024 08:00:00 AM Scheduled Provider: Location:[facility] Appointment Type:URO Nurse Visit Appointment Date:03/08/2024 08:15:00 AM Scheduled Provider:Lety Gonzalez MD Location:[facility] Appointment Type:URO Office Visit Future Scheduled Tests Laboratory* PSA Screen, Total 12/15/23 * Hematocrit 09/15/23 * Testosterone Level Total 12/15/23 [facility] evaluation + Plan note Future Appointments Appointment Date:03/08/2024 08:15:00 AM Scheduled Provider:Lety Gonzalez MD Location:[facility] Appointment Type:URO Office Visit [facility] evaluation + Plan note Future Appointments Appointment Date:03/08/2024 08:15:00 AM Scheduled Provider:Lety Gonzalez MD Location:[facility] Appointment Type:URO Office Visit Diagnostic Tests Pending * Testosterone Level Total [facility] Appointment Date:03/08/2024 08:15:00 AM Scheduled Provider:Lety Gonzalez MD Location:[facility] Appointment Type:URO Office Visit Diagnostic Tests Pending * HgbA1c 03/01/24 [facility] App[facility]ments Appointment Date:03/22/2024 08:30:00 AM Scheduled Provider: Location:[facility] Appointment Type:URO Nurse Visit Appointment Date:04/05/2024 08:00:00 AM Scheduled Provider: Location:[facility] Appointment Type:URO Nurse Visit Appointment Date:08/23/2024 10:00:00 AM Scheduled Provider:Lety Gonzalez MD Location:[facility] Appointment Type:URO Office Visit Future Scheduled Tests Laboratory* Testosterone Level Total 09/08/24 [facility] evaluation + Plan note Future Appointments Appointment Date:04/05/2024 08:00:00 AM Scheduled Provider: Location:[facility] Appointment Type:URO Nurse Visit Appointment Date:08/23/2024 10:00:00 AM Scheduled Provider:Lety Gonzalez MD Location:[facility] Appointment Type:URO Office Visit Future Scheduled Tests Laboratory* Testosterone Level Total 09/08/24 [facility] evaluation + Plan note Future Appointments Appointment Date:04/19/2024 08:00:00 AM Scheduled Provider: Location:[facility] Appointment Type:URO Nurse Visit Appointment Date:08/23/2024 10:00:00 AM Scheduled Provider:Lety Gonzalez MD Location:[facility] Appointment Type:URO Office Visit Future Scheduled Tests Laboratory* Testosterone Level Total 09/08/24 [facility] evaluation + Plan note Future Appointments Appointment Date:05/03/2024 09:00:00 AM Scheduled Provider: Location:[facility] Appointment Type:URO Nurse Visit Appointment Date:08/23/2024 10:00:00 AM Scheduled Provider:Lety Gonzalez MD [facility] Appointment Type:URO Office Visit Future Scheduled Tests Laboratory* Testosterone Level Total 09/08/24 [facility] evaluation + Plan note Future Appointments Appointment Date:05/17/2024 08:00:00 AM Scheduled Provider: Location:[facility] Appointment Type:URO Nurse Visit Appointment Date:08/23/2024 10:00:00 AM Scheduled Provider:Lety Gonzalez MD Location[facility] Appointment Type:URO Office Visit Future Scheduled Tests Laboratory* Testosterone Level Total 09/08/24 [facility] evaluation + Plan note Future Appointments Appointment Date:05/31/2024 08:00:00 AM Scheduled Provider: Location:[facility] Appointment Type:URO Nurse Visit Appointment Date:08/23/2024 10:00:00 AM Scheduled Provider:Lety Gonzalez MD Location[facility] Appointment Type:URO Office Visit Future Scheduled Tests Laboratory* Testosterone Level Total 09/08/24 [facility] evaluation + Plan note Future Appointments Appointment Date:06/14/2024 08:00:00 AM Scheduled Provider: Location[facility] Appointment Type:URO Nurse Visit Appointment Date:06/28/2024 08:00:00 AM Scheduled Provider: Location[facility] Appointment Type:URO Nurse Visit Appointment Date:07/12/2024 08:00:00 AM Scheduled Provider: Location:[facility] [place] Appointment Type:URO Nurse Visit Appointment Date:07/26/2024 08:00:00 AM Scheduled Provider: Location:[facility] [place] Appointment Type:URO Nurse Visit Appointment Date:08/09/2024 08:00:00 AM Scheduled Provider: Location:[facility] [place] Appointment Type:URO Nurse Visit Appointment Date:08/23/2024 10:00:00 AM Scheduled Provider:Lety Gonzalez MD Location:[facility] [place] Appointment Type:URO Office Visit Future Scheduled Tests Laboratory* Testosterone Level Total 09/08/24 [facility] evaluation + Plan note Future Appointments Appointment Date:06/28/2024 08:00:00 AM Scheduled Provider: Location:[facility] [place] Appointment Type:URO Nurse Visit Appointment Date:07/12/2024 08:00:00 AM Scheduled Provider: Location:[facility] [place] Appointment Type:URO Nurse Visit Appointment Date:07/26/2024 08:00:00 AM Scheduled Provider: Location:[facility] [place] Appointment Type:URO Nurse Visit Appointment Date:08/09/2024 08:00:00 AM Scheduled Provider: Location:[facility] [place] Appointment Type:URO Nurse Visit Appointment Date:08/23/2024 10:00:00 AM Scheduled Provider:Lety Gonzalez MD Location:[facility] [place] Appointment Type:URO Office Visit Appointment Date:08/29/2024 09:00:00 AM Scheduled Provider: Location:[facility] [place] Appointment Type:URO Nurse Visit Appointment Date:09/20/2024 09:45:00 AM Scheduled Provider:Lety Gonzalez MD Location:[facility] [place] Appointment Type:URO Office Visit Future Scheduled Tests Laboratory* Testosterone Level Total 09/08/24 [facility] evaluation + Plan note Future Appointments Appointment Date:07/12/2024 08:00:00 AM Scheduled Provider: Location:[facility] [place] Appointment Type:URO Nurse Visit Appointment Date:07/26/2024 08:00:00 AM Scheduled Provider: Location:[facility] [place] Appointment Type:URO Nurse Visit Appointment Date:08/09/2024 08:00:00 AM Scheduled Provider: Location:[facility] Appointment Type:URO Nurse Visit Appointment Date:08/23/2024 10:00:00 AM Scheduled Provider:Lety Gonzalez MD Location[facility] Appointment Type:URO Office Visit Appointment Date:08/29/2024 09:00:00 AM Scheduled Provider: Location:[facility] Appointment Type:URO Nurse Visit Appointment Date:09/20/2024 09:45:00 AM Scheduled Provider:Lety Gonzalez MD Location:[facility] Appointment Type:URO Office Visit Future Scheduled Tests Laboratory* Testosterone Level Total 09/08/24 [facility] evaluation + Plan note Future Appointments Appointment Date:08/29/2024 09:00:00 AM Scheduled Provider: Location:[facility] Appointment Type:URO Nurse Visit Appointment Date:09/20/2024 09:45:00 AM Scheduled Provider:Lety Gonzalez MD Location:[facility] Appointment Type:URO Office Visit Future Scheduled Tests Laboratory* Testosterone Level Total 09/08/24 [facility] evaluation + Plan note Future Appointments Appointment Date:09/07/2024 09:00:00 AM Scheduled Provider: Location:[facility] Appointment Type:URO Nurse Visit Appointment Date:09/13/2024 08:00:00 AM Scheduled Provider: Location:[facility] Appointment Type:URO Nurse Visit Appointment Date:09/20/2024 09:45:00 AM Scheduled Provider:Lety Gonzalez MD Location:[facility] Appointment Type:URO Office Visit Future Scheduled Tests Laboratory* Testosterone Level Total 09/08/24 [facility] evaluation + Plan note Future Appointments Appointment Date:09/13/2024 08:00:00 AM Scheduled Provider: Location:[facility] Appointment Type:URO Nurse Visit Appointment Date:09/20/2024 09:45:00 AM Scheduled Provider:Lety Gonzalez MD Location:[facility] Appointment Type:URO Office Visit Future Scheduled Tests Laboratory* Testosterone Level Total 09/08/24 [facility] evaluation + Plan note Future Appointments Appointment Date:09/20/2024 09:45:00 AM Scheduled Provider:Lety Gonzalez MD Location:[facility] Appointment Type:URO Office Visit Future Scheduled Tests Laboratory* Testosterone Level Total 09/08/24 [facility] evaluation + Plan note Future Appointments Appointment Date:09/20/2024 09:45:00 AM Scheduled Provider:Lety Gonzalez MD Location:[facility] Appointment Type:URO Office Visit Diagnostic Tests Pending * Testosterone Level Total 09/13/24 Future Scheduled Tests Laboratory* Testosterone Level Total 09/08/24 [facility] evaluation + Plan note Future Appointments Appointment Date:10/18/2024 08:30:00 AM Scheduled Provider: Location:[facility] Appointment Type:URO Nurse Visit Appointment Date:10/27/2024 08:00:00 AM Scheduled Provider:Lety Gonzalez MD Location:[facility] Appointment Type:URO Office Visit Appointment Date:12/20/2024 09:45:00 AM Scheduled Provider:Lety Gonzalez MD Location:[facility] Appointment Type:URO Office Visit Future Scheduled Tests Laboratory* Testosterone Level Total 09/08/24 [facility] evaluation + Plan note Future Appointments Appointment Date:10/27/2024 08:00:00 AM Scheduled Provider:Lety Gonzalez MD Location:[facility] Appointment Type:URO Office Visit Appointment Date:12/20/2024 09:45:00 AM Scheduled Provider:Lety Gonzalez MD Location:[facility] Appointment Type:URO Office Visit Diagnostic Tests Pending * Testosterone Level Total 10/18/24 Future Scheduled Tests Laboratory* Testosterone Level Total 09/08/24 [facility] Evaluation + Plan note Future Appointments Appointment Date:10/27/2024 08:00:00 AM Scheduled Provider:Lety Gonzalez MD Location:[facility] Appointment Type:URO Office Visit Appointment Date:12/20/2024 09:45:00 AM Scheduled Provider:Lety Gonzalez MD Location:[facility] Appointment Type:URO Office Visit Future Scheduled Tests Laboratory* Testosterone Level Total 09/08/24 [facility] evaluation + Plan note Future Appointments Appointment Date:11/08/2024 08:30:00 AM Scheduled Provider: Location:[facility] Appointment Type:URO Nurse Visit Appointment Date:04/18/2025 08:00:00 AM Scheduled Provider: Location:[facility] Appointment Type:URO Nurse Visit Appointment Date:05/02/2025 08:45:00 AM Scheduled Provider:Lety Gonzalez MD Location[facility] Appointment Type:URO Office Visit Future Scheduled Tests Laboratory* Testosterone Level Total 09/08/24 * Testosterone Level Total 04/06/25 [facility] Evaluation + Plan note Future Appointments Appointment Date:11/22/2024 08:00:00 AM Scheduled Provider: Location[facility] Appointment Type:URO Nurse Visit Appointment Date:12/06/2024 08:00:00 AM Scheduled Provider: Location:[facility] [place] Appointment Type:URO Nurse Visit Appointment Date:04/25/2025 08:00:00 AM Scheduled Provider: Location:[facility] Appointment Type:URO Nurse Visit Appointment Date:05/02/2025 08:45:00 AM Scheduled Provider:Lety Gonzalez MD Location:[facility] Appointment Type:URO Office Visit Future Scheduled Tests Laboratory* Testosterone Level Total 09/08/24 * Testosterone Level Total 04/06/25 [facility] evaluation + Plan note Future Appointments Appointment Date:01/31/2025 08:30:00 AM Scheduled Provider: Location:[facility] Appointment Type:URO Nurse Visit Appointment Date:04/25/2025 08:00:00 AM Scheduled Provider: Location:[facility] Appointment Type:URO Nurse Visit Appointment Date:05/02/2025 08:45:00 AM Scheduled Provider:Lety Gonzalez MD Location:[facility] Appointment Type:URO Office Visit Future Scheduled Tests Laboratory* Testosterone Level Total 09/08/24 * Testosterone Level Total 04/06/25 [facility] evaluation + Plan note Future Appointments Appointment Date:02/14/2025 08:00:00 AM Scheduled Provider: Location:[facility] Appointment Type:URO Nurse Visit Appointment Date:04/25/2025 08:00:00 AM Scheduled Provider: Location:[facility] Appointment Type:URO Nurse Visit Appointment Date:05/02/2025 08:45:00 AM Scheduled Provider:Lety Gonzalez MD Location:[facility] Appointment Type:URO Office Visit Future Scheduled Tests Laboratory* Testosterone Level Total 09/08/24 * Testosterone Level Total 04/06/25 [facility] evaluation + Plan note Future Appointments Appointment Date:04/25/2025 08:00:00 AM Scheduled Provider: Location:[facility] Appointment Type:URO Nurse Visit Appointment Date:05/02/2025 08:45:00 AM Scheduled Provider:Lety Gonzalez MD Location:[facility] Appointment Type:URO Office Visit Future Scheduled Tests Laboratory* Testosterone Level Total 09/08/24 * Testosterone Level Total 04/06/25 [facility] evaluation + Plan note Future Appointments Appointment Date:03/07/2025 08:00:00 AM Scheduled Provider: Location:[facility] Appointment Type:URO Nurse Visit Appointment Date:03/21/2025 08:00:00 AM Scheduled Provider: Location:[facility] Appointment Type:URO Nurse Visit Appointment Date:04/04/2025 08:00:00 AM Scheduled Provider: Location:[facility] Appointment Type:URO Nurse Visit Appointment Date:04/25/2025 08:00:00 AM Scheduled Provider: Location:[facility] Appointment Type:URO Nurse Visit Appointment Date:05/02/2025 08:45:00 AM Scheduled Provider:Lety Gonzalez MD Location:[facility] Appointment Type:URO Office Visit Future Scheduled Tests Laboratory* Testosterone Level Total 09/08/24 * Testosterone Level Total 04/06/25 [facility] evaluation + Plan note Future Appointments Appointment Date:03/21/2025 08:00:00 AM Scheduled Provider: Location:[facility] Appointment Type:URO Nurse Visit Appointment Date:04/04/2025 08:00:00 AM Scheduled Provider: Location:[facility] Appointment Type:URO Nurse Visit Appointment Date:04/25/2025 08:00:00 AM Scheduled Provider: Location:[facility] Appointment Type:URO Nurse Visit Appointment Date:05/02/2025 11:00:00 AM Scheduled Provider:Lety Gonzalez MD Location:[facility] Appointment Type:URO Office Visit Future Scheduled Tests Laboratory* PSA Screen, Total 04/15/25 * Hematocrit 04/15/25 * Testosterone Level Total 09/08/24 * Testosterone Level Total 04/06/25 [facility] evaluation + Plan note Future Appointments Appointment Date:04/04/2025 08:00:00 AM Scheduled Provider: Location:[facility] Appointment Type:URO Nurse Visit Appointment Date:04/25/2025 08:00:00 AM Scheduled Provider: Location:[facility] Appointment Type:URO Nurse Visit Appointment Date:05/02/2025 11:00:00 AM Scheduled Provider:Lety Gonzalez MD Location:[facility] Appointment Type:URO Office Visit Future Scheduled Tests Laboratory* PSA Screen, Total 04/15/25 * Hematocrit 04/15/25 * Testosterone Level Total 09/08/24 * Testosterone Level Total 04/06/25 [facility] evaluation + Plan note Future Appointments Appointment Date:04/18/2025 08:00:00 AM Scheduled Provider: Location:[facility] Appointment Type:URO Nurse Visit Appointment Date:04/25/2025 08:00:00 AM Scheduled Provider: Location:[facility] Appointment Type:URO Nurse Visit Appointment Date:05/02/2025 11:00:00 AM Scheduled Provider:Lety Gonzalez MD Location:[facility] Appointment Type:URO Office Visit Future Scheduled Tests Laboratory* PSA Screen, Total 04/15/25 * Hematocrit 04/15/25 * Testosterone Level Total 09/08/24 * Testosterone Level Total 04/06/25 [facility] evaluation + Plan note Future Appointments Appointment Date:04/25/2025 08:00:00 AM Scheduled Provider: Location:[facility] Appointment Type:URO Nurse Visit Appointment Date:05/02/2025 11:00:00 AM Scheduled Provider:Lety Gonzalez MD Location:[facility] Appointment Type:URO Office Visit Appointment Date:05/16/2025 08:00:00 AM Scheduled Provider: Location:[facility] Appointment Type:URO Nurse Visit Appointment Date:05/30/2025 08:00:00 AM Scheduled Provider: Location:[facility] Appointment Type:URO Nurse Visit Appointment Date:06/13/2025 08:00:00 AM Scheduled Provider: Location:[facility] Appointment Type:URO Nurse Visit Appointment Date:06/27/2025 08:30:00 AM Scheduled Provider: Location:[facility] Appointment Type:URO Nurse Visit Future Scheduled Tests Laboratory* PSA Screen, Total 04/15/25 * Hematocrit 04/15/25 * Testosterone Level Total 09/08/24 * Testosterone Level Total 04/06/25 [facility] evaluation + Plan note Future Appointments Appointment Date:05/02/2025 11:00:00 AM Scheduled Provider:Lety Gonzalez MD Location:[facility] Appointment Type:URO Office Visit Appointment Date:05/16/2025 08:00:00 AM Scheduled Provider: Location:[facility] Appointment Type:URO Nurse Visit Appointment Date:05/30/2025 08:00:00 AM Scheduled Provider: Location:[facility] Appointment Type:URO Nurse Visit Appointment Date:06/13/2025 08:00:00 AM Scheduled Provider: Location:[facility] Appointment Type:URO Nurse Visit Appointment Date:06/27/2025 08:30:00 AM Scheduled Provider: Location:[facility] Appointment Type:URO Nurse Visit Future Scheduled Tests Laboratory* Testosterone Level Total 09/08/24 [facility] evaluation + Plan note Future Appointments Appointment Date:05/16/2025 08:00:00 AM Scheduled Provider: Location:[facility] Appointment Type:URO Nurse Visit Appointment Date:05/30/2025 08:00:00 AM Scheduled Provider: Location:[facility] Appointment Type:URO Nurse Visit Appointment Date:06/13/2025 08:00:00 AM Scheduled Provider: Location:[facility] Appointment Type:URO Nurse Visit Appointment Date:06/27/2025 08:30:00 AM Scheduled Provider: Location:[facility] Appointment Type:URO Nurse Visit Appointment Date:05/01/2026 08:00:00 AM Scheduled Provider:Lety Gonzalez MD Location:[facility] Appointment Type:URO Office Visit Diagnostic Tests Pending * Testosterone Level Total 05/02/25 * Hematocrit 05/02/25 * PSA Total 05/02/25 Future Scheduled Tests Laboratory* Testosterone Level Total 09/08/24 [facility] evaluation + Plan note Future Appointments Appointment Date:05/30/2025 08:00:00 AM Scheduled Provider: Location:[facility] Appointment Type:URO Nurse Visit Appointment Date:06/13/2025 08:00:00 AM Scheduled Provider: Location:[facility] Appointment Type:URO Nurse Visit Appointment Date:06/27/2025 08:30:00 AM Scheduled Provider: Location:[facility] Appointment Type:URO Nurse Visit Appointment Date:05/01/2026 08:00:00 AM Scheduled Provider:Lety Gonzalez MD Location:[facility] Appointment Type:URO Office Visit Future Scheduled Tests Laboratory* Testosterone Level Total 09/08/24 [facility] evaluation + Plan note Future Appointments Appointment Date:06/13/2025 08:00:00 AM Scheduled Provider: [facility] Appointment Type:URO Nurse Visit Appointment Date:06/27/2025 08:30:00 AM Scheduled Provider: Location:[facility] Appointment Type:URO Nurse Visit Appointment Date:05/01/2026 08:00:00 AM Scheduled Provider:Lety Gonzalez MD Location:[facility] Appointment Type:URO Office Visit Future Scheduled Tests Laboratory* Testosterone Level Total 09/08/24 [facility] evaluation + Plan note Future Appointments Appointment Date:06/27/2025 08:30:00 AM Scheduled Provider: Location:[facility] Appointment Type:URO Nurse Visit Appointment Date:07/11/2025 08:00:00 AM Scheduled Provider: Location[place] Appointment Type:URO Nurse Visit Appointment Date:07/25/2025 08:00:00 AM Scheduled Provider: Location:[facility] Appointment Type:URO Nurse Visit Appointment Date:05/01/2026 08:00:00 AM Scheduled Provider:Lety Gonzalez MD Location[facility] Appointment Type:URO Office Visit Future Scheduled Tests Laboratory* Testosterone Level Total 09/08/24 [facility] evaluation + Plan note Future Appointments Appointment Date:07/11/2025 08:00:00 AM Scheduled Provider: Location[facility] Appointment Type:URO Nurse Visit Appointment Date:07/25/2025 08:00:00 AM Scheduled Provider: Location[facility] Appointment Type:URO Nurse Visit Appointment Date:05/01/2026 08:00:00 AM Scheduled Provider:Lety Gonzalez MD Location:[facility] Appointment Type:URO Office Visit Future Scheduled Tests Laboratory* Testosterone Level Total 09/08/24 [facility] evaluation noteNo [employer] FacilityReppler Other Evaluation note* Diagnosis Onset Date Resolution Status CAD (coronary artery disease) acuteDiabetesacuteGERD (gastroesophageal reflux disease)acuteHypertensionacute Screening for colon canceracuteScreening PSA (prostate specific antigen)acute [facility] Work Phone: Evaluation note* Diagnosis Onset Date Resolution Status CAD (coronary artery disease) acuteDiabetesacuteGERD (gastroesophageal reflux disease)acuteHypertensionacute Screening for colon canceracuteScreening PSA (prostate specific antigen)acute FatigueacuteHypertensionacuteType II diabetes mellitusacute [facility] Work Phone: Evaluation note* Diagnosis Onset Date Resolution Status Claudication acuteFatigueacuteHypertensionacuteType II diabetes mellitusacute [facility] Work Phone: Evaluation note* Diagnosis Onset Date Resolution Status Claudication acuteFatigueacuteHypertensionacuteType II diabetes mellitusacuteBilateral lower extremity edemaacuteHemosiderin pigmentation of lower extremity due to varicose veinsacuteObesityacuteSymptomatic varicose veins of both lower extremitiesacute Wound of footacute [facility] Work Phone: Evaluation note* Diagnosis Foot ulcer, left, with fat layer exposed ([facility])- Primary Diabetes 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 polyneuropathy, unspecified whether fpc insulin use ([facility]) Foot ulcer, right, with fat layer exposed ([facility]) [facility]* Diagnosis Onset Date Resolution Status Bilateral lower extremity edema acuteHemosiderin pigmentation of lower extremity due to varicose veinsacute ObesityacuteSymptomatic varicose veins of both lower extremitiesacuteWound of footacuteCAD (coronary artery disease)acuteDiabetic foot ulceracuteGERD (gastroesophageal reflux disease)acuteHemosiderin pigmentation of lower extremity due to varicose veinsacuteHypertensionacuteObesityacuteType II diabetes mellitusacute [facility] Work Phone: Evaluation note* Diagnosis Diabetes 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 polyneuropathy, unspecified whether fpc insulin use (CMS/HCC)- Primary Foot ulcer, right, with fat layer exposed (CMS/HCC) Foot ulcer, left, with fat layer exposed (CMS/HCC) PVD (peripheral vascular disease) (CMS/HCC) Unspecified peripheral vascular disease [facility]* Diagnosis Diabetes 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 polyneuropathy, 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 (CMS/HCC)- Primary Foot ulcer, right, with fat layer exposed (CMS/HCC) documented in this encounter [facility]* Diagnosis Diabetes 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 polyneuropathy, unspecified whether fpc insulin use (CMS/HCC)- Primary Foot ulcer, right, with fat layer exposed (CMS/HCC) Foot ulcer, left, with fat layer exposed (CMS/HCC) documented in this encounter [facility]* Diagnosis Xerosis cutis- Primary Other specified disease of sebaceous glands Skin fissure Other specified disorder of skin Diabetes 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 polyneuropathy, unspecified whether fpc insulin use (CMS/HCC) Foot ulcer, right, with fat layer exposed (CMS/HCC) PVD (peripheral vascular disease) (CMS/HCC) Unspecified peripheral vascular disease documented in this encounter [facility]* Diagnosis Foot ulcer, right, with fat layer exposed (CMS/HCC)- Primary Xerosis cutis Other specified disease of sebaceous glands Skin fissure Other specified disorder of skin Diabetes 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 polyneuropathy, unspecified whether fpc insulin use (CMS/HCC) PVD (peripheral vascular disease) ([facility]/HCC) Unspecified peripheral vascular disease documented in this encounter [facility]* Diagnosis Xerosis cutis- Primary Other specified disease of sebaceous glands Skin fissure Other specified disorder of skin PVD (peripheral vascular disease) (CMS/HCC) Unspecified peripheral vascular disease Diabetes 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 polyneuropathy, unspecified whether fpc insulin use (CMS/HCC) Foot ulcer, right, with fat layer exposed (CMS/HCC) documented in this encounter [facility]* Diagnosis Diabetes 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 polyneuropathy, unspecified whether fpc insulin use ([facility])- Primary Foot ulcer, right, with fat layer exposed ([facility]) PVD (peripheral vascular disease) ([facility] Unspecified peripheral vascular disease documented in this encounter [facility]* Diagnosis Diabetes 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 polyneuropathy, 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 ([facility])- Primary Foot ulcer, right, with fat layer exposed ([facility]) PVD (peripheral vascular disease) ([facility] Unspecified peripheral vascular disease Xerosis cutis Other specified disease of sebaceous glands documented in this encounter [facility]* Diagnosis Small bowel obstruction ([facility])- Primary Unspecified intestinal obstruction JAM (obstructive sleep apnea) Obstructive sleep apnea (adult) (pediatric) Small bowel obstruction ([facility]) Unspecified intestinal obstruction Primary hypertension Unspecified essential hypertension JAM (obstructive sleep apnea) Obstructive sleep apnea (adult) (pediatric) Hypertension Unspecified essential hypertension DM2 (diabetes mellitus, type 2) ([facility]) CAD (coronary artery disease) Coronary atherosclerosis of unspecified type of vessel, platinum or graft [facility]* Diagnosis Onset Date Resolution Status Admit Date CAD (coronary artery disease) acuteMarch 2024 9:18amHyperlipidemiaacuteMarch 2024 9:18am HypertensionacuteMarch 2024 9:18amType II diabetes mellitusacuteMarch 2024 9:18am [facility] Work Phone: Evaluation noteNo assessment information available [facility] Work Phone: Evaluation note* Diagnosis Atherosclerosis of platinum coronary artery of platinum heart without angina pectoris- Primary Essential hypertension Unspecified essential hypertension Mixed hyperlipidemia Type 2 diabetes mellitus without complication, without long-term current use of insulin (Multi) Obstructive sleep apnea Obstructive sleep apnea (adult) (pediatric) Acute combined systolic and diastolic heart failure (Multi) Acute combined systolic and diastolic heart failure BMI 50.0-59.9, adult (Multi) documented in this encounter [facility] Work Phone: History general Narrative - Reported* Type Description Date Medical History 2nd opinion for vein surgery Medical HistoryHTNMedical HistoryDMMedical HistoryCAD with prior MIMedical HistoryCVIMedical HistoryDepressionMedical HistoryEdema legMedical History Diabetic polyneuropathy associated with other specified diabetes mellitus Surgical Historytoe surgery/ right foot great toeSurgical Historytonsillectomy Surgical Historyheart stent 2Hospitalization HistorytonsillectomyHospitalization Historypneumonia Fipeo Other Hospital course Narrative No data available for this section [facility] Hospital Discharge instructions No data available for this section [facility] Hospital Discharge instructionsAmbulatory Orders* Referral to Gastroenterology Time Frame: 11/30/23, Location: None [facility] Work Phone: Hospital Discharge instructionsNot on filedocumented in this encounterProCooper Green [facility] SystemInstructionsNot on filedocumented in this encounterProOhio Valley [facility] SystemProgress note No data available for this section [facility] reason for referral (narrative)No reason for referral information availableMain [facility] Work Phone: Reason for visit Narrative* Auth/Cert (Routine) SpecialtyDiagnoses / ProceduresReferred By ContactReferred To Contact Diagnoses Small bowel obstruction (CMS-HCC) Arrhythmia Small bowel obstruction Adrienne Rodriguez MD [address] [address] Phone: tel: fax: Referral IDStatusReasonStart DateExpiration DateVisits RequestedVisits [id number] [facility] [employer] Summary Purpose Family History Unknown Family Member [...] Advance Directives No May 10:55am Date ActivatedDate OuhbvazunlqNeqlogqo14/18/2024 4:09 AM07/28/2024 6:17 PM Chief Complaint * [...] To ContactRadiology Diagnoses PVD (peripheral vascular disease) ([facility]) Procedures Vascular US lower extremity arterial Doppler complete Gray Cancino DPM [address] [id number] Referral IDStatusReasonStart DateExpiration DateVisits RequestedVisits [id number] Perform Procedure Additional Source Comments (unrecognized [...] DATE CREATED AUTHOR AUTHOR'S ORGANIZ ATION 12/24/2022 [facility] DATE CREATED AUTHOR AUTHOR'S ORGANIZ ATION 06/30/2023 [facility] DATE CREATED AUTHOR AUTHOR'S ORGANIZ ATION 03/03/2024 [facility] DATE CREATED AUTHOR AUTHOR'S ORGANIZ ATION 03/04/2024 [facility] DATE CREATED AUTHOR AUTHOR'S ORGANIZ ATION 03/09/2024 [facility] DATE CREATED AUTHOR AUTHOR'S ORGANIZ ATION 03/10/2024 [facility] DATE CREATED AUTHOR AUTHOR'S ORGANIZ ATION 07/15/2024 [facility] DATE CREATED AUTHOR AUTHOR'S ORGANIZ ATION 08/04/2024 [facility] DATE CREATED AUTHOR AUTHOR'S ORGANIZ ATION 09/29/2024 [facility] DATE CREATED AUTHOR AUTHOR'S ORGANIZ ATION 12/23/2024 [facility] DATE CREATED AUTHOR AUTHOR'S ORGANIZ ATION 04/27/2025 [facility] DATE CREATED AUTHOR AUTHOR'S ORGANIZ ATION 06/28/2025 [facility] DATE CREATED AUTHOR AUTHOR'S ORGANIZ ATION 07/12/2025 [facility] DATE CREATED AUTHOR AUTHOR'S ORGANIZ ATION 07/17/2025 [facility] Architectural Representative Team (unrecognized sect ion and content) Team [...] DateEnd Date Luis Jeffrey MD [address] [facility], [place] [phone] [facility] - [facility]05/04[facility]24Team MemberRelationshipSpecialtyStart DateEnd Date Luis Jeffrey MD [address] [facility], [place] [phone] PCP - GeneralFami Medicine05/04/24 Team Status: Inactive Member Role Status Dates Luis Jeffrey MD Primary Care Provide r, Attending Provider Active Start: June 14, 2024 End: June 14, 2024Team MemberRelationshipSpecialtyStart DateEnd Date Luis Jeffrey MD [address] [facility], [place] [phone] PCP - GeneralFami Medicine05/04/24Team MemberRelationshipSpecialtyStart DateEnd Date Luis Jeffrey MD [address] [facility], [place] [phone] PCP - GeneralFami Medicine05/04/24Team MemberRelationshipSpecialtyStart DateEnd Date Luis Jeffrey MD [address] [facility], [place] [phone] PCP - GeneralFamily Medicine05/04/24Team MemberRelationshipSpecialtyStart DateEnd Date Luis Jeffrey MD [address] [facility], [place] [phone] PCP - [facility]05/04/24Team MemberRelationshipSpecialtyStart DateEnd Date Luis Jeffrey MD [address] [facility], [place] [phone] PCP - [facility]05/04/24Team MemberRelationshipSpecialtyStart DateEnd Date Luis Jeffrey MD [address] [facility], [place] [phone] PCP - [facility]05/04/24Team MemberRelationshipSpecialtyStart DateEnd Date Luis Jeffrey MD [address] [facility], [place] [phone] PCP - [facility] Medicine05/04/24 Team Status: Inactive Member Role Status [...] ProviderActiveStart: July 03, 2025 End: July 03, 2025Team MemberRelationshipSpecialtyStart DateEnd Date Luis Jeffrey MD [address] [place] [address] PCP - General12/22/22 REASON FOR VISIT (unrecogniz ed section and content) ReasonCommentsFollow-upBl ulcer checkReasonCommentsFollow-uplesionsReason CommentsPost-op1st post op, B/L graftReasonCommentsFoot UlcerRt ft ulcerReason CommentsFoot UlcerRt GT toe ulcerReasonCommentsFoot Lnplw6jt ulcer F/UReason CommentsFoot PainReasonCommentsFollow-upFollow up bl ulcerReasonComments Follow-up1WK RT ULCERReasonCommentsFollow-up1wk ulcerReasonOnset DateComments Yahfkaf4607/24/2024Small bowel obstruction Goals (unrecognized section and content) Goals may be documented in a n alternate section Scheduled Active and Recently Administ ered Medications (unrecognized section and content) Medication Order amLODIPine (NORVASC) tablet 5 mg 5 mg, [...] First dose (after last modification) on Wed07/25/24 [id number], Hold for HR <60 bpm or SBP [...] (Given - Provider: Arabella Rousseau RN) * 09 (Not Given - Provider: Blaire Aldana LPN - Reason: See Provider Order) sodium chloride 0.9 % flush 3 mL 3 mL, intravenous, Every 12 hours scheduled, First dose on Wed07/24/24 at 0900 * 0900 (Not Given - Provider: Blaire Aldana LPN - Reason: IV infusing) * 2053 (Given - Provider: Luis Pope RN) * 0938 (Given - Provider: Blaire Aldana LPN) * 223 (Given - Provider: Erwin Starkey RN) * 0908 (Given - Provider: Francisca Mcfadden LPN) Medication Order/ lactated ringers infusion 125 mL/hr, intravenous, Continuous, [...] Bag - Provider: Blaire Aldana LPN) Medication Order/ acetaminophen (TYLENOL EXTRA STRENGTH) tablet 500 mg 500 mg, oral, Every 6 hours PRN, mild pain - pain scale 1-3, headaches, temperature greater than 38C, Starting on Wed07/24/24 at 0407, [Warning: Total Acetaminophen not to exceed more than 4 grams (4000 mg) in 24 hours] * 1739 (Given - Provider: Blaire Aldana LPN) dextrose [...] * 0440 (Stop Bag - Provider: Erwin Starkey RN) [...] BE BASED ON THE PRIMARY CLINICAL RECORDS. [facility]. provides no warranty or guarantee of the accuracy or completeness of information in this document.
--- NOTE | 2025-09-01 13:02 | XR_ITS ---
The [address] [address] Patient Name: JOHNATHAN AMBROSIO MRN: [id number] date: 1960 Sex: M Assigned Patient Location: ER Current Patient Location: ED.MAIN Accession/Order Number: [id number] Exam Date: 09/01/2025 13:12 Report Date: 09/01/2025 14:09 At the request of: ALLA LOVE DO Procedure: XR foot RT min 3V 3 views right foot plain film COMPARISON:10/14/2021 HISTORY: Shortness of breath. Right foot swelling ACUTE FINDINGS: Chronic erosive changes of the distal portion of the first proximal phalanx. No change. No new bony findings. DEGENERATIVE CHANGE: Unremarkable SOFT TISSUE FINDINGS: Diffuse soft tissue prominence. No subcutaneous air. JOINT EFFUSION: None POSTOP CHANGES: None BONE MINERALIZATION: Adequate XR/XR foot RT min 3V IMPRESSION: Diffuse soft tissue swelling without subcutaneous air or acute bony findings. Similar chronic changes. Impression dictated by: Nathaniel Mendosa M.D. 09/01/2025 2:09 PM Dictation Location: [place] [address] Electronically authenticated by: [id number] Y Date: 09/01/2025 14:09
[2025-09-01 13:06] LABS: Hematocrit 47.6 % (42.0-54.0); Hemoglobin 15.7 g/dL (14.0-18.0); Mean Corpuscular HGB Conc 33.0 g/dL (29.9-35.2); Mean Corpuscular Hemoglobin 26.1 pg (25.9-34.0); Mean Corpuscular Volume 79.1 fL (80.0-94.0); Platelet Count 215 10^3/uL (150-450); Red Blood Count 6.02 10^6/uL (4.70-6.10); White Blood Count 18.2 10^3/uL (4.0-11.0)
[2025-09-01] MEDS: VANCOMYCIN HCL 1,000 MG in 0.9 % SODIUM CHLORIDE 250 ML 250 MG IV ×2 (13:10→16:14)
[2025-09-01 13:30] LABS: Lactate/Lactic Acid 1.7 mmol/L (0.4-2.0)
[2025-09-01 13:31] LABS: Basophils Abs Manual 0.00 10^3/uL (0.00-0.10); Basophils Percent Manual 0.0 % (0.2-2.0); Eosinophils Absolute Manual 0.36 10^3/uL (0.00-0.70); Eosinophils Percent Manual 2.0 % (0.9-7.0); Lymphocytes Absolute Manual 0.00 10^3/uL (1.20-3.80); Lymphocytes Percent Manual 0.0 % (20.5-60.0); Monocytes Absolute Manual 0.91 10^3/uL (0.30-0.80); Monocytes Percent Manual 5.0 % (1.7-12.0); Segmented Neut Absolute Manual 16.92 10^3/uL (1.4-6.5); Segmented Neutrophils % Manual 93.0 (43.0-75.0)
[2025-09-01 13:33] LABS: Anion Gap 11.4; Blood Urea Nitrogen 21.0 mg/dL (7.0-18.0); Calcium 8.9 mg/dL (8.5-10.1); Carbon Dioxide 30.0 mmol/L (21.0-32.0); Chloride 97 mmol/L (98-107); Estimated GFR (African America >60 (>=60 mL/min/1.73m^2); Estimated GFR (Non-African Ame 56 (>=60 mL/min/1.73m^2); Glucose 248 mg/dL (74-106); NT Pro B Type Natriuretic Pept 36.0 pg/mL (<=900.0); Potassium 5.4 mmol/L (3.5-5.1); Sodium 133 mmol/L (136-145)
--- NOTE | 2025-09-01 13:38 | ECG_ITS ---
[facility] [place] Test Date: 2025-09-01 Pat Name: JOHNATHAN AMBROSIO Department: Room: - Gender: Male Toxicology Supervisor: : 1960 Requested By: [id number] Order Number: [id number] Reading MD: SIMONE ZARATE M.D. Measurements Intervals [place] Rate: 106 P: 30 CA: 192 QRS: -56 QRSD: 94 T: 79 QT: 306 QTc: 368 Interpretive Statements Sinus tachycardia with premature ventricular contractions 3114 Cannot rule out anterior myocardial infarction, age undetermined 7200 Abnormal left axis deviation 8102 Low QRS voltage in chest leads 9150 abnormal ECG Compared to ECG 07/23/2024 21:12:11 Left-axis deviation now present Low QRS voltage now present Left anterior fascicular block no longer present Myocardial infarct finding still present Premature ventricular contractions are now present Electronically Signed On 09-02-2025 13:09:58 EST by SIMONE ZARATE M.D.
--- NOTE | 2025-09-01 14:04 | PM.HP ---
HPI H&P: HPI History of Present Illness Chief complaint: CHILLS, CELLULITUS, ACUTE HYPERKALEMIA Narrative: Mr. Correa is a 64-year-old gentleman who came to the emergency room not feeling well. Nonspecific symptoms such as fatigue, weakness, loss of energy. Minimal cough. No chest pain or palpitation. No abdominal pain. Patient reported having shortness of breath. No hematemesis or melena. Patient reported having progressive right foot ulcer Over the last 2 weeks. Patient reported that the foot is red and swollen. Patient reported that he has sleep apnea but does not use his CPAP machine. Opioid HPI Opioid Management Most Recent Pain and Opioid Data: Last Pain Scale 10 07/23/24, 20:50 Last Pain Assessment Today, 09:00 Last ORT Total Score 0 09/01/25, 15:22 Last ORT Risk Category Low Risk 09/01/25, 15:22 Review of Systems ROS Status of ROS 10 or more systems reviewed and unremarkable except as noted in history and below [facility] Medical History (Updated 09/02/25 @ 11:08 by Ryan Sifuentes MD) Obesity ?E66.9 - Obesity, unspecified (ICD-10) Obesities, morbid ?E66.01 - Morbid (severe) obesity due to excess calories (ICD-10) Diabetes ?E11.9 - Type 2 diabetes mellitus without complications (ICD-10) Hypertension ?I10 - Essential (primary) hypertension (ICD-10) Surgical History (Updated 09/01/25 @ 15:27 by Sylvia Wright) History of coronary artery stent placement ?Z95.5 - Presence of coronary angioplasty implant and graft (ICD-10) Social History Highest level of school completed/degree received: GED or equivalent Little interest or pleasure in doing things: not at all Feeling down, depressed, or hopeless: not at all Meds Home Medications and Allergies Home Medications ?Medication ?Instructions ?Recorded ?Confirmed ?Type amlodipine 5 mg tablet 5 mg PO DAILY 09/01/25 09/01/25 History aspirin 81 mg tablet 162 mg PO DAILY 09/01/25 09/01/25 History atorvastatin 20 mg tablet 20 mg PO DAILY 09/01/25 09/01/25 History carvedilol 12.5 mg tablet 12.5 mg PO Q12H 09/01/25 09/01/25 History citalopram 20 mg tablet 20 mg PO DAILY 09/01/25 09/01/25 History empagliflozin 25 mg tablet 25 mg PO DAILY 09/01/25 09/01/25 History (Jardiance) glipizide 10 mg tablet, extended 10 mg PO DAILY 09/01/25 09/01/25 History release 24 hr hyoscyamine sulfate 0.375 mg 0.375 mg PO Q12H 09/01/25 09/01/25 History tablet,extended release,12 hr lisinopril 5 mg tablet 5 mg PO Q12H 09/01/25 09/01/25 History nitroglycerin 0.4 mg sublingual 0.4 mg sublingual Q5M PRN chest 09/01/25 09/01/25 History tablet pain omeprazole 40 mg capsule,delayed 40 mg PO DAILY 09/01/25 09/01/25 History release pioglitazone 30 mg tablet 30 mg PO DAILY 09/01/25 09/01/25 History testosterone cypionate 200 mg/mL 150 mg IM .[id number] 09/01/25 09/01/25 History intramuscular oil Allergies Allergy/AdvReac Type Severity Reaction Status Date / Time metformin Allergy Severe Diarrhea Verified 07/23/24 18:44 Exam Narrative Exam Narrative: Morbidly obese. Mild respiratory distress. Saturation drops down to 88% requiring 3 L of oxygen to keep it above 92%. Afebrile. Neck is supple. Chest exam is clear. Heart is regular. Significant increased abdominal girth therefore clinically I could not exclude the possibility of intra-abdominal mass organomegaly. +1 pitting edema in both legs. Chronic venous stasis, hyperpigmentation and mild erythema involving both legs from the mid berkowitz and down to the foot. Patient has at least stage II ulceration measuring about half inch in diameter involving the lateral aspect of the right distal metatarsal. No drainage Faint dorsalis pedis pulse. Constitutional Vital Signs, click to edit/add: Last Vital Signs Temp 97.8 F 09/01/25 12:20 Pulse 107 H 09/01/25 12:20 Resp 20 09/01/25 12:20 BP 116/85 09/01/25 12:20 Pulse Ox 94 L 09/01/25 12:20 O2 Del Method Room Air 09/01/25 12:20 Results Labs Labs: Short CBC 09/01/25 Range/Units 12:50 WBC 18.2 H (4.0-11.0) 10^3/uL Hgb 15.7 (14.0-18.0) g/dL Hct 47.6 (42.0-54.0) % Plt Count 215 (150-450) 10^3/uL [facility] 09/01/25 12:50 Sodium 133 L Potassium 5.4 H Chloride 97 L Carbon Dioxide 30.0 BUN 21.0 H Creatinine 1.30 Glucose 248 H Calcium 8.9 Assessment and Plan Assessment and Plan (1) Cellulitis: (2) Sepsis: (3) Hypoxic respiratory failure: Plan Sepsis present on admission. Elevated white count at 18,000, elevated CRP at 2.1 Suspected source is right infected foot ulcer with foot cellulitis. Could not exclude the possibility of urinary tract infection or developing lung infection. Please refer to initial sepsis evaluation and treatment initiated in the emergency room department. Continue IV fluid infusion. Continue antibiotic. Broad-spectrum Requested UA. Lactic acid is normal. Blood cultures pending. Leg foot cellulitis, stage to at least ulcer involving the lateral aspect of the right fifth distal metatarsal Bilateral venous stasis. Could not exclude venous thrombosis Faint dorsalis pedis pulse. Rule out peripheral vascular disease Broad-spectrum antibiotic Blood cultures pending. Faint dorsalis pedis pulse. Requested arterial study. The ulcer is dry and the entire foot is dirty therefore could not get wound culture May need additional imaging of the foot such as CT or MRI Requested podiatry consultation. Defer further needed diagnostic and therapeutic intervention relative to foot infection and the timing of these intervention to be addressed by nutritional services host. Hypoxic respiratory failure. Obstructive sleep apnea. Patient is not compliant with CPAP machine at home according to him and his . His now is using the CPAP. Prominent right hilum, cannot exclude hilar mass Suspect underlying pulmonary hypertension, restrictive and obstructive pulmonary disease Patient denies feeling short of breath therefore I suspect that his hypoxemia is chronic. Patient is morbidly obese with significant increased abdominal girth suspecting restrictive lung disease. Patient had smoked for 20 years in the past. Suspect underlying obstructive pulmonary disease Patient lives a sedentary life. He has bilateral legs swelling. Could not exclude the possibility of PE Requested D-dimer. If positive proceed with CTA of the chest. If negative proceed with a CT chest with contrast to rule out hilar mass. Venous study rule out DVT. Oxygen supplementation. Ordering CPAP to be used while patient in the hospital. Requested echocardiogram rule out pulmonary hypertension. Arrange for patient to have CPAP machine at home as his machine had been recalibrated to be used by his . Diabetes with hyperglycemia, recent A1c completed 2 months ago it was 10.2. Other has not taken his medications or his medications are suboptimal. Started patient on sliding scale coverage. Started patient on long and meal insulin. Titrate to keep blood sugar between 125 and 180. Diet and diabetes. Hypertension Resume preadmission home medications Hyperkalemia Peaked T waves. Patient had received 1 dose of Lokelma. Started him on insulin Avoid spironolactone. Morbid obesity. Patient weighs 155 kg and the BMI is 51. Diet, exercise and lifestyle modification to be addressed in the outpatient setting. DVT prophylaxis Due to his weight, 150 kg I would put him on Lovenox 40 mg subcutaneously twice a day. Chronic, subacute medical conditions not listed above, abnormal labs and imaging, incidental findings seen on labs and or imaging. These would need to be addressed. Could be addressed later on or in the outpatient setting by PCP collaboration with other needed outpatient providers when time and condition are appropriate.
--- NOTE | 2025-09-01 14:11 | ED_ITS ---
HPI HPI - General Adult General Chief complaint: Extremity Injury, Lower Stated complaint: CHILLS Time Seen by Provider: 09/01/25 12:11 Source: patient Mode of arrival: Wheelchair History of Present Illness HPI narrative: Patient is a 64-year-old male presenting to the emergency department for evaluation of right lower extremity pain. Patient states that he has chronic diabetic foot ulcers, and over the last 2 weeks, the wound seem to have gotten infected. He states that the foot is red, swollen, and tender to the touch. He states that last time this happened he required IV antibiotics and was discharged with a PICC line. In addition to the pain in the foot, he is endorsing flulike symptoms such as chills and myalgias. States he has some chest discomfort as well. He states he has a history of heart failure with 2 coronary stents. States he is a zik-czybuno-hqwiwrljv type II diabetic as well. He denies abdominal pain, nausea, vomiting. No fevers. Related Data Allergies Allergy/AdvReac Type Severity Reaction Status Date / Time metformin Allergy Severe Diarrhea Verified 07/23/24 18:44 Opioid HPI Opioid Management Most Recent Opioid Data: Last Pain Scale 10 07/23/24, 20:50 Review of Systems ROS Status of ROS 10 or more systems reviewed and unremark able except as noted in history and below PFSH PFSH Social History Little interest or pleasure in doing things: not at all Feeling down, depressed, or hopeless: not at all Exam Narrative Exam Narrative: CONSTITUTIONAL: Laying in the stretcher, appears mildly dyspneic, answering questions and following commands appropriately. SKIN: Was warm and dry, nondiaphoretic. EYES: Sclerae white. EARS, NOSE, THROAT: Moist oral mucosa. RESPIRATORY: Clear to auscultation bilaterally, no wheezes, crackles, or stridor, no use of accessory muscles CARDIOVASCULAR: Tachycardic rate and regular rhythm. There is no S3, S4, murmur, rub. GASTROINTESTINAL: Abdomen is nondistended. MUSCULOSKELETAL: The right lateral foot is erythematous, tender to palpation, mildly indurated. Erythema extends to the lateral malleoli and does not extend past. No purulent drainage, crepitus, or bullae. Full range of motion right foot/ankle. Chronic venous stasis ulcers and mild pitting edema bilateral. NEUROLOGIC: Patient is awake and alert. Equal strength and sensation to light touch in the bilateral lower extremities. Constitutional Vital Signs, click to edit/add: Last Vital Signs Temp 97.8 F 09/01/25 12:20 Pulse 107 H 09/01/25 12:20 Resp 20 09/01/25 12:20 BP 116/85 09/01/25 12:20 Pulse Ox 94 L 09/01/25 12:20 O2 Del Method Room Air 09/01/25 12:20 Course Vital Signs Vital signs: Vital Signs Temperature 97.8 F 09/01/25 12:20 Pulse Rate 107 H 09/01/25 12:20 Respiratory Rate 20 09/01/25 12:20 Blood Pressure 116/85 09/01/25 12:20 Pulse Oximetry 94 L 09/01/25 12:20 Oxygen Delivery Method Room Air 09/01/25 12:20 Temperature 97.8 F 09/01/25 12:20 Pulse Rate 107 H 09/01/25 12:20 Respiratory Rate 20 09/01/25 12:20 Blood Pressure 116/85 09/01/25 12:20 Pulse Oximetry 94 L 09/01/25 12:20 Oxygen Delivery Method Room Air 09/01/25 12:20 Medical Decision Making MDM Narrative Medical decision making narrative: Patient is a 64-year-old male, history significant for [id number]-[id number] t ype 2 diabetes, CHF, coronary artery disease s/p coronary stents, presenting to the emergency department with a 2-week history of progressively worsening right foot pain, redness, swelling, and flulike symptoms. His vital signs on arrival are significant for borderline tachycardia, otherwise within normal limits. He is afebrile and hemodynamically stable. Examination was consistent with right lower extremity cellulitis. No crepitus, bulla formation, gangrene to suggest necrotizing fasciitis. Complaining of chest discomfort and shortness of breath, therefore CHF exacerbation, pneumonia, pneumothorax were considered as well. IV was established and laboratory studies were obtained. He was empirically treated with IV vancomycin. X-rays of the foot were ordered. X-rays of the right foot independent reviewed by myself demonstrated no gas formation or obvious osseous destruction. Final read by radiology pending by the time of admission. Chest x-ray independently reviewed/interpreted by myself demonstrated no acute cardiopulmonary process. Laboratory studies were remarkable for leukocytosis and mild hyperkalemia. This was treated with oral Lokelma. No other significant electrolyte or metabolic derangement. Hyperglycemic without anion gap acidosis. No lactic acidosis. No evidence of acute kidney injury. Troponin and BNP nonelevated. 12 Lead EKG: Sinus tachycardia at a rate of 106. Left axis deviation. Possible peaked T waves throughout the precordium. No ST segment elevations. QRS, VT, and QTc interval within normal limits. Final impression: normal sinus rhythm without evidence of acute myocardial ischemia. Possible peaked T waves from mild hyperkalemia. I do believe the patient warrants admission to the hospital for treatment of cellulitis, especially given his history of poorly controlled type 2 diabetes. I discussed the patient with Dr. Sifuentes who accept the patient to his service. FINAL IMPRESSION: #Acute right lower extremity cellulitis #History of pus-gmwenao-nwkvtazft type 2 diabetes DISPOSITION: Admitted to the hospital CONDITION: Fair Medical Records Medical records reviewed: Yes I reviewed the patient's medical records Lab Data Lab results reviewed: Yes I reviewed the patient's lab results Labs: Lab Results 09/01/25 Range/Units 12:50 WBC 18.2 H (4.0-11.0) 10^3/uL RBC 6.02 (4.70-6.10) 10^6/uL Hgb 15.7 (14.0-18.0) g/dL Hct 47.6 (42.0-54.0) % MCV 79.1 L (80.0-94.0) fL MCH 26.1 (25.9-34.0) pg MCHC 33.0 (29.9-35.2) g/dL RDW 15.6 H (11.0-15.0) % Plt Count 215 (150-450) 10^3/uL MPV 10.8 (9.5-13.5) fL Seg Neuts % (Manual) 93.0 H (43.0-75.0) Lymphocytes % (Manual) 0.0 L (20.5-60.0) % Monocytes % (Manual) 5.0 (1.7-12.0) % Eosinophils % (Manual) 2.0 (0.9-7.0) % Basophils % (Manual) 0.0 L (0.2-2.0) % Neutrophils # (Manual) 16.92 H (1.4-6.5) 10^3/uL Lymphocytes # (Manual) 0.00 L (1.20-3.80) 10^3/uL Monocytes # (Manual) 0.91 H (0.30-0.80) 10^3/uL Eosinophils # (Manual) 0.36 (0.00-0.70) 10^3/uL Basophils # (Manual) 0.00 (0.00-0.10) 10^3/uL Sodium 133 L (136-145) mmol/L Potassium 5.4 H (3.5-5.1) mmol/L Chloride 97 L (98-107) mmol/L Carbon Dioxide 30.0 (21.0-32.0) mmol/L Anion Gap 11.4 BUN 21.0 H (7.0-18.0) mg/dL Creatinine 1.30 (0.70-1.30) mg/dL Est GFR ( Amer) >60 (>=60 mL/min/1.73m^2) Est GFR (Non-Af Amer) 56 L (>=60 mL/min/1.73m^2) BUN/Creatinine Ratio 16.2 Glucose 248 H (74-106) mg/dL Lactate 1.7 (0.4-2.0) mmol/L Calcium 8.9 (8.5-10.1) mg/dL Troponin I High Sens 6.3 (4.0-76.1) pg/mL NT-Pro-B Natriuret Pep 36.0 (<=900.0) pg/mL Imaging Data Chest x-ray: Attestation: I personally reviewed and interpreted this imaging study as follows: Radiologist's impression: ITS Impressions Chest X-Ray 09/01/25 12:38 IMPRESSION: No acute process. Impression dictated by: Nathaniel Mendosa M.D. 09/01/2025 2:07 PM Dictation Location[facility] Electronically authenticated by: [id number] Y Date: 09/01/2025 14:07 ECG Data Attestation: I personally reviewed and interpreted this ECG as follows: Discharge Plan Discharge Chief Complaint: Extremity Injury, Lower Clinical Impression: Cellulitis, Acute hyperkalemia Patient Disposition: Admitted As Inpatient Time of Disposition Decision: 13:56 Condition: Fair
[2025-09-01] MEDS: SODIUM ZIRCONIUM CYCLOSILICATE 10 GM POWD.PACK PO (15:02)
--- OUTSIDE RECORDS SUMMARY | 2025-09-01 15:21 | XMS_ITS | CCD ---
Author Organization [facility] Care Team Providers Care Lathmaker Name Role Phone UNKNOWN, PROVIDER Unavailable Unavailable [...] Care Provider Luis Jeffrey MD Attending Provider [phone] Lety Gonzalez Attending Unavailable Lety Gonzalez Attending Unavailable Lety Gonzalez Attending Unavailable VINOD PROCTOR Attending Unavailable LUIS JEFFREY Primary Care Unavailable Luis Jeffrey MD Primary Care Provider [phone] Allergies Allergy ClassificationReported Allergen(s)Allergy TypeDate of OnsetReaction(s) FacilitymetFORMIN (3 sources)metFORMIN; Translations: [metformin]Drug AllergyStomach cramps (finding), Diarrhea (finding)[facility] (20 sources)metFORMIN; Translations: [metformin]Drug [id number] cramps (finding), Diarrhea (finding), Diarrhea, GI intolerance, Anaphylaxis [facility] (20 sources)VancomycinDrug [id number] ([facility] source)metFORMINDrug [facility]ergyFire[facility] (1 source)VancomycinDrug Iynrojs20-78-7933Thl [facility] Repository (5 sources)Allergies ReconciledPropensity to adverse cvcebuies91-96-7358Vuqsxqh [facility] Other (5 sources)patient allergy list reviewed by nurse or physiciaPropensity to adverse edynssdth50-02-2643Fhnahet:1010data Other Medications Current Medications MedicationDrug Class(es)DatesSig (Normalized)Sig (Original)amLODIPine 5 mg oral tablet (20 sources)Dihydropyridine Calcium Channel BlockerStart: 99-45-4831jeoy 1 tablet by mouth once dailyAmlodipine 5 mg tablet Active 0 .ROUTE .COMPLEX 90 3 January 09, 2025 2:25pm TAKE 1 TABLET BY MOUTH EVERY DAY Complies with drug therapy Start: 05-15-2019 End: 94-31-3756xjcz 1 tablet by mouth once dailyamLODIPine (Norvasc) 5 mg tablet Indications: Atherosclerosis [place] coronary artery [place] heart without angina pectoris , Essential hypertension Take 1 tablet (5 mg) by mouth once daily. 90 tablet 3 07/16/2025 07/16/2026 Activeascorbic acid 250 mg oral tablet (3 sources)Vitamin CStart: 61-16-0719tcdn 1 mg by mouth once dailyVitamin C 250 mg oral tablet mg tab(s), Oral, Daily, Refills(s) 0 Start Date: 07/03/21 Status: Orderedaspirin 81 mg chewable tablet (20 sources)Platelet Aggregation Inhibitor, Nonsteroidal Anti-inflammatory Drug Start: 77-22-8340ilsm 2 tablets by mouth once dailyAspirin 81 mg tablet,chewable Active 162 MG PO Daily 180 0 February 24, 2024 4:26pm Complies with drug therapy Start: 93-24-0344ivgn 162 mg by mouth once dailyAspirin Active 162 MG PO Daily 180 February 24, 2024 4:26pmStart: 99-45-9977tbgmwrr 81 mg chewable tablet 2 times a day. 02/24/2024 ActiveStart: 25-98-0048mxkcmad 81 MG chewable tablet Daily 02/24/2024 ActiveStart: 05-13-2019 End: 36-90-6222rgto 2 tablets by mouth once dailyAspirin 81 mg Tablet,Chewable Discontinued 162 MG PO Daily May 13, 2019 12:00am February 24, 2024 4:28pm Start: 05-13-2019 End: 98-46-3713ylos 162 mg by mouth once dailyAspirin Discontinued [...] Activebiotin 1 mg oral tablet (20 sources)Start: 07-91-8035bdqx 1 tablet by mouth once dailybiotin 1000 mcg oral tablet 1,000 mcg = 1 tab(s), Oral, Daily, # 30 tab(s), Refills(s) 0 Start Date: 07/03/21 Status: OrderedBlood Sugar Diagnostic (7 sources)Start: 79-89-6074Aqymo Sugar Diagnostic Active 0 .Route 100 February 24, 2024 12:00am to test blood sugar once dailyStart: 94-44-3805Fnbht Sugar Diagnostic Active 0 .Route February 23, 2024 12:00am As directedcarvedilol 12.5 mg oral tablet (20 sources)alpha-Adrenergic Donovan, beta-Adrenergic BlockerStart: 07-16-2025 take 1 tablet by mouth every twelve hourscarvedilol (Coreg) 12.5 mg tablet Indications: Acute combined systolic and diastolic heart failure (Multi) Take 1 tablet (12.5 mg) by mouth every 12 hours. 180 tablet 3 07/16/2025 ActiveStart: 04-27-2025 End: 12-51-0605rhas 1 tablet by mouth twice dailycarvedilol (Coreg) 12.5 mg tablet Indications: Acute combined systolic and diastolic heart failure (Multi) TAKE 1 TABLET BY MOUTH TWICE A DAY 180 tablet 3 04/27/2025 07/16/2025 Discontinued (Reorder)Start: 93-82-1498cvpv 1 tablet by mouth twice daily Carvedilol 12.5 mg tablet Active 0 .ROUTE .COMPLEX 180 June 09, 2024 8:34am TAKE ONE TABLET BY MOUTH TWICE A DAY Complies with drug therapyStart: 05-13-2019 End: 97-90-2320kgvt 1 mg by mouth twice dailycarvedilol 12.5 mg Tab mg tab(s), Oral, BID, Refills(s) 0 Start Date: 07/03/21 Status: Ordered Medication Dispense Status: Completed Total Allowed Fills: 1 Fills Dispensed: 0citalopram 20 mg oral tablet (20 sources)Serotonin Reuptake InhibitorStart: 43-86-1787gvsb 1 tablet by mouth in the morningcitalopram (CeleXA) 20 mg tablet Take 1 tablet (20 mg) by mouth early in the morning.. 06/06/2025 ActiveStart: 03-83-4508wurn 1 tablet by mouth once dailyCitalopram 20 mg tablet Active 0 .ROUTE .COMPLEX 90 June 06, 2025 12:09pm TAKE 1 TABLET BY MOUTH EVERY DAY Complies with drug therapyStart: 07-26-2024 End: 27-86-4820lnfj 40 mg by mouth once daily40 mg, oral, Daily, First dose on Wed07/26/24 at 0930, Look-alike/sound-alike medication - verify indication for use.Start: 40-77-5471vnlvlzclqu (CeleXA) 40 MG tablet .COMPLEX 02/24/2024 Active Start: 02-08-2024 End: 18-77-1069sxjn 1 tablet by mouth once dailyCitalopram 40 mg tablet Discontinued 0 .ROUTE .COMPLEX 90 1 February 24, 2024 4:27pm August 28, 2024 10:39pm TAKE 1 TABLET BY MOUTH EVERY DAYStart: 02-08-2024 End: 38-60-8301nkwb 1 tablet by mouth once dailyCitalopram 40 mg tablet Discontinued 40 MG PO Daily February 08, 2024 12:00am February 08, 2024 3:33pmStart: 69-83-4695dbme 1 dose by mouth once dailycitalopram Oral, Daily, Refills(s) 0 Start Date: 07/03/21 Status: Ordered Medication Dispense Status: Completed Total Allowed Fills: 1 Fills Dispensed: 0Start: 78-70-0871vvxtvvqrvk Oral, Daily, Refills(s) 0 Start Date: 07/03/21 Status: Ordered Repeat number: 1Start: 80-55-7926egdopsbbbl Oral, Daily, Refills(s) 0 Start Date: 07/03/21 Status: OrderedStart: 05-13-2019 End: 01-08-3317wnpt 1 tablet by mouth at bedtimeCitalopram 10 mg tablet Discontinued 1 TAB PO Bedtime May 13, 2019 12:00am February 08, 2024 3:21pm Start: 05-13-2019 End: 67-76-1996gtpt 1 tablet by mouth at bedtimeCitalopram Discontinued 1 TAB PO Bedtime May 13, 2019 12:00am February 08, 2024 3:21pmempagliflozin 25 mg oral tablet (20 sources)Sodium-Glucose Cotransporter 2 InhibitorStart: 19-73-3181Okrljwtjr 25 mg tablet 07/09/2025 ActiveStart: 35-90-3358ssmm 1 tablet by mouth once daily Empagliflozin (Jardiance) 25 mg tablet Active 25 MG PO Daily July 03, 2025 12:00am Complies with drug therapyStart: 42-43-5103Jxnicypbb 25 mg oral tablet Refills(s) 0 Start Date: 06/09/23 Status: Orderedertugliflozin 15 mg oral tablet (20 sources)Start: 86-01-2228saco 1 mg by mouth once daily in the morning Steglatro 15 mg oral tablet mg tab(s), Oral, qAM, Refills(s) 0 Start Date: 07/03/21 Status: OrderedMedication Dispense Status: Completed Total Allowed Fills: 1 Fills Dispensed: 012 hr hyoscyamine sulfate 0.375 mg extended release oral tablet (20 sources)Start: 06-23-2024 End: 06-33-0760qfda 1 tablet by mouth twice dailyHyoscyamine Sulfate 0.375 mg tablet extended release 12 hr Active 0 .ROUTE .COMPLEX 60 2 June 13, 2025 10:11am TAKE ONE TABLET BY MOUTH TWICE A DAY Complies with drug therapyStart: 04-17-2024 End: 76-06-4807gumb 1 tablet by mouth twice dailyHyoscyamine Sulfate 0.375 mg tablet extended release 12 hr Discontinued 0.375 MG PO Twice daily 60 1 April 17, 2024 11:34am June 23, 2024 8:19amStart: 03-22-2024 End: 50-89-0814tizt 1 tablet by mouth once daily as neededHyoscyamine Sulfate (Levsin) 0.125 mg tablet Discontinued 0.125 MG PO Daily as needed for dyspepsia 30 0 March 22, 2024 12:00am April 17, 2024 11:02amStart: 12-03-2020 End: 98-05-0005hqnb 1 tablet by mouth every twelve hoursHyoscyamine Sulfate 0.375 mg tablet extended release 12 hr Discontinued 0.375 MG PO Every 12 hours J [facility] 2023 12:00am March 22, 2024 11:05amtake 1 tablet by mouth every twelve hours in the morninghyoscyamine ER (Levbid) 0.375 MG 12 hr tablet Take 375 mcg by mouth in the morning and 375 mcg before bedtime. Activelisinopril 5 mg oral tablet (20 sources)Angiotensin Converting Enzyme InhibitorStart: 07-03-2021 End: 76-17-1671ezll 1 tablet by mouth once dailylisinopril 5 mg tablet Take 1 tablet (5 mg) by mouth once daily. 10/20/2023 ActiveStart: 05-13-2019 End: 85-57-0251lxjw 1 tablet by mouth twice dailyLisinopril 5 mg tablet Active 5 MG PO Twice daily 180 1 April 02, 2025 3:44pm Diabetes mellitus Hypertension Type 2 diabetes mellitus without complications Essential (primary) hypertension Complies with drug therapynitroglycerin 0.4 mg sublingual tablet (1 source)Nitrate VasodilatorStart: 07-16-2025 End: 14-67-6106dgyxuynrtmkrw (Nitrostat) 0.4 mg SL tablet Indications: Atherosclerosis [place] coronary artery of [place] heart without angina pectoris , Essential hypertension Place 1 tablet (0.4 mg) under the tongue every 5 minutes if needed for chest pain. May repeat dose every 5 minutes for up to 3 doses total. 25 tablet 3 07/16/2025 08/15/2025 Activeomeprazole 40 mg Cap-DR (3 sources)Start: 04-85-1380gley 1 mg by mouth once dailyomeprazole 40 mg Cap-DR mg cap(s), Oral, Daily, Refills(s) 0 Start Date: 07/03/21 Status: OrderedOne Touch Glucometer (8 sources)Start: 85-19-4844Vgx Touch Glucometer use as directed Nov, Activepioglitazone 30 mg oral tablet (20 sources)Peroxisome Proliferator Receptor alpha Agonist, Peroxisome Proliferator Receptor gamma Agonist, ThiazolidinedioneStart: 01-16-2025 End: 23-54-9203pqki 1 tablet by mouth once dailyPioglitazone 30 mg tablet Active 0 .ROUTE .COMPLEX 90 0 April 16, 2025 9:33am TAKE 1 TABLET BY MOUTH EVERY DAY Complies with drug therapyStart: 03-08-2024 End: 82-15-0130shzx 1 tablet by mouth once dailypioglitazone 30 mg Tab TAKE 1 TABLET BY MOUTH EVERY DAY FOR 30 DAYS Start Date: 03/08/24 Status: Ordered Medication Dispense Status: Completed Total Allowed Fills: 1 Fills Dispensed: 0 Start: 12-06-2023 End: 36-91-2083hyua 1 tablet by mouth once dailyPioglitazone 30 mg tablet Discontinued 0 .ROUTE .COMPLEX 90 1 February 24, 2024 4:27pm April 17, 2024 9:17am TAKE 1 TABLET BY MOUTH EVERY DAY FOR 30 DAYSStart: 12-06-2023 End: 72-34-8540xfgu 1 tablet by mouth once dailyPioglitazone 30 mg tablet Discontinued 30 MG PO Daily December 06, 2023 12:00am December 06, 2023 11:55am Start: 24-04-6716zyuf 1 tablet by mouth every twenty-four hoursActos 15 MG 1 tablet Orally Once a day for 30 days Dec, Active1 ml testosterone cypionate 200 mg/ml injection (20 sources)AndrogenStart: 67-07-5223fbubcy 150 mg by intramuscular injection every other weektestosterone cypionate (Depo-Testosterone) 200 mg/mL injection INJECT 150MG INTRAMUSCULARLY EVERY 2WEEKS 05/08/2025 ActiveStart: 06-14-2024 inject 200 mg by intramuscular injection every other weekTestosterone Cypionate 200 mg/mL oil Active 200 MG IM EVERY 2 WEEKS June 14, 2024 12:00am Complies with drug therapyStart: 51-92-7179ajmuea 200 mg by intramuscular injection every other weekTestosterone Cypionate Active 200 MG IM EVERY 2 WEEKS June 14, 2024 12:00amStart: 08-37-9722glcpbh 200 mg by intramuscular injection every other weekDepo-Testosterone 200 mg/mL intramuscular solution 200 mg, IntraMuscular, q2wk, # 10 mL, Refills(s)5, Pharmacy: [facility]/pharmacy #[id number], 174, cm, 09/15/23 8:08:00 EST, Height/Length Dosing, 143, kg, 09/15/23 8:08:00 EST, Weight Dosing Start Date: 01/25/24 Status: OrderedStart: 55-02-1771cmclhx 200 mg by intramuscular injection every other weekDepo-Testosterone 200 mg/mL intramuscular solution 200 mg, IntraMuscular, q2wk, # 10 mL, Refills(s)5, Pharmacy: [facility]/pharmacy #[id number], 174, cm, 06/09/23 7:58:00 EDT, Height/Length Dosing, 143, kg, 06/09/23 7:58:00 EDT, Weight Dosing Start Date: 06/09/23 Status: Orderedtestosterone cypionate 200 mg/mL IM Erin (20 sources)Start: 42-45-8454vjodfx 150 mg by intramuscular injection every other weektestosterone cypionate 200 mg/mL IM Erin 150 mg, IntraMuscular, q2wk, # 10 mL, Refills(s) 5, Pharmacy: [facility]/pharmacy #[id number], 174, cm, 05/02/25 11:10:00 EDT, Height/Length Dosing, 154.4, kg, 05/02/25 11:10:00 EDT, Weight Dosing Start Date: 05/02/25 Status: Ordered Medication Dispense Status: Completed Quantity: 10.0 Unit: mL Total Allowed Fills: 6 Fills Dispensed: 0 Indications: Testicular hypofunction;Start: 03-18-9894vfjurg 150 mg by intramuscular injection every other weektestosterone cypionate 200 mg/mL IM Erin 150 mg, IntraMuscular, q2wk, # 10 mL, Refills(s) 5, Pharmacy: [facility]/pharmacy #[id number], 174, cm, 05/02/25 11:10:00 EDT, Height/Length Dosing, 154.4, kg, 05/02/25 11:10:00 EDT, Weight Dosing Start Date: 05/02/25 Status: Ordered Quantity: 10.0 Unit: mL Repeat number: 6 Indications: Testicular hypofunction;Start: 43-00-3331wromqx 150 mg by intramuscular injection every other weektestosterone cypionate 200 mg/mL IM Erin 150 mg, IntraMuscular, q2wk, # 10 mL, Refills(s) 3, Pharmacy: [facility]/pharmacy #[id number], 174, cm, 10/26/24 9:18:00 EST, Height/Length Dosing, 147, kg, 10/26/24 9:18:00 EST, Weight Dosing Start Date: 11/08/24 Status: Ordered Quantity: 10.0 Unit: mL Repeat number: 4 Indications: Testicular hypofunction;Start: 11-08-2024 inject 150 mg by intramuscular injection every other weektestosterone cypionate 200 mg/mL IM Erin 150 mg, IntraMuscular, q2wk, # 10 mL, Refills(s) 3, Pharmacy: [facility]/pharmacy #[id number], 174, cm, 10/26/24 9:18:00 EST, Height/Length Dosing, 147, kg, 10/26/24 9:18:00 EST, Weight Dosing Start Date: 11/08/24 Status: Ordered Quantity: 10.0 Unit: mL Repeat number: 4 Indication: Testicular hypofunction Start: 60-87-8606ptbbux 150 mg by intramuscular injection every other week testosterone cypionate 200 mg/mL IM Erin 150 mg, IntraMuscular, q2wk, # 10 mL, Refills(s) 3, Pharmacy: [facility]/pharmacy #[id number], 174, cm, 10/26/24 9:18:00 EST, Height/Length Dosing, 147, kg, 10/26/24 9:18:00 EST, Weight Dosing Start Date: 11/08/24 Status: OrderedStart: 89-20-6528tjmjjd 150 mg by intramuscular injection every other weektestosterone cypionate 200 mg/mL IM Erin 150 mg, IntraMuscular, q2wk, # 10 mL, Refills(s) 3, other reason (Rx) Start Date: 10/26/24 Status: OrderedStart: 70-90-4111dszpsg 150 mg by intramuscular injection every other weektestosterone cypionate 200 mg/mL IM Erin 150 mg, IntraMuscular, q2wk, # 10 mL, Refills(s) 0, [id number], 03/03/23 9:34:00 EDT, Height/Length Dosing, 144.7, kg, 03/03/23 9:34:00 EDT, Weight Dosing Start Date: 03/30/23 Status: OrderedStart: 66-38-2692divund 150 mg by intramuscular injection every other weektestosterone cypionate 200 mg/mL IM Erin 150 mg, IntraMuscular, q2wk, # 10 mL, Refills(s) 0 Start Date: 11/25/22 Status: Ordered testosterone cypionate 200 mg/mL intramuscular solution (11 sources)Start: 84-25-9512bzsswe 200 mg by intramuscular injection every other weektestosterone cypionate 200 mg/mL intramuscular solution 200 mg = 1 mL, IntraMuscular, q2wk, # 1 mL,Refills(s) 5, [id number], 05/27/22 8:55:00 EDT, Height/Length Dosing, 142.9, kg, 05/27/22 8:55:00 EDT, Weight Dosing Start Date: 05/27/22 Status: OrderedStart: 12-78-5541mptcjzxsolfu cypionate 200 mg/mL intramuscular solution 200 mg = 1 mL, IntraMuscular, q4wk, # 1 mL,Refills(s) 5, Pharmacy: [facility]/pharmacy #[id number], 175, cm, 11/11/21 8:23:00 EST, Height/Length Dosing, 142.9, kg, 11/11/21 8:23:00 EST, Weight Dosing Start Date: 01/05/22 Status: OrderedStart: 91-37-9823dctdzctukmto cypionate 200 mg/mL intramuscular solution 200 mg = 1 mL, IntraMuscular, q4wk, # 1 mL,Refills(s) 5, Pharmacy: [facility]/pharmacy #[id number], 175, cm, 07/03/21 9:23:00 EDT, Height/Length Dosing, 136.5, kg, 07/03/21 9:23:00 EDT, Weight Dosing Start Date: 07/07/21 Status: OrderedTestosterone Cypionate 200 mg/mL intramuscular solution (8 sources)Start: 43-31-3526cibiaa 100 mg by intramuscular injection every other weekTestosterone Cypionate 200 mg/mL intramuscular solution 100 mg, IntraMuscular, q2wk, # 10 mL, Refills(s) 0, Pharmacy: [facility]/pharmacy #[id number], 175, cm, 09/09/22 10:01:00 EST, Height/Length Dosing, 139, kg, 09/09/22 10:01:00 EST, Weight Dosing Start Date: 09/23/22 Status: OrderedTestosterone Cypionate 200 mg/mL oil (1 source)Start: 02-62-9394riivly 200 mg by intramuscular injection every other weekTestosterone Cypionate 200 mg/mL oil Active 200 MG IM EVERY 2 WEEKS June 14, 2024 12:00amurea 400 mg/ml topical cream (12 sources)Start: 05-04-2024 End: 59-62-3619skpd (Carmol) 40 % cream Indications: Xerosis cutis Apply 1 application topically in the morning and 1 application before bedtime. 85 g 1 05/04/2024 06/03/2024 ActiveVitamin B12 1000 mcg Tab (20 sources)Start: 01-45-3936vkyy 1 ug by mouth once dailyVitamin B12 1000 mcg Tab mcg tab(s), Oral, Daily, Refills(s) 0 Start Date: 07/03/21 Status: Ordered Vitamin C 250 mg oral tablet (20 sources)Start: 47-11-4228yjbf 1 mg by mouth once dailyVitamin C 250 mg oral tablet mg tab(s), Oral, Daily, Refills(s) 0 Start Date: 07/03/21 Status: Ordered Completed/Discontinued Medications MedicationDrug Class(es)DatesSig (Normalized)Sig (Original)acetaminophen 500 mg oral tablet (1 source)Start: 07-24-2024 End: 15-70-0951rdxr 1 tablet by mouth every six hours as needed for pain and headache and mg, oral, Every 6 hours PRN, mild pain - pain scale 1-3, headaches, temperature greater than 38C, Starting on Wed07/24/24 at 0407, [Warning: Total Acetaminophen not to exceed more than 4 grams (4000 mg) in 24 hours]atorvastatin 20 mg oral tablet (20 sources)HMG-CoA Reductase InhibitorStart: 07-26-2024 End: 14-22-8780gzai 20 mg by mouth once daily20 mg, oral, Daily, First dose on Wed07/26/24 at 0930, Look-alike/sound-alike medication - verify indication for use.Start: 16-30-3374cwju 1 tablet by mouth once dailyAtorvastatin 20 mg tablet Active 0 .ROUTE .COMPLEX 90 June 09, 2024 8:34am TAKE ONE TABLET BYMOUTH DAILY Complies with drug therapyStart: 47-42-6595yxlq 1 tablet by mouth once dailyAtorvastatin Active 0 .ROUTE .COMPLEX June 09, 2024 8:34am TAKE ONE TABLET BY MOUTH DAILYStart: 02-25-2024 End: 34-05-3983qmli 1 tablet by mouth once dailyAtorvastatin 20 mg tablet Discontinued 20 MG PO Daily 90 0 February 25, 2024 12:00am June 09, 2024 8:34amStart: 07-03-2021 End: 67-99-5461xvpr 1 mg by mouth once dailyatorvastatin 10 mg Tab mg tab(s), Oral, Daily, Refills(s) 0 Start Date: 07/03/21 Status: Ordered Medication Dispense Status: Completed Total Allowed Fills: 1 Fills Dispensed: 0calcium chloride 0.0014 meq/ml / potassium chloride 0.004 meq/ml / sodium chloride 0.103 meq/ml / sodium lactate 0.028 meq/ml injectable solution (3 sources)Start: 07-25-2024 End: 38-75-8854780 mL, intravenous, at 492 mL/hr, Administer over 61 Minutes, Once, On Wed07/25/24 at 0930, For 1doseStart: 07-24-2024 End: 28-16-4144wrnw 125 mL intravenously every ktjy010 mL/hr, intravenous, Continuous, Starting on Wed07/25/24 at 0845, For 1 dayglipiZIDE er 10 mg 24 hr extended release oral tablet (20 sources)SulfonylureaStart: 31-31-0568hrnxdOXEM XL (Glucotrol XL) 10 MG 24 hr tablet .COMPLEX 02/24/2024 ActiveStart: 11-05-2023 End: 17-26-3051ppyo 1 tablet by mouth once dailyGlipizide 10 mg tablet extended release 24hr Discontinued 0 .ROUTE .COMPLEX 90 0 February 24, 2024 4:27pm August 28, 2024 10:39pm TAKE 1 TABLET BY MOUTH EVERY DAYStart: 11-05-2023 End: 85-66-9987dszv 1 tablet by mouth once dailyGlipizide Discontinued 0 .ROUTE .COMPLEX November 05, 2023 4:00pm February 21, 2024 8:33am TAKE 1 TABLET BY MOUTH EVERY DAYStart: 66-21-9969bbke 1 tablet by mouth once dailyGlipizide Active 0 .ROUTE .COMPLEX November 05, 2023 4:00pm TAKE 1 TABLET BY MOUTH EVERY DAYStart: 80-71-7206tmov 1 mg by mouth once dailyglipiZIDE 5 mg Tab mg tab(s), Oral, Daily, Refills(s) 0 Start Date: 07/03/21 Status: Ordered Medication Dispense Status: Completed Total Allowed Fills: 1 Fills Dispensed: 0Start: 05-13-2019 End: 87-87-0764zzyj 1 tablet by mouth once dailyGlipizide 10 [...] 50 mg/ml injection (3 sources)Start: 07-24-2024 End: 97-71-0007pbjh 70 mg intravenously every [id number] mL/hr, intravenous, Continuous PRN, blood glucose less [...] pen injector (2 sources)Insulin AnalogStart: 07-26-2024 End: 27-40-7176diibir 400 mg by subcutaneous injection four times [...] before or immediatelyafter a meal.Start: 07-24-2024 End: 69-33-5318vrtwhj 2-10 [IU] by subcutaneous injection every six [...] First dose (after last modification) on Wed07/25/24 [id number], Hold for HRomeprazole 40 mg delayed release oral capsule (20 sources)Proton Pump InhibitorStart: 11-26-2023 End: 84-56-7431jyrm 1 capsule by mouth once daily before mealtimeOmeprazole 40 mg capsule,delayed release(DR/EC) Discontinued 0 .ROUTE .COMPLEX 90 30 1 February 24, 2024 4:27pm August 28, 2024 10:39pm TAKE 1 CAPSULE BY MOUTH EVERY DAY BEFORE A MEALStart: 07-03-2021 End: 78-99-4951mbfs 1 mg by mouth once dailyomeprazole 40 mg Cap-DR mg cap(s), Oral, Daily, Refills(s) 0 Start Date: 07/03/21 Status: Ordered Medication Dispense Status: Completed Total Allowed Fills: 1 Fills Dispensed: 0pantoprazole 40 mg delayed release oral tablet (2 sources)Proton Pump InhibitorStart: 07-28-2024 End: 28-62-973323 mg, oral, Every morning before breakfast, First dose on Wed07/28/24 at 0700, Look-alike/sound-alike medication - verify indication for use. If patient is receiving enteral feeding, consider alternative PPI or continue IV pantoprazole until the delayed-release tablet can be taken orally, Indicati on: GERDStart: 07-25-2024 End: 37-87-847338 mg, intravenous, Every 24 hours scheduled, First dose on Wed07/25/24 at 1515, GERD Look-alike/sound-alike medication - verify indication for use., Indication: Other ([place])Potassium Chloride (1 source)Start: 07-24-2024 End: 28-97-5193dkpgyldzl chloride (K-TAB,KLOR-CON) CR tablet 30-40 mEq prochlorperazine 5 mg/ml injectable solution (1 source)PhenothiazineStart: 07-24-2024 End: 49-52-1663jadl 5 mg intravenously every six hours as needed for nausea and vomiting5 mg, intravenous, Every 6 hours PRN, nausea, vomiting, Starting on Wed07/24/24 at 0355, When administered via IV Push, do not exceed 5 mg per minute sildenafil 100 mg oral tablet (7 sources)Phosphodiesterase 5 InhibitorStart: 37-90-2301qvye 1 tablet by mouth every twenty-four hours as neededViagra 100 mg Tab 100 mg = 1 tab(s), Oral, As Directed, PRN for erectile dysfunction, 1 hour beforesexual activity. Start with 1/2 tablet. Not to exceed 1 tab (100 mg) in 24 hours, # 30 tab(s), Refills(s) 5, Pharmacy: [id number], 175, cm, 03/03/23 9:34... Start Date: 03/17/23 Status: OrderedStart: 76-02-6979pycl 1 tablet by mouth every twenty-four hours as neededViagra 100 mg Tab 100 mg = 1 tab(s), Oral, As Directed, PRN for erectile dysfunction, 1 hour beforesexual activity. Start with 1/2 tablet. Not to exceed 1 tab (100 mg) in 24 hours, # 30 tab(s), Refills(s) 5, Pharmacy: [facility] #[id number], 175, cm, 03/03/23 9:34:00 EDT,... Start Date: 03/03/23 Status: Uemiqev304 ml sodium chloride 9 mg/ml prefilled syringe (2 sources)Start: 07-24-2024 End: mL, intravenous, Every 12 hours scheduled, First dose on Wed07/24/24 at 0900Start: 07-24-2024 End: mL, intravenous, As needed, line care, before and after each intermittent use, Starting on Wed07/24/24 at 0407sulfamethoxazole 800 mg / trimethoprim 160 mg oral tablet (6 sources)Dihydrofolate Reductase Inhibitor Antibacterial, Sulfonamide AntimicrobialStart: 02-23-2024 End: 34-57-2523ancs 1 tablet by mouth twice dailySulfamethoxazole-Trimethoprim 800-160 mg tablet Discontinued 1 TAB PO Twice daily 14 February 23, 2024 12:00am April 17, 2024 9:16amtadalafil 20 mg oral tablet (20 sources)Phosphodiesterase 5 InhibitorStart: 13-55-1877awqj 1 tablet by mouth every hour as needed, then take 1 tablet by mouth every twenty-four hours as neededCialis 20 mg Tab 20 mg = 1 tab(s), Oral, As Directed, PRN for erectile dysfunction, Take 1 tab 1 hour prior to intercourse. Do not exceed 20mg within 24 hours., # 30 tab(s), Refills(s) 3, Pharmacy: [id number], 174, cm, 09/15/23 8:08:00 EST, Height/Length Dosing, 143, kg, 09/15/23 8:08:00 EST, Weight Dosing Start Date: 09/15/23 Status: OrderedStart: 28-76-2829Oaaczb 20 mg Tab 20 mg = 1 tab(s), Oral, As Directed, PRN for erectile dysfunction, Do not exceed 20mg within 24 hours., # 30 tab(s), Refills(s) 3, [facility]: [id number], 174, cm, 06/09/23 7:58:00 EDT, Height/Length Dosing, 143, kg, 06/09/23 7:58:00 EDT, Weight Dosing Start Date: 06/09/23 Status: OrderedTirzepatide (4 sources)Start: 05-01-2024 End: 26-08-5485Bhmavzfbyhu (Mounjaro) 2.5 mg/0.5 mL pen injector Discontinued 2.5 MG SUBCUT every week 2 May 01, 2024 12:00am June 14, 2024 9:33am patient will have voucherStart: 05-01-2024 End: 18-77-0788Eeymizxtxgh (Mounjaro) 2.5 mg/0.5 mL pen injector Discontinued 2.5 MG SUBCUT every week 2023 12:00am June 14, 2024 9:33am patient will have voucherStart: 04-15-2410Njjanhupjzd (Mounjaro) 2.5 mg/0.5 mL pen injector Active 2.5 MG SUBCUT every week 2 April 12:00am patient will have voucherTirzepatide (4 sources)Start: 05-01-2024 End: 21-13-1663Owzrkqlerzx (Mounjaro) 5 mg/0.5 mL pen injector Discontinued 5 MG SUBCUT every week 2 May 01, 2024 12:00am August 07, 2024 10:18am to follow 2.5 mg (voucher)Start: 05-01-2024 End: 06-18-4925Ibsnzwatomf (Mounjaro) 5 mg/0.5 mL pen injector Discontinued 5 MG SUBCUT every week May 01, 2024 12:00am August 07, 2024 10:18am to follow 2.5 mg (voucher)Start: 48-67-3051Kqxmeppagco (Mounjaro) 5 mg/0.5 mL pen injector Active 5 MG SUBCUT every week May 01, 2024 12:00am to follow 2.5 mg (voucher)tirzepatide (MOUNJARO) 5 mg/0.5 mL pen injector (1 source) End: 29-98-9742joofxdknqda (MOUNJARO) 5 mg/0.5 mL pen injector Inject 5 mg under the skin every 7 days. 4Discontinued (Stop Taking at Discharge) Problems Active Problems Problem ClassificationProblemDateDocumented DateEpisodic/ChronicAbdominal pain (20 sources)Lower abdominal pain; Translations: [Lower abdominal pain, unspecified]Onset: 72-71-6429OvdrcxumNeekvwws foot deformities (5 sources)Acquired deformity of toe of right foot; Translations: [Other deformities of toe(s) (acquired), right foot]EpisodicCardiac dysrhythmias (5 sources)Cardiac arrhythmia; Translations: [Cardiac arrhythmia, unspecified] ChronicChronic kidney disease (5 sources)Chronic kidney disease stage 3; Translations: [Chronic kidney disease, stage 3 unspecified]Onset: 97-70-1196NrvntfoWlcapxk obstructive pulmonary disease and bronchiectasis (5 sources)Bronchitis; Translations: [Bronchitis, not specified as acute or chronic]EpisodicChronic ulcer of skin (20 sources)Chronic ulcer of foot; Translations: [Non-pressure chronic ulcer of other part of unspecified foot with unspecified severity]Onset: 03-08-2018 00-62-8668InprjvhZlsbuywkpn heart failure; nonhypertensive (12 sources)Heart failure, unspecified; Translations: [Heart failure]Onset: 16-24-0259GiifndcCxswawrg atherosclerosis and other heart disease (20 sources)Atherosclerotic heart disease of [place] coronary artery without angina pectoris; Translations: [Double coronary vessel disease]Onset: 12-12-2014 30-17-2469VwdzkafLjfmfvfv atherosclerosis and other heart disease (1 source)Coronary atherosclerosis and other heart diseaseOnset: 07-14-2018 Diabetes mellitus with complications (20 sources)Type 2 diabetes mellitus with ulcer; Translations: [Type 2 diabetes mellitus with foot ulcer]Onset: 93-92-5599VihbyeqKcvaokzj mellitus without complication (20 sources)Diabetes mellitus; Translations: [Diabetes mellitus without mention of complication, type II or unspecified type, not stated as uncontrolled]Onset: 211782-61-1910IxdinxoLpllcplw mellitus without complication (1 source)Glycosuria; Translations: [Glycosuria]Onset: 41-33-7570Xfmncyvx Disorders of lipid metabolism (20 sources)Hyperlipidemia; Translations: [Other and unspecified hyperlipidemia] Onset: 68-46-2511DzesbsfGyiwlgtpbm disorders (15 sources)Gastroesophageal reflux disease without esophagitis; Translations: [Gastro-esophageal reflux disease without esophagitis]01-52-3089NngrvkuQcgvfjhno hypertension (20 sources)Essential hypertension; Translations: [Unspecified essential hypertension]Onset: 79-88-3077YapxoqnIczhfjold hypertension (1 source)Essential hypertensionOnset: 27-33-4488Mvteqqlhkuvmf symptoms and ill- defined conditions (20 sources)Nocturia; Translations: [Asymptomatic microscopic hematuria]Onset: 715154-80-2233AftkklrgNjxtmvktmsa of prostate (20 sources)Benign prostatic hypertrophy with outflow obstruction; Translations: [Benign prostatic hyperplasia with lower urinary tract symptoms]Onset: 58-73-0214XbkefbcHgmwjnzvum obstruction without hernia (7 sources)Small bowel obstruction; Translations: [Unspecified intestinal obstruction, unspecified as to partial versus complete obstruction]Onset: 662804-98-1688WjdchcqwNybtbvn and fatigue (19 sources)Fatigue; Translations: [Other fatigue]Onset: EpisodicMood disorders (14 sources)Depression; Translations: [Major depressive disorder, single episode, unspecified]Onset: 86-12-7463WcccwnyLdauhmmvana chest pain (7 sources)Chest discomfort; Translations: [Other chest pain]33-51-8367Ryaqluif Open wounds of extremities (7 sources)Injury of foot; Translations: [Unspecified open wound, unspecified foot, initial encounter]38-40-1389ZhccaeuqYdplcnu on above:Bilateral foot wounds Osteoarthritis (5 sources)Localized, [...] elsewhere classified; Translations: [LYMPHEDEMA NOT ELSEWHERE CLASSIFIED]Onset: 94-90-8493RnzcpmdFqtoq diseases of veins and lymphatics (13 sources)Peripheral venous insufficiency; Translations: [Venous insufficiency (chronic) (peripheral)]Onset: 94-37-3770KsezvxwhIxtdk diseases of veins and lymphatics (2 sources)Venous insufficiency (chronic) (peripheral); Translations: [VENOUS INSUFF CHRONIC PERIPHERAL]Onset: 87-83-5584RoepldubCtawo endocrine disorders (20 sources)Testicular hypofunction; Translations: [Testicular hypofunction] Onset: 12-77-6212RqlelinYjjtf endocrine disorders (20 sources)Male hypogonadism; Translations: [Testicular hypofunction]09-02-2022 ChronicOther endocrine disorders (5 sources)Disorder of endocrine system; Translations: [Endocrine disorder, unspecified]EpisodicOther injuries and conditions due to external causes (5 sources)History of fall; Translations: [History of falling]EpisodicOther male genital disorders (20 sources)Male erectile dysfunction, unspecified; Translations: [Erectile dysfunction]Onset: 16-55-1003DccbpdrWbayl nutritional; endocrine; and metabolic disorders (18 sources)Body mass index 40+ - severely obese; Translations: [Body Mass Index 40.0-44.9, adult]Onset: 337382-53-2458NgrhpdyTfjvh nutritional; endocrine; and metabolic disorders (17 sources)Morbid obesity; Translations: [Morbid obesity]95-93-5133AobpwwyHghcm nutritional; endocrine; and metabolic disorders (1 source)Morbid (severe) obesity due to excess calories; Translations: [MORBID SEVERE OBES D/T EXCESS DAVID]Onset: 01-21-1695AsqwdntKqwyx nutritional; endocrine; and metabolic disorders (1 source)Body mass index (BMI) 45.0-49.9, adult; Translations: [BODY MASS INDEX BMI 45.0-49.9 ADULT]Onset: 55-06-6978UcfhftiHfztc nutritional; endocrine; and metabolic disorders (10 sources)Obesity; Translations: [Obesity, unspecified]Onset: 07-13-2014 07-10-9523KmmhfhnAlplz nutritional; endocrine; and metabolic disorders (3 sources)Obesity, unspecified; Translations: [Obesity, unspecified]04-17-2024 ChronicOther screening for suspected conditions (not mental disorders or infectious disease) (20 sources)Decreased testosterone level ; Translations: [Blood chemistry abnormal]Onset: 311859-60-0946EcjihutkEhjcj skin disorders (5 sources)Callosity; Translations: [Corns and callosities]EpisodicOther skin disorders (5 sources)Hemosiderin pigmentation of lower limb due to varicose veins of lower limb; Translations: [Other specified disorders of pigmentation]04-17-2024 EpisodicOther skin disorders (3 sources)Other specified disorders of pigmentation; Translations: [Dyschromia, unspecified]20-91-1810PsjmryerKptqt skin disorders (8 sources)Asteatosis cutis; Translations: [Xerosis cutis]20-95-5758Aroapkqz Other skin disorders (6 sources)Fissure in skin; Translations: [Changes in skin texture]05-14-2024 EpisodicPeripheral and visceral atherosclerosis (19 sources)Intermittent claudication; Translations: [Peripheral vascular disease, unspecified]34-22-9876UoztgkaUcrdgbtt codes; unclassified (13 sources)Obstructive sleep apnea syndrome; Translations: [Obstructive sleep apnea]Onset: 481372-70-8216IzbhzchUvtfpawi codes; unclassified (7 sources)Sleep apnea; Translations: [Sleep apnea, unspecified]05-14-2019 ChronicResidual codes; unclassified (2 sources)Obstructive sleep apnea (adult) (pediatric); Translations: [Obstructive sleep apnea (adult) (pediatric)]Onset: 82-01-9449NfkzkokIrlhsrok codes; unclassified (8 sources)Edema; Translations: [Localized edema]EpisodicResidual codes; unclassified (8 sources)Localized edema; Translations: [Localized edema]Onset: 02-24-2022 73-49-4835ZggeajfrYycjsdmz codes; unclassified (5 sources)Tobacco user; Translations: [Tobacco use]EpisodicResidual codes; unclassified (5 sources)Bilateral lower limb edema; Translations: [Localized edema]04-17-2024 EpisodicResidual codes; unclassified (1 source)Pain, unspecified; Translations: [Pain, unspecified]Onset: 07-23-2024 EpisodicScreening and history of mental health and substance abuse codes (20 sources)Ex-smoker; Translations: [Personal history of tobacco use]Onset: 665664-19-2215MmlidhjdZpmkpir on above:quit 2012 1ppd;Spondylosis; intervertebral disc disorders; other back problems (5 sources)Neck pain; Translations: [Cervicalgia]EpisodicSuperficial injury; contusion (5 sources)Superficial foreign body, right foot, initial encounter; Translations: [Superficial foreign body, right foot, initial encounter]Episodic Unclassified (2 sources)Athscl heart disease of [place] coronary artery w/o ang pctrs / I25.10(ICD-9)Onset: 02-99-3186Nfnjapayiebo (20 sources)Asymptomatic microscopic okmhwplvf42-37-6167Hqorfnfwkocn (1 source)CONTACT W/AND (SUSP) EXPOS COVID-19; Translations: [CONTACT W/AND (SUSP) EXPOS COVID-19]Onset: 24-38-8361Venczctj veins of lower extremity (12 sources)Pain co-occurrent and due to varicose veins of bilateral legs; Translations: [Varicose veins of bilateral lower extremities with pain] 61-81-9158JdzgmgiuDgjaw infection (1 source)COVID-19; Translations: [COVID-19]Onset: 08-07-2022 Past or Other Problems Problem ClassificationProblemDateDocumented DateEpisodic/ChronicAcute and unspecified renal failure (6 sources)Acute kidney failure, unspecified; Translations: [Acute renal failure syndrome]Onset: 50-79-1118WiizuktbZryfuvxlx infection; unspecified site (5 sources)Bacterial infectious disease; Translations: [Bacterial infection, unspecified, in conditions classified elsewhere and of unspecified site]Onset: 88-65-6115ImaruuwaLyvrrybglr associated with dizziness or vertigo (5 sources)Dizziness and giddiness; Translations: [Dizziness and giddiness] Onset: 19-79-1723QsymwcxlGxurbynl atherosclerosis and other heart disease (1 source)Presence of coronary angioplasty implant and graft; Translations: [PRESENCE COR ANGPLSTY IMPLANT AND GRAFT]Onset: 98-45-9888OahcbqunPnsem and electrolyte disorders (1 source)Dehydration; Translations: [DEHYDRATION]Onset: 98-28-1891NexywgflFbxaw valve disorders (5 sources)O/E - cardiac murmur; Translations: [Cardiac murmur, unspecified] Onset: 58-79-8147PhragufhKgqnlk and vomiting (1 source)Nausea with vomiting, unspecified; Translations: [NAUSEA WITH VOMITING UNSPECIFIED]Onset: 92-64-3347UupsvuouSgjjgepkqtyj breast conditions (5 sources)Breast lump; Translations: [Unspecified lump in unspecified breast] Onset: 93-94-2830IsuegpoaHhyme aftercare (1 source)terminal operator (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; Translations: [DETONATOR MAKER CURRENT USE OF ASPIRIN]Onset: 89-29-3484PugbyrujDmnio aftercare (1 source)terminal operator (current) use of oral hypoglycemic drugs; Translations: [HALFWAY USE ORAL HYPOGLYCEMIC DX]Onset: 58-93-7663YgjsnnwtIwymz aftercare (1 source)Other group home (current) drug therapy; Translations: [OTH DETONATOR MAKER CURRENT DRUG THERAPY]Onset: 73-17-9123UkcacgpfAprxm gastrointestinal disorders (1 source)Diarrhea, unspecified; Translations: [DIARRHEA UNSPECIFIED]Onset: 03-42-8056HucnoeqsSafah gastrointestinal disorders (5 sources)Diarrhea; Translations: [Diarrhea, unspecified]Onset: 01-04-2014 EpisodicOther lower respiratory disease (1 source)Personal history of pneumonia (recurrent); Translations: [PERSONAL HX OF PNEUMONIA RECURRENT]Onset: 05-59-8679BjwyaapxSbseq skin disorders (1 source)Nail dystrophy; Translations: [NAIL DYSTROPHY]Onset: 01-26-2022 EpisodicOther skin disorders (1 source)Corns and callosities; Translations: [CORNS AND CALLOSITIES]Onset: 36-64-8989UpnfuyckBspma skin disorders (1 source)Xerosis cutis; Translations: [XEROSIS CUTIS]Onset: 82-86-5096Zwhwyxev Other skin disorders (5 sources)Hypertrophic condition of skin; Translations: [Other hypertrophic disorders of the skin]Onset: 37-22-3161ChdluwgtXxwzmgpuub (except in labor) (2 sources)Sepsis, unspecified organism; Translations: [Severe sepsis without septic shock]Onset: 82-36-6775GfcqyjpmSift and subcutaneous tissue infections (14 sources)Cellulitis of right lower limb; Translations: [Cellulitis and abscess of buttock]Onset: 49-94-2018Aydjnbhm Results Test NameValueInterpretationReference RangeFacilityUrology Office/Clinic Noteon 52-84-1194Prrmmhd Office/Clinic NoteUrology Office/Clinic Note Chief Complaint f/u [...] SARS-CoV-2 (COVID-19) mRNA B (more content not included)...[facility] HospitalComment on above:Result Comment: Electronically Signed By: Lety Gonzalez MD\.br\Date and Time Signed: 05/02/25 12:28EDT\.br\Electronically Co- Signed By: Joycelyn Cardoso\.br\Date and Time Co-Signed: 05/02/25 12:03 EDT Testost Totalon 01-37-8062Xxklesbkd Jkr215 ng/dLInvalid Interpretation Code [id number] Health Urbana HospitalComment on above:Result Comment: Adult male reference interval is based on a population of healthy nonobese males (BMI <30) between 19 and 39 years old. irina Lester.al. JCEM 2017,102;3219-0911. PMID: [id number]. Performed at: [facility] [address] [place], [place] [id number] PhD Arianne FonsecaPerformed By: #### [id number] #### [facility] [address] [place] [address]Tilzcqfoqoqc 88-62-7245Kippkseatg (Bld) [Volume fraction]47.0 % Ukngkq40.7-49.0Mercy Health Urbana HospitalComment on above:Performed By: #### [id number] #### [facility] [address] [place], [place] [address]NIB Screen, Totalon 73-58-7502LKN Scrn Tot.0.8 ng/mLNormal 0.1-3.5Fbrittaney [facility] CampusComment on above:Result Comment: The concentration of PSA determined by different manufacturers can vary due to diffe rences in assay methods and reagent specificity. Values obtained from different assay methods cannot be used interchangeably. The methodology used for this result was chemiluminescence using e[employer]'s Access [employer]brite[employer] PSA reagent.Performed By: #### [id number] #### [facility] [address] [place] [address]Allsrtbtif Visit Summaryon 00-75-4729Smdspsdzcf Visit Summary Ambulatory Visit Summary SUNNYHOSEA CLAYFRANCISCA [...] AM EDT With: Where: [facility] [address] [facility] [place] [address]- Wednesday 8:00 AM EDT With: Where: [facility] [address] [facility] [address] [facility] [place] [address]- Wednesday 11:00 AM EDT With: Carlos LIZAMA, Lety Scott Where: [facility] [address] [place] [address]- Medications What How Much When Why Instructions [...] signed up for this yet, please contact [employer] at [phone] to get signed up today. Language Information Language assistance services are available as needed. [facility] HospitalAmbulatory Visit Summaryon 78-51-6399Kxotflxnjq Visit SummaryAmbulatory Visit Summary JOHNATHAN CORREA :1960 [...] EDT With: Where: [facility] [address] [address]- Wednesday 8:00 AM EDT With: Where: [facility] [address] [address]- Wednesday 8:45 AM EDT With: Carlos LIZAMA, Lety Scott Where: [facility] [address] [address]- Medications What How Much When Why Instructions [...] you for choosing us for your care. [facility] HospitalAmbulatory Visit Summaryon 01-38-7497Lpkrrqpwaz Visit SummaryAmbulatory Visit Summary JOHNATHAN CORREA :1960 Visit Date:01/31/2025 Ambulatory Visit Instructions Your Care Team Attending Physician - Marlee GRIFFITH, oD Primary Care Physician - WOJCIECH LIZAMA, LUIS [...] EDT With: Where: [facility] [address] [id number]- Wednesday 8:00 AM EDT With: Where: [facility] [address] [id number]- Wednesday 8:45 AM EDT With: Lety Gonzalez MD Where: [facility] [address] [address]- Medications What How Much When Why Instructions [...] you for choosing us for your care. [facility] HospitalAmbulatory Visit Summaryon 04-56-2249Jzvsrabgsw Visit SummaryAmbulatory Visit Summary SUNNY JOHNATHAN Valentino [...] AM EDT With: Where: [facility] [address] [place] [address]- Wednesday 8:00 AM EDT With: Where: [facility] [address] [facility] [place] [address]- Wednesday 8:45 AM EDT With: Carlos LIZAMA, Lety Scott Where: [facility] [address] [place] [address]- Medications What How Much When Why Instructions [...] you for choosing us for your care. [facility] HospitalAmbulatory Visit Summaryon 06-77-1147Ffxxzdfipa Visit SummaryAmbulatory Visit Summary JOHNATHAN CORREA :1960 [...] AM EDT With: Where: [facility] [address] [place] [address]- Wednesday 8:45 AM EDT With: Carlos LIZAMA, Lety Scott Where: [facility] [address] [place] [address]- Medications What How Much When Why Instructions [...] you for choosing us for your care. [facility] HospitalAmbulatory Visit Summaryon 59-57-4098Bmwpswjiud Visit SummaryAmbulatory Visit Summary JOHNATHAN CORREA :1960 [...] EST With: Where: [facility] [address] [address]- Wednesday 8:00 AM EDT With: Where: [facility] [address] [id number]- Wednesday 8:45 AM EDT With: Lety Gonzalez MD Where: [facility] [address] [address]- You Need to Schedule the Following Appointments [...] Testosterone also gives men (more content not included)...[facility] HospitalUrology Office/Clinic Noteon 45-35-2480Ioejmks Office/Clinic Note Urology Office/Clinic Note Chief Complaint [...] Use:. Cigarettes, Household tob (more content not included)...[facility] HospitalComment on above:Result Comment: Electronically Signed By: Lety Gonzalez MD\.br\Date and Time Signed: 10/26/24 15:15EST\.br\Electronically Co- Signed By: Felicia Elmore.br\Date and Time Co-Signed: 10/26/24 09:59 EST Testost Totalon 96-87-1763Gaxhkxziyolg [Mass/Vol]732 ng/dLInvalid Interpretation Ultk564-407AqbegyMercy Health Urbana HospitalComment on above:Result Comment: Adult male reference interval is based on a population of healthy nonobese males (BMI <30) between 19 and 39 years old. Tayler et.al. [facility] 2017,102;6251-3296. PMID: [id number]. Performed at: [address] [id number] PhD Arianne Thorntonformed By: #### [id number] #### [facility] [address] [place], [place] [address]Qmicwmg Totalon 61-70-5229Dnzzcxyoqwqf [Mass/Vol]630 ng/dL Invalid Interpretation Inix376-421BbavdtMercy Health Urbana HospitalComment on above: Result Comment: Adult male reference interval is based on a population of healthy nonobese males (BMI <30) between 19 and 39 years old. Tayler et.cj. [facility] 2017,102;9981-1973. PMID: [id number]. Performed at: [address] [id number] PhD Arianne Thorntonformed By: #### [id number] #### [facility] [address] [place], [place] [address]NTE auto differentialon 55-64-8452Ikaclwtne (Bld) [#/Vol]0 10*3/uLProMedica Health SystemBasophils/100 WBC (Bld)0.5 %[facility] Health SystemEosinophils (Bld) [#/Vol]0.3 10*3/uLProMedica Health SystemEosinophils/100 WBC (Bld)3.4 %[facility] Health SystemErythrocyte distribution width (RBC) [Ratio]16.2 %High11.5 - 15.0 %[facility] Health SystemHematocrit (Bld) [Volume fraction]43.7 %39 - 49 %[facility] Health SystemHemoglobin (Bld) [Mass/Vol]15 g/dL13.0 - 17.0 g/dLUniversity Hospitals Cleveland Medical CenterInterpretation and review of laboratory resultsAbnormalUniversity Hospitals Cleveland Medical CenterLymphocytes (Bld) [#/Vol]1.3 10*3/uLUniversity Hospitals Cleveland Medical CenterLymphocytes/100 WBC (Bld)14.2 %[facility] HospitalH (RBC) [Entitic mass]26.7 pgLow27 - 34 pgPSamaritan North Health CenterMCHC (RBC) [Mass/Vol]34.3 g/dL32 - 36 g/dLUniversity Hospitals Cleveland Medical CenterMCV (RBC) [Entitic vol]78 fLLow80 - 100 [facility] HospitalMonocytes (Bld) [#/Vol]0.6 10*3/uL [facility] CenterMonocytes/100 WBC (Bld)6.6 %[facility] Neutrophils (Bld) [#/Vol]7 10*3/uLHighUniversity Hospitals Cleveland Medical CenterNeutrophils/100 WBC (Bld)75.3 %[facility] Medical CenterPlatelet mean volume (Bld) [Entitic vol]9 fL7 - 12 [facility] HospitalPlatelets (Bld) [#/Vol]161 10*3/uLUniversity Hospitals Cleveland Medical CenterRBC (Bld) [#/Vol]5.61 10*6/uLUniversity Hospitals Cleveland Medical CenterWBC corrected for nucl RBC Auto (Bld) [#/Vol]9.2PEllwood Medical Center Comprehensive metabolic panelon 80-36-8644Yjtfinp [Mass/Vol]3.3 g/dL3.2 - 5.3 g/dLUniversity Hospitals Cleveland Medical CenterALP [Catalytic activity/Vol]64 U/L39 - 130 U/L [facility] CenterALT No additional P-5'-P [Catalytic activity/Vol]15 U/L0 - 40 U/[facility] HospitalAnion gap [Moles/Vol]8 mmol/L5 - 15 mmol/L [facility] CenterAST [Catalytic activity/Vol]21 U/L0 - 41 U/[facility] HospitalBilirubin [Mass/Vol]1.1 mg/dL0.3 - 1.2 mg/dLUniversity Hospitals Cleveland Medical Center Calcium [Mass/Vol]8.2 mg/dLLow8.5 - 10.5 mg/dLACMC Healthcare System SystemChloride [Moles/Vol]101 mmol/L98 - 109 mmol/[facility] SystemCO2 [Moles/Vol]26 mmol/L22 - 32 mmol/[facility] SystemCreatinine [Mass/Vol]0.82 mg/dL0.60 - 1.30 mg/dLUniversity Hospitals Cleveland Medical CenterComment on above:METHOD TRACEABLE TO [facility] STANDARDeGFR (CKD-EPI)non-race dependent- [facility] HospitalComment on above: Reported eGFR is based on the CKD-EPI 2020 equation that does not use a race coefficient. Glucose [Mass/Vol]132 mg/wNKcsc32 - 99 mg/dLUniversity Hospitals Cleveland Medical Center Interpretation and review of laboratory resultsAbBrunswick Hospital Center Potassium [Moles/Vol]3.4 mmol/LLow3.5 - 5.0 mmol/[facility] SystemProtein [Mass/Vol]5.9 g/dLLow6.0 - 8.0 g/dLCentral Carolina Hospitalodium [Moles/Vol]135 mmol/L134 - 146 mmol/[facility] HospitalUrea nitrogen [Mass/Vol]10 mg/dL5 - 27 mg/dLUniversity Hospitals Cleveland Medical CenterGlucose Glucometer (BldC) [Mass/Vol]on 39-41-7349Dglwskf [Mass/Vol]149 mg/qOCfej05 - 99 mg/dLUniversity Hospitals Cleveland Medical Center Interpretation and review of laboratory resultsAbBrunswick Hospital Center ProMedicMemorial HospitalGlucose [Mass/Vol]231 mg/xQSext88 - 99 mg/dLUniversity Hospitals Cleveland Medical CenterInterpretation and review of laboratory resultsAbAspirus Langlade Hospital SystemMagnesiumon 98-34-4021Vvvsyniqk [Mass/Vol] 1.9 mg/dL1.8 - 2.6 mg/dLUniversity Hospitals Cleveland Medical CenterMagnesium [Mass/Vol]2 mg/dL1.8 - 2.6 mg/dLUniversity Hospitals Cleveland Medical CenterMagnesium [Mass/Vol]on 86-90-9844FebTeqszmSamaritan North Health CenterNo Panel Informationon 34-03-8374VxaDqvwcwSamaritan North Health CenterCBC auto differentialon 55-03-0407Pahbczywz (Bld) [#/Vol]0.1 10*3/[facility]aBasophils/100 WBC (Bld)0.6 %[facility] CenterEosinophils (Bld) [#/Vol]0.2 10*3/[facility]aEosinophils/100 WBC (Bld)2.5 %[facility] CenterErythrocyte distribution width (RBC) [Ratio]16.4 %High11.5 - 15.0 %[facility] CenterHematocrit (Bld) [Volume fraction]45.6 %39 - 49 % [facility] CenterHemoglobin (Bld) [Mass/Vol]15.6 g/dL13.0 - 17.0 g/dL [facility] CenterInterpretation and review of laboratory resultsAbnormal [facility] CenterLymphocytes (Bld) [#/Vol]1.1 10*3/[facility]aLymphocytes/100 WBC (Bld)10.8 %[facility] CenterMCH (RBC) [Entitic mass]26.8 pgLow27 - 34 [facility] DublinMCHC (RBC) [Mass/Vol]34.3 g/dL32 - 36 g/dLUniversity Hospitals Cleveland Medical CenterMCV (RBC) [Entitic vol]78 fLLow80 - 100 fL [facility] CenterMonocytes (Bld) [#/Vol]0.6 10*3/[facility] Monocytes/100 WBC (Bld)6.5 %[facility] CenterNeutrophils (Bld) [#/Vol]7.9 10*3/[facility] HospitalNeutrophils/100 WBC (Bld)79.6 %[facility] CenterPlatelet mean volume (Bld) [Entitic vol]8.7 fL7 - 12 [facility] HospitalPlatelets (Bld) [#/Vol]162 10*3/[facility]aRBC (Bld) [#/Vol]5.83 10*6/[facility] HospitalWBC corrected for nucl RBC Auto (Bld) [#/Vol]9.9Washington Health SystemCobalamin (Vitamin B12) [Mass/Vol]on 10-17-0571AapVytvrgSamaritan North Health CenterComprehensive metabolic panelon 24-96-1790Klibjdi [Mass/Vol]3.6 g/dL3.2 - 5.3 g/dLProSamaritan North Health Center SystemALP [Catalytic activity/Vol]66 U/L39 - 130 U/[facility] SystemALT No additional P-5'-P [Catalytic activity/Vol]15 U/L0 - 40 U/[facility] SystemAnion gap [Moles/Vol]8 mmol/L5 - 15 mmol/[facility] SystemAST [Catalytic activity/Vol]22 U/L0 - 41 U/[facility] SystemBilirubin [Mass/Vol]1.3 mg/dLHigh0.3 - 1.2 mg/dLACMC Healthcare System SystemCalcium [Mass/Vol] 8.6 mg/dL8.5 - 10.5 mg/dLProChildren'S Hospital For RehabilitationChloride [Moles/Vol]99 mmol/L98 - 109 mmol/[facility] SystemCO2 [Moles/Vol]30 mmol/L22 - 32 mmol/L [facility] CenterCreatinine [Mass/Vol]0.91 mg/dL0.60 - 1.30 mg/dLUniversity Hospitals Cleveland Medical CenterComment on above:METHOD [facility] STANDARDeGFR (CKD-EPI)non-race dependent- [facility] HospitalComment on above: Reported eGFR is based on the CKD-EPI 2020 equation that does not use a race coefficient. Glucose [Mass/Vol]136 mg/wMBekf33 - 99 mg/dLACMC Healthcare System SystemPotassium [Moles/Vol]3.9 mmol/L3.5 - 5.0 mmol/LPrDenver Springs Health SystemProtein [Mass/Vol] 6.7 g/dL6.0 - 8.0 g/dLACMC Healthcare System SystemSodium [Moles/Vol]137 mmol/L134 - 146 mmol/[facility] SystemUrea nitrogen [Mass/Vol]11 mg/dL5 - 27 mg/dL [facility] CenterFerritinon 72-02-7458Bbpfzzud [Mass/Vol]96 ng/mL24 - 336 ng/mLUniversity Hospitals Cleveland Medical CenterFerritin [Mass/Vol]on 64-24-6818SheDojptn Health SystemFolateon 79-95-0526Slskro [Mass/Vol]8.4 ng/mL5.8 - PINF ng/mLUniversity Hospitals Cleveland Medical CenterComment on above:NEW REFERENCE RANGEFolate [Mass/Vol]on 07-27-2024 [facility] CenterGlucose Glucometer (BldC) [Mass/Vol]on 77-93-1445Xjgrssk [Mass/Vol]203 mg/dCCwwa39 - 99 mg/dLUniversity Hospitals Cleveland Medical CenterInterpretation and review of laboratory resultsAbnoWellSpan York HospitalGlucose [Mass/Vol]190 mg/hWOsci60 - 99 mg/dLUniversity Hospitals [facility] Medical Center Interpretation and review of laboratory resultsAbnoOakleaf Surgical HospitalGlucose [Mass/Vol]130 mg/sLDeaw87 - 99 mg/dLUniversity Hospitals Cleveland Medical CenterInterpretation and review of laboratory resultsAbnormLECOM Health - Corry Memorial HospitalIron and TIBCon 94-06-8898Lgqddrucsdbyum and review of laboratory resultsAbnoCentral Harnett HospitalIron [Mass/Vol]34 ug/dLLow50 - 212 ug/dLMercy Healthn binding capacity [Mass/Vol]283 ug/dL250 - 425 ug/dLMercy Healthn saturation [Mass fraction]12Low [facility] SystemMagnesiumon 29-56-2582Rawezdmqn [Mass/Vol]1.7 mg/dLLow1.8 - 2.6 mg/dLUniversity Hospitals Cleveland Medical CenterNo Panel Information on 51-45-7304Ocvzrooabfyrxy and review of laboratory resultsAbChester County HospitalVitamin B12on 57-59-4334Ybrpvulpe (Vitamin B12) [Mass/Vol]268 pg/mL180 - 914 pg/mLUniversity Hospitals Cleveland Medical CenterCBC auto differentialon 25-83-8490Mqqcmqfdr (Bld) [#/Vol]0.1 10*3/uLUniversity Hospitals Cleveland Medical CenterBasophils/100 WBC (Bld)0.5 %[facility] CenterEosinophils (Bld) [#/Vol]0.1 10*3/[facility]aEosinophils/100 WBC (Bld)0.9 %[facility] CenterErythrocyte distribution width (RBC) [Ratio]16.8 %High11.5 - 15.0 %[facility] CenterHematocrit (Bld) [Volume fraction]46 %39 - 49 %[facility] CenterHemoglobin (Bld) [Mass/Vol]15.5 g/dL13.0 - 17.0 g/dLUniversity Hospitals Cleveland Medical CenterInterpretation and review of laboratory resultsAbnoCentral Harnett HospitalLymphocytes (Bld) [#/Vol]1.3 10*3/[facility] Lymphocytes/100 WBC (Bld)8 %[facility] CenterMCH (RBC) [Entitic mass]26.5 pgLow27 - 34 [facility] DublinMCHC (RBC) [Mass/Vol]33.8 g/dL32 - 36 g/dL [facility] CenterMCV (RBC) [Entitic vol]78 fLLow80 - 100 [facility] HospitalMonocytes (Bld) [#/Vol]1.2 10*3/[facility] Monocytes/100 WBC (Bld)7.5 %[facility] CenterNeutrophils (Bld) [#/Vol]13.3 10*3/[facility] HospitalNeutrophils/100 WBC (Bld)83.1 %[facility] CenterPlatelet mean volume (Bld) [Entitic vol]9.3 fL7 - 12 [facility] HospitalPlatelets (Bld) [#/Vol]130 10*3/[facility] MacombRBC (Bld) [#/Vol]5.87 10*6/[facility] HospitalWBC corrected for nucl RBC Auto (Bld) [#/Vol]15.9HSpecial Care Hospital Comprehensive metabolic panelon 46-55-6224Kzffbbg [Mass/Vol]3.5 g/dL3.2 - 5.3 g/dLUniversity Hospitals Cleveland Medical CenterALP [Catalytic activity/Vol]69 U/L39 - 130 U/L [facility] CenterALT No additional P-5'-P [Catalytic activity/Vol]11 U/L0 - 40 U/[facility]aritan HospitalAnion gap [Moles/Vol]9 mmol/L5 - 15 mmol/L [facility] CenterAST [Catalytic activity/Vol]17 U/L0 - 41 U/[facility]itan HospitalBilirubin [Mass/Vol]1.3 mg/dLHigh0.3 - 1.2 mg/dLUniversity Hospitals Cleveland Medical CenterCalcium [Mass/Vol]8.4 mg/dLLow8.5 - 10.5 mg/dLUniversity [facility]als [facility] Center Chloride [Moles/Vol]101 mmol/L98 - 109 mmol/[facility] SystemCO2 [Moles/Vol]30 mmol/L22 - 32 mmol/[facility] HospitalCreatinine [Mass/Vol] 0.93 mg/dL0.60 - 1.30 mg/dLUniversity Hospitals Cleveland Medical CenterComment on above:METHOD TRACEABLE TO IDMO STANDARDeGFR (CKD-EPI)non-race dependent- [facility] HospitalComment on above: Reported eGFR is based on the CKD-EPI 2020 equation that does not use a race coefficient. Glucose [Mass/Vol]134 mg/dWQxux32 - 99 mg/dLUniversity Hospitals [facility] Center Interpretation and review of laboratory resultsAbBrunswick Hospital Center Potassium [Moles/Vol]3.9 mmol/L3.5 - 5.0 mmol/[facility] HospitalProtein [Mass/Vol]6.3 g/dL6.0 - 8.0 g/dLCentral Carolina Hospitalodium [Moles/Vol]140 mmol/L134 - 146 mmol/[facility] HospitalUrea nitrogen [Mass/Vol]16 mg/dL5 - 27 mg/dLUniversity Hospitals Cleveland Medical CenterGlucose Glucometer (BldC) [Mass/Vol]on 73-93-4734Gbzzlev [Mass/Vol]143 mg/jTGscu69 - 99 mg/dLUniversity Hospitals [facility] Center Interpretation and review of laboratory resultsAbAmery Hospital and ClinicGlucose [Mass/Vol]143 mg/qHOmkm17 - 99 mg/dLUniversity Hospitals Cleveland Medical CenterInterpretation and review of laboratory resultsAbChester County HospitalGlucose [Mass/Vol]177 mg/ySItys16 - 99 mg/dL [facility] SystemInterpretation and review of laboratory resultsAbnormal ProMbeacon behavioral hospitala [facility] SystemProSamaritan North Health Center SystemGlucose [Mass/Vol]141 mg/tZQwdl53 - 99 mg/dLProSamaritan North Health Center SystemInterpretation and review of laboratory results AbnormalProChildren'S Hospital For RehabilitationProSamaritan North Health Center SystemGlucose [Mass/Vol]143 mg/zSEhmi85 - 99 mg/dLACMC Healthcare System SystemInterpretation and review of laboratory resultsAbnormalUniversity Hospitals Cleveland Medical CenterProSamaritan North Health Center SystemLactate (P yoan) [Moles/Vol]on 88-33-1352HzhYokvgmSamaritan North Health CenterLactate w/ Reflexon 29-85-1810Wjnqqgn (P yoan) [Moles/Vol]1.4 mmol/L0.4 - 2.0 mmol/LPrPike Community HospitalComment on above: Result did not trigger repeat Lactate, re-order if needed. Magnesiumon 02-31-5320Wpdzpktuj [Mass/Vol]2 mg/dL1.8 - 2.6 mg/dLUniversity Hospitals Cleveland Medical CenterNo Panel Informationon 99-61-9197PpqKteqbk Health SystemUrinalysison 02-32-4960Zluoyswla Ql (U)SMALLAbnormalNegative^NegativeUniversity [facility]als [facility] Comment on above:Not confirmed, interpret positive results with caution.Color (U)YELLOWYELLOW^YELLOWUniversity Hospitals Cleveland Medical CenterGlucose (U) [Mass/Vol]100 mg/dL AbnormalNegative^NegativeUniversity Hospitals Cleveland Medical CenterHemoglobin Auto test strip Ql (U)NegativeNegative^NegativeUniversity Hospitals Cleveland Medical CenterInterpretation and review of laboratory resultsAbnormalACMC Healthcare System SystemKetones (U) [Mass/Vol]Negative Negative^Negative mg/dLUniversity Hospitals Cleveland Medical CenterLeukocyte esterase Auto test strip Ql (U)NegativeNegative^NegativeUniversity Hospitals Cleveland Medical CenterNitrite Auto test strip Ql (U)NegativeNegative^NegativeUniversity Hospitals Cleveland Medical CenterpH (U)6.5 [pH]5.0 - 8.5 [facility] SystemProtein (U) [Mass/Vol]TraceAbnormalNegative^Negative mg/dLUniversity Hospitals Cleveland Medical CenterRBC Auto (Urine sed) [#/Area]2PFormerly Morehead Memorial Hospitalpecific gravity Refractometry automated (U) [Rel density]1.0251.003 - 1.035[facility] CenterTurbidity Ql (U)CLEARCLEAR^CLEARUniversity Hospitals Cleveland Medical CenterUrobilinogen Qn (U)4HighNIMissouri Southern HealthcareWBC Auto (Urine sed) [#/Area][address] [place], [place] [address]CBC auto differentialon 67-65-3105Oulmdzwdd (Bld) [#/Vol]0 10*3/uLUniversity Hospitals Cleveland Medical CenterBasophils/100 WBC (Bld)0.3 %[facility] CenterEosinophils (Bld) [#/Vol]0 10*3/uLUniversity Hospitals Cleveland Medical CenterEosinophils/100 WBC (Bld)0.2 %[facility] CenterErythrocyte distribution width (RBC) [Ratio]16.9 %High11.5 - 15.0 %[facility] Hematocrit (Bld) [Volume fraction]51.3 %High39 - 49 %[facility] Hemoglobin (Bld) [Mass/Vol]17.2 g/wDSnyt95.0 - 17.0 g/dLUniversity Hospitals [facility] Interpretation and review of laboratory resultsAbnormTogus VA Medical Center Lymphocytes (Bld) [#/Vol]1 10*3/uLUniversity Hospitals Cleveland Medical CenterLymphocytes/100 WBC (Bld)5.8 %[facility] CenterMCH (RBC) [Entitic mass]26.4 pgLow27 - 34 pg [facility] CenterMCHC (RBC) [Mass/Vol]33.5 g/dL32 - 36 g/dLUniversity Hospitals Cleveland Medical CenterMCV (RBC) [Entitic vol]79 fLLow80 - 100 [facility] Monocytes (Bld) [#/Vol]1.2 10*3/uLHighUniversity Hospitals Cleveland Medical CenterMonocytes/100 WBC (Bld)6.6 %[facility] CenterNeutrophils (Bld) [#/Vol]15.2 10*3/uLHigh [facility] CenterNeutrophils/100 WBC (Bld)87.1 %[facility] Platelet mean volume (Bld) [Entitic vol]9.4 fL7 - 12 [facility] Platelets (Bld) [#/Vol]153 10*3/uLACMC Healthcare System SystemRBC (Bld) [#/Vol]6.51 10*6/uLInova Loudoun HospitalWBC corrected for nucl RBC Auto (Bld) [#/Vol] 17.5HighWashington Health SystemComprehensive metabolic panelon 97-90-1193Wejkjlh [Mass/Vol]3.8 g/dL3.2 - 5.3 g/dLUniversity Hospitals Cleveland Medical CenterALP [Catalytic activity/Vol]57 U/L39 - 130 U/[facility] SystemALT No additional P-5'-P [Catalytic activity/Vol]12 U/L0 - 40 U/[facility]itan HospitalAnion gap [Moles/Vol]9 mmol/L5 - 15 mmol/[facility] HospitalAST [Catalytic activity/Vol]20 U/L0 - 41 U/[facility] HospitalBilirubin [Mass/Vol]1.3 mg/dLHigh0.3 - 1.2 mg/dLUniversity Hospitals Cleveland Medical CenterCalcium [Mass/Vol] 8.4 mg/dLLow8.5 - 10.5 mg/dLUniversity Hospitals Cleveland Medical CenterChloride [Moles/Vol]102 mmol/L98 - 109 mmol/[facility] SystemCO2 [Moles/Vol]28 mmol/L22 - 32 mmol/[facility] HospitalCreatinine [Mass/Vol]0.98 mg/dL0.60 - 1.30 mg/dL [facility] CenterComment on above:METHOD TRACEABLE TO [facility] STANDARDeGFR (CKD-EPI)non-race - [facility] HospitalComment on above: Reported eGFR is based on the CKD-EPI 2020 equation that does not use a race coefficient. Glucose [Mass/Vol]179 mg/zVCksc43 - 99 mg/dLUniversity Hospitals [facility] Medical Center Interpretation and review of laboratory resultsAbnormTogus VA Medical Center Potassium [Moles/Vol]4.1 mmol/L3.5 - 5.0 mmol/[facility] SystemProtein [Mass/Vol]6.7 g/dL6.0 - 8.0 g/dLCentral Carolina Hospitalodium [Moles/Vol]139 mmol/L134 - 146 mmol/LProMedica [facility]health [facility] SystemUrea nitrogen [Mass/Vol]21 mg/dL5 - 27 mg/dLUniversity Hospitals Cleveland Medical CenterGlucose Glucometer (BldC) [Mass/Vol]on 58-16-1862Mnyrwxo [Mass/Vol]178 mg/kXUbwa49 - 99 mg/dLUniversity Hospitals [facility] Center Interpretation and review of laboratory resultsAbnormBucktail Medical CenterGlucose [Mass/Vol]167 mg/uODqrh97 - 99 mg/dLUniversity Hospitals Cleveland Medical CenterInterpretation and review of laboratory resultsAbnormTogus VA Medical CenterProSamaritan North Health Center SystemMagnesiumon 56-43-5265Syausseek [Mass/Vol] 2.2 mg/dL1.8 - 2.6 mg/dLUniversity Hospitals Cleveland Medical CenterNo Panel Informationon 07-25-2024 [facility] CenterXR Abdomen APon 27-78-3139WDUM: XR ABDOMEN AP 1 VW CLINICAL INFORMATION: [...] by Segundo Fontanez MD on 07/25/2024 3:27 [facility]OHASh[facility], Segundo Bedolla MD - 07/25/2024 EXAM: [...] Segundo Fontanez MD on 07/25/2024 3:27 PM [facility] CenterRadiology Study observation (narrative)[facility] CenterXR Abdomen APOrdered By: Segundo Fontanez on 53-10-2075DnnAzsobhSamaritan North Health Center Work Phone: basic Metabolic Panelon 23-96-5880Irjrs gap [Moles/Vol]9 mmol/L5 - 15 mmol/[facility] SystemCalcium [Mass/Vol]8.4 mg/dLLow8.5 - 10.5 mg/dLUniversity Hospitals Cleveland Medical CenterChloride [Moles/Vol]104 mmol/L98 - 109 mmol/[facility] SystemCO2 [Moles/Vol]22 mmol/L22 - 32 mmol/L [facility] CenterCreatinine [Mass/Vol]0.9 mg/dL0.60 - 1.30 mg/dLUniversity Hospitals Cleveland Medical CenterComment on above:METHOD TRACEABLE TO IDMO STANDARDeGFR (CKD-EPI)non-race dependent- PINSouthPointe HospitalComment on above: Reported eGFR is based on the CKD-EPI 2020 equation that does not use a race coefficient. Glucose [Mass/Vol]218 mg/xNLujf25 - 99 mg/dLUniversity Hospitals Cleveland Medical CenterPotassium [Moles/Vol]4.2 mmol/L3.5 - 5.0 mmol/[facility] MedCenter High Pointodium [Moles/Vol] 135 mmol/L134 - 146 mmol/[facility] SystemUrea nitrogen [Mass/Vol]24 mg/dL5 - 27 mg/dLUniversity Hospitals Cleveland Medical CenterCBC without diffon 55-48-0024Yfkdgduvcia distribution width (RBC) [Ratio]16.9 %High11.5 - 15.0 %[facility] Hematocrit (Bld) [Volume fraction]52.1 %High39 - 49 %[facility] Hemoglobin (Bld) [Mass/Vol]17.5 g/pYRana13.0 - 17.0 g/dLUniversity Hospitals [facility] Interpretation and review of laboratory resultsAbnormalUniversity Hospitals [facility] Center MCH (RBC) [Entitic mass]26.4 pgLow27 - 34 [facility] DublinMCHC (RBC) [Mass/Vol]33.6 g/dL32 - 36 g/dLUniversity Hospitals Cleveland Medical CenterMCV (RBC) [Entitic vol]79 fLLow80 - 100 [facility] HospitalPlatelet mean volume (Bld) [Entitic vol] 8.9 fL7 - 12 [facility] SystemPlatelets (Bld) [#/Vol]158 10*3/uL [facility] CenterRBC (Bld) [#/Vol]6.62 10*6/uLInova Loudoun Hospital WBC corrected for nucl RBC Auto (Bld) [#/Vol]16.3HAmery Hospital and ClinicECG 12 leadon 67-78-9085NJTWCTGVENWECLStrGjabnh Health SystemGlucose Glucometer (BldC) [Mass/Vol]on 02-67-4392Zjwvygi [Mass/Vol]151 mg/dLZgek75 - 99 mg/dLUniversity Hospitals Cleveland Medical CenterInterpretation and review of laboratory resultsAbnoWellSpan York HospitalGlucose [Mass/Vol]202 mg/pZTnrt20 - 99 mg/dLUniversity Hospitals Cleveland Medical CenterInterpretation and review of laboratory resultsAbnoWellSpan York HospitalLipaseon 18-40-5187Bfztzl [Catalytic activity/Vol]10 U/LLow11 - 82 U/L [facility] CenterLiver panelon 21-94-9435Atcjoet [Mass/Vol]3.8 g/dL3.2 - 5.3 g/dLUniversity Hospitals Cleveland Medical CenterALP [Catalytic activity/Vol]51 U/L39 - 130 U/L [facility] CenterALT No additional P-5'-P [Catalytic activity/Vol]14 U/L0 - 40 U/LPrPike Community HospitalAST [Catalytic activity/Vol]26 U/L0 - 41 U/L [facility] CenterBilirubin [Mass/Vol]1.2 mg/dL0.3 - 1.2 mg/dLUniversity Hospitals Cleveland Medical CenterBilirubin.direct [Mass/Vol]0.2 mg/dL0.0 - 0.4 mg/dLUniversity Hospitals Cleveland Medical CenterProtein [Mass/Vol]6.6 g/dL6.0 - 8.0 g/dLWashington Health SystemMagnesiumon 61-88-7830Fjchdomvp [Mass/Vol]2.3 mg/dL1.8 - 2.6 mg/dL [facility] CenterMagnesium [Mass/Vol]1.6 mg/dLLow1.8 - 2.6 mg/dLUniversity Hospitals Cleveland Medical CenterMagnesium [Mass/Vol]on 79-32-6787HzmHwpgeeSamaritan North Health CenterNo Panel Informationon 02-50-5719Tqeonkpwzejsbv and review of laboratory resultsAbnormal [facility] SystemPhosphoruson 26-45-6666Otgjsosxt [Mass/Vol]3 mg/dL2.4 - 4.9 mg/dLUniversity Hospitals Cleveland Medical CenterXR Abdomen APon 15-13-3362Vmstcls single view Clinical history:SBO abdominal pain bowel [...] by Mayito Gonzalez MD on 07/24/2024 2:21 PMSECTRAEvergreenHealth Medical CenterMayito olivier MD - 07/24/2024 Abdomen single view [...] Mayito Gonzalez MD on 07/24/2024 2:21 PM [facility] CenterRadiology Study observation (narrative)[facility] CenterXR Abdomen APOrdered By: Mayito Gonzalez on 82-55-8281NbgUrkhhnSamaritan North Health Center Work Phone: Ambulatory Visit Summaryon 27-45-2667Zthuvobeqs Visit SummaryAmbulatory Visit Summary JOHNATHAN CORREA :1960 [...] AM EDT With: Where: [facility] [address] [place] [address]- Wednesday 8:00 AM EST With: Where: [facility] [address] [facility] [place] [address]- Wednesday 8:00 AM EST With: Where: [facility] [address] [place] [address]- Wednesday 8:00 AM EST With: Where: [facility] [address] [place] [address]- Wednesday 10:00 AM EST With: Lety Gonzalez MD Where: [facility] [address] [facility] [place] [address]- Wednesday 9:45 AM EST With: Lety Gonzalez MD Where: [facility] [address] [facility] [place] [address]- Medications What How Much When Why Instructions [...] you for choosing us for your care. [facility] HospitalAmbulatory Visit Summaryon 65-85-2462Hkanhxpkfj Visit SummaryAmbulatory Visit Summary JOHNATHAN CORREA :1960 [...] AM EDT With: Where: [facility] [address] [place] [address]- Wednesday 8:00 AM EDT With: Where: [facility] [address] [facility] [place] [address]- Wednesday 8:00 AM EST With: Where: [facility] [address] [address]- Wednesday 10:00 AM EST With: Carlos LIZAMA, Lety Scott Where: [facility] [address] [place] [address]- Medications What How Much When Why Instructions [...] you for choosing us for your care. [facility] HospitalAmbulatory Visit Summaryon 07-71-7934Lxtxlzinls Visit SummaryAmbulatory Visit Summary SUNNY JOHNATHAN Valentino [...] EDT With: Where: [facility] [address] [address]- Wednesday 10:00 AM EST With: Lety Gonzalez MD Where: [facility] [address] [address]- Medications What How Much When Why Instructions [...] you for choosing us for your care. [facility] HospitalNo Panel Informationon 90-33-9981Bzwoogh Qtnhhvk611DpuvyayydFairfield Medical CenterAmbulatory Visit Summaryon 94-55-4466Ezunsdcwbj Visit SummaryAmbulatory Visit Summary JOHNATHAN CORREA :1960 [...] AM EDT With: Where: [facility] [address] [place] [address]- Wednesday 10:00 AM EST With: Carlos LIZAMA, Lety Scott Where: [facility] [address] [place] [address]- Medications What How Much When Why Instructions [...] you for choosing us for your care. [facility] HospitalAmbulatory Visit Summaryon 52-48-1249Vvlihetoot Visit SummaryAmbulatory Visit Summary JOHNATHAN CORREA Chelsy [...] AM EDT With: Where: [facility] HospitalInvalid Interpretation [address] [place] [address]- \.br\ Wednesday 10:00 AMEST \.br\ With: Carlos LIZAMA, Lety Scott\.br\ [facility] HospitalAmbulatory Visit SummaryAmbulatory Visit Summary JOHNATHAN CORREA [...] AM EDT With: Where: [facility] Interpretation [address] [place] [address]- \.br\ Wednesday 10:00 AMEST \.br\ With: Carlos LIZAMA, Lety Scott\.br\ Where: [facility] 85-70-0293EburbgngsXwzdwbepi From: Amelia Winslow To: PAO - Recalls Carlos; Sent: 09/15/2023 08:41:01 EST Show up: 02/14/2024 09:40:00 EDT Subject: PSA, Hct, and T level Reminder Message Please Remember to:_have pt get PSA, T level, and Hct done prior to appt. Internal lab orders in place. Pt seen 03/08/24 w/ new labs.[facility] HospitalUrology Office/Clinic Noteon 78-61-6859Xatiotm Office/Clinic NoteUrology Office/Clinic Note Chief Complaint 6m [...] Information Carlos LIZAMA, Lety Scott, URL, URO [address] [place] [phone] Additional Instructions: 6 mos w/ T level [...] tobacco concerns: No. Yes, (more content not included)...NormalMercy Health Urbana HospitalComment on above:Result Comment: Electronically Signed By: Lety Gonzalez MD\.br\Date and Time Signed: 03/08/24 09:15EDT\.br\Electronically Co-Signed By: Amelia Winslow\.br\Date and Time Co- Signed: 03/08/24 08:46 EDTTestost Totalon 60-76-7299Bpqcryaaphxp [Mass/Vol]547 ng/dLInvalid Interpretation Hkzg465-982ImrrdeMercy Health Urbana HospitalComment on above:Result Comment: Adult male reference interval is based on a population of healthy nonobese males (BMI <30) between 19 and 39 years old. Tayler et.al. JCEM 2017,102;0145-7170. PMID: 10397000. Performed at: [facility] [address] [id number] PhD Arianne Thorntonformed By: #### [id number] #### [facility] [address], [place] [address]FxqV6vmc 81-49-0530YzJ2y (Bld) [Mass fraction]8.5 %High<=5.9 [facility] Urbana HospitalComment on above:Performed By: #### [id number] #### [facility] [address], [place] [address]HMK With T4fr Reflexon 94-42-5227DYN Qn1.67 m[IU]/LNormal 0.34-5.60[facility] Urbana HospitalComment on above:Performed By: #### [id number] #### [facility] [address], [place] [address]FTXAojfncl By: SYSTEM SYSTEM on 01-97-3594Oxpgd gap [Moles/Vol] 11 mmol/L6-16Remisol ChemComment on above:Performed By: #### [id number] #### [facility] [address], [place] [address]Zfzahzp [Mass/Vol]9.3 mg/dL8.9-11.1Remisol ChemComment on above:Performed By: #### [id number] #### [facility] [address], [place] [address]Ejcykysl [Moles/Vol]95 mmol/GTnq136-397Efsudap ChemComment on above:Performed By: #### [id number] #### [facility] [address], [place] [address]WR0 [Moles/Vol]29 mmol/V43-37Yeurfdb ChemComment on above: Performed By: #### [id number] #### [facility] [address], [place] [address]Wyhylunohm [Mass/Vol]1.3 mg/dL0.5-1.3Remisol ChemComment on above:Performed By: #### [id number] #### [facility] [address], [place] [address]Sjeltvg [Mass/Vol]229 mg/dRCibm80-605Ttckxzf ChemComment on above:Performed By: #### [id number] #### [facility] [address] [place] [address]Sfokmkczs [Moles/Vol]5.3 mmol/L3.5-5.3Remisol ChemComment on above:Performed By: #### [id number] #### [facility] [address] [place] [address]Dxqqra [Moles/Vol]130 mmol/YOno587-106Ifxtalh ChemComment on above:Performed By: #### [id number] #### [facility] [address] [place] [address]Dxsv nitrogen [Mass/Vol]20 mg/dL5-21Remisol ChemComment on above:Performed By: #### [id number] #### [facility] [address] [place] [address]TKNtv 02-52-0660Xxlo nitrogen/Creatinine [Mass ratio]15 No VurvpDrxwov38-62Ooddrz [facility] CampusComment on above:Performed By: #### [id number] #### [facility] [address] [place] [address]TJI w/ Auto DiffOrdered By: SYSTEM SYSTEM on 03-01-2024 Basophils/100 WBC (Bld)0.7 %Normal0.0-2.0Remisol HemeComment on above:Performed By: #### [id number] #### [facility] [address] [place] [address]Phzvjkemq/Leukocytes Auto (Bld) [Pure # fraction]0.1 E9/LNormal 0.0-0.2Remisol HemeComment on above:Performed By: #### [id number] #### [facility] [address] [place] [address]Pmvwgxbgeeq (Bld) [#/Vol]0.3 E9/LNormal0.0-0.5Remisol Heme Comment on above:Performed By: #### [id number] #### [facility] [address] [place] [address]Bhuxnmomuom/100 WBC (Bld)3.7 %Normal0.0-8.0Remisol HemeComment on above:Performed By: #### [id number] #### [facility] [address] [place] [address]Umwtcyauhwh distribution width (RBC) [Ratio]16.7 %High10.9-14.2 Remisol HemeComment on above:Performed By: #### [id number] #### [facility] [address] [place] [address]Zotvbzwqui (Bld) [Volume fraction]48.4 %Uoagoo44.7-49.0Remisol HemeComment on above:Performed By: #### [id number] #### [facility] [address] [place] [address]Ziknbzqego (Bld) [Mass/Vol]16.1 g/rZAnzyke89.5-17.5Remisol Heme Comment on above:Performed By: #### [id number] #### [facility] [address] [place] [address]Zarveddqfqx (Bld) [#/Vol]1.3 E9/LNormal1.0-4.0Remisol Heme Comment on above:Performed By: #### [id number] #### [facility] [address] [place] [address]Kfrpyhdwofq/100 WBC (Bld)15.4 %Srffhn95.0-50.0Remisol Heme Comment on above:Performed By: #### [id number] #### [facility] [address] [place] [address]07[address]LYE (RBC) [Entitic mass]26.6 pgLow27.0-34.0Remisol HemeComment on above:Performed By: #### [id number] #### [facility] [address], [place] [address]TXRB (RBC) [Mass/Vol]33.3 g/gFOtllro04.4-36.0Remisol Heme Comment on above:Performed By: #### [id number] #### [facility] [address], [place] [address]NAO (RBC) [Entitic vol]79.9 fLLow80.0-100.0Remisol HemeComment on above:Performed By: #### [id number] #### [facility] [address], [place] [address]Qixseewke (Bld) [#/Vol]0.6 E9/LNormal0.2-1.0Remisol HemeComment on above:Performed By: #### [id number] #### [facility] [address] [place] [address]Qviacbqvqhz (Bld) [#/Vol]6.3 E9/LNormal2.0-7.5Remisol Heme Comment on above:Performed By: #### [id number] #### [facility] [address], [place] [address]Qremradxuwo/100 WBC (Bld)73.2 %Xrdaxm01.0-75.0Remisol Heme Comment on above:Performed By: #### [id number] #### [facility] [address], [place] [address]Bfyezrhu mean volume (Bld) [Entitic vol]10.0 fLNormal6.4-10.8 Remisol HemeComment on above:Performed By: #### [id number] #### [facility] [address], [place] [address]Kaencszfd (Bld) [#/Vol]201.0 E9/KVjypvk526.0-500.0Remisol Heme Comment on above:Performed By: #### [id number] #### [facility] [address], [place] [address]ZCJ (Bld) [#/Vol]6.1 E12/LHigh4.3-5.9Remisol HemeComment on above:Performed By: #### [id number] #### [facility] [address], [place] [address]DTP corrected for nucl RBC Auto (Bld) [#/Vol]8.6 E9/LNormal 4.0-11.0Remisol HemeComment on above:Performed By: #### [id number] #### [facility] [address], [place] [address]OPFHONGYWOrkksxq By: SYSTEM SYSTEM on 33-52-5388Gnat nitrogen/Creatinine [Mass ratio]15 mg/qaLabcdo24 - 20Remisol ChemEstimated glomerular filtration rate (GFR) non- Americanon 60-76-8190EFI/1.73 sq M.predicted among non-blacks MDRD (S/P/Bld) [Vol rate/Area]62 mL/min/1.73 m2>=59 [facility] CenterHEMATOLOGYOrdered By: SYSTEM SYSTEM on 87-95-4890Tmpstbuku/100 WBC (Bld)7.0 %Normal4.0 - 14.0 %Remisol HemeLaboratory - Chemistry and Chemistry - challengeon 86-80-1568AQK Qn1.67 m[IU]/L0.34-5.60 [facility] CenterLaboratory - Hematology and Cell countson 85-26-7266JzG5x (Bld) [Mass fraction]8.5 %High<=5.9[facility] CenterNo Panel Informationon 16-10-0254KBW/Creatinine Ratio15 No Aseis95-90 [facility] CenterPSA Screen, TotalOrdered By: SYSTEM SYSTEM on 81-79-9540Fbpgqutp specific Ag [Mass/Vol]0.8 ng/mLNormal0.1-3.5Remisol Chem Comment on above:Interpretive Data: The concentration of PSA determined by different manufacturers can vary due to differences in assay methods and reagent specificity. Values obtained from different assay methods cannot be used interchangeably. The methodology used for this result was chemiluminescence using e[employer]'s Access Hybritech PSA reagent.Result Comment: The concentration of PSA determined by different manufacturers can vary due to diffe rences in assay methods and reagent specificity. Values obtained from different assay methods cannot be used interchangeably. The methodology used for this result was chemiluminescence using e994's Access Hybritech PSA reagent.Performed By: #### [id number] #### [facility] [address], [place] [address]Pfcezjszp Orderon 96-43-6427Tehylipci Order [id number]#1.00TIFFNormalFisher [facility] CampuseGFROrdered By: SYSTEM SYSTEM on 97-24-6665vRPS67 mL/min/1.73 x4Ugweai>=59 Remisol ChemComment on above:Order Comment: Order added by Discern Expert. Performed By: #### [id number] #### [facility] [address], [place] [address]Jdcpgjvrui Visit Summaryon 81-55-5084Yluiivlaky Visit Summary JOHNATHAN CORREA :1960 Visit Date:02/09/2024 [...] AM EDT With: Where: [facility] [place] [address] [place] [address] \.br\ Medications\.br\ What How Much When Why [...] you for choosing us for your care.\.br\ \.br\[facility] HospitalAmbulatory Visit Summaryon 21-07-3130Fudwbugtez Visit Summary JOHNATHAN CORREA :1960 Visit Date:01/25/2024 [...] AM EDT With: Where: [facility] [place] [id number] \.br\ Medications\.br\ What How Much When Why [...] Hypogonadism male ED (erectile dysfunction) Pickup at [facility]/pharmacy #[id number]\.br\ Pharmacy Information\.br\ [facility]/pharmacy #[id number]: [address] [place], [place] [phone]\.br\ Medications and Immunizations Administered\.br\ Given\.br\ Depo- Testosterone [...] you for choosing us for your care.\.br\ \.br\[facility]ulatory Visit Summaryon 53-17-5976Xvnwvuvtsv Visit Summary JOHNATHAN CORREA :1960 Visit Date:01/11/2024 [...] AM EDT With: Where: [facility] [address] [place] [id number] \.br\ Medications\.br\ What How Much When Why [...] you for choosing us for your care.\.br\ \.br\[facility] HospitalAmbulatory Visit Summaryon 25-53-4124Qhgxojwgni Visit Summary JOHNATHAN CORREA :1960 Visit Date:12/28/2023 [...] AM EDT With: Where: [facility] [place] [address] [place] [address]- \.br\ Medications\.br\ What How Much When Why [...] you for choosing us for your care.\.br\ \.br\[facility] HospitalAmbulatory Visit Summaryon 16-25-5717Ctyxjcqfbp Visit Summary SUNNYJOHNATHAN :1960 Visit Date:12/14/2023 Ambulatory [...] AM EDT With: Where: [facility] [address] [place] [address]- \.br\ Medications\.br\ What How Much When Why [...] \.br\[facility] Jorge Medical CenterBasophils Auto (Bld) [#/Vol]on 46-86-5888Kroljhhgn (Bld) [#/Vol]0.1 10 3/uL0.0-0.1 [facility] CenterBasophils/100 WBC Auto (Bld)on 12-01-2023 Basophils/100 WBC (Bld)0.8 %0.2-2.0[facility] CenterCholesterol in LDL Calc [Mass/Vol]on 74-72-7087Ouahdgxkqko in LDL [Mass/Vol]69.0 mg/dL [facility] CenterComment on above:<100 mg/dl SDAFPRK142-717 mg/dl NEAR OR ABOVE UNNWFMS502-508 mg/dl BORDERLINE QHTK222-429 mg/dl HIGH>190 mg/dl VERY HIGHCholesterol in VLDL Calc [Mass/Vol]on 44-07-2478Gobqtquaugq in VLDL [Mass/Vol]15.2 mg/dLFairfield Medical CenterEosinophils/100 WBC Auto (Bld)on 33-67-9432Wmerrxgontt/100 WBC (Bld)5.6 %0.9-7.0[facility] CenterErythrocyte distribution width Auto (RBC) [Ratio]on 12-01-2023 Erythrocyte distribution width (RBC) [Ratio]15.8 %11.0-15.0[facility] CenterEstimated glomerular filtration rate (GFR) non- Americanon 17-29-4447QWQ/1.73 sq M.predicted among non-blacks MDRD (S/P/Bld) [Vol rate/Area]mL/min/{1.73_m2}>=60[facility] CenterGlobulin Calc (S) [Mass/Vol]on 91-05-5024Ahumytmp (S) [Mass/Vol]3.5 g/dLFairfield Medical CenterGlucose mean value [Mass/volume] in Blood Estimated from glycated hemoglobinon 65-25-3010Pckvlbz glucose Estimated from glycated hemoglobin (Bld) [Mass/Vol]209 mg/dLFairfield Medical CenterHematocrit Auto (Bld) [Volume fraction]on 64-18-5411Qlzjegvslw (Bld) [Volume fraction]47.7 %42.0-54.0 [facility] CenterHemoglobin [Mass/volume] in Bloodon 12-01-2023 Hemoglobin (Bld) [Mass/Vol]15.7 g/dL14.0-18.0[facility] - Chemistry and Chemistry - challengeon 87-20-7032Uufiqth [Mass/Vol] 3.7 g/dL3.4-5.0[facility] CenterALP [Catalytic activity/Vol]67 U/Q44-959VcveimjwpFairfield Medical CenterALT [Catalytic activity/Vol]24 U/L 16-63[facility] CenterAST [Catalytic activity/Vol]28 U/L15-37 [facility] CenterBilirubin [Mass/Vol]0.9 mg/dL0.2-1.0[facility] CenterCalcium [Mass/Vol]8.7 mg/dL8.5-10.1FSuburban Community Hospital & Brentwood HospitalChloride [Moles/Vol]101 mmol/M30-175CshcnnczzFairfield Medical CenterCholesterol [Mass/Vol]120 mg/dL<=200[facility] Cholesterol in HDL [Mass/Vol]36 mg/xA18-33FgchctbjzFairfield Medical Center Comment on above:> or =60 mg/dl - LOW CARDIOVASCULAR RISK<40 mg/dl - HIGH CARDIOVASCULAR RISKCO2 [Moles/Vol]28.9 mmol/L21.0-32.0[facility] CenterCreatinine [Mass/Vol]1.19 mg/dL0.70-1.30[facility] GFR/1.73 sq M.predicted MDRD (S/P/Bld) [Vol rate/Area]mL/min/{1.73_m2}>=60 [facility] CenterGlucose [Mass/Vol]152 mg/gT35-542LuyppovonFairfield Medical CenterPotassium [Moles/Vol]4.5 mmol/L3.5-5.1FSuburban Community Hospital & Brentwood HospitalProtein [Mass/Vol]7.2 g/dL6.4-8.2FSuburban Community Hospital & Brentwood Hospital Sodium [Moles/Vol]138 mmol/Q837-545GxetakuixFairfield Medical CenterTriglyceride [Mass/Vol]76 mg/dL<=150[facility] CenterUrea nitrogen [Mass/Vol]23.0 mg/dL7.0-18.0[facility] CenterUrea nitrogen/Creatinine [Mass ratio]19.3 mg/mgFairfield Medical Center Laboratory - Hematology and Cell countson 63-09-4563MbM3n (Bld) [Mass fraction] 8.9 %4.5-6.2FSuburban Community Hospital & Brentwood HospitalComment on above:ADA RECOMMENDED LIMIT 4.0 - 6.0ADA THERAPEUTIC TARGET < 7.0ACTION SUGGESTED> 7.0Immature granulocytes/100 WBC (Bld)0.2 %0.0-0.5FSuburban Community Hospital & Brentwood Hospital Leukocytes [#/volume] corrected for nucleated erythrocytes in Blood by Automated counon 39-19-3455DVH corrected for nucl RBC Auto (Bld) [#/Vol]8.5 10 3/uL 4.0-11.0[facility] CenterLymphocytes Auto (Bld) [#/Vol]on 36-78-8517Mlycqmzgfpt (Bld) [#/Vol]1.6 10 3/uL1.2-3.8[facility] CenterLymphocytes/100 WBC Auto (Bld)on 44-27-1605Jjbcaqvrlsp/100 WBC (Bld)19.2 % 20.5-60.0[facility] Auto (RBC) [Entitic mass]on 71-62-7430QVE (RBC) [Entitic mass]26.2 pg25.9-34.0[facility] CenterMCHC Auto (RBC) [Mass/Vol]on 56-59-8100TTPM (RBC) [Mass/Vol]32.9 g/dL 29.9-35.2FSuburban Community Hospital & Brentwood HospitalMCV Auto (RBC) [Entitic vol]on 25-54-8430DSI (RBC) [Entitic vol]79.6 fL80.0-94.0[facility] CenterMonocytes Auto (Bld) [#/Vol]on 82-06-7533Zfkdjjzwh (Bld) [#/Vol]0.7 10 3/uL0.3-0.8[facility] CenterMonocytes/100 WBC Auto (Bld)on 50-90-7325Dquxvunis/100 WBC (Bld)7.6 %1.7-12.0[facility] Neutrophils Auto (Bld) [#/Vol]on 39-67-1533Rndbzljwoof (Bld) [#/Vol]5.7 10 3/uL 1.4-6.5FSuburban Community Hospital & Brentwood HospitalNeutrophils/100 WBC Auto (Bld)on 13-13-2309Qjhkglsacnv/100 WBC (Bld)66.6 %43.0-75.0[facility] CenterNo Panel Informationon 68-62-0654Qldlilpxsrt # (Auto)0.5 10 3/uL0.0-0.7 [facility] CenterImmature Granulocyte # (Auto)0.02 10 3/uL 0.00-0.03[facility] CenterProstate Specific Antigen Screen1.21 ng/mL<=4.00[facility] CenterPlatelet mean volume Auto (Bld) [Entitic vol]on 98-75-0376Fhkzmdby mean volume (Bld) [Entitic vol]11.1 fL 9.5-13.5FSuburban Community Hospital & Brentwood HospitalPlatelets Auto (Bld) [#/Vol]on 37-79-7061Wwqvydqrw (Bld) [#/Vol]216 10 3/zU014-126UotunwaqzFairfield Medical CenterRBC Auto (Bld) [#/Vol]on 03-83-0964OPN (Bld) [#/Vol]5.99 10 6/uL4.70-6.10 [facility] Hospitalerum or plasma albumin/globulin mass ratioon 32-90-3542Zsbchqj/Globulin [Mass ratio]1.1 {ratio}[facility] Hospitalerum or plasma anion gap determinationon 43-03-5369Swntp gap [Moles/Vol] 12.6 mmol/LFUniversity Hospitals Geauga Medical Centererum or plasma total cholesterol/high density lipoprotein (HDL) cholesterol mass aydin 12-01-2023 Cholesterol.total/Cholesterol in HDL [Mass ratio]3.3 {ratio}[facility] CenterComment on above:3.3 - 4.4 LOW RISK4.4 - 7.1 AVERAGE RISK7.1 - 11.0 MODERATE RISK>11.0 HIGH RISKAmbulatory Visit Summaryon 96-84-3927Mwncdzinkk Visit Summary JOHNATHAN CORREA :1960 Visit Date:11/30/2023 [...] AM EDT With: Where: [facility] [place] [id number] \.br\ Medications\.br\ What How Much When Why [...] you for choosing us for your care.\.br\ \.br\[facility] HospitalAmb[facility] Visit Summaryon 81-93-0974Wpdpyrpnfu Visit Summary JOHNATHAN CORREA :1960 Visit Date:11/16/2023 [...] AM EDT With: Where: [facility] [address] [place] [id number]- \.br\ Medications\.br\ What How Much When Why [...] you for choosing us for your care.\.br\ \.br\[facility] HospitalAmbulatory Visit Summaryon 25-22-6589Bosnjxpita Visit Summary SUNNYJOHNATHAN :1960 Visit Date:10/20/2023 Ambulatory [...] AM EST With: Where: [facility] [address] [place] [address]- \.br\ Medications\.br\ What How Much When Why [...] you for choosing us for your care.\.br\ \.br\[facility] HospitalAmbulatory Visit Summaryon 30-89-3139Pslbjuhrjn Visit Summary SUNNY JOHNATHAN Valentino :1960 Visit [...] Lety Gonzalez MD [facility] Summaryon 85-71-4950Omqeyfhooz Visit Summary JOHNATHAN CORREA :1960 Visit Date:09/15/2023 Ambulatory Visit Instructions Your Diagnosis Hypogonadism male ED (erectile dysfunction) BPH without urinary obstruction Tests Performed Urnls Dip Stick Auto w/o Microscopy POC 28918 Your Care Team Attending Physician - Lety [...] AM EST With: Where: [facility] [address] [place] [address] [place] [address]- \.br\ You Need to Schedule the Following Appointments\.br\ Follow Up with Carlos LIZAMA, Lety Scott, URL, URO When: \.br\ Comments:\.br\ 3 mos w/ PSA, T level, and HCT\.br\ Where:\.br\ [address]br\ [place] [address].br\ [phone]\.br\ You Need to Complete the Following\.br\ Hematocrit, [...] exceed 20mg within 24 hours. Pickup at [facility]\.br\ Unchanged amlodipine (amLODIPine 5 mg Tab) [...] if questions or concerns \.br\ Pharmacy Information\.br\ [facility]: [address] [place], [place] [phone]\.br\ Test Results\.br\ Urnls Dip Stick Auto w/o Microscopy POC 79128 (09/15/2023)\.br\ Bilirubin Urine Dipstick - Negative\.br\ Blood Urine Dipstick - Trace-intact\.br\ Glucose Urine Dipstick - 3+ 1000 mg/dl\.br\ Ketones Urine Dipstick - Negative\.br\ Leukocytes Urine Dipstick - Negative\.br\ Nitrite Urine Dipstick - Negative\.br\ Protein Urine Dipstick - Negative\.br\ Specific [place] Urine Dipstick - 1.015\.br\ Urine Pino earance [...] \.br\ Doing a sleep study at home [facility] Educationon 51-71-9433Uncjrwu EducationUrology Erectile Dysfunction Erectile dysfunction (ED) is [...] these instructions at home: Medicines ? Take sqiz-vgh-cdknomy and prescription medicines only as told by [...] These products include cig (more content not included)...[facility] Urology Office/Clinic Noteon 20-19-0276Iawlvhq Office/Clinic NoteChief Complaint 3 month follow up [...] Cialis. Rx sent again to [facility] in [place]. Risks/benefits discussed. -Diet and exercise 3. BPH [...] Information Carlos LIZAMA, Lety Scott, URL, URO [address], [place] [phone] Additional Instructions: 3 mos w/ PSA, T [...] 15 mg oral ta (more content not included)...NormalFishGreater Baltimore Medical CenterComment on above:Result Comment: Electronically Signed By: Carlos LIZAMA, Lety Scott\.br\Date and Time Signed: 09/15/23 08:41EST\.br\Electronically Co-Signed By: Amelia Winslow\.br\Date and Time Co-Signed: 09/15/23 08:37 ESTTestost Totalon 65-18-7560Kcbcuezitbhi [Mass/Vol]478 ng/dLInvalid Interpretation Xtot227-174 [facility] HospitalComment on above:Result Comment: Adult male reference interval is based on a population of healthy nonobese males (BMI <30) between 19 and 39 years old. Tayler et.al. JCEM 2017,102;7872-4452. PMID: 88409211. Performed at: [facility] [address] [id number] PhD Arianne FonsecaPerformed By: #### [id number] ####[facility] [address] [place], [place] [address]Tfbevbpzrg Visit Summaryon 21-70-0680Dbqrzsxviy Visit Summary JOHNATHAN CORREA :1960 Visit Date:09/08/2023 [...] Lety Gonzalez MD [facility] Visit Summaryon 14-05-6141Wodzsvzfgv Visit Summary JOHNATHAN CORREA :1960 Visit Date:09/01/2023 [...] With: Lety Gonzalez MD [facility] Summaryon 00-56-6295Mcqenxuafu Visit Summary JOHNATHAN CORREA :1960 Visit Date:08/04/2023 [...] AM EST With: Where: [facility] [address] [place] [id number]- \.br\ Medications\.br\ What How Much When Why [...] needed for for erectile dysfunction Do not lpbaqj52ro within 24 hours. \.br\ Unchanged testosterone (Depo-Testosterone [...] you for choosing us for your care.\.br\ \.br\[facility] HospitalAmbulatory Visit Summaryon 36-86-4528Uhnsucuotm Visit Summary JOHNATHAN CORREA :1960 Visit Date:07/21/2023 [...] AM EST With: [facility] Interpretation [id number] [place] [address] [place] [address]- \.br\ Wednesday 8:00 AM EST \.br\ With: Carlos LIZAMA, Lety Scott\.br\ [facility] Summaryon 06-70-7683Rywbhwuagq Visit Summary JOHNATHAN CORREA :1960 Visit Date:07/07/2023 [...] AM EST With: Where: [facility]Invalid Interpretation [id number] [place] [address] [place] [address] \.br\ Wednesday 8:00 AM EST \.br\ With:\.br\ Where: [facility] Ambulatory Visit Summaryon 84-12-6029Kqbpirfpgg Visit Summary JOHNATHAN CORREA :1960 Visit Date:06/23/2023 [...] AM EDT With: [facility]val[facility] Interpretation [address] [place] [address]- \.br\ Wednesday 8:00 AM EST \.br\ With:\.br\ Where: [facility] Ambulatory Visit Summaryon 19-84-6991Urztiakmok Visit Summary JOHNATHAN CORREA :1960 Visit Date:06/09/2023 Ambulatory Visit Instructions Your Diagnosis Hypogonadism male BPH without urinary obstruction ED (erectile dysfunction) Tests Performed Urnls Dip Stick Auto w/o Microscopy POC 82303 Your Care Team Attending Physician - Lety [...] AM EDT With: Where: [facility] [address] \.br\ You Need to Schedule the [...] exceed 20mg within 24 hours. Pickup at [facility]/pharmacy #6512\.br\ Changed testosterone (Depo-Testosterone 200 mg/ mL intramuscular solution) 200 Milligram Intramuscular Every other week Hypogonadism male ED (erectile dysfunction) Pickup at [facility]/pharmacy #6447\.br\ Unchanged amlodipine (amLODIPine 5 mg Tab) By [...] physician if questions or concerns\.br\ Pharmacy Information\.br\ [facility]pharmacy #6177: [address] [place], [place] [phone]\.br\ \.br\ What How Much When Comments\.br\ Stop Taking sildenafil (Viagra 100 mg Tab) 1 Tablets By Mouth As Directed as needed for for erectile dysfunction 1 hour before sexual activity. Startwith 1/ 2 tablet. Not to exceed 1 tab (100 mg) in 24 hours \.br\ Test Results\.br\ Urnls Dip Stick Auto w/o Microscopy POC 64867 (06/09/2023)\.br\ Bilirubin Urine Dipstick - Negative\.br\ Blood Urine Dipstick - Negative\.br\ Glucose Urine Dipstick - 3+ 1000 mg/dl\.br\ Ketones Urine Dipstick - Negative\.br\ Leukocytes Urine Dipstick - Negative\.br\ Nitrite Urine Dipstick - Negative\.br\ Protein Urine Dipstick - Negative\.br\ Specific [place] Urine Dipstick - 1.010\.br\ Urine Appearance Urine [...] and your symptoms before putting youon testosterone replaFishGreater Baltimore Medical CenterPatient Educationon 65-32-3487Eerfrwb EducationUrology Hypogonadism, Male Male hypogonadism is a [...] Follow these instructions at home: ? Take rsxq-tui-ymsnvct and prescription medicines only as told by [...] Document Revised: 04/24/2021 Document (more content not included)...[facility] Hospitalcreenson 24-65-9767Viirjlk [id number]#1.00CD:127rmSelect Medical Cleveland Clinic Rehabilitation Hospital, Edwin [id number]#1.00CD:127[facility] HospitalUrology Office/Clinic Noteon 67-43-4435Mfkejqi Office/Clinic NoteChief Complaint 4m w/labs HPI Staff [...] 5 mg Tab, O (more content not included)...[facility] HospitalComment on above:Result Comment: Electronically Signed By: Lue MD, Lety M.\.br\Date and Time Signed: 06/09/23 14:47EDT\.br\Electronically Co-Signed By: Judith Bell\.br\Date and Time Co-Signed: 06/09/23 08:22 EDTLab Reportson 24-20-8966Hgy [id number]#1.00CD:127[facility] HospitalLab Reports [id number]#1.00CD:127[facility] HospitalAmbulatory Visit Summaryon 63-16-3651Amajmutyhd Visit Summary JOHNATHAN CORREA :1960 Visit Date:06/02/2023 [...] LIZAMA, Lety Scott [facility]: [facility] Reportson 63-11-1856Zya Reports [id number]#1.00CD:127[facility] HospitalAmbulatory Visit Summaryon 23-14-5163Ldbuxbaekm Visit Summary JOHNATHAN CORREA :1960 Visit Date:05/12/2023 [...] AM EDT With: Where: [facility] Interpretation [address] [place] [address] [place] [address]- [phone]\.br\ Wednesday 8:45 AM EDT \.br\ With: Carlos LIZAMA, Lety Scott\.br\ Where: [facility] HospitalAmbulatory Visit Summaryon 77-99-2134Xxkbrhmnzk Visit Summary JOHNATHAN CORREA :1960 Visit Date:04/28/2023 [...] AM EDT With: Where: [facility] Interpretation [address] [facility] [place] [address]- \.br\ Wednesday 8:45 AM EDT \.br\ With: Carlos LIZAMA, Lety Scott\.br\ [facility] HospitalAmb[facility] Visit Summaryon 49-84-9255Qsnkphfomj Visit Summary JOHNATHAN CORREA :1960 Visit Date:04/14/2023 [...] 8:30 AM EDT With: Where: [facility] Interpretation [address] [place] [address]- [phone]\.br\ Wednesday 8:00 AM EDT \.br\ With:\.br\ Where: [facility] Ambulatory Visit Summaryon 05-24-1551Kiasxzpphb Visit Summary JOHNATHAN CORREA :1960 Visit Date:03/17/2023 [...] AM EDT With: Where: [facility]Normal[address] [place] [address]- \.br\ You Need to Schedule the Following Appointments\.br\ Follow Up with Carlos LIZAMA, Lety Scott, URL, URO When: In 2 weeks\.br\ Comments:\.br\ Will return in 2wks for next injection.\.br\ Will see Dr Gonzalez end may with PSA T & HCT & HGB.\.br\ Where:\.br\ [address] [facility] [address]br\ [place] [address]\.br\ Medications\.br\ What How Much When Instructions\.br\ Unchanged [...] pain\.br\ Hypogonadism male\.br\ Low testosterone\.br\ Nocturia\.br\ \.br\[facility] CampusNurse Consultation Noteon 75-61-2392Uzsrf Consultation NoteReason for Visit Testosterone Injection Assessment/Plan [...] tablet, Oral, Daily Allergies metFORMIN (Stomach cramps, Diarrhea)[facility]'s HospitalCHEMISTRY Ordered By: SYSTEM SYSTEM on 49-62-8927Dcwkuamr specific Ag [Mass/Vol]3.6 ng/mL High0.1 - 3.5 ng/mLMERCY [facility] [place] RemisolHEMATOLOGYOrdered By: Emily Churchill on 02-24-2023 Hematocrit (Bld) [Volume fraction]46.7 %Qhzxyt52.7 - 49.0 %[facility] HemeAutoSS Hemoglobin (Bld) [Mass/Vol]15.6 g/dCNqucdb95.5 - 17.5 gm/dLMERCY HOSPITAL [facility] [place] HemeAutoSSFalls Screening (Age 18+)on 85-74-3141Scvv risk assessmentc) Not medically indicated -[facility] DO Work Phone: Tobacco use status CPHSb) NoMP-[facility] DO Work Phone: Falls Screening (Age 18+)YesMP-[facility] [address] DO Work Phone: CBC AUTO DIFFon 81-99-5198KSVQ #0.1 103/ulNormal 0.0-0.1The [facility] HospitalComment on above:Performed By: #### CVDTBH #### [facility] [address] [place] [address] Dr. Talia Ugaldephils/100 WBC (Bld)0.6 %Normal0.2-2.0The [facility] Comment on above:Performed By: #### CVDTBH #### [facility] [address] [place] [address] Dr. Talia Oliver #0.5 103/ulNormal0.0-0.7The [facility] HospitalComment on above: Performed By: #### CVDTBH #### [facility] [address] [place] [address] Dr. Talia Schwabosinophils/100 WBC (Bld)5.4 %Normal0.9-7.0The [facility] Comment on above:Performed By: #### CVDTBH #### [facility] [address] [place] [address] Dr. Talia Schwabrythrocyte distribution width (RBC) [Ratio]15.6 %Critically high 11.0-15.0The [facility] HospitalComment on above:Performed By: #### CVDTBH #### [facility] [address] [place] [address] Dr. Talia PlascenciaHematocrit (Bld) [Volume fraction]45.6 %Tegtdh59.0-54.0The [facility] HospitalComment on above:Performed By: #### AXELTBH #### [facility] [address] [place] [address] Dr. Talia PlascenciaHemoglobin (Bld) [Mass/Vol]15.8 g/vSJqcnun29.0-18.0The [facility] HospitalComment on above:Performed By: #### CVDTBH #### [facility] [address] [place] [address] Dr. Talia Capone #0.02 10e3/ulNormal0.00-0.03The [facility] HospitalComment on above:Performed By: #### CVDTBH #### [facility] [address] [place] [address] Dr. Talia Capone %0.2 %Normal0.0-0.5The [facility] HospitalComment on above: Performed By: #### CVDTB #### [facility] [address] [place] [address] Dr. Talia Carbajal #1.8 103/ulNormal1.2-3.8The [facility] HospitalComment on above:Performed By: #### CVDTBH #### [facility] [address] [place] [address] Dr. Talia Manleymphocytes/100 WBC (Bld)22.0 %Xtaqoe51.5-60.0The [facility] HospitalComment on above:Performed By: #### CVDTBH #### [facility] [address] [place] [address] Dr. Talia Pascal DIFF REQNONormalThe [facility] HospitalComment on above: Performed By: #### CVDTBH #### [facility] [address] [place] [address] Dr. Talia Sanders (RBC) [Entitic mass]27.4 xhUfvvpb50.9-34.0The [facility] HospitalComment on above:Performed By: #### CVDTBH #### [facility] [address] [place] [address] Dr. Talia German (RBC) [Mass/Vol]34.6 g/jLBhwwhb45.9-35.2The [facility] HospitalCommymichigan medical center west branch on above:Performed By: #### CVDTBH #### [facility] [address] [place] [address] Dr. Talia German (RBC) [Entitic vol]79.2 fLCritically low80.0-94.0The [facility] HospitalComment on above:Performed By: #### CVDTBH #### [facility] [address] [place] [address] Dr. Talia Echols #0.7 103/ulNormal0.3-0.8The [facility] HospitalCommymichigan medical center west branch on above:Performed By: #### CVDTBH #### [facility] [address] [place] [address] Dr. Talia Moranocytes/100 WBC (Bld)7.9 %Normal1.7-12.0The [facility] Comment on above:Performed By: #### CVDTBH #### [facility] [address] [place] [address] Dr. Talia Malagon #5.3 103/ulNormal1.4-6.5The [facility] HospitalComment on above:Performed By: #### CVDTBH #### [facility] [address] [place] [address] Dr. Talia Maddenutrophils/100 WBC (Bld)63.9 %Mdslyu84.0-75.0The [facility] HospitalComment on above:Performed By: #### CVDTBH #### [facility] [address] [place] [address] Dr. Talia Nobles mean volume (Bld) [Entitic vol]10.8 fLNormal9.5-13.5The [facility] HospitalComment on above:Performed By: #### CVDTBH #### [facility] [address] [place] [address] Dr. Talia PlascenciaPLT218 103/vdMvyvbe844-116Lbz [facility] HospitalComment on above: Performed By: #### CVDTBH #### [facility] [address] [place] [address] Dr. Talia PlascenciaRBC5.76 106/ulNormal4.70-6.10The [facility] HospitalComment on above:Performed By: #### CVDTBH #### [facility] [address] [place] [address] Dr. Talia PlascenciaWBC8.3 103/ulNormal4.0-11.0The [facility] HospitalComment on above: Performed By: #### CVDTBH #### [facility] [address] [place] [address] Dr. Talia PlascenciaGLYCOHEMOGLOBIN A1Con 24-62-5853BUC RECOMMENDATIONSEE BELOWNormal [facility] CenterComment on above:Result Comment: ADA RECOMMENDED LIMIT 4.0 - 6.0 ADA THERAPEUTIC TARGET < 7.0 ACTION SUGGESTED > 7.0Performed By: #### INFLUAB #### [facility] [address] [address] [address] Talia PlascenciaGlucose [Mass/Vol]203 mg/dLNoSelect Medical Cleveland Clinic Rehabilitation Hospital, AvonComment on above:Performed By: #### INFLUAB #### [facility] [address] [place] [address] Dr. Talia PlascenciaHbA1c (Bld) [Mass fraction]8.7 %Critically high4.5-6.2The [facility] HospitalComment on above:Performed By: #### INFLUAB #### [facility] [address] [place] [address] Dr. Talia PlascenciaLIPID PROFILEon 37-64-2038FRUR-HDL RATIO NORMSEE Memorial HospitalComment on above:Result Comment: 3.3 - 4.4 LOW RISK 4.4 - 7.1 AVERAGE RISK 7.1 - 11.0 MODERATE RISK >11.0 HIGH RISKPerformed By: #### POCGLUC #### [facility] [address] [place] [address] Dr. Talia Juarezesterol [Mass/Vol]120 mg/dLNormal<=200The [facility] Comment on above:Performed By: #### POCGLUC #### [facility] [address] [place] [address] Dr. Talia Juarezesterol in HDL [Mass/Vol]28 mg/dLCritically bul28-52Pff [facility] HospitalComment on above:Performed By: #### POCGLUC #### [facility] [address] [place] [address] Dr. Talia Juarezesterol in LDL [Mass/Vol]67.6 mg/dLRegency Hospital ToledoComment on above:Performed By: #### POCGLUC #### [facility] [address] [place] [address] Dr. Talia Juarezesterej.total/Cholesterol in HDL [Mass ratio]4.3 {ratio} NormalThe [facility] HospitalComment on above:Performed By: #### POCGLUC #### [facility] [address] [place] [address] Dr. Talia GarciaL NORMAL> or = 60 mg/dl - LOW CARDIOVASCULAR RISK <40 mg/dl - HIGH CARDIOVASCULAR RISKRegency Hospital ToledoComment on above:Performed By: #### POCGLUC #### [facility] [address] [place] [address] Dr. Talia PlascenciaLDL CALC NORMALSEE BELOWNoSelect Medical Cleveland Clinic Rehabilitation Hospital, AvonComment on above:Result Comment: <100 mg/dl OPTIMAL 100 - 129 mg/dl NEAR OR ABOVE OPTIMAL 130 - 159 mg/dl BORDERLINE HIGH 160 - 189 mg/dl HIGH >190 mg/dl VERY HIGH Performed By: #### POCGLUC #### [facility] [address] [place] [address] Dr. Talia PlascenciaTriglyceride [Mass/Vol]122 mg/dLNormal<=150The [facility] Comment on above:Performed By: #### POCGLUC #### [facility] [address] [place] [address] Dr. Talia BhatiaLDL CALC24.4 mg/dLNoSelect Medical Cleveland Clinic Rehabilitation Hospital, AvonComment on above: Performed By: #### POCGLUC #### [facility] [address] [place] [address] Dr. Talia PlascenciaPROF 14(COMP METB)on 23-73-5846Xivegen [Mass/Vol]3.8 g/dLNormal 3.4-5.0Fire[facility] Medical CenterComment on above:Performed By: #### POCGLUC #### [facility] [address] [place] [address] Dr. Talia PlascenciaAlbumin/Globulin [Mass ratio]1.0 {ratio}NormalThe [facility] HospitalComment on above:Performed By: #### POCGLUC #### [facility] [address] [place] [address] Dr. Talia Myers [Catalytic activity/Vol]73 U/LRrgcrr30-490Wjs [facility] HospitalCommymichigan medical center west branch on above:Performed By: #### POCGLUC #### [facility] [address] [place] [address] Dr. Talia Cody [Catalytic activity/Vol]22 U/TEwhtpc65-38Zbm [place] HospitalComment on above:Performed By: #### POCGLUC #### [facility] [address] [address] [address] Talia Pérez gap [Moles/Vol]10.7 mmol/LNormalThe [facility] Comment on above:Performed By: #### POCGLUC #### [facility] [address] [address] [address] Talia PlascenciaAST [Catalytic activity/Vol]31 U/ZYcedsl09-79Oit [facility] HospitalComment on above:Performed By: #### POCGLUC #### [facility] [address] [address] [address] Talia PlascenciaBilirubin [Mass/Vol]0.6 mg/dLNormal0.2-1.0The [facility] Comment on above:Performed By: #### POCGLUC #### [facility] [address] [address] [address] Talia PlascenciaCalcium [Mass/Vol]9.5 mg/dLNormal8.5-10.1[facility] Comment on above:Performed By: #### POCGLUC #### [facility] [address] [address] [address] Talia PlascenciaChloride [Moles/Vol]102 mmol/SLsmklw95-029Lnj [facility] Comment on above:Performed By: #### POCGLUC #### [facility] [address] [address] [address] Talia PlascenciaCO2 [Moles/Vol]28.9 mmol/HQjgqnd86.0-32.0The [facility] Comment on above:Performed By: #### POCGLUC #### [facility] [address] [address] [address] Talia PlascenciaCreatinine [Mass/Vol]1.27 mg/dLNormal0.70-1.30The [facility] HospitalComment on above:Performed By: #### POCGLUC #### [facility] [address] [address] [address] Melgar ChangEGFR-AF MALAGASY>60Normal>=60The [facility] HospitalComment on above:Performed By: #### POCGLUC #### [facility] [address] [address] [address] Talia SchwabGFR-NON AF JTAQCTXD04 mL/min/1.28h9Dxcgzrxgik low>=60The [facility] HospitalComment on above:Performed By: #### POCGLUC #### [facility] [address] [address] [address] Talia PlascenciaGlobulin (S) [Mass/Vol]3.9 g/dLNormSalem Regional Medical CenterComment on above:Performed By: #### POCGLUC #### [facility] [address] [address] [address] Talia PlascenciaGlucose [Mass/Vol]209 mg/dLCritically spes57-350Ofj [facility] HospitalComment on above:Performed By: #### POCGLUC #### [facility] [address] [address] [address] Talia PlascenciaPotassium [Moles/Vol]4.6 mmol/LNormal3.5-5.1The [facility] Comment on above:Performed By: #### POCGLUC #### [facility] [address] [address] [address] Talia PlascenciaProtein [Mass/Vol]7.7 g/dLNormal6.4-8.2[facility] Comment on above:Performed By: #### POCGLUC #### [facility] [address] [address] [address] Talia PlascenciaSodium [Moles/Vol]137 mmol/JEvgsui244-910Hmn [facility] Comment on above:Performed By: #### POCGLUC #### [facility] [address] [address] [address] Talia PlascenciaUrea nitrogen [Mass/Vol]22.0 mg/dLCritically high7.0-18.0The [facility] HospitalComment on above:Performed By: #### POCGLUC #### [facility] [address] [address] [address] Talia PlascenciaUrea nitrogen/Creatinine [Mass ratio]17.3 mg/mgNormalThe [place] HospitalComment on above:Performed By: #### POCGLUC #### [facility] [address] [place] [address] Dr. Talia PlascenciaHEMATOLOGYOrdered By: SYSTEM SYSTEM on 36-80-3612Urdkyusrx/100 WBC (Bld)0.8 %Normal0.0 - 2.0 %[facility] HemeAutoSSBasophils/Leukocytes Auto (Bld) [Pure # fraction]0.1 E9/LNormal0.0 - 0.2 E9/LFTMC HemeAutoSSEosinophils/100 WBC (Bld)4.9 %Normal0.0 - 8.0 %[facility] HemeAutoSSEosinophils/Leukocytes Auto (Bld) [Pure # fraction]0.4 E9/LNormal0.0 - 0.5 E9/LFTMC HemeAutoSSLymphocytes/100 WBC (Bld)15.6 %Eqdxnh59.0 - 50.0 %[facility] HemeAutoSSLymphocytes/Leukocytes Auto (Bld) [Pure # fraction]1.4 E9/LNormal1.0 - 4.0 E9/LFTMC HemeAutoSSMonocytes/100 WBC (Bld)7.1 %Normal4.0 - 14.0 %[facility] HemeAutoSSMonocytes/Leukocytes Auto (Bld) [Pure # fraction]0.6 E9/LNormal0.2 - 1.0 E9/LFTMC HemeAutoSSNeutrophils/100 WBC (Bld) 71.6 %Dqlohp73.0 - 75.0 %[facility] HemeAutoSSNeutrophils/Leukocytes Auto (Bld) [Pure # fraction]6.4 E9/LNormal2.0 - 7.5 E9/LFTMC HemeAutoSSHEMATOLOGYOrdered By: Lexii Kelly on 44-66-8323Dubcjfquexc distribution width (RBC) [Ratio]16.1 % High10.9 - 14.2 %[facility] HemeAutoSSHematocrit (Bld) [Volume fraction]48.8 %Normal 37.7 - 49.0 %[facility] HemeAutoSSHemoglobin (Bld) [Mass/Vol]15.9 g/dBLrsmef69.5 - 17.5 gm/dLFTMC HemeAutoSSMCH (RBC) [Entitic mass]26.6 pgLow27.0 - 34.0 pgFALLIANCEHE[facility] HemeAutoSSMCHC (RBC) [Mass/Vol]32.5 g/kIHllryn47.4 - 36.0 gm/dLFT HemeAutoSS MCV (RBC) [Entitic vol]81.9 yJQxuscl16.0 - 100.0 fLMERCY HOSPITAL [facility]DM[facility] [place] HemeAutoSSPlatelet mean volume (Bld) [Entitic vol]9.5 fLNormal6.4 - 10.8 fLFT HemeAutoSSPlatelets (Bld) [#/Vol]205.0 E9/GWvxnrf258.0 - 500.0 E9/LFTMC HemeAutoSSRBC (Bld) [#/Vol] 6.0 E12/LHigh4.3 - 5.9 E12/LFC HemeAutoSSWBC corrected for nucl RBC Auto (Bld) [#/Vol]8.9 E9/LNormal4.0 - 11.0 E9/LFTMC HemeAutoSSXR ABD FLAT UP_PA Rahat 37-95-9856GI ABD FLAT UP_PA CHACUTE ABDOMINAL SERIES HISTORY: [...] Electronically authenticated by: CARLY PRESCOTT Date: 2022-08-04 23:39NormSalem Regional Medical CenterACETONE SERUMon 37-34-7991RDIXAWTYFOGELijptasyJMOPPGENJzw [facility] HospitalComment on above:Performed By: #### CBCMAN #### [facility] [address] [place] [address] Dr. Talia Cedillo AUTO DIFFon 65-55-7735RJYM #0.1 103/ulNormal0.0-0.1The [facility] HospitalComment on above:Performed By: #### CVDTBH #### [facility] [address] [place] [address] Dr. Talia PlascenciaBasophils/100 WBC (Bld)0.5 %Normal0.2-2.0The [facility] Comment on above:Performed By: #### CVDTBH #### [facility] [address] [place] [address] Dr. Talia Oliver #0.1 103/ulNormal0.0-0.7The [facility] HospitalComment on above: Performed By: #### CVDTBH #### [facility] [address] [place] [address] Dr. Talia Schwabosinophils/100 WBC (Bld)1.1 %Normal0.9-7.0The [facility] Comment on above:Performed By: #### CVDTBH #### [facility] [address] [place] [address] Dr. Talia Schwabrythrocyte distribution width (RBC) [Ratio]15.7 %Critically high 11.0-15.0The [facility] HospitalComment on above:Performed By: #### CVDTBH #### [facility] [address] [place] [address] Dr. Talia PlascenciaHematocrit (Bld) [Volume fraction]50.2 %Eayezo69.0-54.0The [facility] HospitalComment on above:Performed By: #### CVDTBH #### [facility] [address] [place] [address] Dr. Talia PlascenciaHemoglobin (Bld) [Mass/Vol]17.3 g/iVIgacpc20.0-18.0The [facility] HospitalComment on above:Performed By: #### CVDTBH #### [facility] [address] [place] [address] Dr. Talia Capone #0.03 10e3/ulNormal0.00-0.03The [facility] HospitalComment on above:Performed By: #### CVDTBH #### [facility] [address] [place] [address] Dr. Talia Capone %0.3 %Normal0.0-0.5The [facility] HospitalComment on above: Performed By: #### CVDTBH #### [facility] [address] [place] [address] Dr. Talia Carbajal #0.7 103/ulCritically low1.2-3.8The [facility] Comment on above:Performed By: #### CVDTBH #### [facility] [address] [place] [address] Dr. Talia Bartonhocytes/100 WBC (Bld)7.0 %Critically low20.5-60.0The [facility] HospitalComment on above:Performed By: #### CVDTBH #### [facility] [address] [place] [address] Dr. Talia Pascal DIFF REQNONormalThe [facility] HospitalComment on above: Performed By: #### CVDTBH #### [facility] [address] [place] [address] Dr. Talia Sanders (RBC) [Entitic mass]26.3 taEqfcgc24.9-34.0The [facility] HospitalComment on above:Performed By: #### CVDTBH #### [facility] [address] [place] [address] Dr. Talia Carr (RBC) [Mass/Vol]34.5 g/zSVyuqad88.9-35.2The [facility] HospitalComment on above:Performed By: #### CVDTBH #### [facility] [address] [place] [address] Dr. Talia Raymond (RBC) [Entitic vol]76.2 fLCritically low80.0-94.0The [facility] HospitalComment on above:Performed By: #### CVDTBH #### [facility] [address] [address] [address] Talia Echols #1.0 103/ulCritically high0.3-0.8The [facility] Comment on above:Performed By: #### CVDTBH #### [facility] [address] [place] [address] Dr. Talia oMranocytes/100 WBC (Bld)9.9 %Normal1.7-12.0[facility] Comment on above:Performed By: #### CVDTBH #### [facility] [address] [place] [address] Dr. Talia Malagon #8.5 103/ulCritically high1.4-6.5The [facility] Comment on above:Performed By: #### CVDTBH #### [facility] [address] [place] [address] Dr. Talia Maddenutrophils/100 WBC (Bld)81.2 %Critically high43.0-75.0The [facility] HospitalComment on above:Performed By: #### CVDTBH #### [facility] [address] [place] [address] Dr. Talia Swartzlet mean volume (Bld) [Entitic vol]10.5 fLNormal9.5-13.5The [facility] HospitalComment on above:Performed By: #### CVDTBH #### [facility] [address] [place] [address] Dr. Talia PlascenciaPLT212 103/fzRgmwyr790-136Wth [facility] HospitalComment on above: Performed By: #### CVDTBH #### [facility] [address] [place] [address] Dr. Talia PlascenciaRBC6.59 106/ulCritically high4.70-6.10ThBluffton Hospital Comment on above:Performed By: #### CVDTB #### [facility] [address] [address] [address] Talia PlascenciaWBC10.4 103/ulNormal4.0-11.0The [facility] HospitalComment on above:Performed By: #### CVDTBH #### [facility] [address] [place] [address] Dr. Talia PlascenciaCovid-19 PCR ([facility])on 57-09-2563HRJP-CoV-2 (COVID-19) RNA REKHA+probe Ql (Unsp spec)DetectedCritically abnormalNOT DETECTEDThe The [facility]vue Hospitalment on above:Result Comment: This test is not yet approved or cleared by the [place] FDA. When there are no FDA-approved or cleared tests available, and other criteria are met, FDA can make tests available under an emergency access mechanism called an Emergency Use Authorization (EUA). The EUA for this test is supported by the Senior Online Marketing Manager of Health and Human Service's declaration that [...] longer be used).Performed By: #### CVDTB #### [facility] [address] [place] [address] Dr. Talia PlascenciaINFLBENTLEY A AND B AGon [id number] A AGNegativeNormal NEGATIVE SEE COMMENTThe [facility] HospitalComment on above:Performed By: #### INFLUAB #### [facility] [address] [place] [address] Dr. Talia PlascenciaINFLBENTLEY B AGNegativeNormalNEGATIVE SEE COMMENTThe [facility] HospitalComment on above:Performed By: #### INFLUAB #### [facility] [address] [place] [address] Dr. Talia PlascenciaINTERNAL CONTROLSWithin Normal LimitsNormalWithin Normal Limits The [facility] HospitalComment on above:Performed By: #### INFLUAB #### [facility] [address] [place] [address] Dr. Talia PlascenciaLACTATE/LACTIC ACIDon [id number] [Moles/Vol]2.1 mmol/L Critically high0.4-1.9The [facility] HospitalComment on above:Performed By: #### CBCMAN #### [facility] [address] [place] [address] Dr. Talia PlascenciaLIPASEon 45-96-6285Uhiilf [Catalytic activity/Vol]135.0 U/LNormal 73.0-393.0The [facility] HospitalComment on above:Performed By: #### INFLUAB #### [facility] [address] [place] [address] Dr. Talia PlascenciaPROF 14(COMP METB)on 22-86-1816Vzkgfpp [Mass/Vol]4.3 g/dLNormal 3.4-5.0The [facility] HospitalComment on above:Performed By: #### INFLUAB #### [facility] [address] [place] [address] Dr. Talia PlascenciaAlbumin/Globulin [Mass ratio]1.0 {ratio}NormalThe [facility] HospitalComment on above:Performed By: #### INFLUAB #### [facility] [address] [place] [address] Dr. Talia Myers [Catalytic activity/Vol]77 U/VGthlec44-245Wae [facility] HospitalComment on above:Performed By: #### INFLUAB #### [facility] [address] [place] [address] Dr. Talia Cody [Catalytic activity/Vol]28 U/UKvundd28-72Dgl [facility] HospitalComment on above:Performed By: #### INFLUAB #### [facility] [address] [place] [address] Dr. Talia Pérez gap [Moles/Vol]20.3 mmol/LNormalThe [facility] on above:Performed By: #### INFLUAB #### [facility] [address] [place] [address] Dr. Talia Mireles [Catalytic activity/Vol]35 U/CIygext54-45Ygq [facility] HospitalComment on above:Performed By: #### INFLUAB #### [facility] [address] [place] [address] Dr. Talia PlascenciaBilirubin [Mass/Vol]1.1 mg/dLCritically high0.2-1.0The [facility] HospitalComment on above:Performed By: #### INFLUAB #### [facility] [address] [place] [address] Dr. Talia PlascenciaCalcium [Mass/Vol]10.1 mg/dLNormal8.5-10.1The [facility] Comment on above:Performed By: #### INFLUAB #### [facility] [address] [place] [address] Dr. Talia PlascenciaChloride [Moles/Vol]95 mmol/LCritically apx06-733Ovm [facility] HospitalComment on above:Performed By: #### INFLUAB #### [facility] [address] [place] [address] Dr. Talia PlascenciaCO2 [Moles/Vol]22.5 mmol/XPpnvbj89.0-32.0The [facility] Comment on above:Performed By: #### INFLUAB #### [facility] [address] [place] [address] Dr. Talia PlascenciaCreatinine [Mass/Vol]1.36 mg/dLCritically high0.70-1.30The [facility] HospitalComment on above:Performed By: #### INFLUAB #### [facility] [address] [place] [address] Dr. Talia SchwabGFR-AF MALAGASY>60Normal>=60The [facility] HospitalComment on above:Performed By: #### INFLUAB #### [facility] [address] [place] [address] Dr. Talia SchwabGFR-NON AF XEFVFCGL62 mL/min/1.41h6Shmwjnmgdu low>=60The [facility] HospitalComment on above:Performed By: #### INFLUAB #### [facility] [address] [place] [address] Dr. Talia PlascenciaGlobulin (S) [Mass/Vol]4.4 g/dLNoSelect Medical [facility], AvonComment on above:Performed By: #### INFLUAB #### [facility] [address] [place] [address] Dr. Talia PlascenciaGlucose [Mass/Vol]220 mg/dLCritically wsdk74-916Cix [facility] HospitalComment on above:Performed By: #### INFLUAB #### [facility] [address] [place] [address] Dr. Talia PlascenciaPotassium [Moles/Vol]4.8 mmol/LNormal3.5-5.1The [facility] Comment on above:Performed By: #### INFLUAB #### [facility] [address] [place] [address] Dr. Talia lPascenciaProtein [Mass/Vol]8.7 g/dLCritically high6.4-8.2The [facility] HospitalComment on above:Performed By: #### INFLUAB #### [facility] [address] [place] [address] Dr. Talia PlascenciaSodium [Moles/Vol]133 mmol/LCritically glj830-293Rvq [facility] HospitalComment on above:Performed By: #### INFLUAB #### [facility] [address] [place] [address] Dr. Talia PlascenciaUrea nitrogen [Mass/Vol]28.0 mg/dLCritically high7.0-18.0The [facility] HospitalComment on above:Performed By: #### INFLUAB #### [facility] [address] [place] [address] Dr. Talia PlascenciaUrea nitrogen/Creatinine [Mass ratio]20.6 mg/mgNoSelect Medical [facility] Hospital, AvonComment on above:Performed By: #### INFLUAB #### [facility] [address] [place] [address] Dr. Talia PlascenciaTESTOSTERONE, TOTALon 29-43-2796Uahtuxbzldxs [Mass/Vol]830 ng/dL Oacles468-145Fnl [facility] HospitalComment on above:Result Comment: Adult male reference interval is based on a population of healthy nonobese males (BMI <30) between 19 and 39 years old. irina Lester.cj. JCEM 2017,102;5919-3435. PMID: [id number].Performed By: #### CBC #### [facility] [address] [place] [address] Dr. Talia Cedillo AUTO DIFFon [id number] #0.1 103/ulNormal0.0-0.1The [facility] HospitalComment on above:Performed By: #### POCGLUC #### [facility] [address] [place] [address] Dr. Talia PlascenciaBasophils/100 WBC (Bld)0.7 %Normal0.2-2.0The [facility] Comment on above:Performed By: #### POCGLUC #### [facility] [address] [place] [address] Dr. Melgar ChangEO #0.5 103/ulNormal0.0-0.7The [facility] HospitalComment on above: Performed By: #### POCGLUC #### [facility] [address] [place] [address] Dr. Talia Schwabosinophils/100 WBC (Bld)5.8 %Normal0.9-7.0The [facility] Comment on above:Performed By: #### POCGLUC #### [facility] [address] [place] [address] Dr. Talia Schwabrythrocyte distribution width (RBC) [Ratio]15.0 %Ifeclk69.0-15.0 The [facility] HospitalComment on above:Performed By: #### POCGLUC #### [facility] [address] [place] [address] Dr. Talia PlascenciaHematocrit (Bld) [Volume fraction]45.9 %Hfjwsu00.0-54.0The [facility] HospitalComment on above:Performed By: #### POCGLUC #### [facility] [address] [place] [address] Dr. Talia PlascenciaHemoglobin (Bld) [Mass/Vol]15.8 g/dGNdtgrt51.0-18.0The [facility] HospitalComment on above:Performed By: #### POCGLUC #### [facility] [address] [address] [address] Talia Capone #0.03 10e3/ulNormal0.00-0.03The [facility] HospitalComment on above:Performed By: #### POCGLUC #### [facility] [address] [address] [address] Talia Capone %0.4 %Normal0.0-0.5The [facility] HospitalComment on above: Performed By: #### POCGLUC #### [facility] [address] [address] [address] Talia Carbajal #1.4 103/ulNormal1.2-3.8The [facility] HospitalComment on above:Performed By: #### POCGLUC #### [facility] [address] [place] [address] Dr. Talia Bartonhocytes/100 WBC (Bld)17.3 %Critically low20.5-60.0The [facility] HospitalComment on above:Performed By: #### POCGLUC #### [facility] [address] [address] [address] Talia DelucaUAL DIFF REQNONormalThe [facility] HospitalComment on above: Performed By: #### POCGLUC #### [facility] [address] [address] [address] Talia German (RBC) [Entitic mass]27.4 pxTdcaxa58.9-34.0The [facility] HospitalComment on above:Performed By: #### POCGLUC #### [facility] [address] [address] [address] Talia German (RBC) [Mass/Vol]34.4 g/wHMgrzzg00.9-35.2The [facility] HospitalComment on above:Performed By: #### POCGLUC #### [facility] [address] [place] [address] Dr. Talia German (RBC) [Entitic vol]79.5 fLCritically low80.0-94.0The [facility] HospitalComment on above:Performed By: #### POCGLUC #### [facility] [address] [place] [address] Dr. Talia Echols #0.5 103/ulNormal0.3-0.8The [facility] HospitalComment on above:Performed By: #### POCGLUC #### [facility] [address] [place] [address] Dr. Talia Moranocytes/100 WBC (Bld)6.6 %Normal1.7-12.0The [facility] Comment on above:Performed By: #### POCGLUC #### [facility] [address] [place] [address] Dr. Talia Malagon #5.6 103/ulNormal1.4-6.5The [facility] HospitalComment on above:Performed By: #### POCGLUC #### [facility] [address] [place] [address] Dr. Talia Maddenutrophils/100 WBC (Bld)69.2 %Wggpae22.0-75.0The [facility] HospitalComment on above:Performed By: #### POCGLUC #### [facility] [address] [place] [address] Dr. Talia Nobles mean volume (Bld) [Entitic vol]10.5 fLNormal9.5-13.5The [facility] HospitalComment on above:Performed By: #### POCGLUC #### [facility] [address] [place] [address] Dr. Talia QuachT216 103/mgUewhlp754-867Yfw [facility] HospitalComment on above: Performed By: #### POCGLUC #### [facility] [address] [place] [address] Dr. Talia PlascenciaRBC5.77 106/ulNormal4.70-6.10The [facility] HospitalComment on above:Performed By: #### POCGLUC #### [facility] [address] [place] [address] Dr. Talia PlascenciaWBC8.2 103/ulNormal4.0-11.0The [facility] HospitalComment on above: Performed By: #### POCGLUC #### [facility] [address] [place] [address] Dr. Talia PlascenciaTESTOSTERONE, TOTALon 40-56-1670Tjtudxqlmktx [Mass/Vol]323 ng/dL Pvvukg824-247Vxq [facility] HospitalComment on above:Result Comment: Adult male reference interval is based on a population of healthy nonobese males (BMI <30) between 19 and 39 years old. irina Lester.al. JCEM 2017,102;8343-3612. PMID: [id number].Performed By: #### TESTTOT #### [facility] [address] [place] [address] Dr. Talia AngelesC AUTO DIFFon 32-93-8659KNBA #0.1 103/ulNormal0.0-0.1The [facility] HospitalComment on above:Performed By: #### CBCMAN #### [facility] [address] [place] [address] Dr. Talia PlascenciaBasophils/100 WBC (Bld)0.9 %Normal0.2-2.0[facility] Comment on above:Performed By: #### CBCMAN #### [facility] [address] [place] [address] Dr. Talia Oliver #0.3 103/ulNormal0.0-0.7The [facility] HospitalComment on above: Performed By: #### CBCMAN #### [facility] [address] [place] [address] Dr. Talia Schwabosinophils/100 WBC (Bld)4.0 %Normal0.9-7.0The [facility] Comment on above:Performed By: #### CBCMAN #### [facility] [address] [place] [address] Dr. Talia Schwabrythrocyte distribution width (RBC) [Ratio]15.6 %Critically high 11.0-15.0The [facility] HospitalComment on above:Performed By: #### CBCMAN #### [facility] [address] [place] [address] Dr. Talia PlsacenciaHematocrit (Bld) [Volume fraction]43.9 %Ikqejl20.0-54.0The [facility] Hospitalment on above:Performed By: #### CBCANALI #### [facility] [address] [place] [address] Dr. Talia PlascenciaHemoglobin (Bld) [Mass/Vol]14.5 g/uOTdamak36.0-18.0The [facility] HospitalComment on above:Performed By: #### LILIAM #### [facility] [address] [place] [address] Dr. Talia Capone #0.02 10e3/ulNormal0.00-0.03The [facility] HospitalComment on above:Performed By: #### LILIAM #### [facility] [address] [place] [address] Dr. Talia Capone %0.3 %Normal0.0-0.5The [facility] HospitalComment on above: Performed By: #### LILIAM #### [facility] [address] [place] [address] Dr. Talia Carbajal #1.6 103/ulNormal1.2-3.8The [facility] HospitalComment on above:Performed By: #### LILIAM #### [facility] [address] [place] [address] Dr. Talia Manleymphocytes/100 WBC (Bld)23.5 %Qeuqnq54.5-60.0The [facility] HospitalComment on above:Performed By: #### CBCANALI #### [facility] [address] [place] [address] Dr. Talia DelucaUAL DIFF REQNONormalThe [facility] HospitalComment on above: Performed By: #### CBCANALI #### [facility] [address] [place] [address] Dr. Talia Sanders (RBC) [Entitic mass]26.1 ucHkytoy82.9-34.0The [facility] HospitalComment on above:Performed By: #### CBCANALI #### [facility] [address] [place] [address] Dr. Talia German (RBC) [Mass/Vol]33.0 g/zBFklrow35.9-35.2The [facility] HospitalComment on above:Performed By: #### CBCANALI #### [facility] [address] [place] [address] Dr. Talia German (RBC) [Entitic vol]79.0 fLCritically low80.0-94.0The [facility] HospitalComment on above:Performed By: #### CBCANALI #### [facility] [address] [place] [address] Dr. Talia Echols #0.6 103/ulNormal0.3-0.8The [facility] HospitalComment on above:Performed By: #### CBCANALI #### [facility] [address] [place] [address] Dr. Talia Moranocytes/100 WBC (Bld)8.2 %Normal1.7-12.0The [facility] Comment on above:Performed By: #### CBCANALI #### [facility] [address] [place] [address] Dr. Talia Malagon #4.4 103/ulNormal1.4-6.5The [facility] HospitalComment on above:Performed By: #### CBCANALI #### [facility] [address] [place] [address] Dr. Talia Maddenutrophils/100 WBC (Bld)63.1 %Uybvys41.0-75.0The [facility] HospitalComment on above:Performed By: #### CBCANALI #### [facility] [address] [place] [address] Dr. Talia Swartzlet mean volume (Bld) [Entitic vol]11.6 fLNormal9.5-13.5The [facility] HospitalComment on above:Performed By: #### CBCANALI #### [facility] [address] [place] [address] Dr. Talia QuachT247 103/lnCcmojq418-918Gvi [facility] HospitalComment on above: Performed By: #### CBCMAN #### [facility] [address] [place] [address] Dr. Talia PlascenciaRBC5.56 106/ulNormal4.70-6.10The [facility] HospitalComment on above:Performed By: #### CBCMAN #### [facility] [address] [place] [address] Dr. Talia PlascenciaWBC6.9 103/ulNormal4.0-11.0The [facility] HospitalComment on above: Performed By: #### CBCMAN #### [facility] [address] [place] [address] Dr. Talia Cedillo AUTO DIFFon [id number] #0.0 103/ulNormal0.0-0.1The [facility] HospitalComment on above:Performed By: #### CBC #### [facility] [address] [place] [address] Dr. Talia PlascenciaBasophils/100 WBC (Bld)0.4 %Normal0.2-2.0[facility] Comment on above:Performed By: #### CBC #### [facility] [address] [place] [address] Dr. Talia Oliver #0.3 103/ulNormal0.0-0.7The [facility] HospitalComment on above: Performed By: #### CBC #### [facility] [address] [place] [address] Dr. Talia Schwabosinophils/100 WBC (Bld)4.4 %Normal0.9-7.0The [facility] Comment on above:Performed By: #### CBC #### [facility] [address] [place] [address] Dr. Talia Schwabrythrocyte distribution width (RBC) [Ratio]15.1 %Critically high 11.0-15.0The [facility] HospitalComment on above:Performed By: #### CBC #### [facility] [address] [place] [address] Dr. Talia PlascenciaHematocrit (Bld) [Volume fraction]42.0 %Ykqemt74.0-54.0The [facility] HospitalComment on above:Performed By: #### CBC #### [facility] [address] [address] [address] Talia PlascenciaHemoglobin (Bld) [Mass/Vol]14.2 g/wUSnzjtb66.0-18.0The [facility] HospitalComment on above:Performed By: #### CBC #### [facility] [address] [place] [address] Dr. Talia PlascenciaIG #0.02 10e3/ulNormal0.00-0.03The [facility] HospitalComment on above:Performed By: #### CBC #### [facility] [address] [place] [address] Dr. Talia PlascenciaIG %0.3 %Normal0.0-0.5The [facility] HospitalComment on above: Performed By: #### CBC #### [facility] [address] [place] [address] Dr. Talia Carbajal #1.1 103/ulCritically low1.2-3.8The [facility] Comment on above:Performed By: #### CBC #### [facility] [address] [place] [address] Dr. Talia Manleymphocytes/100 WBC (Bld)14.5 %Critically low20.5-60.0The [facility] HospitalComment on above:Performed By: #### CBC #### [facility] [address] [place] [address] Dr. Talia PlascenciaMANUAL DIFF REQNONormalThe [facility] HospitalComment on above: Performed By: #### CBC #### [facility] [address] [place] [address] Dr. Talia Sanders (RBC) [Entitic mass]26.4 mbWbiywd50.9-34.0The [facility] HospitalComment on above:Performed By: #### CBC #### [facility] [address] [place] [address] Dr. Talia GermanHC (RBC) [Mass/Vol]33.8 g/qLRwdjkw26.9-35.2The [facility] HospitalComment on above:Performed By: #### CBC #### [facility] [address] [address] [address] Talia GermanV (RBC) [Entitic vol]78.2 fLCritically low80.0-94.0The [facility] HospitalComment on above:Performed By: #### CBC #### [facility] [address] [address] [address] Talia Echols #0.5 103/ulNormal0.3-0.8The [facility] HospitalComment on above:Performed By: #### CBC #### [facility] [address] [place] [address] Dr. Talia Moranocytes/100 WBC (Bld)6.8 %Normal1.7-12.0The [facility] Comment on above:Performed By: #### CBC #### [facility] [address] [place] [address] Dr. Talia Malagon #5.6 103/ulNormal1.4-6.5The [facility] HospitalComment on above:Performed By: #### CBC #### [facility] [address] [place] [address] Dr. Talia Maddenutrophils/100 WBC (Bld)73.6 %Zzvwqn71.0-75.0The [facility] HospitalComment on above:Performed By: #### CBC #### [facility] [address] [address] [address] Talia Swartzlet mean volume (Bld) [Entitic vol]10.7 fLNormal9.5-13.5The [facility] HospitalComment on above:Performed By: #### CBC #### [facility] [address] [place] [address] Dr. Talia PlascenciaPLT182 103/aeGqxktr135-248Qnk [facility] HospitalComment on above: Performed By: #### CBC #### [facility] [address] [place] [address] Dr. Talia PlascenciaRBC5.37 106/ulNormal4.70-6.10The [facility] on above:Performed By: #### CBC #### [facility] [address] [place] [address] Dr. Talia PlascenciaWBC7.7 103/ulNormal4.0-11.0The [facility]ment on above: Performed By: #### CBC #### [facility] [address] [place] [address] Dr. Talia PlascenciaCRRenard 85-73-2755DIX05.2 mg/dLCritically high<=1.0The [facility] on above:Performed By: #### CBCMAN #### [facility] [address] [place] [address] Dr. Talia PlascenciaAUSTIN OF CARE GLUCOSEon 60-00-7382Jbgcgqe [Mass/Vol]135 mg/dL Critically yezu64-111Ajm [facility] on above:Performed By: #### POCGLUC #### [facility] [address] [place] [address] Dr. Talia PlascenciaPROF 14(COMP METB)on 15-25-7790Yrxnsuy [Mass/Vol]3.2 g/dL Critically low3.4-5.0The [facility] on above:Performed By: #### INFLUAB #### [facility] [address] [place] [address] Dr. Talia PlascenciaAlbumin/Globulin [Mass ratio]0.8 {ratio}NormalThe [facility] on above:Performed By: #### INFLUAB #### [facility] [address] [place] [address] Dr. Talia Myers [Catalytic activity/Vol]61 U/NIohlkj59-593Lvs [facility] on above:Performed By: #### INFLUAB #### [facility] [address] [place] [address] Dr. Talia Cody [Catalytic activity/Vol]25 U/MZqjjti54-84Efw [facility] HospitalComment on above:Performed By: #### INFLUAB #### [facility] [address] [address] [address] Talia Pérez gap [Moles/Vol]15.6 mmol/LNormalFirelands Regional Medical Center Comment on above:Performed By: #### INFLUAB #### [facility] [address] [address] [address] Talia PlascenciaAST [Catalytic activity/Vol]31 U/WOnggsz10-16Iwz [facility] HospitalComment on above:Performed By: #### INFLUAB #### [facility] [address] [address] [address] Talia PlascenciaBilirubin [Mass/Vol]0.6 mg/dLNormal0.2-1.0[facility] Comment on above:Performed By: #### INFLUAB #### [facility] [address] [address] [address] Talia PlascenciaCalcium [Mass/Vol]8.7 mg/dLNormal8.5-10.1[facility] Comment on above:Performed By: #### INFLUAB #### [facility] [address] [address] [address] Talia PlascenciaChloride [Moles/Vol]99 mmol/IEkcdiu19-392Iai [facility] Comment on above:Performed By: #### INFLUAB #### [facility] [address] [address] [address] Talia PlascenciaCO2 [Moles/Vol]22.6 mmol/TScuhaq58.0-32.0The [facility] Comment on above:Performed By: #### INFLUAB #### [facility] [address] [address] [address] Talia PlascenciaCreatinine [Mass/Vol]1.06 mg/dLNormal0.70-1.30The [facility] HospitalComment on above:Performed By: #### INFLUAB #### [facility] [address] [address] [address] Melgar ChangEGFR-AF MALAGASY>60Normal>=60The [facility] HospitalComment on above:Performed By: #### INFLUAB #### [facility] [address] [address] [address] Talia SchwabGFR-NON AF MALAGASY>60Normal>=60The [facility] HospitalComment on above:Performed By: #### INFLUAB #### [facility] [address] [address] [address] Talia PlascenciaGlobulin (S) [Mass/Vol]3.8 g/dLNormalThBluffton HospitalComment on above:Performed By: #### INFLUAB #### [facility] [address] [address] [address] Talia PlascenciaGlucose [Mass/Vol]136 mg/dLCritically [id number] [facility] HospitalComment on above:Performed By: #### INFLUAB #### [facility] [address] [place] [address] Dr. Talia PlascenciaPotassium [Moles/Vol]4.2 mmol/LNormal3.5-5.1The [facility] Comment on above:Performed By: #### INFLUAB #### [facility] [address] [address] [address] Talia PlascenciaProtein [Mass/Vol]7.0 g/dLNormal6.4-8.2The [facility] Comment on above:Performed By: #### INFLUAB #### [facility] [address] [address] [address] Talia PlascenciaSodium [Moles/Vol]133 mmol/LCritically jfd933-841Htm [facility] HospitalComment on above:Performed By: #### INFLUAB #### [facility] [address] [address] [address] Talia PlascenciaUrea nitrogen [Mass/Vol]15.0 mg/dLNormal7.0-18.0The [facility] HospitalComment on above:Performed By: #### INFLUAB #### [facility] [address] [address] [address] Talia PlascenciaUrea nitrogen/Creatinine [Mass ratio]14.2 mg/mgNormalThe [facility] HospitalComment on above:Performed By: #### INFLUAB #### [facility] [address] [place] [address] Dr. Talia Marinelli. DIFF PCRon 2C. DIFFICILE PCRNegativeNormalNEGATIVEThe [facility] HospitalComment on above:Performed By: #### POCGLUC #### [facility] [address] [place] [address] Dr. Talia Cedillo AUTO DIFFon [id number] #0.0 103/ulNormal0.0-0.1The [facility] HospitalComment on above:Performed By: #### POCGLUC #### [facility] [address] [place] [address] Dr. Talia PlascenciaBasophils/100 WBC (Bld)0.3 %Normal0.2-2.0[facility] Comment on above:Performed By: #### POCGLUC #### [facility] [address] [place] [address] Dr. Talia Oliver #0.2 103/ulNormal0.0-0.7The [facility] HospitalComment on above: Performed By: #### POCGLUC #### [facility] [address] [place] [address] Dr. Talia Schwabosinophils/100 WBC (Bld)2.9 %Normal0.9-7.0[facility] Comment on above:Performed By: #### POCGLUC #### [facility] [address] [place] [address] Dr. Talia Schwabrythrocyte distribution width (RBC) [Ratio]14.8 %Clvbxk70.0-15.0 [facility] CenterComment on above:Performed By: #### POCGLUC #### [facility] [address] [place] [address] Dr. Talia PlascenciaHematocrit (Bld) [Volume fraction]40.0 %Critically low42.0-54.0 The [facility] HospitalComment on above:Performed By: #### POCGLUC #### [facility] [address] [place] [address] Dr. Talia PlascenciaHemoglobin (Bld) [Mass/Vol]13.5 g/dLCritically low14.0-18.0The [facility] HospitalComment on above:Performed By: #### POCGLUC #### [facility] [address] [place] [address] Dr. Talia Capone #0.02 10e3/ulNormal0.00-0.03The [facility] HospitalComment on above:Performed By: #### POCGLUC #### [facility] [address] [place] [address] Dr. Talia Capone %0.3 %Normal0.0-0.5The [facility] HospitalComment on above: Performed By: #### POCGLUC #### [facility] [address] [place] [address] Dr. Talia Carbajal #0.8 103/ulCritically low1.2-3.8The [facility] Comment on above:Performed By: #### POCGLUC #### [facility] [address] [place] [address] Dr. Talia Bartonhocytes/100 WBC (Bld)11.5 %Critically low20.5-60.0The [facility] HospitalComment on above:Performed By: #### POCGLUC #### [facility] [address] [place] [address] Dr. Talia DelucaUAL DIFF REQNONormalThe [facility] HospitalComment on above: Performed By: #### POCGLUC #### [facility] [address] [place] [address] Dr. Talia German (RBC) [Entitic mass]26.3 ijQdsziw45.9-34.0The [facility] HospitalComment on above:Performed By: #### POCGLUC #### [facility] [address] [place] [address] Dr. Talia German (RBC) [Mass/Vol]33.8 g/bZByyvhr89.9-35.2The [facility] HospitalComment on above:Performed By: #### POCGLUC #### [facility] [address] [address] [address] Talia GermanV (RBC) [Entitic vol]78.0 fLCritically low80.0-94.0The [facility]ment on above:Performed By: #### POCGLUC #### [facility] [address] [place] [address] Dr. Talia Echols #0.6 103/ulNormal0.3-0.8The [facility] HospitalComment on above:Performed By: #### POCGLUC #### [facility] [address] [place] [address] Dr. Talia Moranocytes/100 WBC (Bld)9.1 %Normal1.7-12.0The [facility] Comment on above:Performed By: #### POCGLUC #### [facility] [address] [place] [address] Dr. Talia Malagon #5.2 103/ulNormal1.4-6.5The [facility] on above:Performed By: #### POCGLUC #### [facility] [address] [place] [address] Dr. Talia Maddenutrophils/100 WBC (Bld)75.9 %Critically high43.0-75.0The [facility] HospitalComment on above:Performed By: #### POCGLUC #### [facility] [address] [place] [address] Dr. Taila Swartzlet mean volume (Bld) [Entitic vol]10.7 fLNormal9.5-13.5The [facility]ment on above:Performed By: #### POCGLUC #### [facility] [address] [place] [address] Dr. Talia PlascenciaPLT149 103/ulCritically scn962-055Yvf The [facility] Hospitalment on above:Performed By: #### POCGLUC #### [facility] [address] [place] [address] Dr. Talia PlascenciaRBC5.13 106/ulNormal4.70-6.10The [facility] HospitalComment on above:Performed By: #### POCGLUC #### [facility] [address] [place] [address] Dr. Talia PlascenciaWBC6.8 103/ulNormal4.0-11.0The [facility] on above: Performed By: #### POCGLUC #### [facility] [address] [place] [address] Dr. Talia Win 17-48-2346CBY10.2 mg/dLCritically high<=1.0The [facility] HospitalCommymich[facility] on above:Performed By: #### INFLUAB #### [facility] [address] [place] [address] Dr. Talia Cordero URINE PROFILEon 45-18-1156Dakuwrezh Ql (U)NegativeNormal NEGATIVEThe [facility] HospitalCommymich[facility] on above:Performed By: #### DESMOND ERUR #### [facility] [address] [place] [address] Dr. Talia PlascenciaClarity (U)CLEARNormalCLEARFirelands Regional Medical CenterComment on above: Performed By: #### DESMOND ERUR #### [facility] [address] [place] [address] Dr. Talia Go (U)YELLOWNormalYELLOWFirelands Regional Medical CenterCommymichigan medical center [facility] on above: Performed By: #### DESMOND ERUR #### [facility] [address] [place] [address] Dr. Talia Rosales micrscopic examination will be performed if indicated. NormalThe [facility] HospitalCommymich[facility] on above:Performed By: #### DESMOND, ERUR #### [facility] [address] [place] [address] Dr. Talia PlascenciaGlucose Ql (U)>1000AbnormalNEGATIVEThe [facility] HospitalCommym[facility] on above:Performed By: #### UMICRO, ERUR #### [facility] [address] [place] [address] Dr. Talia PlascenciaHemoglobin Ql (U)TRACE-INTACTAbnormalNEGATIVEFirelands Regional Medical CenterCommymichigan medical [facility] on above:Performed By: #### DESMOND ERUR #### [facility] [address] [address] [address] Talia Fuchs Ql (U)TRACEAbnormalNEGATIVEThe [facility] HospitalComment on above:Performed By: #### DESMOND ERUR #### [facility] [address] [place] [address] Dr. Talia PlascenciaLEUKOCYTESNegativeNormalNEGATIVEThe [facility] HospitalComment on above:Performed By: #### DESMOND ERUR #### [facility] [address] [address] [address] Talia Goldmantrcolleen Ql (U)NegativeNormalNEGATIVEThe [facility] HospitalComment on above:Performed By: #### DESMOND ERUR #### [facility] [address] [place] [address] Dr. Talia PlascenciapH (U)6.0 [pH]Normal5-9The [facility] HospitalComment on above: Performed By: #### DESMOND ERUR #### [facility] [address] [place] [address] Dr. Talia PlascenciaSPEC GRAVITY1.738Tslmvq7.005-<=1.025The [facility] HospitalComment on above:Performed By: #### DESMOND ERUR #### [facility] [address] [place] [address] Dr. Talia PlascenciaUA PROTEINNegativeNormalNEGATIVE/ TRACEThe [facility] on above:Performed By: #### DESMOND ERUR #### [facility] [address] [place] [address] Dr. Talia Jefferson MICRO INDINDICATEDNormalThe [facility] HospitalComment on above: Performed By: #### JACKLYN LOGANR #### [facility] [address] [place] [address] Dr. Talia Haleyinogen Qn (U)1.0 {Suellen'U}/dLNormal0.2 - 1.0The [facility] HospitalComment on above:Performed By: #### JACKLYN LOGANR #### [facility] [address] [address] [address] Talia PlascenciaPOINT OF CARE GLUCOSEon 20-36-5948Kmlhfcz [Mass/Vol]148 mg/dL Critically gfsu33-826Tsp [facility] HospitalComment on above:Performed By: #### INFLUAB #### [facility] [address] [address] [address] Talia PlascenciaGlucose [Mass/Vol]199 mg/dLCritically vgpo58-947Mct [facility] HospitalComment on above:Performed By: #### CBC #### [facility] [address] [address] [address] Talia PlascenciaGlucose [Mass/Vol]176 mg/dLCritically uzxb19-450Ehv [facility] HospitalComment on above:Performed By: #### INFLUAB #### [facility] [address] [place] [address] Dr. Talia PlascenciaPROF 14(COMP METB)on 68-16-7464Yukonrh [Mass/Vol]2.9 g/dL Critically low3.4-5.0The [facility] HospitalComment on above:Performed By: #### INFLUAB #### [facility] [address] [address] [address] Talia PlascenciaAlbumin/Globulin [Mass ratio]0.8 {ratio}NormalThe [facility] HospitalComment on above:Performed By: #### INFLUAB #### [facility] [address] [address] [address] Talia Myers [Catalytic activity/Vol]58 U/OJdcztm54-053Xxr [facility] HospitalComment on above:Performed By: #### INFLUAB #### [facility] [address] [address] [address] Talia Cody [Catalytic activity/Vol]20 U/ZIjlycx87-83Vgq [facility] HospitalComment on above:Performed By: #### INFLUAB #### [facility] [address] [address] [address] Talia Pérez gap [Moles/Vol]12.7 mmol/LNormalThe [facility] Comment on above:Performed By: #### INFLUAB #### [facility] [address] [address] [address] aTlia PlascenciaAST [Catalytic activity/Vol]25 U/HDvrkpu88-98Ugw [facility] HospitalComment on above:Performed By: #### INFLUAB #### [facility] [address] [address] [address] Talia PlascenciaBilirubin [Mass/Vol]0.7 mg/dLNormal0.2-1.0[facility] Comment on above:Performed By: #### INFLUAB #### [facility] [address] [address] [address] Talia PlascenciaCalcium [Mass/Vol]8.1 mg/dLCritically low8.5-10.1The [facility] HospitalComment on above:Performed By: #### INFLUAB #### [facility] [address] [address] [address] Talia PlascenciaChloride [Moles/Vol]101 mmol/DPcefrx72-992Dji [facility] Comment on above:Performed By: #### INFLUAB #### [facility] [address] [address] [address] Talia PlascenciaCO2 [Moles/Vol]22.3 mmol/YLkajiv57.0-32.0[facility] Comment on above:Performed By: #### INFLUAB #### [facility] [address] [address] [address] Talia PlascenciaCreatinine [Mass/Vol]1.13 mg/dLNormal0.70-1.30The [facility] HospitalComment on above:Performed By: #### INFLUAB #### [facility] [address] [address] [address] Melgar ChangEGFR-AF MALAGASY>60Normal>=60The [facility] HospitalComment on above:Performed By: #### INFLUAB #### [facility] [address] [address] [address] Melgar ChangEGFR-NON AF MALAGASY>60Normal>=60The [facility] HospitalComment on above:Performed By: #### INFLUAB #### [facility] [address] [address] [address] Talia PlascenciaGlobulin (S) [Mass/Vol]3.6 g/dLNormalThBluffton HospitalComment on above:Performed By: #### INFLUAB #### [facility] [address] [address] [address] Talia PlascenciaGlucose [Mass/Vol]148 mg/dLCritically gcgs65-076Gcq [facility] HospitalComment on above:Performed By: #### INFLUAB #### [facility] [address] [address] [address] Talia PlascenciaPotassium [Moles/Vol]4.0 mmol/LNormal3.5-5.1The [facility] Comment on above:Performed By: #### INFLUAB #### [facility] [address] [address] [address] Talia PlascenciaProtein [Mass/Vol]6.5 g/dLNormal6.4-8.2The [facility] Comment on above:Performed By: #### INFLUAB #### [facility] [address] [address] [address] Talia PlascenciaSodium [Moles/Vol]132 mmol/LCritically pke244-937Otc [facility] on above:Performed By: #### INFLUAB #### [facility] [address] [address] [address] Talia PlascenciaUrea nitrogen [Mass/Vol]19.0 mg/dLCritically high7.0-18.0[facility] on above:Performed By: #### INFLUAB #### [facility] [address] [address] [address] Talia Chambers nitrogen/Creatinine [Mass ratio]16.8 mg/mgNoSelect Medical [facility] Clinic [facility] Hospital, AvonCommymichigan medical center [facility] branch on above:Performed By: #### INFLUAB #### [facility] [address] [address] [address] Talia PlascenciaURINE MICROSCOPIC ONLYon 15-06-5375DAOHCQTRFBOP SEENNormalNONE SEENBluffton Hospital on above:Performed By: #### CVDTBH #### [facility] [address] [address] [address] Talia Abel identified Cx Nom (U)NOT INDICATEDMagruder Hospital on above:Performed By: #### CVDTBH #### [facility] [address] [address] [address] Talia PlascenciaCASTNONE SEENNormalNONE SEENBluffton Hospital on above:Performed By: #### CVDTBH #### [facility] [address] [address] [address] Talia Whiteystals LM Nom (Urine sed)SEENAbnormalNONE SEENBluffton Hospital on above:Performed By: #### CVDTBH #### [facility] [address] [address] [address] Melgar ChangEpithelial cells LM Ql (Urine sed)NONE SEENNormalNONE SEEN /RARE The [facility] on above:Performed By: #### CVDTBH #### [facility] [address] [address] [address] Talia MayCOUSNONE SEENNormalNONE [facility] on above:Performed By: #### CVDTBH #### [facility] [address] [address] [address] Talia PortilloCNJENNIFER SEENAbrmal0-2[facility] on above: Performed By: #### CVDTBH #### [facility] [address] [address] [address] Talia PlascenciaURIC ACID CRYSTALSFEElyria Memorial HospitalCommymichigan medical center [facility] on above: Performed By: #### CVDTBH #### [facility] [address] [address] [address] Talia PlascenciaWBCNONE SEENNormalNONE [facility] on above: Performed By: #### CVDTBH #### [facility] [address] [address] [address] Talia Cedillo W MANUAL DIFFon 58-25-7717DAGLOWQX LYMPH #NormalThe [facility] HospitalComment on above:Performed By: #### CVDTBH #### [facility] [address] [place] [address] Dr. Talia PlascenciaATYPICAL LYMPH %NormalThe [facility] HospitalComment on above: Performed By: #### CVDTBH #### [facility] [address] [place] [address] Dr. Talia John #0.2 103/ulNormal0.0-0.3The [facility] HospitalComment on above:Performed By: #### CVDTBH #### [facility] [address] [place] [address] Dr. Talia John %2 %Normal0-5The [facility] HospitalComment on above:Performed By: #### AXELTBH #### [facility] [address] [place] [address] Dr. Talia Wesley #0.00 103/ulNormal0.00-0.10The [facility] HospitalComment on above:Performed By: #### CVDTBH #### [facility] [address] [place] [address] Dr. Talia Wesley %0.0 %Critically low0.2-2.0The [facility] HospitalComment on above:Performed By: #### CVDTBH #### [facility] [address] [place] [address] Dr. Talia Hough #NormalThe [facility] HospitalComment on above:Performed By: #### CVDTBH #### [facility] [address] [place] [address] Dr. Talia Hough %NormalThe [facility] HospitalComment on above:Performed By: #### CVDTBH #### [facility] [address] [place] [address] Dr. Talia PlascenciaCORRECTED WBCNormal4.0-11.0The [facility] HospitalComment on above: Performed By: #### CVDTBH #### [facility] [address] [address] [address] Talia Bunch #0.00 103/ulNormal0.00-0.70The [facility] HospitalComment on above:Performed By: #### CVDTBH #### [facility] [address] [address] [address] Talia Bunch%0.0 %Critically low0.9-7.0The [facility] HospitalComment on above:Performed By: #### CVDTBH #### [facility] [address] [address] [address] Talia RojasT40.0 %Critically low42.0-54.0The [facility] HospitalComment on above:Performed By: #### CVDTBH #### [facility] [address] [address] [address] Talia PlascenciaHGB13.6 g/dlCritically low14.0-18.0The [facility] HospitalComment on above:Performed By: #### CVDTBH #### [facility] [address] [address] [address] Talia Chaparro #0.61 103/ulCritically low1.20-3.80The [facility] Comment on above:Performed By: #### CVDTBH #### [facility] [address] [address] [address] Talia Chaparro%6.0 %Critically low20.5-60.0The [facility] HospitalComment on above:Performed By: #### CVDTBH #### [facility] [address] [address] [address] Talia GermanH26.5 sfKcezca01.9-34.0The [facility] HospitalComment on above: Performed By: #### CVDTBH #### [facility] [address] [address] [address] Talia GermanHC34.0 g/swRxcmsc11.9-35.2The [facility] HospitalComment on above:Performed By: #### CVDTBH #### [facility] [address] [place] [address] Dr. Talia GermanV78.0 fLCritically low80.0-94.0The [facility] HospitalComment on above:Performed By: #### CVDTBH #### [facility] [address] [place] [address] Dr. Talia AshfordOCYTE #NormalThe [facility] HospitalComment on above: Performed By: #### CVDTBH #### [facility] [address] [place] [address] Dr. Talia AshfordOCYTE %NormalThe [facility] HospitalComment on above: Performed By: #### CVDTBH #### [facility] [address] [place] [address] Dr. Talia Pascual#0.71 103/ulNormal0.30-0.80The [facility] HospitalComment on above:Performed By: #### CVDTBH #### [facility] [address] [place] [address] Dr. Talia Pascual%7.0 %Normal1.7-12.0The [facility] HospitalComment on above: Performed By: #### CVDTBH #### [facility] [address] [place] [address] Dr. Talia JonV10.2 fLNormal9.5-13.5The [facility] HospitalComment on above: Performed By: #### CVDTBH #### [facility] [address] [place] [address] Dr. Talia Medina #NormalFirelands Regional Medical CenterComment on above:Performed By: #### CVDTBH #### [facility] [address] [place] [address] Dr. Talia CrossOCYTE %NormalThe [facility] HospitalComment on above:Performed By: #### CVDTBH #### [facility] [address] [place] [address] Dr. Talia SalinasBCNormalThe [facility] HospitalComment on above:Performed By: #### CVDTBH #### [facility] [address] [address] [address] Talia PlascenciaPLT141 103/ulCritically ugg358-787Sml [facility] HospitalComment on above:Performed By: #### CVDTBH #### [facility] [address] [address] [address] Talia PlascenciaRBC5.13 106/ulNormal4.70-6.10The [facility] HospitalComment on above:Performed By: #### CVDTBH #### [facility] [address] [address] [address] Talia PlascenciaRDW14.7 %Sbchow26.0-15.0The [facility] HospitalComment on above: Performed By: #### CVDTBH #### [facility] [address] [address] [address] Talia Alejandro #8.67 103/ulCritically high1.40-6.50The [facility] Comment on above:Performed By: #### CVDTBH #### [facility] [address] [place] [address] Dr. Talia Alejandro %85.0 %Critically high43.0-75.0The [facility] HospitalComment on above:Performed By: #### CVDTBH #### [facility] [address] [place] [address] Dr. Talia PlascenciaWBC10.2 103/ulNormal4.0-11.0The [facility] HospitalComment on above:Performed By: #### CVDTBH #### [facility] [address] [address] [address] Talia Win 23-20-0660IXO [Mass/Vol]mg/LCritically high<=1.0The [facility] HospitalComment on above:Performed By: #### CVDTBH #### [facility] [address] [address] [address] Talia PlascenciaADVENTHEALTH GORDON GLUCOSEon 74-94-8315Nrloayu [Mass/Vol]144 mg/dL Critically yzih63-117Hba [facility] HospitalComment on above:Performed By: #### CBCMAN #### [facility] [address] [address] [address] Talia PlascenciaGlucose [Mass/Vol]123 mg/dLCritically jmar72-316Nkb [facility] HospitalComment on above:Performed By: #### INFLUAB #### [facility] [address] [address] [address] Talia PlascenciaGlucose [Mass/Vol]222 mg/dLCritically sxja21-931Kdw [facility] HospitalComment on above:Performed By: #### POCGLUC #### [facility] [address] [address] [address] Talia PlascenciaGlucose [Mass/Vol]174 mg/dLCritically khtb27-616Zfh [facility] HospitalComment on above:Performed By: #### CBC #### [facility] [address] [address] [address] Talia PlascenciaPROF 14(COMP METB)on 20-91-5133Yliplha [Mass/Vol]2.9 g/dL Critically low3.4-5.0The [facility] HospitalComment on above:Performed By: #### CBCMAN #### [facility] [address] [address] [address] Talia PlascenciaAlbumin/Globulin [Mass ratio]0.9 {ratio}NormalThe [facility] HospitalComment on above:Performed By: #### CBCMAN #### [facility] [address] [address] [address] Talia Myers [Catalytic activity/Vol]55 U/PMbvgqy57-287Kyt [facility] HospitalComment on above:Performed By: #### CBCMAN #### [facility] [address] [address] [address] Talia Cody [Catalytic activity/Vol]19 U/STgxhqc86-53Dmv [facility] HospitalComment on above:Performed By: #### CBCMAN #### [facility] [address] [address] [address] Talia Pérez gap [Moles/Vol]16.2 mmol/LNormalThe [facility] Comment on above:Performed By: #### CBCMAN #### [facility] [address] [address] [address] Talia PlascenciaAST [Catalytic activity/Vol]32 U/NKvqwnt98-20Fwx [facility] Hospitalment on above:Performed By: #### CBCANALI #### [facility] [address] [address] [address] Talia PlascenciaBilirubin [Mass/Vol]1.3 mg/dLCritically high0.2-1.0The [facility] HospitalComment on above:Performed By: #### CBCANALI #### [facility] [address] [address] [address] aTlia PlascenciaCalcium [Mass/Vol]7.8 mg/dLCritically low8.5-10.1The [facility] HospitalComment on above:Performed By: #### LILIAM #### [facility] [address] [place] [address] Dr. Talia PlascenciaChloride [Moles/Vol]99 mmol/WQjzecf26-359Yuu [facility] Comment on above:Performed By: #### CBCANALI #### [facility] [address] [address] [address] Talia PlascenciaCO2 [Moles/Vol]20.2 mmol/LCritically low21.0-32.0The [facility] HospitalCommymichigan [facility] on above:Performed By: #### CBCANALI #### [facility] [address] [place] [address] Dr. Talia PlascenciaCreatinine [Mass/Vol]1.34 mg/dLCritically high0.70-1.30The [facility] HospitalCommymichigan [facility] on above:Performed By: #### CBCANALI #### [facility] [address] [place] [address] Dr. Melgar ChangEGFR-AF MALAGASY>60Normal>=60The [facility] Hospitalment on above:Performed By: #### CBCMAN #### [facility] [address] [place] [address] Dr. Talia SchwabGFR-NON AF TFWGRXML13 mL/min/1.72q9Hvcnrfmrqs low>=60The [facility] Hospitalment on above:Performed By: #### CBCMAN #### [facility] [address] [address] [address] Talia PlascenciaGlobulin (S) [Mass/Vol]3.4 g/dLNoSelect Medical [facility] Clinic [facility] Hospital, AvonComment on above:Performed By: #### CBCANALI #### [facility] [address] [address] [address] Talia PlascenciaGlucose [Mass/Vol]179 mg/dLCritically zbep03-013Slc [facility] HospitalComment on above:Performed By: #### CBCANALI #### [facility] [address] [address] [address] Talia PlascenciaPotassium [Moles/Vol]4.4 mmol/LNormal3.5-5.1The [facility] Comment on above:Performed By: #### CBCANALI #### [facility] [address] [address] [address] Talia PlascneciaProtein [Mass/Vol]6.3 g/dLCritically low6.4-8.2The [facility] HospitalComment on above:Performed By: #### CBCANALI #### [facility] [address] [address] [address] Talia PlascenciaSodium [Moles/Vol]131 mmol/LCritically voz854-283Chf [facility] on above:Performed By: #### CBCANALI #### [facility] [address] [address] [address] Talia PlascenciaUrea nitrogen [Mass/Vol]25.0 mg/dLCritically high7.0-18.0The [facility] HospitalComment on above:Performed By: #### CBCANALI #### [facility] [address] [address] [address] Talia Chambers nitrogen/Creatinine [Mass ratio]18.7 mg/mgNoSelect Medical [facility] Hospital, AvonCommymichigan medical center [facility] on above:Performed By: #### CBCANALI #### [facility] [address] [address] [address] Talia Ny 68-26-9858Kleimldsyho peptide B (Bld) [Mass/Vol]346.0 pg/mL Normal<=900.0The [facility] HospitalComment on above:Performed By: #### LILIAM #### [facility] [address] [address] [address] Talia Cedillo W MANUAL DIFFon 23-67-8584ATXGTNHL LYMPH #NormalThe [facility] HospitalComment on above:Performed By: #### LILIAM #### [facility] [address] [address] [address] Talia PickardYPICAL LYMPH %NormalThe [facility] HospitalComment on above: Performed By: #### LILIAM #### [facility] [address] [address] [address] Talia John #Normal0.0-0.3The [facility] HospitalComment on above: Performed By: #### LILIAM #### [facility] [address] [place] [address] Dr. Talia John %Normal0-5The [facility] HospitalComment on above:Performed By: #### LILIAM #### [facility] [address] [place] [address] Dr. Talia Wesley #0.00 103/ulNormal0.00-0.10The [facility] on above:Performed By: #### LILIAM #### [facility] [address] [address] [address] Talia Wesley %0.0 %Critically low0.2-2.0The [facility] HospitalComment on above:Performed By: #### LILIAM #### [facility] [address] [place] [address] Dr. Talia Hough #NormalFirelands Regional Medical CenterComment on above:Performed By: #### LILIAM #### [facility] [address] [place] [address] Dr. Talia Hough %NormalFirelands Regional Medical CenterComment on above:Performed By: #### LILIAM #### [facility] [address] [place] [address] Dr. Talia PlascenciaCORRECTED WBCNormal4.0-11.0The [facility] HospitalComment on above: Performed By: #### CBCANALI #### [facility] [address] [address] [address] Talia Bunch #0.00 103/ulNormal0.00-0.70The [facility] HospitalComment on above:Performed By: #### CBCANALI #### [facility] [address] [address] [address] Talia Bunch%0.0 %Critically low0.9-7.0The [facility] HospitalComment on above:Performed By: #### CBCANALI #### [facility] [address] [address] [address] Talia PlascenciaHCT45.5 %Dbuzvk67.0-54.0The [facility] HospitalComment on above: Performed By: #### CBCANALI #### [facility] [address] [address] [address] Talia PlascenciaHGB15.5 g/rwIeoqsa75.0-18.0The [facility] HospitalComment on above: Performed By: #### CBCANALI #### [facility] [address] [address] [address] Talia Chaparro #0.33 103/ulCritically low1.20-3.80The [facility] on above:Performed By: #### CBCANALI #### [facility] [address] [address] [address] Talia Chaparro%2.0 %Critically low20.5-60.0The [facility] HospitalComment on above:Performed By: #### CBCANALI #### [facility] [address] [address] [address] Talia PlascenciaMCH26.3 zsVfmfts16.9-34.0The [facility] HospitalComment on above: Performed By: #### CBCMAN #### [facility] [address] [address] [address] Talia GermanHC34.1 g/ljWbuwuv18.9-35.2The [facility] HospitalComment on above:Performed By: #### CBCMAN #### [facility] [address] [address] [address] Talia GermanV77.1 fLCritically low80.0-94.0The [facility] HospitalComment on above:Performed By: #### LILIAM #### [facility] [address] [address] [address] Talia AshfordOCYTE #NormalThe [facility] HospitalComment on above: Performed By: #### LILIAM #### [facility] [address] [place] [address] Dr. Talia AshfordOCYTE %NormalFirelands Regional Medical CenterComment on above: Performed By: #### LILIAM #### [facility] [address] [place] [address] Dr. Talia Pascual#1.00 103/ulCritically high0.30-0.80The [facility] on above:Performed By: #### LILIAM #### [facility] [address] [place] [address] Dr. Talia Pascual%6.0 %Normal1.7-12.0The [facility] HospitalComment on above: Performed By: #### LILIAM #### [facility] [address] [place] [address] Dr. Talia JonV10.9 fLNormal9.5-13.5The [facility] HospitalComment on above: Performed By: #### LILIAM #### [facility] [address] [place] [address] Dr. Talia Medina #NormalFirelands Regional Medical CenterComment on above:Performed By: #### LILIAM #### [facility] [address] [place] [address] Dr. Talia CrossOCYTE %NormalFirelands Regional Medical CenterComment on above:Performed By: #### LILIAM #### [facility] [address] [place] [address] Dr. Talia PlascenciaNRBCNormalThe [facility] HospitalComment on above:Performed By: #### LILIAM #### [facility] [address] [address] [address] Talia PlascenciaPLT177 103/wfBvbeat943-010Waz [facility] HospitalComment on above: Performed By: #### LILIAM #### [facility] [address] [place] [address] Dr. Talia PlascenciaRBC5.90 106/ulNormal4.70-6.10The [facility] HospitalComment on above:Performed By: #### LILIAM #### [facility] [address] [place] [address] Dr. Talia PlascenciaRDW14.6 %Yunumg44.0-15.0The [facility] HospitalComment on above: Performed By: #### LILIAM #### [facility] [address] [place] [address] Dr. Talia Alejandro #15.27 103/ulCritically high1.40-6.50[facility] Comment on above:Performed By: #### LILIAM #### [facility] [address] [place] [address] Dr. Talia Alejandro %92.0 %Critically high43.0-75.0The [facility] HospitalComment on above:Performed By: #### LILIAM #### [facility] [address] [place] [address] Dr. Talia PlascenciaWBC16.6 103/ulCritically high4.0-11.0The [facility] HospitalComment on above:Performed By: #### LILIAM #### [facility] [address] [place] [address] Dr. Talia Torres BLOODon 50-21-2514Lyzejcfmfoa examination of blood, cultureCulture Observations: NO GROWTH AT 5 DAYS.NormalThe [facility] HospitalComment on above:Performed By: #### CVDTB #### [facility] [address] [place] [address] Dr. Talia Banksd-19 PCR (CVDTB)on 73-61-8268UFHK-CoV-2 (COVID-19) RNA REKHA+probe Ql (Unsp spec)Not detectedNormalNOT DETECTEDThe [facility] Comment on above:Result Comment: When diagnostic [...] for this test is supported by the [place] of Health and Human Service's declaration that [...] longer be used).Performed By: #### CBCMAN #### [facility] [address] [place] [address] Dr. Talia PlascenciaLACTATE/LACTIC ACIDon 03-02-5600Qlsypih [Moles/Vol]1.2 mmol/L Normal0.4-1.9Fire[facility] Medical CenterComment on above:Performed By: #### INFLUAB #### [facility] [address] [place] [address] Dr. Talia PlascenciaPerformed By: #### POCGLUC #### [facility] [address] [place] [address] Dr. Talia Franco VENOUS BLOODon 99-53-1406TAK9 VTKQGZ60.1 mmHgCritically low 40.0-52.0The [facility] HospitalComment on above:Performed By: #### POCGLUC #### [facility] [address] [place] [address] Dr. Talia Franco VENOUS7.385Juiyoj5.330-7.430The [facility] HospitalComment on above:Performed By: #### POCGLUC #### [facility] [address] [place] [address] Dr. Talia PlascenciaPOINT OF CARE GLUCOSEon 25-08-4437Xguxmvt [Mass/Vol]154 mg/dL Critically vial37-865Kwv [facility] HospitalComment on above:Performed By: #### POCGLUC #### [facility] [address] [address] [address] Talia Ramirez 14(COMP METB)on 85-02-5734Lmnrsqk [Mass/Vol]3.7 g/dLNormal 3.4-5.0The [facility] HospitalComment on above:Performed By: #### CBCMAN #### [facility] [address] [address] [address] Talia PlascenciaAlbumin/Globulin [Mass ratio]0.9 {ratio}NormalThe [facility] HospitalComment on above:Performed By: #### CBCMAN #### [facility] [address] [place] [address] Dr. Talia BenitezP [Catalytic activity/Vol]72 U/DZibrmw42-710Bjd [facility] HospitalComment on above:Performed By: #### CBCMAN #### [facility] [address] [place] [address] Dr. Talia Cody [Catalytic activity/Vol]20 U/TXuiwmn06-93Ere [facility] HospitalComment on above:Performed By: #### CBCMAN #### [facility] [address] [place] [address] Dr. Talia Pérez gap [Moles/Vol]16.0 mmol/LNormalThe [facility] on above:Performed By: #### CBCMAN #### [facility] [address] [place] [address] Dr. Talia PlascenciaAST [Catalytic activity/Vol]29 U/MKugoqo85-16Znu [facility] HospitalComment on above:Performed By: #### CBCMAN #### [facility] [address] [address] [address] Talia PlascenciaBilirubin [Mass/Vol]1.5 mg/dLCritically high0.2-1.0The [facility] HospitalComment on above:Performed By: #### CBCMAN #### [facility] [address] [place] [address] Dr. Talia PlascenciaCalcium [Mass/Vol]8.7 mg/dLNormal8.5-10.1The [facility] Comment on above:Performed By: #### CBCANALI #### [facility] [address] [address] [address] Talia PlascenciaChloride [Moles/Vol]93 mmol/LCritically bwj89-211Vra [facility] HospitalComment on above:Performed By: #### CBCANALI #### [facility] [address] [address] [address] Talia PlascenciaCO2 [Moles/Vol]21.4 mmol/ONkdtie14.0-32.0The [facility] Comment on above:Performed By: #### LILIAM #### [facility] [address] [place] [address] Dr. Talia PlascenciaCreatinine [Mass/Vol]1.61 mg/dLCritically high0.70-1.30The [facility] HospitalComment on above:Performed By: #### LILIAM #### [facility] [address] [place] [address] Dr. Talia SchwabGFR-AF ANJTSLKA99 mL/min/1.59e2Thsedpkabl low>=60The [facility] HospitalComment on above:Performed By: #### LILIAM #### [facility] [address] [place] [address] Dr. Talia SchwabGFR-NON AF BRKCFFQR67 mL/min/1.42q8Hfjszrurlw low>=60The [facility] HospitalComment on above:Performed By: #### CBCANALI #### [facility] [address] [place] [address] Dr. Talia PlascenciaGlobulin (S) [Mass/Vol]3.9 g/dLNormalThe [facility] HospitalComment on above:Performed By: #### CBCANALI #### [facility] [address] [place] [address] Dr. Talia PlascenciaGlucose [Mass/Vol]182 mg/dLCritically ihdd27-997Exs [facility] HospitalComment on above:Performed By: #### CBCANALI #### [facility] [address] [place] [address] Dr. Talia PlascenciaPotassium [Moles/Vol]4.4 mmol/LNormal3.5-5.1The [facility] Comment on above:Performed By: #### LILIAM #### [facility] [address] [address] [address] Talia PlascenciaProtein [Mass/Vol]7.6 g/dLNormal6.4-8.2The [facility] Comment on above:Performed By: #### LILIAM #### [facility] [address] [place] [address] Dr. Talia PlascenciaSodium [Moles/Vol]126 mmol/LCritically hly823-274Opf [facility] HospitalComment on above:Performed By: #### LILIAM #### [facility] [address] [place] [address] Dr. Talia PlascenciaUrea nitrogen [Mass/Vol]30.0 mg/dLCritically high7.0-18.0The [facility] HospitalComment on above:Performed By: #### LILIAM #### [facility] [address] [place] [address] Dr. Talia Chambers nitrogen/Creatinine [Mass ratio]18.6 mg/mgNoSelect Medical Cleveland Clinic Rehabilitation Hospital, AvonComment on above:Performed By: #### LILIAM #### [facility] [address] [place] [address] Dr. Talia PlascenciaPROTIMEcorina 42-80-7677UDT Coag (PPP) [Relative time]1.08 {INR} NormalThe [facility] HospitalComment on above:Performed By: #### CVDTBH #### [facility] [address] [place] [address] Dr. Talia Morgan GUIDELINESSEE BELOWRegency Hospital ToledoComment on above:Result Comment: DESIRED INR: 2.0 - 3.0 CONDITIONS NOT LISTED BELOW 2.5 - 3.5 FOR PROSTHETIC HEART VALVE REPLACEMENT 2.5 - 3.5 RECURRENT THROMBOSIS Performed By: #### CVDTBH #### [facility] [address] [place] [address] Dr. Talia PlascenciaPT Coag (PPP) [Time]11.6 sNormal9.0-11.6The [facility] Comment on above:Performed By: #### CVDTBH #### [facility] [address] [place] [address] Dr. Talia Plata 64-30-4194wNWZ Coag (Bld) [Time]32.2 jGexcth93.3-36.2The [facility] HospitalComment on above:Performed By: #### CVDTBH #### [facility] [address] [place] [address] Dr. Talia Fraser, HIGH SENSITIVITYon 74-48-0605OGRUBP9.1 pg/mLNormal 4.0-76.1The [facility] HospitalComment on above:Result Comment: CUT-OFF POINTS HAVE BEEN ESTABLISHED BASED ON THE FOURTH UNIVERSAL DEFINITIONS OF MYOCARDIAL INFARCTION. THE UPPER REFERENCE LIMIT (URL) OF TROPONIN, DEFINED THE 99TH PERCENTILE OF cTnI DISTRIBUTION IN A REFERENCE POPULATION, HAS BEEN CONFIRMED THE DECISION THRESHOLD FOR MA DIAGNOSIS.Performed By: #### CBCMAN #### [facility] [address] [place] [address] Dr. Talia Fang YOAN DOP LEG RTon 34-24-7123RV YOAN DOP LEG RTEXAM: [place] YOAN DOP [...] Electronically authenticated by: TEVIN NAYAK Date: 2022-04-23 17:00[facility] ToledoECHOCARDIO M/2D COMPLETEon [id number] M/2D COMPLETE Patient: JOHNATHAN CORREA Exam Date: 04/15/2022 : 1960 Gender:M Ordering : DR LUIS JEFFREY M.D. Admission #: [id number] Family : Order #: [id number] CLICK HERE TO VIEW EXAM ECHOCARDIOGRAM REPORT [...] by: Zhao Galan M.D. on 04/15/2022 at 19:32[facility] ToledoBNPon 94-78-1276Cpvtsdefani peptide B (Bld) [Mass/Vol]43.0 pg/mLNormal <=900.0The [facility] on above:Performed By: #### BNP, CMP #### [facility] [address] [address] [address] Talia PlascenciaGLYCOHEMOGLOBIN A1Con 44-44-5926ZLA RECOMMENDATIONSEE BELOWNormal The [facility] on above:Result Comment: ADA RECOMMENDED LIMIT 4.0 - 6.0 ADA THERAPEUTIC TARGET < 7.0 ACTION SUGGESTED > 7.0Performed By: #### A1C #### [facility] [address] [address] [address] Talia PlascenciaGlucose [Mass/Vol]203 mg/dLNormalThe [facility] HospitalComment on above:Performed By: #### A1C #### [facility] [address] [place] [address] Dr. Talia OrnelasA1c (Bld) [Mass fraction]8.7 %Critically high4.5-6.2The [facility] HospitalComment on above:Performed By: #### A1C #### [facility] [address] [place] [address] Dr. Talia PlascenciaPROF 14(COMP METB)on 51-67-1589Cqdvhar [Mass/Vol]3.9 g/dLNormal 3.4-5.0The [facility] HospitalComment on above:Performed By: #### BNP, CMP #### [facility] [address] [place] [address] Dr. Talia PlascenciaAlbumin/Globulin [Mass ratio]1.1 {ratio}NormalThe [facility] HospitalComment on above:Performed By: #### BNP, CMP #### [facility] [address] [place] [address] Dr. Talia Myers [Catalytic activity/Vol]74 U/WBqttph60-683Pnu [facility] HospitalComment on above:Performed By: #### BNP, CMP #### [facility] [address] [place] [address] Dr. Talia Cody [Catalytic activity/Vol]30 U/NEmavar99-81Aur [facility] HospitalComment on above:Performed By: #### BNP, CMP #### [facility] [address] [place] [address] Dr. Talia Pérez gap [Moles/Vol]12.2 mmol/LNormalThe [facility] Comment on above:Performed By: #### BNP, CMP #### [facility] [address] [place] [address] Dr. Talia Mireles [Catalytic activity/Vol]32 U/VXpmrga26-90Aro [facility] HospitalComment on above:Performed By: #### BNP, CMP #### [facility] [address] [place] [address] Dr. Yilan ChangBilirubin [Mass/Vol]0.8 mg/dLNormal0.2-1.0The [facility] Comment on above:Performed By: #### BNP, CMP #### [facility] [address] [address] [address] Talia PlascenciaCalcium [Mass/Vol]8.7 mg/dLNormal8.5-10.1[facility] Comment on above:Performed By: #### BNP, CMP #### [facility] [address] [address] [address] Talia PlascenciaChloride [Moles/Vol]98 mmol/HTplpqv40-976Ctx [facility] Comment on above:Performed By: #### BNP, CMP #### [facility] [address] [place] [address] Dr. Talia PlascenciaCO2 [Moles/Vol]27.5 mmol/KMsiyko63.0-32.0[facility] Comment on above:Performed By: #### BNP, CMP #### [facility] [address] [place] [address] Dr. Talia PlascenciaCreatinine [Mass/Vol]1.33 mg/dLCritically high0.70-1.30The [facility] HospitalComment on above:Performed By: #### BNP, CMP #### [facility] [address] [place] [address] Dr. Talia SchwabGFR-AF MALAGASY>60Normal>=60The [facility] HospitalComment on above:Performed By: #### BNP, CMP #### [facility] [address] [place] [address] Dr. Talia SchwabGFR-NON AF IYWXZYXU18 mL/min/1.98h2Uojvqzxbcj low>=60The [facility] HospitalComment on above:Performed By: #### BNP, CMP #### [facility] [address] [place] [address] Dr. Talia PlascenciaGlobulin (S) [Mass/Vol]3.6 g/dLNormalThe [facility] HospitalComment on above:Performed By: #### BNP, CMP #### [facility] [address] [address] [address] Talia PlascenciaGlucose [Mass/Vol]233 mg/dLCritically elzo50-323Wsp [facility] HospitalComment on above:Performed By: #### BNP, CMP #### [facility] [address] [address] [address] Talia PlascenciaPotassium [Moles/Vol]4.7 mmol/LNormal3.5-5.1The [facility] Comment on above:Performed By: #### BNP, CMP #### [facility] [address] [place] [address] Dr. Talia PlascenciaProtein [Mass/Vol]7.5 g/dLNormal6.4-8.2The [facility] Comment on above:Performed By: #### BNP, CMP #### [facility] [address] [address] [address] Talia PlascenciaSodium [Moles/Vol]133 mmol/LCritically wzw820-111Cxf [facility] HospitalComment on above:Performed By: #### BNP, CMP #### [facility] [address] [address] [address] Talia PlascenciaUrea nitrogen [Mass/Vol]22.0 mg/dLCritically high7.0-18.0The [facility] HospitalComment on above:Performed By: #### BNP, CMP #### [facility] [address] [place] [address] Dr. Talia PlascenciaUrea nitrogen/Creatinine [Mass ratio]16.5 mg/mgNormalThe [facility] HospitalComment on above:Performed By: #### BNP, CMP #### [facility] [address] [place] [address] Dr. Talia Cody (SGPT)on 72-34-0985IQA enzyme act/vol15 U/XPwyvcv82-35VPD HealthcareComment on above:Performed By: #### [id number] ####[facility] [address] [place], [place] [address]BMQ (SGOT)on 07-14-2018 AST enzyme act/vol23 U/QKecfmt14-52BLU HealthcareComment on above:Performed By: #### [id number] ####[facility] Zrh[address] [facility] [place], [place] [address]Ufnxdaneaajf 77-63-9132Mhlogrbqhe mass conc1.07 mg/dLNormal 0.50-1.30EMH HealthcareComment on above:Performed By: #### [id number] ####[facility] Ngh[address] [place] [address] GFR/1.73 sq M.predicted MDRD vol rate/areamL/min/{1.73_m2}NormalEMH Healthcare Comment on above:Result Comment: Interpretation for Chronic Kidney Disease:Stages 1&2 >60 Healthy or potential kidney damage.Mild decrease of GFR.Stage 3 30-59 Moderate decrease of GFR.Stage 4 15-29 Severe decrease of GFR.Stage 5 <15 Kidney failure or on dialysis.Performed By: #### [id number] ####[facility] Itn[address] [place] [address] Electrolyte Panelon 50-35-6819Nkqsz gap 3 molar conc10 mmol/VDobuzz42-94XOV HealthcareComment on above:Performed By: #### [id number] ####[facility] Ehs[address] [place], [place] [address]Bvqllves molar conc99 mmol/NDlqgex96-404RUL HealthcareComment on above:Performed By: #### [id number] ####[facility] Xxd[address] [place] [address] HCO3 molar conc (Bld)32 mmol/CVkanvn14-35VZN HealthcareComment on above: Performed By: #### [id number] ####[facility] Fao[address] [facility], [place] [address]Awodwaper molar conc4.5 mmol/LNormal3.5-5.1EMH HealthcareComment on above:Performed By: #### [id number] ####[facility] Ins[address] [place], [place] [address]Naktes molar tomn727 mmol/WZlwiye130-928EKD HealthcareComment on above:Performed By: #### [id number] ####[facility] Pid[address] [place] [address] Lipid Panelon 12-98-6173Pvpwppajqmk in HDL mass conc34 mg/dLAbnormalEMH HealthcareComment on above:Result Comment: Normal Mod Risk High Risk5-9 >48 42- 48 <4210-14 >45 40-45 <4015-19 >38 34-38 <34Adult >39Performed By: #### [id number] ####[facility] Eng[address] [place] [address] Cholesterol in LDL mass conc98 mg/dLNormal<130EMH HealthcareComment on above: Performed By: #### [id number] ####[facility] Tmp[address] [facility], [place] [address]Xcowvgjcptw in VLDL mass conc21 mg/dLNormal<30EMH HealthcareComment on above:Performed By: #### [id number] ####[facility] Wse[address] [facility], [place] [address]Hlwyjdxgbgv mass jedv866 mg/dLNormal<200EMH HealthcareComment on above:Performed By: #### [id number] ####[facility] Ddv[address] [place] [address] Cholesterol.total/Cholesterol in HDL mass ratio4.5 {ratio}NormalEMH Healthcare Comment on above:Performed By: #### [id number] ####[facility] Tfa[address] [facility], [place] [address]Njvgzoczdwsk mass enab207 mg/dL Normal<150EMH HealthcareComment on above:Result Comment: 150-199 Borderline Jfvl316-099 High>500 Very HighPerformed By: #### [id number] ####[facility] Xpn[address] [facility], [place] [address]Mzyi Nitrogenon 16-77-7960Ozbg nitrogen mass conc16 mg/dLNormal6-23EMH HealthcareComment on above:Performed By: #### [id number] ####[facility] Jbp[address] [place] [address] Vital Signs Date TimeVital SignValuePerforming QqicpqpgyCwearjdv08-52-3285 14:28-0500Body cmVinod Proctor HEREDITARY CANCER PROGRAM COORDINATOR-WIRE CHARGER Work Phone: [phone] [place], [place] [address]5211-10-2025 14:28-0500 Body mass index (BMI) [Ratio]51.09 kg/g7MachcVinod Proctor HEREDITARY CANCER PROGRAM COORDINATOR-WIRE CHARGER Work Phone: [phone]11-10-2025 14:28-0500 Body emxfwb769.68 kgVinod Proctor HEREDITARY CANCER PROGRAM COORDINATOR-WIRE CHARGER Work Phone: [phone])[address]11-10-2025 14:28-0500 Diastolic blood iwhbyxme68 mm[Hg]Vinod Proctor HEREDITARY CANCER PROGRAM COORDINATOR-WIRE CHARGER Work Phone: [phone]11-10-2025 14:28-0500 Heart rate76 /minDernestina Proctor HEREDITARY CANCER PROGRAM COORDINATOR-WIRE CHARGER Work Phone: [phone] [place], [place] 875[address]11-10-2025 14:28-0500 Systolic blood mm[Hg]Vinod Proctor HEREDITARY CANCER PROGRAM COORDINATOR-WIRE CHARGER Work Phone: [phone]10-28-2025 09:26-0400 Body tljvxa817.45 cmLuis Jeffrey MD Work Phone: [phone]10-28-2025 09:26-0400 Body mass index (BMI) [Ratio]52.6 kg/q9CefjyhLuis Jeffrey MD Work Phone: [phone]10-28-2025 09:26-0400 Body pyxtey872.67 kgLius Jeffrey MD Work Phone: [phone]10-28-2025 09:26-0400 Diastolic blood oggmxmpx89 mm[Hg]Luis Jeffrey MD Work Phone: [phone]10-28-2025 09:26-0400 Heart rate80 /minLuis Jeffrey MD Work Phone: [phone]10-28-2025 09:26-0400 Systolic blood xspqcrat193 mm[Hg]Luis Jeffrey MD Work Phone: [facility]03-17-2025 09:19-0400 Body jrqdle290.45 cmFair[facility] Center03-17-2025 09:19-0400Body mass index (BMI) [Ratio]49.7 kg/f7FyenptlvhFairfield Medical Center03-17-2025 09:19-0400Body bgebbi519.17 kgFairfield Medical Center03-17-2025 09:19-0400Diastolic blood frpnteii08 mm[Hg][facility] 11-20-2024 09:19-0400Heart rate69 /[facility] 11-20-2024 09:19-0400Respiratory rate12 /[facility] 11-20-2024 09:19-6386JjX2% (BldA) [Mass fraction]96 %[facility]03-17-2025 09:19-0400Systolic blood egfmhiyi112 mm[Hg][facility]02-20-2025 09:15-0500Blood Pressure LocationKathy Lue [facility]02-20-2025 09:15-0500Diastolic blood rifucdzj50 mm[Hg]Lety Lue [facility]02-20-2025 09:15-0500Heart rate74 /minKathy Lue [facility]02-20-2025 09:15-0500Systolic blood hfeidsax847 mm[Hg]Lety Lue [facility] [place] 398681-22-2024 11:26-0500Body yzpupejtqig01.7 [degF]Vaibhav Slater MD Work Phone: [facility] Mfnfmq83-39-3288 11:26-0500Diastolic blood mm[Hg]Vaibhav Slater MD Work Phone: [facility]11-22-2024 11:26-0500Heart rate 76 /Celestina Slater MD Work Phone: [phone]-[facility]11-22-2024 11:26-0500 Respiratory rate18 /Celestina Slater MD Work Phone: [phone]-[facility]11-22-2024 11:26-8092UnK5% (BldA) [Mass fraction]94 %Vaibhav Slater MD Work Phone: [facility]11-22-2024 11:26-0500Systolic blood jtqodlsm798 mm[Hg]Vaibhav Slater MD Work Phone: [facility]11-20-2024 05:00-0500Body mass index (BMI) [Ratio]49.74 kg/t0MqlbqaoVaibhav Slater MD Work Phone: [phone] [place], [place] 4987611-20-2024 05:00-0500Body iifama127.06 kgVaibhav Slater MD Work Phone: [phone]-[facility]11-18-2024 03:20-0500Body msemnk420.2 cmVaibhav Slater MD Work Phone: [facility]11-07-2024 10:59-0500Body .2 cmGray Cancino DPM Work Phone: [facility] ServicesGuzzqwvmem96-24-6523 10:59-0500Body mass index (BMI) [Ratio]51.69 kg/g9AjvoinbfGray Cancino DPM Work Phone: [place] [address]Dwiebtkzuv76-09-9258 10:59-0500Body uejjpn243.69 kgGray Cancino DPM Work Phone: [facility] ServicesPpscktpaxh27-95-9169 10:59-0500Diastolic blood ktcsbpoc50 mm[Hg]Gray Cancino DPM Work Phone: [place] [address]Lbjheglxuj79-17-4513 10:59-0500Heart rate86 /min Gray Cancino DPM Work Phone: [phone] [place] [address]-07-2024 10:59-0500Systolic blood xcmzepkk958 mm[Hg]Gray Cancino DPM Work Phone: [phone] [place], [place] 9893210-31-2024 11:16-0400Body xtumhl838.2 cmGray Cancino DPM Work Phone: [phone] [place], [place] 6450310-31-2024 11:16-0400Body mass index (BMI) [Ratio]51.69 kg/j5CxckipfcGray Cancino DPM Work Phone: [phone])[address] [place] [address]-31-2024 11:16-0400Body jhovru456.69 kgGray Cancino DPM Work Phone: [phone])[address] [place] [address]-31-2024 11:16-0400Diastolic blood dfhmewgz34 mm[Hg]Gray Cancino DPM Work Phone: [phone] [place] [address]-31-2024 11:16-0400Heart rate82 /min Gray Cancino DPM Work Phone: [phone] [place] [address]-31-2024 11:16-0400Systolic blood hrdumdfa244 mm[Hg]Gray Cancino DPM Work Phone: 1(527)[address] [place], [place] 6450310-24-2024 10:52-0400Body smlghi682.2 cmGray Cancino DPM Work Phone: [phone] [place] [address]-24-2024 10:52-0400Body mass index (BMI) [Ratio]51.69 kg/r0MkukidowGray Cancino DPM Work Phone: [phone])[address] [place] [address]-24-2024 10:52-0400Body oplzix284.69 kgGray Cancino DPM Work Phone: [phone])[facility] [place] [address]-24-2024 10:52-0400Diastolic blood mm[Hg]Gray Cancino DPM Work Phone: [phone] [place], [place] [address]8724-2024 10:52-0400Heart rate88 /min Gray Cancino DPM Work Phone: [facility] ServicesSfqfxctbkz99-83-9006 10:52-0400Systolic blood axcdicws288 mm[Hg]Gray Cancino DPM Work Phone: [facility] ServicesTptacfioll37-31-3453 13:46-0400Body .2 cmGray Cancino DPM Work Phone: [phone] [place], [place] [address]Ikmftquvtl84-34-1778 13:46-0400Body mass index (BMI) [Ratio]51.69 kg/i0Rafrkpyfmartha Cancino DPM Work Phone: [phone])[address]10-10-2024 13:46-0400Body owddqj918.69 kgGray Cancino DPM Work Phone: [facility] ServicesCuudffqrwp08-71-6891 13:46-0400Respiratory rate18 /minGray Cancino DPM Work Phone: 1(771)3-[address] [place], [place] [address]Httxxcznnh11-55-9476 07:52-0400Body xygllt909.45 cmFair[facility]10-09-2024 07:52-0400Body mass index (BMI) [Ratio]49.6 kg/g8BlehlhfmqFairfield Medical Center10-09-2024 07:52-0400Body .77 kgFairfield Medical Center10-09-2024 07:52-0400Diastolic blood imnlrvdy35 mm[Hg][facility]10-09-2024 07:52-0400 Heart rate85 /[facility]10-09-2024 07:52-0400 Respiratory rate18 /[facility]10-09-2024 07:52-0400 SaO2% (BldA) [Mass fraction]96 %[facility]10-09-2024 07:52-0400Systolic blood adreyjbh110 mm[Hg][facility] 06-08-2024 08:34-0400Body xmkcei348.2 cmJefmartha Cancino DPM Work Phone: 1(441)133-[address] [place], [place] [address]Bbzwzknybg45-12-4789 08:34-0400Body mass index (BMI) [Ratio]51.69 kg/t2DjgvklgwGray Cancino DPM Work Phone: 1(433)923-[address] [place] [address]-03-2024 08:34-0400Body klykpu771.69 kgGray Cancino DPM Work Phone: [facility] ServicesEciagwivlf44-61-4713 08:34-0400Diastolic blood qgvwejjd96 mm[Hg]Gray Cancino DPM Work Phone: 1(218)[facility] [place] [address]-03-2024 08:34-0400Heart rate74 /min Gray Cancino DPM Work Phone: 1(690)[facility] [place] [address]-03-2024 08:34-0400Respiratory rate18 /minGray Cancino DPM Work Phone: 1(118)980-[address] [place] [address]-03-2024 08:34-0400Systolic blood vofvkzzs430 mm[Hg]Gray Cancino DPM Work Phone: 1(471)4-[address] [place], [place] [address]Pqvcvdedft72-90-1289 08:44-0400Body tnihnv234.2 cmGray Cancino DPM Work Phone: 1(891)701-[address] [place] [address]-26-2024 08:44-0400Body mass index (BMI) [Ratio]51.69 kg/d0DoprpcyfGray Cancino DPM Work Phone: 1(415)3-[address] [place] [address]-26-2024 08:44-0400Body qgjsla289.69 kgGray Cancino DPM Work Phone: 1(377)[facility] [place] [address]-26-2024 08:44-0400Diastolic blood clxhdpta80 mm[Hg]Gray Cancino DPM Work Phone: 1(962)941-[address] [place] [address]-26-2024 08:44-0400Heart rate75 /min Gray Cancino DPM Work Phone: 1(306)092-[address] [place], [place] [address]Ekvmjbkfnv97-61-3599 08:44-0400Respiratory rate18 /minGray Cancino DPM Work Phone: 1(942)396-[address] [place] [address]-26-2024 08:44-0400Systolic blood uqckowwm942 mm[Hg]Gray Cancino DPM Work Phone: [place] [address]Rtwbqngxmk36-24-3041 11:05-0400Body ixzeyu269.2 cmGray Cancino DPM Work Phone: [place] [address]Ilrlcwypwo94-75-8659 11:05-0400Body mass index (BMI) [Ratio]51.69 kg/g3LhqoontqGray Cancino DPM Work Phone: 1(950)960-[address] [place] [address]-19-2024 11:05-0400Body bhbgqo468.69 kgGray Cancino DPM Work Phone: 1(015)940-[address] [place] [address]-19-2024 11:05-0400Diastolic blood mm[Hg]Gray Cancino DPM Work Phone: 1(726)807-[address] [place] [address]-19-2024 11:05-0400Heart rate75 /min Gray Cancino DPM Work Phone: 1(957)152-[address] [place] [address]-19-2024 11:05-0400Respiratory rate17 /minGray Brayan DPM Work Phone: 1(601)741-[address] [place] [address]-19-2024 11:05-0400Systolic blood iofqetws090 mm[Hg]Gray Cancino DPM Work Phone: 1(474)318-[address] [place] [address]-12-2024 10:03-0400Body vdvosp435.2 cmGray Cancino DPM Work Phone: 1(948)591-[address] [place] [address]-12-2024 10:03-0400Body mass index (BMI) [Ratio]51.69 kg/d2GtenzkebGray Cancino DPM Work Phone: 1(798)678-[address] [place] [address]-12-2024 10:03-0400Body lpbuxw152.69 kgGray Cancino DPM Work Phone: [place] [address]Damgikcsww86-70-5635 10:03-0400Diastolic blood mm[Hg]Gray Cancino DPM Work Phone: 1(447)918-[address] [place] [address]-12-2024 10:03-0400Heart rate77 /min Gray Cancino DPM Work Phone: [facility] ServicesCzqgdivdre43-62-7056 10:03-0400Systolic blood whekaoxu088 mm[Hg]Gray Cancino DPM Work Phone: [facility] ServicesFliqqkgjxx06-10-1273 10:16-0400Body ffygzg266.2 cmMercedesdonis Cancino DPM Work Phone: 1(062)921-[address] [place], [place] [address]Auneesyklg02-96-2311 10:16-0400Body mass index (BMI) [Ratio]51.69 kg/s8Cnwrkcfs Brown DPM Work Phone: 1(104)055-[address] [place] [address]-05-2024 10:16-0400Body foetch635.69 kgMercedesdonis Cancino DPM Work Phone: [place] [address]Bgcilqpqmg35-70-4052 10:16-0400Diastolic blood kodvdana10 mm[Hg]Gray Brayan DPM Work Phone: 1(588)047-[address] [place] [address]-05-2024 10:16-0400Heart rate78 /min Gray Cancino DPM Work Phone: 1(534)449-[address] [place] [address]-05-2024 10:16-0400Respiratory rate19 /minJefmartha Cancino DPM Work Phone: [place] [address]Ryrvzxepci80-68-6124 10:16-0400Systolic blood zurtfola015 mm[Hg]Gray Brayan DPM Work Phone: 1(815)196-[address] [place], [place] [address]Eglyrqygnx24-65-8930 10:29-0400Body ibpgyj223.2 cmMercedesdonis Cancino DPM Work Phone: 1(268)237-[address] [place] [address]-29-2024 10:29-0400Body mass index (BMI) [Ratio]51.69 kg/n4Hehtotef Brown DPM Work Phone: [facility] ServicesQhbmvfpdhd47-46-3325 10:29-0400Body kvpoiw904.69 kgMercedesdonis Cancino DPM Work Phone: 1(700)379-[address] [place] [address]-29-2024 10:29-0400Diastolic blood lytsguwq37 mm[Hg]Graydena Cancino DPM Work Phone: [facility] ServicesZplxhwkubr91-15-5408 10:29-0400Heart rate85 /min Gray Cancino DPM Work Phone: [facility] ServicesTxzpxijpqy91-82-9870 10:29-0400Systolic blood lqjnorzs920 mm[Hg]Gray Cancino DPM Work Phone: [facility] ServicesPaoswobhnd54-39-7782 11:15-0400Body efjymi901.45 cmFair[facility]08-26-2024 11:15-0400Body mass index (BMI) [Ratio]51.4 kg/u2HhufpsvcoFairfield Medical Center08-26-2024 11:15-0400Body swbvuq830.07 kgFairfield Medical Center08-26-2024 11:15-0400Diastolic blood xnkeirjw45 mm[Hg][facility]08-26-2024 11:15-0400 Heart rate77 /[facility]08-26-2024 11:15-0400 Respiratory rate18 /[facility]08-26-2024 11:15-0400 SaO2% (BldA) [Mass fraction]95 %[facility]08-26-2024 11:15-0400Systolic blood igywdspr740 mm[Hg][facility] 03-08-2024 08:08-0400Blood Pressure LocationKathy Lue [facility]07-03-2024 08:08-0400Diastolic blood uiesixjl05 mm[Hg]Lety Lue [facility]07-03-2024 08:08-0400Heart rate70 /minKathy Lue [facility]07-03-2024 08:08-0400Respiratory rate16 /minKathy Lue [facility]07-03-2024 08:08-0400Systolic blood arfvxicf600 mm[Hg]Lety Lue [facility]06-19-2024 11:41-0400Body ewkmeu143.45 cmFairfield [facility] Center06-19-2024 11:41-0400Body mass index (BMI) [Ratio]50.1 kg/v3NbvtdhqfmFairfield Medical Center06-19-2024 11:41-0400Body ajtphq983.[address] [facility]06-19-2024 11:41-0400Diastolic blood vxlfdabn48 mm[Hg] [facility]06-19-2024 11:41-0400Heart rate75 /[facility]06-19-2024 11:41-0400Systolic blood zbmtiqvu028 mm[Hg] [facility]03-26-2024 08:52-0400Body tamxbn305.45 cm [facility]03-26-2024 08:52-0400Body mass index (BMI) [Ratio]50.1 kg/q1LnhhxvflgFairfield Medical Center03-26-2024 08:52-0400Body xaiqym150.[address] [facility]03-26-2024 08:52-0400Diastolic blood qnxnmcma33 mm[Hg][facility]03-26-2024 08:52-0400 Heart rate76 /[facility]03-26-2024 08:52-0400Systolic blood kecnxgja763 mm[Hg][facility]01-10-2024 08:05-0500 Blood Pressure LocationKathy Lue [facility]01-10-2024 08:05-0500Diastolic blood mm[Hg]Lety Lue [facility]01-10-2024 08:05-0500Heart rate75 /minKathy Lue [facility]01-10-2024 08:05-0500Systolic blood mm[Hg]Lety Lue [facility]12-01-2023 09:45-0500Body wxyudt730.45 cmLuis Jeffrey Other [employer] Other 722723-22-7067 09:45-0500Body mass index (BMI) [Ratio] 48.51 kg/o6KayfuzLuis Jeffrey Other [employer] Other 522653-74-5265 09:45-0500Body hltmro482.61 kgLuis Jeffrey Other [employer] Other 140424-18-1053 09:45-0500Diastolic blood xkcbihdv69 mm[Hg] Luis Jeffrey Other [employer] Other 12-01-2023 09:45-0500Systolic blood knvzofhw214 mm[Hg] Luis Jeffrey Other [employer] Other 06-28-2023 09:30-0400Blood Pressure LocationKathy Lue [facility]06-28-2023 09:30-0400Diastolic blood oyxzscuo24 mm[Hg]Lety Lue [facility]06-28-2023 09:30-0400Heart rate74 /minKathy Lue [facility]06-28-2023 09:30-0400Respiratory rate16 /minKathy Lue [facility]06-28-2023 09:30-0400Systolic blood pwubcxyn060 mm[Hg]Lety Gonzalez [facility]04-18-2023 09:53-0400Body .99 cmLuis Jeffrey Work Phone: [phone]-Qpzei [facility] 250 DO Work Phone: 1(197) 581-957204-18-2023 09:53-0400Body mass index (BMI) [Ratio]46.9 kg/o9UaocnwLuis Jeffrey Work Phone: mp430-3621YE-Bhtnv [facility] 250 DO Work Phone: 1(812) 835-434304-18-2023 09:53-0400Body surface area Derived from formula2.49 n0DxhrmxLuis Jeffrey Work Phone: mp518-7211FL-Wsczw [facility] 250 DO Work Phone: 1(693) 592-426204-18-2023 09:53-0400Body xllnxo868.98 kgLuis Jeffrey Work Phone: [phone]-Jbbfx [facility] [address] DO Work Phone: 1(796) 839-817204-18-2023 09:53-0400Diastolic blood mm[Hg] Luis Jeffrey Work Phone: mp884-7520BT-Niqre [facility] 250 DO Work Phone: 1(318) 435-635504-18-2023 09:53-0400Heart rate74 /minLuis Jeffrey Work Phone: mp181-5789NX-Vvmku [facility] 250 DO Work Phone: 1(579) 785-316904-18-2023 09:53-0400Systolic blood yqlpvnjd347 mm[Hg] Luis Jeffrey Work Phone: mp364-4617SB-Rskrn [facility] 250 DO Work Phone: 1(605) 569-152204-05-2023 09:45-0400Body evccbq994.45 cmLuis Wojciech Other [employer] Other 04-05-2023 09:45-0400Body mass index (BMI) [Ratio] 47.52 kg/s2Uxnisd Wojciech Other [employer] Other 04-05-2023 09:45-0400Body rtgevs177.71 kgLuis Wojciech Other [facility] [employer] Other 04-05-2023 09:45-0400Diastolic blood nwjevrxz02 mm[Hg] Luis Jeffrey Other [employer] Other 04-05-2023 09:45-7256GbF8% (BldA) [Mass fraction]97 % Luis Jeffrey Other [employer] Other 04-05-2023 09:45-0400Systolic blood xllersmy252 mm[Hg] Luis Jeffrey Other [facility] [employer] Other 03-22-2023 10:15-0400Blood Pressure LocationKathy Lue [facility]03-22-2023 10:15-0400Diastolic blood urdlyxoj93 mm[Hg]Lety Lue [facility]03-22-2023 10:15-0400Heart rate76 /minKathy Lue [facility]03-22-2023 10:15-0400Respiratory rate16 /minKathy Lue [facility]03-22-2023 10:15-0400Systolic blood fmewpaov324 mm[Hg]Lety Lue [facility]12-14-2022 07:54-0500Blood Pressure LocationKathy Lue [facility]12-14-2022 07:54-0500Diastolic blood acdbtpet42 mm[Hg]Lety Lue [facility]12-14-2022 07:54-0500Heart rate82 /minKathy Lue [facility]12-14-2022 07:54-0500Systolic blood cufxjuax009 mm[Hg]Lety Lue [facility] Encounters Encounter DateEncounter TypeCare ProviderFacilityStart: 55-91-3835zwmpbjeljx Lety Scott LueFacility:[facility]tart: 46-34-6695vwtxmakfjiWzvbf M. Lue [facility]art: 07-16-2025 End: 89-07-3768Vuayyl outpatient visit 25 [facility] hospitalVinod Proctor HEREDITARY CANCER PROGRAM COORDINATOR-WIRE CHARGER Work Phone: uh FirelandsComment on above:Atherosclerosis of [place] coronary artery [place] heart without angina pectoris (Primary Dx); Essential hypertension; Mixed hyperlipidemia; Type 2 diabetes mellitus without complication, without long-term current use of insulin (Multi); Obstructive sleep apnea; Acute combined systolic and diastolic heart failure (Multi); BMI 50.0-59.9, adult (Multi)Start: 07-16-2025 End: 29-33-3322wgmuvqvoyiUIWWC K [facility] AmbulatoryStart: 07-[facility]2025 End: 53-26-0998vodpgxmeinIlabx M. LueFacility: BellueStart: 07-11-2025 End: 33-57-2748Vwlmzky encounter procedureLety Gonzalez [facility] start: 07-03-2025 End: 91-52-2713aluiyylqeiZijool E Braun MD Work Phone: -[facility]art: 07-03-2025 End: 80-68-0821Aufhizq encounter procedureLuis Jeffrey MD-[facility] Work Phone: Start: 06-27-2025 End: 05-87-1334hkagkvmqmiZrhwp M. LueFacility:EU evueStart: 06-27-2025 End: 78-05-4444Hipdbgw encounter procedureKatchandan Gonzalez [facility] start: 06-13-2025 End: 87-09-2996hgyfzxgpbtMipyx M. LueFacility:EU evueStart: 06-13-2025 End: 58-04-0525Burgldr encounter procedureKatchandan Gonzalez [facility] start: 05-30-2025 End: 59-28-2876encfabrufjQdvod M. LueFacility:EU evueStart: 05-30-2025 End: 61-66-3841Gkgbspf encounter procedureKatchandan JonhAbhinav Vitalreddy [facility] start: 05-16-2025 End: 04-49-6684fvmxhdnompVtluygi R WATERSFacility:EU evueStart: 05-16-2025 End: 40-12-2534Auysayo encounter procedureGurwinder SILVEIRA [facility] start: 05-02-2025 End: 47-92-6609qxlpugvhylMzdgr M. LueFacility:EU BellevueStart: 05-02-2025 End: 12-98-7949Pfkfhik encounter procedureSammiechandan Gonzalez [facility] dINK start: 04-25-2025 End: 12-24-5094dgdetebluiRtedy M. LueFacility:FTMCStart: 04-25-2025 End: 48-28-1937Pooonxx encounter procedureLety Gonzalez [facility] dINK start: 04-18-2025 End: 80-67-3816vzvzxbarfrXisde M. LueFacility:EU BellevueStart: 04-18-2025 End: 71-28-5028Sbvblvb encounter procedureSammiechandan Gonzalez [facility] dINK start: 04-04-2025 End: 00-67-8813mpkorfhctaOcbrd M. LueFacility:EU BellevueStart: 04-04-2025 End: 79-95-2213Ppdufpq encounter procedureLety Gonzalez [facility] dINK start: 03-21-2025 End: 33-55-5308gajbgecwznUadvf M. LueFacility:EU BellevueStart: 03-21-2025 End: 37-29-3622Kbhkrjh encounter procedureSammiechandan BorjaAbhinav Carlos [facility] dINK start: 03-07-2025 End: 40-13-0459lvzdtppgpgUmvlu M. LueFacility:EU BellevueStart: 03-07-2025 End: 76-39-2801Cbhgatu encounter procedureSammiechandan Gonzalez [facility] dINK start: 02-21-2025 End: 27-25-5750rbozlofgbyQapmc M. LueFacility:EU BellevueStart: 02-21-2025 End: 31-50-6408Vqspwqe encounter procedureLety Gonzalez [facility] dINK start: 02-14-2025 End: 28-52-0536zndmtuaeqmCveqjk TannaFacility:EU BellevueStart: 02-14-2025 End: 77-95-6061Roxueio encounter procedureDo Whalen [facility] dINK start: 01-31-2025 End: 11-39-1193gcxezzlyjtIizaxi TannaFacility:EU BellevueStart: 01-31-2025 End: 29-55-7865Vzktknb encounter procedureDo Whalen [facility] dINK start: 01-17-2025 End: 87-98-6914sxkurlgvhvCwzkty TannaFacility:EU BellevueStart: 01-17-2025 End: 17-85-4473Avrvcbv encounter procedureLalima Whalen [facility] start: 01-03-2025 End: 68-93-6541cfnguedifhRamclb TannaFacility:EU BellevueStart: 12-21-2024 End: 16-59-7592kpngdhqyzcGsiei M. LueFacility:EU NorwalkStart: 12-20-2024 End: 75-68-4694rztrypbccoCsfmj M. LueFacility:EU BellevueStart: 12-06-2024 End: 79-63-9843mcxqhjutddQoqkxl TannaFacility:EU BellevueStart: 11-22-2024 End: 38-87-4044npemdslgnyEydtr M. LueFacility:EU BellevueStart: 11-20-2024 End: 60-42-6200czgpujjftgOthpjcjocFirelands Regional Medical Center Work Phone: Start: 11-20-2024 End: 15-56-2960Taczhou encounter procedureAtrium Health [facility] Phys[facility] GroupUC [facility] Work Phone: Start: 11-08-2024 End: 62-67-0738hwawuljjfoPyxhc M. LueFacility:EU BellevueStart: 11-08-2024 End: 12-31-5349Zhnmxxq encounter procedureLety Gonzalez [facility] start: 10-27-2024 End: 10-56-1307yfmftjkpmeRkafl M. LueFacility:EU [place]kyStart: 10-27-2024 End: 56-88-4460Emckdkr encounter procedureKatchandan Vitale [facility] Start: 10-26-2024 End: 32-29-8720oimennvsmzCpxkg M. LueFacility:EU [place]walkStart: 10-26-2024 End: 71-77-2651Easkuvv encounter procedureKathy Jonh. Zahraae [facility] Start: 10-18-2024 End: 38-22-2956jbtokcidadBmhcx M. LueFacility:FTMCStart: 10-18-2024 End: 74-95-8560Xbb Drop offLety Borja. Zahraae [facility] Start: 10-18-2024 End: 52-28-3781jnpcnegkybPeuia M. LueFacility:EU BellevueStart: 10-18-2024 End: 44-19-5744Rbsboyn encounter procedureKatchandan Vitale [facility] start: 10-11-2024 End: 48-94-7502bzyeywfcdxXorlo M. LueFacility:EU BellevueStart: 10-11-2024 End: 49-67-5822Wjmlyig encounter procedureKatchandan Vitale [facility] start: 09-20-2024 End: 98-73-9642samvcxshlwIjfyd M. LueFacility:EU BellevueStart: 09-20-2024 End: 74-88-7234Ablcoxx encounter procedureKathy Tyler Lue [facility] start: 09-13-2024 End: 16-99-4355Nko Drop offLety Borja. Zahraae [facility] Start: 09-13-2024 End: 62-89-2024ukehpdszhyTwkct M. LueFacility:FTMCStart: 09-13-2024 End: 43-85-4350Oswrjfi encounter procedureKathy M. Lue [facility] start: 09-07-2024 End: 67-31-6012gppgqtlfujRgvdt M. LueFacility:EU BellevueStart: 09-07-2024 End: 46-75-1259Fynckaf encounter procedureKathy M. Lue [facility] start: 08-23-2024 End: 94-34-3477dyayclibcxBprkr JonhAbhinav LueFacility:EU BellevueStart: 08-23-2024 End: 28-24-5142Yewtpve encounter procedureLety JonhAbhinav Vitalreddy [facility] start: 86-80-4440ajgrorgapoBrmdt JonhAbhinav LueFacility:EU BellevueStart: 83-51-0562orwdiuvhjsPuzmi M. LueFacility:EU [facility] HospitalueStart: 10-65-4577brbkaoyjrcTRYEJHOlympic Memorial Hospital Ambulatory PPGStart: 07-24-2024 End: 40-08-8018Ebipyjrrk encounterSharon [facility] Call CenterComment on above:Consult (Small bowel obstruction)Start: 07-24-2024 End: 71-72-6051Ddjvwbjron and management of inpatientSiris Rodriguez MD Work Phone: [facility] Division of [facility] - CARD Tele/IntermediateComment on above:JAM (obstructive sleep apnea) (Primary Dx); Small bowel obstruction (CMS-HCC); Primary hypertensionStart: 93-95-6636wcxgboctydGEPRBMOlympic Memorial Hospital Ambulatory PPGStart: 05-68-4716izwfsqjpqnXKFCPFOlympic Memorial Hospital Ambulatory PPGStart: 07-13-2024 End: 61-11-6205Nlcjbx Pako Cancino DPM Work Phone: noMS CI PODIATRYStart: 07-13-2024 End: 16-65-9942Fpflke Pako Cancino DPM Work Phone: noms CI PODIATRYStart: 07-13-2024 End: 30-16-0173Dszyak follow up visit related to original pxNicholas A Brown DPM Work Phone: noms CI PODIATRYComment on above:Diabetes 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 polyneuropathy, unspecified whether group home insulin use (CMS/HCC) (Primary Dx); Foot ulcer, right, with fat layer exposed (CMS/HCC); Foot ulcer, left, with fat layer exposed (CMS/HCC)Start: 07-13-2024 End: 58-76-1337fvkkgqkqzjTNAPTHPD A BROWNNot AvailableStart: 07-12-2024 End: 38-57-1625msbxrfcrgdNfskw M. LueFacility:EU BellevueStart: 07-12-2024 End: 01-71-3355Zaddhnz encounter Christopher Gonzalez [facility] start: 07-06-2024 End: 01-64-3032Zwlqut flowsheetNicholas A Brown DPM Work Phone: noms CI PODIATRYStart: 07-06-2024 End: 95-08-9574Esmbqs flowsheetNicholas A Brown DPM Work Phone: noms CI PODIATRYStart: 07-06-2024 End: 61-07-4254Qrjtoct encounter procedureNicholas A Brown DPM Work Phone: noms CI PODIATRYComment on above:Diabetes 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 polyneuropathy, unspecified whether group home insulin use (CMS/HCC) (Primary Dx); Foot ulcer, right, with fat layer exposed (CMS/HCC)Start: 07-06-2024 End: 58-48-1894lteeubdvfaJFGFTLYS A BROWNNot AvailableStart: 06-29-2024 End: 78-83-7302Wgmjam flowsheetNicholas A Brown DPM Work Phone: noMS CI PODIATRYStart: 06-29-2024 End: 54-63-8846Vdozgs flowsheetNicholas A Brown DPM Work Phone: NOMS CI PODIATRYStart: 06-29-2024 End: 67-47-5965Ihdkzoa encounter Nash Cancino DPM Work Phone: noms CI PODIATRYComment on above:Diabetes 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 polyneuropathy, unspecified whether group home insulin use (CMS/HCC) (Primary Dx); Foot ulcer, right, with fat layer exposed (CMS/HCC)Start: 06-29-2024 End: 46-10-1686acrxmkxffhYKMORWDY A BROWNNot AvailableStart: 06-28-2024 End: 69-25-3987owfnlqfkqyDajfl M. LueFacility:EU BellevueStart: 06-28-2024 End: 61-78-6049Hensobi encounter Christopher Gonzalez [facility] start: 06-15-2024 End: 82-44-1740Wrfmfb flowsFrancois Cancino DPM Work Phone: noms CI PODIATRYStart: 06-15-2024 End: 57-75-5821Lsluyf Pako Cancino DPM Work Phone: noms CI PODIATRYStart: 06-15-2024 End: 63-42-2211Xsdbwv outpatient visit 25 minutesGray Cancino DPM Work Phone: noms CI PODIATRYComment on above:Diabetes 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 polyneuropathy, 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 terminal 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 (CMS/HCC) (Primary Dx); Foot ulcer, right, with fat layer exposed (CMS/HCC); Foot ulcer, left, with fat layer exposed (CMS/HCC); PVD (peripheral vascular disease) (CMS/HCC)Start: 06-15-2024 End: 56-55-1396hhdpvmoideZCQJQOFF A BROWNNot AvailableStart: 06-14-2024 End: 31-73-8743deaelgsgsiRckow MThe [facility] Hospital Work Phone: Start: 06-14-2024 End: 86-30-4360Sryjerg encounter procedureAtrium Health [facility] Work Phone: Start: 06-08-2024 End: 13-41-8586Gypruh flowsandersonNicmartha A Brown DPM Work Phone: noms CI PODIATRYStart: 06-08-2024 End: 25-40-5517Ksexhz flowsheetNicholas A Brown DPM Work Phone: noms CI PODIATRYStart: 06-08-2024 End: 11-71-1738Tmvtfk outpatient visit 15 minutesNicmartha Blankenship Brown DPM Work Phone: noms CI PODIATRYComment on above:Foot ulcer, left, with fat layer exposed (CMS/HCC) (Primary Dx); Diabetes 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 polyneuropathy, unspecified whether group home insulin use (CMS/HCC); Foot ulcer, right, with fat layer exposed (CMS/HCC)Start: 06-08-2024 End: 79-38-4561iducfexovvTJNEELCY Krzysztof BROWNNot AvailableStart: 06-01-2024 End: 26-87-8037Plgkqb flowsheetNicholas A Brown DPM Work Phone: noms CI PODIATRYStart: 06-01-2024 End: 59-90-5724Pxbzzl flowsheetNicholas A Brown DPM Work Phone: noms CI PODIATRYStart: 06-01-2024 End: 40-87-6323Kbtjrg outpatient visit 10 minutesNicholdonis Blankenship Brown DPM Work Phone: noms CI PODIATRYComment on above:Diabetes 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 polyneuropathy, unspecified whether group home insulin use (CMS/HCC) (Primary Dx); Foot ulcer, right, with fat layer exposed (CMS/HCC); PVD (peripheral vascular disease) (CMS/HCC); Xerosis cutisStart: 06-01-2024 End: 87-68-6475whqoymcpydRSTHKJBB A BROWNNot AvailableStart: 05-31-2024 End: 00-90-4016bgroelzucsYiovz M. LueFacility:EU BellevueStart: 05-31-2024 End: 44-38-0217Gctplfm encounter Christopher Gonzalez [facility] start: 05-25-2024 End: 70-54-2688Cltbnj flowsheetGray Cancino DPM Work Phone: noms CI PODIATRYStart: 05-25-2024 End: 40-94-3114Oqwgwk flowsheetNicmartha Cancino DPM Work Phone: noms CI PODIATRYStart: 05-25-2024 End: 01-40-5630Yknnwbr encounter procedureGray Cancino DPM Work Phone: noms CI PODIATRYComment on above:Diabetes 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 polyneuropathy, unspecified whether group home insulin use ([facility]/HCC) (Primary Dx); Foot ulcer, right, with fat layer exposed ([facility]); PVD (peripheral vascular disease) ([facility])Start: 05-25-2024 End: 04-38-0097gvnolpvglxLPVDPOPC A BROWNNot AvailableStart: 05-18-2024 End: 34-57-2311Tmdwrt outpatient visit 15 minutesNicmartha Cancino DPM Work Phone: noms CI PODIATRYComment on above:Xerosis cutis (Primary Dx); Skin fissure; Diabetes 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 polyneuropathy, 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 terminal 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 ([facility]/HCC); Foot ulcer, right, with fat layer exposed (CMS/HCC); PVD (peripheral vascular disease) ([facility]/HCC)Start: 05-18-2024 End: 67-40-6077mznyashhreDGNKWKGA A BROWNNot AvailableStart: 05-17-2024 End: 70-14-9210wwjurvdedrUkgbq M. LueFacility:EU BellevueStart: 05-17-2024 End: 87-85-7917Ztxmybm encounter procedureLety Gonzalez [facility] start: 05-11-2024 End: 08-14-3644Cpkkhp outpatient visit 15 minutesNicmartha A Brown DPM Work Phone: noms CI PODIATRYComment on above:Xerosis cutis (Primary Dx); Skin fissure; PVD (peripheral vascular disease) (CMS/HCC); Diabetes 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 polyneuropathy, 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 terminal 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 (CMS/HCC); Foot ulcer, right, with fat layer exposed (CMS/HCC)Start: 05-11-2024 End: 26-33-8406vpdhxdvzypVPPOISHN A BROWNNot AvailableStart: 05-04-2024 End: 45-58-9485Fgdmgs flowsheetNicholas A Brown DPM Work Phone: noms CI PODIATRYStart: 05-04-2024 End: 84-48-5462Zyjvbt flowsheetNicholas A Brown DPM Work Phone: noms CI PODIATRYStart: 05-04-2024 End: 21-40-6927Vffndj outpatient new 30 minutesNicholas A Brown DPM Work Phone: noms CI PODIATRYComment on above:Foot ulcer, right, with fat layer exposed ([facility]/HCC) (Primary Dx); Xerosis cutis; Skin fissure; Diabetes 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 polyneuropathy, unspecified whether group home insulin use (CMS/HCC); PVD (peripheral vascular disease) (CMS/HCC)Start: 05-04-2024 End: 37-94-9667zkzwxodshaVEOUXXXR A BROWNNot AvailableStart: 05-02-2024 End: 29-59-8400ayxcfdaczxRxuaq M. LueFacility:PAO BellevueStart: 05-02-2024 End: 79-01-5812Kpqmlqt encounter procedureLety Gonzalez [facility] start: 05-01-2024 End: 87-61-4536hyqtcmdcnxTtrvddyetFirelands Regional Medical Center Work Phone: Start: 05-01-2024 End: 79-41-0801Guwarep encounter procedureAt[facility] Work Phone: Start: 04-19-2024 End: 29-90-1881utpikvvhcsObfns M. LueFacility:EU BellevueStart: 04-19-2024 End: 88-83-2906Invxulg encounter procedureLety Gonzalez [facility] start: 04-17-2024 End: 14-68-8798jjikljpmcfIntdyxserThe [facility] Hospital Work Phone: Start: 04-17-2024 End: 48-26-7935Bhpckyj encounter procedureAt[facility] Health [facility] Work Phone: Start: 04-05-2024 End: 20-46-2330rkcuntcviaKoxuo M. LueFacility:EU BellevueStart: 04-05-2024 End: 61-88-6746Fpourwx encounter procedureLety Gonzalez [facility] start: 03-22-2024 End: 33-61-2021wcyrhybyhlXaplc Jonh. LueFacility:EU BellevueStart: 03-22-2024 End: 78-85-6574Szjmwqs encounter procedureKatchandan Vitale [facility] start: 03-08-2024 End: 51-46-3560xvfvbybsowQfzcg Jonh. LueFacility:EU BellevueStart: 03-08-2024 End: 53-06-2132Yyzjkdd encounter procedureLety Gonzalez [facility] start: 03-01-2024 End: 93-81-1120Ipn Drop offLUIS JEFFREY [facility] Start: 43-75-3756Dsv-patient / Non-visitAtrium Health [facility] Phys[facility] GroupKenmore Hospital Work Phone: Start: 03-01-2024 End: 33-13-6836Vkv Drop offLety Gonzalez [facility] Start: 03-01-2024 End: 12-12-7208kwtezycbbaUPROWX BRAUNFacility:FTMCStart: 03-01-2024 End: 25-36-9525Fuxvxoi encounter procedureLety Gonzalez [facility] start: 02-23-2024 End: 82-45-9059jooeunfmhgZyanbwwqaThe [facility] Hospital Work Phone: Start: 02-23-2024 End: 95-78-7088Zbjbike encounter procedureAt[facility] Health [facility] Physician GroupUC [facility] Work Phone: Start: 02-23-2024 End: 74-64-0426wegpshvufnChbgd M. LueFacility:EU BellevueStart: 02-23-2024 End: 56-65-4820Nzkymqn encounter procedureLety Gonzalez [facility] start: 02-09-2024 End: 64-83-8222nobeclnmqjHXParis MARQUEZFacility:EU ueStart: 02-09-2024 End: 22-48-4448Hlhbhqm encounter procedureJENNIFER E JIMMY [facility] dINK start: 01-25-2024 End: 08-72-6564mhvvgmzusdLP-C JEMIMA Blakely PERRYFacility:EU ueStart: 01-25-2024 End: 00-03-2540Yebedrx encounter procedureJENNIFER E JIMMY [facility] dINK start: 01-11-2024 End: 76-84-3097sretjwuufdIX-C JEMIMA Blakely PERRYFacility:EU tart: 01-11-2024 End: 32-91-1069Punabyx encounter procedureJENNIFER E JIMMY [facility] dINK start: 12-28-2023 End: 24-53-3644ihfzdegveiXG-C JEMIMA Blakely PERRYFacility:EU tart: 12-28-2023 End: 29-34-8711Ijcvnvn encounter procedureJENNIFER E JIMMY [facility] dINK start: 12-14-2023 End: 53-55-5377qvmwnsqivaKI-C JEMIMA Blakely PERRYFacility:EU ueStart: 12-14-2023 End: 23-73-9445Irojdbt encounter procedureJENNIFER E JIMMY [facility] HospitalScil [facility] start: 76-20-9757Aeo-patient / Non-visitAtrium Health [facility] Physician GroupSt. [facility] Work Phone: Start: 11-30-2023 End: 69-51-9200lciietkrlaHF-C JEMIMA Reddy [facility] Work Phone: Start: 11-30-2023 End: 41-72-8700Trfeahj encounter procedureAugustus [facility]ician [facility] Work Phone: Start: 71-45-0750Pov-patient / Non-visitEveraugusta health [facility]ician [facility] Work Phone: Start: 11-16-2023 End: 72-81-6266wstntyrpplCemby M. LueFacility:EU BellevueStart: 11-16-2023 End: 16-75-6692Qkpcwre encounter procedureLety Gonzalez [facility] start: 11-03-2023 End: 92-23-5205wumpcqxjthKqmtt M. LueFacility:EU BellevueStart: 11-03-2023 End: 05-75-8533Yfqppaj encounter procedureLety Gonzalez [facility] start: 10-20-2023 End: 02-32-9052mxmbtdliayHukot M. LueFacility:EU BellevueStart: 10-20-2023 End: 81-61-4077Fybspsn encounter procedureKatchandan Vitale [facility] start: 09-29-2023 End: 64-58-9195amvpfupzqaOoppe M. LueFacility:EU BellevueStart: 09-29-2023 End: 65-93-4059Qqtpoza encounter procedureKatchandan Gonzalez [facility] start: 09-15-2023 End: 55-37-4282aorrfealatJsmev Jonh. LueFacility:EU BellevueStart: 09-15-2023 End: 26-67-3240Kfsaqus encounter procedureKathy Jonh. Lureddy [facility] start: 09-08-2023 End: 87-28-6058Rpy Drop offKatchandan Borja. Carlos [facility] Start: 09-08-2023 End: 95-27-9240umfywlafdpNzhdj M. LueFacility:FTMCStart: 09-08-2023 End: 99-75-7520Besdska encounter procedureKatchandan Borja. Carlos [facility] start: 09-01-2023 End: 88-68-2865pphajysguvIqlzi M. LueFacility:EU ueStart: 09-01-2023 End: 30-18-5625Zvdyysh encounter procedureKatchandan Borja. Lureddy [facility] start: 08-26-2023 End: 46-68-6114ehsilarggxVgexkb Braun Other nort Blueseed Other Start: 79-34-8155Zewotjbtj encounterLuis Jeffrey [facility] ClinicStart: 08-09-2023 End: 36-96-3234ecptaqbvhtFkbhud Braun Other [facility] Blueseed Other Start: 12-78-0034Xauuwqndn encounterLuis JeffreyMount St. [facility] ClinicStart: 08-06-2023 End: 45-79-8545fknluuppcxLzslyk Braun Other [facility] Blueseed Other Start: 60-95-5302Fmwanc outpatient visit 25 minutes Luis JeffreyMiguel Angel [facility] Irvingtart: 08-04-2023 End: 85-41-2117laufbbsuxoKgmvc M. LueFacility:EU BellevueStart: 08-04-2023 End: 92-56-4614Zwonrsa encounter procedureKathy M. Lue [facility] start: 07-21-2023 End: 65-89-6290gscyvthnwpVbksw M. LueFacility:EU BellevueStart: 07-21-2023 End: 45-27-5220Jjspbhj encounter procedureKathy M. Lue [facility] start: 07-07-2023 End: 65-82-5076sgznecgkxrEelwn M. LueFacility:EU BellevueStart: 07-07-2023 End: 09-71-0492Aalcqia encounter procedureKathy M. Lue [facility] start: 06-23-2023 End: 98-15-1705gnnwigtarcGyagn M. LueFacility:EU BellevueStart: 06-23-2023 End: 39-35-9133Ndphhbx encounter procedureKathy M. Lue [facility] start: 06-09-2023 End: 98-18-3679anlxxuzgydOfkot M. LueFacility:EU BellevueStart: 06-02-2023 End: 90-66-7203srrzmbtnwaOdehz M. LueFacility:EU BellevueStart: 05-26-2023 End: 06-38-0516kzbjypsyhfIiztv M. LueFacility:EU BellevueStart: 05-26-2023 End: 12-98-5052Hlbuata encounter procedureKathy M. Lue [facility] start: 05-12-2023 End: 48-58-9588cwsfatdjpdPzzfq M. LueFacility:EU BellevueStart: 05-12-2023 End: 34-88-2733Tooouck encounter procedureKathy M. Lue [facility] start: 04-28-2023 End: 19-07-7834mjzpwhsjxzRckmm M. LueFacility:EU BellevueStart: 04-28-2023 End: 65-66-1427Fvtjutr encounter procedureKathy Jonh. Lue [facility] start: 04-14-2023 End: 65-01-0511emljpfkjqkUlxqr M. LueFacility:EU BellevueStart: 04-14-2023 End: 19-51-0452Qnvlwyb encounter procedureKathy Jonh. Lue [facility] start: 03-31-2023 End: 60-64-6258irvzjlzpcxTdclp M. LueFacility:EU BellevueStart: 03-31-2023 End: 85-19-4545Bsboxjb encounter procedureKathy M. Lue [facility] start: 03-29-2023 End: 37-98-7519aehlvoxhcvOpouym Braun Other [place] Other Start: 91-16-8621Rtpvhdszb encounterMarcia Yaz [facility] ClinicStart: 35-85-4621Ybdkbgjqs encounterMarcia Yaz [facility] ClinicStart: 03-17-2023 End: 35-74-8123ekmkcgdoznRmufs M. ZahraaAshwinlee[facility] summit hospital Blueseed Other Start: 03-17-2023 End: 63-05-6138Zfudawb encounter procedureKatchandan Gonzalez [facility] start: 03-03-2023 End: 30-87-3439Zacflvy encounter procedureKatchandan Gonzalez [facility] start: 02-24-2023 End: 00-72-5194Xhj Drop offLety Borja. Carlos [facility] Start: 02-24-2023 End: 23-85-6235Ouorlvo encounter procedureLety Gonzalez [facility] start: 02-22-2023 End: 37-93-3336sfruuokgopJucoza Wojciech Other [facility] Blues[employer] Other Start: 70-05-2519Wjmvpifbu encounterMarkathleena Yaz [facility] ClinicStart: 02-17-2023 End: 41-80-3192Kkixunh encounter procedureJENNIFER E JIMMY [facility] start: 02-03-2023 End: 20-75-4426Arumrux encounter procedureJENNSHABNAM MARQUEZ [facility] start: 01-07-2023 End: 42-93-7733nogzkbdhiyUzjipc Braun Other [facility] [employer] Other Start: 54-81-4082Uxvnxedqm encounterLuis Mukherjee [facility] ClinicStart: 01-06-2023 End: 81-77-0123Gfzxcbj encounter procedureLety Gonzalez [facility] start: 12-23-2022 End: 08-26-3756Xujbwvw encounter procedureLety Gonzalez [facility] start: 30-75-3477Utlkfc outpatient visit 15 minutes Luis Jeffrey Work Phone: [phone]-RmwfkAllina Health [facility] 250 DO Work Phone: Start: 15-92-4637npcmujvvdpWwwopws [place] Facility:[id number]: 12-17-2022 End: 26-08-9214phidsczgzwFM LUIS JEFFREYFacility:T7Lczlw: 12-09-2022 End: 65-05-6194edorxyxjlqUahjny Braun Other [facility] [employer] Other Start: 62-86-4593Lfsjzc outpatient visit 15 minutes Luis Mukherjee [facility] ClinicStart: 12-09-2022 End: 47-63-9324Biywtnr encounter procedureLety Gonzalez [facility] start: 11-25-2022 End: 41-52-5229Nyljwji encounter procedureKatchandan Gonzalez [facility] start: 11-20-2022 End: 38-22-7860Xmz Drop offGurwinder SILVEIRA [facility] Start: 11-20-2022 End: 64-60-7571Bqzzvij encounter procedureKatchandan Gonzalez [facility] start: 11-18-2022 End: 43-51-5843Tbq Drop offLety Gonzalez [facility] Start: 11-18-2022 End: 79-96-5485Zddboyl encounter procedureKatchandan Gonzalez [facility] start: 11-11-2022 End: 21-04-8769Vogdtmy encounter procedureLety Gonzalez [facility] start: 10-28-2022 End: 92-18-2294Nprtozm encounter procedureJENNIFER E JIMMY [facility] start: 81-37-0107twbqzotmemBuswqtn [place] Facility:[address]Kotbx: 10-13-2022 End: 99-54-7906Mwoutht encounter procedureJENNIFER E JIMMY [facility] start: 09-29-2022 End: 21-97-4164Dxkfgxs encounter procedureJECATINA MARQUEZ [facility] dINK start: 09-16-2022 End: 66-88-9895Xqtapqf encounter procedureLety JonhAbhinav Carlos [facility] dINK start: 09-09-2022 End: 31-85-6797Ipdwmtc encounter procedureLety JonhAbhinav Zahraareddy [facility] dINK start: 09-02-2022 End: 05-63-4926Bnjchdm encounter procedureLety Scott Carlos [facility] dINK start: 08-19-2022 End: 49-08-0663Abuivsw encounter procedureLety Scott Carlos [facility] dINK start: 90-25-8556Fh Derrelljoe Deluca DO Work Phone: [phone]-NjopiAll[facility] 250 DO Work Phone: Start: 08-04-2022 End: 49-92-5435vmfwwejprmLB SURJIT MARKER .Facility:E4Jxfsk: 81-78-2726Tuhto health examinationMarcorwin Jeffrey Other [facility] [employer] Other Start: 78-43-3808Ymfzbco, abnormal examinationMarcikrzysztof Jeffrey Other [facility] [employer] Other Start: 07-29-2022 End: 96-62-8988jqnvvwjrpzTW LUIS JEFFREYFacility:D7Bzlkh: 07-08-2022 End: 00-86-7818Hgqzmcx encounter procedureJENNIFER E JIMMY [facility] start: 34-76-7202Fn RenewalWidouglas Yosi DO Work Phone: [phone]-Ppqif [facility] 250 DO Work Phone: Start: 06-10-2022 End: 03-43-9040Mpkugnl encounter procedureLety Gonzalez [facility] start: 12-47-7210Dl RenewalGabino Yosi DO Work Phone: [phone]-Pdlbz [facility] 250 DO Work Phone: Start: 05-13-2022 End: 55-66-6971diufpveshmAL MARCIA E BRAUNFacility:T1Ihwdm: 57-56-3040Ds Renewal Vinod Proctor HEREDITARY CANCER PROGRAM COORDINATOR-WIRE CHARGER Work Phone: [phone]-Ickwn [facility] 250 DO Work Phone: Start: 04-23-2022 End: 85-27-5491sfsqczhcvzQN CLAY EWING .Facility:M1Tarif: 04-15-2022 End: 65-17-7048joiekajknwLTDougie JEFFREYFacility:P7Worvg: 03-31-2022 End: 95-01-6408Ggekpdw encounter Andre Proctor Jr. [facility] start: 03-03-2022 End: 07-98-4600Idxajgg encounter Andre Proctor Jr. [facility] start: 02-20-2022 End: 35-28-5767liwghnkynnKJ LUIS Reddy WOJCIECHFacility:R2Vxhwd: 02-03-2022 End: 98-35-7568Qeuczkv encounter procedureVenkat Proctor Jr. [facility] start: 01-12-2022 End: 63-13-4096bayktiyxvpMVUBU D HIGHLANDERFacility:T9Ddoki: 01-06-2022 End: 60-18-1863Mutintt encounter procedureVenkat Proctor Jr. [facility] start: 12-09-2021 End: 82-50-5422Xtbeilr encounter procedureVenkat Proctor Jr. [facility] start: 60-33-0086Yihxqmx encounter procedurePROVIDER UNKNOWNFacility:1532 Procedures DateProcedureProcedure DetailPerforming ClinicianStart: 82-46-8341Henc bld gluc mntr dev cleared fda spec home Rosalina Rodriguez MD Work Phone: Start: 07-28-2024 End: 73-38-3945Wsjwz of magnesiumSiris Rodriguez MD Work Phone: Start: 17-46-4655Eubrorcimcqpn metabolic panelEmmett Sauer PA-C Work Phone: Start: 55-98-3377Uugr bld gluc mntr dev cleared fda spec home Rosalina Rodriguez MD Work Phone: Start: 72-09-8176Ytrtnjqyythcv metabolic panelEmmett Sauer PA-C Work Phone: Start: 71-08-7439Tpmd bld gluc mntr dev cleared fda spec home Rosalina Rodriguez MD Work Phone: Start: 84-88-6228Kqvo bld gluc mntr dev cleared fda spec home useSiris Rodriguez MD Work Phone: Start: 35-19-8853Rzry bld gluc mntr dev cleared fda spec home Rosalina Rodriguez MD Work Phone: Start: 44-73-2105Gsnfl of lactateAdrienne Rodrgiuez MD Work Phone: Start: 12-41-3868Ajby bld gluc mntr dev cleared fda spec home useSiris Rodriguez MD Work Phone: Start: 39-63-4191Mlxhd dip stick/tablet rgnt auto w/o microscopyMadison Niko Mayfield HEREDITARY CANCER PROGRAM COORDINATOR-WIRE CHARGER Work Phone: Start: 13-16-7206Nyyl bld gluc mntr dev cleared fda spec home useSiris Rodriguez MD Work Phone: Start: 07-26-2024 End: 30-05-8993Vmdgovfxndbsi metabolic panelEmmett SAAVEDRA-Bee Work Phone: Start: 49-01-7493Uylu bld gluc mntr dev cleared fda spec home Rosalina Rodriguez MD Work Phone: Start: 71-17-8963Hlidqqtypu exam abdomen 1 Benita Gage MD Work Phone: Start: 07-25-2024 End: 29-23-4003Pkwdjhhtnobim metabolic panelEmmett SAAVEDRA-Bee Work Phone: Start: 50-96-4528Zmib bld gluc mntr dev cleared fda spec home Rosalina Rodriguez MD Work Phone: Start: 05-11-4969Dhrzr of magnesiumAdrienne Rodriguez MD Work Phone: Start: 56-64-2070Jaoj bld gluc mntr dev cleared fda spec home useSiris Rodriguez MD Work Phone: Start: 59-72-2277Nxx routine ecg w/least 12 lds trcg only w/o i&rMadison Niko Mayfield HEREDITARY CANCER PROGRAM COORDINATOR-WIRE CHARGER Work Phone: Start: 24-94-6128Eofamymhjq exam abdomen 1 viewAnalisa Ward DO Work Phone: Start: 26-12-0862Gkiq bld gluc mntr dev cleared fda spec home useSiris Rodriguez MD Work Phone: Start: 69-39-2952Ckblp metabolic panel calcium total Analisa Ward DO Work Phone: Start: 49-26-4723Xczqtlc function panelAnalisa Ward DO Work Phone: Start: 08-98-8813Iqomyrz of percutaneous transluminal coronary angioplastyHistory of PTCADomartia Hitesh HEREDITARY CANCER PROGRAM COORDINATOR-WIRE CHARGER Work Phone: Start: 58-57-5081Rohwmrrtb for malignant neoplasm of prostateLuis Jeffrey Other Start: 95-33-0719Xzruaxe examination of patientLuis Jeffrey Other Aortic stent [...] Plan of Treatment DateCare ActivityDetailAuthorStart: 01-15-2026 End: 21-01-9212Mwyljpc encounter raphyogdz78/12/2026 10:30 AM EDT Office Visit [facility] [address] [facility] [address] [place] [phone] Gabino Deluca DO [address] [facility] [address] [place] [address] [facility]: 15-92-1238JYWDZ-19 Vaccine ( season)COVID-19 Vaccine ( season)[facility]: 65-48-9549Rhwtepxne vaccinationInfluenza Vaccine (#1)[facility]: 07-13-2024 End: 88-02-8634Yffnisk encounter procedureNOMS CI PODIATRYComment on above: Diabetes 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 polyneuropathy, unspecified whether group home insulin use (CMS/HCC) (Primary Dx); Foot ulcer, right, with fat layer exposed (CMS/HCC); Foot ulcer, left, with fat layer exposed (CMS/HCC)Start: 07-06-2024 End: 79-40-6006Ugfngrr encounter procedureNOMS CI PODIATRYComment on above: Diabetes 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 polyneuropathy, 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 terminal 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 (CMS/HCC) (Primary Dx); Foot ulcer, right, with fat layer exposed (CMS/HCC)Start: 06-29-2024 End: 70-55-7618Vtwtszj encounter owomhpheo60/24/2024 11:20 AM EDT Office Visit [facility] [address] [place] [address] Gray Cancino DPM [address] [facility] [address] [place] [address] Diabetes 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 polyneuropathy, 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 terminal 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 (CMS/HCC) (Primary Dx); Foot ulcer, right, with fat layer exposed (CMS/HCC); Foot ulcer, left, with fat layer exposed (CMS/HCC)[facility] CI PODIATRYComment on above:Diabetes 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 polyneuropathy, unspecified whether group home insulin use (CMS/HCC) (Primary Dx); Foot ulcer, right, with fat layer exposed (CMS/HCC); Foot ulcer, left, with fat layer exposed (CMS/HCC)Start: 06-15-2024 End: 75-62-4328Fbwlhdk encounter znutowhoy04/10/2024 1:50 PM EDT Office Visit [facility] [address] [phone] Gray Cancino DPM [address] [address] Diabetes 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 polyneuropathy, 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 terminal 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 (CMS/HCC) (Primary Dx); Foot ulcer, right, with fat layer exposed (CMS/HCC); Foot ulcer, left, with fat layer exposed (CMS/HCC); PVD (peripheral vascular disease) (CMS/HCC)N[facility]S CI PODIATRYComment on above:Diabetes 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 polyneuropathy, 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 terminal 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 (CMS/HCC) (Primary Dx); Foot ulcer, right, with fat layer exposed (CMS/HCC); Foot ulcer, left, with fat layer exposed (CMS/HCC); PVD (peripheral vascular disease) (CMS/HCC)Start: 06-15-2024 End: 01-19-8868Hnppcym encounter copureemp94/10/2024 8:50 AM EDT Office Visit [facility] [address] [phone] Gray Cancino DPM [address] [address] [facility] PODIATRYStart: 06-08-2024 End: 95-16-0606Phmmnwr encounter procedureNOMS CI PODIATRYComment on above: Diabetes 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 polyneuropathy, 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 terminal 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 (CMS/HCC) (Primary Dx); Foot ulcer, right, with fat layer exposed (CMS/HCC)Start: 06-01-2024 End: 79-16-9206Pbyrqol encounter rsgdrowfa22/26/2024 9:00 AM EDT [facility] [address] [facility] [address] [place] [phone] Gray Cancino, JAIME [address] [address] Diabetes 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 polyneuropathy, 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 terminal 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 (CMS/HCC) (Primary Dx); Foot ulcer, right, with fat layer exposed (CMS/HCC); PVD (peripheral vascular disease) (CMS/HCC)[facility] CI PODIATRYComment on above:Diabetes 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 polyneuropathy, 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 terminal 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 (CMS/HCC) (Primary Dx); Foot ulcer, right, with fat layer exposed (CMS/HCC); PVD (peripheral vascular disease) (CMS/HCC)Start: 05-25-2024 End: 90-95-7039Slkdlai encounter procedureNOMS CI PODIATRYComment on above: Diabetes 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 polyneuropathy, 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 terminal 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 (CMS/HCC) (Primary Dx); Foot ulcer, right, with fat layer exposed (CMS/HCC); PVD (peripheral vascular disease) (CMS/HCC)Start: 05-18-2024 End: 72-95-0280Cwnafbm encounter hrbbhupzs18/12/2024 10:00 AM EDT [facility] Visit [facility] [address] [facility] [address] [place] [phone] Gray Cancino DPM [address] [address] [facility] CI PODIATRYStart: 05-11-2024 End: 84-59-9275Pfdclgs encounter hmugtgjll01/05/2024 10:10 AM EDT Office Visit [facility] [address] [facility] [address] [place] [address] Gray Cancino, DPM [address] [address] [facility] CI PODIATRYStart: 28-07-3967Meszkdddv vaccination Influenza Vaccine (#1)[facility] HealthcareStart: 05-04-2024 End: 51-44-9287Vrdcecb encounter ivllgrolt02/29/2024 10:20 AM EDT Office Visit [facility] [address] [facility] [address] [place] [address] Gray Cancino, TAYLERM [address] [address] ArrivedNOMS CI PODIATRYComment on above:ArrivedStart: 12-73-1725Nwfczui [facility] Work Phone: Start: 80-58-6014Sgbchnt [facility] Work Phone: Start: 43-89-0504LBQ, Provider: Vinod Ku, Status: Pen, Time: 10:00 AMFUV, Provider: Vinod Ku, Status: Pen, Time: 10:00 [facility] 250 DO Work Phone: Start: 86-42-4088Gzzvcse [facility] Work Phone: Start: 88-79-4846JBN, Provider: Gabino Deluca, Status: Pen, Time: 9:30 AMFUV, Provider: Gabino Deluca, Status: Pen, Time: 9:30 AM[facility] 250 DO Work Phone: Start: 76-74-6229GRD, Provider: Gabino Deluca, Status: Mckinley, Time: 10:30 AMFUV, Provider: Gabino Deluca, Status: Mckinley, Time: 10:30 AMRainy Lake Medical CenterKathy 250 DO Work Phone: Start: 53-37-9121Cxwozlfi specific antigen measurement PSA Prostate Cancer ScreeningUnMetroHealth Parma Medical Center: 2010 RSV High Risk: (Elderly (60+) or Population) (1 - Risk 50-74 years 1- dose series)RSV High Risk: (Elderly (60+) or Population) (1 - Risk 50- 74 years 1-dose series)[facility]: 93-59-6473Pkqadi Vaccines (1 of 2)Zoster Vaccines (1 of 2)[facility]: 60-67-3737AXdE/Tdap/Td Vaccines (1 - Tdap)DTaP/Tdap/Td Vaccines (1 - Tdap) [facility]: 59-42-3894Bgefrthqcane vaccination Pneumococcal Vaccine (1 of 2 - PCV)[facility]: 89-49-7707Wwqpkrwxd C screeningHepatitis C ScreeningUnMetroHealth Parma Medical Center: 73-86-6960Ypmohvbo screeningDiabetes: Retinopathy Screening [facility]: 53-31-4649SNY Vaccines (1 of 1 - Standard series)MMR Vaccines (1 of 1 - Standard series)[facility]: 21-21-5536Gyoqekxhao measurementCreatinine LevelUnMetroHealth Parma Medical Center: 98-57-0142VrbixvptkljyadfsWwprnwgizipkieBbabmmavab [facility] ClevelandStart: 98-97-4297Xgstwxkmfi A1c measurementDiabetes: Hemoglobin X7HAlrsxnfgrnMetroHealth Parma Medical Center: 37-20-6684FQG screeningHIV ScreeningUnMetroHealth [facility] Medical Center: 89-06-4064Ygopq panelLipid PanelUnMetroHealth Par[facility] Medical Center: 74-96-0369Tkqrjzadj measurement Potassium LevelUnMetroHealth Parma Medical Center: 21-50-7895Twyhhdwtg for malignant neoplasm of colonNOMS [facility] HospitalStart: 11-04-5022Bllsw screening for proteinDiabetes: Urine Protein ScreeningThe MetroHealth SystemStart: 02-94-9478Sazbot Adult PhysicalYearly Adult PhysicalUnSumma HealthAnkle brachial pressure indexFairfield Medical Center Comprehensive metabolic 1999 panel - Serum or PlasmaFairfield Medical CenterComprehensive metabolic 1999 panel - Serum or [facility] CenterPatient referralCincinnati Shrin[facility] Work Phone: us Lower extremity vein - bilateralFairfield Medical CenterUS.doppler Lower extremity arteryVascular US lower extremity arterial Doppler complete Vascular Ultrasound Routine PVD (peripheral vascular disease) (CMS/HCC) Ordered: 05/04/2024[facility] Work Phone: Comment on above:Ordered: 05/04/2024[facility] HospitalTestosterone Level Total 09/08/24[facility] Immunizations Immunization DateImmunizationNotesCare EhqejrpeCvqdmzvu89-45-7333Qufosn-KdvQUyjv COVID-19 Vacc 30 MCG/0.3ML Intramuscular SuspensionWilliam Yosi DO Work Phone: [facility] on above:Result Comment: 2022-05-27: BPR9282-45-8377Rlykre- [employer] COVID-19 Vacc 30 MCG/0.3ML Intramuscular SuspensionWilliam Yosi DO Work Phone: [facility] [place] on above:Result Comment: 2022-05-27: JFH9517-12-2346Qiutuq- [employer] COVID-19 Vacc 30 MCG/0.3ML Intramuscular SuspensionWilliam Yosi DO Work Phone: [facility] [place] on above:Result Comment: 2022-05-27: [id number]: Highlighted row has not occurred!11-56-3796fmxonaajh virus vaccine, unspecified formulation Lety Gonzalez [facility] Payers DatePayer CategoryPayerPolicy [id number] Member Subscriber Plan / Payer (Effective 2024-Present) Name: Hosea Correafrancisca Valentino Relation to Subscriber: Self Name: Sunny, Johnathan Valentino ID: [id number] ([facility]) Type: Not on file Address: [id number] [place] [address] [id number]7-4885 Gepjspshbj894g2191704-67-4131YngihuwEGF848F9293719-21-6573Hyaajci Health Insurance1.2.840.245877.1.13.693.2.7.3.202428.34289-93-4871Bnfkrhm Health [id number] on5l05hw-2s5q-3378-guwv-4h170l32z76104-98-8888Sivf-rte 5e3g4766-7645-1c72-32p2-f5paly12elg267-92-9329Ghxvvsk69828591127721-11-7336 Zdutgyq16918988 2..1.759513.3.579.2.20060-31-5195Sljwcad5568888 2..1.823837.3.579.2.78368-28-4402Snuyoce3635426 2..1.898710.3.579.2.56755-75-7690Qbedhxl1913386 2.0.1.695938.3.579.2.55354-81-0569Bvauwsn1648867 2.0.1.688644.3.579.2.16237-47-7241Oozrtnl5361433 2.16.840.1.801525.3.579.2.97725-61-8544Zviyidu0401798 2.16.840.1.995447.3.579.2.86232-76-9239Lrrzfpa4375505 2.16.840.1.298139.3.579.2.87614-45-8371Wgsktsh3909778 2.16.840.1.323968.3.579.2.48898-75-6948Ekzowrv276023107 2.16.840.1.624662.3.579.2.80434-91-6891Qpnfopl245043286 2.16.840.1.511807.3.579.2.41431-68-7162Lqzbuqn89027369 2.16.840.1.289544.3.579.2.12876-45-5354Gtehxyk50857093 2.16.840.1.872958.3.579.2.89827-78-1926Etbhsnp97182668 2.16.840.1.688838.3.579.2.80578-85-3784Vdfrdjr29288932 2.16.840.1.481702.3.579.2.89760-57-5642Lmnvnqd06612424 2.16.840.1.597560.3.579.2.69200-11-9914Mpldfif52130311 2.16.840.1.188645.3.579.2.24459-68-8498Gbsbfds47795490 2.16.840.1.782808.3.579.2.02989-36-0137Xuwnteo50117353 2.16.840.1.189273.3.579.2.04983-17-0977Uiipbly94188033 2.16.840.1.986280.3.579.2.02155-09-1863Nsuemrj94410019 2.16.840.1.775285.3.579.2.46199-67-1813Zzvlwqd54238700 2.16.840.1.170570.3.579.2.62682-13-2063Yqltwdv62404478 2.16.840.1.006530.3.579.2.22102-53-3180Qfxdnbz10712880 2..840.1.371932.3.579.2.75529-68-0996Qgsgmft37405111 2..840.1.441976.3.579.2.76475-52-7457Zsahlio74414329 2.840.1.412894.3.579.2.09706-11-6231Huoadob06170369 2..840.1.744940.3.579.2.73164-85-0429Tmixccv11841375 2..840.1.557445.3.579.2.50455-44-0408Kanlsvg66594027 2.840.1.667493.3.579.2.74174-05-6851Qufpsmq08319836 2.840.1.707826.3.579.2.43069-76-6151Gutriyp15952570 2..840.1.769197.3.579.2.32246-96-3454Olygxbm66104528 2..840.1.531038.3.579.2.70256-91-3256Ftnojgv12443852 2..840.1.480158.3.579.2.01311-47-4203Bqqmzgk42596626 2.16840.1.204149.3.579.2.28831-53-6629Lpifgnp19227261 2.0.1.689722.3.579.2.84786-67-1369Skxdehd14420699 2.0.1.149584.3.579.2.69336-42-9473Npjeyzd66456799 2.0.1.613963.3.579.2.37757-06-7807Gnynuik63873850 2.0.1.243893.3.579.2.72997-64-9133Oynimfc56212839 2.0.1.795691.3.579.2.46596-31-7527Hsbgsmx83081837 2..1.062152.3.579.2.03520-62-4377Nlyhgrd54789010 2.0.1.516846.3.579.2.53931-49-8813Vrhqwtx35544532 2.0.1.375555.3.579.2.87400-45-8727Dufhrlb4292874 2..1.856083.3.579.2.230271-21-3246Qgekuyt9421399 2.0.1.842346.3.579.2.005452-49-2200Kvyhhnv5503132 2.0.1.310599.3.579.2.684358-88-3472Qwunyev2578840 2.840.1.445948.3.579.2.484925-09-7156Pprnkoa0787299 2.0.1.424995.3.579.2.663185-25-0292Lctklng4330469 2.16.840.1.088581.3.579.2.671756-04-1904Qivojuw8014128 2.16.840.1.630984.3.579.2.803448-39-8276Gjqqwnh0324416 2.16.840.1.293897.3.579.2.593179-20-8911Yeqbyrh0904272 2.16.840.1.907070.3.579.2.009359-48-5008Odouksg1501089 2.16.840.1.897765.3.579.2.891637-42-5439Ijhwxdp46041583 2.16.840.1.570495.3.579.2.083618-04-4740Xkusqog92712004 2.840.1.404683.3.579.2.245832-98-8492Ovzqmrg85316797 2.16.840.1.229450.3.579.2.153554-52-5805Tkuvckx03150462 2..840.1.632566.3.579.2.336142-01-1132Iefsfiw22713824 2.16.840.1.488204.3.579.2.07115-76-3077Hxyodrm70006212 2..840.1.743319.3.579.2.88915-10-0634Txsbvfp83998672 2.16.840.1.910783.3.579.2.49603-61-7977Hcovxdy26606684 2.16.840.1.240589.3.579.2.54615-08-6409Oddybly26580420 2.16.840.1.975765.3.579.2.39805-52-3479Orxqxwh10201639 2.16.840.1.873318.3.579.2.47187-26-4567Cvvqzyp89006210 2.16.840.1.952903.3.579.2.45459-10-5023Byfltfg48826713 2.16.840.1.245359.3.579.2.85488-82-9665Nznwkev87163987 2.16.840.1.534851.3.579.2.71996-08-4461Azzyzkf03420318 2.16.840.1.286239.3.579.2.53858-34-5359Patmhnq67942084 2..840.1.623502.3.579.2.07558-98-7984Pqpldop66414967 2.840.1.291437.3.579.2.04216-22-1459Xpsaktw02223646 2..840.1.448075.3.579.2.99212-27-6343Wawvwfm32961134 2..840.1.537392.3.579.2.25438-91-4624Agllcvd71648986 2..840.1.600280.3.579.2.53204-02-2007Evzqldr96081641 2.840.1.115838.3.579.2.84248-41-7941Scfcskn40212078 2.16.840.1.816074.3.579.2.75426-74-1881Zzmxcxx13959646 2.16.840.1.950800.3.579.2.54853-50-9184Cpgcyjt15146684 2.16.840.1.553419.3.579.2.05439-63-9941Zfflejh13025698 2.16.840.1.810279.3.579.2.70942-96-2776Jzonbgr77381101 2.16.840.1.811757.3.579.2.59864-24-1007Aeecbqy90232413 2.16.840.1.413232.3.579.2.49764-00-4127Tyiolfy31968792 2.16.840.1.188722.3.579.2.23454-22-3407Jhyzukh58916338 2.16.840.1.698830.3.579.2.73186-63-8786Zvpxtxw83897619 2.16.840.1.112633.3.579.2.64360-58-8320Jksuvpe79816681 2.16.840.1.885174.3.579.2.27154-35-3613Uluguai57977519 2.16.840.1.574953.3.579.2.25490-30-7934Ettqacn58613389 2.16.840.1.578094.3.579.2.25244-85-6159Iegxjuk65981052 2.16.840.1.205567.3.579.2.53505-70-4808Kahkszd61311568 2.16.840.1.250391.3.579.2.94611-65-3748Xldhulu43946203 2.16.840.1.902817.3.579.2.28431-53-8228Ebtaewe45577869 2.16.840.1.241287.3.579.2.32151-47-3840Blhxeby80659930 2.16.840.1.820598.3.579.2.06803-41-7280Gabxjxh59262867 2.16.840.1.339940.3.579.2.47557-70-5707Sufyhrp36949088 2.16.840.1.103130.3.579.2.90667-89-5200Jvvabyf98910297 2.16.840.1.105076.3.579.2.42631-07-5164Mdiawwz68085839 2.16.840.1.190410.3.579.2.64442-42-3236Sdynlqy86846451 2.16.840.1.202838.3.579.2.44944-88-9036Vpgjjer81538167 2..840.1.822612.3.579.2.10427-45-1625Xurybyt09173538 2.16.840.1.379129.3.579.2.60182-89-2319Kugqoxm73224100 2..840.1.877069.3.579.2.60893-80-4995Cacktam57481174 2..840.1.632620.3.579.2.83821-50-3317Yebrhix93993801 2..840.1.498422.3.579.2.33566-69-8865Usvwmaj68577696 2..840.1.814301.3.579.2.01888-46-7427Krnctvo62845401 2.16.840.1.723202.3.579.2.47250-43-6799Jdkomyb48175036 2.16.840.1.107046.3.579.2.20853-22-8670Bknovpl84736348 2.16.840.1.905792.3.579.2.82888-01-4109Vhfhbtd696929020 2.16.840.1.781727.3.57[id number] Health Insurance [facility] [id number] [facility] [id number] [id number]-e623-hybx6ts318ly Social History DateTypeDetailFacilityStart: 07-03-2021 End: 53-72-6343Bbdkjan smoking statusEx-smoker (finding)[facility] start: 06-01-2024 End: 79-64-0976Rlo Assigned At BirthMaleExec[facility] start: 05-04-2024 End: 32-35-9344Srcbekad useCaffeine useAllina Health [facility] [address] DO Work Phone: Comment on above:coffee all day long;quit 2012 1ppd; Tobacco smoking statusNeverExecutive [facility] of [facility] Systemtart: 85-97-8641Qzi [facility]tart: 53-00-7316Xdgewgs of tobacco useCurrent smokerNOMS HealthcareStart: 88-92-8725Mfelilx of tobacco useCigarette SmokerNOMS HealthcareStart: 05-04-2024 End: 48-47-4274Vfgcgeh use and exposureSmokeless tobacco non-userNOMS Healthcare Start: 05-25-2024 End: 03-64-3882Wbockbyzv beverage intakeDeferNOMS HealthcareStart: 18-87-9746Jao assigned at birthNot on fileNOMS HealthcareTobacco smoking status NHISTobacco smoking consumption unknownNOMS HealthcareHas the [employer], gas, oil, or water company threatened to shut off services in your home in past 12[facility] SystemStart: 08-01-2022 End: 93-34-3342EwjUzwt (finding)[facility] Conjunct SystemSexual Orientation Executive [facility] start: 32-70-5471Feoqnuyxz beverage intakeEx-drinker (finding)[facility] Work Phone: Medical Equipment Procedure CodeEquipment CodeEquipment Original TextEquipment IdentifierDates Start: 07-85-3070Wdyucfj (Freestyle Lancets) 28 gauge miscStart: 11-16-2023 Lancets (Freestyle Lancets) 28 gauge miscStart: 11-16-2023 End: 53-96-6391Oscpymx (Freestyle Lancets) 28 gauge miscStart: 49-69-1732Ynigxqt (Freestyle Lancets) 28 gauge miscStart: 11-16-2023 End: 47-88-4513Hnhtunz (Freestyle Lancets) 28 gauge miscStart: 73-39-6283Hqldzcd (Freestyle Lancets) 28 gauge miscStart: 11-16-2023 End: 83-42-1174Udvpnzk (Freestyle Lancets) 28 gauge miscStart: 59-11-3379Wxeprgn (Freestyle Lancets) 28 gauge miscStart: 11-16-2023 End: 85-98-0951Qvcfcoj (Freestyle Lancets) 28 gauge miscStart: 12-77-1814Ootmmpx (Freestyle Lancets) 28 gauge miscStart: 11-16-2023 End: 98-79-0621Gmzjp Sugar Diagnostic stripStart: 76-87-0364Mnsxl Sugar Diagnostic stripStart: 61-49-3675Ekxigqt (Freestyle Lancets) 28 gauge miscStart: 35-73-5799Gjomrke (Freestyle Lancets) 28 gauge miscStart: 11-16-2023 End: 30-17-8537Cimoe Sugar Diagnostic stripStart: 36-35-9665Rpznf Sugar Diagnostic stripStart: 65-29-4616Zbejqat (Freestyle Lancets) 28 gauge miscStart: 63-66-8748Wmfgkkk (Freestyle Lancets) 28 gauge miscStart: 11-16-2023 End: 11-16-2023 Functional Status TrcqEtyntphdwoTtbkvoIihprupl04-43-4734Ozhcpcsdfe /80[facility] Work Phone: [phone]ejua signs76 07/16/2025 2:28 PM EST Gabriel Blackmon, [facility] Work Phone: [phone]wswybThe [facility] Work Phone: [phone]n StatusN/AExecutive [facility]07-03-2024Functional StatusN/AExec[facility]01-10-2024Functional StatusN/A [facility]06-28-2023Functional StatusNoExecutive [facility]03-22-2023 Functional StatusN/A[facility] 05-67-5110Rcuwoihlbd StatusN/AExecutive [facility]12-14-2022Functional StatusN/AExecutive [facility] Clinical Notes 05-27-2022 to 07-17-2025 Note Date & BxanEnkrSvogzfjt16-45-4094 Evaluation + Plan note* Assessment & Plan Note - NOLAN Proctor - 07/17/2025 8:53 AM ESTAssociated Problem(s): BMI 50.0-59.9, adult (Multi) Reviewed the merits of healthy lifestyle choices on overall cardiovascular health. 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 Last ischemic evaluation: May 2019 cardiac cath Ostial diagonal 60% with mid/distal stent 40% ISR Mid circumflex patent stent LAD mild/moderate diffuse disease RCA 30% EF 70% Current daily activity greater than 4 METS without concerning symptoms [facility] Work Phone: [phone]) 245-646311-11-2025 Miscellaneous Notes* Assessment & Plan Note - [...] EST Associated Problem(s): 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 [...] apnea Intolerant to CPAP documented in this encounterThe [facility] System Work Phone: [phone]) 544-257811-11-2025 Evaluation + Plan note* Assessment & Plan Note - NOLAN Proctor - 07/17/2025 8:52 AM ESTAssociated Problem(s): Hyperlipidemia Moderate intensity statin June 2025 LDL 57, HDL 30 [facility] Work Phone: [phone] 916-855611-11-2025 Evaluation + Plan note* Assessment & Plan Note - NOLAN Proctor - 07/17/2025 8:52 AM ESTAssociated Problem(s): Essential hypertension Optimal in office [facility] Work Phone: [phone] 316-487711-10-2025 Evaluation + Plan note* Assessment & Plan Note - NOLAN Proctor - 07/16/2025 2:43 PM ESTAssociated Problem(s): Obstructive sleep apnea Intolerant to CPAP [facility] Work Phone: [phone] History of Present illness Narrative* NOLAN Proctor [...] 57, HDL 30 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 Use of aspirin to prevent MA and TIA's discussed. Use and side effects [...] Dr. Deluca 6 months Vinod Proctor MSN, HEREDITARY CANCER PROGRAM COORDINATOR-WIRE CHARGER, PMHNP-[facility] [place], [place] Please excuse any errors in grammar or translation related to this dictation. Voice recognition software was utilized to prepare this document. documented in this [facility] Work Phone: 1(275) 506-567111-10-2025 Instructions* Patient Instructions* NOLAN Proctor - 07/16/2025 [...] Dr. Deluca 6 months documented in this [facility] Work Phone: 1(186) 365-382608-27-2025 Hospital Discharge instructions Patient Education 05/02/2025 11:59:48 [...] therapy. Follow these instructions at home: Take lrzg-orn-fslbjiq and prescription medicines only as told by [...] provider. Document Revised: 04/24/2021 Document Reviewed: 04/24/2021 [employer] Patient Education 2023 [employer]. Follow Up Care 10/26/2024 10:10:57 With:Carlos LIZAMA, SHAYY Hernandes, URO Address: When: Unknown [facility] 08-27-2025 NotePatient Education Urology Hypogonadism, Male Male [...] Follow these instructions at home: ??? Take zyii-ywr-dqjgoch and prescription medicines only as told by [...] sure you discuss any (more content not included)...[facility]02-20-2025 Hospital Discharge instructions Patient Education 10/26/2024 [...] therapy. Follow these instructions at home: Take mvhe-zae-xkvwjcx and prescription medicines only as told by [...] provider. Document Revised: 04/24/2021 Document Reviewed: 04/24/2021 [employer] Patient Education 2023 [employer]. Follow Up Care 10/25/2024 12:29:07 With:Carlos LIZAMA, SHAYY Hernandes, URO Address: When: Unknown [facility] 02-20-2025 NotePatient Education Urology Hypogonadism, Male Male [...] Follow these instructions at home: ??? Take hukw-rys-rftxzmi and prescription medicines only as told by [...] sure you discuss any (more content not included)...[facility]01-03-2025 Evaluation + Plan note Future Scheduled Tests Laboratory* Testosterone Level Total 09/08/24 [facility] 11-22-2024 Plan of care note* Plan of Care - Francisca Mcfadden LPN - 07/28/2024 2:45 PM EST Problem: Pain Goal: Patient goal is pain score less than 4, able to rest, and participant in treatment plan as appropriate Description: INTERVENTIONS: 1. Encourage patient or legal outreach representative to report early pain and ask [...] per policy 9. Teach patient or legal outreach representative interventions for comforting Outcome: Adequate for [...] at the bedside 7. Instruct patient/ patient outreach representative about use of safety devices 8. Include patient/ patient outreach representative in decisions related to safety Outcome: [...] hygiene technique 7. Identify and instruct patient/patient outreach representative in use of appropriate isolation precautionsfor identified infection/symptoms 8. Provide and discuss with patient/patient outreach representative on educational MDRO sheet 9. Encourage and monitor nutritional status daily and consult space engineer if indicated 10. Implement neutropenic guidelines as needed 11. Review exposure to history of communicable disease and recent travel history on admission 12. Encourage annual influenza vaccine 13. Encourage pneumonia vaccine Outcome: Adequate for Discharge Problem: Knowledge Deficit Goal: Patient/patient outreach representative demonstrates understanding of disease process, treatment [...] of 0 - 24 or indicated by [facility] Assessment Goal: Patient should be free from fall Description: Interventions: 1. [place] to environment 2. Hourly rounds addressing the [...] non-skid footwear 11. Teach patient and patient outreach representative to maintain environment for safety and [...] supplement as ordered 13. Collaborate with clinical space engineer 14. Include patient/ patient's outreach representative in decisions related to nutrition Outcome: [...] Score of =/> 25 or indicated by [facility] Assessment Goal: Patient should be free from fall Description: Interventions: 1. [place] to environment 2. Hourly rounds addressing the [...] non-skid footwear 11. Teach patient and patient outreach representative to maintain environment for safety and [...] (cane, walker) within reach 19. Request patient outreach representative bring adaptive equipment/mobility aids from home or obtain and provide as needed 20. Consult pharmacy regarding effects of med's affecting mobility, cognition, and alternatives 21. Obtain physician order for PT if risk factors associated with mobility are present 22. Obtain physician order for OT as appropriate 23. Utilize diversional activities 24. Educate patient and patient outreach representative how to maintain a safe environment during visitationtimes (notify nurse prior to leaving bedside) 25. Consider appropriateness of medical or non-medical coding auditor 26. Set up voiding schedule as appropriate [...] discharge planning process 5. Communicate referral to primary special educator as appropriate 6. Communicate referral to space engineer as appropriate 7. Collaborate with case management/social human services assistants for discharge needs Outcome: Adequate for Discharge [facility] Conjunct [id number] Miscellaneous Notes* Plan of Care - Francisca Mcfadden LPN - 07/28/2024 2:45 PM EST Problem: Pain Goal: Patient goal is pain score less than 4, able to rest, and participant in treatment plan as appropriate Description: INTERVENTIONS: 1. Encourage patient or legal outreach representative to report early pain and ask [...] per policy 9. Teach patient or legal outreach representative interventions for comforting Outcome: Adequate for [...] at the bedside 7. Instruct patient/ patient outreach representative about use of safety devices 8. Include patient/ patient outreach representative in decisions related to safety Outcome: [...] hygiene technique 7. Identify and instruct patient/patient outreach representative in use of appropriate isolation precautionsfor identified infection/symptoms 8. Provide and discuss with patient/patient outreach representative on educational MDRO sheet 9. Encourage and monitor nutritional status daily and consult space engineer if indicated 10. Implement neutropenic guidelines as needed 11. Review exposure to history of communicable disease and recent travel history on admission 12. Encourage annual influenza vaccine 13. Encourage pneumonia vaccine Outcome: Adequate for Discharge Problem: Knowledge Deficit Goal: Patient/patient outreach representative demonstrates understanding of disease process, treatment [...] of 0 - 24 or indicated by [facility] Assessment Goal: Patient should be free from fall Description: Interventions: 1. [place] to environment 2. Hourly rounds addressing the [...] non-skid footwear 11. Teach patient and patient outreach representative to maintain environment for safety and [...] supplement as ordered 13. Collaborate with clinical space engineer 14. Include patient/ patient's outreach representative in decisions related to nutrition Outcome: [...] Score of =/> 25 or indicated by [facility] Assessment Goal: Patient should be free from fall Description: Interventions: 1. [place] to environment 2. Hourly rounds addressing the [...] non-skid footwear 11. Teach patient and patient outreach representative to maintain environment for safety and [...] (cane, walker) within reach 19. Request patient outreach representative bring adaptive equipment/mobility aids from home or obtain and provide as needed 20. Consult pharmacy regarding effects of med's affecting mobility, cognition, and alternatives 21. Obtain physician order for PT if risk factors associated with mobility are present 22. Obtain physician order for OT as appropriate 23. Utilize diversional activities 24. Educate patient and patient outreach representative how to maintain a safe environment during visitationtimes (notify nurse prior to leaving bedside) 25. Consider appropriateness of medical or non-medical coding auditor 26. Set up voiding schedule as appropriate [...] discharge planning process 5. Communicate referral to primary special educator as appropriate 6. Communicate referral to space engineer as appropriate 7. Collaborate with case management/social human services assistants for discharge needs Outcome: Adequate for Discharge [...] Description: INTERVENTIONS: 1. Encourage patient or legal outreach representative to report early pain and ask [...] per policy 9. Teach patient or legal outreach representative interventions for comforting Outcome: Progressing Note: [...] at the bedside 7. Instruct patient/ patient outreach representative about use of safety devices 8. Include patient/ patient outreach representative in decisions related to safety Outcome: [...] Description: INTERVENTIONS: 1. Encourage patient or legal outreach representative to report early pain and ask [...] per policy 9. Teach patient or legal outreach representative interventions for comforting Outcome: Progressing Note: [...] hygiene technique 7. Identify and instruct patient/patient outreach representative in use of appropriate isolation precautionsfor identified infection/symptoms 8. Provide and discuss with patient/patient outreach representative on educational MDRO sheet 9. Encourage and monitor nutritional status daily and consult space engineer if indicated 10. Implement neutropenic guidelines as [...] Description: INTERVENTIONS: 1. Encourage patient or legal outreach representative to report early pain and ask [...] per policy 9. Teach patient or legal outreach representative interventions for comforting Outcome: Progressing Note: [...] at the bedside 7. Instruct patient/ patient outreach representative about use of safety devices 8. Include patient/ patient outreach representative in decisions related to safety Outcome: [...] Description: INTERVENTIONS: 1. Encourage patient or legal outreach representative to report early pain and ask [...] per policy 9. Teach patient or legal outreach representative interventions for comforting Outcome: Progressing Note: [...] Description: INTERVENTIONS: 1. Encourage patient or legal outreach representative to report early pain and ask [...] per policy 9. Teach patient or legal outreach representative interventions for comforting Outcome: Progressing Note: Evaluation of progress towards goal: Pain well managed with dilaudid, ngt to [facility]. Problem: Safety Goal: Patient will be injury free during hospitalization Description: INTERVENTIONS: 1. Assess patient's risk for falls and implement fall prevention plan of care per policy 2. Provide and maintain a safe environment 3. Proper use of double Identifiers 4. Medication administration using the 5 rights 5. Hand hygiene 6. Specimens are labeled at the bedside 7. Instruct patient/ patient outreach representative about use of safety devices 8. Include patient/ patient outreach representative in decisions related to safety Outcome: [...] hygiene technique 7. Identify and instruct patient/patient outreach representative in use of appropriate isolation precautionsfor identified infection/symptoms 8. Provide and discuss with patient/patient outreach representative on educational MDRO sheet 9. Encourage and monitor nutritional status daily and consult space engineer if indicated 10. Implement neutropenic guidelines as needed 11. Review exposure to history of communicable disease and recent travel history on admission 12. Encourage annual influenza vaccine 13. Encourage pneumonia vaccine Outcome: Progressing Note: Evaluation of progress towards goal: WBC count elevated on admission. Afebrile this shift. Will continue to monitor. Problem: Knowledge Deficit Goal: Patient/patient outreach representative demonstrates understanding of disease process, treatment [...] return home at discharge with spouse. * PT/OT/PLANT SCIENCE PROFESSOR - Jemima Proctor PT - 07/24/2024 9:32 AM EST Physical Therapy PT Type of Visit: (Per RN, pt is independent with mobility & has no PT needs. Will discontinue PT order at this time.) * PT/OT/PLANT SCIENCE PROFESSOR - Emily Vidales OTR/L - 07/24/2024 9:28 AM EST Occupational Therapy OT Type of Visit: Discharge from Therapy (Per RN report, pt is indep with ADLs and functional mobility. No acute OT needs identified. Will discontinue OT order at this time.) * Discharge Planning Note - Alaina Slaughter LCSW - 07/24/2024 9:18 AM EST DISCHARGE PLANNING NOTE Blackjack Dealer met with patient, introduced self, and explained role. Patient educated on safe discharge plan. Pt admitted 07/24/2024 with Small bowel obstruction (CMS-HCC) [K56.609] Small bowel obstruction (CMS-HCC) [K56.609] per chart review. Pt is listed in [facility] as a 5% risk forre-admission. Pt reports that he is from the [facility]. Confirms that he does [...] primary care provider on file. Pharmacy: [facility] [place] PCP and pharmacy confirmed with patient. CN [...] Description: INTERVENTIONS: 1. Encourage patient or legal outreach representative to report early pain and ask [...] per policy 9. Teach patient or legal outreach representative interventions for comforting Outcome: Progressing Note: Evaluation of progress towards goal: Patient rates pain a 10/10. PRN pain medications requested from [employer] Problem: Safety Goal: Patient will be injury free during hospitalization Description: INTERVENTIONS: 1. Assess patient's risk for falls and implement fall prevention plan of care per policy 2. Provide and maintain a safe environment 3. Proper use of double Identifiers 4. Medication administration using the 5 rights 5. Hand hygiene 6. Specimens are labeled at the bedside 7. Instruct patient/ patient outreach representative about use of safety devices 8. Include patient/ patient outreach representative in decisions related to safety Outcome: [...] hygiene technique 7. Identify and instruct patient/patient outreach representative in use of appropriate isolation precautionsfor identified infection/symptoms 8. Provide and discuss with patient/patient outreach representative on educational MDRO sheet 9. Encourage and monitor nutritional status daily and consult space engineer if indicated 10. Implement neutropenic guidelines as [...] - 24 [facility] Goal: Patient should be free from fall Description: Interventions: 1. [place] to environment 2. Hourly rounds addressing the [...] non-skid footwear 11. Teach patient and patient outreach representative to maintain environment for safety and engage in all aspects of fall prevention program Outcome: Progressing Note: Evaluation of progress towards goal: Patient is independent from home, steady gait with good balance. Low risk for falls, but still educated on importance of calling out for help to prevent falls. documented in this encounterUniversity [facility]11-22-2024 Progress note* Discharge Planning Note - SEMAJ Moss - 07/28/2024 2:23 PM EST DISCHARGE PLANNING NOTE Sw reviewed pts chart and discharge is written. No needs for discharge. - SEMAJ Moss 07/28/24 2:23 PM [facility]11-22-2024 Hospital course Narrative* Vaibhav Slater MD - 07/28/2024 12:07 PM EST Images from the original note were not included. [facility] INTERNAL MEDICINE [facility] - 6 CARD TELE/INTERMEDIATE [address] [place] [address] Hospital Medicine Discharge Summary Patient: Johnathan Correa Date of : 1960 Room: [facility] Encounter date: 07/28/24 DATE OF ADMISSION: 07/24/2024 DATE OF DISCHARGE:07/28/2024 DISCHARGE DIAGNOSES Principal Problem: Small bowel obstruction ([facility]) Active Problems: JAM (obstructive sleep apnea) Hypertension DM2 (diabetes mellitus, type 2) ([facility]) CAD (coronary artery disease) [facility] General Surgery PCP: No primary care provider on file. PROCEDURES None HOSPITAL COURSE SUMMARY Johnathan Stewart is a 63 y.o. male who presents with abdominal pain and nausea that started at 3:00 PMthis afternoon. He reported a normal bowel movement the day prior and denied any history of abdominal surgery. He was seen at [place] ED, and work up was completed with [...] patient who recommended patient be admitted to [facility] tosee the surgery team here. An NG tube was placed after discussion with general surgery prior to transfer. On arrival to [facility], he is having 10/10 abdominal pain and [...] NOLAN Araiza, 07/28/2024 4:06 PM [facility] Internal Medicine 7AM-7PM (all facilities): EpicChat or page through Vocera. 7PM-7AM ([facility], [facility] Psychiatry and Inpatient Rehab): EpicChat or page, [phone]. 7PM-7AM ([place], [place], [place], [place] and [facility] Rehab): EpicChat or page through Vocera. NOLAN Araiza 07/28/24 1606 Patient seen and examined Interviewed and any questions answered All labs , xrays reviewed Clinical assessment and decisions made by myself in entirety Discussed case with team Agree with above assessment and plan Electronically signed by: VAIBHAV SLATER MD, 07/28/2024 4:12 PM [facility] [address] [facility] [place] [address] (P): [phone] (F): [phone] documented in this encounterUniversity Hospitals [facility]11-22-2024 History of Present illness Narrative* Analisa Ward, - 07/28/2024 8:40 AM EST [facility] General Surgery Daily Progress Note Patient Name: [...] 07/28/24 8:45 AM 6a - 6p Pager: [phone] Cosigned by Francois Pate MD at 07/28/2024 4:13 PM EST Associated attestation - Francois Pate MD - 07/28/2024 4:13 PM EST I reviewed the resident's note and discussed the case with the resident. This specific service willnot be billed. * Rona Gage MD - 07/27/2024 8:31 AM EST Images from the original note were not included. [facility] Surgery Daily Progress Note Patient Name: Johnathan [...] from the original note were not included. [facility]IC[facility] INTERNAL MEDICINE [facility] - 6 CARD TELE/INTERMEDIATE [address] [place] [address] Hospital Medicine Progress Note Patient: oJhnathan Correa Date of : 1960 Room: [facility] PCP: No primary care provider on file. [...] PROBLEM LIST Principal Problem: Small bowel obstruction ([facility]) Active Problems: JAM (obstructive sleep apnea) Hypertension DM2 (diabetes mellitus, type 2) ([facility]) CAD (coronary artery disease) [...] count improved and tolerating diet. Stephanie Mayfield, HEREDITARY CANCER PROGRAM COORDINATOR-WIRE CHARGER, 07/27/2024 8:21 AM [facility] Internal Medicine 7AM-7PM (all facilities): [employer] or page through [employer]. 7PM-7AM ([facility], [facility] Psychiatry and Inpatient Rehab): Epic[employer] or page, [phone]. 7PM-7AM ([place], [place], [place], [place] and [facility] Rehab): [employer]Chat or page through [employer]. NOLAN Araiza 07/27/241850 NOLAN Araiza 07/27/241850 Physician [...] from the original note were not included. [facility] INTERNAL MEDICINE [facility] - 6 CARD TELE/INTERMEDIATE [address] [place] [address] Hospital Medicine Progress Note Patient: Johnathan Correa Date of : 1960 Room: [facility] PCP: No primary care provider on file. [...] PROBLEM LIST Principal Problem: Small bowel obstruction ([facility]) Active Problems: JAM (obstructive sleep apnea) Hypertension DM2 (diabetes mellitus, type 2) ([facility]) CAD (coronary artery disease) ASSESSMENT & PLAN Small Bowel Obstruction General Surgery consulted. Passing gas and had small loose BM. Afebrile. WBC 16.3 > 17.5 > 15.9. NGT pulled this morning. Denies N/V, but does admit to mild abdominal pain in bilateral upper quadrants. Tolerating CLD. [place] PRN for pain and compazine PRN for [...] 7AM-7PM (all facilities): [employer] or page through [employer]. 7PM-7AM ([facility], [facility] Psychiatry and Inpatient Rehab): [employer] or page, [phone]. 7PM-7AM ([place], [place], [place], [place] and [facility] Rehab): EpicChat or page through [employer]. NOLAN Araiza 07/26/24 7940 Physician Attestation I personally performed a face [...] from the original note were not included. [facility] Surgery Daily Progress Note Patient Name: Johnathan [...] FACS General Surgery and Minimally Invasive Surgery [address] [place] [address], [address] [place] [address] Office: * Adrienne Rodriguez MD - 07/25/2024 8:58 AM EST Images from the original note were not included. [facility] INTERNAL MEDICINE [facility] - 6 CARD TELE/INTERMEDIATE [address] [facility] [address] Hospital Medicine Progress Note Patient: Johnathan Correa [...] PROBLEM LIST Principal Problem: Small bowel obstruction ([facility]) Active Problems: JAM (obstructive sleep apnea) Hypertension DM2 (diabetes mellitus, type 2) ([facility]) CAD (coronary artery disease) [...] DC planning: Pending Clinical Course. Stephanie Mayfield, HEREDITARY CANCER PROGRAM COORDINATOR-WIRE CHARGER, 07/25/2024 8:58 AM [facility] Internal Medicine 7AM-7PM (all facilities): [employer] or page through [employer]. [facility]PM-7AM ([facility]): EpicChat or page, [phone]. 7PM-7AM ([place], [place], [place], [place] and [facility] Rehab): EpicChat or page through [employer]. NOLAN Araiza 07/25/24 1704 Physician Attestation I [...] from the original note were not included. [facility] General Surgery Daily Progress Note Patient Name: [...] plan as noted above. documented in this encounterUniversity Hospitals [facility] Center11-22-2024 Nurse Note* Mono Weinberg RN - 07/28/2024 7:17 AM EST Plan of care reviewed with ANTOINETTE Tran. [facility]11-22-[facility] Nurse Note* Mono Weinberg RN [...] CPAP machine with him. Teresa Nguyen RN [id number] Rapid Response: [facility] * Luis Pope RN - 07/24/2024 4:03 AM EST Patient arrived at 0315 from [facility]. The patient arrived with an NG tube at 64 cm and was hooked to suction at the previous facility. Reached out to the PAPER MACHINE BACK TENDER regional airline pilot for suction orders and was advised to reach out to General Surgery for suction orders. I paged Dr. Pate who was regional airline pilot for general surgery and told him about the consult and the need for suction orders and he told me thatI can not call at [phone] and ask for orders for a new consult he doesn't even know. I told him I was advised to reach out to him for the suction order and he advised me to reach back out to the PAPER MACHINE BACK TENDER regional airline pilot as he was not doing it. Sent another secure messaged to the PAPER MACHINE BACK TENDER regional airline pilot. Waiting for orders. Will continue to monitor. documented in this encounterUniversity Hospitals Cleveland Medical Center11-22-2024 Plan of care note * Plan of Care - Erwin Starkey RN - 07/28/2024 12:02 AM EST Problem: Pain Goal: Patient goal is pain score less than 4, able to rest, and participant in treatment plan as appropriate Description: INTERVENTIONS: 1. Encourage patient or legal outreach representative to report early pain and ask [...] per policy 9. Teach patient or legal outreach representative interventions for comforting Outcome: Progressing Note: Evaluation of progress towards goal: Patient encouraged to report pain early. [facility]11-21-2024 Plan of care note* Plan of Care [...] at the bedside 7. Instruct patient/ patient outreach representative about use of safety devices 8. Include patient/ patient outreach representative in decisions related to safety Outcome: Progressing Note: Evaluation of progress towards goal: call light within reach and bed in lowest position [facility]11-21-2024 Nurse Note* Josiane Aguilar RN - 07/27/2024 6:00 PM EST Plan of care reviewed with antoinette [facility]11-21-2024 Nurse Note* Blaire Aldana LPN - 07/27/2024 9:49 AM EST Pt tolerated reg diet eating 25% of his breakfast [facility]11-21-2024 Progress note* Query Response - NOLAN Araiza [...] signed by: Stephanie FRANCISCO 07/27/2024 6:57 AM [facility]11-21-2024 Plan of care note* Plan of Care - Luis Pope RN - 07/27/2024 4:44 AM EST Problem: Pain Goal: Patient goal is pain score less than 4, able to rest, and participant in treatment plan as appropriate Description: INTERVENTIONS: 1. Encourage patient or legal outreach representative to report early pain and ask [...] per policy 9. Teach patient or legal outreach representative interventions for comforting Outcome: Progressing Note: Evaluation of progress towards goal: Patient denies pain at this time and is sleeping comfortably in bed. [facility]11-20-2024 Progress note* Discharge Planning Note - Beatrice [...] is available should any further needs arise. [facility]11-20-2024 Plan of care note* Plan of Care [...] hygiene technique 7. Identify and instruct patient/patient outreach representative in use of appropriate isolation precautionsfor identified infection/symptoms 8. Provide and discuss with patient/patient outreach representative on educational MDRO sheet 9. Encourage and monitor nutritional status daily and consult space engineer if indicated 10. Implement neutropenic guidelines as needed 11. Review exposure to history of communicable disease and recent travel history on admission 12. Encourage annual influenza vaccine 13. Encourage pneumonia vaccine Outcome: Progressing Note: Evaluation of progress towards goal: vital signs and labs are monitored each shift [facility]11-20-2024 Nurse Note* Blaire Aldana LPN - 07/26/2024 8:38 AM EST NG tube removed per order, Pt tolerated procedure well. No c/o pain of nausea. Pts diet has advanced to clear liquids [facility]11-20-2024 Plan of care note* Plan of Care - Luis Pope RN - 07/26/2024 3:26 AM EST Problem: Pain Goal: Patient goal is pain score less than 4, able to rest, and participant in treatment plan as appropriate Description: INTERVENTIONS: 1. Encourage patient or legal outreach representative to report early pain and ask [...] per policy 9. Teach patient or legal outreach representative interventions for comforting Outcome: Progressing Note: [...] at the bedside 7. Instruct patient/ patient outreach representative about use of safety devices 8. Include patient/ patient outreach representative in decisions related to safety Outcome: [...] patient to go home with her . [facility]11-19-2024 Plan of care note* Plan of Care [...] goal: pt will be d/c to [facility]11-19-2024 Nurse Note* Teresa Nguyen RN - 07/25/2024 [...] CPAP machine with him. Teresa Nguyen RN [id number] Rapid Response: [facility]11-19-2024 Plan of care note* Plan of Care - Luis Pope RN - 07/25/2024 2:21 AM EST Problem: Pain Goal: Patient goal is pain score less than 4, able to rest, and participant in treatment plan as appropriate Description: INTERVENTIONS: 1. Encourage patient or legal outreach representative to report early pain and ask [...] per policy 9. Teach patient or legal outreach representative interventions for comforting Outcome: Progressing Note: Evaluation of progress towards goal: Patient denies pain at this time and NG hooked up to LIWS. [facility]11-18-2024 Plan of care note* Plan of Care - Alka Bird RN - 07/24/2024 5:25 PM EST Problem: Pain Goal: Patient goal is pain score less than 4, able to rest, and participant in treatment plan as appropriate Description: INTERVENTIONS: 1. Encourage patient or legal outreach representative to report early pain and ask [...] per policy 9. Teach patient or legal outreach representative interventions for comforting Outcome: Progressing Note: [...] at the bedside 7. Instruct patient/ patient outreach representative about use of safety devices 8. Include patient/ patient outreach representative in decisions related to safety Outcome: [...] hygiene technique 7. Identify and instruct patient/patient outreach representative in use of appropriate isolation precautionsfor identified infection/symptoms 8. Provide and discuss with patient/patient outreach representative on educational MDRO sheet 9. Encourage and monitor nutritional status daily and consult space engineer if indicated 10. Implement neutropenic guidelines as needed 11. Review exposure to history of communicable disease and recent travel history on admission 12. Encourage annual influenza vaccine 13. Encourage pneumonia vaccine Outcome: Progressing Note: Evaluation of progress towards goal: WBC count elevated on admission. Afebrile this shift. Will continue to monitor. Problem: Knowledge Deficit Goal: Patient/patient outreach representative demonstrates understanding of disease process, treatment [...] to return home at discharge with spouse. [employer] Work Phone: [phone] Progress note* PT/OT/PLANT SCIENCE PROFESSOR - Jemima Proctor PT - 07/24/2024 9:32 AM EST Physical Therapy PT Type of Visit: (Per RN, pt is independent with mobility & has no PT needs. Will discontinue PT order at this time.) [facility]11-18-2024 Progress note* PT/OT/PLANT SCIENCE PROFESSOR - Emily Vidales OTR/L - 07/24/2024 9:28 AM EST Occupational Therapy OT Type of Visit: Discharge from Therapy (Per RN report, pt is indep with ADLs and functional mobility. No acute OT needs identified. Will discontinue OT order at this time.) [facility]11-18-2024 Progress note* Discharge Planning Note - Alaina Slaughter LCSW - 07/24/2024 9:18 AM EST DISCHARGE PLANNING NOTE Blackjack Dealer met with patient, introduced self, and explained role. Patient educated on safe discharge plan. Pt admitted 07/24/2024 with Small bowel obstruction (CMS-HCC) [K56.609] Small bowel obstruction (CMS-HCC) [K56.609] per chart review. Pt is listed in [facility] as a 5% risk forre-admission. Pt reports that he is from the [facility]. Confirms that he does [...] primary care provider on file. Pharmacy: [facility] [place] PCP and pharmacy confirmed with patient. CN [...] - Alaina Slaughter LCSW 07/24/24 9:19 AM [facility]11-18-2024 History and physical note* Adrienne Rodriguez MD - 07/24/2024 4:11 AM EST Images from the original note were not included. [facility] PHYSICIANS [facility] INTERNAL MEDICINE [facility] - 6 CARD TELE/INTERMEDIATE [address] [facility] [address] Hospital Medicine History & Physical Patient: Johnathan Stewart Date of : 1960 Room: [facility]/ PCP: No primary care provider on file. Admission date: 07/24/2024 3:05 AM Encounter date: 07/24/24 Hospital Day: 1 SUBJECTIVE Johnathan Stewart is a 63 y.o. male who presents with abdominal pain and nausea that started at 3:00 PMthis afternoon. He reported a normal bowel movement the day prior and denied any history of abdominal surgery. He was seen at [place] ED, and work up was completed with [...] patient who recommended patient be admitted to [facility] tosee the surgery team here. An NG tube was placed after discussion with general surgery prior to transfer. On arrival to [facility], he is having 10/10 abdominal pain and [...] ear normal. Nose: Nose normal. Mouth/Throat: Lips: [place]. Mouth: Mucous membranes are dry. Pharynx: Oropharynx [...] 7AM-7PM (all facilities): EpicChat or page through [employer]. 7PM-7AM ([facility], [facility] Psychiatry and Inpatient Rehab): EpicChat or page, [phone]. 7PM-7AM ([facility] and [facility] Rehab): EpicChat or page through [employer]. Emmett Sauer PA-C 07/24/24 0649 Physician Attestation [...] of care with patient. Adrienne Rodriguez MD [facility]11-18-2024 History and physical note* Adrienne Rodriguez MD - 07/24/2024 4:11 AM EST Images from the original note were not included. [facility] INTERNAL MEDICINE [facility] - 6 CARD TELE/INTERMEDIATE [address] [place] [address] Hospital Medicine History & Physical Patient: Johnathan Stewart Date of : 1960 Room: [facility]/ PCP: No primary care provider on file. Admission date: 07/24/2024 3:05 AM Encounter date: 07/24/24 Hospital Day: 1 SUBJECTIVE Johnathan Stewart is a 63 y.o. male who presents with abdominal pain and nausea that started at 3:00 PMthis afternoon. He reported a normal bowel movement the day prior and denied any history of abdominal surgery. He was seen at [place] ED, and work up was completed with [...] patient who recommended patient be admitted to [facility] tosee the surgery team here. An NG tube was placed after discussion with general surgery prior to transfer. On arrival to [facility], he is having 10/10 abdominal pain and [...] ear normal. Nose: Nose normal. Mouth/Throat: Lips: [place]. Mouth: Mucous membranes are dry. Pharynx: Oropharynx [...] PROBLEM LIST Principal Problem: Small bowel obstruction ([facility]) ASSESSMENT & PLAN Small bowel obstruction versus ileus CT abd/pelvis showed prominent gas and fluid filled distended small bowel loops appear to show gradual tapering to normal caliber distally, with no transition point identified, favoring severe small bowel ileus over partial distal small bowel obstruction. NPO ED physician spoke with Dr. Ferrara for surgery consult and placed NG tube - recommended transfer to [facility] to see surgery NG tube to [...] [facility] Internal Medicine 7AM-7PM (all facilities): [employer] or page through [employer]. 7PM-7AM ([facility], [facility] Psychiatry and Inpatient Rehab): EpicChat or page, [phone]. 7PM-7AM ([place], [place], [place], [place] and [facility] Rehab): [employer]Chat or page through [employer]. Emmett Sauer PA-C 07/24/24 0649 Physician Attestation [...] patient. Adrienne Rodriguez MD documented in this encounterUniversity Hospitals Cleveland Medical Center11-18-2024 Nurse Note* Luis Pope RN - 07/24/2024 4:03 AM EST Patient arrived at 0315 from [facility]. The patient arrived with an NG tube at 64 cm and was hooked to suction at the previous facility. Reached out to the PAPER MACHINE BACK TENDER regional airline pilot for suction orders and was advised to reach out to General Surgery for suction orders. I paged Dr. Pate who was regional airline pilot for general surgery and told him about the consult and the need for suction orders and he told me thatI can not call at 0400 and ask for orders for a new consult he doesn't even know. I told him I was advised to reach out to him for the suction order and he advised me to reach back out to the PAPER MACHINE BACK TENDER regional airline pilot as he was not doing it. Sent another secure messaged to the PAPER MACHINE BACK TENDER regional airline pilot. Waiting for orders. Will continue to monitor. [facility]11-18-2024 Miscellaneous Notes* Telephone Encounter - Junie Nolasco - 07/24/2024 3:54 AM EST Contract: bella Obrien calling for consult for small bowel obstruction. Room 607. Sent secure chat to Dr Pate. documented in this encounterUniversity Hospitals Cleveland Medical Center11-18-2024 Telephone encounter Note* Telephone Encounter - Junie Nolasco - 07/24/2024 3:54 AM EST Contract: bella Obrien calling for consult for small bowel obstruction. Room 607. Sent secure chat to Dr Pate. [facility]11-18-2024 Plan of care note* Plan of Care - Luis Pope RN - 07/24/2024 3:31 AM EST Problem: Pain Goal: Patient goal is pain score less than 4, able to rest, and participant in treatment plan as appropriate Description: INTERVENTIONS: 1. Encourage patient or legal outreach representative to report early pain and ask [...] per policy 9. Teach patient or legal outreach representative interventions for comforting Outcome: Progressing Note: Evaluation of progress towards goal: Patient rates pain a 06/15. PRN pain medications requested from PAPER MACHINE BACK TENDER regional airline pilot Problem: Safety Goal: Patient will be injury free during hospitalization Description: INTERVENTIONS: 1. Assess patient's risk for falls and implement fall prevention plan of care per policy 2. Provide and maintain a safe environment 3. Proper use of double Identifiers 4. Medication administration using the 5 rights 5. Hand hygiene 6. Specimens are labeled at the bedside 7. Instruct patient/ patient outreach representative about use of safety devices 8. Include patient/ patient outreach representative in decisions related to safety Outcome: [...] hygiene technique 7. Identify and instruct patient/patient outreach representative in use of appropriate isolation precautionsfor identified infection/symptoms 8. Provide and discuss with patient/patient outreach representative on educational MDRO sheet 9. Encourage and monitor nutritional status daily and consult space engineer if indicated 10. Implement neutropenic guidelines as [...] of 0 - 24 or indicated by [facility] Rehab Assessment Goal: Patient should be free from fall Description: Interventions: 1. [place] to environment 2. Hourly rounds addressing the [...] non-skid footwear 11. Teach patient and patient outreach representative to maintain environment for safety and engage in all aspects of fall prevention program Outcome: Progressing Note: Evaluation of progress towards goal: Patient is independent from home, steady gait with good balance. Low risk for falls, but still educated on importance of calling out for help to prevent falls. [employer] [facility]11-07-2024 History of Present illness Narrative* Gray Cancino [...] the following treatments for the ulcer of [facility] every other day. Pt is a DM2. Allergies: Allergies Allergen Reactions Metformin Diarrhea and GI intolerance Other Reaction(s): Abdominal Pain, diarrhea, Stomach cramps Vancomycin Rash Past Medical History: Past Medical History: Diagnosis Date Diabetes (CMS/HCC) Hypertension (CMS/[facility]) Medications: Current Outpatient Medications: [...] Partner Violence: Unknown (10/28/2023) Received from [facility] Safety & Environment Fear of Current [...] CP, palpitations, irregular rhythms. Old history of MA and cardiac stents OBJECTIVE LE EXAM: DERM: [...] cool tibia to toes b/l NEURO: 5.[address] monofilament test intact to digits and forefoot bilaterally 125Hz tuning fork diminished to 1st MPJ bilaterally ORTHO: +5/5 DF/PF/IN/EV right, +5/5 DF/PF/IN/EV left. 20 degrees inversion and 10 degrees eversion STJ b/l. Ankle ROM less than 10 degrees b/l. Negative pain on palpation to right hallux ulcer and left foot ulcerations DUSTIN PVR: [place] report reviewed today with findings of mild PVD right-sided DUSTIN TBI of 0.85 0.91 and TBI of right side 0.91 and left 0.84. 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 Diabetes 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 polyneuropathy, unspecified whether group home insulin use ([facility]) 2. Foot ulcer, right, with fat layer exposed ([facility]) 3. Foot ulcer, left, with fat layer exposed ([facility]) PLAN Patient observe for any changes to his foot and if has any issues to contact Podiatry but otherwisehe is leaving for 5 weeks to the [facility] and will contact Podiatry if [...] gear. Gray Cancino DPM documented in this encounterSaint Francis Hospital & Health [id number] History of Present illness Narrative* Gray Cancino [...] the following treatments for the ulcer of [facility] every other day. Pt is a DM2. Allergies: Allergies Allergen Reactions Metformin Diarrhea and GI intolerance Other Reaction(s): Abdominal Pain, diarrhea, Stomach cramps Vancomycin Rash Past Medical History: Past Medical History: Diagnosis Date Diabetes ([facility]) Hypertension ([facility]) Medications: Current Outpatient Medications: [...] Partner Violence: Unknown (10/28/2023) Received from [facility] [place] Safety & Environment Fear of Current [...] CP, palpitations, irregular rhythms. Old history of MA and cardiac stents OBJECTIVE LE EXAM: DERM: [...] cool tibia to toes b/l NEURO: 5.[address] monofilament test intact to digits and forefoot bilaterally 125Hz tuning fork diminished to 1st MPJ bilaterally ORTHO: +5/5 DF/PF/IN/EV right, +5/5 DF/PF/IN/EV left. 20 degrees inversion and 10 degrees eversion STJ b/l. Ankle ROM less than 10 degrees b/l. Negative pain on palpation to right hallux ulcer and left foot ulcerations DUSTIN PVR: [place] report reviewed today with findings of mild PVD right-sided DUSTIN TBI of 0.85 0.91 and TBI of right side 0.91 and left 0.84. TBI are normal with DUSTIN suggest mild bilateral arterial occlusive disease ASSESSMENT 15 days postop right and left foot epidermal skin graft 2 ulcerations 1. Diabetes 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 polyneuropathy, 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 terminal 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 ([facility]) 2. Foot ulcer, right, with fat layer exposed ([facility]) PLAN Sharp debridement with 15 blade of subcutaneous ulceration to right and foot with active bleeding noted and removal and excision of fibrotic and necrotic tissue to wound and DSD applied with neosporin. Pt to continue with [facility] every other day. Today's procedure is a staged procedure and patient may need further procedures in the future. Gray Cancino DPM documented in this encounterSaint Francis Hospital & Health [id number] History of Present illness Narrative* Gray Cancino [...] History: Past Medical History: Diagnosis Date Diabetes ([facility]) Hypertension ([facility]) Medications: Current Outpatient Medications: [...] Partner Violence: Unknown (10/28/2023) Received from [facility] Fear of Current [...] CP, palpitations, irregular rhythms. Old history of MA and cardiac stents OBJECTIVE LE EXAM: DERM: [...] cool tibia to toes b/l NEURO: 5.[address] monofilament test intact to digits and [...] underlying condition with diabetic polyneuropathy, 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 terminal 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 ([facility]) 2. Foot ulcer, right, with fat layer exposed ([facility]) PLAN Sharp debridement with 15 blade of subcutaneous ulceration to right and foot with active bleeding noted and removal and excision of fibrotic and necrotic tissue to wound and DSD applied with neosporin. Pt to continue with [facility] every other day. Today's procedure is a staged procedure and patient may need further procedures in the future. Gray Cancino DPM documented in this encounterSaint Francis Hospital & Health [id number] History of Present illness Narrative* Gray Cancino [...] sugars Patient had DUSTIN PVRs at local [facility] With notable mild PVD He presents today [...] History: Past Medical History: Diagnosis Date Diabetes ([facility]) Hypertension ([facility]) Medications: Current Outpatient Medications: [...] Partner Violence: Unknown (10/28/2023) Received from [facility] Fear of Current [...] CP, palpitations, irregular rhythms. Old history of MA and cardiac stents OBJECTIVE LE EXAM: DERM: [...] cool tibia to toes b/l NEURO: 5.[address] monofilament test intact to digits and [...] underlying condition with diabetic polyneuropathy, unspecified whether group home insulin use ([facility]/HCC) 2. Foot ulcer, right, with fat layer exposed (CMS/HCC) 3. Foot ulcer, left, with fat layer exposed ([facility]) 4. PVD (peripheral vascular disease) ([facility]) PLAN Decision for surgery [...] risks, alternatives, benefits, post op complications and group home expectations were discussed including but not limited to: infection,bone infection,wound dehiscence hardware failure and irritation,wound dehiscence,delay union/mal union/non union of bone. RSDS,neuroma,duty limitations,DVT/PE, MA,nerve damage, scar, loss of sensation, swelling. Pt [...] (date) Gray Cancino DPM documented in this encounterSaint Francis Hospital & Health [id number] History of Present illness Narrative* Gray Cancino DPM - 06/08/2024 8:50 AM EDT Patient: Johnathan Correa : 1960 PCP: Luis Jfefrey MD SUBJECTIVE This is a 63 y.o. [...] History: Past Medical History: Diagnosis Date Diabetes ([facility]) Hypertension ([facility]) Medications: Current Outpatient Medications: [...] Partner Violence: Unknown (10/28/2023) Received from [facility] Fear of Current [...] CP, palpitations, irregular rhythms. Old history of MA and cardiac stents OBJECTIVE LE EXAM: DERM: [...] cool tibia to toes b/l NEURO: 5.[address] monofilament test intact to digits and forefoot bilaterally 125Hz tuning fork diminished to 1st MPJ bilaterally ORTHO: +5/5 DF/PF/IN/EV right, +5/5 DF/PF/IN/EV left. 20 degrees inversion and 10 degrees eversion STJ b/l. Ankle ROM less than 10 degrees b/l. Negative pain on palpation to right hallux ulcer DUSTIN PVR: [place] report reviewed today with findings of mild PVD right-sided DUSTIN TBI of 0.85 0.91 and TBI of right side 0.91 and left 0.84. TBI are normal with DUSTIN suggest mild bilateral arterial occlusive disease ASSESSMENT 1. Diabetes 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 polyneuropathy, 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 terminal 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 ([facility]) 2. Foot ulcer, right, with fat layer exposed ([facility]) 3. Foot ulcer, left, with fat layer exposed ([facility]) PLAN Patient education on condition and treatment of condition. Continues urea cream daily to the right heel fissure and dry skin to feet bilaterally. Reviewed DUSTIN PVRs from [facility] with findings of mild PVD and [...] preop Gray Cancino DPM documented in this encounterSaint Francis Hospital & Health [id number] History of Present illness Narrative* Gray Cancino [...] History: Past Medical History: Diagnosis Date Diabetes ([facility]) Hypertension ([facility]) Medications: Current Outpatient Medications: [...] Partner Violence: Unknown (10/28/2023) Received from [facility] Fear of Current [...] CP, palpitations, irregular rhythms. Old history of MA and cardiac stents OBJECTIVE LE EXAM: DERM: [...] cool tibia to toes b/l NEURO: 5.[address] monofilament test intact to digits and forefoot bilaterally 125Hz tuning fork diminished to 1st MPJ bilaterally ORTHO: +5/5 DF/PF/IN/EV right, +5/5 DF/PF/IN/EV left. 20 degrees inversion and 10 degrees eversion STJ b/l. Ankle ROM less than 10 degrees b/l. Negative pain on palpation to right hallux ulcer DUSTIN PVR: [place] report reviewed today with findings of mild PVD right-sided DUSTIN TBI of 0.850.91 and TBI of right side 0.91 and left 0.84. TBI are normal with DUSTIN suggest mild bilateral arterial occlusive disease ASSESSMENT 1. Diabetes 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 polyneuropathy, 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 terminal 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 ([facility]) 2. Foot ulcer, right, with fat layer exposed ([facility]) 3. PVD (peripheral vascular disease) ([facility]) 4. Xerosis cutis PLAN Patient education on condition and treatment of condition. Continues urea cream daily to the right heel fissure and dry skin to feet bilaterally. Reviewed DUSTIN PVRs from [facility] with findings of mild PVD and most likely no intervention at this time Sharp debridement with 15 blade of subcutaneous ulceration to right foot with active bleeding notedand removal and excision of fibrotic and necrotic tissue to wound and DSD applied with neosporin. Pt to continue with Amerigel daily Gray Cancino DPM documented in this encounterSaint Francis Hospital & Health [id number] History of Present illness Narrative* Gray Cancino [...] History: Past Medical History: Diagnosis Date Diabetes ([facility]) Hypertension ([facility]) Medications: Current Outpatient Medications: [...] Partner Violence: Unknown (10/28/2023) Received from [facility] Fear of Current [...] CP, palpitations, irregular rhythms. Old history of MA and cardiac stents OBJECTIVE LE EXAM: DERM: [...] cool tibia to toes b/l NEURO: 5.[address] monofilament test intact to digits and [...] underlying condition with diabetic polyneuropathy, 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 terminal 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 ([facility]) 2. Foot ulcer, right, with fat layer exposed ([facility]) 3. PVD (peripheral vascular disease) ([facility]) PLAN Patient education on condition and treatment of condition. Continues urea cream daily to the right heel fissure and dry skin to feet bilaterally. Reviewed DUSTIN PVRs from [facility] with findings of mild PVD and most likely no intervention at this time Sharp debridement with 15 blade of subcutaneous ulceration to right foot with active bleeding notedand removal and excision of fibrotic and necrotic tissue to wound and DSD applied with neosporin. Pt to continue with Medihoney daily Gray Cancino DPM documented in this encounterSaint Francis Hospital & Health [id number] History of Present illness Narrative* Gray Cancino [...] History: Past Medical History: Diagnosis Date Diabetes ([facility]) Hypertension ([facility]) Medications: Current Outpatient Medications: [...] Partner Violence: Unknown (10/28/2023) Received from [facility] Fear of Current [...] CP, palpitations, irregular rhythms. Old history of MA and cardiac stents OBJECTIVE LE EXAM: DERM: [...] cool tibia to toes b/l NEURO: 5.[address] monofilament test intact to digits and forefoot bilaterally 125Hz tuning fork diminished to 1st MPJ bilaterally ORTHO: +5/5 DF/PF/IN/EV right, +5/5 DF/PF/IN/EV left. 20 degrees inversion and 10 degrees eversion STJ b/l. Ankle ROM less than 10 degrees b/l. Negative pain on palpation to right hallux ulcer DUSTIN PVR: [place] report reviewed today with findings of mild PVD right-sided DUSTIN TBI of 0.850.91 and TBI of right side 0.91 and left 0.84. TBI are normal with DUSTIN suggest mild bilateral arterial occlusive disease ASSESSMENT 1. Xerosis cutis 2. Skin fissure 3. Diabetes 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 polyneuropathy, 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 terminal 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 ([facility]) 4. Foot ulcer, right, with fat layer exposed ([facility]) 5. PVD (peripheral vascular disease) ([facility]) PLAN Patient education on condition and treatment of condition. Continues urea cream daily to the right heel fissure and dry skin to feet bilaterally. Reviewed DUSTIN PVRs from [facility] with findings of mild PVD and most likely no intervention at this time Sharp debridement with 15 blade of subcutaneous ulceration to right foot with active bleeding notedand removal and excision of fibrotic and necrotic tissue to wound and DSD applied with neosporin. Pt to continue with Medihoney daily Gray Cancino DPM documented in this encounterSaint Francis Hospital & Health [id number] History of Present illness Narrative* Gray Cancino [...] History: Past Medical History: Diagnosis Date Diabetes ([facility]) Hypertension ([facility]) Medications: Current Outpatient Medications: [...] Partner Violence: Unknown (10/28/2023) Received from [facility] Fear of Current [...] CP, palpitations, irregular rhythms. Old history of MA and cardiac stents OBJECTIVE LE EXAM: DERM: [...] cool tibia to toes b/l NEURO: 5.[address] monofilament test intact to digits and forefoot bilaterally 125Hz tuning fork diminished to 1st MPJ bilaterally ORTHO: +5/5 DF/PF/IN/EV right, +5/5 DF/PF/IN/EV left. 20 degrees inversion and 10 degrees eversion STJ b/l. Ankle ROM less than 10 degrees b/l. Negative pain on palpation to right hallux ulcer DUSTIN PVR: ASSESSMENT 1. Xerosis cutis 2. Skin fissure 3. PVD (peripheral vascular disease) ([facility]) 4. Diabetes 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 polyneuropathy, unspecified whether group home insulin use ([facility]) 5. Foot ulcer, right, with fat layer exposed ([facility]) PLAN Patient education on condition and treatment of condition. Continues urea cream daily to the right heel fissure and dry skin to feet bilaterally. Pharmacy wasunable to get the medication therefore recommend htbi-lwu-wnatxlq cream today to apply twice daily Patient awaits DUSTIN PVRs from [facility] Sharp debridement with 15 blade of subcutaneous ulceration to right foot with active bleeding notedand removal and excision of fibrotic and necrotic tissue to wound and DSD applied with neosporin. Pt to continue with Amerigel daily Gray Cancino DPM documented in this encounterSaint Francis Hospital & Health [id number] History of Present illness Narrative* Gray Cancino [...] History: Past Medical History: Diagnosis Date Diabetes ([facility]) Hypertension ([facility]) Medications: Current Outpatient Medications: [...] Partner Violence: Unknown (10/28/2023) Received from [facility] Fear of Current [...] CP, palpitations, irregular rhythms. Old history of MA and cardiac stents OBJECTIVE LE EXAM: DERM: [...] cool tibia to toes b/l NEURO: 5.[address] monofilament test intact to digits and forefoot bilaterally 125Hz tuning fork diminished to 1st MPJ bilaterally ORTHO: +5/5 DF/PF/IN/EV right, +5/5 DF/PF/IN/EV left. 20 degrees inversion and 10 degrees eversion STJ b/l. Ankle ROM less than 10 degrees b/l. Negative pain on palpation to right hallux ulcer ASSESSMENT 1. Foot ulcer, right, with fat layer exposed ([facility]) 2. Xerosis cutis 3. Skin fissure 4. Diabetes 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 polyneuropathy, unspecified whether group home insulin use ([facility]) 5. PVD (peripheral vascular disease) ([facility]) PLAN Patient education on condition and treatment of condition. Discussed application of hydrating cream to feet twice daily and to not place between toes and to apply prior to bed in evenings and to observe for any redness to feet or red streaks or drainage to feet. Patient to consider xhqn-jfo-xkmziie treatments for medication or use of urea [...] excoriation Betadine daily DUSTIN PVRs ordered at [facility] Gray Cancino DPM documented in this encounterSaint Francis Hospital & Health [id number] Hospital Discharge instructions Patient Education 03/08/2024 08:44:04 [...] therapy. Follow these instructions at home: Take faye-ijg-tkjwfde and prescription medicines only as told by [...] provider. Document Revised: 04/24/2021 Document Reviewed: 04/24/2021 [employer] Patient Education 2022 [employer]. Follow Up Care 09/15/2023 08:45:51 With:Carlos LIZAMA, Lety Scott, URL, URO Address: [address] [place] [address]- [phone] When: Unknown [facility] 07-03-2024 NotePatient Education Urology Hypogonadism, Male Male [...] Follow these instructions at home: ? Take qvsu-qma-kxwjyhj and prescription medicines only as told by [...] care provider. Document Revised: (more content not included)...[facility] 09-15-2023 Hospital Discharge instructions Patient Education [...] Follow these instructions at home: Medicines Take bfix-jfh-ijotpmv and prescription medicines only as told by [...] provider. Document Revised: 11/19/2021 Document Reviewed: 11/19/2021 [employer] Patient Education 2022 [employer]. Follow Up Care 06/09/2023 08:31:20 With:Carlos LIZAMA, SHAYY Hernandes, URO Address: [address] [place] [address] [phone] When: Unknown Comments:3 mos w/ PSA, T level, and HCT [facility] 12-01-2023 Evaluation note* Encounter Date Diagnosis Assessment [...] to encourage exercise and elevate legs prn [facility] 07-12-2023 Evaluation note* Encounter Date Diagnosis Assessment Notes Treatment Notes Treatment Clinical Notes Mar, Abdominal pain (ICD-10 - R10.9) [facility] 06-28-2023 Hospital Discharge instructions Follow Up Care 03/03/2023 10:42:41 With:Carlos LIZAMA, SHAYY Hernandes, URO Address: [address] [place] [phone] When:Within 2 Week(s) Comments:Will return in 2wks for next injection.Will see Dr Gonzalez end of May with PSA T & HCT & HGB. [facility] 06-28-2023 Hospital Discharge instructions Patient Education [...] Follow these instructions at home: Medicines Take ferb-lnt-oridwbh and prescription medicines only as told by [...] provider. Document Revised: 11/19/2021 Document Reviewed: 11/19/2021 [employer] Patient Education 2022 [employer]. Follow Up Care 11/25/2022 10:57:18 With:Carlos LIZAMA, SHAYY Hernandes, URO Address: When: Unknown [facility] 04-05-2023 Evaluation note* Encounter Date Diagnosis Assessment Notes Treatment Notes Treatment Clinical Notes Dec, Essential (primary) hypertension (ICD-10 - I10) chronic problem - has followup w cardio in January. Dec,Type 2 diabetes mellitus with hyperglycemia, without long-term current use of insulin (ICD-10 - E11.65)states average glucose is 150-180. will add actose and check cost. [facility] Other 03-22-2023 Hospital Discharge instructions Patient Education [...] 11/29/2001 Document Revised: 12/14/2019 Document Reviewed: 07/19/2017 [employer] Patient Education 2019 [employer]. Follow Up Care 10/13/2022 08:47:51 With:Carlos LIZAMA, SHAYY Hernandes, U[facility] Address: When: Unknown [facility] 01-04-2023 Hospital Discharge instructions Patient Education [...] Follow these instructions at home: Medicines Take uonx-ois-dwkchws and prescription medicines only as told by [...] 08/20/2001 Document Revised: 08/05/2018 Document Reviewed: 09/08/2017 [employer] Patient Education 2019 [employer]. [facility] 12-14-2022 Hospital Discharge instructions Patient Education [...] Follow these instructions at home: Medicines Take croe-uyb-xwbpdml and prescription medicines only as told by [...] 08/20/2001 Document Revised: 08/05/2018 Document Reviewed: 09/08/2017 [employer] Patient Education [employer]. Follow Up Care 08/10/2022 15:26:30 With:Lety Gonzalez MD, SHAYY, URO Address: When:3 months Comments:W/ PSA/testosterone/ & hemaglobin [facility] 09-21-2022 Hospital Discharge instructions Follow Up Care 05/27/2022 09:36:06 With:Lety Gonzalez MD, SHAYY, URO Address: When: Unknown [facility] chimy complaint+Reason for visit Narrative* Chief Complaint follow up Referred by Dr. Jeffrey for PVD Referral Dr. Jeffrey / no meterReason for VisitClaudication Fatigue Hypertension Type II diabetes mellitus Bilateral lower extremity edema Hemosiderin pigmentation of lower extremity due to varicose veins Obesity Symptomatic varicose veins of both lower extremities Wound of foot [facility] Work Phone: Chief complaint+Reason for visit Narrative* [...] veins Hypertension Obesity Type II diabetes mellitus [facility] Work Phone: Evaluation + Plan note Future Appointments Appointment Date:01/06/2022 08:00:00 AM Scheduled Provider: Location:[facility] Appointment Type:URO Nurse Visit Appointment Date:05/12/2022 08:45:00 AM Scheduled Provider:Venkat Proctor Jr., MD Location:[facility] Appointment Type:URO Office Visit [facility] evaluation + Plan note Future Appointments Appointment Date:02/03/2022 08:30:00 AM Scheduled Provider: Location:[facility] Appointment Type:URO Nurse Visit Appointment Date:05/12/2022 08:45:00 AM Scheduled Provider:Venkat Proctor Jr., MD Location:[facility] Appointment Type:URO Office Visit [facility] evaluation + Plan note Future Appointments Appointment Date:03/03/2022 08:00:00 AM Scheduled Provider: Location:[facility] Appointment Type:URO Nurse Visit Appointment Date:05/12/2022 08:45:00 AM Scheduled Provider:Venkat Proctor Jr., MD Location:[facility] Appointment Type:URO Office Visit [facility] evaluation + Plan note Future Appointments Appointment Date:03/31/2022 08:00:00 AM Scheduled Provider: Location:[facility] Appointment Type:URO Nurse Visit Appointment Date:04/28/2022 08:00:00 AM Scheduled Provider: Location:[facility] Appointment Type:URO Nurse Visit Appointment Date:05/26/2022 08:15:00 AM Scheduled Provider:Venkat Proctor Jr., MD Location:[facility] Appointment Type:URO Office Visit [facility] evaluation + Plan note Future Appointments Appointment Date:04/28/2022 08:00:00 AM Scheduled Provider: Location:[facility] Appointment Type:URO Nurse Visit Appointment Date:05/26/2022 08:15:00 AM Scheduled Provider:Venkat Proctor Jr., MD Location:[facility] Appointment Type:URO Office Visit [facility] evaluation + Plan note Future Appointments Appointment Date:06/24/2022 08:00:00 AM Scheduled Provider: Location:[facility] Appointment Type:URO Nurse Visit Appointment Date:07/29/2022 08:00:00 AM Scheduled Provider:Lety Gonzalez MD Location:[facility] Appointment Type:URO Office Visit [facility] evaluation + Plan note Future Appointments Appointment Date:07/22/2022 08:00:00 AM Scheduled Provider: Location:[facility] Appointment Type:URO Nurse Visit Appointment Date:08/05/2022 08:00:00 AM Scheduled Provider:Lety Gonzalez MD [facility] Appointment Type:URO Office Visit [facility] evaluation + Plan note Future Appointments Appointment Date:09/02/2022 08:30:00 AM Scheduled Provider: Location:[facility] Appointment Type:URO Nurse Visit Diagnostic Tests Pending * PSA Total 08/19/22 * Testosterone Level Total 08/19/22 [facility] evaluation + Plan note Future Appointments Appointment Date:09/16/2022 08:15:00 AM Scheduled Provider: Location:[facility] Appointment Type:URO Nurse Visit [facility] evaluation + Plan note Future Appointments Appointment Date:09/30/2022 08:00:00 AM Scheduled Provider: Location:[facility] Appointment Type:URO Nurse Visit [facility] evaluation + Plan note Future Appointments Appointment Date:10/13/2022 08:30:00 AM Scheduled Provider: Location:[facility] Appointment Type:URO Nurse Visit Appointment Date:10/28/2022 08:00:00 AM Scheduled Provider: [facility] Appointment Type:URO Nurse Visit [facility] evaluation + Plan note Future Appointments Appointment Date:10/28/2022 08:00:00 AM Scheduled Provider: Location:[facility] Appointment Type:URO Nurse Visit Appointment Date:11/11/2022 08:00:00 AM Scheduled Provider: Location:[facility] Appointment Type:URO Nurse Visit Appointment Date:11/25/2022 10:15:00 AM Scheduled Provider:Lety Gonzalez MD Location:[facility] Appointment Type:URO Office Visit [facility] evaluation + Plan note Future Appointments Appointment Date:11/11/2022 08:00:00 AM Scheduled Provider: Location:[facility] Appointment Type:URO Nurse Visit Appointment Date:11/25/2022 10:15:00 AM Scheduled Provider:Lety Gonzalez MD Location:[facility] Appointment Type:URO Office Visit [facility] evaluation + Plan note Future Appointments Appointment Date:11/18/2022 08:00:00 AM Scheduled Provider: Location:[facility] Appointment Type:URO Nurse Visit Appointment Date:11/25/2022 10:15:00 AM Scheduled Provider:Lety Gonzalez MD Location:[facility] Appointment Type:URO Office Visit Diagnostic Tests Pending * CBC w/ Auto Diff 11/11/22 * Testosterone Level Total 11/11/22 [facility] evaluation + Plan note Future Appointments Appointment Date:11/25/2022 10:15:00 AM Scheduled Provider:Lety Gonzalez MD Location:[facility] Appointment Type:URO Office Visit [facility] evaluation + Plan note Future Appointments Appointment Date:11/25/2022 10:15:00 AM Scheduled Provider:Lety Gonzalez MD Location:[facility] Appointment Type:URO Office Visit Diagnostic Tests Pending * Testosterone Level Total [facility]18[facility]22 [facility] Appointment Date:12/09/2022 08:00:00 AM Scheduled Provider: Location:[facility] Appointment Type:URO Nurse Visit Appointment Date:03/03/2023 09:45:00 AM Scheduled Provider:Lety Gonzalez MD Location:[facility] Appointment Type:URO Office Visit Diagnostic Tests Pending * Testosterone Level Total 11/25/22 * PSA Total 11/25/22 * Hemoglobin 11/25/22 [facility] evaluation + Plan note Future Appointments Appointment Date:12/23/2022 08:00:00 AM Scheduled Provider: Location:[facility] Appointment Type:URO Nurse Visit Appointment Date:03/03/2023 09:45:00 AM Scheduled Provider:Lety Gonzalez MD Location:[facility] Appointment Type:URO Office Visit [facility] evaluation + Plan note Future Appointments Appointment Date:01/06/2023 08:00:00 AM Scheduled Provider: Location:[facility] Appointment Type:URO Nurse Visit Appointment Date:03/03/2023 09:45:00 AM Scheduled Provider:Lety Gonzalez MD Location:[facility] Appointment Type:URO Office Visit [facility] evaluation + Plan note Future Appointments Appointment Date:01/19/2023 08:30:00 AM Scheduled Provider: Location:[facility] Appointment Type:URO Nurse Visit Appointment Date:03/03/2023 09:45:00 AM Scheduled Provider:Lety Gonzalez MD Location:[facility] Appointment Type:URO Office Visit [facility] evaluation + Plan note Future Appointments Appointment Date:02/17/2023 08:00:00 AM Scheduled Provider: Location:[facility] Appointment Type:URO Nurse Visit Appointment Date:03/03/2023 09:45:00 AM Scheduled Provider:Lety Gonzalez MD Location:[facility] Appointment Type:URO Office Visit [facility] evaluation + Plan note Future Appointments Appointment Date:02/24/2023 08:00:00 AM Scheduled Provider: Location:[facility] Appointment Type:URO Nurse Visit Appointment Date:03/03/2023 09:45:00 AM Scheduled Provider:Lety Gonzalez MD Location:[facility] Appointment Type:URO Office Visit [facility] evaluation + Plan note Future Appointments Appointment Date:03/03/2023 09:45:00 AM Scheduled Provider:Lety Gonzalez MD Location:[facility] Appointment Type:URO Office Visit [facility] evaluation + Plan note Future Appointments Appointment Date:03/03/2023 09:45:00 AM Scheduled Provider:Lety Gonzalez MD Location:[facility] Appointment Type:URO Office Visit Diagnostic Tests Pending * Testosterone Level Total 02/24/23 [facility] Appointment Date:03/17/2023 08:00:00 AM Scheduled Provider: Location:[facility] Appointment Type:URO Nurse Visit Appointment Date:06/09/2023 08:45:00 AM Scheduled Provider:Lety Gonzalez MD Location:[facility] Appointment Type:URO Office Visit Diagnostic Tests Pending * PSA Free & Total 03/03/23 [facility] evaluation + Plan note Future Appointments Appointment Date:03/31/2023 08:00:00 AM Scheduled Provider: Location:[facility] Appointment Type:URO Nurse Visit Appointment Date:06/09/2023 08:45:00 AM Scheduled Provider:Lety Gonzalez MD Location:[facility] Appointment Type:URO Office Visit [facility] evaluation + Plan note Future Appointments Appointment Date:04/14/2023 08:00:00 AM Scheduled Provider: Location:[facility] Appointment Type:URO Nurse Visit Appointment Date:06/09/2023 08:45:00 AM Scheduled Provider:Lety Gonzalez MD Location[facility] Appointment Type:URO Office Visit [facility] evaluation + Plan note Future Appointments Appointment Date:04/28/2023 08:30:00 AM Scheduled Provider: Location:[facility] Appointment Type:URO Nurse Visit Appointment Date:05/12/2023 08:00:00 AM Scheduled Provider: [facility] Appointment Type:URO Nurse Visit Appointment Date:05/26/2023 08:00:00 AM Scheduled Provider: Location:[facility] Appointment Type:URO Nurse Visit Appointment Date:06/09/2023 08:45:00 AM Scheduled Provider:Lety Gonzalez MD Location:[facility] Appointment Type:URO Office Visit [facility] evaluation + Plan note Future Appointments Appointment Date:05/12/2023 08:00:00 AM Scheduled Provider: Location:[facility] Appointment Type:URO Nurse Visit Appointment Date:05/26/2023 08:00:00 AM Scheduled Provider: Location:[facility] Appointment Type:URO Nurse Visit Appointment Date:06/09/2023 08:45:00 AM Scheduled Provider:Lety Gonzalez MD Location:[facility] Appointment Type:URO Office Visit Diagnostic Tests Pending * Hemoglobin and Hematocrit 04/28/23 * PSA Free & Total 04/28/23 * Testosterone Level Total 04/28/23 [facility] evaluation + Plan note Future Appointments Appointment Date:05/26/2023 08:00:00 AM Scheduled Provider: [facility] Appointment Type:URO Nurse Visit Appointment Date:06/02/2023 08:00:00 AM Scheduled Provider: [facility] Nurse Visit Appointment Date:06/09/2023 08:45:00 AM Scheduled Provider:Lety Gonzalez MD [facility] Type:[facility]O Office Visit [facility] evaluation + Plan note Future Appointments Appointment Date:06/02/2023 08:00:00 AM Scheduled Provider: [facility] Type:URO Nurse Visit Appointment Date:06/09/2023 08:45:00 AM Scheduled Provider:Lety Gonzalez MD [facility] Type:URO Office Visit [facility] evaluation + Plan note Future Appointments Appointment Date:07/07/2023 08:00:00 AM Scheduled Provider: Location:[facility] Appointment Type:URO Nurse Visit Appointment Date:07/21/2023 08:00:00 AM Scheduled Provider: Location:[facility] Appointment Type:URO Nurse Visit Appointment Date:08/04/2023 08:00:00 AM Scheduled Provider: Location:[facility] Appointment Type:URO Nurse Visit Appointment Date:09/01/2023 08:00:00 AM Scheduled Provider: Location:[facility] Appointment Type:URO Nurse Visit Appointment Date:09/15/2023 08:00:00 AM Scheduled Provider:Lety Gonzalez MD [facility] Type:URO Office Visit [facility] evaluation + Plan note Future Appointments Appointment Date:07/21/2023 08:00:00 AM Scheduled Provider: Location:[facility] Appointment Type:URO Nurse Visit Appointment Date:08/04/2023 08:00:00 AM Scheduled Provider: Location:[facility] Appointment Type:URO Nurse Visit Appointment Date:09/01/2023 08:00:00 AM Scheduled Provider: Location:[facility] Appointment Type:URO Nurse Visit Appointment Date:09/15/2023 08:00:00 AM Scheduled Provider:Lety Gonzalez MD Location:[facility] Appointment Type:URO Office Visit [facility] evaluation + Plan note Future Appointments Appointment Date:08/04/2023 08:00:00 AM Scheduled Provider: Location:[facility] Appointment Type:URO Nurse Visit Appointment Date:09/01/2023 08:00:00 AM Scheduled Provider: Location:[facility] Appointment Type:URO Nurse Visit Appointment Date:09/15/2023 08:00:00 AM Scheduled Provider:Lety Gonzalez MD Location:[facility] Appointment Type:URO Office Visit [facility] evaluation + Plan note Future Appointments Appointment Date:09/01/2023 08:00:00 AM Scheduled Provider: Location:[facility] Appointment Type:URO Nurse Visit Appointment Date:09/15/2023 08:00:00 AM Scheduled Provider:Lety Gonzalez MD Location:[facility] Appointment Type:URO Office Visit [facility] evaluation + Plan note Future Appointments Appointment Date:09/15/2023 08:00:00 AM Scheduled Provider:Lety Gonzalez MD Location:[facility] Appointment Type:URO Office Visit [facility] evaluation + Plan note Future Appointments Appointment Date:09/15/2023 08:00:00 AM Scheduled Provider:Lety Gonzalez MD Location:[facility] Appointment Type:URO Office Visit Diagnostic Tests Pending * Testosterone Level Total 09/08/23 [facility] App[facility] Appointment Date:09/29/2023 08:00:00 AM Scheduled Provider: Location:[facility] Appointment Type:URO Nurse Visit Appointment Date:03/01/2024 10:00:00 AM Scheduled Provider:Lety Gonzalez MD Location:[facility] Appointment Type:URO Office Visit Future Scheduled Tests Laboratory* PSA Screen, Total 12/15/23 * Hematocrit 09/15/23 * Testosterone Level Total 12/15/23 [facility] evaluation + Plan note Future Appointments Appointment Date:03/01/2024 10:00:00 AM Scheduled Provider:Lety Gonzalez MD Location:[facility] Appointment Type:URO Office Visit Future Scheduled Tests Laboratory* PSA Screen, Total 12/15/23 * Hematocrit 09/15/23 * Testosterone Level Total 12/15/23 [facility] evaluation + Plan note Future Appointments Appointment Date:11/03/2023 08:00:00 AM Scheduled Provider: Location:[facility] Appointment Type:URO Nurse Visit Appointment Date:03/01/2024 10:00:00 AM Scheduled Provider:Lety Gonzalez MD Location:[facility] Appointment Type:URO Office Visit Future Scheduled Tests Laboratory* PSA Screen, Total 12/15/23 * Hematocrit 09/15/23 * Testosterone Level Total 12/15/23 [facility] evaluation + Plan note Future Appointments Appointment Date:11/16/2023 09:00:00 AM Scheduled Provider: Location:[facility] Appointment Type:URO Nurse Visit Appointment Date:03/01/2024 10:00:00 AM Scheduled Provider:Lety Gonzalez MD Location:[facility] Appointment Type:URO Office Visit Future Scheduled Tests Laboratory* PSA Screen, Total 12/15/23 * Hematocrit 09/15/23 * Testosterone Level Total 12/15/23 [facility] evaluation + Plan note Future Appointments Appointment Date:12/24/2023 08:00:00 AM Scheduled Provider: Location:[facility] Appointment Type:URO Nurse Visit Appointment Date:03/01/2024 10:00:00 AM Scheduled Provider:Lety Gonzalez MD Location:[facility] Appointment Type:URO Office Visit Future Scheduled Tests Laboratory* PSA Screen, Total 12/15/23 * Hematocrit 09/15/23 * Testosterone Level Total 12/15/23 [facility] evaluation + Plan note Future Appointments Appointment Date:12/14/2023 08:30:00 AM Scheduled Provider: Location:[facility] Appointment Type:URO Nurse Visit Appointment Date:03/01/2024 10:00:00 AM Scheduled Provider:Lety Gonzalez MD Location:[facility] Appointment Type:URO Office Visit Future Scheduled Tests Laboratory* PSA Screen, Total 12/15/23 * Hematocrit 09/15/23 * Testosterone Level Total 12/15/23 [facility] evaluation + Plan note Future Appointments Appointment Date:12/28/2023 10:00:00 AM Scheduled Provider: Location:[facility] Appointment Type:URO Nurse Visit Appointment Date:03/01/2024 10:00:00 AM Scheduled Provider:Lety Gonzalez MD Location:[facility] Appointment Type:URO Office Visit Future Scheduled Tests Laboratory* PSA Screen, Total 12/15/23 * Hematocrit 09/15/23 * Testosterone Level Total 12/15/23 [facility] evaluation + Plan note Future Appointments Appointment Date:01/11/2024 08:30:00 AM Scheduled Provider: Location:[facility] Appointment Type:URO Nurse Visit Appointment Date:03/01/2024 10:00:00 AM Scheduled Provider:Lety Gonzalez MD Location:[facility] Appointment Type:URO Office Visit Future Scheduled Tests Laboratory* PSA Screen, Total 12/15/23 * Hematocrit 09/15/23 * Testosterone Level Total 12/15/23 [facility] evaluation + Plan note Future Appointments Appointment Date:01/25/2024 08:45:00 AM Scheduled Provider: Location:[facility] Appointment Type:URO Nurse Visit Appointment Date:03/01/2024 10:00:00 AM Scheduled Provider:Lety Goznalez MD Location:[facility] Appointment Type:URO Office Visit Future Scheduled Tests Laboratory* PSA Screen, Total 12/15/23 * Hematocrit 09/15/23 * Testosterone Level Total 12/15/23 [facility] evaluation + Plan note Future Appointments Appointment Date:02/09/2024 08:00:00 AM Scheduled Provider: Location:[facility] Appointment Type:URO Nurse Visit Appointment Date:03/01/2024 10:00:00 AM Scheduled Provider:Lety Gonzalez MD Location:[facility] Appointment Type:URO Office Visit Future Scheduled Tests Laboratory* PSA Screen, Total 12/15/23 * Hematocrit 09/15/23 * Testosterone Level Total 12/15/23 [facility] evaluation + Plan note Future Appointments Appointment Date:02/23/2024 08:00:00 AM Scheduled Provider: Location:[facility] Appointment Type:URO Nurse Visit Appointment Date:03/08/2024 08:15:00 AM Scheduled Provider:Lety Gonzalez MD Location:[facility] Appointment Type:URO Office Visit Future Scheduled Tests Laboratory* PSA Screen, Total 12/15/23 * Hematocrit 09/15/23 * Testosterone Level Total 12/15/23 [facility] evaluation + Plan note Future Appointments Appointment Date:03/01/2024 08:00:00 AM Scheduled Provider: Location:[facility] Appointment Type:URO Nurse Visit Appointment Date:03/08/2024 08:15:00 AM Scheduled Provider:Lety Gonzalez MD Location:[facility] Appointment Type:URO Office Visit Future Scheduled Tests Laboratory* PSA Screen, Total 12/15/23 * Hematocrit 09/15/23 * Testosterone Level Total 12/15/23 [facility] evaluation + Plan note Future Appointments Appointment Date:03/08/2024 08:15:00 AM Scheduled Provider:Lety Gonzalez MD Location:[facility] Appointment Type:URO Office Visit [facility] evaluation + Plan note Future Appointments Appointment Date:03/08/2024 08:15:00 AM Scheduled Provider:Lety Gonzalez MD Location:[facility] Appointment Type:URO Office Visit Diagnostic Tests Pending * Testosterone Level Total 03/01/24 [facility] App[facility]ments Appointment Date:03/08/2024 08:15:00 AM Scheduled Provider:Lety Gonzalez MD Location:[facility] Appointment Type:URO Office Visit Diagnostic Tests Pending * HgbA1c 03/01/24 [facility] Future App[facility]ments Appointment Date:03/22/2024 08:30:00 AM Scheduled Provider: Location:[facility] Appointment Type:URO Nurse Visit Appointment Date:04/05/2024 08:00:00 AM Scheduled Provider: Location:[facility] Appointment Type:URO Nurse Visit Appointment Date:08/23/2024 10:00:00 AM Scheduled Provider:Lety Gonzalez MD Location:[facility] Appointment Type:URO Office Visit Future Scheduled Tests Laboratory* Testosterone Level Total 09/08/24 [facility] evaluation + Plan note Future Appointments Appointment Date:04/05/2024 08:00:00 AM Scheduled Provider: Location:[facility] Appointment Type:URO Nurse Visit Appointment Date:08/23/2024 10:00:00 AM Scheduled Provider:Lety Gonzalez MD Location:[facility] Appointment Type:URO Office Visit Future Scheduled Tests Laboratory* Testosterone Level Total 09/08/24 [facility] evaluation + Plan note Future Appointments Appointment Date:04/19/2024 08:00:00 AM Scheduled Provider: Location:[facility] Appointment Type:URO Nurse Visit Appointment Date:08/23/2024 10:00:00 AM Scheduled Provider:Lety Gonzalez MD Location:[facility] Appointment Type:URO Office Visit Future Scheduled Tests Laboratory* Testosterone Level Total 09/08/24 [facility] evaluation + Plan note Future Appointments Appointment Date:05/03/2024 09:00:00 AM Scheduled Provider: Location:[facility] Appointment Type:URO Nurse Visit Appointment Date:08/23/2024 10:00:00 AM Scheduled Provider:Lety Gonzalez MD [facility] App[facility] Type:URO Office Visit Future Scheduled Tests Laboratory* Testosterone Level Total 09/08/24 [facility] evaluation + Plan note Future Appointments Appointment Date:05/17/2024 08:00:00 AM Scheduled Provider: Location:[facility] Appointment Type:URO Nurse Visit Appointment Date:08/23/2024 10:00:00 AM Scheduled Provider:Lety Gonzalez MD [facility] Appoint[facility] Type:URO Office Visit Future Scheduled Tests Laboratory* Testosterone Level Total 09/08/24 [facility] evaluation + Plan note Future Appointments Appointment Date:05/31/2024 08:00:00 AM Scheduled Provider: Location:[facility] Appointment Type:URO Nurse Visit Appointment Date:08/23/2024 10:00:00 AM Scheduled Provider:Lety Gonzalez MD [facility] Appoint[facility] Type:URO Office Visit Future Scheduled Tests Laboratory* Testosterone Level Total 09/08/24 [facility] evaluation + Plan note Future Appointments Appointment Date:06/14/2024 08:00:00 AM Scheduled Provider: [facility] Appointment Type:URO Nurse Visit Appointment Date:06/28/2024 08:00:00 AM Scheduled Provider: [facility] Appointment Type:URO Nurse Visit Appointment Date:07/12/2024 08:00:00 AM Scheduled Provider: [facility] Nurse Visit Appointment Date:07/26/2024 08:00:00 AM Scheduled Provider: Location:[facility] Appointment Type:URO Nurse Visit Appointment Date:08/09/2024 08:00:00 AM Scheduled Provider: Location:[facility] Appointment Type:URO Nurse Visit Appointment Date:08/23/2024 10:00:00 AM Scheduled Provider:Lety Gonzalez MD [facility] Type:[facility]O Office Visit Future Scheduled Tests Laboratory* Testosterone Level Total 09/08/24 [facility] evaluation + Plan note Future Appointments Appointment Date:06/28/2024 08:00:00 AM Scheduled Provider: Location:[facility] Appointment Type:URO Nurse Visit Appointment Date:07/12/2024 08:00:00 AM Scheduled Provider: Location:[facility] Appointment Type:URO Nurse Visit Appointment Date:07/26/2024 08:00:00 AM Scheduled Provider: Location:[facility] [place] Appointment Type:URO Nurse Visit Appointment Date:08/09/2024 08:00:00 AM Scheduled Provider: Location:[facility] [place] Appointment Type:URO Nurse Visit Appointment Date:08/23/2024 10:00:00 AM Scheduled Provider:Lety Gonzalez MD Location:[facility] [place] Appointment Type:URO Office Visit Appointment Date:08/29/2024 09:00:00 AM Scheduled Provider: Location:[facility] [place] Appointment Type:URO Nurse Visit Appointment Date:09/20/2024 09:45:00 AM Scheduled Provider:Lety Gonzalez MD Location:[facility] [place] Appointment Type:URO Office Visit Future Scheduled Tests Laboratory* Testosterone Level Total 09/08/24 [facility] evaluation + Plan note Future Appointments Appointment Date:07/12/2024 08:00:00 AM Scheduled Provider: Location:[facility] [place] Appointment Type:URO Nurse Visit Appointment Date:07/26/2024 08:00:00 AM Scheduled Provider: Location:[facility] [place] Appointment Type:URO Nurse Visit Appointment Date:08/09/2024 08:00:00 AM Scheduled Provider: Location:[facility] Appointment Type:URO Nurse Visit Appointment Date:08/23/2024 10:00:00 AM Scheduled Provider:Lety Gonzalez MD [facility] Appointment Type:URO Office Visit Appointment Date:08/29/2024 09:00:00 AM Scheduled Provider: Location:[facility] Appointment Type:URO Nurse Visit Appointment Date:09/20/2024 09:45:00 AM Scheduled Provider:Lety Gonzalez MD Location:[facility] Appointment Type:URO Office Visit Future Scheduled Tests Laboratory* Testosterone Level Total 09/08/24 [facility] evaluation + Plan note Future Appointments Appointment Date:08/29/2024 09:00:00 AM Scheduled Provider: Location:[facility] Appointment Type:URO Nurse Visit Appointment Date:09/20/2024 09:45:00 AM Scheduled Provider:Lety Gonzalez MD Location:[facility] Appointment Type:URO Office Visit Future Scheduled Tests Laboratory* Testosterone Level Total 09/08/24 [facility] evaluation + Plan note Future Appointments Appointment Date:09/07/2024 09:00:00 AM Scheduled Provider: Location:[facility] Appointment Type:URO Nurse Visit Appointment Date:09/13/2024 08:00:00 AM Scheduled Provider: Location:[facility] Appointment Type:URO Nurse Visit Appointment Date:09/20/2024 09:45:00 AM Scheduled Provider:Lety Gonzalez MD Location:[facility] Appointment Type:URO Office Visit Future Scheduled Tests Laboratory* Testosterone Level Total 09/08/24 [facility] evaluation + Plan note Future Appointments Appointment Date:09/13/2024 08:00:00 AM Scheduled Provider: Location:[facility] Appointment Type:URO Nurse Visit Appointment Date:09/20/2024 09:45:00 AM Scheduled Provider:Lety Gonzalez MD Location:[facility] Appointment Type:URO Office Visit Future Scheduled Tests Laboratory* Testosterone Level Total 09/08/24 [facility] evaluation + Plan note Future Appointments Appointment Date:09/20/2024 09:45:00 AM Scheduled Provider:Lety Gonzalez MD Location:[facility] Appointment Type:URO Office Visit Future Scheduled Tests Laboratory* Testosterone Level Total 09/08/24 [facility] evaluation + Plan note Future Appointments Appointment Date:09/20/2024 09:45:00 AM Scheduled Provider:Lety Gonzalez MD Location:[facility] Appointment Type:URO Office Visit Diagnostic Tests Pending * Testosterone Level Total 09/13/24 Future Scheduled Tests Laboratory* Testosterone Level Total 09/08/24 [facility] evaluation + Plan note Future Appointments Appointment Date:10/18/2024 08:30:00 AM Scheduled Provider: Location:[facility] Appointment Type:URO Nurse Visit Appointment Date:10/27/2024 08:00:00 AM Scheduled Provider:Lety Gonzalez MD Location:[facility] Appointment Type:URO Office Visit Appointment Date:12/20/2024 09:45:00 AM Scheduled Provider:Lety Gonzalez MD Location:[facility] Appointment Type:URO Office Visit Future Scheduled Tests Laboratory* Testosterone Level Total 09/08/24 [facility] evaluation + Plan note Future Appointments Appointment Date:10/27/2024 08:00:00 AM Scheduled Provider:Lety Gonzalez MD Location:[facility] Appointment Type:URO Office Visit Appointment Date:12/20/2024 09:45:00 AM Scheduled Provider:Lety Gonzalez MD Location:[facility] Appointment Type:URO Office Visit Diagnostic Tests Pending * Testosterone Level Total 10/18/24 Future Scheduled Tests Laboratory* Testosterone Level Total 09/08/24 [facility] Evaluation + Plan note Future Appointments Appointment Date:10/27/2024 08:00:00 AM Scheduled Provider:Lety Gonzalez MD Location:[facility] Appointment Type:URO Office Visit Appointment Date:12/20/2024 09:45:00 AM Scheduled Provider:Lety Gonzalez MD Location[facility] Appointment Type:URO Office Visit Future Scheduled Tests Laboratory* Testosterone Level Total 09/08/24 [facility] evaluation + Plan note Future Appointments Appointment Date:11/08/2024 08:30:00 AM Scheduled Provider: Location:[facility] Appointment Type:URO Nurse Visit Appointment Date:04/18/2025 08:00:00 AM Scheduled Provider: Location:[facility] Appointment Type:URO Nurse Visit Appointment Date:05/02/2025 08:45:00 AM Scheduled Provider:Lety Gonzalez MD Location:[facility] Appointment Type:URO Office Visit Future Scheduled Tests Laboratory* Testosterone Level Total 09/08/24 * Testosterone Level Total 04/06/25 [facility] Evaluation + Plan note Future Appointments Appointment Date:11/22/2024 08:00:00 AM Scheduled Provider: Location:[facility] Appointment Type:URO Nurse Visit Appointment Date:12/06/2024 08:00:00 AM Scheduled Provider: Location:[facility] [place] Appointment Type:URO Nurse Visit Appointment Date:04/25/2025 08:00:00 AM Scheduled Provider: Location:[facility] Appointment Type:URO Nurse Visit Appointment Date:05/02/2025 08:45:00 AM Scheduled Provider:Lety Gonzalez MD Location:[facility] Appointment Type:URO Office Visit Future Scheduled Tests Laboratory* Testosterone Level Total 09/08/24 * Testosterone Level Total 04/06/25 [facility] evaluation + Plan note Future Appointments Appointment Date:01/31/2025 08:30:00 AM Scheduled Provider: Location:[facility] Appointment Type:URO Nurse Visit Appointment Date:04/25/2025 08:00:00 AM Scheduled Provider: Location:[facility] Appointment Type:URO Nurse Visit Appointment Date:05/02/2025 08:45:00 AM Scheduled Provider:Lety Gonzalez MD Location:[facility] Appointment Type:URO Office Visit Future Scheduled Tests Laboratory* Testosterone Level Total 09/08/24 * Testosterone Level Total 04/06/25 [facility] evaluation + Plan note Future Appointments Appointment Date:02/14/2025 08:00:00 AM Scheduled Provider: Location:[facility] Appointment Type:URO Nurse Visit Appointment Date:04/25/2025 08:00:00 AM Scheduled Provider: Location:[facility] Appointment Type:URO Nurse Visit Appointment Date:05/02/2025 08:45:00 AM Scheduled Provider:Lety Gonzalez MD Location:[facility] Appointment Type:URO Office Visit Future Scheduled Tests Laboratory* Testosterone Level Total 09/08/24 * Testosterone Level Total 04/06/25 [facility] evaluation + Plan note Future Appointments Appointment Date:04/25/2025 08:00:00 AM Scheduled Provider: Location:[facility] Appointment Type:URO Nurse Visit Appointment Date:05/02/2025 08:45:00 AM Scheduled Provider:Lety Gonzalez MD Location:[facility] Appointment Type:URO Office Visit Future Scheduled Tests Laboratory* Testosterone Level Total 09/08/24 * Testosterone Level Total 04/06/25 [facility] evaluation + Plan note Future Appointments Appointment Date:03/07/2025 08:00:00 AM Scheduled Provider: Location:[facility] Appointment Type:URO Nurse Visit Appointment Date:03/21/2025 08:00:00 AM Scheduled Provider: Location:[facility] Appointment Type:URO Nurse Visit Appointment Date:04/04/2025 08:00:00 AM Scheduled Provider: Location:[facility] Appointment Type:URO Nurse Visit Appointment Date:04/25/2025 08:00:00 AM Scheduled Provider: Location:[facility] Appointment Type:URO Nurse Visit Appointment Date:05/02/2025 08:45:00 AM Scheduled Provider:Lety Gonzalez MD Location:[facility] Appointment Type:URO Office Visit Future Scheduled Tests Laboratory* Testosterone Level Total 09/08/24 * Testosterone Level Total 04/06/25 [facility] evaluation + Plan note Future Appointments Appointment Date:03/21/2025 08:00:00 AM Scheduled Provider: Location:[facility] Appointment Type:URO Nurse Visit Appointment Date:04/04/2025 08:00:00 AM Scheduled Provider: Location:[facility] Appointment Type:URO Nurse Visit Appointment Date:04/25/2025 08:00:00 AM Scheduled Provider: Location:[facility] Appointment Type:URO Nurse Visit Appointment Date:05/02/2025 11:00:00 AM Scheduled Provider:Lety Gonzalez MD Location:[facility] Appointment Type:URO Office Visit Future Scheduled Tests Laboratory* PSA Screen, Total 04/15/25 * Hematocrit 04/15/25 * Testosterone Level Total 09/08/24 * Testosterone Level Total 04/06/25 [facility] evaluation + Plan note Future Appointments Appointment Date:04/04/2025 08:00:00 AM Scheduled Provider: Location:[facility] Appointment Type:URO Nurse Visit Appointment Date:04/25/2025 08:00:00 AM Scheduled Provider: Location:[facility] Appointment Type:URO Nurse Visit Appointment Date:05/02/2025 11:00:00 AM Scheduled Provider:Lety Gonzalez MD Location:[facility] Appointment Type:URO Office Visit Future Scheduled Tests Laboratory* PSA Screen, Total 04/15/25 * Hematocrit 04/15/25 * Testosterone Level Total 09/08/24 * Testosterone Level Total 04/06/25 [facility] evaluation + Plan note Future Appointments Appointment Date:04/18/2025 08:00:00 AM Scheduled Provider: Location:[facility] Appointment Type:URO Nurse Visit Appointment Date:04/25/2025 08:00:00 AM Scheduled Provider: Location:[facility] Appointment Type:URO Nurse Visit Appointment Date:05/02/2025 11:00:00 AM Scheduled Provider:Lety Gonzalez MD Location:[facility] Appointment Type:URO Office Visit Future Scheduled Tests Laboratory* PSA Screen, Total 04/15/25 * Hematocrit 04/15/25 * Testosterone Level Total 09/08/24 * Testosterone Level Total 04/06/25 [facility] evaluation + Plan note Future Appointments Appointment Date:04/25/2025 08:00:00 AM Scheduled Provider: Location:[facility] Appointment Type:URO Nurse Visit Appointment Date:05/02/2025 11:00:00 AM Scheduled Provider:Lety Gonzalez MD Location:[facility] Appointment Type:URO Office Visit Appointment Date:05/16/2025 08:00:00 AM Scheduled Provider: Location:[facility] Appointment Type:URO Nurse Visit Appointment Date:05/30/2025 08:00:00 AM Scheduled Provider: Location:[facility] Appointment Type:URO Nurse Visit Appointment Date:06/13/2025 08:00:00 AM Scheduled Provider: Location:[facility] Appointment Type:URO Nurse Visit Appointment Date:06/27/2025 08:30:00 AM Scheduled Provider: Location:[facility] Appointment Type:URO Nurse Visit Future Scheduled Tests Laboratory* PSA Screen, Total 04/15/25 * Hematocrit 04/15/25 * Testosterone Level Total 09/08/24 * Testosterone Level Total 04/06/25 [facility] evaluation + Plan note Future Appointments Appointment Date:05/02/2025 11:00:00 AM Scheduled Provider:Lety Gonzalez MD Location:[facility] Appointment Type:URO Office Visit Appointment Date:05/16/2025 08:00:00 AM Scheduled Provider: Location:[facility] Appointment Type:URO Nurse Visit Appointment Date:05/30/2025 08:00:00 AM Scheduled Provider: Location:[facility] Appointment Type:URO Nurse Visit Appointment Date:06/13/2025 08:00:00 AM Scheduled Provider: Location:[facility] Appointment Type:URO Nurse Visit Appointment Date:06/27/2025 08:30:00 AM Scheduled Provider: Location:[facility] Appointment Type:URO Nurse Visit Future Scheduled Tests Laboratory* Testosterone Level Total 09/08/24 [facility] evaluation + Plan note Future Appointments Appointment Date:05/16/2025 08:00:00 AM Scheduled Provider: Location:[facility] Appointment Type:URO Nurse Visit Appointment Date:05/30/2025 08:00:00 AM Scheduled Provider: Location:[facility] Appointment Type:URO Nurse Visit Appointment Date:06/13/2025 08:00:00 AM Scheduled Provider: Location:[facility] Appointment Type:URO Nurse Visit Appointment Date:06/27/2025 08:30:00 AM Scheduled Provider: Location:[facility] Appointment Type:URO Nurse Visit Appointment Date:05/01/2026 08:00:00 AM Scheduled Provider:Lety Gonzalez MD Location:[facility] Appointment Type:URO Office Visit Diagnostic Tests Pending * Testosterone Level Total 05/02/25 * Hematocrit 05/02/25 * PSA Total 05/02/25 Future Scheduled Tests Laboratory* Testosterone Level Total 09/08/24 [facility] evaluation + Plan note Future Appointments Appointment Date:05/30/2025 08:00:00 AM Scheduled Provider: Location[facility] Appointment Type:URO Nurse Visit Appointment Date:06/13/2025 08:00:00 AM Scheduled Provider: Location:[facility] Appointment Type:URO Nurse Visit Appointment Date:06/27/2025 08:30:00 AM Scheduled Provider: Location:[facility] Appointment Type:URO Nurse Visit Appointment Date:05/01/2026 08:00:00 AM Scheduled Provider:Lety Gonzalez MD Location:[facility] Appointment Type:URO Office Visit Future Scheduled Tests Laboratory* Testosterone Level Total 09/08/24 [facility] evaluation + Plan note Future Appointments Appointment Date:06/13/2025 08:00:00 AM Scheduled Provider[facility] Nurse Visit Appointment Date:06/27/2025 08:30:00 AM Scheduled Provider: Location:[facility] Appointment Type:URO Nurse Visit Appointment Date:05/01/2026 08:00:00 AM Scheduled Provider:Lety Gonzalez MD Location:[facility] Appointment Type:URO Office Visit Future Scheduled Tests Laboratory* Testosterone Level Total 09/08/24 [facility] evaluation + Plan note Future Appointments Appointment Date:06/27/2025 08:30:00 AM Scheduled Provider: Location:[facility] Appointment Type:URO Nurse Visit Appointment Date:07/11/2025 08:00:00 AM Scheduled Provider: [facility] Type[facility] Nurse Visit Appointment Date:07/25/2025 08:00:00 AM Scheduled Provider: Location:[facility] Appointment Type:URO Nurse Visit Appointment Date:05/01/2026 08:00:00 AM Scheduled Provider:Lety Gonzalez MD Location:[facility] Appointment Type:URO Office Visit Future Scheduled Tests Laboratory* Testosterone Level Total 09/08/24 [facility] evaluation + Plan note Future Appointments Appointment Date:07/11/2025 08:00:00 AM Scheduled Provider: [facility] Type:[facility]O Nurse Visit Appointment Date:07/25/2025 08:00:00 AM Scheduled Provider: [facility] Type:URO Nurse Visit Appointment Date:05/01/2026 08:00:00 AM Scheduled Provider:Lety Gonzalez MD Location:[facility] Appointment Type:URO Office Visit Future Scheduled Tests Laboratory* Testosterone Level Total 09/08/24 [facility] evaluation noteNo [employer] Other Evaluation note* Diagnosis Onset Date Resolution Status CAD (coronary artery disease) acuteDiabetesacuteGERD (gastroesophageal reflux disease)acuteHypertensionacute Screening for colon canceracuteScreening PSA (prostate specific antigen)acute [facility] Work Phone: Evaluation note* Diagnosis Onset Date Resolution Status CAD (coronary artery disease) acuteDiabetesacuteGERD (gastroesophageal reflux disease)acuteHypertensionacute Screening for colon canceracuteScreening PSA (prostate specific antigen)acute FatigueacuteHypertensionacuteType II diabetes mellitusacute [facility] Work Phone: Evaluation note* Diagnosis Onset Date Resolution Status Claudication acuteFatigueacuteHypertensionacuteType II diabetes mellitusacute [facility] Work Phone: Evaluation note* Diagnosis Onset Date Resolution Status Claudication acuteFatigueacuteHypertensionacuteType II diabetes mellitusacuteBilateral lower extremity edemaacuteHemosiderin pigmentation of lower extremity due to varicose veinsacuteObesityacuteSymptomatic varicose veins of both lower extremitiesacute Wound of footacute [facility] Work Phone: Evaluation note* Diagnosis Foot ulcer, left, with fat layer exposed ([facility])- Primary Diabetes 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 polyneuropathy, unspecified whether group home insulin use ([facility]) Foot ulcer, right, with fat layer exposed ([facility]) [facility]* Diagnosis Onset Date Resolution Status Bilateral lower extremity edema acuteHemosiderin pigmentation of lower extremity due to varicose veinsacute ObesityacuteSymptomatic varicose veins of both lower extremitiesacuteWound of footacuteCAD (coronary artery disease)acuteDiabetic foot ulceracuteGERD (gastroesophageal reflux disease)acuteHemosiderin pigmentation of lower extremity due to varicose veinsacuteHypertensionacuteObesityacuteType II diabetes mellitusacute [facility] Work Phone: Evaluation note* Diagnosis Diabetes 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 polyneuropathy, unspecified whether group home insulin use (CMS/HCC)- Primary Foot ulcer, right, with fat layer exposed (CMS/HCC) Foot ulcer, left, with fat layer exposed (CMS/HCC) PVD (peripheral vascular disease) (CMS/HCC) Unspecified peripheral vascular disease documented in this encounter [facility]* Diagnosis Diabetes 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 polyneuropathy, 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 terminal 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 (CMS/HCC)- Primary Foot ulcer, right, with fat layer exposed (CMS/HCC) documented in this encounter [facility]* Diagnosis Diabetes 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 polyneuropathy, unspecified whether group home insulin use (CMS/HCC)- Primary Foot ulcer, right, with fat layer exposed (CMS/HCC) Foot ulcer, left, with fat layer exposed (CMS/HCC) documented in this encounter [facility]* Diagnosis Xerosis cutis- Primary Other specified disease of sebaceous glands Skin fissure Other specified disorder of skin Diabetes 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 polyneuropathy, unspecified whether group home insulin use (CMS/HCC) Foot ulcer, right, with fat layer exposed (CMS/HCC) PVD (peripheral vascular disease) (CMS/HCC) Unspecified peripheral vascular disease documented in this encounter [facility]* Diagnosis Foot ulcer, right, with fat layer exposed (CMS/HCC)- Primary Xerosis cutis Other specified disease of sebaceous glands Skin fissure Other specified disorder of skin Diabetes 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 polyneuropathy, unspecified whether group home insulin use (CMS/HCC) PVD (peripheral vascular disease) ([facility]/HCC) Unspecified peripheral vascular disease documented in this encounter [facility]* Diagnosis Xerosis cutis- Primary Other specified disease of sebaceous glands Skin fissure Other specified disorder of skin PVD (peripheral vascular disease) (CMS/HCC) Unspecified peripheral vascular disease Diabetes 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 polyneuropathy, unspecified whether group home insulin use (CMS/HCC) Foot ulcer, right, with fat layer exposed (CMS/HCC) documented in this encounter [facility]* Diagnosis Diabetes 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 polyneuropathy, unspecified whether group home insulin use ([facility])- Primary Foot ulcer, right, with fat layer exposed ([facility]) PVD (peripheral vascular disease) [place] Unspecified peripheral vascular disease documented in this encounter [facility]* Diagnosis Diabetes 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 polyneuropathy, 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 terminal 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 ([facility])- Primary Foot ulcer, right, with fat layer exposed ([facility]) PVD (peripheral vascular disease) [place] Unspecified peripheral vascular disease Xerosis cutis Other specified disease of sebaceous glands documented in this encounter [facility]* Diagnosis Small bowel obstruction ([facility])- Primary Unspecified intestinal obstruction JAM (obstructive sleep apnea) Obstructive sleep apnea (adult) (pediatric) Small bowel obstruction ([facility]) Unspecified intestinal obstruction Primary hypertension Unspecified essential hypertension JAM (obstructive sleep apnea) Obstructive sleep apnea (adult) (pediatric) Hypertension Unspecified essential hypertension DM2 (diabetes mellitus, type 2) ([facility]) CAD (coronary artery disease) Coronary atherosclerosis of unspecified type of vessel, [place] or graft documented in [facility] encounter [facility]* Diagnosis Onset Date Resolution Status Admit Date CAD (coronary artery disease) acuteMarch 2024 9:18amHyperlipidemiaacuteMarch 2024 9:18am HypertensionacuteMarch 2024 9:18amType II diabetes mellitusacuteMarch 2024 9:18am [facility] Work Phone: Evaluation noteNo assessment information available [facility] Work Phone: Evaluation note* Diagnosis Atherosclerosis of [place] coronary artery of [place] heart without angina pectoris- Primary Essential hypertension Unspecified essential hypertension Mixed hyperlipidemia Type 2 diabetes mellitus without complication, without long-term current use of insulin (Multi) Obstructive sleep apnea Obstructive sleep apnea (adult) (pediatric) Acute combined systolic and diastolic heart failure (Multi) Acute combined systolic and diastolic heart failure BMI 50.0-59.9, adult (Multi) documented in this encounter [facility] Work Phone: History general Narrative - Reported* Type Description Date Medical History 2nd opinion for vein surgery Medical HistoryHTNMedical HistoryDMMedical HistoryCAD with prior MIMedical HistoryCVIMedical HistoryDepressionMedical HistoryEdema legMedical History Diabetic polyneuropathy associated with other specified diabetes mellitus Surgical Historytoe surgery/ right foot great toeSurgical Historytonsillectomy Surgical Historyheart stent 2Hospitalization HistorytonsillectomyHospitalization Historypneumonia [place] Other Hospital course Narrative No data available for this section [facility] Hospital Discharge instructions No data available for this section [facility] Hospital Discharge instructionsAmbulatory Orders* Referral to Gastroenterology Time Frame: 11/30/23, Location: None [facility] Work Phone: Hospital Discharge instructionsNot on filedocumented in this encounterProLawrence [facility] SystemInstructionsNot on filedocumented in this encounterProSamaritan [facility] SystemProgress note No data available for this section [facility] reason for referral (narrative)No reason for referral information availableC[facility] Work Phone: Reason for visit Narrative* Auth/Cert (Routine) SpecialtyDiagnoses / ProceduresReferred By ContactReferred To Contact Diagnoses Small bowel obstruction (CMS-HCC) Arrhythmia Small bowel obstruction Adrienne Rodriguez MD [address] [address] Phone: tel: fax: Referral IDStatusReasonStart DateExpiration DateVisits RequestedVisits [id number] [facility] [employer] Summary Purpose Family History Unknown Family Member [...] Advance Directives No May 10:55am Date ActivatedDate [id number]/18/2024 4:09 AM07/28/2024 6:17 PM Chief Complaint * [...] To ContactRadiology Diagnoses PVD (peripheral vascular disease) ([facility]) Procedures Vascular US lower extremity arterial Doppler complete Gray Cancino DPM [address] [id number] Referral IDStatusReasonStart DateExpiration DateVisits RequestedVisits [id number] Review Perform Procedure Additional Source Comments (unrecognized [...] section and content) DATE CREATED AUTHOR 08/14/2018 [facility] DATE CREATED AUTHOR AUTHOR'S ORGANIZ ATION 12/24/2022 [facility] DATE CREATED AUTHOR AUTHOR'S ORGANIZ ATION 06/30/2023 [facility] DATE CREATED AUTHOR AUTHOR'S ORGANIZ ATION 03/03/2024 [facility] DATE CREATED AUTHOR AUTHOR'S ORGANIZ ATION 03/04/2024 [facility] DATE CREATED AUTHOR AUTHOR'S ORGANIZ ATION 03/09/2024 [facility] DATE CREATED AUTHOR AUTHOR'S ORGANIZ ATION 03/10/2024 [facility] DATE CREATED AUTHOR AUTHOR'S ORGANIZ ATION 07/15/2024 [facility] DATE CREATED AUTHOR AUTHOR'S ORGANIZ ATION 08/04/2024 [facility] DATE CREATED AUTHOR AUTHOR'S ORGANIZ ATION 09/29/2024 [facility] DATE CREATED AUTHOR AUTHOR'S ORGANIZ ATION 12/23/2024 [facility] DATE CREATED AUTHOR AUTHOR'S ORGANIZ ATION 04/27/2025 [facility] DATE CREATED AUTHOR AUTHOR'S ORGANIZ ATION 06/28/2025 [facility] DATE CREATED AUTHOR AUTHOR'S ORGANIZ ATION 07/12/2025 [facility] DATE CREATED AUTHOR AUTHOR'S ORGANIZ ATION 07/17/2025 [facility] Answering Service Telephone Operator Team (unrecognized sect ion and content) Team [...] DateEnd Date Luis Jeffrey MD [address] [facility] [place] [phone] [facility] - [facility]05/04/24Team MemberRelationshipSpecialtyStart DateEnd Date Luis Jeffrey MD [address] [facility] [place] [phone] PCP - GeneralFami Medicine05/04/24 Team Status: Inactive Member Role Status Dates Luis Jeffrey MD Primary Care Provide r, Attending Provider Active Start: June 14, 2024 End: June 14, 2024Team MemberRelationshipSpecialtyStart DateEnd Date Luis Jeffrey MD [address] [facility] [place] [phone] PCP - GeneralFami Medicine05/04/24Team MemberRelationshipSpecialtyStart DateEnd Date Luis Jeffrey MD [address] [facility] [place] [phone] PCP - GeneralFami Medicine05/04/24Team MemberRelationshipSpecialtyStart DateEnd Date Luis Jeffrey MD [address] [facility] [place] [phone] PCP - GeneralFamily Medicine05/04/24Team MemberRelationshipSpecialtyStart DateEnd Date Luis Jeffrey MD [address] [facility] [place] [phone] PCP - [facility] Medicine05/04/24Team MemberRelationshipSpecialtyStart DateEnd Date Luis Jeffrey MD [address] [facility] [place] [phone] PCP - [facility]05/04/24Team MemberRelationshipSpecialtyStart DateEnd Date Luis Jeffrey MD [address] [facility] [place] [phone] PCP - [facility]05/04/24Team MemberRelationshipSpecialtyStart DateEnd Date Luis Jeffrey MD [address] [facility] [place] [address] PCP - [facility] Medicine05/04/24 Team Status: Inactive Member Role Status [...] DateEnd Date Luis Jeffrey MD [address] [facility] [place] [address] PCP - General12/22/22 REASON FOR VISIT (unrecogniz ed section and content) ReasonCommentsFollow-upBl ulcer checkReasonCommentsFollow-uplesionsReason CommentsPost-op1st post op, B/L graftReasonCommentsFoot UlcerRt ft ulcerReason CommentsFoot UlcerRt GT toe ulcerReasonCommentsFoot Wxxuk0kr ulcer F/UReason CommentsFoot PainReasonCommentsFollow-upFollow up bl ulcerReasonComments Follow-up1WK RT ULCERReasonCommentsFollow-up1wk ulcerReasonOnset DateComments Ipvmdsn0307/24/2024Small bowel obstruction Goals (unrecognized section and content) [...] met) * 0800 (Not Given - Provider: lBaire Aldana LPN - Reason: Order parameters not [...] First dose (after last modification) on Wed07/25/24 [id number], Hold for HR <60 bpm or SBP [...] BE BASED ON THE PRIMARY CLINICAL RECORDS. [facility] [employer] [facility]. provides no warranty or guarantee of the accuracy or completeness of information in this document.
[2025-09-01] MEDS: 0.9 % SODIUM CHLORIDE 1,000 ML 150 ML IV ×2 (16:14→23:00)
[2025-09-01] MEDS: SENNOSIDES/DOCUSATE SODIUM 1 TAB TABLET PO (16:14)
[2025-09-01] MEDS: INSULIN ASPART 300 UNIT/3 ML PEN SUBQ ×2 (16:34→21:04)
[2025-09-01] MEDS: CLINDAMYCIN PHOSPHATE/D5W 600 MG/50 ML PREMIX 100 MG IV (17:21)
[2025-09-01] MEDS: ENOXAPARIN SODIUM 40 MG/0.4 ML SYRINGE SUBQ (20:28)
[2025-09-01 21:07] LABS: Potassium 5.3 mmol/L (3.5-5.1)
[2025-09-01 22:26] LABS: SARS-CoV-2 Ag NEGATIVE (NEGATIVE)
[2025-09-02] VITALS (25 sets, daily range): BP systolic 114–148; BP diastolic 70–79; PULSE 74–96; RESP 12–14; TEMP 36.3–36.9; O2SAT 92–99
[2025-09-02] MEDS: CLINDAMYCIN PHOSPHATE/D5W 600 MG/50 ML PREMIX 100 MG IV ×2 (01:11→10:06)
[2025-09-02 06:00] LABS: Hematocrit 44.2 % (42.0-54.0); Hemoglobin 14.5 g/dL (14.0-18.0); Immature Granulocytes Abs Auto 0.08 10^3/uL (0.00-0.03); Immature Granulocytes Pct Auto 0.5 % (0.0-0.5); Lymphocytes Absolute Auto 0.6 10^3/uL (1.2-3.8); Mean Corpuscular HGB Conc 32.8 g/dL (29.9-35.2); Mean Corpuscular Hemoglobin 26.3 pg (25.9-34.0); Mean Corpuscular Volume 80.1 fL (80.0-94.0); Platelet Count 183 10^3/uL (150-450); Red Blood Count 5.52 10^6/uL (4.70-6.10); White Blood Count 15.8 10^3/uL (4.0-11.0)
--- NOTE | 2025-09-02 06:00 | ECG_ITS ---
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 Measurements Intervals Shafter Rate: 89 P: -8 WY: 192 QRS: -30 QRSD: 108 T: 80 QT: 336 QTc: 409 Interpretive Statements SINUS RHYTHM SEPTAL MYOCARDIAL INFARCTION [40+ ms Q WAVE IN V1/V2], OF INDETERMINATE AGE Abnormal ECG Compared to ECG 09/01/2025 13:47:46 Sinus tachycardia no longer present Ventricular premature complex(es) no longer present Left-axis deviation no longer present Myocardial infarct finding still present Electronically Signed On 09-02-2025 13:30:59 EST by SIMONE ZARATE M.D.
[2025-09-02 06:12] LABS: Alanine Aminotransferase 21 U/L (16-63); Albumin Globulin Ratio 0.8; Albumin Level 3.1 g/dL (3.4-5.0); Alkaline Phosphatase 67 U/L (46-116); Anion Gap 8.0; Aspartate Amino Transferase 24 U/L (15-37); Blood Urea Nitrogen 22.0 mg/dL (7.0-18.0); Calcium 8.0 mg/dL (8.5-10.1); Carbon Dioxide 30.2 mmol/L (21.0-32.0); Chloride 98 mmol/L (98-107); Estimated GFR (African America >60 (>=60 mL/min/1.73m^2); Estimated GFR (Non-African Ame >60 (>=60 mL/min/1.73m^2); Globulin 3.7 g/dL; Glucose 126 mg/dL (74-106); Magnesium 1.9 mg/dL (1.8-2.4); Potassium 4.2 mmol/L (3.5-5.1); Sodium 132 mmol/L (136-145); Total Protein 6.8 g/dL (6.4-8.2)
[2025-09-02] MEDS: VANCOMYCIN HCL 2,000 MG in 0.9 % SODIUM CHLORIDE 500 ML 250 MG IV (08:22)
[2025-09-02] MEDS: SENNOSIDES/DOCUSATE SODIUM 1 TAB TABLET PO (09:45)
[2025-09-02] MEDS: ENOXAPARIN SODIUM 40 MG/0.4 ML SYRINGE SUBQ ×2 (09:45→20:19)
[2025-09-02] MEDS: GLIPIZIDE 5 MG TABLET PO ×2 (11:15→17:11)
[2025-09-02] MEDS: CARVEDILOL 12.5 MG TABLET PO ×2 (11:15→20:19)
[2025-09-02] MEDS: AMLODIPINE BESYLATE 5 MG TABLET PO (11:15)
[2025-09-02 11:20] LABS: Thyroid Stimulating Hormone 0.542 uIU/mL (0.358-3.740)
[2025-09-02 11:48] LABS: Glucose Urine UA >=1000 mg/dL (NEGATIVE)
[2025-09-02 11:55] LABS: Cast Seen? NONE SEEN #/LPF (NONE SEEN); Crystals Seen? None Seen #/HPF (None Seen)
--- NOTE | 2025-09-02 12:09 | PM.PN ---
Progress Note: Subjective Subjective Interval history: No new symptoms since yesterday. Persistent fatigue. Patient is requiring 3 L of oxygen however he denies any active or acute shortness of breath. No chest or abdominal pain. Exam Narrative Exam Narrative: Morbidly obese. Mild respiratory distress. Saturation drops down to 88% requiring 3 L of oxygen to keep it above 92%. Afebrile. Neck is supple. Chest exam is clear. Heart is regular. Significant increased abdominal girth therefore clinically I could not exclude the possibility of intra-abdominal mass organomegaly. +1 pitting edema in both legs. Chronic venous stasis, hyperpigmentation and mild erythema involving both legs from the mid berkowitz and down to the foot. Patient has at least stage II ulceration measuring about half inch in diameter involving the lateral aspect of the right distal metatarsal. No drainage Faint dorsalis pedis pulse. Constitutional Vital Signs, click to edit/add: Last Vital Signs Temp 98.5 F 09/02/25 08:00 Pulse 88 09/02/25 09:44 Resp 20 09/02/25 08:00 BP 148/78 H 09/02/25 08:00 Pulse Ox 93 L 09/02/25 09:22 O2 Del Method Nasal Cannula 09/02/25 11:21 O2 Flow Rate 3 09/02/25 09:22 Progress Note: Objective Labs Labs: Short CBC 09/01/25 09/02/25 Range/Units 12:50 05:39 WBC 18.2 H 15.8 H (4.0-11.0) 10^3/uL Hgb 15.7 14.5 (14.0-18.0) g/dL Hct 47.6 44.2 (42.0-54.0) % Plt Count 215 183 (150-450) 10^3/uL BMP 09/01/25 09/01/25 09/02/25 12:50 20:52 05:39 Sodium 133 L 132 L Potassium 5.4 H 5.3 H 4.2 Chloride 97 L 98 Carbon Dioxide 30.0 30.2 BUN 21.0 H 22.0 H Creatinine 1.30 1.20 Glucose 248 H 126 H Calcium 8.9 8.0 L Liver Function 09/02/25 Range/Units 05:39 Total Bilirubin 1.5 H (0.2-1.0) mg/dL AST 24 (15-37) U/L ALT 21 (16-63) U/L Alkaline Phosphatase 67 (46-116) U/L Albumin 3.1 L (3.4-5.0) g/dL Urine // Range/Units 11:30 Urine Color Lt. yellow (YELLOW) Urine Clarity Clear (CLEAR) Urine pH 5.5 (5.0-9.0) Ur Specific [place] 1.025 (1.005-1.025) Urine Protein Negative (NEG/TRACE) mg/dL Urine Glucose (UA) >=1000 A (NEGATIVE) mg/dL Progress Note: A&P Assessment and Plan (1) Cellulitis: (2) Sepsis: (3) Hypoxic respiratory failure: Plan Sepsis present on admission. Elevated white count at 18,000, elevated CRP at 2.1 Suspected source is right infected foot ulcer with foot cellulitis. Could not exclude the possibility of urinary tract infection or developing lung infection. Please refer to initial sepsis evaluation and treatment initiated in the emergency room department. Continue IV fluid infusion. Continue antibiotic. Broad-spectrum Requested UA. Lactic acid is normal. Blood cultures pending. Leg foot cellulitis, stage 2 at least ulcer involving the lateral aspect of the right fifth distal metatarsal Bilateral venous stasis. Could not exclude venous thrombosis Faint dorsalis pedis pulse. Rule out peripheral vascular disease Broad-spectrum antibiotic Blood cultures pending. Faint dorsalis pedis pulse. Requested arterial study. Edema in both legs requested venous study rule out DVT The ulcer is dry and the entire foot is dirty therefore could not get wound culture May need additional imaging of the foot such as CT or MRI Requested podiatry consultation. Defer further needed diagnostic and therapeutic intervention relative to foot infection and the timing of these intervention to be addressed by ferryboat operator. Hypoxic respiratory failure. Obstructive sleep apnea. Patient is not compliant with CPAP machine at home according to him and his . His now is using the CPAP. Prominent right hilum, cannot exclude hilar mass Suspect underlying pulmonary hypertension, restrictive and obstructive pulmonary disease Patient denies feeling short of breath therefore I suspect that his hypoxemia is chronic. Patient is morbidly obese with significant increased abdominal girth suspecting restrictive lung disease. Patient had smoked for 20 years in the past. Suspect underlying obstructive pulmonary disease Patient lives a sedentary life. He has bilateral legs swelling. Could not exclude the possibility of PE Requested D-dimer. If positive proceed with CTA of the chest. If negative proceed with a CT chest with contrast to rule out hilar mass. Venous study rule out DVT. Oxygen supplementation. Ordering CPAP to be used while patient in the hospital. Requested echocardiogram rule out pulmonary hypertension. Arrange for patient to have CPAP machine at home as his machine had been recalibrated to be used by his . Diabetes with hyperglycemia, recent A1c completed 2 months ago it was 10.2. Other has not taken his medications or his medications are suboptimal. Started patient on sliding scale coverage. Started patient on long and meal insulin. Titrate to keep blood sugar between 125 and 180. Diet and diabetes. Hypertension Resume preadmission home medications Hyperkalemia Peaked T waves. Patient had received 1 dose of Lokelma. Started him on insulin Avoid spironolactone. Potassium level is down to normal. Morbid obesity. Patient weighs 155 kg and the BMI is 51. Diet, exercise and lifestyle modification to be addressed in the outpatient setting. DVT prophylaxis Due to his weight, 150 kg I would put him on Lovenox 40 mg subcutaneously twice a day. Chronic, subacute medical conditions not listed above, abnormal labs and imaging, incidental findings seen on labs and or imaging. These would need to be addressed. Could be addressed later on or in the outpatient setting by PCP collaboration with other needed outpatient providers when time and condition are appropriate. I discussed case with his at the bedside.
[2025-09-02 12:50] LABS: PO2 ABG 82.2 mmHg (80.0-100.0)
[2025-09-02 12:51] LABS: Allen Test POSITIVE (POSITIVE); HCO3 ABG 24.5 mmol/L (22.0-26.0); Liters per Minute 3; O2 Mode NC; Oxygen Saturation ABG 97.0 %; Puncture Site RR
[2025-09-02 12:53] LABS: ABG PCO2 50.6 mmHg (35.0-45.0)
[2025-09-02] MEDS: IMIPENEM/CILASTATIN SODIUM 1,000 MG in 0.9 % SODIUM CHLORIDE 250 ML 250 MG IV (13:24)
[2025-09-02] MEDS: 0.9 % SODIUM CHLORIDE 250 ML 10 ML IV (13:24)
--- NOTE | 2025-09-02 16:02 | CT_ITS ---
The [address] [address] Patient Name: JOHNATHAN AMBROSIO MRN: [id number] date: 1960 Sex: M Assigned Patient Location: [place] Current Patient Location: [place] Accession/Order Number: [id number] Exam Date: 09/02/2025 16:40 Report Date: 09/02/2025 17:27 At the request of: EVELIO BARNETT MD Procedure: CT chest w con CT Chest with contrast TECHNIQUE: Axial imaging with 2-D reconstruction. The CT exam was performed using one or more the following dose reduction techniques: Automated exposure control, adjustment of the MA and/or Kv according to patient size, or use of the iterative reconstruction technique. History: Hypoxemia. Shortness of breath. COMPARISON: CT of the abdomen 07/23/2024 THYROID: Unremarkable TRACHEA AND BRONCHI: Patent ESOPHAGUS: Unremarkable. HEART: Within normal limits PERICARDIAL EFFUSION: Trace CORONARY ARTERY CALCIFICATION: Present MEDIASTINUM: No adenopathy. No pneumoperitoneum. No mediastinal hematoma. PULMONARY JESUS: No hilar mass or adenopathy is seen. THORACIC AORTA Unremarkable LUNG NODULE None LUNGS: Lungs are clear PLEURAL EFFUSION: None PNEUMOTHORAX: No pneumothorax seen. CHEST WALL: No abnormality AXILLA:Unremarkable BONY STRUCTURES Intact UPPER ABDOMEN: Stable 2.5 cm hypodensity dome of the liver likely representing hemangioma. 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 Mild atelectasis. No hilar mass. Coronary artery calcification Impression dictated by: Nathaniel Mendosa M.D. 09/02/2025 5:27 PM Dictation Location: [employer] Electronically authenticated by: [id number] Y Date: 09/02/2025 17:27
[2025-09-02 17:11] LABS: PO2 ABG 72.0 mmHg (80.0-100.0)
[2025-09-02] MEDS: INSULIN ASPART 300 UNIT/3 ML PEN SUBQ ×2 (17:11→21:15)
[2025-09-02 17:12] LABS: Allen Test POSITIVE (POSITIVE); HCO3 ABG 25.4 mmol/L (22.0-26.0); Liters per Minute 25; O2 Mode VAPOTHERM; Oxygen Saturation ABG 95.2 %
[2025-09-02 17:13] LABS: ABG PCO2 54.3 mmHg (35.0-45.0); Puncture Site LR
--- NOTE | 2025-09-02 18:28 | PC.NURSE ---
Sent a tiger text to Dr. Sifuentes, 218 new ABG: ph 7.294 pco2 54.3 His response, Increase to 55 L and ABG at 9. highest liter flow is 40. i can increase fio2 . Dr. Sifuentes then called with orders to put patient on bipap at 16/8 and a new ABG at 2100.. Elementary Math Tutor called respiratory and informed her of the order. Almaz from respiratory came up and attempted to put patient on bipap. Patient had the bipap mask on for a few seconds before taking it off and saying I can't do it, I feel like I am suffocating . Patient attempted the mask again and was not able to handle it. More Muse RN and handbook writer explained to the patient the reason for needing the bipap and the consequences of not wearing it.. we informed him that he will only get worse not wearing the bipap and the possibility of being intubated as the result. We also explained that it is his right to make his medical decisions of care and that if he does not want interventions done, he needs to make the decision on his code status. Patient called his to come up here so he can talk to her about which decision to make. When the arrived, handbook writer explained to the patient and what was previously discussed. After the patient and his talked, the patient decided he does want to be a full code. He agreed to keep trying the bipap a little at a time until he can handle it for longer periods of time. The patient is now currently on the bipap and he is doing well. is still at the bedside.
[2025-09-02] MEDS: IMIPENEM/CILASTATIN SODIUM 1,000 MG in 0.9 % SODIUM CHLORIDE 250 ML 200 MG IV (21:23)
[2025-09-02 22:13] LABS: ABG PCO2 48.1 mmHg (35.0-45.0); Allen Test POSITIVE (POSITIVE); BIPAP Pressure 16/8; HCO3 ABG 26.2 mmol/L (22.0-26.0); O2 Mode BIPAP; Oxygen Saturation ABG 98.4 %; PO2 ABG 93.2 mmHg (80.0-100.0); Puncture Site RR
[2025-09-03] VITALS (21 sets, daily range): BP systolic 116–142; BP diastolic 67–89; PULSE 66–891; RESP 14; TEMP 36.4–36.8; O2SAT 94–100
[2025-09-03] MEDS: IMIPENEM/CILASTATIN SODIUM 1,000 MG in 0.9 % SODIUM CHLORIDE 250 ML 200 MG IV (05:08)
[2025-09-03 05:51] LABS: Hematocrit 43.6 % (42.0-54.0); Hemoglobin 14.4 g/dL (14.0-18.0); Mean Corpuscular HGB Conc 33.0 g/dL (29.9-35.2); Mean Corpuscular Hemoglobin 26.4 pg (25.9-34.0); Mean Corpuscular Volume 79.9 fL (80.0-94.0); Platelet Count 171 10^3/uL (150-450); Red Blood Count 5.46 10^6/uL (4.70-6.10); White Blood Count 10.4 10^3/uL (4.0-11.0)
[2025-09-03 06:28] LABS: Alanine Aminotransferase 25 U/L (16-63); Albumin Globulin Ratio 0.8; Albumin Level 3.0 g/dL (3.4-5.0); Alkaline Phosphatase 70 U/L (46-116); Anion Gap 10.9; Aspartate Amino Transferase 28 U/L (15-37); Blood Urea Nitrogen 26.0 mg/dL (7.0-18.0); Calcium 8.4 mg/dL (8.5-10.1); Carbon Dioxide 28.8 mmol/L (21.0-32.0); Chloride 102 mmol/L (98-107); Estimated GFR (African America >60 (>=60 mL/min/1.73m^2); Estimated GFR (Non-African Ame 60 (>=60 mL/min/1.73m^2); Globulin 3.9 g/dL; Glucose 100 mg/dL (74-106); Potassium 4.7 mmol/L (3.5-5.1); Sodium 137 mmol/L (136-145); Total Protein 6.9 g/dL (6.4-8.2)
[2025-09-03] MEDS: AMLODIPINE BESYLATE 5 MG TABLET PO (08:26)
[2025-09-03] MEDS: CITALOPRAM HYDROBROMIDE 20 MG TABLET PO (08:26)
[2025-09-03] MEDS: PANTOPRAZOLE SODIUM 40 MG TABLET.DR PO (08:26)
[2025-09-03] MEDS: ASPIRIN 81 MG TABLET.DR 162 MG PO (08:26)
[2025-09-03] MEDS: ATORVASTATIN CALCIUM 20 MG TABLET PO (08:26)
[2025-09-03] MEDS: CARVEDILOL 12.5 MG TABLET PO ×2 (08:26→22:00)
[2025-09-03] MEDS: GLIPIZIDE 5 MG TABLET PO ×2 (08:27→17:51)
[2025-09-03] MEDS: LISINOPRIL 5 MG TABLET PO (08:27)
[2025-09-03] MEDS: ENOXAPARIN SODIUM 40 MG/0.4 ML SYRINGE SUBQ ×2 (08:27→21:59)
[2025-09-03] MEDS: SENNOSIDES/DOCUSATE SODIUM 1 TAB TABLET PO (08:27)
[2025-09-03] MEDS: VANCOMYCIN HCL 2,000 MG in 0.9 % SODIUM CHLORIDE 500 ML 250 MG IV (08:28)
--- NOTE | 2025-09-03 08:48 | PM.IMPN1 ---
Progress Note: A&P Assessment and Plan (1) Cellulitis: (2) Sepsis: (3) Hypoxic respiratory failure: Plan 09/03/25 - Leukocytosis continues to improve, 10.4 today however still on high flow nasal cannula, weaned to 3 L later in day but unclear etiology of hypoxia as CT scan negative for PE or acute pathology. Will follow-up echo for potential pulmonary hypertension. DVT ultrasound as well as bilateral DUSTIN, podiatry consultation pending. Continue broad-spectrum antibiotics follow-up blood cultures. From 09/02/25: Sepsis present on admission. Elevated white count at 18,000, elevated CRP at 2.1 Suspected source is right infected foot ulcer with foot cellulitis. Could not exclude the possibility of urinary tract infection or developing lung infection. Please refer to initial sepsis evaluation and treatment initiated in the emergency room department. Continue IV fluid infusion. Continue antibiotic. Broad-spectrum Requested UA. Lactic acid is normal. Blood cultures pending. Leg foot cellulitis, stage 2 at least ulcer involving the lateral aspect of the right fifth distal metatarsal Bilateral venous stasis. Could not exclude venous thrombosis Faint dorsalis pedis pulse. Rule out peripheral vascular disease Broad-spectrum antibiotic Blood cultures pending. Faint dorsalis pedis pulse. Requested arterial study. Edema in both legs requested venous study rule out DVT The ulcer is dry and the entire foot is dirty therefore could not get wound culture May need additional imaging of the foot such as CT or MRI Requested podiatry consultation. Defer further needed diagnostic and therapeutic intervention relative to foot infection and the timing of these intervention to be addressed by grease maker. Hypoxic respiratory failure. Obstructive sleep apnea. Patient is not compliant with CPAP machine at home according to him and his . His now is using the CPAP. Prominent right hilum, cannot exclude hilar mass Suspect underlying pulmonary hypertension, restrictive and obstructive pulmonary disease Patient denies feeling short of breath therefore I suspect that his hypoxemia is chronic. Patient is morbidly obese with significant increased abdominal girth suspecting restrictive lung disease. Patient had smoked for 20 years in the past. Suspect underlying obstructive pulmonary disease Patient lives a sedentary life. He has bilateral legs swelling. Could not exclude the possibility of PE Requested D-dimer. If positive proceed with CTA of the chest. If negative proceed with a CT chest with contrast to rule out hilar mass. Venous study rule out DVT. Oxygen supplementation. Ordering CPAP to be used while patient in the hospital. Requested echocardiogram rule out pulmonary hypertension. Arrange for patient to have CPAP machine at home as his machine had been recalibrated to be used by his . Diabetes with hyperglycemia, recent A1c completed 2 months ago it was 10.2. Other has not taken his medications or his medications are suboptimal. Started patient on sliding scale coverage. Started patient on long and meal insulin. Titrate to keep blood sugar between 125 and 180. Diet and diabetes. Hypertension Resume preadmission home medications Hyperkalemia Peaked T waves. Patient had received 1 dose of Lokelma. Started him on insulin Avoid spironolactone. Potassium level is down to normal. Morbid obesity. Patient weighs 155 kg and the BMI is 51. Diet, exercise and lifestyle modification to be addressed in the outpatient setting. DVT prophylaxis Due to his weight, 150 kg I would put him on Lovenox 40 mg subcutaneously twice a day. Chronic, subacute medical conditions not listed above, abnormal labs and imaging, incidental findings seen on labs and or imaging. These would need to be addressed. Could be addressed later on or in the outpatient setting by PCP collaboration with other needed outpatient providers when time and condition are appropriate. Internal Medicine - PN: Subj Subjective Interval history: Patient currently on high flow nasal cannula, no acute complaints at this time, awaiting podiatry evaluation. Exam Narrative Exam Narrative: General: cooperative and tired appearing Orientation: alert, awake and oriented x3 Head: normal to inspection Neck: normal visual inspection Cardio: no JVD, regular rate, regular rhythm Chest palpation & inspection: normal inspection of the chest Resp Effort & Inspection: distant breath sounds Abd: soft, non-tender, non-distended Extremities: RLE lateral foot ulcer, faint palpable DP pulse, non-palpable PT Constitutional Vital Signs, click to edit/add: Last Vital Signs Temp 97.6 F 09/03/25 04:00 Pulse 80 09/03/25 08:00 Resp 14 09/03/25 04:00 BP 140/84 09/03/25 04:00 Pulse Ox 99 09/03/25 04:36 O2 Del Method Vapotherm 09/03/25 05:25 O2 Flow Rate 40 09/03/25 05:25 FiO2 40 09/03/25 05:25 Internal Medicine - PN: Obj Da Labs Labs: Laboratory Results - last 24 hr 09/02/25 09/02/25 09/02/25 05:39 11:08 11:16 WBC RBC Hgb Hct MCV MCH MCHC RDW Plt Count MPV D-Dimer 0.54 Puncture Site ABG pH ABG pCO2 ABG pO2 ABG HCO3 ABG O2 Saturation ABG Base Excess [place] Test O2 Liters/Min FiO2 BiPAP Sodium Potassium Chloride Carbon Dioxide Anion Gap BUN Creatinine Est GFR ( Amer) Est GFR (Non-Af Amer) BUN/Creatinine Ratio Glucose Calcium Total Bilirubin AST ALT Alkaline Phosphatase C-Reactive Protein Total Protein Albumin Globulin Albumin/Globulin Ratio TSH 0.542 Urine Color Urine Clarity Urine pH Ur Specific [place] Urine Protein Urine Glucose (UA) Urine Ketones Urine Occult Blood Urine Nitrite Urine Bilirubin Urine Urobilinogen Ur Leukocyte Esterase Urine RBC Urine WBC Ur Squamous Epith Cells Urine Crystals Urine Bacteria Urine Casts Urine Mucus POC Glucose 120 H 09/02/25 09/02/25 09/02/25 11:30 11:48 16:23 WBC RBC Hgb Hct MCV MCH MCHC RDW Plt Count MPV D-Dimer Puncture Site Rr ABG pH 7.294 L* ABG pCO2 50.6 H* ABG pO2 82.2 ABG HCO3 24.5 ABG O2 Saturation 97.0 ABG Base Excess -2.0 [place] Test Positive O2 Liters/Min 3 FiO2 BiPAP Sodium Potassium Chloride Carbon Dioxide Anion Gap BUN Creatinine Est GFR ( Amer) Est GFR (Non-Af Amer) BUN/Creatinine Ratio Glucose Calcium Total Bilirubin AST ALT Alkaline Phosphatase C-Reactive Protein Total Protein Albumin Globulin Albumin/Globulin Ratio TSH Urine Color Lt. yellow Urine Clarity Clear Urine pH 5.5 Ur Specific [place] 1.025 Urine Protein Negative Urine Glucose (UA) >=1000 A Urine Ketones Trace A Urine Occult Blood Negative Urine Nitrite Negative Urine Bilirubin Negative Urine Urobilinogen 1.0 Ur Leukocyte Esterase Negative Urine RBC None seen Urine WBC None seen Ur Squamous Epith Cells Rare Urine Crystals None seen Urine Bacteria Trace A Urine Casts None seen Urine Mucus None seen POC Glucose 148 H 09/02/25 09/02/25 09/02/25 17:05 21:03 22:00 WBC RBC Hgb Hct MCV MCH MCHC RDW Plt Count MPV D-Dimer Puncture Site Lr Rr ABG pH 7.279 L* 7.344 L ABG pCO2 54.3 H* 48.1 H ABG pO2 72.0 L 93.2 ABG HCO3 25.4 26.2 H ABG O2 Saturation 95.2 98.4 ABG Base Excess -1.3 0.5 [place] Test Positive Positive O2 Liters/Min 25 FiO2 40 40 BiPAP 16/8 Sodium Potassium Chloride Carbon Dioxide Anion Gap BUN Creatinine Est GFR ( Amer) Est GFR (Non-Af Amer) BUN/Creatinine Ratio Glucose Calcium Total Bilirubin AST ALT Alkaline Phosphatase C-Reactive Protein Total Protein Albumin Globulin Albumin/Globulin Ratio TSH Urine Color Urine Clarity Urine pH Ur Specific [place] Urine Protein Urine Glucose (UA) Urine Ketones Urine Occult Blood Urine Nitrite Urine Bilirubin Urine Urobilinogen Ur Leukocyte Esterase Urine RBC Urine WBC Ur Squamous Epith Cells Urine Crystals Urine Bacteria Urine Casts Urine Mucus POC Glucose 186 H 09/03/25 05:02 WBC 10.4 RBC 5.46 Hgb 14.4 Hct 43.6 MCV 79.9 L MCH 26.4 MCHC 33.0 RDW 15.7 H Plt Count 171 MPV 11.0 D-Dimer Puncture Site ABG pH ABG pCO2 ABG pO2 ABG HCO3 ABG O2 Saturation ABG Base Excess [place] Test O2 Liters/Min FiO2 BiPAP Sodium 137 Potassium 4.7 Chloride 102 Carbon Dioxide 28.8 Anion Gap 10.9 BUN 26.0 H Creatinine 1.22 Est GFR ( Amer) >60 Est GFR (Non-Af Amer) 60 BUN/Creatinine Ratio 21.3 Glucose 100 Calcium 8.4 L Total Bilirubin 0.8 AST 28 ALT 25 Alkaline Phosphatase 70 C-Reactive Protein 21.44 H Total Protein 6.9 Albumin 3.0 L Globulin 3.9 Albumin/Globulin Ratio 0.8 TSH Urine Color Urine Clarity Urine pH Ur Specific [place] Urine Protein Urine Glucose (UA) Urine Ketones Urine Occult Blood Urine Nitrite Urine Bilirubin Urine Urobilinogen Ur Leukocyte Esterase Urine RBC Urine WBC Ur Squamous Epith Cells Urine Crystals Urine Bacteria Urine Casts Urine Mucus POC Glucose
--- NOTE | 2025-09-03 09:30 | CM.NOTE ---
Rounds made with Dr. Acosta, discussed diagnosis and plan of care. Dr. Morales will consult on pt today for further recommendations.
--- NOTE | 2025-09-03 11:17 | CA_ITS ---
Patient Name: JOHNATHAN AMBROSIO MR#: [id number] : 1960 Exam Date: 09/03/2025 Ordering Doctor: EVELIO BARNETT ECHOCARDIOGRAM REPORT PROCEDURE: CA ECHO DOPPLER COMPLETE INDICATIONS: Suspect P HTN and right-sided failure, diabetes, hypertension, [place], cardiac stents, sleep apnea COMPARISON: None. DESCRIPTION: COMPLETE ECHOCARDIOGRAM Real-time transthoracic echocardiography with 2D, M-mode, spectral and color flow Doppler performed. QUALITY: Technical quality was limited. 58 , 345#, BSA 2.58 m2 LEFT VENTRICLE: Normal chamber size. Mild concentric left ventricular hypertrophy. Abnormal septal motion likely due to bundle branch block. Normal systolic function. Estimated left ventricular ejection fraction is 60%. LV EF: Normal left ventricular ejection fraction, (>55%). DIASTOLIC: Diastolic function is indeterminate. ATRIAL SEPTUM: Visually appears intact. LEFT ATRIUM: Moderate dilatation. RIGHT ATRIUM: Mild dilatation. RIGHT VENTRICLE: Normal chamber size. Normal right ventricular systolic function. TRICUSPID VALVE: Normal mobility and thickness. No stenosis with no regurgitation. Unable to assess right-sided pressures due to lack of measurable tricuspid regurgitation. MITRAL VALVE: Normal mobility and thickness. No evidence of mitral valve stenosis. There is no mitral annular calcification. No mitral regurgitation. AORTIC VALVE: Normal trileaflet appearance. Mildly reduced leaflet mobility. Mild aortic valve stenosis. Peak velocity 2.4 m/s, mean gradient 10 mmHg. No aortic regurgitation. AORTIC ROOT: Normal diameter and appearance, measuring 3.8 cm. PULMONIC VALVE: Not well visualized. No stenosis. No regurgitation. PERICARDIUM: No evidence of pericardial effusion. IVC: Not well visualized. PLEURA: CONCLUSION: 1. Mild concentric left ventricular hypertrophy with normal systolic function. Estimated LVEF is 60%. 2. Normal right ventricular size and systolic function. 3. Mild to moderate biatrial dilatation. 4. Mild aortic valve stenosis. 5. Unable to assess right-sided pressures due to lack of measurable tricuspid regurgitation. 6. Technically limited study due to poor sound transmission. Adult Echocardiography Procedure Report Left Ventricle LVEDD (3.7 - 5.6 cm): 4.52 cm LVESD (2.2 - 4.0 cm): 3.39 cm LVIVS thickness (0.6 - 1.2 cm): 1.21 cm LVPW thickness (0.5 - 1.0 cm): 1.32 cm e': 0.13 m/s E - e': 6.23 LVOT Max Gradient: 5.76 mm[Hg] LVOT Area (cm2): 1.20 m/s Peak Velocity (LVOT): 1.20 m/s Mean Velocity (LVOT): 0.87 m/s LVOT Diameter 2.49 cm Left Ventricular Ejection Fraction: 60 % Left Atrium LA Volume Index (2D A2C): 37.22 ml/m2 Left Atrium Systolic Dimension: 4.20 cm Mitral Valve MV E to A Ratio: 0.72 Mitral Valve A-Wave Peak Velocity: 1.12 m/s Mitral Valve E-Wave Peak Velocity: 0.80 m/s Right Ventricle Aorta AO Root Diam: 3.82 cm Aortic Valve AoV Area (Peak John): 2.44 cm2, 2.44 cm2 AoV Area (VTI): 3.32 cm2, 3.32 cm2 Peak Velocity(Antegrade Flow): 2.39 m/s Peak Gradient(Antegrade Flow): 22.84 mm[Hg] Mean Velocity(Antegrade Flow): 1.45 m/s Mean Gradient(Antegrade Flow): 9.78 mm[Hg] Velocity Time Integral: 41.25 cm Tricuspid Valve Pulmonic Valve Mean Gradient: 4.36 mm[Hg] Mean Velocity: 0.96 m/s Peak Velocity: 1.50 m/s Peak Gradient: 8.95 mm[Hg] Right Atrium Right Atrium Systolic Pressure: 70.64 ml, 70.64 ml Dictated by: Zhao Galan M.D. on 09/03/2025 at 20:11 Approved by: Zhao Galan M.D. on 09/03/2025 at 20:15
[2025-09-03] MEDS: IMIPENEM/CILASTATIN SODIUM 1,000 MG in 0.9 % SODIUM CHLORIDE 250 ML 250 MG IV ×2 (14:18→22:00)
--- NOTE | 2025-09-03 16:25 | PM.CN ---
Consult Note: [facility] Data of Consult Consult date: 09/03/25 Requesting Physician: Ryan Sifuentes MD Primary Care Provider: Dasia Velez MD Consult Narrative Reason for consult: right diabetic foot infection Narrative: Chu is a 64 year old male with T2DM (a1c >10), obesity, sleep apnea and 40pack year history of smoking who was admitted on 09/01. I was consulted for diabetic foot infection on 09/02 but wasn't notified until today. He relates at bedside that he decided to present to the emergency department due to lack of energy and malaise. He relates to developing right foot ulcer a few weeks ago and noticed redness and swelling beginning to develop a couple days before he presented to the emergency department. He relates to neuropathy and therefore having no pain in his foot. He relates since admission and receiving broad-spectrum antibiotics the edema and erythema have improved. He states at home he was not applying any bandages and was simply leaving the ulcer open to air. He relates to having pets at home therefore explaining the significant amount of hair, dirt and debris on the ulcer bed. On the day of admission he had a leukocytosis of > 18,000, and significant elevation in inflammatory markers. X-rays obtained demonstrated no osseous pathology. Venous ultrasound was negative for DVT. In addition he did have an arterial ultrasound as well. cc:: CC: Ryan Sifuentes MD Review of Systems ROS Status of ROS 10 or more systems reviewed and unremarkable except as noted in history and below [facility] Medical History (Updated 09/03/25 @ 17:20 by Gama Morales DPM) Obesity ?E66.9 - Obesity, unspecified (ICD-10) Obesities, morbid ?E66.01 - Morbid (severe) obesity due to excess calories (ICD-10) Diabetes ?E11.9 - Type 2 diabetes mellitus without complications (ICD-10) Hypertension ?I10 - Essential (primary) hypertension (ICD-10) Surgical History (Updated 09/01/25 @ 15:27 by Sylvia Wright) History of coronary artery stent placement ?Z95.5 - Presence of coronary angioplasty implant and graft (ICD-10) Social History Highest level of school completed/degree received: GED or equivalent Little interest or pleasure in doing things: not at all Feeling down, depressed, or hopeless: not at all Meds Home Medications and Allergies Home Medications ?Medication ?Instructions ?Recorded ?Confirmed ?Type amlodipine 5 mg tablet 5 mg PO DAILY 09/01/25 09/01/25 History aspirin 81 mg tablet 162 mg PO DAILY 09/01/25 09/01/25 History atorvastatin 20 mg tablet 20 mg PO DAILY 09/01/25 09/01/25 History carvedilol 12.5 mg tablet 12.5 mg PO Q12H 09/01/25 09/01/25 History citalopram 20 mg tablet 20 mg PO DAILY 09/01/25 09/01/25 History empagliflozin 25 mg tablet 25 mg PO DAILY 09/01/25 09/01/25 History (Jardiance) glipizide 10 mg tablet, extended 10 mg PO DAILY 09/01/25 09/01/25 History release 24 hr hyoscyamine sulfate 0.375 mg 0.375 mg PO Q12H 09/01/25 09/01/25 History tablet,extended release,12 hr lisinopril 5 mg tablet 5 mg PO Q12H 09/01/25 09/01/25 History nitroglycerin 0.4 mg sublingual 0.4 mg sublingual Q5M PRN chest 09/01/25 09/01/25 History tablet pain omeprazole 40 mg capsule,delayed 40 mg PO DAILY 09/01/25 09/01/25 History release pioglitazone 30 mg tablet 30 mg PO DAILY 09/01/25 09/01/25 History testosterone cypionate 200 mg/mL 150 mg IM .[id number] 09/01/25 09/01/25 History intramuscular oil Allergies Allergy/AdvReac Type Severity Reaction Status Date / Time metformin Allergy Severe Diarrhea Verified 07/23/24 18:44 Exam Narrative Exam Narrative: Skin: 2.5 x 3.8 cm full thickness ulcer on lateral aspect of 5th metatarsal head. Negative probe to bone and no deep soft tissue exposed. Ulcer base is fibrogranular with significant about of pet hair and debris. No pus or fluctuance. Erythema coursing along lateral border of foot and on lateral leg. Neuro: no pain out of proportion. Absent protective and vibratory sensation Vasc: DP is faintly palpable and PT is nonpalpable. Absent pedal hair. Varicose veins noted throughout. MSK:No POP. No fluctuance. Compartments are soft. Able to flex and extend ankle without pain Constitutional Vital Signs, click to edit/add: Last Vital Signs Temp 98.2 F 09/03/25 14:13 Pulse 84 09/03/25 15:59 Resp 14 09/03/25 04:00 BP 142/76 H 09/03/25 14:13 Pulse Ox 98 09/03/25 14:13 O2 Del Method Nasal Cannula 09/03/25 14:13 O2 Flow Rate 3 09/03/25 14:13 FiO2 40 09/03/25 09:17 Results Labs Labs: Short CBC 09/03/25 Range/Units 05:02 WBC 10.4 (4.0-11.0) 10^3/uL Hgb 14.4 (14.0-18.0) g/dL Hct 43.6 (42.0-54.0) % Plt Count 171 (150-450) 10^3/uL BMP 09/03/25 05:02 Sodium 137 Potassium 4.7 Chloride 102 Carbon Dioxide 28.8 BUN 26.0 H Creatinine 1.22 Glucose 100 Calcium 8.4 L Liver Function 09/03/25 Range/Units 05:02 Total Bilirubin 0.8 (0.2-1.0) mg/dL AST 28 (15-37) U/L ALT 25 (16-63) U/L Alkaline Phosphatase 70 (46-116) U/L Albumin 3.0 L (3.4-5.0) g/dL ABG ABG results: 09/02/25 09/02/25 09/02/25 11:48 17:05 22:00 ABG pH 7.294 L* 7.279 L* 7.344 L ABG pCO2 50.6 H* 54.3 H* 48.1 H ABG pO2 82.2 72.0 L 93.2 ABG HCO3 24.5 25.4 26.2 H ABG O2 Saturation 97.0 95.2 98.4 ABG Base Excess -2.0 -1.3 0.5 Assessment and Plan Assessment and Plan (1) Cellulitis: Qualifiers: Site of cellulitis: extremity Site of cellulitis of extremity: lower extremity Laterality: right Qualified Code(s): L03.115 - Cellulitis of right lower limb (2) Sepsis: (3) Hypoxic respiratory failure: (4) Ulcer of right foot with fat layer exposed: Plan Patient seen and evaluated. Patient education provided and all questions answered. I emphasized the importance of better hygiene and encouranged him to shower and wash is feet thoroughly with soap and water. No soaking or submerging under water. Santyl ordered and is to be applied daily after ulcer is clean. Then cover with dry dressing (large band-aide or 4x4 gauze with paper tape) - no LAURA wraps or circumferential dressings given PAD. Arterial Doppler official report pending. Clinical findings are consistent with cellulitis and there is no evidence of abscess on examination therefore I recommend nonsurgical wound care with enzymatic debridement until adequate arterial flow is determined. Continue vancomycin while in inpatient and upon discharge patient may be discharged home on oral Augmentin 875 and Bactrim DS BID or as recommended by the hospitalist. Patient should f/u in the wound center (on Wednesday or Wednesday) next week with me.
[2025-09-03] MEDS: INSULIN ASPART 300 UNIT/3 ML PEN SUBQ ×2 (17:39→22:02)
[2025-09-03] MEDS: COLLAGENASE CLOSTRIDIUM HIST. 250 UNITS/GM 30 GRAM TUBE 1 APPLIC TOPICAL (18:07)
[2025-09-03] MEDS: 0.9 % SODIUM CHLORIDE 250 ML 10 ML IV (22:01)
[2025-09-04] VITALS (22 sets, daily range): BP systolic 115–160; BP diastolic 71–89; PULSE 64–102; RESP 14; TEMP 36.4–36.6; O2SAT 92–96
[2025-09-04] MEDS: IMIPENEM/CILASTATIN SODIUM 1,000 MG in 0.9 % SODIUM CHLORIDE 250 ML 250 MG IV ×3 (06:12→22:17)
[2025-09-04] MEDS: ASPIRIN 81 MG TABLET.DR 162 MG PO (09:11)
[2025-09-04] MEDS: ENOXAPARIN SODIUM 40 MG/0.4 ML SYRINGE SUBQ ×2 (09:11→22:17)
[2025-09-04] MEDS: ATORVASTATIN CALCIUM 20 MG TABLET PO (09:11)
[2025-09-04] MEDS: PANTOPRAZOLE SODIUM 40 MG TABLET.DR PO (09:11)
[2025-09-04] MEDS: AMLODIPINE BESYLATE 5 MG TABLET PO (09:11)
[2025-09-04] MEDS: CARVEDILOL 12.5 MG TABLET PO ×2 (09:11→22:17)
[2025-09-04] MEDS: SENNOSIDES/DOCUSATE SODIUM 1 TAB TABLET PO (09:12)
[2025-09-04] MEDS: LISINOPRIL 5 MG TABLET PO (09:12)
[2025-09-04] MEDS: COLLAGENASE CLOSTRIDIUM HIST. 250 UNITS/GM 30 GRAM TUBE 1 APPLIC TOPICAL (09:12)
[2025-09-04] MEDS: GLIPIZIDE 5 MG TABLET PO ×2 (09:12→16:09)
[2025-09-04] MEDS: CITALOPRAM HYDROBROMIDE 20 MG TABLET PO (09:12)
[2025-09-04] MEDS: VANCOMYCIN HCL 2,000 MG in 0.9 % SODIUM CHLORIDE 500 ML 250 MG IV (09:13)
--- NOTE | 2025-09-04 09:22 | PM.IMPN1 ---
Progress Note: A&P Assessment and Plan (1) Cellulitis: Qualifiers: Laterality: right Site of cellulitis: extremity Site of cellulitis of extremity: lower extremity Qualified Code(s): L03.115 - Cellulitis of right lower limb (2) Sepsis: (3) Hypoxic respiratory failure: (4) Ulcer of right foot with fat layer exposed: Plan 09/04/25 - weaned off of supplemental O2, echocardiogram unable to determine R heart pressures. Awaiting DUSTIN and blood culture finalization, plan for augmentin and bactrim on d/c if negative. 09/03/25 - Leukocytosis continues to improve, 10.4 today however still on high flow nasal cannula, weaned to 3 L later in day but unclear etiology of hypoxia, presumed 2/[address] scan negative for PE or acute pathology. Will follow-up echo for potential pulmonary hypertension. DVT ultrasound as well as bilateral DUSTIN, podiatry consultation pending. Continue broad-spectrum antibiotics follow-up blood cultures. From 09/02/25: Sepsis present on admission. Elevated white count at 18,000, elevated CRP at 2.1 Suspected source is right infected foot ulcer with foot cellulitis. Could not exclude the possibility of urinary tract infection or developing lung infection. Please refer to initial sepsis evaluation and treatment initiated in the emergency room department. Continue IV fluid infusion. Continue antibiotic. Broad-spectrum Requested UA. Lactic acid is normal. Blood cultures pending. Leg foot cellulitis, stage 2 at least ulcer involving the lateral aspect of the right fifth distal metatarsal Bilateral venous stasis. Could not exclude venous thrombosis Faint dorsalis pedis pulse. Rule out peripheral vascular disease Broad-spectrum antibiotic Blood cultures pending. Faint dorsalis pedis pulse. Requested arterial study. Edema in both legs requested venous study rule out DVT The ulcer is dry and the entire foot is dirty therefore could not get wound culture May need additional imaging of the foot such as CT or MRI Requested podiatry consultation. Defer further needed diagnostic and therapeutic intervention relative to foot infection and the timing of these intervention to be addressed by regional transportation manager. Hypoxic respiratory failure. Obstructive sleep apnea. Patient is not compliant with CPAP machine at home according to him and his . His now is using the CPAP. Prominent right hilum, cannot exclude hilar mass Suspect underlying pulmonary hypertension, restrictive and obstructive pulmonary disease Patient denies feeling short of breath therefore I suspect that his hypoxemia is chronic. Patient is morbidly obese with significant increased abdominal girth suspecting restrictive lung disease. Patient had smoked for 20 years in the past. Suspect underlying obstructive pulmonary disease Patient lives a sedentary life. He has bilateral legs swelling. Could not exclude the possibility of PE Requested D-dimer. If positive proceed with CTA of the chest. If negative proceed with a CT chest with contrast to rule out hilar mass. Venous study rule out DVT. Oxygen supplementation. Ordering CPAP to be used while patient in the hospital. Requested echocardiogram rule out pulmonary hypertension. Arrange for patient to have CPAP machine at home as his machine had been recalibrated to be used by his . Diabetes with hyperglycemia, recent A1c completed 2 months ago it was 10.2. Other has not taken his medications or his medications are suboptimal. Started patient on sliding scale coverage. Started patient on long and meal insulin. Titrate to keep blood sugar between 125 and 180. Diet and diabetes. Hypertension Resume preadmission home medications Hyperkalemia Peaked T waves. Patient had received 1 dose of Lokelma. Started him on insulin Avoid spironolactone. Potassium level is down to normal. Morbid obesity. Patient weighs 155 kg and the BMI is 51. Diet, exercise and lifestyle modification to be addressed in the outpatient setting. DVT prophylaxis Due to his weight, 150 kg I would put him on Lovenox 40 mg subcutaneously twice a day. Chronic, subacute medical conditions not listed above, abnormal labs and imaging, incidental findings seen on labs and or imaging. These would need to be addressed. Could be addressed later on or in the outpatient setting by PCP collaboration with other needed outpatient providers when time and condition are appropriate. Internal Medicine - PN: Subj Subjective Interval history: Weaned off of supplemental O2, evaluated by podiatry yesterday. No complaints today. Exam Narrative Exam Narrative: General: cooperative and tired appearing Orientation: alert, awake and oriented x3 Head: normal to inspection Neck: normal visual inspection Cardio: no JVD, regular rate, regular rhythm Chest palpation & inspection: normal inspection of the chest Resp Effort & Inspection: distant breath sounds Abd: soft, non-tender, non-distended Extremities: RLE lateral foot ulcer, faint palpable DP pulse, non-palpable PT Constitutional Vital Signs, click to edit/add: Last Vital Signs Temp 97.6 F 09/04/25 07:24 Pulse 72 09/04/25 08:00 Resp 18 09/04/25 07:24 BP 156/78 H 09/04/25 07:24 Pulse Ox 93 L 09/04/25 07:24 O2 Del Method Nasal Cannula 09/04/25 07:24 O2 Flow Rate 1 09/04/25 07:24 FiO2 40 09/04/25 00:29 Internal Medicine - PN: Obj Da Labs Labs: Laboratory Results - last 24 hr 09/03/25 09/03/25 09/03/25 11:42 15:52 21:01 Vancomycin Trough POC Glucose 107 H 149 H 210 H 09/04/25 09/04/25 08:03 08:04 Vancomycin Trough 7.8 POC Glucose 108 H
[2025-09-04 09:28] LABS: Hematocrit 40.2 % (42.0-54.0); Hemoglobin 13.4 g/dL (14.0-18.0); Immature Granulocytes Abs Auto 0.02 10^3/uL (0.00-0.03); Immature Granulocytes Pct Auto 0.3 % (0.0-0.5); Lymphocytes Absolute Auto 1.2 10^3/uL (1.2-3.8); Mean Corpuscular HGB Conc 33.3 g/dL (29.9-35.2); Mean Corpuscular Hemoglobin 26.5 pg (25.9-34.0); Mean Corpuscular Volume 79.4 fL (80.0-94.0); Platelet Count 170 10^3/uL (150-450); Red Blood Count 5.06 10^6/uL (4.70-6.10); White Blood Count 7.6 10^3/uL (4.0-11.0)
[2025-09-04 09:34] LABS: Anion Gap 14.7; Blood Urea Nitrogen 20.0 mg/dL (7.0-18.0); Calcium 7.9 mg/dL (8.5-10.1); Carbon Dioxide 25.5 mmol/L (21.0-32.0); Chloride 104 mmol/L (98-107); Estimated GFR (African America >60 (>=60 mL/min/1.73m^2); Estimated GFR (Non-African Ame >60 (>=60 mL/min/1.73m^2); Glucose 106 mg/dL (74-106); Potassium 4.2 mmol/L (3.5-5.1); Sodium 140 mmol/L (136-145)
--- NOTE | 2025-09-04 11:02 | CT_ITS ---
The [address] [address] Patient Name: JOHNATHAN AMBROSIO MRN: [id number] date: 1960 Sex: M Assigned Patient Location: [place] Current Patient Location: Accession/Order Number: [id number] Exam Date: 09/04/2025 11:00 Report Date: 09/04/2025 12:39 At the request of: EVELIO BARNETT MD Procedure: CT abdomen pelvis wo con CT ABDOMEN AND PELVIS WITHOUT CONTRAST COMPARISON: 07/23/2024 CLINICAL DATA: Abdominal fullness and bloating. Previous bowel obstruction. Spiral axial unenhanced images were obtained through the abdomen and pelvis. This CT exam was performed using one or more following dose reduction techniques: Automated exposure control, adjustment of the mA and/or kV according to patient size, or use of iterative reconstruction technique. Limited cuts through the lung bases show no contributory findings. Assessment of the intra-abdominal organs is slightly limited by the absence of contrast. There is also artifact and portions of the abdomen not fully included due to patient's body habitus and centering on exam. There is minor cholelithiasis, without pericholecystic inflammation. The dome of the liver is not included in its entirety. A subtle hypodensity is again visualized at the right hepatic dome, similar in size to the prior though not completely evaluated on this unenhanced study. The visualized portions the spleen as well as the pancreas and adrenal glands show no acute findings. There is mild bilateral perinephric fibrofatty stranding. There is renovascular disease. There are no definite renal stones. No hydronephrosis is identified. There is atherosclerotic plaque involving the aorta, iliac and visceral arteries. There is no pathologic lymphadenopathy or ascites. There is food debris within the stomach. The small bowel loops are normal caliber. Mild stool is present along the colon. Mild degenerative changes are seen at the spine. Images through the pelvis show normal caliber small bowel loops. No appendiceal inflammation is seen. The rectosigmoid colon is decompressed. No diverticular disease is noted. There is an umbilical hernia containing fat. The prostate is not significantly enlarged though it does contain calcifications. No urinary bladder abnormalities are seen. There is no ascites. CT/CT abdomen pelvis wo con IMPRESSION: SIMILAR INDETERMINANT RIGHT HEPATIC HYPODENSITY. CHOLELITHIASIS. NO BOWEL OR URINARY TRACT OBSTRUCTION. UMBILICAL HERNIA CONTAINING FAT. NO ACUTE FINDINGS. Impression dictated by: Manasa John M.D. 09/04/2025 12:39 PM Dictation Location: [employer] Electronically authenticated by: [id number] Y Date: 09/04/2025 12:39
--- NOTE | 2025-09-04 11:58 | CM.NOTE ---
Rounds made with Dr. Acosta, discussed plan of care with pt. Podiatry saw patient yesterday. No surgical intervention needed. No discharge today. Continue treatment as ordered.
[2025-09-04] MEDS: INSULIN ASPART 300 UNIT/3 ML PEN SUBQ (12:14)
[2025-09-04] MEDS: POLYETHYLENE GLYCOL 3350 17 GM POWDER PACKET PO (16:16)
[2025-09-05] VITALS (12 sets, daily range): BP systolic 134–168; BP diastolic 85–92; PULSE 67–88; TEMP 36.5–36.7; O2SAT 92–95
[2025-09-05] MEDS: VANCOMYCIN HCL 2,000 MG in 0.9 % SODIUM CHLORIDE 500 ML 250 MG IV (01:44)
[2025-09-05] MEDS: ACETAMINOPHEN 325 MG TABLET 650 MG PO (03:35)
[2025-09-05] MEDS: 0.9 % SODIUM CHLORIDE 250 ML 10 ML IV (05:09)
[2025-09-05] MEDS: IMIPENEM/CILASTATIN SODIUM 1,000 MG in 0.9 % SODIUM CHLORIDE 250 ML 250 MG IV ×2 (05:09→13:24)
[2025-09-05 05:34] LABS: Hematocrit 42.9 % (42.0-54.0); Hemoglobin 13.9 g/dL (14.0-18.0); Immature Granulocytes Abs Auto 0.03 10^3/uL (0.00-0.03); Immature Granulocytes Pct Auto 0.4 % (0.0-0.5); Lymphocytes Absolute Auto 1.1 10^3/uL (1.2-3.8); Mean Corpuscular HGB Conc 32.4 g/dL (29.9-35.2); Mean Corpuscular Hemoglobin 25.4 pg (25.9-34.0); Mean Corpuscular Volume 78.3 fL (80.0-94.0); Platelet Count 213 10^3/uL (150-450); Red Blood Count 5.48 10^6/uL (4.70-6.10); White Blood Count 7.3 10^3/uL (4.0-11.0)
[2025-09-05 05:49] LABS: Anion Gap 12.3; Blood Urea Nitrogen 14.0 mg/dL (7.0-18.0); Calcium 8.5 mg/dL (8.5-10.1); Carbon Dioxide 26.8 mmol/L (21.0-32.0); Chloride 104 mmol/L (98-107); Estimated GFR (African America >60 (>=60 mL/min/1.73m^2); Estimated GFR (Non-African Ame >60 (>=60 mL/min/1.73m^2); Glucose 144 mg/dL (74-106); Potassium 4.1 mmol/L (3.5-5.1); Sodium 139 mmol/L (136-145)
[2025-09-05] MEDS: POLYETHYLENE GLYCOL 3350 17 GM POWDER PACKET PO (09:10)
[2025-09-05] MEDS: GLIPIZIDE 5 MG TABLET PO (09:11)
[2025-09-05] MEDS: ENOXAPARIN SODIUM 40 MG/0.4 ML SYRINGE SUBQ (09:11)
[2025-09-05] MEDS: ASPIRIN 81 MG TABLET.DR 162 MG PO (09:11)
[2025-09-05] MEDS: SENNOSIDES/DOCUSATE SODIUM 1 TAB TABLET PO (09:11)
[2025-09-05] MEDS: ATORVASTATIN CALCIUM 20 MG TABLET PO (09:11)
[2025-09-05] MEDS: LISINOPRIL 5 MG TABLET PO (09:11)
[2025-09-05] MEDS: CITALOPRAM HYDROBROMIDE 20 MG TABLET PO (09:11)
[2025-09-05] MEDS: PANTOPRAZOLE SODIUM 40 MG TABLET.DR PO (09:11)
[2025-09-05] MEDS: CARVEDILOL 12.5 MG TABLET PO (09:11)
[2025-09-05] MEDS: AMLODIPINE BESYLATE 5 MG TABLET PO (09:11)
[2025-09-05] MEDS: COLLAGENASE CLOSTRIDIUM HIST. 250 UNITS/GM 30 GRAM TUBE 1 APPLIC TOPICAL (09:12)
[2025-09-05] MEDS: INSULIN ASPART 300 UNIT/3 ML PEN SUBQ ×2 (09:13→12:09)
--- NOTE | 2025-09-05 10:05 | CM.NOTE ---
Rounds made with Dr. Ballard, discussed plan of care with pt. Pt will discharge to home today. Pt will f/u with PCP and Dr. Morales.
--- NOTE | 2025-09-05 13:04 | PM.DS1 ---
DS: Providers Provider Date of admission: 09/01/25 15:09 Primary care physician: Dasia Velez MD Consults: 09/02/25 10:46 Consult to Podiatry Routine Consulting Provider: Gama Morales Reason for consultation: Foot ulcer DS: Diagnosis Discharge Diagnosis (1) Cellulitis: Qualifiers: Laterality: right Site of cellulitis: extremity Site of cellulitis of extremity: lower extremity Qualified Code(s): L03.115 - Cellulitis of right lower limb (2) Sepsis: (3) Hypoxic respiratory failure: (4) Ulcer of right foot with fat layer exposed: Plan as above DS: Summary Hospital Course Hospital Course: Mr. Correa is a 64-year-old gentleman who came to the emergency room not feeling well. Nonspecific symptoms such as fatigue, weakness, loss of energy. Minimal cough. No chest pain or palpitation. No abdominal pain. Patient reported having shortness of breath. No hematemesis or melena. Patient reported having progressive right foot ulcer Over the last 2 weeks. Patient reported that the foot is red and swollen. Patient reported that he has sleep apnea but does not use his CPAP machine. Patient was diagnosed with sepsis on admission secondary to right infected diabetic foot ulcer with cellulitis. Patient was started on IV antibiotics on admission with improvement in his clinical status, remained afebrile, WBC has been downtrending and normalized. Blood cultures remain negative to date. Patient underwent vascular studies which showed moderate to severe PVD, venous Doppler was done today to rule out DVT. Patient remained on broad-spectrum antibiotics while here with improvement in his clinical status, he has been successfully weaned off the oxygen as well. As of today, patient remained hemodynamically stable, he was transitioned to oral antibiotics to complete course of treatment. Discussed with patient at bedside, all question answered, advised to continue to follow-up with podiatry as outpatient. should he has issues with his right foot wound healing process, advised to follow-up with his PCP to be referred to vascular team for further evaluation and management to improve the circulation in his lower extremities. At this time, patient is eager to go home since its new year and feels stable enough to go home. Discussed with patient at bedside, all question answered, patient in agreement comfortable discharge plan at this time. Patient has multiple complex medical issues as listed above and others that are not listed. All appear to be stable at this time. Patient is feeling significantly better and feeling comfortable with this plan of discharge. I do not have any clear or strong clinical justification to extend inpatient hospitalization. Patient however will require close and the frequent monitoring as well as additional work-up, investigation and therapeutic intervention that could take place from this point on post discharge. That is to prevent relapse, decompensation, rehospitalization and other medical implications. Outpatient follow up as directed for continuity of care. Verbal and written discharge instructions will be provided to the patient. Time Spent with Patient Time attestation: Total time spent providing and/or coordinating discharge services: Time spent: greater than 30 minutes Exam Narrative Exam Narrative: General: cooperative and comfortable appearing Orientation: alert, awake and oriented x3 Head: normal to inspection Neck: normal visual inspection Cardio: no JVD, regular rate, regular rhythm Chest palpation & inspection: normal inspection of the chest Resp Effort & Inspection: distant breath sounds Abd: soft, non-tender, non-distended Extremities: RLE lateral foot ulcer, Constitutional Vital Signs, click to edit/add: Last Vital Signs Temp 97.7 F 09/05/25 11:50 Pulse 78 09/05/25 11:50 Resp 18 09/05/25 11:50 BP 134/86 09/05/25 11:50 Pulse Ox 94 L 09/05/25 11:50 O2 Del Method Room Air 09/05/25 11:50 O2 Flow Rate 1 09/04/25 09:29 FiO2 40 09/04/25 00:29 DS: Data Data Completed and Pending Labs on day of discharge: Labs from last 24 hours 09/05/25 09/05/25 09/05/25 11:35 07:51 05:16 WBC 7.3 RBC 5.48 Hgb 13.9 L Hct 42.9 MCV 78.3 L MCH 25.4 L MCHC 32.4 RDW 15.3 H Plt Count 213 MPV 10.6 Neut % (Auto) 71.4 Lymph % (Auto) 14.4 L [place] % (Auto) 8.3 Eos % (Auto) 5.1 Baso % (Auto) 0.4 Neut # (Auto) 5.2 Lymph # (Auto) 1.1 L [place] # (Auto) 0.6 Eos # (Auto) 0.4 Baso # (Auto) 0.0 Abs Immat Gran (auto) 0.03 Imm/Tot Granulo (auto) 0.4 Sodium 139 Potassium 4.1 Chloride 104 Carbon Dioxide 26.8 Anion Gap 12.3 BUN 14.0 Creatinine 0.85 Est GFR ( Amer) >60 Est GFR (Non-Af Amer) >60 BUN/Creatinine Ratio 16.5 Glucose 144 H Calcium 8.5 POC Glucose 144 H 168 H 09/04/25 09/04/25 21:19 16:10 WBC RBC Hgb Hct MCV MCH MCHC RDW Plt Count MPV Neut % (Auto) Lymph % (Auto) [place] % (Auto) Eos % (Auto) Baso % (Auto) Neut # (Auto) Lymph # (Auto) [place] # (Auto) Eos # (Auto) Baso # (Auto) Abs Immat Gran (auto) Imm/Tot Granulo (auto) Sodium Potassium Chloride Carbon Dioxide Anion Gap BUN Creatinine Est GFR ( Amer) Est GFR (Non-Af Amer) BUN/Creatinine Ratio Glucose Calcium POC Glucose 123 H 113 H Preliminary micro results at discharge 09/01/25 12:55 Blood Culture Result 2 - Preliminary Blood NO GROWTH AT 4 DAYS. 09/01/25 12:50 Blood Culture Result 1 - Preliminary Blood NO GROWTH AT 4 DAYS. Discharge Plan Discharge Disposition: Home, Self-Care Condition: Fair Discharge Medications: New amoxicillin-pot clavulanate 875-125 mg tablet 1 tab PO Q12H 7 Days Qty: 14 0RF Continued atorvastatin 20 mg tablet 20 mg PO DAILY carvedilol 12.5 mg tablet 12.5 mg PO Q12H glipizide 10 mg tablet extended release 24hr 10 mg PO DAILY amlodipine 5 mg tablet 5 mg PO DAILY omeprazole 40 mg capsule,delayed release(DR/EC) 40 mg PO DAILY citalopram 20 mg tablet 20 mg PO DAILY hyoscyamine sulfate 0.375 mg tablet extended release 12 hr 0.375 mg PO Q12H nitroglycerin 0.4 mg tablet, sublingual 0.4 mg sublingual Q5M PRN (Reason: chest pain) lisinopril 5 mg tablet 5 mg PO Q12H testosterone cypionate 200 mg/mL oil 150 mg IM .[id number] pioglitazone 30 mg tablet 30 mg PO DAILY Jardiance 25 mg tablet 25 mg PO DAILY aspirin 81 mg tablet 162 mg PO DAILY Activity: increase activity as tolerated Diet: advance to your usual diet Print Language: [place] Patient Instructions: Amoxicillin (By mouth), Cellulitis (ED), Acute Respiratory Failure (ED) Forms: Portal Instructions Follow Up Appointments: Follow up appts with Dr. Velez and Dr. Morales will be made for you and someone from [facility] will call you with those dates and times. Discharge Date/Time: 09/05/25 15:18
--- NOTE | 2025-09-07 10:23 | PC.NURSE ---
Follow up appt with Dr. Velez 09/13 @ 8:30am
--- NOTE | 2025-09-07 10:40 | PC.NURSE ---
Follow up appt[facility] with [facility] 09/11 @ 9am Follow up appt. with Dr. Velez 09/13 @ 8:30am
--- NOTE | 2025-09-07 14:18 | CM.DCFOLLOWU ---
Person spoke with:Chu How are you feeling? Much better How is your pain? No pain Did you understand your discharge instructions? Yes Do you have any questions about your discharge instructions? No Were you given any prescriptions at discharge? Yes Were you able to get your prescriptions filled? Yes Do you understand how to take your medications as ordered? Yes Do you have any questions about your follow up appointment and do you plan to keep your follow up appointment? No questions. Pt was scheduled for an appt with the wound clinic on 09/[address] Velez's office 09/13 at 8:30 am. Is there anything else that you would like to discuss? No Questions/Comments/Concerns/Other:
== END 2025-09-05 15:18 | disposition home or self-care (01) | DRG 871 ==
LOC: ER 13:56 → MS 15:16
PROVIDERS: Student in an Organized Health Care Education/Training Program; Admitting Provider Internal Medicine; Emergency Provider Student in an Organized Health Care Education/Training Program; PCP Family Medicine; Visit Provider Internal Medicine
DX: A41.89 Other specified sepsis (principal); J96.91 Respiratory failure, unspecified with hypoxia; L03.115 Cellulitis of right lower limb; Z68.43 Body mass index [BMI] 50.0-59.9, adult; E11.621 Type 2 diabetes mellitus with foot ulcer; E11.628 Type 2 diabetes mellitus with other skin complications; E11.65 Type 2 diabetes mellitus with hyperglycemia; G47.33 Obstructive sleep apnea (adult) (pediatric); L97.512 Non-pressure chronic ulcer of other part of right foot with fat layer exposed; E87.5 Hyperkalemia; E11.51 Type 2 diabetes mellitus with diabetic peripheral angiopathy without gangrene; I10 Essential (primary) hypertension; I27.20 Pulmonary hypertension, unspecified; J44.9 Chronic obstructive pulmonary disease, unspecified; I87.2 Venous insufficiency (chronic) (peripheral); E66.01 Morbid (severe) obesity due to excess calories; Z91.199 Patient's noncompliance with other medical treatment and regimen due to unspecified reason; Z95.5 Presence of coronary angioplasty implant and graft; Z79.84 Long term (current) use of oral hypoglycemic drugs; Z79.899 Other long term (current) drug therapy; F17.210 Nicotine dependence, cigarettes, uncomplicated
CPT/HCPCS: 36415; 36600; 51798; 71045; 71260; 73630; 74176; 80048; 80053; 80202; 81001; 82805; 82948; 83605; 83735; 83880; 84100; 84132; 84443; 84484; 85007; 85025; 85027; 85378; 86140; 87040; 87804; 87811; 93005; 93306; 93925; 93970; 94660; 94761; 94799; 96365; 99285; J0743; J1650; J3373; Q9967